=== PATIENT | female | born 1940 | race Caucasian/White ===

== ENCOUNTER 2023-06-27 13:03 | Outpatient (AMB) | payer MEDICARE, SELFPAY ==
[2023-06-27 13:31] LABS: Prothrombin Time Whole Bld POC 55.3 sec (11.1-13.5); ~PT, ~INR - Anti Coag Clinic 4.6 (0.9-1.1)
--- NOTE | 2023-06-27 13:38 | MHC.OFFVISCO ---
Intake Intake Visit Reasons: Anticoagulation Allergies No Known Allergies Allergy (Verified 06/27/23 13:11) Medication List - Last Reconciled 06/27/23 by Marjorie Suazo RN cholecalciferol (vitamin D3) 50 mcg PO DAILY clonazepam 0.5 mg PO BID PRN dextroamphetamine-amphetamine 30 mg 1 tab PO DAILY lisinopril 10 mg PO BID warfarin 5 mg PO Q OTHER DAY 90 days warfarin (Jantoven) 1MG TAB 4MG MWF/ 3MG X 4 DAYS orally every other day; Nursing Note unable to spend the complete amt of time with pt due to EMR chart complications INR 4.6 out of therapeutic range Medications and supplements reviewed Patient status: PT STATED that she adjusted her own dose to have INR closer to 3.0 she took a few days of 4mg instead of 3mg - she was advised to follow [facility] dosing. discrepency with dosing - In reviewing her chart order states she was taking 2mg several days and 3mg the others but dosing not complete on order either - pt just left clinic after visit was completed - t/c to pt to call [facility] back [facility] to discuss dosing - she stated she was concerned about INR being too low -- will suggest 3mg daily attempt to call pt x 3 and no answer will call her again friday to verify dosing that she took and what md gave Medications or supplements: updated states she has a 1 mg warfarin dose Diet: good - has diet confused which effects the INR Denies any signs and symptoms of bleeding or clotting or unusual bruising Bleeding, bruising, clotting discussed Nutritional guidance given: food list reviewed Dose: hold today then 3mg daily f/u 1 week - pt dosing sheet states 2mg x 2 days/ 4mg x 5 days - going by what she stated she was taking -and that is not congruent with what md referral states F/U INR Date : 1 week ?? Patient verbalizing understanding of instructions given. Anti-Coag Initial Assessment Social Hx Patient Tobacco Use Status: Never used Tobacco alcohol intake: never Coding Level of Care Code Est Patient Level 1 Diagnoses Current use of anticoagulant therapy Z79.01 Assessment & Plan Assessment & Plan (1) Current use of anticoagulant therapy: Code(s): Z79.01 - intermediate (current) use of 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 Medications: New warfarin See Protocol 1 mg orally 4MG X 4 DAYS/ 3MG X 3 DAYS; Discontinued warfarin on odd numbered days Discontinued Reason: Patient Completed Course 5 mg PO Q OTHER DAY 90 days 45 tabs 3RF
== END 2023-06-27 16:44 | disposition home or self-care (01) ==
LOC: HO.ACS 13:03
PROVIDERS: PCP Nurse Practitioner Acute Care; Visit Provider Internal Medicine
DX: Z79.01 Long term (current) use of anticoagulants (principal)

== ENCOUNTER → 2023-06-27 13:03 | Outpatient (BNVA) | payer MEDICARE, SELFPAY | PROVIDERS: PCP Nurse Practitioner Acute Care; Visit Provider Internal Medicine | DX: Z95.2 Presence of prosthetic heart valve (principal); Z51.81 Encounter for therapeutic drug level monitoring; Z79.01 Long term (current) use of anticoagulants | CPT/HCPCS: 85610; 99211 ==

== ENCOUNTER 2023-07-02 13:13 | Outpatient (AMB) | payer MEDICARE, SELFPAY ==
--- NOTE | 2023-07-02 13:16 | MHC.OFFVISCO ---
Intake Intake Visit Reasons: Anticoagulation Allergies No Known Allergies Allergy (Verified 07/02/23 13:16) Medication List - Last Reconciled 07/02/23 by Yris Hardy, RN cholecalciferol (vitamin D3) 50 mcg PO DAILY clonazepam 0.5 mg PO BID PRN dextroamphetamine-amphetamine 30 mg 1 tab PO DAILY lisinopril 10 mg PO BID warfarin See Protocol 1 mg orally 4MG X 4 DAYS/ 3MG X 3 DAYS; Nursing Note PT.DENIES ANY CP,SOB,DIET/MED CHANGES,FALLS OR SX OF BLEEDING. WILL CONTINUE 4MGM X3 3MGM X4 AND FOLLOW-UP IN 1 WEEK WILL BE SURE TO HAVE GREENS 2-3X WEEKLY GOOD UNDERSTANDING OF DOSING INSTR. 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
[2023-07-02 13:27] LABS: Prothrombin Time Whole Bld POC 34.9 sec (11.1-13.5); ~PT, ~INR - Anti Coag Clinic 2.9 (0.9-1.1)
== END 2023-07-02 13:45 | disposition home or self-care (01) ==
LOC: HO.ACS 13:13
PROVIDERS: PCP Nurse Practitioner Acute Care; Visit Provider Internal Medicine
DX: Z79.01 Long term (current) use of anticoagulants (principal)

== ENCOUNTER → 2023-07-02 13:13 | Outpatient (BNVA) | payer MEDICARE, SELFPAY | PROVIDERS: PCP Nurse Practitioner Acute Care; Visit Provider Internal Medicine | DX: Z95.2 Presence of prosthetic heart valve (principal); Z51.81 Encounter for therapeutic drug level monitoring; Z79.01 Long term (current) use of anticoagulants | CPT/HCPCS: 85610; 99211 ==

== ENCOUNTER 2023-07-10 11:10 | Outpatient (AMB) | payer MEDICARE, SELFPAY ==
[2023-07-10 11:19] LABS: ~PT, ~INR - Anti Coag Clinic 3.7 (0.9-1.1)
--- NOTE | 2023-07-10 11:19 | MHC.OFFVISCO ---
Intake Intake Visit Reasons: Anticoagulation Allergies No Known Allergies Allergy (Verified 07/10/23 11:10) Medication List - Last Reconciled 07/10/23 by Marjorie Suazo RN cholecalciferol (vitamin D3) 50 mcg PO DAILY clonazepam 0.5 mg PO BID PRN dextroamphetamine-amphetamine 30 mg 1 tab PO DAILY lisinopril 10 mg PO BID warfarin See Protocol 1 mg orally 4MG X 4 DAYS/ 3MG X 3 DAYS; Nursing Note INR 3.7?? out of therapeutic range Medications and supplements reviewed Patient status: Has med changes coming to bring med list next visit Medications or supplements: chk med list next week Diet: good Denies any signs and symptoms of bleeding or clotting or unusual bruising Bleeding, bruising, clotting discussed Nutritional guidance given: eat greens today then eat a mix of fruits and vegetables Dose: decrease to 2mg today, the 3mg x 6 days/ 4mg x 1 day F/U INR Date : 1 week ?? Patient verbalizing understanding of instructions given. Anti-Coag Initial Assessment Social Hx Patient Tobacco Use Status: Never used Tobacco alcohol intake: never Coding Level of Care Code Est Patient Level 1 Diagnoses Current use of anticoagulant therapy Z79.01 Assessment & Plan Assessment & Plan (1) Current use of anticoagulant therapy: Code(s): Z79.01 - halfway (current) use of 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
== END 2023-07-10 11:42 | disposition home or self-care (01) ==
LOC: HO.ACS 11:10
PROVIDERS: PCP Nurse Practitioner Acute Care; Visit Provider Internal Medicine
DX: Z79.01 Long term (current) use of anticoagulants (principal)

== ENCOUNTER → 2023-07-10 11:10 | Outpatient (BNVA) | payer MEDICARE, SELFPAY | PROVIDERS: PCP Nurse Practitioner Acute Care; Visit Provider Internal Medicine | DX: Z95.2 Presence of prosthetic heart valve (principal); Z51.81 Encounter for therapeutic drug level monitoring; Z79.01 Long term (current) use of anticoagulants | CPT/HCPCS: 85610; 99211 ==

== ENCOUNTER 2023-07-18 14:00 | Outpatient (AMB) | payer MEDICARE, SELFPAY ==
--- NOTE | 2023-07-18 14:12 | MHC.OFFVISCO ---
Intake Intake Visit Reasons: Anticoagulation Allergies No Known Allergies Allergy (Verified 07/18/23 14:05) Medication List - Last Reconciled 07/18/23 by Sylwia Molina RN cholecalciferol (vitamin D3) 50 mcg PO DAILY clonazepam 0.5 mg PO BID PRN dextroamphetamine-amphetamine 30 mg 1 tab PO DAILY lisinopril 10 mg PO BID warfarin See Protocol 1 mg orally 4MG X 4 DAYS/ 3MG X 3 DAYS; Nursing Note INR: 2.5- in therapeutic range of 2-3 Medications and supplements reviewed- states dextroamphetamine amphetamine is long acting- will call acs with mg medications reviewed with pt No changes in health, diet, medications, or supplements, Denies any signs and symptoms of bleeding or bruising or clotting. 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
[2023-07-18 14:13] LABS: Prothrombin Time Whole Bld POC 29.8 sec (11.1-13.5); ~PT, ~INR - Anti Coag Clinic 2.5 (0.9-1.1)
== END 2023-07-18 14:33 | disposition home or self-care (01) ==
LOC: HO.ACS 14:00
PROVIDERS: PCP Internal Medicine Cardiovascular Disease; Visit Provider Internal Medicine
DX: Z79.01 Long term (current) use of anticoagulants (principal)

== ENCOUNTER → 2023-07-18 14:00 | Outpatient (BNVA) | payer MEDICARE, SELFPAY | PROVIDERS: PCP Internal Medicine Cardiovascular Disease; Visit Provider Internal Medicine | DX: Z95.2 Presence of prosthetic heart valve (principal); Z79.01 Long term (current) use of anticoagulants; Z51.81 Encounter for therapeutic drug level monitoring | CPT/HCPCS: 85610; 99211 ==

== ENCOUNTER 2023-07-25 13:05 | Outpatient (AMB) | payer MEDICARE, SELFPAY ==
[2023-07-25 13:40] LABS: Prothrombin Time Whole Bld POC 45.1 sec (11.1-13.5); ~PT, ~INR - Anti Coag Clinic 3.8 (0.9-1.1)
--- NOTE | 2023-07-25 13:44 | MHC.OFFVISCO ---
Intake Intake Visit Reasons: Anticoagulation Allergies No Known Allergies Allergy (Verified 07/18/23 14:05) Medication List - Last Reconciled 07/25/23 by Chayito Pagan, RN ascorbate calcium (vitamin C) 500 mg PO DAILY cholecalciferol (vitamin D3) 50 mcg PO DAILY clonazepam 0.5 mg PO BID PRN folic acid 2 mg PO DAILY lisinopril 10 mg PO BID [vitamin B12 PO] [vitamin E PO] warfarin See Protocol 1 mg orally 4MG X 1 DAYS/ 3MG X 6DAYS; Nursing Note Amb to [facility] feeling well Medications and supplements reviewed pt has multiple questions re generic adderral and interaction with all my meds pt sts she stopped taking it lets say Friday (07/20) as she feels she is having reactions to it pt then went on to say that she has been having depression since she was a teen and now I am not on anything and I need it ( no warfarin interaction) pt referred to PCP or therapist who may be prescribing anti depressants Medications and supplements reviewed, updated EMAR with vitamins, needs to bring in actual dosing pt then expresses much concern over current INR range- sts it has always been 2.5-3.5 and not 2.0-3.0 reviewed at length with the pt that this was ordered by Dr. Hood and that it was verified by an [facility] nurse here on 07/18 encouraged pt to contact her cartridge loader in [place] with concerns and to keep Dr Hood (cartridge loader here) included noted that pt took 4mg on Friday and Friday on her own (not following our dosing) and reminded her of need to follow dosing recommendations and that is based on INR from Dr Hood pt had elevated INR 07/09 with weekly dosing modification Denies any signs and symptoms of bleeding, bruising, or clotting. INR 3.8 above therapeutic range Bleeding, bruising, discussed -fall risk, elevated INR After much discussion with pt and her concerns usual INR and INR drops too low with dosing changes pt agrees to take 2mg (vs 3) then usual 3mg until Friday 4mg Nutritional guidance given greens today and tomorrow then balance and be consistent F/U INR: 10 days Patient verbalizes understanding of instructions given Anti-Coag Initial Assessment Social Hx Patient Tobacco Use Status: Never used Tobacco alcohol intake: never Coding Level of Care Code Est Patient Level 2 Diagnoses Current use of anticoagulant therapy Z79.01 Time Spent (min) 30 Assessment & Plan Assessment & Plan (1) Current use of anticoagulant therapy: Code(s): Z79.01 - [facility] (current) use of 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
== END 2023-07-25 15:49 | disposition home or self-care (01) ==
LOC: HO.ACS 13:05
PROVIDERS: PCP Internal Medicine Cardiovascular Disease; Visit Provider Internal Medicine
DX: Z79.01 Long term (current) use of anticoagulants (principal)

== ENCOUNTER → 2023-07-25 13:05 | Outpatient (BNVA) | payer MEDICARE, SELFPAY | PROVIDERS: PCP Internal Medicine Cardiovascular Disease; Visit Provider Internal Medicine | DX: Z95.2 Presence of prosthetic heart valve (principal); Z79.01 Long term (current) use of anticoagulants; Z51.81 Encounter for therapeutic drug level monitoring | CPT/HCPCS: 85610; 99212 ==

== ENCOUNTER 2023-08-06 13:19 | Outpatient (AMB) | payer MEDICARE, SELFPAY ==
[2023-08-06 13:42] LABS: Prothrombin Time Whole Bld POC 35.3 sec (11.1-13.5); ~PT, ~INR - Anti Coag Clinic 2.9 (0.9-1.1)
--- NOTE | 2023-08-06 14:01 | MHC.OFFVISCO ---
Intake Intake Visit Reasons: Anticoagulation Allergies No Known Allergies Allergy (Verified 08/06/23 13:33) Medication List - Last Reconciled 08/06/23 by Yris Hardy RN ascorbate calcium (vitamin C) 500 mg PO DAILY cholecalciferol (vitamin D3) 50 mcg PO DAILY clonazepam 0.5 mg PO BID PRN folic acid 2 mg PO DAILY lisinopril 10 mg PO BID [vitamin B12 PO] [vitamin E PO] warfarin See Protocol 1 mg orally 4MG X 1 DAYS/ 3MG X 6DAYS; Nursing Note PT.TO START LEVAQUIN TODAY FOR COUGH. DOSE IS 250MGM DAILY FOR 2 WEEKS. DECREASE WEEKLY DOSE A BIT AND FOLLOW-UP IN 1 WEEK. PT.WILL BE SURE TO HAVE GREENS TODAY AND 2-3X WEEKLY VICTOR HUGO.WHILEON THE ANTIBIOTIC. SHE DENIES ANY CP,SOB OR SX OF BLEEDING. GOOD EUNDERSTANDING OF DOSING INSTR. 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
== END 2023-08-06 14:03 | disposition home or self-care (01) ==
LOC: HO.ACS 13:19
PROVIDERS: PCP Internal Medicine Cardiovascular Disease; Visit Provider Internal Medicine
DX: Z79.01 Long term (current) use of anticoagulants (principal)

== ENCOUNTER → 2023-08-06 13:19 | Outpatient (BNVA) | payer MEDICARE, SELFPAY | PROVIDERS: PCP Internal Medicine Cardiovascular Disease; Visit Provider Internal Medicine | DX: Z95.2 Presence of prosthetic heart valve (principal); Z79.01 Long term (current) use of anticoagulants; Z51.81 Encounter for therapeutic drug level monitoring | CPT/HCPCS: 85610; 99211 ==

== ENCOUNTER 2023-08-13 10:58 | Outpatient (AMB) | payer MEDICARE, SELFPAY ==
--- NOTE | 2023-08-13 11:17 | MHC.OFFVISCO ---
Intake Intake Visit Reasons: Anticoagulation Allergies No Known Allergies Allergy (Verified 08/13/23 11:03) Medication List - Last Reconciled 08/13/23 by Yris Hardy RN ascorbate calcium (vitamin C) 500 mg PO DAILY cholecalciferol (vitamin D3) 50 mcg PO DAILY clonazepam 0.5 mg PO BID PRN folic acid 2 mg PO DAILY lisinopril 10 mg PO BID [vitamin B12 PO] [vitamin E PO] warfarin See Protocol 1 mg orally 4MG X 1 DAYS/ 3MG X 6DAYS; Nursing Note PT.HAS RESTARTED ADDERALL (15MGM DAILY) AND STATES THAT SHE NOTES IMPROVEMENT WITH DEPRESSION PT.HAS 1 WEEK REMAINING ON LEVAQUIN WILL CONTINUE LOWER DOSE THIS WEEK UNTIL DONE WITH ANTIBIOTIC AND MEZP5DM-UP IN 1 WEEK. PT.DENIES ANY CP,SOB,FALLS OR SX OF BLEEDING. GOOD UNDERSTANDING OF DOSING INSTR. 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
[2023-08-13 14:39] LABS: Prothrombin Time Whole Bld POC 39.5 sec (11.1-13.5); ~PT, ~INR - Anti Coag Clinic 3.3 (0.9-1.1)
== END 2023-08-13 11:22 | disposition home or self-care (01) ==
LOC: HO.ACS 10:58
PROVIDERS: PCP Internal Medicine Cardiovascular Disease; Visit Provider Internal Medicine
DX: Z79.01 Long term (current) use of anticoagulants (principal)

== ENCOUNTER → 2023-08-13 10:58 | Outpatient (BNVA) | payer MEDICARE, SELFPAY | PROVIDERS: PCP Internal Medicine Cardiovascular Disease; Visit Provider Internal Medicine | DX: Z95.2 Presence of prosthetic heart valve (principal); Z79.01 Long term (current) use of anticoagulants; Z51.81 Encounter for therapeutic drug level monitoring | CPT/HCPCS: 85610; 99211 ==

== ENCOUNTER 2023-08-20 14:40 | Outpatient (AMB) | payer MEDICARE, SELFPAY ==
--- NOTE | 2023-08-20 14:53 | MHC.OFFVISCO ---
Intake Intake Visit Reasons: Anticoagulation Allergies No Known Allergies Allergy (Verified 08/13/23 11:03) Medication List - Last Reconciled 08/20/23 by Sylwia Molina RN ascorbate calcium (vitamin C) 500 mg PO DAILY cholecalciferol (vitamin D3) 50 mcg PO DAILY clonazepam 0.5 mg PO BID PRN dextroamphetamine-amphetamine 30 mg (Adderall) 30 mg PO DAILY folic acid 2 mg PO DAILY lisinopril 10 mg PO BID [vitamin B12 PO] [vitamin E PO] warfarin See Protocol 1 mg orally 4MG X 1 DAYS/ 3MG X 6DAYS; Nursing Note INR 1.6-?? out of therapeutic range of 2-3 Medications and supplements reviewed Patient status: pt to acs when her appt is alice, stating colonoscopy scheduled for 08/26/23 at [facility]- requesting order to hold warfarin. pt educated that order to hold warfarin comes from . 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 request for orders to hold warfarin and whether pt needs lovenox bridging. Phone number and fax number given to janna. she is aware date of proc. 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 Dr ramey office called- spoke to maria t. message for return call. return call from frank- she states dr ramey req pt to hold warfarin for 5 days with no lovenox bridge. Pt states has been taking 2mg daily- following an old dosing pattern. request for pt to follow acs dose management paper/instructions. Medications or supplements: finished antibiotics/levaquin today Diet: good Denies any signs and symptoms of bleeding or clotting or unusual bruising Bleeding, bruising, clotting discussed - aware at risk for clotting Nutritional guidance given: avoid greens when restarting warfarin Dose: 6mg today then 5 day hold, 4mg x 2 when restarting warfarin, then usual dosing 3mg x 6, 4mg x 1 F/U INR Date : 09/01/23? Patient verbalizing understanding of instructions given. 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
[2023-08-20 14:54] LABS: Prothrombin Time Whole Bld POC 19.4 sec (11.1-13.5); ~PT, ~INR - Anti Coag Clinic 1.6 (0.9-1.1)
== END 2023-08-20 15:50 | disposition home or self-care (01) ==
LOC: HO.ACS 14:40
PROVIDERS: PCP Internal Medicine Cardiovascular Disease; Visit Provider Internal Medicine
DX: Z79.01 Long term (current) use of anticoagulants (principal)

== ENCOUNTER → 2023-08-20 14:40 | Outpatient (BNVA) | payer MEDICARE, SELFPAY | PROVIDERS: PCP Internal Medicine Cardiovascular Disease; Visit Provider Internal Medicine | DX: Z95.2 Presence of prosthetic heart valve (principal); Z79.01 Long term (current) use of anticoagulants; Z51.81 Encounter for therapeutic drug level monitoring | CPT/HCPCS: 85610; 99212 ==

== ENCOUNTER → 2023-08-26 10:03 | Outpatient (BNVA) | payer MEDICARE, SELFPAY | PROVIDERS: PCP Internal Medicine Cardiovascular Disease; Visit Provider Internal Medicine ==

== ENCOUNTER 2023-08-27 13:57 | Outpatient (AMB) | payer MEDICARE, SELFPAY ==
[2023-08-27 14:10] LABS: Prothrombin Time Whole Bld POC 27.1 sec (11.1-13.5); ~PT, ~INR - Anti Coag Clinic 2.3 (0.9-1.1)
--- NOTE | 2023-08-27 14:21 | MHC.OFFVISCO ---
Intake Intake Visit Reasons: Anticoagulation Allergies No Known Allergies Allergy (Verified 08/27/23 14:05) Medication List - Last Reconciled 08/27/23 by Yris Hardy RN ascorbate calcium (vitamin C) 500 mg PO DAILY cholecalciferol (vitamin D3) 50 mcg PO DAILY clonazepam 0.5 mg PO BID PRN dextroamphetamine-amphetamine 30 mg (Adderall) 30 mg PO DAILY folic acid 2 mg PO DAILY lisinopril 10 mg PO BID [vitamin B12 PO] [vitamin E PO] warfarin See Protocol 1 mg orally 4MG X 1 DAYS/ 3MG X 6DAYS; Nursing Note COLONOSCOPY SCHED.FOR TODAY WAS POSTPONED. PT.DOES NOT KNOW WHEN TO BE RESCHEDULED. PT.DENIES ANY CP,SOB OR SX OF BLEEDING. RESUME 4MGM 1 DAY AND 3MGM 6 DAYS AND FOLLOW-UP IN 1 WEEK. GOOD UNDERSTANDING OF DOSING INSTR. 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
== END 2023-08-27 14:24 | disposition home or self-care (01) ==
LOC: HO.ACS 13:57
PROVIDERS: PCP Internal Medicine Cardiovascular Disease; Visit Provider Internal Medicine
DX: Z79.01 Long term (current) use of anticoagulants (principal)

== ENCOUNTER → 2023-08-27 13:57 | Outpatient (BNVA) | payer MEDICARE, SELFPAY | PROVIDERS: PCP Internal Medicine Cardiovascular Disease; Visit Provider Internal Medicine | DX: Z95.2 Presence of prosthetic heart valve (principal); Z51.81 Encounter for therapeutic drug level monitoring; Z79.01 Long term (current) use of anticoagulants | CPT/HCPCS: 85610; 99211 ==

== ENCOUNTER 2023-09-05 13:20 | Outpatient (AMB) | payer MEDICARE, SELFPAY ==
[2023-09-05 13:40] LABS: Prothrombin Time Whole Bld POC 31.8 sec (11.1-13.5); ~PT, ~INR - Anti Coag Clinic 2.6 (0.9-1.1)
--- NOTE | 2023-09-05 13:48 | MHC.OFFVISCO ---
Intake Intake Visit Reasons: Anticoagulation Allergies No Known Allergies Allergy (Verified 09/05/23 13:34) Medication List - Last Reconciled 09/05/23 by Marjorie Suazo RN ascorbate calcium (vitamin C) 500 mg PO DAILY cholecalciferol (vitamin D3) 50 mcg PO DAILY clonazepam 0.5 mg PO BID PRN dextroamphetamine-amphetamine 30 mg (Adderall) 30 mg PO DAILY folic acid 2 mg PO DAILY levofloxacin 250 mg PO DAILY lisinopril 10 mg PO BID [vitamin B12 PO] [vitamin E PO] warfarin See Protocol 1 mg orally 4MG X 1 DAYS/ 3MG X 6DAYS; Nursing Note INR: 2.6 in therapeutic range Medications and supplements reviewed No changes in health, diet, medications, or supplements, SHE STATES SHE MAY HAVE COLONOSCOPY DONE IN [place] NEAR WHERE HER SON LIVES, SHE WAS ENC TO HAVE A MEDICAL TEAM TO MANAGE HER CARE THERE INLCUDING THE WARFARIN SHOULD SHE DECIDE THAT OPTION Denies any signs and symptoms of bleeding or bruising or clotting. Bleeding, bruising, clotting discussed Nutritional guidance given - EAT A MIX OF FRUITS AND VEGETABLES Dose: 4MG X 1 DAY/ 3MG X 6 DAYS F/U INR: 2 WEEKS Patient verbalizes understanding of instructions given Anti-Coag Initial Assessment Social Hx Patient Tobacco Use Status: Never used Tobacco alcohol intake: never Coding Level of Care Code Est Patient Level 1 Diagnoses Current use of anticoagulant therapy Z79.01 Results AMB INR Fingerstick AMB INR Fingerstick 2.6 Last Edit by Marjorie Suazo RN on 09/05/23 13:40 manual entry delayed interfacing Assessment & Plan Assessment & Plan (1) Current use of anticoagulant therapy: 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
== END 2023-09-05 13:52 | disposition home or self-care (01) ==
LOC: HO.ACS 13:20
PROVIDERS: PCP Internal Medicine Cardiovascular Disease; Visit Provider Internal Medicine
DX: Z79.01 Long term (current) use of anticoagulants (principal)

== ENCOUNTER → 2023-09-05 13:20 | Outpatient (BNVA) | payer MEDICARE, SELFPAY | PROVIDERS: PCP Internal Medicine Cardiovascular Disease; Visit Provider Internal Medicine | DX: Z95.2 Presence of prosthetic heart valve (principal); Z79.01 Long term (current) use of anticoagulants; Z51.81 Encounter for therapeutic drug level monitoring | CPT/HCPCS: 85610; 99211 ==

== ENCOUNTER 2023-09-09 17:13 | Emergency (ER) | payer MEDICARE, SELFPAY ==
--- NOTE | ~2023-09-09 | CT_ITS ---
EXAMINATION: CT CERVICAL SPINE WITHOUT CONTRAST CLINICAL INFORMATION: Neck pain, abnormal x-ray. COMPARISON: None available. TECHNIQUE: 3 mm thin axial and reformatted 2 mm thin sagittal and coronal images of cervical spine were obtained without contrast. This CT examination was performed using dose optimization techniques as appropriate, variously including the following: *Automated exposure control *Adjustment of mA and/or kV according to patient size (this includes techniques or standardized protocols for targeted exams where dose is matched to indication/reason for exam; i.e. extremities or head) *Use of iterative reconstruction technique DLP: 274 mGy-cm FINDINGS: There is maintained cervical lordosis. The vertebral heights, alignment are normal. There is loss of C4-C5 disc height. Rest the disc heights are maintained normal. The craniovertebral junction and C1-C2 alignment is normal. At C3-C4 disc level there is diffuse bulge with posterior annular calcification indenting the ventral thecal sac but no spinal canal stenosis suspected. The neural foramina are patent. There is moderate left C5-C6 facet joint hypertrophy and arthropathy. There is no visible acute fracture, dislocation or subluxation seen. There is bilateral apical pleural thickening and parenchymal scarring. The tracheal airway is widely patent thyroid lobes are symmetrical and normal.. CT/CT cervical spine wo IV con IMPRESSION: 1. No acute fracture, dislocation or subluxation seen. 2. Degenerative disc changes C4-C5 disc level. Fleischner guidelines were followed.
[2023-09-09 17:15] VITALS: BP 133/85; PULSE 73; RESP 16; TEMP 36.5; O2SAT 97; BMI 22.7
--- NOTE | 2023-09-09 17:15 | ED_ITS ---
HPI - Neck Pain/Injury General Chief Complaint: Neck Pain/Injury Stated Complaint: neck pain, no injury Time Seen by Provider: 09/09/23 20:49 Source: patient Mode of arrival: ambulatory Limitations: no limitations History of Present Illness ED Provider: Dr. Raina Ibarra HPI Narrative: Patient comes to the emergency room complaining of chronic neck pain especially at night. Patient states that when she turns her neck sideways it hurts more. During the day does not hurt as much. Also, patient complaining of pain along the ?triangle of the back?. Patient denies any recent trauma. Patient states that she is scheduled to go to physical therapy in about a month. Patient denies any numbness or tingling radiating towards the arms. Related Data Home Medications ?Medication ?Instructions ?Recorded ?Confirmed clonazepam 0.5 mg tablet 0.5 mg PO BID PRN 03/31/20 09/05/23 warfarin 1 mg tablet 1 mg PO .COMPLEX 07/18/23 09/05/23 ascorbate calcium (vitamin C) 500 500 mg PO DAILY 07/25/23 09/05/23 mg tablet folic acid 1 mg tablet 2 mg PO DAILY 07/25/23 09/05/23 vitamin B12 PO 07/25/23 09/05/23 vitamin E PO 07/25/23 09/05/23 dextroamphetamine-amphetamine 30 30 mg PO DAILY 08/13/23 09/05/23 mg tablet (Adderall) Previous Rx's ?Medication ?Instructions ?Recorded cholecalciferol (vitamin D3) 50 50 mcg PO DAILY #30 caps 03/07/21 mcg (2,000 unit) capsule lisinopril 10 mg tablet 10 mg PO BID #90 tabs 08/28/21 acetaminophen 500 mg tablet 500 mg PO Q6H PRN fever or pain 09/09/23 #20 tabs cyclobenzaprine 5 mg tablet 5 mg PO BEDTIME PRN muscle spasm 09/09/23 #10 tabs Allergies Allergy/AdvReac Type Severity Reaction Status Date / Time No Known Allergies Allergy Verified 09/09/23 17:16 Review of Systems Review of Systems: Constitutional : No Weight loss, No Fever, No Chills, No Night Sweats, No Fatigue, No Malaise ENT/Mouth : No Hearing loss, No Ear Pain, No Nasal Congestion, No Sinus Pain, No Hoarseness, No sore throat, No Rhinorrhea, No Swallowing Difficulty Eyes: No Eye Pain, No Swelling, No Redness, No Foreign Body, No Discharge, No Vision Changes Cardiovascular : No Chest Pain, No SOB, No Dyspnea on Exertion, No Orthopnea, No Edema, No Palpitations Respiratory : No Cough, No Sputum, No Wheezing, No Smoke Exposure, No Dyspnea Gastrointestinal : No Nausea, No Vomiting, No Diarrhea, No Constipation, No abdominal Pain, No Hematochezia, No Melena Genitourinary : no irregular bleeding, No Dysuria, No Urinary Frequency, No Hematuria, No Urinary Incontinence, No Urgency, No Flank Pain, No Urinary Flow Changes, No Hesitancy Musculoskeletal : Complaining of chronic neck pain with neck rotation, not with flexion or extension, chronic back spasms No joint pain, No Myalgias, No Joint Swelling Skin : No Skin Lesions, No rash Neuro : No Weakness, No Numbness, No Paresthesias, No Loss of Consciousness, No Dizziness, No Headache Psych : No Anxiety/Panic, No Depression, No SI/HI/AH/VH, No Social Issues, Heme/Lymph: No Bruising, No Bleeding,No Lymphadenopathy Endocrine : No Polyuria, No Polydipsia, No Temperature Intolerance PMFSH Past Medical History Medical History Current use of anticoagulant therapy HTN (hypertension) Rash Osteoporosis Cataracts, bilateral Depression Anxiety Dyslipidemia Pancreatic cyst Benign essential hypertension Surgical History (Updated 06/27/23 @ 13:34 by Marjorie Suazo RN) Aortic valve replaced History of cataract surgery Hx of prosthetic aortic valve replacement History of aortic valve repair History of bronchoscopy Hx of breast biopsy Family History Family History Father CVD (cardiovascular disease) Mother Stroke Sister Colon cancer Brother Bladder cancer Maternal Grandmother No problems noted. Paternal Grandmother Stroke Family/Other Heroin addiction Other Mental health problem Substance abuse Social History Social History Housing: House Alcohol intake: never Patient Tobacco Use Status: Never used Tobacco Smoked in Last 30 Days: No Second Hand Smoke Exposure: Yes Use of substances other than those prescribed or required for medical reasons: No Advance Directives: No Advance Directives Information Provided: No Do you have a plan to hurt others: No Plan service: No Current occupational status: retired Physical Exam Vital Signs: Vital Signs: Last Vital Signs Temp 97.2 F 09/09/23 19:17 Pulse 61 09/09/23 19:17 Resp 16 09/09/23 19:17 BP 140/68 H 09/09/23 19:17 Pulse Ox 99 09/09/23 19:17 O2 Del Method Room Air 09/09/23 19:17 BMI result Body Mass Index 22.7 Const: Other: Appearance: Alert. Oriented X3. No acute distress. Eyes: Pupils equal, round and reactive to light. ENT: Pharynx normal. Neck: Normal inspection. Neck supple. No lymph nodes noted. No crepitus, no pain to palpation over the cervical spine CVS: Normal heart rate and rhythm. Pulses normal. Normal S1 and S2 Respiratory: No respiratory distress. Breath sounds normal. No Wheezing. No rales Abdomen: Soft and nontender. No rigidity. No distention. Skin: Skin warm and dry. Normal skin color. Normal skin turgor. Back: Palpable spasms along the bilateral trapezius muscles Extremities: No lower extremity edema. No Lacerations. No Rash Neuro: Oriented X 3. No motor deficit. No sensory deficit. Moving all extremities. No slurred speech. CN 2 through 12 grossly intact Psych: calm, cooperative, normal affect Course Course Course Narrative: This is a Rapid Medical Examination (RME) performed by Eliseo Campbell PA-C in triage. Full HPI, ROS, assessment and treatment plan per primary provider in the Main ED. 82 yo female with history of aortic stenosis s/p mechanical aortic valve replacement in 2002 on Coumadin, osteoporosis, lumbar degenerative disc disease, lung cancer who presents to the ER from [facility] for evaluation of right sided neck pain that has been worsening for the last 1 month. Per report from pain was in the neck and radiated to the jaw. Patient denies radiation of the pain. She reports the pain in the neck is worse with movement of her head. Had x-rays of neck that showed disc issues. Plan: low clinical suspicion for cardiac etiology, dissection. ct c-spine Medical Decision Making Medical Decision Making MDM Narrative: My interpretation of CT scan of the spine, no obvious fracture. Radiology report: At C3 C4 disc levels there is diffuse bulge with posterior annular calcification -I discussed the physical exam and imaging with the patient, patient has 2 conditions, 1 is the muscular spasms, 2nd condition is the bulging discs. -patient declined anything stronger than Tylenol. Agrees to muscle relaxants to be taken at bedtime when she is already in bed to avoid falls Differential Diagnosis Differential Diagnoses: The differential diagnosis associated with the presentation includes (As above) Independent Interpretation I performed an independent interpretation of an: CT Scan Radiology Impression Discussion of test interpretation with radiology: I have reviewed the radiologist's reading. Radiologist Impression: FINDINGS: There is maintained cervical lordosis. The vertebral heights, alignment are normal. There is loss of C4-C5 disc height. Rest the disc heights are maintained normal. The craniovertebral junction and C1-C2 alignment is normal. At C3-C4 disc level there is diffuse bulge with posterior annular calcification indenting the ventral thecal sac but no spinal canal stenosis suspected. The neural foramina are patent. There is moderate left C5-C6 facet joint hypertrophy and arthropathy. There is no visible acute fracture, dislocation or subluxation seen. There is bilateral apical pleural thickening and parenchymal scarring. The tracheal airway is widely patent thyroid lobes are symmetrical and normal.. CT/CT cervical spine wo IV con IMPRESSION: 1. No acute fracture, dislocation or subluxation seen. 2. Degenerative disc changes C4-C5 disc level. Discharge Plan Discharge Clinical Impression: Bulging of cervical intervertebral disc, Spasm of both trapezius muscles Patient Disposition: Home, Self-Care Instructions: Cervical Disc Herniation (ED), Muscle Spasm (ED) Additional Instructions: Please follow-up with your primary care physician tomorrow. If you have any worsening or new symptoms, please return to the emergency room or call 911 Prescriptions: New cyclobenzaprine 5 mg tablet 5 mg PO BEDTIME PRN (Reason: muscle spasm) Qty: 10 0RF acetaminophen 500 mg tablet 500 mg PO Q6H PRN (Reason: fever or pain) Qty: 20 0RF No Action cholecalciferol (vitamin D3) 50 mcg (2,000 unit) capsule 50 mcg PO DAILY Qty: 30 0RF lisinopril 10 mg tablet 10 mg PO BID Qty: 90 1RF clonazepam 0.5 mg tablet 0.5 mg PO BID PRN warfarin 1 mg tablet 1 mg PO .COMPLEX Protocol: Dose Management Condition: Friday (Week One) Dose/Route: 3 mg Instruction: 3 x 1 mg tablets Condition: Friday Dose/Route: 3 mg Instruction: 3 x 1 mg tablets Condition: Friday Dose/Route: 3 mg Instruction: 3 x 1 mg tablets Condition: Friday Dose/Route: 3 mg Instruction: 3 x 1 mg tablets Condition: Dose/Route: 3 mg Instruction: 3 x 1 mg tablets Condition: Friday Dose/Route: 4 mg Instruction: 4 x 1 mg tablets Condition: Friday Dose/Route: 3 mg Instruction: 3 x 1 mg tablets Condition: Friday (Week Two) Dose/Route: 3 mg Instruction: 3 x 1 mg tablets Condition: Friday Dose/Route: 3 mg Instruction: 3 x 1 mg tablets Condition: Friday Dose/Route: 3 mg Instruction: 3 x 1 mg tablets Condition: Friday Dose/Route: 3 mg Instruction: 3 x 1 mg tablets Condition: Dose/Route: 3 mg Instruction: 3 x 1 mg tablets Condition: Friday Dose/Route: 4 mg Instruction: 4 x 1 mg tablets Condition: Friday Dose/Route: 3 mg Instruction: 3 x 1 mg tablets Protocol Text: Adjustment Start Date: Friday09/05/23 INR Value: 2.6 INR Date: 09/05/23 Recheck Date: 09/19/23 Additional Instructions: REVIEW FOOD LIST WEEKLY, EAT A MIX OF FRUITS AND VEGETABLES Rx Instructions: 1 mg orally 4MG X 1 DAYS/ 3MG X 6DAYS; vitamin B12 PO folic acid 1 mg tablet 2 mg PO DAILY ascorbate calcium (vitamin C) 500 mg tablet 500 mg PO DAILY vitamin E PO dextroamphetamine-amphetamine [Adderall] 30 mg tablet 30 mg PO DAILY Print Language: Upper Sorbian
[2023-09-09 19:17] VITALS: BP 140/68; PULSE 61; RESP 16; TEMP 36.2; O2SAT 99
[2023-09-09 22:13] VITALS: BP 140/68; PULSE 61; RESP 16; TEMP 36.2; O2SAT 99
== END 2023-09-09 22:14 | disposition home or self-care (01) ==
PROVIDERS: Emergency Provider Emergency Medicine
DX: M50.321 Other cervical disc degeneration at C4-C5 level (principal); M62.830 Muscle spasm of back
CPT/HCPCS: 72125; 99284

== ENCOUNTER 2023-09-19 14:10 | Outpatient (AMB) | payer MEDICARE, SELFPAY ==
[2023-09-19 14:15] LABS: Prothrombin Time Whole Bld POC 33.5 sec (11.1-13.5); ~PT, ~INR - Anti Coag Clinic 2.8 (0.9-1.1)
--- NOTE | 2023-09-19 14:15 | MHC.OFFVISCO ---
Intake Intake Visit Reasons: Anticoagulation Allergies No Known Allergies Allergy (Verified 09/19/23 14:10) Medication List - Last Reconciled 09/19/23 by Sylwia Molina RN acetaminophen 500 mg PO Q6H PRN ascorbate calcium (vitamin C) 500 mg PO DAILY cholecalciferol (vitamin D3) 50 mcg PO DAILY clonazepam 0.5 mg PO BID PRN cyclobenzaprine 5 mg PO BEDTIME PRN dextroamphetamine-amphetamine 30 mg (Adderall) 30 mg PO DAILY folic acid 2 mg PO DAILY lisinopril 10 mg PO BID [vitamin B12 PO] [vitamin E PO] warfarin See Protocol 1 mg orally 4MG X 1 DAYS/ 3MG X 6DAYS; Nursing Note INR: 2.8- in therapeutic range of 2-3 Medications and supplements reviewed No changes in health, diet, medications, or supplements, Denies any signs and symptoms of bleeding or bruising or clotting. Bleeding, bruising, clotting discussed Nutritional guidance given Dose: 3mg x 6, 4mg x 1 F/U INR: 2 weeks Patient verbalizes understanding of instructions given pt states colonoscopy possibly nov Anti-Coag Initial Assessment Social Hx Patient Tobacco Use Status: Never used Tobacco alcohol intake: never Alcohol intake frequency: does not drink Coding Level of Care Code Est Patient Level 1 Diagnoses Current use of anticoagulant therapy Z79.01 Assessment & Plan Assessment & Plan (1) Current use of anticoagulant therapy: Code(s): Z79.01 - group home (current) use of 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
== END 2023-09-19 14:20 | disposition home or self-care (01) ==
LOC: HO.ACS 14:10
PROVIDERS: PCP Internal Medicine Cardiovascular Disease; Visit Provider Internal Medicine
DX: Z79.01 Long term (current) use of anticoagulants (principal)

== ENCOUNTER → 2023-09-19 14:10 | Outpatient (BNVA) | payer MEDICARE, SELFPAY | PROVIDERS: PCP Internal Medicine Cardiovascular Disease; Visit Provider Internal Medicine | DX: Z95.2 Presence of prosthetic heart valve (principal); Z79.01 Long term (current) use of anticoagulants; Z51.81 Encounter for therapeutic drug level monitoring | CPT/HCPCS: 85610; 99211 ==

== ENCOUNTER 2023-10-09 13:01 | Outpatient (AMB) | payer MEDICARE, SELFPAY ==
--- NOTE | 2023-10-09 13:14 | MHC.OFFVISCO ---
Intake Intake Visit Reasons: Anticoagulation Allergies No Known Allergies Allergy (Verified 09/19/23 14:10) Nursing Note INR: 2.7 in therapeutic range Medications and supplements reviewed No changes in health, diet, medications, or supplements, Denies any signs and symptoms of bleeding or bruising or clotting. Bleeding, bruising, clotting discussed Nutritional guidance given Dose: 4MG X 1 DAYS / 3MG X 6 DAYS F/U INR: 3 WEEKS Patient verbalizes understanding of instructions given Anti-Coag Initial Assessment Social Hx Patient Tobacco Use Status: Never used Tobacco alcohol intake: never Alcohol intake frequency: does not drink Coding Level of Care Code Est Patient Level 1 Diagnoses Current use of anticoagulant therapy Z79.01 Results AMB INR Fingerstick AMB INR Fingerstick 2.7 Last Edit by Marjorie Suazo RN on 10/09/23 13:16 MANUAL ENTRY Assessment & Plan Assessment & Plan (1) Current use of anticoagulant therapy: 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
[2023-10-09 13:15] LABS: Prothrombin Time Whole Bld POC 32.4 sec (11.1-13.5); ~PT, ~INR - Anti Coag Clinic 2.7 (0.9-1.1)
== END 2023-10-09 13:30 | disposition home or self-care (01) ==
LOC: HO.ACS 13:01
PROVIDERS: PCP Internal Medicine Cardiovascular Disease; Visit Provider Internal Medicine
DX: Z79.01 Long term (current) use of anticoagulants (principal)

== ENCOUNTER → 2023-10-09 13:01 | Outpatient (BNVA) | payer MEDICARE, SELFPAY | PROVIDERS: PCP Internal Medicine Cardiovascular Disease; Visit Provider Internal Medicine | DX: Z95.2 Presence of prosthetic heart valve (principal); Z79.01 Long term (current) use of anticoagulants; Z51.81 Encounter for therapeutic drug level monitoring | CPT/HCPCS: 85610; 99211 ==

== ENCOUNTER 2023-10-31 13:16 | Outpatient (AMB) | payer MEDICARE, SELFPAY ==
[2023-10-31 13:27] LABS: Prothrombin Time Whole Bld POC 32.9 sec (11.1-13.5); ~PT, ~INR - Anti Coag Clinic 2.7 (0.9-1.1)
--- NOTE | 2023-10-31 13:35 | MHC.OFFVISCO ---
Intake Intake Visit Reasons: Anticoagulation Allergies No Known Allergies Allergy (Verified 10/31/23 13:21) Medication List - Last Reconciled 10/31/23 by Yris Hardy RN acetaminophen 500 mg PO Q6H PRN ascorbate calcium (vitamin C) 500 mg PO DAILY cholecalciferol (vitamin D3) 50 mcg PO DAILY clonazepam 0.5 mg PO BID PRN cyclobenzaprine 5 mg PO BEDTIME PRN dextroamphetamine-amphetamine 30 mg (Adderall) 30 mg PO DAILY folic acid 2 mg PO DAILY lisinopril 10 mg PO BID [vitamin B12 PO] [vitamin E PO] warfarin See Protocol 1 mg orally 4MG X 1 DAYS/ 3MG X 6DAYS; Nursing Note NO CP,SOB,DIET/MED CHANGES,FALLS OR SX OF BLEEDING. CONTINUE PRESENT DOSE AND FOLLOW-UP IN 4 WEEKS.'GOOD UNDERSTANDING OF DOSING INSTR. 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
== END 2023-10-31 13:38 | disposition home or self-care (01) ==
LOC: HO.ACS 13:16
PROVIDERS: PCP Internal Medicine Cardiovascular Disease; Visit Provider Internal Medicine
DX: Z79.01 Long term (current) use of anticoagulants (principal)

== ENCOUNTER → 2023-10-31 13:16 | Outpatient (BNVA) | payer MEDICARE, SELFPAY | PROVIDERS: PCP Internal Medicine Cardiovascular Disease; Visit Provider Internal Medicine | DX: Z95.2 Presence of prosthetic heart valve (principal); Z79.01 Long term (current) use of anticoagulants; Z51.81 Encounter for therapeutic drug level monitoring | CPT/HCPCS: 85610; 99211 ==

== ENCOUNTER 2023-11-18 13:55 | Outpatient (AMB) | payer MEDICARE, SELFPAY ==
[2023-11-18 14:41] LABS: ~PT, ~INR - Anti Coag Clinic 2.4 (0.9-1.1)
--- NOTE | 2023-11-18 14:42 | MHC.OFFVISCO ---
Intake Intake Visit Reasons: Anticoagulation Allergies No Known Allergies Allergy (Verified 11/18/23 14:31) Medication List - Last Reconciled 11/18/23 by Sylwia Molina RN acetaminophen 500 mg PO Q6H PRN ascorbate calcium (vitamin C) 500 mg PO DAILY cholecalciferol (vitamin D3) 50 mcg PO DAILY clonazepam 0.5 mg PO BID PRN cyclobenzaprine 5 mg PO BEDTIME PRN dextroamphetamine-amphetamine 30 mg (Adderall) 30 mg PO DAILY folic acid 2 mg PO DAILY lisinopril 10 mg PO BID [vitamin B12 PO] [vitamin E PO] warfarin See Protocol 1 mg orally 4MG X 1 DAYS/ 3MG X 6DAYS; Nursing Note INR: 2.4- in therapeutic range of 2-3 Medications and supplements reviewed- pt states was taking 15mg of adderall, now 30mg. no interaction with warfarin per micromedex No changes in health, diet, medications, or supplements, Denies any signs and symptoms of bleeding or bruising or clotting. Bleeding, bruising, clotting discussed Nutritional guidance given - appetite less Dose: 3mg x 6 ,4mg x 1 F/U INR: 1 week Patient verbalizes understanding of instructions given pt to acs acompanied by son vinay. pt states at [facility] with covid x 5 days. pt treated with remdesivir in the hosp- which can raise inr per [facility] pt states [facility] held warfarin yesterday for inr of 3.7. pt c.o occ cough, clear phlegm Anti-Coag Initial Assessment Social Hx Patient Tobacco Use Status: Never used Tobacco alcohol intake: never Alcohol intake frequency: does not drink Coding Level of Care Code Est Patient Level 1 Diagnoses Current use of anticoagulant therapy Z79.01 Assessment & Plan Assessment & Plan (1) Current use of anticoagulant therapy: Code(s): Z79.01 - [facility] (current) use of 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
== END 2023-11-18 15:04 | disposition home or self-care (01) ==
LOC: HO.ACS 13:55
PROVIDERS: PCP Internal Medicine Cardiovascular Disease; Visit Provider Internal Medicine
DX: Z79.01 Long term (current) use of anticoagulants (principal)

== ENCOUNTER → 2023-11-18 13:55 | Outpatient (BNVA) | payer MEDICARE, SELFPAY | PROVIDERS: PCP Internal Medicine Cardiovascular Disease; Visit Provider Internal Medicine | DX: Z95.2 Presence of prosthetic heart valve (principal); Z79.01 Long term (current) use of anticoagulants; Z51.81 Encounter for therapeutic drug level monitoring | CPT/HCPCS: 85610; 99211 ==

== ENCOUNTER 2023-11-25 14:22 | Outpatient (REF) | payer MEDICARE, SELFPAY ==
[2023-11-25 15:03] LABS: Prothrombin Time 65.8 SEC (10.9-12.4)
[2023-11-25 15:07] LABS: INTERNATIONAL NORM RATIO 5.6 (0.9-1.1)
== END 2023-11-25 14:23 | disposition home or self-care (01) ==
LOC: HO.LAB 14:22
PROVIDERS: Visit Provider Internal Medicine
DX: Z95.2 Presence of prosthetic heart valve (principal); Z51.81 Encounter for therapeutic drug level monitoring; Z79.01 Long term (current) use of anticoagulants
CPT/HCPCS: 36415; 85610; 99212

== ENCOUNTER 2023-11-25 14:25 | Outpatient (AMB) | payer MEDICARE, SELFPAY ==
--- NOTE | 2023-11-25 15:00 | MHC.OFFVISCO ---
Intake Intake Visit Reasons: Anticoagulation Allergies No Known Allergies Allergy (Verified 11/25/23 14:16) Medication List - Last Reconciled 11/25/23 by Chaytio Moctezuma RN acetaminophen 500 mg PO Q6H PRN ascorbate calcium (vitamin C) 500 mg PO DAILY cholecalciferol (vitamin D3) 50 mcg PO DAILY clonazepam 0.5 mg PO BID PRN cyclobenzaprine 5 mg PO BEDTIME PRN dextroamphetamine-amphetamine 30 mg (Adderall) 30 mg PO DAILY folic acid 2 mg PO DAILY lisinopril 10 mg PO BID [vitamin B12 PO] [vitamin E PO] warfarin See Protocol 1 mg orally 4MG X 1 DAYS/ 3MG X 6DAYS; Nursing Note Pt to [facility] accompanied by daughter. Gait slow/weak with help of daughter. INR 5.8 on ACS poc. Lab draw 5.6 out of therapeutic range of 2-3. Pt s/p covid with a 5 day hospital stay at [facility] d/c'd 11/17/23 per daughter. Received remdesivir in hospital which can raise INR. Also taking tylenol for back pain. Pt has congested sounding cough with productive yellow sputum per pt. Medications and supplements reviewed Patient status: weak/pale Medications or supplements: no changes Diet: less of appetite since having covid Denies any signs and symptoms of bleeding or clotting or unusual bruising Bleeding, bruising, clotting discussed Nutritional guidance given: to have a serving of greens today and tomorrow. Food list reviewed and given to daughter Patti. Dose: hold warfarin today and tomorrow then to re-test F/U INR Date : 11/27/23?? Patient verbalizing understanding of instructions given. T/C to federal appellate law clerk Dr Jose Cruz s office. Spoke to Sabrina and INR value with dosing plan and next re-test date relayed to her. 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
[2023-11-27 07:41] LABS: Prothrombin Time Whole Bld POC 69.3 sec (11.1-13.5); ~PT, ~INR - Anti Coag Clinic 5.8 (0.9-1.1)
== END 2023-11-25 16:07 | disposition home or self-care (01) ==
LOC: HO.ACS 14:25
PROVIDERS: PCP Internal Medicine Cardiovascular Disease; Visit Provider Internal Medicine
DX: Z79.01 Long term (current) use of anticoagulants (principal)

== ENCOUNTER 2023-11-27 14:39 | Outpatient (AMB) | payer MEDICARE, SELFPAY ==
--- NOTE | 2023-11-27 14:33 | MHC.OFFVISCO ---
Intake Intake Visit Reasons: Anticoagulation Allergies No Known Allergies Allergy (Verified 11/27/23 14:43) Medication List - Last Reconciled 11/27/23 by Chayito Moctezuma RN acetaminophen 500 mg PO Q6H PRN ascorbate calcium (vitamin C) 500 mg PO DAILY cholecalciferol (vitamin D3) 50 mcg PO DAILY clonazepam 0.5 mg PO BID PRN cyclobenzaprine 5 mg PO BEDTIME PRN dextroamphetamine-amphetamine 30 mg (Adderall) 30 mg PO DAILY folic acid 2 mg PO DAILY lisinopril 10 mg PO BID [vitamin B12 PO] [vitamin E PO] warfarin See Protocol 1 mg orally 4MG X 1 DAYS/ 3MG X 6DAYS; Nursing Note Pt to [facility] accompanied by daughter. Gait is slow. C/o back discomfort. INR: 2.5 in therapeutic range of 2-3 after a 2 day hold for an INR of 5.6 on 11/25/23 Pt had an appt with nakita WILLIAM in [place] yesterday and is scheduled for a bronchoscopy on 12/04/23. Medications and supplements reviewed: Pt states she has a prescription for a nebulizer but has not picked it up yet and doesn't know the name of med. No changes in health, diet, medications, or supplements from 2 days ago. Denies any signs and symptoms of bleeding or bruising or clotting. Bleeding, bruising, clotting discussed Nutritional guidance given Dose: resume warfarin at 3mg daily but decrease to 2mg for one day, 12/01/23 because pt taking tylenol 2 tabs bid for back pain and also in prep for bronchoscopy. Daughter states they will be receiving instructions for warfarin pre bronch from that MD's office and will let ACS know. F/U INR: in 4 days on 12/01/23 Patient and daughter verbalizes understanding of instructions given Anti-Coag Initial Assessment Social Hx Patient Tobacco Use Status: Never used Tobacco alcohol intake: never Alcohol intake frequency: does not drink Coding Level of Care Code Est Patient Level 1 Diagnoses Current use of anticoagulant therapy Z79.01 Assessment & Plan Assessment & Plan (1) Current use of anticoagulant therapy: Code(s): Z79.01 - [facility] (current) use of 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
[2023-11-27 14:49] LABS: Prothrombin Time Whole Bld POC 30.5 sec (11.1-13.5); ~PT, ~INR - Anti Coag Clinic 2.5 (0.9-1.1)
== END 2023-11-27 15:13 | disposition home or self-care (01) ==
LOC: HO.ACS 14:39
PROVIDERS: PCP Internal Medicine Cardiovascular Disease; Visit Provider Internal Medicine
DX: Z79.01 Long term (current) use of anticoagulants (principal)

== ENCOUNTER → 2023-11-27 14:39 | Outpatient (BNVA) | payer MEDICARE, SELFPAY | PROVIDERS: PCP Internal Medicine Cardiovascular Disease; Visit Provider Internal Medicine | DX: Z95.2 Presence of prosthetic heart valve (principal); Z79.01 Long term (current) use of anticoagulants; Z51.81 Encounter for therapeutic drug level monitoring | CPT/HCPCS: 85610; 99211 ==

== ENCOUNTER 2023-12-01 14:14 | Outpatient (AMB) | payer MEDICARE, SELFPAY ==
[2023-12-01 14:39] LABS: ~PT, ~INR - Anti Coag Clinic 2.9 (0.9-1.1)
--- NOTE | 2023-12-01 14:45 | MHC.OFFVISCO ---
Intake Intake Visit Reasons: Anticoagulation Allergies No Known Allergies Allergy (Verified 11/27/23 14:43) Nursing Note INR: 2.9 in therapeutic range Medications and supplements reviewed No changes in health, diet, medications, or supplements, Denies any signs and symptoms of bleeding or bruising or clotting. Bleeding, bruising, clotting discussed Nutritional guidance given- appetite ok, considering a protein shake Dose: 2mg x 1 day/ 3mg x 6 days F/U INR: 1 week Patient verbalizes understanding of instructions given T/C TO [facility] REGARDING BRONCHOSCOPY 12/04/23 SPOKE WITH SANGEETHA CURVE SAW OPERATOR - SHE STATED PT DOES NOT NEED TO STOP WARFARIN - BUT HAVE INR LESS THAN 3.0 AND HAVE INR 12/03/23 CALL TO PT SON KENDRA INSTRUCTIONS GIVEN WITH READ BACK. Anti-Coag Initial Assessment Social Hx Patient Tobacco Use Status: Never used Tobacco alcohol intake: never Alcohol intake frequency: does not drink Coding Level of Care Code Est Patient Level 1 Diagnoses Current use of anticoagulant therapy Z79.01 Assessment & Plan Assessment & Plan (1) Current use of anticoagulant therapy: Code(s): Z79.01 - halfway (current) use of 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
== END 2023-12-01 16:15 | disposition home or self-care (01) ==
LOC: HO.ACS 14:14
PROVIDERS: PCP Internal Medicine Cardiovascular Disease; Visit Provider Internal Medicine
DX: Z79.01 Long term (current) use of anticoagulants (principal)

== ENCOUNTER → 2023-12-01 14:14 | Outpatient (BNVA) | payer MEDICARE, SELFPAY | PROVIDERS: PCP Internal Medicine Cardiovascular Disease; Visit Provider Internal Medicine | DX: Z95.2 Presence of prosthetic heart valve (principal); Z79.01 Long term (current) use of anticoagulants; Z51.81 Encounter for therapeutic drug level monitoring | CPT/HCPCS: 85610; 99211 ==

== ENCOUNTER 2023-12-03 11:14 | Outpatient (AMB) | payer MEDICARE, SELFPAY ==
[2023-12-03 11:30] LABS: Prothrombin Time Whole Bld POC 29.4 sec (11.1-13.5); ~PT, ~INR - Anti Coag Clinic 2.4 (0.9-1.1)
--- NOTE | 2023-12-03 11:48 | MHC.OFFVISCO ---
Intake Intake Visit Reasons: Anticoagulation Allergies No Known Allergies Allergy (Verified 12/03/23 11:24) Medication List - Last Reconciled 12/03/23 by Yris Hardy RN acetaminophen 500 mg PO Q6H PRN ascorbate calcium (vitamin C) 500 mg PO DAILY cholecalciferol (vitamin D3) 50 mcg PO DAILY clonazepam 0.5 mg PO BID PRN cyclobenzaprine 5 mg PO BEDTIME PRN dextroamphetamine-amphetamine 30 mg (Adderall) 30 mg PO DAILY folic acid 2 mg PO DAILY lisinopril 10 mg PO BID [vitamin B12 PO] [vitamin E PO] warfarin See Protocol 1 mg orally 4MG X 1 DAYS/ 3MG X 6DAYS; Nursing Note PT.TO HAVE BRONCHOSCOPY TOMORROW AT [facility]. THERE IS NO WARFARIN HOLD OR LOVENOX BRIDGE. INR TO BE < 3.0 INR CALLED AND FAXED TO REQUESTED. PT.WILL CONTINUE PRESENT WARFARIN DOSING AFTER PROCEDURE OR DIRECTED BY MD AFTER BRONCH. SON BELIEVES THAT PT.WILL BE DAY STAY ONLY. FOLLOW-UP HERE ON 12/08. SON AND PT.VERB.GOOD UNDERSTANDING OF DOSING INSTR. PT.TO GO TO [place] ON 12/09. 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
== END 2023-12-03 11:57 | disposition home or self-care (01) ==
LOC: HO.ACS 11:14
PROVIDERS: PCP Internal Medicine Cardiovascular Disease; Visit Provider Internal Medicine
DX: Z79.01 Long term (current) use of anticoagulants (principal)

== ENCOUNTER → 2023-12-03 11:14 | Outpatient (BNVA) | payer MEDICARE, SELFPAY | PROVIDERS: PCP Internal Medicine Cardiovascular Disease; Visit Provider Internal Medicine | DX: Z95.2 Presence of prosthetic heart valve (principal); Z79.01 Long term (current) use of anticoagulants; Z51.81 Encounter for therapeutic drug level monitoring | CPT/HCPCS: 85610; 99211 ==

== ENCOUNTER → 2023-12-05 16:12 | Outpatient (BNVA) | payer MEDICARE, SELFPAY | PROVIDERS: PCP Internal Medicine Cardiovascular Disease; Visit Provider Internal Medicine ==

== ENCOUNTER 2023-12-09 11:14 | Outpatient (AMB) | payer MEDICARE, SELFPAY ==
[2023-12-09 11:21] LABS: Prothrombin Time Whole Bld POC 35.2 sec (11.1-13.5); ~PT, ~INR - Anti Coag Clinic 2.9 (0.9-1.1)
--- NOTE | 2023-12-09 11:44 | MHC.OFFVISCO ---
Intake Intake Visit Reasons: Anticoagulation Allergies No Known Allergies Allergy (Verified 12/09/23 11:14) Medication List - Last Reconciled 12/09/23 by Chayito Moctezuma, RN acetaminophen 500 mg PO Q6H PRN albuterol sulfate 0.63 mg inhalation Q6H PRN amoxicillin-pot clavulanate 250-125 mg 1 tab PO TID ascorbate calcium (vitamin C) 500 mg PO DAILY cholecalciferol (vitamin D3) 50 mcg PO DAILY clonazepam 0.5 mg PO BID PRN cyclobenzaprine 5 mg PO BEDTIME PRN dextroamphetamine-amphetamine 30 mg (Adderall) 30 mg PO DAILY dextroamphetamine-amphetamine 5 mg 1 tab PO DAILY folic acid 2 mg PO DAILY lisinopril 10 mg PO BID [vitamin B12 PO] [vitamin E PO] warfarin See Protocol 1 mg orally 4MG X 1 DAYS/ 3MG X 6DAYS; Nursing Note Pt to [facility] accompanied by son Elbert INR: 2.9 in therapeutic range of 2-3 Pt is traveling by plane to [place] tomorrow to stay with her daughter for the winter. Medications and supplements reviewed. Pt continues on amoxicillan for pneumonia. Is on day 5 of a 14 day course of treatment. States she feels better and is getting stronger. Gait is more steady today. No changes in diet, medications, or supplements. Appetite is fair. Denies any signs and symptoms of bleeding or bruising or clotting. Bleeding, bruising, clotting discussed Nutritional guidance given to have greens after she arrives in [place]. Better for her INR to be in the higher part of her target range for travel. Dose: 3mg X 6 days and 2mg X 1 day (Sun). Will cut warfarin in 1/2 to 1.5mg on Sat which is the half way point to the end of antibiotic course. F/U INR: order form for PT/INR given to pt to take with her to [place] to have drawn in 1 week. Pt to get a PCP while in [place]. Patient and son verbalizes understanding of instructions given Anti-Coag Initial Assessment Social Hx Patient Tobacco Use Status: Never used Tobacco alcohol intake: never Alcohol intake frequency: does not drink Coding Level of Care Code Est Patient Level 1 Diagnoses Current use of anticoagulant therapy Z79.01 Results AMB INR Fingerstick AMB INR Fingerstick 2.9 Last Edit by Chayito Moctezuma, RN on 12/09/23 11:37 interface delay Assessment & Plan Assessment & Plan (1) Current use of anticoagulant therapy: Code(s): Z79.01 - prison (current) use of 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 Orders: Orders Prothrombin Time INR Today Z79.01 - prison (current) use of anticoagulants
== END 2023-12-09 11:55 | disposition home or self-care (01) ==
LOC: HO.ACS 11:14
PROVIDERS: PCP Internal Medicine Cardiovascular Disease; Visit Provider Internal Medicine
DX: Z79.01 Long term (current) use of anticoagulants (principal)

== ENCOUNTER → 2023-12-09 11:14 | Outpatient (BNVA) | payer MEDICARE, SELFPAY | PROVIDERS: PCP Internal Medicine Cardiovascular Disease; Visit Provider Internal Medicine | DX: Z95.2 Presence of prosthetic heart valve (principal); Z79.01 Long term (current) use of anticoagulants; Z51.81 Encounter for therapeutic drug level monitoring | CPT/HCPCS: 85610; 99211 ==

== ENCOUNTER 2024-02-16 10:11 | Outpatient (AMB) | payer MEDICARE, SELFPAY ==
[2024-02-16 10:37] LABS: Prothrombin Time Whole Bld POC 36.5 sec (11.1-13.5)
--- NOTE | 2024-02-16 10:37 | MHC.OFFVISCO ---
Intake Intake Visit Reasons: Anticoagulation Allergies No Known Allergies Allergy (Verified 02/16/24 10:19) Medication List - Last Reconciled 02/16/24 by Sylwia Molina RN acetaminophen 500 mg PO Q6H PRN ascorbate calcium (vitamin C) 1 g PO DAILY cholecalciferol (vitamin D3) 50 mcg PO DAILY clonazepam 0.5 mg PO BID PRN lisinopril 10 mg PO BID warfarin See Protocol 1 mg orally 4MG X 1 DAYS/ 3MG X 6DAYS; Nursing Note INR: 3.0- in therapeutic range of 2-3 Medications and supplements reviewed- medications reviewed and updated No changes in health, diet, medications, or supplements, Denies any signs and symptoms of bleeding or bruising or clotting. Bleeding, bruising, clotting discussed -pt scratched nose with scant bleeding Nutritional guidance given - eat a green for 2 days Dose: pt insists she has been taking 3mg x 6, 4mg x 1- states has been taking this dose for a few months F/U INR: 1 week Patient verbalizes understanding of instructions given pt returned from [place] approx 1 week ago pt states was in hosp for 2 weeks for constipation and pneumonia pt states last inr 1.5 weeks ago and was 2.7. 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
== END 2024-02-16 10:47 | disposition home or self-care (01) ==
LOC: HO.ACS 10:11
PROVIDERS: PCP Internal Medicine Cardiovascular Disease; Visit Provider Internal Medicine
DX: Z79.01 Long term (current) use of anticoagulants (principal)

== ENCOUNTER → 2024-02-16 10:11 | Outpatient (BNVA) | payer MEDICARE, SELFPAY | PROVIDERS: PCP Internal Medicine Cardiovascular Disease; Visit Provider Internal Medicine | DX: Z95.2 Presence of prosthetic heart valve (principal); Z79.01 Long term (current) use of anticoagulants; Z51.81 Encounter for therapeutic drug level monitoring | CPT/HCPCS: 85610; 99212 ==

== ENCOUNTER 2024-03-02 13:01 | Outpatient (AMB) | payer MEDICARE, SELFPAY ==
[2024-03-02 13:08] LABS: ~PT, ~INR - Anti Coag Clinic 2.7 (0.9-1.1)
--- NOTE | 2024-03-02 13:19 | MHC.OFFVISCO ---
Intake Intake Visit Reasons: Anticoagulation Allergies No Known Allergies Allergy (Verified 03/02/24 13:03) Medication List - Last Reconciled 03/02/24 by Chayito Moctezuma, FRAN acetaminophen 500 mg PO Q6H PRN ascorbate calcium (vitamin C) 1 g PO DAILY bupropion HCl SR (Wellbutrin SR) 150 mg PO QAM cholecalciferol (vitamin D3) 50 mcg PO DAILY clonazepam 0.5 mg PO BID PRN [folate 867mcg, B12 1000mcg, B6 10mg PO DAILY] folic acid 0.8 mg PO DAILY lisinopril 10 mg PO BID warfarin See Protocol 1 mg orally 4MG X 1 DAYS/ 3MG X 6DAYS; zinc sulfate 50 mg PO BID Nursing Note INR: 2.7 in therapeutic range of 2-3 Medications and supplements reviewed No changes in health, diet, medications, or supplements, Denies any signs and symptoms of bleeding or bruising or clotting. Bleeding, bruising, clotting discussed Nutritional guidance given Dose: 3 mg X 6 days and 4mg X 1 day F/U INR: 2 weeks Patient verbalizes understanding of instructions given Anti-Coag Initial Assessment Social Hx Patient Tobacco Use Status: Never used Tobacco alcohol intake: never Alcohol intake frequency: does not drink Coding Level of Care Code Est Patient Level 1 Diagnoses Current use of anticoagulant therapy Z79.01 Assessment & Plan Assessment & Plan (1) Current use of anticoagulant therapy: Code(s): Z79.01 - jail (current) use of 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
== END 2024-03-02 13:21 | disposition home or self-care (01) ==
LOC: HO.ACS 13:01
PROVIDERS: PCP Internal Medicine Cardiovascular Disease; Visit Provider Internal Medicine
DX: Z79.01 Long term (current) use of anticoagulants (principal)

== ENCOUNTER → 2024-03-02 13:01 | Outpatient (BNVA) | payer MEDICARE, SELFPAY | PROVIDERS: PCP Internal Medicine Cardiovascular Disease; Visit Provider Internal Medicine | DX: Z95.2 Presence of prosthetic heart valve (principal); Z79.01 Long term (current) use of anticoagulants; Z51.81 Encounter for therapeutic drug level monitoring | CPT/HCPCS: 85610; 99211 ==

== ENCOUNTER → 2024-04-02 13:28 | Outpatient (BNVA) | payer MEDICARE, SELFPAY | PROVIDERS: PCP Internal Medicine Cardiovascular Disease; Visit Provider Internal Medicine | DX: Z95.2 Presence of prosthetic heart valve (principal); Z79.01 Long term (current) use of anticoagulants; Z51.81 Encounter for therapeutic drug level monitoring | CPT/HCPCS: 85610; 99211 ==

== ENCOUNTER → 2024-04-02 13:28 | Outpatient (AMB) | payer MEDICARE, SELFPAY ==
[2024-04-02 14:01] LABS: Prothrombin Time Whole Bld POC 31.6 sec (11.1-13.5); ~PT, ~INR - Anti Coag Clinic 2.6 (0.9-1.1)
== END | disposition home or self-care (01) ==
PROVIDERS: PCP Internal Medicine Cardiovascular Disease; Visit Provider Internal Medicine

== ENCOUNTER 2024-04-16 13:05 | Outpatient (AMB) | payer MEDICARE, SELFPAY ==
[2024-04-16 13:15] LABS: Prothrombin Time Whole Bld POC 40.8 sec (11.1-13.5); ~PT, ~INR - Anti Coag Clinic 3.4 (0.9-1.1)
--- NOTE | 2024-04-16 13:33 | MHC.OFFVISCO ---
Intake Intake Visit Reasons: Anticoagulation Allergies No Known Allergies Allergy (Verified 04/16/24 13:07) Medication List - Last Reconciled 04/16/24 by Marjorie Suazo RN acetaminophen 500 mg PO Q6H PRN ascorbate calcium (vitamin C) 1 g PO DAILY cholecalciferol (vitamin D3) 50 mcg PO DAILY clonazepam 0.5 mg PO BID PRN [folate 867mcg, B12 1000mcg, B6 10mg PO DAILY] folic acid 0.8 mg PO DAILY lisinopril 10 mg PO BID warfarin See Protocol 1 mg orally 4MG X 1 DAYS/ 3MG X 6DAYS; zinc sulfate 50 mg PO BID Nursing Note INR 3.4 out of therapeutic range Medications and supplements reviewed- Taking extra strength tylenol for back ache Patient status: leaving for [place] next week to be with son, daughter is on dialysis - transportation of concern for her and she is requesting a meter - that she use to use before and states she can manage it. It was explained she and the INR has to go through [facility] Medications or supplements: she states she has not started wellbutrin Diet: good Denies any signs and symptoms of bleeding or clotting or unusual bruising Bleeding, bruising, clotting discussed Nutritional guidance given: eat more greens when taking more tylenol Dose: decrease todays dose to 3mg then resume 4mg x 1 day/ 4mg x 1 day F/U INR Date: 3 weeks ?? Patient verbalizing understanding of instructions given with read back. Anti-Coag Initial Assessment Social Hx Patient Tobacco Use Status: Never used Tobacco alcohol intake: never Alcohol intake frequency: does not drink Questionnaires HAS-BLED Does the patient had uncontrolled Hypertension?: No Does the patient have renal disease?: No Does the patient have liver disease?: No Does the patient have a history of stroke?: No Has the patient had major bleeding or predisposition to bleeding?: No Does the patient have labile INRs?: No Is the patient over 65 years of age?: Yes Is the patient on medications that gives them a predisposition to bleeding?: Yes Does the patient use alcohol?: No HAS-BLED Score: 2 CHADSVASC Age: 75 or over Gender: Female Does the patient have a history of CHF?: No Does the patient have a history of Hypertension?: Yes Does the patient have a history of Stroke/TIA/Thromboembolism?: No Does the patient have a history of Vascular Disease (prior OH, PAD or aortic plaque)?: No Does the patient have a history of Diabetes?: No CHADS VACS Score: 4 Edward Prediction Score Rsk VTE Active Cancer: No Previous VTE, excluding superficial vein thrombosis: No Reduced mobility: No Already known Thrombophilic Condition: No With-in last month Trauma and/or Surgery: No Elderly 70 year or older: Yes Heart and/or Respiratory Failure: No Acute Myocardial infarction and/or Ischemic Stroke: No Acute Infection and/or Rheumatologic Disorder: No Obesity (BMI 30 or greater): No Ongoing Hormonal Treatment: No Score: 1 (mechanical mitral valve replacement ) Edward Score less than 4; Low Risk of VTE Edward Score 4 or greater; High Risk of VTE Coding Level of Care Code Est Patient Level 1 Diagnoses Current use of anticoagulant therapy Z79.01 Results AMB INR Fingerstick AMB INR Fingerstick 3.4 Last Edit by Marjorie Suazo RN on 04/16/24 13:16 manual entry Assessment & Plan Assessment & Plan (1) Current use of anticoagulant therapy: 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
--- OUTSIDE RECORDS SUMMARY | 2024-04-16 13:33 | XMS_ITS | Patient Health Record ---
Author Organization [facility] Address [address] [place] [id number] Care Team Providers Care Residential Framing Carpenter Name Role Phone PCP, Does not have a Primary Care Provider Unava ilable Allergies Allergen (clinical drug ingredient) Drug/Non Drug Allergy documented on EMR Reaction Allergy Type Onset Date Status azithromycin Azithromycin hives Drug Allergy A ctive Reason For Referral No Information Medications Medication SIG (Take, Route, Frequency, Duration) Notes Start Date End Date Status Adderall Active Lisinopril Active Amphetamine-Dextroamphetam ine Active clonazePAM Active Social History Tobacco Use: Social History Observation Description Date Details (start date - stop date) Never Smoker NA - NA Tobacco Use/Smoking Question Answer Notes You are a nonsmoker Problems Problem Type SNOMED Code ICD Code Onset Dates Problem Status W/U Status Risk Notes Problem Hearing loss ([id number]) 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
== END 2024-04-16 13:42 | disposition home or self-care (01) ==
LOC: HO.ACS 13:05
PROVIDERS: PCP Internal Medicine Cardiovascular Disease; Visit Provider Internal Medicine
DX: Z79.01 Long term (current) use of anticoagulants (principal)

== ENCOUNTER → 2024-04-16 13:05 | Outpatient (BNVA) | payer MEDICARE, SELFPAY | PROVIDERS: PCP Internal Medicine Cardiovascular Disease; Visit Provider Internal Medicine | DX: Z95.2 Presence of prosthetic heart valve (principal); Z79.01 Long term (current) use of anticoagulants; Z51.81 Encounter for therapeutic drug level monitoring | CPT/HCPCS: 85610; 99211 ==

== ENCOUNTER 2024-04-26 11:07 | Outpatient (AMB) | payer MEDICARE, SELFPAY ==
[2024-04-26 11:20] LABS: Prothrombin Time Whole Bld POC 79.7 sec (11.1-13.5); ~PT, ~INR - Anti Coag Clinic 6.6 (0.9-1.1)
--- OUTSIDE RECORDS SUMMARY | 2024-04-26 13:15 | XMS_ITS | Patient Health Record ---
Author Organization [facility] Address [address] [place] [id number] Care Team Providers Care Vulnerability Researcher Name Role Phone PCP, Does not have [...] W/U Status Risk Notes Problem Hearing loss ([id number]) Decreased hearing of both ears (H91.93) Active confirmed Plan Of Treatment No Information Insurance Providers Payer Name Payer Address Payer Phone Subscriber Number Group Number Insured Name Patient Relationship to Insured Coverage Start Date Coverage End Date [place] [address] [place] [phone] [id number] RONNIE UNDERWOOD Self - patient is the insured Medical (General) History Medical History History ICD Code cataracts heart valve
--- NOTE | 2024-04-26 14:00 | MHC.OFFVISCO ---
Intake Intake Visit Reasons: Anticoagulation Allergies No Known Allergies Allergy (Verified 04/26/24 11:09) Medication List - Last Reconciled 04/26/24 by Marjorie Suazo RN acetaminophen 500 mg PO Q6H PRN ascorbate calcium (vitamin C) 1 g PO DAILY bupropion HCl XL (Wellbutrin XL) 300 mg PO QAM cholecalciferol (vitamin D3) 50 mcg PO DAILY clonazepam 0.5 mg PO BID PRN [folate 867mcg, B12 1000mcg, B6 10mg PO DAILY] folic acid 0.8 mg PO DAILY lisinopril 10 mg PO BID warfarin See Protocol 1 mg orally 4MG X 1 DAYS/ 3MG X 6DAYS; zinc sulfate 50 mg PO BID Nursing Note Pt ambultes to [facility] by self INR 6.3 out of therapeutic range 2.0-3.0 Medications and supplements reviewed Patient status: pt has received upsetting news from md in [place] that her heart valve is compromised - she is not sure of the extent but took it upon herself to take extra warfarin thinking she was at risk of clotting - she stated she is not sure how much she took - it was explained that bleeding is dangerous also Medications or supplements: no other changes Diet: good Denies any signs and symptoms of bleeding or clotting or unusual bruising Bleeding, bruising, clotting discussed Nutritional guidance given: eat greens today Dose: hold warfarin dose today - 1mg tomorrow 3mg fri and recheck INR F/U INR Date: 04/29/24 ?? Patient verbalizing understanding of instructions given and will go to ER with any fall, bump to her head or any unusual bleeding or bruising. t/c to manager of corporate communications left msg on nurse triage line to convey pt status to MD - pt trying to get established with PCP here but has to wait several Anti-Coag Initial Assessment Social Hx Patient Tobacco Use Status: Never used Tobacco alcohol intake: never Alcohol intake frequency: does not drink Coding Level of Care Code Est Patient Level 1 Diagnoses Current use of anticoagulant therapy Z79. Assessment & Plan Assessment & Plan (1) Current use of anticoagulant therapy: Code(s): Z79.01 - shelter (current) use of 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 Orders: Orders Prothrombin Time INR 05/03/24 Z79.01 - emt intermediate (current) use of anticoagulants Complete Blood Count Auto Diff Today Z79.01 - shelter (current) use of anticoagulants Prothrombin Time INR Today Z79.01 - emt intermediate (current) use of anticoagulants
== END 2024-04-26 14:07 | disposition home or self-care (01) ==
LOC: HO.ACS 11:07
PROVIDERS: PCP Internal Medicine Cardiovascular Disease; Visit Provider Internal Medicine
DX: Z79.01 Long term (current) use of anticoagulants (principal)

== ENCOUNTER 2024-04-26 11:07 | Outpatient (REF) | payer MEDICARE, SELFPAY ==
[2024-04-26 11:49] LABS: MANUAL DIFF FLAG NO
[2024-04-26 11:53] LABS: Basophils Absolute Auto 0.1 X10*3/uL (0.0-0.2); Basophils Percent Auto 0.9 % (0-2); Eosinophils Absolute Auto 0.1 X10*3/uL (0.0-0.4); Eosinophils Percent Auto 2.4 % (0-4); Hematocrit 44.7 % (37.0-47.0); Hemoglobin 14.6 g/dl (12.0-16.0); Imm Gran Abs Auto 0.01 X10*3/uL (0.00-0.03); Imm Gran Pct Auto 0.2 % (0.0-0.4); Lymphocytes Percent Auto 18.5 % (20-40); Mean Corpuscular HGB Conc 32.7 g/dl (31.0-35.0); Mean Corpuscular Hemoglobin 29.1 pg (27.0-33.0); Monocytes Absolute Auto 0.5 X10*3/uL (0.1-1.2); Monocytes Percent Auto 8.4 % (2-11); Neutrophils Absolute Auto 3.8 x10*3/uL (2.0-8.3); Neutrophils Percent Auto 69.6 % (45-73); Platelet Count 221 X10*3/uL (160-400); Red Blood Count 5.02 X10*6/uL (4.20-5.50); Red Cell Distribution Width 13.7 % (11.0-16.0); White Blood Count 5.5 X10*3/uL (4.8-10.8)
[2024-04-26 12:08] LABS: Prothrombin Time 73.7 SEC (10.9-12.4)
[2024-04-26 12:13] LABS: INTERNATIONAL NORM RATIO 6.3 (0.9-1.1)
== END 2024-04-26 11:08 | disposition home or self-care (01) ==
LOC: HO.LAB 11:07
PROVIDERS: PCP Internal Medicine Cardiovascular Disease; Visit Provider Internal Medicine
DX: Z79.01 Long term (current) use of anticoagulants (principal)
CPT/HCPCS: 36415; 85025; 85610; 99211

== ENCOUNTER 2024-04-29 13:37 | Outpatient (AMB) | payer MEDICARE, SELFPAY ==
[2024-04-29 13:57] LABS: Prothrombin Time Whole Bld POC 23.9 sec (11.1-13.5)
--- NOTE | 2024-04-29 14:12 | MHC.OFFVISCO ---
Intake Intake Visit Reasons: Anticoagulation Allergies No Known Allergies Allergy (Verified 04/29/24 13:52) Medication List - Last Reconciled 04/29/24 by Marjorie Suazo RN acetaminophen 500 mg PO Q6H PRN ascorbate calcium (vitamin C) 1 g PO DAILY bupropion HCl XL (Wellbutrin XL) 300 mg PO QAM cholecalciferol (vitamin D3) 50 mcg PO DAILY clonazepam 0.5 mg PO BID PRN [folate 867mcg, B12 1000mcg, B6 10mg PO DAILY] folic acid 0.8 mg PO DAILY lisinopril 10 mg PO BID warfarin See Protocol 1 mg orally 4MG X 1 DAYS/ 3MG X 6DAYS; zinc sulfate 50 mg PO BID Nursing Note INR: 2.0 in therapeutic range 2.0-3.0 S/P CRITICAL INR 6.3 S/P SELF DOSING - she self dosed because she received a report that stated she has athrolsclerosis and valve calcifications and she was afraid of having a heart attack, it was explained with a critical INR she could have a brain or GI bleed. She is leaving for [place] to be with her son tomorrow, she has a lab slip for 1 f/u INR s/p critical INR then she is to get accainted with the [facility] while she is there for several months No changes in health, diet, medications, or supplements, Denies any signs and symptoms of bleeding or bruising or clotting. Bleeding, bruising, clotting discussed Nutritional guidance given - avoid greens x 3 days Dose: resume 4mg x 1 day/ 3mg x 6 days F/U INR: 2 weeks - lab x1 with explaination while residing in [place] several month she needs to establish care there Patient verbalizes understanding of instructions given with read back Anti-Coag Initial Assessment Social Hx Patient Tobacco Use Status: Never used Tobacco alcohol intake: never Alcohol intake frequency: does not drink Coding Level of Care Code Est Patient Level 1 Diagnoses Current use of anticoagulant therapy Z79.01 Results AMB INR Fingerstick AMB INR Fingerstick 2.0 Last Edit by Marjorie Suazo RN on 04/29/24 14:04 MANUAL ENTRY Assessment & Plan Assessment & Plan (1) Current use of anticoagulant therapy: 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
--- OUTSIDE RECORDS SUMMARY | 2024-04-29 16:32 | XMS_ITS | Patient Health Record ---
Author Organization [facility] Address [address] [place] [phone] Care Team Providers Care Director Talent Acquisition Name Role Phone PCP, Does not have [...] W/U Status Risk Notes Problem Hearing loss ([id number]) Decreased hearing of both ears (H91.93) Active confirmed Plan Of Treatment No Information Insurance Providers Payer Name Payer Address Payer Phone Subscriber Number Group Number Insured Name Patient Relationship to Insured Coverage Start Date Coverage End Date [place] [address] [place] [phone] [id number] RONNIE UNDERWOOD Self - patient is the insured Medical (General) History Medical History History ICD Code cataracts heart valve
== END 2024-04-29 14:18 | disposition home or self-care (01) ==
LOC: HO.ACS 13:37
PROVIDERS: PCP Internal Medicine Cardiovascular Disease; Visit Provider Internal Medicine
DX: Z79.01 Long term (current) use of anticoagulants (principal)

== ENCOUNTER → 2024-04-29 13:37 | Outpatient (BNVA) | payer MEDICARE, SELFPAY | PROVIDERS: PCP Internal Medicine Cardiovascular Disease; Visit Provider Internal Medicine | DX: Z95.2 Presence of prosthetic heart valve (principal); Z79.01 Long term (current) use of anticoagulants; Z51.81 Encounter for therapeutic drug level monitoring | CPT/HCPCS: 85610; 99211 ==

== ENCOUNTER 2024-05-27 13:13 | Outpatient (AMB) | payer MEDICARE, SELFPAY ==
[2024-05-27 13:21] LABS: ~PT, ~INR - Anti Coag Clinic 2.6 (0.9-1.1)
--- NOTE | 2024-05-27 13:34 | MHC.OFFVISCO ---
Intake Intake Visit Reasons: Anticoagulation Allergies No Known Allergies Allergy (Verified 04/29/24 13:52) Nursing Note INR: 2.6 in therapeutic range of 2-3 Medications and supplements reviewed No changes in health, diet, medications, or supplements, Denies any signs and symptoms of bleeding or bruising or clotting. Bleeding, bruising, clotting discussed Nutritional guidance given Dose: 3mg X 6 days and 4mg X 1 day (Fri) F/U INR: 2 weeks Patient verbalizes understanding of instructions given Anti-Coag Initial Assessment Social Hx Patient Tobacco Use Status: Never used Tobacco alcohol intake: never Alcohol intake frequency: does not drink Coding Level of Care Code Est Patient Level 1 Diagnoses Current use of anticoagulant therapy Z79.01 Assessment & Plan Assessment & Plan (1) Current use of anticoagulant therapy: Code(s): Z79.01 - retirement (current) use of 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
--- OUTSIDE RECORDS SUMMARY | 2024-05-27 14:25 | XMS_ITS | Patient Health Record ---
Author Organization [facility] Address [address] [place] [phone] Care Team Providers Care Alteration Worker Name Role Phone PCP, Does not have [...] W/U Status Risk Notes Problem Hearing loss ([id number]) Decreased hearing of both ears (H91.93) Active confirmed Plan Of Treatment No Information Insurance Providers Payer Name Payer Address Payer Phone Subscriber Number Group Number Insured Name Patient Relationship to Insured Coverage Start Date Coverage End Date [place] [address] [place] [phone] [id number] RONNIE UNDERWOOD Self - patient is the insured Medical (General) History Medical History History ICD Code cataracts heart valve
== END 2024-05-27 13:37 | disposition home or self-care (01) ==
LOC: HO.ACS 13:13
PROVIDERS: PCP Internal Medicine Cardiovascular Disease; Visit Provider Internal Medicine Medical Oncology
DX: Z79.01 Long term (current) use of anticoagulants (principal)

== ENCOUNTER → 2024-05-27 13:13 | Outpatient (BNVA) | payer MEDICARE, SELFPAY | PROVIDERS: PCP Internal Medicine Cardiovascular Disease; Visit Provider Internal Medicine Medical Oncology | DX: Z95.2 Presence of prosthetic heart valve (principal); Z51.81 Encounter for therapeutic drug level monitoring; Z79.01 Long term (current) use of anticoagulants | CPT/HCPCS: 85610; 99211 ==

== ENCOUNTER 2024-06-11 14:11 | Outpatient (AMB) | payer MEDICARE, SELFPAY ==
--- OUTSIDE RECORDS SUMMARY | 2024-06-11 14:31 | XMS_ITS | Patient Health Record ---
Author Organization [facility] Address [address] [place] [phone] Care Team Providers Care Biological Aide Name Role Phone PCP, Does not have [...] W/U Status Risk Notes Problem Hearing loss ([id number]) Decreased hearing of both ears (H91.93) Active confirmed Plan Of Treatment No Information Insurance Providers Payer Name Payer Address Payer Phone Subscriber Number Group Number Insured Name Patient Relationship to Insured Coverage Start Date Coverage End Date [place] [address] [place] [phone] [id number] RONNIE UNDERWOOD Self - patient is the insured Medical (General) History Medical History History ICD Code cataracts heart valve
[2024-06-11 14:40] LABS: Prothrombin Time Whole Bld POC 23.1 sec (11.1-13.5); ~PT, ~INR - Anti Coag Clinic 1.9 (0.9-1.1)
--- NOTE | 2024-06-11 15:15 | MHC.OFFVISCO ---
Intake Intake Visit Reasons: Anticoagulation Allergies No Known Allergies Allergy (Verified 06/11/24 14:31) Medication List - Last Reconciled 06/11/24 by Marjorie Suazo RN acetaminophen 500 mg PO Q6H PRN ascorbate calcium (vitamin C) 1 g PO DAILY bupropion HCl XL (Wellbutrin XL) 300 mg PO QAM clonazepam 0.5 mg PO BID PRN cyanocobalamin (vitamin B-12) PO dextroamphetamine-amphetamine 30 mg 1 tab PO DAILY folic acid 0.8 mg PO DAILY lisinopril 10 mg PO BID warfarin See Protocol 1 mg orally 4MG X 1 DAYS/ 3MG X 6DAYS; Nursing Note INR 1.9? out of therapeutic range- 2.0-3.0 Medications and supplements reviewed Patient status: concerned for daughter and her own heatlh, BHN numbers given, may have eaten more greens than usual Medications or supplements: no changes Diet: good Denies any signs and symptoms of bleeding or clotting or unusual bruising Bleeding, bruising, clotting discussed Nutritional guidance given: avoid greens x 3 days, eat orange and reds to help raise the INR Dose: 4mg x 2 days this week then resume 4mg x day/ 3mg x 6 days F/U INR Date: 1 week ?? Patient verbalizing understanding of instructions given with read back. 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
== END 2024-06-11 15:26 | disposition home or self-care (01) ==
LOC: HO.ACS 14:11
PROVIDERS: PCP Internal Medicine Cardiovascular Disease; Visit Provider Internal Medicine Medical Oncology
DX: Z79.01 Long term (current) use of anticoagulants (principal)

== ENCOUNTER → 2024-06-11 14:11 | Outpatient (BNVA) | payer MEDICARE, SELFPAY | PROVIDERS: PCP Internal Medicine Cardiovascular Disease; Visit Provider Internal Medicine Medical Oncology | DX: Z95.2 Presence of prosthetic heart valve (principal); Z79.01 Long term (current) use of anticoagulants; Z51.81 Encounter for therapeutic drug level monitoring | CPT/HCPCS: 85610; 99211 ==

== ENCOUNTER 2024-06-23 08:48 | Outpatient (AMB) | payer MEDICARE, SELFPAY ==
[2024-06-23 08:50] VITALS: BP 122/86; BMI 21.6
--- NOTE | 2024-06-23 08:50 | A.OFFPC_ITS ---
Vital Signs 06/23/24 08:50 Height 5 ft 1 in Weight 114 lb 2 oz BMI 21.6 BP 122/86 Blood Pressure Location Lt brachial Position Sitting Pulse Source Pulse Oximeter Oxygen Delivery Method Room Air Intake Visit Reasons: re-establish care Investment Representative Required: No Accompanied by: Self / Same As Patient Allergies latex Allergy (Intermediate, Verified 06/29/24 03:21) Rash Medication List - Last Reconciled 06/23/24 by Artie Meehan MD acetaminophen 500 mg PO Q6H PRN ascorbate calcium (vitamin C) 1 g PO DAILY bupropion HCl XL (Wellbutrin XL) 300 mg PO QAM clonazepam 0.5 mg PO BID PRN cyanocobalamin (vitamin B-12) PO dextroamphetamine-amphetamine 30 mg 1 tab PO DAILY folic acid 0.8 mg PO DAILY lisinopril 10 mg PO BID warfarin See Protocol 1 mg orally 4MG X 1 DAYS/ 3MG X 6DAYS; Tobacco use date assessed: 06/23/24 Fall risk assessment: No Falls in past year Last assessed Fall Risk: 06/23/24 Dental Screening Dental Screen Date: 06/23/24 Did you have a dental visit in the last 12 months?: Yes Did you have a dental problem in the last 6 months where you did not have access to dental care?: No Was dental information given to patient?: Patient has dentist HPI re-establish care HPI Details Patient comes in today to reestablish care - she was last seen here on 02/28/2021 and by me personally on 08/29/2020 Patient states that she spent some time in [place] and [place] with her family over the past couple of years She reports having a colonoscopy done in [place] last year on 04/04/2023 which revealed (+) colonic polyps that came out benign initially but the pathology report was later corrected to (+) sessile serrated adenoma/polyp with high grade dysplasia Immunohistochemical staining for mismatched repair proteins were performed and 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 Patient was then reportedly advised to consider getting a repeat colonoscopy in 1 year due to her recent findings and states that now is over a year out and she is due for a repeat colonoscopy - is seeing GI over at [facility] for this She also reports feeling very unsteady when she is walking and moving around lately and would like to see if she can be referred to physical therapy to help improve her gait and mobility She denies any headaches or dizziness Denies any chest pains, notes (+) mild SOB with exertion, which she states she's had for a while now and feels that this has slowly progressed lately No nausea/vomiting, no abdominal pain No change in bowel habits noted [facility] Medical History Current use of anticoagulant therapy HTN (hypertension) Rash Osteoporosis Cataracts, bilateral Depression Anxiety Dyslipidemia Pancreatic cyst Benign essential hypertension Surgical History Aortic valve replaced History of cataract surgery Hx of prosthetic aortic valve replacement History of aortic valve repair History of bronchoscopy Hx of breast biopsy Family History Father CVD (cardiovascular disease) Mother Stroke Sister Colon cancer Brother Bladder cancer Maternal Grandmother No problems noted. Paternal Grandmother Stroke Family/Other Heroin addiction Other Mental health problem Substance abuse Social History Housing: House Alcohol intake: never Patient Tobacco Use Status: Never used Tobacco e-Cigarette/Vaping Use: Never Used Second Hand Smoke Exposure: Yes service: No Current occupational status: retired Cognitive needs: No Hearing needs: No Vision needs: No Questionnaire PHQ-9 Over the last 2 weeks, how often have you been bothered by any of the following problems? 1. Little interest or pleasure in doing things: not at all 2. Feeling down, depressed, or hopeless: not at all 3. Trouble falling or staying asleep, or sleeping too much: not at all 4. Feeling tired or having little energy: not at all 5. Poor appetite or overeating: not at all 6. Feeling bad about yourself - or that you are a failure or have let yourself or your family down: not at all 7. Trouble concentrating on things, such as reading the newspaper or watching television: not at all 8. Moving or speaking so slowly that other people could have noticed. Or the opposite - being so fidgety or restless that you have been moving around a lot more than usual: not at all 9. Thoughts that you would be better off or of hurting yourself in some w ay: not at all Total score: 0 Depression Screening Interpretation: Negative (is on Rx for depression/mood disorder) Depression Screening Done: Yes 73637 - PHQ-9 Billing: Yes Source: Developed by Drs. Charly Bae, Barb Stern, Alfredo Kimball and colleagues, with an educational rangel from [employer]. Thrive Questionnaire Date Thrive assessed: 06/23/24 I am a: Patient What is your living situation today?: I have a steady place to live Within the past 12 months, did the food you bought not last and you didn't have the money to get more?: Never true Within the past 12 months, did you worry whether your food would run out before you got money to buy more?: Never true Do you have trouble paying for medicines?: No Do you have trouble getting transportation to medical appointments?: No Do you have trouble paying your heating and electricity bill?: No Do you have trouble taking care of your child, family member or friend?: I choose not to answer this question Do you have trouble with day-to-day activities such as bathing, preparing meals, shopping, managing finances, etc.?: No Are you currently unemployed and looking for a job?: No Are you interested in more education?: Yes Please select the resources that you would like help with: None Currently or been in a relationship where the following occur: No concerns reported THRIVE Score: 0 AUDIT C Alcohol Use Questionnaire (AUDIT-C) 1. How often do you have a drink containing alcohol?: Never 3. How often do you have six or more drinks on one occasion?: Never Total Score: 0 Score Reviewed/Action Taken: Yes ADELAIDA-7 AMB Questionnaire ADELAIDA-7 Date ADELAIDA - 7 assessed: 06/23/24 Feeling nervous, anxious, or on edge: 0 = Not at all Not being able to stop or control worryin = Not at all Worrying too much about different things: 0 = Not at all Trouble relaxin = Not at all Being so restless that it is hard to sit still: 0 = Not at all Becoming easily annoyed or irritable: 0 = Not at all Feeling afraid as if something awful might happen: 0 = Not at all Total ADELAIDA-7 score (0-4 normal; 5-9 mild; 10-14 moderate; 15-21 severe): 0 Source: Developed by Drs. Charly Bae, Barb Stern, Alfredo Kimball and colleagues, with an educational rangel from [employer]. Review of Systems Const Denies chills, Reports fatigue, Denies fever(s) and Denies headache(s) ENT Denies dysphagia, Denies dizziness, Denies otalgia, Denies headache(s), Denies neck pain, Denies odynophagia and Denies sore throat Card Denies chest pain, Denies palpitations and Reports dyspnea on exertion Resp Denies chest congestion, Denies cough and Reports dyspnea on exertion GI Denies abdominal pain, Denies constipation, Denies dysphagia, Denies heartburn, Denies diarrhea, Denies nausea, Denies odynophagia and Denies vomiting Denies difficulty voiding, Denies nocturia, Denies dysuria and Denies urinary urgency Musc Reports abnormal gait (unsteady gait), Reports back pain (on and off, over the lower back) and Denies neck pain Skin/Breast Denies rash Neuro Reports abnormal gait (unsteady gait), Denies dizziness and Denies headache(s) Psych Reports anxiety and Reports depression (is on Rx) Endo Reports fatigue and Denies palpitations Physical exam (Primary Care) Vital Signs: Last Vital Signs BP 122/86 06/23/24 08:50 Oxygen Delivery Method Room Air 06/23/24 08:50 BMI result Body Mass Index 21.6 Tobacco/Smoking Status: Tobacco use Status Tobacco use date assessed 06/23/24 06/23/24 09:04 Patient Tobacco Use Status Never used Tobacco 06/23/24 09:04 e-Cigarette/Vaping Use Never Used 06/23/24 09:04 PHQ-9: PHQ-9 Score PHQ-9: Total score 0 06/23/24 09:33 Depression Screening Interpretation: Negative (is on Rx for depression/mood disorder) Thrive Assessment: Date of Thrive Assessment Date Thrive assessed 06/23/24 06/23/24 09:04 Currently or been in a relationship where the following occur: No concerns reported Const General: no acute distress and alert HENMT Ears: TM's normal bilaterally and EAC's normal Throat: Yes posterior oropharynx normal and Yes tonsils normal (no TP congestion noted) Neck Neck: Yes supple and No lymphadenopathy Thyroid: Thyroid normal Resp Auscultation: clear to auscultation bilaterally, no rales and no wheezes Cardio Rate: regular rate Rhythm: regular rhythm Heart sounds: no murmurs GI Palpation (GI): Soft to palpation and nontender Auscultation: normal bowel sounds General: Yes no CVA tenderness Back/Spine/Pelvis Back: no CVA tenderness Thoracic/Lumbar Spine: lumbar spinal tenderness Skin Rashes: no rashes Extrem General: Yes no clubbing, cyanosis or edema Coding Level of Care Code New Pt Level 4 (88849) Diagnoses Benign essential hypertension I10 Dyslipidemia E78.5 Hx of prosthetic aortic valve replacement Z95.2 Exertional dyspnea R06.09 Pancreatic cyst K86.2 Age-related osteoporosis without current pathological fracture M81.0 Osteoporosis type: age-related Presence of current pathological fracture: without current pathological fracture Vitamin D deficiency E55.9 Unsteady gait R26.81 Fatigue, unspecified type R53.83 Fatigue type: unspecified Anxiety F41.9 Depression, unspecified depression type F32.9 Depression Type: unspecified Additional Codes PHQ-9 - 25404 - PHQ-9 Billing: Yes ([id number]) Assessment & Plan Assessment & Plan (1) Benign essential hypertension: Code(s): I10 - Essential (primary) hypertension Category: Medical Plan: Reinforced low sodium diet - goal is systolic BP of at least 130 mm to 140 mm or less Continue Lisinopril 10 mg BID (2) Dyslipidemia: Code(s): E78.5 - Hyperlipidemia, unspecified Category: Medical Plan: Reinforced low cholesterol diet Will recheck her labs and fasting lipids NITISH for follow up (3) Hx of prosthetic aortic valve replacement: Code(s): Z95.2 - Presence of prosthetic heart valve Category: Surgical Plan: Continue Coumadin 2.5 mg 1 to 2 tablets daily as instructed, with dose adjustment per PT/INR results (4) Exertional dyspnea: Code(s): R06.09 - Other forms of dyspnea Category: Medical Plan: Her previous echocardiogram done in 2020 revealed (+) mild MR With her recent WILKES, will go ahead and have her get a repeat echocardiogram for further evaluation/follow up (5) Pancreatic cyst: Comment: MRCP done at [facility] on 05/22/2018 showed (+) multiple chronic pancreatic and peripancreatic cysts that do not appear to be malignant and recommended repeat imaging in a year for follow up Patient reportedly had a follow up CT done in February 2019 which reportedly came back with benign results Code(s): K86.2 - Cyst of pancreas Category: Medical Plan: Follow up with GI as scheduled for continuing surveillance (6) Osteoporosis: Code(s): M81.0 - Age-related osteoporosis without current pathological fracture Category: Medical Qualifiers: Osteoporosis type: age-related Presence of current pathological fracture: without current pathological fracture Qualified Code(s): M81.0 - Age- related osteoporosis without current pathological fracture Plan: Her last BMD done at [facility] on 01/24/2021 revealed (+) stable lumbar spine and bilateral hip osteoporosis Reinforced fall precautions, especially with her unsteady gait She is currently not on any Vitamin D or Calcium supplements - will check her Vitamin D level with her other labs NITISH Will also likely have her get a repeat BMD for follow up once her more urgent issues today are addressed (7) Vitamin D deficiency: Code(s): E55.9 - Vitamin D deficiency, unspecified Category: Medical Plan: Will check patient's serum Vitamin D level NITISH for follow up (8) Unsteady gait: Code(s): R26.81 - Unsteadiness on feet Category: Medical Plan: Per request, will refer her to physical therapy for further evaluation and management and gait training (9) Fatigue: Code(s): R53.83 - Other fatigue Category: Medical Qualifiers: Fatigue type: unspecified Qualified Code(s): R53.83 - Other fatigue Plan: Continue Dextroamphetamine-Amphetamine (Adderall) 30 mg QD (10) Anxiety: Code(s): F41.9 - Anxiety disorder, unspecified Category: Medical Plan: Continue Bupropion XL 300 mg QD and Clonazepam 0.5 mg BID PRN Follow up with psychiatry as scheduled (11) Depression: Code(s): F32.9 - Major depressive disorder, single episode, unspecified Category: Medical Qualifiers: Depression Type: unspecified Qualified Code(s): F32.9 - Major depressive disorder, single episode, unspecified Plan: Continue Bupropion XL 300 mg Q AM Follow up with psychiatry (Dr. Rina Swenson) as scheduled Plan Follow up in 3 months Orders: Orders Complete Blood Count Auto Diff 06/23/24 D64.9 - Anemia, unspecified Lipid Panel 06/23/24 E78.00 - Pure hypercholesterolemia, unspecified TSH reflex Free T4 06/23/24 E78.00 - Pure hypercholesterolemia, unspecified Vitamin D 25-OH Total 06/23/24 E55.9 - Vitamin D deficiency, unspecified CA echo transthoracic complete 06/23/24 R06.00 - Dyspnea, unspecified, Z95.2 - Presence of prosthetic heart valve Comprehensive [place]. Panel Fast 06/23/24 E78.00 - Pure hypercholesterolemia, unspecified UA CC w/rflx Micro + Cult 06/23/24 R30.0 - Dysuria Vitamin B12 and Folate 06/23/24 E53.8 - Deficiency of other specified B group vitamins PT Evaluation and Treatment 06/23/24 M51.36 - Other intervertebral disc degeneration, lumbar region, R26.81 - Unsteadiness on feet, R54 - Age-related physical debility, Z60.2 - Problems related to living alone
--- OUTSIDE RECORDS SUMMARY | 2024-06-23 09:09 | XMS_ITS | Patient Health Record ---
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
== END 2024-06-23 09:53 | disposition home or self-care (01) ==
LOC: HO.HMCH 08:49
PROVIDERS: PCP Internal Medicine; Visit Provider Internal Medicine
DX: I10 Essential (primary) hypertension (principal); E78.5 Hyperlipidemia, unspecified; Z95.2 Presence of prosthetic heart valve; R06.09 Other forms of dyspnea; K86.2 Cyst of pancreas; M81.0 Age-related osteoporosis without current pathological fracture; E55.9 Vitamin D deficiency, unspecified; R26.81 Unsteadiness on feet; R53.83 Other fatigue; F41.9 Anxiety disorder, unspecified; F32.9 Major depressive disorder, single episode, unspecified

== ENCOUNTER → 2024-06-23 08:48 | Outpatient (BNVA) | payer MEDICARE, SELFPAY | PROVIDERS: PCP Internal Medicine; Visit Provider Internal Medicine | DX: I10 Essential (primary) hypertension (principal); E78.5 Hyperlipidemia, unspecified; R06.09 Other forms of dyspnea; K86.2 Cyst of pancreas; M81.0 Age-related osteoporosis without current pathological fracture; E55.9 Vitamin D deficiency, unspecified; R26.81 Unsteadiness on feet; R53.83 Other fatigue; F41.9 Anxiety disorder, unspecified; F32.9 Major depressive disorder, single episode, unspecified; Z95.2 Presence of prosthetic heart valve; Z51.81 Encounter for therapeutic drug level monitoring; Z79.01 Long term (current) use of anticoagulants | CPT/HCPCS: 85610; 96127; 99202; 99211 ==

== ENCOUNTER 2024-06-23 10:16 | Outpatient (AMB) | payer MEDICARE, SELFPAY ==
[2024-06-23 10:36] LABS: Prothrombin Time Whole Bld POC 28.2 sec (11.1-13.5); ~PT, ~INR - Anti Coag Clinic 2.3 (0.9-1.1)
--- NOTE | 2024-06-23 10:39 | MHC.OFFVISCO ---
Intake Intake Visit Reasons: Anticoagulation Allergies latex Allergy (Intermediate, Verified 06/23/24 10:29) Rash Medication List - Last Reconciled 06/23/24 by Yris Hardy RN acetaminophen 500 mg PO Q6H PRN ascorbate calcium (vitamin C) 1 g PO DAILY bupropion HCl XL (Wellbutrin XL) 300 mg PO QAM clonazepam 0.5 mg PO BID PRN cyanocobalamin (vitamin B-12) PO dextroamphetamine-amphetamine 30 mg 1 tab PO DAILY folic acid 0.8 mg PO DAILY lisinopril 10 mg PO BID warfarin See Protocol 1 mg orally 4MG X 1 DAYS/ 3MG X 6DAYS; Nursing Note NO CP,SOB,DIET/MED CHANGES,FALLS OR SX OF BLEEDING. CONTINUE PRESENT DOSE AND FOLLOW-UP IN 2 WEEKS. GOOD UNDERSTANDING OF DOSING INSTR. 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
== END 2024-06-23 12:44 | disposition home or self-care (01) ==
LOC: HO.ACS 10:16
PROVIDERS: PCP Internal Medicine; Visit Provider Internal Medicine Medical Oncology
DX: Z79.01 Long term (current) use of anticoagulants (principal)

== ENCOUNTER 2024-07-01 13:06 | Outpatient (REF) | payer MEDICARE, SELFPAY ==
[2024-07-01 13:20] LABS: MANUAL DIFF FLAG NO
[2024-07-01 13:46] LABS: Basophils Absolute Auto 0.1 X10*3/uL (0.0-0.2); Basophils Percent Auto 1.1 % (0-2); Eosinophils Absolute Auto 0.1 X10*3/uL (0.0-0.4); Eosinophils Percent Auto 2.5 % (0-4); Hematocrit 45.9 % (37.0-47.0); Hemoglobin 15.4 g/dl (12.0-16.0); Imm Gran Abs Auto 0.01 X10*3/uL (0.00-0.03); Imm Gran Pct Auto 0.2 % (0.0-0.4); Lymphocytes Absolute Auto 1.4 X10*3/uL (1.2-4.9); Lymphocytes Percent Auto 30.8 % (20-40); Mean Corpuscular HGB Conc 33.6 g/dl (31.0-35.0); Mean Corpuscular Hemoglobin 30.3 pg (27.0-33.0); Mean Corpuscular Volume 90.2 fL (80.0-98.0); Mean Platelet Volume 8.8 fL (9.4-12.3); Monocytes Absolute Auto 0.4 X10*3/uL (0.1-1.2); Neutrophils Absolute Auto 2.4 x10*3/uL (2.0-8.3); Neutrophils Percent Auto 55.4 % (45-73); Platelet Count 221 X10*3/uL (160-400); Red Blood Count 5.09 X10*6/uL (4.20-5.50); Red Cell Distribution Width 14.4 % (11.0-16.0); White Blood Count 4.4 X10*3/uL (4.8-10.8)
[2024-07-01 13:49] LABS: Prothrombin Time 23.6 SEC (10.9-12.4)
[2024-07-01 13:56] LABS: Appearance Urine Clear; Color Urine Yellow; Glucose Urine UA Negative (Negative); Leukocyte Esterase Urine Negative (Negative); Nitrite Urine Negative (Negative); Specific Gravity - Urine >= 1.030 (1.005-1.025); UMIC TRIGGER UACC YES; Urine Blood Trace (Negative); Urine Ketones Negative (Negative); Urine Protein Negative (Neg-Trace)
[2024-07-01 14:14] LABS: Alanine Aminotransferase 23 U/L (0-31); Albumin Level 4.1 g/dL (3.5-5.0); Alkaline Phosphatase 71 U/L (39-117); Anion Gap 13 (12-20); Aspartate Amino Transferase 29 U/L (5-31); Bilirubin Total 0.5 mg/dL (0.0-1.0); Blood Urea Nitrogen 25 mg/dL (9-16); Calcium 9.9 mg/dL (8.4-10.2); Carbon Dioxide 29 mmol/L (22-29); Chloride 110 mmol/L (96-108); Cholesterol 268 mg/dL (<200); Estimated Glomerular Filt Rate 53; Glucose Fasting 92 mg/dL (60-99); HDL Cholesterol 74 mg/dL (>40); LDL Cholesterol Calculated 178 mg/dL (<100); Potassium 5.2 mmol/L (3.3-5.1); Sodium 147 mmol/L (135-145); Total Protein 6.9 g/dL (6.5-8.0); Triglycerides 84 mg/dL (<150)
--- OUTSIDE RECORDS SUMMARY | 2024-07-01 14:14 | XMS_ITS | Patient Health Record ---
Author Organization [facility] Address [address] [place] [id number] Care Team Providers Care Gsa Coordinator Name Role Phone PCP, Does not have [...] Problem Status W/U Status Risk Notes Problem Decreased hearing of both ears (H91.93) Active confirmed Plan Of Treatment No Information Insurance Providers Payer Name Payer Address Payer Phone Subscriber Number Group Number Insured Name Patient Relationship to Insured Coverage Start Date Coverage End Date [place] [address] [place] [address] [id number] RONNIE UNDERWOOD Self - patient is the insured Medical (General) History Medical History History ICD Code cataracts heart valve
[2024-07-01 14:25] LABS: TSH reflex Free T4 2.37 uIU/mL (0.32-4.0); Vitamin D 25-OH Total 37.7 ng/mL (>30)
[2024-07-01 14:27] LABS: Bacteria Urine None Seen (None Seen); RBC Urine 0-2 /HPF (0-2); Squamous Epithelial Cell Urine 0-2 /HPF (0-2); WBC Urine 0-5 /HPF (0-5)
[2024-07-01 14:28] LABS: Hyaline Casts Urine 0-2 /LPF (0-2)
[2024-07-01 14:41] LABS: Folate 13.9 ng/mL (> or = 4.0); Vitamin B12 754 pg/mL (200-900)
== END 2024-07-01 13:07 | disposition home or self-care (01) ==
LOC: HO.LAB 13:06
PROVIDERS: PCP Internal Medicine; Visit Provider Internal Medicine
DX: D64.9 Anemia, unspecified (principal); E78.00 Pure hypercholesterolemia, unspecified; E55.9 Vitamin D deficiency, unspecified; E53.8 Deficiency of other specified B group vitamins; Z95.2 Presence of prosthetic heart valve; Z79.01 Long term (current) use of anticoagulants; Z51.81 Encounter for therapeutic drug level monitoring
CPT/HCPCS: 36415; 80053; 80061; 81001; 82306; 82607; 82746; 84443; 85025; 85610; 99211

== ENCOUNTER 2024-07-01 15:28 | Outpatient (AMB) | payer MEDICARE, SELFPAY ==
[2024-07-01 15:37] LABS: Prothrombin Time Whole Bld POC 25.8 sec (11.1-13.5); ~PT, ~INR - Anti Coag Clinic 2.1 (0.9-1.1)
--- NOTE | 2024-07-01 15:44 | MHC.OFFVISCO ---
Intake Intake Visit Reasons: Anticoagulation Allergies latex Allergy (Intermediate, Verified 07/01/24 15:29) Rash Medication List - Last Reconciled 07/01/24 by Marjorie Suazo RN acetaminophen 500 mg PO Q6H PRN amoxicillin 2,000 mg (4 x 500 mg) PO ONCE 1 day ascorbate calcium (vitamin C) 1 g PO DAILY bupropion HCl XL (Wellbutrin XL) 300 mg PO QAM clonazepam 0.5 mg PO BID PRN cyanocobalamin (vitamin B-12) PO folic acid 0.8 mg PO DAILY lisinopril 10 mg PO BID warfarin See Protocol 1 mg orally 4MG X 1 DAYS/ 3MG X 6DAYS; Nursing Note INR: 2.0 in therapeutic range 2.0-3.0 However pt is concerned about her calcified blood vessels and her valve and prefers her INR closer to 3.0 Medications and supplements reviewed No changes in health, diet, medications, or supplements, Denies any signs and symptoms of bleeding or bruising or clotting. Bleeding, bruising, clotting discussed Nutritional guidance given Dose: 5mg x 1 day / 3mg x 6 days F/U INR: 1 week pt has concerns for her daughter who has substance abuse and mental health issues- emotional support given along with N and Comprehensive Care telephone numbers Patient verbalizes understanding of instructions given Anti-Coag Initial Assessment Social Hx Patient Tobacco Use Status: Never used Tobacco alcohol intake: never Alcohol intake frequency: does not drink Coding Level of Care Code Est Patient Level 1 Diagnoses Current use of anticoagulant therapy Z79.01 Assessment & Plan Assessment & Plan (1) Current use of anticoagulant therapy: Code(s): Z79.01 - roasterman (current) use of 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
== END 2024-07-01 15:48 | disposition home or self-care (01) ==
LOC: HO.ACS 15:28
PROVIDERS: PCP Internal Medicine; Visit Provider Internal Medicine Medical Oncology
DX: Z79.01 Long term (current) use of anticoagulants (principal)

== ENCOUNTER 2024-07-07 12:37 | Outpatient (RCR) | payer MEDICARE, SELFPAY ==
[2024-07-07 13:00] VITALS: BP 129/67; PULSE 69
--- NOTE | 2024-07-08 14:48 | MHC.PT.EP ---
[facility] [place] Office [place] Office [place] Office [address] Maye Murray [address] [phone] F: [phone] F: [phone] F: [phone] F: [phone] Physical Therapy Plan of Care Date of Evaluation: 07/07/24 Date of Surgery: Diagnosis: unsteady gait, unsteadiness on feet, age-related physical debility, problems related to living alone (MD Dx) Assessment: Anna is a pleasnt, motivated 83 y.o. females who is referred to PT by Dr. Artie Meehan MD with Dx of unsteady gait, unsteadiness on feet, age-related physical debility, problems related to living alone. She presents to PT with some weakness in LEs and challenges with static and dynamic balance, antalgic gait that shuffles with increased distance or fatigue and difficulty with making turns when walking. Patient current functional limitations are descending stairs, bend/squat, unsteady walking outdoors, turn or stop quickly. Patient will benefit from skilled PT to address aforementioned impairments and functional limitations to meet established goals. Frequency and Duration: The patient will be seen 1x/week for 4 weeks Short Term Goals: 2 weeks Patient demonstrates consistency and independence with HEP to self manage symptoms. Group Home Goals: 4 weeks 4 weeks Patient is able to perform SLS for 10 seconds without loss of balance to improve gait and reduce shuffling gait. Patient is able to perform static and dynamic balance exercises on AirEx to improve balance on unlevel/outdoor surfaces. [ End ] Treatment Plan: Modalities to reduce pain, spasms and effusion. Manual therapy to restore motion and function. Therapeutic exercise to improve strength and flexibility. Neuromuscular re-education for posture and balance. Therapeutic activities to return to functional activities of daily living. Electronically signed by: Peng Taylor, PT, DPT Please sign and return to therapist. Thank you for your referral.
--- NOTE | 2024-08-17 15:52 | MHC.PT.DC ---
[facility] [place] [facility] [place] [facility] [place] [facility] [address] Maye Murray [address] [phone] F: [phone] F: [phone] F: [phone] F: [phone] Physical Therapy Discharge Report Diagnosis: unsteady gait, unsteadiness on feet, age-related physical debility, problems related to living alone ( Dx) Date of Surgery: Date of Evaluation: 07/07/24 Date of Discharge: 08/17/24 Treatments to Date: 1 Cancellations to Date: 0 No Shows to Date: 4 Discharge Status: Visit Non-compliance Discharge Summary: Anna only attended initial PT evaluation and did not show to any FUP sessions. She was given HEP that addressed large muscle group strengthening in LEs and standing basic balance exercises at counter at home. She is discharged for non-compliance with attendance. Electronically signed by: Peng Taylor, PT, DPT Please sign and return to therapist. Thank you for your referral.
== END 2024-08-17 15:52 | disposition home or self-care (01) ==
LOC: HO.PT 12:37
PROVIDERS: PCP Internal Medicine; Visit Provider Internal Medicine
DX: R26.81 Unsteadiness on feet (principal); R54 Age-related physical debility; M51.369 Other intervertebral disc degeneration, lumbar region without mention of lumbar back pain or lower extremity pain; Z60.2 Problems related to living alone
CPT/HCPCS: 97162; 97535

== ENCOUNTER 2024-07-13 15:19 | Outpatient (AMB) | payer MEDICARE, SELFPAY ==
[2024-07-13 15:31] LABS: Prothrombin Time Whole Bld POC 20.9 sec (11.1-13.5); ~PT, ~INR - Anti Coag Clinic 1.7 (0.9-1.1)
--- NOTE | 2024-07-13 15:47 | MHC.OFFVISCO ---
Intake Intake Visit Reasons: Anticoagulation Allergies latex Allergy (Intermediate, Verified 07/13/24 15:24) Rash Medication List - Last Reconciled 07/13/24 by Marjorie Suazo RN acetaminophen 500 mg PO Q6H PRN amoxicillin 2,000 mg (4 x 500 mg) PO ONCE 1 day ascorbate calcium (vitamin C) 1 g PO DAILY bupropion HCl XL (Wellbutrin XL) 300 mg PO QAM clonazepam 0.5 mg PO BID PRN cyanocobalamin (vitamin B-12) PO folic acid 0.8 mg PO DAILY lisinopril 10 mg PO BID warfarin See Protocol 1 mg orally 4MG X 1 DAYS/ 3MG X 6DAYS; Nursing Note INR 1.7?? out of therapeutic range- had more greens that usual Medications and supplements reviewed Patient status: No changes in meds or health - very concerned about daughters health Medications or supplements: no changes Diet: good- Denies any signs and symptoms of bleeding or clotting or unusual bruising Bleeding, bruising, clotting discussed Nutritional guidance given: avoid greens Dose: 5mg today 4mg tomorrow 3mg and recheck Friday F/U INR Date : 07/15/2024 ?? Patient verbalizing understanding of instructions given. 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
--- OUTSIDE RECORDS SUMMARY | 2024-07-13 16:23 | XMS_ITS | Patient Health Record ---
Author Organization [facility] Address [address] [place] [phone] Care Team Providers Care Spice Fumigator Name Role Phone PCP, Does not have [...] [place] [address] [place] [address] [id number] RONNIE UNDERWOOD Self - patient is the insured Medical (General) History Medical History History ICD Code cataracts heart valve
== END 2024-07-13 16:00 | disposition home or self-care (01) ==
LOC: HO.ACS 15:19
PROVIDERS: PCP Internal Medicine; Visit Provider Internal Medicine Medical Oncology
DX: Z79.01 Long term (current) use of anticoagulants (principal)

== ENCOUNTER → 2024-07-13 15:19 | Outpatient (BNVA) | payer MEDICARE, SELFPAY | PROVIDERS: PCP Internal Medicine; Visit Provider Internal Medicine Medical Oncology | DX: Z95.2 Presence of prosthetic heart valve (principal); Z79.01 Long term (current) use of anticoagulants; Z51.81 Encounter for therapeutic drug level monitoring | CPT/HCPCS: 85610; 99211 ==

== ENCOUNTER 2024-07-20 13:41 | Outpatient (AMB) | payer MEDICARE, SELFPAY ==
--- OUTSIDE RECORDS SUMMARY | 2024-07-20 13:54 | XMS_ITS | Patient Health Record ---
Author Organization [facility] Address [address] [place] [phone] Care Team Providers Care Joint Creaser Name Role Phone PCP, Does not have [...] [place] [address] [place] [address] [id number] RONNIE UNDERWOOD Self - patient is the insured Medical (General) History Medical History History ICD Code cataracts heart valve
--- NOTE | 2024-07-20 14:09 | MHC.OFFVISCO ---
Intake Intake Visit Reasons: Anticoagulation Allergies latex Allergy (Intermediate, Verified 07/20/24 13:58) Rash Medication List - Last Reconciled 07/20/24 by Chayito Moctezuma RN acetaminophen 500 mg PO Q6H PRN amoxicillin 2,000 mg (4 x 500 mg) PO ONCE 1 day ascorbate calcium (vitamin C) 1 g PO DAILY bupropion HCl XL (Wellbutrin XL) 300 mg PO QAM clonazepam 0.5 mg PO BID PRN cyanocobalamin (vitamin B-12) PO folic acid 0.8 mg PO DAILY lisinopril 10 mg PO BID warfarin See Protocol 1 mg orally 4MG X 1 DAYS/ 3MG X 6DAYS; Nursing Note INR: 2.2 in therapeutic range 2-3 Medications and supplements reviewed No changes in health, diet, medications, or supplements, Denies any signs and symptoms of bleeding or bruising or clotting. Bleeding, bruising, clotting discussed Nutritional guidance given Dose: 3mg X 5 days and 4mg X 2 days (Tues & Fri) F/U INR: 1 week Patient verbalizes understanding of instructions given Anti-Coag Initial Assessment Social Hx Patient Tobacco Use Status: Never used Tobacco alcohol intake: never Alcohol intake frequency: does not drink Coding Level of Care Code Est Patient Level 1 Diagnoses Current use of anticoagulant therapy Z79.01 Results AMB INR Fingerstick AMB INR Fingerstick 2.2 Last Edit by Chayito Moctezuma RN on 07/20/24 14:05 interface delay Assessment & Plan Assessment & Plan (1) Current use of anticoagulant therapy: Code(s): 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
[2024-07-20 14:11] LABS: Prothrombin Time Whole Bld POC 26.5 sec (11.1-13.5); ~PT, ~INR - Anti Coag Clinic 2.2 (0.9-1.1)
== END 2024-07-20 14:11 | disposition home or self-care (01) ==
LOC: HO.ACS 13:41
PROVIDERS: PCP Internal Medicine; Visit Provider Internal Medicine Medical Oncology
DX: Z79.01 Long term (current) use of anticoagulants (principal)

== ENCOUNTER → 2024-07-20 13:41 | Outpatient (BNVA) | payer MEDICARE, SELFPAY | PROVIDERS: PCP Internal Medicine; Visit Provider Internal Medicine Medical Oncology | DX: Z95.2 Presence of prosthetic heart valve (principal); Z79.01 Long term (current) use of anticoagulants; Z51.81 Encounter for therapeutic drug level monitoring | CPT/HCPCS: 85610; 99211 ==

== ENCOUNTER → 2024-07-22 14:24 | Outpatient (REF) | payer MEDICARE, SELFPAY ==
--- OUTSIDE RECORDS SUMMARY | 2024-07-22 14:31 | XMS_ITS | Patient Health Record ---
Author Organization [facility] Address [address] [place] [address] Care Team Providers Care Biodiesel Technology Manager Name Role Phone PCP, Does not have [...] [place] [address] [place] [address] [id number] RONNIE UNDERWOOD Self - patient is the insured Medical (General) History Medical History History ICD Code cataracts heart valve
--- NOTE | 2024-07-22 14:32 | CA_ITS ---
Transthoracic Echocardiogram Patient (Last, First, Middle): Anna Castillo E Gender: Female Date of : 1940 Age: 83 Procedure Date: 07/22/2024 Procedure Type: Transthoracic Echocardiogram Location: OP Height: 154.94 cm Weight: 51.71 kg BSA: 1.49 m2 Heart Rate: 73 bpm BP: 122 / 86 mmHg Technical Specialist Cytology: WILLY Referring MD: Artie Meehan MD Bearing Press Machine Operator: David Donohue MD Symptoms: Z95.2 - Presence of prosthetic heart valve Study Quality: Adequate ECG Rhythm: Sinus Conclusions: - 1. Normal LV ejection fraction 55-60% with impaired relaxation filling pattern 2. Bioprosthetic valve appears to be functioning normally with mildly increased gradient of 16 mm Hg 3. Moderate mitral annular calcification with normal Dopplers 4. Normal RV systolic pressure 5. No gross pericardial effusion Findings Left Ventricle Normal left ventricular size, thickness, and systolic function. The visually estimated ejection fraction is between 55-60%. Spectral Doppler is indicative of an impaired relaxation filling pattern. Right Ventricle Normal right ventricular cavity size and systolic function. Atria The left atrium is normal in size. There is no evidence of interatrial shunt. The right atrium was not well visualized. Aortic Valve A bioprosthetic aortic valve is present. The prosthetic aortic valve appears to be functioning normally. The mean gradient is 16 mmHg. Mitral Valve There is mild anterior and moderate posterior mitral leaflet thickening. There is moderate mitral annular calcification. There is trace mitral valve regurgitation. There is no mitral valve stenosis. Pulmonic Valve The pulmonic valve is likely normal. Tricuspid Valve Normal tricuspid valve structure. There is mild to moderate tricuspid valve regurgitation. The right ventricular systolic pressure is normal. The right ventricular systolic pressure is 21 mmHg. Great Vessels All visible segments of the aorta are normal in size. The pulmonary artery was not well visualized. There is no dilatation of the ascending aorta measuring 3.20 cm. Venous The inferior vena cava is normal in size and collapses greater than 50% with inspiration. Pericardium/Pleural There is no evidence of pericardial effusion. Prior Study Comparison No prior study available for comparison. Measurements 2D Linear Measurements IVSd: 1.17 0.6-0.9/0.6-1.0 cm LVIDd: 3.42 3.9-5.3/4.2-5.9 cm LVIDd Index: 2.30 2.4-3.2/2.2-3.1 cm/m2 LVIDs: 1.92 2.0-3.6 cm LVPWd: 0.68 0.7-1.1 cm LV Mass: 110.44 67-162/88-224 g LV Mass Index: 74.12 43-95/49-115 g/m2 LVOT Diam: 2.40 3.0+(-)1.3 cm 2D Systolic Function EF 4C: 64.80 >55% EF 2C: 57.30 >55% EF BiP: 59.40 >55% Mitral Valve MV Pk E: 0.59 MV PK A: 1.12 MV Decel Time: 348.00 E/A: 0.50 E'Lateral: 8.59 E'Medial: 4.56 E/E' Med: 12.90 E/E' Lat: 6.80 PHT: 102.00 MVA PHT: 2.16 Decel Winkler: 1.69 Aortic Valve AoV Pk Enzo: 2.74 AoV Mn Enzo: 1.82 AoV VTI: 0.42 AoV Pk Grad: 30.00 Aov Mn Grad: 16.00 ZAHIRA Cont.VTI: 1.86 LVOT LVOT Pk Enzo: 0.91 LVOT Mn Enzo: 0.71 LVOT VTI: 0.18 LVOT Pk Grad: 3.00 LVOT Mn Grad: 2.00 LVOT Diam: 2.40 LVOT Area: 4.52 Diastolic Function MV Pk E: 0.59 MV Pk A: 1.12 E/A: 0.50 E'Medial: 4.56 E/E' Med: 12.90 E' Laterial: 8.59 E/E' Lat: 6.80 Right Ventricle TAPSE (mm): 13.60 TVS' Enzo: 10.80 Tricuspid Valve TR Pk Enzo: 2.13 TR Pk Grad: 18.00 RA Press: 3.00 RVSP: 21.00 Great Vessels Aorta Ao Asc: 3.20 2.1-3.4 cm Pulmonary Veins Pulm Vein S/D 2.50 Pulmonary Valve PV Pk Enzo: 0.92 Peak PV Grad: 3.00 Updated in Other Vendor System with Status of Final David Donohue MD electronically signed on 07/22/2024 4:12:01 PM with status of Final
== END ==
LOC: HO.CARD 14:24
PROVIDERS: PCP Internal Medicine; Visit Provider Internal Medicine
DX: Z95.2 Presence of prosthetic heart valve (principal); R06.00 Dyspnea, unspecified
CPT/HCPCS: 93306

== ENCOUNTER → 2024-07-22 14:32 | Outpatient (BNV) | payer MEDICARE, SELFPAY | PROVIDERS: PCP Internal Medicine; Visit Provider Internal Medicine Cardiovascular Disease | DX: I34.81 Nonrheumatic mitral (valve) annulus calcification (principal); Z95.3 Presence of xenogenic heart valve; I36.1 Nonrheumatic tricuspid (valve) insufficiency | CPT/HCPCS: 93306 ==

== ENCOUNTER 2024-07-26 14:39 | Outpatient (AMB) | payer MEDICARE, SELFPAY ==
--- NOTE | 2024-07-26 14:58 | MHC.OFFVISCO ---
Intake Intake Visit Reasons: Anticoagulation Allergies latex Allergy (Intermediate, Verified 07/26/24 14:49) Rash Medication List - Last Reconciled 07/26/24 by Chayito Moctezuma RN acetaminophen 500 mg PO Q6H PRN amoxicillin 2,000 mg (4 x 500 mg) PO ONCE 1 day ascorbate calcium (vitamin C) 1 g PO DAILY bupropion HCl XL (Wellbutrin XL) 300 mg PO QAM clonazepam 0.5 mg PO BID PRN cyanocobalamin (vitamin B-12) PO folic acid 0.8 mg PO DAILY lisinopril 10 mg PO BID warfarin See Protocol 1 mg orally 4MG X 1 DAYS/ 3MG X 6DAYS; Nursing Note INR: 2.7 in therapeutic range of 2-3 Pt states she is under stress. Her daughter is in the hospital. She woke up and could hardly move a muscle. She had an appt in 2 days but thought she couldn't move because her INR is out of range. Asked pt if she was eating and drinking enough water. She is going to get some gatorade and work on drinking more. She also stated she took more warfarin than instructed. she increased her dose from 3mg to 4mg a couple of days. Instructed pt not to do this. ACS needs to manage her warfarin. She said she would take exactly as instructed and return in one week. Medications and supplements reviewed No changes in health, diet, medications, or supplements, Denies any signs and symptoms of bleeding or bruising or clotting. Bleeding, bruising, clotting discussed Nutritional guidance given Dose: 3mg X 5 days and 4mg X 2 days (Tu/Fri) F/U INR: 1 week Patient verbalizes understanding of instructions with read back given Anti-Coag Initial Assessment Social Hx Patient Tobacco Use Status: Never used Tobacco alcohol intake: never Alcohol intake frequency: does not drink Coding Level of Care Code Est Patient Level 1 Diagnoses Current use of anticoagulant therapy Z79.01 Results AMB INR Fingerstick AMB INR Fingerstick 2.7 Last Edit by Chayito Moctezuma RN on 07/26/24 14:56 interface delay Assessment & Plan Assessment & Plan (1) Current use of anticoagulant therapy: Code(s): Z79.01 - long-term (current) use of 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
[2024-07-26 15:02] LABS: Prothrombin Time Whole Bld POC 32.1 sec (11.1-13.5); ~PT, ~INR - Anti Coag Clinic 2.7 (0.9-1.1)
--- OUTSIDE RECORDS SUMMARY | 2024-07-26 15:56 | XMS_ITS | Patient Health Record ---
Author Organization [facility] Address [address] [place] [id number] Care Team Providers Care Densitometer Reader Name Role Phone PCP, Does not have [...] [place] [address] [place] [address] [id number] RONNIE UNDERWOOD Self - patient is the insured Medical (General) History Medical History History ICD Code cataracts heart valve
== END 2024-07-26 15:16 | disposition home or self-care (01) ==
PROVIDERS: PCP Internal Medicine; Visit Provider Internal Medicine Medical Oncology
DX: Z79.01 Long term (current) use of anticoagulants (principal)

== ENCOUNTER → 2024-07-26 14:39 | Outpatient (BNVA) | payer MEDICARE, SELFPAY | PROVIDERS: PCP Internal Medicine; Visit Provider Internal Medicine Medical Oncology | DX: Z95.2 Presence of prosthetic heart valve (principal); Z51.81 Encounter for therapeutic drug level monitoring; Z79.01 Long term (current) use of anticoagulants | CPT/HCPCS: 85610; 99211 ==

== ENCOUNTER 2024-08-02 14:05 | Outpatient (AMB) | payer MEDICARE, SELFPAY ==
[2024-08-02 14:28] LABS: Prothrombin Time Whole Bld POC 21.9 sec (11.1-13.5); ~PT, ~INR - Anti Coag Clinic 1.8 (0.9-1.1)
--- NOTE | 2024-08-02 14:33 | MHC.OFFVISCO ---
Intake Intake Visit Reasons: Anticoagulation Allergies latex Allergy (Intermediate, Verified 08/02/24 14:23) Rash Medication List - Last Reconciled 08/02/24 by Chayito Moctezuma RN acetaminophen 500 mg PO Q6H PRN amoxicillin 2,000 mg (4 x 500 mg) PO ONCE 1 day ascorbate calcium (vitamin C) 1 g PO DAILY bupropion HCl XL (Wellbutrin XL) 300 mg PO QAM clonazepam 0.5 mg PO BID PRN cyanocobalamin (vitamin B-12) PO folic acid 0.8 mg PO DAILY lisinopril 10 mg PO BID warfarin See Protocol 1 mg orally 4MG X 1 DAYS/ 3MG X 6DAYS; Nursing Note INR: 1.8?out of therapeutic range of 2-3 Denies missed dose Medications and supplements reviewed Patient status: well Medications or supplements: no changes Diet: usual diet for pt Denies any signs and symptoms of bleeding or clotting or unusual bruising Bleeding, bruising, clotting discussed Nutritional guidance given: avoid greens today Dose: increase today's dose to 4mg (3mg), then 3mg X 5 days and 4mg X 2 days (Tues & Fri) F/U INR Date: 1 week?? Patient verbalizing understanding of instructions given. Anti-Coag Initial Assessment Social Hx Patient Tobacco Use Status: Never used Tobacco alcohol intake: never Alcohol intake frequency: does not drink Coding Level of Care Code Est Patient Level 1 Diagnoses Current use of anticoagulant therapy Z79.01 Results AMB INR Fingerstick AMB INR Fingerstick 1.8 Last Edit by Chayito Moctezuma RN on 08/02/24 14:30 interface delay Assessment & Plan Assessment & Plan (1) Current use of anticoagulant therapy: Code(s): Z79.01 - [facility] (current) use of 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
--- OUTSIDE RECORDS SUMMARY | 2024-08-02 16:03 | XMS_ITS | Patient Health Record ---
Author Organization [facility] Address [address] [place] [phone] Care Team Providers Care Air Compressor Engineer Name Role Phone PCP, Does not have [...] [place] [address] [place] [address] [id number] RONNIE UNDERWOOD Self - patient is the insured Medical (General) History Medical History History ICD Code cataracts heart valve
== END 2024-08-02 14:36 | disposition home or self-care (01) ==
LOC: HO.ACS 14:05
PROVIDERS: PCP Internal Medicine; Visit Provider Internal Medicine Medical Oncology
DX: Z79.01 Long term (current) use of anticoagulants (principal)

== ENCOUNTER → 2024-08-02 14:05 | Outpatient (BNVA) | payer MEDICARE, SELFPAY | PROVIDERS: PCP Internal Medicine; Visit Provider Internal Medicine Medical Oncology | DX: Z95.2 Presence of prosthetic heart valve (principal); Z79.01 Long term (current) use of anticoagulants; Z51.81 Encounter for therapeutic drug level monitoring | CPT/HCPCS: 85610; 99211 ==

== ENCOUNTER 2024-08-16 15:13 | Outpatient (AMB) | payer MEDICARE, SELFPAY ==
[2024-08-16 15:20] LABS: Prothrombin Time Whole Bld POC 25.3 sec (11.1-13.5); ~PT, ~INR - Anti Coag Clinic 2.1 (0.9-1.1)
--- NOTE | 2024-08-16 15:39 | MHC.OFFVISCO ---
Intake Intake Visit Reasons: Anticoagulation Allergies latex Allergy (Intermediate, Verified 08/02/24 14:23) Rash Nursing Note INR: 2.1 in therapeutic range- pt concerned with lower end INR She is also concerned about her daughter being transferred across the state for rehab - she was enc to speak with her outpatient case manager Medications and supplements reviewed No changes in health, diet, medications, or supplements, Denies any signs and symptoms of bleeding or bruising or clotting. Bleeding, bruising, clotting discussed Nutritional guidance given - eat a mix of fruits and vegetables to balance your INR and that you enjoy Dose: increase 4MG MWF/ 3MG X 4 DAYS per pt request F/U INR: 1 WEEK Patient verbalizes understanding of instructions given Anti-Coag Initial Assessment Social Hx Patient Tobacco Use Status: Never used Tobacco alcohol intake: never Alcohol intake frequency: does not drink Coding Level of Care Code Est Patient Level 1 Diagnoses Current use of anticoagulant therapy Z79.01 Results AMB INR Fingerstick AMB INR Fingerstick 2.1 Last Edit by Marjorie Suazo RN on 08/16/24 15:22 MANUAL ENTRY Assessment & Plan Assessment & Plan (1) Current use of anticoagulant therapy: Code(s): Z79.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
--- OUTSIDE RECORDS SUMMARY | 2024-08-16 16:47 | XMS_ITS | Patient Health Record ---
Author Organization [facility] Address [facility] [place] [address] Care Team Providers Care Neon Sign Mechanic Name Role Phone PCP, Does not have [...] [place] [address] [place] [address] [id number] RONNIE UNDERWOOD Self - patient is the insured Medical (General) History Medical History History ICD Code cataracts heart valve
== END 2024-08-16 16:11 | disposition home or self-care (01) ==
LOC: HO.ACS 15:13
PROVIDERS: PCP Internal Medicine; Visit Provider Internal Medicine Medical Oncology
DX: Z79.01 Long term (current) use of anticoagulants (principal)

== ENCOUNTER → 2024-08-16 15:13 | Outpatient (BNVA) | payer MEDICARE, SELFPAY | PROVIDERS: PCP Internal Medicine; Visit Provider Internal Medicine Medical Oncology | DX: Z95.2 Presence of prosthetic heart valve (principal); Z79.01 Long term (current) use of anticoagulants; Z51.81 Encounter for therapeutic drug level monitoring | CPT/HCPCS: 85610; 99211 ==

== ENCOUNTER 2024-08-23 15:32 | Outpatient (AMB) | payer MEDICARE, SELFPAY ==
--- OUTSIDE RECORDS SUMMARY | 2024-08-23 15:39 | XMS_ITS | Patient Health Record ---
Author Organization [facility] Address [facility] [place] [address] Care Team Providers Care Wet Roaster Name Role Phone PCP, Does not have [...] [place] [address] [place] [address] [id number] RONNIE UNDERWOOD Self - patient is the insured Medical (General) History Medical History History ICD Code cataracts heart valve
[2024-08-23 15:47] LABS: Prothrombin Time Whole Bld POC 31.1 sec (11.1-13.5); ~PT, ~INR - Anti Coag Clinic 2.6 (0.9-1.1)
--- NOTE | 2024-08-23 16:10 | MHC.OFFVISCO ---
Intake Intake Visit Reasons: Anticoagulation Allergies latex Allergy (Intermediate, Verified 08/23/24 15:33) Rash Medication List - Last Reconciled 08/23/24 by Marjorie Suazo RN acetaminophen 500 mg PO Q6H PRN amoxicillin 2,000 mg (4 x 500 mg) PO ONCE 1 day ascorbate calcium (vitamin C) 1 g PO DAILY bupropion HCl XL (Wellbutrin XL) 300 mg PO QAM clonazepam 0.5 mg PO BID PRN cyanocobalamin (vitamin B-12) PO folic acid 0.8 mg PO DAILY lisinopril 10 mg PO BID warfarin See Protocol 1 mg orally 4MG X 1 DAYS/ 3MG X 6DAYS; Nursing Note INR: 2.6 in therapeutic range Medications and supplements reviewed * Pt daughter ill and now at another facility [facility] - she is trying to have her move closer to home and is stressed about it. *She is having dental cleaning tomorrow and has been prescribed amoxicillin prior to the procedure - the way it was written confused her - she interpreted it to be to take it for 2 days - she was only prescribed 4 tablets to take prior the procedure - it may slightly increase the INR in a few days - being a x 1 day dose should only be very minimal affect Denies any signs and symptoms of bleeding or bruising or clotting. Bleeding, bruising, clotting discussed Nutritional guidance given - cont to eat a mix of fruits and vegetable Dose: 4mg x 3 days Tue Thur Sat this week/ 3mg x 4 days F/U INR: 1 week Patient verbalizes understanding of instructions given Anti-Coag Initial Assessment Social Hx Patient Tobacco Use Status: Never used Tobacco alcohol intake: never Alcohol intake frequency: does not drink Coding Level of Care Code Est Patient Level 1 Diagnoses Current use of anticoagulant therapy Z79.01 Results AMB INR Fingerstick AMB INR Fingerstick 2.6 Last Edit by Marjorie Suazo RN on 08/23/24 15:47 MANUAL ENTRY Assessment & Plan Assessment & Plan (1) Current use of anticoagulant therapy: Code(s): Z79.01 - skilled nursing (current) use of 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
== END 2024-08-23 16:18 | disposition home or self-care (01) ==
LOC: HO.ACS 15:32
PROVIDERS: PCP Internal Medicine; Visit Provider Internal Medicine Medical Oncology
DX: Z79.01 Long term (current) use of anticoagulants (principal)

== ENCOUNTER → 2024-08-23 15:32 | Outpatient (BNVA) | payer MEDICARE, SELFPAY | PROVIDERS: PCP Internal Medicine; Visit Provider Internal Medicine Medical Oncology | DX: Z95.2 Presence of prosthetic heart valve (principal); Z79.01 Long term (current) use of anticoagulants; Z51.81 Encounter for therapeutic drug level monitoring | CPT/HCPCS: 85610; 99211 ==

== ENCOUNTER 2024-09-13 14:46 | Outpatient (AMB) | payer MEDICARE, SELFPAY ==
--- OUTSIDE RECORDS SUMMARY | 2024-09-13 15:34 | XMS_ITS | Encounter Summary ---
Author Organization [facility] Address [facility] [employer] [facility] [address] [place] [address] Phone Care Team Providers Care Timber Hewer Name Role Phone Artie Meehan MD Primary Care Provider Artie Meehan MD Unavailable Rina Swenson MD Unavailable [phone] Laura Mock MD, DMD Primary Car e Provider Laura Mock MD, DMD Unavailable Laura Mock MD, DMD Unavailable Jakob Bob MD Unavailable Jose Cruz MD Unavailable [phone] Laura Mock MD, DMD Unavailable Pcp, Unknown Primary Care Provider UnavailLaura Ascencio MD, DMD Primary Car e Provider Pcp, Unknown Primary Care Provider UnavailNicole Arguello MD Primary Care Provide r Laura Mock MD, DMD Primary Car e Provider Reason for Visit * Reason Onset Date Comments Question regarding Symtoms 12/09/2017 [address]ia [address] of Dr[address] Moyer pt. is Anxious Encounter Details Date Type Department Care Team (Late st Contact Info) Description 12/09/2017 Telephone [facility] Urology [address] [facility] [address] [place] [address] De Los Santos Maureen Tristan [address] [place] [address] [email or web address] Question regarding Symtoms (Former pt. of Dr. Moyer ptKayleen is Anxious) Social History Tobacco Use Types Packs/Day Years Used Date Smoking Tobacco: Never Smokeless Tobacco: Never Alcohol Use Standard Drinks/Week Comments No 0 (1 standard drink = 0.6 oz pur e alcohol) Comments No Sex and Gender Information Value Date Recorded Sex Assigned at Female 10/08/2017 9:33 PM EDT Legal Sex Female 6:34 PM EST Gender Identity Female 10/08/2017 9:33 PM EDT Sexual Orientation Choose not to disclose 2021 12:33 PM EDT documented as of this encounter Plan of Treatment Upcoming Encounters Date Type Department Care Team (Late st Contact Info) Description 05/24/2024 Procedure Pass [facility] Radiology [address] [place] [address] 11/24/2024 1:15 PM EDT Appointment [facility] Radiology [address] [place] [address] Jim Zacarias MD [address] [place] [address] [email or web address] 11/24/2024 2:15 PM EDT Office Visit [facility] Thoracic Surgery [address] [facility] [address] [place] [address] Jim Zacarias MD [address] [address] [email or web address] 01/31/2025 1:00 PM EST Office Visit [facility] Cardiovascular Medicine [address] [facility] 5th [address], [address] [place] [address] Karena Betancur MD [address] [facility] [address] [place] [address] [email or web address] documented as of this encounter Visit Diagnoses Not on filedocumented in this encounter Additional Health Concerns Infection Onset Date Last Indicated Resolved Time CoV-Presumed 03/23/2022 03/23/2022 04/13/2022 1:23 AM EST CoV-Risk 11/12/2023 11/12/2023 11/12/2023 5:12 PM EDT COVID-19 11/12/2023 11/12/2023 12/03/2023 1:21 AM EDT documented as of this encounter Care Teams Timber Hewer Relationship Specialty Start Date End Date Artie Meehan MD PCP - General Internal Medicine 10/26/17 06/03/21 Laura Mock MD, DMD [address] [address] [email or web address] PCP - General Internal Medicine 06/04/21 11/11/23 Pcp, Unknown PCP - General 11/12/23 11/16/23 Laura Mock MD, DMD [address] [address] [email or web address] PCP - General Internal Medicine 11/17/23 12/28/23 Pcp, Unknown PCP - General 02/28/24 03/04/24 Nicole Newell MD [address] [place] [address] PCP - General 03/05/24 05/17/24 Laura Mock MD, DMD [address] [address] [email or web address] PCP - General Internal Medicine 05/18/24 Artie Meehan MD Internal Medicine 10/26/17 04/23/22 Rina Swenson MD Psychiatry 07/09/17 Laura Mock MD, DMD [address] [address] [email or web address] [employer] Attributed Provider 09/01/21 07/03/23 Laura Mock MD, DMD [address] [address] [email or web address] Insurance Assigned Provider 05/31/23 03/01/24 Jakob Bob MD [address] [place] [id number] [email or web address] Cardiology 08/22/23 Jose Cruz MD [address] [place] [address] Cardiology 08/22/23 Laura Mock MD, DMD [address] [address] [email or web address] [employer] Attributed Provider 09/01/21 07/03/23 [facility] [phone]. Consulting Provider 08/22/23 [facility] 12/24/23 03/11/24 yCril Morales [address] [place] [address] Nurse Practitioner 02/27/24 documented as of this encounter Additional Source Comments The information contained in this document represents components of the legal health record. It is not the complete legal health record.[facility]
--- OUTSIDE RECORDS SUMMARY | 2024-09-13 15:34 | XMS_ITS | Patient Health Record ---
Author Organization [facility] Address [facility] [place] [address] Care Team Providers Care Appointment Clerk Name Role Phone PCP, Does not have [...] [place] [address] [place] [address] [id number] RONNIE UNDERWOOD Self - patient is the insured Medical (General) History Medical History History ICD Code cataracts heart valve
--- NOTE | 2024-09-13 15:44 | MHC.OFFVISCO ---
Intake Intake Visit Reasons: Anticoagulation Allergies latex Allergy (Intermediate, Verified 09/13/24 15:39) Rash Medication List - Last Reconciled 09/13/24 by Marjorie Suazo RN acetaminophen 500 mg PO Q6H PRN amoxicillin 2,000 mg (4 x 500 mg) PO ONCE 1 day ascorbate calcium (vitamin C) 1 g PO DAILY bupropion HCl XL (Wellbutrin XL) 300 mg PO QAM clonazepam 0.5 mg PO BID PRN cyanocobalamin (vitamin B-12) PO folic acid 0.8 mg PO DAILY lisinopril 10 mg PO BID warfarin See Protocol 1 mg orally 4MG X 1 DAYS/ 3MG X 6DAYS; Nursing Note INR 3.9?out of therapeutic range 2.5-3.5 Medications and supplements reviewed Patient status: Pt is consumed with daughters poor health, discusses it over and over during her appt with ACS seeking advice, her life is consumed over it trying to have her transferred closer to home - she is currently at [facility]. Anna has so many questions regarding insurance and if she can manage her care at her home. Will ask Dr Belle for nurse navigators to reach out to patients Pt currently enc to call her [employer] insurance company to see what type of home care she can receive of what facility close will accept her insurance. Pt enc to take care of herself Medications or supplements: no changes Diet: same, enc to eat greens Denies any signs and symptoms of bleeding or clotting or unusual bruising Bleeding, bruising, clotting discussed Nutritional guidance given: enc to eat greens weekly Dose: hold today, then resume usual dose- 4mg x 3 days/ 3mg x 4 days F/U INR Date: 1 week ?? Will reach out to PCP for nurse navigation to speak with pt Patient verbalizing understanding of instructions given. Anti-Coag Initial Assessment Social Hx Patient Tobacco Use Status: Never used Tobacco alcohol intake: never Alcohol intake frequency: does not drink Coding Level of Care Code Est Patient Level 1 Diagnoses Current use of anticoagulant therapy Z79.01 Results AMB INR Fingerstick AMB INR Fingerstick 3.9 Last Edit by Marjorie Suazo RN on 09/13/24 15:49 MANUAL MEETING Assessment & Plan Assessment & Plan (1) Current use of anticoagulant therapy: Code(s): Z79.01 - [facility] (current) use of 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
[2024-09-13 15:45] LABS: Prothrombin Time Whole Bld POC 46.7 sec (11.1-13.5); ~PT, ~INR - Anti Coag Clinic 3.9 (0.9-1.1)
== END 2024-09-13 16:26 | disposition home or self-care (01) ==
LOC: HO.ACS 14:46
PROVIDERS: PCP Internal Medicine; Visit Provider Internal Medicine Medical Oncology
DX: Z79.01 Long term (current) use of anticoagulants (principal)

== ENCOUNTER → 2024-09-13 14:46 | Outpatient (BNVA) | payer MEDICARE, SELFPAY | PROVIDERS: PCP Internal Medicine; Visit Provider Internal Medicine Medical Oncology | DX: Z95.2 Presence of prosthetic heart valve (principal); Z79.01 Long term (current) use of anticoagulants; Z51.81 Encounter for therapeutic drug level monitoring | CPT/HCPCS: 85610; 99211 ==

== ENCOUNTER 2024-09-22 14:51 | Outpatient (AMB) | payer MEDICARE, SELFPAY ==
--- NOTE | 2024-09-22 15:09 | MHC.OFFVISCO ---
Intake Intake Visit Reasons: Anticoagulation Allergies latex Allergy (Intermediate, Verified 09/13/24 15:39) Rash Medication List - Last Reconciled 09/22/24 by Sylwia Molina RN acetaminophen 500 mg PO Q6H PRN amoxicillin 2,000 mg (4 x 500 mg) PO ONCE 1 day ascorbate calcium (vitamin C) 1 g PO DAILY bupropion HCl XL (Wellbutrin XL) 300 mg PO QAM clonazepam 0.5 mg PO BID PRN cyanocobalamin (vitamin B-12) PO folic acid 0.8 mg PO DAILY lisinopril 10 mg PO BID warfarin See Protocol 1 mg orally 4MG X 1 DAYS/ 3MG X 6DAYS; Nursing Note INR: 2.6- in therapeutic range of 2-3 Medications and supplements reviewed No changes in health, diet, medications, or supplements, Denies any signs and symptoms of bleeding or bruising or clotting. Bleeding, bruising, clotting discussed Nutritional guidance given Dose: 4mg x 3, 3mg x 4 F/U INR: 1 week Patient verbalizes understanding of instructions given pt states dental appt yesterday for several fillings. 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
--- OUTSIDE RECORDS SUMMARY | 2024-09-22 15:33 | XMS_ITS | Encounter Summary ---
Author Organization [facility] Address [facility] [email or web address] [facility] [address] [place] [address] Phone Care Team Providers Care Art Conservator Name Role Phone Artie Meehan MD Primary Care Provider Artie Meehan MD Unavailable Rina Swenson MD Unavailable [phone] Laura Mock MD, DMD Primary Car e Provider Laura Mock MD, DMD Unavailable Laura Mock MD, DMD Unavailable Jakob Bob MD Unavailable [phone] Jose Cruz MD Unavailable Laura Mock MD, DMD Unavailable Pcp, Unknown [...] (Late st Contact Info) Description 12/09/[address] [facility] Urology [address] [facility] ASB2-3 [place] [address] De Los Santos Maureen Tristan [address] [place] [address] [email or web address] Question regarding Symtoms (Former pt. of Dr. [...] st Contact Info) Description 05/24/2024 Procedure Pass [facility] Radiology [address] [place] [address] 11/24/2024 1:15 PM EDT Appointment [facility] Radiology [address] [place] [address] Jim Zacarias MD [address] [place] [address] [email or web address] 11/24/2024 2:15 PM EDT Office Visit [facility] Thoracic Surgery [address] [facility] [address] [place] [address] Jim Zacarias MD [address] [address] [email or web address] 01/31/2025 1:00 PM EST Office Visit [facility] Cardiovascular Medicine [address] [facility], 5th Floor, [address] [place] [address] Karena Betancur MD [address] [facility] [address] [facility] [address] [place] [address] [email or web address] Scheduled Procedures Name Priority Associated Diagnoses Date/Ti me COLONOSCOPY Abnormal colonoscopy documented as of this encounter Visit Diagnoses Not on filedocumented in this encounter Additional Health Concerns Infection Onset Date Last Indicated Resolved Time CoV-Presumed 03/23/2022 03/23/2022 04/13/2022 1:23 AM EST CoV-Risk 11/12/2023 11/12/2023 11/12/2023 5:12 PM EDT COVID-19 11/12/2023 11/12/2023 12/03/2023 1:21 AM EDT documented as of this encounter Care Teams Art Conservator Relationship Specialty Start Date End Date Artie Meehan MD [address] [place] [address] PCP - General Internal Medicine 10/26/17 06/03/21 Laura Mock MD, DMD [address] [address] [email or web address] PCP - General Internal Medicine 06/04/21 11/11/23 Pcp, Unknown PCP - General 11/12/23 11/16/23 Laura Mock MD, DMD [address] [address] [email or web address] PCP - General Internal Medicine 11/17/23 12/28/23 Pcp, Unknown PCP - General 02/28/24 03/04/24 Nicole Newell MD [address] [place] [address] PCP - General 03/05/24 05/17/24 Laura Mock MD, DMD [address] [address] [email or web address] du PCP - General Internal Medicine 05/18/24 Artie Meehan MD [address] [place] [address] [place] [address] Internal Medicine 10/26/17 04/23/22 Rina Swenson MD [address] [place] [address] [place] [address] Psychiatry 07/09/17 Laura Mock MD, DMD [address] [address] [email or web address] [employer] Attributed Provider 09/01/21 07/03/23 Laura Mock MD, DMD [address] [address] [email or web address] Insurance Assigned Provider 05/31/23 03/01/24 Jakob Bob MD [address] [place] [address] [email or web address] Cardiology 08/22/23 Jose Cruz MD [address] [place] [address] [email or web address] Cardiology 08/22/23 Laura Mock MD, DMD [address] [address] [email or web address] [employer] Attributed Provider 09/01/21 07/03/23 [facility] [phone]. Consulting Provider 08/22/23 [facility] Connect 12/24/23 03/11/24 Cyril Morales [address] [place] [address] Nurse Practitioner 02/27/24 documented as of this encounter Additional Source Comments The information contained in this document represents components of the legal health record. It is not the complete legal health record.[facility]
--- OUTSIDE RECORDS SUMMARY | 2024-09-22 15:33 | XMS_ITS | Patient Health Record ---
Author Organization [facility] Address [facility] [place] [address] Care Team Providers Care Coffee Machine Technician Name Role Phone PCP, Does not have [...] [place] [address] [place] [address] [id number] RONNIE UNDERWOOD Self - patient is the insured Medical (General) History Medical History History ICD Code cataracts heart valve
[2024-09-22 16:06] LABS: Prothrombin Time Whole Bld POC 31.7 sec (11.1-13.5); ~PT, ~INR - Anti Coag Clinic 2.6 (0.9-1.1)
== END 2024-09-22 15:23 | disposition home or self-care (01) ==
LOC: HO.ACS 14:51
PROVIDERS: PCP Internal Medicine; Visit Provider Internal Medicine Medical Oncology
DX: Z79.01 Long term (current) use of anticoagulants (principal)

== ENCOUNTER → 2024-09-22 14:51 | Outpatient (BNVA) | payer MEDICARE, SELFPAY | PROVIDERS: PCP Internal Medicine; Visit Provider Internal Medicine Medical Oncology | DX: Z95.2 Presence of prosthetic heart valve (principal); Z79.01 Long term (current) use of anticoagulants; Z51.81 Encounter for therapeutic drug level monitoring | CPT/HCPCS: 85610; 99211 ==

== ENCOUNTER 2024-09-30 13:43 | Outpatient (AMB) | payer MEDICARE, SELFPAY ==
--- OUTSIDE RECORDS SUMMARY | 2024-09-30 13:48 | XMS_ITS | Patient Health Record ---
Author Organization [facility] Address [address] [place] [address] Care Team Providers Care Adon Name Role Phone PCP, Does not have [...] [place] [address] [place] [address] [id number] RONNIE UNDERWOOD Self - patient is the insured Medical (General) History Medical History History ICD Code cataracts heart valve
[2024-09-30 13:58] LABS: Prothrombin Time Whole Bld POC 28.9 sec (11.1-13.5); ~PT, ~INR - Anti Coag Clinic 2.4 (0.9-1.1)
--- NOTE | 2024-09-30 14:13 | MHC.OFFVISCO ---
Intake Intake Visit Reasons: Anticoagulation Allergies latex Allergy (Intermediate, Verified 09/13/24 15:39) Rash Medication List - Last Reconciled 09/30/24 by Marjorie Suazo RN acetaminophen 500 mg PO Q6H PRN amoxicillin 2,000 mg (4 x 500 mg) PO ONCE 1 day ascorbate calcium (vitamin C) 1 g PO DAILY bupropion HCl XL (Wellbutrin XL) 300 mg PO QAM clonazepam 0.5 mg PO BID PRN cyanocobalamin (vitamin B-12) PO folic acid 0.8 mg PO DAILY lisinopril 10 mg PO BID warfarin See Protocol 1 mg orally 4MG X 1 DAYS/ 3MG X 6DAYS; Nursing Note INR: 2.4 in therapeutic range Medications and supplements reviewed No changes in health, diet, medications, or supplements, she is trying to have her daughter move closer to home- blank health care proxy forms given for her to review and to discuss with her family. Denies any signs and symptoms of bleeding or bruising or clotting. Bleeding, bruising, clotting discussed Nutritional guidance given Dose: 4MG MWF/ 3MG X 4 DAYS F/U INR: 1 WEEK Patient verbalizes understanding of instructions given Anti-Coag Initial Assessment Social Hx Patient Tobacco Use Status: Never used Tobacco alcohol intake: never Alcohol intake frequency: does not drink Coding Level of Care Code Est Patient Level 1 Diagnoses Current use of anticoagulant therapy Z79.01 Results AMB INR Fingerstick AMB INR Fingerstick 2.4 Last Edit by Marjorie Suazo RN on 09/30/24 13:59 manual entry Assessment & Plan Assessment & Plan (1) Current use of anticoagulant therapy: Code(s): Z79.01 - care home (current) use of 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
== END 2024-09-30 14:18 | disposition home or self-care (01) ==
LOC: HO.ACS 13:43
PROVIDERS: PCP Internal Medicine; Visit Provider Internal Medicine Medical Oncology
DX: Z79.01 Long term (current) use of anticoagulants (principal)

== ENCOUNTER → 2024-09-30 13:43 | Outpatient (BNVA) | payer MEDICARE, SELFPAY | PROVIDERS: PCP Internal Medicine; Visit Provider Internal Medicine Medical Oncology | DX: Z51.81 Encounter for therapeutic drug level monitoring (principal); Z79.01 Long term (current) use of anticoagulants | CPT/HCPCS: 85610; 99211 ==

== ENCOUNTER 2024-10-11 15:39 | Outpatient (AMB) | payer MEDICARE, SELFPAY ==
[2024-10-11 15:46] LABS: Prothrombin Time Whole Bld POC 26.4 sec (11.1-13.5); ~PT, ~INR - Anti Coag Clinic 2.2 (0.9-1.1)
--- NOTE | 2024-10-11 16:00 | MHC.OFFVISCO ---
Intake Intake Visit Reasons: Anticoagulation Allergies latex Allergy (Intermediate, Verified 10/11/24 15:39) Rash Medication List - Last Reconciled 10/11/24 by Marjorie Suazo RN acetaminophen 500 mg PO Q6H PRN amoxicillin 2,000 mg (4 x 500 mg) PO ONCE 1 day ascorbate calcium (vitamin C) 1 g PO DAILY bupropion HCl XL (Wellbutrin XL) 300 mg PO QAM clonazepam 0.5 mg PO BID PRN cyanocobalamin (vitamin B-12) PO folic acid 0.8 mg PO DAILY lisinopril 10 mg PO BID warfarin See Protocol 4 mg on Mondays, Wednesdays and Fridays then 3 mg on Tuesdays, , Saturdays and Sundays 30 days Nursing Note pt has daughter home and providing care INR: 2.2 in therapeutic range Medications and supplements reviewed No changes in health, diet, medications, or supplements, Denies any signs and symptoms of bleeding or bruising or clotting. Bleeding, bruising, clotting discussed Nutritional guidance given Dose: Keep same dose 4mg mwf/ 3mg x 4 days F/U INR: 1 week per pt request Patient verbalizes understanding of instructions given Anti-Coag Initial Assessment Social Hx Patient Tobacco Use Status: Never used Tobacco alcohol intake: never Alcohol intake frequency: does not drink Coding Level of Care Code Est Patient Level 1 Diagnoses Current use of anticoagulant therapy Z79.01 Results AMB INR Fingerstick AMB INR Fingerstick 2.2 Last Edit by Marjorie Suazo RN on 10/11/24 15:49 MANUAL ENTRY Assessment & Plan Assessment & Plan (1) Current use of anticoagulant therapy: Code(s): Z79.01 - group home (current) use of 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
--- OUTSIDE RECORDS SUMMARY | 2024-10-11 16:03 | XMS_ITS | Patient Health Record ---
Author Organization [facility] Address [facility] [place] [address] Care Team Providers Care Accounting Manager Assistant Controller Name Role Phone PCP, Does not have [...] [place] [address] [place] [address] [id number] RONNIE UNDERWOOD Self - patient is the insured Medical (General) History Medical History History ICD Code cataracts heart valve
--- OUTSIDE RECORDS SUMMARY | 2024-10-11 16:03 | XMS_ITS | Encounter Summary ---
Author Organization [facility] Address [facility] [employer] [facility] [address] [place] [address] Phone Care Team Providers Care Development Editor Name Role Phone Artie Meehan MD Primary Care Provider [phone] Artie Meehan MD Unavailable Rina Swenson MD Unavailable Laura Mock MD, DMD Primary Car e Provider Laura Mock MD, DMD Unavailable Laura Mock MD, DMD Unavailable Jakob Bob MD Unavailable Jose Cruz MD Unavailable Laura Mock MD, [...] (Late st Contact Info) Description 12/09/2017 Telephone [facility] Urology [address] [facility] ASB2-3 [place] [address] De Los Santos Maureen Tristan [address] [place] [address] [email or web address] Question regarding Symtoms (Former pt. [...] Procedure Pass [facility] Radiology [address] [place] [address] 11/24/2024 1:15 PM EDT Appointment [facility] Radiology [address] [place] [address] Jim Zacarias MD [address] [place] [address] [email or web address] 11/24/2024 2:15 PM EDT Office Visit [facility] Thoracic Surgery [address] [facility] [address] [place] [address] Jim Zacarias MD [address] [address] [email or web address] 01/31/2025 1:00 PM EST Office Visit [facility] Cardiovascular Medicine [address] [facility], 5th Floor, [address] [place] [address] Karena Betancur MD [address] [facility] [address] [facility] 5B [place] [address] [email or web address] Scheduled Procedures Name Priority Associated Diagnoses Date/Ti me COLONOSCOPY Abnormal colonoscopy documented as of this encounter Visit Diagnoses Not on filedocumented in this encounter Additional Health Concerns Infection Onset Date Last Indicated Resolved Time CoV-Presumed 03/23/2022 03/23/2022 04/13/2022 1:23 AM EST CoV-Risk 11/12/2023 11/12/2023 11/12/2023 5:12 PM EDT COVID-19 11/12/2023 11/12/2023 12/03/2023 1:21 AM EDT documented as of this encounter Care Teams Development Editor Relationship Specialty Start Date End Date Artie Meehan MD [address] [place] [address] PCP - General Internal Medicine 10/26/17 06/03/21 Laura Mock MD, DMD [address] [address] [email or web address] PCP - General Internal Medicine 06/04/21 11/11/23 Pcp, Unknown PCP - General 11/12/23 11/16/23 Laura Mock MD, DMD [address] [address] [email or web address] PCP - General Internal Medicine 11/17/23 12/28/23 Pcp, Unknown PCP - General 02/28/24 03/04/24 Nicole Newell MD [address] [place] [address] PCP - General 03/05/24 05/17/24 Laura Mock MD, DMD [address] [address] [email or web address] du PCP - General Internal Medicine 05/18/24 Artie Meehan MD [address] [place] [address] [place] [address] Internal Medicine 10/26/17 04/23/22 Rina Swenson MD [address] [place] [address] [place] [address] Psychiatry 07/09/17 Laura Mock MD, DMD [address] [address] [email or web address] [employer] Attributed Provider 09/01/21 07/03/23 Laura Mock MD, DMD [address] [address] [email or web address] Insurance Assigned Provider 05/31/23 03/01/24 Jakob Bob MD [address] [place] [address] [email or web address] Cardiology 08/22/23 Jose Cruz MD [address] [place] [address] [email or web address] Cardiology 08/22/23 Laura Mock MD, DMD [address] [address] [email or web address] [employer] Attributed Provider 09/01/21 07/03/23 [facility] [phone]. Consulting Provider 08/22/23 [facility] Connect 12/24/23 03/11/24 Cyril Morales [address] [place] [address] Nurse Practitioner 02/27/24 documented as of this encounter Additional Source Comments The information contained in this document represents components of the legal health record. It is not the complete legal health record.[facility]
== END 2024-10-11 16:09 | disposition home or self-care (01) ==
LOC: HO.ACS 15:39
PROVIDERS: PCP Internal Medicine; Visit Provider Internal Medicine Medical Oncology
DX: Z79.01 Long term (current) use of anticoagulants (principal)

== ENCOUNTER → 2024-10-11 15:39 | Outpatient (BNVA) | payer MEDICARE, SELFPAY | PROVIDERS: PCP Internal Medicine; Visit Provider Internal Medicine Medical Oncology | DX: Z51.81 Encounter for therapeutic drug level monitoring (principal); Z79.01 Long term (current) use of anticoagulants | CPT/HCPCS: 85610; 99211 ==

== ENCOUNTER 2024-10-28 14:01 | Outpatient (AMB) | payer MEDICARE, SELFPAY ==
--- OUTSIDE RECORDS SUMMARY | 2024-10-22 10:55 | XMS_ITS | Encounter Summary ---
Author Organization [facility] Address [facility] [address] [place] [address] Phone Care Team Providers Care Quartz Cutter Name Role Phone Artie Meehan MD Primary Care Provider [phone] Artie Meehan MD Unavailable Rina Swenson MD Unavailable Laura Mock MD, DMD Primary Car e Provider Laura Mock MD, DMD Unavailable Laura Mock MD, DMD Unavailable Jakob Bob MD Unavailable Jose Cruz MD Unavailable [phone] Laura Mock MD, DMD Unavailable Pcp, Unknown Primary Care Provider UnavailLaura Ascencio MD, DMD Primary Car e Provider Pcp, Unknown Primary Care Provider UnavailNicole Arguello MD Primary Care Provide r Laura Mock MD, DMD Primary Car e Provider Encounter Details Date Type Department Care Team (Late st Contact Info) Description 11/07/2020 Procedure Pass [facility] [address] [place] [address] Social History Tobacco Use Types Packs/Day Years [...] Upcoming Encounters Date Type Department Care Team ([facility] Contact Info) Description 05/24/2024 Procedure Pass [facility] Radiology 75 [place] [address] 11/24/2024 1:15 PM EDT Appointment [facility] Radiology [address] [place] [address] Jim Zacarias MD [phone] [place] [address] [email or web address] 11/24/2024 2:15 PM EDT Office Visit [facility] Thoracic Surgery 15 [facility] 204 [place] [address] Jim Zacarias MD [phone] [place] [address] [email or web address] 01/31/2025 1:00 PM EST Office Visit [facility] Cardiovascular Medicine 32 [facility], 5th Floor, [address] [place] [address] Karena Betancur MD 55 [facility] 5B [place] [address] [email or web address] Scheduled Procedures Name Priority Associated [...] documented as of this encounter Care Teams Quartz Cutter Relationship Specialty Start Date End Date Artie Meehan MD [address] [place] [address] Dr Dior [address] [place] [address] PCP - General Internal Medicine 10/26/17 06/03/21 Laura Mock MD, DMD [address] [address] [email or web address] PCP - General Internal Medicine 06/04/21 11/11/23 Pcp, Unknown PCP - General 11/12/23 11/16/23 Laura Mock MD, DMD [address] [address] [email or web address] PCP - General Internal Medicine 11/17/23 12/28/23 Pcp, Unknown PCP - General 02/28/24 03/04/24 [place] [address] [address] PCP - General 03/05/24 05/17/24 Laura Mock MD, DMD [address] [address] [email or web address] PCP - General Internal Medicine 05/18/24 Artie Meehan MD [address] [place] [address] Dr Dior Elisabeth [place] YOLIE [address] Internal Medicine 10/26/17 04/23/22 Rina Swenosn MD [address] [place] [address] [place] [address] Psychiatry 07/09/17 Laura Mock MD, DMD [address] [address] [email or web address] [employer] Attributed Provider 09/01/21 07/03/23 Laura Mock MD, DMD [address] [address] [email or web address] du Insurance Assigned Provider 05/31/23 03/01/24 Jakob Bob MD [address] [place] [address] [email or web address] Cardiology 08/22/23 Jose Cruz MD [address] [place] [address], [address] [place] [address] [email or web address] Cardiology 08/22/23 Laura Mock MD, DMD [address] [address] [email or web address]. du [employer] Attributed Provider 09/01/21 07/03/23 [facility] [phone]. Consulting Provider 08/22/23 [facility] Connect 12/24/23 03/11/24 Cyril Morales [address] [place] [address] Nurse Practitioner 02/27/24 documented as of this encounter Additional Source Comments The information contained in this document represents components of the legal health record. It is not the complete legal health record.[facility]
--- OUTSIDE RECORDS SUMMARY | 2024-10-22 10:55 | XMS_ITS | Encounter Summary ---
Author Organization [facility] Address [facility] [employer] [address] [address] Phone Care Team Providers Care Jumpbasting Canvas Baster Name Role Phone Artie Meehan MD Unavailable Rina Swenson MD Unavailable [phone] Laura Mock MD, DMD Primary Car e [...] Care Team (Late st Contact Info) Description 02/18/2022 Anti-coag visit [facility] Anticoagulation Clinic [address] [place] [address] Rony Amaro, [facility] [address] [facility] 3rd [place] [address] [email or web address] Social History Tobacco Use Types Packs/Day Years [...] st Contact Info) Description 05/24/2024 Procedure Pass [facility] Radiology [address] [place] [address] 11/24/2024 1:15 PM EDT Appointment [facility] Radiology [address] [place] [address] Jim Zacarias MD [address] [address] [email or web address] 11/24/2024 2:15 PM EDT Office Visit [facility] Thoracic Surgery 15 [facility] 204 [place] [address] Jim Zacarias MD [address] [address] [email or web address] 01/31/2025 1:00 PM EST Office Visit [facility] Cardiovascular Medicine 32 [facility], 5th Floor, [address] [place] [address] Karena Betancur MD 55 [facility] 5B [place] [address] [email or web address] Scheduled Procedures Name Priority Associated Diagnoses Date/Ti me COLONOSCOPY Abnormal colonoscopy documented as of this encounter Visit Diagnoses Not on filedocumented in this encounter Additional Health Concerns Infection Onset Date Last Indicated Resolved Time CoV-Presumed 03/23/2022 03/23/2022 04/13/2022 1:23 AM EST CoV-Risk 11/12/2023 11/12/2023 11/12/2023 5:12 PM EDT COVID-19 11/12/2023 11/12/2023 12/03/2023 1:21 AM EDT Assessment Noted Time PHQ-9 Depression Total Score: 22 022 2:07 PM EDT PHQ-2 Depression Total Score: 5 11/09/19 22 2:07 PM EDT documented as of this encounter Care Teams Jumpbasting Canvas Baster Relationship Specialty Start Date End Date Laura Mock MD, DMD [address] [address] [email or web address] PCP - General Internal Medicine 06/04/21 11/11/23 Pcp, Unknown PCP - General 11/12/23 11/16/23 Laura Mock MD, DMD [address] [address] [email or web address] PCP - General Internal Medicine 11/17/23 12/28/23 Pcp, Unknown PCP - General 02/28/24 03/04/24 [place] [address] [address] PCP - General 03/05/24 05/17/24 Laura Mock MD, DMD [address] [address] [email or web address] du PCP - General Internal Medicine 05/18/24 Artie Meehan MD [address] [place] [address] [place] [address] Internal Medicine 10/26/17 04/23/22 Rina Swenson MD [address] [place] [address] [place] [address] Psychiatry 07/09/17 Laura Mock MD, DMD [address] [address] [email or web address] [employer] Attributed Provider 09/01/21 07/03/23 Laura Mock MD, DMD [address] [address] [email or web address] du Insurance Assigned Provider 05/31/23 03/01/24 Jakob Bob MD [address] [place] [address] [email or web address] Cardiology 08/22/23 Jose Cruz MD [address] [place] [address] [email or web address] Cardiology 08/22/23 Laura Mock MD, DMD [address] [address] [email or web address]. du [employer] Attributed Provider 09/01/21 07/03/23 [facility] [phone]. Consulting Provider 08/22/23 [facility] Connect 12/24/23 03/11/24 Cyril Morales [address] [place] [phone] Nurse Practitioner 02/27/24 documented as of this encounter Additional Source Comments The information contained in this document represents components of the legal health record. It is not the complete legal health record.[facility]
--- OUTSIDE RECORDS SUMMARY | 2024-10-22 10:55 | XMS_ITS | Encounter Summary ---
Author Organization [facility] Address [facility] [address] [place] [address] Phone Care Team Providers Care Perfect Bind Machine Operator Name Role Phone Artie Meehan MD Primary [...] Care Team (Late st Contact Info) Description 11/15/2020 Transcribe Orders Virtual Department 30 [place] [address] Artie Meehan MD [address] [place] [address] [place] [address] Asymptomatic menopausal state (Primary Dx); Age-related osteoporosis without current pathological fracture Social History Tobacco Use Types Packs/Day Years [...] st Contact Info) Description 05/24/2024 Procedure Pass [facility] Radiology [address] [place] [address] 11/24/2024 1:15 PM EDT Appointment [facility] Radiology [address] [place] [address] Jim Zacarias MD [address] [address] [email or web address] 11/24/2024 2:15 PM EDT Office Visit [facility] Thoracic Surgery 15 [facility] 204 [place] [address] Jim Zacarias MD [address] [address] [email or web address] 01/31/2025 1:00 PM EST Office Visit [facility] Cardiovascular Medicine 32 [facility], 5th Floor, [address] [place] [address] Karena Betancur MD 55 [facility] 5B [place] [address] [email or web address] Scheduled Procedures Name Priority Associated Diagnoses Date/Ti me COLONOSCOPY Abnormal colonoscopy documented as of this encounter Results * BD DXA AXIAL (SPINE) WITH HIP (01/24/2021 8:57 AM EST) Anatomical Region Laterality Modality Bone Density Bone Density 01/24/2021 9:08 AM EST Impressions 01/24/2021 9:10 AM EST 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 Narrative 01/24/2021 9:10 AM EST COMPARISON: 06/28/2016. BONE DENSITY FINDINGS: History: This is a 80-year-old postmenopausal female. Evaluation of the lumbar spine and hips was performed and felt to be technically adequate. L1-L4 vertebral bodies total bone mineral density was calculated at 0.555 gm/cm2 with a T-score of -4.5 falling within the WHO classification of osteoporosis. Z-score of -1.7. High fracture risk. Right femoral neck bone mineral density was calculated at 0.409 gm/cm2 with a T- score of -4 falling within the WHO classification of osteoporosis. Z-score of -1.6. Total Right hip bone mineral density was calculated at 0.565 gm/cm2 with a T- score of -3.1 falling within the WHO classification of osteoporosis. Z-score of -0.9. Left femoral neck bone mineral density was calculated at 0.468 gm/cm2 with a T- score of -3.4 falling within the WHO classification of osteoporosis. Z-score of -1. Total Left hip bone mineral density was calculated at gm/cm2 with a T-score of 0.624 falling within the WHO classification of -2.6. Z-score of osteoporosis. -0.4 Procedure Note Alex Chavez MD - 01/24/2021 COMPARISON: 06/28/2016. BONE DENSITY FINDINGS: History: This is a 80-year-old postmenopausal female. Evaluation of the lumbar spine and hips was performed and felt to betechnically adequate. L1-L4 vertebral bodies total bone mineral density was calculated at 0.555gm/cm2 with a T-score of -4.5 falling within the WHO classification ofosteoporosis. Z-score of -1.7. High fracture risk. Right femoral neck bone mineral density was calculated at 0.409 gm/xz6npzq a T- score of -4 falling within the WHO classification ofosteoporosis. Z-score of -1.6. Total Right hip bone mineral density was calculated at 0.565 gm/cm2 with aT- score of -3.1 falling within the WHO classification of osteoporosis.Z-score of -0.9. Left femoral neck bone mineral density was calculated at 0.468 gm/cm2 witha T- score of -3.4 falling within the WHO classification of osteoporosis.Z-score of -1. Total Left hip bone mineral density was calculated at gm/cm2 with aT-score of 0.624 falling within the WHO classification of -2.6. Z-scoreof osteoporosis. -0.4 IMPRESSION: 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 Artie Meehan MD IMG BD BONE DENSITY DEXA Final Result documented in this encounter Visit Diagnoses Diagnosis Asymptomatic menopausal state- Primary Age-related osteoporosis without current pathological fracture Asymptomatic menopausal state Age-related osteoporosis without current pathological fracture documented in this encounter Additional Health Concerns Infection Onset Date Last Indicated Resolved Time CoV-Presumed 03/23/2022 03/23/2022 04/13/2022 1:23 AM EST CoV-Risk 11/12/2023 11/12/2023 11/12/2023 5:12 PM EDT COVID-19 11/12/2023 11/12/2023 12/03/2023 1:21 AM EDT documented as of this encounter Care Teams Perfect Bind Machine Operator Relationship Specialty Start Date End Date Artie Meehan MD [address] [place] [address] [place] [address] PCP - General Internal Medicine 10/26/17 06/03/21 Laura Mock MD, DMD [address] [address] [facility] [address] [email or web address] PCP - General Internal Medicine 06/04/21 11/11/23 Pcp, Unknown PCP - General 11/12/23 11/16/23 Laura Mock MD, DMD 1 [facility] [address] [place] [address] [email or web address] PCP - General Internal Medicine 11/17/23 12/28/23 Pcp, Unknown PCP - General 02/28/24 03/04/24 Nicole Newell MD [address] [place] [address] PCP - General 03/05/24 05/17/24 Laura Mock MD, DMD [address] [address] [email or web address] PCP - General Internal Medicine 05/18/24 Artie Meehan MD [address] [place] [address] Dr [address] [place] [address] Internal Medicine 10/26/17 04/23/22 Rina Swenson MD [address] [place] [address] Dr D[address] [place] [address] Psychiatry 07/09/17 Laura oMck MD, DMD [address] [address] [email or web address] Attributed Provider 09/01/21 07/03/23 Laura Mock MD, DMD 1 [facility] [address] [place] [address] [place] [address] [email or web address] Insurance Assigned Provider 05/31/23 03/01/24 Jakob Bob MD [address] [place] [address] [email or web address] Cardiology 08/22/23 Jose Cruz MD [address] [place] [address] 301 [place] [address] [email or web address] Cardiology 08/22/23 Laura Mock MD, DMD [address] [address] [email or web address] Attributed Provider 09/01/21 07/03/23 [facility] [phone]. Consulting Provider 08/22/23 [facility] Connect 12/24/23 03/11/24 Cyril Morales [address] [place] [phone] Nurse Practitioner 02/27/24 documented as of this encounter Additional Source Comments The information contained in this document represents components of the legal health record. It is not the complete legal health record.[facility]
--- OUTSIDE RECORDS SUMMARY | 2024-10-22 10:55 | XMS_ITS | Encounter Summary ---
Author Organization [facility] Address [facility] [employer] [facility] [address] [place] [address] Phone Care Team Providers Care Editorial Clerk Name Role Phone Artie Meehan MD Primary Care Provider [phone] Artie Meehan MD Unavailable Rina Swenson MD Unavailable Laura Mock MD, DMD Primary Car e Provider Laura Mock MD, DMD Unavailable Laura Mock MD, DMD Unavailable Jakob Bob MD Unavailable Jose Cruz MD Unavailable [phone] Laura Mock MD, DMD Unavailable Pcp, Unknown Primary Care Provider UnavailLaura Ascencio MD, DMD Primary Car e Provider Pcp, Unknown Primary Care Provider UnavailNicole Arguello MD Primary Care Provide r Laura Mock MD, DMD Primary Car e Provider Reason for Visit * Reason Onset Date Comments Question regarding Symtoms 12/09/2017 [address]ia j[address] pt[address] of Dr. Myoer pt. is Anxious Encounter Details Date Type Department Care Team (Late st Contact Info) Description 12/09/2017 Telephone [facility] Urology [address] [facility] [address] [place] [address] De Los Santos Maureen Tristan 15 [place] [address] [email or web address] Question regarding Symtoms (Former pt. [...] st Contact Info) Description 05/24/2024 Procedure Pass [facility] Radiology 75 [place] [address] 11/24/2024 1:15 PM EDT Appointment [facility] Radiology 75 [place] [address] Jim Zacarias MD [address] [place] [address] [email or web address] 11/24/2024 2:15 PM EDT Office Visit [facility] Thoracic Surgery [facility] [address] [place] [address] Jim Zacarias MD [address] [address] [email or web address] 01/31/2025 1:00 PM EST Office [place] [facility] [place] 32 [facility], 5th Floor, [address] [place] [address] Karena Betancur MD [address] [facility] [address] [facility] 5B [place] [address] [email or web address] Scheduled Procedures Name Priority Associated Diagnoses Date/Ti me COLONOSCOPY Abnormal colonoscopy documented as of this encounter Visit Diagnoses Not on filedocumented in this encounter Additional Health Concerns Infection Onset Date Last Indicated Resolved Time CoV-Presumed 03/23/2022 03/23/2022 04/13/2022 1:23 AM EST CoV-Risk 11/12/2023 11/12/2023 11/12/2023 5:12 PM EDT COVID-19 11/12/2023 11/12/2023 12/03/2023 1:21 AM EDT documented as of this encounter Care Teams Editorial Clerk Relationship Specialty Start Date End Date Artie Meehan MD [address] [place] [address] PCP - General Internal Medicine 10/26/17 06/03/21 Laura Mock MD, DMD [address] [address] [email or web address] PCP - General Internal Medicine 06/04/21 11/11/23 Pcp, Unknown PCP - General 11/12/23 11/16/23 Laura Mock MD, DMD [address] [address] [email or web address] PCP - General Internal Medicine 11/17/23 12/28/23 Pcp, Unknown PCP - General 02/28/24 03/04/24 Nicole Newell MD [address] [place] [address] PCP - General 03/05/24 05/17/24 Laura Mock MD, DMD [address] [address] [email or web address] PCP - General Internal Medicine 05/18/24 Artie Meehan MD [address] [place] [address] [place] [address] Internal Medicine 10/26/17 04/23/22 Rina Swenson MD [address] [place] [address] [place] [address] Psychiatry 07/09/17 Laura Mock MD, DMD [address] [address] [email or web address] Attributed Provider 09/01/21 07/03/23 Laura Mock MD, DMD [address] [address] [email or web address] Insurance Assigned Provider 05/31/23 03/01/24 Jakob Bob MD [address] [place] [address] [email or web address] Cardiology 08/22/23 Jose Cruz MD [address] [place] [address] [email or web address] Cardiology 08/22/23 Laura Mock MD, DMD [address] [address] [email or web address] Attributed Provider 09/01/21 07/03/23 [facility] [phone]. Consulting Provider 08/22/23 [facility] Connect 12/24/23 03/11/24 Cyril Morales [address] [place] [address] Nurse Practitioner 02/27/24 documented as of this encounter Additional Source Comments The information contained in this document represents components of the legal health record. It is not the complete legal health record.[facility]
--- OUTSIDE RECORDS SUMMARY | 2024-10-22 10:56 | XMS_ITS | Encounter Summary ---
Author Organization [facility] Address [facility] [employer] [facility] [address] [place] [address] Phone Care Team Providers Care Veneer Stock Grader Name Role Phone Artie Meehan MD Primary Care Provider Artie Meehan MD Unavailable Rina Swenson MD Unavailable Laura Mock MD, DMD Primary Car e Provider Laura Mock MD, DMD Unavailable Laura Mock MD, DMD Unavailable Jakob Bob MD Unavailable Jose Cruz MD Unavailable Laura Mock MD, DMD Unavailable Pcp, Unknown Primary Care Provider UnavailLuara Ascencio MD, DMD Primary Car e Provider Pcp, Unknown Primary Care Provider UnavailNicole Arguello MD Primary Care Provide r Laura Mock MD, DMD Primary Car e Provider Encounter Details Date Type Department Care Team (Late st Contact Info) Description 12/16/2019 Ancillary Orders Virtual Department 30 [place] [address] Artie Meehan MD [address] [place] [address] [place] [address] Breast screening Social History Tobacco Use Types Packs/Day Years [...] Upcoming Encounters Date Type Department Care Team ([facility] Contact Info) Description 05/24/2024 Procedure Pass [facility] Radiology [address] [place] [address] 11/24/2024 1:15 PM EDT Appointment [facility] Radiology [address] [place] [address] Jim Zacarias MD [address] [address] [email or web address] 11/24/2024 2:15 PM EDT Office Visit [facility] Thoracic Surgery 15 [facility] 204 [place] [address] Jim Zacarias MD [phone] [place] [address] [email or web address] 01/31/2025 1:00 PM EST Office [place] [facility] [place] 32 [facility], 5th Floor, [address] [place] [address] Karena Betancur MD 55 [facility] Y[address] [place] [address] [email or web address] Scheduled Procedures Name Priority Associated Diagnoses Date/Ti sd COLONOSCOPY Abnormal colonoscopy documented as of this encounter Results * BI MAMMOGRAM SCREENING WITH TOMOSYNTHESIS WITH CAD (BILATERAL) (07/18/2020 7:47 AM EDT) Anatomical Region Laterality Modality Breast Left, Breast Right, Breast Bilateral Bila teral Mammography 07/18/2020 12:4 4 PM EDT Impressions 07/18/2020 12:53 PM EDT No mammographic signs of malignancy. Annual screening is recommended. BI-RADS CATEGORY: 2 - Benign finding. DENSITY: The breast tissue is heterogeneously dense, which could obscure a lesion on mammography. Narrative 07/18/2020 12:53 PM EDT Bilateral mammography is performed in conjunction with computed aided detection. 3-D tomography along with 2-D C view imaging was also performed. Comparison made to previous dated as far back as 10/20/2012 and as recent as 01/05/2019. Stable diffuse bilateral microcalcifications and stable bilateral vascular calcifications. No suspicious masses, areas of architectural distortion or suspicious microcalcifications. Procedure Note Danis Bautista MD - 07/18/2020 Bilateral mammography is performed in conjunction with computed aideddetection. 3-D tomography along with 2-D C view imaging was alsoperformed. Comparison made to previous dated as far back as 10/20/2012 andas recent as 01/05/2019. Stable diffuse bilateral microcalcifications and stable bilateral vascularcalcifications. No suspicious masses, areas of architectural distortion or suspiciousmicrocalcifications. IMPRESSION: No mammographic signs of malignancy. Annual screening is recommended. BI-RADS CATEGORY: 2 - Benign finding. DENSITY: The breast tissue is heterogeneously dense, which could obscurea lesion on mammography. Artie Meehan MD IMG MG EXAMS Final Res ult documented in this encounter Visit Diagnoses Diagnosis Breast screening Breast screening, unspecified Breast screening Breast screening, unspecified documented in this encounter Additional Health Concerns Infection Onset Date Last Indicated Resolved Time CoV-Presumed 03/23/2022 03/23/2022 04/13/2022 1:23 AM EST CoV-Risk 11/12/2023 11/12/2023 11/12/2023 5:12 PM EDT COVID-19 11/12/2023 11/12/2023 12/03/2023 1:21 AM EDT documented as of this encounter Care Teams Veneer Stock Grader Relationship Specialty Start Date End Date Artie Meehan MD [address] [place] [address] [place] [address] PCP - General Internal Medicine 10/26/17 06/03/21 Laura Mock MD, DMD [address] [address] [email or web address] PCP - General Internal Medicine 06/04/21 11/11/23 Pcp, Unknown PCP - General 11/12/23 11/16/23 Laura Mock MD, DMD [address] [address] [email or web address] PCP - General Internal Medicine 11/17/23 12/28/23 Pcp, Unknown PCP - General 02/28/24 03/04/24 [place] [address] [address] PCP - General 03/05/24 05/17/24 Laura Mock MD, DMD [address] [address] [email or web address] PCP - General Internal Medicine 05/18/24 Artie Meehan MD [address] [place] [address] [place] [address] Internal Medicine 10/26/17 04/23/22 Rina Swenson MD [address] [place] [address] [place] [address] Psychiatry 07/09/17 Laura Mock MD, DMD 1 [facility] [address] [place] [address] [email or web address] Partners Attributed Provider 09/01/21 07/03/23 Laura Mock MD, DMD [address] [address] [email or web address] du Insurance Assigned Provider 05/31/23 03/01/24 Jakob Bob MD [address] [place] [address] [email or web address] Cardiology 08/22/23 Jose Cruz MD [address] [place] [address] Cardiology 08/22/23 Laura Mock MD, DMD [address] [address] [email or web address] Attributed Provider 09/01/21 07/03/23 [facility] [phone]. Consulting Provider 08/22/23 [facility] Connect 12/24/23 03/11/24 Cyril Morales [address] [place] [address] Nurse Practitioner 02/27/24 documented as of this encounter Additional Source Comments The information contained in this document represents components of the legal health record. It is not the complete legal health record.[facility]
--- OUTSIDE RECORDS SUMMARY | 2024-10-22 10:56 | XMS_ITS | Encounter Summary ---
Author Organization [facility] Address [facility] [address] [place] [address] Phone Care Team Providers Care Hedge Fund Trader Name Role Phone Artie Meehan MD Primary [...] Team (Late st Contact Info) Description 12/16/2019 Procedure Pass [facility] [address] [place] [address] Social History Tobacco Use Types Packs/Day Years [...] Upcoming Encounters Date Type Department Care Team ([facility] Contact Info) Description 05/24/2024 Procedure Pass [facility] Radiology [address] [place] [address] 11/24/2024 1:15 PM EDT Appointment [facility] Radiology [address] [place] [address] Jim Zacarias MD [phone] [place] [address] [email or web address] 11/24/2024 2:15 PM EDT Office Visit [facility] Thoracic Surgery 15 [facility] 204 [place] [address] Jim Zacarias MD [phone] [place] [address] [email or web address] 01/31/2025 1:00 PM EST Office Visit [facility] Cardiovascular Medicine 32 [facility], 5th Floor, [address] [place] [address] Karena Betancur MD 55 [facility] 5B [place] [address] [email or web address] Scheduled Procedures Name Priority Associated Diagnoses Date/Ti me COLONOSCOPY Abnormal colonoscopy documented as of this encounter Visit Diagnoses Not on filedocumented in this encounter Additional Health Concerns Infection Onset Date Last Indicated Resolved Time CoV-Presumed 03/23/2022 03/23/2022 04/13/2022 1:23 AM EST CoV-Risk 11/12/2023 11/12/2023 11/12/2023 5:12 PM EDT COVID-19 11/12/2023 11/12/2023 12/03/2023 1:21 AM EDT documented as of this encounter Care Teams Hedge Fund Trader Relationship Specialty Start Date End Date Artie Meehan MD [address] [place] [address] Dr Dior [address] [place] [address] PCP - General Internal Medicine 10/26/17 06/03/21 Laura Mock MD, DMD [address] [address] [email or web address] PCP - General Internal Medicine 06/04/21 11/11/23 Pcp, Unknown PCP - General 11/12/23 11/16/23 Laura Mock MD, DMD [address] [address] [email or web address] PCP - General Internal Medicine 11/17/23 12/28/23 Pcp, Unknown PCP - General 02/28/24 03/04/24 [place] [address] [address] PCP - General 03/05/24 05/17/24 Laura Mock MD, DMD [address] [address] [email or web address] PCP - General Internal Medicine 05/18/24 Artie Meehan MD [address] [place] [address] [place] [address] Internal Medicine 10/26/17 04/23/22 Rina Swenson MD [address] [place] [address] [place] [address] Psychiatry 07/09/17 Laura Mock MD, DMD [address] [address] [email or web address] Attributed Provider 09/01/21 07/03/23 Laura Mock MD, DMD [address] [address] [email or web address] Insurance Assigned Provider 05/31/23 03/01/24 Jakob Bob MD [address] [place] [address] [email or web address] Cardiology 08/22/23 Jose Cruz MD [address] [place] [address], [address] [place] [address] [email or web address] Cardiology 08/22/23 Laura Mock MD, DMD [address] [address] [email or web address] Attributed Provider 09/01/21 07/03/23 [facility] [phone]. Consulting Provider 08/22/23 [facility] Connect 12/24/23 03/11/24 Cyril Morales [facility] [place] [address] Nurse Practitioner 02/27/24 documented as of this encounter Additional Source Comments The information contained in this document represents components of the legal health record. It is not the complete legal health record.[facility]
--- OUTSIDE RECORDS SUMMARY | 2024-10-22 10:56 | XMS_ITS | Encounter Summary ---
Author Organization [facility] Address [facility] [employer] [address] [address] Phone Care Team Providers Care Manager Billing Name Role Phone Artie Meehan MD Unavailable [...] Care Team (Late st Contact Info) Description 09/13/2021 Anti-coag visit [facility] Anticoagulation Clinic [address] [place] [address] Abbie Prieto, PharmD [address] [facility] [address] [place] [address] [email or web address] Social History Tobacco Use Types Packs/Day [...] Upcoming Encounters Date Type Department Care Team ([facility] st Contact Info) Description 05/24/2024 Procedure Pass [facility] Radiology [address] [place] [address] 11/24/2024 1:15 PM EDT Appointment [facility] Radiology 75 [place] [address] Jim Zacarias MD [id number] [place] [address] [email or web address] 11/24/2024 2:15 PM EDT Office Visit [facility] Thoracic Surgery 15 [facility] 204 [place] [address] Jim Zacarias MD [address] [address] [email or web address] 01/31/2025 1:00 PM EST Office Visit [facility] Cardiovascular Medicine 32 [facility], 5th Floor, [address] [place] [address] Karena Betancur MD 55 [facility] 5[address] [place] [address] [email or web address] Scheduled Procedures Name Priority Associated Diagnoses Date/Ti me COLONOSCOPY Abnormal colonoscopy documented as of this encounter Visit Diagnoses Not on filedocumented in this encounter Additional Health Concerns Infection Onset Date Last Indicated Resolved Time CoV-Presumed 03/23/2022 03/23/2022 04/13/2022 1:23 AM EST CoV-Risk 11/12/2023 11/12/2023 11/12/2023 5:12 PM EDT COVID-19 11/12/2023 11/12/2023 12/03/2023 1:21 AM EDT Assessment Noted Time PHQ-2 Depression Total Score: 2 08/03/19 2:01 PM EDT documented as of this encounter Care Teams Manager Billing Relationship Specialty Start Date End Date Laura Mock MD, DMD [address] [address] [email or web address] PCP - General Internal Medicine 06/04/21 11/11/23 Pcp, Unknown PCP - General 11/12/23 11/16/23 Laura Mock MD, DMD [address] [address] [email or web address] PCP - General Internal Medicine 11/17/23 12/28/23 Pcp, Unknown PCP - General 02/28/24 03/04/24 Nicole Newell MD [address] [place] [address] PCP - General 03/05/24 05/17/24 Laura Mock MD, DMD [address] [address] [email or web address] du PCP - General Internal Medicine 05/18/24 Artie Meehan MD [address] [place] [address] [facility] [place] [address] Internal Medicine 10/26/17 04/23/22 Rina Swenson MD [address] [place] [address] [place] [address] Psychiatry 07/09/17 Laura Mock MD, DMD [address] [address] [email or web address] [employer] Attributed Provider 09/01/21 07/03/23 Laura Mock MD, DMD [address] [address] [email or web address] du Insurance Assigned Provider 05/31/23 03/01/24 Jakob Bob MD [address] [place] [address] [email or web address] Cardiology 08/22/23 Jose Cruz MD [address] [place] [address] [place] [address] Cardiology 08/22/23 Laura Mock MD, DMD [address] [address] [email or web address] Attributed Provider 09/01/21 07/03/23 [facility] [phone]. Consulting Provider 08/22/23 [facility] Connect 12/24/23 03/11/24 Cyril Morales [address] [place] [address] Nurse Practitioner 02/27/24 documented as of this encounter Additional Source Comments The information contained in this document represents components of the legal health record. It is not the complete legal health record.[facility]
--- OUTSIDE RECORDS SUMMARY | 2024-10-22 10:56 | XMS_ITS | Encounter Summary ---
Author Organization [facility] Address [facility] [employer] [address] [address] Phone Care Team Providers Care Laminating Machine Tender Name Role Phone Rina Swenson MD Unavailable [phone] Laura Mock MD, DMD Primary Car e [...] Care Team (Late st Contact Info) Description 02/25/2023 Anti-coag visit [facility]PARTMENT Unknown, Unknown, Social History Tobacco Use Types Packs/Day Years Used Date Smoking Tobacco: Never Smokeless Tobacco: Never Alcohol Use Standard Drinks/Week Comments No 0 (1 standard drink = 0.6 oz pur e alcohol) Education Answer Date Recorded Are you interested in more education? Not on liam e 06/22/2022 Are you concerned about learning? Not on file 06/22/2022 No 06/22/2022 No 06/22/2022 Digital Access Answer Date Recorded No 07/16/2022 No 07/16/2022 Reliable internet access at home? Not on file 07/16/2022 Device with a working camera? Not on file Comments No Sex and Gender Information Value [...] Procedure Pass [facility] Radiology 75 [place] [address] 11/24/2024 1:15 PM EDT Appointment [facility] Radiology 75 [place] [address] iJm Zacarias MD [address] [address] [email or web address] 11/24/2024 2:15 PM EDT Office Visit [facility] Thoracic Surgery 15 [facility] 204 [place] [address] Jim Zacarias MD [address] [address] [email or web address] 01/31/2025 1:00 PM EST Office Visit [facility] Cardiovascular Medicine 32 [facility], 5th Floor, [address] [place] [address] Karena Betancur MD 55 [facility] [address] [place] [address] [email or web address] Scheduled Procedures Name Priority Associated Diagnoses Date/Ti me COLONOSCOPY Abnormal colonoscopy documented as of this encounter Visit Diagnoses Not on filedocumented in this encounter Additional Health Concerns Infection Onset Date Last Indicated Resolved Time CoV-Risk 11/12/2023 11/12/2023 11/12/2023 5:12 PM EDT COVID-19 11/12/2023 11/12/2023 12/03/2023 1:21 AM EDT Assessment Noted Time PHQ-9 Depression Total Score: 17 023 11:28 AM EST PHQ-2 Depression Total Score: 2 10/10/19 23 11:28 AM EDT documented as of this encounter Care Teams Laminating Machine Tender Relationship Specialty Start Date End Date Laura Mock MD, DMD [address] [address] [email or web address] PCP - General Internal Medicine 06/04/21 11/11/23 Pcp, Unknown PCP - General 11/12/23 11/16/23 Laura Mock MD, DMD [address] [address] [email or web address] PCP - General Internal Medicine 11/17/23 12/28/23 Pcp, Unknown PCP - General 02/28/24 03/04/24 Nicole Newell MD [address] [place] [address] PCP - General 03/05/24 05/17/24 Laura Mock MD, DMD [address] [address] [email or web address] PCP - General Internal Medicine 05/18/24 Rina Swenson MD Psychiatry 07/09/17 Laura Mock MD, DMD [address] [address] [email or web address] [employer] Attributed Provider 09/01/21 07/03/23 Laura Mock MD, DMD [address] [address] [email or web address] Insurance Assigned Provider 05/31/23 03/01/24 Jakob Bob MD [address] [place] [address] [email or web address] Cardiology 08/22/23 Jose Cruz MD [address] [place] [address], [address] [address] [email or web address] Cardiology 08/22/23 Laura Mock MD, DMD [address] [address] [email or web address] [employer] Attributed Provider 09/01/21 07/03/23 [facility] [phone]. Consulting Provider 08/22/23 [facility] Connect 12/24/23 03/11/24 Cyril Morales [address] [place] [address] Nurse Practitioner 02/27/24 documented as of this encounter Additional Source Comments The information contained in this document represents components of the legal health record. It is not the complete legal health record.[facility]
--- OUTSIDE RECORDS SUMMARY | 2024-10-22 10:56 | XMS_ITS | Encounter Summary ---
Author Organization [facility] Address [facility] [employer] [address] [address] Phone Care Team Providers Care Mobile Homes Repairer Name Role Phone Artie Meehan MD Unavailable [...] Care Team (Late st Contact Info) Description 12/03/2021 Anti-coag visit VIRTUAL DEPARTMENT Unknown, Unknown, MD Social History Tobacco Use Types Packs/Day Years [...] st Contact Info) Description 05/24/2024 Procedure Pass [facility] Radiology [address] [place] [address] 11/24/2024 1:15 PM EDT Appointment [facility] Radiology [address] [place] [address] Jim Zacarias MD [address] [address] [email or web address] 11/24/2024 2:15 PM EDT Office Visit [facility] Thoracic Surgery 15 [facility] 204 [place] [address] Jim Zacarias MD [address] [address] [email or web address] 01/31/2025 1:00 PM EST Office Visit [facility] Cardiovascular Medicine 32 [facility], 5th Floor, [address] [place] [address] Karena Betancur MD 55 [facility] 5B [place] [address] [email or web address] Scheduled Procedures Name Priority Associated Diagnoses Date/Ti [...] documented as of this encounter Care Teams Mobile Homes Repairer Relationship Specialty Start Date End Date Laura Mock MD, DMD 1 [facility] 225 [place] [address] [email or web address] PCP - General Internal Medicine 06/04/21 11/11/23 Pcp, Unknown PCP - General 11/12/23 11/16/23 Laura Mock MD, DMD [address] [address] [email or web address] PCP - General Internal Medicine 11/17/23 12/28/23 Pcp, Unknown PCP - General 02/28/24 03/04/24 [place] [address] [address] PCP - General 03/05/24 05/17/24 Laura Mock MD, DMD [address] [address] [email or web address] PCP - General Internal Medicine 05/18/24 Artie Meehan MD [address] [place] [address] [place] [address] Internal Medicine 10/26/17 04/23/22 Rina Swenson MD [address] [place] [address] [place] [address] Psychiatry 07/09/17 Laura Mock MD, DMD [address] [address] [email or web address] [employer] Attributed Provider 09/01/21 07/03/23 Laura Mock MD, DMD [address] [address] [email or web address] Insurance Assigned Provider 05/31/23 03/01/24 Jakob Bob MD [address] [place] [address] [email or web address] Cardiology 08/22/23 Jsoe Cruz MD [address] [place] [address] [email or web address] Cardiology 08/22/23 Laura Mock MD, DMD [address] [address] [email or web address] [employer] Attributed Provider 09/01/21 07/03/23 [facility] [phone]. Consulting Provider 08/22/23 [facility] Connect 12/24/23 03/11/24 Cyril Morales [address] [place] [address] Nurse Practitioner 02/27/24 documented as of this encounter Additional Source Comments The information contained in this document represents components of the legal health record. It is not the complete legal health record.[facility]
--- OUTSIDE RECORDS SUMMARY | 2024-10-22 10:56 | XMS_ITS | Encounter Summary ---
Author Organization [facility] Address [facility] [employer] [facility] [address] [place] [address] Phone Care Team Providers Care Night Time Nanny Name Role Phone Rina Swenson MD Unavailable Laura Mock MD, [...] Care Team (Late st Contact Info) Description 12/25/2022 Procedure Pass [address] [address] Social History Tobacco Use Types Packs/Day Years [...] st Contact Info) Description 05/24/2024 Procedure Pass [facility] Radiology 75 [place] [address] 11/24/2024 1:15 PM EDT Appointment [facility] Radiology [address] [place] [address] Jim Zacarias MD [address] [address] [email or web address] 11/24/2024 2:15 PM EDT Office Visit [facility] Thoracic Surgery 15 [facility] 204 [place] [address] Jim Zacarias MD [address] [address] [email or web address] 01/31/2025 1:00 PM EST Office Visit [facility] Cardiovascular Medicine 32 [facility], 5th Floor, [address] [place] [address] Karena Betancur MD 55 [facility] [address] [address] [email or web address] Scheduled Procedures Name Priority Associated [...] documented as of this encounter Care Teams Night Time Nanny Relationship Specialty Start Date End Date Laura Mock MD, DMD [address] [address] [email or web address] PCP - General Internal Medicine 06/04/21 11/11/23 Pcp, Unknown PCP - General 11/12/23 11/16/23 Laura Mock MD, DMD [address] [address] [email or web address] du PCP - General Internal Medicine 11/17/23 12/28/23 Pcp, Unknown PCP - General 02/28/24 03/04/24 [place] [address] [address] PCP - General 03/05/24 05/17/24 Laura Mock MD, DMD [address] [address] [email or web address] du PCP - General Internal Medicine 05/18/24 Rina Swenson MD Psychiatry 07/09/17 Laura Mock MD, DMD [address] [address] [email or web address] [employer] Attributed Provider 09/01/21 07/03/23 Laura Mock MD, DMD [address] [address] [email or web address] Insurance Assigned Provider 05/31/23 03/01/24 Jakob Bob MD [address] [place] [address] [email or web address] Cardiology 08/22/23 Jose Cruz MD [address] [place] [address] [email or web address] Cardiology 08/22/23 Laura Mock MD, DMD [address] [address] [email or web address] Attributed Provider 09/01/21 07/03/23 [facility] [phone]. Consulting Provider 08/22/23 [facility] Connect 12/24/23 03/11/24 Cyril Morales [address] [place] [address] Nurse Practitioner 02/27/24 documented as of this encounter Additional Source Comments The information contained in this document represents components of the legal health record. It is not the complete legal health record.[facility]
--- OUTSIDE RECORDS SUMMARY | 2024-10-22 10:56 | XMS_ITS | Encounter Summary ---
Author Organization [facility] Address [address] [place] [address] Phone Care Team Providers Care Hot Saw Helper Name Role Phone Artie Meehan MD Unavailable Rina Swenson MD Unavailable Laura Mock MD, DMD Primary Car e Provider Laura Mock MD, DMD Unavailable Laura Mock MD, DMD Unavailable Jakob Bob MD Unavailable Jose Cruz MD Unavailable [phone] Laura Mock MD, DMD Unavailable Pcp, Unknown Primary Care Provider UnavailLaura Ascencio MD, DMD Primary Car e Provider Pcp, Unknown Primary Care Provider UnavailNicole Arguello MD Primary Care Provide r Laura Mock MD, DMD Primary Car e Provider Encounter Details Date Type Department Care Team (Late st Contact Info) Description 01/16/2022 Anti-coag visit VIRTUAL DEPARTMENT Marek Elias, PharmD [address] [place] [address] [email or web address] Social History Tobacco Use Types Packs/Day Years [...] st Contact Info) Description 05/24/2024 Procedure Pass [facility] Radiology [address] [place] [address] 11/24/2024 1:15 PM EDT Appointment [facility] Radiology [address] [place] [address] Jim Zacarias MD [address] [address] [email or web address] 11/24/2024 2:15 PM EDT Office Visit [facility] Thoracic Surgery 15 [facility] 204 [place] [address] Jim Zacarias MD [address] [address] [email or web address] 01/31/2025 1:00 PM EST Office Visit [facility] Cardiovascular Medicine 32 [facility], 5th Floor, [address] [place] [address] Karena Betancur MD 55 [facility] 5B [place] [address] [email or web address] Scheduled Procedures Name Priority Associated Diagnoses [...] documented as of this encounter Care Teams Hot Saw Helper Relationship Specialty Start Date End Date Laura Mock MD, DMD [address] [address] [email or web address] PCP - General Internal Medicine 06/04/21 11/11/23 Pcp, Unknown PCP - General 11/12/23 11/16/23 Laura Mock MD, DMD [address] [address] [email or web address] PCP - General Internal Medicine 11/17/23 12/28/23 Pcp, Unknown PCP - General 02/28/24 03/04/24 [place] [address] [address] PCP - General 03/05/24 05/17/24 Laura Mock MD, DMD [address] [address] [email or web address] PCP - General Internal Medicine 05/18/24 Artie Meehan MD [address] [place] [address] [place] [address] Internal Medicine 10/26/17 04/23/22 Rina Swenson MD [address] [place] [address] Dr Dior Elisabeth PRAT[place]HAMAR[place]UYOLIE [address] Psychiatry 07/09/17 Laura Mock MD, DMD [address] [address] [email or web address] du Partners Attributed Provider 09/01/21 07/03/23 Laura Mock MD, DMD [address] [address] [email or web address] du Insurance Assigned Provider 05/31/23 03/01/24 Jakob Bob MD [address] [place] [address] [email or web address] Cardiology 08/22/23 Jose Cruz MD [address] [place] [address] Cardiology 08/22/23 Laura Mock MD, DMD [address] [address] [email or web address] [employer] Attributed Provider 09/01/21 07/03/23 [facility] [phone]. Consulting Provider 08/22/23 [facility] Connect 12/24/23 03/11/24 Cyril Morales [address] [place] [address] Nurse Practitioner 02/27/24 documented as of this encounter Additional Source Comments The information contained in this document represents components of the legal health record. It is not the complete legal health record.[facility]
--- OUTSIDE RECORDS SUMMARY | 2024-10-22 10:56 | XMS_ITS | Encounter Summary ---
Author Organization [facility] Address [facility] [employer] [address] [address] Phone Care Team Providers Care Environmental Field Team Member Name Role Phone Artie Meehan MD Unavailable Rina Swenson MD Unavailable Laura Mock MD, DMD Primary Car e Provider Laura Mock MD, DMD Unavailable Laura Mock MD, DMD Unavailable Jakob Bob MD Unavailable Jose Cruz MD Unavailable [phone] Laura Mock MD, DMD Unavailable Pcp, Unknown Primary Care Provider UnavailLaura Ascencio MD, DMD Primary Car e Provider Pcp, Unknown Primary Care Provider UnavailNicole Arguello MD Primary Care Provide r Laura Mock MD, DMD Primary Car e Provider Encounter Details Date Type Department Care Team (Late st Contact Info) Description 10/19/2021 Anti-coag visit [facility] Anticoagulation Clinic [address] [place] [address] Melvin Stewart, [facility] [address] [place] [address] [email or web address] Social History Tobacco Use Types Packs/Day Years [...] st Contact Info) Description 05/24/2024 Procedure Pass [facility]iology [address] [place] [address] 11/24/2024 1:15 PM EDT Appointment [facility] [address] [place] [address] Jim Zacarias MD [address] [address] [email or web address] 11/24/2024 2:15 PM EDT Office Visit [facility] Thoracic Surgery 15 [facility] 204 [place] [address] Jim Zacarias MD [address] [address] [email or web address] 01/31/2025 1:00 PM EST Office Visit [facility] Cardiovascular Medicine 32 [facility], 5th Floor, [address] [place] [address] Karena Betancur MD 55 [facility] 5B [place] [address] [email or web address] Scheduled Procedures Name Priority Associated Diagnoses [...] documented as of this encounter Care Teams Environmental Field Team Member Relationship Specialty Start Date End Date Laura Mock MD, DMD [address] [address] [email or web address] PCP - General Internal Medicine 06/04/21 11/11/23 Pcp, Unknown PCP - General 11/12/23 11/16/23 Laura Mock MD, DMD [address] [address] [email or web address] PCP - General Internal Medicine 11/17/23 12/28/23 Pcp, Unknown PCP - General 02/28/24 03/04/24 [place] [address] [address] PCP - General 03/05/24 05/17/24 Laura Mock MD, DMD [address] [address] [email or web address] du PCP - General Internal Medicine 05/18/24 Artie Meehan MD [address] [place] [address] Dr Dior [facility] [place] [address] Internal Medicine 10/26/17 04/23/22 Rina Swenson MD [address] [place] [address] Dr Dior [address] [place] [address] Psychiatry 07/09/17 Laura Mock MD, DMD [address] [address] [email or web address] du [employer] Attributed Provider 09/01/21 07/03/23 Laura Mock MD, DMD [address] [address] [email or web address] du Insurance Assigned Provider 05/31/23 03/01/24 Jakob Bob MD [address] [place] [address] [email or web address] Cardiology 08/22/23 Jose Cruz MD [address] [place] [address] Cardiology 08/22/23 Laura Mock MD, DMD [address] [address] [email or web address] du Partners Attributed Provider 09/01/21 07/03/23 [facility] [phone]. Consulting Provider 08/22/23 [facility] Connect 12/24/23 03/11/24 Cyril Morales [address] [place] [address] Nurse Practitioner 02/27/24 documented as of this encounter Additional Source Comments The information contained in this document represents components of the legal health record. It is not the complete legal health record.[facility]
--- OUTSIDE RECORDS SUMMARY | 2024-10-22 10:56 | XMS_ITS | Encounter Summary ---
Author Organization [facility] Address [facility] [employer] [address] [address] Phone Care Team Providers Care Brick Grader Name Role Phone Artie Meehan MD Unavailable Rina Swenson MD Unavailable Laura Mock MD, DMD Primary Car e Provider Laura Mock MD, DMD Unavailable Laura Mock MD, DMD Unavailable Jakob Bob MD Unavailable Jose Cruz MD Unavailable [phone] Laura Mock MD, DMD Unavailable Pcp, Unknown Primary Care Provider UnavailLaura Ascencio MD, DMD Primary Car e Provider Pcp, Unknown Primary Care Provider UnavailNicole Arguello MD Primary Care Provide r Laura Mock MD, DMD Primary Car e Provider Encounter Details Date Type Department Care Team (Late st Contact Info) Description 10/09/2021 Anti-coag visit VIRTUAL DEPARTMENT Unknown, Unknown, MD [...] st Contact Info) Description 05/24/2024 Procedure Pass [facility] Radiology [address] [place] [address] 11/24/2024 1:15 PM EDT Appointment [facility] Radiology [address] [place] [address] Jim Zacarias MD [address] [address] [email or web address] 11/24/2024 2:15 PM EDT Office Visit [facility] Thoracic Surgery 15 [facility] 204 [place] [address] Jim Zacarias MD [address] [address] [email or web address] 01/31/2025 1:00 PM EST Office Visit [facility] Medicine 32 [facility], 5th Floor, [address] [place] [address] Karena Betancur MD 55 [facility] [address] [place] [address] [email or web address] Scheduled Procedures Name Priority Associated Diagnoses Date/Ti [...] Time PHQ-2 Depression Total Score: 2 08/03/19 22 2:01 PM EDT documented as of this encounter Care Teams Brick Grader Relationship Specialty Start Date End Date Laura Mock MD, DMD 1 [facility] [address] [place] [address] [email or web address] PCP - General Internal Medicine 06/04/21 11/11/23 Pcp, Unknown PCP - General 11/12/23 11/16/23 Laura Mock MD, DMD [address] [address] [email or web address] PCP - General Internal Medicine 11/17/23 12/28/23 Pcp, Unknown PCP - General 02/28/24 03/04/24 [place] [address] [place] [address] PCP - General 03/05/24 05/17/24 Laura Mock MD, DMD [address] [address] [email or web address] PCP - General Internal Medicine 05/18/24 Artie Meehan MD [address] [place] [address] [place] [address] Internal Medicine 10/26/17 04/23/22 Rina Swenson MD [address] [place] [address] [place] [address] Psychiatry 07/09/17 Laura Mock MD, DMD [address] [address] [email or web address] [employer] Attributed Provider 09/01/21 07/03/23 Laura Mock MD, DMD [address] [address] [email or web address] Insurance Assigned Provider 05/31/23 03/01/24 Jakob Bob MD [address] [place] [address] [email or web address] Cardiology 08/22/23 Jose Cruz MD [address] [place] [address], [address] [place] [address] Cardiology 08/22/23 Laura Mock MD, DMD [address] [address] [email or web address] Attributed Provider 09/01/21 07/03/23 [facility] [phone]. Consulting Provider 08/22/23 [facility] Connect 12/24/23 03/11/24 Cyril Morales [address] [place] [address] Nurse Practitioner 02/27/24 documented as of this encounter Additional Source Comments The information contained in this document represents components of the legal health record. It is not the complete legal health record.[facility]
--- OUTSIDE RECORDS SUMMARY | 2024-10-22 10:56 | XMS_ITS | Encounter Summary ---
Author Organization [facility] Address Pending sale to [facility] [address] [place] [address] Phone Care Team Providers Care Gastroenterologist Name Role Phone Artie Meehan MD Primary [...] Care Team (Late st Contact Info) Description 04/06/2019 Ancillary Orders Virtual Department 30 [place] [address] Artie Meehan MD [address] [place] [address] [place] [address] Menopausal state Social History Tobacco Use Types Packs/Day Years [...] Upcoming Encounters Date Type Department Care Team ([facility] Contact Info) Description 05/24/2024 Procedure Pass [facility] Radiology [address] [place] [address] 11/24/2024 1:15 PM EDT Appointment [facility] Radiology [address] [place] [address] Jim Zacarias MD [address] [address] [email or web address] 11/24/2024 2:15 PM EDT Office Visit [facility] Thoracic Surgery 15 [facility] 204 [place] [address] Jim Zacarias MD [address] [address] [email or web address] 01/31/2025 1:00 PM EST Office [place] [facility] [place] [place] 32 [facility], 5th Floor, [address] [place] [address] Karena Betancur MD 55 [facility] [address] [place] [address] [email or web address] Scheduled Procedures Name Priority Associated Diagnoses Date/Ti me COLONOSCOPY Abnormal colonoscopy documented as of this encounter Visit Diagnoses Diagnosis Menopausal state Symptomatic menopausal or female climacteric states documented in this encounter Additional Health Concerns Infection Onset Date Last Indicated Resolved Time CoV-Presumed 03/23/2022 03/23/2022 04/13/2022 1:23 AM EST CoV-Risk 11/12/2023 11/12/2023 11/12/2023 5:12 PM EDT COVID-19 11/12/2023 11/12/2023 12/03/2023 1:21 AM EDT documented as of this encounter Care Teams Gastroenterologist Relationship Specialty Start Date End Date Artie Meehan MD [address] [place] [address] Dr Dior [facility] [place] [address] PCP - General Internal Medicine 10/26/17 06/03/21 Laura Mock MD, DMD [address] [address] [email or web address] PCP - General Internal Medicine 06/04/21 11/11/23 Pcp, Unknown PCP - General 11/12/23 11/16/23 Laura Mock MD, DMD [address] [address] [email or web address] PCP - General Internal Medicine 11/17/23 12/28/23 Pcp, Unknown PCP - General 02/28/24 03/04/24 Nicole [place] [address] [place] [address] PCP - General 03/05/24 05/17/24 Laura Mock MD, DMD [address] [address] [email or web address] PCP - General Internal Medicine 05/18/24 Artie Meehan MD [address] [place] [address] [place] [address] Internal Medicine 10/26/17 04/23/22 Rina Swensno MD [address] [place] [address] [place] [address] Psychiatry 07/09/17 Laura Mock MD, DMD [address] [address] [email or web address] [employer] Attributed Provider 09/01/21 07/03/23 Laura Mock MD, DMD [address] [address] [email or web address] du Insurance Assigned Provider 05/31/23 03/01/24 Jakob Bob MD [address] [place] [address] [email or web address] Cardiology 08/22/23 Jose Cruz MD [address] [place] [address] [address] [place] [address] [email or web address] Cardiology 08/22/23 Laura Mock MD, DMD [address] [address] [email or web address] [employer] Attributed Provider 09/01/21 07/03/23 [facility] [phone]. Consulting Provider 08/22/23 CAROLANN GREWAL Connect 12/24/23 03/11/24 Cyril Morales [address] [place] [address] Nurse Practitioner 02/27/24 documented as of this encounter Additional Source Comments The information contained in this document represents components of the legal health record. It is not the complete legal health record.[facility]
--- OUTSIDE RECORDS SUMMARY | 2024-10-22 10:56 | XMS_ITS | Encounter Summary ---
Author Organization [facility] Address [facility] [employer] [address] [address] Phone Care Team Providers Care Bilingual Instructor Name Role Phone Artie Meehan MD Unavailable [...] Care Team (Late st Contact Info) Description 04/05/2022 Anti-coag visit [facility] Anticoagulation Clinic [address] [place] [address] Melvin Stewart, [facility] [address] [place] [address] [email or web address] Social History Tobacco Use Types Packs/Day [...] st Contact Info) Description 05/24/2024 Procedure Pass [facility] Radiology [address] [place] [address] 11/24/2024 1:15 PM EDT Appointment [facility] Radiology [address] [place] [address] Jim Zacarias MD [address] [address] [email or web address] 11/24/2024 2:15 PM EDT Office Visit [facility] Thoracic Surgery 15 [facility] 204 [place] [address] Jim Zacarias MD [address] [address] [email or web address] 01/31/2025 1:00 PM EST Office Visit [facility] Cardi[facility] Medicine 32 [facility], 5th Floor, [address] [place] [address] Karena Betancur MD 55 [facility] 5[address] [place] [address] [email or web address] Scheduled Procedures Name Priority Associated Diagnoses [...] documented as of this encounter Care Teams Bilingual Instructor Relationship Specialty Start Date End Date Laura Mock MD, DMD [address] [address] [email or web address] du PCP - General Internal Medicine 06/04/21 11/11/23 Pcp, Unknown PCP - General 11/12/23 11/16/23 Laura Mock MD, DMD [address] [address] [email or web address] du PCP - General Internal Medicine 11/17/23 12/28/23 Pcp, Unknown PCP - General 02/28/24 03/04/24 [place] [address] [address] PCP - General 03/05/24 05/17/24 Laura Mock MD, DMD [address] [address] [email or web address] du PCP - General Internal Medicine 05/18/24 Artie Meehan MD [address] [place] [address] [place] [address] Internal Medicine 10/26/17 04/23/22 Rina Swenson MD [address] [place] [address] [place] [address] Psychiatry 07/09/17 Laura Mock MD, DMD [address] [address] [email or web address] [employer] Attributed Provider 09/01/21 07/03/23 Laura Mock MD, DMD [address] [address] [email or web address] du Insurance Assigned Provider 05/31/23 03/01/24 Jakob Bob MD [address] [place] [address] [email or web address] Cardiology 08/22/23 Jose Cruz MD [address] [place] [address] Cardiology 08/22/23 Laura Mock MD, DMD [address] [address] [email or web address] [employer] Attributed Provider 09/01/21 07/03/23 [facility] [phone]. Consulting Provider 08/22/23 [facility] Connect 12/24/23 03/11/24 Cyril Morales [facility]5 [place] [address] Nurse Practitioner 02/27/24 documented as of this encounter Additional Source Comments The information contained in this document represents components of the legal health record. It is not the complete legal health record.[facility]
--- OUTSIDE RECORDS SUMMARY | 2024-10-22 10:56 | XMS_ITS | Encounter Summary ---
Author Organization [facility] Address [facility] [employer] [address] [address] Phone Care Team Providers Care Dispatcher Maintenance Service Name Role Phone Rina Swenson MD Unavailable Laura Mock MD, DMD Primary Car e Provider Laura Mock MD, DMD Unavailable Laura Mock MD, DMD Unavailable Jakob Bob MD Unavailable Jose Cruz MD Unavailable [phone] Laura Mock MD, DMD Unavailable Pcp, Unknown Primary Care Provider UnavailLaura Ascencio MD, DMD Primary Car e Provider Pcp, Unknown Primary Care Provider UnavailNicole Arguello MD Primary Care Provide r Laura Mock MD, DMD Primary Car e Provider Encounter Details Date Type Department Care Team (Late st Contact Info) Description 08/25/2022 Anti-coag visit VIRTUAL DEPARTMENT Unknown, Unknown, Social [...] st Contact Info) Description 05/24/2024 Procedure Pass [facility] 75 [place] [address] 11/24/2024 1:15 PM EDT Appointment [facility] 75 [place] [address] Jim Zacarias MD [address] [address] [email or web address] 11/24/2024 2:15 PM EDT Office Visit [facility] Thoracic Surgery 15 [facility] 204 [place] [address] Jim Zacarias MD [address] [address] [email or web address] 01/31/2025 1:00 PM EST Office Visit [facility] Cardiovascular Medicine 32 [facility], 5th Floor, [address] [place] [address] Karena Betancur MD 55 [facility] 5B [place] [address] [email or web address] Scheduled Procedures Name Priority Associated Diagnoses [...] AM EST PHQ-2 Depression Total Score: 2 04/25/19 23 3:16 PM EST documented as of this encounter Care Teams Dispatcher Maintenance Service Relationship Specialty Start Date End Date Laura Mock MD, DMD [address] [address] [email or web address] PCP - General Internal Medicine 06/04/21 11/11/23 Pcp, Unknown PCP - General 11/12/23 11/16/23 Laura Mock MD, DMD [address] [address] [email or web address] du PCP - General Internal Medicine 11/17/23 12/28/23 Pcp, Unknown PCP - General 02/28/24 03/04/24 Nicole Newell MD [address] [place] [address] PCP - General 03/05/24 05/17/24 Laura Mock MD, DMD [address] [address] [email or web address] PCP - General Internal Medicine 05/18/24 Rina Swenson MD Psychiatry 07/09/17 Laura Mock MD, DMD [address] [address] [email or web address] Attributed Provider 09/01/21 07/03/23 Laura Mock MD, DMD [address] [address] [email or web address] Insurance Assigned Provider 05/31/23 03/01/24 Jakob Bob MD [address] [place] [address] [email or web address] Cardiology 08/22/23 Jose Cruz MD [address] [place] [address] [email or web address] Cardiology 08/22/23 Laura Mock MD, DMD [address] [address] [email or web address] Attributed Provider 09/01/21 07/03/23 [facility] [phone]. Consulting Provider 08/22/23 [facility] Connect 12/24/23 03/11/24 Cyril Morales [address] [place] [address] Nurse Practitioner 02/27/24 documented as of this encounter Additional Source Comments The information contained in this document represents components of the legal health record. It is not the complete legal health record.[facility]
--- OUTSIDE RECORDS SUMMARY | 2024-10-22 10:56 | XMS_ITS | Encounter Summary ---
Author Organization [facility] Address [facility] [employer] [address] [address] Phone Care Team Providers Care Gold Leaf Layer Name Role Phone Artie Meehan MD Unavailable [...] Care Team (Late st Contact Info) Description 03/23/2022 Anti-coag visit VIRTUAL DEPARTMENT Unknown, Unknown, MD [...] st Contact Info) Description 05/24/2024 Procedure Pass [facility] Radiology [address] [place] [address] 11/24/2024 1:15 PM EDT Appointment [facility] Radiology [address] [place] [address] Jim Zacarias MD [address] [address] [email or web address] 11/24/2024 2:15 PM EDT Office Visit [facility] Thoracic Surgery 15 [facility] 204 [place] [address] Jim Zacarias MD [address] [address] [email or web address] 01/31/2025 1:00 PM EST Office Visit [facility] [place] Cardiovascular Medicine 32 [facility], 5th Floor, [address] [place] [address] Karena Betancur MD 55 [facility] 5[address] [place] [address] [email or web address] Scheduled Procedures Name Priority [...] documented as of this encounter Care Teams Gold Leaf Layer Relationship Specialty Start Date End Date Laura Mock MD, DMD 1 [facility] 225 [place] [address] [email or web address] du PCP - General Internal Medicine 06/04/21 11/11/23 Pcp, Unknown PCP - General 11/12/23 11/16/23 Laura Mock MD, DMD [address] [address] [email or web address] PCP - General Internal Medicine 11/17/23 12/28/23 Pcp, Unknown PCP - General 02/28/24 03/04/24 [place] [address] [address] PCP - General 03/05/24 05/17/24 Laura Mock MD, DMD [address] [address] [email or web address] du PCP - General Internal Medicine 05/18/24 Artie Meehan MD [address] [place] [address] [place] [address] Internal Medicine 10/26/17 04/23/22 Rina Swenson MD [address] [place] [address] [place] [address] Psychiatry 07/09/17 Laura Mock MD, DMD [address] [address] [email or web address] Attributed Provider 09/01/21 07/03/23 Laura Mock MD, DMD [address] [address] [email or web address] Insurance Assigned Provider 05/31/23 03/01/24 Jakob Bob MD [address] [place] [address] [email or web address] Cardiology 08/22/23 Jose Cruz MD [address] [place] [address] [email or web address] Cardiology 08/22/23 Laura Mock MD, DMD [address] [address] [email or web address] Attributed Provider 09/01/21 07/03/23 [facility] [phone]. Consulting Provider 08/22/23 [facility] Connect 12/24/23 03/11/24 Cyril Morales [address] [place] [address] Nurse Practitioner 02/27/24 documented as of this encounter Additional Source Comments The information contained in this document represents components of the legal health record. It is not the complete legal health record.[facility]
--- OUTSIDE RECORDS SUMMARY | 2024-10-22 10:56 | XMS_ITS | Encounter Summary ---
Author Organization [facility] Address [address] [place] [address] Phone Care Team Providers Care Powder Shoveler Name Role Phone Rina Swenson MD Unavailable Laura Mock MD, DMD Primary Car e Provider Laura Mock MD, DMD Unavailable Laura Mock MD, DMD Unavailable Jakob Bob MD Unavailable Jose Cruz MD Unavailable [phone] Laura Mock MD, DMD Unavailable Pcp, Unknown Primary Care Provider UnavailLaura Ascencio MD, DMD Primary Car e Provider Pcp, Unknown Primary Care Provider UnavailNicole Arguello MD Primary Care Provide r Laura Mock MD, DMD Primary Car e Provider Encounter Details Date Type Department Care Team (Late st Contact Info) Description 01/21/2023 Anti-coag visit [facility] Anticoagulation Clinic 75 [place] [address] Purvi Lawler, PharmD [address] [place] [address] [email or web address] Social History Tobacco Use Types Packs/Day [...] st Contact Info) Description 05/24/2024 Procedure Pass [facility] Radiology [address] [place] [address] 11/24/2024 1:15 PM EDT Appointment [facility] Radiology [address] [place] [address] Jim Zacarias MD [address] [place] [address] [email or web address] 11/24/2024 2:15 PM EDT Office Visit [facility] Thoracic Surgery [address] [facility] 204 [place] [address] Jim Zacarias MD [address] [place] [address] [email or web address] 01/31/2025 1:00 PM EST Office [place] [facility] [place] [address] [place] [address], 5th Floor, [address] [place] [address] Karena Betancur MD 55 [facility] [address] [place] [address] [email or web address] Scheduled Procedures Name Priority Associated Diagnoses Date/Ti [...] documented as of this encounter Care Teams Powder Shoveler Relationship Specialty Start Date End Date Laura Mock MD, DMD [address] [address] [email or web address] du PCP - General Internal Medicine 06/04/21 11/11/23 Pcp, Unknown PCP - General 11/12/23 11/16/23 Laura Mock MD, DMD [address] [address] [email or web address] du PCP - General Internal Medicine 11/17/23 12/28/23 Pcp, Unknown PCP - General 02/28/24 03/04/24 [place] [address] [address] PCP - General 03/05/24 05/17/24 Laura Mock MD, DMD [address] [address] [email or web address] du PCP - General Internal Medicine 05/18/24 Rina Swenson MD Psychiatry 07/09/17 Laura Mock MD, DMD [address] [address] [email or web address] du Partners Attributed Provider 09/01/21 07/03/23 Laura Mock MD, DMD [address] [address] [email or web address] du Insurance Assigned Provider 05/31/23 03/01/24 Jakob Bob MD [address] [place] [address] [email or web address] Cardiology 08/22/23 Jose Cruz MD [address] [place] [address], [address] [place] [address] Cardiology 08/22/23 Laura Mock MD, DMD [address] [address] [email or web address] du Partners Attributed Provider 09/01/21 07/03/23 [facility] [phone]. Consulting Provider 08/22/23 [facility] Connect 12/24/23 03/11/24 Cyril Morales [address] [place] [address] Nurse Practitioner 02/27/24 documented as of this encounter Additional Source Comments The information contained in this document represents components of the legal health record. It is not the complete legal health record.[facility]
--- OUTSIDE RECORDS SUMMARY | 2024-10-22 10:56 | XMS_ITS | Encounter Summary ---
Author Organization [facility] Address [facility]ly [facility] [address] [place] [address] Phone Care Team Providers Care Buckle Inspector Name Role Phone Artie Meehan MD Primary [...] Care Team (Late st Contact Info) Description 07/06/2020 Procedure Pass [facility] [address] [place] [address] Social History Tobacco Use Types Packs/Day Years [...] Upcoming Encounters Date Type Department Care Team ([facility] Contact Info) Description 05/24/2024 Procedure Pass [facility] Radiology [address] [place] [address] 11/24/2024 1:15 PM EDT Appointment [facility] Radiology [address] [place] [address] Jim Zacarias MD [id number] [place] [address] [email or web address] 11/24/2024 2:15 PM EDT Office Visit [facility] Thoracic Surgery 15 [facility] 204 [place] [address] Jim Zacarias MD [id number] [place] [address] [email or web address] 01/31/2025 1:00 PM EST Office Visit [facility] Cardi[facility] Medicine 32 [facility], 5th Floor, [address] [place] [address] Karena Betancur MD 55 [facility] 5B [place] [address] [email or web address] Scheduled Procedures Name Priority Associated [...] documented as of this encounter Care Teams Buckle Inspector Relationship Specialty Start Date End Date Artie Meehan MD [address] [place] [address] Dr [address] [place] [address] PCP - General Internal Medicine 10/26/17 06/03/21 Laura Mock MD, DMD [address] [address] [email or web address] PCP - General Internal Medicine 06/04/21 11/11/23 Pcp, Unknown PCP - General 11/12/23 11/16/23 Laura Mock MD, DMD [address] [address] [email or web address] PCP - General Internal Medicine 11/17/23 12/28/23 Pcp, Unknown PCP - General 02/28/24 03/04/24 [place] [address] [address] PCP - General 03/05/24 05/17/24 Laura Mock MD, DMD [address] [address] [email or web address] PCP - General Internal Medicine 05/18/24 Artie Meehan MD [address] [place] [address] [place] [address] Internal Medicine 10/26/17 04/23/22 Rina Swenson MD [address] [place] [address] [place] [address] Psychiatry 07/09/17 Laura Mock MD, DMD [address] [address] [email or web address] Partners Attributed Provider 09/01/21 07/03/23 Laura Mock MD, DMD [address] [address] [email or web address] Insurance Assigned Provider 05/31/23 03/01/24 Jakob Bob MD [address] [place] [address] [email or web address] Cardiology 08/22/23 Jose Cruz MD [address] [place] [address] Cardiology 08/22/23 Laura Mock MD, DMD [address] [address] [email or web address] Partners Attributed Provider 09/01/21 07/03/23 [place] [facility] [phone]. Consulting Provider 08/22/23 [facility] Connect 12/24/23 03/11/24 Cyril Morales [facility] [place] [address] Nurse Practitioner 02/27/24 documented as of this encounter Additional Source Comments The information contained in this document represents components of the legal health record. It is not the complete legal health record.[facility]
--- OUTSIDE RECORDS SUMMARY | 2024-10-22 10:57 | XMS_ITS | Encounter Summary ---
Author Organization [facility] Address [facility] [employer] [address] [address] Phone Care Team Providers Care Acquisition Manager Name Role Phone Artie Meehan MD Unavailable [...] Care Team (Late st Contact Info) Description 08/07/2021 Anti-coag visit [facility] Anticoagulation Clinic [address] [place] [address] Kenyatta Gamez, PharmD [email or web address] Social History Tobacco Use Types Packs/Day Years [...] Upcoming Encounters Date Type Department Care Team ([facility] st Contact Info) Description 05/24/2024 Procedure Pass [facility] Radiology [address] [place] [address] 11/24/2024 1:15 PM EDT Appointment [facility] Radiology [address] [place] [address] Jim Zacarias MD [address] [address] [email or web address] 11/24/2024 2:15 PM EDT Office Visit [facility] Thoracic Surgery 15 [facility] 204 [place] [address] Jim Zacarias MD [address] [address] [email or web address] 01/31/2025 1:00 PM EST Office [facility] Cardi[facility] Medicine 32 [facility], 5th Floor, [address] [place] [address] Karena Betancur MD 55 [facility] [address] [place] [address] [email or web address] Scheduled Procedures Name Priority Associated [...] documented as of this encounter Care Teams Acquisition Manager Relationship Specialty Start Date End Date Laura Mock MD, DMD [address] [address] [email or web address] PCP - General Internal Medicine 06/04/21 11/11/23 Pcp, Unknown PCP - General 11/12/23 11/16/23 Laura Mock MD, DMD [address] [address] [email or web address] PCP - General Internal Medicine 11/17/23 12/28/23 Pcp, Unknown PCP - General 02/28/24 03/04/24 [place] [address] [place] [address] PCP - General 03/05/24 05/17/24 Laura Mock MD, DMD [address] [address] [email or web address] PCP - General Internal Medicine 05/18/24 Artie Meehan MD [address] [place] [address] Dr Dior [facility] [place] [address] Internal Medicine 10/26/17 04/23/22 Rina Swenson MD [address] [place] [address] [place] [address] Psychiatry 07/09/17 Laura Mock MD, DMD [address] [address] [email or web address] Partners Attributed Provider 09/01/21 07/03/23 Laura Mock MD, DMD [address] [address] [email or web address] Insurance Assigned Provider 05/31/23 03/01/24 Jakob Bob MD [address] [place] [address] [email or web address] Cardiology 08/22/23 Jose Cruz MD [address] [place] [address] [email or web address] Cardiology 08/22/23 Laura Mock MD, DMD [address] [address] [email or web address] Partners Attributed Provider 09/01/21 07/03/23 [place] [facility] [phone]. Consulting Provider 08/22/23 [facility] Connect 12/24/23 03/11/24 Cyril Morales [address] [place] [address] Nurse Practitioner 02/27/24 documented as of this encounter Additional Source Comments The information contained in this document represents components of the legal health record. It is not the complete legal health record.[facility]
--- OUTSIDE RECORDS SUMMARY | 2024-10-22 10:57 | XMS_ITS | Encounter Summary ---
Author Organization [facility] Address [facility] [address] [place] [address] Phone Care Team Providers Care Adult Education Professional Name Role Phone Artie Meehan MD Primary [...] Care Team (Late st Contact Info) Description 05/03/2021 Procedure Pass [facility] Radiology [address] [place] [address] Social History Tobacco Use Types Packs/Day Years [...] Upcoming Encounters Date Type Department Care Team ([facility] Contact Info) Description 05/24/2024 Procedure Pass [facility] Radiology 75 [place] [address] 11/24/2024 1:15 PM EDT Appointment [facility] Radiology 75 [place] [address] Jim Zacarias MD [address] [address] [email or web address] 11/24/2024 2:15 PM EDT Office Visit [facility] Thoracic Surgery 15 [facility] 204 [place] [address] Jim Zacarias MD [address] [address] [email or web address] 01/31/2025 1:00 PM EST Office Visit [facility] Cardi[facility] Medicine 32 [facility], 5th Floor, [address] [place] [address] Karena Betancur MD 55 [facility] 5[address] [place] [address] [email or web address] Scheduled Procedures Name Priority Associated Diagnoses Date/Ti [...] documented as of this encounter Care Teams Adult Education Professional Relationship Specialty Start Date End Date Artie Meehan MD [address] [place] [address] [facility] [place] [place] [address] PCP - General Internal Medicine 10/26/17 06/03/21 Laura Mock MD, DMD [address] [address] [email or web address] PCP - General Internal Medicine 06/04/21 11/11/23 Pcp, Unknown PCP - General 11/12/23 11/16/23 Laura Mock MD, DMD [address] [address] [email or web address] PCP - General Internal Medicine 11/17/23 12/28/23 Pcp, Unknown PCP - General 02/28/24 03/04/24 Nicole Newell [place] [address] [place] [address] PCP - General 03/05/24 05/17/24 Laura Mock MD, DMD [address] [address] [email or web address] PCP - General Internal Medicine 05/18/24 Artie Meehan MD [address] [place] [address] Dr Dior Elisabeth [place]OL[place] [address] Internal Medicine 10/26/17 04/23/22 Rina Swenson MD [address] [place] [address] [place] [address] Psychiatry 07/09/17 Laura Mock MD, DMD [address] [address] [email or web address] Partners Attributed Provider 09/01/21 07/03/23 Laura Mock MD, DMD [address] [address] [email or web address] Insurance Assigned Provider 05/31/23 03/01/24 Jakob Bob MD [address] [place] [address] [email or web address] Cardiology 08/22/23 Jose Cruz MD [address] [place] [address] Cardiology 08/22/23 Laura Mock MD, DMD [address] [address] [email or web address] Partners Attributed Provider 09/01/21 07/03/23 [facility] [phone]. Consulting Provider 08/22/23 [facility] Connect 12/24/23 03/11/24 Cyril Morales [address] [place] [address] Nurse Practitioner 02/27/24 documented as of this encounter Additional Source Comments The information contained in this document represents components of the legal health record. It is not the complete legal health record.[facility]
--- OUTSIDE RECORDS SUMMARY | 2024-10-22 10:57 | XMS_ITS | Encounter Summary ---
Author Organization [facility] Address [address] [place] [address] Phone Care Team Providers Care Rotary Filter Operator Name Role Phone Rina Swenson MD Unavailable Jakob Bob MD Unavailable Jose Cruz MD Unavailable [phone] Laura Mock MD, DMD Primary Car e Provider Reason for Visit * Reason Comments Medication Refill Encounter Details Date Type Department Care Team (Late st Contact Info) Description 07/24/2024 Refill [facility] [address] [place] [address] 3rd Floor, [address] [place], [place] [phone] Jose Cruz MD [address] [place] [address], [address] [id number] [email or web address] Medication Refill Social History Tobacco Use Types Packs/Day Years [...] with a working camera? Not on file Intimate Partner Violence Answer Date R ecorded Are you denied basic needs s uch as food, clothing, or medical care? Deferred 11/12/2023 In the past 12 months have y ou been in a relationship with a person who hurts, threatens, or tries to control you? Deferred 11/12/2023 Are you denied basic needs s uch as food, clothing, or medical care? Deferred 11/12/2023 In the past 12 months have y ou been in a relationship with a person who hurts, threatens, or tries to control you? Deferred 11/12/2023 Comments No Sex and Gender Information Value [...] Contact Info) Description 05/24/2024 Procedure Pass [facility] Radiology [address] [place] [address] 11/24/2024 1:15 PM EDT Appointment [facility] Radiology [address] [place] [address] Jim Zacarias MD [address] [place] [address] [email or web address] 11/24/2024 2:15 PM EDT Office [facility] Thoracic Surgery 15 [facility] 204 [place] [address] Jim Zacarias MD [address] [place] [address] [email or web address] 01/31/2025 1:00 PM EST Office Visit [facility] Cardiovascular Medicine [address] [place] [address], 5th Floor, [address] [place] [address] Karena Betancur MD [address] [address] FRANK@[email or web address] Scheduled Procedures Name Priority Associated Diagnoses Date/Ti me COLONOSCOPY Abnormal colonoscopy documented as of this encounter Visit Diagnoses Not on filedocumented in this encounter Additional Health Concerns Assessment Noted Time PHQ-9 Depression Total Score: 17 023 11:28 AM EST PHQ-2 Depression Total Score: 2 10/10/19 23 11:28 AM EDT documented as of this encounter Care Teams Rotary Filter Operator Relationship Specialty Start Date End Date Laura Mock MD, DMD 1 [facility] 225 [place] [address] [email or web address] PCP - General Internal Medicine 05/18/24 Rina Swenson MD Psychiatry 07/09/17 Jakob Bob MD [address] [place] [address] [email or web address] Cardiology 08/22/23 Jose Cruz MD 22 [facility] [address] [place] [address] [email or web address] Cardiology 08/22/23 [facility] [phone]. Consulting Provider 08/22/23 Cyril Morales [facility] [place] [address] Nurse Practitioner 02/27/24 documented as of this encounter Additional Source Comments The information contained in this document represents components of the legal health record. It is not the complete legal health record.[facility]
--- OUTSIDE RECORDS SUMMARY | 2024-10-22 10:57 | XMS_ITS | Encounter Summary ---
Author Organization [facility] Address [address] [place] [address] Phone Care Team Providers Care Power System Electrical Engineer Name Role Phone Artie Meehan MD Unavailable [...] Care Team (Late st Contact Info) Description 09/10/2021 Anti-coag visit [facility] Rodney Junior, PharmD [address] [place] [address] [email or web address] Social History Tobacco Use Types Packs/Day Years [...] st Contact Info) Description 05/24/2024 Procedure Pass [facility] Radiology [address] [place] [address] 11/24/2024 1:15 PM EDT Appointment [facility] Radiology [address] [place] [address] Jim Zacarias MD [address] [address] [email or web address] 11/24/2024 2:15 PM EDT Office Visit [facility] Thoracic Surgery 15 [facility] 204 [place] [address] Jim Zacarias MD [address] [address] [email or web address] 01/31/2025 1:00 PM EST Office Visit [facility] Cardiovascular Medicine 32 [facility], 5th Floor, [address] [place] [address] Karena Betancur MD 55 [facility] 5B [place] [address] [email or web address] Scheduled Procedures Name Priority Associated Diagnoses Date/Ti [...] documented as of this encounter Care Teams Power System Electrical Engineer Relationship Specialty Start Date End Date Laura Mock MD, DMD [address] [address] [email or web address] du PCP - General Internal Medicine 06/04/21 11/11/23 Pcp, Unknown PCP - General 11/12/23 11/16/23 Laura Mock MD, DMD [address] [place] [address] [email or web address] PCP - General Internal Medicine 11/17/23 12/28/23 Pcp, Unknown PCP - General 02/28/24 03/04/24 Nicole Newell [place] [address] [place] [address] PCP - General 03/05/24 05/17/24 Laura Mock MD, DMD [address] [address] [email or web address] PCP - General Internal Medicine 05/18/24 Artie Meehan MD [address] [place] [address] Dr Dior [facility] [place] [address] Internal Medicine 10/26/17 04/23/22 Rina Swenson MD [address] [place] [address] [place] [address] Psychiatry 07/09/17 Laura Mock MD, DMD [address] [address] [email or web address] Partners Attributed Provider 09/01/21 07/03/23 Laura Mock MD, DMD [address] [address] [email or web address] du Insurance Assigned Provider 05/31/23 03/01/24 Jakob Bob MD [address] [place] [address] [email or web address] Cardiology 08/22/23 Jose Cruz MD [address] [place] [address] Cardiology 08/22/23 Laura Mock MD, DMD [address] [address] [email or web address] Partners Attributed Provider 09/01/21 07/03/23 [place] [facility] [phone]. Consulting Provider 08/22/23 [facility] Connect 12/24/23 03/11/24 Cyril Morales [address] [place] [address] Nurse Practitioner 02/27/24 documented as of this encounter Additional Source Comments The information contained in this document represents components of the legal health record. It is not the complete legal health record.[facility]
--- OUTSIDE RECORDS SUMMARY | 2024-10-22 10:57 | XMS_ITS | Encounter Summary ---
Author Organization [facility] Address [facility] [employer] [address] [address] Phone Care Team Providers Care Director State Pharmacy Name Role Phone Artie Meehan MD Unavailable [...] Care Team (Late st Contact Info) Description 09/07/2021 Anti-coag visit [facility] Anticoagulation Clinic [address] [place] [address] Kenyatta Gamez, PharmD [email or web address] Social History Tobacco Use Types [...] Upcoming Encounters Date Type Department Care Team ([facility] st Contact Info) Description 05/24/2024 Procedure Pass [facility] Radiology [address] [place] [address] 11/24/2024 1:15 PM EDT Appointment [facility] Radiology [address] [place] [address] Jim Zacarias MD [address] [address] [email or web address] 11/24/2024 2:15 PM EDT Office Visit [facility] Thoracic Surgery 15 [facility] 204 [place] [address] Jim Zacarias MD [address] [address] [email or web address] 01/31/2025 1:00 PM EST Office [facility] Cardi[facility] Medicine 32 [facility], 5th Floor, [address] [place] [address] Karena Betancur MD 55 [facility] 5B [place] [address] [email or web address] Scheduled Procedures Name Priority Associated Diagnoses [...] documented as of this encounter Care Teams Director State Pharmacy Relationship Specialty Start Date End Date Laura Mock MD, DMD [address] [address] [email or web address] PCP - General Internal Medicine 06/04/21 11/11/23 Pcp, Unknown PCP - General 11/12/23 11/16/23 Laura Mock MD, DMD [address] [address] [email or web address] du PCP - General Internal Medicine 11/17/23 12/28/23 Pcp, Unknown PCP - General 02/28/24 03/04/24 Nicole Newell [place] [address] [place] [address] PCP - General 03/05/24 05/17/24 Laura Mock MD, DMD [address] [address] [email or web address] PCP - General Internal Medicine 05/18/24 Artie Meehan MD [address] [place] [address] Dr Dior [facility] [place] [address] Internal Medicine 10/26/17 04/23/22 Rina Swenson MD [address] [place] [address] [place] [address] Psychiatry 07/09/17 Laura Mock MD, DMD [address] [address] [email or web address] Partners Attributed Provider 09/01/21 07/03/23 Laura Mock MD, DMD [address] [address] [email or web address] du Insurance Assigned Provider 05/31/23 03/01/24 Jakob Bob MD [address] [place] [address] [email or web address] Cardiology 08/22/23 Jose Cruz MD [address] [place] [address] [email or web address] Cardiology 08/22/23 Laura Mock MD, DMD [address] [address] [email or web address] Partners Attributed Provider 09/01/21 07/03/23 [place] [facility] [phone]. Consulting Provider 08/22/23 [facility] Connect 12/24/23 03/11/24 Cyril Morales [address] [place] [address] Nurse Practitioner 02/27/24 documented as of this encounter Additional Source Comments The information contained in this document represents components of the legal health record. It is not the complete legal health record.[facility]
--- OUTSIDE RECORDS SUMMARY | 2024-10-22 10:57 | XMS_ITS | Encounter Summary ---
Author Organization [facility] Address [facility] [address] [address] Phone Care Team Providers Care Printed Circuit Photographer Name Role Phone Rina Swenson MD Unavailable Laura Mock MD, DMD Primary Car e Provider Laura Mock MD, DMD Unavailable Laura Mock MD, DMD Unavailable Jakob Bob MD Unavailable [phone] Jose Cruz MD Unavailable Laura Mock MD, DMD Unavailable Pcp, Unknown Primary Care Provider UnavailLaura Ascencio MD, DMD Primary Car e Provider Pcp, Unknown Primary Care Provider UnavailNicole Arguello MD Primary Care Provide r Laura Mock MD, DMD Primary Car e Provider Encounter Details Date Type Department Care Team (Late st Contact Info) Description 06/09/2022 Anti-coag visit VIRTUAL DEPARTMENT Unknown, Unknown, Social [...] st Contact Info) Description 05/24/2024 Procedure Pass [facility] Radiology 75 [place] [address] 11/24/2024 1:15 PM EDT Appointment [facility] Radiology 75 [place] [address] Jim Zacarias MD [address] [address] [email or web address] 11/24/2024 2:15 PM EDT Office Visit [facility] Thoracic Surgery [address] [address] Jim Zacarias MD [address] [address] [email or web address] 01/31/2025 1:00 PM EST Office Visit [facility] Cardiovascular Medicine 32 [facility], 5th Floor, [address] [place] [address] Karena Betancur MD [address] [address] [email or web address] Scheduled Procedures Name Priority Associated [...] documented as of this encounter Care Teams Printed Circuit Photographer Relationship Specialty Start Date End Date Laura Mock MD, DMD [address] [address] [email or web address] PCP - General Internal Medicine 06/04/21 11/11/23 Pcp, Unknown PCP - General 11/12/23 11/16/23 Laura Mock MD, DMD [address] [address] [email or web address] du PCP - General Internal Medicine 11/17/23 12/28/23 Pcp, Unknown PCP - General 02/28/24 03/04/24 Nicole Newell MD [address] [place] [address] PCP - General 03/05/24 05/17/24 Laura Mock MD, DMD [address] [address] [email or web address] du PCP - General Internal Medicine 05/18/24 Rina Swenson MD Psychiatry 07/09/17 Laura Mock MD, DMD [address] [address] [email or web address] du Partners Attributed Provider 09/01/21 07/03/23 Laura Mock MD, DMD 1 [facility] [address] [place] [address] [email or web address] du Insurance Assigned Provider 05/31/23 03/01/24 Jakob Bob MD [address] [place] [address] [email or web address] Cardiology 08/22/23 Jose Cruz MD [address] [place] [address], [facility] [address] [place] [address] [email or web address] Cardiology 08/22/23 Laura Mock MD, DMD [address] [address] [email or web address] Attributed Provider 09/01/21 07/03/23 [facility] [phone]. Consulting Provider 08/22/23 [facility] Connect 12/24/23 03/11/24 Cyril Morales [facility] [place] [address] Nurse Practitioner 02/27/24 documented as of this encounter Additional Source Comments The information contained in this document represents components of the legal health record. It is not the complete legal health record.[facility]
--- OUTSIDE RECORDS SUMMARY | 2024-10-22 10:57 | XMS_ITS | Encounter Summary ---
Author Organization [facility] Address [facility] [employer] [facility] [address] [place] [address] Phone Care Team Providers Care Rabies Inspector Name Role Phone Rina Swenson MD Unavailable [phone] Laura Mock MD, DMD Primary Car e [...] Care Team (Late st Contact Info) Description 10/26/2022 Anti-coag visit [facility] Anticoagulation Clinic 75 [place], [place] [id number] Melvin Stewart, [facility] [address] [place] [address] [email or web address] Social History Tobacco Use Types Packs/Day [...] st Contact Info) Description 05/24/2024 Procedure Pass [facility] Radiology [address] [place] [address] 11/24/2024 1:15 PM EDT Appointment [facility] Radiology [address] [place] [address] Jim Zacarias MD [address] [place] [address] [email or web address] 11/24/2024 2:15 PM EDT Office Visit [facility] Thoracic Surgery 15 [facility] 204 [place] [address] Jim Zacarias MD [address] [place] [address] [email or web address] 01/31/2025 1:00 PM EST Office Visit [facility] Cardiovascular Medicine [address] [place] [address], 5th Floor, [address] [place] [address] Karena Betancur MD 55 [facility] [address] [place] [address] [email or web address] Scheduled Procedures Name Priority Associated Diagnoses [...] documented as of this encounter Care Teams Rabies Inspector Relationship Specialty Start Date End Date Laura Mock MD, DMD [address] [address] [email or web address] du PCP - General Internal Medicine 06/04/21 11/11/23 Pcp, Unknown PCP - General 11/12/23 11/16/23 Laura Mock MD, DMD [address] [address] [email or web address] du PCP - General Internal Medicine 11/17/23 12/28/23 Pcp, Unknown PCP - General 02/28/24 03/04/24 [place] [address] [address] PCP - General 03/05/24 05/17/24 Laura Mock MD, DMD [address] [address] [email or web address] du PCP - General Internal Medicine 05/18/24 Rina Swenson MD Psychiatry 07/09/17 Laura Mock MD, DMD [address] [address] [email or web address] du Partners Attributed Provider 09/01/21 07/03/23 Laura Mock MD, DMD [address] [address] [email or web address] du Insurance Assigned Provider 05/31/23 03/01/24 Jakob Bob MD [address] [place] [address] [email or web address] Cardiology 08/22/23 Jose Cruz MD [address] [place] [address] [address] [place] [address] Cardiology 08/22/23 Laura Mock MD, DMD [address] [address] [email or web address]. [email or web address] Partners Attributed Provider 09/01/21 07/03/23 [facility] [phone]. Consulting Provider 08/22/23 [facility] Connect 12/24/23 03/11/24 Cyril Morales [address] [place] [address] Nurse Practitioner 02/27/24 documented as of this encounter Additional Source Comments The information contained in this document represents components of the legal health record. It is not the complete legal health record.[facility]
--- OUTSIDE RECORDS SUMMARY | 2024-10-22 10:57 | XMS_ITS | Encounter Summary ---
Author Organization [facility] Address [address] [place] [address] Phone Care Team Providers Care Mill Recorder Name Role Phone Rina Swenson MD Unavailable [...] Care Team (Late st Contact Info) Description 08/08/2022 Anti-coag visit [facility] Anticoagulation Clinic [address] [place] [address] Kenyatta Gamez, PharmDanyell [email or web address] Social History Tobacco Use Types Packs/Day Years Used Date Smoking Tobacco: Never Smokeless Tobacco: Never Alcohol Use Standard Drinks/Week Comments No 0 (1 standard drink = 0.6 oz pur e alcohol) Education Answer Date Recorded Are you interested in more education? Not on lima e 06/22/2022 Are you concerned about learning? [...] st Contact Info) Description 05/24/2024 Procedure Pass [facility] Radiology [address] [place] [address] 11/24/2024 1:15 PM EDT Appointment [facility] Radiology [address] [place] [address] Jim Zacarias MD [address] [address] [email or web address] 11/24/2024 2:15 PM EDT Office Visit [facility] Thoracic Surgery 15 [facility] 204 [place] [address] Jim Zacarias MD [address] [address] [email or web address] 01/31/2025 1:00 PM EST Office Visit [facility] Cardiovascular Medicine 32 [facility], 5th Floor, [address] [place] [address] Karena Betancur MD [address] [place] [address] [address] [place] [address] [email or web address] Scheduled Procedures Name Priority Associated Diagnoses [...] documented as of this encounter Care Teams Mill Recorder Relationship Specialty Start Date End Date Laura Mock MD, DMD [address] [address] [email or web address] PCP - General Internal Medicine 06/04/21 11/11/23 Pcp, Unknown PCP - General 11/12/23 11/16/23 Laura Mock MD, DMD [address] [address] [email or web address] du PCP - General Internal Medicine 11/17/23 12/28/23 Pcp, Unknown PCP - General 02/28/24 03/04/24 Nicole Newell MD [address] [place] [address] PCP - General 03/05/24 05/17/24 Laura Mock MD, DMD [address] [address] [email or web address] du PCP - General Internal Medicine 05/18/24 Rina Swenson MD Psychiatry 07/09/17 Laura Mock MD, DMD 1 [facility] [address] [place] [address] [email or web address] Partners Attributed Provider 09/01/21 07/03/23 Laura Mock MD, DMD [address] [address] [email or web address] du Insurance Assigned Provider 05/31/23 03/01/24 Jakob Bob MD [address] [place] [address] [email or web address] Cardiology 08/22/23 Jose Cruz MD [address] [place] [address] [email or web address] Cardiology 08/22/23 Laura Mock MD, DMD [address] [address] [email or web address] Partners Attributed Provider 09/01/21 07/03/23 [facility] [phone]. Consulting Provider 08/22/23 [facility] Connect 12/24/23 03/11/24 Cyril Morales [address] [place] [phone] Nurse Practitioner 02/27/24 documented as of this encounter Additional Source Comments The information contained in this document represents components of the legal health record. It is not the complete legal health record.[facility]
--- OUTSIDE RECORDS SUMMARY | 2024-10-22 10:57 | XMS_ITS | Encounter Summary ---
Author Organization [facility] Address [address] [place] [address] Phone Care Team Providers Care High School Biology Teacher Name Role Phone Rina Swenson MD Unavailable [phone] Jakob Bob MD Unavailable [phone] Jose Cruz MD Unavailable Laura Mock MD, DMD Primary Car e Provider Encounter Details Date Type Department Care Team (Late st Contact Info) Description 08/18/2024 Hospital Encounter [facility] Endoscopy Department [address] [place] [address] Irineo Ruff MD [address] [place] [address] [place] [address] [email or web address] Social History Tobacco Use Types Packs/Day Years [...] st Contact Info) Description 05/24/2024 Procedure Pass [facility] Radiology [address] [place] [address] 11/24/2024 1:15 PM EDT Appointment [facility] Radiology [address] [place] [address] Jim Zacarias MD [address] [address] [email or web address] 11/24/2024 2:15 PM EDT Office Visit [facility] Thoracic Surgery [address] [address] Jim Zacarias MD [address] [address] [email or web address] 01/31/2025 1:00 PM EST Office Visit [facility] [place] Medicine 32 [facility], 5th Floor, [address] [place] [address] Karena Betancur MD [address] [address] [email or web address] Scheduled Procedures Name Priority Associated Diagnoses Date/Ti me COLONOSCOPY Abnormal colonoscopy documented as of this encounter Visit Diagnoses Not on filedocumented in this encounter Additional Health Concerns Assessment Noted Time PHQ-9 Depression Total Score: 17 023 11:28 AM EST PHQ-2 Depression Total Score: 2 10/10/19 23 11:28 AM EDT documented as of this encounter Care Teams High School Biology Teacher Relationship Specialty Start Date End Date Laura Mock MD, DMD 1 [facility] [address] [place] [address] [email or web address] PCP - General Internal Medicine 05/18/24 Rina Swenson MD Psychiatry 07/09/17 Jakob Bob MD [address] [place] [address] [email or web address] Cardiology 08/22/23 Jose Cruz MD 22 [facility] [address] [place] [address] [email or web address] Cardiology 08/22/23 [facility] [phone]. Consulting Provider 08/22/23 Cyril Morales [facility] [place] [address] Nurse Practitioner 02/27/24 documented as of this encounter Additional Source Comments The information contained in this document represents components of the legal health record. It is not the complete legal health record.[facility]
--- OUTSIDE RECORDS SUMMARY | 2024-10-22 10:57 | XMS_ITS | Encounter Summary ---
Author Organization [facility] Address [address] [place] [address] Phone Care Team Providers Care Store Clerk Cashier Name Role Phone Rina Swenson MD Unavailable Laura Mock MD, DMD Primary Car e Provider Laura Mock MD, DMD Unavailable Laura Mock MD, DMD Unavailable Jakob Bob MD Unavailable [phone] Jose Cruz MD Unavailable [phone] Laura Mock MD, DMD Unavailable Pcp, Unknown Primary Care Provider UnavailLaura Ascencio MD, DMD Primary Car e Provider Pcp, Unknown Primary Care Provider UnavailNicole Arguello MD Primary Care Provide r Laura Mock MD, DMD Primary Car e Provider Encounter Details Date Type Department Care Team (Late st Contact Info) Description 04/25/2022 Anti-coag visit [facility] Anticoagulation Clinic [address] [place] [address] Kenyatta Gamez, PharmDanyell [email or web address] Social History Tobacco Use Types [...] Procedure Pass [facility] Radiology [address] [place] [address] 11/24/2024 1:15 PM EDT Appointment [facility] Radiology [address] [place] [address] Jim Zacarias MD [address] [address] [email or web address] 11/24/2024 2:15 PM EDT Office Visit [facility] Thoracic Surgery 15 [facility] 204 [place] [address] Jim Zacarias MD [address] [address] [email or web address] 01/31/2025 1:00 PM EST Office Visit [facility] Cardiovascular Medicine 32 [facility], 5th Floor, [address] [place] [address] Karena Betancur MD 55 [facility] 5[address] [place] [address] [email or web address] Scheduled Procedures Name Priority Associated Diagnoses Date/Ti [...] documented as of this encounter Care Teams Store Clerk Cashier Relationship Specialty Start Date End Date Laura Mock MD, DMD [address] [address] [email or web address] du PCP - General Internal Medicine 06/04/21 11/11/23 Pcp, Unknown PCP - General 11/12/23 11/16/23 Laura Mock MD, DMD [address] [address] [email or web address] du PCP - General Internal Medicine 11/17/23 12/28/23 Pcp, Unknown PCP - General 02/28/24 03/04/24 Nicole Newell MD [address] [place] [address] PCP - General 03/05/24 05/17/24 Laura Mock MD, DMD [address] [address] [email or web address] du PCP - General Internal Medicine 05/18/24 Rina Swenson MD Psychiatry 07/09/17 Laura Mock MD, DMD [address] [address] [email or web address]. [email or web address] Partners Attributed Provider 09/01/21 07/03/23 Laura Mock MD, DMD 1 [facility] [address] [place] [address] [email or web address]. du Insurance Assigned Provider 05/31/23 03/01/24 Jakob Bob MD [address] [place] [address] [email or web address] Cardiology 08/22/23 Jose Cruz MD [address] [place] [address] Cardiology 08/22/23 Laura Mock MD, DMD [address] [address] [email or web address] du Partners Attributed Provider 09/01/21 07/03/23 [facility] [phone]. Consulting Provider 08/22/23 [facility] Connect 12/24/23 03/11/24 Cyril Morales [address] [place] [address] Nurse Practitioner 02/27/24 documented as of this encounter Additional Source Comments The information contained in this document represents components of the legal health record. It is not the complete legal health record.[facility]
--- OUTSIDE RECORDS SUMMARY | 2024-10-22 10:57 | XMS_ITS | Encounter Summary ---
Author Organization [facility] Address [facility] [address] [address] Phone Care Team Providers Care Gear Straightener Name Role Phone Artie Meehan MD Unavailable [...] Care Team (Late st Contact Info) Description 08/09/2021 Anti-coag visit VIRTUAL DEPARTMENT Unknown, Unknown, MD [...] st Contact Info) Description 05/24/2024 Procedure Pass [facility] Radiology [address] [place] [address] 11/24/2024 1:15 PM EDT Appointment [facility] Radiology [address] [place] [address] Jim Zacarias MD [address] [address] [email or web address] 11/24/2024 2:15 PM EDT Office Visit [facility] Thoracic Surgery 15 [facility] [place] [facility] 204 [place] [address] Jim Zacarias MD [address] [address] [email or web address] 01/31/2025 1:00 PM EST Office Visit [facility] Cardiovascular Medicine 32 [facility], 5th Floor, [address] [place] [address] Karena Betancur MD 55 [facility] 5[address] [place] [address] [email or web address] Scheduled Procedures Name Priority Associated Diagnoses [...] documented as of this encounter Care Teams Gear Straightener Relationship Specialty Start Date End Date Laura Mock MD, DMD 1 [facility] 225 [place] [address] [email or web address] du PCP - General Internal Medicine 06/04/21 11/11/23 Pcp, Unknown PCP - General 11/12/23 11/16/23 Laura Mock MD, DMD [address] [address] [email or web address] du PCP - General Internal Medicine 11/17/23 12/28/23 Pcp, Unknown PCP - General 02/28/24 03/04/24 [place] [address] [place] [address] PCP - General 03/05/24 05/17/24 Laura Mock MD, DMD [address] [address] [email or web address] du PCP - General Internal Medicine 05/18/24 Artie Meehan MD [address] [place] [address] [place] [address] Internal Medicine 10/26/17 04/23/22 Rina Swenson MD [address] [place] [address] [place] [address] Psychiatry 07/09/17 Laura Mock MD, DMD [address] [address] [email or web address] Partners Attributed Provider 09/01/21 07/03/23 Laura Mock MD, DMD [address] [address] [email or web address] Insurance Assigned Provider 05/31/23 03/01/24 Jakob Bob MD [address] [place] [address] [email or web address] Cardiology 08/22/23 Jose Cruz MD [address] [place] [address], [address] [place] [address] Cardiology 08/22/23 Laura Mock MD, DMD [address] [address] [email or web address] Partners Attributed Provider 09/01/21 07/03/23 [facility] [phone]. Consulting Provider 08/22/23 [facility] Connect 12/24/23 03/11/24 Cyril Morales [address] [place] [address] Nurse Practitioner 02/27/24 documented as of this encounter Additional Source Comments The information contained in this document represents components of the legal health record. It is not the complete legal health record.[facility]
--- OUTSIDE RECORDS SUMMARY | 2024-10-22 10:57 | XMS_ITS | Encounter Summary ---
Author Organization [facility] Address [address] [place] [address] [place] [address] Phone Care Team Providers Care Tobacco Curer Name Role Phone Rina Swenson MD Unavailable [...] Care Team (Late st Contact Info) Description 12/10/2022 Anti-coag visit [facility] Cardiovascular Health [address] [place] [address] Thibeault, Catherine NasrinLatricia [email or web address] Social History Tobacco Use Types [...] st Contact Info) Description 05/24/2024 Procedure Pass [facility] Radiology [address] [place] [address] 11/24/2024 1:15 PM EDT Appointment [facility] Radiology [address] [place] [address] Jim Zacarias MD [address] [address] [email or web address] 11/24/2024 2:15 PM EDT Office Visit [facility] Thoracic Surgery 15 [facility] 204 [place] [address] Jim Zacarias MD [address] [address] [email or web address] 01/31/2025 1:00 PM EST Office Visit [facility] Cardi[facility] Medicine 32 [facility], 5th Floor, [address] [place] [address] Karena Betancur MD [address] [place] [address] [address] [place] [address] [email or web address] Scheduled Procedures Name Priority Associated Diagnoses [...] documented as of this encounter Care Teams Tobacco Curer Relationship Specialty Start Date End Date Laura Mock MD, DMD [address] [address] [email or web address] PCP - General Internal Medicine 06/04/21 11/11/23 Pcp, Unknown PCP - General 11/12/23 11/16/23 Laura Mock MD, DMD [address] [address] [email or web address] PCP - General Internal Medicine 11/17/23 12/28/23 Pcp, Unknown PCP - General 02/28/24 03/04/24 [place] [address] [address] PCP - General 03/05/24 05/17/24 Laura Mock MD, DMD [address] [address] [email or web address] PCP - General Internal Medicine 05/18/24 Rina Swenson MD Psychiatry 07/09/17 Laura Mock MD, DMD [address] [address] [email or web address] [employer] Attributed Provider 09/01/21 07/03/23 Laura Mock MD, DMD [address] [address] [email or web address] du Insurance Assigned Provider 05/31/23 03/01/24 Jakob Bob MD [address] [place] [address] [email or web address] Cardiology 08/22/23 Jose Cruz MD [address] [place] [address] [email or web address] Cardiology 08/22/23 Laura Mock MD, DMD [address] [address] [email or web address] [employer] Attributed Provider 09/01/21 07/03/23 [facility] [phone]. Consulting Provider 08/22/23 [facility] Connect 12/24/23 03/11/24 Cyril Morales [address] [place] [phone] Nurse Practitioner 02/27/24 documented as of this encounter Additional Source Comments The information contained in this document represents components of the legal health record. It is not the complete legal health record.[facility]
--- OUTSIDE RECORDS SUMMARY | 2024-10-22 10:57 | XMS_ITS | Patient Health Record ---
Author Organization [facility] Address [address] [place] [address] Care Team Providers Care Concrete Panel Installer Name Role Phone PCP, Does not have [...] Medicare [place] [address] [place] [address] [id number] RONNIE UNDERWOOD Self - patient is the insured Medical (General) History Medical History History ICD Code cataracts heart valve
--- OUTSIDE RECORDS SUMMARY | 2024-10-22 10:57 | XMS_ITS | Encounter Summary ---
Author Organization [facility] Address [address] [address] [address] [place] [address] Phone Care Team Providers Care Precision Lens Grinder Name Role Phone Rina Swenson MD Unavailable Jakob Bob MD Unavailable Jose Cruz MD Unavailable [phone] Laura Mock MD, DMD Primary Car e Provider Reason for Visit * Reason Onset Date Comments Colonoscopy 10/13/2024 Encounter Details Date Type Department Care Team (Late st Contact Info) Description 10/13/2024 Telephone [facility] [address] 2nd [place] [address] Laura Mock MD, DMD 1 [facility] [address] [place] [address] [email or web address] Colonoscopy Social History Tobacco Use Types Packs/Day Years [...] PM EDT documented as of this encounter Progress Notes * Pradeep Quevedo - 10/13/2024 9:18 AM EDT Pt called and want to talk about colonoscopy with Maria Elena. That is all she wants to say and only want to talk to Maria Elena. Thank you documented in this encounter Plan of Treatment Upcoming Encounters Date Type Department Care Team (Late st Contact Info) Description 05/24/2024 Procedure Pass [facility] Radiology [address] [place] [address] 11/24/2024 1:15 PM EDT Appointment [facility] [address] [place] [address] Jim Zacarias MD [address] [address] [email or web address] 11/24/2024 2:15 PM EDT Office Visit [facility] Thoracic Surgery [address] [address] Jim Zacarias MD [address] [facility] [address] [place] [address] [email or web address] 01/31/2025 1:00 PM EST Office Visit [facility] Cardiovascular Medicine 32 [facility], 5th Floor, [address] [place] [address] Karena Betancur MD 55 [facility] 5B [place] [address] FRANK@[email or web address] Scheduled Procedures Name Priority Associated Diagnoses Date/Ti me COLONOSCOPY Abnormal colonoscopy documented as of this encounter Visit Diagnoses Not on filedocumented in this encounter Additional Health Concerns Assessment Noted Time PHQ-9 Depression Total Score: 17 04/24/ 023 11:28 AM EST PHQ-2 Depression Total Score: 2 10/10/19 23 11:28 AM EDT documented as of this encounter Care Teams Precision Lens Grinder Relationship Specialty Start Date End Date Laura Mock MD, DMD 1 [facility] 225 [place] [address] [email or web address] PCP - General Internal Medicine 05/18/24 Rina Swenson MD Psychiatry 07/09/17 Jakob Bob MD [address] [place] [address] [email or web address] Cardiology 08/22/23 Jose Cruz MD 22 [facility], [address] [place] [address] [email or web address] Cardiology 08/22/23 [facility] [phone]. Consulting Provider 08/22/23 Cyril Morales [address] [place] [address] Nurse Practitioner 02/27/24 documented as of this encounter Additional Source Comments The information contained in this document represents components of the legal health record. It is not the complete legal health record.[facility]
--- OUTSIDE RECORDS SUMMARY | 2024-10-22 10:57 | XMS_ITS | Encounter Summary ---
Author Organization [facility] Address [facility] [employer] [address] [address] Phone Care Team Providers Care Sprinkler Worker Name Role Phone Rina Swenson MD Unavailable Laura Mock MD, DMD Primary Car e Provider Laura Mock MD, DMD Unavailable Laura Mock MD, DMD Unavailable Jakob Bob MD Unavailable [phone] Jose Cruz MD Unavailable [phone] Laura Mock MD, DMD Unavailable Pcp, Unknown Primary Care Provider UnavailLaura Ascencio MD, DMD Primary Car e Provider Pcp, Unknown Primary Care Provider UnavailNicole Arguello MD Primary Care Provide r Laura Mock MD, DMD Primary Car e Provider Encounter Details Date Type Department Care Team (Late st Contact Info) Description 10/10/2022 Anti-coag visit [facility] Unknown, Unknown, Social [...] st Contact Info) Description 05/24/2024 Procedure Pass [facility] Radiology 75 [place] [address] 11/24/2024 1:15 PM EDT Appointment [facility] Radiology 75 [place] [address] Jim Zacarias MD [address] [address] [email or web address] 11/24/2024 2:15 PM EDT Office Visit [facility] Thoracic Surgery 15 [facility] 204 [place] [address] Jim Zacarias MD [address] [address] [email or web address] 01/31/2025 1:00 PM EST Office Visit [facility] Cardiovascular Medicine 32 [facility], 5th Floor, [address] [place] [address] Karena Betancur MD 55 [facility] 5[address] [place] [address] [email or web address] Scheduled Procedures Name Priority Associated [...] documented as of this encounter Care Teams Sprinkler Worker Relationship Specialty Start Date End Date Laura Mock MD, DMD [address] [address] [email or web address] du PCP - General Internal Medicine 06/04/21 11/11/23 Pcp, Unknown PCP - General 11/12/23 11/16/23 Laura Mock MD, DMD [address] [address] [email or web address] du PCP - General Internal Medicine 11/17/23 12/28/23 Pcp, Unknown PCP - General 02/28/24 03/04/24 Nicole Newell MD [address] [place] [address] PCP - General 03/05/24 05/17/24 Laura Mock MD, DMD [address] [address] [email or web address] PCP - General Internal Medicine 05/18/24 Rina Swenson MD Psychiatry 07/09/17 Laura Mock MD, DMD [address] [address] [email or web address] du Partners Attributed Provider 09/01/21 07/03/23 Laura Mock MD, DMD [address] [address] [email or web address] du Insurance Assigned Provider 05/31/23 03/01/24 Jakob Bob MD [address] [place] [address] [email or web address] Cardiology 08/22/23 Jose Cruz MD [address] [place] [address], [address] [address] [email or web address] Cardiology 08/22/23 Laura Mock MD, DMD [address] [address] [email or web address] [employer] Attributed Provider 09/01/21 07/03/23 [facility] [phone]. Consulting Provider 08/22/23 [facility] Connect 12/24/23 03/11/24 Cyril Morales [address] [place] [address] Nurse Practitioner 02/27/24 documented as of this encounter Additional Source Comments The information contained in this document represents components of the legal health record. It is not the complete legal health record.[facility]
--- OUTSIDE RECORDS SUMMARY | 2024-10-22 10:57 | XMS_ITS | Encounter Summary ---
Author Organization [facility] Address [address] [place] [address] Phone Care Team Providers Care Tool Room Supervisor Name Role Phone Rina Swenson MD Unavailable Laura Mock MD, DMD Primary Car e Provider Laura Mock MD, DMD Unavailable Laura Mock MD, DMD Unavailable Jakob Bob MD Unavailable Jose Cruz MD Unavailable [phone] Laura Mock MD, DMD Unavailable Pcp, Unknown Primary Care Provider UnavailLaura Ascencio MD, DMD Primary Car e Provider Pcp, Unknown Primary Care Provider UnavailNicole Arguello MD Primary Care Provide r Laura Mock MD, DMD Primary Car e Provider Encounter Details Date Type Department Care Team (Late st Contact Info) Description 10/29/2022 Anti-coag visit [facility] Cardiovascular Health [address] [place] [address] Thibeault, Catherine NasrinLatricia [email or web address] Social History Tobacco Use Types Packs/Day Years [...] st Contact Info) Description 05/24/2024 Procedure Pass [facility] Radiology [address] [place] [address] 11/24/2024 1:15 PM EDT Appointment [facility] Radiology [address] [place] [address] Jim Zacarais MD [address] [address] [email or web address] 11/24/2024 2:15 PM EDT Office Visit [facility] Thoracic Surgery 15 [facility] 204 [place] [address] Jim Zacarias MD [address] [address] [email or web address] 01/31/2025 1:00 PM EST Office Visit [facility] Cardiovascular Medicine 32 [facility], 5th Floor, [address] [place] [address] Karena Betancur MD [address] [place] [address] [address] [place] [address] [email or web address] Scheduled Procedures Name Priority Associated [...] documented as of this encounter Care Teams Tool Room Supervisor Relationship Specialty Start Date End Date Laura Mock MD, DMD [address] [address] [email or web address] PCP - General Internal Medicine 06/04/21 11/11/23 Pcp, Unknown PCP - General 11/12/23 11/16/23 Laura Mock MD, DMD [address] [address] [email or web address] PCP - General Internal Medicine 11/17/23 12/28/23 Pcp, Unknown PCP - General 02/28/24 03/04/24 [place] [address] [address] PCP - General 03/05/24 05/17/24 Laura Mock MD, DMD [address] [address] [email or web address] PCP - General Internal Medicine 05/18/24 Rina Swenson MD Psychiatry 07/09/17 Laura Mock MD, DMD [address] [address] [email or web address] [employer] Attributed Provider 09/01/21 07/03/23 Laura Mock MD, DMD [address] [address] [email or web address] Insurance Assigned Provider 05/31/23 03/01/24 Jakob Bob MD [address] [place] [address] [email or web address] Cardiology 08/22/23 Jose Cruz MD [address] [place] [address] [email or web address] Cardiology 08/22/23 Laura Mock MD, DMD [address] [address] [email or web address] Attributed Provider 09/01/21 07/03/23 [facility] [phone]. Consulting Provider 08/22/23 [facility] Connect 12/24/23 03/11/24 Cyril Morales [address] [place] [phone] Nurse Practitioner 02/27/24 documented as of this encounter Additional Source Comments The information contained in this document represents components of the legal health record. It is not the complete legal health record.[facility]
--- OUTSIDE RECORDS SUMMARY | 2024-10-22 10:57 | XMS_ITS | Encounter Summary ---
Author Organization [facility] Address [employer] [facility] [address] [place] [address] Phone Care Team Providers Care Parts Chaser Name Role Phone Rina Swenson MD Unavailable [...] Care Team (Late st Contact Info) Description 07/26/2022 Anti-coag visit [facility] Anticoagulation Clinic 75 [place], [place] [phone] Melvin Stewart, [facility] [address] [place] [address] [email or web address] Social History Tobacco Use Types Packs/Day Years [...] st Contact Info) Description 05/24/2024 Procedure Pass [facility] Radiology [address] [place] [address] 11/24/2024 1:15 PM EDT Appointment [facility] Radiology [address] [place] [address] Jim Zacarias MD [address] [place] [address] [email or web address] 11/24/2024 2:15 PM EDT Office Visit [facility] Thoracic Surgery 15 [facility] 204 [place] [address] Jim Zacarias MD [address] [place] [address] [email or web address] 01/31/2025 1:00 PM EST Office [facility] [place] Medicine [address] [place] [address], 5th Floor, [address] [place] [address] Karena Betancur MD 55 [facility] [address] [place] [address] [email or web address] Scheduled Procedures Name Priority Associated [...] documented as of this encounter Care Teams Parts Chaser Relationship Specialty Start Date End Date Laura Mock MD, DMD [address] [address] [email or web address] PCP - General Internal Medicine 06/04/21 11/11/23 Pcp, Unknown PCP - General 11/12/23 11/16/23 Laura Mock MD, DMD [address] [address] [email or web address] PCP - General Internal Medicine 11/17/23 12/28/23 Pcp, Unknown PCP - General 02/28/24 03/04/24 [place] [address] [address] PCP - General 03/05/24 05/17/24 Laura Mock MD, DMD [address] [address] [email or web address] PCP - General Internal Medicine 05/18/24 Rina Swenson MD Psychiatry 07/09/17 Laura Mock MD, DMD [address] [address] [email or web address] [employer] Attributed Provider 09/01/21 07/03/23 Laura Mock MD, DMD [address] [address] [email or web address] Insurance Assigned Provider 05/31/23 03/01/24 Jakob Bob MD [address] [place] [address] [email or web address] Cardiology 08/22/23 Jose Cruz MD [address] [place] [address], [address] [place] [address] Cardiology 08/22/23 Laura Mock MD, DMD [address] [address] [email or web address] Attributed Provider 09/01/21 07/03/23 [facility] [phone]. Consulting Provider 08/22/23 [facility] Connect 12/24/23 03/11/24 Cyril Morales [address] [place] [address] Nurse Practitioner 02/27/24 documented as of this encounter Additional Source Comments The information contained in this document represents components of the legal health record. It is not the complete legal health record.[facility]
--- OUTSIDE RECORDS SUMMARY | 2024-10-22 10:57 | XMS_ITS | Encounter Summary ---
Author Organization [facility] Address [facility] [employer] [facility] [address] [place] [address] Phone Care Team Providers Care Merchandise Clerk Name Role Phone Rina Swenson MD Unavailable [...] Care Team (Late st Contact Info) Description 10/07/2022 Procedure Pass [facility] [address] [place] [address] Social History Tobacco Use Types Packs/Day Years [...] st Contact Info) Description 05/24/2024 Procedure Pass [facility] Radiology [address] [place] [address] 11/24/2024 1:15 PM EDT Appointment [facility] Radiology [address] [place] [address] Jim Zacarias MD [address] [address] [email or web address] 11/24/2024 2:15 PM EDT Office Visit [facility] Thoracic Surgery 15 [facility] 204 [place] [address] Jim Zacarias MD [address] [address] [email or web address] 01/31/2025 1:00 PM EST Office Visit [facility] Cardiovascular Medicine 32 [facility], 5th Floor, [address] [place] [address] Karena Betancur MD [address] [address] [email or web address] Scheduled Procedures Name Priority Associated Diagnoses [...] documented as of this encounter Care Teams Merchandise Clerk Relationship Specialty Start Date End Date Laura Mock MD, DMD [address] [address] [email or web address] PCP - General Internal Medicine 06/04/21 11/11/23 Pcp, Unknown PCP - General 11/12/23 11/16/23 Laura Mock MD, DMD [address] [address] [email or web address] PCP - General Internal Medicine 11/17/23 12/28/23 Pcp, Unknown PCP - General 02/28/24 03/04/24 [place] [address] [address] PCP - General 03/05/24 05/17/24 Laura Mock MD, DMD [address] [address] [email or web address] PCP - General Internal Medicine 05/18/24 Rina Swenson MD Psychiatry 07/09/17 Laura Mock MD, DMD [address] [address] [email or web address] Attributed Provider 09/01/21 07/03/23 Laura Mock MD, DMD [address] [address] [email or web address] Insurance Assigned Provider 05/31/23 03/01/24 Jakob Bob MD [address] [place] [address] [email or web address] Cardiology 08/22/23 Jose Cruz MD [address] [place] [address] Cardiology 08/22/23 Laura Mock MD, DMD [address] [address] [email or web address] Attributed Provider 09/01/21 07/03/23 [facility] [phone]. Consulting Provider 08/22/23 [facility] Connect 12/24/23 03/11/24 Cyril Morales [address] [place] [address] Nurse Practitioner 02/27/24 documented as of this encounter Additional Source Comments The information contained in this document represents components of the legal health record. It is not the complete legal health record.[facility]
--- OUTSIDE RECORDS SUMMARY | 2024-10-22 10:57 | XMS_ITS | Encounter Summary ---
Author Organization [facility] Address Formerly [facility] [employer] [facility] [address] [place] [address] Phone Care Team Providers Care Butcher Chicken And Fish Name Role Phone Rina Swenson MD Unavailable Laura Mock MD, DMD Primary Car e Provider Laura Mock MD, DMD Unavailable Laura Mock MD, DMD Unavailable Jakob Bob MD Unavailable [phone] Jose Cruz MD Unavailable [phone] Laura Mock MD, DMD Unavailable Pcp, Unknown Primary Care Provider UnavailLaura Ascencio MD, DMD Primary Car e Provider Pcp, Unknown Primary Care Provider UnavailNicole Arguello MD Primary Care Provide r Laura Mock MD, DMD Primary Car e Provider Encounter Details Date Type Department Care Team (Late st Contact Info) Description 05/10/2022 Anti-coag visit [facility] Anticoagulation Clinic 75 [place], [place] [phone] Melvin Stewart, [facility] [address] [place] [address] [email or web address] Social History Tobacco Use Types Packs/Day [...] Upcoming Encounters Date Type Department Care Team ([facility] st Contact Info) Description 05/24/2024 Procedure Pass [facility] Radiology [address] [place] [address] 11/24/2024 1:15 PM EDT Appointment [facility] Radiology [address] [place] [address] Jim Zacarias MD [address] [address] [email or web address] 11/24/2024 2:15 PM EDT Office Visit [facility] Thoracic Surgery 15 [facility] [address] [place] [address] Jim Zacarias MD [address] [address] [email or web address] 01/31/2025 1:00 PM EST Office Visit [facility] Cardiovascular Medicine 32 [facility], 5th Floor, [address] [place] [address] Karena Betancur MD 55 [facility] [address] [place] [address] [email or web address] Scheduled Procedures Name Priority Associated [...] documented as of this encounter Care Teams Butcher Chicken And Fish Relationship Specialty Start Date End Date Laura Mock MD, DMD [address] [address] [email or web address] du PCP - General Internal Medicine 06/04/21 11/11/23 Pcp, Unknown PCP - General 11/12/23 11/16/23 Laura Mock MD, DMD [address] [address] [email or web address] PCP - General Internal Medicine 11/17/23 12/28/23 Pcp, Unknown PCP - General 02/28/24 03/04/24 Nicole Newell MD [address] [place] [address] PCP - General 03/05/24 05/17/24 Laura Mock MD, DMD [address] [address] [email or web address] du PCP - General Internal Medicine 05/18/24 Rina Swenson MD Psychiatry 07/09/17 Laura Mock MD, DMD 1 [facility] [address] [place] [address] [email or web address] Partners Attributed Provider 09/01/21 07/03/23 Laura Mock MD, DMD [address] [address] [email or web address] Insurance Assigned Provider 05/31/23 03/01/24 Jakob Bob MD [address] [place] [address] [email or web address] Cardiology 08/22/23 Jose Cruz MD [address] [place] [address] Cardiology 08/22/23 Laura Mock MD, DMD [address] [address] [email or web address] Partners Attributed Provider 09/01/21 07/03/23 [facility] [phone]. Consulting Provider 08/22/23 [facility] Connect 12/24/23 03/11/24 Cyril Morales [address] [place] [address] Nurse Practitioner 02/27/24 documented as of this encounter Additional Source Comments The information contained in this document represents components of the legal health record. It is not the complete legal health record.[facility]
--- OUTSIDE RECORDS SUMMARY | 2024-10-22 10:57 | XMS_ITS | Encounter Summary ---
Author Organization [facility] Address [address] [place] [address] Phone Care Team Providers Care Printer Slotter Feeder Name Role Phone Rina Swenson MD Unavailable Laura Mock MD, DMD Primary Car e Provider Laura Mock MD, DMD Unavailable Laura Mock MD, DMD Unavailable Jakob Bob MD Unavailable [phone] Jose Cruz MD Unavailable [phone] Laura Mock MD, DMD Unavailable Pcp, Unknown Primary Care Provider UnavailLaura Ascencio MD, DMD Primary Car e Provider Pcp, Unknown Primary Care Provider UnavailNicole Arguello MD Primary Care Provide r Laura Mock MD, DMD Primary Car e Provider Encounter Details Date Type Department Care Team (Late st Contact Info) Description 07/18/2022 Anti-coag visit [facility] Anticoagulation Clinic [address] [place] [address] Kenyatta Gamez, PharmDanyell [email or web address] Social History Tobacco Use Types Packs/Day [...] st Contact Info) Description 05/24/2024 Procedure Pass [facility] Radiology [address] [place] [address] 11/24/2024 1:15 PM EDT Appointment [facility] Radiology [address] [place] [address] Jim Zacarias MD [address] [address] [email or web address] 11/24/2024 2:15 PM EDT Office Visit [facility] Thoracic Surgery 15 [facility] [address] [place] [address] Jim Zacarias MD [address] [address] [email or web address] 01/31/2025 1:00 PM EST Office Visit [facility] Cardiovascular Medicine 32 [facility], 5th Floor, [address] [place] [address] Karena Betancur MD [address] [place] [address] [address] [place] [address] [email or web address] Scheduled Procedures Name Priority Associated [...] documented as of this encounter Care Teams Printer Slotter Feeder Relationship Specialty Start Date End Date Laura Mock MD, DMD [address] [place] [address] [address] [email or web address] PCP - General Internal Medicine 06/04/21 11/11/23 Pcp, Unknown PCP - General 11/12/23 11/16/23 Laura Mock MD, DMD [address] [address] [email or web address] du PCP - General Internal Medicine 11/17/23 12/28/23 Pcp, Unknown PCP - General 02/28/24 03/04/24 Nicole Newell MD [address] [place] [address] PCP - General 03/05/24 05/17/24 Laura Mock MD, DMD [address] [address] [email or web address] du PCP - General Internal Medicine 05/18/24 Rina Swenson MD Psychiatry 07/09/17 Laura Mock MD, DMD 1 [facility] [address] [place] [address] [email or web address] Partners Attributed Provider 09/01/21 07/03/23 Laura Mock MD, DMD [address] [address] [email or web address] du Insurance Assigned Provider 05/31/23 03/01/24 Jakob Bob MD [address] [place] [address] [email or web address] Cardiology 08/22/23 Jose Cruz MD [address] [place] [address] [email or web address] Cardiology 08/22/23 Laura Mock MD, DMD [address] [address] [email or web address] Partners Attributed Provider 09/01/21 07/03/23 [facility] [phone]. Consulting Provider 08/22/23 [facility] Connect 12/24/23 03/11/24 Cyril Morales [address] [place] [phone] Nurse Practitioner 02/27/24 documented as of this encounter Additional Source Comments The information contained in this document represents components of the legal health record. It is not the complete legal health record.[facility]
--- OUTSIDE RECORDS SUMMARY | 2024-10-22 10:57 | XMS_ITS | Encounter Summary ---
Author Organization [facility] Address [facility]ly [facility] [employer] [address] [address] Phone Care Team Providers Care Carpenter Mate Name Role Phone Rina Swenson MD Unavailable [phone] Laura Mock MD, DMD Primary Car e Provider Laura Mock MD, DMD Unavailable Laura Mock MD, DMD Unavailable Jakob Bob MD Unavailable Jose Cruz MD Unavailable [phone] Laura Mock MD, DMD Unavailable Pcp, Unknown Primary Care Provider UnavailLaura Ascencio MD, DMD Primary Car e Provider Pcp, Unknown Primary Care Provider UnavailNicole Arguello MD Primary Care Provide r Laura Mock MD, DMD Primary Car e Provider Encounter Details Date Type Department Care Team (Late st Contact Info) Description 11/15/2022 Anti-coag visit [facility] Unknown, Unknown, Social [...] Pass [facility] Radiology 75 [place] [address] 11/24/2024 1:15 PM EDT Appointment [facility] Radiology 75 [place] [address] Jim Zacarias MD [address] [address] [email or web address] 11/24/2024 2:15 PM EDT Office Visit [facility] Thoracic Surgery 15 [facility] 204 [place] [address] Jim Zacarias MD [address] [address] [email or web address] 01/31/2025 1:00 PM EST Office Visit [facility] Cardi[facility] Medicine 32 [facility], 5th Floor, [address] [place] [address] Karena Betancur MD 55 [facility] [address] [place] [address] [email or web address] Scheduled Procedures Name Priority Associated [...] documented as of this encounter Care Teams Carpenter Mate Relationship Specialty Start Date End Date Laura Mock MD, DMD [address] [address] [email or web address] du PCP - General Internal Medicine 06/04/21 11/11/23 Pcp, Unknown PCP - General 11/12/23 11/16/23 Laura Mock MD, DMD [address] [address] [email or web address] du PCP - General Internal Medicine 11/17/23 12/28/23 Pcp, Unknown PCP - General 02/28/24 03/04/24 Nicole Newell MD [address] [place] [address] PCP - General 03/05/24 05/17/24 Laura Mock MD, DMD [address] [address] [email or web address] PCP - General Internal Medicine 05/18/24 Rina Swenson MD Psychiatry 07/09/17 Laura Mock MD, DMD [address] [address] [email or web address] du Partners Attributed Provider 09/01/21 07/03/23 Laura Mock MD, DMD [address] [address] [email or web address] du Insurance Assigned Provider 05/31/23 03/01/24 Jakob Bob MD [address] [place] [address] [email or web address] Cardiology 08/22/23 Jose Cruz MD [address] [place] [address], [address] [address] [email or web address] Cardiology 08/22/23 Laura Mock MD, DMD [address] [address] [email or web address] Partners Attributed Provider 09/01/21 07/03/23 [facility] [phone]. Consulting Provider 08/22/23 [facility] Connect 12/24/23 03/11/24 Cyril Morales [address] [place] [address] Nurse Practitioner 02/27/24 documented as of this encounter Additional Source Comments The information contained in this document represents components of the legal health record. It is not the complete legal health record.[facility]
--- OUTSIDE RECORDS SUMMARY | 2024-10-22 10:57 | XMS_ITS | Encounter Summary ---
Author Organization [facility] Address [address] [place] [address] Phone Care Team Providers Care Mosaic Worker Name Role Phone Rina Swenson MD Unavailable Laura Mock MD, DMD Primary Car e Provider Laura Mock MD, DMD Unavailable Laura Mock MD, DMD Unavailable Jakob Bob MD Unavailable [phone] Jose Cruz MD Unavailable Laura Mock MD, DMD Unavailable Pcp, Unknown Primary Care Provider UnavailLaura Ascencio MD, DMD Primary Car e Provider Pcp, Unknown Primary Care Provider UnavailNicole Arguello MD Primary Care Provide r Laura Mock MD, DMD Primary Car e Provider Encounter Details Date Type Department Care Team (Late st Contact Info) Description 12/25/2022 Transcribe Orders [facility] Department [address] [place] [address] Laura Mock MD, DMD 1 [facility] [address] [place] [address] [email or web address] Breast screening (Primary Dx) Social History Tobacco Use Types Packs/Day Years [...] st Contact Info) Description 05/24/2024 [facility] [address] [place] [address] 11/24/2024 1:15 PM EDT Appointment [facility] Radiology [address] [place] [address] Jim Zacarias MD [address] [place] [address] [email or web address] 11/24/2024 2:15 PM EDT Office [facility] Thoracic Surgery [address] [address] Jim Zacarias MD [address] [place] [address] [email or web address] 01/31/2025 1:00 PM EST Office [place] [facility] [place] 32 [facility], 5th Floor, [address] [place] [address] Karena Betancur MD 55 [facility] [address] [place] [address] [email or web address] Scheduled Procedures Name Priority Associated Diagnoses Date/Ti me COLONOSCOPY Abnormal colonoscopy documented as of this encounter Results * BI MAMMOGRAM SCREENING WITH TOMOSYNTHESIS WITH CAD (BILATERAL) (01/29/2023 3:25 PM EST) Anatomical Region Laterality Modality Breast Left, Breast Right, Breast Bilateral Bila teral Mammography 01/31/2023 9:25 AM EST Impressions 01/31/2023 9:36 AM EST No mammographic evidence of malignancy in either breast. Annual screening mammography is recommended. BI-RADS CATEGORY: 1 - Negative. The patient will be notified of the results and recommendations. Narrative 01/31/2023 9:36 AM EST BI MAMMOGRAM SCREENING WITH TOMOSYNTHESIS WITH CAD (BILATERAL) Additional patient information: Screening. COMPARISON: Comparison is made with relevant prior imaging. Breast composition: The breast tissue is heterogeneously dense, which could obscure a lesion on mammography. FINDINGS: There has been no change in the mammographic findings since previous examination. No abnormal masses, suspicious calcifications, or other significant findings are identified mammographically in either breast. Procedure Note Talha Bhatia MD - 01/31/2023 BI MAMMOGRAM SCREENING WITH TOMOSYNTHESIS WITH CAD (BILATERAL) Additional patient information: Screening. COMPARISON: Comparison is made with relevant prior imaging. Breast composition: The breast tissue is heterogeneously dense, whichcould obscure a lesion on mammography. FINDINGS: There has been no change in the mammographic findings since previousexamination. No abnormal masses, suspicious calcifications, or other significantfindings are identified mammographically in either breast. IMPRESSION: No mammographic evidence of malignancy in either breast. Annual screening mammography is recommended. BI-RADS CATEGORY: 1 - Negative. The patient will be notified of the results and recommendations. Laura Mock MD, DMD IMG MG EXAMS Final Result documented in this encounter Visit Diagnoses Diagnosis Breast screening- Primary Breast screening, unspecified Breast screening Breast screening, [...] documented as of this encounter Care Teams Mosaic Worker Relationship Specialty Start Date End Date Laura Mock MD, DMD [address] [address] [email or web address] PCP - General Internal Medicine 06/04/21 11/11/23 Pcp, Unknown PCP - General 11/12/23 11/16/23 Laura Mock MD, DMD [address] [address] [email or web address] du PCP - General Internal Medicine 11/17/23 12/28/23 Pcp, Unknown PCP - General 02/28/24 03/04/24 Nicole Newell MD [address] [place] [address] [id number] PCP - General 03/05/24 05/17/24 Laura Mock MD, DMD [address] [address] [email or web address] du PCP - General Internal Medicine 05/18/24 Rina Swenson MD Psychiatry 07/09/17 Laura Mock MD, DMD [address] [address] [email or web address] du Partners Attributed Provider 09/01/21 07/03/23 Laura Mock MD, DMD [address] [address] [email or web address] du Insurance Assigned Provider 05/31/23 03/01/24 Jakob Bob MD [address] [place] [address] [email or web address] Cardiology 08/22/23 Jose Cruz MD [address] [place] [address] [email or web address] Cardiology 08/22/23 Laura Mock MD, DMD [address] [address] [email or web address] Partners Attributed Provider 09/01/21 07/03/23 [facility] [phone]. Consulting Provider 08/22/23 [facility] Connect 12/24/23 03/11/24 Cyril Morales [address] [place] [phone] Nurse Practitioner 02/27/24 documented as of this encounter Additional Source Comments The information contained in this document represents components of the legal health record. It is not the complete legal health record.[facility]
--- OUTSIDE RECORDS SUMMARY | 2024-10-22 10:57 | XMS_ITS | Encounter Summary ---
Author Organization [facility] Address [address] [place] [address] Phone Care Team Providers Care Gas Meter Repair Supervisor Name Role Phone Artie Meehan MD Unavailable Rina Swenson MD Unavailable [phone] Laura Mock MD, DMD Primary Car e Provider Laura Mock MD, DMD Unavailable Laura Mock MD, DMD Unavailable Jakob Bob MD Unavailable [phone] Jose Cruz MD Unavailable [phone] Laura Mock MD, DMD Unavailable Pcp, Unknown Primary Care Provider UnavailLaura Ascencio MD, DMD Primary Car e Provider Pcp, Unknown Primary Care Provider UnavailNicole Arguello MD Primary Care Provide r Laura Mock MD, DMD Primary Car e Provider Encounter Details Date Type Department Care Team (Late st Contact Info) Description 09/28/2021 Telephone [facility] Psychiatric Specialties at [address] [place] [address] Tamara [place], [place] [address] [facility] [place] [address] Social History Tobacco Use Types Packs/Day Years [...] st Contact Info) Description 05/24/2024 Procedure Pass [facility] Radiology 75 [place] [address] 11/24/2024 1:15 PM EDT Appointment [facility] Radiology [address] [place] [address] Jim Zacarias MD [address] [place] [phone] [place] [address] [email or web address] 11/24/2024 2:15 PM EDT Office Visit [facility] Thoracic Surgery 15 [facility] [address] [place] [address] Jim Zacarias MD [address] [place] [phone] [place] [address] [email or web address] 01/31/2025 1:00 PM EST Office Visit [facility] Cardiovascular Medicine 32 [facility], 5th Floor, [address] [place] [address] Karena Betancur MD 55 [facility] [address] [place] [address] [email or web address] Scheduled Procedures Name Priority Associated [...] documented as of this encounter Care Teams Gas Meter Repair Supervisor Relationship Specialty Start Date End Date Laura Mock MD, DMD [address] [address] [email or web address] du PCP - General Internal Medicine 06/04/21 11/11/23 Pcp, Unknown PCP - General 11/12/23 11/16/23 Laura Mock MD, DMD [address] [address] [email or web address] PCP - General Internal Medicine 11/17/23 12/28/23 Pcp, Unknown PCP - General 02/28/24 03/04/24 [place] [address] [place] [address] PCP - General 03/05/24 05/17/24 Laura Mock MD, DMD [address] [address] [email or web address] du PCP - General Internal Medicine 05/18/24 Artie Meehan MD [address] [place] [address] [place] [place] [address] Internal Medicine 10/26/17 04/23/22 Rina Swenson MD [address] [place] [address] [place] [address] Psychiatry 07/09/17 Laura Mock MD, DMD [address] [address] [email or web address] Partners Attributed Provider 09/01/21 07/03/23 Laura Mock MD, DMD [address] [address] [email or web address] du Insurance Assigned Provider 05/31/23 03/01/24 Jakob Bob MD [address] [place] [address] [email or web address] Cardiology 08/22/23 Jose Cruz MD [address] [place] [address] [email or web address] Cardiology 08/22/23 Laura Mock MD, DMD [address] [address] [email or web address] Partners Attributed Provider 09/01/21 07/03/23 [facility] [phone]. Consulting Provider 08/22/23 [facility] Connect 12/24/23 03/11/24 Cyril Morales [address] [place] [phone] Nurse Practitioner 02/27/24 documented as of this encounter Additional Source Comments The information contained in this document represents components of the legal health record. It is not the complete legal health record.[facility]
--- OUTSIDE RECORDS SUMMARY | 2024-10-22 10:57 | XMS_ITS | Encounter Summary ---
Author Organization [facility] Address Formerly [facility] [employer] [facility] [address] [place] [address] Phone Care Team Providers Care Student Life Coordinator Name Role Phone Artie Meehan MD Primary Care Provider [phone] Artie Meehan MD Unavailable Rina Swenson MD Unavailable [phone] Laura Mock MD, DMD Primary Car e [...] Care Team (Late st Contact Info) Description 09/06/2020 Procedure Pass [facility] [address] [place] [address] Social History Tobacco Use Types Packs/Day Years [...] Upcoming Encounters Date Type Department Care Team ([facility] Contact Info) Description 05/24/2024 Procedure Pass [facility] Radiology [address] [place] [address] 11/24/2024 1:15 PM EDT Appointment [facility] Radiology [address] [place] [address] Jim Zacarias MD [id number] [place] [address] [email or web address] 11/24/2024 2:15 PM EDT Office Visit [facility] Thoracic Surgery [address] [facility] [address] [place] [address] Jim Zacarias MD [id number] [place] [address] [email or web address] 01/31/2025 1:00 PM EST Office Visit [facility] Cardiovascular Medicine 32 [facility], 5th Floor, [address] [place] [address] Karena Bteancur MD 55 [facility] [address] [place] [address] [email or web address] Scheduled Procedures Name Priority Associated [...] documented as of this encounter Care Teams Student Life Coordinator Relationship Specialty Start Date End Date Artie Meehan MD [address] [place] [address] [place] [facility] [place] [address] PCP - General Internal Medicine 10/26/17 06/03/21 Laura Mock MD, DMD [address] [address] [email or web address] PCP - General Internal Medicine 06/04/21 11/11/23 Pcp, Unknown PCP - General 11/12/23 11/16/23 Laura Mock MD, DMD [address] [address] [email or web address] PCP - General Internal Medicine 11/17/23 12/28/23 Pcp, Unknown PCP - General 02/28/24 03/04/24 [place] [address] [place] [address] PCP - General 03/05/24 05/17/24 Laura Mock MD, DMD [address] [address] [email or web address] PCP - General Internal Medicine 05/18/24 Artie Meehan MD [address] [place] [address] Dr [address] [place] [address] Internal Medicine 10/26/17 04/23/22 Rina Swenson MD [address] [place] [address] [place] [address] Psychiatry 07/09/17 Laura Mock MD, DMD [address] [address] [email or web address] Attributed Provider 09/01/21 07/03/23 Laura Mock MD, DMD [address] [address] [email or web address] Insurance Assigned Provider 05/31/23 03/01/24 Jakob Bob MD [address] [place] [address] [email or web address] Cardiology 08/22/23 Jose Cruz MD [address] [place] [address] [email or web address] Cardiology 08/22/23 Laura Mock MD, DMD [address] [address] [email or web address] Attributed Provider 09/01/21 07/03/23 [facility] [place] [phone]. Consulting Provider 08/22/23 [facility] Connect 12/24/23 03/11/24 Cyril Morales [address] [place] [address] Nurse Practitioner 02/27/24 documented as of this encounter Additional Source Comments The information contained in this document represents components of the legal health record. It is not the complete legal health record.[facility]
--- OUTSIDE RECORDS SUMMARY | 2024-10-22 10:57 | XMS_ITS | Encounter Summary ---
Author Organization [facility] Address [address] [employer] [address] [place] [address] Phone Care Team Providers Care Mechanical Research Engineer Name Role Phone Rina Swenson MD Unavailable Laura Mock MD, DMD Primary Car e Provider Laura Mock MD, DMD Unavailable Jakob Bob MD Unavailable Jose Cruz MD Unavailable Pcp, Unknown Primary Care Provider UnavailLaura Ascencio MD, DMD Primary Car e Provider Pcp, Unknown Primary Care Provider UnavailNicole Arguello MD Primary Care Provide r Laura Mock MD, DMD Primary Car e Provider Encounter Details Date Type Department Care Team (Late st Contact Info) Description 08/26/2023 Procedure Pass [facility] Endoscopy Department [address] [place] [address] Social History Tobacco Use Types Packs/Day Years [...] 05/24/2024 Procedure Pass [facility] Radiology [address] [place] [address] 11/24/2024 1:15 PM EDT Appointment [facility] Radiology [address] [place] [address] Jim Zacarias MD [address] [address] [email or web address] 11/24/2024 2:15 PM EDT Office Visit [facility] Thoracic Surgery 15 [facility] [address] [place] [address] Jim Zacarias MD [address] [address] [email or web address] 01/31/2025 1:00 PM EST Office Visit [facility] Cardiovascular Medicine 32 [facility], 5th Floor, [address] [place] [address] Karena Betancur MD 55 [facility] [address] [place] [address] [email or web address] Scheduled Procedures Name Priority [...] documented as of this encounter Care Teams Mechanical Research Engineer Relationship Specialty Start Date End Date Laura Mock MD, DMD [address] [address] [email or web address] PCP - General Internal Medicine 06/04/21 11/11/23 Pcp, Unknown PCP - General 11/12/23 11/16/23 Laura Mock MD, DMD [address] [address] [email or web address] PCP - General Internal Medicine 11/17/23 12/28/23 Pcp, Unknown PCP - General 02/28/24 03/04/24 Nicole Newell MD [address] [place] [address] PCP - General 03/05/24 05/17/24 Laura Mock MD, DMD [address] [address] [email or web address] PCP - General Internal Medicine 05/18/24 Rian Swenson MD Psychiatry 07/09/17 Laura Mock MD, DMD 1 [facility] [address] [place] [address] [email or web address] Insurance Assigned Provider 05/31/23 03/01/24 Jakob Bob MD 75 [place] [address] [email or web address] Cardiology 08/22/23 Jose Cruz MD 22 [facility], [address] [place] [address] [email or web address] Cardiology 08/22/23 [facility] [phone]. Consulting Provider 08/22/23 CAROLANN GREWAL Connect 12/24/23 03/11/24 Cyril Morales [facility] [place] [address] Nurse Practitioner 02/27/24 documented as of this encounter Additional Source Comments The information contained in this document represents components of the legal health record. It is not the complete legal health record.[facility]
--- OUTSIDE RECORDS SUMMARY | 2024-10-22 10:57 | XMS_ITS | Encounter Summary ---
Author Organization [facility] Address [facility] [employer] [address] [address] Phone Care Team Providers Care Stone Grader Name Role Phone Rina Swenson MD Unavailable [phone] Laura Mock MD, DMD Primary Car e Provider Laura Mock MD, DMD Unavailable Laura Mock MD, DMD Unavailable Jakob Bob MD Unavailable [phone] Jose Cruz MD Unavailable Laura Mock MD, DMD Unavailable Pcp, Unknown Primary Care Provider UnavailLaura Ascencio MD, DMD Primary Car e Provider Pcp, Unknown Primary Care Provider UnavailNicole Arguello MD Primary Care Provide r Laura Mock MD, DMD Primary Car e Provider Encounter Details Date Type Department Care Team (Late st Contact Info) Description 12/30/2022 Anti-coag visit VIRTUAL DEPARTMENT Unknown, Unknown, Social [...] Contact Info) Description 05/24/2024 Procedure Pass [facility] Radiology [address] [place] [address] 11/24/2024 1:15 PM EDT Appointment [facility] Radiology [address] [place] [address] Jim Zacarias MD [address] [address] [email or web address] 11/24/2024 2:15 PM EDT Office Visit [facility] Thoracic Surgery 15 [facility] [address] [place] [address] Jim Zacarias MD [address] [address] [email or web address] 01/31/2025 1:00 PM EST Office Visit [facility] Cardiovascular Medicine 32 [facility], 5th Floor, [address] [place] [address] Karena Betancur MD 55 [facility] [address] [place] [address] [email or web address] Scheduled Procedures Name Priority [...] documented as of this encounter Care Teams Stone Grader Relationship Specialty Start Date End Date Laura Mock MD, DMD [address] [address] [email or web address] PCP - General Internal Medicine 06/04/21 11/11/23 Pcp, Unknown PCP - General 11/12/23 11/16/23 Laura Mock MD, DMD [address] [address] [email or web address] PCP - General Internal Medicine 11/17/23 12/28/23 Pcp, Unknown PCP - General 02/28/24 03/04/24 Nicole Newell MD [address] [place] [address] PCP - General 03/05/24 05/17/24 Laura Mock MD, DMD [address] [address] [email or web address] PCP - General Internal Medicine 05/18/24 Rina Swenson MD Psychiatry 07/09/17 Laura Mock MD, DMD [address] [address] [email or web address] Attributed Provider 09/01/21 07/03/23 Laura Mock MD, DMD [address] [address] [email or web address] Insurance Assigned Provider 05/31/23 03/01/24 Jakob Bob MD [address] [place] [phone] [email or web address] Cardiology 08/22/23 Jose Cruz MD [address] [place] [address], [address] [address] [email or web address] Cardiology 08/22/23 Laura Mock MD, DMD [address] [address] [email or web address] Attributed Provider 09/01/21 07/03/23 [facility] [phone]. Consulting Provider 08/22/23 [facility] Connect 12/24/23 03/11/24 Cyril Morales [address] [place] [address] Nurse Practitioner 02/27/24 documented as of this encounter Additional Source Comments The information contained in this document represents components of the legal health record. It is not the complete legal health record.[facility]
--- OUTSIDE RECORDS SUMMARY | 2024-10-22 10:58 | XMS_ITS | Clinical Summary ---
Author Organization [facility] Address [address] [place] [address] Phone Care Team Providers Care Aids Nurse Name Role Phone Rina Swenson MD Unavailable Jakob Bob MD Unavailable Jose Cruz MD Unavailable Laura Mock MD, DMD Primary Car e Provider Allergies Active Allergy Reactions Criticality Noted Date Comments Azithromycin Nausea Only 08/10/2012 Azithromycin Hives Medium 10/26/2017 Latex 12/26/2018 Medications clonazePAM (KLONOPIN) 0.5 MG tablet Take 0.5 mg by mouth 2 (two) times a day. Active dextroamphetam ine-amphetamin e (ADDERALL) 30 mg Tab tablet Take 30 mg by mouth every morning. 08/12/19 24 Active lisinopril (PRINIVIL,ZEST RIL) 10 MG tabletIndicati ons:Nonrheumat ic aortic valve stenosis Take 1 tablet (10 mg total) by mouth 2 (two) times a day. 180 tablet 3 09/18/19 24 Active albuterol (ACCUNEB) 0.63 mg/3 mL nebulizer solution TAKE 3 ML BY NEBULIZATION EVERY 6 HOURS NEEDED FOR WHEEZING. BRONCHOSPASM PREVENTION, THICK TENACIOUS SECRETIONS ICD-10 J44.9 150 mL 11/28/19 24 Active warfarin (COUMADIN) 1 MG tablet TAKE 3 TABLETS BY MOUTH AT BEDTIME (EXCEPT ON FRIDAYS TAKE 4 TABS) GOAL INR OF TWO (2) TO THREE (3) 264 tablet 10/09/19 25 Active warfarin (COUMADIN) 1 MG tablet TAKE 3 TABLETS (3MG DOSE) BY MOUTH EVERY DAY AT BEDTIME EXCEPT ON FRIDAY TAKE 4 TABS (4MG DOSE) FOR A GOAL OF INR 2-3B 264 tablet 1 05/08/19 25 025 Discontinued Active Problems Problem Noted Date Diagnosed Date Acute respiratory failure with hypoxia Assessment & Plan (11/16/2023 1:06 PM EDT): Secondary to COVID-19. 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 Healthcare proxy invoked temporarily, rescinded. Resolved Son at bedside and updated Atypical lobular hyperplasia (ALH) of right chace st 08/22/2023 Hypertension 08/22/2023 Vitamin D deficiency 08/22/2023 Sessile serrated polyp of colon 04/04/2023 Overview (08/22/2023): path report in Media-in cecum rec f/u CLS 2023 as high grade dysplasia. Also adenoma in sigmoid. 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 Drew valve, 2003, Dr. Heredia Assessment & Plan (07/06/2020 4:25 PM EDT): She has a history of a [place] Drew mechanical aortic valve in 2002. She is on Coumadin for anticoagulation. She tells me that she has a meter at home and has been managing her own Coumadin for some time now. She would like to get back with the clinic to manage her INRs appropriately. She was given a the option to go to [facility] or to go back to [facility] where she has been a patient there before. She reports that her INRs have been difficult to manage and has been getting ranges of 2.2-3.7 her INR goal should be 2.5-3.5. I told her to follow-up with her primary care physician and get the referral if she needed 1. Additionally she has not had an echocardiogram since 2019 And has been lost to follow-up due to the pandemic she was last seen by Dr. Sadler in the office on 12/23/2018. I have ordered an echocardiogram to be completed as soon as an appointment is available to have follow-up with transfer of care to Dr. Cruz. ADHD (attention deficit hyperactivity disorder) 05/17/2016 Lung mass 11/30/2012 Overview (04/16/2014): Lung mass Depression 12/20/2009 Overview (04/16/2014): Depressive disorder Encounters Date Type Department Care Team Description 10/13/2024 Telephone [facility] [address] [place] [address] Laura Mock MD, DMD Colonoscopy 10/07/2024 [facility] [address], [address] [place] [address] Jose Cruz MD Medication Refill 09/17/2024 Telephone [facility] [place] [address] [place] [address] Laura Mock MD, DMD Colonoscopy 08/18/2024 Hospital Encounter [facility] Endoscopy Department [address] [place] [address] Irineo Ruff MD 07/24/2024 Refill [facility] [address], [address] [place] [address] Jose Cruz MD Medication Refill from Last 3 Months Immunizations Immunization Administration Dates Next Due INFLUENZA, SPLIT VIRUS, TRIV ALENT W/ PRESERVATIVE IM 12/21/2015,11/08/2011 Influenza High-Dose Quadriva lent Preservative Free IM 11/01/2020 Influenza High-Dose Trivalen t Preservative Free IM 11/17/2023(Deferred: Patient Refused),12/07/2018,12/18/2015, 015,11/09/2013 Influenza Quadrivalent Adjuv anted Preservative Free IM 11/01/2019 Influenza Trivalent Adjuvant ed Preservative free IM 11/25/2017 Influenza, Unspecified Formulation 11/25,12/03/2016,12/15/2015,11/02,12/26/2009 Pneumococcal conjugate PCV13 12/28/2014 Pneumococcal conjugate, unsp ecified formulation 06/09/2013 Pneumococcal polysaccharide PPSV23 06/25/2018,,01/29/2007 Zoster live 09/18/2017 Zoster recombinant 12/01/2017,09/18/2017 Family History Medical History Relation Comments Breast cancer Neg Hx Social History Tobacco Use Types Packs/Day Years Used Date Smoking Tobacco: Never Smokeless Tobacco: Never Tobacco Cessation:Counseling Given: Not Answered Alcohol Use Standard Drinks/Week Comments No 0 [...] not to disclose 2021 12:33 PM EDT Last Filed Vital Signs Vital Sign Reading Time Taken Comments Blood Pressure 126/61 12/04/2023 6:52 PM EDT Pulse 83 12/04/2023 6:51 PM EDT Temperature 36.8 C (98.3 F) 12/04/2023 6:51 PM EDT Respiratory Rate 26 12/04/2023 6:30 PM EDT Oxygen Saturation 93% 12/04/2023 6:51 PM EDT Inhaled Oxygen Concentration - - Weight 58.1 kg (128 lb) 11/21/2023 1:24 PM EDT Height 154.9 cm (5' 1 ) 11/21/2023 1:24 PM EDT Body Mass Index 24.19 11/21/2023 1:24 PM EDT Plan of Treatment Upcoming Encounters Date Type Department Care Team (Late st Contact Info) Description 05/24/2024 Procedure Pass [facility] Radiology [address] [place] [address] 11/24/2024 1:15 PM EDT Appointment [facility] [address] [place] [address] Jim Zacarias MD [address] [facility] [address] [place] [address] [email or web address] 11/24/2024 2:15 PM EDT Office Visit [facility] Thoracic Surgery [address] [facility] [address] [place] [address] Jim Zacarias MD [id number] [place] [address] [email or web address] 01/31/2025 1:00 PM EST Office Visit [facility] Cardiovascular Medicine [address] [facility], 5th Floor, [address] [place] [address] Karena Betancur MD [address] [facility] [address] [place] [address] [email or web address] Scheduled Procedures Name Priority Associated Diagnoses Date/Ti me COLONOSCOPY Abnormal colonoscopy Health Maintenance Due Date Last Done Comments Adult Td,Tdap Booster 1940 FIT TEST 10/29/1983 FOBT 10/29/1983 SIGMOIDOSCOPY 10/29/1983 VIRTUAL COLONOSCOPY 10/29/1983 RSV VACCINE (1 - 1-dose 75+ series) 2013 COLONOSCOPY 07/09/2019 07/08/2014, 06/24/2014 COLORECTAL CANCER SCREENING 05/16/2022 DEPRESSION SCREENING 10/10/2023 10/09/2022, 04/25/19 23 BLOOD PRESSURE 05/20/2024 11/21/2023 COVID-19 VACCINE ( season) 2024 02/20/2024, 11/08/2022, 11/09/2021, Additional history exists INFLUENZA VACCINE (#1) 2024 , 12/11/2022, 12/11/2022, Additional history exists CREATININE LEVEL 12/03/2024 12/04/2023, , 11/15/2023, Additional history exists POTASSIUM LEVEL 12/03/2024 12/04/2023, 10/26, 11/15/2023, Additional history exists COLOGUARD 05/15/2025 05/15/2022 ZOSTER VACCINES Completed 12/01/2017, 08/25, 09/18/2017 PNEUMOCOCCAL VACCINES (50+ years) Completed 06/25/2018, 12/28/2014, 06/09/2013, Additional history exists OSTEOPOROSIS SCREENING INITIAL (ONE-TIME) Completed 01/24/2021, 06/24/2016 HEPATITIS A VACCINES Aged Out No long er eligible based on patient's age to complete this topic HIB VACCINES Aged Out No longer eligi ble based on patient's age to complete this topic MENINGOCOCCAL VACCINES (ACWY) Aged Out No longer eligible based on patient's age to complete this topic MENINGOCOCCAL VACCINES (B) Aged Out N o longer eligible based on patient's age to complete this topic Medical Devices Implanted Type Area Batch Weigher Device Identifier Shelf Expiration Date Model / Serial / Lot St Drew Aortic Valve 23mm-04/19/2002 Implanted:04/19/19 03 (Quantity not on file) Description:Per OP report fr om 04/19/02: Pt has a 23mm St Rdew Aortic Valve replacement Per manager report: cond to 1.5T and 3T (see scanned in document)-[id number] 05/19/18 Procedures Procedure Name Priority Date/Time Associated Diagnosis Comments BASIC METABOLIC PANEL STAT 12/04/2023 1:58 PM EDT BD DXA AXIAL (SPINE) WITH HIP Routine 01/24/2021 8:57 AM EST Asymptomatic menopausal state Age-related osteoporosis without current pathological fracture HM COLONOSCOPY FOR RESULT ENTRY ONLY Routine 06/24/2014 from Last 3 Months or Most Recently Relevant to Health Maintenance Results * Basic metabolic panel (12/04/2023 1:58 PM EDT) SODIUM 139 136 - 145 mmol/L [facility] POTASSIUM 4.8 3.4 - 5.1 mmol/L [facility] CHLORIDE 100 98 - 107 mmol/L [facility] CO2 28 22 - 31 mmol/L [facility] BUN 18 6 - 23 mg/dL [facility] CREATININE 0.71 0.50 - 1.20 mg/dL [facility] GLUCOSE 94 70 - 100 mg/dL [facility] CALCIUM 9.6 8.8 - 10.7 mg/dL [facility] EGFR 83 >59 mL/min/1.7 3m2 [facility] Comment:Estimated glomerular filtration rate calculated using the CKD-EPI refit equation. ANION GAP 11 7 - 17 mmol/L [facility] Blood 12/04/2023 1:58 PM EDT 12/04/2023 2:02 PM EDT us Jim Zacarias MD LAB BLOOD ORDERABLES Final Result Performing Organization Address City/State/[facility] Co de Phone Number [facility] [address] [place] [phone] * BD DXA AXIAL (SPINE) WITH HIP [...] bone mineral density was calculated at 0.409 gm/fm6dnxg a T- score of -4 falling within [...] 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 rAtie TAVERAS BD BONE DENSITY DEXA Final Result * COLONOSCOPY FOR RESULT ENTRY ONLY (06/24/2014) [facility] Signature Colonoscopy Normal Comment:Done by Dr. Hernandez Historical Provider HEALTH MAINTENANCE Edited Result - Final from Last 3 Months or Most Recently Relevant to Health Maintenance Insurance MEDICARE PART A & B Member Subscriber Plan / Payer (Ef fective 2003-Present) Name:Anna Castillo Member ID:[id number] Relation to Subscriber:Self Name:Anna Castillo Subscriber ID:[id number] Payer ID:[id number] Group ID:Not on file Type:Medicare Address: [employer] [address] [place] [employer] MEDEX SUPPLEMENT MEDICARE PART A & B [place] [employer] MEDEX SUPPLEMENT MEDICARE PART A & B [place] [employer]) MEDEX SUPPLEMENT MEDICARE PART A & B [place] [employer]) MEDEX SUPPLEMENT MEDICARE PART A & B [place] [employer] MEDEX SUPPLEMENT MEDICARE PART A & B [place] [employer]) MEDEX SUPPLEMENT MEDICARE PART A & B [place] [employer]) MEDEX SUPPLEMENT MEDICARE PART A & B [place] [employer]) MEDEX SUPPLEMENT MEDICARE PART A & B [place] [employer]) MEDEX SUPPLEMENT Advance Directives For more information, please contact: [phone] (9AM - 5PM Nataliya/[facility], Friday-Friday) Documents on File Type Date Recorded Patient Safety Patrol Officer Expl anation Healthcare Proxy 11/18/2023 2:08 PM Healthcare Proxy 11/14/2023 7:46 AM Health care Proxy * Full Code (Latest Code Status on File) Date Activated Date Inactivated Comments 11/12/2023 10:33 PM Question Answer Comments Code Status Confirmed With: Other (specify below ) Code Discussion Comments: Presumed Care Teams Aids Nurse Relationship Specialty Start Date End Date Laura Mock MD, DMD [address] [facility] [address] [place] [address] [email or web address] PCP - General Internal Medicine 05/18/24 Rina Swenson MD Psychiatry 07/09/17 Jakob Bob MD [address] [place] [address] [email or web address] Cardiology 08/22/23 Jose Cruz MD [address] [facility], [address] [place] [address] [email or web address] Cardiology 08/22/23 [facility] [phone]. Consulting Provider 08/22/23 Cyril Morales [facility] [place] [address] Nurse Practitioner 02/27/24 Additional Source Comments The information contained in this document represents components of the legal health record. It is not the complete legal health record.[facility]
--- OUTSIDE RECORDS SUMMARY | 2024-10-22 10:58 | XMS_ITS | Encounter Summary ---
Author Organization [facility] Address [address] [place] [address] [place] [address] Phone Care Team Providers Care Grey Percher Name Role Phone Artie Meehan MD Primary [...] Care Team (Late st Contact Info) Description 05/20/2018 Transcribe Orders [facility] [address] [place] [address] Artie Meehan MD [address] [place] [address] [place] [address] 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) Social History Tobacco Use Types [...] Upcoming Encounters Date Type Department Care Team ([facility] st Contact Info) Description 05/24/2024 Procedure Pass [facility] Radiology [address] [place] [address] 11/24/2024 1:15 PM EDT Appointment [facility] Radiology [address] [place] [address] Jim Zacarias MD [address] [address] [email or web address] 11/24/2024 2:15 PM EDT Office Visit [facility] Thoracic Surgery [address] [facility] [address] [place] [address] Jim Zacarias MD [address] [address] [email or web address] 01/31/2025 1:00 PM EST Office Visit [facility] Cardiovascular Medicine [address] 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- Primary documented in this encounter Additional Health Concerns Infection Onset Date Last Indicated Resolved Time CoV-Presumed 03/23/2022 03/23/2022 04/13/2022 1:23 AM EST CoV-Risk 11/12/2023 11/12/2023 11/12/2023 5:12 PM EDT COVID-19 11/12/2023 11/12/2023 12/03/2023 1:21 AM EDT documented as of this encounter Care Teams Grey Percher Relationship Specialty Start Date End Date Artie Meehan MD [address] [place] [address] Dr [place]ior [facility] [place] [address] PCP - General Internal Medicine 10/26/17 06/03/21 Laura Mock MD, DMD [address] [address] [email or web address] PCP - General Internal Medicine 06/04/21 11/11/23 Pcp, Unknown PCP - General 11/12/23 11/16/23 Laura Mock MD, DMD [address] [address] [email or web address] PCP - General Internal Medicine 11/17/23 12/28/23 Pcp, Unknown PCP - General 02/28/24 03/04/24 [place] [address] [address] PCP - General 03/05/24 05/17/24 Laura Mock MD, DMD [address] [address] [email or web address] PCP - General Internal Medicine 05/18/24 Artie Meehan MD [address] [place] [address] [address] [place] [address] Internal Medicine 10/26/17 04/23/22 Rina Swenson MD [address] [place] [address] Dr [address] [place] [address] Psychiatry 07/09/17 Laura Mock MD, DMD [address] [address] [email or web address] Attributed Provider 09/01/21 07/03/23 Laura Mock MD, DMD [address] [address] [email or web address] Insurance Assigned Provider 05/31/23 03/01/24 Jakob Bob MD [address] [place] [address] [email or web address] Cardiology 08/22/23 Jose Cruz MD [address] [place] [address], [address] [place] [address] [email or web address] Cardiology 08/22/23 Laura Mock MD, DMD [address] [address] [email or web address] Attributed Provider 09/01/21 07/03/23 [facility] [phone]. Consulting Provider 08/22/23 [facility] 12/24/23 03/11/24 Cyril Morales [address] [place] [address] Nurse Practitioner 02/27/24 documented as of this encounter Additional Source Comments The information contained in this document represents components of the legal health record. It is not the complete legal health record.[facility]
--- OUTSIDE RECORDS SUMMARY | 2024-10-22 10:58 | XMS_ITS | Encounter Summary ---
Author Organization [facility] Address [address] ? [facility] [address] [place] [address] Phone Care Team Providers Care Agricultural Technical Officer Name Role Phone Artie Meehan MD Primary Care Provider Artie Meehan MD Unavailable Rina Swenson MD Unavailable Laura Mock MD, DMD Primary Car e Provider Laura Mock MD, DMD Unavailable Laura Mock MD, DMD Unavailable Jakob Bob MD Unavailable Jose Cruz MD Unavailable [phone] Laura Mock MD, DMD Unavailable Pcp, Unknown Primary Care Provider UnavailLaura Ascencio MD, DMD Primary Car e Provider Pcp, Unknown Primary Care Provider UnavailNicole Arguello MD Primary Care Provide r Laura Mock MD, DMD Primary Car e Provider Encounter Details Date Type Department Care Team (Late st Contact Info) Description 11/29/2017 Transcribe Orders [facility] [address] [place] [address] Artie Meehan MD [address] [place] [address] [place] [address] Hypertension, essential (Primary Dx) Social History Tobacco Use Types [...] st Contact Info) Description 05/24/2024 Procedure Pass [facility] Radiology [address] [place] [address] 11/24/2024 1:15 PM EDT Appointment [facility] Radiology [address] [place] [address] Jim Zacarias MD [address] [address] [email or web address] 11/24/2024 2:15 PM EDT Office Visit [facility] Thoracic Surgery 15 [facility] 204 [place] [address] Jim Zacarias MD [address] [address] [email or web address] 01/31/2025 1:00 PM EST Office Visit [facility] Cardiovascular Medicine 32 [facility], 5th Floor, [address] [place] [address] Karena Betancur MD [address] [address] [email or web address] Scheduled Procedures Name Priority Associated Diagnoses Date/Ti me COLONOSCOPY Abnormal colonoscopy documented as of this encounter Results * (ABNORMAL) Urinalysis (11/29/2017 10:52 AM EDT) COLOR Yellow Yellow [facility] CLARITY Clear [facility] GLUCOSE Negative Negative [facility] BILI Negative Negative [facility] KETONES Negative Negative [facility] SPECIFIC GRAVITY 1.015 1.005 - 1.030 [facility] BLOOD Trace(A) Negative [facility] PH 6.0 5.0 - 8.0 [facility] Protein-UA Negative Negative [facility] NITRITE Negative Negative [facility] Leukocyte esterase, ur Negative Negative [facility] Urine (Urine) 11/29/2017 10: 52 AM EDT 11/29/2017 10:57 AM EDT us Artie Meehan MD URINE ORDERABLES Final Re sult Performing Organization Address City/State/[facility] Co de Phone Number [address] [address] * (ABNORMAL) CBC and differential (11/29/2017 10:52 AM EDT) WBC 3.98 3.40 - 11.20 K/uL [facility] RBC 5.32(H) 3.80 - 4.80 M/uL [facility] HGB 15.7(H) 12.0 - 15.0 g/dL [facility] HCT 48.4(H) 36.0 - 46.0 % [facility] PLT 223 130 - 400 K/uL [facility] MCV 91.0 79.0 - 98.0 fL [facility] MCH 29.5 27.0 - 34.8 pg [facility] MCHC 32.4 31.5 - 36.0 g/dL [facility] RDW 13.4 10.8 - 14.6 % [facility] MPV 9.1(L) 9.4 - 12.4 fl [facility] NRBC 0.00 /100 WBCs [facility] ABSOLUTE NRBC 0.00 K/uL [facility] DIFF METHOD Auto [facility] NEUTS 58.8 45.30 - 77.70 % [facility] LYMPHS 26.6 12.30 - 39.70 % [facility] MONOS 10.8 4.10 - 12.80 % [facility] EOS 2.5 0 - 7.2 % [facility] BASOS 1.0 0 - 2.80 % [facility] Granulocytes, immature (%) 0.3 0.0 - 0.9 % [facility] ABSOLUTE NEUTS 2.34 1.40 - 7.70 K/uL [facility] ABSOLUTE LYMPHS 1.06 0.60 - 3.20 K/uL [facility] ABSOLUTE MONOS 0.43 0.11 - 0.59 K/uL [facility] ABSOLUTE EOS 0.10 0.01 - 0.50 K/uL [facility] ABSOLUTE BASOS 0.04 0.00 - 0.08 K/uL [facility] Granulocytes, immature 0.01 0.00 - 0.05 K/uL [facility] Blood 11/29/2017 10:5 2 AM EDT 11/29/2017 10:57 AM EDT us Artie Meehan MD LAB BLOOD ORDERABLES Neela milian Result [facility] [address] [place] [address] * (ABNORMAL) Lipid panel (11/29/2017 10:52 AM EDT) HDL 82 mg/dL [facility] Comment: Interpretation: Risk Level Females Decreased >55mg/dL Average 50-55 mg/dL Increased <50 mg/dL CHOLESTEROL 253(H) 0 - 240 mg/dL [facility] TRIGLYCERIDES 83 30 - 160 mg/dL [facility] LDL 154(H) 50 - 129 mg/dL [facility] Comment: LDL levels in terms of risk for coronary heart disease: <100 mg/dL: Optimal 100-129 mg/dL: Near or above optimal 130-159 mg/dL: Borderline high 160-189 mg/dL: High >190 mg/dL: Very High CARDIAC RISK RATIO 3.1(L) 3.3 - 4.4 C [facility] Blood 11/29/2017 10:5 2 AM EDT 11/29/2017 10:57 AM EDT Artie Meehan MD LAB BLOOD ORDERABLES Neela l Result Performing Organization Address City/[facility]/ZIP Co de Phone Number [address] [address] * Comprehensive metabolic panel (11/29/2017 10:52 AM EDT) SODIUM 145 133 - 146 mmol/L [facility] POTASSIUM 4.7 3.3 - 5.1 mmol/L [facility] CHLORIDE 104 96 - 108 mmol/L [facility] CO2 27 21 - 35 mmol/L [facility] BUN 17 6 - 19 mg/dL [facility] CREATININE 0.80 0.5 - 1.5 mg/dL [facility] GLUCOSE 86 70 - 99 mg/dL [facility] ALBUMIN 4.1 3.9 - 4.8 g/dL [facility] TOTAL PROTEIN 6.9 6.5 - 8.0 g/dL [facility] CALCIUM 9.2 8.4 - 10.3 mg/dL [facility] ALKALINE PHOSPHATASE 73 39 - 117 U/L [facility] TOTAL BILIRUBIN 0.5 0.0 - 1.2 mg/dL [facility] AST 19 0 - 37 U/L [facility] ALT 12 0 - 40 U/L [facility] GLOBULIN 2.8 1 - 4.8 g/dL [facility] EGFR 70 >59 mL/min/1.7 3m2 [facility] Comment:If patient is black, multiply result by 1.159. Estimated glomerular filtration rate calculated using the CKD-EPI equation. ANION GAP 19 10 - 20 mmol/L [facility] Blood 11/29/2017 10:5 2 AM EDT 11/29/2017 10:57 AM EDT Artie Meehan MD LAB BLOOD ORDERABLES Neela l Result [address] [address] documented in this encounter Visit Diagnoses Diagnosis Hypertension, essential- Primary Unspecified essential hypertension documented in this encounter Additional Health Concerns Infection Onset Date Last Indicated Resolved Time CoV-Presumed 03/23/2022 03/23/2022 04/13/2022 1:23 AM EST CoV-Risk 11/12/2023 11/12/2023 11/12/2023 5:12 PM EDT COVID-19 11/12/2023 11/12/2023 12/03/2023 1:21 AM EDT documented as of this encounter Care Teams Agricultural Technical Officer Relationship Specialty Start Date End Date Artie Meehan MD [address] [place] [address] Dr D[address] [place] [address] PCP - General Internal Medicine 10/26/17 06/03/21 Laura Mock MD, DMD [address] [address] [email or web address] PCP - General Internal Medicine 06/04/21 11/11/23 Pcp, Unknown PCP - General 11/12/23 11/16/23 Laura Mock MD, DMD [address] [address] [email or web address] PCP - General Internal Medicine 11/17/23 12/28/23 Pcp, Unknown PCP - General 02/28/24 03/04/24 Nicole Newell MD [address] [place] [address] PCP - General 03/05/24 05/17/24 Laura Mock MD, DMD [address] [address] [email or web address] PCP - General Internal Medicine 05/18/24 Artie Meehan MD [address] [place] [address] [place] [address] Internal Medicine 10/26/17 04/23/22 Rina Swenson MD [address] [place] [address] [place] [address] Psychiatry 07/09/17 Laura Mock MD, DMD [address] [address] [email or web address] [employer] Attributed Provider 09/01/21 07/03/23 Laura Mock MD, DMD [address] [address] [email or web address] du Insurance Assigned Provider 05/31/23 03/01/24 Jakob Bob MD [address] [place] [address] [email or web address] Cardiology 08/22/23 Jose Cruz MD [address] [place] [address], [address] [place] [address] [email or web address] Cardiology 08/22/23 Laura Mock MD, DMD [address] [address] [email or web address] du Partners Attributed Provider 09/01/21 07/03/23 [facility] [phone]. Consulting Provider 08/22/23 CAROLANN GREWAL Connect 12/24/23 03/11/24 Cyril Morales [address] [place] [address] Nurse Practitioner 02/27/24 documented as of this encounter Additional Source Comments The information contained in this document represents components of the legal health record. It is not the complete legal health record.[facility]
--- OUTSIDE RECORDS SUMMARY | 2024-10-22 10:58 | XMS_ITS | Encounter Summary ---
Author Organization [facility] Address [facility] [employer] [facility] [address] [place] [address] Phone Care Team Providers Care Car Inspector Name Role Phone Artie Meehan MD [...] DMD Primary Car e Provider Reason for Referral * MRI/CAT Scan - Closed Specialty Diagnoses / Procedures Referred By Bandar daugherty Referred To Contact Radiology Diagnoses Pancreatic cyst Procedures MRI Cholangiopancreatography (MRCP) Artie Meehan MD Phone: tel: fax: Referral ID Status Reason Start Date Expiration Date Visits Re quested Visits Authorized [id number] Closed 05/15/2018 05/15/2019 1 1 Encounter Details Date Type Department Care Team (Late Contact Info) Description 05/15/2018 Ancillary Orders For Login Purposes Only 15 [facility] Floor 2 [address] [place] [address] Artie Meehan MD [address] [place] [address] [place] [address] Pancreatic cyst Social History Tobacco Use Types Packs/Day Years [...] Encounters Date Type Department Care Team (Late Contact Info) Description 05/24/2024 Procedure Pass [facility] Radiology [address] [place] [address] 11/24/2024 1:15 PM EDT Appointment [facility] [address] [place] [address] Jim Zacarias MD [address] [place] [address] [email or web address] 11/24/2024 2:15 PM EDT Office Visit [facility] Thoracic Surgery 15 [facility] [address] [place] [address] Jim Zacarias MD [address] [place] [address], [place] [address] [email or web address] 01/31/2025 1:00 PM EST Office Visit [facility] Cardi[facility] Medicine 32 [facility], 5th Floor, [address] [place] [address] Karena Betancur MD 55 [facility] [address] [place] [address] [email or web address] Scheduled Procedures Name Priority Associated Diagnoses Date/Ti me COLONOSCOPY Abnormal colonoscopy documented as of this encounter Results * MRI CHOLANGIOPANCREATOGRAPHY (MRCP) WITH AND WITHOUT CONTRAST (05/22/2018 11:52 AM EDT) Anatomical Region Laterality Modality Pancreas, Biliary Magnetic Reson ance 05/22/2018 12:1 7 PM EDT Impressions 05/22/2018 1:15 PM EDT Multiple pancreatic cysts and peripancreatic cysts, largest at the head measuring up to a centimeter. As there is some suggestion that these have been present chronically based on prior imaging, it is not clear that long-term follow-up is necessary but another study in one year would be suggested. Small renal cysts. Right hepatic lobe cyst. POS [id number] Edited by: Abbie Barnett on 05/22/2018 12:52 PM Narrative 05/22/2018 1:15 PM EDT HISTORY: Pancreatic cystic lesions. Hepatic cyst. COMPARISON: Outside MRI 12/25/2017. CT with contrast 02/04/2012. TECHNIQUE: Exam performed on a 1.5 Deisi high-field MRI scanner. The following sequences were obtained after the oral administration of 40 mL water: 1mL Dotarem (brand of gadoterate meglumine) in solution: Axial T1 in and out of phase and T2, coronal T2, radial thick slab MRCP, coronal oblique thin section 3-D MRCP sequences. Axial T1 in and out of phase and T2, coronal T2, radial thick slab MRCP, coronal oblique thin section 3-D MRCP sequences were obtained. Reformatted axial and cholangiographic MIP images are available for review. 3-D rendering of the bile ducts is obtained with image post processing under concurrent supervision not on an independent workstation. FINDINGS: Biliary Tree: Left hepatic branches appear more pronounced than right but no mass or stricturing identified. No stones in the common bile duct. Gallbladder unremarkable. Pancreas: The main pancreatic duct is not dilated. Multiple cystic areas along the course of the pancreatic body and tail, particularly along the periphery. These appear to be related to side branches and not clearly main duct and again may indicate either IPMN or other benign cysts as suggested previously. The gland is difficult to separate from some of the adjacent regional structures with mild motion artifact and overall small gland but no worrisome masses are seen. Liver: Cyst noted in the dome of the right hepatic lobe. No worrisome lesions. Spleen: No finding of concern. Kidneys: Multiple small renal cysts bilaterally, more numerous on left. No worrisome masses. Adrenals: No adrenal masses. Bowel: No findings of concern on limited evaluation Nodes: No adenopathy detected. Vascular: No abdominal aortic aneurysm. Soft tissue: No ascites, inflammatory change or fluid collection. Musculoskeletal: No findings of concern appreciated. Lung bases: Opacity in the medial left base present since 2011 and by report of prior study as far back as 2009. Sequestration or other chronic abnormality are possible. There is a trace amount of adjacent pleural fluid but no atif effusion. No pericardial effusion. Pelvis: Bladder decompressed. Uterus anteverted without prominent fibroids. No adnexal masses seen on limited sequences. Procedure Note Jose Armando Goodwin MD - 05/22/2018 HISTORY: Pancreatic cystic lesions. Hepatic cyst. COMPARISON: Outside MRI 12/25/2017. CT with contrast 02/04/2012. TECHNIQUE: Exam performed on a 1.5 Deisi high-field MRI scanner. Thefollowing sequences were obtained after the oral administration of 40 mLwater: 1mL Dotarem (brand of gadoterate meglumine) in solution: Axial T1in and out of phase and T2, coronal T2, radial thick slab MRCP, coronaloblique thin section 3-D MRCP sequences. Axial T1 in and out of phase andT2, coronal T2, radial thick slab MRCP, coronal oblique thin section 3-DMRCP sequences were obtained. Reformatted axial and cholangiographic MIPimages are available for review. 3-D rendering of the bile ducts isobtained with image post processing under concurrent supervision not on anindependent workstation. FINDINGS: Biliary Tree: Left hepatic branches appear more pronounced than right butno mass or stricturing identified. No stones in the common bile duct.Gallbladder unremarkable. Pancreas: The main pancreatic duct is not dilated. Multiple cystic areasalong the course of the pancreatic body and tail, particularly along theperiphery. These appear to be related to side branches and not clearlymain duct and again may indicate either IPMN or other benign cysts assuggested previously. The gland is difficult to separate from some of theadjacent regional structures with mild motion artifact and overall smallgland but no worrisome masses are seen. Liver: Cyst noted in the dome of the right hepatic lobe. No worrisomelesions. Spleen: No finding of concern. Kidneys: Multiple small renal cysts bilaterally, more numerous on left.No worrisome masses. Adrenals: No adrenal masses. Bowel: No findings of concern on limited evaluation Nodes: No adenopathy detected. Vascular: No abdominal aortic aneurysm. Soft tissue: No ascites, inflammatory change or fluid collection. Musculoskeletal: No findings of concern appreciated. Lung bases: Opacity in the medial left base present since 2011 and byreport of prior study as far back as 2009. Sequestration or other chronicabnormality are possible. There is a trace amount of adjacent pleuralfluid but no atif effusion. No pericardial effusion. Pelvis: Bladder decompressed. Uterus anteverted without prominentfibroids. No adnexal masses seen on limited sequences. IMPRESSION: Multiple pancreatic cysts and peripancreatic cysts, largest at the headmeasuring up to a centimeter. As there is some suggestion that these havebeen present chronically based on prior imaging, it is not clear thatlong-term follow-up is necessary but another study in one year would besuggested. Small renal cysts. Right hepatic lobe cyst. POS [id number] Edited by: Abbie Barnett on 05/22/2018 12:52 PM Artie Meehan MD IMG MR ABDOMEN Final Res ult documented in this encounter Visit Diagnoses Diagnosis Pancreatic cyst Cyst and pseudocyst of pancreas Pancreatic cyst Cyst and pseudocyst of pancreas documented in this encounter Additional Health Concerns Infection Onset Date Last Indicated Resolved Time CoV-Presumed 03/23/2022 03/23/2022 04/13/2022 1:23 AM EST CoV-Risk 11/12/2023 11/12/2023 11/12/2023 5:12 PM EDT COVID-19 11/12/2023 11/12/2023 12/03/2023 1:21 AM EDT documented as of this encounter Care Teams Car Inspector Relationship Specialty Start Date End Date Artie Meehan MD [address] [place] [address] [place] [address] PCP - General Internal Medicine 10/26/17 06/03/21 Laura Mock MD, DMD [address] [address] [email or web address] PCP - General Internal Medicine 06/04/21 11/11/23 Pcp, Unknown PCP - General 11/12/23 11/16/23 Laura Mock MD, DMD [address] [address] [email or web address] PCP - General Internal Medicine 11/17/23 12/28/23 Pcp, Unknown PCP - General 02/28/24 03/04/24 [place] [address] [place] [address] PCP - General 03/05/24 05/17/24 Laura Mock MD, DMD [address] [address] [email or web address] du PCP - General Internal Medicine 05/18/24 Artie Meehan MD [address] [place] [address] [place] [address] Internal Medicine 10/26/17 04/23/22 Rina Swenson MD [address] [place] [address] Dr Dior [place] [address] Psychiatry 07/09/17 Laura Mock MD, DMD [address] [address] [email or web address] Partners Attributed Provider 09/01/21 07/03/23 Laura Mock MD, DMD [address] [address] [email or web address] du Insurance Assigned Provider 05/31/23 03/01/24 Jakob Bob MD [address] [place] [address] [email or web address] Cardiology 08/22/23 Jose Cruz MD [address] [place] [address] [email or web address] Cardiology 08/22/23 Laura Mock MD, DMD [address] [address] [email or web address] Partners Attributed Provider 09/01/21 07/03/23 [facility] [phone]. Consulting Provider 08/22/23 [facility] Connect 12/24/23 03/11/24 Cyril Morales [address] [place] [phone] Nurse Practitioner 02/27/24 documented as of this encounter Additional Source Comments The information contained in this document represents components of the legal health record. It is not the complete legal health record.[facility]
--- OUTSIDE RECORDS SUMMARY | 2024-10-22 10:58 | XMS_ITS | Encounter Summary ---
Author Organization [facility] Address [address] [employer] [facility] [address] [place] [address] Phone Care Team Providers Care Triage Assistant Name Role Phone Artie Meehan MD Primary Care Provider Artie Meehan MD Unavailable Rina Swenson MD Unavailable Laura Mock MD, DMD Primary Car e Provider Laura Mock MD, DMD Unavailable Laura Mock MD, DMD Unavailable Jakob Bob MD Unavailable Jose Cruz MD Unavailable [phone] Laura Mock MD, DMD Unavailable Pcp, Unknown Primary Care Provider UnavailLaura Ascencio MD, DMD Primary Car e Provider Pcp, Unknown Primary Care Provider UnavailNicole Arguello MD Primary Care Provide r Laura Mock MD, DMD Primary Car e Provider Encounter Details Date Type Department Care Team (Late st Contact Info) Description 11/27/2018 Transcribe Orders [facility] [address] [place] [address] Artie Meehan MD [address] [place] [address] [place] [address] Social History Tobacco Use Types Packs/Day Years [...] st Contact Info) Description 05/24/2024 Procedure Pass [facility] Radiology [address] [place] [address] 11/24/2024 1:15 PM EDT Appointment [facility] Radiology [address] [place] [address] Jim Zacarias MD [address] [address] [email or web address] 11/24/2024 2:15 PM EDT Office Visit [facility] Thoracic Surgery 15 [facility] 204 [place] [address] Jim Zacarias MD [address] [address] [email or web address] 01/31/2025 1:00 PM EST Office Visit [facility] Cardiovascular Medicine 32 [facility], 5th Floor, [address] [place] [address] Karena Betancur MD 55 [facility] [address] [place] [address] [email or web address] Scheduled Procedures Name Priority Associated [...] documented as of this encounter Care Teams Triage Assistant Relationship Specialty Start Date End Date Artie Meehan MD [address] [place] [address] Dr Dior [facility] [place] [address] PCP - General Internal Medicine 10/26/17 06/03/21 Laura Mock MD, DMD [address] [address] [email or web address] PCP - General Internal Medicine 06/04/21 11/11/23 Pcp, Unknown PCP - General 11/12/23 11/16/23 Laura Mock MD, DMD [address] [address] [email or web address] PCP - General Internal Medicine 11/17/23 12/28/23 Pcp, Unknown PCP - General 02/28/24 03/04/24 [place] [address] [place] [address] PCP - General 03/05/24 05/17/24 Laura Mock MD, DMD [address] [address] [email or web address] PCP - General Internal Medicine 05/18/24 Artie Meehan MD [address] [place] [address] Dr Dior Elisabeth [place] [address] Internal Medicine 10/26/17 04/23/22 Rina Swenson MD [address] [place] [address] [place] [address] Psychiatry 07/09/17 Laura Mock MD, DMD [address] [address] [email or web address] [employer] Attributed Provider 09/01/21 07/03/23 Laura Mock MD, DMD [address] [address] [email or web address] du Insurance Assigned Provider 05/31/23 03/01/24 Jakob Bob MD [address] [place] [address] [email or web address] Cardiology 08/22/23 Jose Cruz MD [address] [place] [address] Cardiology 08/22/23 Laura Mock MD, DMD [address] [address] [email or web address] Attributed Provider 09/01/21 07/03/23 [facility] [phone]. Consulting Provider 08/22/23 [facility] Connect 12/24/23 03/11/24 Cyril Morales [address] [place] [address] Nurse Practitioner 02/27/24 documented as of this encounter Additional Source Comments The information contained in this document represents components of the legal health record. It is not the complete legal health record.[facility]
--- OUTSIDE RECORDS SUMMARY | 2024-10-22 10:58 | XMS_ITS | Encounter Summary ---
Author Organization [facility] Address [facility] [employer] [address] [address] Phone Care Team Providers Care Qa Software Tester Name Role Phone Rina Swenson MD Unavailable Laura Mock MD, DMD Primary Car e Provider Laura Mock MD, DMD Unavailable Laura Mock MD, DMD Unavailable Jakob Bob MD Unavailable Jose Cruz MD Unavailable [phone] Laura Mock MD, DMD Unavailable Pcp, Unknown Primary Care Provider UnavailLaura Ascencio MD, DMD Primary Car e Provider Pcp, Unknown Primary Care Provider UnavailNicole Arguello MD Primary Care Provide r Laura Mock MD, DMD Primary Car e Provider Encounter Details Date Type Department Care Team (Late st Contact Info) Description 05/13/2023 Anti-coag visit VIRTUAL DEPARTMENT Unknown, Unknown, Social [...] st Contact Info) Description 05/24/2024 Procedure Pass [facility] Radiology [address] [place] [address] 11/24/2024 1:15 PM EDT Appointment [facility] Radiology 75 [place] [address] Jim Zacarias MD [address] [address] [email or web address] 11/24/2024 2:15 PM EDT Office Visit [facility] Thoracic Surgery 15 [facility] 204 [place] [address] Jim Zacarias MD [address] [address] [email or web address] 01/31/2025 1:00 PM EST Office Visit [facility] Cardiovascular Medicine 32 [facility], 5th Floor, [address] [place] [address] Karena Betancur MD 55 [facility] [address] [place] [address] [email or web address] Scheduled Procedures Name Priority [...] documented as of this encounter Care Teams Qa Software Tester Relationship Specialty Start Date End Date Laura Mock MD, DMD [address] [address] [email or web address] PCP - General Internal Medicine 06/04/21 11/11/23 Pcp, Unknown PCP - General 11/12/23 11/16/23 Laura Mock MD, DMD [address] [address] [email or web address] du PCP - General Internal Medicine 11/17/23 12/28/23 Pcp, Unknown PCP - General 02/28/24 03/04/24 Nicole Newell MD [address] [place] [address] PCP - General 03/05/24 05/17/24 Laura Mock MD, DMD [address] [address] [email or web address] PCP - General Internal Medicine 05/18/24 Rina Swenson MD Psychiatry 07/09/17 Laura Mock MD, DMD [address] [address] [email or web address] Partners Attributed Provider 09/01/21 07/03/23 Laura Mock MD, DMD [address] [address] [email or web address] Insurance Assigned Provider 05/31/23 03/01/24 Jakob Bob MD [address] [place] [address] [email or web address] Cardiology 08/22/23 Jose Cruz MD [address] [place] [address], [address] [address] [email or web address] Cardiology 08/22/23 Laura Mock MD, DMD [address] [address] [email or web address] Partners Attributed Provider 09/01/21 07/03/23 [facility] [phone]. Consulting Provider 08/22/23 [facility] Connect 12/24/23 03/11/24 Cyril Morales [address] [place] [address] Nurse Practitioner 02/27/24 documented as of this encounter Additional Source Comments The information contained in this document represents components of the legal health record. It is not the complete legal health record.[facility]
--- OUTSIDE RECORDS SUMMARY | 2024-10-22 10:58 | XMS_ITS | Encounter Summary ---
Author Organization [facility] Address [facility] [address] [address] Phone Care Team Providers Care Loading Checker Name Role Phone Rina Swenson MD Unavailable Laura Mock MD, DMD Primary Car e Provider Laura Mock MD, DMD Unavailable Laura Mock MD, DMD Unavailable Jakob Bob MD Unavailable [phone] Jose Cruz MD Unavailable Laura Mock MD, DMD Unavailable Pcp, Unknown Primary Care Provider UnavailLaura Ascencio MD, DMD Primary Car e Provider Pcp, Unknown Primary Care Provider UnavailNicole Arguello MD Primary Care Provide r Laura Mock MD, DMD Primary Car e Provider Encounter Details Date Type Department Care Team (Late st Contact Info) Description 05/03/2022 Anti-coag visit VIRTUAL DEPARTMENT Unknown, Unknown, Social [...] st Contact Info) Description 05/24/2024 Procedure Pass [facility] Radiology 75 [place] [address] 11/24/2024 1:15 PM EDT Appointment [facility] Radiology 75 [place] [address] Jim Zacarias MD [address] [address] [email or web address] 11/24/2024 2:15 PM EDT Office Visit [facility] Thoracic Surgery [address] [address] Jim Zacarias MD [address] [address] [email or web address] 01/31/2025 1:00 PM EST Office Visit [facility] Cardiovascular Medicine 32 [facility], 5th Floor, [address] [place] [address] Karena Betancur MD [address] [address] [email or web address] Scheduled Procedures Name Priority Associated Diagnoses [...] documented as of this encounter Care Teams Loading Checker Relationship Specialty Start Date End Date Laura Mock MD, DMD [address] [address] [email or web address] PCP - General Internal Medicine 06/04/21 11/11/23 Pcp, Unknown PCP - General 11/12/23 11/16/23 Laura Mock MD, DMD [address] [address] [email or web address] du PCP - General Internal Medicine 11/17/23 12/28/23 Pcp, Unknown PCP - General 02/28/24 03/04/24 Nicole Newell MD [address] [place] [address] PCP - General 03/05/24 05/17/24 Laura Mock MD, DMD [address] [address] [email or web address] PCP - General Internal Medicine 05/18/24 Rina Swenson MD Psychiatry 07/09/17 Laura Mock MD, DMD [address] [address] [email or web address] du Partners Attributed Provider 09/01/21 07/03/23 Laura Mock MD, DMD 1 [facility] [address] [place] [address] [email or web address] du Insurance Assigned Provider 05/31/23 03/01/24 Jakob Bob MD [address] [place] [address] [email or web address] Cardiology 08/22/23 Jose Cruz MD [address] [place] [address], [facility] [address] [place] [address] [email or web address] Cardiology 08/22/23 Laura Mock MD, DMD [address] [address] [email or web address] Partners Attributed Provider 09/01/21 07/03/23 [facility] [phone]. Consulting Provider 08/22/23 [facility] Connect 12/24/23 03/11/24 Cyril Moarles [facility] [place] [address] Nurse Practitioner 02/27/24 documented as of this encounter Additional Source Comments The information contained in this document represents components of the legal health record. It is not the complete legal health record.[facility]
--- OUTSIDE RECORDS SUMMARY | 2024-10-22 10:58 | XMS_ITS | Encounter Summary ---
Author Organization [facility] Address [facility] [employer] [facility] [address] [place] [address] Phone Care Team Providers Care Highway Patrol Pilot Name Role Phone Artie Meehan MD Primary Care Provider Artie Meehan MD Unavailable Rina Swenson MD Unavailable Laura Mock MD, DMD Primary Car e Provider Laura Mock MD, DMD Unavailable Laura Mock MD, DMD Unavailable Jakob Bob MD Unavailable Jose Cruz MD Unavailable [phone] Laura Mock MD, DMD Unavailable Pcp, Unknown Primary Care Provider UnavailLaura Ascencio MD, DMD Primary Car e Provider Pcp, Unknown Primary Care Provider UnavailNicole Arguello MD Primary Care Provide r Laura Mock MD, DMD Primary Car e Provider Encounter Details Date Type Department Care Team (Late st Contact Info) Description 10/26/2017 Procedure Pass [facility] 30 [place] [address] Social History Tobacco Use Types Packs/Day Years [...] Upcoming Encounters Date Type Department Care Team ([facility] Contact Info) Description 05/24/2024 Procedure Pass [facility] Radiology 75 [place] [address] 11/24/2024 1:15 PM EDT Appointment [facility] Radiology [address] [place] [address] Jim Zacarias MD [id number] [place] [address] [email or web address] 11/24/2024 2:15 PM EDT Office Visit [facility] Thoracic Surgery 15 [facility] 204 [place] [address] Jim Zacarias MD [phone] [place] [address] [email or web address] 01/31/2025 1:00 PM EST Office Visit [facility] [place] Cardiovascular Medicine 32 [facility], 5th Floor, [address] [place] [address] Karena Betancur MD 55 [facility] 5[address] [place] [address] [email or web address] Scheduled Procedures Name Priority Associated [...] documented as of this encounter Care Teams Highway Patrol Pilot Relationship Specialty Start Date End Date Artie Meehan MD [address] [place] [address] Dr [address] [place] [address] PCP - General Internal Medicine 10/26/17 06/03/21 Laura Mock MD, DMD [address] [address] [email or web address] du PCP - General Internal Medicine 06/04/21 11/11/23 Pcp, Unknown PCP - General 11/12/23 11/16/23 Laura Mock MD, DMD [address] [address] [email or web address] du PCP - General Internal Medicine 11/17/23 12/28/23 Pcp, Unknown PCP - General 02/28/24 03/04/24 [place] [address] [address] PCP - General 03/05/24 05/17/24 Laura Mock MD, DMD [address] [address] [email or web address] PCP - General Internal Medicine 05/18/24 Artie Meehan MD [address] [place] [address] Dr Dior Elisabeth [place] [address] Internal Medicine 10/26/17 04/23/22 Rina Swenson MD [address] [place] [address] [place] [address] Psychiatry 07/09/17 Laura Mock MD, DMD [address] [address] [email or web address] Attributed Provider 09/01/21 07/03/23 Laura Mock MD, DMD [address] [address] [email or web address] Insurance Assigned Provider 05/31/23 03/01/24 Jakob Bob MD [address] [place] [address] [email or web address] Cardiology 08/22/23 Jose Cruz MD [address] [place] [address], [address] [place] [address] [email or web address] Cardiology 08/22/23 Laura Mock MD, DMD [address] [address] [email or web address] Partners Attributed Provider 09/01/21 07/03/23 [facility] [phone]. Consulting Provider 08/22/23 [facility] Connect 12/24/23 03/11/24 Cyril Morales [address] [place] [address] Nurse Practitioner 02/27/24 documented as of this encounter Additional Source Comments The information contained in this document represents components of the legal health record. It is not the complete legal health record.[facility]
--- OUTSIDE RECORDS SUMMARY | 2024-10-22 10:58 | XMS_ITS | Encounter Summary ---
Author Organization [facility] Address [address] [employer] [facility] [address] [place] [address] Phone Care Team Providers Care Route Sales Representative Name Role Phone Rina Swenson MD Unavailable Laura Mock MD, DMD Primary Car e Provider Laura Mock MD, DMD Unavailable Laura Mock MD, DMD Unavailable Jakob Bob MD Unavailable [phone] Jose Cruz MD Unavailable Laura Mock MD, DMD Unavailable Pcp, Unknown Primary Care Provider UnavailLaura sAcencio MD, DMD Primary Car e Provider Pcp, Unknown Primary Care Provider UnavailNicole Arguello MD Primary Care Provide r Laura Mock MD, DMD Primary Car e Provider Encounter Details Date Type Department Care Team (Late st Contact Info) Description 10/02/2022 Procedure Pass [facility] 75 [place] [address] Social History Tobacco Use Types Packs/Day Years [...] st Contact Info) Description 05/24/2024 Procedure Pass [facility] [address] [place] [address] 11/24/2024 1:15 PM EDT Appointment [facility] Radiology [address] [place] [address] Jim Zacarias MD [address] [address] [email or web address] 11/24/2024 2:15 PM EDT Office Visit [facility] Thoracic Surgery 15 [facility] 204 [place] [address] Jim Zacarias MD [address] [address] [email or web address] 01/31/2025 1:00 PM EST Office [facility] Cardiovascular Medicine 32 [facility], 5th Floor, [address] [place] [address] Karena Betancur MD [address] [address] [email or web address] Scheduled Procedures Name Priority Associated Diagnoses [...] documented as of this encounter Care Teams Route Sales Representative Relationship Specialty Start Date End Date Laura Mock MD, DMD [address] [address] [email or web address] PCP - General Internal Medicine 06/04/21 11/11/23 Pcp, Unknown PCP - General 11/12/23 11/16/23 Laura Mock MD, DMD [address] [address] [email or web address] PCP - General Internal Medicine 11/17/23 12/28/23 Pcp, Unknown PCP - General 02/28/24 03/04/24 [place] [address] [address] PCP - General 03/05/24 05/17/24 Laura Mock MD, DMD [address] [address] [email or web address] PCP - General Internal Medicine 05/18/24 Rina Swenson MD Psychiatry 07/09/17 Laura Mock MD, DMD [address] [address] [email or web address] Partners Attributed Provider 09/01/21 07/03/23 Laura Mock MD, DMD [address] [address] [email or web address] Insurance Assigned Provider 05/31/23 03/01/24 Jakob Bob MD [address] [place] [address] [email or web address] Cardiology 08/22/23 Jose Cruz MD [address] [place] [address] [email or web address] Cardiology 08/22/23 Laura Mock MD, DMD [address] [address] [email or web address] Partners Attributed Provider 09/01/21 07/03/23 [facility] [phone]. Consulting Provider 08/22/23 [facility] Connect 12/24/23 03/11/24 Cyril Morales [address] [place] [phone] Nurse Practitioner 02/27/24 documented as of this encounter Additional Source Comments The information contained in this document represents components of the legal health record. It is not the complete legal health record.[facility]
--- OUTSIDE RECORDS SUMMARY | 2024-10-22 10:58 | XMS_ITS | Encounter Summary ---
Author Organization [facility] Address [address] [address] Phone Care Team Providers Care Personnel Manager Name Role Phone Rina Swenson MD Unavailable [...] Care Team (Late st Contact Info) Description 10/06/[address] [facility] 75 [place] [address] Abbie Prieto, PharmD [address] [address] [email or web address] Social History Tobacco Use Types Packs/Day Years [...] st Contact Info) Description 05/24/2024 Procedure Pass [facility] [address] [place] [address] 11/24/2024 1:15 PM EDT Appointment [facility] Radiology [address] [place] [address] Jim Zacarias MD [address] [place] [address] [email or web address] 11/24/2024 2:15 PM EDT Office Visit [facility] Thoracic Surgery 15 [facility] 204 [place] [address] Jim Zacarias MD [address] [address] [email or web address] 01/31/2025 1:00 PM EST Office Visit [facility] [place] Cardiovascular Medicine [address] [place] [address], 5th Floor, [address] [place] [address] Karena Betancur MD [address] [place] [address] [email or web address] Scheduled Procedures Name Priority Associated [...] documented as of this encounter Care Teams Personnel Manager Relationship Specialty Start Date End Date Laura Mock MD, DMD [address] [address] [email or web address] PCP - General Internal Medicine 06/04/21 11/11/23 Pcp, Unknown PCP - General 11/12/23 11/16/23 Laura Mock MD, DMD [address] [address] [email or web address] du PCP - General Internal Medicine 11/17/23 12/28/23 Pcp, Unknown PCP - General 02/28/24 03/04/24 [place] [address] [address] PCP - General 03/05/24 05/17/24 Laura Mock MD, DMD [address] [address] [email or web address] du PCP - General Internal Medicine 05/18/24 Rina Swenson MD Psychiatry 07/09/17 Laura Mock MD, DMD [address] [address] [email or web address] Attributed Provider 09/01/21 07/03/23 Laura Mock MD, DMD [address] [address] [email or web address] du Insurance Assigned Provider 05/31/23 03/01/24 Jakob Bob MD [address] [place] [address] [email or web address] Cardiology 08/22/23 Jose Cruz MD [address] [place] [address] Cardiology 08/22/23 Laura Mock MD, DMD [address] [address] [email or web address] Partners Attributed Provider 09/01/21 07/03/23 [facility] [phone]. Consulting Provider 08/22/23 [facility] Connect 12/24/23 03/11/24 Cyril Morales [address] [place] [address] Nurse Practitioner 02/27/24 documented as of this encounter Additional Source Comments The information contained in this document represents components of the legal health record. It is not the complete legal health record.[facility]
--- OUTSIDE RECORDS SUMMARY | 2024-10-22 10:58 | XMS_ITS | Encounter Summary ---
Author Organization [facility] Address [address] [place] [address] Phone Care Team Providers Care Bottle Hop Name Role Phone rAtie Meehan MD Unavailable Rina Swenson MD Unavailable Laura Mock MD, DMD Primary Car e Provider Laura Mock MD, DMD Unavailable Laura Mock MD, DMD Unavailable Jakob Bob MD Unavailable [phone] Jose Cruz MD Unavailable [phone] Laura Mock MD, DMD Unavailable Pcp, Unknown Primary Care Provider UnavailLaura Ascencio MD, DMD Primary Car e Provider Pcp, Unknown Primary Care Provider UnavailNicole Arguello MD Primary Care Provide r Laura Mock MD, DMD Primary Car e Provider Encounter Details Date Type Department Care Team (Late st Contact Info) Description 09/17/2021 Procedure Pass [facility] [place] [place] [address] Social History Tobacco Use Types Packs/Day Years [...] st Contact Info) Description 05/24/2024 Procedure Pass [facility] Radiology [address] [place] [address] 11/24/2024 1:15 PM EDT Appointment [facility] Radiology [address] [place] [address] Jim Zacarias MD [address] [address] [email or web address] 11/24/2024 2:15 PM EDT Office Visit [facility] Thoracic Surgery 15 [facility] 204 [place] [address] Jim Zacarias MD [address] [address] [email or web address] 01/31/2025 1:00 PM EST Office Visit [facility] Cardiovascular Medicine 32 [facility], 5th Floor, [address] [place] [address] Karena Betacnur MD 55 [facility] 5B [place] [address] [email or web address] Scheduled Procedures Name Priority Associated [...] documented as of this encounter Care Teams Bottle Hop Relationship Specialty Start Date End Date Laura Mock MD, DMD 1 [facility] [address] [place] [address] [email or web address] PCP - General Internal Medicine 06/04/21 11/11/23 Pcp, Unknown PCP - General 11/12/23 11/16/23 Laura Mock MD, DMD [address] [address] [email or web address] PCP - General Internal Medicine 11/17/23 12/28/23 Pcp, Unknown PCP - General 02/28/24 03/04/24 [place] [address] [address] PCP - General 03/05/24 05/17/24 Laura Mock MD, DMD 1 [facility] [address] [place] [address] [email or web address] PCP - General Internal Medicine 05/18/24 Artie Meehan MD [address] [place] [address] Dr [place] [facility] [place] [address] Internal Medicine 10/26/17 04/23/22 Rina Swenson MD [address] [place] [address] [place] [address] Psychiatry 07/09/17 Laura Mock MD, DMD 1 [facility] [address] [place] [address] [email or web address] du Partners Attributed Provider 09/01/21 07/03/23 Laura Mock MD, DMD [address] [address] [email or web address] du Insurance Assigned Provider 05/31/23 03/01/24 Jakob Bob MD [address] [place] [address] [email or web address] Cardiology 08/22/23 Jose Cruz MD [address] [place] [address] [email or web address] Cardiology 08/22/23 Laura Mock MD, DMD [address] [address] [email or web address] Partners Attributed Provider 09/01/21 07/03/23 [facility] [phone]. Consulting Provider 08/22/23 [facility] Connect 12/24/23 03/11/24 Cyril Morales [address] [place] [phone] Nurse Practitioner 02/27/24 documented as of this encounter Additional Source Comments The information contained in this document represents components of the legal health record. It is not the complete legal health record.[facility]
--- OUTSIDE RECORDS SUMMARY | 2024-10-22 10:58 | XMS_ITS | Encounter Summary ---
Author Organization [facility] Address Critical access hospital [employer] [address] [address] Phone Care Team Providers Care Package Reinspector Name Role Phone Tasha Greenwood MD Primary Care Provider [phone] Artie Meehan MD Primary Care Provider [phone] Artie Meehan MD Primary Care Provider [phone] Artie Meehan MD Unavailable Meera Campos Unavailable [phone] Amber Raygoza NP Unavailable [phone] Elvis Rendon MD Unavailable [phone] Modesta Rivera MD Unavailable [phone] Carlin Newman MD Unavailable [phone] Patti Bello MD Unavailable [phone] Lucila Melendez MD Unavailable [phone] Juan J Avitia DO Unavailable [phone] Tasha Greenwood MD Unavailable Mekhi Hernandez MD Unavailable [phone] Leora Fish-C Unavailable [phone] Angle Klein MD Unavailable [phone] Fredy Bruno MD Unavailable Sejal Dick MD Unavailable Cadence Rouse MD Unavailable [phone] Baljinder Hinson MD Unavailable [phone] Rina Swenson MD Unavailable [phone] Laura Mock MD, DMD Primary Car e [...] Care Team (Late st Contact Info) Description 06/12/2017 Procedure Pass [facility] 75 [place] [address] Social History Tobacco Use Types Packs/Day Years Used Date Smoking Tobacco: Never Comments Unknown Sex and Gender Information Value Date Recorded Sex Assigned at Female 10/08/2017 9:33 PM EDT Legal Sex Female 6:34 PM EST Gender Identity Female 10/08/2017 9:33 PM EDT Sexual Orientation Choose not to disclose 2021 12:33 PM EDT documented as of this encounter Plan of Treatment Upcoming Encounters Date Type Department Care Team (Late st Contact Info) Description 05/24/2024 Procedure Pass [facility] 75 [place] [address] 11/24/2024 1:15 PM EDT Appointment [facility] 75 [place] [address] Jim Zacarias MD [address] [address] [email or web address] 11/24/2024 2:15 PM EDT Office Visit [facility] Thoracic Surgery 15 [facility] 204 [place] [address] Jim Zacarias MD [address] [address] [email or web address] 01/31/2025 1:00 PM EST Office Visit [facility] Cardiovascular Medicine 32 [facility], 5th Floor, [address] [place] [address] Karena Betancur MD [address] [address] [email or web address] Scheduled Procedures Name Priority Associated [...] documented as of this encounter Care Teams Package Reinspector Relationship Specialty Start Date End Date Tasha Greenwood MD [address] [place] [address], 2nd [place] [address] [email or web address] PCP - General 08/24/13 07/08/17 Artie Meehan MD [address] [place] [address] [place] [address] PCP - General Internal Medicine 07/09/17 10/25/17 Artie Meehan MD [address] [place] [address] [place] [address] PCP - General Internal Medicine 10/26/17 06/03/21 Laura Mock MD, DMD 1 [facility] [address] [place] [address] [email or web address] PCP - General Internal Medicine 06/04/21 11/11/23 Pcp, Unknown PCP - General 11/12/23 11/16/23 Laura Mock MD, DMD [address] [address] [email or web address] PCP - General Internal Medicine 11/17/23 12/28/23 Pcp, Unknown PCP - General 02/28/24 03/04/24 [place] [address] [address] PCP - General 03/05/24 05/17/24 Laura Mock MD, DMD 1 [facility] [address] [place] [address] [email or web address] PCP - General Internal Medicine 05/18/24 Artie Meehan MD [address] [place] [address] [place] [address] Internal Medicine 10/26/17 04/23/22 Meera Campos [place] [address] [address] Historical LMR Provider 12/14/16 Amber Raygzoa NP [address] [place] [address] [address] [place] [address] Historical LMR Provider 12/14/16 Elvis Rendon MD [address] [place] [address], [address] [place] [address] Historical LMR Provider 12/14/16 8 Modesta Rivera MD [address] [place] [address], [address] [place] [address] Historical LMR Provider 12/14/16 Carlin Newman MD [address] [place] [address] 2nd [place] [address] Historical LMR Provider 12/14/16 Patti Bello MD [address] [place] [address], 2nd [place] [address] Historical LMR Provider 12/14/16 07/08/17 Lucila Melendez MD [address] [place] [address], [address] [place] [address] [email or web address] Historical LMR Provider 12/14/16 07/08/17 Juan J Avitia DO [address] [place] [address] Orthopedics & Sports [facility], [place] [address] [email or web address] Historical LMR Provider 12/14/16 07/08/17 Tasha [place] MD [address] [place] [address], 2nd [place] [address] [email or web address] Historical LMR Provider 12/14/16 07/08/17 Mekhi Hernandez MD [address] [place], [place] [address] [address] [email or web address] Historical LMR Provider 12/14/16 07/08/17 Leora Fish PA-C [address] [place] [address] [facility] [place] [address] [email or web address] Historical LMR Provider 12/14/16 Angel Bueno MD [address] [place] [address], [address] [place] [address] Historical LMR Provider 12/14/16 Fredy Bruno MD [address] [place] [address] Historical LMR Provider 12/14/16 Sejal Dick MD [address] [place] [address] Orthopedics & Sports [facility], [facility] [place] [address] Historical LMR Provider 12/14/1607/08 Cadence Rouse MD [address] [place] [address] Historical LMR Provider 12/14/16 Baljinder Hinson MD 61 [place] [address] Historical LMR Provider 12/14/16 Rina Swenson MD 61 [place] [address] Psychiatry 07/09/17 Laura Mock MD, DMD [address] [address] [email or web address] [employer] Attributed Provider 09/01/21 07/03/23 Laura Mock MD, DMD [address] [address] [email or web address] Insurance Assigned Provider 05/31/23 03/01/24 Jakob Bob MD [address] [place] [address] [email or web address] Cardiology 08/22/23 Jose Crzu MD [address] [place] [address] [email or web address] Cardiology 08/22/23 Laura Mock MD, DMD 1 [address] [place] [address] [email or web address] Attributed Provider 09/01/21 07/03/23 [facility] [phone]. Consulting Provider 08/22/23 [facility] Connect 12/24/23 03/11/24 Cyril Morales [address] [place] [address] Nurse Practitioner 02/27/24 documented as of this encounter Additional Source Comments The information contained in this document represents components of the legal health record. It is not the complete legal health record.[facility]
--- OUTSIDE RECORDS SUMMARY | 2024-10-22 10:58 | XMS_ITS | Encounter Summary ---
Author Organization [facility] Address [address] [facility] [address] [place] [address] Phone Care Team Providers Care Credentials Specialist Name Role Phone Artie Meehan MD Primary Care Provider Artie Meehan MD Unavailable Rina Swenson MD Unavailable Laura Mock MD, DMD Primary Car e Provider Laura Mock MD, DMD Unavailable Laura Mock MD, DMD Unavailable Jakob Bob MD Unavailable [phone] Jose Cruz MD Unavailable [phone] Laura Mock MD, DMD Unavailable Pcp, Unknown Primary Care Provider UnavailLaura Ascencio MD, DMD Primary Car e Provider Pcp, Unknown Primary Care Provider UnavailNicole Arguello MD Primary Care Provide r Laura Mock MD, DMD Primary Car e Provider Encounter Details Date Type Department Care Team (Late st Contact Info) Description 05/23/2018 Transcribe Orders [facility] [address] [place] [address] Artie Meehan MD [address] [place] [address] [place] [address] 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 Social History Tobacco Use Types Packs/Day Years [...] st Contact Info) Description 05/24/2024 Procedure Pass [facility] Radiology 75 [place] [address] 11/24/2024 1:15 PM EDT Appointment [facility] 75 [place] [address] Jim Zacarias MD [address] [address] [email or web address] 11/24/2024 2:15 PM EDT Office Visit [facility] Thoracic Surgery 15 [facility] [address] [place] [address] Jim Zacarias MD [address] [address] [email or web address] 01/31/2025 1:00 PM EST Office Visit [facility] Cardiovascular Medicine 32 [facility], 5th Floor, [address] [place] [address] Karena Betancur MD 55 [facility] [address] [place] [address] [email or web address] Scheduled Procedures Name Priority Associated Diagnoses Date/Ti me COLONOSCOPY Abnormal colonoscopy documented as of this encounter Procedures Procedure Name Priority Date/Time Associated Diagnosis Comments PT-INR STAT 05/23/2018 11:36 AM EDT 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 documented in this encounter Results * (ABNORMAL) PT-INR (05/23/2018 11:36 AM EDT) PT 14.8(H) 10.2 - 12.9 sec [facility] INR 1.3(H) 0.9 - 1.1 [facility] Comment:Therapeutic range fo r oral Vitamin K antagonists: 2.0-3.5 Blood 05/23/2018 11:3 6 AM EDT 05/23/2018 11:39 AM EDT us Artie Meehan MD LAB BLOOD ORDERABLES Neela l Result Performing Organization Address City/State/[facility] Co de Phone Number [address] [address] documented in this encounter Visit Diagnoses Diagnosis 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 documented in this encounter Additional Health Concerns Infection Onset Date Last Indicated Resolved Time CoV-Presumed 03/23/2022 03/23/2022 04/13/2022 1:23 AM EST CoV-Risk 11/12/2023 11/12/2023 11/12/2023 5:12 PM EDT COVID-19 11/12/2023 11/12/2023 12/03/2023 1:21 AM EDT documented as of this encounter Care Teams Credentials Specialist Relationship Specialty Start Date End Date Artie Meehan MD [address] [place] [address] [place] [address] PCP - General Internal Medicine 10/26/17 06/03/21 Laura Mock MD, DMD 1 [facility] [address] [place] [address] [email or web address] PCP - General Internal Medicine 06/04/21 11/11/23 Pcp, Unknown PCP - General 11/12/23 11/16/23 Laura Mock MD, DMD 1 [facility] [address] [place] [address] [place] [address] [email or web address] PCP - General Internal Medicine 11/17/23 12/28/23 Pcp, Unknown PCP - General 02/28/24 03/04/24 Nicole Newell MD [address] [place] [address] PCP - General 03/05/24 05/17/24 Laura Mock MD, DMD [address] [address] [email or web address] PCP - General Internal Medicine 05/18/24 Artie Meehan MD [address] [place] [address] Dr [address] [place] [address] Internal Medicine 10/26/17 04/23/22 Rina Swenson MD [address] [place] [address] [place] [address] Psychiatry 07/09/17 Laura Mock MD, DMD [address] [place] [address] [email or web address] [employer] Attributed Provider 09/01/21 07/03/23 Laura Mock MD, DMD [address] [place] [address] [email or web address] du Insurance Assigned Provider 05/31/23 03/01/24 Jakob Bob MD [address] [place] [address] [email or web address] Cardiology 08/22/23 Jose Cruz MD [address] [place] [address] [address] [place] [address] [email or web address] Cardiology 08/22/23 Laura Mock MD, DMD [address] [place] [address] [address] [place] [address] [email or web address] Attributed Provider 09/01/21 07/03/23 [facility] [phone]. Consulting Provider 08/22/23 [facility] Connect 12/24/23 03/11/24 Cyril Morales [address] [place] [address] Nurse Practitioner 02/27/24 documented as of this encounter Additional Source Comments The information contained in this document represents components of the legal health record. It is not the complete legal health record.[facility]
--- OUTSIDE RECORDS SUMMARY | 2024-10-22 10:58 | XMS_ITS | Encounter Summary ---
Author Organization [facility] Address [address] [employer] [facility] [address] [place] [address] Phone Care Team Providers Care Supervisor [employer] Name Role Phone Rina Swenson MD Unavailable Laura Mock MD, DMD Primary Car e Provider Laura Mock MD, DMD Unavailable Laura Mock MD, DMD Unavailable Jakob Bob MD Unavailable [phone] Jose Cruz MD Unavailable [phone] Laura Mock MD, DMD Unavailable Pcp, Unknown Primary Care Provider UnavailLaura Ascencio MD, DMD Primary Car e Provider Pcp, Unknown Primary Care Provider UnavailNicole Arguello MD Primary Care Provide r Laura Mock MD, DMD Primary Car e Provider Encounter Details Date Type Department Care Team (Late st Contact Info) Description 10/09/2022 Procedure Pass [facility] CT Imaging, [place] [address] [place] [address] Social History Tobacco Use Types Packs/Day Years [...] st Contact Info) Description 05/24/2024 Procedure Pass [facility] Radiology [address] [place] [address] 11/24/2024 1:15 PM EDT Appointment [facility] Radiology [address] [place] [address] Jim Zacarias MD [address] [address] [email or web address] 11/24/2024 2:15 PM EDT Office Visit [facility] Thoracic Surgery 15 [facility] 204 [place] [address] Jim Zacarias MD [address] [address] [email or web address] 01/31/2025 1:00 PM EST Office Visit [facility] 32 [facility], 5th Floor, [address] [place] [address] Karena Betancur MD 55 [facility] 5[address] [place] [address] [email or web address] Scheduled Procedures Name Priority Associated Diagnoses [...] documented as of this encounter Care Teams Supervisor [employer]ili[employer] Relationship Specialty Start Date End Date Laura Mock MD, DMD [address] [address] [email or web address] PCP - General Internal Medicine 06/04/21 11/11/23 Pcp, Unknown PCP - General 11/12/23 11/16/23 Laura Mock MD, DMD [address] [address] [email or web address] PCP - General Internal Medicine 11/17/23 12/28/23 Pcp, Unknown PCP - General 02/28/24 03/04/24 [place] [address] [address] PCP - General 03/05/24 05/17/24 Laura Mock MD, DMD [address] [address] [email or web address] PCP - General Internal Medicine 05/18/24 Rina Swenson MD Psychiatry 07/09/17 Laura Mock MD, DMD [address] [address] [email or web address] Attributed Provider 09/01/21 07/03/23 Laura Mock MD, DMD [address] [address] [email or web address] du Insurance Assigned Provider 05/31/23 03/01/24 Jakob Bob MD [address] [place] [address] [email or web address] Cardiology 08/22/23 Jose Cruz MD [address] [place] [address] [email or web address] Cardiology 08/22/23 Laura Mock MD, DMD [address] [address] [email or web address] Attributed Provider 09/01/21 07/03/23 [facility] [phone]. Consulting Provider 08/22/23 [facility] Connect 12/24/23 03/11/24 Cyril Morales [address] [place] [address] Nurse Practitioner 02/27/24 documented as of this encounter Additional Source Comments The information contained in this document represents components of the legal health record. It is not the complete legal health record.[facility]
--- OUTSIDE RECORDS SUMMARY | 2024-10-22 10:58 | XMS_ITS | Encounter Summary ---
Author Organization [facility] Address [facility] [employer] [address] [address] Phone Care Team Providers Care Handyman Name Role Phone Artie Meehan MD Primary [...] Car e Provider Reason for Referral * Occupational Therapy (Routine) - Closed Specialty Diagnoses / Procedures Referred By Bandar daugherty Referred To Contact Occupational Therapy Diagnoses Left wrist fracture, sequela Artie Meehan MD Phone: tel: fax: [facility] [address] [place] [address] Phone: tel: Referral ID Status Reason Start Date Expiration Date Visits Re quested Visits Authorized [id number] Closed 11/27/2018 02/23/2019 99 99 Encounter Details Date Type Department Care Team (Latest Contact Info) Description 11/27/2018 Transcribe Orders [facility] [address] [place] [address] Artie Meehan MD [address] [place] [address] [facility] [place] [address] Left wrist fracture, sequela (Primary Dx) Social History Tobacco Use Types [...] st Contact Info) Description 05/24/2024 Procedure Pass [facility] [address] [place] [address] 11/24/2024 1:15 PM EDT Appointment [facility] [address] [place] [address] Jim Zacarias MD [address] [place] [address] [email or web address] 11/24/2024 2:15 PM EDT Office [facility] Thoracic Surgery 15 [facility] 204 [place] [address] Jim Zacarias MD 75 [facility] [address] [place] [address] [email or web address] 01/31/2025 1:00 PM EST Office Visit [facility] Cardiovascular Medicine 32 [facility], 5th Floor, [address] [place] [address] Karena Betancru MD 55 [facility] [address] [place] [address] [email or web address] Scheduled Procedures Name Priority Associated Diagnoses Date/Ti me COLONOSCOPY Abnormal colonoscopy documented as of this encounter Procedures Procedure Name Priority Date/Time Associated Diagnosis Comments AMB REFERRAL TO [facility] OCCUPATIONAL THERAPY Routine 12/08/2018 4:10 PM EDT Left wrist fracture, sequela documented in this encounter Results * Ambulatory referral to [facility] Occupational Therapy (12/08/2018 4:10 PM EDT) us Artie Meehan MD AMB [facility] REFERRALS Final R esult documented in this encounter Visit Diagnoses Diagnosis Left wrist fracture, sequela- Primary documented in this encounter Additional Health Concerns Infection Onset Date Last Indicated Resolved Time CoV-Presumed 03/23/2022 03/23/2022 04/13/2022 1:23 AM EST CoV-Risk 11/12/2023 11/12/2023 11/12/2023 5:12 PM EDT COVID-19 11/12/2023 11/12/2023 12/03/2023 1:21 AM EDT documented as of this encounter Care Teams Handyman Relationship Specialty Start Date End Date Artie Meehan MD [address] [place] [address] [place] [address] PCP - General Internal Medicine 10/26/17 06/03/21 Laura Mock MD, DMD 1 [facility] [address] [place] [address] [email or web address] PCP - General Internal Medicine 06/04/21 11/11/23 Pcp, Unknown PCP - General 11/12/23 11/16/23 Laura Mock MD, DMD 1 [facility] [address] [place] [address] [email or web address] PCP - General Internal Medicine 11/17/23 12/28/23 Pcp, Unknown PCP - General 02/28/24 03/04/24 Nicole Newell MD [address] [place] [address] PCP - General 03/05/24 05/17/24 Laura Mock MD, DMD [address] [address] [email or web address] PCP - General Internal Medicine 05/18/24 Artie Meehan MD [address] [place] [address] Dr [address] [place] [address] Internal Medicine 10/26/17 04/23/22 Rina Swenson MD [address] [place] [address] Dr [address] [place] [address] Psychiatry 07/09/17 Laura Mock MD, DMD [address] [address] [email or web address] Attributed Provider 09/01/21 07/03/23 Laura Mock MD, DMD [address] [address] [email or web address] Insurance Assigned Provider 05/31/23 03/01/24 Jakob Bob MD [address] [place] [address] [email or web address] Cardiology 08/22/23 Jose Cruz MD [address] [place] [address] [address] [place] [address] [email or web address] Cardiology 08/22/23 Laura Mock MD, DMD [address] [address] [email or web address] Attributed Provider 09/01/21 07/03/23 [facility] [phone]. Consulting Provider 08/22/23 [facility] Connect 12/24/23 03/11/24 Cyril Morales [address] [place] [phone] Nurse Practitioner 02/27/24 documented as of this encounter Additional Source Comments The information contained in this document represents components of the legal health record. It is not the complete legal health record.[facility]
--- OUTSIDE RECORDS SUMMARY | 2024-10-22 10:58 | XMS_ITS | Encounter Summary ---
Author Organization [facility] Address [facility] [address] [place] [address] Phone Care Team Providers Care Sample Finisher Name Role Phone Artie Meehan MD Primary Care Provider Artie Meehan MD Unavailable Rina Swenson MD Unavailable [phone] Laura Mock MD, DMD Primary Car e Provider Laura Mock MD, DMD Unavailable Laura Mock MD, DMD Unavailable Jakob Bob MD Unavailable [phone] Jose Cruz MD Unavailable Laura Mock MD, DMD Unavailable Pcp, Unknown Primary Care Provider UnavailLaura Ascencio MD, DMD Primary Car e Provider Pcp, Unknown Primary Care Provider UnavailNicole Arguello MD Primary Care Provide r Laura Mock MD, DMD Primary Car e Provider Encounter Details Date Type Department Care Team (Late st Contact Info) Description 12/11/2018 Ancillary Orders Virtual Department 30 [place] [address] Artie Meehan MD [address] [place] [address] [place] [address] Breast screening Social History Tobacco Use Types [...] Upcoming Encounters Date Type Department Care Team ([facility] Contact Info) Description 05/24/2024 Procedure Pass [facility] Radiology [address] [place] [address] 11/24/2024 1:15 PM EDT Appointment [facility] Radiology [address] [place] [address] Jim Zacarias MD [address] [address] [email or web address] 11/24/2024 2:15 PM EDT Office Visit [facility] Thoracic Surgery 15 [facility] 204 [place] [address] Jim Zacarias MD [id number] [place] [address] [email or web address] 01/31/2025 1:00 PM EST Office Visit [facility] Cardiovascular Medicine 32 [facility], 5th Floor, [address] [place] [address] Karena Betancur MD 55 [facility] [address] [place] [address] [email or web address] Scheduled Procedures Name Priority Associated Diagnoses Date/Ti vt COLONOSCOPY Abnormal colonoscopy documented as of this encounter Results * BI MAMMOGRAM SCREENING WITH TOMOSYNTHESIS WITH CAD (BILATERAL) (01/05/2019 12:06 PM EST) Anatomical Region Laterality Modality Breast Left, Breast Right, Breast Bilateral Bila teral Mammography 01/05/2019 1:50 PM EST Impressions 01/05/2019 1:52 PM EST Stable appearance relative to prior imaging. No findings suggestive of malignancy are seen. BI-RADS CATEGORY: 2 - Benign finding. DENSITY: The breast tissue is heterogeneously dense, an appearance which lowers the sensitivity of mammography. POS - [id number] Narrative 01/05/2019 1:52 PM EST Full-field digital mammography is obtained with computer-aided detection. Comparison with prior imaging from September 12, 2017 is made with older imaging dating back as far as September 12, 2011 also reviewed. There is heterogeneous fibroglandular density evident in the breasts. In addition to 2-D C view imaging, tomosynthesis images are obtained in two projections of each breast. Scattered punctate and bilateral vascular calcifications are again noted.. No dominant soft tissue mass of concern, suspicious cluster of calcifications, significant interval skin changes, or architectural distortion is identified. Procedure Note Monico Haynes MD - 01/05/2019 Full-field digital mammography is obtained with computer-aided detection.Comparison with prior imaging from September 12, 2017 is made with olderimaging dating back as far as September 12, 2011 also reviewed. There is heterogeneous fibroglandular density evident in the breasts. Inaddition to 2-D C view imaging, tomosynthesis images are obtained in twoprojections of each breast. Scattered punctate and bilateral vascular calcifications are again noted..No dominant soft tissue mass of concern, suspicious cluster ofcalcifications, significant interval skin changes, or architecturaldistortion is identified. IMPRESSION: Stable appearance relative to prior imaging. No findings suggestive ofmalignancy are seen. BI-RADS CATEGORY: 2 - Benign finding. DENSITY: The breast tissue is heterogeneously dense, an appearance whichlowers the sensitivity of mammography. POS - [id number] Artie Meehan MD IMG MG EXAMS Final [...] documented as of this encounter Care Teams Sample Finisher Relationship Specialty Start Date End Date Artie Meehan MD [address] [place] [address] Dr Dior [facility] [place] [address] PCP - General Internal Medicine 10/26/17 06/03/21 Laura Mock MD, DMD [address] [address] [email or web address] PCP - General Internal Medicine 06/04/21 11/11/23 Pcp, Unknown PCP - General 11/12/23 11/16/23 Laura Mock MD, DMD [address] [address] [email or web address] PCP - General Internal Medicine 11/17/23 12/28/23 Pcp, Unknown PCP - General 02/28/24 03/04/24 [place] [address] [address] PCP - General 03/05/24 05/17/24 Laura Mock MD, DMD 1 [facility] [address] [place] [address] [email or web address] PCP - General Internal Medicine 05/18/24 Artie Meehan MD [address] [place] [address] Dr [address] [place] [address] Internal Medicine 10/26/17 04/23/22 Rina Swenson MD [address] [place] [address] Dr [address] [place] [address] [place] [address] Psychiatry 07/09/17 Laura Mock MD, DMD [address] [address] [email or web address] Partners Attributed Provider 09/01/21 07/03/23 Laura Mock MD, DMD [address] [address] [email or web address] Insurance Assigned Provider 05/31/23 03/01/24 Jakob Bob MD [address] [place] [address] [email or web address] Cardiology 08/22/23 Jose Cruz MD [address] [place] [address], [facility] [address] [place] [address] [email or web address] Cardiology 08/22/23 Laura Mock MD, DMD [address] [address] [email or web address] Partners Attributed Provider 09/01/21 07/03/23 [facility] [phone]. Consulting Provider 08/22/23 [facility] Connect 12/24/23 03/11/24 Cyril Morales [facility] [place] [address] Nurse Practitioner 02/27/24 documented as of this encounter Additional Source Comments The information contained in this document represents components of the legal health record. It is not the complete legal health record.[facility]
--- OUTSIDE RECORDS SUMMARY | 2024-10-22 10:58 | XMS_ITS | Encounter Summary ---
Author Organization [facility] Address [facility] [employer] [facility] [address] [place] [address] Phone Care Team Providers Care Mailing Section Clerk Name Role Phone Artie Meehan MD Primary Care Provider Artie Meehan MD Primary Care Provider Artie Meehan MD Unavailable Rina Swenson MD Unavailable [phone] Laura Mock MD, DMD Primary Car e Provider Laura Mock MD, DMD Unavailable Laura Mock MD, DMD Unavailable Jakob Bob MD Unavailable Jose Cruz MD Unavailable [phone] Laura Mock MD, DMD Unavailable Pcp, Unknown Primary Care Provider UnavailLaura Ascencio MD, DMD Primary Car e Provider Pcp, Unknown Primary Care Provider UnavailNicole Arguello MD Primary Care Provide r Laura Mock MD, DMD Primary Car e Provider Encounter Details Date Type Department Care Team (Late st Contact Info) Description 08/19/2017 Ancillary Orders Virtual Department [address] [place] [address] Artie Meehan MD [address] [place] [address] [place] [address] Breast screening Social History Tobacco Use Types [...] st Contact Info) Description 05/24/2024 Procedure Pass [facility] Radiology [address] [place] [address] 11/24/2024 1:15 PM EDT Appointment [facility] Radiology [address] [place] [address] Jim Zacarias MD [address] [address] [email or web address] 11/24/2024 2:15 PM EDT Office Visit [facility] Thoracic Surgery 15 [facility] 204 [place] [address] Jim Zacarias MD [address] [address] [email or web address] 01/31/2025 1:00 PM EST Office Visit [facility] Medicine 32 [facility], 5th Floor, [address] [place] [address] Karena Betancur MD 55 [facility] 5B [place] [address] [email or web address] Scheduled Procedures Name Priority Associated Diagnoses Date/Ti ak COLONOSCOPY Abnormal colonoscopy documented as of this encounter Results * BI MAMMOGRAM SCREENING WITH TOMOSYNTHESIS WITH CAD (BILATERAL) (09/12/2017 1:49 PM EDT) Anatomical Region Laterality Modality Breast Left, Breast Right, Breast Bilateral Bila teral Mammography 09/12/2017 1:59 PM EDT Impressions 09/12/2017 2:03 PM EDT Stable appearance relative to prior imaging. No findings suggestive of malignancy are seen. BI-RADS CATEGORY: 2 - Benign finding. DENSITY: The breast tissue is heterogeneously dense, an appearance which lowers the sensitivity of mammography. POS - [id number] Narrative 09/12/2017 2:03 PM EDT Full-field digital mammography is obtained with computer-aided detection. Comparison with prior imaging from 06/20/2016 is made with older imaging dating back as far as 09/12/2011 also reviewed. There is heterogeneous fibroglandular density evident in the breasts. In addition to 2-D C view imaging, tomosynthesis images are obtained in two projections of each breast. There are scattered bilateral punctate and vascular calcifications present which are stable.. No dominant soft tissue mass of concern, suspicious cluster of calcifications, significant interval skin changes, or architectural distortion is identified. Procedure Note Monico Haynes MD - 09/12/2017 Full-field digital mammography is obtained with computer-aided detection.Comparison with prior imaging from 06/20/2016 is made with older imagingdating back as far as 09/12/2011 also reviewed. There is heterogeneous fibroglandular density evident in the breasts. Inaddition to 2-D C view imaging, tomosynthesis images are obtained in twoprojections of each breast. There are scattered bilateral punctate and vascular calcifications presentwhich are stable.. No dominant soft tissue mass of concern, suspiciouscluster of calcifications, significant interval skin changes, orarchitectural distortion is identified. IMPRESSION: Stable appearance relative to prior imaging. No findings suggestive ofmalignancy are seen. BI-RADS CATEGORY: 2 - Benign finding. DENSITY: The breast tissue is heterogeneously dense, an appearance whichlowers the sensitivity of mammography. POS - [id number] Artie Meehan MD IMG MG EXAMS Final [...] documented as of this encounter Care Teams Mailing Section Clerk Relationship Specialty Start Date End Date Artie Meehan MD [address] [place] [address] Dr Dior [facility] [place] [address] PCP - General Internal Medicine 07/09/17 10/25/17 Artie Meehan MD [address] [place] [address] Dr Dior [facility] [place] [address] PCP - General Internal Medicine 10/26/17 06/03/21 Laura Mock MD, DMD [address] [address] [email or web address] PCP - General Internal Medicine 06/04/21 11/11/23 Pcp, Unknown PCP - General 11/12/23 11/16/23 Laura Mock MD, DMD [address] [address] [email or web address] PCP - General Internal Medicine 11/17/23 12/28/23 Pcp, Unknown PCP - General 02/28/24 03/04/24 [place] [address] [address] PCP - General 03/05/24 05/17/24 Laura Mock MD, DMD [address] [address] [email or web address] PCP - General Internal Medicine 05/18/24 Artie Meehan MD [address] [place] [address] Dr Dior [facility] [place] [address] Internal Medicine 10/26/17 04/23/22 Rina Swenson MD [address] [place] [address] Dr [address] [place], [place] [address] [address] Psychiatry 07/09/17 Laura Mock MD, DMD [address] [address] [email or web address] Attributed Provider 09/01/21 07/03/23 Laura Mock MD, DMD [address] [address] [email or web address] Insurance Assigned Provider 05/31/23 03/01/24 Jakob Bob MD [address] [place] [address] [email or web address] Cardiology 08/22/23 Jose Cruz MD [address] [place] [address] [address] [place] [address] Cardiology 08/22/23 Laura Mock MD, DMD 1 [place] [address] [email or web address] Partners Attributed Provider 09/01/21 07/03/23 [facility] [phone]. Consulting Provider 08/22/23 CAROLANN GREWAL Connect 12/24/23 03/11/24 Cyril Morales [facility] [place] [address] Nurse Practitioner 02/27/24 documented as of this encounter Additional Source Comments The information contained in this document represents components of the legal health record. It is not the complete legal health record.[facility]
--- OUTSIDE RECORDS SUMMARY | 2024-10-22 10:58 | XMS_ITS | Encounter Summary ---
Author Organization [facility] Address [address] [facility] [address] [place] [address] Phone Care Team Providers Care Daily Release And Dupe Printer Name Role Phone Rina Swenson MD Unavailable [phone] Laura Mock MD, DMD Unavailable Jakob Bob MD Unavailable Jose Cruz MD Unavailable [phone] Laura Mock MD, DMD Primary Car e Provider Pcp, Unknown Primary Care Provider Unavailabl e Nicole Newell MD Primary Care Provide r Laura Mock MD, DMD Primary Car e Provider Encounter Details Date Type Department Care Team (Late st Contact Info) Description 12/04/2023 Procedure Pass [facility] Periop 75 [place] [address] Social History Tobacco Use Types Packs/Day Years [...] st Contact Info) Description 05/24/2024 Procedure Pass [facility] Radiology [address] [place] [address] 11/24/2024 1:15 PM EDT Appointment [facility] Radiology [address] [place] [address] Jim Zacarias MD [address] [place] [address] [email or web address] 11/24/2024 2:15 PM EDT Office Visit [facility] Thoracic Surgery 15 [facility] 204 [place] [address] Jim Zacarias MD [address] [place] [address] [email or web address] 01/31/2025 1:00 PM EST Office Visit [facility] Cardiovascular Medicine [address] [place] [address], 5th Floor, [address] [place] [address] Karena Betancur MD [address] [place] [address] [email or web address] Scheduled Procedures Name Priority Associated Diagnoses Date/Ti me COLONOSCOPY Abnormal colonoscopy documented as of this encounter Visit Diagnoses Not on filedocumented in this encounter Additional Health Concerns Assessment Noted Time PHQ-9 Depression Total Score: 17 023 11:28 AM EST PHQ-2 Depression Total Score: 2 10/10/19 23 11:28 AM EDT documented as of this encounter Care Teams Daily Release And Dupe Printer Relationship Specialty Start Date End Date Laura Mock MD, DMD [address] [address] [email or web address] PCP - General Internal Medicine 11/17/23 12/28/23 Pcp, Unknown PCP - General 02/28/24 03/04/24 Nicole Newell MD [address] [place] [address] PCP - General 03/05/24 05/17/24 Laura Mock MD, DMD [address] [address] [email or web address] PCP - General Internal Medicine 05/18/24 Rina Swenson MD Psychiatry 07/09/17 Laura Mock MD, DMD [address] [address] [email or web address] Insurance Assigned Provider 05/31/23 03/01/24 Jakob Bob MD [address] [place] [address] [email or web address] Cardiology 08/22/23 Jose Cruz MD [address] [place] [address], [address] [place] [address] [email or web address] Cardiology 08/22/23 [facility] [phone]. Consulting Provider 08/22/23 [facility] Connect 12/24/23 03/11/24 Cyril Morales [facility]5 [place] [address] Nurse Practitioner 02/27/24 documented as of this encounter Additional Source Comments The information contained in this document represents components of the legal health record. It is not the complete legal health record.[facility]
--- OUTSIDE RECORDS SUMMARY | 2024-10-22 10:58 | XMS_ITS | Encounter Summary ---
Author Organization [facility] Address [facility] [address] [address] Phone Care Team Providers Care Redevelopment Specialist Name Role Phone Rina Swenson MD Unavailable [...] Care Team (Late st Contact Info) Description 04/12/2023 Anti-coag visit VIRTUAL DEPARTMENT Unknown, Unknown, Social [...] st Contact Info) Description 05/24/[address] [facility] Radiology 75 [place] [address] 11/24/2024 1:15 PM EDT Appointment [facility] Radiology 75 [place] [address] Jim Zacarias MD [address] [address] [email or web address] 11/24/2024 2:15 PM EDT Office Visit [facility] Thoracic Surgery 15 [facility] 204 [place] [address] Jim Zacarias MD [address] [address] [email or web address] 01/31/2025 1:00 PM EST Office Visit [facility] Cardi[facility] Medicine 32 [facility], 5th Floor, [address] [place] [address] Karena Betancur MD 55 [facility] [address] [place] [address] [email or web address] Scheduled Procedures Name Priority Associated Diagnoses [...] documented as of this encounter Care Teams Redevelopment Specialist Relationship Specialty Start Date End Date Laura Mock MD, DMD [address] [address] [email or web address] PCP - General Internal Medicine 06/04/21 11/11/23 Pcp, Unknown PCP - General 11/12/23 11/16/23 Laura Mock MD, DMD [address] [address] [email or web address] PCP - General Internal Medicine 11/17/23 12/28/23 Pcp, Unknown PCP - General 02/28/24 03/04/24 Nicole Newell MD [address] [place] [address] PCP - General 03/05/24 05/17/24 Laura Mock MD, DMD [address] [address] [email or web address] PCP - General Internal Medicine 05/18/24 Rina Swenson MD Psychiatry 07/09/17 Laura Mock MD, DMD [address] [address] [email or web address] Partners Attributed Provider 09/01/21 07/03/23 Laura Mock MD, DMD [address] [address] [email or web address] Insurance Assigned Provider 05/31/23 03/01/24 Jakob Bob MD [address] [place] [address] [email or web address] Cardiology 08/22/23 Jose Cruz MD [address] [place] [address], [address] [address] [email or web address] Cardiology 08/22/23 Laura Mock MD, DMD [address] [address] [email or web address] Attributed Provider 09/01/21 07/03/23 [facility] [phone]. Consulting Provider 08/22/23 [facility] Connect 12/24/23 03/11/24 Cyril Morales [address] [place] [address] Nurse Practitioner 02/27/24 documented as of this encounter Additional Source Comments The information contained in this document represents components of the legal health record. It is not the complete legal health record.[facility]
--- OUTSIDE RECORDS SUMMARY | 2024-10-22 10:58 | XMS_ITS | Encounter Summary ---
Author Organization [facility] Address [facility] [address] [place] [address] Phone Care Team Providers Care Fixed Income Director Name Role Phone Rina Swenson MD Unavailable Laura Mock MD, DMD Primary Car e Provider Laura Mock MD, DMD Unavailable Laura Mock MD, DMD Unavailable Jakob Bob MD Unavailable [phone] Jose Cruz MD Unavailable [phone] Laura Mock MD, DMD Unavailable Pcp, Unknown Primary Care Provider UnavailLaura Ascencio MD, DMD Primary Car e Provider Pcp, Unknown Primary Care Provider UnavailNicole Arguello MD Primary Care Provide r Laura Mock MD, DMD Primary Car e Provider Encounter Details Date Type Department Care Team (Late st Contact Info) Description 05/27/2023 Procedure Pass [facility] Endoscopy Department [address] [place] [address] Social History Tobacco Use Types Packs/Day [...] st Contact Info) Description 05/24/2024 Procedure Pass [facility] Radiology [address] [place] [address] 11/24/2024 1:15 PM EDT Appointment [facility] [address] [place] [address] Jim Zacarias MD [address] [address] [email or web address] 11/24/2024 2:15 PM EDT Office Visit [facility] Thoracic Surgery 15 [facility] 204 [place] [address] Jim Zacarias MD [address] [address] [email or web address] 01/31/2025 1:00 PM EST Office [place] [facility] [place] [address] [facility], 5th Floor, [address] [place] [address] Karena Betancur MD [address] [address] [email or web address] Scheduled Procedures Name Priority Associated [...] documented as of this encounter Care Teams Fixed Income Director Relationship Specialty Start Date End Date Laura Mock MD, DMD [address] [address] [email or web address] PCP - General Internal Medicine 06/04/21 11/11/23 Pcp, Unknown PCP - General 11/12/23 11/16/23 Laura Mock MD, DMD [address] [address] [email or web address] PCP - General Internal Medicine 11/17/23 12/28/23 Pcp, Unknown PCP - General 02/28/24 03/04/24 [place] [id number] [address] PCP - General 03/05/24 05/17/24 Laura Mock MD, DMD [address] [address] [email or web address] PCP - General Internal Medicine 05/18/24 Rina Swenson MD Psychiatry 07/09/17 Laura Mock MD, DMD [address] [address] [email or web address] Attributed Provider 09/01/21 07/03/23 Laura Mock MD, DMD [address] [address] [email or web address] Insurance Assigned Provider 05/31/23 03/01/24 Jakob Bob MD [address] [place] [address] [email or web address] Cardiology 08/22/23 Jose Cruz MD [address] [place] [address] [email or web address] Cardiology 08/22/23 Laura Mock MD, DMD [address] [address] [email or web address] Attributed Provider 09/01/21 07/03/23 [facility] [phone]. Consulting Provider 08/22/23 [facility] Connect 12/24/23 03/11/24 Cyril Morales [address] [place] [phone] Nurse Practitioner 02/27/24 documented as of this encounter Additional Source Comments The information contained in this document represents components of the legal health record. It is not the complete legal health record.[facility]
--- OUTSIDE RECORDS SUMMARY | 2024-10-22 10:58 | XMS_ITS | Encounter Summary ---
Author Organization [facility] Address [address] [place] [address] Phone Care Team Providers Care Geriatrician Name Role Phone Rina Swenson MD Unavailable Laura Mock MD, DMD Primary Car e Provider Laura Mock MD, DMD Unavailable Laura Mock MD, DMD Unavailable Jakob Bob MD Unavailable [phone] Jose Cruz MD Unavailable [phone] Laura Mock MD, DMD Unavailable Pcp, Unknown Primary Care Provider UnavailLaura Ascencio MD, DMD Primary Car e Provider Pcp, Unknown Primary Care Provider UnavailNicole Agruello MD Primary Care Provide r Laura Mock MD, DMD Primary Car e Provider Encounter Details Date Type Department Care Team (Late st Contact Info) Description 03/23/2023 Anti-coag visit [facility] Anticoagulation Clinic 75 [place] [address] Purvi Lawler, PharmD [address] [place] [address] [email or web address] Social History Tobacco Use Types Packs/Day [...] st Contact Info) Description 05/24/2024 Procedure Pass [facility] Radiology [address] [place] [address] 11/24/2024 1:15 PM EDT Appointment [facility] Radiology [address] [place] [address] Jim Zacarias MD [address] [place] [address] [email or web address] 11/24/2024 2:15 PM EDT Office Visit [facility] Thoracic Surgery 15 [facility] 204 [place] [address] Jim Zacarias MD [address] [place] [address] [email or web address] 01/31/2025 1:00 PM EST Office Visit [facility] Cardiovascular Medicine [address] [place] [address], 5th Floor, [address] [place] [address] Karena Betancur MD 55 [facility] [address] [place] [address] [email or web address] Scheduled Procedures Name Priority [...] documented as of this encounter Care Teams Geriatrician Relationship Specialty Start Date End Date Laura Mock MD, DMD [address] [address] [email or web address] PCP - General Internal Medicine 06/04/21 11/11/23 Pcp, Unknown PCP - General 11/12/23 11/16/23 Laura Mock MD, DMD [address] [address] [email or web address] PCP - General Internal Medicine 11/17/23 12/28/23 Pcp, Unknown PCP - General 02/28/24 03/04/24 [place] [address] [address] PCP - General 03/05/24 05/17/24 Laura Mock MD, DMD [address] [address] [email or web address] PCP - General Internal Medicine 05/18/24 Rina Swenson MD Psychiatry 07/09/17 Laura Mock MD, DMD [address] [address] [email or web address] Partners Attributed Provider 09/01/21 07/03/23 Laura Mock MD, DMD [address] [address] [email or web address] Insurance Assigned Provider 05/31/23 03/01/24 Jakob Bob MD [address] [place] [address] [email or web address] Cardiology 08/22/23 Jose Cruz MD [address] [place] [address], [address] [place] [address] Cardiology 08/22/23 Laura Mock MD, DMD [address] [address] [email or web address] Partners Attributed Provider 09/01/21 07/03/23 [employer] [phone]. Consulting Provider 08/22/23 [facility] Connect 12/24/23 03/11/24 Cyril Morales [address] [place] [address] Nurse Practitioner 02/27/24 documented as of this encounter Additional Source Comments The information contained in this document represents components of the legal health record. It is not the complete legal health record.[facility]
--- OUTSIDE RECORDS SUMMARY | 2024-10-22 10:59 | XMS_ITS | Encounter Summary ---
Author Organization [facility] Address [facility] [address] [place] [address] Phone Care Team Providers Care Enthone Solder Stripper Name Role Phone Artie Meehan MD Primary Care Provider Artie Meehan MD Unavailable Rina Swenson MD Unavailable Laura Mock MD, DMD Primary Car e Provider Laura Mock MD, DMD Unavailable Laura Mock MD, DMD Unavailable Jakob Bob MD Unavailable Jose Cruz MD Unavailable Laura oMck MD, DMD Unavailable Pcp, Unknown Primary Care Provider UnavailLaura Ascencio MD, DMD Primary Car e Provider Pcp, Unknown Primary Care Provider UnavailNicole Arguello MD Primary Care Provide r Laura Mock MD, DMD Primary Car e Provider Reason for Referral * MRI/CAT Scan - Closed Specialty Diagnoses / Procedures Referred By Contac t Referred To Contact Procedures MRI Lower Extremity Outside (No Interpretation) Daryn Moyer MD Phone: tel: fax: mailto:[email or web address] Referral ID Status Reason Start Date Expiration Date Visits Re quested Visits Authorized [id number] Closed 01/06/2018 01/06/2019 1 1 Encounter Details Date Type Department Care Team (Late st Contact Info) Description 01/06/2018 Transcribe Orders [facility] [address] [place] [address] Shira Mann [address] [place] [address] [email or web address] Social History Tobacco Use Types [...] (Late Contact Info) Description 05/24/2024 Procedure Pass [facility] [address] [place] [address] 11/24/2024 1:15 PM EDT Appointment [facility] [address] [place] [address] Jim Zacarias MD [address] [place] [address] [email or web address] 11/24/2024 2:15 PM EDT Office Visit [facility] Thoracic Surgery 15 [facility] 204 [place] [address] Jim Zacarias MD [address] [place] [address] [email or web address] 01/31/2025 1:00 PM EST Office Visit [facility] Cardiovascular Medicine 32 [facility], 5th Floor, [address] [place] [address] Karena Betancur MD 55 [facility] [address] [place] [address] [email or web address] Scheduled Procedures Name Priority Associated Diagnoses Date/Ti me COLONOSCOPY Abnormal colonoscopy documented as of this encounter Results * MRI Lower Extremity Outside (No Interpretation) (01/06/2018 11:46 AM EST) [facility]ative [facility] 01/06/2018 11:46 AM EST This study is for PACS storage only and not for interpretation. us Daryn Moyer MD IMG OUTSIDE IMAGING W/OUT INT ERPRETATION Final Result [facility] documented in this encounter Visit Diagnoses Not on filedocumented in this encounter Additional Health Concerns Infection Onset Date Last Indicated Resolved Time CoV-Presumed 03/23/2022 03/23/2022 04/13/2022 1:23 AM EST CoV-Risk 11/12/2023 11/12/2023 11/12/2023 5:12 PM EDT COVID-19 11/12/2023 11/12/2023 12/03/2023 1:21 AM EDT documented as of this encounter Care Teams Enthone Solder Stripper Relationship Specialty Start Date End Date Artie Meehan MD [address] [place] [address] [place] [address] PCP - General Internal Medicine 10/26/17 06/03/21 Laura Mock MD, DMD 1 [facility] [address] [place] [address] [email or web address] PCP - General Internal Medicine 06/04/21 11/11/23 Pcp, Unknown PCP - General 11/12/23 11/16/23 Laura Mock MD, DMD 1 [facility] [address] [place] [address] [email or web address] PCP - General Internal Medicine 11/17/23 12/28/23 Pcp, Unknown PCP - General 02/28/24 03/04/24 Nicole Newell MD [address] [place] [address] PCP - General 03/05/24 05/17/24 Laura Mock MD, DMD [address] [address] [email or web address] PCP - General Internal Medicine 05/18/24 Artie Meehan MD [address] [place] [address] [place] [address] Internal Medicine 10/26/17 04/23/22 Rina Swenson MD [address] [place] [address] Dr [address] [place] [address] Psychiatry 07/09/17 Laura Mock MD, DMD [address] [address] [email or web address] Attributed Provider 09/01/21 07/03/23 Laura Mock MD, DMD 1 [facility] [address] [place] [address] [email or web address] Insurance Assigned Provider 05/31/23 03/01/24 Jakob Bob MD 75 [place] [address] [email or web address] Cardiology 08/22/23 Jose Cruz MD [address] [place] [address] 301 [place] [address] [email or web address] Cardiology 08/22/23 Laura Mock MD, DMD [address] [address] [email or web address] Attributed Provider 09/01/21 07/03/23 [facility] [phone]. Consulting Provider 08/22/23 [facility] Connect 12/24/23 03/11/24 Cyril Morales [address] [place] [phone] Nurse Practitioner 02/27/24 documented as of this encounter Additional Source Comments The information contained in this document represents components of the legal health record. It is not the complete legal health record.[facility]
--- OUTSIDE RECORDS SUMMARY | 2024-10-22 10:59 | XMS_ITS | Encounter Summary ---
Author Organization [facility] Address [facility] [address] [place] [address] Phone Care Team Providers Care Software Engineering Analyst Name Role Phone Artie Meehan MD Primary [...] Care Team (Late st Contact Info) Description 12/19/2017 Procedure Pass [facility] Radiology 75 [place] [address] Social History Tobacco Use Types Packs/Day Years [...] PM EDT documented as of this encounter Last Filed Vital Signs Vital Sign Reading Time Taken Comments Blood Pressure - - Pulse - - Temperature - - Respiratory Rate - - Oxygen Saturation - - Inhaled Oxygen Concentration - - Weight 54.4 kg (120 lb) 12/21/2017 1:39 PM EDT Height 154.9 cm (5' 1 ) 12/21/2017 1:39 PM EDT Body Mass Index 22.67 12/21/2017 1:39 PM EDT documented in this encounter Plan of Treatment Upcoming Encounters Date Type Department Care Team ([facility] st Contact Info) Description 05/24/2024 Procedure Pass [facility] Radiology [address] [place] [address] 11/24/2024 1:15 PM EDT Appointment [facility] Radiology [address] [place] [address] Jim Zacarias MD [address] [place] [address] [email or web address] 11/24/2024 2:15 PM EDT Office Visit [facility] Thoracic Surgery [address] [address] Jim Zacarias MD [address] [place] [address] [email or web address] 01/31/2025 1:00 PM EST Office [place] [facility] [place] [address] [place] [address], 5th Floor, [address] [place] [address] Karena Betancur MD [address] [place] [address] [email or web address] Scheduled Procedures Name Priority Associated Diagnoses Date/Ti me COLONOSCOPY Abnormal colonoscopy documented as of this encounter Visit Diagnoses Not on filedocumented in this encounter Additional Health Concerns Infection Onset Date Last Indicated Resolved Time CoV-Presumed 03/23/2022 03/23/2022 04/13/2022 1:23 AM EST CoV-Risk 11/12/2023 11/12/2023 11/12/2023 5:12 PM EDT COVID-19 11/12/2023 11/12/2023 12/03/2023 1:21 AM EDT documented as of this encounter Care Teams Software Engineering Analyst Relationship Specialty Start Date End Date Artie Meehan MD [address] [place] [address] PCP - General Internal Medicine 10/26/17 06/03/21 Laura Mock MD, DMD [address] [address] [email or web address] PCP - General Internal Medicine 06/04/21 11/11/23 Pcp, Unknown PCP - General 11/12/23 11/16/23 Laura Mock MD, DMD [address] [address] [email or web address] PCP - General Internal Medicine 11/17/23 12/28/23 Pcp, Unknown PCP - General 02/28/24 03/04/24 [place] [address] [address] PCP - General 03/05/24 05/17/24 Laura Mock MD, DMD [address] [address] [email or web address] PCP - General Internal Medicine 05/18/24 Artie Meehan MD [address] [place] [address] Dr [address] [place] [address] Internal Medicine 10/26/17 04/23/22 Rina Swenson MD [address] [place] [address] Dr [address] [place] [address] [place] [address] Psychiatry 07/09/17 Laura Mock MD, DMD [address] [address] [email or web address] Attributed Provider 09/01/21 07/03/23 Laura Mock MD, DMD [address] [address] [email or web address] Insurance Assigned Provider 05/31/23 03/01/24 Jakob Bob MD [address] [place] [address] [email or web address] Cardiology 08/22/23 Jose Cruz MD [address] [place] [address] Cardiology 08/22/23 Laura Mock MD, DMD 1 [facility] 225 [place] [address] [email or web address] Attributed Provider 09/01/21 07/03/23 [facility] [place] [phone]. Consulting Provider 08/22/23 [facility] Connect 12/24/23 03/11/24 Cyril Morales [address] [place] [address] Nurse Practitioner 02/27/24 documented as of this encounter Additional Source Comments The information contained in this document represents components of the legal health record. It is not the complete legal health record.[facility]
--- OUTSIDE RECORDS SUMMARY | 2024-10-22 10:59 | XMS_ITS | Encounter Summary ---
Author Organization [facility] Address [facility] [address] [place] [address] Phone Care Team Providers Care Fabricator Foam Rubber Name Role Phone Artie Meehan MD Primary Care Provider Artie Meehan MD Unavailable Rina Swenson MD Unavailable Laura Mock MD, DMD Primary Car e Provider Laura Mock MD, DMD Unavailable Laura Mock MD, DMD Unavailable Jakob Bob MD Unavailable [phone] Jose Cruz MD Unavailable Laura Mock MD, DMD Unavailable Pcp, Unknown Primary Care Provider UnavailLaura Ascencio MD, DMD Primary Car e Provider Pcp, Unknown Primary Care Provider UnavailNicole Arguello MD Primary Care Provide r Laura Mock MD, DMD Primary Car e Provider Encounter Details Date Type Department Care Team (Late st Contact Info) Description 12/24/2017 Procedure Pass [facility] Radiology [address] [place] [address] Social History Tobacco Use Types Packs/Day Years [...] - Inhaled Oxygen Concentration - - Weight 53.5 kg (118 lb) 12/25/2017 10:43 AM EDT Height 151.5 cm (4' 11.65 ) 12/25/2017 10:43 AM EDT Body Mass Index 23.32 12/25/2017 10:43 AM EDT documented in this encounter Plan of Treatment Upcoming Encounters Date Type Department Care Team ([facility] st Contact Info) Description 05/24/2024 Procedure Pass [facility] Radiology [address] [place] [address] 11/24/2024 1:15 PM EDT Appointment [facility] Radiology [address] [place] [address] Jim Zacarias MD [address] [place] [address] [email or web address] 11/24/2024 2:15 PM EDT Office Visit [facility] Thoracic Surgery [address] [place] [address] Jim Zacarias MD [address] [place] [address] [email or web address] 01/31/2025 1:00 PM EST Office Visit [facility] Cardiovascular Medicine [address] [place] [address], 5th Floor, [address] [place] [address] Karena Betancur MD 55 [facility] 5[address] [place] [address] [email or web address] Scheduled Procedures Name [...] documented as of this encounter Care Teams Fabricator Foam Rubber Relationship Specialty Start Date End Date Artie Meehan MD [address] [place] [address] PCP - General Internal Medicine 10/26/17 06/03/21 Laura Mock MD, DMD [address] [address] [email or web address] PCP - General Internal Medicine 06/04/21 11/11/23 Pcp, Unknown PCP - General 11/12/23 11/16/23 Laura Mock MD, DMD [address] [address] [email or web address] PCP - General Internal Medicine 11/17/23 12/28/23 Pcp, Unknown PCP - General 02/28/24 03/04/24 [place] [address] [address] PCP - General 03/05/24 05/17/24 Laura Mock MD, DMD [address] [address] [email or web address] PCP - General Internal Medicine 05/18/24 Artie Meehan MD [address] [place] [address] Dr [address] [place] [address] Internal Medicine 10/26/17 04/23/22 Rina Swenson MD [address] [place] [address] Dr [address] [place] [address] [place] [address] Psychiatry 07/09/17 Laura Mock MD, DMD [address] [address] [email or web address] Attributed Provider 09/01/21 07/03/23 Laura Mock MD, DMD [address] [address] [email or web address] Insurance Assigned Provider 05/31/23 03/01/24 Jakob Bob MD [address] [place] [address] [email or web address] Cardiology 08/22/23 Jose Cruz MD [address] [place] [address] Cardiology 08/22/23 Laura Mock MD, DMD 1 [facility] [address] [place] [address] [email or web address] Attributed Provider 09/01/21 07/03/23 [facility] [phone]. Consulting Provider 08/22/23 CAROL[facility] GREWAL Connect 12/24/23 03/11/24 Cyril Morales [address] [place] [address] Nurse Practitioner 02/27/24 documented as of this encounter Additional Source Comments The information contained in this document represents components of the legal health record. It is not the complete legal health record.[facility]
--- OUTSIDE RECORDS SUMMARY | 2024-10-22 10:59 | XMS_ITS | Encounter Summary ---
Author Organization [facility] Address [facility] [employer] [facility] [address] [place] [address] Phone Care Team Providers Care Network Operations Center Technician Name Role Phone Artie Meehan MD Primary [...] Bandar daugherty Referred To Contact Radiology Diagnoses Gross hematuria Procedures MRI Pelvis (GI/) Daryn Moyer MD Phone: tel: fax: mailto:[email or web address] Referral ID Status Reason Start Date Expiration Date Visits Re quested Visits Authorized [id number] Closed 12/24/2017 12/24/2018 1 1 Encounter Details Date Type Department Care Team ([facility] Contact Info) Description 12/24/2017 Ancillary Orders [facility] Urology [address] [place], [place] [address] [place] [address] Daryn Moyer MD 45 [facility] 11[address] [place] [address] [email or web address] Gross hematuria Social History Tobacco Use Types Packs/Day Years [...] Upcoming Encounters Date Type Department Care Team ([facility] Contact Info) Description 05/24/2024 Procedure Pass [facility] Radiology [address] [place] [address] 11/24/2024 1:15 PM EDT Appointment [facility] Radiology [address] [place] [address] Jim Zacarias MD 75 [facility] [address] [place] [address] [email or web address] 11/24/2024 2:15 PM EDT Office Visit [facility] Thoracic Surgery 15 [facility] [address] [place] [address] Jim Zacarias MD 75 [facility] [address] [place] [address] [email or web address] 01/31/2025 1:00 PM EST Office [place] [facility] [place] 32 [facility], 5th Floor, [address] [place] [address] Karena Betancur MD 55 [facility] [address] [place] [address] [email or web address] Scheduled Procedures Name Priority Associated Diagnoses Date/Ti mi COLONOSCOPY Abnormal colonoscopy documented as of this encounter Results * MRI PELVIS WITH AND WITHOUT CONTRAST (12/25/2017 12:04 PM EDT) Anatomical Region Laterality Modality Pelvis Magnetic Resonan ce 12/25/2017 12:0 4 PM EDT Impressions 12/25/2017 5:41 PM EDT 1. No bladder mass or pelvic mass. 2. Multiple small cystic lesions scattered in the pancreas possible dilated sidebranches or a branch duct IPMNs. These were seen on a prior remote CT 2011 but were not fully characterized. Recommend MRI liver and MRCP for further characterization and to look for association with main pancreatic duct. Critical results were communicated and documented using the Alert Notification of Critical Radiology Results (ANCR) system. ATTESTATION: Per Powell, as teaching physician have reviewed the images, if any, for this patient's exam, and if necessary, have edited the report originally created by Demond Holly. Narrative 12/25/2017 5:41 PM EDT Reason for exam (per EHR order): * HEMATURIA, GROSS Additional clinical information obtained from the EHR: 77-year-old female patient. She has an incidental finding of asymmetric right lateral bladder wall thickening detected on an MRI scan which was done for back pain. No gross hematuria. TECHNIQUE: Multi-planar, multi-sequence (including T1, T2 and diffusion-weighted) MRI of the abdomen and pelvis, without and with IV contrast. MR Urogram images were acquired using 2D and 3D techniques, after administration of 10 mg furosemide IV. Dynamic post-contrast imaging was directed to the pelvis; delayed post-contrast imaging was directed to the abdomen. Oral contrast: None. Intravenous contrast: 5.5 ml, Gadavist COMPARISON: None. FINDINGS: Lower Chest: Unchanged consolidation in the medial aspect of the left lower lobe with T1 hyperintense signal unchanged since 2007. Differential includes sequestration or CCAM. Liver: T2 hyperintense nonenhancing lesion in the dome of the liver measuring 2.1 x 1.5 cm, likely represents benign cyst or biliary hamartoma. Biliary System: No dilatation of the biliary radicles. Pancreas: Multiple small T2 hyperintense cystic lesions scattered in the pancreas measuring up to 1.2 cm in the head (19:27) also probably seen on prior scans from 2009. Spleen: Normal. Adrenal Glands: Normal. Kidneys: Multiple small nonenhancing T2 hyperintense lesions in both the kidneys suggestive of benign cysts. One of the cyst in the left kidney shows T1 hyperintense signal and appears relatively hypointense on T2-weighted images measuring 9 mm (23:28 and 12:25), favored to represent hemorrhagic or proteinaceous cyst. Bowel: Normal. Mesentery, Omentum and Peritoneum: Normal. Pelvic Organs: There is a 1.9 x 1.7 cm mildly enhancing lesion in the fundus of the uterus (36:24) suggestive of a fibroid. Nabothian cysts are seen in the uterine cervix. No adnexal mass. Trace amount of free fluid in the pelvis. There is a T1 hyperintense cystic lesion in the lower vagina on the left side measuring 13 x 7 mm (18:55) which appears hypointense on fat suppression most likely represents a benign hemorrhagic or proteinaceous Bartholin's duct cyst. Lymph Nodes: No lymphadenopathy by size criteria. Vasculature: Normal. Bones and Soft Tissues: Degenerative facet arthropathy at the L5-S1 level with mild marrow edema and synovitis enhancement suggestive of possible active inflammation. Tarlov's cyst are seen within the sacrum and spinal canal. Urogram: The collecting systems are well-opacified and appear normal. The ureters are well-opacified and appear normal. No hydronephrosis or hydroureter. No urothelial abnormality, wall thickening, dilatation or stricture. The bladder is distended and shows no thickening or masses. Procedure Note Per Dong MD - 12/25/2017 Reason for exam (per EHR order): * HEMATURIA, GROSS Additional clinical information obtained from the EHR: 77-year-old female patient. She has an incidental finding of asymmetric right lateral bladder wall thickening detected on an MRI scan which was done for back pain. No gross hematuria. TECHNIQUE: Multi-planar, multi-sequence (including T1, T2 and diffusion-weighted) MRI of the abdomen and pelvis, without and with IV contrast. MR Urogram images were acquired using 2D and 3D techniques, after administration of 10 mg furosemide IV. Dynamic post-contrast imaging was directed to the pelvis; delayed post-contrast imaging was directed to the abdomen. Oral contrast: None. Intravenous contrast: 5.5 ml, Gadavist COMPARISON: None. FINDINGS: Lower Chest: Unchanged consolidation in the medial aspect of the left lower lobe with T1 hyperintense signal unchanged since 2007. Differential includes sequestration or CCAM. Liver: T2 hyperintense nonenhancing lesion in the dome of the liver measuring 2.1 x 1.5 cm, likely represents benign cyst or biliary hamartoma. Biliary System: No dilatation of the biliary radicles. Pancreas: Multiple small T2 hyperintense cystic lesions scattered in the pancreas measuring up to 1.2 cm in the head (19:27) also probably seen on prior scans from 2010. Spleen: Normal. Adrenal Glands: Normal. Kidneys: Multiple small nonenhancing T2 hyperintense lesions in both the kidneys suggestive of benign cysts. One of the cyst in the left kidney shows T1 hyperintense signal and appears relatively hypointense on T2-weighted images measuring 9 mm (23:28 and 12:25), favored to represent hemorrhagic or proteinaceous cyst. Bowel: Normal. Mesentery, Omentum and Peritoneum: Normal. Pelvic Organs: There is a 1.9 x 1.7 cm mildly enhancing lesion in the fundus of the uterus (36:24) suggestive of a fibroid. Nabothian cysts are seen in the uterine cervix. No adnexal mass. Trace amount of free fluid in the pelvis. There is a T1 hyperintense cystic lesion in the lower vagina on the left side measuring 13 x 7 mm (18:55) which appears hypointense on fat suppression most likely represents a benign hemorrhagic or proteinaceous Bartholin's duct cyst. Lymph Nodes: No lymphadenopathy by size criteria. Vasculature: Normal. Bones and Soft Tissues: Degenerative facet arthropathy at the L5-S1 level with mild marrow edema and synovitis enhancement suggestive of possible active inflammation. Tarlov's cyst are seen within the sacrum and spinal canal. Urogram: The collecting systems are well-opacified and appear normal. The ureters are well-opacified and appear normal. No hydronephrosis or hydroureter. No urothelial abnormality, wall thickening, dilatation or stricture. The bladder is distended and shows no thickening or masses. IMPRESSION: 1. No bladder mass or pelvic mass. 2. Multiple small cystic lesions scattered in the pancreas possible dilated sidebranches or a branch duct IPMNs. These were seen on a prior remote CT 2011 but were not fully characterized. Recommend MRI liver and MRCP for further characterization and to look for association with main pancreatic duct. Critical results were communicated and documented using the Alert Notification of Critical Radiology Results (ANCR) system. ATTESTATION: Per Powell, as teaching physician have reviewed the images, if any, for this patient's exam, and if necessary, have edited the report originally created by Demond Holly. Daryn Moyer MD IMG MR PELVIS Final Result documented in this encounter Visit Diagnoses Diagnosis Gross hematuria Gross hematuria documented in this encounter Additional Health Concerns Infection Onset Date Last Indicated Resolved Time CoV-Presumed 03/23/2022 03/23/2022 04/13/2022 1:23 AM EST CoV-Risk 11/12/2023 11/12/2023 11/12/2023 5:12 PM EDT COVID-19 11/12/2023 11/12/2023 12/03/2023 1:21 AM EDT documented as of this encounter Care Teams Network Operations Center Technician Relationship Specialty Start Date End Date Artie Meehan MD [address] [place] [address] [place] [address] PCP - General Internal Medicine 10/26/17 06/03/21 Laura Mock MD, DMD 1 [facility] [address] [place] [address] [email or web address] PCP - General Internal Medicine 06/04/21 11/11/23 Pcp, Unknown PCP - General 11/12/23 11/16/23 Laura Mock MD, DMD 1 [facility] [address] [place] Arredondo [address] [email or web address] PCP - General Internal Medicine 11/17/23 12/28/23 Pcp, Unknown PCP - General 02/28/24 03/04/24 Nicole Newell MD [address] [place] [address] PCP - General 03/05/24 05/17/24 Laura Mock MD, DMD [address] [address] [email or web address] PCP - General Internal Medicine 05/18/24 Artie Meehan MD [address] [place] [address] [place] [address] Internal Medicine 10/26/17 04/23/22 Rina Swenson MD [address] [place] [address] [place] [address] Psychiatry 07/09/17 Laura Mock MD, DMD 1 [facility] [address] [place] [address] [email or web address] [employer] Attributed Provider 09/01/21 07/03/23 Laura Mock MD, DMD 1 [facility] [address] [place] [address] [place] [address] [email or web address] Insurance Assigned Provider 05/31/23 03/01/24 Jakob Bob MD 75 [place] [address] [email or web address] Cardiology 08/22/23 Jose Cruz MD [address] [place] [address], [address] [place] [address] [email or web address] Cardiology 08/22/23 Laura Mock MD, DMD [address] [place] [address] [address] [place] [address] [email or web address] [employer] Attributed Provider 09/01/21 07/03/23 [facility] [phone]. Consulting Provider 08/22/23 [facility] Connect 12/24/23 03/11/24 Cyril Morales [address] [place] [phone] Nurse Practitioner 02/27/24 documented as of this encounter Additional Source Comments The information contained in this document represents components of the legal health record. It is not the complete legal health record.[facility]
--- OUTSIDE RECORDS SUMMARY | 2024-10-22 10:59 | XMS_ITS | Encounter Summary ---
Author Organization [facility] Address [facility] [employer] [facility] [address] [place] [address] Phone Care Team Providers Care Outside Sales Account Representative Name Role Phone Artie Meehan MD Primary Care Provider Artie Meehan MD Unavailable Rina Swenson MD Unavailable Laura Mock MD, DMD Primary Car e Provider Laura Mock MD, DMD Unavailable Laura Mock MD, DMD Unavailable Jakob Bob MD Unavailable [phone] Joes Cruz MD Unavailable [phone] Laura Mock MD, DMD Unavailable Pcp, Unknown Primary Care Provider UnavailLaura Ascencio MD, DMD Primary Car e Provider Pcp, Unknown Primary Care Provider UnavailNicole Arguello MD Primary Care Provide r Laura Mock MD, DMD Primary Car e Provider Encounter Details Date Type Department Care Team (Late st Contact Info) Description 01/06/2018 Procedure Pass [facility] Radiology [address] [place] [address] Social History Tobacco Use Types Packs/Day Years [...] Upcoming Encounters Date Type Department Care Team ([facility] Contact Info) Description 05/24/2024 Procedure Pass [facility] Radiology [address] [place] [address] 11/24/2024 1:15 PM EDT Appointment [facility] Radiology [address] [place] [address] Jim Zacarias MD [address] [address] [email or web address] 11/24/2024 2:15 PM EDT Office Visit [facility] Thoracic Surgery 15 [facility] 204 [place] [address] Jim Zacarias MD [address] [address] [email or web address] 01/31/2025 1:00 PM EST Office Visit [facility] Cardiovascular Medicine 32 [facility], 5th Floor, [address] [place] [address] Karena Betancur MD 55 [facility] [address] [place] [address] [email or web address] Scheduled Procedures Name Priority Associated Diagnoses Date/Ti me COLONOSCOPY Abnormal colonoscopy documented as of this encounter Visit Diagnoses Not on filedocumented in this encounter Additional Health Concerns Infection Onset Date Last Indicated Resolved Time CoV-Presumed 03/23/2022 03/23/2022 04/13/2022 1:23 AM EST CoV-Risk 11/12/2023 11/12/2023 11/12/2023 5:12 PM EDT COVID-19 11/12/2023 11/12/2023 12/03/2023 1:21 AM EDT documented as of this encounter Care Teams Outside Sales Account Representative Relationship Specialty Start Date End Date Artie Meehan MD [address] [place] [address] Dr Dior [address] [place] [address] PCP - General Internal Medicine 10/26/17 06/03/21 Laura Mock MD, DMD [address] [address] [email or web address] PCP - General Internal Medicine 06/04/21 11/11/23 Pcp, Unknown PCP - General 11/12/23 11/16/23 Laura Mock MD, DMD [address] [address] [email or web address] PCP - General Internal Medicine 11/17/23 12/28/23 Pcp, Unknown PCP - General 02/28/24 03/04/24 [place] [address] [address] PCP - General 03/05/24 05/17/24 Laura Mock MD, DMD [address] [address] [email or web address] PCP - General Internal Medicine 05/18/24 Artie Meehan MD [address] [place] [address] [place] [address] Internal Medicine 10/26/17 04/23/22 Rina Swenson MD [address] [place] [address] [place] [address] Psychiatry 07/09/17 Laura Mock MD, DMD [address] [address] [email or web address] Attributed Provider 09/01/21 07/03/23 Laura Mock MD, DMD [address] [address] [email or web address] Insurance Assigned Provider 05/31/23 03/01/24 Jakob Bob MD [address] [place] [address] [email or web address] Cardiology 08/22/23 Jose Cruz MD [address] [place] [address] Cardiology 08/22/23 Laura Mock MD, DMD [address] [address] [email or web address] Attributed Provider 09/01/21 07/03/23 [facility] [phone]. Consulting Provider 08/22/23 [facility] Connect 12/24/23 03/11/24 Cyril Morales [address] [place] [phone] Nurse Practitioner 02/27/24 documented as of this encounter Additional Source Comments The information contained in this document represents components of the legal health record. It is not the complete legal health record.[facility]
[2024-10-28 14:19] LABS: Prothrombin Time Whole Bld POC 33.6 sec (11.1-13.5); ~PT, ~INR - Anti Coag Clinic 2.8 (0.9-1.1)
--- NOTE | 2024-10-28 14:26 | MHC.OFFVISCO ---
Intake Intake Visit Reasons: Anticoagulation Allergies latex Allergy (Intermediate, Verified 10/28/24 14:12) Rash Medication List - Last Reconciled 10/28/24 by Chayito Moctezuma, RN acetaminophen 500 mg PO Q6H PRN amoxicillin 2,000 mg (4 x 500 mg) PO ONCE 1 day ascorbate calcium (vitamin C) 1 g PO DAILY bupropion HCl XL (Wellbutrin XL) 300 mg PO QAM clonazepam 0.5 mg PO BID PRN cyanocobalamin (vitamin B-12) PO folic acid 0.8 mg PO DAILY lisinopril 10 mg PO BID warfarin See Protocol 4 mg on Mondays, Wednesdays and Fridays then 3 mg on Tuesdays, , Saturdays and Sundays 30 days Nursing Note INR: 2.8 in therapeutic range of 2-3 Medications and supplements reviewed No changes in health, diet, medications, or supplements, Pt is under a lot of stress with daughter who is ill and lives with pt. Pt states she is not sure if she followed the dosing schedule for warfarin as directed because of the stress. Her INR is in range and she was surprised. Denies any signs and symptoms of bleeding or bruising or clotting. 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
--- OUTSIDE RECORDS SUMMARY | 2024-10-28 15:18 | XMS_ITS | Encounter Summary ---
Author Organization [facility] Address [address] [employer] [facility] [address] [place] [address] Phone Care Team Providers Care Choral Director Name Role Phone Artie Meehan MD Primary Care Provider Artie Meehan MD Unavailable Rina Swenson MD Unavailable Laura Mock MD, DMD Primary Car e Provider Laura Mock MD, DMD Unavailable Laura Mock MD, DMD Unavailable Jakob Bob MD Unavailable Jose Cruz MD Unavailable [phone] Laura Mock MD, DMD Unavailable Pcp, Unknown Primary Care Provider UnavailLaura Ascencio MD, DMD Primary Car e Provider Pcp, Unknown Primary Care Provider UnavailNicole Arguello MD Primary Care Provide r Laura Mock MD, DMD Primary Car e Provider Encounter Details Date Type Department Care Team (Late st Contact Info) Description 11/15/2020 Transcribe Orders Virtual Department 30 [place] [address] Artie Meehan MD [address] [place] [address] [place] [address] Asymptomatic menopausal state (Primary Dx); Age-related osteoporosis [...] Procedure Pass [facility] Radiology [address] [place] [address] 11/24/2024 1:15 PM EDT Appointment [facility] Radiology [address] [place] [address] Jim Zacarias MD [address] [address] [email or web address] 11/24/2024 2:15 PM EDT Office Visit [facility] Thoracic Surgery 15 [facility] 204 [place] [address] Jim Zacarias MD [address] [address] [email or web address] 01/31/2025 1:00 PM EST Office Visit [facility] Cardiovascular Medicine 32 [facility], 5th Floor, [address] [place] [address] Karena Betancur MD 55 [facility] [address] [place] [address] [email or web address] Scheduled Procedures Name [...] bone mineral density was calculated at 0.409 gm/cm5trny a T- score of -4 falling within [...] 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 Atrie Meehan MD IMG BD BONE DENSITY DEXA [...] documented as of this encounter Care Teams Choral Director Relationship Specialty Start Date End Date Artie Meehan MD [address] [place] [address] [place] [address] PCP - General Internal Medicine 10/26/17 06/03/21 Laura Mock MD, DMD [address] [place] [address] [place] [address] [email or web address] PCP - General Internal Medicine 06/04/21 11/11/23 Pcp, Unknown PCP - General 11/12/23 11/16/23 Laura Mock MD, DMD 1 [facility] [address] [place] [address] [email or web address] PCP - General Internal Medicine 11/17/23 12/28/23 Pcp, Unknown PCP - General 02/28/24 03/04/24 Nicole Newell MD [address] [place] [address] PCP - General 03/05/24 05/17/24 Laura Mock MD, DMD [address] [address] [email or web address] PCP - General Internal Medicine 05/18/24 Artie Meehan MD [address] [place] [address] Dr Dior [address] [place] [address] Internal Medicine 10/26/17 04/23/22 Rina Swenson MD [address] [place] [address] Dr Dior [address] [place] [address] Psychiatry 07/09/17 Laura Mock MD, DMD [address] [address] [email or web address] Partners Attributed Provider 09/01/21 07/03/23 Laura Mock MD, DMD 1 [facility] [address] [place] [address] [place] [address] [email or web address] Insurance Assigned Provider 05/31/23 03/01/24 Jakob Bob MD [address] [place] [address] [email or web address] Cardiology 08/22/23 Jose Cruz MD [address] [place] [address] [address] [place] [address] [email or web address] Cardiology 08/22/23 Laura Mock MD, DMD [address] [address] [email or web address] [employer] Attributed Provider 09/01/21 07/03/23 [place] [facility] [phone]. Consulting Provider 08/22/23 [facility] Connect 12/24/23 03/11/24 Cyril Morales [address] [place] [phone] Nurse Practitioner 02/27/24 documented as of this encounter Additional Source Comments The information contained in this document represents components of the legal health record. It is not the complete legal health record.[facility]
--- OUTSIDE RECORDS SUMMARY | 2024-10-28 15:18 | XMS_ITS | Encounter Summary ---
Author Organization [facility] Address [facility] [email or web address] [facility] [address] [place] [address] Phone Care Team Providers Care Investment Fund Manager Name Role Phone Artie Meehan MD Primary Care Provider [phone] Artie Meehan MD Unavailable Rina Swenson MD Unavailable [phone] Laura Mock MD, DMD Primary Car e [...] (Late st Contact Info) Description 12/09/2017 Telephone [facility] Urology [address] [facility] ASB2-3 [place] [address] De Los Santos Maureen Tristan 15 [place] [address] [email or web address] Question regarding Symtoms (Former pt. [...] Description 05/24/2024 Procedure Pass [facility] Radiology [address] [place] [address] 11/24/2024 1:15 PM EDT Appointment [facility] Radiology [address] [place] [address] Jim Zacarias MD [address] [place] [address] [email or web address] 11/24/2024 2:15 PM EDT Office Visit [facility] Thoracic Surgery 15 [facility] PPB 204 [place] [address] Jim Zacarias MD [address] [address] [email or web address] 01/31/2025 1:00 PM EST Office Visit [facility] Cardiovascular Medicine 32 [facility], 5th Floor, [address] [place] [address] Karena Betancur MD [address] [facility] 5B [place] [address] [email or web address] Scheduled Procedures Name Priority Associated [...] documented as of this encounter Care Teams Investment Fund Manager Relationship Specialty Start Date End Date Artie Meehan MD [address] [place] [address] PCP - General Internal Medicine 10/26/17 06/03/21 Laura Mock MD, DMD [address] [address] [email or web address] PCP - General Internal Medicine 06/04/21 11/11/23 Pcp, Unknown PCP - General 11/12/23 11/16/23 Laura Mock MD, DMD [address] [address] [email or web address] du PCP - General Internal Medicine 11/17/23 12/28/23 Pcp, Unknown PCP - General 02/28/24 03/04/24 Nicole Newell MD [address] [place] [address] PCP - General 03/05/24 05/17/24 Laura Mock MD, DMD [address] [address] [email or web address] du PCP - General Internal Medicine 05/18/24 Artie Meehan MD [address] [place] [address] [place] [address] Internal Medicine 10/26/17 04/23/22 Rina Swenson MD [address] [place] [address] [place] [address] Psychiatry 07/09/17 Laura Mock MD, DMD [address] [address] [email or web address]. du Partners Attributed Provider 09/01/21 07/03/23 Laura Mock MD, DMD [address] [address] [email or web address]. du Insurance Assigned Provider 05/31/23 03/01/24 Jakob Bob MD [address] [place] [address] [email or web address] Cardiology 08/22/23 Jose Cruz MD [address] [place] [address] [email or web address] Cardiology 08/22/23 Laura Mock MD, DMD [address] [address] [email or web address] du [employer] Attributed Provider 09/01/21 07/03/23 [facility] [phone]. Consulting Provider 08/22/23 [facility] Connect 12/24/23 03/11/24 Cyril Morales [address] [place] [address] Nurse Practitioner 02/27/24 documented as of this encounter Additional Source Comments The information contained in this document represents components of the legal health record. It is not the complete legal health record.[facility]
--- OUTSIDE RECORDS SUMMARY | 2024-10-28 15:18 | XMS_ITS | Encounter Summary ---
Author Organization [facility] Address [address] [facility] [address] [place] [address] Phone Care Team Providers Care Plate Inspector Name Role Phone Artie Meehan MD Primary Care Provider Artie Meehan MD Unavailable Rina Swenson MD Unavailable Laura Mock MD, DMD Primary Car e Provider Laura Mock MD, DMD Unavailable Laura Mock MD, DMD Unavailable Jakob Bob MD Unavailable [phone] Jose Cruz MD Unavailable [phone] Laura Mock MD, DMD Unavailable Pcp, Unknown Primary Care Provider UnavailLaura Ascencio MD, DMD Primary Car e Provider Pcp, Unknown Primary Care Provider UnavailNicole Arguello MD Primary Care Provide r Laura Mock MD, DMD Primary Car e Provider Encounter Details Date Type Department Care Team (Late st Contact Info) Description 07/06/2020 Procedure Pass [facility] [address] [place] [address] Social History Tobacco Use Types Packs/Day Years [...] Upcoming Encounters Date Type Department Care Team ([facility] Contact Info) Description 05/24/2024 Procedure Pass [facility] Radiology [address] [place] [address] 11/24/2024 1:15 PM EDT Appointment [facility] Radiology [address] [place] [address] Jim Zacarias MD [id number] [place] [address] [email or web address] 11/24/2024 2:15 PM EDT Office Visit [facility] Thoracic Surgery 15 [facility] 204 [place] [address] Jim Zacarias MD [phone] [place] [address] [email or web address] 01/31/2025 1:00 PM EST Office Visit [facility] Cardiovascular Medicine 32 [facility], 5th Floor, [address] [place] [address] Karena Betancur MD 55 [facility] 5[address] [place] [address] [email or web address] Scheduled Procedures Name Priority Associated [...] documented as of this encounter Care Teams Plate Inspector Relationship Specialty Start Date End Date Artie Meehan MD [address] [place] [address] Dr Dior [address] [place] [address] PCP - General Internal Medicine 10/26/17 06/03/21 Laura Mock MD, DMD [address] [address] [email or web address] PCP - General Internal Medicine 06/04/21 11/11/23 Pcp, Unknown PCP - General 11/12/23 11/16/23 Laura Mock MD, DMD [address] [address] [email or web address] du PCP - General Internal Medicine 11/17/23 12/28/23 Pcp, Unknown PCP - General 02/28/24 03/04/24 [place] [address] [address] PCP - General 03/05/24 05/17/24 Laura Mock MD, DMD [address] [address] [email or web address] du PCP - General Internal Medicine 05/18/24 Artie Meehan MD [address] [place] [address] [place] [address] Internal Medicine 10/26/17 04/23/22 Rina Swenson MD [address] [place] [address] [place] [address] Psychiatry 07/09/17 Laura Mock MD, DMD [address] [address] [email or web address] Partners Attributed Provider 09/01/21 07/03/23 Laura Mock MD, DMD [address] [address] [email or web address] du Insurance Assigned Provider 05/31/23 03/01/24 Jakob Bob MD [address] [place] [address] [email or web address] Cardiology 08/22/23 Jose Cruz MD [address] [place] [address] Cardiology 08/22/23 Laura Mock MD, DMD [address] [address] [email or web address] Partners Attributed Provider 09/01/21 07/03/23 [place] [facility] [phone]. Consulting Provider 08/22/23 [facility] Connect 12/24/23 03/11/24 Cyril Morales [facility]6 [place] [address] Nurse Practitioner 02/27/24 documented as of this encounter Additional Source Comments The information contained in this document represents components of the legal health record. It is not the complete legal health record.[facility]
--- OUTSIDE RECORDS SUMMARY | 2024-10-28 15:18 | XMS_ITS | Encounter Summary ---
Author Organization [facility] Address [facility] [address] [address] Phone Care Team Providers Care Box Chipper Name Role Phone Artie Meehan MD Unavailable [...] st Contact Info) Description 04/05/2022 Anti-coag visit [facility] Anticoagulation Clinic [address] [place] [address] Melvin Stewart, [facility] [address] [place] [address] [email or web address] Social History Tobacco Use Types Packs/Day Years [...] st Contact Info) Description 05/24/2024 Procedure Pass [facility] Radiology [address] [place] [address] 11/24/2024 1:15 PM EDT Appointment [facility] Radiology [address] [place] [address] Jim Zacarias MD [address] [address] [email or web address] 11/24/2024 2:15 PM EDT Office Visit [facility] Thoracic Surgery 15 [facility] 204 [place] [address] Jim Zacarias MD [address] [address] [email or web address] 01/31/2025 1:00 PM EST Office Visit [facility] Cardiovascular Medicine 32 [facility], 5th Floor, [address] [place] [address] Karena Betancur MD [address] [facility] 5B [place] [address] [email or web address] Scheduled Procedures Name Priority Associated Diagnoses [...] documented as of this encounter Care Teams Box Chipper Relationship Specialty Start Date End Date Laura Mock MD, DMD [address] [address] [email or web address] du PCP - General Internal Medicine 06/04/21 11/11/23 Pcp, Unknown PCP - General 11/12/23 11/16/23 Laura Mock MD, DMD [address] [address] [email or web address] du PCP - General Internal Medicine 11/17/23 12/28/23 Pcp, Unknown PCP - General 02/28/24 03/04/24 [place] [address] [address] PCP - General 03/05/24 05/17/24 Laura Mock MD, DMD [address] [address] [email or web address] PCP - General Internal Medicine 05/18/24 Artie Meehan MD [address] [place] [address] [place] [address] Internal Medicine 10/26/17 04/23/22 Rina Swenson MD [address] [place] [address] [place] [address] Psychiatry 07/09/17 Laura Mock MD, DMD [address] [address] [email or web address] Partners Attributed Provider 09/01/21 07/03/23 Laura Mock MD, DMD [address] [address] [email or web address] du Insurance Assigned Provider 05/31/23 03/01/24 Jakob Bob MD [address] [place] [address] [email or web address] Cardiology 08/22/23 Jose Cruz MD [address] [place] [address] Cardiology 08/22/23 Laura Mock MD, DMD [address] [address] [email or web address] du Partners Attributed Provider 09/01/21 07/03/23 [place] [facility] [phone]. Consulting Provider 08/22/23 [facility] Connect 12/24/23 03/11/24 Cyril Morales [facility] [place] [address] Nurse Practitioner 02/27/24 documented as of this encounter Additional Source Comments The information contained in this document represents components of the legal health record. It is not the complete legal health record.[facility]
--- OUTSIDE RECORDS SUMMARY | 2024-10-28 15:18 | XMS_ITS | Encounter Summary ---
Author Organization [facility] Address [facility] [employer] [address] [address] Phone Care Team Providers Care Commercial Administrator Name Role Phone Artie Meehan MD Unavailable Rina Swenson MD Unavailable Laura Mock MD, DMD Primary Car e Provider Laura Mock MD, DMD Unavailable aLura Mock MD, DMD Unavailable Jakob Bob MD [...] st Contact Info) Description 05/24/2024 Procedure Pass [facility] Radiology [address] [place] [address] 11/24/2024 1:15 PM EDT Appointment [facility] Radiology [address] [place] [address] Jim Zacarias MD [address] [address] [email or web address] 11/24/2024 2:15 PM EDT Office Visit [facility] Thoracic Surgery 15 [facility] 204 [place] [address] Jim Zacarias MD [address] [address] [email or web address] 01/31/2025 1:00 PM EST Office [place] [facility] 32 [facility], 5th Floor, [address] [place] [address] Karena Betancur MD [address] [facility] 5[address] [place] [address] [email or web address] Scheduled Procedures Name Priority Associated [...] documented as of this encounter Care Teams Commercial Administrator Relationship Specialty Start Date End Date Laura Mock MD, DMD 1 [facility] [address] [place] [address] [email or web address] du PCP - General Internal Medicine 06/04/21 11/11/23 Pcp, Unknown PCP - General 11/12/23 11/16/23 Laura Mock MD, DMD [address] [address] [email or web address] du PCP - General Internal Medicine 11/17/23 12/28/23 Pcp, Unknown PCP - General 02/28/24 03/04/24 [place] [address] [address] PCP - General 03/05/24 05/17/24 Laura Mock MD, DMD [address] [address] [email or web address] du PCP - General Internal Medicine 05/18/24 Artie Meehan MD [address] [place] [address] [place] [address] Internal Medicine 10/26/17 04/23/22 Rina Swenson MD [address] [place] [address] [place] [address] Psychiatry 07/09/17 Laura Mock MD, DMD [address] [address] [email or web address] du Partners Attributed Provider 09/01/21 07/03/23 Laura Mock MD, DMD [address] [address] [email or web address] du Insurance Assigned Provider 05/31/23 03/01/24 Jakob Bob MD [address] [place] [address] [email or web address] Cardiology 08/22/23 Jose Cruz MD [address] [place] [address] [email or web address] Cardiology 08/22/23 Laura Mock MD, DMD [address] [address] [email or web address] du Partners Attributed Provider 09/01/21 07/03/23 [facility] [phone]. Consulting Provider 08/22/23 [facility] Connect 12/24/23 03/11/24 Cyril Morales [address] [place] [phone] Nurse Practitioner 02/27/24 documented as of this encounter Additional Source Comments The information contained in this document represents components of the legal health record. It is not the complete legal health record.[facility]
--- OUTSIDE RECORDS SUMMARY | 2024-10-28 15:18 | XMS_ITS | Encounter Summary ---
Author Organization [facility] Address [facility] Tucker Blair [address] [address] Phone Care Team Providers Care Hot Saw Operator Name Role Phone Artie Meehan MD Unavailable [...] st Contact Info) Description 02/18/2022 Anti-coag visit [facility] Anticoagulation Clinic [address] [place] [address] Rony Amaro, [facility] 1249 [facility] 3rd [place] [address] [email or web address] Social History Tobacco Use Types [...] [facility] Radiology [address] [place] [address] 11/24/2024 1:15 PM EDT Appointment [facility] Radiology [address] [place] [address] Jim Zacarias MD [address] [address] [email or web address] 11/24/2024 2:15 PM EDT Office Visit [facility] Thoracic Surgery 15 [facility] 204 [place] [address] Jim Zacarias MD [address] [address] [email or web address] 01/31/2025 1:00 PM EST Office Visit [facility] Cardiovascular Medicine 32 [facility], 5th Floor, [address] [place] [address] Karena Betancur MD 55 [facility] 5B [place] [address] [email or web address] Scheduled Procedures Name Priority Associated Diagnoses [...] of this encounter Care Teams Hot Saw Operator Relationship Specialty Start Date End Date Laura Mock MD, DMD [address] [address] [email or web address] du PCP - General Internal Medicine 06/04/21 11/11/23 Pcp, Unknown PCP - General 11/12/23 11/16/23 Laura Mock MD, DMD [address] [address] [email or web address] du PCP - General Internal Medicine 11/17/23 12/28/23 Pcp, Unknown PCP - General 02/28/24 03/04/24 [place] [address] [address] PCP - General 03/05/24 05/17/24 Laura Mock MD, DMD [address] [address] [email or web address] du PCP - General Internal Medicine 05/18/24 Artie Meehan MD [address] [place] [address] [place] [address] Internal Medicine 10/26/17 04/23/22 Rina Swenson MD [address] [place] [address] [place] [address] Psychiatry 07/09/17 Laura Mock MD, DMD [address] [address] [email or web address]. du Partners Attributed Provider 09/01/21 07/03/23 Laura Mock MD, DMD [address] [address] [email or web address]. du Insurance Assigned Provider 05/31/23 03/01/24 Jakob Bob MD [address] [place] [address] [email or web address] Cardiology 08/22/23 Jose Cruz MD [address] [place] [address] [email or web address] Cardiology 08/22/23 Laura Mock MD, DMD [address] [address] [email or web address]. du Partners Attributed Provider 09/01/21 07/03/23 [place] [facility] [phone]. Consulting Provider 08/22/23 [facility] Connect 12/24/23 03/11/24 Cyril Morales [address] [place] [phone] Nurse Practitioner 02/27/24 documented as of this encounter Additional Source Comments The information contained in this document represents components of the legal health record. It is not the complete legal health record.[facility]
--- OUTSIDE RECORDS SUMMARY | 2024-10-28 15:18 | XMS_ITS | Encounter Summary ---
Author Organization [facility] Address [facility] [employer] [address] [address] Phone Care Team Providers Care Engineering Analyst Name Role Phone Artie Meehan MD Unavailable Rina Swenson MD Unavailable Laura Mock MD, DMD Primary Car e Provider Laura Mock MD, DMD Unavailable Laura Mock MD, DMD Unavailable Jakob Bob MD Unavailable Jose Cruz MD Unavailable [phone] Laura Mock MD, DMD Unavailable Pcp, Unknown [...] Description 05/24/2024 Procedure Pass [facility] Radiology [address] [place] [address] 11/24/2024 1:15 PM EDT Appointment [facility] Radiology [address] [place] [address] Jim Zacarias MD [address] [address] [email or web address] 11/24/2024 2:15 PM EDT Office Visit [facility] Thoracic Surgery 15 [facility] 204 [place] [address] Jim Zacarias MD [address] [address] [email or web address] 01/31/2025 1:00 PM EST [facility] [place] [facility] [place] 32 [facility], 5th Floor, [address] [place] [address] Karena Betancur MD 55 [facility] 5B [place] [address] [email or web address] Scheduled Procedures Name Priority Associated [...] documented as of this encounter Care Teams Engineering Analyst Relationship Specialty Start Date End Date Laura Mock MD, DMD 1 [facility] 225 [place] [address] [email or web address] du PCP - General Internal Medicine 06/04/21 11/11/23 Pcp, Unknown PCP - General 11/12/23 11/16/23 Laura Mock MD, DMD [address] [address] [email or web address] PCP - General Internal Medicine 11/17/23 12/28/23 Pcp, Unknown PCP - General 02/28/24 03/04/24 [place] [address] [address] PCP - General 03/05/24 05/17/24 Laura Mock MD, DMD [address] [address] [email or web address] du PCP - General Internal Medicine 05/18/24 Artie Meehan MD [address] [place] [address] [place] [address] Internal Medicine 10/26/17 04/23/22 Rina Swenson MD [address] [place] [address] [place] [address] Psychiatry 07/09/17 Laura Mock MD, DMD [address] [address] [email or web address] du Partners Attributed Provider 09/01/21 07/03/23 Laura Mock MD, DMD [address] [address] [email or web address]. du Insurance Assigned Provider 05/31/23 03/01/24 Jakob Bob MD [address] [place] [address] [email or web address] Cardiology 08/22/23 Jose Cruz MD [address] [place] [address] [email or web address] Cardiology 08/22/23 Laura Mock MD, DMD [address] [address] [email or web address] du Partners Attributed Provider 09/01/21 07/03/23 [facility] [phone]. Consulting Provider 08/22/23 [facility] Connect 12/24/23 03/11/24 Cyril Morales [address] [place] [phone] Nurse Practitioner 02/27/24 documented as of this encounter Additional Source Comments The information contained in this document represents components of the legal health record. It is not the complete legal health record.[facility]
--- OUTSIDE RECORDS SUMMARY | 2024-10-28 15:18 | XMS_ITS | Encounter Summary ---
Author Organization [facility] Address [address] [place] [address] Phone Care Team Providers Care Reference Data Expert Name Role Phone Artie Meehan MD Unavailable Rina Swenson MD Unavailable Laura Mock MD, DMD Primary Car e Provider Laura Mock MD, DMD Unavailable Laura Mock MD, DMD Unavailable Jakob Bob MD Unavailable Jose Cruz MD Unavailable [phone] Laura Mock MD, DMD Unavailable Pcp, Unknown Primary Care Provider UnavailLaura Ascencio MD, DMD Primary Car e Provider Pcp, Unknown Primary Care Provider UnavailNicole Arguello MD Primary Care Provide r Laura Mock MD, DMD Primary Car e Provider Encounter Details Date Type Department Care Team (Late st Contact Info) Description 01/16/2022 Anti-coag visit VIRTUAL DEPARTMENT Marek Elias, PharmD [address] [place] [address] [email or web address] Social History Tobacco Use Types Packs/Day [...] st Contact Info) Description 05/24/2024 Procedure Pass [facility] Radiology [address] [place] [address] 11/24/2024 1:15 PM EDT Appointment [facility] Radiology [address] [place] [address] Jim Zacarias MD [address] [address] [email or web address] 11/24/2024 2:15 PM EDT Office Visit [facility] Thoracic Surgery 15 [facility] 204 [place] [address] Jim Zacarias MD [address] [address] [email or web address] 01/31/2025 1:00 PM EST Office Visit [facility] Cardiovascular Medicine 32 [facility], 5th Floor, [address] [place] [address] Karena Betancur MD 55 [facility] 5B [place] [address] [email or web address] Scheduled Procedures Name Priority Associated Diagnoses Date/Ti [...] documented as of this encounter Care Teams Reference Data Expert Relationship Specialty Start Date End Date Laura Mock MD, DMD [address] [address] [email or web address] PCP - General Internal Medicine 06/04/21 11/11/23 Pcp, Unknown PCP - General 11/12/23 11/16/23 Laura Mock MD, DMD [address] [address] [email or web address] PCP - General Internal Medicine 11/17/23 12/28/23 Pcp, Unknown PCP - General 02/28/24 03/04/24 [place] [address] [address] PCP - General 03/05/24 05/17/24 Laura Mock MD, DMD [address] [address] [email or web address] PCP - General Internal Medicine 05/18/24 Artie Meehan MD [address] [place] [address] [place] [address] Internal Medicine 10/26/17 04/23/22 Rina Swenson MD [address] [place] [address] Dr Dior Elisabeth PRATIBHAMARILUYOLIE [address] Psychiatry 07/09/17 Laura Mock MD, DMD [address] [address] [email or web address] Partners Attributed Provider 09/01/21 07/03/23 Laura Mock MD, DMD [address] [address] [email or web address] du Insurance Assigned Provider 05/31/23 03/01/24 Jakob Bob MD [address] [place] [address] [email or web address] Cardiology 08/22/23 Jose Cruz MD [address] [place] [address] Cardiology 08/22/23 Laura Mock MD, DMD [address] [address] [email or web address] Attributed Provider 09/01/21 07/03/23 [facility] [facility] [phone]. Consulting Provider 08/22/23 [facility] Connect 12/24/23 03/11/24 Cyril Morales [address] [place] [address] Nurse Practitioner 02/27/24 documented as of this encounter Additional Source Comments The information contained in this document represents components of the legal health record. It is not the complete legal health record.[facility]
--- OUTSIDE RECORDS SUMMARY | 2024-10-28 15:19 | XMS_ITS | Encounter Summary ---
Author Organization [facility] Address [address] [place] [address] Phone Care Team Providers Care Travelift Operator Name Role Phone Artie Meehan MD [...] Junior, PharmD [address] [place] [address] [email or web address] Social History Tobacco Use Types [...] st Contact Info) Description 05/24/2024 Procedure Pass [facility] Radiology [address] [place] [address] 11/24/2024 1:15 PM EDT Appointment [facility] Radiology [address] [place] [address] Jim Zacarias MD [address] [address] [email or web address] 11/24/2024 2:15 PM EDT Office Visit [facility] Thoracic Surgery 15 [facility] 204 [place] [address] Jim Zacarias MD [address] [address] [email or web address] 01/31/2025 1:00 PM EST Office Visit [facility] Cardiovascular Medicine 32 [facility], 5th Floor, [address] [place] [address] Karena Betancur MD 55 [facility] 5B [place] [address] [email or web address] Scheduled Procedures Name Priority Associated Diagnoses Date/Ti [...] documented as of this encounter Care Teams Travelift Operator Relationship Specialty Start Date End Date Laura Mock MD, DMD [address] [address] [email or web address] PCP - General Internal Medicine 06/04/21 11/11/23 Pcp, Unknown PCP - General 11/12/23 11/16/23 Laura Mock MD, DMD [address] [place] [address] [email or web address] PCP - General Internal Medicine 11/17/23 12/28/23 Pcp, Unknown PCP - General 02/28/24 03/04/24 [place] [address] [place] [address] PCP - General 03/05/24 05/17/24 Laura Mock MD, DMD [address] [address] [email or web address] PCP - General Internal Medicine 05/18/24 Artie Meehan MD [address] [place] [address] Dr [place]ior [facility] [place] [address] Internal Medicine 10/26/17 04/23/22 Rina Swenson MD [address] [place] [address] [place] [address] Psychiatry 07/09/17 Laura Mock MD, DMD [address] [address] [email or web address] Attributed Provider 09/01/21 07/03/23 Laura Mock MD, DMD [address] [address] [email or web address] du Insurance Assigned Provider 05/31/23 03/01/24 Jakob Bob MD [address] [place] [address] [email or web address] Cardiology 08/22/23 Jose Cruz MD [address] [place] [address] Cardiology 08/22/23 Laura Mock MD, DMD [address] [address] [email or web address] Partners Attributed Provider 09/01/21 07/03/23 [place] [facility] [phone]. Consulting Provider 08/22/23 [facility] Connect 12/24/23 03/11/24 Cyril Morales [address] [place] [address] Nurse Practitioner 02/27/24 documented as of this encounter Additional Source Comments The information contained in this document represents components of the legal health record. It is not the complete legal health record.[facility]
--- OUTSIDE RECORDS SUMMARY | 2024-10-28 15:19 | XMS_ITS | Encounter Summary ---
Author Organization [facility] Address [facility] [employer] [address] [address] Phone Care Team Providers Care Piano Assembler Name Role Phone Artie Meehan MD Unavailable Rina Swenson MD Unavailable [phone] Laura Mock MD, DMD Primary Car e Provider Laura Mock MD, DMD Unavailable Laura Mock MD, DMD Unavailable Jakob Bob MD Unavailable [phone] Jose Cruz MD Unavailable Laura Mock MD, DMD Unavailable Pcp, Unknown Primary Care Provider UnavailLaura Ascencio MD, DMD Primary Car e Provider Pcp, Unknown Primary Care Provider UnavailNicole Arguello MD Primary Care Provide r Laura Mock MD, DMD Primary Car e Provider Encounter Details Date Type Department Care Team (Late st Contact Info) Description 09/13/2021 Anti-coag visit [facility] Anticoagulation Clinic [address] [place] [address] Abbie Prieto, PharmD 1249 [facility] [address] [place] [address] [email or web address] Social History Tobacco Use Types Packs/Day [...] Upcoming Encounters Date Type Department Care Team ([facility] st Contact Info) Description 05/24/2024 Procedure Pass [facility] Radiology [address] [place] [address] 11/24/2024 1:15 PM EDT Appointment [facility] Radiology 75 [place] [address] Jim Zacarias MD [address] [place] [address] [email or web address] 11/24/2024 2:15 PM EDT Office Visit [facility] Thoracic Surgery 15 [facility] 204 [place] [address] Jim Zacarias MD [address] [address] [email or web address] 01/31/2025 1:00 PM EST Office Visit [facility] Cardiovascular Medicine 32 [facility], 5th Floor, [address] [place] [address] Karena Betancur MD 55 [facility] 5B [place] [address] [email or web address] Scheduled Procedures Name Priority Associated Diagnoses [...] documented as of this encounter Care Teams Piano Assembler Relationship Specialty Start Date End Date Laura Mock MD, DMD [address] [address] [email or web address] PCP - General Internal Medicine 06/04/21 11/11/23 Pcp, Unknown PCP - General 11/12/23 11/16/23 Laura Mock MD, DMD [address] [address] [email or web address] PCP - General Internal Medicine 11/17/23 12/28/23 Pcp, Unknown PCP - General 02/28/24 03/04/24 Nicole Newell MD [address] [place] [address] PCP - General 03/05/24 05/17/24 Laura Mock MD, DMD [address] [address] [email or web address] PCP - General Internal Medicine 05/18/24 Artie Meehan MD [address] [place] [address] Dr [facility] [address] [place] [address] Internal Medicine 10/26/17 04/23/22 Rina Swenson MD [address] [place] [address] [place] [address] Psychiatry 07/09/17 Laura Mock MD, DMD [address] [address] [email or web address] Partners Attributed Provider 09/01/21 07/03/23 Laura Mock MD, DMD [address] [address] [email or web address] du Insurance Assigned Provider 05/31/23 03/01/24 Jakob Bob MD [address] [place] [address] [email or web address] Cardiology 08/22/23 Jose Cruz MD [address] [place] [address] [place] [address] Cardiology 08/22/23 Laura Mock MD, DMD [address] [address] [email or web address] du Partners Attributed Provider 09/01/21 07/03/23 [place] [facility] [phone]. Consulting Provider 08/22/23 [facility] Connect 12/24/23 03/11/24 Cyril Morales [address] [place] [address] Nurse Practitioner 02/27/24 documented as of this encounter Additional Source Comments The information contained in this document represents components of the legal health record. It is not the complete legal health record.[facility]
--- OUTSIDE RECORDS SUMMARY | 2024-10-28 15:19 | XMS_ITS | Encounter Summary ---
Author Organization [facility] Address Count includes the [facility] [employer] [address] [address] Phone Care Team Providers Care Head Stock Operator Name Role Phone Rina Swenson MD Unavailable Laura Mock MD, DMD Primary Car e Provider Laura Mock MD, DMD Unavailable Laura Mock MD, DMD Unavailable Jakob Bob MD Unavailable [phone] Jose Cruz MD Unavailable Laura Mock MD, [...] st Contact Info) Description 05/24/2024 Procedure Pass [facility] Radiology 75 [place] [address] 11/24/2024 1:15 PM EDT Appointment [facility] Radiology 75 [place] [address] Jmi Zacarias MD [address] [address] [email or web address] 11/24/2024 2:15 PM EDT Office Visit [facility] Thoracic Surgery [address] [facility] 204 [place] [address] Jim Zacarias MD [address] [address] [email or web address] 01/31/2025 1:00 PM EST Office Visit [facility] Cardiovascular Medicine 32 [facility], 5th Floor, [address] [place] [address] Karena Betancur MD [address] [facility] [address] [place] [address] [email or web address] Scheduled Procedures Name Priority Associated [...] documented as of this encounter Care Teams Head Stock Operator Relationship Specialty Start Date End Date Laura Mock MD, DMD [address] [address] [email or web address] PCP - General Internal Medicine 06/04/21 11/11/23 Pcp, Unknown PCP - General 11/12/23 11/16/23 Laura Mock MD, DMD [address] [address] [email or web address] PCP - General Internal Medicine 11/17/23 12/28/23 Pcp, Unknown PCP - General 02/28/24 03/04/24 Nicole Newell MD [address] [place] [address] PCP - General 03/05/24 05/17/24 Laura Mock MD, DMD [address] [address] [email or web address] PCP - General Internal Medicine 05/18/24 Rina Swenson MD Psychiatry 07/09/17 Laura Mock MD, DMD [address] [address] [email or web address] Partners Attributed Provider 09/01/21 07/03/23 Laura Mock MD, DMD [address] [address] [email or web address] du Insurance Assigned Provider 05/31/23 03/01/24 Jakob Bob MD [address] [place] [address] [email or web address] Cardiology 08/22/23 Jose Cruz MD [address] [place] [address], [address] [address] [email or web address] Cardiology 08/22/23 Laura Mock MD, DMD [address] [address] [email or web address] Partners Attributed Provider 09/01/21 07/03/23 [facility] [phone]. Consulting Provider 08/22/23 [facility] Connect 12/24/23 03/11/24 Cyril Morales [address] [place] [address] Nurse Practitioner 02/27/24 documented as of this encounter Additional Source Comments The information contained in this document represents components of the legal health record. It is not the complete legal health record.[facility]
--- OUTSIDE RECORDS SUMMARY | 2024-10-28 15:19 | XMS_ITS | Encounter Summary ---
Author Organization [facility] Address [address] [place] [facility] [address] [place] [address] Phone Care Team Providers Care Counseling Director Name Role Phone Artie Meehan MD Primary Care Provider Artie Meehan MD Unavailable Rina Swenson MD Unavailable Laura Mock MD, DMD Primary Car e Provider Laura Mock MD, DMD Unavailable Laura Mock MD, DMD Unavailable Jakob Bob MD Unavailable [phone] Jose Cruz MD Unavailable [phone] Laura Mock MD, DMD Unavailable Pcp, Unknown Primary Care Provider UnavailLaura Ascencio MD, DMD Primary Car e Provider Pcp, Unknown Primary Care Provider UnavailNicole Arguello MD Primary Care Provide r Laura Mock MD, DMD Primary Car e Provider Encounter Details Date Type Department Care Team (Late st Contact Info) Description 12/16/2019 Ancillary Orders Virtual Department 30 [place] [address] Artie Meehan MD [address] [place] [address] [place] [address] Breast screening Social History Tobacco Use Types [...] Type Department Care Team ([facility] Contact Info) Description 05/24/2024 Procedure Pass [facility] Rad[facility] [address] [place] [address] 11/24/2024 1:15 PM EDT Appointment [facility] Radiology [address] [place] [address] Jim Zacarias MD [address] [address] [email or web address] 11/24/2024 2:15 PM EDT Office Visit [facility] Thoracic Surgery 15 [facility] 204 [place] [address] Jim Zacarias MD [address] [place] [address] [email or web address] 01/31/2025 1:00 PM EST Office Visit [facility] Medicine 32 [facility], 5th Floor, [address] [place] [address] Karena Betancur MD 55 [facility] 5B [place] [address] FRANK@[email or web address] Scheduled Procedures Name Priority Associated Diagnoses Date/Ti nm COLONOSCOPY Abnormal colonoscopy documented as of this [...] documented as of this encounter Care Teams Counseling Director Relationship Specialty Start Date End Date Artie Meehan MD [address] [place] [address] [place] [address] PCP - General Internal Medicine 10/26/17 06/03/21 Laura Mock MD, DMD [address] [address] [email or web address] du PCP - General Internal Medicine 06/04/21 11/11/23 Pcp, Unknown PCP - General 11/12/23 11/16/23 Laura Mock MD, DMD [address] [address] [email or web address] du PCP - General Internal Medicine 11/17/23 12/28/23 Pcp, Unknown PCP - General 02/28/24 03/04/24 [place] [address] [address] PCP - General 03/05/24 05/17/24 Laura Mock MD, DMD [address] [address] [email or web address] PCP - General Internal Medicine 05/18/24 Artie Meehan MD [address] [place] [address] [place] [address] Internal Medicine 10/26/17 04/23/22 Rina Swenson MD [address] [place] [address] [place] [address] Psychiatry 07/09/17 Laura Mock MD, DMD 1 [facility] [address] [place] [address] [email or web address] du Partners Attributed Provider 09/01/21 07/03/23 Laura Mock MD, DMD [address] [address] [email or web address] du Insurance Assigned Provider 05/31/23 03/01/24 Jakob Bob MD [address] [place] [address] [email or web address] Cardiology 08/22/23 Jose Cruz MD [address] [place] [address] Cardiology 08/22/23 Laura Mock MD, DMD [address] [address] [email or web address] Partners Attributed Provider 09/01/21 07/03/23 [place] [facility] [phone]. Consulting Provider 08/22/23 [facility] Connect 12/24/23 03/11/24 Cyril Morales [address] [place] [address] Nurse Practitioner 02/27/24 documented as of this encounter Additional Source Comments The information contained in this document represents components of the legal health record. It is not the complete legal health record.[facility]
--- OUTSIDE RECORDS SUMMARY | 2024-10-28 15:19 | XMS_ITS | Encounter Summary ---
Author Organization [facility] Address Count includes the [facility] [employer] [address] [address] Phone Care Team Providers Care Sanitarian Aide Name Role Phone Rina Swenson MD Unavailable [...] st Contact Info) Description 05/24/2024 Procedure Pass [facility] Radiology 75 [place] [address] 11/24/2024 1:15 PM EDT Appointment [facility] Radiology 75 [place] [address] Jim Zacarias MD [address] [address] [email or web address] 11/24/2024 2:15 PM EDT Office Visit [facility] Thoracic Surgery 15 [facility] 204 [place] [address] Jim Zacarias MD [address] [address] [email or web address] 01/31/2025 1:00 PM EST Office Visit [facility] Cardiovascular Medicine 32 [facility], 5th Floor, [address] [place] [address] Karena Betancur MD 55 [facility] 5B [place] [address] [email or web address] Scheduled Procedures Name Priority Associated Diagnoses Date/Ti [...] documented as of this encounter Care Teams Sanitarian Aide Relationship Specialty Start Date End Date Laura Mock MD, DMD [address] [address] [email or web address] PCP - General Internal Medicine 06/04/21 11/11/23 Pcp, Unknown PCP - General 11/12/23 11/16/23 Laura Mock MD, DMD [address] [address] [email or web address] PCP - General Internal Medicine 11/17/23 12/28/23 Pcp, Unknown PCP - General 02/28/24 03/04/24 Nicoel Newell MD [address] [place] [address] PCP - General 03/05/24 05/17/24 Laura Mock MD, DMD [address] [address] [email or web address] PCP - General Internal Medicine 05/18/24 Rina Swenson MD Psychiatry 07/09/17 Laura Mock MD, DMD [address] [address] [email or web address] du Partners Attributed Provider 09/01/21 07/03/23 Laura Mock MD, DMD [address] [address] [email or web address]. du Insurance Assigned Provider 05/31/23 03/01/24 Jakob Bob MD [address] [place] [address] [email or web address] Cardiology 08/22/23 Jose Cruz MD [address] [place] [address] [email or web address] Cardiology 08/22/23 Laura Mock MD, DMD [address] [address] [email or web address] du [employer] Attributed Provider 09/01/21 07/03/23 [facility] [phone]. Consulting Provider 08/22/23 [facility] Connect 12/24/23 03/11/24 Cyril Morales [address] [place] [address] Nurse Practitioner 02/27/24 documented as of this encounter Additional Source Comments The information contained in this document represents components of the legal health record. It is not the complete legal health record.[facility]
--- OUTSIDE RECORDS SUMMARY | 2024-10-28 15:19 | XMS_ITS | Encounter Summary ---
Author Organization [facility] Address [facility] [employer] [facility] [address] [place] [address] Phone Care Team Providers Care Relationship Mgr Name Role Phone Rina Swenson MD Unavailable [phone] Laura Mock MD, DMD Primary Car e [...] st Contact Info) Description 12/25/2022 Procedure Pass [address] [address] Social History Tobacco Use Types Packs/Day Years [...] st Contact Info) Description 05/24/2024 Procedure Pass [facility] Radiology 75 [place] [address] 11/24/2024 1:15 PM EDT Appointment [facility] Radiology [address] [place] [address] Jim Zacarias MD [address] [address] [email or web address] 11/24/2024 2:15 PM EDT Office Visit [facility] Thoracic Surgery 15 [facility] 204 [place] [address] Jim Zacarias MD [address] [address] [email or web address] 01/31/2025 1:00 PM EST Office Visit [facility] Cardiovascular Medicine 32 [facility], 5th Floor, [address] [place] [address] Karena Betancur MD 55 [facility] [address] [address] [email or web address] Scheduled Procedures Name Priority Associated [...] documented as of this encounter Care Teams Relationship Mgr Relationship Specialty Start Date End Date Laura Mock MD, DMD [address] [address] [email or web address] du PCP - General Internal Medicine 06/04/21 11/11/23 Pcp, Unknown PCP - General 11/12/23 11/16/23 Laura Mock MD, DMD [address] [address] [email or web address] du PCP - General Internal Medicine 11/17/23 12/28/23 Pcp, Unknown PCP - General 02/28/24 03/04/24 [place] [address] [address] PCP - General 03/05/24 05/17/24 Laura Mock MD, DMD [address] [address] [email or web address] du PCP - General Internal Medicine 05/18/24 Rina Swenson MD Psychiatry 07/09/17 Laura Mock MD, DMD [address] [address] [email or web address] du Partners Attributed Provider 09/01/21 07/03/23 Laura Mock MD, DMD [address] [address] [email or web address] du Insurance Assigned Provider 05/31/23 03/01/24 Jakob Bob MD [address] [place] [address] [email or web address] Cardiology 08/22/23 Jose Cruz MD [address] [place] [address] [email or web address] Cardiology 08/22/23 Laura Mock MD, DMD [address] [address] [email or web address]. du Partners Attributed Provider 09/01/21 07/03/23 [place] [facility] [phone]. Consulting Provider 08/22/23 [facility] Connect 12/24/23 03/11/24 Cyril Morales [address] [place] [phone] Nurse Practitioner 02/27/24 documented as of this encounter Additional Source Comments The information contained in this document represents components of the legal health record. It is not the complete legal health record.[facility]
--- OUTSIDE RECORDS SUMMARY | 2024-10-28 15:19 | XMS_ITS | Encounter Summary ---
Author Organization [facility] Address [address] [place] [address] Phone Care Team Providers Care Power Ballast Machine Operator Name Role Phone Artie Meehan MD Unavailable Rina Swenson MD Unavailable Laura Mock MD, DMD Primary Car e Provider Laura Mock MD, DMD Unavailable Laura Mock MD, DMD Unavailable Jakob Bob MD Unavailable Jose Cruz MD Unavailable [phone] Laura Mock MD, DMD Unavailable Pcp, Unknown Primary Care Provider UnavailLaura Ascencio MD, DMD Primary Car e Provider Pcp, Unknown Primary Care Provider UnavailNicole Arguello MD Primary Care Provide r Laura Mock MD, DMD Primary Car e Provider Encounter Details Date Type Department Care Team (Late st Contact Info) Description 09/17/2021 Anti-coag visit [facility] Cardiovascular [address] [address] Catherine Hernández, [email or web address] [email or web address] Social History Tobacco Use [...] Description 05/24/2024 Procedure Pass [facility] Radiology [address] [place] [address] 11/24/2024 1:15 PM EDT Appointment [facility] Radiology [address] [place] [address] Jim Zacarias MD [address] [address] [email or web address] 11/24/2024 2:15 PM EDT Office Visit [facility] Thoracic Surgery 15 [facility] 204 [place] [address] Jim Zacarias MD [address] [address] [email or web address] 01/31/2025 1:00 PM EST Office Visit [facility] 32 [facility], 5th Floor, [address] [place] [address] Karena Betancur MD 55 [facility] 5[address] [place] [address] [email or web address] Scheduled Procedures Name Priority Associated Diagnoses Date/Ti [...] as of this encounter Care Teams Power Ballast Machine Operator Relationship Specialty Start Date End Date Laura Mock MD, DMD [address] [address] [email or web address] du PCP - General Internal Medicine 06/04/21 11/11/23 Pcp, Unknown PCP - General 11/12/23 11/16/23 Laura Mock MD, DMD [address] [address] [email or web address] PCP - General Internal Medicine 11/17/23 12/28/23 Pcp, Unknown PCP - General 02/28/24 03/04/24 [place] [address] [place] [address] PCP - General 03/05/24 05/17/24 Laura Mock MD, DMD [address] [address] [email or web address] du PCP - General Internal Medicine 05/18/24 Artie Meehan MD [address] [place] [address] Dr Dior [facility] [place] [address] Internal Medicine 10/26/17 04/23/22 Rina Swenson MD [address] [place] [address] [place] [address] Psychiatry 07/09/17 Laura Mock MD, DMD [address] [address] [email or web address] Partners Attributed Provider 09/01/21 07/03/23 Laura Mock MD, DMD [address] [address] [email or web address] du Insurance Assigned Provider 05/31/23 03/01/24 Jakob Bob MD [address] [place] [address] [email or web address] Cardiology 08/22/23 Jose Cruz MD [address] [place] [address] [email or web address] Cardiology 08/22/23 Laura Mock MD, DMD [address] [address] [email or web address] du Partners Attributed Provider 09/01/21 07/03/23 [place] [facility] [phone]. Consulting Provider 08/22/23 [facility] Connect 12/24/23 03/11/24 Cyril Morales [address] [place], [place] [phone] Nurse Practitioner 02/27/24 documented as of this encounter Additional Source Comments The information contained in this document represents components of the legal health record. It is not the complete legal health record.[facility]
--- OUTSIDE RECORDS SUMMARY | 2024-10-28 15:19 | XMS_ITS | Encounter Summary ---
Author Organization [facility] Address [address] [facility] [address] [place] [address] Phone Care Team Providers Care Plastic Dolls Mold Filler Name Role Phone Artie Meehan MD Primary Care Provider [phone] Artie Meehan MD Unavailable Rina Swenson MD [...] Info) Description 09/06/2020 Procedure Pass [facility] [address] [place] [address] Social History Tobacco Use Types Packs/Day Years [...] Upcoming Encounters Date Type Department Care Team ([facility] Contact Info) Description 05/24/2024 Procedure Pass [facility] Radiology [address] [place] [address] 11/24/2024 1:15 PM EDT Appointment [facility] Radiology [address] [place] [address] Jim Zacarias MD [phone] [place] [address] [email or web address] 11/24/2024 2:15 PM EDT Office Visit [facility] Thoracic Surgery 15 [facility] 204 [place] [address] Jim Zacarias MD [phone] [place] [address] [email or web address] 01/31/2025 1:00 PM EST Office Visit [facility] Cardiovascular Medicine 32 [facility], 5th Floor, [address] [place] [address] Karena Betancur MD [address] [facility] 5[address] [place] [address] [email or web address] Scheduled Procedures Name Priority Associated [...] documented as of this encounter Care Teams Plastic Dolls Mold Filler Relationship Specialty Start Date End Date Artie Meehan MD [address] [place] [address] Dr Dior [facility] [place] [address] PCP - General Internal Medicine 10/26/17 06/03/21 Laura Mock MD, DMD [address] [address] [email or web address] du PCP - General Internal Medicine 06/04/21 11/11/23 Pcp, Unknown PCP - General 11/12/23 11/16/23 Laura Mock MD, DMD [address] [address] [email or web address] du PCP - General Internal Medicine 11/17/23 12/28/23 Pcp, Unknown PCP - General 02/28/24 03/04/24 [place] [address] [place] [address] PCP - General 03/05/24 05/17/24 Laura Mock MD, DMD [address] [address] [email or web address] du PCP - General Internal Medicine 05/18/24 Artie Meehan MD [address] [place] [address] Dr Dior [address] [place] [address] Internal Medicine 10/26/17 04/23/22 Rina Swenson MD [address] [place] [address] [place] [address] Psychiatry 07/09/17 Laura Mock MD, DMD [address] [address] [email or web address] du Partners Attributed Provider 09/01/21 07/03/23 Laura Mock MD, DMD [address] [address] [email or web address] du Insurance Assigned Provider 05/31/23 03/01/24 Jakob Bob MD [address] [place] [address] [email or web address] Cardiology 08/22/23 Jose Cruz MD [address] [place] [address] [email or web address] Cardiology 08/22/23 Laura Mock MD, DMD [address] [address] [email or web address] du Partners Attributed Provider 09/01/21 07/03/23 [place] [facility] [phone]. Consulting Provider 08/22/23 [facility] Connect 12/24/23 03/11/24 Cyril Morales [address] [place] [address] Nurse Practitioner 02/27/24 documented as of this encounter Additional Source Comments The information contained in this document represents components of the legal health record. It is not the complete legal health record.[facility]
--- OUTSIDE RECORDS SUMMARY | 2024-10-28 15:19 | XMS_ITS | Encounter Summary ---
Author Organization [facility] Address [address] [employer] [address] [place] [address] Phone Care Team Providers Care Fabricator Assembler Metal Products Name Role Phone Rina Swenson MD Unavailable [phone] Laura Mock MD, DMD Primary Car e Provider Laura Mock MD, DMD Unavailable Jakob Bob MD Unavailable Jose Cruz MD Unavailable [phone] Pcp, Unknown Primary Care Provider UnavailLaura Ascencio MD, DMD Primary Car e Provider Pcp, Unknown Primary Care Provider UnavailNicole Arguello MD Primary Care Provide r Laura Mock MD, DMD Primary Car e Provider Encounter Details Date Type Department Care Team (Late st Contact Info) Description 08/26/2023 Procedure Pass [facility] Endoscopy Department [address] [place] [address] Social History Tobacco Use Types Packs/Day [...] st Contact Info) Description 05/24/2024 Procedure Pass [facility] Radiology [address] [place] [address] 11/24/2024 1:15 PM EDT Appointment [facility] Radiology [address] [place] [address] Jim Zacarias MD [address] [address] [email or web address] 11/24/2024 2:15 PM EDT Office Visit [facility] Thoracic Surgery [address] [facility] 204 [place] [address] Jim Zacarias MD [address] [address] [email or web address] 01/31/2025 1:00 PM EST Office Visit [facility] Cardiovascular Medicine 32 [facility], 5th Floor, [address] [place] [address] Karena Betancur MD 55 [facility] 5[address] [place] [address] [email or web address] Scheduled Procedures Name Priority Associated Diagnoses [...] as of this encounter Care Teams Fabricator Assembler Metal Products Relationship Specialty Start Date End Date Laura Mock MD, DMD [address] [address] [email or web address] du PCP - General Internal Medicine 06/04/21 11/11/23 Pcp, Unknown PCP - General 11/12/23 11/16/23 Laura Mock MD, DMD [address] [address] [email or web address] du PCP - General Internal Medicine 11/17/23 12/28/23 Pcp, Unknown PCP - General 02/28/24 03/04/24 Nicole Newell MD [address] [place] [address] PCP - General 03/05/24 05/17/24 Laura Mock MD, DMD [address] [address] [email or web address] du PCP - General Internal Medicine 05/18/24 Rina Swenson MD Psychiatry 07/09/17 Laura Mock MD, DMD 1 [facility] [address] [place] [address] [email or web address] Insurance Assigned Provider 05/31/23 03/01/24 Jakob Bob MD 75 [place] [address] [email or web address] Cardiology 08/22/23 Jose Cruz MD 22 [facility], [address] [place] [address] [email or web address] Cardiology 08/22/23 [facility] [phone]. Consulting Provider 08/22/23 CAROLANN GREWAL Connect 12/24/23 03/11/24 Cyril Morales [facility]5 [place] [address] Nurse Practitioner 02/27/24 documented as of this encounter Additional Source Comments The information contained in this document represents components of the legal health record. It is not the complete legal health record.[facility]
--- OUTSIDE RECORDS SUMMARY | 2024-10-28 15:19 | XMS_ITS | Encounter Summary ---
Author Organization [facility] Address [address] [facility] [address] [place] [address] Phone Care Team Providers Care Forensics Analyst Name Role Phone Artie Meehan MD Primary Care Provider Artie Meehan MD Unavailable Rina Swenson MD Unavailable Laura Mock MD, DMD Primary Car e Provider Laura Mock MD, DMD Unavailable Laura Mock MD, DMD Unavailable Jakob Bob MD Unavailable [phone] Jose Cruz MD Unavailable Laura Mock MD, DMD Unavailable Pcp, Unknown Primary Care Provider UnavailLaura Ascencio MD, DMD Primary Car e Provider Pcp, Unknown Primary Care Provider UnavailNicole Arguello MD Primary Care Provide r Laura Mock MD, DMD Primary Car e Provider Encounter Details Date Type Department Care Team (Late st Contact Info) Description 04/06/2019 Ancillary Orders Virtual Department 30 [place] [address] Artie Meehan MD [address] [place] [address] [place] [address] Menopausal state Social History Tobacco Use Types [...] Upcoming Encounters Date Type Department Care Team ([facility] Contact Info) Description 05/24/[address] [facility] Radiology [address] [place] [address] 11/24/2024 1:[address] [facility] Radiology [address] [place] [address] Jim Zacarias MD [address] [address] [email or web address] 11/24/2024 2:15 PM EDT Office Visit [facility] Thoracic Surgery 15 [facility] 204 [place] [address] Jim Zacarias MD [address] [address] [email or web address] 01/31/2025 1:00 PM EST Office Visit [facility] Cardiovascular Medicine 32 [facility], 5th Floor, [address] [place] [address] Karena Betancur MD 55 [facility] YA [address] [place] [address] [email or web address] Scheduled Procedures Name Priority Associated [...] documented as of this encounter Care Teams Forensics Analyst Relationship Specialty Start Date End Date Artie Meehan MD [address] [place] [address] Dr D[address] [facility] [place] [address] PCP - General Internal Medicine 10/26/17 06/03/21 Laura Mock MD, DMD [address] [address] [email or web address] PCP - General Internal Medicine 06/04/21 11/11/23 Pcp, Unknown PCP - General 11/12/23 11/16/23 Laura Mock MD, DMD [address] [address] [email or web address] du PCP - General Internal Medicine 11/17/23 12/28/23 Pcp, Unknown PCP - General 02/28/24 03/04/24 Nicole Newell [place] [address] [place] [address] PCP - General 03/05/24 05/17/24 Laura Mock MD, DMD [address] [address] [email or web address] du PCP - General Internal Medicine 05/18/24 Artie Meehan MD [address] [place] [address] [place] [address] Internal Medicine 10/26/17 04/23/22 Rina Swenson MD [address] [place] [address] [place] [address] Psychiatry 07/09/17 Laura Mock MD, DMD [address] [address] [email or web address] Partners Attributed Provider 09/01/21 07/03/23 Laura Mock MD, DMD [address] [address] [email or web address] du Insurance Assigned Provider 05/31/23 03/01/24 Jakob Bob MD [address] [place] [address] [email or web address] Cardiology 08/22/23 Jose Cruz MD [address] [place] [address] [address] [place] [address] [email or web address] Cardiology 08/22/23 Laura Mock MD, DMD [address] [address] [email or web address] [employer] Attributed Provider 09/01/21 07/03/23 [facility] [phone]. Consulting Provider 08/22/23 CAROLANN GREWAL Connect 12/24/23 03/11/24 Cyril Morales [address] [place] [address] Nurse Practitioner 02/27/24 documented as of this encounter Additional Source Comments The information contained in this document represents components of the legal health record. It is not the complete legal health record.[facility]
--- OUTSIDE RECORDS SUMMARY | 2024-10-28 15:19 | XMS_ITS | Encounter Summary ---
Author Organization [facility] Address [address] [place] [address] Phone Care Team Providers Care Veterinary Physiologist Name Role Phone Rina Swenson MD Unavailable [phone] Laura Mock MD, DMD Primary Car e [...] st Contact Info) Description 12/25/2022 Transcribe Orders [facility] Department 30 [place] [address] Laura Mock MD, DMD 1 [facility] 225 [place] [address] [email or web address] Breast screening (Primary Dx) Social History Tobacco [...] st Contact Info) Description 05/24/2024 Procedure Pass [facility] Radiology [address] [place] [address] 11/24/2024 1:15 PM EDT Appointment [facility] Radiology [address] [place] [address] Jim Zacarias MD [address] [place] [address] [email or web address] 11/24/2024 2:15 PM EDT Office Visit [facility] Thoracic Surgery [address] [address] Jim Zacarias MD [address] [place] [address] [email or web address] 01/31/2025 1:00 PM EST Office Visit [facility] Medicine 32 [facility], 5th Floor, [address] [place] [address] Karena Betancur MD 55 [facility] [address] [place] [address] [email or web address] Scheduled Procedures Name Priority Associated Diagnoses [...] documented as of this encounter Care Teams Veterinary Physiologist Relationship Specialty Start Date End Date Laura Mock MD, DMD [address] [address] [email or web address] PCP - General Internal Medicine 06/04/21 11/11/23 Pcp, Unknown PCP - General 11/12/23 11/16/23 Laura Mock MD, DMD [address] [address] [email or web address] du PCP - General Internal Medicine 11/17/23 12/28/23 Pcp, Unknown PCP - General 02/28/24 03/04/24 Nicole Newell MD [address] [place] [id number] PCP - General 03/05/24 05/17/24 Laura Mock MD, DMD [address] [address] [email or web address] du PCP - General Internal Medicine 05/18/24 Rina Swenson MD Psychiatry 07/09/17 Laura Mock MD, DMD [address] [address] [email or web address] Partners Attributed Provider 09/01/21 07/03/23 Laura Mock MD, DMD [address] [address] [email or web address] du Insurance Assigned Provider 05/31/23 03/01/24 Jakob Bob MD [address] [place] [address] [email or web address] Cardiology 08/22/23 Jose Cruz MD [address] [place] [address] [email or web address] Cardiology 08/22/23 Laura Mock MD, DMD [address] [address] [email or web address] Partners Attributed Provider 09/01/21 07/03/23 [facility] [phone]. Consulting Provider 08/22/23 [facility] Connect 12/24/23 03/11/24 Cyril Morales [address] [place] [phone] Nurse Practitioner 02/27/24 documented as of this encounter Additional Source Comments The information contained in this document represents components of the legal health record. It is not the complete legal health record.[facility]
--- OUTSIDE RECORDS SUMMARY | 2024-10-28 15:19 | XMS_ITS | Encounter Summary ---
Author Organization [facility] Address [facility] Directly [facility] [address] [place] [address] Phone Care Team Providers Care Forensic Psychiatrist Name Role Phone Rina Swenson MD Unavailable Laura Mock MD, DMD Primary Car e Provider Laura Mock MD, DMD Unavailable Laura Mock MD, DMD Unavailable Jakob Bob MD Unavailable Jose Cruz MD Unavailable [phone] Laura Mock MD, DMD Unavailable Pcp, Unknown Primary Care Provider UnavailLaura Ascencio MD, DMD Primary Car e Provider Pcp, Unknown Primary Care Provider UnavailNicole Arguello MD Primary Care Provide r Laura Mock MD, DMD Primary Car e Provider Encounter Details Date Type Department Care Team (Late st Contact Info) Description 10/07/2022 Procedure Pass [facility] [address] [place] [address] Social History [...] st Contact Info) Description 05/24/2024 Procedure Pass [facility] Radiology [address] [place] [address] 11/24/2024 1:15 PM EDT Appointment [facility] Radiology [address] [place] [address] Jim Zacarias MD [address] [address] [email or web address] 11/24/2024 2:15 PM EDT Office Visit [facility] Thoracic Surgery 15 [facility] 204 [place] [address] Jim Zacarias MD [address] [address] [email or web address] 01/31/2025 1:00 PM EST Office Visit [facility] Cardiovascular Medicine 32 [facility], 5th Floor, [address] [place] [address] Karena Betancur MD [address] [address] [email or web address] Scheduled Procedures Name Priority Associated Diagnoses [...] documented as of this encounter Care Teams Forensic Psychiatrist Relationship Specialty Start Date End Date Laura Mock MD, DMD [address] [address] [email or web address] PCP - General Internal Medicine 06/04/21 11/11/23 Pcp, Unknown PCP - General 11/12/23 11/16/23 Laura Mock MD, DMD [address] [address] [email or web address] PCP - General Internal Medicine 11/17/23 12/28/23 Pcp, Unknown PCP - General 02/28/24 03/04/24 [place] [address] [address] PCP - General 03/05/24 05/17/24 Laura Mock MD, DMD [address] [address] [email or web address] PCP - General Internal Medicine 05/18/24 Rina Swenson MD Psychiatry 07/09/17 Laura Mock MD, DMD [address] [address] [email or web address] Attributed Provider 09/01/21 07/03/23 Laura Mock MD, DMD [address] [address] [email or web address] du Insurance Assigned Provider 05/31/23 03/01/24 Jakob Bob MD [address] [place] [address] [email or web address] Cardiology 08/22/23 Jose Cruz MD [address] [place] [address] Cardiology 08/22/23 Laura Mock MD, DMD [address] [address] [email or web address] Attributed Provider 09/01/21 07/03/23 [facility] [phone]. Consulting Provider 08/22/23 [facility] Connect 12/24/23 03/11/24 Cyril Morales [address] [place] [phone] Nurse Practitioner 02/27/24 documented as of this encounter Additional Source Comments The information contained in this document represents components of the legal health record. It is not the complete legal health record.[facility]
--- OUTSIDE RECORDS SUMMARY | 2024-10-28 15:19 | XMS_ITS | Encounter Summary ---
Author Organization [facility] Address [facility] [address] [address] Phone Care Team Providers Care Office Worker Name Role Phone Artie Meehan MD Unavailable [...] st Contact Info) Description 10/19/2021 Anti-coag visit [facility] Antico[facility] Clinic [address] [place] [address] Melvin Stewart, [facility] [address] [place] [address] [email or web address] Social History Tobacco Use Types Packs/Day [...] Contact Info) Description 05/24/2024 Procedure Pass [facility] Radiology [address] [place] [address] 11/24/2024 1:15 PM EDT Appointment [facility] Radiology [address] [place] [address] Jim Zacarias MD [address] [address] [email or web address] 11/24/2024 2:15 PM EDT Office Visit [facility] Thoracic Surgery 15 [facility] 204 [place] [address] Jim Zacarias MD [address] [address] [email or web address] 01/31/2025 1:00 PM EST Office Visit [facility] Cardiovascular Medicine 32 [facility], 5th Floor, [address] [place] [address] Karena Betancur MD 55 [facility] [address] [place] [address] [email or web address] Scheduled Procedures Name Priority Associated [...] documented as of this encounter Care Teams Office Worker Relationship Specialty Start Date End Date Laura Mock MD, DMD [address] [address] [email or web address] PCP - General Internal Medicine 06/04/21 11/11/23 Pcp, Unknown PCP - General 11/12/23 11/16/23 Laura Mock MD, DMD [address] [address] [email or web address] PCP - General Internal Medicine 11/17/23 12/28/23 Pcp, Unknown PCP - General 02/28/24 03/04/24 [place] [address] [address] PCP - General 03/05/24 05/17/24 Laura Mock MD, DMD [address] [address] [email or web address] PCP - General Internal Medicine 05/18/24 Artie Meehan MD [address] [place] [address] Dr Dior [facility] [place] [address] Internal Medicine 10/26/17 04/23/22 Rina Swenson MD [address] [place] [address] Dr Dior [address] [place] [address] Psychiatry 07/09/17 Laura Mock MD, DMD [address] [address] [email or web address] du [employer] Attributed Provider 09/01/21 07/03/23 Laura Mock MD, DMD [address] [address] [email or web address] du Insurance Assigned Provider 05/31/23 03/01/24 Jakob Bob MD [address] [place] [address] [email or web address] Cardiology 08/22/23 Jose Cruz MD [address] [place] [address] Cardiology 08/22/23 Laura Mock MD, DMD [address] [address] [email or web address] [employer] Attributed Provider 09/01/21 07/03/23 [facility] [phone]. Consulting Provider 08/22/23 [facility] Connect 12/24/23 03/11/24 Cyril Morales [address] [place] [address] Nurse Practitioner 02/27/24 documented as of this encounter Additional Source Comments The information contained in this document represents components of the legal health record. It is not the complete legal health record.[facility]
--- OUTSIDE RECORDS SUMMARY | 2024-10-28 15:19 | XMS_ITS | Encounter Summary ---
Author Organization [facility] Address [address] [facility] [address] [place] [address] Phone Care Team Providers Care Supply Chain Systems Manager Name Role Phone Artie Meehan MD Primary Care Provider Artie Meehan MD Unavailable Rina Swenson MD Unavailable Laura Mock MD, DMD Primary Car e Provider Laura Mock MD, DMD Unavailable Laura Mock MD, DMD Unavailable Jakob Bob MD Unavailable Jose Cruz MD Unavailable [phone] Laura Mock MD, DMD Unavailable Pcp, Unknown Primary Care Provider UnavailLaura Ascencio MD, DMD Primary Car e Provider Pcp, Unknown Primary Care Provider UnavailNicole Arguello MD Primary Care Provide r Laura Mock MD, DMD Primary Car e Provider Encounter Details Date Type Department Care Team (Late st Contact Info) Description 12/16/2019 Procedure Pass [facility] 30 [place] [address] Social History Tobacco Use Types Packs/Day Years [...] Upcoming Encounters Date Type Department Care Team ([facility] Contact Info) Description 05/24/2024 Procedure Pass [facility] Radiology 75 [place] [address] 11/24/2024 1:15 PM EDT Appointment [facility] Radiology [address] [place] [address] Jim Zacarias MD [phone] [place] [address] [email or web address] 11/24/2024 2:15 PM EDT Office Visit [facility] Thoracic Surgery 15 [facility] 204 [place] [address] Jim Zacarias MD [phone] [place] [address] [email or web address] 01/31/2025 1:00 PM EST Office Visit [facility] Cardiovascular Medicine 32 [facility], 5th Floor, [address] [place] [address] Karena Betancur MD 55 [facility] 5B [place] [address] [email or web address] Scheduled Procedures Name Priority Associated Diagnoses Date/Ti me COLONOSCOPY Abnormal colonoscopy documented as of this encounter Visit Diagnoses Not on filedocumented in this encounter Additional Health Concerns Infection Onset Date Last Indicated Resolved Time CoV-Presumed 03/23/2022 03/23/2022 04/13/2022 1:23 AM EST CoV-Risk 11/12/2023 11/12/2023 11/12/2023 5:12 PM EDT COVID-19 11/12/2023 11/12/2023 12/03/2023 1:21 AM EDT documented as of this encounter Care Teams Supply Chain Systems Manager Relationship Specialty Start Date End Date Artie Meehan MD [address] [place] [address] Dr [address] [place] [address] PCP - General Internal Medicine 10/26/17 06/03/21 Laura Mock MD, DMD [address] [address] [email or web address] du PCP - General Internal Medicine 06/04/21 11/11/23 Pcp, Unknown PCP - General 11/12/23 11/16/23 Laura Mock MD, DMD [address] [address] [email or web address] du PCP - General Internal Medicine 11/17/23 12/28/23 Pcp, Unknown PCP - General 02/28/24 03/04/24 [place] [address] [address] PCP - General 03/05/24 05/17/24 Laura Mock MD, DMD [address] [address] [email or web address] du PCP - General Internal Medicine 05/18/24 Artie Meehan MD [address] [place] [address] [place] [address] Internal Medicine 10/26/17 04/23/22 Rina Swenson MD [address] [place] [address] [place] [address] Psychiatry 07/09/17 Laura Mcok MD, DMD [address] [address] [email or web address] Partners Attributed Provider 09/01/21 07/03/23 Laura Mock MD, DMD [address] [address] [email or web address] du Insurance Assigned Provider 05/31/23 03/01/24 Jakob Bob MD [address] [place] [address] [email or web address] Cardiology 08/22/23 Jose Cruz MD [address] [place] [address], [address] [place] [address] [email or web address] Cardiology 08/22/23 Laura Mock MD, DMD [address] [address] [email or web address] [employer] Attributed Provider 09/01/21 07/03/23 [facility] [phone]. Consulting Provider 08/22/23 [facility] Connect 12/24/23 03/11/24 Cyril Morales [facility]5 [place] [address] Nurse Practitioner 02/27/24 documented as of this encounter Additional Source Comments The information contained in this document represents components of the legal health record. It is not the complete legal health record.[facility]
--- OUTSIDE RECORDS SUMMARY | 2024-10-28 15:19 | XMS_ITS | Encounter Summary ---
Author Organization [facility] Address [address] [place] [address] [place] [address] Phone Care Team Providers Care Clinical Data Abstractor Name Role Phone Rina Swenson MD Unavailable [...] st Contact Info) Description 12/10/2022 Anti-coag visit [facility] Cardiovascular Health [address] [place] [address] Thibeault, Catherine NasrinLatricia [email or web address] Social History Tobacco Use Types [...] st Contact Info) Description 05/24/2024 Procedure Pass [facility] Radiology [address] [place] [address] 11/24/2024 1:15 PM EDT Appointment [facility] Radiology [address] [place] [address] Jim Zacarias MD [address] [address] [email or web address] 11/24/2024 2:15 PM EDT Office Visit [facility] Thoracic Surgery 15 [facility] 204 [place] [address] Jim Zacarias MD [address] [address] [email or web address] 01/31/2025 1:00 PM EST Office Visit [facility] Cardiovascular Medicine 32 [facility], 5th Floor, [address] [place] [address] Karena Betancur MD [address] [place] [address] 5[address] [place] [address] [email or web address] Scheduled Procedures [...] documented as of this encounter Care Teams Clinical Data Abstractor Relationship Specialty Start Date End Date Laura Mock MD, DMD [address] [address] [email or web address] PCP - General Internal Medicine 06/04/21 11/11/23 Pcp, Unknown PCP - General 11/12/23 11/16/23 Laura Mock MD, DMD [address] [address] [email or web address] du PCP - General Internal Medicine 11/17/23 12/28/23 Pcp, Unknown PCP - General 02/28/24 03/04/24 [place] [address] [address] PCP - General 03/05/24 05/17/24 Laura Mock MD, DMD [address] [address] [email or web address] PCP - General Internal Medicine 05/18/24 Rina Swenson MD Psychiatry 07/09/17 Laura Mock MD, DMD [address] [address] [email or web address] Attributed Provider 09/01/21 07/03/23 Laura Mock MD, DMD [address] [address] [email or web address] du Insurance Assigned Provider 05/31/23 03/01/24 Jakob Bob MD [address] [place] [address] [email or web address] Cardiology 08/22/23 Jose Cruz MD [address] [place] [address] [email or web address] Cardiology 08/22/23 Laura Mock MD, DMD [address] [address] [email or web address] [employer] Attributed Provider 09/01/21 07/03/23 [facility] [phone]. Consulting Provider 08/22/23 [facility] Connect 12/24/23 03/11/24 Cyril Morales [address] [place] [phone] Nurse Practitioner 02/27/24 documented as of this encounter Additional Source Comments The information contained in this document represents components of the legal health record. It is not the complete legal health record.[facility]
--- OUTSIDE RECORDS SUMMARY | 2024-10-28 15:19 | XMS_ITS | Encounter Summary ---
Author Organization [facility] Address [facility] [employer] [address] [address] Phone Care Team Providers Care Foreclosure Clerk Name Role Phone Artie Meehan MD Unavailable Rina Swenson MD Unavailable Laura Mock MD, DMD Primary Car e Provider Laura Mock MD, DMD Unavailable Laura Mock MD, DMD Unavailable Jakob Bob MD Unavailable Jose Cruz MD Unavailable [phone] Laura Mock MD, DMD Unavailable Pcp, Unknown Primary Care Provider UnavailLaura Ascencio MD, DMD Primary Car e Provider Pcp, Unknown Primary Care Provider UnavailNicole Arguello MD Primary Care Provide r Laura Mock MD, DMD Primary Car e Provider Encounter Details Date Type Department Care Team (Late st Contact Info) Description 09/07/2021 Anti-coag visit [facility] Anticoagulation Clinic [address] [place] [address] Kenyatta Gamez, PharmD [email or web address] Social History Tobacco Use Types Packs/Day [...] st Contact Info) Description 05/24/2024 Procedure Pass [facility] Radiology [address] [place] [address] 11/24/2024 1:15 PM EDT Appointment [facility] Radiology [address] [place] [address] Jim Zacarias MD [address] [address] [email or web address] 11/24/2024 2:15 PM EDT Office Visit [facility] Thoracic Surgery 15 [facility] 204 [place] [address] Jim Zacarias MD [address] [address] [email or web address] 01/31/2025 1:00 PM EST Office Visit [facility] Cardiovascular Medicine 32 [facility], 5th Floor, [address] [place] [address] Karena Betancur MD 55 [facility] 5[address] [place] [address] [email or web address] Scheduled Procedures Name Priority Associated Diagnoses Date/Ti [...] documented as of this encounter Care Teams Foreclosure Clerk Relationship Specialty Start Date End Date Laura Mock MD, DMD [address] [address] [email or web address] du PCP - General Internal Medicine 06/04/21 11/11/23 Pcp, Unknown PCP - General 11/12/23 11/16/23 Laura Mock MD, DMD [address] [address] [email or web address] PCP - General Internal Medicine 11/17/23 12/28/23 Pcp, Unknown PCP - General 02/28/24 03/04/24 Nicole Newell [place] [address] [place] [address] PCP - General 03/05/24 05/17/24 Laura Mock MD, DMD [address] [address] [email or web address] PCP - General Internal Medicine 05/18/24 Artie Meehan MD [address] [place] [address] Dr [place] [facility] [place] [address] Internal Medicine 10/26/17 04/23/22 Rina Swenson MD [address] [place] [address] [place] [address] Psychiatry 07/09/17 Laura Mock MD, DMD [address] [address] [email or web address] [employer] Attributed Provider 09/01/21 07/03/23 Laura Mock MD, DMD [address] [address] [email or web address] du Insurance Assigned Provider 05/31/23 03/01/24 Jakob Bob MD [address] [place] [address] [email or web address] Cardiology 08/22/23 Jose Cruz MD [address] [place] [address] [email or web address] Cardiology 08/22/23 Laura Mock MD, DMD [address] [address] [email or web address] Partners Attributed Provider 09/01/21 07/03/23 [facility] [phone]. Consulting Provider 08/22/23 [facility] Connect 12/24/23 03/11/24 Cyril Morales [address] [place] [address] Nurse Practitioner 02/27/24 documented as of this encounter Additional Source Comments The information contained in this document represents components of the legal health record. It is not the complete legal health record.[facility]
--- OUTSIDE RECORDS SUMMARY | 2024-10-28 15:19 | XMS_ITS | Encounter Summary ---
Author Organization [facility] Address [address] [place] [address] Phone Care Team Providers Care Counter Sales Representative Name Role Phone Artie Meehan MD Unavailable Rina Swenson MD Unavailable Laura Mock MD, DMD Primary Car e Provider Laura Mock MD, DMD Unavailable Laura Mock MD, DMD Unavailable Jakob Bob MD Unavailable [phone] Jose Cruz MD Unavailable Laura Mock MD, DMD Unavailable Pcp, Unknown Primary Care Provider UnavailLaura Ascencio MD, DMD Primary Car e Provider Pcp, Unknown Primary Care Provider UnavailNicole Arguello MD Primary Care Provide r Laura Mock MD, DMD Primary Car e Provider Encounter Details Date Type Department Care Team (Late st Contact Info) Description 09/28/2021 Telephone [facility] Psychiatric Specialties at [address] [place] [address] Tamara [place], [place] [address] [facility] [place] [address] Social History Tobacco Use Types Packs/Day Years [...] st Contact Info) Description 05/24/2024 Procedure Pass [facility] Radiology 75 [place] [address] 11/24/2024 1:15 PM EDT Appointment [facility] Radiology [address] [place] [address] Jim Zacarias MD [phone] [place] [address] [email or web address] 11/24/2024 2:15 PM EDT Office Visit [facility] Thoracic Surgery 15 [facility] 204 [place] [address] Jim Zacarias MD [phone] [place] [address] [email or web address] 01/31/2025 1:00 PM EST Office Visit [facility] Cardiovascular Medicine 32 [facility], 5th Floor, [address] [place] [address] Karena Betancur MD 55 [facility] 5B [place] [address] [email or web address] Scheduled Procedures Name Priority Associated Diagnoses [...] documented as of this encounter Care Teams Counter Sales Representative Relationship Specialty Start Date End Date Laura Mock MD, DMD [address] [address] [email or web address] PCP - General Internal Medicine 06/04/21 11/11/23 Pcp, Unknown PCP - General 11/12/23 11/16/23 Laura Mock MD, DMD [address] [address] [email or web address] PCP - General Internal Medicine 11/17/23 12/28/23 Pcp, Unknown PCP - General 02/28/24 03/04/24 Nicole Newell [place] [address] [place] [address] PCP - General 03/05/24 05/17/24 Laura Mock MD, DMD [address] [address] [email or web address] du PCP - General Internal Medicine 05/18/24 Artie Meehan MD [address] [place] [address] Dr Dior [facility] [place] [address] Internal Medicine 10/26/17 04/23/22 Rian Swenson MD [address] [place] [address] [place] [address] Psychiatry 07/09/17 Laura Mock MD, DMD [address] [address] [email or web address] du [employer] Attributed Provider 09/01/21 07/03/23 Laura Mock MD, DMD [address] [address] [email or web address] du Insurance Assigned Provider 05/31/23 03/01/24 Jakob Bob MD [address] [place] [address] [email or web address] Cardiology 08/22/23 Jose Cruz MD [address] [place] [address] [email or web address] Cardiology 08/22/23 Laura Mock MD, DMD [address] [address] [email or web address] Attributed Provider 09/01/21 07/03/23 [facility] [phone]. Consulting Provider 08/22/23 [facility] Connect 12/24/23 03/11/24 Cyril Morales [address] [place] [phone] Nurse Practitioner 02/27/24 documented as of this encounter Additional Source Comments The information contained in this document represents components of the legal health record. It is not the complete legal health record.[facility]
--- OUTSIDE RECORDS SUMMARY | 2024-10-28 15:19 | XMS_ITS | Encounter Summary ---
Author Organization [facility] Address [address] [place] [address] Phone Care Team Providers Care Commission Broker Name Role Phone Rina Swenson MD Unavailable Laura Mock MD, DMD Primary Car e Provider Laura Mock MD, DMD Unavailable Laura Mock MD, DMD Unavailable Jakob Bob MD Unavailable Jose Cruz MD Unavailable [phone] Laura Mock MD, DMD Unavailable Pcp, Unknown Primary Care Provider UnavailLaura Ascencio MD, DMD Primary Car e Provider Pcp, Unknown Primary Care Provider UnavailNicole Arguello MD Primary Care Provide r Laura Mock MD, DMD Primary Car e Provider Encounter Details Date Type Department Care Team (Late st Contact Info) Description 08/08/2022 Anti-coag visit [facility] Anticoagulation Clinic [address] [place] [address] Kenyatta Gamez, PharmDanyell [email or web address] Social History Tobacco Use Types Packs/Day Years [...] st Contact Info) Description 05/24/2024 Procedure Pass [facility] Radiology [address] [place] [address] 11/24/2024 1:15 PM EDT Appointment [facility] Radiology [address] [place] [address] Jim Zacarias MD [address] [address] [email or web address] 11/24/2024 2:15 PM EDT Office Visit [facility] Thoracic Surgery 15 [facility] 204 [place] [address] Jim Zacarias MD [address] [address] [email or web address] 01/31/2025 1:00 PM EST Office Visit [facility] Cardiovascular Medicine [address], 5th Floor, [address] [place] [address] Karena Betancur MD [address] [place] [address] [address] [place] [address] [email or web address] Scheduled Procedures Name Priority Associated Diagnoses [...] documented as of this encounter Care Teams Commission Broker Relationship Specialty Start Date End Date Laura Mock MD, DMD [address] [address] [email or web address] PCP - General Internal Medicine 06/04/21 11/11/23 Pcp, Unknown PCP - General 11/12/23 11/16/23 Laura Mock MD, DMD [address] [address] [email or web address] du PCP - General Internal Medicine 11/17/23 12/28/23 Pcp, Unknown PCP - General 02/28/24 03/04/24 Nicole Newell MD [address] [place] [address] PCP - General 03/05/24 05/17/24 Laura Mock MD, DMD [address] [address] [email or web address] du PCP - General Internal Medicine 05/18/24 Rina Swenson MD Psychiatry 07/09/17 Laura Mock MD, DMD 1 [facility] [address] [place] [address] [email or web address] Partners Attributed Provider 09/01/21 07/03/23 Laura Mock MD, DMD [address] [address] [email or web address] Insurance Assigned Provider 05/31/23 03/01/24 Jakob Bob MD [address] [place] [address] [email or web address] Card[facility] 08/22/23 Jose rCuz MD [address] [place] [address] [email or web address] Cardiology 08/22/23 Laura Mock MD, DMD [address] [address] [email or web address] Partners Attributed Provider 09/01/21 07/03/23 [facility] [phone]. Consulting Provider 08/22/23 [facility] Connect 12/24/23 03/11/24 Cyril Morales [address] [place] [address] Nurse Practitioner 02/27/24 documented as of this encounter Additional Source Comments The information contained in this document represents components of the legal health record. It is not the complete legal health record.[facility]
--- OUTSIDE RECORDS SUMMARY | 2024-10-28 15:19 | XMS_ITS | Encounter Summary ---
Author Organization [facility] Address [facility] [address] [place] [address] Phone Care Team Providers Care Polyethylene Bag Machine Operator Name Role Phone Rina Swenson MD [...] st Contact Info) Description 07/26/[address] [facility] Anticoagulation Clinic 75 [place], [place] [phone] Melvin Stewart, [facility] [address] [place] [address] [email or web address] Social History Tobacco Use Types [...] 05/24/2024 Procedure Pass [facility] Radiology [address] [place] [address] 11/24/2024 1:15 PM EDT Appointment [facility] Radiology [address] [place] [address] Jim Zacarias MD [address] [place] [address] [email or web address] 11/24/2024 2:15 PM EDT Office Visit [facility] Thoracic Surgery 15 [facility] 204 [place] [address] Jim Zacarias MD [address] [place] [address] [email or web address] 01/31/2025 1:00 PM EST Office Visit [facility] Cardiovascular Medicine [address] [place] [address], 5th Floor, [address] [place] [address] Karena Betancur MD 55 [facility] [address] [place] [address] [email or web address] Scheduled Procedures Name Priority Associated Diagnoses [...] documented as of this encounter Care Teams Polyethylene Bag Machine Operator Relationship Specialty Start Date End Date Laura Mock MD, DMD [address] [address] [email or web address] du PCP - General Internal Medicine 06/04/21 11/11/23 Pcp, Unknown PCP - General 11/12/23 11/16/23 Laura Mock MD, DMD [address] [address] [email or web address] PCP - General Internal Medicine 11/17/23 12/28/23 Pcp, Unknown PCP - General 02/28/24 03/04/24 [place] [address] [address] PCP - General 03/05/24 05/17/24 Laura Mock MD, DMD [address] [address] [email or web address] PCP - General Internal Medicine 05/18/24 Rina Swenson MD Psychiatry 07/09/17 Laura Mock MD, DMD [address] [address] [email or web address] du Partners Attributed Provider 09/01/21 07/03/23 Laura Mock MD, DMD [address] [address] [email or web address] du Insurance Assigned Provider 05/31/23 03/01/24 Jakob Bob MD [address] [place] [address] [email or web address] Cardiology 08/22/23 Jose Cruz MD [address] [place] [address], [address] [place] [address] Cardiology 08/22/23 Laura Mock MD, DMD [address] [address] [email or web address] Partners Attributed Provider 09/01/21 07/03/23 [facility] [phone]. Consulting Provider 08/22/23 [facility] Connect 12/24/23 03/11/24 Cyril Morales [address] [place] [address] Nurse Practitioner 02/27/24 documented as of this encounter Additional Source Comments The information contained in this document represents components of the legal health record. It is not the complete legal health record.[facility]
--- OUTSIDE RECORDS SUMMARY | 2024-10-28 15:19 | XMS_ITS | Encounter Summary ---
Author Organization [facility] Address [address] [place] [address] Phone Care Team Providers Care Field Installation Technician Name Role Phone Rina Swenson MD Unavailable [...] st Contact Info) Description 07/18/2022 Anti-coag visit [facility] Anticoagulation Clinic [address] [place] [address] Kenyatta Gamez, PharmDanyell [email or web address] Social History Tobacco Use Types Packs/Day [...] st Contact Info) Description 05/24/2024 Procedure Pass [facility] Radiology [address] [place] [address] 11/24/2024 1:15 PM EDT Appointment [facility] Radiology [address] [place] [address] Jim Zacarias MD [address] [address] [email or web address] 11/24/2024 2:15 PM EDT Office Visit [facility] Thoracic Surgery 15 [facility] 204 [place] [address] Jim Zacarias MD [address] [address] [email or web address] 01/31/2025 1:00 PM EST Office Visit [facility] Cardiovascular Medicine 32 [facility], 5th Floor, [address] [place] [address] Karena Betancur MD [address] [place] [address] 5[address] [place] [address] [email or web address] Scheduled Procedures Name Priority Associated Diagnoses Date/Ti [...] documented as of this encounter Care Teams Field Installation Technician Relationship Specialty Start Date End Date Laura Mock MD, DMD [address] [address] [email or web address] PCP - General Internal Medicine 06/04/21 11/11/23 Pcp, Unknown PCP - General 11/12/23 11/16/23 Laura Mock MD, DMD [address] [address] [email or web address] PCP - General Internal Medicine 11/17/23 12/28/23 Pcp, Unknown PCP - General 02/28/24 03/04/24 Nicole Newell MD [address] [place] [address] PCP - General 03/05/24 05/17/24 Laura Mock MD, DMD [address] [address] [email or web address] PCP - General Internal Medicine 05/18/24 Rina Swenson MD Psychiatry 07/09/17 Laura Mock MD, DMD 1 [facility] [address] [place] [address] [email or web address] Partners Attributed Provider 09/01/21 07/03/23 Laura Mock MD, DMD [address] [address] [email or web address] Insurance Assigned Provider 05/31/23 03/01/24 Jakob Bob MD [address] [place] [address] [email or web address] Cardiology 08/22/23 Jose Cruz MD [address] [place] [address] [email or web address] Cardiology 08/22/23 Luara Mock MD, DMD [address] [address] [email or web address] Attributed Provider 09/01/21 07/03/23 [facility] [phone]. Consulting Provider 08/22/23 [facility] Connect 12/24/23 03/11/24 Cyril Morales [address] [place] [phone] Nurse Practitioner 02/27/24 documented as of this encounter Additional Source Comments The information contained in this document represents components of the legal health record. It is not the complete legal health record.[facility]
--- OUTSIDE RECORDS SUMMARY | 2024-10-28 15:19 | XMS_ITS | Encounter Summary ---
Author Organization [facility] Address Counts include 234 beds at the [facility] [address] [address] Phone Care Team Providers Care Knit Goods Mender Name Role Phone Artie Meehan MD Unavailable Rina Swenson MD Unavailable [phone] Laura Mock MD, DMD Primary Car e Provider Laura Mock MD, DMD Unavailable Laura Mock MD, DMD Unavailable Jakob Bob MD Unavailable Jose Cruz MD Unavailable [phone] Laura Mock MD, DMD Unavailable Pcp, Unknown [...] st Contact Info) Description 05/24/2024 Procedure Pass [facility] Radiology [address] [place] [address] 11/24/2024 1:15 PM EDT Appointment [facility] Radiology [address] [place] [address] Jim Zacarias MD [address] [address] [email or web address] 11/24/2024 2:15 PM EDT Office Visit [facility] Thoracic Surgery 15 [facility] 204 [place] [address] Jim Zacarias MD [address] [address] [email or web address] 01/31/2025 1:00 PM EST Office Visit [facility] Cardiovascular Medicine 32 [facility], 5th Floor, [address] [place] [address] Karena Betancur MD 55 [facility] 5[address] [place] [address] [email or web address] Scheduled Procedures Name Priority Associated Diagnoses Date/Ti [...] documented as of this encounter Care Teams Knit Goods Mender Relationship Specialty Start Date End Date Laura Mock MD, DMD 1 [facility] [address] [place] [address] [email or web address] du PCP - General Internal Medicine 06/04/21 11/11/23 Pcp, Unknown PCP - General 11/12/23 11/16/23 Laura Mock MD, DMD [address] [address] [email or web address] du PCP - General Internal Medicine 11/17/23 12/28/23 Pcp, Unknown PCP - General 02/28/24 03/04/24 [place] [address] [place] [address] PCP - General 03/05/24 05/17/24 Laura Mock MD, DMD [address] [address] [email or web address] du PCP - General Internal Medicine 05/18/24 Artie Meehan MD [address] [place] [address] [place] [address] Internal Medicine 10/26/17 04/23/22 Rina Swenson MD [address] [place] [address] [place] [address] Psychiatry 07/09/17 Laura Mock MD, DMD [address] [address] [email or web address] du Partners Attributed Provider 09/01/21 07/03/23 Laura Mock MD, DMD [address] [address] [email or web address] du Insurance Assigned Provider 05/31/23 03/01/24 Jakob Bob MD [address] [place] [address] [email or web address] Cardiology 08/22/23 Jose Cruz MD [address] [place] [address], [address] [place] [address] Cardiology 08/22/23 Laura Mock MD, DMD [address] [address] [email or web address] Partners Attributed Provider 09/01/21 07/03/23 [facility] [phone]. Consulting Provider 08/22/23 [facility] Connect 12/24/23 03/11/24 Cyril Morales [address] [place] [address] Nurse Practitioner 02/27/24 documented as of this encounter Additional Source Comments The information contained in this document represents components of the legal health record. It is not the complete legal health record.[facility]
--- OUTSIDE RECORDS SUMMARY | 2024-10-28 15:19 | XMS_ITS | Encounter Summary ---
Author Organization [facility] Address [facility] [employer] [address] [address] Phone Care Team Providers Care Application Development Intern Name Role Phone Rina Swenson MD Unavailable Laura Mock MD, DMD Primary Car e Provider Laura Mock MD, DMD Unavailable Laura Mock MD, DMD Unavailable Jakob Bob MD Unavailable Jose Cruz MD Unavailable [phone] Laura Mock MD, DMD Unavailable Pcp, Unknown [...] st Contact Info) Description 05/24/2024 Procedure Pass [facility] Radiology 75 [place] [address] 11/24/2024 1:15 PM EDT Appointment [facility] Radiology 75 [place] [address] Jim Zacarias MD [address] [address] [email or web address] 11/24/2024 2:15 PM EDT Office Visit [facility] Thoracic Surgery 15 [facility] 204 [place] [address] Jim Zacarias MD [address] [address] [email or web address] 01/31/2025 1:00 PM EST Office Visit [facility] Cardiovascular Medicine 32 [facility], 5th Floor, [address] [place] [address] Karena Betancur MD 55 [facility] 5[address] [place] [address] [email or web address] [...] documented as of this encounter Care Teams Application Development Intern Relationship Specialty Start Date End Date Laura Mock MD, DMD [address] [address] [email or web address] du PCP - General Internal Medicine 06/04/21 11/11/23 Pcp, Unknown PCP - General 11/12/23 11/16/23 Laura Mock MD, DMD [address] [address] [email or web address] du PCP - General Internal Medicine 11/17/23 12/28/23 Pcp, Unknown PCP - General 02/28/24 03/04/24 Nicole Newell MD [address] [place] [address] PCP - General 03/05/24 05/17/24 Laura Mock MD, DMD [address] [address] [email or web address] PCP - General Internal Medicine 05/18/24 Rina Swenson MD Psychiatry 07/09/17 Laura Mock MD, DMD [address] [address] [email or web address]. du Partners Attributed Provider 09/01/21 07/03/23 Laura Mock MD, DMD [address] [address] [email or web address]. du Insurance Assigned Provider 05/31/23 03/01/24 Jakob Bob MD [address] [place] [address] [email or web address] Cardiology 08/22/23 Jose Cruz MD [address] [place] [address], [address] [address] [email or web address] Cardiology 08/22/23 Laura Mock MD, DMD [address] [address] [email or web address]. du Partners Attributed Provider 09/01/21 07/03/23 [facility] [phone]. Consulting Provider 08/22/23 [facility] Connect 12/24/23 03/11/24 Cyril Morales [address] [place] [address] Nurse Practitioner 02/27/24 documented as of this encounter Additional Source Comments The information contained in this document represents components of the legal health record. It is not the complete legal health record.[facility]
--- OUTSIDE RECORDS SUMMARY | 2024-10-28 15:19 | XMS_ITS | Encounter Summary ---
Author Organization [facility] Address [address] [place] [address] Phone Care Team Providers Care 411 Directory Assistance Operator Name Role Phone Rina Swenson MD Unavailable Laura Mock MD, DMD Primary Car e Provider Laura Mock MD, DMD Unavailable Laura Mock MD, DMD Unavailable Jakob Bob MD Unavailable Jose Cruz MD Unavailable [phone] Laura Mock MD, DMD Unavailable Pcp, Unknown Primary Care Provider UnavailLaura Ascencio MD, DMD Primary Car e Provider Pcp, Unknown Primary Care Provider UnavailNicole Arguello MD Primary Care Provide r Laura Mock MD, DMD Primary Car e Provider Encounter Details Date Type Department Care Team (Late st Contact Info) Description 01/21/2023 Anti-coag visit [facility] Anticoagulation Clinic 75 [place] [address] Purvi Lawler, PharmD [address] [place] [address] [email or web address] Social History Tobacco Use Types Packs/Day Years [...] Procedure Pass [facility] Radiology [address] [place] [address] 11/24/2024 1:15 PM EDT Appointment [facility] Radiology [address] [place] [address] Jim Zacarias MD [address] [place] [address] [email or web address] 11/24/2024 2:15 PM EDT Office Visit [facility] Thoracic Surgery 15 [facility] 204 [place] [address] Jim Zacarias MD [address] [place] [address] [email or web address] 01/31/2025 1:00 PM EST Office Visit [facility] Cardiovascular Medicine [address] [place] [address], 5th Floor, [address] [place] [address] Karena Betancur MD 55 [facility] [address] [place] [address] [email or web address] Scheduled Procedures Name Priority Associated [...] documented as of this encounter Care Teams 411 Directory Assistance Operator Relationship Specialty Start Date End Date Laura Mock MD, DMD [address] [address] [email or web address] du PCP - General Internal Medicine 06/04/21 11/11/23 Pcp, Unknown PCP - General 11/12/23 11/16/23 Laura Mock MD, DMD [address] [address] [email or web address] du PCP - General Internal Medicine 11/17/23 12/28/23 Pcp, Unknown PCP - General 02/28/24 03/04/24 [place] [address] [address] PCP - General 03/05/24 05/17/24 Laura Mokc MD, DMD [address] [address] [email or web address] du PCP - General Internal Medicine 05/18/24 Rina Swenson MD Psychiatry 07/09/17 Laura Mock MD, DMD [address] [address] [email or web address] Partners Attributed Provider 09/01/21 07/03/23 Laura Mock MD, DMD [address] [address] [email or web address] du Insurance Assigned Provider 05/31/23 03/01/24 Jakob Bob MD [address] [place] [address] [email or web address] Cardiology 08/22/23 Jose Cruz MD [address] [place] [address], [address] [place] [address] Cardiology 08/22/23 Laura Mock MD, DMD [address] [address] [email or web address] Partners Attributed Provider 09/01/21 07/03/23 [facility] [phone]. Consulting Provider 08/22/23 [facility] Connect 12/24/23 03/11/24 Cyril Morales [address] [place] [address] Nurse Practitioner 02/27/24 documented as of this encounter Additional Source Comments The information contained in this document represents components of the legal health record. It is not the complete legal health record.[facility]
--- OUTSIDE RECORDS SUMMARY | 2024-10-28 15:19 | XMS_ITS | Encounter Summary ---
Author Organization [facility] Address [facility] [employer] [address] [address] Phone Care Team Providers Care Porcelain Slusher Name Role Phone Artie Meehan MD Unavailable Rina Swenson MD Unavailable Laura Mock MD, DMD Primary Car e Provider Laura Mock MD, DMD Unavailable Laura Mock MD, DMD Unavailable Jakob Bob MD Unavailable Jose Cruz MD Unavailable [phone] Laura Mock MD, DMD Unavailable Pcp, Unknown [...] Procedure Pass [facility] [address] [place] [address] 11/24/2024 1:15 PM EDT Appointment [facility] [address] [place] [address] Jim Zacarias MD [address] [address] [email or web address] 11/24/2024 2:15 PM EDT Office Visit [facility] Thoracic Surgery 15 [facility] 204 [place] [address] Jim Zacarias MD [address] [address] [email or web address] 01/31/2025 1:00 PM EST Office Visit [facility] Cardi[place] Medicine 32 [facility], 5th Floor, [address] [place] [address] Karena Betancur MD 55 [facility] [address] [place] [address] [email or web address] Scheduled Procedures Name Priority Associated [...] documented as of this encounter Care Teams Porcelain Slusher Relationship Specialty Start Date End Date Laura oMck MD, DMD 1 [facility] 225 [place] [address] [email or web address] PCP - General Internal Medicine 06/04/21 11/11/23 Pcp, Unknown PCP - General 11/12/23 11/16/23 Laura Mock MD, DMD [address] [address] [email or web address] PCP - General Internal Medicine 11/17/23 12/28/23 Pcp, Unknown PCP - General 02/28/24 03/04/24 Nicole Newell MD [address] [place] [address] PCP - General 03/05/24 05/17/24 Laura Mock MD, DMD [address] [address] [email or web address] PCP - General Internal Medicine 05/18/24 Artie Meehan MD [address] [place] [address] [place] [address] Internal Medicine 10/26/17 04/23/22 Rina Swenson MD [address] [place] [address] [place] [address] Psychiatry 07/09/17 Laura Mock MD, DMD [address] [address] [email or web address] Attributed Provider 09/01/21 07/03/23 Laura Mock MD, DMD [address] [address] [email or web address] Insurance Assigned Provider 05/31/23 03/01/24 Jakob Bob MD [address] [place] [address] [email or web address] Cardiology 08/22/23 Jose Cruz MD [address] [place] [address], [address] [place] [address] Cardiology 08/22/23 Laura Mock MD, DMD [address] [address] [email or web address] Attributed Provider 09/01/21 07/03/23 [facility] [phone]. Consulting Provider 08/22/23 [facility] Connect 12/24/23 03/11/24 Cyril Morales [address] [place] [address] Nurse Practitioner 02/27/24 documented as of this encounter Additional Source Comments The information contained in this document represents components of the legal health record. It is not the complete legal health record.[facility]
--- OUTSIDE RECORDS SUMMARY | 2024-10-28 15:20 | XMS_ITS | Encounter Summary ---
Author Organization [facility] Address [facility] [employer] [address] [address] Phone Care Team Providers Care Abrasive Worker Name Role Phone Rina Swenson MD [...] st Contact Info) Description 05/24/2024 Procedure Pass [facility] Radiology 75 [place] [address] 11/24/2024 1:15 PM EDT Appointment [facility] 75 [place] [address] Jim Zacarias MD [address] [address] [email or web address] 11/24/2024 2:15 PM EDT Office Visit [facility] Thoracic Surgery 15 [facility] 204 [place] [address] Jim Zacarias MD [address] [address] [email or web address] 01/31/2025 1:00 PM EST Office Visit [facility] 32 [facility], 5th Floor, [address] [place] [address] Karena Betancur MD 55 [facility] [address]B [place] [address] [email or web address] Scheduled Procedures Name Priority Associated [...] documented as of this encounter Care Teams Abrasive Worker Relationship Specialty Start Date End Date Laura Mock MD, DMD [address] [address] [email or web address] PCP - General Internal Medicine 06/04/21 11/11/23 Pcp, Unknown PCP - General 11/12/23 11/16/23 Laura Mock MD, DMD [address] [address] [email or web address] PCP - General Internal Medicine 11/17/23 12/28/23 Pcp, Unknown PCP - General 02/28/24 03/04/24 Nicole Newell MD [address] [place] [address] PCP - General 03/05/24 05/17/24 Laura Mock MD, DMD [address] [address] [email or web address] PCP - General Internal Medicine 05/18/24 Rina Swenson MD Psychiatry 07/09/17 Laura Mock MD, DMD [address] [address] [email or web address] [employer] Attributed Provider 09/01/21 07/03/23 Laura Mock MD, DMD [address] [address] [email or web address] Insurance Assigned Provider 05/31/23 03/01/24 Jakob Bob MD [address] [place] [address] [email or web address] Cardiology 08/22/23 Jose Cruz MD [address] [place] [address], [address] [address] [email or web address] Cardiology 08/22/23 Laura Mock MD, DMD [address] [address] [email or web address] Partners Attributed Provider 09/01/21 07/03/23 [facility] [phone]. Consulting Provider 08/22/23 [facility] Connect 12/24/23 03/11/24 Cyril Morales [address] [place] [address] Nurse Practitioner 02/27/24 documented as of this encounter Additional Source Comments The information contained in this document represents components of the legal health record. It is not the complete legal health record.[facility]
--- OUTSIDE RECORDS SUMMARY | 2024-10-28 15:20 | XMS_ITS | Encounter Summary ---
Author Organization [facility] Address [address] [place] [address] Phone Care Team Providers Care Counseling Center Manager Name Role Phone Rina Swenson MD Unavailable Jakob Bob MD Unavailable Jose Cruz MD Unavailable Laura Mock MD, DMD Primary Car e Provider Reason for Visit * Reason Onset Date Comments Colonoscopy 10/13/2024 Encounter Details Date Type Department Care Team (Late st Contact Info) Description 10/13/2024 Telephone [facility] [address] 2nd [place] [address] Laura Mock MD, DMD 1 [facility] [address] [place] [address] [email or web address] Colonoscopy Social History Tobacco Use Types Packs/Day [...] st Contact Info) Description 05/24/2024 Procedure Pass [facility] [address] [place] [address] 11/24/2024 1:15 PM EDT Appointment [facility] [address] [place] [address] Jim Zacarias MD [address] [address] [email or web address] 11/24/2024 2:15 PM EDT Office Visit [facility] Thoracic Surgery [address] [address] Jim Zacarias MD 75 [facility] [address] [place] [address] [email or web address] 01/31/2025 1:00 PM EST Office Visit [facility] Cardiovascular Medicine 32 [facility], 5th Floor, [address] [place] [address] Karena Betancur MD 55 [facility] 5B [place] [address] [email or web address] Scheduled Procedures Name Priority Associated Diagnoses Date/Ti me COLONOSCOPY Abnormal colonoscopy documented as of this encounter Visit Diagnoses Not on filedocumented in this encounter Additional Health Concerns Assessment Noted Time PHQ-9 Depression Total Score: 17 04/24/ 023 11:28 AM EST PHQ-2 Depression Total Score: 2 10/10/19 23 11:28 AM EDT documented as of this encounter Care Teams Counseling Center Manager Relationship Specialty Start Date End Date Laura Mock MD, DMD 1 [facility] 225 [place] [address] [email or web address] PCP - General Internal Medicine 05/18/24 Rina Swenson MD Psychiatry 07/09/17 Jakob Bob MD [address] [place] [address] [email or web address] Cardiology 08/22/23 Jose Cruz MD 22 [facility], [address] [place] [address] [email or web address] Cardiology 08/22/23 [facility] [phone]. Consulting Provider 08/22/23 Cyril Morales [address] [place] [address] Nurse Practitioner 02/27/24 documented as of this encounter Additional Source Comments The information contained in this document represents components of the legal health record. It is not the complete legal health record.[facility]
--- OUTSIDE RECORDS SUMMARY | 2024-10-28 15:20 | XMS_ITS | Patient Health Record ---
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
--- OUTSIDE RECORDS SUMMARY | 2024-10-28 15:20 | XMS_ITS | Encounter Summary ---
Author Organization [facility] Address [facility] [employer] [address] [address] Phone Care Team Providers Care Accounts Payable Manager Name Role Phone Artie Meehan MD [...] st Contact Info) Description 08/07/2021 Anti-coag visit [facility]tico[facility] Clinic [address] [place] [address] Kenyatta Gamez, PharmD [email or web address] Social History Tobacco Use Types Packs/Day [...] Upcoming Encounters Date Type Department Care Team ([facility] st Contact Info) Description 05/24/2024 Procedure Pass [facility] Radiology [address] [place] [address] 11/24/2024 1:15 PM EDT Appointment [facility] Radiology [address] [place] [address] Jim Zacarias MD [address] [address] [email or web address] 11/24/2024 2:15 PM EDT Office Visit [facility] Thoracic Surgery 15 [facility] 204 [place] [address] Jim Zacarias MD [address] [address] [email or web address] 01/31/2025 1:00 PM EST Office Visit [facility] Medicine 32 [facility], 5th Floor, [address] [place] [address] Karena Betancur MD 55 [facility] 5[address] [place] [address] [email or web address] Scheduled Procedures Name Priority Associated [...] documented as of this encounter Care Teams Accounts Payable Manager Relationship Specialty Start Date End Date Laura Mock MD, DMD [address] [address] [email or web address] PCP - General Internal Medicine 06/04/21 11/11/23 Pcp, Unknown PCP - General 11/12/23 11/16/23 Laura Mock MD, DMD [address] [address] [email or web address] PCP - General Internal Medicine 11/17/23 12/28/23 Pcp, Unknown PCP - General 02/28/24 03/04/24 Nicole Newell MD [address] [place] [address] PCP - General 03/05/24 05/17/24 Laura Mock MD, DMD [address] [address] [email or web address] PCP - General Internal Medicine 05/18/24 Artie Meehan MD [address] [place] [address] [facility] [place] [address] Internal Medicine 10/26/17 04/23/22 Rina Swenson MD [address] [place] [address] [place] [address] Psychiatry 07/09/17 Laura Mock MD, DMD [address] [address] [email or web address] du Partners Attributed Provider 09/01/21 07/03/23 Laura Mock MD, DMD [address] [address] [email or web address] du Insurance Assigned Provider 05/31/23 03/01/24 Jakob Bob MD [address] [place] [address] [email or web address] Cardiology 08/22/23 Jose Cruz MD [address] [place] [address] [email or web address] Cardiology 08/22/23 Laura Mock MD, DMD [address] [address] [email or web address] Partners Attributed Provider 09/01/21 07/03/23 [facility] [phone]. Consulting Provider 08/22/23 [facility] Connect 12/24/23 03/11/24 Cyril Morales [address] [place] [address] Nurse Practitioner 02/27/24 documented as of this encounter Additional Source Comments The information contained in this document represents components of the legal health record. It is not the complete legal health record.[facility]
--- OUTSIDE RECORDS SUMMARY | 2024-10-28 15:20 | XMS_ITS | Encounter Summary ---
Author Organization [facility] Address [address] [place] [address] Phone Care Team Providers Care Gi Physician Name Role Phone Rina Swenson MD Unavailable Jakob Bob MD Unavailable Jose Cruz MD Unavailable [phone] Laura Mock MD, DMD Primary Car e Provider Encounter Details Date Type Department Care Team (Late st Contact Info) Description 08/18/2024 Hospital Encounter [facility] Endoscopy Department [address] [place] [address] Irineo Ruff MD [address] [place] [address] [place] [address] [email or web address] U Social History Tobacco Use Types Packs/Day [...] 05/24/2024 Procedure Pass [facility] Radiology [address] [place] [address] 11/24/2024 1:15 PM EDT Appointment [facility] Radiology [address] [place] [address] Jim Zacarias MD [address] [address] [email or web address] 11/24/2024 2:15 PM EDT Office Visit [facility] Thoracic Surgery [address] [address] Jim Zacarias MD [address] [address] [email or web address] 01/31/2025 1:00 PM EST Office [place] [facility] [place] 32 [facility], 5th Floor, [address] [place] [address] Karena Betancur MD [address] [address] [email or web address] Scheduled Procedures Name Priority Associated Diagnoses Date/Ti me COLONOSCOPY Abnormal colonoscopy documented as of this encounter Visit Diagnoses Not on filedocumented in this encounter Additional Health Concerns Assessment Noted Time PHQ-9 Depression Total Score: 17 023 11:28 AM EST PHQ-2 Depression Total Score: 2 10/10/19 23 11:28 AM EDT documented as of this encounter Care Teams Gi Physician Relationship Specialty Start Date End Date Laura Mock MD, DMD 1 [facility] 225 [place] [address] [email or web address] PCP - General Internal Medicine 05/18/24 Rina Swenson MD Psychiatry 07/09/17 Jakob Bob MD [address] [place] [address] [email or web address] Cardiology 08/22/23 Jose Cruz MD 22 [facility] [address] [place] [address] [email or web address] Cardiology 08/22/23 [facility] [phone]. Consulting Provider 08/22/23 Cyril Morales [facility] [place] [address] Nurse Practitioner 02/27/24 documented as of this encounter Additional Source Comments The information contained in this document represents components of the legal health record. It is not the complete legal health record.[facility]
--- OUTSIDE RECORDS SUMMARY | 2024-10-28 15:20 | XMS_ITS | Encounter Summary ---
Author Organization [facility] Address [address] [place] [address] Phone Care Team Providers Care Sheeter Waxer Operator Name Role Phone Rina Swenson MD Unavailable Jakob Bob MD Unavailable [phone] Jose Cruz MD Unavailable [phone] Laura Mock MD, DMD Primary Car e Provider Reason for Visit * Reason Comments Medication Refill Encounter Details Date Type Department Care Team (Late st Contact Info) Description 07/24/2024 Refill [facility] [address] [place] [address] 3rd Floor, [address] [place], [place] [phone] Jose Cruz MD [address] [place] [address], [address] [phone] [email or web address] Medication Refill Social History [...] st Contact Info) Description 05/24/2024 Procedure Pass [facility] Radiology [address] [place] [address] 11/24/2024 1:15 PM EDT Appointment [facility] Radiology [address] [place] [address] Jim Zacarias MD [address] [place] [address] [email or web address] 11/24/2024 2:15 PM EDT Office Visit [facility] Thoracic Surgery 15 [facility] 204 [place] [address] Jim Zacarias MD [address] [place] [address] [email or web address] 01/31/2025 1:00 PM EST Office [facility] Cardiovascular Medicine [address] [place] [address], 5th Floor, [address] [place] [address] Karena Betancur MD [address] [address] [email or web address] Scheduled Procedures Name Priority Associated Diagnoses Date/Ti me COLONOSCOPY Abnormal colonoscopy documented as of this encounter Visit Diagnoses Not on filedocumented in this encounter Additional Health Concerns Assessment Noted Time PHQ-9 Depression Total Score: 17 023 11:28 AM EST PHQ-2 Depression Total Score: 2 10/10/19 23 11:28 AM EDT documented as of this encounter Care Teams Sheeter Waxer Operator Relationship Specialty Start Date End Date Laura Mock MD, DMD 1 [facility] 225 [place] [address] [email or web address] PCP - General Internal Medicine 05/18/24 Rina Swenson MD Psychiatry 07/09/17 Jakob Bob MD [address] [place] [address] [email or web address] Cardiology 08/22/23 Jose Cruz MD 22 [facility] [address] [place] [address] [email or web address] Cardiology 08/22/23 [facility] [phone]. Consulting Provider 08/22/23 Cyril Morales [facility] [place] [address] Nurse Practitioner 02/27/24 documented as of this encounter Additional Source Comments The information contained in this document represents components of the legal health record. It is not the complete legal health record.[facility]
--- OUTSIDE RECORDS SUMMARY | 2024-10-28 15:20 | XMS_ITS | Encounter Summary ---
Author Organization [facility] Address [facility] [employer] [address] [address] Phone Care Team Providers Care Instrumentation Engineer Name Role Phone Rina Swenson MD [...] st Contact Info) Description 05/24/2024 Procedure Pass [facility] Radiology 75 [place] [address] 11/24/2024 1:15 PM EDT Appointment [facility] Radiology 75 [place] [address] Jim Zacarias MD [address] [address] [email or web address] 11/24/2024 2:15 PM EDT Office Visit [facility] Thoracic Surgery 15 [facility] 204 [place] [address] Jim Zacarias MD [address] [address] [email or web address] 01/31/2025 1:00 PM EST Office Visit [facility] Cardiovascular Medicine 32 [facility], 5th Floor, [address] [place] [address] Karena Betancur MD 55 [facility] 5B [place] [address] [email or web address] Scheduled Procedures Name Priority Associated Diagnoses [...] documented as of this encounter Care Teams Instrumentation Engineer Relationship Specialty Start Date End Date Laura Mock MD, DMD [address] [address] [email or web address] PCP - General Internal Medicine 06/04/21 11/11/23 Pcp, Unknown PCP - General 11/12/23 11/16/23 Laura Mock MD, DMD [address] [address] [email or web address] PCP - General Internal Medicine 11/17/23 12/28/23 Pcp, Unknown PCP - General 02/28/24 03/04/24 Nicole Newell MD [address] [place] [address] PCP - General 03/05/24 05/17/24 Laura Mock MD, DMD [address] [address] [email or web address] PCP - General Internal Medicine 05/18/24 Rina Swenson MD Psychiatry 07/09/17 Laura Mock MD, DMD [address] [address] [email or web address] Partners Attributed Provider 09/01/21 07/03/23 Laura Mock MD, DMD [address] [address] [email or web address] Insurance Assigned Provider 05/31/23 03/01/24 Jakob Bob MD [address] [place] [address] [email or web address] Cardiology 08/22/23 Jose Cruz MD [address] [place] [address], [address] [address] [email or web address] Cardiology 08/22/23 Laura Mock MD, DMD [address] [address] [email or web address] Attributed Provider 09/01/21 07/03/23 [facility] [phone]. Consulting Provider 08/22/23 [facility] Connect 12/24/23 03/11/24 Cyril Morales [address] [place] [address] Nurse Practitioner 02/27/24 documented as of this encounter Additional Source Comments The information contained in this document represents components of the legal health record. It is not the complete legal health record.[facility]
--- OUTSIDE RECORDS SUMMARY | 2024-10-28 15:20 | XMS_ITS | Encounter Summary ---
Author Organization [facility] Address [facility] [employer] [facility] [address] [place] [address] Phone Care Team Providers Care Ice Cream Vendor Name Role Phone Rina Swenson MD Unavailable Laura Mock MD, DMD Primary Car e Provider Laura Mock MD, DMD Unavailable Laura Mock MD, DMD Unavailable Jakob Bob MD Unavailable [phone] Jose Curz MD Unavailable Laura Mock MD, DMD Unavailable Pcp, Unknown Primary Care Provider UnavailLaura Ascencio MD, DMD Primary Car e Provider Pcp, Unknown Primary Care Provider UnavailNicole Arguello MD Primary Care Provide r Laura Mock MD, DMD Primary Car e Provider Encounter Details Date Type Department Care Team (Late st Contact Info) Description 05/10/2022 Anti-coag visit [facility] Anticoagulation Clinic 75 [place], [place] [id number] Melvin Stewart, [facility] [address] [place] [address] [email or web address] Social History Tobacco Use Types Packs/Day [...] Upcoming Encounters Date Type Department Care Team ([facility] st Contact Info) Description 05/24/2024 Procedure Pass [facility] Radiology [address] [place] [address] 11/24/2024 1:15 PM EDT Appointment [facility] Radiology [address] [place] [address] Jim Zacarias MD [address] [address] [email or web address] 11/24/2024 2:15 PM EDT Office Visit [facility] Thoracic Surgery 15 [facility] [address] [place] [address] Jim Zacarias MD [address] [address] [email or web address] 01/31/2025 1:00 PM EST Office Visit [facility] Cardiovascular Medicine 32 [facility], 5th Floor, [address] [place] [address] Karena Betancur MD 55 [facility] [address] [place] [address] [email or web address] Scheduled Procedures Name Priority Associated [...] documented as of this encounter Care Teams Ice Cream Vendor Relationship Specialty Start Date End Date Laura Mock MD, DMD [address] [address] [email or web address] PCP - General Internal Medicine 06/04/21 11/11/23 Pcp, Unknown PCP - General 11/12/23 11/16/23 Laura Mock MD, DMD [address] [address] [email or web address] PCP - General Internal Medicine 11/17/23 12/28/23 Pcp, Unknown PCP - General 02/28/24 03/04/24 Nicole Newell MD [address] [place] [address] PCP - General 03/05/24 05/17/24 Laura Mock MD, DMD [address] [address] [email or web address] du PCP - General Internal Medicine 05/18/24 Rina Swenson MD Psychiatry 07/09/17 Laura Mock MD, DMD 1 [facility] [address] [place] [address] [email or web address] du Partners Attributed Provider 09/01/21 07/03/23 Laura Mock MD, DMD [address] [address] [email or web address] du Insurance Assigned Provider 05/31/23 03/01/24 Jakob Bob MD [address] [place] [address] [email or web address] Cardiology 08/22/23 Jose Cruz MD [address] [place] [address] Cardiology 08/22/23 Laura Mock MD, DMD [address] [address] [email or web address]. du Partners Attributed Provider 09/01/21 07/03/23 [facility] [phone]. Consulting Provider 08/22/23 [facility] Connect 12/24/23 03/11/24 Cyril Morales [address] [place] [address] Nurse Practitioner 02/27/24 documented as of this encounter Additional Source Comments The information contained in this document represents components of the legal health record. It is not the complete legal health record.[facility]
--- OUTSIDE RECORDS SUMMARY | 2024-10-28 15:20 | XMS_ITS | Encounter Summary ---
Author Organization [facility] Address [address] [facility] [address] [place] [address] Phone Care Team Providers Care Winter Sports Manager Name Role Phone Artie Meehan MD Primary Care Provider Artie Meehan MD Unavailable Rina Swenson MD Unavailable Laura Mock MD, DMD Primary Car e Provider Laura Mock MD, DMD Unavailable Laura Mock MD, DMD Unavailable Jakob Bob MD Unavailable Jose Cruz MD Unavailable [phone] Laura Mock MD, DMD Unavailable Pcp, Unknown Primary Care Provider UnavailLaura Ascencio MD, DMD Primary Car e Provider Pcp, Unknown Primary Care Provider UnavailNicole Arguello MD Primary Care Provide r Laura Mock MD, DMD Primary Car e Provider Encounter Details Date Type Department Care Team (Late st Contact Info) Description 05/03/2021 Procedure Pass [facility] Radiology [address] [place] [address] Social History Tobacco Use Types Packs/Day Years [...] Upcoming Encounters Date Type Department Care Team ([facility] Contact Info) Description 05/24/2024 Procedure Pass [facility] Radiology 75 [place] [address] 11/24/2024 1:15 PM EDT Appointment [facility] Radiology 75 [place] [address] Jim Zacarias MD [address] [address] [email or web address] 11/24/2024 2:15 PM EDT Office Visit [facility] Thoracic Surgery 15 [facility] [address] [place] [address] Jim Zacarias MD [address] [address] [email or web address] 01/31/2025 1:00 PM EST Office Visit [facility] Cardiovascular Medicine 32 [facility], 5th Floor, [address] [place] [address] Karena Betancur MD 55 [facility] [address] [place] [address] [email or web address] Scheduled Procedures Name Priority Associated [...] documented as of this encounter Care Teams Winter Sports Manager Relationship Specialty Start Date End Date Artie Meehan MD [address] [place] [address] Dr [place] [facility] [place] [address] PCP - General Internal Medicine 10/26/17 06/03/21 Laura Mock MD, DMD [address] [address] [email or web address] PCP - General Internal Medicine 06/04/21 11/11/23 Pcp, Unknown PCP - General 11/12/23 11/16/23 Laura Mock MD, DMD [address] [address] [email or web address] du PCP - General Internal Medicine 11/17/23 12/28/23 Pcp, Unknown PCP - General 02/28/24 03/04/24 [place] [address] [place] [address] PCP - General 03/05/24 05/17/24 Laura Mock MD, DMD [address] [address] [email or web address] PCP - General Internal Medicine 05/18/24 Artie Meehan MD [address] [place] [address] Dr Dior Elisabeth YOLIE GROVES [address] Internal Medicine 10/26/17 04/23/22 Rina Swenson MD [address] [place] [address] [place] [address] Psychiatry 07/09/17 Laura Mock MD, DMD [address] [address] [email or web address]. du Partners Attributed Provider 09/01/21 07/03/23 Laura Mock MD, DMD [address] [address] [email or web address] du Insurance Assigned Provider 05/31/23 03/01/24 Jakob Bob MD [address] [place] [address] [email or web address] Cardiology 08/22/23 Jose Cruz MD [address] [place] [address] Cardiology 08/22/23 Laura Mock MD, DMD [address] [address] [email or web address]. du Partners Attributed Provider 09/01/21 07/03/23 [facility] [phone]. Consulting Provider 08/22/23 [facility] Connect 12/24/23 03/11/24 Cyril Morales [address] [place] [address] Nurse Practitioner 02/27/24 documented as of this encounter Additional Source Comments The information contained in this document represents components of the legal health record. It is not the complete legal health record.[facility]
--- OUTSIDE RECORDS SUMMARY | 2024-10-28 15:20 | XMS_ITS | Encounter Summary ---
Author Organization [facility] Address [facility] [address] [place] [address] Phone Care Team Providers Care [employer] Registrar Name Role Phone Rina Swenson MD Unavailable Laura Mock MD, DMD Primary Car e Provider Laura Mock MD, DMD Unavailable Laura Mock MD, DMD Unavailable Jakob Bob MD Unavailable [phone] Jose Cruz MD Unavailable Laura Mock MD, DMD Unavailable Pcp, Unknown Primary Care Provider UnavailLaura Ascencio MD, DMD Primary Car e Provider Pcp, Unknown Primary Care Provider UnavailNicole Arguello MD Primary Care Provide r Laura Mock MD, DMD Primary Car e Provider Encounter Details Date Type Department Care Team (Late st Contact Info) Description 10/26/2022 Anti-coag visit [facility] Anticoagulation Clinic 75 [place], [place] [id number] Melvin Stewart, [facility] [address] [place] [address] [email or web address] Social History Tobacco Use Types Packs/Day [...] Procedure Pass [facility] Radiology [address] [place] [address] 11/24/2024 1:15 PM EDT Appointment [facility] Radiology [address] [place] [address] Jim Zacarias MD [address] [place] [address] [email or web address] 11/24/2024 2:15 PM EDT Office Visit [facility] Thoracic Surgery 15 [facility] [address] [place] [address] Jim Zacarias MD [address] [place] [address] [email or web address] 01/31/2025 1:00 PM EST Office Visit [facility] Cardiovascular Medicine [address] [place] [address], 5th Floor, [address] [place] [address] Karena Betancur MD 55 [facility] [address] [place] [address] [email or web address] Scheduled Procedures Name Priority Associated [...] documented as of this encounter Care Teams [employer] Registrar Relationship Specialty Start Date End Date Laura Mock MD, DMD [address] [address] [email or web address], [email or web address] du PCP - General Internal Medicine 06/04/21 11/11/23 Pcp, Unknown PCP - General 11/12/23 11/16/23 Laura Mock MD, DMD [address] [address] [email or web address], [facility].e du PCP - General Internal Medicine 11/17/23 12/28/23 Pcp, Unknown PCP - General 02/28/24 03/04/24 [place] [address] [address] PCP - General 03/05/24 05/17/24 Laura Mock MD, DMD [address] [address] [email or web address], [facility].e du PCP - General Internal Medicine 05/18/24 Rina Swenson MD Psychiatry 07/09/17 Laura Mock MD, DMD [address] [address] [email or web address], [facility]e du Partners Attributed Provider 09/01/21 07/03/23 Laura Mock MD, DMD [address] [address] [email or web address], [facility].e du Insurance Assigned Provider 05/31/23 03/01/24 Jakob Bob MD [address] [place] [address] [email or web address] Cardiology 08/22/23 Jose Cruz MD [address] [place] [address] [address] [place] [address] Cardiology 08/22/23 Laura Mock MD, DMD [address] [address] [email or web address], [facility]. du Partners Attributed Provider 09/01/21 07/03/23 [facility] [phone]. Consulting Provider 08/22/23 [facility] Connect 12/24/23 03/11/24 Cyril Morales [address] [place] [address] Nurse Practitioner 02/27/24 documented as of this encounter Additional Source Comments The information contained in this document represents components of the legal health record. It is not the complete legal health record.[facility]
--- OUTSIDE RECORDS SUMMARY | 2024-10-28 15:20 | XMS_ITS | Encounter Summary ---
Author Organization [facility] Address [address] [place] [address] Phone Care Team Providers Care Bottle Label Inspector Name Role Phone Rina Swenson MD Unavailable Laura Mock MD, DMD Primary Car e Provider Laura Mock MD, DMD Unavailable Laura Mock MD, DMD Unavailable Jakob Bob MD Unavailable [phone] Jose Cruz MD Unavailable Laura Mock MD, DMD Unavailable Pcp, Unknown Primary Care Provider UnavailLaura Ascencio MD, DMD Primary Car e Provider Pcp, Unknown Primary Care Provider UnavailNicole Arguello MD Primary Care Provide r Laura Mock MD, DMD Primary Car e Provider Encounter Details Date Type Department Care Team (Late st Contact Info) Description 10/29/2022 Anti-coag visit [facility] Cardiovascular Health [address] [place] [address] Thibeault, Catherine NasrinLatricia [email or web address] Social History Tobacco Use Types [...] st Contact Info) Description 05/24/2024 Procedure Pass [facility] Radiology [address] [place] [address] 11/24/2024 1:15 PM EDT Appointment [facility] Radiology [address] [place] [address] Jim Zacarias MD [address] [address] [email or web address] 11/24/2024 2:15 PM EDT Office Visit [facility] Thoracic Surgery 15 [facility] 204 [place] [address] Jim Zacarias MD [address] [address] [email or web address] 01/31/2025 1:00 PM EST Office Visit [facility] Cardiovascular Medicine 32 [facility], 5th Floor, [address] [place] [address] Karena Betancur MD [address] [place] [address] [address] [place] [address] [email or web address] Scheduled Procedures Name Priority [...] as of this encounter Care Teams Bottle Label Inspector Relationship Specialty Start Date End Date Laura Mock MD, DMD [address] [address] [email or web address] du PCP - General Internal Medicine 06/04/21 11/11/23 Pcp, Unknown PCP - General 11/12/23 11/16/23 Laura Mock MD, DMD [address] [address] [email or web address] du PCP - General Internal Medicine 11/17/23 12/28/23 Pcp, Unknown PCP - General 02/28/24 03/04/24 [place] [address] [address] PCP - General 03/05/24 05/17/24 Laura Mock MD, DMD [address] [address] [email or web address] PCP - General Internal Medicine 05/18/24 Rina Swenson MD Psychiatry 07/09/17 Laura Mock MD, DMD [address] [address] [email or web address]. du Partners Attributed Provider 09/01/21 07/03/23 Laura Mock MD, DMD [address] [address] [email or web address] du Insurance Assigned Provider 05/31/23 03/01/24 Jakob Bob MD [address] [place] [address] [email or web address] Cardiology 08/22/23 Jose Cruz MD [address] [place] [address] [email or web address] Cardiology 08/22/23 Laura Mock MD, DMD [address] [address] [email or web address]. du Partners Attributed Provider 09/01/21 07/03/23 [facility] [phone]. Consulting Provider 08/22/23 [facility] Connect 12/24/23 03/11/24 Cyril Morales [address] [place] [phone] Nurse Practitioner 02/27/24 documented as of this encounter Additional Source Comments The information contained in this document represents components of the legal health record. It is not the complete legal health record.[facility]
--- OUTSIDE RECORDS SUMMARY | 2024-10-28 15:20 | XMS_ITS | Encounter Summary ---
Author Organization [facility] Address [address] [place] [address] Phone Care Team Providers Care Oncologist Name Role Phone Rina Swenson MD Unavailable Laura Mock MD, DMD Primary Car e Provider Laura Mock MD, DMD Unavailable Laura Mock MD, DMD Unavailable Jakob Bob MD Unavailable Jose Cruz MD Unavailable [phone] Laura Mock MD, DMD Unavailable Pcp, Unknown Primary Care Provider UnavailLaura Ascencio MD, DMD Primary Car e Provider Pcp, Unknown Primary Care Provider UnavailNicole Arguello MD Primary Care Provide r Laura Mock MD, DMD Primary Car e Provider Encounter Details Date Type Department Care Team (Late st Contact Info) Description 04/25/2022 Anti-coag visit [facility] Anticoagulation Clinic [address] [place] [address] Kenyatta Gamez, PharmDanyell [email or web address] Social History Tobacco Use Types Packs/Day Years [...] Procedure Pass [facility] Radiology [address] [place] [address] 11/24/2024 1:15 PM EDT Appointment [facility] Radiology [address] [place] [address] Jim Zacarias MD [address] [address] [email or web address] 11/24/2024 2:15 PM EDT Office Visit [facility] Thoracic Surgery 15 [facility] [address] [place] [address] Jim Zacarias MD [address] [address] [email or web address] 01/31/2025 1:00 PM EST Office Visit [facility] Cardiovascular Medicine 32 [facility], 5th Floor, [address] [place] [address] Karena Betancur MD 55 [facility] 5[address] [place] [address] [email or web address] Scheduled Procedures Name Priority Associated [...] documented as of this encounter Care Teams Oncologist Relationship Specialty Start Date End Date Laura Mock MD, DMD [address] [address] [email or web address] du PCP - General Internal Medicine 06/04/21 11/11/23 Pcp, Unknown PCP - General 11/12/23 11/16/23 Laura Mock MD, DMD [address] [address] [email or web address] du PCP - General Internal Medicine 11/17/23 12/28/23 Pcp, Unknown PCP - General 02/28/24 03/04/24 Nicole Newell MD [address] [place] [address] PCP - General 03/05/24 05/17/24 Laura Mock MD, DMD [address] [address] [email or web address] du PCP - General Internal Medicine 05/18/24 Rina Swenson MD Psychiatry 07/09/17 Laura Mock MD, DMD [address] [address] [email or web address] du Partners Attributed Provider 09/01/21 07/03/23 Laura Mock MD, DMD 1 [facility] [address] [place] [address] [email or web address] du Insurance Assigned Provider 05/31/23 03/01/24 Jakob Bob MD [address] [place] [address] [email or web address] Cardiology 08/22/23 Jose Cruz MD [address] [place] [address] Cardiology 08/22/23 Laura Mock MD, DMD [address] [address] [email or web address] du Partners Attributed Provider 09/01/21 07/03/23 [place] [facility] [phone]. Consulting Provider 08/22/23 [facility] Connect 12/24/23 03/11/24 Cyril Morales [address] [place] [address] Nurse Practitioner 02/27/24 documented as of this encounter Additional Source Comments The information contained in this document represents components of the legal health record. It is not the complete legal health record.[facility]
--- OUTSIDE RECORDS SUMMARY | 2024-10-28 15:20 | XMS_ITS | Encounter Summary ---
Author Organization [facility] Address [facility] [employer] [address] [address] Phone Care Team Providers Care Shipping Lead Person Name Role Phone Rina Swenson MD Unavailable [phone] Laura Mock MD, DMD Primary Car e Provider Laura Mock MD, DMD Unavailable Laura Mock MD, DMD Unavailable Jakob Bob MD Unavailable [phone] Jose Cruz MD Unavailable [phone] Laura Mock MD, DMD Unavailable Pcp, Unknown [...] st Contact Info) Description 05/24/2024 Procedure Pass [facility] Radiology 75 [place] [address] 11/24/2024 1:15 PM EDT Appointment [facility] Radiology 75 [place] [address] Jim Zacarias MD [address] [address] [email or web address] 11/24/2024 2:15 PM EDT Office Visit [facility] Thoracic Surgery [address] [address] Jim Zacarias MD [address] [address] [email or web address] 01/31/2025 1:00 PM EST Office Visit [facility] Cardiovascular Medicine 32 [facility], 5th Floor, [address] [place] [address] Karena Betancur MD [address] [address] [email or web address] Scheduled Procedures Name Priority [...] documented as of this encounter Care Teams Shipping Lead Person Relationship Specialty Start Date End Date Laura Mock MD, DMD [address] [address] [email or web address] PCP - General Internal Medicine 06/04/21 11/11/23 Pcp, Unknown PCP - General 11/12/23 11/16/23 Laura Mock MD, DMD [address] [address] [email or web address] du PCP - General Internal Medicine 11/17/23 12/28/23 Pcp, Unknown PCP - General 02/28/24 03/04/24 Nicole Newell MD [address] [place] [address] PCP - General 03/05/24 05/17/24 Laura Mock MD, DMD [address] [address] [email or web address] du PCP - General Internal Medicine 05/18/24 Rina Swensno MD Psychiatry 07/09/17 Laura Mock MD, DMD [address] [address] [email or web address] du Partners Attributed Provider 09/01/21 07/03/23 Laura Mock MD, DMD 1 [facility] [address] [place] [address] [email or web address] du Insurance Assigned Provider 05/31/23 03/01/24 Jakob Bob MD [address] [place] [address] [email or web address] Cardiology 08/22/23 Jose Cruz MD [address] [place] [address], [facility] [address] [place] [address] [email or web address] Cardiology 08/22/23 Laura Mock MD, DMD [address] [address] [email or web address] du Partners Attributed Provider 09/01/21 07/03/23 [place] [facility] [phone]. Consulting Provider 08/22/23 [facility] Connect 12/24/23 03/11/24 Cyril Morales [facility] [place] [address] Nurse Practitioner 02/27/24 documented as of this encounter Additional Source Comments The information contained in this document represents components of the legal health record. It is not the complete legal health record.[facility]
--- OUTSIDE RECORDS SUMMARY | 2024-10-28 15:21 | XMS_ITS | Encounter Summary ---
Author Organization [facility] Address [address] [place] [address] Phone Care Team Providers Care Gastroenterology Nurse Name Role Phone Artie Meehan MD Unavailable Rina Swenson MD Unavailable [phone] Laura Mock MD, DMD Primary Car e [...] Info) Description 09/17/2021 Procedure Pass [facility] [place] [place] [address] Social History Tobacco Use Types Packs/Day Years [...] st Contact Info) Description 05/24/2024 Procedure Pass [facility] Radiology [address] [place] [address] 11/24/2024 1:15 PM EDT Appointment [facility] [address] [place] [address] Jim Zacarias MD [address] [address] [email or web address] 11/24/2024 2:15 PM EDT Office [facility] Thoracic Surgery 15 [facility] 204 [place] [address] Jim Zacarias MD [address] [address] [email or web address] 01/31/2025 1:00 PM EST Office Visit [facility] Cardiovascular Medicine 32 [facility], 5th Floor, [address] [place] [address] Karena Betancur MD 55 [facility] 5B [place] [address] [email or web address] Scheduled Procedures Name Priority [...] documented as of this encounter Care Teams Gastroenterology Nurse Relationship Specialty Start Date End Date Laura Mock MD, DMD 1 [facility] 225 [place] [address] [email or web address] du PCP - General Internal Medicine 06/04/21 11/11/23 Pcp, Unknown PCP - General 11/12/23 11/16/23 Laura Mock MD, DMD [address] [address] [email or web address] du PCP - General Internal Medicine 11/17/23 12/28/23 Pcp, Unknown PCP - General 02/28/24 03/04/24 [place] [address] [address] PCP - General 03/05/24 05/17/24 Laura Mock MD, DMD 1 [facility] 225 [place] [address] [email or web address] du PCP - General Internal Medicine 05/18/24 Artie Meehan MD [address] [place] [address] Dr [place]ior [facility] [place] [address] Internal Medicine 10/26/17 04/23/22 Rina Swenson MD [address] [place] [address] [place] [address] Psychiatry 07/09/17 Laura Mock MD, DMD 1 [facility] [address] [place] [address] [email or web address] du Partners Attributed Provider 09/01/21 07/03/23 Laura Mock MD, DMD [address] [address] [email or web address] du Insurance Assigned Provider 05/31/23 03/01/24 Jakob Bob MD [address] [place] [address] [email or web address] Cardiology 08/22/23 Jose Cruz MD [address] [place] [address] [email or web address] Cardiology 08/22/23 Laura Mock MD, DMD [address] [address] [email or web address] Partners Attributed Provider 09/01/21 07/03/23 [facility] [phone]. Consulting Provider 08/22/23 [facility] Connect 12/24/23 03/11/24 Cyril Morales [address] [place] [phone] Nurse Practitioner 02/27/24 documented as of this encounter Additional Source Comments The information contained in this document represents components of the legal health record. It is not the complete legal health record.[facility]
--- OUTSIDE RECORDS SUMMARY | 2024-10-28 15:21 | XMS_ITS | Encounter Summary ---
Author Organization [facility] Address [address] [facility] [address] [place] [address] Phone Care Team Providers Care Patient Care Manager Name Role Phone Rina Swenson MD Unavailable [phone] Laura Mock MD, DMD Primary Car e [...] st Contact Info) Description 10/09/2022 Procedure Pass [facility] CT Imaging, [place] [address] [place] [address] Social History Tobacco Use Types Packs/Day Years [...] Description 05/24/2024 Procedure Pass [facility] Radiology [address] [place] [address] 11/24/2024 1:15 PM EDT Appointment [facility]iology [address] [place] [address] Jim Zacarias MD [address] [address] [email or web address] 11/24/2024 2:15 PM EDT Office Visit [facility] Thoracic Surgery 15 [facility] 204 [place] [address] Jim Zacarias MD [address] [address] [email or web address] 01/31/2025 1:00 PM EST Office Visit [facility] Cardiovascular Medicine 32 [facility], 5th Floor, [address] [place] [address] Karena Betancur MD 55 [facility] 5B [place] [address] [email or web address] Scheduled Procedures Name Priority Associated Diagnoses [...] documented as of this encounter Care Teams Patient Care Manager Relationship Specialty Start Date End Date Laura Mock MD, DMD [address] [address] [email or web address] PCP - General Internal Medicine 06/04/21 11/11/23 Pcp, Unknown PCP - General 11/12/23 11/16/23 Laura Mock MD, DMD [address] [address] [email or web address] PCP - General Internal Medicine 11/17/23 12/28/23 Pcp, Unknown PCP - General 02/28/24 03/04/24 [place] [address] [address] PCP - General 03/05/24 05/17/24 Laura Mock MD, DMD [address] [address] [email or web address] PCP - General Internal Medicine 05/18/24 Rina Swenson MD Psychiatry 07/09/17 Laura Mock MD, DMD [address] [address] [email or web address] Attributed Provider 09/01/21 07/03/23 Laura Mock MD, DMD [address] [address] [email or web address] Insurance Assigned Provider 05/31/23 03/01/24 Jakob Bob MD [address] [place] [address] [email or web address] Cardiology 08/22/23 Jose Cruz MD [address] [place] [address] [email or web address] Cardiology 08/22/23 Laura Mock MD, DMD [address] [address] [email or web address] Partners Attributed Provider 09/01/21 07/03/23 [facility] [phone]. Consulting Provider 08/22/23 [facility] Connect 12/24/23 03/11/24 Cyril Morales [address] [place] [phone] Nurse Practitioner 02/27/24 documented as of this encounter Additional Source Comments The information contained in this document represents components of the legal health record. It is not the complete legal health record.[facility]
--- OUTSIDE RECORDS SUMMARY | 2024-10-28 15:21 | XMS_ITS | Encounter Summary ---
Author Organization [facility] Address [facility] [employer] [address] [address] Phone Care Team Providers Care Cook 3 Pastry Name Role Phone Rina Swenson MD Unavailable Laura Mock MD, DMD Primary Car e Provider Laura Mock MD, DMD Unavailable Laura Mock MD, DMD Unavailable Jakob Bob MD Unavailable Jose Cruz MD Unavailable [phone] Laura Mock MD, DMD Unavailable Pcp, Unknown [...] st Contact Info) Description 05/24/2024 Procedure Pass [facility] Radiology 75 [place] [address] 11/24/2024 1:15 PM EDT Appointment [facility] Radiology 75 [place] [address] Jim Zacarias MD [address] [address] [email or web address] 11/24/2024 2:15 PM EDT Office Visit [facility] Thoracic Surgery 15 [facility] 204 [place] [address] Jim Zacarias MD [address] [address] [email or web address] 01/31/2025 1:00 PM EST Office Visit [facility] Cardiovascular Medicine 32 [facility], 5th Floor, [address] [place] [address] Karena Betancur MD 55 [facility] 5B [place] [address] [email or web address] Scheduled Procedures Name Priority Associated Diagnoses [...] documented as of this encounter Care Teams Cook 3 Pastry Relationship Specialty Start Date End Date Laura Mock MD, DMD [address] [address] [email or web address] PCP - General Internal Medicine 06/04/21 11/11/23 Pcp, Unknown PCP - General 11/12/23 11/16/23 Laura Mock MD, DMD [address] [address] [email or web address] PCP - General Internal Medicine 11/17/23 12/28/23 Pcp, Unknown PCP - General 02/28/24 03/04/24 Nicole Newell MD [address] [place] [address] PCP - General 03/05/24 05/17/24 Laura Mock MD, DMD [address] [address] [email or web address] PCP - General Internal Medicine 05/18/24 Rina Swenson MD Psychiatry 07/09/17 Laura Mock MD, DMD [address] [address] [email or web address] Partners Attributed Provider 09/01/21 07/03/23 Laura Mock MD, DMD [address] [address] [email or web address] Insurance Assigned Provider 05/31/23 03/01/24 Jakob Bob MD [address] [place] [address] [email or web address] Cardiology 08/22/23 Jose Cruz MD [address] [place] [address], [address] [address] [email or web address] Cardiology 08/22/23 Laura Mock MD, DMD [address] [address] [email or web address] Partners Attributed Provider 09/01/21 07/03/23 [facility] [phone]. Consulting Provider 08/22/23 [facility] Connect 12/24/23 03/11/24 Cyril Morales [address] [place] [address] Nurse Practitioner 02/27/24 documented as of this encounter Additional Source Comments The information contained in this document represents components of the legal health record. It is not the complete legal health record.[facility]
--- OUTSIDE RECORDS SUMMARY | 2024-10-28 15:21 | XMS_ITS | Encounter Summary ---
Author Organization [facility] Address [facility] [employer] [facility] [address] [place] [address] Phone Care Team Providers Care Harvest Worker Field Crop Name Role Phone Rina Swenson MD Unavailable [...] st Contact Info) Description 05/27/2023 Procedure Pass [facility] Endoscopy Department [address] [place] [address] Social History Tobacco Use Types Packs/Day [...] Contact Info) Description 05/24/2024 Procedure Pass [facility] Radiology [address] [place] [address] 11/24/2024 1:15 PM EDT Appointment [facility] Radiology [address] [place] [address] Jim Zacarias MD [address] [address] [email or web address] 11/24/2024 2:15 PM EDT Office Visit [facility] Thoracic Surgery 15 [facility] 204 [place] [address] Jim Zacarias MD [address] [address] [email or web address] 01/31/2025 1:00 PM EST Office Visit [facility] Cardiovascular Medicine 32 [facility], 5th Floor, [address] [place] [address] Karena Betancur MD [address] [address] [email or web address] Scheduled Procedures Name Priority Associated [...] documented as of this encounter Care Teams Harvest Worker Field Crop Relationship Specialty Start Date End Date Laura Mock MD, DMD [address] [address] [email or web address] PCP - General Internal Medicine 06/04/21 11/11/23 Pcp, Unknown PCP - General 11/12/23 11/16/23 Laura Mock MD, DMD [address] [address] [email or web address] PCP - General Internal Medicine 11/17/23 12/28/23 Pcp, Unknown PCP - General 02/28/24 03/04/24 [place] [address] [address] PCP - General 03/05/24 05/17/24 Laura Mock MD, DMD [address] [address] [email or web address] PCP - General Internal Medicine 05/18/24 Rina Swenson MD Psychiatry 07/09/17 Laura Mock MD, DMD [address] [address] [email or web address] Attributed Provider 09/01/21 07/03/23 Laura Mock MD, DMD [address] [address] [email or web address] Insurance Assigned Provider 05/31/23 03/01/24 Jakob Bob MD [address] [place] [address] [email or web address] Cardiology 08/22/23 Jose Cruz MD [address] [place] [address] [email or web address] Cardiology 08/22/23 Laura Mock MD, DMD [address] [address] [email or web address] Attributed Provider 09/01/21 07/03/23 [facility] [phone]. Consulting Provider 08/22/23 [facility] Connect 12/24/23 03/11/24 Cyril Morales [address] [place] [phone] Nurse Practitioner 02/27/24 documented as of this encounter Additional Source Comments The information contained in this document represents components of the legal health record. It is not the complete legal health record.[facility]
--- OUTSIDE RECORDS SUMMARY | 2024-10-28 15:21 | XMS_ITS | Encounter Summary ---
Author Organization [facility] Address [address] [employer] [facility] [address] [place] [address] Phone Care Team Providers Care Program Associate Name Role Phone Artie Meehan MD Primary [...] Description 11/29/2017 Transcribe Orders [facility] 30 [place] [address] Artie Meehan MD [address] [place] [address] [place] [address] Hypertension, essential (Primary Dx) Social History Tobacco [...] 05/24/2024 Procedure Pass [facility] Radiology [address] [place] [address] 11/24/2024 1:15 PM EDT Appointment [facility] Radiology [address] [place] [address] Jim Zacarias MD [address] [address] [email or web address] 11/24/2024 2:15 PM EDT Office Visit [facility] Thoracic Surgery 15 [facility] 204 [place] [address] Jim Zacarias MD [address] [address] [email or web address] 01/31/2025 1:00 PM EST Office Visit [facility] Cardiovascular Medicine 32 [facility], 5th Floor, [address] [place] [address] Karena Betancur MD [address] [address] [email or web address] Scheduled Procedures Name Priority Associated Diagnoses Date/Ti me COLONOSCOPY Abnormal colonoscopy documented as of this encounter Results * (ABNORMAL) Urinalysis (11/29/2017 10:52 AM EDT) COLOR Yellow Yellow [facility] CLARITY Clear [facility] GLUCOSE Negative Negative [facility] BILI Negative Negative [facility] KETONES Negative Negative [facility] SPECIFIC GRAVITY 1.015 1.005 - 1.030 [facility] BLOOD Trace(A) Negative [facility] PH 6.0 5.0 - 8.0 [facility] Protein-UA Negative Negative [facility] NITRITE Negative Negative [facility] Leukocyte esterase, ur Negative Negative [facility] Urine (Urine) 11/29/2017 10: 52 AM EDT 11/29/2017 10:57 AM EDT us Artie Meehan MD URINE ORDERABLES Final Re sult Performing Organization Address City/State/[facility] Co de Phone Number [address] [address] * (ABNORMAL) CBC and differential (11/29/2017 10:52 AM EDT) WBC 3.98 3.40 - 11.20 K/uL [facility] RBC 5.32(H) 3.80 - 4.80 M/uL [facility] HGB 15.7(H) 12.0 - 15.0 g/dL [facility] HCT 48.4(H) 36.0 - 46.0 % [facility] PLT 223 130 - 400 K/uL [facility] MCV 91.0 79.0 - 98.0 fL [facility] MCH 29.5 27.0 - 34.8 pg [facility] MCHC 32.4 31.5 - 36.0 g/dL [facility] RDW 13.4 10.8 - 14.6 % [facility] MPV 9.1(L) 9.4 - 12.4 fl [facility] NRBC 0.00 /100 WBCs [facility] ABSOLUTE NRBC 0.00 K/uL [facility] DIFF METHOD Auto [facility] NEUTS 58.8 45.30 - 77.70 % [facility] LYMPHS 26.6 12.30 - 39.70 % [facility] MONOS 10.8 4.10 - 12.80 % [facility] EOS 2.5 0 - 7.2 % [facility] BASOS 1.0 0 - 2.80 % [facility] Granulocytes, immature (%) 0.3 0.0 - 0.9 % [facility] ABSOLUTE NEUTS 2.34 1.40 - 7.70 K/uL [facility] ABSOLUTE LYMPHS 1.06 0.60 - 3.20 K/uL [facility] ABSOLUTE MONOS 0.43 0.11 - 0.59 K/uL [facility] ABSOLUTE EOS 0.10 0.01 - 0.50 K/uL [facility] ABSOLUTE BASOS 0.04 0.00 - 0.08 K/uL [facility] Granulocytes, immature 0.01 0.00 - 0.05 K/uL [facility] Blood 11/29/2017 10:5 2 AM EDT 11/29/2017 10:57 AM EDT us Artie Meehan MD LAB BLOOD ORDERABLES Neela milian Result [facility] [address] [place] [address] * (ABNORMAL) Lipid panel (11/29/2017 10:52 AM EDT) HDL 82 mg/dL [facility] Comment: Interpretation: Risk Level Females Decreased >55mg/dL Average 50-55 mg/dL Increased <50 mg/dL CHOLESTEROL 253(H) 0 - 240 mg/dL [facility] TRIGLYCERIDES 83 30 - 160 mg/dL [facility] LDL 154(H) 50 - 129 mg/dL [facility] Comment: LDL levels in terms of risk for coronary heart disease: <100 mg/dL: Optimal 100-129 mg/dL: Near or above optimal 130-159 mg/dL: Borderline high 160-189 mg/dL: High >190 mg/dL: Very High CARDIAC RISK RATIO 3.1(L) 3.3 - 4.4 [facility] Blood 11/29/2017 10:5 2 AM EDT 11/29/2017 10:57 AM EDT Artie Meehan MD LAB BLOOD ORDERABLES Neela l Result Performing Organization Address City/[facility]/ZIP Co de Phone Number [address] [address] * Comprehensive metabolic panel (11/29/2017 10:52 AM EDT) SODIUM 145 133 - 146 mmol/L [facility] POTASSIUM 4.7 3.3 - 5.1 mmol/L [facility] CHLORIDE 104 96 - 108 mmol/L [facility] CO2 27 21 - 35 mmol/L [facility] BUN 17 6 - 19 mg/dL [facility] CREATININE 0.80 0.5 - 1.5 mg/dL [facility] GLUCOSE 86 70 - 99 mg/dL [facility] ALBUMIN 4.1 3.9 - 4.8 g/dL [facility] TOTAL PROTEIN 6.9 6.5 - 8.0 g/dL [facility] CALCIUM 9.2 8.4 - 10.3 mg/dL [facility] ALKALINE PHOSPHATASE 73 39 - 117 U/L [facility] TOTAL BILIRUBIN 0.5 0.0 - 1.2 mg/dL [facility] AST 19 0 - 37 U/L [facility] ALT 12 0 - 40 U/L [facility] GLOBULIN 2.8 1 - 4.8 g/dL [facility] EGFR 70 >59 mL/min/1.7 3m2 [facility] Comment:If patient is black, multiply result by 1.159. Estimated glomerular filtration rate calculated using the CKD-EPI equation. ANION GAP 19 10 - 20 mmol/L [facility] Blood 11/29/2017 10:5 2 AM EDT 11/29/2017 10:57 AM EDT Artie Meehan MD LAB BLOOD ORDERABLES Neela l Result [address] [address] documented in this encounter Visit Diagnoses Diagnosis Hypertension, essential- Primary Unspecified essential hypertension documented in this encounter Additional Health Concerns Infection Onset Date Last Indicated Resolved Time CoV-Presumed 03/23/2022 03/23/2022 04/13/2022 1:23 AM EST CoV-Risk 11/12/2023 11/12/2023 11/12/2023 5:12 PM EDT COVID-19 11/12/2023 11/12/2023 12/03/2023 1:21 AM EDT documented as of this encounter Care Teams Program Associate Relationship Specialty Start Date End Date Artie Meehan MD [address] [place] [address] Dr D[address] [place] [address] PCP - General Internal Medicine 10/26/17 06/03/21 Laura Mock MD, DMD [address] [address] [email or web address] PCP - General Internal Medicine 06/04/21 11/11/23 Pcp, Unknown PCP - General 11/12/23 11/16/23 Laura Mock MD, DMD [address] [address] [email or web address] PCP - General Internal Medicine 11/17/23 12/28/23 Pcp, Unknown PCP - General 02/28/24 03/04/24 Nicole Newell MD [address] [place] [address] PCP - General 03/05/24 05/17/24 Laura Mock MD, DMD [address] [address] [email or web address] PCP - General Internal Medicine 05/18/24 Artie Meehan MD [address] [place] [address] [place] [address] Internal Medicine 10/26/17 04/23/22 Rina Swenson MD [address] [place] [address] [place] [address] Psychiatry 07/09/17 Laura Mokc MD, DMD [address] [address] [email or web address] [employer] Attributed Provider 09/01/21 07/03/23 Laura Mock MD, DMD [address] [address] [email or web address] Insurance Assigned Provider 05/31/23 03/01/24 Jakob Bob MD [address] [place] [address] [email or web address] Cardiology 08/22/23 Jose Cruz MD [address] [place] [address], [address] [place] [address] [email or web address] Cardiology 08/22/23 Laura Mock MD, DMD [address] [address] [email or web address] Attributed Provider 09/01/21 07/03/23 [facility] [phone]. Consulting Provider 08/22/23 CAROLANN GREAWL Connect 12/24/23 03/11/24 Cyril Morales [address] [place] [address] Nurse Practitioner 02/27/24 documented as of this encounter Additional Source Comments The information contained in this document represents components of the legal health record. It is not the complete legal health record.[facility]
--- OUTSIDE RECORDS SUMMARY | 2024-10-28 15:21 | XMS_ITS | Encounter Summary ---
Author Organization [facility] Address [address] [place] [address] Phone Care Team Providers Care Insurance Follow Up Specialist Name Role Phone Rina Swenson MD [...] st Contact Info) Description 03/23/2023 Anti-coag visit [facility] Anticoagulation Clinic [address] [place] [address] Purvi Lawler, PharmD [address] [place] [address] [email or web address] Social History Tobacco Use Types [...] st Contact Info) Description 05/24/2024 Procedure Pass [facility] Radiology [address] [place] [address] 11/24/2024 1:15 PM EDT Appointment [facility] Radiology [address] [place] [address] Jim Zacarias MD [address] [place] [address] [email or web address] 11/24/2024 2:15 PM EDT Office Visit [facility] Thoracic Surgery 15 [facility] 204 [place] [address] Jim Zacarias MD [address] [place] [address] [email or web address] 01/31/2025 1:00 PM EST Office Visit [facility] Cardiovascular Medicine [address] [place] [address], 5th Floor, [address] [place] [address] Karena Betancur MD [address] [facility] [address] [place] [address] [email or web address] Scheduled Procedures Name Priority Associated [...] documented as of this encounter Care Teams Insurance Follow Up Specialist Relationship Specialty Start Date End Date Laura Mock MD, DMD [address] [address] [email or web address] PCP - General Internal Medicine 06/04/21 11/11/23 Pcp, Unknown PCP - General 11/12/23 11/16/23 Laura Mock MD, DMD [address] [address] [email or web address] PCP - General Internal Medicine 11/17/23 12/28/23 Pcp, Unknown PCP - General 02/28/24 03/04/24 [place] [address] [address] PCP - General 03/05/24 05/17/24 Laura Mock MD, DMD [address] [address] [email or web address] PCP - General Internal Medicine 05/18/24 Rina Swenson MD Psychiatry 07/09/17 Laura Mock MD, DMD [address] [address] [email or web address] Partners Attributed Provider 09/01/21 07/03/23 Laura Mock MD, DMD [address] [address] [email or web address] Insurance Assigned Provider 05/31/23 03/01/24 Jakob Bob MD [address] [place] [address] [email or web address] Cardiology 08/22/23 Jose Cruz MD [address] [place] [address], [address] [place] [address] Cardiology 08/22/23 Laura Mock MD, DMD [address] [address] [email or web address] Attributed Provider 09/01/21 07/03/23 [facility] [phone]. Consulting Provider 08/22/23 [facility] Connect 12/24/23 03/11/24 Cyril Morales [address] [place] [address] Nurse Practitioner 02/27/24 documented as of this encounter Additional Source Comments The information contained in this document represents components of the legal health record. It is not the complete legal health record.[facility]
--- OUTSIDE RECORDS SUMMARY | 2024-10-28 15:21 | XMS_ITS | Clinical Summary ---
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[facility]; has chronic changes on CT No [...] given a the option to go to [facility] Coumadin clinic or to go back to [facility] where she has been a patient [...] Type Department Care Team Description 10/13/2024 Telephone [facility] [address] 2nd [place] [address] Laura Mock MD, DMD Colonoscopy 10/07/2024 [facility] [address] 3rd Floor, [address] [place] [address] Jose Cruz MD Medication Refill 09/17/2024 Telephone [facility] [place] [facility] 2nd [place] [address] Laura Mock MD, DMD Colonoscopy 08/18/2024 Hospital Encounter [facility] Endoscopy Department [address] [place] [address] Irineo Ruff MD from Last 3 Months Immunizations Immunization Administration [...] 05/24/2024 Procedure Pass [facility] [address] [place] [address] 11/24/2024 1:15 PM EDT Appointment [facility] [address] [place] [address] Jim Zacarias MD [address] [place] [address] [email or web address] 11/24/2024 2:15 PM EDT Office Visit [facility] Thoracic Surgery [address] [place] [address] Jim Zacarias MD [address] [place] [address] [email or web address] 01/31/2025 1:00 PM EST Office Visit [facility] Cardiovascular Medicine 32 [facility], 5th Floor, [address] [place] [address] Karena Betancur MD 55 [facility] [address] [place] [address] [email or web address] Scheduled Procedures Name Priority [...] this topic Medical Devices Implanted Type Area General Engineering Teacher Device Identifier Shelf Expiration Date Model / Serial / Lot St Drew Aortic Valve 23mm-04/19/2002 Implanted:04/19/19 03 (Quantity not on file) Description:Per OP report fr om 04/19/02: Pt has a 23mm [employer] Drew Aortic Valve replacement Per cat operator: cond to 1.5T and 3T (see scanned [...] EDT) SODIUM 139 136 - 145 mmol/L [facility] POTASSIUM 4.8 3.4 - 5.1 mmol/L [facility] CHLORIDE 100 98 - 107 mmol/L [facility] CO2 28 22 - 31 mmol/L [facility] BUN 18 6 - 23 mg/dL [facility] CREATININE 0.71 0.50 - 1.20 mg/dL [facility] GLUCOSE 94 70 - 100 mg/dL [facility] CALCIUM 9.6 8.8 - 10.7 mg/dL [facility] EGFR 83 >59 mL/min/1.7 3m2 [facility] Comment:Estimated glomerular filtration rate calculated using the CKD-EPI refit equation. ANION GAP 11 7 - 17 mmol/L [facility] Blood 12/04/2023 1:58 PM EDT 12/04/2023 2:02 PM EDT us Jim Zacarias MD LAB BLOOD ORDERABLES Final Result Performing Organization Address City/State/RUST Co de Phone Number [facility] [address] [place] [phone] * BD DXA AXIAL (SPINE) WITH HIP [...] bone mineral density was calculated at 0.409 gm/sl7lxrz a T- score of -4 falling within [...] and bilateral hip osteoporosis. Artie Meehan MD IMB[facility] BD BONE DENSITY DEXA Final Result * COLONOSCOPY FOR RESULT ENTRY ONLY (06/24/2014) Colonoscopy Normal Comment:Done by Dr. Hernandez Historical Provider HEALTH MAINTENANCE Edited Result - Final from Last 3 Months or Most Recently Relevant to Health Maintenance Insurance MEDICARE PART A & B [employer] MEDEX SUPPLEMENT MEDICARE PART A & B [employer] MEDEX SUPPLEMENT MEDICARE PART A & B [employer] MEDEX SUPPLEMENT MEDICARE PART A & B [employer]UE [employer] MEDEX SUPPLEMENT MEDICARE PART A & B [employer] MEDEX SUPPLEMENT MEDICARE PART A & B [employer] MEDEX SUPPLEMENT MEDICARE PART A & B [facility] MEDEX SUPPLEMENT MEDICARE PART A & B [employer] MEDEX SUPPLEMENT MEDICARE PART A & B Member Subscriber Plan / Payer ( fective 2003-Present) Name:Anna Castillo Member ID:[id number] Relation to Subscriber:Self Name:Anna Castillo Subscriber ID:[id number] Payer ID:[id number] Group ID:Not on file Type:Medicare Address: [facility] [email or web address] [facility] [address] [place] [address] [employer] MEDEX SUPPLEMENT Advance Directives For more information, please contact: [phone] (9AM - 5PM Nataliya/[facility], Friday-Friday) Documents on File Type Date Recorded Patient Ship Ceiler Expl anation Healthcare Proxy 11/18/2023 2:08 PM Healthcare Proxy 11/14/2023 7:46 AM Health care Proxy * Full Code (Latest Code Status on File) Date Activated Date Inactivated Comments 11/12/2023 10:33 PM Question Answer Comments Code Status Confirmed With: Other (specify below ) Code Discussion Comments: Presumed Care Teams Jewel Flat Surfacer Relationship Specialty Start Date End Date Laura Mock MD, DMD 1 [facility] [address] [place] [address] [email or web address] PCP - General Internal Medicine 05/18/24 Rina Swenson MD Psychiatry 07/09/17 Jakob Bob MD [address] [place] [address] [email or web address] Cardiology 08/22/23 Jose Cruz MD [address] [facility], [address] [place] [address] Cardiology 08/22/23 [facility] [phone]. Consulting Provider 08/22/23 Cyril Morales [facility]5 [place] [address] Nurse Practitioner 02/27/24 Additional Source Comments The information contained in this document represents components of the legal health record. It is not the complete legal health record.[facility]
--- OUTSIDE RECORDS SUMMARY | 2024-10-28 15:21 | XMS_ITS | Encounter Summary ---
Author Organization [facility] Address [address] [address] Phone Care Team Providers Care Lens Grinder Name Role Phone Rina Swenson MD Unavailable [phone] Laura Mock MD, DMD Primary Car e Provider Laura Mock MD, DMD Unavailable Laura Mock MD, DMD Unavailable Jakob Bob MD Unavailable [phone] Jose Cruz MD Unavailable Laura Mock MD, DMD Unavailable Pcp, Unknown Primary Care Provider UnavailLaura Ascencio MD, DMD Primary Car e Provider Pcp, Unknown Primary Care Provider UnavailNicole Arguello MD Primary Care Provide r Laura Mock MD, DMD Primary Car e Provider Encounter Details Date Type Department Care Team (Late st Contact Info) Description 10/06/2022 Anti-coag visit [facility] Anticoagulation Clinic [address] [place] [address] Abbie Prieto, PharmD [address] [address] [email or web address] Social History Tobacco Use Types Packs/Day Years [...] 05/24/2024 Procedure Pass [facility] Radiology [address] [place] [address] 11/24/2024 1:15 PM EDT Appointment [facility] Radiology [address] [place] [address] Jim Zacarias MD [address] [place] [address] [email or web address] 11/24/2024 2:15 PM EDT Office Visit [facility] Thoracic Surgery 15 [facility] 204 [place] [address] Jim Zacarias MD [address] [address] [email or web address] 01/31/2025 1:00 PM EST Office Visit [facility] Cardiovascular Medicine [address] [place] [address], 5th Floor, [address] [place] [address] Karena Betancur MD [address] [place] [address] [email or web address] Scheduled Procedures Name Priority Associated [...] documented as of this encounter Care Teams Lens Grinder Relationship Specialty Start Date End Date Laura Mock MD, DMD [address] [address] [email or web address] PCP - General Internal Medicine 06/04/21 11/11/23 Pcp, Unknown PCP - General 11/12/23 11/16/23 Laura Mock MD, DMD [address] [address] [email or web address] PCP - General Internal Medicine 11/17/23 12/28/23 Pcp, Unknown PCP - General 02/28/24 03/04/24 [place] [address] [address] PCP - General 03/05/24 05/17/24 Laura Mock MD, DMD [address] [address] [email or web address] PCP - General Internal Medicine 05/18/24 Rina Swenson MD Psychiatry 07/09/17 Laura Mock MD, DMD [address] [address] [email or web address] Attributed Provider 09/01/21 07/03/23 Laura Mock MD, DMD [address] [address] [email or web address] Insurance Assigned Provider 05/31/23 03/01/24 Jakob Bob MD [address] [place] [address] [email or web address] Cardiology 08/22/23 Jose Cruz MD [address] [place] [address] Cardiology 08/22/23 Laura Mock MD, DMD [address] [address] [email or web address] Attributed Provider 09/01/21 07/03/23 [facility] [phone]. Consulting Provider 08/22/23 [facility] Connect 12/24/23 03/11/24 Cyril Morales [address] [place] [address] Nurse Practitioner 02/27/24 documented as of this encounter Additional Source Comments The information contained in this document represents components of the legal health record. It is not the complete legal health record.[facility]
--- OUTSIDE RECORDS SUMMARY | 2024-10-28 15:21 | XMS_ITS | Encounter Summary ---
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 Social History [...] st Contact Info) Description 05/24/2024 Procedure Pass [facility] Radiology 75 [place] [address] 11/24/2024 1:15 PM EDT Appointment [facility] Radiology [address] [place] [address] Jim Zacarias MD [address] [address] [email or web address] 11/24/2024 2:15 PM EDT Office Visit [facility] Thoracic Surgery 15 [facility] 204 [place] [address] Jim Zacarias MD [address] [address] [email or web address] 01/31/2025 1:00 PM EST Office Visit [facility] Cardiovascular Medicine [address] 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 documented in this encounter Results * (ABNORMAL) PT-INR (05/23/2018 11:36 AM EDT) PT 14.8(H) 10.2 - 12.9 sec [facility] INR 1.3(H) 0.9 - 1.1 [facility] Comment:Therapeutic range fo r oral Vitamin K antagonists: 2.0-3.5 Blood 05/23/2018 11:3 6 AM EDT 05/23/2018 11:39 AM EDT us Artie Meehan MD LAB BLOOD ORDERABLES Neela l Result Performing Organization Address City/State/[facility] Co de Phone Number [address] [address] documented in this encounter Visit Diagnoses Diagnosis 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 documented in this encounter Additional Health Concerns Infection Onset Date Last Indicated Resolved Time CoV-Presumed 03/23/2022 03/23/2022 04/13/2022 1:23 AM EST CoV-Risk 11/12/2023 11/12/2023 11/12/2023 5:12 PM EDT COVID-19 11/12/2023 11/12/2023 12/03/2023 1:21 AM EDT documented as of this encounter Care Teams J2Ee Consultant Relationship Specialty Start Date End Date Artie Meehan MD [address] [place] [address] [place] [address] PCP - General Internal Medicine 10/26/17 06/03/21 Laura Mock MD, DMD 1 [facility] [address] [place] [address] [email or web address] PCP - General Internal Medicine 06/04/21 11/11/23 Pcp, Unknown PCP - General 11/12/23 11/16/23 Laura Mock MD, DMD 1 [facility] [address] [place] [address] [place] [address] [email or web address] PCP - General Internal Medicine 11/17/23 12/28/23 Pcp, Unknown PCP - General 02/28/24 03/04/24 Nicole Newell MD [address] [place] [address] PCP - General 03/05/24 05/17/24 Laura Mock MD, DMD [address] [address] [email or web address] PCP - General Internal Medicine 05/18/24 Artie Meehan MD [address] [place] [address] Dr [address] [place] [address] Internal Medicine 10/26/17 04/23/22 Rina Swenson MD [address] [place] [address] [place] [address] Psychiatry 07/09/17 Laura Mock MD, DMD [address] [place] [address] [email or web address] Attributed Provider 09/01/21 07/03/23 Laura Mock MD, DMD [address] [place] [address] [email or web address] Insurance Assigned Provider 05/31/23 03/01/24 Jakob Bob MD [address] [place] [address] [email or web address] Cardiology 08/22/23 Jose Cruz MD [address] [place] [address] [address] [place] [address] [email or web address] Cardiology 08/22/23 Laura Mock MD, DMD [address] [place] [address] [address] [place] [address] [email or web address] Attributed Provider 09/01/21 07/03/23 [place] [facility] [phone]. Consulting Provider 08/22/23 [facility] Connect 12/24/23 03/11/24 Cyril Morales [address] [place] [address] Nurse Practitioner 02/27/24 documented as of this encounter Additional Source Comments The information contained in this document represents components of the legal health record. It is not the complete legal health record.[facility]
--- OUTSIDE RECORDS SUMMARY | 2024-10-28 15:21 | XMS_ITS | Encounter Summary ---
Author Organization [facility] Address [facility] [email or web address] [address] [address] Phone Care Team Providers Care Apprentice Cosmetologist Name Role Phone Tasha Greenwood MD Primary Care Provider Artie Meehan MD Primary Care Provider [phone] Artie Meehan MD Primary Care Provider [phone] Artie Meehan MD Unavailable Meera Campos Unavailable Amber Raygoza NP Unavailable [phone] Elvis Rendon MD Unavailable [phone] Modesta Rivera MD Unavailable [phone] Carlin Newman MD Unavailable [phone] Patti Bello MD Unavailable [phone] Lucila Melendez MD Unavailable [phone] Juan J Avitia DO Unavailable [phone] Tasha Greenwood MD Unavailable Mekhi Hernandez MD Unavailable Leora Fish-C Unavailable Angel Klein MD Unavailable [phone] Fredy Bruno MD Unavailable Sejal Dick MD Unavailable Cadence Rouse MD Unavailable [phone] Baljinder Hinson MD Unavailable [phone] Rina Swenson MD Unavailable [phone] Laura Mock MD, DMD Primary Car e [...] st Contact Info) Description 06/12/2017 Procedure Pass [facility] Radiology [address] [place] [address] Social History Tobacco Use Types Packs/Day Years [...] 05/24/2024 Procedure Pass [facility] [address] [place] [address] 11/24/2024 1:15 PM EDT Appointment [facility] [address] [place] [address] Jim Zacarias MD [address] [address] [email or web address] 11/24/2024 2:15 PM EDT Office Visit [facility] Thoracic Surgery 15 [facility] 204 [place] [address] Jim Zacarias MD [address] [address] [email or web address] 01/31/2025 1:00 PM EST Office Visit [facility] Cardiovascular Medicine 32 [facility], 5th Floor, [address] [place] [address] Karena Betancur MD [address] [address] [email or web address] Scheduled Procedures Name Priority Associated Diagnoses Date/Ti me COLONOSCOPY Abnormal colonoscopy documented as of this encounter Visit Diagnoses Not on filedocumented in this encounter Additional Health Concerns Infection Onset Date Last Indicated Resolved Time CoV-Presumed 03/23/2022 03/23/2022 04/13/2022 1:23 AM EST CoV-Risk 11/12/2023 11/12/2023 11/12/2023 5:12 PM EDT COVID-19 11/12/2023 11/12/2023 12/03/2023 1:21 AM EDT documented as of this encounter Care Teams Apprentice Cosmetologist Relationship Specialty Start Date End Date Tasha Greenwood MD [address] [place] [address], 2nd [place] [address] [email or web address] PCP - General 08/24/13 07/08/17 Artie Meehan MD [address] [place] [address] [place] [address] PCP - General Internal Medicine 07/09/17 10/25/17 Artie Meehan MD [address] [place] [address] [place] [address] PCP - General Internal Medicine 10/26/17 06/03/21 Laura Mock MD, DMD 1 [facility] [address] [place] [address] [email or web address] PCP - General Internal Medicine 06/04/21 11/11/23 Pcp, Unknown PCP - General 11/12/23 11/16/23 Laura Mock MD, DMD [address] [address] [email or web address] PCP - General Internal Medicine 11/17/23 12/28/23 Pcp, Unknown PCP - General 02/28/24 03/04/24 [place] [address] [address] PCP - General 03/05/24 05/17/24 Laura Mock MD, DMD 1 [facility] [address] [place] [address] [email or web address] PCP - General Internal Medicine 05/18/24 Artie Meehan MD [address] [place] [address] [place] [address] Internal Medicine 10/26/17 04/23/22 Meera Campos [place] [address] [address] Historical LMR Provider 12/14/16 Amber Raygoza NP [address] [place] [address] [address] [place] [address] Historical LMR Provider 12/14/16 Elvis Rendon MD [address] [place] [address], [address] [place] [address] Historical LMR Provider 12/14/16 8 Modesta Rivera MD [address] [place] [address], [address] [place] [address] Historical LMR Provider 12/14/16 Carlin Newman MD [address] [place] [address] 2nd [place] [address] Historical LMR Provider 12/14/16 Patti Bello MD [address] [place] [address], 2nd [place] [address] Historical LMR Provider 12/14/16 07/08/17 Lucila Melendez MD [address] [place] [address], [address] [place] [address] [email or web address] Historical LMR Provider 12/14/16 07/08/17 Juan J Avitia DO [address] [place] [address] Orthopedics & Sports [facility], [place] [address] [email or web address] Historical LMR Provider 12/14/16 07/08/17 Tasha Greenwood MD [address] [place] [address], 2nd [place] [address] [email or web address] Historical LMR Provider 12/14/16 07/08/17 Mekhi Hernandez MD [address] [place], [place] [address] [address] [email or web address] Historical LMR Provider 12/14/16 07/08/17 Leora Fish PA-C [address] [place] [address] [facility] [place] [address] [email or web address] Historical LMR Provider 12/14/16 Angel Bueno MD [address] [place] [address], [address] [place] [address] Historical LMR Provider 12/14/16 Fredy Bruno MD [address] [place] [address] Historical LMR Provider 12/14/16 Sejal Dick MD [address] [place] [address] Orthopedics & Sports [facility], [place] [address] Historical LMR Provider 12/14/1607/08 Cadence Rouse MD [address] [place] [address] Historical LMR Provider 12/14/16 Baljinder Hinson MD 61 [place] [address] Historical LMR Provider 12/14/16 Rina Swenson MD 61 [place] [address] Psychiatry 07/09/17 Laura Mock MD, DMD [address] [address] [email or web address] Partners Attributed Provider 09/01/21 07/03/23 Laura Mock MD, DMD [address] [address] [email or web address] du Insurance Assigned Provider 05/31/23 03/01/24 Jakob Bob MD [address] [place] [address] [email or web address] Cardiology 08/22/23 Jose Cruz MD [address] [place] [address] [email or web address] Cardiology 08/22/23 Laura Mock MD, DMD 1 [address] [place] [address] [email or web address] [employer] Attributed Provider 09/01/21 07/03/23 [facility] [phone]. Consulting Provider 08/22/23 [facility] Connect 12/24/23 03/11/24 Cyril Morales [address] [place] [address] Nurse Practitioner 02/27/24 documented as of this encounter Additional Source Comments The information contained in this document represents components of the legal health record. It is not the complete legal health record.[facility]
--- OUTSIDE RECORDS SUMMARY | 2024-10-28 15:21 | XMS_ITS | Encounter Summary ---
Author Organization [facility] Address [address] [facility] [address] [place] [address] Phone Care Team Providers Care Supervisor Pressing Department Name Role Phone Artie Meehan MD Primary Care Provider Artie Meehan MD Unavailable Rina Swenson MD Unavailable [phone] Laura Mock MD, DMD Primary Car e [...] Description 12/11/2018 Ancillary Orders Virtual Department 30 [place] [address] Artie Meehan MD [address] [place] [address] [place] [address] Breast screening Social History Tobacco Use Types [...] Upcoming Encounters Date Type Department Care Team ([facility] Contact Info) Description 05/24/2024 Procedure Pass [facility] Radiology [address] [place] [address] 11/24/2024 1:15 PM EDT Appointment [facility] Radiology [address] [place] [address] Jim Zacarias MD [address] [address] [email or web address] 11/24/2024 2:15 PM EDT Office Visit [facility] Thoracic Surgery 15 [facility] 204 [place] [address] Jim Zacarias MD [phone] [place] [address] [email or web address] 01/31/2025 1:00 PM EST Office Visit [facility] Cardiovascular Medicine 32 [facility], 5th Floor, [address] [place] [address] Karena Betancur MD 55 [facility] [address] [place] [address] [email or web address] Scheduled Procedures Name Priority Associated Diagnoses Date/Ti la COLONOSCOPY Abnormal colonoscopy documented as of this [...] lowers the sensitivity of mammography. POS - [id number] Narrative 01/05/2019 1:52 PM EST Full-field digital [...] whichlowers the sensitivity of mammography. POS - [id number] us Artie Meehan MD IMG MG EXAMS [...] as of this encounter Care Teams Supervisor Pressing Department Relationship Specialty Start Date End Date Artie Meehan MD [address] [place] [address] Dr Dior [facility] [address] PCP - General Internal Medicine 10/26/17 06/03/21 Laura Mock MD, DMD [address] [address] [email or web address] PCP - General Internal Medicine 06/04/21 11/11/23 Pcp, Unknown PCP - General 11/12/23 11/16/23 Laura Mock MD, DMD [address] [address] [email or web address] PCP - General Internal Medicine 11/17/23 12/28/23 Pcp, Unknown PCP - General 02/28/24 03/04/24 [place] [address] [address] PCP - General 03/05/24 05/17/24 Laura Mock MD, DMD 1 [facility] [address] [place] [address] [email or web address] PCP - General Internal Medicine 05/18/24 Artie Meehan MD [address] [place] [address] Dr [address] [place] [address] Internal Medicine 10/26/17 04/23/22 Rina Swenson MD [address] [place] [address] Dr [address] [place] [address] [place] [address] Psychiatry 07/09/17 Laura Mock MD, DMD [address] [address] [email or web address] du Partners Attributed Provider 09/01/21 07/03/23 Laura Mock MD, DMD [address] [address] [email or web address] du Insurance Assigned Provider 05/31/23 03/01/24 Jakob Bob MD [address] [place] [address] [email or web address] Cardiology 08/22/23 Jose Cruz MD [address] [place] [address], [facility] [address] [place] [address] [email or web address] Cardiology 08/22/23 Laura Mock MD, DMD [address] [address] [email or web address] Partners Attributed Provider 09/01/21 07/03/23 [facility] [phone]. Consulting Provider 08/22/23 [facility] Connect 12/24/23 03/11/24 Cyril Morales [facility]5 [place] [address] Nurse Practitioner 02/27/24 documented as of this encounter Additional Source Comments The information contained in this document represents components of the legal health record. It is not the complete legal health record.[facility]
--- OUTSIDE RECORDS SUMMARY | 2024-10-28 15:21 | XMS_ITS | Encounter Summary ---
Author Organization [facility] Address [facility] [address] [place] [address] Phone Care Team Providers Care Pot Tender Name Role Phone Artie Meehan MD Primary Care Provider Artie Meehan MD Unavailable Rina Swenson MD Unavailable Laura Mock MD, DMD Primary Car e Provider Laura Mock MD, DMD Unavailable Laura Mock MD, DMD Unavailable Jakob Bob MD Unavailable Jose Cruz MD Unavailable [phone] Laura Mock MD, DMD Unavailable Pcp, Unknown Primary Care Provider UnavailLaura Ascencio MD, DMD Primary Car e Provider Pcp, Unknown Primary Care Provider UnavailNicole Arguello MD Primary Care Provide r Laura Mock MD, DMD Primary Car e Provider Encounter Details Date Type Department Care Team (Late st Contact Info) Description 10/26/2017 Procedure Pass [facility], [facility] Scan - [facility] 30 [place] [address] Social History Tobacco Use Types Packs/Day Years [...] Upcoming Encounters Date Type Department Care Team ([facility] Contact Info) Description 05/24/2024 Procedure Pass [facility] Radiology 75 [place] [address] 11/24/2024 1:15 PM EDT Appointment [facility] Radiology [address] [place] [address] Jim Zacarias MD [phone] [place] [address] [email or web address] 11/24/2024 2:15 PM EDT Office Visit [facility] Thoracic Surgery 15 [facility] 204 [place] [address] Jim Zacarias MD [phone] [place] [address] [email or web address] 01/31/2025 1:00 PM EST Office Visit [facility] Cardiovascular Medicine 32 [facility], 5th Floor, [address] [place] [address] Karena Betancur MD 55 [facility] 5B [place] [address] [email or web address] Scheduled Procedures Name Priority [...] documented as of this encounter Care Teams Pot Tender Relationship Specialty Start Date End Date Artie Meehan MD [address] [place] [address] Dr [address] [place] [address] PCP - General Internal Medicine 10/26/17 06/03/21 Laura Mock MD, DMD [address] [address] [email or web address] PCP - General Internal Medicine 06/04/21 11/11/23 Pcp, Unknown PCP - General 11/12/23 11/16/23 Laura Mock MD, DMD [address] [address] [email or web address] PCP - General Internal Medicine 11/17/23 12/28/23 Pcp, Unknown PCP - General 02/28/24 03/04/24 [place] [address] [address] PCP - General 03/05/24 05/17/24 Laura Mock MD, DMD [address] [address] [email or web address] PCP - General Internal Medicine 05/18/24 Artie Meehan MD [address] [place] [address] Dr Dior Elisabeth [place] [address] Internal Medicine 10/26/17 04/23/22 Rina Swenson MD [address] [place] [address] [place] [address] Psychiatry 07/09/17 Laura Mock MD, DMD [address] [address] [email or web address] Attributed Provider 09/01/21 07/03/23 Laura Mock MD, DMD [address] [address] [email or web address] Insurance Assigned Provider 05/31/23 03/01/24 Jakob Bob MD [address] [place] [address] [email or web address] Cardiology 08/22/23 Jose Cruz MD [address] [place] [address], [address] [place] [address] [email or web address] Cardiology 08/22/23 Laura Mock MD, DMD [address] [address] [email or web address] Partners Attributed Provider 09/01/21 07/03/23 [place] [facility] [phone]. Consulting Provider 08/22/23 [facility] Connect 12/24/23 03/11/24 Cyril Morales [address] [place] [address] Nurse Practitioner 02/27/24 documented as of this encounter Additional Source Comments The information contained in this document represents components of the legal health record. It is not the complete legal health record.[facility]
--- OUTSIDE RECORDS SUMMARY | 2024-10-28 15:21 | XMS_ITS | Encounter Summary ---
Author Organization [facility] Address [facility] Thubrikar Aortic Valve [facility] [address] [place] [address] Phone Care Team Providers Care Weighter Name Role Phone Artie Meehan MD Primary [...] Expiration Date Visits Re quested Visits Authorized [id number] Closed 05/15/2018 05/15/2019 1 1 Encounter Details Date Type Department Care Team (Late Contact Info) Description 05/15/2018 Ancillary Orders For Login Purposes Only 15 [facility] Floor 2 [address] [place] [address] Artie Meehan MD [address] [place] [address] [place] [address] Pancreatic cyst Social History Tobacco Use Types [...] (Late Contact Info) Description 05/24/2024 Procedure Pass [facility] Rad[facility] [address] [place] [address] 11/24/2024 1:15 PM EDT Appointment [facility] [address] [place] [address] Jim Zacarias MD [address] [place] [address] [email or web address] 11/24/2024 2:15 PM EDT Office Visit [facility] Thoracic Surgery 15 [facility] [address] [place] [address] Jim Zacarias MD [address] [place] [address], [place] [address] [email or web address] 01/31/2025 1:00 PM EST Office Visit [facility] Cardiovascular Medicine 32 [facility], 5th Floor, [address] [place] [address] Karena Betancur MD 55 [facility] [address] [place] [address] [email or web address] Scheduled Procedures Name Priority Associated Diagnoses [...] renal cysts. Right hepatic lobe cyst. POS [id number] Edited by: Abbie Barnett on 05/22/2018 12:52 [...] renal cysts. Right hepatic lobe cyst. POS [id number] Edited by: Abbie Barnett on 05/22/2018 12:52 [...] documented as of this encounter Care Teams Weighter Relationship Specialty Start Date End Date Artie Meehan MD [address] [place] [address] [place] [address] PCP - General Internal Medicine 10/26/17 06/03/21 Laura Mock MD, DMD [address] [address] [email or web address] PCP - General Internal Medicine 06/04/21 11/11/23 Pcp, Unknown PCP - General 11/12/23 11/16/23 Laura Mock MD, DMD [address] [address] [email or web address] PCP - General Internal Medicine 11/17/23 12/28/23 Pcp, Unknown PCP - General 02/28/24 03/04/24 [place] [address] [place] [address] PCP - General 03/05/24 05/17/24 Laura Mock MD, DMD [address] [address] [email or web address] PCP - General Internal Medicine 05/18/24 Artie Meehan MD [address] [place] [address] [place] [address] Internal Medicine 10/26/17 04/23/22 Rina Swenson MD [address] [place] [address] Dr [place] [address] Psychiatry 07/09/17 Laura Mock MD, DMD [address] [address] [email or web address] Partners Attributed Provider 09/01/21 07/03/23 Laura Mock MD, DMD [address] [address] [email or web address] du Insurance Assigned Provider 05/31/23 03/01/24 Jakob Bob MD [address] [place] [address] [email or web address] Cardiology 08/22/23 Jose Cruz MD [address] [place] [address] [email or web address] Cardiology 08/22/23 Laura Mock MD, DMD [address] [address] [email or web address] Partners Attributed Provider 09/01/21 07/03/23 [place] [facility] [phone]. Consulting Provider 08/22/23 [facility] Connect 12/24/23 03/11/24 Cyril Morales [address] [place] [phone] Nurse Practitioner 02/27/24 documented as of this encounter Additional Source Comments The information contained in this document represents components of the legal health record. It is not the complete legal health record.[facility]
--- OUTSIDE RECORDS SUMMARY | 2024-10-28 15:21 | XMS_ITS | Encounter Summary ---
Author Organization [facility] Address [address] [facility] [address] [place] [address] Phone Care Team Providers Care Bulk Station Operator Name Role Phone Artie Meehan MD Primary Care Provider Arite Meehan MD Unavailable Rina Swenson MD Unavailable Laura Mock MD, DMD Primary Car e Provider Laura Mock MD, DMD Unavailable Laura Mock MD, DMD Unavailable Jakob Bob MD Unavailable Jose Cruz MD Unavailable [phone] Laura Mock MD, DMD Unavailable Pcp, Unknown Primary Care Provider UnavailLaura Ascencio MD, DMD Primary Car e Provider Pcp, Unknown Primary Care Provider UnavailNicole Arguello MD Primary Care Provide r Laura Mock MD, DMD Primary Car e Provider Encounter Details Date Type Department Care Team (Late st Contact Info) Description 11/27/2018 Transcribe Orders [facility] Rehabilitation Services 4 [place] [address] Artie Meehan MD [address] [place] [address] [place] [address] Social History Tobacco Use Types Packs/Day Years [...] st Contact Info) Description 05/24/2024 Procedure Pass [facility] Radiology [address] [place] [address] 11/24/2024 1:15 PM EDT Appointment [facility] Radiology 75 [place] [address] Jim Zacarias MD [address] [address] [email or web address] 11/24/2024 2:15 PM EDT Office Visit [facility] Thoracic Surgery 15 [facility] 204 [place] [address] Jim Zacarias MD [address] [address] [email or web address] 01/31/2025 1:00 PM EST Office Visit [facility] Cardiovascular Medicine 32 [facility], 5th Floor, [address] [place] [address] Karena Betancur MD 55 [facility] 5[address] [place] [address] [email or web address] Scheduled Procedures Name Priority Associated Diagnoses Date/Ti me COLONOSCOPY Abnormal colonoscopy documented as of this encounter Visit Diagnoses Not on filedocumented in this encounter Additional Health Concerns Infection Onset Date Last Indicated Resolved Time CoV-Presumed 03/23/2022 03/23/2022 04/13/2022 1:23 AM EST CoV-Risk 11/12/2023 11/12/2023 11/12/2023 5:12 PM EDT COVID-19 11/12/2023 11/12/2023 12/03/2023 1:21 AM EDT documented as of this encounter Care Teams Bulk Station Operator Relationship Specialty Start Date End Date Artie Meehan MD [address] [place] [address] Dr Dior [facility] [place] [address] PCP - General Internal Medicine 10/26/17 06/03/21 Laura Mock MD, DMD [address] [address] [email or web address] PCP - General Internal Medicine 06/04/21 11/11/23 Pcp, Unknown PCP - General 11/12/23 11/16/23 Laura Mock MD, DMD [address] [address] [email or web address] PCP - General Internal Medicine 11/17/23 12/28/23 Pcp, Unknown PCP - General 02/28/24 03/04/24 [place] [id number] [place] [address] PCP - General 03/05/24 05/17/24 Laura Mock MD, DMD [address] [address] [email or web address] PCP - General Internal Medicine 05/18/24 Artie Meehan MD [address] [place] [address] Dr Dior Elisabeth YOLIE [place]ES [address] Internal Medicine 10/26/17 04/23/22 Rina Swenson MD [address] [place] [address] [place] [address] Psychiatry 07/09/17 Laura Mock MD, DMD [address] [address] [email or web address] Attributed Provider 09/01/21 07/03/23 Laura Mock MD, DMD [address] [address] [email or web address] Insurance Assigned Provider 05/31/23 03/01/24 Jakob Bob MD [address] [place] [address] [email or web address] Cardiology 08/22/23 Jose Cruz MD [address] [place] [address] Cardiology 08/22/23 Laura Mock MD, DMD [address] [address] [email or web address] Attributed Provider 09/01/21 07/03/23 [facility] [phone]. Consulting Provider 08/22/23 [facility] Connect 12/24/23 03/11/24 Cyril Morales [address] [place] [address] Nurse Practitioner 02/27/24 documented as of this encounter Additional Source Comments The information contained in this document represents components of the legal health record. It is not the complete legal health record.[facility]
--- OUTSIDE RECORDS SUMMARY | 2024-10-28 15:21 | XMS_ITS | Encounter Summary ---
Author Organization [facility] Address [facility] [employer] [facility] [address] [place] [address] Phone Care Team Providers Care Director [employer] Name Role Phone Artie Meehan MD Primary Care Provider Artie Meehan MD Primary Care Provider Artie Meehan MD Unavailable Rina Swenson MD Unavailable Laura Mock MD, DMD Primary Car e Provider Laura Mock MD, DMD Unavailable Laura Mock MD, DMD Unavailable Jakob Bob MD Unavailable [phone] Jose Cruz MD Unavailable Laura Mock MD, DMD Unavailable Pcp, Unknown Primary Care Provider UnavailLaura Ascencio MD, DMD Primary Car e Provider Pcp, Unknown Primary Care Provider UnavailNicole Arguello MD Primary Care Provide r Laura Mock MD, DMD Primary Car e Provider Encounter Details Date Type Department Care Team (Late st Contact Info) Description 08/19/2017 Ancillary Orders Virtual Department [address] [place] [address] Artie Meehan MD [address] [place] [address] [place] [address] Breast screening Social History Tobacco Use Types [...] st Contact Info) Description 05/24/2024 Procedure Pass [facility] Radiology [address] [place] [address] 11/24/2024 1:15 PM EDT Appointment [facility] Radiology [address] [place] [address] Jim Zacarias MD [address] [address] [email or web address] 11/24/2024 2:15 PM EDT Office Visit [facility] Thoracic Surgery 15 [facility] 204 [place] [address] Jim Zacarias MD [address] [address] [email or web address] 01/31/2025 1:00 PM EST Office Visit [facility] Cardiovascular Medicine 32 [facility], 5th Floor, [address] [place] [address] Karena Betancur MD 55 [facility] 5B [place] [address] [email or web address] Scheduled Procedures Name Priority Associated Diagnoses Date/Ti ga COLONOSCOPY Abnormal colonoscopy documented as of this [...] lowers the sensitivity of mammography. POS - [id number] Narrative 09/12/2017 2:03 PM EDT Full-field digital [...] whichlowers the sensitivity of mammography. POS - [id number] Artie Meehan MD IMG MG EXAMS Final [...] as of this encounter Care Teams Director [employer] Relationship Specialty Start Date End Date Artie Meehan MD [address] [place] [address] Dr Dior [facility] [place] [address] PCP - General Internal Medicine 07/09/17 10/25/17 Artie Meehan MD [address] [place] [address] Dr Dior [facility] [place] [address] PCP - General Internal Medicine 10/26/17 06/03/21 Laura Mock MD, DMD [address] [address] [email or web address] PCP - General Internal Medicine 06/04/21 11/11/23 Pcp, Unknown PCP - General 11/12/23 11/16/23 Laura Mock MD, DMD [address] [address] [email or web address] PCP - General Internal Medicine 11/17/23 12/28/23 Pcp, Unknown PCP - General 02/28/24 03/04/24 [place] [address] [address] PCP - General 03/05/24 05/17/24 Laura Mock MD, DMD [address] [address] [email or web address] PCP - General Internal Medicine 05/18/24 Artie Meehan MD [address] [place] [address] Dr Dior [facility] [place] [address] Internal Medicine 10/26/17 04/23/22 Rina Swenson MD [address] [place] [address] Dr [address] [place], [place] [address] [address] Psychiatry 07/09/17 Laura Mock MD, DMD [address] [address] [email or web address] Partners Attributed Provider 09/01/21 07/03/23 Laura Mock MD, DMD [address] [address] [email or web address] Insurance Assigned Provider 05/31/23 03/01/24 Jakob Bob MD [address] [place] [address] [email or web address] Cardiology 08/22/23 Jose Cruz MD [address] [place] [address] [address] [place] [address] Cardiology 08/22/23 Laura Mock MD, DMD 1 [place] [address] [email or web address] Partners Attributed Provider 09/01/21 07/03/23 [facility] [phone]. Consulting Provider 08/22/23 CAROLANN GREWAL Connect 12/24/23 03/11/24 Cyril Morales [facility] [place] [address] Nurse Practitioner 02/27/24 documented as of this encounter Additional Source Comments The information contained in this document represents components of the legal health record. It is not the complete legal health record.[facility]
--- OUTSIDE RECORDS SUMMARY | 2024-10-28 15:21 | XMS_ITS | Encounter Summary ---
Author Organization [facility] Address [facility] [address] [place] [address] Phone Care Team Providers Care Tractor Sweeper Driver Name Role Phone Artie Meehan MD Primary Care Provider Artie Meehan MD Unavailable Rina Swenson MD Unavailable Laura Mock MD, DMD Primary Car e Provider Laura Mock MD, DMD Unavailable Laura Mock MD, DMD Unavailable Jakob Bob MD Unavailable [phone] Jose Cruz MD Unavailable Laura Mock MD, DMD Unavailable Pcp, Unknown Primary Care Provider UnavailLaura Ascencio MD, DMD Primary Car e Provider Pcp, Unknown Primary Care Provider UnavailNicole Arguello MD Primary Care Provide r Laura Mock MD, DMD Primary Car e Provider Encounter Details Date Type Department Care Team (Late st Contact Info) Description 05/15/2018 Procedure Pass [facility] [address] [place] [address] Social History Tobacco Use Types Packs/Day Years [...] Upcoming Encounters Date Type Department Care Team ([facility] Contact Info) Description 05/24/2024 Procedure Pass [facility] Radiology 75 [place] [address] 11/24/2024 1:15 PM EDT Appointment [facility] Radiology [address] [place] [address] Jim Zacarias MD [phone] [place] [address] [email or web address] 11/24/2024 2:15 PM EDT Office Visit [facility] Thoracic Surgery 15 [facility] 204 [place] [address] Jim Zacarias MD [phone] [place] [address] [email or web address] 01/31/2025 1:00 PM EST Office Visit [facility] Cardiovascular Medicine [address] [facility], 5th Floor, [address] [place] [address] Karena Betancur MD 55 [facility] 5B [place] [address] [email or web address] Scheduled Procedures Name Priority Associated [...] documented as of this encounter Care Teams Tractor Sweeper Driver Relationship Specialty Start Date End Date Artie Meehan MD [address] [place] [address] Dr [address] [place] [address] PCP - General Internal Medicine 10/26/17 06/03/21 Laura Mock MD, DMD [address] [address] [email or web address] PCP - General Internal Medicine 06/04/21 11/11/23 Pcp, Unknown PCP - General 11/12/23 11/16/23 Laura Mock MD, DMD [address] [address] [email or web address] PCP - General Internal Medicine 11/17/23 12/28/23 Pcp, Unknown PCP - General 02/28/24 03/04/24 [place] [address] [address] PCP - General 03/05/24 05/17/24 Laura Mock MD, DMD [address] [address] [email or web address] PCP - General Internal Medicine 05/18/24 Artie Meehan MD [address] [place] [address] [place] [address] Internal Medicine 10/26/17 04/23/22 Rina Swenson MD [address] [place] [address] [place] [address] Psychiatry 07/09/17 Laura Mock MD, DMD [address] [address] [email or web address] Attributed Provider 09/01/21 07/03/23 Laura Mock MD, DMD [address] [address] [email or web address] Insurance Assigned Provider 05/31/23 03/01/24 Jakob Bob MD [address] [place] [address] [email or web address] Cardiology 08/22/23 Jose Cruz MD [address] [place] [address], [address] [place] [address] [email or web address] Cardiology 08/22/23 Laura Mock MD, DMD [address] [address] [email or web address] Partners Attributed Provider 09/01/21 07/03/23 [facility] [phone]. Consulting Provider 08/22/23 [facility] Connect 12/24/23 03/11/24 Cyril Morales [facility]5 [place] [address] Nurse Practitioner 02/27/24 documented as of this encounter Additional Source Comments The information contained in this document represents components of the legal health record. It is not the complete legal health record.[facility]
--- OUTSIDE RECORDS SUMMARY | 2024-10-28 15:21 | XMS_ITS | Encounter Summary ---
Author Organization [facility] Address [address] 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 11/24/2024 2:15 PM EDT Office Visit [facility] Thoracic Surgery 15 [facility] 204 [place] [address] Jim Zacarias MD [address] [address] [email or web address] 01/31/2025 1:00 PM EST Office Visit [facility] Cardiovascular Medicine 32 [facility], 5th Floor, [address] [place] [address] Karena Betancur MD [address] [address] [email or web address] Scheduled Procedures Name Priority Associated Diagnoses [...] documented as of this encounter Care Teams Freelance Displayer Relationship Specialty Start Date End Date Artie Meehan MD [address] [place] [address] [place] [facility] [place] [address] PCP - General Internal Medicine 10/26/17 06/03/21 Laura Mock MD, DMD [address] [address] [email or web address] PCP - General Internal Medicine 06/04/21 11/11/23 Pcp, Unknown PCP - General 11/12/23 11/16/23 Laura Mock MD, DMD [address] [address] [email or web address] PCP - General Internal Medicine 11/17/23 12/28/23 Pcp, Unknown PCP - General 02/28/24 03/04/24 [place] [address] [address] PCP - General 03/05/24 05/17/24 Laura Mock MD, DMD [address] [address] [email or web address] PCP - General Internal Medicine 05/18/24 Artie Meehan MD [address] [place] [address] Dr Dior [address] [place] [address] Internal Medicine 10/26/17 04/23/22 Rina Swenson MD [address] [place] [address] [place] [address] Psychiatry 07/09/17 Laura Mock MD, DMD [address] [address] [email or web address] Attributed Provider 09/01/21 07/03/23 Laura Mock MD, DMD [address] [address] [email or web address] Insurance Assigned Provider 05/31/23 03/01/24 Jakob Bob MD [address] [place] [address] [email or web address] Cardiology 08/22/23 Jose Cruz MD [address] [place] [address], [address] [place] [address] [email or web address] Cardiology 08/22/23 Laura Mock MD, DMD [address] [address] [email or web address] Partners Attributed Provider 09/01/21 07/03/23 [facility] [phone]. Consulting Provider 08/22/23 [facility] Connect 12/24/23 03/11/24 Cyril Morales [address] [place] [address] Nurse Practitioner 02/27/24 documented as of this encounter Additional Source Comments The information contained in this document represents components of the legal health record. It is not the complete legal health record.[facility]
--- OUTSIDE RECORDS SUMMARY | 2024-10-28 15:21 | XMS_ITS | Encounter Summary ---
Author Organization [facility] Address Counts include 234 beds at the [facility] [employer] [address] [address] Phone Care Team Providers Care Tester Wafer Substrate Name Role Phone Artie Meehan MD Primary Care Provider Artie eMehan MD Unavailable Rina Swenson MD Unavailable Laura Mock MD, DMD Primary Car e Provider Laura Mock MD, DMD Unavailable Laura Mock MD, DMD Unavailable Jakob Bob MD Unavailable [phone] Jose Cruz MD Unavailable Laura Mock [...] sequela Artie Meehan MD Phone: tel: fax: [facility] 30 [place] [address] Phone: tel: Referral ID Status Reason Start Date Expiration Date Visits Re quested Visits Authorized [id number] Closed 11/27/2018 02/23/2019 99 99 Encounter Details Date Type Department Care Team (Latest Contact Info) Description 11/27/2018 Transcribe Orders [facility] Rehabilitation Services [address] [place] [address] Artie Meehan MD [address] [place] [address] [facility] [place] [address] Left wrist fracture, sequela (Primary Dx) Social [...] 05/24/2024 Procedure Pass [facility] [address] [place] [address] 11/24/2024 1:15 PM EDT Appointment [facility] [address] [place] [address] Jim Zacarias MD [address] [place] [address] [email or web address] 11/24/2024 2:15 PM EDT Office Visit [facility] Thoracic Surgery 15 [facility] 204 [place] [address] Jim Zacarias MD 75 [facility] [address] [place] [address] [email or web address] 01/31/2025 1:00 PM EST Office Visit [facility] Cardiovascular Medicine 32 [facility], 5th Floor, [address] [place] [address] Karena Betancur MD 55 [facility] [address] [place] [address] [email or web address] Scheduled Procedures Name Priority Associated Diagnoses Date/Ti me COLONOSCOPY Abnormal colonoscopy documented as of this encounter Procedures Procedure Name Priority Date/Time Associated Diagnosis Comments AMB REFERRAL TO [facility] OCCUPATIONAL THERAPY Routine 12/08/2018 4:10 PM EDT Left wrist fracture, sequela documented in this encounter Results * Ambulatory referral to [facility] Occupational Therapy (12/08/2018 4:10 PM EDT) us Artie Meehan MD AMB [facility] REFERRALS Final R esult documented in this encounter Visit Diagnoses Diagnosis Left wrist fracture, sequela- Primary documented in this encounter Additional Health Concerns Infection Onset Date Last Indicated Resolved Time CoV-Presumed 03/23/2022 03/23/2022 04/13/2022 1:23 AM EST CoV-Risk 11/12/2023 11/12/2023 11/12/2023 5:12 PM EDT COVID-19 11/12/2023 11/12/2023 12/03/2023 1:21 AM EDT documented as of this encounter Care Teams Tester Wafer Substrate Relationship Specialty Start Date End Date Artie Meehan MD [address] [place] [address] [place] [address] PCP - General Internal Medicine 10/26/17 06/03/21 Laura Mock MD, DMD 1 [facility] [address] [place] [address] [email or web address] PCP - General Internal Medicine 06/04/21 11/11/23 Pcp, Unknown PCP - General 11/12/23 11/16/23 Laura Mock MD, DMD 1 [facility] [address] [place] [address] [email or web address] PCP - General Internal Medicine 11/17/23 12/28/23 Pcp, Unknown PCP - General 02/28/24 03/04/24 Nicole Newell MD [address] [place] [address] PCP - General 03/05/24 05/17/24 Laura Mock MD, DMD [address] [address] [email or web address] PCP - General Internal Medicine 05/18/24 Artie Meehan MD [address] [place] [address] Dr [address] [place] [address] Internal Medicine 10/26/17 04/23/22 Rina Swenson MD [address] [place] [address] Dr [address] [place] [address] Psychiatry 07/09/17 Laura Mock MD, DMD [address] [address] [email or web address] Partners Attributed Provider 09/01/21 07/03/23 Laura Mock MD, DMD [address] [address] [email or web address] Insurance Assigned Provider 05/31/23 03/01/24 Jakob Bob MD [address] [place] [address] [email or web address] Cardiology 08/22/23 Jose Cruz MD [address] [place] [address] 301 [place] [address] [email or web address] Cardiology 08/22/23 Laura Mock MD, DMD [address] [address] [email or web address] [employer] Attributed Provider 09/01/21 07/03/23 [facility] [phone]. Consulting Provider 08/22/23 [facility] Connect 12/24/23 03/11/24 Cyril Morales [address] [place] [address] Nurse Practitioner 02/27/24 documented as of this encounter Additional Source Comments The information contained in this document represents components of the legal health record. It is not the complete legal health record.[facility]
--- OUTSIDE RECORDS SUMMARY | 2024-10-28 15:21 | XMS_ITS | Encounter Summary ---
Author Organization [facility] Address [facility] [employer] [address] [address] Phone Care Team Providers Care Manager Basketball Name Role Phone Rina Swenson MD Unavailable [...] Pass [facility] Radiology 75 [place] [address] 11/24/2024 1:15 PM EDT Appointment [facility] Radiology 75 [place] [address] Jim Zacarias MD [address] [address] [email or web address] 11/24/2024 2:15 PM EDT Office [facility] Thoracic Surgery 15 [facility] 204 [place] [address] Jim Zacarias MD [address] [address] [email or web address] 01/31/2025 1:00 PM EST Office [place] [facility] [place] 32 [facility], 5th Floor, [address] [place] [address] Karena Betancur MD 55 [facility] 5[address] [place] [address] [email or web address] Scheduled Procedures Name Priority Associated [...] as of this encounter Care Teams Manager Basketball Relationship Specialty Start Date End Date Laura Mock MD, DMD [address] [address] [email or web address] PCP - General Internal Medicine 06/04/21 11/11/23 Pcp, Unknown PCP - General 11/12/23 11/16/23 Laura Mock MD, DMD [address] [address] [email or web address] PCP - General Internal Medicine 11/17/23 12/28/23 Pcp, Unknown PCP - General 02/28/24 03/04/24 Nicole Newell MD [address] [place] [address] PCP - General 03/05/24 05/17/24 Laura Mock MD, DMD [address] [address] [email or web address] PCP - General Internal Medicine 05/18/24 Rina Swenson MD Psychiatry 07/09/17 Laura Mock MD, DMD [address] [address] [email or web address] Partners Attributed Provider 09/01/21 07/03/23 Laura Mock MD, DMD [address] [address] [email or web address] Insurance Assigned Provider 05/31/23 03/01/24 Jakob Bob MD [address] [place] [address] [email or web address] Cardiology 08/22/23 Jose Cruz MD [address] [place] [address], [address] [address] [email or web address] Cardiology 08/22/23 Laura Mock MD, DMD [address] [address] [email or web address] Partners Attributed Provider 09/01/21 07/03/23 [facility] [phone]. Consulting Provider 08/22/23 [facility] Connect 12/24/23 03/11/24 Cyril Morales [address] [place] [address] Nurse Practitioner 02/27/24 documented as of this encounter Additional Source Comments The information contained in this document represents components of the legal health record. It is not the complete legal health record.[facility]
--- OUTSIDE RECORDS SUMMARY | 2024-10-28 15:21 | XMS_ITS | Encounter Summary ---
Author Organization [facility] Address [address] [employer] [facility] [address] [place] [address] Phone Care Team Providers Care Rn Rehab Name Role Phone Rina Swenson MD Unavailable [...] Procedure Pass [facility] 75 [place] [address] Social History Tobacco Use Types Packs/Day Years [...] Contact Info) Description 05/24/2024 Procedure Pass [facility] Radiology [address] [place] [address] 11/24/2024 1:15 PM EDT Appointment [facility] Radiology [address] [place] [address] Jim Zacarias MD [address] [address] [email or web address] 11/24/2024 2:15 PM EDT Office Visit [facility] Thoracic Surgery 15 [facility] 204 [place] [address] Jim Zacarias MD [address] [address] [email or web address] 01/31/2025 1:00 PM EST Office [place] [facility] [place] 32 [facility], 5th Floor, [address] [place] [address] Karena Betancur MD [address] [address] [email or web address] Scheduled Procedures [...] documented as of this encounter Care Teams Rn Rehab Relationship Specialty Start Date End Date Laura Mock MD, DMD [address] [address] [email or web address] PCP - General Internal Medicine 06/04/21 11/11/23 Pcp, Unknown PCP - General 11/12/23 11/16/23 Laura Mock MD, DMD [address] [address] [email or web address] PCP - General Internal Medicine 11/17/23 12/28/23 Pcp, Unknown PCP - General 02/28/24 03/04/24 [place] [address] [address] PCP - General 03/05/24 05/17/24 Laura Mock MD, DMD [address] [address] [email or web address] du PCP - General Internal Medicine 05/18/24 Rina Swenson MD Psychiatry 07/09/17 Laura Mock MD, DMD [address] [address] [email or web address] Partners Attributed Provider 09/01/21 07/03/23 Laura Mock MD, DMD [address] [address] [email or web address] Insurance Assigned Provider 05/31/23 03/01/24 Jakob Bob MD [address] [place] [address] [email or web address] Cardiology 08/22/23 Jose Cruz MD [address] [place] [address] [email or web address] Cardiology 08/22/23 Laura Mock MD, DMD [address] [address] [email or web address] Partners Attributed Provider 09/01/21 07/03/23 [facility] [phone]. Consulting Provider 08/22/23 [facility] 12/24/23 03/11/24 Cyril Morales [address] [place] [address] Nurse Practitioner 02/27/24 documented as of this encounter Additional Source Comments The information contained in this document represents components of the legal health record. It is not the complete legal health record.[facility]
--- OUTSIDE RECORDS SUMMARY | 2024-10-28 15:21 | XMS_ITS | Encounter Summary ---
Author Organization [facility] Address [facility] MD [address] [address] Phone Care Team Providers Care Socket Puller Name Role Phone Rina Swenson MD Unavailable Laura Mock MD, DMD Primary Car e Provider Laura Mock MD, DMD Unavailable Laura Mock MD, DMD Unavailable Jakob Bob MD Unavailable Jose Cruz MD Unavailable [phone] Laura Mock MD, DMD Unavailable Pcp, Unknown [...] Procedure Pass [facility] Radiology 75 [place] [address] 11/24/2024 1:15 PM EDT Appointment [facility] Radiology 75 [place] [address] Jim Zacarias MD [address] [address] [email or web address] 11/24/2024 2:15 PM EDT Office [facility] Thoracic Surgery [address] [address] Jim Zacarias MD [address] [address] [email or web address] 01/31/2025 1:00 PM EST Office Visit [facility] Cardiovascular Medicine 32 [facility], 5th Floor, [address] [place] [address] Karena Betancur MD [address] [address] [email or web address] [...] documented as of this encounter Care Teams Socket Puller Relationship Specialty Start Date End Date Laura Mock MD, DMD [address] [address] [email or web address] PCP - General Internal Medicine 06/04/21 11/11/23 Pcp, Unknown PCP - General 11/12/23 11/16/23 Laura Mock MD, DMD [address] [address] [email or web address] du PCP - General Internal Medicine 11/17/23 12/28/23 Pcp, Unknown PCP - General 02/28/24 03/04/24 Nicole Newell MD [address] [place] [address] PCP - General 03/05/24 05/17/24 Laura Mock MD, DMD [address] [address] [email or web address] du PCP - General Internal Medicine 05/18/24 Rina Swenson MD Psychiatry 07/09/17 Laura Mock MD, DMD [address] [address] [email or web address] du Partners Attributed Provider 09/01/21 07/03/23 Laura Mock MD, DMD 1 [facility] [address] [place] [address] [email or web address] du Insurance Assigned Provider 05/31/23 03/01/24 Jakob Bob MD [address] [place] [address] [email or web address] Cardiology 08/22/23 Jose Cruz MD [address] [place] [address], [facility] [address] [place] [address] [email or web address] Cardiology 08/22/23 Laura Mock MD, DMD [address] [address] [email or web address] Partners Attributed Provider 09/01/21 07/03/23 [facility] [phone]. Consulting Provider 08/22/23 [facility] 12/24/23 03/11/24 Cyril Morales [facility] [place] [address] Nurse Practitioner 02/27/24 documented as of this encounter Additional Source Comments The information contained in this document represents components of the legal health record. It is not the complete legal health record.[facility]
--- OUTSIDE RECORDS SUMMARY | 2024-10-28 15:21 | XMS_ITS | Encounter Summary ---
Author Organization [facility] Address [address] [employer] [facility] [address] [place] [address] Phone Care Team Providers Care Material Lister Name Role Phone Rina Swenson MD Unavailable Laura Mock MD, DMD Unavailable Jakob Bob MD Unavailable [phone] Jose Cruz MD Unavailable Laura Mock MD, DMD Primary Car e Provider Pcp, Unknown Primary Care Provider Unavailabl e Nicole Newell MD Primary Care Provide r Laura Mock MD, DMD Primary Car e Provider Encounter Details Date Type Department Care Team (Late st Contact Info) Description 12/04/[address] [facility] Periop 75 [place] [address] Social History Tobacco Use Types Packs/Day Years [...] Procedure Pass [facility] Radiology [address] [place] [address] 11/24/2024 1:15 PM EDT Appointment [facility] Radiology [address] [place] [address] Jim Zacarias MD [address] [place] [address] [email or web address] 11/24/2024 2:15 PM EDT Office Visit [facility] Thoracic Surgery 15 [facility] [address] [place] [address] Jim Zacarias MD [address] [place] [address] [email or web address] 01/31/2025 1:00 PM EST Office [place] [facility] [place] [address] [place] [address], 5th Floor, [address] [place] [address] Karena Betancur MD [address] [place] [address] [email or web address] Scheduled Procedures Name Priority Associated Diagnoses Date/Ti me COLONOSCOPY Abnormal colonoscopy documented as of this encounter Visit Diagnoses Not on filedocumented in this encounter Additional Health Concerns Assessment Noted Time PHQ-9 Depression Total Score: 17 023 11:28 AM EST PHQ-2 Depression Total Score: 2 10/10/19 23 11:28 AM EDT documented as of this encounter Care Teams Material Lister Relationship Specialty Start Date End Date Laura Mock MD, DMD [address] [address] [email or web address] so PCP - General Internal Medicine 11/17/23 12/28/23 Pcp, Unknown PCP - General 02/28/24 03/04/24 Nicole Newell MD [address] [place] [address] PCP - General 03/05/24 05/17/24 Laura Mock MD, DMD [address] [address] [email or web address] so PCP - General Internal Medicine 05/18/24 Rina Swenson MD Psychiatry 07/09/17 Laura Mock MD, DMD [address] [address] [email or web address] Insurance Assigned Provider 05/31/23 03/01/24 Jakob Bob MD [address] [place] [address] [email or web address] Cardiology 08/22/23 Jose Cruz MD [address] [place] [address], [address] [place] [address] [email or web address] Cardiology 08/22/23 [facility] [phone]. Consulting Provider 08/22/23 [facility] Connect 12/24/23 03/11/24 Cyril Morales [facility] [place] [address] Nurse Practitioner 02/27/24 documented as of this encounter Additional Source Comments The information contained in this document represents components of the legal health record. It is not the complete legal health record.[facility]
--- OUTSIDE RECORDS SUMMARY | 2024-10-28 15:22 | XMS_ITS | Encounter Summary ---
Author Organization [facility] Address On license of [facility] [address] [place] [address] Phone Care Team Providers Care Filler Spreader Name Role Phone Artie Meehan MD Primary Care Provider Artie Meehan MD Unavailable Rina Swenson MD Unavailable Laura Mock MD, DMD Primary Car e Provider Laura Mock MD, DMD Unavailable Laura Mock MD, DMD Unavailable Jakob Bob MD Unavailable [phone] Jose Cruz MD Unavailable Laura Mock MD, DMD Unavailable Pcp, Unknown Primary Care Provider UnavailLaura Ascencio MD, DMD Primary Car e Provider Pcp, Unknown Primary Care Provider UnavailNicole Arguello MD Primary Care Provide r Laura Mock MD, DMD Primary Car e Provider Encounter Details Date Type Department Care Team (Late st Contact Info) Description 12/19/2017 Procedure Pass [facility] Radiology 75 [place] [address] Social History Tobacco Use Types Packs/Day Years [...] Upcoming Encounters Date Type Department Care Team ([facility] st Contact Info) Description 05/24/2024 Procedure Pass [facility] Radiology [address] [place] [address] 11/24/2024 1:15 PM EDT Appointment [facility] Radiology [address] [place] [address] Jim Zacarias MD [address] [place] [address] [email or web address] 11/24/2024 2:15 PM EDT Office Visit [facility] Thoracic Surgery [address] [address] Jim Zacarias MD [address] [place] [address] [email or web address] 01/31/2025 1:00 PM EST Office Visit [facility] Cardiovascular Medicine [address] [place] [address], 5th Floor, [address] [place] [address] Karena Betancur MD [address] [place] [address] [email or web address] Scheduled Procedures Name [...] documented as of this encounter Care Teams Filler Spreader Relationship Specialty Start Date End Date Artie Meehan MD [address] [place] [address] PCP - General Internal Medicine 10/26/17 06/03/21 Laura Mock MD, DMD [address] [address] [email or web address] PCP - General Internal Medicine 06/04/21 11/11/23 Pcp, Unknown PCP - General 11/12/23 11/16/23 Laura Mock MD, DMD [address] [address] [email or web address] PCP - General Internal Medicine 11/17/23 12/28/23 Pcp, Unknown PCP - General 02/28/24 03/04/24 [place] [address] [address] PCP - General 03/05/24 05/17/24 Laura Mock MD, DMD [address] [address] [email or web address] du PCP - General Internal Medicine 05/18/24 Artie Meehan MD [address] [place] [address] Dr [address] [place] [address] Internal Medicine 10/26/17 04/23/22 Rina Swenson MD [address] [place] [address] Dr [address] [place] [address] [place] [address] Psychiatry 07/09/17 Laura Mock MD, DMD [address] [address] [email or web address] Partners Attributed Provider 09/01/21 07/03/23 Laura Mock MD, DMD [address] [address] [email or web address] du Insurance Assigned Provider 05/31/23 03/01/24 Jakob Bob MD [address] [place] [address] [email or web address] Cardiology 08/22/23 Jose Cruz MD [address] [place] [address] Cardiology 08/22/23 Laura Mock MD, DMD 1 [facility] [address] [place] [address] [email or web address] Partners Attributed Provider 09/01/21 07/03/23 [facility] [phone]. Consulting Provider 08/22/23 [facility] Connect 12/24/23 03/11/24 Cyril Morales [address] [place] [address] Nurse Practitioner 02/27/24 documented as of this encounter Additional Source Comments The information contained in this document represents components of the legal health record. It is not the complete legal health record.[facility]
--- OUTSIDE RECORDS SUMMARY | 2024-10-28 15:22 | XMS_ITS | Encounter Summary ---
Author Organization [facility] Address [facility] [employer] [facility] [address] [place] [address] Phone Care Team Providers Care Intelligence Officer Name Role Phone Artie Meehan MD Primary Care Provider Artie Meehan MD Unavailable Rina Swenson MD Unavailable Laura Mock MD, DMD Primary Car e Provider Laura Mock MD, DMD Unavailable Laura Mock MD, DMD Unavailable Jakob Bob MD Unavailable [phone] Jose Cruz MD Unavailable [phone] Laura Mock MD, DMD Unavailable Pcp, Unknown Primary Care Provider UnavailLaura Ascencio MD, DMD Primary Car e Provider Pcp, Unknown Primary Care Provider UnavailNicole Arguello MD Primary Care Provide r Laura Mock MD, DMD Primary Car e Provider Encounter Details Date Type Department Care Team (Late st Contact Info) Description 12/24/2017 Procedure Pass [facility] Radiology [address] [place] [address] Social History Tobacco Use Types Packs/Day Years [...] Upcoming Encounters Date Type Department Care Team ([facility] st Contact Info) Description 05/24/2024 Procedure Pass [facility] Radiology [address] [place] [address] 11/24/2024 1:15 PM EDT Appointment [facility] Radiology [address] [place] [address] Jim Zacarias MD [address] [place] [address] [email or web address] 11/24/2024 2:15 PM EDT Office [facility] Thoracic Surgery [address] [place] [address] Jim Zacarias MD [address] [place] [address] [email or web address] 01/31/2025 1:00 PM EST Office Visit [facility] Cardiovascular Medicine [address] [place] [address], 5th Floor, [address] [place] [address] Karena Betancur MD 55 [facility] 5[address] [place] [address] [email or web address] Scheduled Procedures Name Priority Associated [...] documented as of this encounter Care Teams Intelligence Officer Relationship Specialty Start Date End Date Artie Meehan MD [address] [place] [address] PCP - General Internal Medicine 10/26/17 06/03/21 Laura Mock MD, DMD [address] [place] [address] [address] [email or web address] PCP - General Internal Medicine 06/04/21 11/11/23 Pcp, Unknown PCP - General 11/12/23 11/16/23 Laura Mock MD, DMD [address] [address] [email or web address] PCP - General Internal Medicine 11/17/23 12/28/23 Pcp, Unknown PCP - General 02/28/24 03/04/24 [place] [address] [address] PCP - General 03/05/24 05/17/24 Laura Mock MD, DMD [address] [place] [address] [address] [email or web address] du PCP - General Internal Medicine 05/18/24 Artie Meehan MD [address] [place] [address] Dr [address] [place] [address] Internal Medicine 10/26/17 04/23/22 Rina Swenson MD [address] [place] [address] Dr [address] [place] [address] [place] [address] Psychiatry 07/09/17 Laura Mock MD, DMD [address] [place] [address] [address] [email or web address] Partners Attributed Provider 09/01/21 07/03/23 Laura Mock MD, DMD [address] [place] [address] [address] [email or web address] du Insurance Assigned Provider 05/31/23 03/01/24 Jakob Bob MD [address] [place] [address] [email or web address] Cardiology 08/22/23 Jose Cruz MD [address] [place] [address] Cardiology 08/22/23 Laura Mock MD, DMD 1 [facility] [address] [place] [address] [email or web address] Partners Attributed Provider 09/01/21 07/03/23 [facility] [phone]. Consulting Provider 08/22/23 CAROL[facility] GREWAL Connect 12/24/23 03/11/24 Cyril Morales [address] [place] [address] Nurse Practitioner 02/27/24 documented as of this encounter Additional Source Comments The information contained in this document represents components of the legal health record. It is not the complete legal health record.[facility]
--- OUTSIDE RECORDS SUMMARY | 2024-10-28 15:22 | XMS_ITS | Encounter Summary ---
Author Organization [facility] Address [facility] [address] [place] [address] Phone Care Team Providers Care Insulation Supervisor Name Role Phone Artie Meehan MD Primary Care Provider Artie Meehan MD Unavailable Rina Swenson MD Unavailable Laura Mock MD, DMD Primary Car e Provider Laura Mock MD, DMD Unavailable Laura Mock MD, DMD Unavailable Jakob Bob MD Unavailable Jose Cruz MD Unavailable [phone] Laura Mock MD, DMD Unavailable Pcp, Unknown [...] Interpretation) Daryn Moyer MD Phone: tel: fax: mailto:[email or web address] Referral ID Status Reason Start Date Expiration Date Visits Re quested Visits Authorized [id number] Closed 01/06/2018 01/06/2019 1 1 Encounter Details Date Type Department Care Team (Late st Contact Info) Description 01/06/2018 Transcribe Orders [facility] Rad[facility] [address] [place] [address] Shira Mann [address] [place] [address] [email or web address] Social History Tobacco Use Types [...] (Late Contact Info) Description 05/24/2024 Procedure Pass [facility] Rad[facility] [address] [place] [address] 11/24/2024 1:15 PM EDT Appointment [facility] Radiology [address] [place] [address] Jim Zacarias MD [address] [place] [address] [email or web address] 11/24/2024 2:15 PM EDT Office Visit [facility] Thoracic Surgery 15 [facility] 204 [place] [address] Jim Zacarias MD [address] [place] [address] [email or web address] 01/31/2025 1:00 PM EST Office Visit [facility] Cardiovascular Medicine 32 [facility], 5th Floor, [address] [place] [address] Karena Betancur MD 55 [facility] [address] [place] [address] [email or web address] Scheduled Procedures Name Priority Associated Diagnoses Date/Ti me COLONOSCOPY Abnormal colonoscopy documented as of this encounter Results * MRI Lower Extremity Outside (No Interpretation) (01/06/2018 11:46 AM EST) Narrative [facility] 01/06/2018 11:46 AM EST This study is for PACS storage only and not for interpretation. us Daryn Moyer MD IMG OUTSIDE IMAGING W/OUT INT ERPRETATION Final Result [facility] documented in this encounter Visit Diagnoses Not on filedocumented in this encounter Additional Health Concerns Infection Onset Date Last Indicated Resolved Time CoV-Presumed 03/23/2022 03/23/2022 04/13/2022 1:23 AM EST CoV-Risk 11/12/2023 11/12/2023 11/12/2023 5:12 PM EDT COVID-19 11/12/2023 11/12/2023 12/03/2023 1:21 AM EDT documented as of this encounter Care Teams Insulation Supervisor Relationship Specialty Start Date End Date Artie Meehan MD [address] [place] [address] [place] [address] PCP - General Internal Medicine 10/26/17 06/03/21 Laura Mock MD, DMD 1 [facility] [address] [place] [address] [email or web address] PCP - General Internal Medicine 06/04/21 11/11/23 Pcp, Unknown PCP - General 11/12/23 11/16/23 Laura Mock MD, DMD 1 [facility] [address] [place] [address] [email or web address] PCP - General Internal Medicine 11/17/23 12/28/23 Pcp, Unknown PCP - General 02/28/24 03/04/24 Nicole Newell MD [address] [place] [address] PCP - General 03/05/24 05/17/24 Laura Mock MD, DMD [address] [address] [email or web address] PCP - General Internal Medicine 05/18/24 Artie Meehan MD [address] [place] [address] Dr [address] [place] [address] Internal Medicine 10/26/17 04/23/22 Rina Swenson MD [address] [place] [address] Dr [address] [place] [address] Psychiatry 07/09/17 Laura Mock MD, DMD [address] [address] [email or web address] Attributed Provider 09/01/21 07/03/23 Laura Mock MD, DMD 1 [facility] [address] [place] [address] [email or web address] Insurance Assigned Provider 05/31/23 03/01/24 Jakob Bob MD 75 [place] [address] [email or web address] Cardiology 08/22/23 Jose Cruz MD [address] [place] [address] 301 [place] [address] [email or web address] Cardiology 08/22/23 Laura oMck MD, DMD [address] [address] [email or web address] Attributed Provider 09/01/21 07/03/23 [place] [facility] [phone]. Consulting Provider 08/22/23 [facility] Connect 12/24/23 03/11/24 Cyril Morales [address] [place] [phone] Nurse Practitioner 02/27/24 documented as of this encounter Additional Source Comments The information contained in this document represents components of the legal health record. It is not the complete legal health record.[facility]
--- OUTSIDE RECORDS SUMMARY | 2024-10-28 15:22 | XMS_ITS | Encounter Summary ---
Author Organization [facility] Address [facility] [employer] [facility] [address] [place] [address] Phone Care Team Providers Care Contract Designer Name Role Phone Artie Meehan MD Primary [...] st Contact Info) Description 01/06/2018 Procedure Pass [facility] Radiology 75 [place] [address] Social History Tobacco Use Types Packs/Day Years [...] Upcoming Encounters Date Type Department Care Team ([facility] Contact Info) Description 05/24/2024 Procedure Pass [facility] Radiology 75 [place] [address] 11/24/2024 1:15 PM EDT Appointment [facility] Radiology [address] [place] [address] Jim Zacarias MD [address] [address] [email or web address] 11/24/2024 2:15 PM EDT Office Visit [facility] Thoracic Surgery 15 [facility] 204 [place] [address] Jim Zacarias MD [address] [address] [email or web address] 01/31/2025 1:00 PM EST Office Visit [facility] Cardiovascular Medicine 32 [facility], 5th Floor, [address] [place] [address] Karena Betancur MD 55 [facility] [address] [place] [address] [email or web address] Scheduled Procedures Name Priority Associated [...] documented as of this encounter Care Teams Contract Designer Relationship Specialty Start Date End Date Artie Meehan MD [address] [place] [address] Dr Dior [address] [place] [address] PCP - General Internal Medicine 10/26/17 06/03/21 Laura Mock MD, DMD [address] [address] [email or web address] PCP - General Internal Medicine 06/04/21 11/11/23 Pcp, Unknown PCP - General 11/12/23 11/16/23 Laura Mock MD, DMD [address] [address] [email or web address] PCP - General Internal Medicine 11/17/23 12/28/23 Pcp, Unknown PCP - General 02/28/24 03/04/24 [place] [address] [address] PCP - General 03/05/24 05/17/24 Laura Mock MD, DMD [address] [address] [email or web address] PCP - General Internal Medicine 05/18/24 Artie Meehan MD [address] [place] [address] [place] [address] Internal Medicine 10/26/17 04/23/22 Rina Swenson MD [address] [place] [address] [place] [address] Psychiatry 07/09/17 Laura Mock MD, DMD [address] [address] [email or web address] Attributed Provider 09/01/21 07/03/23 Laura Mock MD, DMD [address] [address] [email or web address] Insurance Assigned Provider 05/31/23 03/01/24 Jakob Bob MD [address] [place] [address] [email or web address] Cardiology 08/22/23 Jose Cruz MD [address] [place] [address] Cardiology 08/22/23 Laura Mcok MD, DMD [address] [address] [email or web address] Attributed Provider 09/01/21 07/03/23 [place] [facility] [phone]. Consulting Provider 08/22/23 [facility] Connect 12/24/23 03/11/24 Cyril Morales [address] [place] [phone] Nurse Practitioner 02/27/24 documented as of this encounter Additional Source Comments The information contained in this document represents components of the legal health record. It is not the complete legal health record.[facility]
--- OUTSIDE RECORDS SUMMARY | 2024-10-28 15:22 | XMS_ITS | Encounter Summary ---
Author Organization [facility] Address [facility] access [facility] [address] [place] [address] Phone Care Team Providers Care Parimutuel Cashier Name Role Phone Artie Meehan MD Primary Care Provider Artie Meehan MD Unavailable Rina Swenson MD Unavailable Laura Mock MD, DMD Primary Car e Provider Laura Mock MD, DMD Unavailable Laura Mock MD, DMD Unavailable Jakob Bob MD Unavailable [phone] Jose Cruz MD Unavailable [phone] Laura Mock MD, DMD Unavailable Pcp, Unknown [...] (GI/) Daryn Moyer MD Phone: tel: fax: mailto:[email or web address] Referral ID Status Reason Start Date Expiration Date Visits Re quested Visits Authorized [id number] Closed 12/24/2017 12/24/2018 1 1 Encounter Details Date Type Department Care Team ([facility] Contact Info) Description 12/24/2017 Ancillary Orders [facility] Urology [address] [place], [place] [address]22[address] [place] [address] Daryn Moyer MD 45 [facility] [address] [place] [address] [email or web address] Social History Tobacco [...] Upcoming Encounters Date Type Department Care Team ([facility] Contact Info) Description 05/24/2024 Procedure Pass [facility] Radiology [address] [place] [address] 11/24/2024 1:15 PM EDT Appointment [facility] Radiology [address] [place] [address] Jim Zacarias MD 75 [facility] [address] [place] [address] [email or web address] 11/24/2024 2:15 PM EDT Office Visit [facility] Thoracic Surgery 15 [facility] [address] [place] [address] Jim Zacarias MD 75 [facility] [address] [place] [address] [email or web address] 01/31/2025 1:00 PM EST Office Visit [facility] Cardiovascular Medicine 32 [facility], 5th Floor, [address] [place] [address] Karena Betancur MD 55 [facility] [address] [place] [address] [email or web address] Scheduled Procedures Name Priority Associated Diagnoses Date/Ti tx COLONOSCOPY Abnormal colonoscopy documented as of this [...] documented as of this encounter Care Teams Parimutuel Cashier Relationship Specialty Start Date End Date Artie Meehan MD [address] [place] [address] [place] [address] PCP - General Internal Medicine 10/26/17 06/03/21 Laura Mock MD, DMD 1 [facility] [address] [place] [address] [email or web address] PCP - General Internal Medicine 06/04/21 11/11/23 Pcp, Unknown PCP - General 11/12/23 11/16/23 Laura Mock MD, DMD 1 [facility] [address] [place] [address] [email or web address] PCP - General Internal Medicine 11/17/23 12/28/23 Pcp, Unknown PCP - General 02/28/24 03/04/24 Nicole Newell MD [address] [place] [address] PCP - General 03/05/24 05/17/24 Laura Mock MD, DMD [address] [address] [email or web address] PCP - General Internal Medicine 05/18/24 Artie Meehan MD [address] [place] [address] [place] [address] Internal Medicine 10/26/17 04/23/22 Rina Swenson MD [address] [place] [address] [place] [address] Psychiatry 07/09/17 Laura Mock MD, DMD 1 [facility] [address] [place] [address] [email or web address] Partners Attributed Provider 09/01/21 07/03/23 Laura Mock MD, DMD 1 [facility] [address] [place] [address] [place] [address] [email or web address] Insurance Assigned Provider 05/31/23 03/01/24 Jakob Bob MD 75 [place] [address] [email or web address] Cardiology 08/22/23 Jose Cruz MD [address] [place] [address], [address] [place] [address] [email or web address] Cardiology 08/22/23 Laura Mock MD, DMD [address] [place] [address] [address] [place] [address] [email or web address] Attributed Provider 09/01/21 07/03/23 [facility] [phone]. Consulting Provider 08/22/23 [facility] Connect 12/24/23 03/11/24 Cyril Morales [address] [place] [phone] Nurse Practitioner 02/27/24 documented as of this encounter Additional Source Comments The information contained in this document represents components of the legal health record. It is not the complete legal health record.[facility]
== END 2024-10-28 14:44 | disposition home or self-care (01) ==
PROVIDERS: PCP Internal Medicine; Visit Provider Internal Medicine Medical Oncology
DX: Z79.01 Long term (current) use of anticoagulants (principal)

== ENCOUNTER → 2024-10-28 14:01 | Outpatient (BNVA) | payer MEDICARE, SELFPAY | PROVIDERS: PCP Internal Medicine; Visit Provider Internal Medicine Medical Oncology | DX: Z51.81 Encounter for therapeutic drug level monitoring (principal); Z79.01 Long term (current) use of anticoagulants | CPT/HCPCS: 85610; 99211 ==

== ENCOUNTER 2024-11-25 12:53 | Outpatient (REF) | payer MEDICARE, SELFPAY ==
--- OUTSIDE RECORDS SUMMARY | 2024-11-25 14:19 | XMS_ITS | Patient Health Record ---
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
== END 2024-11-25 12:54 | disposition home or self-care (01) ==
LOC: HO.XRAY 12:53
PROVIDERS: PCP Internal Medicine; Visit Provider Internal Medicine
DX: Z95.2 Presence of prosthetic heart valve (principal); Z51.81 Encounter for therapeutic drug level monitoring; Z79.01 Long term (current) use of anticoagulants
CPT/HCPCS: 85610; 99211

== ENCOUNTER 2024-11-25 13:12 | Outpatient (AMB) | payer MEDICARE, SELFPAY ==
--- NOTE | 2024-11-25 14:05 | MHC.OFFVISCO ---
Intake Intake Visit Reasons: Anticoagulation Allergies latex Allergy (Intermediate, Verified 11/25/24 13:45) Rash Medication List - Last Reconciled 11/25/24 by Marjorie Suazo RN acetaminophen 500 mg PO Q6H PRN amoxicillin 2,000 mg (4 x 500 mg) PO ONCE 1 day ascorbate calcium (vitamin C) 1 g PO DAILY bupropion HCl XL (Wellbutrin XL) 300 mg PO QAM clonazepam 0.5 mg PO BID PRN cyanocobalamin (vitamin B-12) PO folic acid 0.8 mg PO DAILY lisinopril 10 mg PO BID warfarin See Protocol 4 mg on Mondays, Wednesdays and Fridays then 3 mg on Tuesdays, , Saturdays and Sundays 30 days Nursing Note INR 1.5 out of therapeutic range 2.0-3.0 Medications and supplements reviewed Patient status: Pt has been taking care of her daughter at home who has multiple health /neurological issues, she verbalized that she has busy of taking her daughter instead of herself, not eating usual diet. She has been drinking a new 'Purple tea She has only taken lovenox for procedures in the past. Pt discusses at great length with daughters concerns Medications or supplements: no other changes, she states she sometimes forgets her vitamins Diet: will avoids x 3 days, decrease or stop the purple tea, eat orange or reds to help raise the INR. Denies any signs and symptoms of bleeding or clotting or unusual bruising Bleeding, bruising, clotting discussed Nutritional guidance given: avoid greens x 3 days, eat orange and reds today Dose: 5mg today and tomorrow, 3mg sat and sun and recheck Friday F/U INR Date : 11/29/2024 ?? Patient verbalizing understanding of instructions given. This msg will be sent to PCP regardign pt status. 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
[2024-11-25 14:33] LABS: Prothrombin Time Whole Bld POC 18.4 sec (11.1-13.5); ~PT, ~INR - Anti Coag Clinic 1.5 (0.9-1.1)
--- OUTSIDE RECORDS SUMMARY | 2024-11-25 14:38 | XMS_ITS | Encounter Summary ---
Author Organization [facility] Address [facility] [employer] [address] [address] Phone Care Team Providers Care Casting Room Helper Name Role Phone Artie Meehan MD Unavailable Rina Swenson MD Unavailable Laura Mock MD, DMD Primary Car e Provider Laura Mock MD, DMD Unavailable Laura Mock MD, DMD Unavailable Jakob Bob MD Unavailable Jose Cruz MD Unavailable [phone] Laura Mock MD, DMD Unavailable Pcp, Unknown [...] Care Team (Late st Contact Info) Description 01/05/2025 11:00 AM EST Pre-Admission Testing [facility] 45 [facility] 2nd [place] [address] Irineo Ruff MD [address] [place] [address] [email or web address] 01/10/2025 Procedure Pass [facility] Endoscopy Department [address] [place] [address] 01/10/2025 7:30 AM EST Hospital Encounter [facility] Endoscopy Department [address] [place] [address] Irineo Ruff MD [address] [place] [address] [email or web address] 01/10/2025 7:30 AM EST - 01/10/2025 8:15 AM EST Surgery [facility] Endoscopy Department [address] [place] [address] Irineo Ruff MD [address] [place] [address] [email or web address] COLONOSCOPY 01/31/2025 1:00 PM EST Office Visit [facility] Cardiovascular Medicine 32 [facility], 5th Floor, [address] [place] [address] Karena Betancur MD [address] [address] [email or web address] Scheduled Procedures Name Priority Associated Diagnoses Date/Ti me COLONOSCOPY Abnormal colonoscopy 01/10/2025 7:30 AM EST documented as of this encounter Visit Diagnoses [...] documented as of this encounter Care Teams Casting Room Helper Relationship Specialty Start Date End Date Laura Mock MD, DMD [address] [address] [place] [address] [email or web address] PCP - General Internal Medicine 06/04/21 11/11/23 Pcp, Unknown PCP - General 11/12/23 11/16/23 Laura Mock MD, DMD [address] [address] [place] [address] [email or web address] PCP - General Internal Medicine 11/17/23 12/28/23 Pcp, Unknown PCP - General 02/28/24 03/04/24 Nicole Newell MD [address] [place] [address] PCP - General 03/05/24 05/17/24 Laura Mock MD, DMD [address] [address] [place] [address] [email or web address] PCP - General Internal Medicine 05/18/24 Artie Meehan MD [address] [place] [address] [place] [address] Internal Medicine 10/26/17 04/23/22 Rina Swenson MD [address] [place] [address] Ovi Barber [facility] [place] [address] Psychiatry 07/09/17 Laura Mock MD, DMD [address] [address] [email or web address] Attributed Provider 09/01/21 07/03/23 Laura Mock MD, DMD [address] [address] [email or web address] Insurance Assigned Provider 05/31/23 03/01/24 Jakob Bob MD [address] [place] [address] [email or web address] Cardiology 08/22/23 Jose Cruz MD [address] [place] [address], [facility] [address] [place] [address] Cardiology 08/22/23 Laura Mock MD, DMD [address] [address] [email or web address] Attributed Provider 09/01/21 07/03/23 [facility] [phone]. Consulting Provider 08/22/23 [facility] Connect 12/24/23 03/11/24 Cyril Morales [address] [place] [phone] Nurse Practitioner 02/27/24 documented as of this encounter Additional Source Comments The information contained in this document represents components of the legal health record. It is not the complete legal health record.[facility]
--- OUTSIDE RECORDS SUMMARY | 2024-11-25 14:38 | XMS_ITS | Encounter Summary ---
Author Organization [facility] Address [facility] [employer] [facility] [address] [place] [address] Phone Care Team Providers Care Engineering Documentation Specialist Name Role Phone Artie Meehan MD Primary Care Provider Artie Meehan MD Unavailable [phone] Rina Swenson MD Unavailable Laura Mock MD, [...] Info) Description 11/15/2020 Transcribe Orders Virtual Department [address] [place] [address] Artie Meehan MD [address] [place] [address] [place] [address] Asymptomatic menopausal state (Primary Dx); Age-related osteoporosis [...] Department Care Team (Late Contact Info) Description 01/05/2025 11:00 AM EST Pre-Admission Testing [facility] [address] [place] [address] 2nd [place] [address] Irineo Ruff MD [address] [place] [address] [email or web address]@[email or web address] 01/10/2025 Procedure Pass [facility] Endoscopy Department [address] [place] [address] 01/10/2025 7:30 AM EST Hospital Encounter [facility] Endoscopy Department [address] [place] [address] Irineo Ruff MD [address] [place] [address] [email or web address]@[email or web address] 01/10/2025 7:30 AM EST - 01/10/2025 8:15 AM EST Surgery [facility] Endoscopy Department [address] [place] [address] Irineo Ruff MD [address] [place] [address] [email or web address]@[email or web address] [email or web address] 01/31/2025 1:00 PM EST Office [place] [facility] Cardi[place] Medicine 32 [facility], 5th Floor, [address] [place] [address] Karena Betancur MD 55 [facility] [address] [place] [address] [email or web address] Scheduled Procedures Name Priority Associated Diagnoses Date/Ti me COLONOSCOPY Abnormal colonoscopy 01/10/2025 7:30 AM EST documented as of this encounter Results * [...] bone mineral density was calculated at 0.409 gm/ky3kfbg a T- score of -4 falling within [...] lumbar spine and bilateral hip osteoporosis. Artie TAVERAS BD BONE DENSITY DEXA Final Result documented in this encounter Visit Diagnoses Diagnosis Asymptomatic menopausal state- Primary Age-related osteoporosis without current pathological fracture Asymptomatic menopausal state Age-related osteoporosis without current pathological fracture Abnormal colonoscopy documented in this encounter Additional Health Concerns Infection Onset Date Last Indicated Resolved Time CoV-Presumed 03/23/2022 03/23/2022 04/13/2022 1:23 AM EST CoV-Risk 11/12/2023 11/12/2023 11/12/2023 5:12 PM EDT COVID-19 11/12/2023 11/12/2023 12/03/2023 1:21 AM EDT documented as of this encounter Care Teams Engineering Documentation Specialist Relationship Specialty Start Date End Date Artie Meehan MD [address] [place] [address] [place] [address] PCP - General Internal Medicine 10/26/17 06/03/21 Laura Mock MD, DMD [address] [address] [email or web address] du PCP - General Internal Medicine 06/04/21 11/11/23 Pcp, Unknown PCP - General 11/12/23 11/16/23 Laura Mock MD, DMD [address] [address] [email or web address] du PCP - General Internal Medicine 11/17/23 12/28/23 Pcp, Unknown PCP - General 02/28/24 03/04/24 Nicole Newell MD [address] [place] [address] PCP - General 03/05/24 05/17/24 Laura Mock MD, DMD [address] [address] [email or web address] du PCP - General Internal Medicine 05/18/24 Artie Meehan MD [address] [place] [address] [place] [address] Internal Medicine 10/26/17 04/23/22 Rina Swenson MD [address] [place] [address] [place] [address] Psychiatry 07/09/17 Laura Mock MD, DMD [address] [address] [email or web address] Partners Attributed Provider 09/01/21 07/03/23 Laura Mock MD, DMD [address] [address] [email or web address] du Insurance Assigned Provider 05/31/23 03/01/24 Jakob Bob MD [address] [place] [address] [email or web address] Cardiology 08/22/23 Jose Cruz MD [address] [place] [address], [address] [address] [email or web address] Cardiology 08/22/23 Laura Mock MD, DMD [address] [address] [email or web address] Partners Attributed Provider 09/01/21 07/03/23 [facility] [phone]. Consulting Provider 08/22/23 [facility] Connect 12/24/23 03/11/24 Cyril Morales [address] [place] [address] Nurse Practitioner 02/27/24 documented as of this encounter Additional Source Comments The information contained in this document represents components of the legal health record. It is not the complete legal health record.[facility]
--- OUTSIDE RECORDS SUMMARY | 2024-11-25 14:38 | XMS_ITS | Encounter Summary ---
Author Organization [facility] Address [address] [place] [address] [place] [address] Phone Care Team Providers Care Tradeshow Worker Name Role Phone Rina Swenson MD Unavailable Laura Mock MD, DMD Primary Car e Provider Laura Mock MD, DMD Unavailable Laura Mock MD, DMD Unavailable Jakob Bob MD Unavailable [phone] Jose Cruz MD Unavailable Laura Mock MD, DMD Unavailable Pcp, Unknown Primary Care Provider UnavailLaura Ascencio MD, DMD Primary Car e Provider Pcp, Unknown Primary Care Provider UnavailNicole Arguello MD Primary Care Provide r Laura Mock MD, DMD Primary Car e Provider Encounter Details Date Type Department Care Team (Late st Contact Info) Description 01/21/2023 Anti-coag visit [facility] Anticoagulation Clinic [address] [place] [address] Purvi Lawler, PharmD [address] [place] [address] [email or web address] Social History Tobacco Use Types [...] Description 01/05/2025 11:00 AM EST Pre-Admission Testing [facility] 45 [facility] 2nd [place] [address] Irineo Ruff MD [address] [place] [address] [place] [address] [email or web address] 01/10/2025 Procedure Pass [facility] Endoscopy Department [address] [place] [address] 01/10/2025 7:30 AM EST Hospital Encounter [facility] Endoscopy Department [address] [place] [address] Irineo Ruff MD [address] [place] [address] [email or web address] 01/10/2025 7:30 AM EST - 01/10/2025 8:15 AM EST Surgery [facility] Endoscopy Department [address] [place] [address] Irineo Ruff MD [address] [facility] [place] [address] [email or web address] COLONOSCOPY 01/31/2025 1:00 PM EST Office Visit [facility] Cardiovascular Medicine 32 [facility], 5th Floor, [address] [place] [address] Karena Betancur MD 55 [facility] [address] [place] [address] [email or web address] Scheduled Procedures Name Priority Associated [...] documented as of this encounter Care Teams Tradeshow Worker Relationship Specialty Start Date End Date Laura Mock MD, DMD 1 [facility] [address] [place] [address] [email or web address] PCP - General Internal Medicine 06/04/21 11/11/23 Pcp, Unknown PCP - General 11/12/23 11/16/23 Laura Mock MD, DMD 1 [facility] [address] [place] [address] [email or web address] du PCP - General Internal Medicine 11/17/23 12/28/23 Pcp, Unknown PCP - General 02/28/24 03/04/24 [place] [address] [place] [address] PCP - General 03/05/24 05/17/24 Laura Mock MD, DMD [address] [address] [email or web address] du PCP - General Internal Medicine 05/18/24 Rina Swenson MD Psychiatry 07/09/17 Laura Mock MD, DMD [address] [address] [email or web address] du Partners Attributed Provider 09/01/21 07/03/23 Laura Mock MD, DMD [address] [address] [email or web address] du Insurance Assigned Provider 05/31/23 03/01/24 Jakob Bob MD [address] [place] [address] [place] [address] [email or web address] Cardiology 08/22/23 Jose Cruz MD [address] [place] [address], [facility] [address] [place] [address] Cardiology 08/22/23 Laura Mock MD, DMD 1 [facility] [address] [place] [address] [email or web address] Partners Attributed Provider 09/01/21 07/03/23 [facility] [phone]. Consulting Provider 08/22/23 [facility] Connect 12/24/23 03/11/24 Cyril Morales [facility] [place] [address] Nurse Practitioner 02/27/24 documented as of this encounter Additional Source Comments The information contained in this document represents components of the legal health record. It is not the complete legal health record.[facility]
--- OUTSIDE RECORDS SUMMARY | 2024-11-25 14:38 | XMS_ITS | Encounter Summary ---
Author Organization [facility] Address [facility] [employer] [address] [address] Phone Care Team Providers Care Field Sales Consultant Name Role Phone Artie Meehan MD Unavailable Rina Swenson MD Unavailable Laura Mock MD, DMD Primary Car e Provider Laura Mock MD, DMD Unavailable Laura Mock MD, DMD Unavailable Jakbo Bob MD Unavailable Jose Cruz MD Unavailable [phone] Laura Mock MD, DMD Unavailable Pcp, Unknown [...] Description 01/05/2025 11:00 AM EST Pre-Admission Testing [facility] 45 [facility] 2nd [place] [address] Irineo Ruff MD [address] [place] [address] [email or web address] 01/10/2025 Procedure Pass [facility] Endoscopy Department [address] [place] [address] 01/10/2025 7:30 AM EST Hospital Encounter [facility] Endoscopy Department [address] [place] [address] Irineo Ruff MD [address] [place] [address] [email or web address] 01/10/2025 7:30 AM EST - 01/10/2025 8:15 AM EST Surgery [facility] Endoscopy Department [address] [place] [address] Irineo Ruff MD [address] [place] [address] [email or web address]@[email or web address] COLONOSCOPY 01/31/2025 1:00 PM EST Office [facility] [place] [place] 32 [facility], 5th Floor, [address] [place] [address] Karena Betancur MD [address] [address] [email or web address] Scheduled Procedures Name Priority Associated [...] as of this encounter Care Teams Field Sales Consultant Relationship Specialty Start Date End Date Laura Mock MD, DMD [address] [address] [place] [address] [email or web address] PCP - General Internal Medicine 06/04/21 11/11/23 Pcp, Unknown PCP - General 11/12/23 11/16/23 Laura Mock MD, DMD [address] [address] [place] [address] [email or web address] du PCP - General Internal Medicine 11/17/23 12/28/23 Pcp, Unknown PCP - General 02/28/24 03/04/24 Nicole Newell MD [address] [place] [address] PCP - General 03/05/24 05/17/24 Laura Mock MD, DMD [address] [address] [place] [address] [email or web address] du PCP - General Internal Medicine 05/18/24 Artie Mehean MD [address] [place] [address] [place] [address] Internal Medicine 10/26/17 04/23/22 Rina Swenson MD [address] [place] [address] Ovi Barber [place] [address] Psychiatry 07/09/17 Laura Mock MD, DMD [address] [address] [email or web address] Partners Attributed Provider 09/01/21 07/03/23 Laura Mock MD, DMD [address] [address] [email or web address] du Insurance Assigned Provider 05/31/23 03/01/24 Jakob Bob MD [address] [place] [address] [email or web address] Cardiology 08/22/23 Jose Cruz MD [address] [place] [address], [facility] [address] [place] [address] Cardiology 08/22/23 Laura Mock MD, DMD [address] [address] [email or web address] Partners Attributed Provider 09/01/21 07/03/23 [facility] [phone]. Consulting Provider 08/22/23 [facility] Connect 12/24/23 03/11/24 Cyril Morales [address] [place] [address] Nurse Practitioner 02/27/24 documented as of this encounter Additional Source Comments The information contained in this document represents components of the legal health record. It is not the complete legal health record.[facility]
--- OUTSIDE RECORDS SUMMARY | 2024-11-25 14:38 | XMS_ITS | Encounter Summary ---
Author Organization [facility] Address [facility] [employer] [address] [address] Phone Care Team Providers Care Trimmer Machine Name Role Phone Artie Meehan MD Unavailable Rina Swenson MD Unavailable [phone] Laura Mock MD, DMD Primary Car e Provider Laura Mock MD, DMD Unavailable Laura Mock MD, DMD Unavailable Jakob oBb MD Unavailable [phone] Jose Cruz MD Unavailable [phone] Laura Mock MD, DMD Unavailable Pcp, Unknown [...] Description 01/05/2025 11:00 AM EST Pre-Admission Testing [facility] 45 [facility] 2nd [place] [address] Irineo Ruff MD [address] [place] [address] [email or web address] 01/10/2025 Procedure Pass [facility] Endoscopy Department [address] [place] [address] 01/10/2025 7:30 AM EST Hospital Encounter [facility] Endoscopy Department [address] [place] [address] Irineo Ruff MD [address] [place] [address] [email or web address]@[email or web address] 01/10/2025 7:30 AM EST - 01/10/2025 8:15 AM EST Surgery [facility] Endoscopy Department [address] [place] [address] Irineo Ruff MD [address] [place] [address] [email or web address] COLONOSCOPY 01/31/2025 1:00 PM EST Office Visit [facility] Cardiovascular Medicine 32 [facility], 5th Floor, [address] [place] [address] Karena Betancur MD [address] [address] [email or web address] Scheduled Procedures Name Priority Associated [...] documented as of this encounter Care Teams Trimmer Machine Relationship Specialty Start Date End Date Laura Mock MD, DMD [address] [place] [address] [email or web address] PCP - General Internal Medicine 06/04/21 11/11/23 Pcp, Unknown PCP - General 11/12/23 11/16/23 Laura Mock MD, DMD [address] [place] [address] [email or web address] du PCP - General Internal Medicine 11/17/23 12/28/23 Pcp, Unknown PCP - General 02/28/24 03/04/24 Nicole Newell MD [address] [place] [address] PCP - General 03/05/24 05/17/24 Laura Mock MD, DMD 1 [address] [place] [address] [email or web address] du PCP - General Internal Medicine 05/18/24 Artie Meehan MD [address] [place] [address] Dr [place] [address] Internal Medicine 10/26/17 04/23/22 Rina Swenson MD [address] [place] [address] [place] [address] Psychiatry 07/09/17 Laura Mock MD, DMD [address] [address] [email or web address] Partners Attributed Provider 09/01/21 07/03/23 Laura Mock MD, DMD [address] [address] [email or web address] du Insurance Assigned Provider 05/31/23 03/01/24 Jakob Bob MD [address] [place] [address] [email or web address] Cardiology 08/22/23 Jose Cruz MD [address] [place] [address] Cardiology 08/22/23 Laura Mock MD, DMD [address] [address] [email or web address] du Partners Attributed Provider 09/01/21 07/03/23 [facility] [phone]. Consulting Provider 08/22/23 CAROLANN GREWAL Connect 12/24/23 03/11/24 Cyril Morales [address] [place] [address] Nurse Practitioner 02/27/24 documented as of this encounter Additional Source Comments The information contained in this document represents components of the legal health record. It is not the complete legal health record.[facility]
--- OUTSIDE RECORDS SUMMARY | 2024-11-25 14:38 | XMS_ITS | Encounter Summary ---
Author Organization [facility] Address [facility] [employer] [facility] [address] [place] [address] Phone Care Team Providers Care Supervisor Cigar Making Hand Name Role Phone Artie Meehan MD Unavailable [...] st Contact Info) Description 02/18/2022 Anti-coag visit [facility] Anticoagulation Clinic [address] [place] [address] Rony Amaro, [facility] [address] [address] [email or web address] Social History Tobacco Use Types Packs/Day Years [...] Description 01/05/2025 11:00 AM EST Pre-Admission Testing [address] [address] Irineo Ruff MD [address] [place] [address] [place] [address] [email or web address] 01/10/2025 Procedure Pass [facility] Endoscopy Department [address] [place] [address] 01/10/2025 7:30 AM EST Hospital Encounter [facility] Endoscopy Department [address] [place] [address] Irineo Ruff MD [address] [place] [address] [email or web address] 01/10/2025 7:30 AM EST - 01/10/2025 8:15 AM EST Surgery [facility] Endoscopy Department [address] [place] [address] Irieno Ruff MD [address] [place] [address] [place] [address] [email or web address] [email or web address] 01/31/2025 1:00 PM EST Office Visit [facility] Cardiovascular Medicine 32 [facility], 5th Floor, [address] [place] [address] Karena Betancur MD 55 [facility] [address] [place] [address] [email or web address] Scheduled Procedures Name Priority Associated [...] as of this encounter Care Teams Supervisor Cigar Making Hand Relationship Specialty Start Date End Date Laura Mock MD, DMD [address] [address] [email or web address] PCP - General Internal Medicine 06/04/21 11/11/23 Pcp, Unknown PCP - General 11/12/23 11/16/23 Laura Mock MD, DMD [address] [address] [email or web address] PCP - General Internal Medicine 11/17/23 12/28/23 Pcp, Unknown PCP - General 02/28/24 03/04/24 [place] [address] [address] PCP - General 03/05/24 05/17/24 Laura Mock MD, DMD [address] [address] [email or web address] PCP - General Internal Medicine 05/18/24 Artie Meehan MD [address] [place] [address] [place] [address] Internal Medicine 10/26/17 04/23/22 Rina Swenson MD [address] [place] [address] [place] [address] Psychiatry 07/09/17 Laura Mock MD, DMD [address] [address] [email or web address] Partners Attributed Provider 09/01/21 07/03/23 Laura Mock MD, DMD [address] [address] [email or web address] du Insurance Assigned Provider 05/31/23 03/01/24 Jakob Bob MD [address] [place], [place] [address] [place] [address] [email or web address] Cardiology 08/22/23 Jose Cruz MD [address] [place] [address], [facility] 301 [place] [address] Cardiology 08/22/23 Laura Mock MD, DMD 1 [facility] [address] [place] [address] [email or web address] Partners Attributed Provider 09/01/21 07/03/23 [facility] [phone]. Consulting Provider 08/22/23 [facility], [facility] Connect 12/24/23 03/11/24 Cyril Morales [address] [place] [address] Nurse Practitioner 02/27/24 documented as of this encounter Additional Source Comments The information contained in this document represents components of the legal health record. It is not the complete legal health record.[facility]
--- OUTSIDE RECORDS SUMMARY | 2024-11-25 14:38 | XMS_ITS | Encounter Summary ---
Author Organization [facility] Address [facility] [employer] [facility] [address] [place] [address] Phone Care Team Providers Care Registered Nurse Fetal Name Role Phone Artie Meehan MD Unavailable Rina Swenson MD Unavailable [phone] Laura Mock MD, DMD Primary Car e Provider Laura Mock MD, DMD Unavailable Laura Mock MD, DMD Unavailable Jakob Bob MD Unavailable Jose Cruz MD Unavailable [phone] Laura Mock MD, DMD Unavailable Pcp, Unknown Primary Care Provider UnavailLaura Ascencio MD, DMD Primary Car e Provider Pcp, Unknown Primary Care Provider UnavailNicole Arguello MD Primary Care Provide r Laura Mock MD, DMD Primary Car e Provider Encounter Details Date Type Department Care Team (Late st Contact Info) Description 10/19/2021 Anti-coag visit [facility] Anticoagulation Clinic [address] [place] [address] Melvin Stewart, [facility] [address] [place] [address] [email or web address] Social History Tobacco Use Types Packs/Day [...] Description 01/05/2025 11:00 AM EST Pre-Admission Testing [address] [address] Irineo Ruff MD [address] [place] [address] [email or web address] 01/10/2025 Procedure Pass [facility] Endoscopy Department [address] [place] [address] 01/10/2025 7:30 AM EST Hospital Encounter [facility] Endoscopy Department [address] [place] [address] Irineo Ruff MD [address] [place] [address] [email or web address] 01/10/2025 7:30 AM EST - 01/10/2025 8:15 AM EST Surgery [facility] Endoscopy Department [address] [place] [address] Irineo Ruff MD [address] [place] [address] [email or web address] COLONOSCOPY 01/31/2025 1:00 PM EST Office [place] [facility] [place] [address] [facility], 5th Floor, [address] [place] [address] Karena Betancur MD [address] [facility] [address] [place] [address] [email or web address] Scheduled Procedures Name Priority Associated Diagnoses Date/Ti me COLONOSCOPY Abnormal colonoscopy 01/10/2025 7:30 AM EST documented as of this encounter Visit Diagnoses Not on filedocumented in this encounter Additional Health Concerns Infection Onset Date Last Indicated Resolved Time CoV-Presumed 03/23/2022 03/23/2022 04/13/2022 1:23 AM EST CoV-Risk 11/12/2023 11/12/2023 11/12/2023 5:1 2 PM EDT COVID-19 11/12/2023 11/12/2023 12/03/2023 1:21 AM EDT Assessment Noted Time PHQ-2 Depression Total Score: 2 08/03/19 2:01 PM EDT documented as of this encounter Care Teams Registered Nurse Fetal Relationship Specialty Start Date End Date Laura Mock MD, DMD [address] [address] [email or web address] PCP - General Internal Medicine 06/04/21 11/11/23 Pcp, Unknown PCP - General 11/12/23 11/16/23 Laura Mock MD, DMD 1 [facility] [address] [place] [address] [email or web address] PCP - General Internal Medicine 11/17/23 12/28/23 Pcp, Unknown PCP - General 02/28/24 03/04/24 Nicole Newell MD [address] [place] [address] [phone] PCP - General 03/05/24 05/17/24 Laura Mock MD, DMD [address] [address] [email or web address] PCP - General Internal Medicine 05/18/24 Artie Meehan MD [address] [place] [address] [place] [address] Internal Medicine 10/26/17 04/23/22 Rina Swenson MD [address] [place] [address] [place] [address] Psychiatry 07/09/17 Laura Mock MD, DMD [address] [address] [email or web address] Partners Attributed Provider 09/01/21 07/03/23 Laura Mock MD, DMD [address] [address] [email or web address] Insurance Assigned Provider 05/31/23 03/01/24 Jakob Bob MD [address] [place] [address] [place] [address] [email or web address] Cardiology 08/22/23 Jose Cruz MD [address] [place] [address], [address] [address] Cardiology 08/22/23 Laura Mock MD, DMD 1 [facility] [address] [place] [address] [email or web address] Partners Attributed Provider 09/01/21 07/03/23 [facility] [phone]. Consulting Provider 08/22/23 [facility] Connect 12/24/23 03/11/24 Cyril Morales [address] [place] [address] Nurse Practitioner 02/27/24 documented as of this encounter Additional Source Comments The information contained in this document represents components of the legal health record. It is not the complete legal health record.[facility]
--- OUTSIDE RECORDS SUMMARY | 2024-11-25 14:38 | XMS_ITS | Encounter Summary ---
Author Organization [facility] Address [facility] [employer] [facility] [address] [place] [address] Phone Care Team Providers Care Associate Professor Of Theatre Name Role Phone Artie Meehan MD Unavailable [...] st Contact Info) Description 04/05/2022 Anti-coag visit [facility] Anticoagulation Clinic [address] [place] [address] Melvin Stewart, [facility] [address] [place] [address] [email or web address] Social History Tobacco Use Types Packs/Day Years [...] Description 01/05/2025 11:00 AM EST Pre-Admission Testing [address] [address] Irineo Ruff MD [address] [place] [address] [email or web address] 01/10/2025 Procedure Pass [facility] Endoscopy Department [address] [place] [address] 01/10/2025 7:30 AM EST Hospital Encounter [facility] Endoscopy Department [address] [place] [address] Irineo Ruff MD [address] [place] [address] [email or web address] 01/10/2025 7:30 AM EST - 01/10/2025 8:15 AM EST Surgery [facility] Endoscopy Department [address] [place] [address] Irineo Ruff MD [address] [place] [address] [email or web address] COLONOSCOPY 01/31/2025 1:00 PM EST Office Visit [facility] Cardiovascular Medicine [address] [facility], 5th Floor, [address] [place] [address] Karena Betancur MD [address] [facility] [address] [place] [address] [email or web address] Scheduled Procedures Name Priority Associated [...] documented as of this encounter Care Teams Associate Professor Of Theatre Relationship Specialty Start Date End Date Laura Mock MD, DMD [address] [address] [email or web address] PCP - General Internal Medicine 06/04/21 11/11/23 Pcp, Unknown PCP - General 11/12/23 11/16/23 Laura Mock MD, DMD [address] [address] [email or web address] PCP - General Internal Medicine 11/17/23 12/28/23 Pcp, Unknown PCP - General 02/28/24 03/04/24 [place] [address] [address] PCP - General 03/05/24 05/17/24 Laura Mock MD, DMD [address] [address] [email or web address] PCP - General Internal Medicine 05/18/24 Artie Meehan MD [address] [place] [address] [place] [address] Internal Medicine 10/26/17 04/23/22 Rina Swenson MD [address] [place] [address] Dr [address] [place] [address] Psychiatry 07/09/17 Laura Mock MD, DMD [address] [address] [email or web address] Partners Attributed Provider 09/01/21 07/03/23 Laura Mock MD, DMD [address] [address] [email or web address] Insurance Assigned Provider 05/31/23 03/01/24 Jakob Bob MD [address] [place] [address] [place] [address] [email or web address] Cardiology 08/22/23 Jose Cruz MD [address] [place] [address], [facility] [address] [place] [address] Cardiology 08/22/23 Laura Mock MD, DMD 1 [place] [address] [email or web address] Partners Attributed Provider 09/01/21 07/03/23 [facility] [phone]. Consulting Provider 08/22/23 [facility] Connect 12/24/23 03/11/24 Cyril Morales [address] [place] [address] Nurse Practitioner 02/27/24 documented as of this encounter Additional Source Comments The information contained in this document represents components of the legal health record. It is not the complete legal health record.[facility]
--- OUTSIDE RECORDS SUMMARY | 2024-11-25 14:38 | XMS_ITS | Encounter Summary ---
Author Organization [facility] Address [facility] [address] [place] [address] Phone Care Team Providers Care Subway Train Operator Name Role Phone Artie Meehan MD Primary Care Provider Artie Meehan MD Unavailable Rina Swenson MD Unavailable Laura Mock MD, DMD Primary Car e Provider Laura Mock MD, DMD Unavailable Laura Mock MD, DMD Unavailable Jakob Bob MD Unavailable [phone] Jose Cruz MD Unavailable Laura Mock MD, DMD Unavailable Pcp, Unknown Primary Care Provider UnavailLaura Ascencio MD, DMD Primary Car e Provider Pcp, Unknown Primary Care Provider UnavailNicole Arguello MD Primary Care Provide r Laura Mock MD, DMD Primary Car e Provider Encounter Details Date Type Department Care Team (Late st Contact Info) Description 11/07/2020 Procedure Pass [facility], [address] [address] Social History Tobacco Use Types Packs/Day Years [...] Description 01/05/2025 11:00 AM EST Pre-Admission Testing [address] [place] [address] Irineo Ruff MD [address] [place] [address] [place] [address] [email or web address] 01/10/2025 Procedure Pass [facility] Endoscopy Department [address] [place] [address] 01/10/2025 7:30 AM EST Hospital Encounter [facility] Endoscopy Department [address] [place] [address] Irineo Ruff MD [address] [place] [address] [place] [address] [email or web address] 01/10/2025 7:30 AM EST - 01/10/2025 8:15 AM EST Surgery [facility] Endoscopy Department [address] [place] [address] Irineo Ruff MD [address] [place] [address] [email or web address] [email or web address] 01/31/2025 1:00 PM EST Office [place] [facility] [place] [address] [place] [address], 5th Floor, [address] [place] [address] Karena Betancur MD [address] [place] [address] [email or web address] Scheduled Procedures Name Priority Associated Diagnoses Date/Ti [...] documented as of this encounter Care Teams Subway Train Operator Relationship Specialty Start Date End Date Artie Meehan MD [address] [place] [address] PCP - General Internal Medicine 10/26/17 06/03/21 Laura Mock MD, DMD [address] [address] [email or web address] PCP - General Internal Medicine 06/04/21 11/11/23 Pcp, Unknown PCP - General 11/12/23 11/16/23 Laura Mock MD, DMD [address] [address] [email or web address] PCP - General Internal Medicine 11/17/23 12/28/23 Pcp, Unknown PCP - General 02/28/24 03/04/24 [place] [address] [place] [address] PCP - General 03/05/24 05/17/24 Laura Mock MD, DMD [address] [address] [email or web address] PCP - General Internal Medicine 05/18/24 Artie Meehan MD [address] [place] [address] [address] [place] [address] Internal Medicine 10/26/17 04/23/22 Rina Swenson MD [address] [place] [address] Dr [address] [place] [address] Psychiatry 07/09/17 Laura Mock MD, DMD [address] [address] [email or web address] Partners Attributed Provider 09/01/21 07/03/23 Laura Mock MD, DMD [address] [address] [email or web address] Insurance Assigned Provider 05/31/23 03/01/24 Jakob Bob MD [address] [place], [place] [address] [place] [address] [email or web address] Cardiology 08/22/23 Jose Cruz MD [address] [place] [address], [address] [place] [address] Cardiology 08/22/23 Laura Mock MD, DMD 1 [facility] [address] [place] [address] [email or web address] Attributed Provider 09/01/21 07/03/23 [facility] [phone]. Consulting Provider 08/22/23 [facility] Connect 12/24/23 03/11/24 Cyril Morales [address] [place] [phone] Nurse Practitioner 02/27/24 documented as of this encounter Additional Source Comments The information contained in this document represents components of the legal health record. It is not the complete legal health record.[facility]
--- OUTSIDE RECORDS SUMMARY | 2024-11-25 14:38 | XMS_ITS | Encounter Summary ---
Author Organization [facility] Address [address] [place] [address] Phone Care Team Providers Care Burlesque Dancer Name Role Phone Artie Meehan MD Unavailable Rina Swenson MD Unavailable [phone] Laura Mock MD, DMD Primary Car e Provider Laura Mock MD, DMD Unavailable Laura Mock MD, DMD Unavailable Jakob Bob MD Unavailable Jose Cruz MD Unavailable [phone] Laura Mock MD, DMD Unavailable Pcp, Unknown Primary Care Provider UnavailLaura Ascencio MD, DMD Primary Car e Provider Pcp, Unknown Primary Care Provider UnavailNicole Arguello MD Primary Care Provide r Laura Mock MD, DMD Primary Car e Provider Encounter Details Date Type Department Care Team (Late st Contact Info) Description 01/16/2022 Anti-coag visit [facility] Marek Elias, PharmD [address] [place] [address] [email or web address] Social History Tobacco Use Types Packs/Day [...] Upcoming Encounters Date Type Department Care Team ([facility] st Contact Info) Description 01/05/2025 11:00 AM EST Pre-Admission Testing [address] [address] Irineo Ruff MD [address] [place] [address] [email or web address] 01/10/2025 Procedure Pass [facility] Endoscopy Department [address] [place] [address] 01/10/2025 7:30 AM EST Hospital Encounter [facility] Endoscopy Department [address] [place] [address] Irineo Ruff MD [address] [place] [address] [email or web address] 01/10/2025 7:30 AM EST - 01/10/2025 8:15 AM EST Surgery [facility] Endoscopy Department [address] [place] [address] Irineo Ruff MD [address] [place] [address] [email or web address] COLONOSCOPY 01/31/2025 1:00 PM EST Office [place] [facility] [place] [address] [facility], 5th Floor, [address] [place] [address] Karena Betancur MD [address] [facility] [address] [place] [address] [email or web address] Scheduled Procedures Name Priority Associated [...] documented as of this encounter Care Teams Burlesque Dancer Relationship Specialty Start Date End Date Laura Mock MD, DMD [address] [address] [email or web address] PCP - General Internal Medicine 06/04/21 11/11/23 Pcp, Unknown PCP - General 11/12/23 11/16/23 Laura Mock MD, DMD 1 [facility] [address] [place] [address] [email or web address] du PCP - General Internal Medicine 11/17/23 12/28/23 Pcp, Unknown PCP - General 02/28/24 03/04/24 Nicole Newell MD [address] [place] [address] PCP - General 03/05/24 05/17/24 Laura Mock MD, DMD [address] [address] [email or web address] PCP - General Internal Medicine 05/18/24 Artie Meehan MD [address] [place] [address] [place] [address] Internal Medicine 10/26/17 04/23/22 Rina Swenson MD [address] [place] [address] [place] [address] Psychiatry 07/09/17 Laura Mock MD, DMD [address] [address] [email or web address] Partners Attributed Provider 09/01/21 07/03/23 Laura Mock MD, DMD [address] [address] [email or web address] du Insurance Assigned Provider 05/31/23 03/01/24 Jakob Bob MD [address] [place] [address] [place] [address] [email or web address] Cardiology 08/22/23 Jose Cruz MD [address] [place] [address], [address] [address] Cardiology 08/22/23 Laura Mock MD, DMD 1 [facility] [address] [place] [address] [email or web address] Partners Attributed Provider 09/01/21 07/03/23 [facility] [phone]. Consulting Provider 08/22/23 [facility] Connect 12/24/23 03/11/24 Cyril Morales [address] [place] [address] Nurse Practitioner 02/27/24 documented as of this encounter Additional Source Comments The information contained in this document represents components of the legal health record. It is not the complete legal health record.[facility]
--- OUTSIDE RECORDS SUMMARY | 2024-11-25 14:38 | XMS_ITS | Encounter Summary ---
Author Organization [facility] Address [facility] [address] [place] [address] Phone Care Team Providers Care Siebel Developer Name Role Phone Artie Meehan MD Primary Care Provider Artie Meehan MD Unavailable [phone] Rina Swenson MD Unavailable Laura Mock MD, [...] Info) Description 07/06/2020 Procedure Pass [facility] [address] [place] [address] Social History Tobacco Use Types Packs/Day Years [...] Description 01/05/2025 11:00 AM EST Pre-Admission Testing [address] [place] [address] Irineo Ruff MD [address] [place] [address] [place] [address] [email or web address] 01/10/2025 Procedure Pass [facility] Endoscopy Department [address] [place] [address] 01/10/2025 7:30 AM EST Hospital Encounter [facility] Endoscopy Department [address] [place] [address] Irineo Ruff MD [address] [place] [address] [email or web address] 01/10/2025 7:30 AM EST - 01/10/2025 8:15 AM EST Surgery [facility] Endoscopy Department [address] [place] [address] Irineo Ruff MD [address] [place] [address] [email or web address] COLONOSCOPY 01/31/2025 1:00 PM EST Office [place] [facility] Cardi[place] Medicine [address] [place] [address], 5th Floor, [address] [place] [address] Karena Betancur MD [address] [facility] [address] [place] [address] [email or web address] Scheduled Procedures Name Priority Associated Diagnoses Date/Ti [...] documented as of this encounter Care Teams Siebel Developer Relationship Specialty Start Date End Date Artie Meehan MD [address] [place] [address] PCP - General Internal Medicine 10/26/17 06/03/21 Laura Mock MD, DMD [address] [address] [email or web address] PCP - General Internal Medicine 06/04/21 11/11/23 Pcp, Unknown PCP - General 11/12/23 11/16/23 Laura Mock MD, DMD [address] [address] [email or web address] PCP - General Internal Medicine 11/17/23 12/28/23 Pcp, Unknown PCP - General 02/28/24 03/04/24 [place] Newell [place] [address] [place] [address] PCP - General 03/05/24 05/17/24 Laura Mock MD, DMD [address] [address] [email or web address] PCP - General Internal Medicine 05/18/24 Artie Meehan MD [address] [place] [address] Dr [address] [place] [address] Internal Medicine 10/26/17 04/23/22 Rina Swenson MD [address] [place] [address] Dr Dior [address] [place] [address] Psychiatry 07/09/17 Laura Mock MD, DMD [address] [address] [email or web address] Partners Attributed Provider 09/01/21 07/03/23 Laura Mock MD, DMD [address] [address] [email or web address] Insurance Assigned Provider 05/31/23 03/01/24 Jakob Bob MD [address] [place] [address] [address] [place] [address] [email or web address] Cardiology 08/22/23 Jose Cruz MD [address] [place] [address], [address] [place] [address] Cardiology 08/22/23 Laura Mock MD, DMD 1 [facility] [address] [place] [address] [email or web address] Partners Attributed Provider 09/01/21 07/03/23 [facility] [phone]. Consulting Provider 08/22/23 [facility] 12/24/23 03/11/24 Cyril Morales [facility] [place] [address] Nurse Practitioner 02/27/24 documented as of this encounter Additional Source Comments The information contained in this document represents components of the legal health record. It is not the complete legal health record.[facility]
--- OUTSIDE RECORDS SUMMARY | 2024-11-25 14:38 | XMS_ITS | Encounter Summary ---
Author Organization [facility] Address [facility] [facility] [address] [place] [address] Phone Care Team Providers Care Monitoring And Evaluation Advisor Name Role Phone Artie Meehan MD Primary Care Provider Artie Meehan MD Unavailable [phone] Rina Swenson MD Unavailable Laura Mock MD, [...] Onset Date Comments Question regarding Symtoms 12/09/2017 Formandriy r pt. of Dr. Moyer ptKayleen is Anxious Encounter Details Date Type Department Care Team (Late st Contact Info) Description 12/09/2017 Telephone [facility] Urology [address] [facility] ASB2-3 [place] [address] Maureen De Los [email or web address] Question regarding Symtoms (Former pt. of Dr. [...] Description 01/05/2025 11:00 AM EST [facility] [address] [facility] 2nd [place] [address] Irineo Ruff MD [address] [place] [address] [email or web address] 01/10/2025 Procedure Pass [facility] Endoscopy Department [address] [place] [address] 01/10/2025 7:30 AM EST Hospital Encounter [facility] Endoscopy Department [address] [place] [address] Irineo Ruff MD [address] [place] [address] [email or web address] 01/10/2025 7:30 AM EST - 01/10/2025 8:15 AM EST Surgery [facility] Endoscopy Department [address] [place] [address] Irineo Ruff MD [address] [place] [address] [place] [address] [email or web address]@[facility] COLONOSCOPY 01/31/2025 1:00 PM EST Office Visit [facility] Cardiovascular Medicine [address] [facility], 5th Floor, [address] [place] [address] Karena Betancur MD [address] [facility] [address] [place] [address] FRANK@[email or web address] Scheduled Procedures Name Priority Associated Diagnoses [...] documented as of this encounter Care Teams Monitoring And Evaluation Advisor Relationship Specialty Start Date End Date Artie Meehan MD [address] [place] [address] [place] [address] PCP - General Internal Medicine 10/26/17 06/03/21 Laura Mock MD, DMD [address] [address] [email or web address]. so PCP - General Internal Medicine 06/04/21 11/11/23 Pcp, Unknown PCP - General 11/12/23 11/16/23 Laura Mock MD, DMD [address] [address] [email or web address] du PCP - General Internal Medicine 11/17/23 12/28/23 Pcp, Unknown PCP - General 02/28/24 03/04/24 [place] [address] [address] PCP - General 03/05/24 05/17/24 Laura Mock MD, DMD [address] [address] [email or web address] so PCP - General Internal Medicine 05/18/24 Artie Meehan MD [address] [place] [address] Dr [address] [place] [address] Internal Medicine 10/26/17 04/23/22 Rina Swenson MD [address] [place] [address] Dr [address] [place] [address] Psychiatry 07/09/17 Laura Mock MD, DMD [address] [address] [email or web address]. du Partners Attributed Provider 09/01/21 07/03/23 Laura Mock MD, DMD [address] [address] [email or web address] du Insurance Assigned Provider 05/31/23 03/01/24 Jakob Bob MD [address] [place] [address] [address] [place] [address] [email or web address] Cardiology 08/22/23 Jose Cruz MD [address] [facility], [address] [place] [address] [email or web address] Cardiology 08/22/23 Laura Mock MD, DMD [address] [place] [address] [address] [place] [address] [email or web address]. du Partners Attributed Provider 09/01/21 07/03/23 [place] [facility] [phone]. Consulting Provider 08/22/23 [facility] Connect 12/24/23 03/11/24 Cyril Morales [address] [place] [phone] Nurse Practitioner 02/27/24 documented as of this encounter Additional Source Comments The information contained in this document represents components of the legal health record. It is not the complete legal health record.[facility]
--- OUTSIDE RECORDS SUMMARY | 2024-11-25 14:38 | XMS_ITS | Encounter Summary ---
Author Organization [facility] Address [facility] [address] [place] [address] Phone Care Team Providers Care Resource Analyst Name Role Phone Artie Meehan MD Primary Care Provider Artie Meehan MD Unavailable [phone] Rina Swenson MD Unavailable Laura Mock MD, [...] Info) Description 12/16/2019 Ancillary Orders Virtual Department [address] [place] [address] Artie Meehan MD [address] [place] [address] [place] [address] Breast screening Social History Tobacco Use Types [...] Description 01/05/2025 11:00 AM EST Pre-Admission Testing [address] [address] Irineo Ruff MD [address] [place] [address] [email or web address] 01/10/2025 Procedure Pass [facility] Endoscopy Department [address] [place] [address] 01/10/2025 7:30 AM EST Hospital Encounter [facility] Endoscopy Department [address] [place] [address] Irineo Ruff MD [address] [place] [address] [email or web address] 01/10/2025 7:30 AM EST - 01/10/2025 8:15 AM EST Surgery [facility] Endoscopy Department [address] [place] [address] Irineo Ruff MD [address] [place] [address] [place] [address] [email or web address] COLONOSCOPY 01/31/2025 1:00 PM EST Office Visit [facility] Cardiovascular Medicine [address] [facility], 5th Floor, [address] [place] [address] Karena Betancur MD [address] [facility] [address] [place] [address] [email or web address] Scheduled Procedures Name Priority [...] screening, unspecified Breast screening Breast screening, unspecified Abnormal colonoscopy documented in this encounter Additional Health Concerns Infection Onset Date Last Indicated Resolved Time CoV-Presumed 03/23/2022 03/23/2022 04/13/2022 1:23 AM EST CoV-Risk 11/12/2023 11/12/2023 11/12/2023 5:12 PM EDT COVID-19 11/12/2023 11/12/2023 12/03/2023 1:21 AM EDT documented as of this encounter Care Teams Resource Analyst Relationship Specialty Start Date End Date Artie Meehan MD [address] [place] [address] [address] PCP - General Internal Medicine 10/26/17 06/03/21 Laura Mock MD, DMD [address] [address] [email or web address] du PCP - General Internal Medicine 06/04/21 11/11/23 Pcp, Unknown PCP - General 11/12/23 11/16/23 Laura Mock MD, DMD [address] [address] [email or web address] du PCP - General Internal Medicine 11/17/23 12/28/23 Pcp, Unknown PCP - General 02/28/24 03/04/24 [place] [address] [place] [address] PCP - General 03/05/24 05/17/24 Laura Mock MD, DMD [address] [address] [email or web address] du PCP - General Internal Medicine 05/18/24 Artie Meehan MD [address] [place] [address] [place] [address] Internal Medicine 10/26/17 04/23/22 Rina Swenson MD [address] [place] [address] [place] [address] Psychiatry 07/09/17 Laura Mock MD, DMD [address] [address] [email or web address] Partners Attributed Provider 09/01/21 07/03/23 Laura Mock MD, DMD [address] [address] [email or web address] du Insurance Assigned Provider 05/31/23 03/01/24 Jakob Bob MD [address] [place] [address] [place] [address] [email or web address].[facility] Cardiology 08/22/23 Jose Cruz MD [address] [place] [address], [facility] 301 [place] [address] Cardiology 08/22/23 Laura Mock MD, DMD 1 [facility] [address] [place] [address] [email or web address] Partners Attributed Provider 09/01/21 07/03/23 [facility] [phone]. Consulting Provider 08/22/23 [facility] Connect 12/24/23 03/11/24 Cyril Morales [address] [place] [phone] Nurse Practitioner 02/27/24 documented as of this encounter Additional Source Comments The information contained in this document represents components of the legal health record. It is not the complete legal health record.[facility]
--- OUTSIDE RECORDS SUMMARY | 2024-11-25 14:39 | XMS_ITS | Encounter Summary ---
Author Organization [facility] Address [address] [facility] [address] [place] [address] Phone Care Team Providers Care Risk Investigator Name Role Phone Rina Swenson MD Unavailable [...] st Contact Info) Description 07/26/2022 Anti-coag visit [facility] Anticoagulation Clinic 75 [place], [place] [phone] Melvin Stewart, [facility] 12[address] [place] [address] [email or web address] Social History Tobacco Use Types [...] Description 01/05/2025 11:00 AM EST Pre-Admission Testing [facility] [address] [facility] 2nd [place] [address] Irineo Ruff MD [address] [place] [address] [place] [address] [email or web address] 01/10/2025 Procedure Pass [facility] Endoscopy Department [address] [place] [address] 01/10/2025 7:30 AM EST Hospital Encounter [facility] Endoscopy Department [address] [place] [address] Irineo Ruff MD [address] [place] [address] [place] [address] [email or web address] 01/10/2025 7:30 AM EST - 01/10/2025 8:15 AM EST Surgery [facility] Endoscopy Department 75 [place] [address] Irineo Ruff MD 75 [facility] [place] [address] [email or web address] COLONOSCOPY 01/31/2025 1:00 PM EST Office [facility] Cardiovascular Medicine [address] [facility], 5th Floor, [address] [place] [address] Karena Betancur MD [address] [facility] [address] [place] [address] [email or web address] Scheduled Procedures [...] documented as of this encounter Care Teams Risk Investigator Relationship Specialty Start Date End Date Laura Mock MD, DMD 1 [facility] [address] [place] [address] [email or web address] PCP - General Internal Medicine 06/04/21 11/11/23 Pcp, Unknown PCP - General 11/12/23 11/16/23 Laura Mock MD, DMD 1 [facility] [address] [place] [address] [email or web address] du PCP - General Internal Medicine 11/17/23 12/28/23 Pcp, Unknown PCP - General 02/28/24 03/04/24 Nicole [place]ell [place] [address] [place] [address] PCP - General 03/05/24 05/17/24 Laura Mock MD, DMD [address] [address] [email or web address] du PCP - General Internal Medicine 05/18/24 Rina Swenson MD Psychiatry 07/09/17 Laura Mock MD, DMD [address] [address] [email or web address] Partners Attributed Provider 09/01/21 07/03/23 Laura Mock MD, DMD [address] [address] [email or web address] du Insurance Assigned Provider 05/31/23 03/01/24 Jakob Bob MD [address] [place] [address] [place] [address] [email or web address] Cardiology 08/22/23 Jose Cruz MD [address] [place] [address], [facility] [address] [place] [address] Cardiology 08/22/23 Laura Mock MD, DMD 1 [facility] [address] [place] [address] [email or web address] Partners Attributed Provider 09/01/21 07/03/23 [facility] [phone]. Consulting Provider 08/22/23 [facility] Connect 12/24/23 03/11/24 Cyril Morales [facility] [place] [address] Nurse Practitioner 02/27/24 documented as of this encounter Additional Source Comments The information contained in this document represents components of the legal health record. It is not the complete legal health record.[facility]
--- OUTSIDE RECORDS SUMMARY | 2024-11-25 14:39 | XMS_ITS | Encounter Summary ---
Author Organization [facility] Address [facility] [address] [place] [address] Phone Care Team Providers Care Integrated Campaign Manager Name Role Phone Artie Meehan MD [...] st Contact Info) Description 09/07/2021 Anti-coag visit [facility] Anticoagulation Clinic [address] [place] [address] Kenyatta Gamez, PharmD [email or web address] Social History Tobacco Use Types Packs/Day Years [...] Description 01/05/2025 11:00 AM EST Pre-Admission Testing [address] 2nd [place] [address] Irineo Ruff MD [address] [place] [address] [place] [address] [email or web address]@[facility] 01/10/2025 Procedure Pass [facility] Endoscopy Department [address] [place] [address] 01/10/2025 7:30 AM EST Hospital Encounter [facility] Endoscopy Department [address] [place] [address] Irineo Ruff MD [address] [place] [address] WALI@[facility] 01/10/2025 7:30 AM EST - 01/10/2025 8:15 AM EST Surgery [facility] Endoscopy Department [address] [place] [address] Irineo Ruff MD [address] [place] [address] WALI@[facility] COLONOSCOPY 01/31/2025 1:00 PM EST Office Visit [facility] Cardiovascular Medicine [address] [place] [address], 5th Floor, [address] [place] [address] Karena Betancur MD [address] [place] [address] [email or web address] Scheduled Procedures Name Priority Associated Diagnoses Date/Ti [...] documented as of this encounter Care Teams Integrated Campaign Manager Relationship Specialty Start Date End Date Laura Mock MD, DMD 1 [facility] 225 [place] [address] [email or web address] du PCP - General Internal Medicine 06/04/21 11/11/23 Pcp, Unknown PCP - General 11/12/23 11/16/23 Laura Mock MD, DMD 1 [facility] 225 [place] [address] [email or web address] du PCP - General Internal Medicine 11/17/23 12/28/23 Pcp, Unknown PCP - General 02/28/24 03/04/24 [place] [address] [address] PCP - General 03/05/24 05/17/24 Laura Mock MD, DMD [address] [address] [email or web address] PCP - General Internal Medicine 05/18/24 Artie Meehan MD [address] [place] [address] Dr Dior [address] [place] [address] Internal Medicine 10/26/17 04/23/22 Rina Swenson MD [address] [place] [address] [place] [address] Psychiatry 07/09/17 Laura Mock MD, DMD [address] [address] [email or web address] Partners Attributed Provider 09/01/21 07/03/23 Laura Mock MD, DMD [address] [address] [email or web address] Insurance Assigned Provider 05/31/23 03/01/24 Jakob Bob MD [address] [place] [address] [email or web address] Cardiology 08/22/23 Jose Cruz MD [address] [place] [address] Cardiology 08/22/23 Laura Mock MD, DMD [address] [address] [email or web address] Partners Attributed Provider 09/01/21 07/03/23 [facility] [phone]. Consulting Provider 08/22/23 [facility] Connect 12/24/23 03/11/24 Cyril Morales [address] [place] [address] Nurse Practitioner 02/27/24 documented as of this encounter Additional Source Comments The information contained in this document represents components of the legal health record. It is not the complete legal health record.[facility]
--- OUTSIDE RECORDS SUMMARY | 2024-11-25 14:39 | XMS_ITS | Encounter Summary ---
Author Organization [facility] Address [address] [place] [address] [place] [address] Phone Care Team Providers Care Beef Lugger Name Role Phone Rina Swenson MD Unavailable Laura Mock MD, DMD Primary Car e Provider Laura Mock MD, DMD Unavailable Laura Mock MD, DMD Unavailable Jakob Bob MD Unavailable [phone] Jose Cruz MD Unavailable Laura Mock MD, DMD Unavailable Pcp, Unknown Primary Care Provider UnavailLaura Ascencio MD, DMD Primary Car e Provider Pcp, Unknown Primary Care Provider UnavailNicole Arguello MD Primary Care Provide r Laura Mock MD, DMD Primary Car e Provider Encounter Details Date Type Department Care Team (Late st Contact Info) Description 12/10/2022 Anti-coag visit [facility] Cardiovascular Health [address] [place] [address] Catherine Hernández, PharmD [email or web address] Social History Tobacco Use Types Packs/Day Years [...] Description 01/05/2025 11:00 AM EST Pre-Admission Testing [address] 2nd [place] [address] Irineo Ruff MD [address] [place] [address] WALI@[facility] 01/10/2025 Procedure Pass [facility] Endoscopy Department [address] [place] [address] 01/10/2025 7:30 AM EST Hospital Encounter [facility] Endoscopy Department [address] [place] [address] Irineo Ruff MD [address] [place] [address] WALI@[facility] 01/10/2025 7:30 AM EST - 01/10/2025 8:15 AM EST Surgery [facility] Endoscopy Department [address] [place] [address] Irineo Ruff MD 75 [facility], [place] [address] [email or web address]@[facility] COLONOSCOPY 01/31/2025 1:00 PM EST Office Visit [facility] Cardiovascular Medicine [address] [facility], 5th Floor, [address] [place] [address] Karena Betancur MD 55 [facility] [address] [place] [address] [email or web address] Scheduled Procedures Name Priority Associated Diagnoses [...] documented as of this encounter Care Teams Beef Lugger Relationship Specialty Start Date End Date Laura Mock MD, DMD [address] [address] [email or web address] PCP - General Internal Medicine 06/04/21 11/11/23 Pcp, Unknown PCP - General 11/12/23 11/16/23 Laura Mock MD, DMD 1 [facility] 225 [place] [address] [email or web address] PCP - General Internal Medicine 11/17/23 12/28/23 Pcp, Unknown PCP - General 02/28/24 03/04/24 Nicole Newell MD [address] [place] [address] PCP - General 03/05/24 05/17/24 Laura Mock MD, DMD [address] [address] [email or web address] du PCP - General Internal Medicine 05/18/24 Rina Swenson MD Psychiatry 07/09/17 Laura Mock MD, DMD [address] [address] [email or web address] Partners Attributed Provider 09/01/21 07/03/23 Laura Mock MD, DMD [address] [address] [email or web address] du Insurance Assigned Provider 05/31/23 03/01/24 Jakob Bob MD [address] [place] [address] [place] [address] [email or web address] Cardiology 08/22/23 Jose Cruz MD [address] [place] [address] Cardiology 08/22/23 Laura Mock MD, DMD [address] [address] [email or web address] Partners Attributed Provider 09/01/21 07/03/23 [facility] [phone]. Consulting Provider 08/22/23 [facility] Connect 12/24/23 03/11/24 Cyril Morales [address] [place] [address] Nurse Practitioner 02/27/24 documented as of this encounter Additional Source Comments The information contained in this document represents components of the legal health record. It is not the complete legal health record.[facility]
--- OUTSIDE RECORDS SUMMARY | 2024-11-25 14:39 | XMS_ITS | Encounter Summary ---
Author Organization [facility] Address [facility] [employer] [address] [address] Phone Care Team Providers Care Skip Hoist Operator Name Role Phone Rina Swenson MD [...] Description 01/05/2025 11:00 AM EST Pre-Admission Testing [address] [address] Irineo Ruff MD [address] [place] [address] WALI@[email or web address] 01/10/2025 Procedure Pass [facility] Endoscopy Department [address] [place] [address] 01/10/2025 7:30 AM EST Hospital Encounter [facility] Endoscopy Department [address] [place] [address] Irineo Ruff MD [address] [place] [address] [email or web address] 01/10/2025 7:30 AM EST - 01/10/2025 8:15 AM EST Surgery [facility] Endoscopy Department [address] [place] [address] Irineo Ruff MD [address] [place] [address] WALI@[facility] COLONOSCOPY 01/31/2025 1:00 PM EST Office Visit [facility] Cardiovascular Medicine 32 [facility], 5th Floor, [address] [place] [address] Karena Betancur MD 55 [facility] [address] [place] [address] FRANK@[email or web address] Scheduled [...] documented as of this encounter Care Teams Skip Hoist Operator Relationship Specialty Start Date End Date Laura Mock MD, DMD [address] [address] [email or web address] du PCP - General Internal Medicine 06/04/21 11/11/23 Pcp, Unknown PCP - General 11/12/23 11/16/23 Laura Mock MD, DMD [address] [address] [email or web address] PCP - General Internal Medicine 11/17/23 12/28/23 Pcp, Unknown PCP - General 02/28/24 03/04/24 Nicole Newell MD [address] [place] [phone] PCP - General 03/05/24 05/17/24 Laura Mock MD, DMD [address] [address] [email or web address] du PCP - General Internal Medicine 05/18/24 Rina Swenson MD Psychiatry 07/09/17 Laura Mock MD, DMD [address] [address] [email or web address] Partners Attributed Provider 09/01/21 07/03/23 Laura Mock MD, DMD [address] [address] [email or web address] du Insurance Assigned Provider 05/31/23 03/01/24 Jakob Bob MD 75 [facility] [place] [address] [email or web address] Cardiology 08/22/23 Jose Cruz MD [address] [place] [address] Cardiology 08/22/23 Laura Mock MD, DMD [address] [address] [email or web address] du Partners Attributed Provider 09/01/21 07/03/23 [facility] [phone]. Consulting Provider 08/22/23 [facility] Connect 12/24/23 03/11/24 Cyril Morales [address] [place] [address] Nurse Practitioner 02/27/24 documented as of this encounter Additional Source Comments The information contained in this document represents components of the legal health record. It is not the complete legal health record.[facility]
--- OUTSIDE RECORDS SUMMARY | 2024-11-25 14:39 | XMS_ITS | Encounter Summary ---
Author Organization [facility] Address [facility] [address] [place] [address] Phone Care Team Providers Care Site Identification Specialist Name Role Phone Artie Meehan MD Unavailable [...] st Contact Info) Description 09/13/2021 Anti-coag visit [facility] Anticoagulation Clinic [address] [place] [address] Abbie Prieto, PharmD [address] [address] [email or web address] Social History Tobacco Use Types Packs/Day Years [...] Description 01/05/2025 11:00 AM EST Pre-Admission Testing [address] 2nd [place] [address] Irineo Ruff MD [address] [place] [address] [place] [address] [email or web address] 01/10/2025 Procedure Pass [facility] Endoscopy Department [address] [place] [address] 01/10/2025 7:30 AM EST Hospital Encounter [facility] Endoscopy Department [address] [place] [address] Irineo Ruff MD [address] [place] [address] [email or web address] 01/10/2025 7:30 AM EST - 01/10/2025 8:15 AM EST Surgery [facility] Endoscopy Department [address] [place] [address] Irineo Ruff MD [address] [place] [address] [place] [address] [email or web address] COLONOSCOPY 01/31/2025 1:00 PM EST Office Visit [facility] Cardiovascular Medicine [address] [facility], 5th Floor, [address] [place] [address] Karena Betancur MD [address] [facility] [address] [place] [address] [email or web address] Scheduled Procedures Name Priority Associated Diagnoses [...] documented as of this encounter Care Teams Site Identification Specialist Relationship Specialty Start Date End Date Laura Mock MD, DMD [address] [address] [email or web address] PCP - General Internal Medicine 06/04/21 11/11/23 Pcp, Unknown PCP - General 11/12/23 11/16/23 Laura Mock MD, DMD [address] [address] [email or web address] PCP - General Internal Medicine 11/17/23 12/28/23 Pcp, Unknown PCP - General 02/28/24 03/04/24 [place] [address] [place] [address] PCP - General 03/05/24 05/17/24 Laura Mock MD, DMD [address] [address] [email or web address] du PCP - General Internal Medicine 05/18/24 Artie Meehan MD [address] [place] [address] Dr [address] [place] [address] Internal Medicine 10/26/17 04/23/22 Rina Swenson MD [address] [place] [address] Dr [address] [place] [address] [place] [address] Psychiatry 07/09/17 Laura Mock MD, DMD [address] [address] [email or web address] du Partners Attributed Provider 09/01/21 07/03/23 Laura Mock MD, DMD [address] [address] [email or web address] du Insurance Assigned Provider 05/31/23 03/01/24 Jakob Bob MD [address] [place] [address] [place] [address] [email or web address] Cardiology 08/22/23 Jose Cruz MD [address] [place] [address], [address] [address] Cardiology 08/22/23 Laura Mock MD, DMD 1 [facility] [address] [place] [address] [email or web address] Partners Attributed Provider 09/01/21 07/03/23 [facility] [phone]. Consulting Provider 08/22/23 CAROLANN GREWAL Connect 12/24/23 03/11/24 Cyril Morales [address] [place] [address] Nurse Practitioner 02/27/24 documented as of this encounter Additional Source Comments The information contained in this document represents components of the legal health record. It is not the complete legal health record.[facility]
--- OUTSIDE RECORDS SUMMARY | 2024-11-25 14:39 | XMS_ITS | Encounter Summary ---
Author Organization [facility] Address [address] [place] [address] Phone Care Team Providers Care Aligner Typewriter Name Role Phone Artie Meehan MD Unavailable [...] Info) Description 09/10/2021 Anti-coag visit [facility] Li, Mengyan, PharmD [address] [place] [address] [email or web address] Social History Tobacco Use Types Packs/Day Years [...] Upcoming Encounters Date Type Department Care Team ([facility] st Contact Info) Description 01/05/2025 11:00 AM EST Pre-Admission Testing [address] [address] Irineo Ruff MD [address] [place] [address] [place] [address] [email or web address] 01/10/2025 Procedure Pass [facility] Endoscopy Department [address] [place] [address] 01/10/2025 7:30 AM EST Hospital Encounter [facility] Endoscopy Department [address] [place] [address] Irineo Ruff MD [address] [place] [address] [place] [address] [email or web address] 01/10/2025 7:30 AM EST - 01/10/2025 8:15 AM EST Surgery [facility] Endoscopy Department [address] [place] [address] Irineo Ruff MD [address] [place] [address] [email or web address] COLONOSCOPY 01/31/2025 1:00 PM EST Office [place] [facility] [place] [address] [place] [address], 5th Floor, [address] [place] [address] Karena Betancur MD [address] [facility] [address] [place] [address] [email or web address] Scheduled Procedures Name Priority Associated [...] documented as of this encounter Care Teams Aligner Typewriter Relationship Specialty Start Date End Date Laura Mock MD, DMD [address] [address] [email or web address] PCP - General Internal Medicine 06/04/21 11/11/23 Pcp, Unknown PCP - General 11/12/23 11/16/23 Laura Mock MD, DMD [address] [address] [email or web address] du PCP - General Internal Medicine 11/17/23 12/28/23 Pcp, Unknown PCP - General 02/28/24 03/04/24 [place] [address] [address] PCP - General 03/05/24 05/17/24 Laura Mock MD, DMD [address] [address] [email or web address] du PCP - General Internal Medicine 05/18/24 Artie Meehan MD [address] [place] [address] [place] [address] Internal Medicine 10/26/17 04/23/22 Rina Swenson MD [address] [place] [address] [place] [address] Psychiatry 07/09/17 Laura Mock MD, DMD [address] [address] [email or web address] Partners Attributed Provider 09/01/21 07/03/23 Laura Mock MD, DMD [address] [address] [email or web address] Insurance Assigned Provider 05/31/23 03/01/24 Jakob Bob MD [address] [place] [address] [email or web address] Cardiology 08/22/23 Jose Cruz MD [address] [place] [address] Cardiology 08/22/23 Laura Mock MD, DMD [address] [address] [email or web address] Partners Attributed Provider 09/01/21 07/03/23 [facility] [phone]. Consulting Provider 08/22/23 [facility] Connect 12/24/23 03/11/24 Cyril Morales [address] [place] [address] Nurse Practitioner 02/27/24 documented as of this encounter Additional Source Comments The information contained in this document represents components of the legal health record. It is not the complete legal health record.[facility]
--- OUTSIDE RECORDS SUMMARY | 2024-11-25 14:39 | XMS_ITS | Encounter Summary ---
Author Organization [facility] [place] [facility] Address [facility] [address] [address] Phone Care Team Providers Care Lipcoat Sprayer Name Role Phone Artie Meehan MD Unavailable Rina Swenson MD Unavailable Laura Mock MD, DMD Primary Car e Provider Laura Mock MD, DMD Unavailable Laura Mock MD, DMD Unavailable Jakob Bob MD Unavailable Jose Cruz MD Unavailable [phone] Laura Mock MD, DMD Unavailable Pcp, Unknown Primary Care Provider UnavailLaura Ascencio MD, DMD Primary Car e Provider Pcp, Unknown Primary Care Provider UnavailNicole Arguello MD Primary Care Provide r Laura Mock MD, DMD Primary Car e Provider Encounter Details Date Type Department Care Team (Late st Contact Info) Description 09/17/2021 Anti-coag visit [facility] Cardiovascular [address] [address] Catherine Hernández, UniqueD [email or web address] Social History Tobacco Use Types Packs/Day Years [...] Description 01/05/2025 11:00 AM EST Pre-Admission Testing [address] 2nd [place] [address] Irineo Ruff MD [address] [place] [address] [email or web address] 01/10/2025 Procedure Pass [facility] Endoscopy Department [address] [place] [address] 01/10/2025 7:30 AM EST Hospital Encounter [facility] Endoscopy Department [address] [place] [address] Irineo Ruff MD [address] [place] [address] [place] [address] [email or web address] 01/10/2025 7:30 AM EST - 01/10/2025 8:15 AM EST Surgery [facility] Endoscopy Department [address] [place] [address] Irineo Ruff MD [address] [place] [address] [email or web address]@[facility] COLONOSCOPY 01/31/2025 1:00 PM EST Office Visit [facility] Cardi[place] Medicine [address] [place] [address], 5th Floor, [address] [place] [address] Karena Betancur MD [address] [place] [address] [email or web address] Scheduled Procedures Name [...] documented as of this encounter Care Teams Lipcoat Sprayer Relationship Specialty Start Date End Date Laura Mock MD, DMD [address] [address] [email or web address] PCP - General Internal Medicine 06/04/21 11/11/23 Pcp, Unknown PCP - General 11/12/23 11/16/23 Laura Mock MD, DMD [address] [address] [email or web address] PCP - General Internal Medicine 11/17/23 12/28/23 Pcp, Unknown PCP - General 02/28/24 03/04/24 [place] [address] [address] PCP - General 03/05/24 05/17/24 Laura Mock MD, DMD 1 [facility] [address] [place] [address] [email or web address] PCP - General Internal Medicine 05/18/24 Artie Meehan MD [address] [place] [address] Dr [address] [place] [address] Internal Medicine 10/26/17 04/23/22 Rina Swenson MD [address] [place] [address] Dr [address] [place] [address] Psychiatry 07/09/17 Laura Mock MD, DMD [address] [address] [email or web address] Partners Attributed Provider 09/01/21 07/03/23 Laura Mock MD, DMD [address] [address] [email or web address] du Insurance Assigned Provider 05/31/23 03/01/24 Jkaob Bob MD [address] [place] [address] [place] [address] [email or web address] Cardiology 08/22/23 Jose Cruz MD [address] [place] [address] Cardiology 08/22/23 Laura Mock MD, DMD [address] [address] [email or web address] Partners Attributed Provider 09/01/21 07/03/23 [facility] [phone]. Consulting Provider 08/22/23 [facility] Connect 12/24/23 03/11/24 Cyril Morales [facility] [place] [address] Nurse Practitioner 02/27/24 documented as of this encounter Additional Source Comments The information contained in this document represents components of the legal health record. It is not the complete legal health record.[facility]
--- OUTSIDE RECORDS SUMMARY | 2024-11-25 14:39 | XMS_ITS | Encounter Summary ---
Author Organization [facility] Address [facility] [address] [address] Phone Care Team Providers Care Fur Dyer Name Role Phone Rina Swenson MD Unavailable [...] Description 01/05/2025 11:00 AM EST Pre-Admission Testing [address] [address] Irineo Ruff MD [address] [place] [address] [email or web address] 01/10/2025 Procedure Pass [facility] Endoscopy Department [address] [place] [address] 01/10/2025 7:30 AM EST Hospital Encounter [facility] Endoscopy Department [address] [place] [address] Irineo Ruff MD [address] [place] [address] [email or web address] 01/10/2025 7:30 AM EST - 01/10/2025 8:15 AM EST Surgery [facility] Endoscopy Department [address] [place] [address] Irineo Ruff MD [address] [place] [address] [email or web address] COLONOSCOPY 01/31/2025 1:00 PM EST Office Visit [facility] Cardiovascular Medicine [address] [facility], 5th Floor, [address] [place] [address] Karena Betancur MD 55 [facility] [address] [place] [address] [email or web address] Scheduled Procedures Name Priority Associated Diagnoses [...] documented as of this encounter Care Teams Fur Dyer Relationship Specialty Start Date End Date Laura Mock MD, DMD [address] [address] [email or web address] PCP - General Internal Medicine 06/04/21 11/11/23 Pcp, Unknown PCP - General 11/12/23 11/16/23 Laura Mock MD, DMD [address] [address] [email or web address] PCP - General Internal Medicine 11/17/23 12/28/23 Pcp, Unknown PCP - General 02/28/24 03/04/24 Nicole Newell MD [address] [place] [address] [phone] PCP - General 03/05/24 05/17/24 Laura Mock MD, DMD [address] [address] [email or web address] du PCP - General Internal Medicine 05/18/24 Rina Swenson MD Psychiatry 07/09/17 Laura Mock MD, DMD [address] [address] [email or web address] Attributed Provider 09/01/21 07/03/23 Laura Mock MD, DMD [address] [address] [email or web address] Insurance Assigned Provider 05/31/23 03/01/24 Jakob Bob MD [address] [facility] [place] [address] [email or web address] Cardiology 08/22/23 Jose Cruz MD [address] [place] [address] Cardiology 08/22/23 Laura Mock MD, DMD [address] [address] [email or web address] Partners Attributed Provider 09/01/21 07/03/23 [facility] [phone]. Consulting Provider 08/22/23 [facility] Connect 12/24/23 03/11/24 Cyril Morales [address] [place] [address] Nurse Practitioner 02/27/24 documented as of this encounter Additional Source Comments The information contained in this document represents components of the legal health record. It is not the complete legal health record.[facility]
--- OUTSIDE RECORDS SUMMARY | 2024-11-25 14:39 | XMS_ITS | Encounter Summary ---
Author Organization [facility] Address [address] [place] [address] [place] [address] Phone Care Team Providers Care Miscellaneous Machine Operator Name Role Phone Rina Swenson MD Unavailable Laura Mock MD, DMD Primary Car e Provider Laura Mock MD, DMD Unavailable Laura Mock MD, DMD Unavailable Jakob Bob MD Unavailable [phone] Jose Cruz MD Unavailable Laura Mock MD, DMD Unavailable Pcp, Unknown Primary Care Provider UnavailLaura Ascencio MD, DMD Primary Car e Provider Pcp, Unknown Primary Care Provider UnavailNicole Arguello MD Primary Care Provide r Laura Mock MD, DMD Primary Car e Provider Encounter Details Date Type Department Care Team (Late st Contact Info) Description 07/18/2022 Anti-coag visit [facility] Anticoagulation Clinic [address] [place] [phone] Kenyatta [email or web address] Social History Tobacco Use [...] Description 01/05/2025 11:00 AM EST Pre-Admission Testing [address] 2nd [place] [address] Irineo Ruff MD [address] [place] [address] [email or web address] 01/10/2025 Procedure Pass [facility] Endoscopy Department [address] [place] [address] 01/10/2025 7:30 AM EST Hospital Encounter [facility] Endoscopy Department [address] [place] [address] Irineo Ruff MD [address] [place] [address] [email or web address] 01/10/2025 7:30 AM EST - 01/10/2025 8:15 AM EST Surgery [facility] Endoscopy Department [address] [place] [address] Irineo Ruff MD 75 [facility] [place] [address] [email or web address] COLONOSCOPY 01/31/2025 1:00 PM EST Office Visit [facility] Cardiovascular Medicine [address] [facility], 5th Floor, [address] [place] [address] Karena Betancur MD 55 [facility] [address] [place] [address] [email or web address] Scheduled Procedures Name Priority Associated Diagnoses [...] documented as of this encounter Care Teams Miscellaneous Machine Operator Relationship Specialty Start Date End Date Laura Mock MD, DMD [address] [address] [email or web address] PCP - General Internal Medicine 06/04/21 11/11/23 Pcp, Unknown PCP - General 11/12/23 11/16/23 Laura Mock MD, DMD 1 [facility] [address] [place] [address] [email or web address] PCP - General Internal Medicine 11/17/23 12/28/23 Pcp, Unknown PCP - General 02/28/24 03/04/24 [place] [address] [address] PCP - General 03/05/24 05/17/24 Laura Mock MD, DMD [address] [address] [email or web address] PCP - General Internal Medicine 05/18/24 Rina Swenson MD Psychiatry 07/09/17 Laura Mock MD, DMD [address] [address] [email or web address] Partners Attributed Provider 09/01/21 07/03/23 Laura Mock MD, DMD [address] [address] [email or web address] Insurance Assigned Provider 05/31/23 03/01/24 Jakob Bob MD [address] [place] [address] [place] [address] [email or web address] Cardiology 08/22/23 Jose Cruz MD [address] [place] [address], [address] [place] [address] Cardiology 08/22/23 Laura Mock MD, DMD [address] [address] [email or web address] Partners Attributed Provider 09/01/21 07/03/23 [facility] [phone]. Consulting Provider 08/22/23 [facility] Connect 12/24/23 03/11/24 Cyril Morales [facility] [place] [address] Nurse Practitioner 02/27/24 documented as of this encounter Additional Source Comments The information contained in this document represents components of the legal health record. It is not the complete legal health record.[facility]
--- OUTSIDE RECORDS SUMMARY | 2024-11-25 14:39 | XMS_ITS | Encounter Summary ---
Author Organization [facility] Address [facility] [address] [place] [address] Phone Care Team Providers Care Jewish History Professor Name Role Phone Artie Meehan MD Primary Care Provider Artie Meehan MD Unavailable [phone] Rina Swenson MD Unavailable Laura Mock MD, [...] st Contact Info) Description 12/16/2019 Procedure Pass [address] [address] Social History Tobacco Use Types Packs/Day Years [...] 01/05/2025 11:00 AM EST Pre-Admission Testing [address] 2nd [place] [address] Irineo Ruff MD [address] [place] [address] [place] [address] [email or web address] 01/10/2025 Procedure Pass [facility] Endoscopy Department [address] [place] [address] 01/10/2025 7:30 AM EST Hospital Encounter [facility] Endoscopy Department [address] [place] [address] Irineo Ruff MD [address] [place] [address] [place] [address] [email or web address] 01/10/2025 7:30 AM EST - 01/10/2025 8:15 AM EST Surgery [facility] Endoscopy Department [address] [place] [address] Irineo Ruff MD [address] [place] [address] [place] [address] [email or web address] COLONOSCOPY 01/31/2025 1:00 PM EST Office Visit [facility] Cardiovascular Medicine [address] [place] [address], 5th Floor, [address] [place] [address] Karena Betancur MD [address] [place] [address] [email or web address] Scheduled Procedures Name Priority Associated [...] documented as of this encounter Care Teams Jewish History Professor Relationship Specialty Start Date End Date Artie Meehan MD [address] [place] [address] PCP - General Internal Medicine 10/26/17 06/03/21 Laura Mock MD, DMD [address] [address] [email or web address] PCP - General Internal Medicine 06/04/21 11/11/23 Pcp, Unknown PCP - General 11/12/23 11/16/23 Laura Mock MD, DMD [address] [address] [email or web address] PCP - General Internal Medicine 11/17/23 12/28/23 Pcp, Unknown PCP - General 02/28/24 03/04/24 Nicole Newell MD [address] [place] [address] PCP - General 03/05/24 05/17/24 Laura Mock MD, DMD [address] [address] [email or web address] du PCP - General Internal Medicine 05/18/24 Artie Meehan MD [address] [place] [address] [place] [address] Internal Medicine 10/26/17 04/23/22 Rina Swenson MD [address] [place] [address] [place] [address] Psychiatry 07/09/17 Laura Mock MD, DMD [address] [address] [email or web address] Partners Attributed Provider 09/01/21 07/03/23 Laura Mock MD, DMD [address] [address] [email or web address] du Insurance Assigned Provider 05/31/23 03/01/24 Jakob Bob MD [address] [place], [place] [address] [place] [address] [email or web address] Cardiology 08/22/23 Jose Cruz MD [address] [place] [address], [facility] [address] [place] [address] Cardiology 08/22/23 Laura Mock MD, DMD 1 [facility] [address] [place] [address] [email or web address] Partners Attributed Provider 09/01/21 07/03/23 [facility] [phone]. Consulting Provider 08/22/23 [facility] Connect 12/24/23 03/11/24 Cyril Morales [address] [place] [address] Nurse Practitioner 02/27/24 documented as of this encounter Additional Source Comments The information contained in this document represents components of the legal health record. It is not the complete legal health record.[facility]
--- OUTSIDE RECORDS SUMMARY | 2024-11-25 14:39 | XMS_ITS | Encounter Summary ---
Author Organization [facility] Address [facility] [address] [place] [address] Phone Care Team Providers Care Ironing Worker Name Role Phone Artie Meehan MD Primary Care Provider Artie Meehan MD Unavailable [phone] Rina Swenson MD Unavailable Laura Mock MD, [...] Info) Description 04/06/2019 Ancillary Orders Virtual Department [address] [place] [address] Artie Meehan MD [address] [place] [address] [place] [address] Menopausal state Social History Tobacco Use Types [...] Description 01/05/2025 11:00 AM EST Pre-Admission Testing [address] [address] Irineo Ruff MD [address] [place] [address] [email or web address]@[email or web address] 01/10/2025 Procedure Pass [facility] Endoscopy Department [address] [place] [address] 01/10/2025 7:30 AM EST Hospital Encounter [facility] Endoscopy Department [address] [place] [address] Irineo Ruff MD [address] [place] [address] WALI@[email or web address] 01/10/2025 7:30 AM EST - 01/10/2025 8:15 AM EST Surgery [facility] Endoscopy Department [address] [place] [address] Irineo Ruff MD [address] [place] [address] [place] [address] [email or web address] COLONOSCOPY 01/31/2025 1:00 PM EST Office Visit [facility] [place] [address] [facility], 5th Floor, [address] [place] [address] Karena Betancur MD 55 [facility] [address] [place] [address] [email or web address] Scheduled Procedures Name Priority Associated Diagnoses Date/Ti me COLONOSCOPY Abnormal colonoscopy 01/10/2025 7:30 AM EST documented as of this encounter Visit Diagnoses Diagnosis Menopausal state Symptomatic menopausal or female climacteric states Abnormal colonoscopy documented in this encounter Additional Health Concerns Infection Onset Date Last Indicated Resolved Time CoV-Presumed 03/23/2022 03/23/2022 04/13/2022 1:23 AM EST CoV-Risk 11/12/2023 11/12/2023 11/12/2023 5:12 PM EDT COVID-19 11/12/2023 11/12/2023 12/03/2023 1:21 AM EDT documented as of this encounter Care Teams Ironing Worker Relationship Specialty Start Date End Date Artie Meehan MD [address] [place] [address] Dr [address] [place] [address] PCP - General Internal Medicine 10/26/17 06/03/21 Laura Mock MD, DMD [address] [address] [email or web address] PCP - General Internal Medicine 06/04/21 11/11/23 Pcp, Unknown PCP - General 11/12/23 11/16/23 Laura Mock MD, DMD [address] [address] [email or web address] PCP - General Internal Medicine 11/17/23 12/28/23 Pcp, Unknown PCP - General 02/28/24 03/04/24 [place] [address] [address] PCP - General 03/05/24 05/17/24 Laura Mock MD, DMD [address] [address] [email or web address] du PCP - General Internal Medicine 05/18/24 Artie Meehan MD [address] [place] [address] [facility] [place] [address] Internal Medicine 10/26/17 04/23/22 Rina Swenson MD [address] [place] [address] Dr [address] [place], [place] [address] [address] Psychiatry 07/09/17 Laura Mock MD, DMD [address] [address] [email or web address] Partners Attributed Provider 09/01/21 07/03/23 Laura Mock MD, DMD [address] [address] [email or web address] du Insurance Assigned Provider 05/31/23 03/01/24 Jakob Bob MD [address] [place], [place] [address] [place] [address] [email or web address] Cardiology 08/22/23 Jose Cruz MD [address] [facility], [address] [place] [address] Cardiology 08/22/23 Laura Mock MD, DMD 1 [facility] [address] [place] [address] [email or web address] du Partners Attributed Provider 09/01/21 07/03/23 [place] [facility] [phone]. Consulting Provider 08/22/23 CAROLANN GREWAL Connect 12/24/23 03/11/24 Cyril Morales [address] [place] [address] Nurse Practitioner 02/27/24 documented as of this encounter Additional Source Comments The information contained in this document represents components of the legal health record. It is not the complete legal health record.[facility]
--- OUTSIDE RECORDS SUMMARY | 2024-11-25 14:39 | XMS_ITS | Encounter Summary ---
Author Organization [facility] Address [facility] [employer] [address] [address] Phone Care Team Providers Care Acting Manager Name Role Phone Rina Swenson MD Unavailable [phone] Laura Mock MD, DMD Primary Car e [...] Description 01/05/2025 11:00 AM EST Pre-Admission Testing [address] [address] Irineo Ruff MD [address] [place] [address] [email or web address] 01/10/2025 Procedure Pass [facility] Endoscopy Department [address] [place] [address] 01/10/2025 7:30 AM EST Hospital Encounter [facility] Endoscopy Department [address] [place] [address] Irineo Ruff MD [address] [place] [address] WALI[email or web address] 01/10/2025 7:30 AM EST - 01/10/2025 8:15 AM EST Surgery [facility] Endoscopy Department [address] [place] [address] Irineo Ruff MD [address] [place] [address] WALI@[email or web address] COLONOSCOPY 01/31/2025 1:00 PM EST Office Visit [facility] Cardiovascular Medicine [address] [facility], 5th Floor, [address] [place] [address] Karena Betancur MD [address] [facility] [address] [place] [address] [email or web address] Scheduled Procedures Name Priority Associated [...] documented as of this encounter Care Teams Acting Manager Relationship Specialty Start Date End Date Laura Mock MD, DMD [address] [address] [email or web address] du PCP - General Internal Medicine 06/04/21 11/11/23 Pcp, Unknown PCP - General 11/12/23 11/16/23 Laura Mock MD, DMD [address] [address] [email or web address] PCP - General Internal Medicine 11/17/23 12/28/23 Pcp, Unknown PCP - General 02/28/24 03/04/24 Nicole Newell MD [address] [place] [address] [id number] PCP - General 03/05/24 05/17/24 Laura Mock MD, DMD [address] [address] [email or web address] du PCP - General Internal Medicine 05/18/24 Rina Swenson MD Psychiatry 07/09/17 Laura Mock MD, DMD [address] [address] [email or web address] Partners Attributed Provider 09/01/21 07/03/23 Laura Mock MD, DMD [address] [address] [email or web address] du Insurance Assigned Provider 05/31/23 03/01/24 Jakob Bob MD [address] [facility] [place] [address] [email or web address] Cardiology 08/22/23 Jose Cruz MD [address] [place] [address] Cardiology 08/22/23 Laura Mock MD, DMD [address] [address] [email or web address] du Partners Attributed Provider 09/01/21 07/03/23 [facility] [phone]. Consulting Provider 08/22/23 [facility] Connect 12/24/23 03/11/24 Cyril Morales [address] [place] [address] Nurse Practitioner 02/27/24 documented as of this encounter Additional Source Comments The information contained in this document represents components of the legal health record. It is not the complete legal health record.[facility]
--- OUTSIDE RECORDS SUMMARY | 2024-11-25 14:39 | XMS_ITS | Encounter Summary ---
Author Organization [facility] Address [facility] [employer] [address] [place] [address] Phone Care Team Providers Care Middle School Coach Name Role Phone Rina Swenson MD Unavailable [phone] Laura Mock MD, DMD Primary Car e Provider Laura Mock MD, DMD Unavailable Laura Mock MD, DMD Unavailable Jakob Bob MD Unavailable [phone] Jose Cruz MD Unavailable Laura Mock MD, DMD Unavailable Pcp, Unknown Primary Care Provider UnavailLaura Ascencio MD, DMD Primary Car e Provider Pcp, Unknown Primary Care Provider UnavailNicole Arguello MD Primary Care Provide r Laura Mock MD, DMD Primary Car e Provider Encounter Details Date Type Department Care Team (Late st Contact Info) Description 10/07/2022 Procedure Pass [facility] [place] [place] [id number] Social History Tobacco Use Types Packs/Day Years [...] Description 01/05/2025 11:00 AM EST Pre-Admission Testing [address] [address] Irineo Ruff MD [address] [place] [address] WALI@[email or web address] 01/10/2025 Procedure Pass [facility] Endoscopy Department [address] [place] [address] 01/10/2025 7:30 AM EST Hospital Encounter [facility] Endoscopy Department [address] [place] [address] Irineo Ruff MD [address] [place] [address] WALI@[email or web address] 01/10/2025 7:30 AM EST - 01/10/2025 8:15 AM EST Surgery [facility] Endoscopy Department [address] [place] [address] Irineo Ruff MD [address] [place] [address] WALI@[facility] COLONOSCOPY 01/31/2025 1:00 PM EST [facility] [place] [address] [facility], 5th Floor, [address] [place] [address] Karena Betancur MD [address] [facility] [address] [place] [address] [email or web address] Scheduled Procedures Name Priority Associated [...] documented as of this encounter Care Teams Middle School Coach Relationship Specialty Start Date End Date Laura Mock MD, DMD [address] [address] [email or web address] PCP - General Internal Medicine 06/04/21 11/11/23 Pcp, Unknown PCP - General 11/12/23 11/16/23 Laura Mock MD, DMD [address] [address] [email or web address] PCP - General Internal Medicine 11/17/23 12/28/23 Pcp, Unknown PCP - General 02/28/24 03/04/24 [place] [address] [place] [address] PCP - General 03/05/24 05/17/24 Laura Mock MD, DMD 1 [facility] [address] [place] [address] [email or web address] du PCP - General Internal Medicine 05/18/24 Rina Swenson MD Psychiatry 07/09/17 Laura Mock MD, DMD [address] [address] [email or web address] Partners Attributed Provider 09/01/21 07/03/23 Laura Mock MD, DMD [address] [address] [email or web address] du Insurance Assigned Provider 05/31/23 03/01/24 Jakob Bob MD [address] [facility] [place] [address] [email or web address] Cardiology 08/22/23 Jose Cruz MD [address] [place] [address], [address] [place] [address] Cardiology 08/22/23 Laura Mock MD, DMD [address] [address] [email or web address] du Partners Attributed Provider 09/01/21 07/03/23 [facility] [phone]. Consulting Provider 08/22/23 [facility] Connect 12/24/23 03/11/24 Cyril Morales [facility] [place] [address] Nurse Practitioner 02/27/24 documented as of this encounter Additional Source Comments The information contained in this document represents components of the legal health record. It is not the complete legal health record.[facility]
--- OUTSIDE RECORDS SUMMARY | 2024-11-25 14:39 | XMS_ITS | Encounter Summary ---
Author Organization [facility] Address [facility] [address] [address] Phone Care Team Providers Care Protocol Officer Name Role Phone Artie Meehan MD Unavailable [...] (Late st Contact Info) Description 09/28/2021 Telephone [facility] Psychiatric Specialties at [address] [place] [address] Tamara Walton, YOLIE [address] [place] [address] Social History Tobacco Use Types Packs/Day Years [...] Description 01/05/2025 11:00 AM EST Pre-Admission Testing [address] [place] [address] Irineo Ruff MD [address] [place] [address] [place] [address] [email or web address]@[email or web address] 01/10/2025 Procedure Pass [facility] Endoscopy Department [address] [place] [address] 01/10/2025 7:30 AM EST Hospital Encounter [facility] Endoscopy Department [address] [place] [address] Irineo Ruff MD [address] [place] [address] [place] [address] WALI@[email or web address] 01/10/2025 7:30 AM EST - 01/10/2025 8:15 AM EST Surgery [facility] Endoscopy Department [address] [place] [address] Irineo Ruff MD [address] [place] [address] [place] [address] WALI@[email or web address] COLONOSCOPY 01/31/2025 1:00 PM EST Office Visit [facility] Cardiovascular Medicine [address] [place] [address], 5th Floor, [address] [place] [address] Karena Betancur MD 55 [facility] [address] [place] [address] [email or web address] Scheduled Procedures Name Priority [...] documented as of this encounter Care Teams Protocol Officer Relationship Specialty Start Date End Date Laura Mock MD, DMD 1 [facility] [address] [place] [address] [email or web address] du PCP - General Internal Medicine 06/04/21 11/11/23 Pcp, Unknown PCP - General 11/12/23 11/16/23 Laura Mock MD, DMD 1 [facility] [address] [place] [address] [email or web address] du PCP - General Internal Medicine 11/17/23 12/28/23 Pcp, Unknown PCP - General 02/28/24 03/04/24 [place] [address] [address] PCP - General 03/05/24 05/17/24 Laura Mock MD, DMD [address] [address] [email or web address] du PCP - General Internal Medicine 05/18/24 Artie Meehan MD [address] [place] [address] [place] [address] Internal Medicine 10/26/17 04/23/22 Rina Swenson MD [address] [place] [address] [place] [address] Psychiatry 07/09/17 Laura Mock MD, DMD [address] [address] [email or web address] du Partners Attributed Provider 09/01/21 07/03/23 Laura Mock MD, DMD [address] [address] [email or web address] Insurance Assigned Provider 05/31/23 03/01/24 Jakob Bob MD [address] [place] [address]-[address] [place] [address] [email or web address] Cardiology 08/22/23 Jose Cruz MD [address] [place] [address] Cardiology 08/22/23 Laura Mock MD, DMD [address] [address] [email or web address] Partners Attributed Provider 09/01/21 07/03/23 [facility] [phone]. Consulting Provider 08/22/23 CAROLANN GREWAL Connect 12/24/23 03/11/24 Cyril Morales [facility] [place] [address] Nurse Practitioner 02/27/24 documented as of this encounter Additional Source Comments The information contained in this document represents components of the legal health record. It is not the complete legal health record.[facility]
--- OUTSIDE RECORDS SUMMARY | 2024-11-25 14:39 | XMS_ITS | Encounter Summary ---
Author Organization [facility] Address [address] [employer] [facility] [address] [place] [address] Phone Care Team Providers Care Stone Product Fabricator Name Role Phone Rina Swenson MD Unavailable [phone] Laura Mock MD, DMD Primary Car e [...] st Contact Info) Description 12/25/2022 Procedure Pass [address] [address] Social History Tobacco Use Types Packs/Day Years [...] Description 01/05/2025 11:00 AM EST Pre-Admission Testing [address] [address] Irineo Ruff MD [address] [place] [address] WALI@[facility] 01/10/2025 Procedure Pass [facility] Endoscopy Department [address] [place] [address] 01/10/2025 7:30 AM EST Hospital Encounter [facility] Endoscopy Department [address] [place] [address] Irineo Ruff MD [address] [place] [address] WALI@[facility] 01/10/2025 7:30 AM EST - 01/10/2025 8:15 AM EST Surgery [facility] Endoscopy Department [address] [place] [address] Irineo Ruff MD [address] [place] [address] WALI@[facility] COLONOSCOPY 01/31/2025 1:00 PM EST Office Visit [facility] Cardiovascular Medicine [address] [facility], 5th Floor, [address] [place] [address] Karena Betancur MD 55 [facility] [address] [place] [address] [email or web address] Scheduled Procedures Name Priority Associated Diagnoses [...] as of this encounter Care Teams Stone Product Fabricator Relationship Specialty Start Date End Date Laura Mock MD, DMD [address] [address] [email or web address] PCP - General Internal Medicine 06/04/21 11/11/23 Pcp, Unknown PCP - General 11/12/23 11/16/23 Laura Mock MD, DMD 1 [facility] [address] [place] [address] [email or web address] PCP - General Internal Medicine 11/17/23 12/28/23 Pcp, Unknown PCP - General 02/28/24 03/04/24 [place] [address] [address] PCP - General 03/05/24 05/17/24 Laura Mock MD, DMD [address] [address] [email or web address] du PCP - General Internal Medicine 05/18/24 Rina Swenson MD Psychiatry 07/09/17 Laura Mock MD, DMD [address] [address] [email or web address] Partners Attributed Provider 09/01/21 07/03/23 Laura Mock MD, DMD [address] [address] [email or web address] du Insurance Assigned Provider 05/31/23 03/01/24 Jakob Bob MD [facility] [place] [address] [email or web address] Cardiology 08/22/23 Jose Cruz MD [address] [place] [address], [address] [place] [address] Cardiology 08/22/23 Laura Mock MD, DMD [address] [address] [email or web address] Partners Attributed Provider 09/01/21 07/03/23 [facility] [phone]. Consulting Provider 08/22/23 [facility] Connect 12/24/23 03/11/24 Cyril Morales [facility] [place] [address] Nurse Practitioner 02/27/24 documented as of this encounter Additional Source Comments The information contained in this document represents components of the legal health record. It is not the complete legal health record.[facility]
--- OUTSIDE RECORDS SUMMARY | 2024-11-25 14:39 | XMS_ITS | Encounter Summary ---
Author Organization [facility] Address [facility] [address] [place] [address] Phone Care Team Providers Care Saddle Stitching Machine Operator Name Role Phone Artie Meehan MD Primary Care Provider Artie Meehan MD Unavailable [phone] Rina Swenson MD Unavailable Laura Mock MD, DMD Primary Car e Provider Laura Mock MD, DMD Unavailable Laura Mock MD, DMD Unavailable Jakob Bob MD Unavailable [phone] Jose Cruz MD Unavailable Laura Mock MD, DMD Unavailable Pcp, Unknown Primary Care Provider UnavailLaura Ascencio MD, DMD Primary Car e Provider Pcp, Unknown Primary Care Provider UnavailNicole Arguello MD Primary Care Provide r Laura Mock MD, DMD Primary Car e Provider Encounter Details Date Type Department Care Team (Late st Contact Info) Description 09/06/2020 Procedure Pass [facility] [place] [address] [place] [address] Social History Tobacco Use Types Packs/Day Years [...] Description 01/05/2025 11:00 AM EST Pre-Admission Testing [address] [place] [address] Irineo Ruff MD [address] [place] [address] [place] [address] [email or web address]@[email or web address] 01/10/2025 Procedure Pass [facility] Endoscopy Department [address] [place] [address] 01/10/2025 7:30 AM EST Hospital Encounter [facility] Endoscopy Department [address] [place] [address] Irineo Ruff MD [address] [place] [address] WALI@[email or web address] 01/10/2025 7:30 AM EST - 01/10/2025 8:15 AM EST Surgery [facility] Endoscopy Department [address] [place] [address] Irineo Ruff MD [address] [place] [address] WALI@[facility] COLONOSCOPY 01/31/2025 1:00 PM EST Office Visit [facility] Cardiovascular Medicine [address] [place] [address], 5th [address], [address] [place] [address] Karena Betancur MD [address] [facility] [address] [place] [address] [email or web address] Scheduled Procedures Name Priority Associated Diagnoses [...] documented as of this encounter Care Teams Saddle Stitching Machine Operator Relationship Specialty Start Date End Date Artie Meehan MD [address] [place] [address] [place] [address] PCP - General Internal Medicine 10/26/17 06/03/21 Laura Mock MD, DMD [address] [address] [email or web address] du PCP - General Internal Medicine 06/04/21 11/11/23 Pcp, Unknown PCP - General 11/12/23 11/16/23 Laura Mock MD, DMD [address] [address] [email or web address] PCP - General Internal Medicine 11/17/23 12/28/23 Pcp, Unknown PCP - General 02/28/24 03/04/24 [place] [address] [address] PCP - General 03/05/24 05/17/24 Laura Mock MD, DMD [address] [address] [email or web address] du PCP - General Internal Medicine 05/18/24 Artie Meehan MD [address] [place] [address] Dr Dior [facility] [place] [address] Internal Medicine 10/26/17 04/23/22 Rina Swenson MD [address] [place] [address] Dr Dior [facility] [place] [address] Psychiatry 07/09/17 Laura Mock MD, DMD [address] [address] [email or web address] du Partners Attributed Provider 09/01/21 07/03/23 Laura Mock MD, DMD [address] [address] [email or web address] du Insurance Assigned Provider 05/31/23 03/01/24 Jakob Bob MD [address] [place] [address] [address] [place] [address] [email or web address] Cardiology 08/22/23 Jose Cruz MD [address] [place] [address], [address] [place] [address] Cardiology 08/22/23 Laura Mock MD, DMD [address] [address] [email or web address] Partners Attributed Provider 09/01/21 07/03/23 [facility] [phone]. Consulting Provider 08/22/23 [facility] Connect 12/24/23 03/11/24 Cyril Morales [address] [place] [address] Nurse Practitioner 02/27/24 documented as of this encounter Additional Source Comments The information contained in this document represents components of the legal health record. It is not the complete legal health record.[facility]
--- OUTSIDE RECORDS SUMMARY | 2024-11-25 14:39 | XMS_ITS | Encounter Summary ---
Author Organization [facility] Address [address] [place] [address] Phone Care Team Providers Care Public Health Sanitarian Technician Name Role Phone Rina Swenson MD Unavailable Laura Mock MD, DMD Primary Car e Provider Laura Mock MD, DMD Unavailable Jakob Bob MD Unavailable [phone] Jose Cruz MD Unavailable Pcp, Unknown Primary Care Provider UnavailLaura Ascencio MD, DMD Primary Car e Provider Pcp, Unknown Primary Care Provider UnavailNicole Arguello MD Primary Care Provide r Laura Mock MD, DMD Primary Car e Provider Encounter Details Date Type Department Care Team (Late st Contact Info) Description 08/26/2023 Procedure Pass [facility] Endoscopy Department [address] [place] [address] Social History Tobacco Use Types Packs/Day [...] Description 01/05/2025 11:00 AM EST Pre-Admission Testing [address] 2nd [place] [address] Irineo Ruff MD [address] [place] [address] [email or web address] 01/10/2025 Procedure Pass [facility] Endoscopy Department [address] [place] [address] 01/10/2025 7:30 AM EST Hospital Encounter [facility] Endoscopy Department [address] [place] [address] Irineo Ruff MD [address] [place] [address] [email or web address] 01/10/2025 7:30 AM EST - 01/10/2025 8:15 AM EST Surgery [facility] Endoscopy Department [address] [place] [address] Irineo Ruff MD [address] [place] [address] [email or web address] COLONOSCOPY 01/31/2025 1:00 PM EST Office [place] [facility] [place] [address] [place] [address], 5th Floor, [address] [place] [address] Karena Betancur MD [address] [facility] [address] [place] [address] [email or web address] Scheduled Procedures Name Priority Associated [...] documented as of this encounter Care Teams Public Health Sanitarian Technician Relationship Specialty Start Date End Date Laura Mock MD, DMD 1 [facility] [address] [place] [address] [email or web address] du PCP - General Internal Medicine 06/04/21 11/11/23 Pcp, Unknown PCP - General 11/12/23 11/16/23 Laura Mock MD, DMD 1 [facility] [address] [place] [address] [email or web address] du PCP - General Internal Medicine 11/17/23 12/28/23 Pcp, Unknown PCP - General 02/28/24 03/04/24 Nicole Newell MD [address] [place] [address] PCP - General 03/05/24 05/17/24 Laura Mock MD, DMD 1 [facility] [address] [place] [address] [email or web address] so PCP - General Internal Medicine 05/18/24 Rina Swenson MD Psychiatry 07/09/17 Laura Mock MD, DMD [address] [address] [email or web address] so Insurance Assigned Provider 05/31/23 03/01/24 Jakob Bob MD [address] [place] [address] [email or web address] Cardiology 08/22/23 Jose Cruz MD [address] [place] [address], [address] [place] [address] [email or web address] Cardiology 08/22/23 [facility] [phone]. Consulting Provider 08/22/23 [facility] Connect 12/24/23 03/11/24 Cyril Morales [address] [place] [address] Nurse Practitioner 02/27/24 documented as of this encounter Additional Source Comments The information contained in this document represents components of the legal health record. It is not the complete legal health record.[facility]
--- OUTSIDE RECORDS SUMMARY | 2024-11-25 14:39 | XMS_ITS | Encounter Summary ---
Author Organization [facility] Address [address] [place] [address] [place] [address] Phone Care Team Providers Care Creative Services Coordinator Name Role Phone Rina Swenson MD Unavailable [...] st Contact Info) Description 08/08/2022 Anti-coag visit [facility] Anticoagulation Clinic [address] [place] [address] [phone] Kenyatta [email or web address] Social History Tobacco Use Types Packs/Day Years [...] Description 01/05/2025 11:00 AM EST Pre-Admission Testing [address] [place] [address] Irineo Ruff MD [address] [place] [address] [email or web address]@[facility] 01/10/2025 Procedure Pass [facility] Endoscopy Department [address] [place] [address] 01/10/2025 7:30 AM EST Hospital Encounter [facility] Endoscopy Department [address] [place] [address] Irineo Ruff MD [address] [place] [address] WALI@[facility] 01/10/2025 7:30 AM EST - 01/10/2025 8:15 AM EST Surgery [facility] Endoscopy Department [address] [place] [address] Irineo Ruff MD 75 [facility] [place] [address] [email or web address] COLONOSCOPY 01/31/2025 1:00 PM EST Office Visit [facility] Cardiovascular Medicine 32 [facility], 5th Floor, [address] [place] [address] Karena Betancur MD 55 [facility] [address] [place] [address] [email or web address] Scheduled Procedures Name Priority [...] documented as of this encounter Care Teams Creative Services Coordinator Relationship Specialty Start Date End Date Laura Mock MD, DMD [address] [address] [email or web address] PCP - General Internal Medicine 06/04/21 11/11/23 Pcp, Unknown PCP - General 11/12/23 11/16/23 Laura Mock MD, DMD 1 [facility] [address] [place] [address] [email or web address] PCP - General Internal Medicine 11/17/23 12/28/23 Pcp, Unknown PCP - General 02/28/24 03/04/24 [place] [address] [address] PCP - General 03/05/24 05/17/24 Laura Mock MD, DMD [address] [address] [email or web address] du PCP - General Internal Medicine 05/18/24 Rina Swenson MD Psychiatry 07/09/17 Laura Mock MD, DMD [address] [address] [email or web address] du Partners Attributed Provider 09/01/21 07/03/23 Laura Mock MD, DMD [address] [address] [email or web address] du Insurance Assigned Provider 05/31/23 03/01/24 Jakob Bob MD [address] [place] [address] [place] [address] [email or web address] Cardiology 08/22/23 Jose Cruz MD [address] [place] [address], [address] [place] [address] Cardiology 08/22/23 Laura Mock MD, DMD [address] [address] [email or web address] Partners Attributed Provider 09/01/21 07/03/23 [facility] [phone]. Consulting Provider 08/22/23 [facility] Connect 12/24/23 03/11/24 Cyril Morales [facility] [place] [address] Nurse Practitioner 02/27/24 documented as of this encounter Additional Source Comments The information contained in this document represents components of the legal health record. It is not the complete legal health record.[facility]
--- OUTSIDE RECORDS SUMMARY | 2024-11-25 14:40 | XMS_ITS | Encounter Summary ---
Author Organization [facility] Address [facility] [employer] [address] [address] Phone Care Team Providers Care Cage Loader Name Role Phone Artie Meehan MD Unavailable [...] Description 01/05/2025 11:00 AM EST Pre-Admission Testing [facility] 45 [facility] 2nd [place] [address] Irineo Ruff MD [address] [place] [address] [email or web address]@[email or web address] 01/10/2025 Procedure Pass [facility] Endoscopy Department [address] [place] [address] 01/10/2025 7:30 AM EST Hospital Encounter [facility] Endoscopy Department [address] [place] [address] Irineo Ruff MD [address] [place] [address] [email or web address]@[email or web address] 01/10/2025 7:30 AM EST - 01/10/2025 8:15 AM EST Surgery [facility] Endoscopy Department [address] [place] [address] Irineo Ruff MD [address] [place] [address] WALI@[facility] COLONOSCOPY 01/31/2025 1:00 PM EST Office Visit [facility] Cardiovascular Medicine 32 [facility], 5th Floor, [address] [place] [address] Karena Betancur MD [address] [address] [email or web address] Scheduled Procedures Name Priority Associated Diagnoses Date/Ti [...] documented as of this encounter Care Teams Cage Loader Relationship Specialty Start Date End Date Laura Mock MD, DMD [address] [place] [address] [email or web address] PCP - General Internal Medicine 06/04/21 11/11/23 Pcp, Unknown PCP - General 11/12/23 11/16/23 Laura Mock MD, DMD [address] [place] [address] [email or web address] du PCP - General Internal Medicine 11/17/23 12/28/23 Pcp, Unknown PCP - General 02/28/24 03/04/24 Nicole Newell MD [address] [place] [address] PCP - General 03/05/24 05/17/24 Laura Mock MD, DMD 1 [address] [place] [address] [email or web address] du PCP - General Internal Medicine 05/18/24 Artie Meehan MD [address] [place] [address] Dr [place] [address] Internal Medicine 10/26/17 04/23/22 Rina Swenson MD [address] [place] [address] [place] [address] Psychiatry 07/09/17 Laura Mock MD, DMD [address] [address] [email or web address] Partners Attributed Provider 09/01/21 07/03/23 Laura Mock MD, DMD [address] [address] [email or web address] du Insurance Assigned Provider 05/31/23 03/01/24 Jakob Bob MD [address] [place] [address] [email or web address] Cardiology 08/22/23 Jose Cruz MD [address] [place] [address] Cardiology 08/22/23 Laura Mock MD, DMD [address] [address] [email or web address] du Partners Attributed Provider 09/01/21 07/03/23 [facility] [phone]. Consulting Provider 08/22/23 CAROLANN GREWAL Connect 12/24/23 03/11/24 Cyril Morales [address] [place] [address] Nurse Practitioner 02/27/24 documented as of this encounter Additional Source Comments The information contained in this document represents components of the legal health record. It is not the complete legal health record.[facility]
--- OUTSIDE RECORDS SUMMARY | 2024-11-25 14:40 | XMS_ITS | Encounter Summary ---
Author Organization [facility] Address [address] [place] [address] [place] [address] Phone Care Team Providers Care Steamfitter Name Role Phone Artie Meehan MD Unavailable [...] Info) Description 09/17/2021 Procedure Pass [facility] [address] [place] [address] Social History Tobacco Use Types Packs/Day Years [...] Description 01/05/2025 11:00 AM EST Pre-Admission Testing [facility] 2nd [place] [address] Irineo Ruff MD [address] [place] [address] [email or web address] 01/10/2025 Procedure Pass [facility] Endoscopy Department [address] [place] [address] 01/10/2025 7:30 AM EST Hospital Encounter [facility] Endoscopy Department [address] [place] [address] Irineo Ruff MD [address] [place] [address] [email or web address]@[email or web address] 01/10/2025 7:30 AM EST - 01/10/2025 8:15 AM EST Surgery [facility] Endoscopy Department [address] [place] [address] Irineo Ruff MD [address] [place] [address] [place] [address] [email or web address] COLONOSCOPY 01/31/2025 1:00 PM EST Office Visit [facility] Cardiovascular Medicine 32 [facility], 5th Floor, [address] [place] [address] Karena Betancur MD [address] [place] [address] [email or web address] Scheduled Procedures Name [...] documented as of this encounter Care Teams Steamfitter Relationship Specialty Start Date End Date Laura Mock MD, DMD [address] [address] [email or web address], [email or web address] du PCP - General Internal Medicine 06/04/21 11/11/23 Pcp, Unknown PCP - General 11/12/23 11/16/23 Laura Mock MD, DMD [address] [address] [email or web address], [facility]. du PCP - General Internal Medicine 11/17/23 12/28/23 Pcp, Unknown PCP - General 02/28/24 03/04/24 Nicole Newell MD [address] [place] [address] [id number] PCP - General 03/05/24 05/17/24 Laura Mock MD, DMD [address] [address] [email or web address]. du PCP - General Internal Medicine 05/18/24 Artie Meehan MD [address] [place] [address] [place] [address] Internal Medicine 10/26/17 04/23/22 Rina Swenson MD [address] [place] [address] [place] [address] Psychiatry 07/09/17 Laura Mock MD, DMD [address] [address] [email or web address], [facility]. du Partners Attributed Provider 09/01/21 07/03/23 Laura Mock MD, DMD [address] [address] [email or web address], [facility]. du Insurance Assigned Provider 05/31/23 03/01/24 Jakob Bob MD [address] [place] [address] [place] [address] [email or web address] Cardiology 08/22/23 Jose Cruz MD [address] [place] [address], [address] [place] [address] Cardiology 08/22/23 Laura Mock MD, DMD [address] [address] [email or web address] Partners Attributed Provider 09/01/21 07/03/23 [facility] [phone]. Consulting Provider 08/22/23 [facility] Connect 12/24/23 03/11/24 Cyril Morales [facility] [place] [address] Nurse Practitioner 02/27/24 documented as of this encounter Additional Source Comments The information contained in this document represents components of the legal health record. It is not the complete legal health record.[facility]
--- OUTSIDE RECORDS SUMMARY | 2024-11-25 14:40 | XMS_ITS | Encounter Summary ---
Author Organization [facility] Address [address] [facility] [address] [place] [address] Phone Care Team Providers Care Convention Manager Name Role Phone Rina Swenson MD Unavailable Laura Mock MD, DMD Unavailable Jakob Bob MD Unavailable Jose Cruz MD Unavailable Laura Mock MD, DMD Primary Car e Provider Pcp, Unknown Primary Care Provider Unavailmarco e Nicole Newell MD Primary Care Provide r Laura Mock MD, DMD Primary Car e Provider Encounter Details Date Type Department Care Team (Late st Contact Info) Description 12/04/2023 Procedure Pass [facility] Periop [address] [place] [address] Social History Tobacco Use Types Packs/Day Years [...] Description 01/05/2025 11:00 AM EST Pre-Admission Testing [address] [address] Irineo Ruff MD [address] [place] [address] [email or web address] 01/10/2025 Procedure Pass [facility] Endoscopy Department [address] [place] [address] 01/10/2025 7:30 AM EST Hospital Encounter [facility] Endoscopy Department [address] [place] [address] Irineo Ruff MD [address] [place] [address] [email or web address]@[email or web address] 01/10/2025 7:30 AM EST - 01/10/2025 8:15 AM EST Surgery [facility] Endoscopy Department [address] [place] [address] Irineo Ruff MD 75 [facility] [place] [address] [email or web address] COLONOSCOPY 01/31/2025 1:00 PM EST Office Visit [facility] Cardiovascular Medicine 32 [facility], 5th Floor, [address] [place] [address] Karena Betancur MD 55 [facility] [address] [place] [address] [email or web address] Scheduled Procedures Name Priority Associated Diagnoses Date/Ti me COLONOSCOPY Abnormal colonoscopy 01/10/2025 7:30 AM EST documented as of this encounter Visit Diagnoses Not on filedocumented in this encounter Additional Health Concerns Assessment Noted Time PHQ-9 Depression Total Score: 17 04/24/ 023 11:28 AM EST PHQ-2 Depression Total Score: 2 10/10/19 23 11:28 AM EDT documented as of this encounter Care Teams Convention Manager Relationship Specialty Start Date End Date Laura Mock MD, DMD [address] [address] [email or web address] PCP - General Internal Medicine 11/17/23 12/28/23 Pcp, Unknown PCP - General 02/28/24 03/04/24 [place] [address] [address] PCP - General 03/05/24 05/17/24 Laura Mock MD, DMD [address] [address] [email or web address] PCP - General Internal Medicine 05/18/24 Rina Swenson MD Psychiatry 07/09/17 Laura Mock MD, DMD 1 [facility] [address] [place] [address] [email or web address] du Insurance Assigned Provider 05/31/23 03/01/24 Jakob Bob MD 75 [facility] [place] [address] [email or web address] Cardiology 08/22/23 Jose Cruz MD 22 [facility] [address] [place] [address] Cardiology 08/22/23 [facility] [phone]. Consulting Provider 08/22/23 [facility] Connect 12/24/23 03/11/24 Cyril Morales [address] [place] [address] Nurse Practitioner 02/27/24 documented as of this encounter Additional Source Comments The information contained in this document represents components of the legal health record. It is not the complete legal health record.[facility]
--- OUTSIDE RECORDS SUMMARY | 2024-11-25 14:40 | XMS_ITS | Encounter Summary ---
Author Organization [facility] Address [facility] [employer] [address] [address] Phone Care Team Providers Care Computer Systems Engineer Name Role Phone Rina Swenson MD Unavailable Laura Mock MD, DMD Primary Car e Provider Laura Mock MD, DMD Unavailable Laura Mock MD, DMD Unavailable Jakob Bob MD Unavailable Jose Cruz MD Unavailable [phone] Laura Mock MD, DMD Unavailable Pcp, Unknown [...] 01/05/2025 11:00 AM EST Pre-Admission Testing [address] [address] Irineo Ruff MD [address] [place] [address] [email or web address]@[facility] 01/10/[address] [facility] Endoscopy Department [address] [place] [address] 01/10/2025 7:30 AM EST Hospital Encounter [facility] Endoscopy Department [address] [place] [address] Irineo Ruff MD [address] [place] [address] WALI@[facility] 01/10/2025 7:30 AM EST - 01/10/2025 8:[address] [facility] Endoscopy Department [address] [place] [address] Irineo Ruff MD [address] [place] [address] WALI@[facility] COLONOSCOPY 01/31/2025 1:00 PM EST Office Visit [facility] Cardiovascular Medicine 32 [facility], 5th Floor, [address] [place] [address] Karena Betancur MD 55 [facility] [address] [place] [address] FRANK@[email or web address] Scheduled Procedures Name Priority [...] documented as of this encounter Care Teams Computer Systems Engineer Relationship Specialty Start Date End Date Laura Mock MD, DMD [address] [address] [email or web address] du PCP - General Internal Medicine 06/04/21 11/11/23 Pcp, Unknown PCP - General 11/12/23 11/16/23 Laura Mock MD, DMD [address] [address] [email or web address] PCP - General Internal Medicine 11/17/23 12/28/23 Pcp, Unknown PCP - General 02/28/24 03/04/24 Nicole Newell MD [address] [place] [address] [phone] PCP - General 03/05/24 05/17/24 Laura Mock MD, DMD [address] [address] [email or web address] du PCP - General Internal Medicine 05/18/24 Rina Swenson MD Psychiatry 07/09/17 Laura Mock MD, DMD [address] [address] [email or web address] Partners Attributed Provider 09/01/21 07/03/23 Laura Mock MD, DMD [address] [address] [email or web address] du Insurance Assigned Provider 05/31/23 03/01/24 Jakob Bob MD 75 [facility] [place] [address] [email or web address] Cardiology 08/22/23 Jose Cruz MD [address] [place] [address] Cardiology 08/22/23 Laura Mock MD, DMD [address] [address] [email or web address] Partners Attributed Provider 09/01/21 07/03/23 [facility] [phone]. Consulting Provider 08/22/23 [facility] Connect 12/24/23 03/11/24 Cyril Morales [address] [place] [address] Nurse Practitioner 02/27/24 documented as of this encounter Additional Source Comments The information contained in this document represents components of the legal health record. It is not the complete legal health record.[facility]
--- OUTSIDE RECORDS SUMMARY | 2024-11-25 14:40 | XMS_ITS | Encounter Summary ---
Author Organization [facility] Address [address] [place] [address] Phone Care Team Providers Care Pattern Hand Name Role Phone Rina Swenson MD Unavailable Jakob Bob MD Unavailable Jose Cruz MD Unavailable [phone] Laura Mock MD, DMD Primary Car e Provider Reason for Visit * Reason Onset Date Comments Colonoscopy 10/13/2024 Encounter Details Date Type Department Care Team (Late st Contact Info) Description 10/13/2024 Telephone [facility] [address] 2nd [place] [address] Laura Mock MD, DMD 1 [facility] [address] [place] [address] [email or web address] Colonoscopy Social History Tobacco Use Types Packs/Day [...] EST [facility] Duncan [address] [address] Irineo Ruff MD 75 [facility], [place] [address] [email or web address] 01/10/2025 Procedure Pass [facility] Endoscopy Department [address] [place] [address] 01/10/2025 7:30 AM EST Hospital Encounter [facility] Endoscopy Department [address] [place] [address] Irineo Ruff MD 75 [facility] [place] [address] [email or web address] 01/10/2025 7:30 AM EST - 01/10/2025 8:15 AM EST Surgery [facility] Endoscopy Department [address] [place] [address] Irineo Ruff MD 75 [facility] [place] [address] [email or web address] COLONOSCOPY 01/31/2025 1:00 PM EST Office Visit [facility] Cardiovascular Medicine 32 [facility], 5th Floor, [address] [place] [address] Karena Betancur MD [address] [address] [email or web address] Scheduled Procedures Name Priority Associated Diagnoses Date/Ti me COLONOSCOPY Abnormal colonoscopy 01/10/2025 7:30 AM EST documented as of this encounter Visit Diagnoses Not on filedocumented in this encounter Additional Health Concerns Assessment Noted Time PHQ-9 Depression Total Score: 17 04/24/ 023 11:28 AM EST PHQ-2 Depression Total Score: 2 10/10/19 23 11:28 AM EDT documented as of this encounter Care Teams Pattern Hand Relationship Specialty Start Date End Date Laura Mcok MD, DMD 1 [facility] [address] [place] [address] [email or web address] PCP - General Internal Medicine 05/18/24 Rina Swenson MD Psychiatry 07/09/17 Jakob Bob MD [address] [place] [address] [address] [place] [address] [email or web address] Cardiology 08/22/23 Jose Cruz MD [address] [place] [address], [address] [place] [address] Cardiology 08/22/23 [facility] [phone]. Consulting Provider 08/22/23 Cyril Morales [address] [place] [phone] Nurse Practitioner 02/27/24 documented as of this encounter Additional Source Comments The information contained in this document represents components of the legal health record. It is not the complete legal health record.[facility]
--- OUTSIDE RECORDS SUMMARY | 2024-11-25 14:40 | XMS_ITS | Encounter Summary ---
Author Organization [facility] Address [address] [place] [address] [place] [address] Phone Care Team Providers Care Senior Care Manager Name Role Phone Rina Swenson [...] st Contact Info) Description 10/26/2022 Anti-coag visit [facility] Anticoagulation Clinic 75 [place], [place] [phone] Melvin Stewart, [facility] [address] [place] [address] [email or web address] Social History Tobacco Use Types Packs/Day [...] 01/05/2025 11:00 AM EST Pre-Admission Testing [facility] 45 [facility] 2nd [place] [address] Irineo Ruff MD [address] [place] [address] [place] [address] [email or web address]@[email or web address] 01/10/2025 Procedure Pass [facility] Endoscopy Department [address] [place] [address] 01/10/2025 7:30 AM EST Hospital Encounter [facility] Endoscopy Department [address] [place] [address] Irineo Ruff MD [address] [place] [address] [place] [address] [email or web address]@[email or web address] 01/10/2025 7:30 AM EST - 01/10/2025 8:15 AM EST Surgery [facility] Endoscopy Department 75 [place] [address] Irineo Ruff MD 75 [facility] [place] [address] [email or web address]@[email or web address] COLONOSCOPY 01/31/2025 1:00 PM EST Office [place] [facility] [place] 32 [facility], 5th Floor, [address] [place] [address] Karena Betancur MD 55 [facility] [address] [place] [address] FRANK@[email or web address] Scheduled Procedures Name Priority [...] documented as of this encounter Care Teams Senior Care Manager Relationship Specialty Start Date End Date Laura Mock MD, DMD 1 [facility] 225 [place] [address] [email or web address] PCP - General Internal Medicine 06/04/21 11/11/23 Pcp, Unknown PCP - General 11/12/23 11/16/23 Laura Mock MD, DMD 1 [facility] 225 [place] [address] [email or web address] PCP - General Internal Medicine 11/17/23 12/28/23 Pcp, Unknown PCP - General 02/28/24 03/04/24 [place] Newell [place] [address] [place] [address] PCP - General 03/05/24 05/17/24 Laura Mock MD, DMD [address] [address] [email or web address] PCP - General Internal Medicine 05/18/24 Rina Swenson MD Psychiatry 07/09/17 Laura Mock MD, DMD [address] [address] [email or web address] Partners Attributed Provider 09/01/21 07/03/23 Laura Mock MD, DMD [address] [address] [email or web address] Insurance Assigned Provider 05/31/23 03/01/24 Jakob Bob MD [address] [place] [address] [place] [address] [email or web address] Cardiology 08/22/23 Jose Cruz MD [address] [place] [address], [address] [place] [address] Cardiology 08/22/23 Laura Mock MD, DMD 1 [facility] [address] [place] [address] [email or web address]. [email or web address] [employer] Attributed Provider 09/01/21 07/03/23 [facility] [phone]. Consulting Provider 08/22/23 [facility] Connect 12/24/23 03/11/24 Cyril Morales [facility] [place] [address] Nurse Practitioner 02/27/24 documented as of this encounter Additional Source Comments The information contained in this document represents components of the legal health record. It is not the complete legal health record.[facility]
--- OUTSIDE RECORDS SUMMARY | 2024-11-25 14:40 | XMS_ITS | Encounter Summary ---
Author Organization [facility] Address [facility] [address] [place] [address] Phone Care Team Providers Care Investigator Fraud Name Role Phone Artie Meehan MD Unavailable Rina Swenson MD Unavailable Laura Mock MD, DMD Primary Car e Provider Laura Mock MD, DMD Unavailable Laura Mock MD, DMD Unavailable Jakob Bob MD Unavailable [phone] Jose Cruz MD Unavailable Laura Mock MD, DMD Unavailable Pcp, Unknown Primary Care Provider UnavailLaura Ascencio MD, DMD Primary Car e Provider Pcp, Unknown Primary Care Provider UnavailNicole Arguello MD Primary Care Provide r Laura Mock MD, DMD Primary Car e Provider Encounter Details Date Type Department Care Team (Late st Contact Info) Description 08/07/2021 Anti-coag visit [facility] Anticoagulation Clinic [address] [place] [address] Kenyatta Gamez, PharmD [email or web address] Social History Tobacco Use Types Packs/Day [...] Description 01/05/2025 11:00 AM EST Pre-Admission Testing [address] 2nd [place] [address] Irineo Ruff MD [address] [place] [address] [place] [address] [email or web address] 01/10/2025 Procedure Pass [facility] Endoscopy Department [address] [place] [address] 01/10/2025 7:30 AM EST Hospital Encounter [facility] Endoscopy Department [address] [place] [address] Irineo Ruff MD [address] [place] [address] [email or web address]@[email or web address] 01/10/2025 7:30 AM EST - 01/10/2025 8:15 AM EST Surgery [facility] Endoscopy Department [address] [place] [address] Irineo Ruff MD [address] [place] [address] WALI@[facility] COLONOSCOPY 01/31/2025 1:00 PM EST Office [place] [facility] [place] Medicine [address] [place] [address], 5th Floor, [address] [place] [address] Karena Betancur MD [address] [place] [address] [email or web address] Scheduled Procedures Name Priority Associated [...] documented as of this encounter Care Teams Investigator Fraud Relationship Specialty Start Date End Date Laura Mock MD, DMD 1 [facility] 225 [place] [address] [email or web address] du PCP - General Internal Medicine 06/04/21 11/11/23 Pcp, Unknown PCP - General 11/12/23 11/16/23 Laura Mock MD, DMD 1 [facility] 225 [place] [address] [email or web address] du PCP - General Internal Medicine 11/17/23 12/28/23 Pcp, Unknown PCP - General 02/28/24 03/04/24 [place] [address] [address] PCP - General 03/05/24 05/17/24 Laura Mock MD, DMD [address] [address] [email or web address] du PCP - General Internal Medicine 05/18/24 Artie Meehan MD [address] [place] [address] [address] [place] [address] Internal Medicine 10/26/17 04/23/22 Rina Swenson MD [address] [place] [address] [place] [address] Psychiatry 07/09/17 Laura Mock MD, DMD [address] [address] [email or web address] Partners Attributed Provider 09/01/21 07/03/23 Laura Mock MD, DMD [address] [address] [email or web address] du Insurance Assigned Provider 05/31/23 03/01/24 Jakob Bob MD [address] [place] [address] [email or web address] Cardiology 08/22/23 Jose Cruz MD [address] [place] [address] Cardiology 08/22/23 Laura Mock MD, DMD [address] [address] [email or web address]. du Partners Attributed Provider 09/01/21 07/03/23 [facility] [phone]. Consulting Provider 08/22/23 [facility] Connect 12/24/23 03/11/24 Cyril Morales [address] [place] [address] Nurse Practitioner 02/27/24 documented as of this encounter Additional Source Comments The information contained in this document represents components of the legal health record. It is not the complete legal health record.[facility]
--- OUTSIDE RECORDS SUMMARY | 2024-11-25 14:40 | XMS_ITS | Encounter Summary ---
Author Organization [facility] Address [facility] [employer] [address] [address] Phone Care Team Providers Care Solder Cream Maker Name Role Phone Rina Swenson MD Unavailable [...] Description 01/05/2025 11:00 AM EST Pre-Admission Testing [address] [address] Irineo Ruff MD [address] [place] [address] [email or web address]@[facility] 01/10/2025 Procedure Pass [facility] Endoscopy Department [address] [place] [address] 01/10/2025 7:30 AM EST Hospital Encounter [facility] Endoscopy Department [address] [place] [address] Irineo Ruff MD [address] [place] [address] WALI@[facility] 01/10/2025 7:30 AM EST - 01/10/2025 8:15 AM EST Surgery [facility] Endoscopy Department [address] [place] [address] Irineo Ruff MD [address] [place] [address] WALI@[facility] COLONOSCOPY 01/31/2025 1:00 PM EST Office Visit [facility] Cardiovascular Medicine 32 [facility], 5th Floor, [address] [place] [address] Karena Betancur MD 55 [facility] [address] [place] [address] FRANK@[email or web address] Scheduled Procedures Name Priority Associated Diagnoses [...] documented as of this encounter Care Teams Solder Cream Maker Relationship Specialty Start Date End Date Laura Mock MD, DMD [address] [address] [email or web address] du PCP - General Internal Medicine 06/04/21 11/11/23 Pcp, Unknown PCP - General 11/12/23 11/16/23 Laura Mock MD, DMD [address] [address] [email or web address]. [email or web address] PCP - General Internal Medicine 11/17/23 12/28/23 Pcp, Unknown PCP - General 02/28/24 03/04/24 Nicole Newell MD [address] [place] [address] [id number] PCP - General 03/05/24 05/17/24 Laura Mock MD, DMD [address] [address] [email or web address] du PCP - General Internal Medicine 05/18/24 Rina Swenson MD Psychiatry 07/09/17 Laura Mock MD, DMD [address] [address] [email or web address]. du Partners Attributed Provider 09/01/21 07/03/23 Laura Mock MD, DMD [address] [address] [email or web address] du Insurance Assigned Provider 05/31/23 03/01/24 Jakob Bob MD 75 [facility] [place] [address] [email or web address] Cardiology 08/22/23 Jose Cruz MD [address] [place] [address] Cardiology 08/22/23 Laura Mock MD, DMD [address] [address] [email or web address] Partners Attributed Provider 09/01/21 07/03/23 [facility] [phone]. Consulting Provider 08/22/23 [facility] Connect 12/24/23 03/11/24 Cyril Morales [address] [place] [address] Nurse Practitioner 02/27/24 documented as of this encounter Additional Source Comments The information contained in this document represents components of the legal health record. It is not the complete legal health record.[facility]
--- OUTSIDE RECORDS SUMMARY | 2024-11-25 14:40 | XMS_ITS | Encounter Summary ---
Author Organization [facility] Address [address] [place] [address] [place] [address] Phone Care Team Providers Care Rn Perinatal Name Role Phone Rina Swenson MD Unavailable Laura Mock MD, DMD Primary Car e Provider Laura Mock MD, DMD Unavailable Laura Mock MD, DMD Unavailable Jakob Bob MD Unavailable [phone] Jose Cruz MD Unavailable [phone] Laura Mock MD, DMD Unavailable Pcp, Unknown Primary Care Provider UnavailLaura Ascencio MD, DMD Primary Car e Provider Pcp, Unknown Primary Care Provider UnavailNicole Arguello MD Primary Care Provide r Laura Mock MD, DMD Primary Car e Provider Encounter Details Date Type Department Care Team (Late st Contact Info) Description 05/10/2022 Anti-coag visit [facility] Anticoagulation Clinic 75 [place], [place] [phone] [facility] 12[address] [place] [address] [email or web address] Social History Tobacco Use Types Packs/Day [...] Upcoming Encounters Date Type Department Care Team ([facility] st Contact Info) Description 01/05/2025 11:00 AM EST Pre-Admission Testing [address] [address] Irineo Ruff MD [address] [place] [address] WALI@[email or web address] 01/10/2025 Procedure Pass [facility] Endoscopy Department [address] [place] [address] 01/10/2025 7:30 AM EST Hospital Encounter [facility] Endoscopy Department [address] [place] [address] Irineo Ruff MD [address] [place] [address] WALI@[email or web address] 01/10/2025 7:30 AM EST - 01/10/2025 8:15 AM EST Surgery [facility] Endoscopy Department [address] [place] [address] Irineo Ruff MD [address] [place] [address] WALI@[facility] COLONOSCOPY 01/31/2025 1:00 PM EST Office Visit [facility] [place] 32 [facility], 5th Floor, [address] [place] [address] Karena Betancur MD 55 [facility] [address] [place] [address] [email or web address] Scheduled Procedures Name Priority Associated Diagnoses Date/Ti [...] as of this encounter Care Teams Rn Perinatal Relationship Specialty Start Date End Date Laura Mock MD, DMD [address] [address] [email or web address] du PCP - General Internal Medicine 06/04/21 11/11/23 Pcp, Unknown PCP - General 11/12/23 11/16/23 Laura Mock MD, DMD 1 [facility] [address] [place] [address] [email or web address] du PCP - General Internal Medicine 11/17/23 12/28/23 Pcp, Unknown PCP - General 02/28/24 03/04/24 [place] [address] [address] PCP - General 03/05/24 05/17/24 Laura Mock MD, DMD [address] [address] [email or web address] PCP - General Internal Medicine 05/18/24 Rina Swenson MD Psychiatry 07/09/17 Laura Mock MD, DMD [address] [address] [email or web address] du Partners Attributed Provider 09/01/21 07/03/23 Laura Mock MD, DMD [address] [address] [email or web address] du Insurance Assigned Provider 05/31/23 03/01/24 Jakob Bob MD [address] [place] [address] [place] [address] [email or web address] Cardiology 08/22/23 Jose Cruz MD [address] [place] [address] Cardiology 08/22/23 Laura Mock MD, DMD [address] [address] [email or web address]. du Partners Attributed Provider 09/01/21 07/03/23 [facility] [phone]. Consulting Provider 08/22/23 [facility] Connect 12/24/23 03/11/24 Cyril Morales [facility] [place] [address] Nurse Practitioner 02/27/24 documented as of this encounter Additional Source Comments The information contained in this document represents components of the legal health record. It is not the complete legal health record.[facility]
--- OUTSIDE RECORDS SUMMARY | 2024-11-25 14:40 | XMS_ITS | Encounter Summary ---
Author Organization [facility] Address [facility] [email or web address] [address] [address] Phone Care Team Providers Care Bar Machine Operator Name Role Phone Rina Swenson MD Unavailable [phone] Laura Mock MD, DMD Primary Car e [...] 01/05/2025 11:00 AM EST Pre-Admission Testing [facility] 45 [facility] 2nd [place] [address] Irineo Ruff MD [address] [place] [address] WALI@[email or web address] 01/10/2025 Procedure Pass [facility] Endoscopy Department [address] [place] [address] 01/10/2025 7:30 AM EST Hospital Encounter [facility] Endoscopy Department [address] [place] [address] Irineo Ruff MD [address] [place] [address] [place] [address] [email or web address]@[email or web address] 01/10/2025 7:30 AM EST - 01/10/2025 8:15 AM EST Surgery [facility] Endoscopy Department [address] [place] [address] Irineo Ruff MD [address] [place] [address] WALI@[facility] COLONOSCOPY 01/31/2025 1:00 PM EST Office Visit [facility] Cardiovascular Medicine 32 [facility], 5th Floor, [address] [place] [address] Karena Betancur MD [address] [address] [email or web address] [email or web address] Scheduled Procedures Name Priority Associated [...] documented as of this encounter Care Teams Bar Machine Operator Relationship Specialty Start Date End Date Laura Mock MD, DMD [address] [address] [email or web address] du PCP - General Internal Medicine 06/04/21 11/11/23 Pcp, Unknown PCP - General 11/12/23 11/16/23 Laura Mock MD, DMD [address] [address] [email or web address] PCP - General Internal Medicine 11/17/23 12/28/23 Pcp, Unknown PCP - General 02/28/24 03/04/24 [place] [address] [address] PCP - General 03/05/24 05/17/24 Laura Mock MD, DMD [address] [address] [email or web address] du PCP - General Internal Medicine 05/18/24 Rina Swenson MD Psychiatry 07/09/17 Laura Mock MD, DMD [address] [address] [email or web address]. du Partners Attributed Provider 09/01/21 07/03/23 Laura Mock MD, DMD [address] [address] [email or web address] du Insurance Assigned Provider 05/31/23 03/01/24 Jakob Bob MD [address] [place] [address] [email or web address] Cardiology 08/22/23 Jose Cruz MD [address] [place] [address] [email or web address] Cardiology 08/22/23 Laura Mock MD, DMD [address] [address] [email or web address] du Partners Attributed Provider 09/01/21 07/03/23 [facility] [phone]. Consulting Provider 08/22/23 [facility] Connect 12/24/23 03/11/24 Cyril Morales [address] [place] [phone] Nurse Practitioner 02/27/24 documented as of this encounter Additional Source Comments The information contained in this document represents components of the legal health record. It is not the complete legal health record.[facility]
--- OUTSIDE RECORDS SUMMARY | 2024-11-25 14:40 | XMS_ITS | Encounter Summary ---
Author Organization [facility] Address [address] [place] [address] [place] [address] Phone Care Team Providers Care Black Top Paver Operator Name Role Phone Rina Swenson MD [...] st Contact Info) Description 10/29/2022 Anti-coag visit [facility] [address] [place] [address] Catherine Hernández, PharmD [email or web address] Social History Tobacco Use Types [...] Description 01/05/2025 11:00 AM EST Pre-Admission Testing [address] 2nd [place] [address] Irineo Ruff MD [address] [place] [address] [email or web address] 01/10/2025 Procedure Pass [facility] Endoscopy Department [address] [place] [address] 01/10/2025 7:30 AM EST Hospital Encounter [facility] Endoscopy Department [address] [place] [address] Irineo Ruff MD [address] [place] [address] [email or web address] 01/10/2025 7:30 AM EST - 01/10/2025 8:15 AM EST Surgery [facility] Endoscopy Department [address] [place] [address] Irineo Ruff MD 75 [facility], [place] [address] [email or web address] COLONOSCOPY 01/31/2025 1:00 PM EST Office Visit [facility] Cardiovascular Medicine [address], 5th Floor, [address] [place] [address] Karena Betancur MD [address] [facility] [address] [place] [address] FRANK@[email or web address] Scheduled Procedures Name Priority Associated Diagnoses [...] documented as of this encounter Care Teams Black Top Paver Operator Relationship Specialty Start Date End Date Laura Mock MD, DMD [address] [address] [email or web address] PCP - General Internal Medicine 06/04/21 11/11/23 Pcp, Unknown PCP - General 11/12/23 11/16/23 Laura Mock MD, DMD 1 [facility] [address] [place] [address] [email or web address]. du PCP - General Internal Medicine 11/17/23 12/28/23 Pcp, Unknown PCP - General 02/28/24 03/04/24 Nicole Newell MD [address] [place] [address] PCP - General 03/05/24 05/17/24 Laura Mock MD, DMD [address] [address] [email or web address] du PCP - General Internal Medicine 05/18/24 Rina Swenson MD Psychiatry 07/09/17 Laura Mock MD, DMD [address] [address] [email or web address]. du Partners Attributed Provider 09/01/21 07/03/23 Laura Mock MD, DMD [address] [address] [email or web address] du Insurance Assigned Provider 05/31/23 03/01/24 Jakob Bob MD [address] [place] [address] [place] [address] [email or web address] Cardiology 08/22/23 Jose Cruz MD [address] [place] [address] Cardiology 08/22/23 Laura Mock MD, DMD [address] [address] [email or web address]. du Partners Attributed Provider 09/01/21 07/03/23 [facility] [phone]. Consulting Provider 08/22/23 [facility] Connect 12/24/23 03/11/24 Cyril Morales [address] [place] [address] Nurse Practitioner 02/27/24 documented as of this encounter Additional Source Comments The information contained in this document represents components of the legal health record. It is not the complete legal health record.[facility]
--- OUTSIDE RECORDS SUMMARY | 2024-11-25 14:40 | XMS_ITS | Encounter Summary ---
Author Organization [facility] Address [facility] [address] [facility] [address] [place] [address] Phone Care Team Providers Care Special Delivery Clerk Name Role Phone Artie Meehan MD Primary Care Provider Artie Meehan MD Unavailable [phone] Rina Swenson MD Unavailable Laura Mock MD, [...] st Contact Info) Description 05/03/2021 Procedure Pass [facility] [address] [place] [address] Social History Tobacco Use Types Packs/Day Years [...] Description 01/05/2025 11:00 AM EST Pre-Admission Testing [facility] 45 [facility] 2nd [place] [address] Irineo Ruff MD [address] [place] [address] [email or web address] 01/10/2025 Procedure Pass [facility] Endoscopy Department [address] [place] [address] 01/10/2025 7:30 AM EST Hospital Encounter [facility] Endoscopy Department [address] [place] [address] Irineo Ruff MD [address] [place] [address] [email or web address]@[facility] 01/10/2025 7:30 AM EST - 01/10/2025 8:15 AM EST Surgery [facility] Endoscopy Department [address] [place] [address] Irineo Ruff MD [address] [place] [address] [email or web address] COLONOSCOPY 01/31/2025 1:00 PM EST Office [facility] [address] [place] [address], 5th Floor, [address] [place] [address] Karnea Betancur MD [address] [place] [address] [email or web address] Scheduled Procedures Name Priority Associated Diagnoses [...] documented as of this encounter Care Teams Special Delivery Clerk Relationship Specialty Start Date End Date Artie Meehan MD [address] [place] [address] [place] [address] PCP - General Internal Medicine 10/26/17 06/03/21 Laura Mock MD, DMD [address] [address] [email or web address] du PCP - General Internal Medicine 06/04/21 11/11/23 Pcp, Unknown PCP - General 11/12/23 11/16/23 Laura Mock MD, DMD [address] [address] [email or web address] du PCP - General Internal Medicine 11/17/23 12/28/23 Pcp, Unknown PCP - General 02/28/24 03/04/24 [place] [address] [address] PCP - General 03/05/24 05/17/24 Laura Mock MD, DMD [address] [address] [email or web address] du PCP - General Internal Medicine 05/18/24 Artie Meehan MD [address] [place] [address] [address] [place] [address] Internal Medicine 10/26/17 04/23/22 Rina Swenson MD [address] [place] [address] [address] [place] [address] Psychiatry 07/09/17 Laura Mock MD, DMD [address] [address] [email or web address]. du Partners Attributed Provider 09/01/21 07/03/23 Laura Mock MD, DMD [address] [address] [email or web address]. du Insurance Assigned Provider 05/31/23 03/01/24 Jakob Bob MD [address] [place], [place] [address] [place] [address] [email or web address] Cardiology 08/22/23 Jose Cruz MD [address] [place], [place] [address] [address] Cardiology 08/22/23 Laura Mock MD, DMD 1 [facility] [address] [place] [address] [email or web address]. du Partners Attributed Provider 09/01/21 07/03/23 [facility] [phone]. Consulting Provider 08/22/23 [facility] Connect 12/24/23 03/11/24 Cyril Morales [address] [place] [address] Nurse Practitioner 02/27/24 documented as of this encounter Additional Source Comments The information contained in this document represents components of the legal health record. It is not the complete legal health record.[facility]
--- OUTSIDE RECORDS SUMMARY | 2024-11-25 14:40 | XMS_ITS | Encounter Summary ---
Author Organization [facility] Address [address] [place] [address] [place] [address] Phone Care Team Providers Care Radius Grinder Name Role Phone Rina Swenson MD Unavailable Laura Mock MD, DMD Primary Car e Provider Laura Mock MD, DMD Unavailable Laura Mock MD, DMD Unavailable Jakob Bob MD Unavailable [phone] Jose Cruz MD Unavailable [phone] Laura Mock MD, DMD Unavailable Pcp, Unknown Primary Care Provider UnavailLaura Ascencio MD, DMD Primary Car e Provider Pcp, Unknown Primary Care Provider UnavailNicole Arguello MD Primary Care Provide r Laura Mock MD, DMD Primary Car e Provider Encounter Details Date Type Department Care Team (Late st Contact Info) Description 04/25/2022 Anti-coag visit [facility] Anticoagulation Clinic [address] [place] [address] [id number] Kenyatta [email or web address] Social History Tobacco Use Types Packs/Day Years [...] AM EST Pre-Admission Testing [facility] 2nd [place] [address] Irinoe Ruff MD [address] [place] [address] [email or web address] 01/10/2025 Procedure Pass [facility] Endoscopy Department [address] [place] [address] 01/10/2025 7:30 AM EST Hospital Encounter [facility] Endoscopy Department [address] [place] [address] Irineo Ruff MD [address] [place] [address] [place] [address] [email or web address]@[facility] 01/10/2025 7:30 AM EST - 01/10/2025 8:15 AM EST Surgery [facility] Endoscopy Department [address] [place] [address] Irineo Ruff MD [address] [place] [address] [place] [address] [email or web address]@[facility] COLONOSCOPY 01/31/2025 1:00 PM EST Office Visit [facility] Cardi[facility] Medicine 32 [facility], 5th Floor, [address] [place] [address] Karena Betancur MD [address] [place] [address] FRANK@[email or web address] Scheduled Procedures Name Priority Associated [...] documented as of this encounter Care Teams Radius Grinder Relationship Specialty Start Date End Date Laura Mock MD, DMD [address] [address] [email or web address] du PCP - General Internal Medicine 06/04/21 11/11/23 Pcp, Unknown PCP - General 11/12/23 11/16/23 Laura Mock MD, DMD [address] [address] [email or web address] du PCP - General Internal Medicine 11/17/23 12/28/23 Pcp, Unknown PCP - General 02/28/24 03/04/24 Nicole Newell MD [address] [place] [address] PCP - General 03/05/24 05/17/24 Laura Mock MD, DMD [address] [address] [email or web address] du PCP - General Internal Medicine 05/18/24 Rina Swenson MD Psychiatry 07/09/17 Laura Mock MD, DMD [address] [address] [email or web address]. du Partners Attributed Provider 09/01/21 07/03/23 Laura Mock MD, DMD [address] [address] [email or web address] du Insurance Assigned Provider 05/31/23 03/01/24 Jakob Bob MD [address] [place] [address] [email or web address] Cardiology 08/22/23 Jose Cruz MD [address] [place] [address] Cardiology 08/22/23 Laura Mock MD, DMD [address] [address] [email or web address]. du Partners Attributed Provider 09/01/21 07/03/23 [facility] [phone]. Consulting Provider 08/22/23 [facility] Connect 12/24/23 03/11/24 Cyril Morales [address] [place] [phone] Nurse Practitioner 02/27/24 documented as of this encounter Additional Source Comments The information contained in this document represents components of the legal health record. It is not the complete legal health record.[facility]
--- OUTSIDE RECORDS SUMMARY | 2024-11-25 14:40 | XMS_ITS | Encounter Summary ---
Author Organization [facility] Address [address] [place] [address] Phone Care Team Providers Care Machine Stuffer Automatic Name Role Phone Rina Swenson MD Unavailable [...] st Contact Info) Description 12/25/2022 Transcribe Orders [facility] Department [address] [place] [address] Laura Mock MD, DMD 1 [facility] [address] [place] [address] [email or web address] Breast screening (Primary Dx) Social History Tobacco [...] Description 01/05/2025 11:00 AM EST Pre-Admission Testing [facility] 45 [facility] 2nd [place] [address] Irineo Ruff MD [address] [place] [address] [email or web address] 01/10/2025 Procedure Pass [facility] Endoscopy Department [address] [place] [address] 01/10/2025 7:30 AM EST Hospital Encounter [facility] Endoscopy Department [address] [place] [address] Irineo Ruff MD [address] [place] [address] [place] [address] [email or web address] 01/10/2025 7:30 AM EST - 01/10/2025 8:15 AM EST Surgery [facility] Endoscopy Department 75 [place] [address] Irineo Ruff MD 75 [facility] [place] [address] WALI@[email or web address] COLONOSCOPY 01/31/2025 1:00 PM EST Office Visit [facility] Cardi[facility] Medicine [address] [facility], 5th Floor, [address] [place] [address] Karena Betancur MD 55 [facility] [address] [place] [address] FRANK@[email or web address] Scheduled [...] the results and recommendations. Laura Mock MD, MONTEZ IMBibiana MG EXAMS Final Result documented in this [...] documented as of this encounter Care Teams Machine Stuffer Automatic Relationship Specialty Start Date End Date Laura Mock MD, DMD [address] [address] [email or web address] du PCP - General Internal Medicine 06/04/21 11/11/23 Pcp, Unknown PCP - General 11/12/23 11/16/23 Laura Mock MD, DMD [address] [address] [email or web address] PCP - General Internal Medicine 11/17/23 12/28/23 Pcp, Unknown PCP - General 02/28/24 03/04/24 [place] [address] [place] [address] PCP - General 03/05/24 05/17/24 Laura Mock MD, DMD [address] [address] [email or web address] du PCP - General Internal Medicine 05/18/24 Rina Swenson MD Psychiatry 07/09/17 Laura Mock MD, DMD [address] [address] [email or web address] du Partners Attributed Provider 09/01/21 07/03/23 Laura Mock MD, DMD [address] [address] [email or web address] du Insurance Assigned Provider 05/31/23 03/01/24 Jakob Bob MD [address] [place] [address] [email or web address] Cardiology 08/22/23 Jose Cruz MD [address] [place] [address] Cardiology 08/22/23 Laura Mock MD, DMD [address] [address] [email or web address]. du Partners Attributed Provider 09/01/21 07/03/23 [facility] [phone]. Consulting Provider 08/22/23 [facility] Connect 12/24/23 03/11/24 Cyril Morales [address] [place] [address] Nurse Practitioner 02/27/24 documented as of this encounter Additional Source Comments The information contained in this document represents components of the legal health record. It is not the complete legal health record.[facility]
--- OUTSIDE RECORDS SUMMARY | 2024-11-25 14:40 | XMS_ITS | Encounter Summary ---
Author Organization [facility] Address Pending sale to [employer] [address] [address] Phone Care Team Providers Care Game Producer Name Role Phone Rina Swenson MD Unavailable [...] Description 01/05/2025 11:00 AM EST Pre-Admission Testing [facility] 45 [facility] 2nd [place] [address] Irineo Ruff MD [address] [place] [address] [email or web address]@[email or web address] 01/10/2025 Procedure Pass [facility] Endoscopy Department [address] [place] [address] 01/10/2025 7:30 AM EST Hospital Encounter [facility] Endoscopy Department [address] [place] [address] Irineo Ruff MD [address] [place] [address] [place] [address] [email or web address]@[email or web address] 01/10/2025 7:30 AM EST - 01/10/2025 8:15 AM EST Surgery [facility] Endoscopy Department [address] [place] [address] Irineo Ruff MD [address] [place] [address] WALI@[facility] COLONOSCOPY 01/31/2025 1:00 PM EST Office Visit [facility] Cardiovascular Medicine 32 [facility], 5th Floor, [address] [place] [address] Karena Betancur MD [address] [address] [email or web address] Scheduled Procedures Name Priority Associated Diagnoses [...] documented as of this encounter Care Teams Game Producer Relationship Specialty Start Date End Date Laura Mock MD, DMD [address] [address] [email or web address] du PCP - General Internal Medicine 06/04/21 11/11/23 Pcp, Unknown PCP - General 11/12/23 11/16/23 Laura Mock MD, DMD [address] [address] [email or web address] PCP - General Internal Medicine 11/17/23 12/28/23 Pcp, Unknown PCP - General 02/28/24 03/04/24 [place] [address] [address] PCP - General 03/05/24 05/17/24 Laura Mock MD, DMD [address] [address] [email or web address] du PCP - General Internal Medicine 05/18/24 Rina Swenson MD Psychiatry 07/09/17 Laura Mock MD, DMD [address] [address] [email or web address] du Partners Attributed Provider 09/01/21 07/03/23 Laura Mock MD, DMD [address] [address] [email or web address] du Insurance Assigned Provider 05/31/23 03/01/24 Jakob Bob MD [address] [place] [address] [email or web address] Cardiology 08/22/23 Jose Cruz MD [address] [place] [address] [email or web address] Cardiology 08/22/23 Laura Mock MD, DMD [address] [address] [email or web address] du Partners Attributed Provider 09/01/21 07/03/23 [facility] [phone]. Consulting Provider 08/22/23 [facility] Connect 12/24/23 03/11/24 Cyril Morales [address] [place] [phone] Nurse Practitioner 02/27/24 documented as of this encounter Additional Source Comments The information contained in this document represents components of the legal health record. It is not the complete legal health record.[facility]
--- OUTSIDE RECORDS SUMMARY | 2024-11-25 14:41 | XMS_ITS | Encounter Summary ---
Author Organization [facility] Address [facility] [employer] [address] [address] Phone Care Team Providers Care Direct Marketing Executive Name Role Phone Rina Swenson MD Unavailable Laura Mock MD, DMD Primary Car e Provider Laura Mock MD, DMD Unavailable Laura Mock MD, DMD Unavailable Jakob Bob MD Unavailable [phone] Jose Cruz MD Unavailable [phone] Laura Mock MD, DMD Unavailable Pcp, Unknown [...] 01/05/2025 11:00 AM EST Pre-Admission Testing [address] [address] Irineo Ruff MD [address] [place] [address] [email or web address]@[facility] 01/10/[address] [facility] Endoscopy Department [address] [place] [address] 01/10/2025 7:30 AM EST Hospital Encounter [facility] Endoscopy Department [address] [place] [address] Irineo Ruff MD [address] [place] [address] WALI@[facility] 01/10/2025 7:30 AM EST - 01/10/2025 8:[address] [facility] Endoscopy Department [address] [place] [address] Irineo Ruff MD [address] [place] [address] WALI@[facility] COLONOSCOPY 01/31/2025 1:00 PM EST Office Visit [facility] Cardiovascular Medicine 32 [facility], 5th Floor, [address] [place] [address] Karena Betancur MD 55 [facility] [address] [place] [address] FRANK@[email or web address] Scheduled Procedures Name Priority Associated [...] documented as of this encounter Care Teams Direct Marketing Executive Relationship Specialty Start Date End Date Laura Mock MD, DMD [address] [address] [email or web address] du PCP - General Internal Medicine 06/04/21 11/11/23 Pcp, Unknown PCP - General 11/12/23 11/16/23 Laura Mock MD, DMD [address] [address] [email or web address] du PCP - General Internal Medicine 11/17/23 12/28/23 Pcp, Unknown PCP - General 02/28/24 03/04/24 Nicole Newell MD [address] [place] [address] [id number] PCP - General 03/05/24 05/17/24 Laura Mock MD, DMD [address] [address] [email or web address] du PCP - General Internal Medicine 05/18/24 Rina Swenson MD Psychiatry 07/09/17 Laura Mock MD, DMD [address] [address] [email or web address]. du Partners Attributed Provider 09/01/21 07/03/23 Laura Mock MD, DMD [address] [address] [email or web address] du Insurance Assigned Provider 05/31/23 03/01/24 Jakob Bob MD 75 [facility] [place] [address] [email or web address] Cardiology 08/22/23 Jose Cruz MD [address] [place] [address] Cardiology 08/22/23 Laura Mock MD, DMD [address] [address] [email or web address] du Partners Attributed Provider 09/01/21 07/03/23 [facility] [phone]. Consulting Provider 08/22/23 [facility] Connect 12/24/23 03/11/24 Cyril Morales [address] [place] [address] Nurse Practitioner 02/27/24 documented as of this encounter Additional Source Comments The information contained in this document represents components of the legal health record. It is not the complete legal health record.[facility]
--- OUTSIDE RECORDS SUMMARY | 2024-11-25 14:41 | XMS_ITS | Encounter Summary ---
Author Organization [facility] Address [facility] [employer] [address] [address] Phone Care Team Providers Care Rehab Trainer Name Role Phone Tasha Greenwood MD Primary Care Provider [phone] Artie Meehan MD Primary Care Provider [phone] Artie Meehan MD Primary Care Provider [phone] Artie Meehan MD Unavailable Meera Campos Unavailable [phone] Amber Raygoza NP Unavailable Elvis Rendon MD Unavailable [phone] Modesta Rivera MD Unavailable [phone] Carlin Newman MD Unavailable [phone] Patti Bello MD Unavailable [phone] Lucila Melendez MD Unavailable [phone] Juan J Avitia DO Unavailable [phone] Tasha Greenwood MD Unavailable Mekhi Hernandez MD Unavailable Leora Fish-C Unavailable Angel Klein MD Unavailable [phone] Fredy rBuno MD Unavailable Sejal Dick MD Unavailable [phone] Cadence Rouse MD Unavailable [phone] Baljinder Hinson MD Unavailable [phone] Rina Swenson MD Unavailable [phone] Laura Mock MD, DMD Primary Car e Provider Laura Mock MD, DMD Unavailable Laura Mock MD, DMD Unavailable Jakob Bob MD Unavailable [phone] Jose Cruz MD Unavailable Laura Mock MD, DMD Unavailable Pcp, Unknown Primary Care Provider UnavailLaura Ascencio MD, DMD Primary Car e Provider Pcp, Unknown Primary Care Provider UnavailNicole Arguello MD Primary Care Provide r Laura Mock MD, DMD Primary Car e Provider Encounter Details Date Type Department Care Team (Late st Contact Info) Description 06/12/2017 Procedure Pass [facility] [address] [place] [address] Social History Tobacco Use Types Packs/Day Years [...] Description 01/05/2025 11:00 AM EST Pre-Admission Testing [address] 2nd [place] [address] Irineo Ruff MD 75 [place] [address] [email or web address] 01/10/2025 Procedure Pass [facility] Endoscopy Department [address] [place] [address] 01/10/2025 7:30 AM EST Hospital Encounter [facility] Endoscopy Department [address] [place] [address] Irineo Ruff MD 75 [place] [address] [email or web address] 01/10/2025 7:30 AM EST - 01/10/2025 8:15 AM EST Surgery [facility] Endoscopy Department [address] [place] [address] Irineo Ruff MD [address] [place] [address] [email or web address] 01/31/2025 1:00 PM EST Office Visit [facility] Cardiovascular Medicine [address], 5th Floor, [address] [place] [address] Karena Betancur MD [address] [address] [email or web address] Scheduled Procedures Name Priority Associated [...] documented as of this encounter Care Teams Rehab Trainer Relationship Specialty Start Date End Date Tasha Greenwood MD [address] [place] [address], 2nd [place] [address] [email or web address] PCP - General 08/24/13 07/08/17 Artie Meehan MD [address] [place] [address] Dr [address] [place] [address] PCP - General Internal Medicine 07/09/17 10/25/17 Artie Meehan MD [address] [place] [address] Dr [address] [place] [address] PCP - General Internal Medicine 10/26/17 06/03/21 Laura Mock MD, DMD [address] [address] [email or web address] PCP - General Internal Medicine 06/04/21 11/11/23 Pcp, Unknown PCP - General 11/12/23 11/16/23 Laura Mock MD, DMD [address] [address] [email or web address] PCP - General Internal Medicine 11/17/23 12/28/23 Pcp, Unknown PCP - General 02/28/24 03/04/24 Nicole Newell MD [address] [place] [address] PCP - General 03/05/24 05/17/24 Laura Mock MD, DMD [address] [address] [email or web address] PCP - General Internal Medicine 05/18/24 Artie Meehan MD [address] [place] [address] [place] [address] Internal Medicine 10/26/17 04/23/22 Meera Campos PA [facility] [place] [address] Historical LMR Provider 12/14/16 Amber Raygoza NP [address] [place] [address] [address] [place] [address] Historical LMR Provider 12/14/16 Elvis Rendon MD [address] [place] [address], [address] [place] [address] Historical LMR Provider 12/14/16 8 Modesta Rivera MD [address] [place] [address], [address] [place] [address] Historical LMR Provider 12/14/16 Carlin Newman MD [address] [place] [address], 2nd [place] [address] Historical LMR Provider 12/14/16 Patti Bello MD [address] [facility], 2nd [place] [address] Historical LMR Provider 12/14/16 07/08/17 Lucila Melendez MD [address] [facility], [address] [place] [address] Historical LMR Provider 12/14/16 07/08/17 Juan J Avitia DO [address] [place] [address] [facility], [place] [address] Historical LMR Provider 12/14/16 07/08/17 Tasha Greenwood MD [address] [place] [address], 2nd [place] [address] [email or web address] Historical LMR Provider 12/14/16 07/08/17 Mekhi Hernandez MD [address] [place], [place] [address] [address] [email or web address] Historical LMR Provider 12/14/16 07/08/17 Leora Fish PA-C [address] [place] [address] [facility], [place] [address] Historical LMR Provider 12/14/16 Angel Bueno MD [address] [facility], [address] [place] [address] Historical LMR Provider 12/14/16 Fredy Bruno MD [address] [place] [address] Historical LMR Provider 12/14/16 Sejal Dick MD 4 [facility] Orth[facility] Medicine, [facility] [address] [email or web address] Historical LMR Provider 12/14/1607/08 Cadence Rouse MD [address] [place] [address] Historical LMR Provider 12/14/16 Baljinder Hinson MD 61 [place] [address] Historical LMR Provider 12/14/16 Rina Swenson MD 61 [place] [address] Psychiatry 07/09/17 Laura Mock MD, DMD [address] [address] [email or web address] Attributed Provider 09/01/21 07/03/23 Laura Mock MD, DMD [address] [address] [email or web address] Insurance Assigned Provider 05/31/23 03/01/24 Jakob Bob MD [address] [place] [address] [place] [address] [email or web address] Cardiology 08/22/23 Jose Cruz MD [address] [facility], [address] [place] [address] Cardiology 08/22/23 Laura Mock MD, DMD [address] [place] [address] [address] [place] [address] [email or web address] Attributed Provider 09/01/21 07/03/23 [facility] [phone]. Consulting Provider 08/22/23 CAROLANN GREWAL Connect 12/24/23 03/11/24 Cyril Morales [address] [place] [address] Nurse Practitioner 02/27/24 documented as of this encounter Additional Source Comments The information contained in this document represents components of the legal health record. It is not the complete legal health record.[facility]
--- OUTSIDE RECORDS SUMMARY | 2024-11-25 14:41 | XMS_ITS | Encounter Summary ---
Author Organization Located Within [facility] Address [address] [place] [address] [place] [address] Phone Care Team Providers Care Battery Service Technician Name Role Phone Rina Swenson MD Unavailable Laura Mock MD, DMD Primary Car e Provider Laura Mock MD, DMD Unavailable Laura Mock MD, DMD Unavailable Jakob Bob MD Unavailable Jose Cruz MD Unavailable [phone] Laura Mock MD, DMD Unavailable Pcp, Unknown Primary Care Provider UnavailLaura Ascencio MD, DMD Primary Car e Provider Pcp, Unknown Primary Care Provider UnavailNicole Arguello MD Primary Care Provide r Laura Mock MD, DMD Primary Car e Provider Encounter Details Date Type Department Care Team (Late st Contact Info) Description 03/23/2023 Anti-coag visit [facility] Anticoagulation Clinic 75 [place] [address] Purvi Lawler, PharmD 75 [place] [address] [email or web address] Social History Tobacco Use Types [...] Description 01/05/2025 11:00 AM EST Pre-Admission Testing [facility] [address] [facility] 2nd [place] [address] Irineo Ruff MD [address] [place] [address] [place] [address] [email or web address] 01/10/2025 Procedure Pass [facility] Endoscopy Department [address] [place] [address] 01/10/2025 7:30 AM EST Hospital Encounter [facility] Endoscopy Department [address] [place] [address] Irineo Ruff MD [address] [place] [address] [email or web address] 01/10/2025 7:30 AM EST - 01/10/2025 8:15 AM EST Surgery [facility] Endoscopy Department 75 [place] [address] Irineo Ruff MD 75 [facility] [place] [address] [email or web address] [email or web address] 01/31/2025 1:00 PM EST Office Visit [facility] Cardiovascular Medicine 32 [facility], 5th Floor, [address] [place] [address] Karena Betancur MD [address] [facility] 5B [place] [address] [email or web address] Scheduled Procedures Name Priority [...] documented as of this encounter Care Teams Battery Service Technician Relationship Specialty Start Date End Date Laura Mock MD, DMD 1 [facility] [address] [place] [address] [email or web address] PCP - General Internal Medicine 06/04/21 11/11/23 Pcp, Unknown PCP - General 11/12/23 11/16/23 Laura Mock MD, DMD 1 [facility] [address] [place] [address] [email or web address] PCP - General Internal Medicine 11/17/23 12/28/23 Pcp, Unknown PCP - General 02/28/24 03/04/24 [place] [address] [place] [address] PCP - General 03/05/24 05/17/24 Laura Mock MD, DMD [address] [address] [email or web address] PCP - General Internal Medicine 05/18/24 Rina Swenson MD Psychiatry 07/09/17 Laura Mock MD, DMD [address] [address] [email or web address] Attributed Provider 09/01/21 07/03/23 Laura Mock MD, DMD [address] [address] [email or web address] Insurance Assigned Provider 05/31/23 03/01/24 Jakob Bob MD [address] [place] [address] [place] [address] [email or web address] Cardiology 08/22/23 Jose Cruz MD [address] [place] [address], [facility] [address] [place] [address] Cardiology 08/22/23 Laura Mock MD, DMD 1 [facility] [address] [place] [address] [email or web address] Attributed Provider 09/01/21 07/03/23 [employer] [phone]. Consulting Provider 08/22/23 [facility] Connect 12/24/23 03/11/24 Cyril Morales [facility]5 [place] [address] Nurse Practitioner 02/27/24 documented as of this encounter Additional Source Comments The information contained in this document represents components of the legal health record. It is not the complete legal health record.[facility]
--- OUTSIDE RECORDS SUMMARY | 2024-11-25 14:41 | XMS_ITS | Encounter Summary ---
Author Organization [facility] Address [facility] Hand[employer]inder [facility] [address] [place] [address] Phone Care Team Providers Care Java Security Architect Name Role Phone Artie Meehan MD Primary Care Provider Artie Meehan MD Unavailable [phone] Rina Swenson MD Unavailable Laura Mock MD, [...] Description 11/29/2017 Transcribe Orders [facility] [address] [place] [address] Artie Meehan MD [address] [place] [address] [place] [address] Hypertension, essential (Primary Dx) Social History Tobacco [...] Description 01/05/2025 11:00 AM EST Pre-Admission Testing [address] 2nd [place] [address] Irineo Ruff MD [address] [place] [address] [email or web address] 01/10/2025 Procedure Pass [facility] Endoscopy Department [address] [place] [address] 01/10/2025 7:30 AM EST Hospital Encounter [facility] Endoscopy Department [address] [place] [address] Irineo Ruff MD [address] [place] [address] [email or web address] 01/10/2025 7:30 AM EST - 01/10/2025 8:15 AM EST Surgery [facility] Endoscopy Department [address] [place] [address] Irineo Ruff MD [address] [place] [address] [place] [address] [email or web address] [email or web address] 01/31/2025 1:00 PM EST Office Visit [facility] Cardiovascular Medicine 32 [facility], 5th Floor, [address] [place] [address] Karena Betancur MD 55 [facility] 5[address] [place] [address] [email or web address] Scheduled Procedures Name Priority Associated Diagnoses Date/Ti me COLONOSCOPY Abnormal colonoscopy 01/10/2025 7:30 AM EST documented as of this encounter Results * (ABNORMAL) Urinalysis (11/29/2017 10:52 AM EDT) Pathologist [facility] COLOR Yellow Yellow [facility] CLARITY Clear [facility] GLUCOSE Negative Negative [facility] BILI Negative Negative [facility] KETONES Negative Negative [facility] SPECIFIC GRAVITY 1.015 1.005 - 1.030 [facility] BLOOD Trace(A) Negative [facility] PH 6.0 5.0 - 8.0 [facility] Protein-UA Negative Negative [facility] NITRITE Negative Negative [facility] Leukocyte esterase, ur Negative Negative [facility] Urine (Urine) 11/29/2017 10: 52 AM EDT 11/29/2017 10:57 AM EDT us Artie Meehan MD URINE ORDERABLES Final Re sult [address] [address] * (ABNORMAL) CBC and differential (11/29/2017 10:52 AM EDT) WBC 3.98 3.40 - 11.20 K/uL [facility] RBC 5.32(H) 3.80 - 4.80 M/uL [facility] HGB 15.7(H) 12.0 - 15.0 g/dL [facility] HCT 48.4(H) 36.0 - 46.0 % [facility] PLT 223 130 - 400 K/uL [facility] MCV 91.0 79.0 - 98.0 fL [facility] MCH 29.5 27.0 - 34.8 pg [facility] MCHC 32.4 31.5 - 36.0 g/dL [facility] RDW 13.4 10.8 - 14.6 % [facility] MPV 9.1(L) 9.4 - 12.4 fl [facility] NRBC 0.00 /100 WBCs [facility] ABSOLUTE NRBC 0.00 K/uL [facility] DIFF METHOD Auto [facility] NEUTS 58.8 45.30 - 77.70 % [facility] LYMPHS 26.6 12.30 - 39.70 % [facility] MONOS 10.8 4.10 - 12.80 % [facility] EOS 2.5 0 - 7.2 % [facility] BASOS 1.0 0 - 2.80 % [facility] Granulocytes, immature (%) 0.3 0.0 - 0.9 % [facility] ABSOLUTE NEUTS 2.34 1.40 - 7.70 K/uL [facility] ABSOLUTE LYMPHS 1.06 0.60 - 3.20 K/uL [facility] ABSOLUTE MONOS 0.43 0.11 - 0.59 K/uL [facility] ABSOLUTE EOS 0.10 0.01 - 0.50 K/uL [facility] ABSOLUTE BASOS 0.04 0.00 - 0.08 K/uL [facility] Granulocytes, immature 0.01 0.00 - 0.05 K/uL [facility] Blood 11/29/2017 10:5 2 AM EDT 11/29/2017 10:57 AM EDT us Artie Meehan MD LAB BLOOD ORDERABLES Neela l Result [address] [address] * (ABNORMAL) Lipid panel (11/29/2017 10:52 AM EDT) HDL 82 mg/dL [facility] Comment: Interpretation: Risk Level Females Decreased >55mg/dL Average 50-55 mg/dL Increased <50 mg/dL CHOLESTEROL 253(H) 0 - 240 mg/dL [facility] TRIGLYCERIDES 83 30 - 160 mg/dL [facility] LDL 154(H) 50 - 129 mg/dL [facility] Comment: LDL levels in terms of risk for coronary heart disease: <100 mg/dL: Optimal 100-129 mg/dL: Near or above optimal 130-159 mg/dL: Borderline high 160-189 mg/dL: High >190 mg/dL: Very High CARDIAC RISK RATIO 3.1(L) 3.3 - 4.4 [facility] Blood 11/29/2017 10:5 2 AM EDT 11/29/2017 10:57 AM EDT us Artie Meehan MD LAB BLOOD ORDERABLES Neela milian Result [facility] [address] [place] [address] * Comprehensive metabolic panel (11/29/2017 10:52 AM EDT) SODIUM 145 133 - 146 mmol/L [facility] POTASSIUM 4.7 3.3 - 5.1 mmol/L [facility] CHLORIDE 104 96 - 108 mmol/L [facility] CO2 27 21 - 35 mmol/L [facility] BUN 17 6 - 19 mg/dL [facility] CREATININE 0.80 0.5 - 1.5 mg/dL [facility] GLUCOSE 86 70 - 99 mg/dL [facility] ALBUMIN 4.1 3.9 - 4.8 g/dL [facility] TOTAL PROTEIN 6.9 6.5 - 8.0 g/dL [facility] CALCIUM 9.2 8.4 - 10.3 mg/dL [facility] ALKALINE PHOSPHATASE 73 39 - 117 U/L [facility] TOTAL BILIRUBIN 0.5 0.0 - 1.2 mg/dL [facility] AST 19 0 - 37 U/L [facility] ALT 12 0 - 40 U/L [facility] GLOBULIN 2.8 1 - 4.8 g/dL [facility] EGFR 70 >59 mL/min/1.7 3m2 [facility] Comment:If patient is black, multiply result by 1.159. Estimated glomerular filtration rate calculated using the CKD-EPI equation. ANION GAP 19 10 - 20 mmol/L [facility] Blood 11/29/2017 10:5 2 AM EDT 11/29/2017 10:57 AM EDT us Artie Meehan MD LAB BLOOD ORDERABLES Neela l Result [address] [address] documented in this encounter Visit Diagnoses Diagnosis Hypertension, essential- Primary Unspecified essential hypertension Abnormal colonoscopy documented in this encounter Additional Health Concerns Infection Onset Date Last Indicated Resolved Time CoV-Presumed 03/23/2022 03/23/2022 04/13/2022 1:23 AM EST CoV-Risk 11/12/2023 11/12/2023 11/12/2023 5:12 PM EDT COVID-19 11/12/2023 11/12/2023 12/03/2023 1:21 AM EDT documented as of this encounter Care Teams Java Security Architect Relationship Specialty Start Date End Date Artie Meehan MD [address] [place] [address] [place] [address] PCP - General Internal Medicine 10/26/17 06/03/21 Laura Mock MD, DMD [address] [address] [email or web address] PCP - General Internal Medicine 06/04/21 11/11/23 Pcp, Unknown PCP - General 11/12/23 11/16/23 Laura Mock MD, DMD [address] [address] [email or web address] PCP - General Internal Medicine 11/17/23 12/28/23 Pcp, Unknown PCP - General 02/28/24 03/04/24 [place] [address] [address] PCP - General 03/05/24 05/17/24 Laura Mock MD, DMD [address] [address] [email or web address] PCP - General Internal Medicine 05/18/24 Artie Meehan MD [address] [place] [address] Dr Dior Formerly named [facility] [place] [address] Internal Medicine 10/26/17 04/23/22 Rina Swenson MD [address] [place] [address] [place], [place] [address] [address] Psychiatry 07/09/17 Laura Mock MD, DMD [address] [address] [email or web address] [employer] Attributed Provider 09/01/21 07/03/23 Laura Mock MD, DMD [address] [address] [email or web address] Insurance Assigned Provider 05/31/23 03/01/24 Jakob Bob MD 75 [facility] [address] [place] [address] [email or web address] Cardiology 08/22/23 Jose Cruz MD [facility], [address] [place] [address] [email or web address] Cardiology 08/22/23 Laura Mock MD, DMD 1 [facility] [address] [place] [address] [email or web address] Attributed Provider 09/01/21 07/03/23 [facility] [phone]. Consulting Provider 08/22/23 [facility] Connect 12/24/23 03/11/24 Cyril Morales [address] [place] [address] Nurse Practitioner 02/27/24 documented as of this encounter Additional Source Comments The information contained in this document represents components of the legal health record. It is not the complete legal health record.[facility]
--- OUTSIDE RECORDS SUMMARY | 2024-11-25 14:41 | XMS_ITS | Encounter Summary ---
Author Organization [facility] Address 399 [employer] [facility] [address] [place] [address] Phone Care Team Providers Care Operations Boardman Name Role Phone Rina Swenson MD Unavailable [...] st Contact Info) Description 10/09/2022 Procedure Pass [facility] CT Imaging, [place] [address] [place] [address] Social History Tobacco Use Types Packs/Day Years [...] Description 01/05/2025 11:00 AM EST Pre-Admission Testing [facility] [address] [facility] 2nd [place] [address] Irineo Ruff MD [address] [place] [address] [email or web address] 01/10/2025 Procedure Pass [facility] Endoscopy Department [address] [place] [address] 01/10/2025 7:30 AM EST Hospital Encounter [facility] Endoscopy Department [address] [place] [address] Irineo Ruff MD [address] [place] [address] [email or web address] 01/10/2025 7:30 AM EST - 01/10/2025 8:15 AM EST Surgery [facility] Endoscopy Department [address] [place] [address] Irineo Ruff MD [address] [place] [address] [email or web address] COLONOSCOPY 01/31/2025 1:00 PM EST Office Visit [facility] Cardiovascular Medicine [address] [facility], 5th Floor, [address] [place] [address] Karena Betancur MD 55 [facility] [address] [place] [address] [email or web address] Scheduled Procedures Name Priority Associated [...] documented as of this encounter Care Teams Operations Boardman Relationship Specialty Start Date End Date Laura Mock MD, DMD [address] [address] [email or web address] PCP - General Internal Medicine 06/04/21 11/11/23 Pcp, Unknown PCP - General 11/12/23 11/16/23 Laura Mock MD, DMD [address] [address] [email or web address] PCP - General Internal Medicine 11/17/23 12/28/23 Pcp, Unknown PCP - General 02/28/24 03/04/24 [place] [address] [address] PCP - General 03/05/24 05/17/24 Laura Mock MD, DMD [address] [address] [email or web address] du PCP - General Internal Medicine 05/18/24 Rina Swenson MD Psychiatry 07/09/17 Laura Mock MD, DMD [address] [address] [email or web address] Partners Attributed Provider 09/01/21 07/03/23 Laura Mock MD, DMD [address] [address] [email or web address] du Insurance Assigned Provider 05/31/23 03/01/24 Jakob Bob MD 75 [facility] [place] [address] [email or web address] Cardiology 08/22/23 Jose Cruz MD [address] [place] [address], [address] [place] [address] Cardiology 08/22/23 Laura Mock MD, DMD [address] [address] [email or web address] Partners Attributed Provider 09/01/21 07/03/23 [facility] [phone]. Consulting Provider 08/22/23 [facility] Connect 12/24/23 03/11/24 Cyril Morales [address] [place] [address] Nurse Practitioner 02/27/24 documented as of this encounter Additional Source Comments The information contained in this document represents components of the legal health record. It is not the complete legal health record.[facility]
--- OUTSIDE RECORDS SUMMARY | 2024-11-25 14:41 | XMS_ITS | Encounter Summary ---
Author Organization [facility] Address [address] [employer] [facility] [address] [place] [address] Phone Care Team Providers Care Interactive Media Director Name Role Phone Rina Swenson MD Unavailable Laura Mock MD, DMD Primary Car e Provider Laura Mock MD, DMD Unavailable Laura Mock MD, DMD Unavailable Jakob Bob MD Unavailable Jose Cruz MD Unavailable [phone] Laura Mock MD, DMD Unavailable Pcp, Unknown Primary Care Provider UnavailLaura Ascencio MD, DMD Primary Car e Provider Pcp, Unknown Primary Care Provider UnavailNicole Arguello MD Primary Care Provide r Laura Mock MD, DMD Primary Car e Provider Encounter Details Date Type Department Care Team (Late st Contact Info) Description 05/27/2023 Procedure Pass [facility] Endoscopy Department [address] [place] [address] Social History Tobacco Use Types Packs/Day Years [...] Description 01/05/2025 11:00 AM EST Pre-Admission Testing [address] [address] Irineo Ruff MD [address] [place] [address] [email or web address] 01/10/2025 Procedure Pass [facility] Endoscopy Department [address] [place] [address] 01/10/2025 7:30 AM EST Hospital Encounter [facility] Endoscopy Department [address] [place] [address] Irineo Ruff MD [address] [place] [address] [email or web address] 01/10/2025 7:30 AM EST - 01/10/2025 8:15 AM EST Surgery [facility] Endoscopy Department [address] [place] [address] Irineo Ruff MD [address] [place] [address] [email or web address] COLONOSCOPY 01/31/2025 1:00 PM EST Office Visit [facility] Cardiovascular Medicine [address] [facility], 5th Floor, [address] [place] [address] Karena Betancur MD 55 [facility] [address] [place] [address] [email or web address] Scheduled Procedures Name Priority [...] documented as of this encounter Care Teams Interactive Media Director Relationship Specialty Start Date End Date Laura Mock MD, DMD [address] [address] [email or web address] PCP - General Internal Medicine 06/04/21 11/11/23 Pcp, Unknown PCP - General 11/12/23 11/16/23 Laura Mock MD, DMD [address] [address] [email or web address] PCP - General Internal Medicine 11/17/23 12/28/23 Pcp, Unknown PCP - General 02/28/24 03/04/24 Nicole [place]ell [place] [address] [place] [address] PCP - General 03/05/24 05/17/24 Laura Mock MD, DMD 1 [facility] [address] [place] [address] [email or web address] du PCP - General Internal Medicine 05/18/24 Rina Swenson MD Psychiatry 07/09/17 Laura Mock MD, DMD [address] [address] [email or web address] du Partners Attributed Provider 09/01/21 07/03/23 Laura Mock MD, DMD [address] [address] [email or web address] du Insurance Assigned Provider 05/31/23 03/01/24 Jakob Bob MD [address] [place] [address] [place] [address] [email or web address] Cardiology 08/22/23 Jose Cruz MD [address] [place] [address], [address] [place] [address] Cardiology 08/22/23 Laura Mock MD, DMD [address] [address] [email or web address] du Partners Attributed Provider 09/01/21 07/03/23 [facility] [phone]. Consulting Provider 08/22/23 [facility]OL[facility] GREWAL Connect 12/24/23 03/11/24 Cyril Morales [facility] [place] [address] Nurse Practitioner 02/27/24 documented as of this encounter Additional Source Comments The information contained in this document represents components of the legal health record. It is not the complete legal health record.[facility]
--- OUTSIDE RECORDS SUMMARY | 2024-11-25 14:41 | XMS_ITS | Encounter Summary ---
Author Organization [facility] Address [facility] [address] [address] Phone Care Team Providers Care Auto Air Conditioning Apprentice Name Role Phone Rina Swenson MD Unavailable Laura Mock MD, DMD Primary Car e Provider Laura Mock MD, DMD Unavailable Laura Mock MD, DMD Unavailable Jakob Bob MD Unavailable [phone] Jose Cruz MD Unavailable [phone] Laura Mock MD, DMD Unavailable Pcp, Unknown [...] Description 01/05/2025 11:00 AM EST Pre-Admission Testing [address] [address] Irineo Ruff MD [address] [place] [address] [email or web address] 01/10/2025 Procedure Pass [facility] Endoscopy Department [address] [place] [address] 01/10/2025 7:30 AM EST Hospital Encounter [facility] Endoscopy Department [address] [place] [address] Irineo Ruff MD [address] [place] [address] [email or web address] 01/10/2025 7:30 AM EST - 01/10/2025 8:15 AM EST Surgery [facility] Endoscopy Department [address] [place] [address] Irineo Ruff MD [address] [place] [address] [email or web address] COLONOSCOPY 01/31/2025 1:00 PM EST Office Visit [facility] Cardiovascular Medicine [address] [facility], 5th Floor, [address] [place] [address] Karena Betancur MD 55 [facility] [address] [place] [address] [email or web address] Scheduled Procedures Name Priority Associated Diagnoses Date/Ti [...] documented as of this encounter Care Teams Auto Air Conditioning Apprentice Relationship Specialty Start Date End Date Laura Mock MD, DMD [address] [address] [email or web address] du PCP - General Internal Medicine 06/04/21 11/11/23 Pcp, Unknown PCP - General 11/12/23 11/16/23 Laura Mock MD, DMD [address] [address] [email or web address] PCP - General Internal Medicine 11/17/23 12/28/23 Pcp, Unknown PCP - General 02/28/24 03/04/24 Nicole Newell MD [address] [place] [address] [id number] PCP - General 03/05/24 05/17/24 Laura Mock MD, DMD [address] [address] [email or web address] du PCP - General Internal Medicine 05/18/24 Rina Swenson MD Psychiatry 07/09/17 Laura Mock MD, DMD [address] [address] [email or web address] Partners Attributed Provider 09/01/21 07/03/23 Laura Mock MD, DMD [address] [address] [email or web address] du Insurance Assigned Provider 05/31/23 03/01/24 Jakob Bob MD 75 [facility] [place] [address] [email or web address] Cardiology 08/22/23 Jose Cruz MD [address] [place] [address] Cardiology 08/22/23 Laura Mock MD, DMD [address] [address] [email or web address] du Partners Attributed Provider 09/01/21 07/03/23 [facility] [phone]. Consulting Provider 08/22/23 [facility] Connect 12/24/23 03/11/24 Cyril Morales [address] [place] [address] Nurse Practitioner 02/27/24 documented as of this encounter Additional Source Comments The information contained in this document represents components of the legal health record. It is not the complete legal health record.[facility]
--- OUTSIDE RECORDS SUMMARY | 2024-11-25 14:41 | XMS_ITS | Encounter Summary ---
Author Organization [facility] Address [facility] [employer] [facility] [address] [place] [address] Phone Care Team Providers Care Dental Surgery Doctor Name Role Phone Artie Meehan MD Primary Care Provider Artie Meehan MD Unavailable [phone] Rina Swenson MD Unavailable Laura Mock MD, DMD Primary Car e Provider Laura Mock MD, DMD Unavailable Laura Mock MD, DMD Unavailable Jakob Bob MD Unavailable Jose Cruz MD Unavailable [phone] Laura Mock MD, DMD Unavailable Pcp, Unknown Primary Care Provider UnavailLaura Ascencio MD, DMD Primary Car e Provider Pcp, Unknown Primary Care Provider UnavailNicole Arguello MD Primary Care Provide r Laura Mock MD, DMD Primary Car e Provider Encounter Details Date Type Department Care Team (Late st Contact Info) Description 10/26/2017 Procedure Pass [facility] Ct Scan - [address] [address] Social History Tobacco Use Types Packs/Day Years [...] 01/05/2025 11:00 AM EST Pre-Admission Testing [address] 2[address] [place] [address] Irineo Ruff MD [address] [place] [address] [place] [address] [email or web address] 01/10/2025 Procedure Pass [facility] Endoscopy Department [address] [place] [address] 01/10/2025 7:30 AM EST Hospital Encounter [facility] Endoscopy Department [address] [place] [address] Irineo Ruff MD [address] [place] [address] [place] [address] [email or web address] 01/10/2025 7:30 AM EST - 01/10/2025 8:15 AM EST Surgery [facility] Endoscopy Department [address] [place] [address] Irineo Ruff MD [address] [place] [address] [email or web address] COLONOSCOPY 01/31/2025 1:00 PM EST Office Visit [facility] Cardiovascular Medicine [address] [place] [address], 5th Floor, [address] [place] [address] Karena Betancur MD [address] [place] [address] [email or web address] Scheduled Procedures Name Priority Associated Diagnoses Date/Ti [...] documented as of this encounter Care Teams Dental Surgery Doctor Relationship Specialty Start Date End Date Artie Meehan MD [address] [place] [address] PCP - General Internal Medicine 10/26/17 06/03/21 Laura Mock MD, DMD [address] [address] [email or web address] PCP - General Internal Medicine 06/04/21 11/11/23 Pcp, Unknown PCP - General 11/12/23 11/16/23 Laura Mock MD, DMD [address] [address] [email or web address] PCP - General Internal Medicine 11/17/23 12/28/23 Pcp, Unknown PCP - General 02/28/24 03/04/24 Nicole Newell [place] [address] [place] [address] PCP - General 03/05/24 05/17/24 Laura Mock MD, DMD [address] [address] [email or web address] PCP - General Internal Medicine 05/18/24 Artie Meehan MD [address] [place] [address] [place] [address] Internal Medicine 10/26/17 04/23/22 Rina Swenson MD [address] [place] [address] [address] [place] [address] Psychiatry 07/09/17 Laura Mock MD, DMD [address] [address] [email or web address] Partners Attributed Provider 09/01/21 07/03/23 Laura Mock MD, DMD [address] [address] [email or web address] du Insurance Assigned Provider 05/31/23 03/01/24 Jakob Bob MD [address] [place], [place] [address] [place] [address] [email or web address] Cardiology 08/22/23 Jose Cruz MD [address] [place] [address], [address] [place] [address] Cardiology 08/22/23 Laura Mock MD, DMD 1 [facility] [address] [place] [address] [email or web address] Partners Attributed Provider 09/01/21 07/03/23 [facility] [phone]. Consulting Provider 08/22/23 [facility] Connect 12/24/23 03/11/24 Cyril Morales [address] [place] [address] Nurse Practitioner 02/27/24 documented as of this encounter Additional Source Comments The information contained in this document represents components of the legal health record. It is not the complete legal health record.[facility]
--- OUTSIDE RECORDS SUMMARY | 2024-11-25 14:41 | XMS_ITS | Encounter Summary ---
Author Organization [facility] Address [address] [address] Phone Care Team Providers Care Avionics Systems Repairer Name Role Phone Rina Swenson MD Unavailable Laura Mock MD, DMD Primary Car e Provider Laura Mock MD, DMD Unavailable Laura Mock MD, DMD Unavailable Jakob Bob MD Unavailable Jose Cruz MD Unavailable [phone] Laura Mock MD, DMD Unavailable Pcp, Unknown Primary Care Provider UnavailLaura Ascencio MD, DMD Primary Car e Provider Pcp, Unknown Primary Care Provider UnavailNicole Arguello MD Primary Care Provide r Laura Mock MD, DMD Primary Car e Provider Encounter Details Date Type Department Care Team (Late st Contact Info) Description 10/06/2022 Anti-coag visit [facility] Anticoagulation Clinic [address] [place] [address] Abbie Prieto, PharmD [address] [place] [address] [email or web address] Social History Tobacco [...] Description 01/05/2025 11:00 AM EST Pre-Admission Testing [facility] [address] [facility] 2nd [place] [address] Irineo Ruff MD [address] [place] [address] [email or web address] 01/10/2025 Procedure Pass [facility] Endoscopy Department [address] [place] [address] 01/10/2025 7:30 AM EST Hospital Encounter [facility] Endoscopy Department [address] [place] [address] Irineo Ruff MD [address] [place] [address] [email or web address] 01/10/2025 7:30 AM EST - 01/10/2025 8:15 AM EST Surgery [facility] Endoscopy Department 75 [place] [address] Irineo Ruff MD 75 [facility] [place] [address] [email or web address] COLONOSCOPY 01/31/2025 1:00 PM EST Office Visit [facility] Cardiovascular Medicine 32 [facility], 5th Floor, [address] [place] [address] Karena Betancur MD 55 [facility] [address] [place] [address] [email or web address] Scheduled Procedures Name Priority Associated Diagnoses [...] documented as of this encounter Care Teams Avionics Systems Repairer Relationship Specialty Start Date End Date Laura Mock MD, DMD 1 [facility] [address] [place] [address] [email or web address] PCP - General Internal Medicine 06/04/21 11/11/23 Pcp, Unknown PCP - General 11/12/23 11/16/23 Laura Mock MD, DMD 1 [facility] [address] [place] [address] [email or web address] PCP - General Internal Medicine 11/17/23 12/28/23 Pcp, Unknown PCP - General 02/28/24 03/04/24 Nicole Newell [place] [address] [place] [address] PCP - General 03/05/24 05/17/24 Laura Mock MD, DMD [address] [address] [email or web address] du PCP - General Internal Medicine 05/18/24 Rina Swenson MD Psychiatry 07/09/17 Laura Mock MD, DMD [address] [address] [email or web address] Partners Attributed Provider 09/01/21 07/03/23 Laura Mock MD, DMD [address] [address] [email or web address] du Insurance Assigned Provider 05/31/23 03/01/24 Jakob Bob MD [address] [place] [address] [place] [address] [email or web address] Cardiology 08/22/23 Jose Cruz MD [address] [place] [address], [address] [address] Cardiology 08/22/23 Laura Mock MD, DMD 1 [facility] [address] [place] [address] [email or web address] Partners Attributed Provider 09/01/21 07/03/23 [facility] [phone]. Consulting Provider 08/22/23 [facility] Connect 12/24/23 03/11/24 Cyril Morales [address] [place] [address] Nurse Practitioner 02/27/24 documented as of this encounter Additional Source Comments The information contained in this document represents components of the legal health record. It is not the complete legal health record.[facility]
--- OUTSIDE RECORDS SUMMARY | 2024-11-25 14:41 | XMS_ITS | Encounter Summary ---
Author Organization [facility] Address [facility] [place] [address] [address] Phone Care Team Providers Care Analytical Research Chemist Name Role Phone Artie Meehan MD Primary Care Provider Artie Meehan MD Unavailable [phone] Rina Swenson MD Unavailable [phone] Laura Mock MD, DMD Primary Car e Provider Laura Mock MD, DMD Unavailable Laura Mock MD, DMD Unavailable Jakob Bob MD Unavailable [phone] Jose Cruz MD Unavailable [phone] Laura Mock MD, DMD Unavailable Pcp, Unknown [...] sequela Artie Meehan MD Phone: tel: fax: [facility] [address] [place] [address] Phone: tel: Referral ID Status Reason Start Date Expiration Date Visits Re quested Visits Authorized [id number] Closed 11/27/2018 02/23/2019 99 99 Encounter Details Date Type Department Care Team (Latest Contact Info) Description 11/27/2018 Transcribe Orders [facility] Rehabilitation Services [address] [place] [address] Artie Meehan MD [address] [place] [phone] Left wrist fracture, sequela (Primary Dx) Social [...] Description 01/05/2025 11:00 AM EST [facility] [address] [facility] [address] [place] [address] Irineo Ruff MD [address] [place] [address] [place] [address] [email or web address] 01/10/2025 Procedure Pass [facility] Endoscopy Department [address] [place] [address] 01/10/2025 7:30 AM EST Hospital Encounter [facility] Endoscopy Department [address] [place] [address] Irineo Ruff MD 75 [facility] [place] [address] [email or web address] 01/10/2025 7:30 AM EST - 01/10/2025 8:15 AM EST Surgery [facility] Endoscopy Department [address] [place] [address] Irineo Ruff MD [address] [place] [address] [email or web address] [email or web address] 01/31/2025 1:00 PM EST Office Visit [facility] Cardiovascular Medicine 32 [facility], 5th Floor, [address] [place] [address] Karena Betancur MD [address] [address] [email or web address] Scheduled Procedures Name Priority Associated Diagnoses Date/Ti me COLONOSCOPY Abnormal colonoscopy 01/10/2025 7:30 AM EST documented as of this encounter Procedures Procedure Name Priority Date/Time Associated Diagnosis Comments AMB REFERRAL TO [facility] OCCUPATIONAL THERAPY Routine 12/08/2018 4:10 PM EDT Left wrist fracture, sequela documented in this encounter Results * Ambulatory referral to [facility] Occupational Therapy (12/08/2018 4:10 PM EDT) Artie Meehan MD AMB [facility] REFERRALS Final R esult documented in this encounter Visit Diagnoses Diagnosis Left wrist fracture, sequela- Primary Abnormal colonoscopy documented in this encounter Additional Health Concerns Infection Onset Date Last Indicated Resolved Time CoV-Presumed 03/23/2022 03/23/2022 04/13/2022 1:23 AM EST CoV-Risk 11/12/2023 11/12/2023 11/12/2023 5:12 PM EDT COVID-19 11/12/2023 11/12/2023 12/03/2023 1:21 AM EDT documented as of this encounter Care Teams Analytical Research Chemist Relationship Specialty Start Date End Date Artie Meehan MD [address] [place] [address] [place] [address] PCP - General Internal Medicine 10/26/17 06/03/21 Laura Mock MD, DMD [address] [address] [email or web address] PCP - General Internal Medicine 06/04/21 11/11/23 Pcp, Unknown PCP - General 11/12/23 11/16/23 Laura Mock MD, DMD [address] [address] [email or web address] PCP - General Internal Medicine 11/17/23 12/28/23 Pcp, Unknown PCP - General 02/28/24 03/04/24 Nicole Newell MD [address] [place] [address] PCP - General 03/05/24 05/17/24 Laura Mock MD, DMD [address] [address] [email or web address] PCP - General Internal Medicine 05/18/24 Artie Meehan MD [address] [place] [address] [place] [address] Internal Medicine 10/26/17 04/23/22 Rina Swenson MD [address] [place] [address] [place] [address] Psychiatry 07/09/17 Laura Mock MD, DMD [address] [address] [email or web address] Partners Attributed Provider 09/01/21 07/03/23 Laura Mock MD, DMD [address] [address] [email or web address] du Insurance Assigned Provider 05/31/23 03/01/24 Jakob Bob MD [address] [place] [address] [email or web address] Cardiology 08/22/23 Jose Cruz MD [address] [place] [address] [email or web address] Cardiology 08/22/23 Laura Mock MD, DMD [address] [address] [email or web address] Partners Attributed Provider 09/01/21 07/03/23 [facility] [phone]. Consulting Provider 08/22/23 [facility] Connect 12/24/23 03/11/24 Cyril Morales [address] [place] [address] Nurse Practitioner 02/27/24 documented as of this encounter Additional Source Comments The information contained in this document represents components of the legal health record. It is not the complete legal health record.[facility]
--- OUTSIDE RECORDS SUMMARY | 2024-11-25 14:41 | XMS_ITS | Encounter Summary ---
Author Organization [facility] Address [facility] [employer] [facility] [address] [place] [address] Phone Care Team Providers Care Cloth Shrinker Name Role Phone Artie Meehan MD Primary Care Provider Artie Meehan MD Unavailable [phone] Rina Swenson MD Unavailable Laura Mock MD, DMD Primary Car e Provider Laura Mock MD, DMD Unavailable Laura Mock MD, DMD Unavailable Jakob Bob MD Unavailable Jose Cruz MD Unavailable [phone] Laura Mock MD, DMD Unavailable Pcp, Unknown Primary Care Provider UnavailLaura Ascencio MD, DMD Primary Car e Provider Pcp, Unknown Primary Care Provider UnavailNicole Arguello MD Primary Care Provide r Laura Mock MD, DMD Primary Car e Provider Encounter Details Date Type Department Care Team (Late st Contact Info) Description 05/15/2018 Procedure Pass [facility], [address] [address] Social History Tobacco Use Types Packs/Day Years [...] 01/05/2025 11:00 AM EST Pre-Admission Testing [address] [place] [address] Irineo Ruff MD [address] [place] [address] [place] [address] [email or web address] 01/10/2025 Procedure Pass [facility] Endoscopy Department [address] [place] [address] 01/10/2025 7:30 AM EST Hospital Encounter [facility] Endoscopy Department [address] [place] [address] Irineo Ruff MD [address] [place] [address] [email or web address] 01/10/2025 7:30 AM EST - 01/10/2025 8:15 AM EST Surgery [facility] Endoscopy Department [address] [place] [address] Irineo Ruff MD [address] [place] [address] [email or web address] COLONOSCOPY 01/31/2025 1:00 PM EST Office Visit [facility] Cardiovascular Medicine [address] [place] [address], 5th Floor, [address] [place] [address] Karena Betancur MD [address] [place] [address] [email or web address] Scheduled Procedures Name Priority Associated Diagnoses [...] documented as of this encounter Care Teams Cloth Shrinker Relationship Specialty Start Date End Date Artie Meehan MD [address] [place] [address] PCP - General Internal Medicine 10/26/17 06/03/21 Laura Mock MD, DMD [address] [address] [email or web address] PCP - General Internal Medicine 06/04/21 11/11/23 Pcp, Unknown PCP - General 11/12/23 11/16/23 Laura Mock MD, DMD [address] [address] [email or web address] PCP - General Internal Medicine 11/17/23 12/28/23 Pcp, Unknown PCP - General 02/28/24 03/04/24 Nicole Newell MD [address] [place] [address] PCP - General 03/05/24 05/17/24 Laura Mock MD, DMD [address] [address] [email or web address] PCP - General Internal Medicine 05/18/24 Artie Meehan MD [address] [place] [address] Dr [address] [place] [address] Internal Medicine 10/26/17 04/23/22 Rina Swenson MD [address] [place] [address] Dr Dior [address] [place] [address] Psychiatry 07/09/17 Laura Mock MD, DMD [address] [address] [email or web address] Partners Attributed Provider 09/01/21 07/03/23 Laura Mock MD, DMD [address] [address] [email or web address] du Insurance Assigned Provider 05/31/23 03/01/24 Jakob Bob MD [address] [place], [place] [address] [place] [address] [email or web address] Cardiology 08/22/23 Jose Cruz MD [address] [place] [address], [facility] [address] [place] [address] Cardiology 08/22/23 Laura Mock MD, DMD 1 [facility] [address] [place] [address] [email or web address] Attributed Provider 09/01/21 07/03/23 [facility] [phone]. Consulting Provider 08/22/23 [facility] Connect 12/24/23 03/11/24 Cyril Morales [address] [place] [address] Nurse Practitioner 02/27/24 documented as of this encounter Additional Source Comments The information contained in this document represents components of the legal health record. It is not the complete legal health record.[facility]
--- OUTSIDE RECORDS SUMMARY | 2024-11-25 14:41 | XMS_ITS | Encounter Summary ---
Author Organization [facility] Address [facility] [address] [place] [address] Phone Care Team Providers Care Poly Area Supervisor Name Role Phone Artie Meehan MD Primary Care Provider Artie Meehan MD Unavailable [phone] Rina Swenson MD Unavailable Laura Mock MD, DMD Primary Car e Provider Laura Mock MD, DMD Unavailable Laura Mock MD, DMD Unavailable Jakob Bob MD Unavailable [phone] Jose Cruz MD Unavailable Laura Mock MD, DMD Unavailable Pcp, Unknown Primary Care Provider UnavailLaura Ascencio MD, DMD Primary Car e Provider Pcp, Unknown Primary Care Provider UnavailNicole Arguello MD Primary Care Provide r Laura Mock MD, DMD Primary Car e Provider Encounter Details Date Type Department Care Team (Late st Contact Info) Description 11/27/2018 Transcribe Orders [facility] Rehabilitation Services [address] [place] [address] Artie Meehan MD [address] [place] [address] [place] [address] Social History Tobacco Use Types Packs/Day Years [...] 01/05/2025 11:00 AM EST Pre-Admission Testing [address] [address] Irineo Ruff MD [address] [place] [address] [email or web address] 01/10/2025 Procedure Pass [facility] Endoscopy Department [address] [place] [address] 01/10/2025 7:30 AM EST Hospital Encounter [facility] Endoscopy Department [address] [place] [address] Irineo Ruff MD [address] [place] [address] [email or web address] 01/10/2025 7:30 AM EST - 01/10/2025 8:15 AM EST Surgery [facility] Endoscopy Department [address] [place] [address] Irineo Ruff MD [address] [place] [address] [place] [address] [email or web address] [email or web address] 01/31/2025 1:00 PM EST Office Visit [facility] Cardiovascular Medicine 32 [facility], 5th Floor, [address] [place] [address] Karena Betancur MD [address] [facility] [address] [place] [address] [email or web address] Scheduled Procedures Name Priority Associated Diagnoses [...] documented as of this encounter Care Teams Poly Area Supervisor Relationship Specialty Start Date End Date Artie Meehan MD [address] [place] [address] [place] [address] PCP - General Internal Medicine 10/26/17 06/03/21 Laura Mock MD, DMD [address] [address] [email or web address] PCP - General Internal Medicine 06/04/21 11/11/23 Pcp, Unknown PCP - General 11/12/23 11/16/23 Laura Mock MD, DMD [address] [address] [email or web address] PCP - General Internal Medicine 11/17/23 12/28/23 Pcp, Unknown PCP - General 02/28/24 03/04/24 [place] [address] [address] PCP - General 03/05/24 05/17/24 Laura Mock MD, DMD [address] [address] [email or web address] PCP - General Internal Medicine 05/18/24 Artie Meehan MD [address] [place] [address] Dr [address] [place] [address] Internal Medicine 10/26/17 04/23/22 Rina Swenson MD [address] [place] [address] Dr Dior [address] [place] [address] Psychiatry 07/09/17 Laura Mock MD, DMD [address] [address] [email or web address] Attributed Provider 09/01/21 07/03/23 Laura Mock MD, DMD [address] [address] [email or web address] Insurance Assigned Provider 05/31/23 03/01/24 Jakob Bob MD [address] [place], [place] [address] [place] [address] [email or web address] Cardiology 08/22/23 Jose Cruz MD [address] [place], [place] [address], [place] [address] Cardiology 08/22/23 Laura Mock MD, DMD 1 [facility] [address] [place] [address] [email or web address] Attributed Provider 09/01/21 07/03/23 [facility] [phone]. Consulting Provider 08/22/23 [facility] Connect 12/24/23 03/11/24 Cyril Morales [address] [place] [address] Nurse Practitioner 02/27/24 documented as of this encounter Additional Source Comments The information contained in this document represents components of the legal health record. It is not the complete legal health record.[facility]
--- OUTSIDE RECORDS SUMMARY | 2024-11-25 14:41 | XMS_ITS | Encounter Summary ---
Author Organization [facility] Address [facility] [employer] [facility] [address] [place] [address] Phone Care Team Providers Care Speedboat Driver Name Role Phone Artie Meehan MD Primary Care Provider Artie Meehan MD Unavailable [phone] Rina Swenson MD Unavailable Laura Mock MD, DMD Primary Car e Provider Laura Mock MD, DMD Unavailable Laura Mock MD, DMD Unavailable Jakob Bob MD Unavailable Jose Cruz MD Unavailable Laura Mock MD, DMD Unavailable Pcp, Unknown Primary Care Provider UnavailLaura Ascencio MD, DMD Primary Car e Provider Pcp, Unknown Primary Care Provider UnavailNicole Arguello MD Primary Care Provide r Laura oMck MD, DMD Primary Car e Provider Encounter Details Date Type Department Care Team (Late st Contact Info) Description 12/11/2018 Ancillary Orders Virtual Department [address] [place] [address] Artie Meehan MD [address] [place] [address] [place] [address] Breast screening Social History Tobacco Use Types [...] Description 01/05/2025 11:00 AM EST Pre-Admission Testing [address] [address] Irineo Ruff MD [address] [place] [address] [email or web address] 01/10/2025 Procedure Pass [facility] Endoscopy Department [address] [place] [address] 01/10/2025 7:30 AM EST Hospital Encounter [facility] Endoscopy Department [address] [place] [address] Irineo Ruff MD [address] [place] [address] [email or web address] 01/10/2025 7:30 AM EST - 01/10/2025 8:15 AM EST Surgery [facility] Endoscopy Department [address] [place] [address] Irineo Ruff MD [address] [place] [address] [place] [address] [email or web address] COLONOSCOPY 01/31/2025 1:00 PM EST Office Visit [facility] Cardi[facility] Medicine 32 [facility], 5th Floor, [address] [place] [address] Karena Betancur MD 55 [facility] [address] [place] [address] [email or web address] Scheduled Procedures Name Priority [...] lowers the sensitivity of mammography. POS - [id number] Narrative 01/05/2019 1:52 PM EST Full-field digital [...] whichlowers the sensitivity of mammography. POS - [id number] Artie Meehan MD IMG MG EXAMS Final [...] documented as of this encounter Care Teams Speedboat Driver Relationship Specialty Start Date End Date Artie Meehan MD [address] [place] [address] [place] [address] PCP - General Internal Medicine 10/26/17 06/03/21 Laura Mock MD, DMD [address] [address] [email or web address] PCP - General Internal Medicine 06/04/21 11/11/23 Pcp, Unknown PCP - General 11/12/23 11/16/23 Laura Mock MD, DMD [address] [address] [email or web address] PCP - General Internal Medicine 11/17/23 12/28/23 Pcp, Unknown PCP - General 02/28/24 03/04/24 [place] [address] [address] PCP - General 03/05/24 05/17/24 Laura Mock MD, DMD [address] [address] [email or web address] PCP - General Internal Medicine 05/18/24 Artie Meehan MD [address] [place] [address] Dr [address] [place] [address] Internal Medicine 10/26/17 04/23/22 Rina Swenson MD [address] [place] [address] Dr Dior [address] [place] [address] Psychiatry 07/09/17 Laura Mock MD, DMD [address] [address] [email or web address] Partners Attributed Provider 09/01/21 07/03/23 Laura Mock MD, DMD [address] [address] [email or web address] Insurance Assigned Provider 05/31/23 03/01/24 Jakob Bob MD [address] [place] [address] [place] [address] [email or web address] Cardiology 08/22/23 Jose Cruz MD 22 [facility], [address] [place] [address] [email or web address] Cardiology 08/22/23 Laura Mock MD, DMD [address] [place] [address] [address] [place] [address] [email or web address] [employer] Attributed Provider 09/01/21 07/03/23 [place] [facility] [phone]. Consulting Provider 08/22/23 [facility] Connect 12/24/23 03/11/24 Cyril Morales [address] [place] [address] Nurse Practitioner 02/27/24 documented as of this encounter Additional Source Comments The information contained in this document represents components of the legal health record. It is not the complete legal health record.[facility]
--- OUTSIDE RECORDS SUMMARY | 2024-11-25 14:41 | XMS_ITS | Encounter Summary ---
Author Organization [facility] Address [facility] [employer] [facility] [address] [place] [address] Phone Care Team Providers Care Hob Mill Operator Name Role Phone Artie Meehan MD Primary Care Provider Artie Meehan MD Primary Care Provider Artie Meehan MD Unavailable Rina Swenson MD Unavailable [phone] Laura Mock MD, DMD Primary Car e Provider Laura Mock MD, DMD Unavailable Laura Mock MD, DMD Unavailable Jakob Bob MD Unavailable [phone] Jose Cruz MD Unavailable [phone] Laura Mock MD, DMD Unavailable Pcp, Unknown Primary Care Provider UnavailLaura Ascencio MD, DMD Primary Car e Provider Pcp, Unknown Primary Care Provider UnavailNicole Arguello MD Primary Care Provide r Laura Mock MD, DMD Primary Car e Provider Encounter Details Date Type Department Care Team (Late st Contact Info) Description 08/19/2017 Ancillary Orders Virtual Department [address] [place] [address] Artie Meehan MD [address] [place] [address] [place] [address] Breast screening Social History Tobacco Use Types [...] 01/05/2025 11:00 AM EST Pre-Admission Testing [address] [place] [address] Irineo Ruff MD [address] [place] [address] [email or web address] 01/10/2025 Procedure Pass [facility] Endoscopy Department [address] [place] [address] 01/10/2025 7:30 AM EST Hospital Encounter [facility] Endoscopy Department [address] [place] [address] Irineo Ruff MD [address] [place] [address] [email or web address] 01/10/2025 7:30 AM EST - 01/10/2025 8:15 AM EST Surgery [facility] Endoscopy Department [address] [place] [address] Irineo Ruff MD [address] [place] [address] [place] [address] [email or web address] [email or web address] 01/31/2025 1:00 PM EST Office Visit [facility] Cardiovascular Medicine 32 [facility], 5th Floor, [address] [place] [address] Karena Betancur MD 55 [facility] [address] [place] [address] [email or web address] Scheduled Procedures Name Priority Associated Diagnoses [...] lowers the sensitivity of mammography. POS - [id number] Narrative 09/12/2017 2:03 PM EDT Full-field digital [...] whichlowers the sensitivity of mammography. POS - [id number] Artie Meehan MD IMG MG EXAMS Final [...] documented as of this encounter Care Teams Hob Mill Operator Relationship Specialty Start Date End Date Artie Meehan MD [address] [place] [address] [place] [address] PCP - General Internal Medicine 07/09/17 10/25/17 Artie Meehan MD [address] [place] [address] [place] [address] PCP - General Internal Medicine 10/26/17 06/03/21 Laura Mock MD, DMD 1 [facility] [address] [place] [address] [email or web address] PCP - General Internal Medicine 06/04/21 11/11/23 Pcp, Unknown PCP - General 11/12/23 11/16/23 Laura Mock MD, DMD 1 [facility] [address] [place] [address] [email or web address] PCP - General Internal Medicine 11/17/23 12/28/23 Pcp, Unknown PCP - General 02/28/24 03/04/24 Nicole Newell MD [address] [place] [address] PCP - General 03/05/24 05/17/24 Laura Mock MD, DMD [address] [address] [email or web address] PCP - General Internal Medicine 05/18/24 Artie Meehan MD [address] [place] [address] [place] [address] Internal Medicine 10/26/17 04/23/22 Rina Swenson MD [address] [place] [address] [place] [address] Psychiatry 07/09/17 Laura Mock MD, DMD 1 [facility] [address] [place] [address] [email or web address] Partners Attributed Provider 09/01/21 07/03/23 Laura Mock MD, DMD 1 [facility] [address] [place] [address] [place] [address] [email or web address] Insurance Assigned Provider 05/31/23 03/01/24 Jakob Bob MD [facility] [place] [address] [email or web address] Cardiology 08/22/23 Jose Cruz MD [address] [place] [address] [address] [place] [address] [email or web address] Cardiology 08/22/23 Laura Mock MD, DMD [address] [place] [address] [address] [place] [address] [email or web address] Attributed Provider 09/01/21 07/03/23 [place] [facility] [phone]. Consulting Provider 08/22/23 [facility] Connect 12/24/23 03/11/24 Cyril Morales [address] [place] [address] Nurse Practitioner 02/27/24 documented as of this encounter Additional Source Comments The information contained in this document represents components of the legal health record. It is not the complete legal health record.[facility]
--- OUTSIDE RECORDS SUMMARY | 2024-11-25 14:42 | XMS_ITS | Encounter Summary ---
Author Organization [facility] Address [facility] [email or web address] [facility] [address] [place] [address] Phone Care Team Providers Care Olericulturist Name Role Phone Artie Meehan MD Primary Care Provider Artie Meehan MD Unavailable [phone] Rina Swenson MD Unavailable [phone] Laura Mock MD, DMD Primary Car e [...] st Contact Info) Description 12/19/2017 Procedure Pass [facility] [address] [place] [address] Social History Tobacco Use Types Packs/Day Years [...] Description 01/05/2025 11:00 AM EST Pre-Admission Testing [address] [address] Irineo Ruff MD [address] [place] [address] [email or web address] 01/10/2025 Procedure Pass [facility] Endoscopy Department [address] [place] [address] 01/10/2025 7:30 AM EST Hospital Encounter [facility] Endoscopy Department [address] [place] [address] Irineo Ruff MD [address] [place] [address] [email or web address] 01/10/2025 7:30 AM EST - 01/10/2025 8:15 AM EST Surgery [facility] Endoscopy Department [address] [place] [address] Irineo Ruff MD 75 [facility] [place] [address] [email or web address] [email or web address] 01/31/2025 1:00 PM EST Office Visit [facility] Cardiovascular Medicine 32 [facility], 5th Floor, [address] [place] [address] Karena Betancur MD 55 [facility] [address] [place] [address] [email or web address] Scheduled Procedures Name Priority Associated Diagnoses Date/Ti [...] documented as of this encounter Care Teams Olericulturist Relationship Specialty Start Date End Date Artie Meehan MD [address] [place] [address] [place] [address] PCP - General Internal Medicine 10/26/17 06/03/21 Laura Mock MD, DMD 1 [facility] [address] [place] [address] [email or web address] PCP - General Internal Medicine 06/04/21 11/11/23 Pcp, Unknown PCP - General 11/12/23 11/16/23 Laura Mock MD, DMD 1 [facility] [address] [place] [address] [email or web address] PCP - General Internal Medicine 11/17/23 12/28/23 Pcp, Unknown PCP - General 02/28/24 03/04/24 [place] [address] [address] PCP - General 03/05/24 05/17/24 Laura Mock MD, DMD 1 [facility] [address] [place] [address] [email or web address] PCP - General Internal Medicine 05/18/24 Artie Meehan MD [address] [place] [address] [place] [address] Internal Medicine 10/26/17 04/23/22 Rina Swenson MD [address] [place] [address] [place] [address] Psychiatry 07/09/17 Laura Mock MD, DMD [address] [address] [email or web address] Attributed Provider 09/01/21 07/03/23 Laura Mock MD, DMD [address] [address] [email or web address] Insurance Assigned Provider 05/31/23 03/01/24 Jakob Bob MD [address] [place] [address] [place] [address] [email or web address] Cardiology 08/22/23 Jose Cruz MD 22 [facility], [address] [place] [address] [email or web address] Cardiology 08/22/23 Laura Mock MD, DMD [address] [place] [address] [address] [place] [address] [email or web address] Partners Attributed Provider 09/01/21 07/03/23 [place] [facility] [phone]. Consulting Provider 08/22/23 CAROLANN GREWAL Connect 12/24/23 03/11/24 Cyril Morales [facility] [place] [address] Nurse Practitioner 02/27/24 documented as of this encounter Additional Source Comments The information contained in this document represents components of the legal health record. It is not the complete legal health record.[facility]
--- OUTSIDE RECORDS SUMMARY | 2024-11-25 14:42 | XMS_ITS | Encounter Summary ---
Author Organization [facility] Address [facility] [address] [place] [address] Phone Care Team Providers Care Lead Recoverer Name Role Phone Artie Meehan MD Primary Care Provider Artie Meehan MD Unavailable [phone] Rina Swenson MD Unavailable Laura Mock MD, DMD Primary Car e Provider Laura Mock MD, DMD Unavailable Laura Mock MD, DMD Unavailable Jakob Bob MD Unavailable [phone] Jose Cruz MD Unavailable Laura Mock MD, [...] Expiration Date Visits Re quested Visits Authorized [id number] Closed 05/15/2018 05/15/2019 1 1 Encounter Details Date Type Department Care Team (Late Contact Info) Description 05/15/2018 Ancillary Orders For Login Purposes Only 15 [facility] 2 [address] [place] [address] Artie Meehan MD [address] [place] [address] [place] [address] Pancreatic cyst Social History Tobacco Use Types [...] Description 01/05/2025 11:00 AM EST [facility]-Admission Testing [facility] [address] [address] Irineo Ruff MD 75 [facility] [place] [address] [email or web address] 01/10/2025 Procedure Pass [facility] Endoscopy Department [address] [place] [address] 01/10/2025 7:30 AM EST Hospital Encounter [facility] Endoscopy Department [address] [place] [address] Irineo Ruff MD 75 [facility] [place] [address] [email or web address] 01/10/2025 7:30 AM EST - 01/10/2025 8:15 AM EST Surgery [facility] Endoscopy Department [address] [place] [address] Irineo Ruff MD 75 [facility] [place] [address] [email or web address] [email or web address] 01/31/2025 1:00 PM EST Office Visit [facility] Medicine 32 [facility], 5th Floor, [address] [place] [address] Karena Betancur MD [address] [address] [email or web address] Scheduled Procedures Name Priority Associated Diagnoses Date/Ti [...] renal cysts. Right hepatic lobe cyst. POS [id number] Edited by: Abbie Barnett on 05/22/2018 12:52 [...] renal cysts. Right hepatic lobe cyst. POS [id number] Edited by: Abbie Barnett on 05/22/2018 12:52 PM Artie Meehan MD IMG MR ABDOMEN Final Res ult documented in this encounter Visit Diagnoses Diagnosis Pancreatic cyst Cyst and pseudocyst of pancreas Pancreatic cyst Cyst and pseudocyst of pancreas Abnormal colonoscopy documented in this encounter Additional Health Concerns Infection Onset Date Last Indicated Resolved Time CoV-Presumed 03/23/2022 03/23/2022 04/13/2022 1:23 AM EST CoV-Risk 11/12/2023 11/12/2023 11/12/2023 5:12 PM EDT COVID-19 11/12/2023 11/12/2023 12/03/2023 1:21 AM EDT documented as of this encounter Care Teams Lead Recoverer Relationship Specialty Start Date End Date Artie Meehan MD [address] [place] [address] [place] [address] PCP - General Internal Medicine 10/26/17 06/03/21 Laura Mock MD, DMD [address] [address] [email or web address] PCP - General Internal Medicine 06/04/21 11/11/23 Pcp, Unknown PCP - General 11/12/23 11/16/23 Laura Mock MD, DMD [address] [address] [email or web address] PCP - General Internal Medicine 11/17/23 12/28/23 Pcp, Unknown PCP - General 02/28/24 03/04/24 [place] [address] [address] PCP - General 03/05/24 05/17/24 Laura Mock MD, DMD [address] [address] [email or web address] PCP - General Internal Medicine 05/18/24 Artie Meehan MD [address] [place] [address] Dr Dior [facility] [place] [address] Internal Medicine 10/26/17 04/23/22 Rina Swenson MD [address] [place] [address] Dr Dior [facility] [place] [address] Psychiatry 07/09/17 Laura Mock MD, DMD [address] [address] [email or web address] Partners Attributed Provider 09/01/21 07/03/23 Laura Mock MD, DMD [address] [address] [email or web address] Insurance Assigned Provider 05/31/23 03/01/24 Jakob Bob MD [address] [place], [place] [address] [place] [address] [email or web address] Cardiology 08/22/23 Jose Cruz MD [address] [place] [address], [facility] [address] [place] [address] Cardiology 08/22/23 Laura Mock MD, DMD 1 [place] [address] [email or web address] Attributed Provider 09/01/21 07/03/23 [facility] [phone]. Consulting Provider 08/22/23 [facility] Connect 12/24/23 03/11/24 Cyril Morales [facility] [place] [address] Nurse Practitioner 02/27/24 documented as of this encounter Additional Source Comments The information contained in this document represents components of the legal health record. It is not the complete legal health record.[facility]
--- OUTSIDE RECORDS SUMMARY | 2024-11-25 14:42 | XMS_ITS | Encounter Summary ---
Author Organization [facility] Address [facility] [employer] [facility] [address] [place] [address] Phone Care Team Providers Care Mathematics Department Chair Name Role Phone Artie Meehan MD Primary Care Provider Artie Meehan MD Unavailable [phone] Rina Swenson MD Unavailable Laura Mock MD, DMD Primary Car e Provider Laura Mock MD, DMD Unavailable Laura Mcok MD, DMD Unavailable Jakob Bob MD Unavailable [phone] Jose Cruz MD Unavailable Laura Mock MD, DMD Unavailable Pcp, Unknown Primary Care Provider UnavailLaura Ascencio MD, DMD Primary Car e Provider Pcp, Unknown Primary Care Provider UnavailNicole Arguello MD Primary Care Provide r Laura Mock MD, DMD Primary Car e Provider Encounter Details Date Type Department Care Team (Late st Contact Info) Description 05/20/2018 Transcribe Orders [facility] [address] [place] [address] Artie Meehan MD [address] [place] [address] [place] [address] 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) [...] Description 01/05/2025 11:00 AM EST Pre-Admission Testing [facility] 45 [facility] 2nd [place] [address] Irineo Ruff MD [address] [place] [address] [email or web address] 01/10/2025 Procedure Pass [facility] Endoscopy Department [address] [place] [address] 01/10/2025 7:30 AM EST Hospital Encounter [facility] Endoscopy Department [address] [place] [address] Irineo Ruff MD [address] [place] [address] [email or web address] 01/10/2025 7:30 AM EST - 01/10/2025 8:15 AM EST Surgery [facility] Endoscopy Department [address] [place] [address] Irineo Ruff MD [address] [place] [address] [place] [address] [email or web address] COLONOSCOPY 01/31/2025 1:00 PM EST Office Visit [facility] Cardiovascular Medicine 32 [facility], 5th Floor, [address] [place] [address] Karena Betancur MD 55 [facility] [address] [place] [address] [email or web address] Scheduled Procedures Name Priority Associated Diagnoses Date/Ti me COLONOSCOPY Abnormal colonoscopy 01/10/2025 7:30 AM EST documented as of this encounter Visit Diagnoses Diagnosis 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- Primary Abnormal colonoscopy documented in this encounter Additional Health Concerns Infection Onset Date Last Indicated Resolved Time CoV-Presumed 03/23/2022 03/23/2022 04/13/2022 1:23 AM EST CoV-Risk 11/12/2023 11/12/2023 11/12/2023 5:12 PM EDT COVID-19 11/12/2023 11/12/2023 12/03/2023 1:21 AM EDT documented as of this encounter Care Teams Mathematics Department Chair Relationship Specialty Start Date End Date Artie Meehan MD [address] [place] [address] [place] [address] PCP - General Internal Medicine 10/26/17 06/03/21 Laura Mock MD, DMD [address] [address] [email or web address] PCP - General Internal Medicine 06/04/21 11/11/23 Pcp, Unknown PCP - General 11/12/23 11/16/23 Laura Mock MD, DMD 1 [facility] [address] [place] [address] [email or web address] PCP - General Internal Medicine 11/17/23 12/28/23 Pcp, Unknown PCP - General 02/28/24 03/04/24 [place] [address] [address] PCP - General 03/05/24 05/17/24 Laura Mock MD, DMD [address] [address] [email or web address] PCP - General Internal Medicine 05/18/24 Artie Meehan MD [address] [place] [address] [facility] [place] [address] Internal Medicine 10/26/17 04/23/22 Rina Swenson MD [address] [place] [address] Dr [address] [place] [address] Psychiatry 07/09/17 Laura Mock MD, DMD [address] [address] [email or web address] Partners Attributed Provider 09/01/21 07/03/23 Laura Mock MD, DMD [address] [address] [email or web address] Insurance Assigned Provider 05/31/23 03/01/24 Jakob Bob MD 75 [facility] [address] [place] [address] [email or web address] Cardiology 08/22/23 Jose Cruz MD 22 [facility], [address] [place] [address] [email or web address] Cardiology 08/22/23 Laura Mock MD, DMD 1 [facility] [address] [place] [address] [email or web address] Partners Attributed Provider 09/01/21 07/03/23 [place] [facility] [phone]. Consulting Provider 08/22/23 [facility] Connect 12/24/23 03/11/24 Cyril Morales [facility] [place] [address] Nurse Practitioner 02/27/24 documented as of this encounter Additional Source Comments The information contained in this document represents components of the legal health record. It is not the complete legal health record.[facility]
--- OUTSIDE RECORDS SUMMARY | 2024-11-25 14:42 | XMS_ITS | Encounter Summary ---
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 Social History [...] Upcoming Encounters Date Type Department Care Team ([facility] Contact Info) Description 01/05/2025 11:00 AM EST Pre-Admission Testing [address] 2nd [place] [address] Irineo Ruff MD [address] [place] [address] [email or web address] 01/10/2025 Procedure Pass [facility] Endoscopy Department [address] [place] [address] 01/10/2025 7:30 AM EST Hospital Encounter [facility] Endoscopy Department [address] [place] [address] Irineo Ruff MD [address] [place] [address] [email or web address] 01/10/2025 7:30 AM EST - 01/10/2025 8:15 AM EST Surgery [facility] Endoscopy Department [address] [place] [address] Irineo Ruff MD [address] [place] [address] [place] [address] [email or web address] 01/31/2025 1:00 PM EST Office Visit [facility] Cardiovascular Medicine 32 [facility], 5th Floor, [address] [place] [address] Karena Betancur MD 55 [facility] [address] [place] [address] [email or web address] Scheduled Procedures Name Priority Associated Diagnoses Date/Ti me COLONOSCOPY Abnormal colonoscopy 01/10/2025 7:30 AM EST documented as of this encounter Procedures Procedure Name Priority Date/Time Associated Diagnosis Comments PT-INR STAT 05/23/2018 11:36 AM EDT 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 documented in this encounter Results * (ABNORMAL) PT-INR (05/23/2018 11:36 AM EDT) PT 14.8(H) 10.2 - 12.9 sec [facility] INR 1.3(H) 0.9 - 1.1 [facility] Comment:Therapeutic range fo r oral Vitamin K antagonists: 2.0-3.5 Blood 05/23/2018 11:3 6 AM EDT 05/23/2018 11:39 AM EDT Artie Meehan MD LAB BLOOD ORDERABLES Neela l Result Performing Organization Address City/State/[facility] Co de Phone Number [address] [address] documented in this encounter Visit Diagnoses Diagnosis 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 Abnormal colonoscopy documented in this encounter Additional Health Concerns Infection Onset Date Last Indicated Resolved Time CoV-Presumed 03/23/2022 03/23/2022 04/13/2022 1:23 AM EST CoV-Risk 11/12/2023 11/12/2023 11/12/2023 5:12 PM EDT COVID-19 11/12/2023 11/12/2023 12/03/2023 1:21 AM EDT documented as of this encounter Care Teams Venipuncturist Relationship Specialty Start Date End Date Artie Meehan MD [address] [place] [address] [place] [address] PCP - General Internal Medicine 10/26/17 06/03/21 Laura Mock MD, DMD 1 [facility] [address] [place] [address] [email or web address] PCP - General Internal Medicine 06/04/21 11/11/23 Pcp, Unknown PCP - General 11/12/23 11/16/23 Laura Mock MD, DMD [address] [address] [email or web address] PCP - General Internal Medicine 11/17/23 12/28/23 Pcp, Unknown PCP - General 02/28/24 03/04/24 Nicole Newell MD [address] [place] [address] PCP - General 03/05/24 05/17/24 Laura Mock MD, DMD [address] [address] [email or web address] PCP - General Internal Medicine 05/18/24 Artie Meehan MD [address] [place] [address] [place] [address] Internal Medicine 10/26/17 04/23/22 Rina Swenson MD [address] [place] [address] [place] [address] Psychiatry 07/09/17 Laura Mock MD, DMD [address] [address] [email or web address] Attributed Provider 09/01/21 07/03/23 Laura Mock MD, DMD [address] [address] [email or web address] Insurance Assigned Provider 05/31/23 03/01/24 Jakob Bob MD [address] [place] [address] [email or web address] Cardiology 08/22/23 Jose Cruz MD [address] [place] [address] Cardiology 08/22/23 Laura Mock MD, DMD [address] [address] [email or web address] Attributed Provider 09/01/21 07/03/23 [place] [facility] [phone]. Consulting Provider 08/22/23 [facility] Connect 12/24/23 03/11/24 Cyril Morales [address] [place] [address] Nurse Practitioner 02/27/24 documented as of this encounter Additional Source Comments The information contained in this document represents components of the legal health record. It is not the complete legal health record.[facility]
--- OUTSIDE RECORDS SUMMARY | 2024-11-25 14:42 | XMS_ITS | Encounter Summary ---
Author Organization [facility] Address [facility] [address] [place] [address] Phone Care Team Providers Care Chrome Cleaner Name Role Phone Artie Meehan MD Primary Care Provider Artie Meehan MD Unavailable [phone] Rina Swenson MD Unavailable Laura Mock MD, [...] Specialty Diagnoses / Procedures Referred By Bandar t Referred To Contact Procedures MRI Lower Extremity Outside (No Interpretation) Daryn Moyer MD Phone: tel: fax: mailto:[email or web address] Referral ID Status Reason Start Date Expiration Date Visits Re quested Visits Authorized [id number] Closed 01/06/2018 01/06/2019 1 1 Encounter Details Date Type Department Care Team (Late st Contact Info) Description 01/06/2018 Transcribe Orders [facility] [address] [place] [address] Shira [email or web address] Social History Tobacco Use Types Packs/Day Years [...] Description 01/05/2025 11:00 AM EST Pre-Admission Testing [facility] 45 [facility] 2nd [place] [address] Irineo Ruff MD [address] [place] [address] [email or web address] 01/10/2025 Procedure Pass [facility] Endoscopy Department [address] [place] [address] 01/10/2025 7:30 AM EST Hospital Encounter [facility] Endoscopy Department [address] [place] [address] Irineo Ruff MD [address] [place] [address] [place] [address] [email or web address] 01/10/2025 7:30 AM EST - 01/10/2025 8:15 AM EST Surgery [facility] Endoscopy Department [address] [place] [address] Irineo Rfuf MD 75 [facility], [place] [address] [email or web address] 01/31/2025 1:00 PM EST Office Visit [facility] Cardiovascular Medicine 32 [facility], 5th Floor, [address] [place] [address] Karena Betancur MD 55 [facility] [address] [place] [address] [email or web address] Scheduled Procedures Name Priority Associated Diagnoses Date/Ti me COLONOSCOPY Abnormal colonoscopy 01/10/2025 7:30 AM EST documented as of this encounter Results * MRI Lower Extremity Outside (No Interpretation) (01/06/2018 11:46 AM EST) [facility]ative [facility] 11:46 AM EST This study is for PACS storage only and not for interpretation. us Daryn Moyer MD IMG OUTSIDE IMAGING W/OUT INT ERPRETATION Final Result PERCIPIO_H documented in this encounter Visit Diagnoses Not on filedocumented in this encounter Additional Health Concerns Infection Onset Date Last Indicated Resolved Time CoV-Presumed 03/23/2022 03/23/2022 04/13/2022 1:23 AM EST CoV-Risk 11/12/2023 11/12/2023 11/12/2023 5:12 PM EDT COVID-19 11/12/2023 11/12/2023 12/03/2023 1:21 AM EDT documented as of this encounter Care Teams Chrome Cleaner Relationship Specialty Start Date End Date Artie Meehan MD [address] [place] [address] [place] [address] PCP - General Internal Medicine 10/26/17 06/03/21 Laura Mock MD, DMD 1 [facility] [address] [place] [address] [email or web address] PCP - General Internal Medicine 06/04/21 11/11/23 Pcp, Unknown PCP - General 11/12/23 11/16/23 Laura Mock MD, DMD 1 [facility] [address] [place] [address] [email or web address] PCP - General Internal Medicine 11/17/23 12/28/23 Pcp, Unknown PCP - General 02/28/24 03/04/24 Nicole Newell MD [address] [place] [address] PCP - General 03/05/24 05/17/24 Laura Mock MD, DMD [address] [address] [email or web address] PCP - General Internal Medicine 05/18/24 Artie Meehan MD [address] [place] [address] [place] [address] Internal Medicine 10/26/17 04/23/22 Rina Swenson MD [address] [place] [address] [place] [address] Psychiatry 07/09/17 Laura Mock MD, DMD 1 [facility] [address] [place] [address] [email or web address] Attributed Provider 09/01/21 07/03/23 Laura Mock MD, DMD [address] [address] [email or web address] Insurance Assigned Provider 05/31/23 03/01/24 Jakob Bob MD [address] [place] [address] [email or web address] Cardiology 08/22/23 Jose Cruz MD [address] [place] [address] [email or web address] Cardiology 08/22/23 Laura Mock MD, DMD [address] [address] [email or web address] Attributed Provider 09/01/21 07/03/23 [facility] [phone]. Consulting Provider 08/22/23 [facility] Connect 12/24/23 03/11/24 Cyril Morales [address] [place] [address] Nurse Practitioner 02/27/24 documented as of this encounter Additional Source Comments The information contained in this document represents components of the legal health record. It is not the complete legal health record.[facility]
--- OUTSIDE RECORDS SUMMARY | 2024-11-25 14:42 | XMS_ITS | Encounter Summary ---
Author Organization [facility] Address [facility] [address] [place] [address] Phone Care Team Providers Care Emissions Testing And Repair Technician Name Role Phone Artie Meehan MD Primary Care Provider Artie Meehan MD Unavailable [phone] Rina Swenson MD Unavailable Laura Mock MD, [...] (GI/) Daryn Moyer MD Phone: tel: fax: mailto:[email or web address] Referral ID Status Reason Start Date Expiration Date Visits Re quested Visits Authorized [id number] Closed 12/24/2017 12/24/2018 1 1 Encounter Details Date Type Department Care Team ([facility] Contact Info) Description 12/24/2017 Ancillary Orders [facility] Urology [address] [place], [place] [address]23 [place] [address] Daryn Moyer MD [address] [place] [address] [address] [place] [address] [email or web address] Social History Tobacco Use [...] Upcoming Encounters Date Type Department Care Team ([facility] Contact Info) Description 01/05/2025 11:00 AM EST Pre-Admission Testing [facility] 2nd [place] [address] Irineo Ruff MD [address] [place] [address] [place] [address] [email or web address] 01/10/2025 Procedure Pass [facility] Endoscopy Department [address] [place] [address] 01/10/2025 7:30 AM EST Hospital Encounter [facility] Endoscopy Department [address] [place] [address] Irineo Ruff MD 75 [facility] [place] [address] [email or web address] 01/10/2025 7:30 AM EST - 01/10/2025 8:15 AM EST Surgery [facility] Endoscopy Department [address] [place] [address] Irineo Ruff MD [address] [facility] [place] [address] [email or web address] [email or web address] 01/31/2025 1:00 PM EST Office [place] [facility] [place] 32 [facility], 5th Floor, [address] [place] [address] Karena Betancur MD [address] [address] [email or web address] Scheduled Procedures Name Priority Associated [...] created by Demond Holly. Daryn Moyer MD IM MR PELVIS Final Result documented in this encounter Visit Diagnoses Diagnosis Gross hematuria Gross hematuria Abnormal colonoscopy documented in this encounter Additional Health Concerns Infection Onset Date Last Indicated Resolved Time CoV-Presumed 03/23/2022 03/23/2022 04/13/2022 1:23 AM EST CoV-Risk 11/12/2023 11/12/2023 11/12/2023 5:12 PM EDT COVID-19 11/12/2023 11/12/2023 12/03/2023 1:21 AM EDT documented as of this encounter Care Teams Emissions Testing And Repair Technician Relationship Specialty Start Date End Date Artie Meehan MD [address] [place] [address] [place] [address] PCP - General Internal Medicine 10/26/17 06/03/21 Laura Mock MD, DMD 1 [facility] [address] [place] [address] [email or web address] PCP - General Internal Medicine 06/04/21 11/11/23 Pcp, Unknown PCP - General 11/12/23 11/16/23 Laura Mock MD, DMD 1 [facility] [address] [place] [address] [email or web address] PCP - General Internal Medicine 11/17/23 12/28/23 Pcp, Unknown PCP - General 02/28/24 03/04/24 Nicole Newell MD [address] [place] [address] PCP - General 03/05/24 05/17/24 Laura Mock MD, DMD [address] [address] [email or web address] PCP - General Internal Medicine 05/18/24 Artie Meehan MD [address] [place] [address] [place] [address] Internal Medicine 10/26/17 04/23/22 Rina Swenson MD [address] [place] [address] [place] [address] Psychiatry 07/09/17 Laura Mock MD, DMD [address] [address] [email or web address] Attributed Provider 09/01/21 07/03/23 Laura Mock MD, DMD [address] [address] [email or web address] Insurance Assigned Provider 05/31/23 03/01/24 Jakob Bob MD [address] [place] [address] [email or web address] Cardiology 08/22/23 Jose Cruz MD [address] [place] [address] Cardiology 08/22/23 Laura Mock MD, DMD [address] [address] [email or web address] Attributed Provider 09/01/21 07/03/23 [facility] [phone]. Consulting Provider 08/22/23 [facility] Connect 12/24/23 03/11/24 Cyril Morales [address] [place] [address] Nurse Practitioner 02/27/24 documented as of this encounter Additional Source Comments The information contained in this document represents components of the legal health record. It is not the complete legal health record.[facility]
--- OUTSIDE RECORDS SUMMARY | 2024-11-25 14:42 | XMS_ITS | Encounter Summary ---
Author Organization [facility] Address [facility] [employer] [facility] [address] [place] [address] Phone Care Team Providers Care Cloth Stock Sorter Name Role Phone Artie Meehan MD Primary Care Provider Artie Meehan MD Unavailable [phone] Rina Swenson MD Unavailable [phone] Laura Mock MD, DMD Primary Car e Provider Laura Mock MD, DMD Unavailable Laura Mock MD, DMD Unavailable Jakob Bob MD Unavailable Jose Cruz MD Unavailable [phone] Laura Mock MD, DMD Unavailable Pcp, Unknown Primary Care Provider UnavailLaura Ascencio MD, DMD Primary Car e Provider Pcp, Unknown Primary Care Provider UnavailNicole Arguello MD Primary Care Provide r Laura Mock MD, DMD Primary Car e Provider Encounter Details Date Type Department Care Team (Late st Contact Info) Description 12/24/2017 Procedure Pass [facility] 75 [place] [address] Social History Tobacco Use Types Packs/Day Years [...] Description 01/05/2025 11:00 AM EST Pre-Admission Testing [address] [place] [address] [address] Irineo Ruff MD [address] [place] [address] [email or web address] 01/10/2025 Procedure Pass [facility] Endoscopy Department [address] [place] [address] 01/10/2025 7:30 AM EST Hospital Encounter [facility] Endoscopy Department [address] [place] [address] Irineo Ruff MD [address] [place] [address] [email or web address] 01/10/2025 7:30 AM EST - 01/10/2025 8:15 AM EST Surgery [facility] Endoscopy Department 75 [place] [address] Irineo Ruff MD 75 [facility] [place] [address] [email or web address] [email or web address] 01/31/2025 1:00 PM EST Office Visit [facility] Cardiovascular Medicine 32 [facility], 5th Floor, [address] [place] [address] Karena Betancur MD 55 [facility] [address] [place] [address] [email or web address] Scheduled Procedures Name Priority Associated Diagnoses [...] as of this encounter Care Teams Cloth Stock Sorter Relationship Specialty Start Date End Date Artie Meehan MD [address] [place] [address] [place] [address] PCP - General Internal Medicine 10/26/17 06/03/21 Laura Mock MD, DMD 1 [facility] [address] [place] [address] [email or web address] PCP - General Internal Medicine 06/04/21 11/11/23 Pcp, Unknown PCP - General 11/12/23 11/16/23 Laura Mock MD, DMD 1 [facility] [address] [place] [address] [email or web address] PCP - General Internal Medicine 11/17/23 12/28/23 Pcp, Unknown PCP - General 02/28/24 03/04/24 [place] [address] [address] PCP - General 03/05/24 05/17/24 Laura Mock MD, DMD [address] [address] [email or web address] PCP - General Internal Medicine 05/18/24 Artie Meehan MD [address] [place] [address] Dr [address] [place] [address] Internal Medicine 10/26/17 04/23/22 Rina Swenson MD [address] [place] [address] [address] Psychiatry 07/09/17 Laura Mock MD, DMD [address] [address] [email or web address] Attributed Provider 09/01/21 07/03/23 Laura Mock MD, DMD [address] [address] [email or web address] Insurance Assigned Provider 05/31/23 03/01/24 Jakob Bob MD [address] [place] [address] [place] [address] [email or web address] Cardiology 08/22/23 Jose Cruz MD 22 [facility] [address] [place] [address] Cardiology 08/22/23 Laura Mock MD, DMD [address] [place] [address] [address] [place] [address] [email or web address] Attributed Provider 09/01/21 07/03/23 [facility] [phone]. Consulting Provider 08/22/23 [facility] Connect 12/24/23 03/11/24 Cyril Morales [address] [place] [address] Nurse Practitioner 02/27/24 documented as of this encounter Additional Source Comments The information contained in this document represents components of the legal health record. It is not the complete legal health record.[facility]
--- OUTSIDE RECORDS SUMMARY | 2024-11-25 14:42 | XMS_ITS | Encounter Summary ---
Author Organization [facility] Address [facility] [employer] [facility] [address] [place] [address] Phone Care Team Providers Care Extermination Supervisor Name Role Phone Artie Meehan MD Primary Care Provider Artie Meehan MD Unavailable [phone] Rian Swenson MD Unavailable [phone] Laura Mock MD, DMD Primary Car e Provider Laura Mock MD, DMD Unavailable Laura Mock MD, DMD Unavailable Jakob Bob MD Unavailable [phone] Jose Cruz MD Unavailable Laura Mock MD, DMD Unavailable Pcp, Unknown Primary Care Provider UnavailLaura Ascencio MD, DMD Primary Car e Provider Pcp, Unknown Primary Care Provider UnavailNicole Arguello MD Primary Care Provide r Laura Mock MD, DMD Primary Car e Provider Encounter Details Date Type Department Care Team (Late st Contact Info) Description 01/06/2018 Procedure Pass [facility] [address] [place] [address] Social History Tobacco Use Types Packs/Day Years [...] Description 01/05/2025 11:00 AM EST Pre-Admission Testing [address] 2nd [place] [address] Irineo Ruff MD [address] [place] [address] [email or web address] 01/10/2025 Procedure Pass [facility] Endoscopy Department [address] [place] [address] 01/10/2025 7:30 AM EST Hospital Encounter [facility] Endoscopy Department [address] [place] [address] Irineo Ruff MD [address] [place] [address] [email or web address] 01/10/2025 7:30 AM EST - 01/10/2025 8:15 AM EST Surgery [facility] Endoscopy Department [address] [place] [address] Irineo Ruff MD [address] [place] [address] [email or web address] COLONOSCOPY 01/31/2025 1:00 PM EST Office Visit [facility] Cardiovascular Medicine [address], 5th Floor, [address] [place] [address] Karena Betancur MD [address] [place] [address] [email or web address] Scheduled Procedures Name Priority Associated [...] documented as of this encounter Care Teams Extermination Supervisor Relationship Specialty Start Date End Date Artie Meehan MD [address] [place] [address] PCP - General Internal Medicine 10/26/17 06/03/21 Laura Mock MD, DMD [address] [address] [email or web address] PCP - General Internal Medicine 06/04/21 11/11/23 Pcp, Unknown PCP - General 11/12/23 11/16/23 Laura Mock MD, DMD [address] [address] [email or web address] PCP - General Internal Medicine 11/17/23 12/28/23 Pcp, Unknown PCP - General 02/28/24 03/04/24 [place] [address] [place] [address] PCP - General 03/05/24 05/17/24 Laura Mock MD, DMD [address] [address] [email or web address] du PCP - General Internal Medicine 05/18/24 Artie Meehan MD [address] [place] [address] Dr [address] [place] [address] Internal Medicine 10/26/17 04/23/22 Rina Swenson MD [address] [place] [address] Dr [address] [place] [address] Psychiatry 07/09/17 Laura Mock MD, DMD [address] [address] [email or web address] du [employer] Attributed Provider 09/01/21 07/03/23 Laura Mock MD, DMD [address] [address] [email or web address] du Insurance Assigned Provider 05/31/23 03/01/24 Jakob Bob MD [address] [place] [address] [address] [place] [address] [email or web address] Cardiology 08/22/23 Jose Cruz MD [address] [place] [address], [address] [place] [address] Cardiology 08/22/23 Laura Mock MD, DMD 1 [facility] [address] [place] [address] [email or web address] Partners Attributed Provider 09/01/21 07/03/23 [facility] [phone]. Consulting Provider 08/22/23 [facility] Connect 12/24/23 03/11/24 Cyril Morales [facility] [place] [address] Nurse Practitioner 02/27/24 documented as of this encounter Additional Source Comments The information contained in this document represents components of the legal health record. It is not the complete legal health record.[facility]
== END 2024-11-25 14:20 | disposition home or self-care (01) ==
LOC: HO.ACS 13:12
PROVIDERS: PCP Internal Medicine; Visit Provider Internal Medicine Medical Oncology
DX: Z79.01 Long term (current) use of anticoagulants (principal)

== ENCOUNTER 2024-11-29 13:42 | Outpatient (AMB) | payer MEDICARE, SELFPAY ==
[2024-11-29 13:47] LABS: Prothrombin Time Whole Bld POC 28.5 sec (11.1-13.5); ~PT, ~INR - Anti Coag Clinic 2.4 (0.9-1.1)
--- NOTE | 2024-11-29 14:05 | MHC.OFFVISCO ---
Intake Intake Visit Reasons: Anticoagulation Allergies latex Allergy (Intermediate, Verified 11/25/24 13:45) Rash Nursing Note INR: 2.4 in therapeutic range Medications and supplements reviewed No changes in health, medications, or supplements, * Previous INR 1.5 -may have missed a dose plus had been drinking a purple tea that is higher in Vitk, plus trying to take care of her daughter's health care needs. * this past week has been having cammomile tea that can raise the INR. Denies any signs and symptoms of bleeding or bruising or clotting. Bleeding, bruising, clotting discussed Nutritional guidance given - eat a balance of fruits and vegetables Dose: increase dose because she wants to keep her purple tea- 4mg x 4 days/ 3mg sun tue thur F/U INR: 10 days Patient verbalizes understanding of instructions given Anti-Coag Initial Assessment Social Hx Patient Tobacco Use Status: Never used Tobacco alcohol intake: never Alcohol intake frequency: does not drink Coding Level of Care Code Est Patient Level 1 Diagnoses Current use of anticoagulant therapy Z79.01 Results AMB INR Fingerstick AMB INR Fingerstick 2.4 Last Edit by Marjorie Suazo RN on 11/29/24 13:49 manual entry Assessment & Plan Assessment & Plan (1) Current use of anticoagulant therapy: Code(s): Z79.01 - [employer] (current) use of 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
--- OUTSIDE RECORDS SUMMARY | 2024-11-29 16:00 | XMS_ITS | Encounter Summary ---
Author Organization [facility] Address [facility] [address] [place] [address] Phone Care Team Providers Care Case Therapist Name Role Phone Artie Meehan MD Unavailable Rina Swenson MD Unavailable [phone] Laura Mock MD, DMD Primary Car e Provider Laura Mock MD, DMD Unavailable Laura Mock MD, DMD Unavailable Jakob Bob MD Unavailable [phone] Jose Cruz MD Unavailable Laura Mock MD, DMD Unavailable Pcp, Unknown Primary Care Provider UnavailLaura Ascencio MD, DMD Primary Car e Provider Pcp, Unknown Primary Care Provider UnavailNicole Arguello MD Primary Care Provide r Laura Mock MD, DMD Primary Car e Provider Encounter Details Date Type Department Care Team (Late st Contact Info) Description 04/05/2022 Anti-coag visit [facility] Anticoagulation Clinic [address] [place] [address] Melvin Stewart, [facility] [address] [place] [address] [email or web address] Social History Tobacco Use Types Packs/Day [...] 01/05/2025 11:00 AM EST Pre-Admission Testing [address] [address] Irineo Ruff MD [address] [place] [address] [email or web address] 01/10/2025 Procedure Pass [facility] Endoscopy Department [address] [place] [address] 01/10/2025 7:30 AM EST Hospital Encounter [facility] Endoscopy Department [address] [place] [address] Irineo Ruff MD [address] [place] [address] [email or web address] 01/10/2025 7:30 AM EST - 01/10/2025 8:15 AM EST Surgery [facility] Endoscopy Department [address] [place] [address] Irineo Ruff MD [address] [place] [address] [email or web address] COLONOSCOPY 01/31/2025 1:00 PM EST Office Visit [facility] Cardiovascular Medicine [address] [facility], 5th Floor, [address] [place] [address] Karena Betancur MD 55 [facility] [address] [place] [address] [email or web address] Scheduled Procedures Name Priority Associated Diagnoses [...] documented as of this encounter Care Teams Case Therapist Relationship Specialty Start Date End Date Laura Mock MD, DMD [address] [address] [email or web address] PCP - General Internal Medicine 06/04/21 11/11/23 Pcp, Unknown PCP - General 11/12/23 11/16/23 Laura Mock MD, DMD [address] [address] [email or web address] PCP - General Internal Medicine 11/17/23 12/28/23 Pcp, Unknown PCP - General 02/28/24 03/04/24 [place] [address] [address] PCP - General 03/05/24 05/17/24 Laura Mock MD, DMD [address] [address] [email or web address] du PCP - General Internal Medicine 05/18/24 Artie Meehan MD [address] [place] [address] Dr [address] [place] [address] Internal Medicine 10/26/17 04/23/22 Rina Swenson MD [address] [place] [address] Dr Dior [address] [place] [address] Psychiatry 07/09/17 Laura Mock MD, DMD [address] [address] [email or web address] du Partners Attributed Provider 09/01/21 07/03/23 Laura Mock MD, DMD [address] [address] [email or web address] du Insurance Assigned Provider 05/31/23 03/01/24 Jakob Bob MD [address] [place] [address] [place] [address] [email or web address] Cardiology 08/22/23 Jose Cruz MD [address] [place] [address], [facility] [address] [place] [address] Cardiology 08/22/23 Laura Mock MD, DMD 1 [place] [address] [email or web address] Partners Attributed Provider 09/01/21 07/03/23 [facility] [phone]. Consulting Provider 08/22/23 [facility] Connect 12/24/23 03/11/24 Cyril Morales [address] [place] [phone] Nurse Practitioner 02/27/24 documented as of this encounter Additional Source Comments The information contained in this document represents components of the legal health record. It is not the complete legal health record.[facility]
--- OUTSIDE RECORDS SUMMARY | 2024-11-29 16:00 | XMS_ITS | Encounter Summary ---
Author Organization [facility] Address [facility] [employer] [facility] [address] [place] [address] Phone Care Team Providers Care Telephone Maintenance Mechanic Name Role Phone Artie Meehan MD Primary Care Provider Artie Meehan MD Unavailable [phone] Rina Swenson MD Unavailable Laura Mock MD, [...] (Late st Contact Info) Description 12/09/2017 Telephone [facility] Urology [address] [facility] [address] [place] [address] Maureen De [email or web address] Question regarding Symtoms (Former pt. of [...] Description 01/05/2025 11:00 AM EST [facility]mission Testing [facility] [address] [facility] 2nd [place] [address] Irineo Ruff MD [address] [place] [address] [email or web address]@[email or web address] 01/10/2025 Procedure Pass [facility] Endoscopy Department [address] [place] [address] 01/10/2025 7:30 AM EST Hospital Encounter [facility] Endoscopy Department [address] [place] [address] Irineo Ruff MD [address] [place] [address] [email or web address]@[email or web address] 01/10/2025 7:30 AM EST - 01/10/2025 8:15 AM EST Surgery [facility] Endoscopy Department [address] [place] [address] Irineo Ruff MD [address] [place] [address] [place] [address] [email or web address]@[email or web address] COLONOSCOPY 01/31/2025 1:00 PM EST Office Visit [facility] Cardiovascular Medicine [address] [facility], 5th Floor, [address] [place] [address] Karena Betancur MD [address] [facility] [address] [place] [address] [email or web address] Scheduled Procedures Name Priority Associated Diagnoses Date/Ti [...] documented as of this encounter Care Teams Telephone Maintenance Mechanic Relationship Specialty Start Date End Date Artie Meehan MD [address] [place] [address] [place] [address] PCP - General Internal Medicine 10/26/17 06/03/21 Laura Mock MD, DMD [address] [address] [email or web address] PCP - General Internal Medicine 06/04/21 11/11/23 Pcp, Unknown PCP - General 11/12/23 11/16/23 Laura Mock MD, DMD [address] [address] [email or web address] PCP - General Internal Medicine 11/17/23 12/28/23 Pcp, Unknown PCP - General 02/28/24 03/04/24 [place] [address] [address] PCP - General 03/05/24 05/17/24 Laura Mock MD, DMD [address] [address] [email or web address] so PCP - General Internal Medicine 05/18/24 Artie Meehan MD [address] [place] [address] [address] [place] [address] Internal Medicine 10/26/17 04/23/22 Rina Swenson MD [address] [place] [address] Dr [address] [place] [address] Psychiatry 07/09/17 Laura Mock MD, DMD [address] [address] [email or web address] Partners Attributed Provider 09/01/21 07/03/23 Laura Mock MD, DMD [address] [address] [email or web address] du Insurance Assigned Provider 05/31/23 03/01/24 Jakob Bob MD [address] [place] [address] [address] [place] [address] [email or web address] Cardiology 08/22/23 Jose Cruz MD 22 [facility], [address] [place] [address] [email or web address] Cardiology 08/22/23 Laura Mock MD, DMD [address] [place] [address] [address] [place] [address] [email or web address] Partners Attributed Provider 09/01/21 07/03/23 [facility] [phone]. Consulting Provider 08/22/23 [facility] Connect 12/24/23 03/11/24 Cyril Morales [address] [place] [phone] Nurse Practitioner 02/27/24 documented as of this encounter Additional Source Comments The information contained in this document represents components of the legal health record. It is not the complete legal health record.[facility]
--- OUTSIDE RECORDS SUMMARY | 2024-11-29 16:00 | XMS_ITS | Encounter Summary ---
Author Organization [facility] Address [facility] [employer] [address] [address] Phone Care Team Providers Care Safety Scientist Name Role Phone Artie Meehan MD Unavailable Rina Swenson MD Unavailable Laura Mock MD, DMD Primary Car e Provider Laura Mock MD, DMD Unavailable Laura Mock MD, DMD Unavailable Jakob Bob MD Unavailable Jose Cruz MD Unavailable [phone] Laura Mock MD, DMD Unavailable Pcp, Unknown [...] 11:00 AM EST Pre-Admission Testing [facility] [address] [facility] 2nd [place] [address] Irineo Ruff MD [address] [place] [address] [email or web address] 01/10/2025 Procedure Pass [facility] Endoscopy Department [address] [place] [address] 01/10/2025 7:30 AM EST Hospital Encounter [facility] Endoscopy Department [address] [place] [address] Irineo Ruff MD [address] [place] [address] [email or web address] 01/10/2025 7:30 AM EST - 01/10/2025 8:15 AM EST Surgery [facility] Endoscopy Department [address] [place] [address] Irineo Ruff MD [address] [place] [address] [email or web address] COLONOSCOPY 01/31/2025 1:00 PM EST Office Visit [facility] Cardiovascular Medicine [address] [facility], 5th Floor, [address] [place] [address] Karena Betancur MD [address] [address] [email or web address] Scheduled Procedures Name Priority Associated Diagnoses [...] documented as of this encounter Care Teams Safety Scientist Relationship Specialty Start Date End Date Laura Mock MD, DMD [address] [address] [place] [address] [email or web address] PCP - General Internal Medicine 06/04/21 11/11/23 Pcp, Unknown PCP - General 11/12/23 11/16/23 Laura Mock MD, DMD [address] [address] [place] [address] [email or web address] PCP - General Internal Medicine 11/17/23 12/28/23 Pcp, Unknown PCP - General 02/28/24 03/04/24 Nicole Newell MD [address] [place] [address] PCP - General 03/05/24 05/17/24 Laura Mock MD, DMD [address] [address] [place] [address] [email or web address] du PCP - General Internal Medicine 05/18/24 Artie Meehan MD [address] [place] [address] [place] [address] Internal Medicine 10/26/17 04/23/22 Rina Swenson MD [address] [place] [address] Ovi Barber [facility] [place] [address] Psychiatry 07/09/17 Laura Mock MD, DMD [address] [address] [email or web address] Partners Attributed Provider 09/01/21 07/03/23 Laura Mock MD, DMD [address] [address] [email or web address] Insurance Assigned Provider 05/31/23 03/01/24 Jakob Bob MD [address] [place] [address] [email or web address] Cardiology 08/22/23 Jose Cruz MD [address] [place] [address], [facility] [address] [place] [address] Cardiology 08/22/23 Laura Mock MD, DMD [address] [address] [email or web address] Partners Attributed Provider 09/01/21 07/03/23 [facility] [phone]. Consulting Provider 08/22/23 [facility] Connect 12/24/23 03/11/24 Cyril Morales [address] [place] [phone] Nurse Practitioner 02/27/24 documented as of this encounter Additional Source Comments The information contained in this document represents components of the legal health record. It is not the complete legal health record.[facility]
--- OUTSIDE RECORDS SUMMARY | 2024-11-29 16:00 | XMS_ITS | Encounter Summary ---
Author Organization [facility] Address [facility] [employer] [address] [address] Phone Care Team Providers Care Legal Billing Clerk Name Role Phone Artie Meehan MD Unavailable Rina Swenson MD Unavailable Laura Mokc MD, DMD Primary Car e Provider Laura Mock MD, DMD Unavailable Laura Mock MD, DMD Unavailable Jakob Bob MD Unavailable [phone] Jose Cruz MD Unavailable Laura Mock MD, [...] Description 01/05/2025 11:00 AM EST Pre-Admission Testing [facility] [address] [facility] 2nd [place] [address] Irineo Ruff MD [address] [place] [address] [email or web address] 01/10/2025 Procedure Pass [facility] Endoscopy Department [address] [place] [address] 01/10/2025 7:30 AM EST Hospital Encounter [facility] Endoscopy Department [address] [place] [address] Irineo Ruff MD [address] [place] [address] [email or web address] 01/10/2025 7:30 AM EST - 01/10/2025 8:15 AM EST Surgery [facility] Endoscopy Department [address] [place] [address] Irineo Ruff MD [address] [place] [address] [email or web address] COLONOSCOPY 01/31/2025 1:00 PM EST Office Visit [facility] Cardiovascular Medicine [address] [facility], 5th Floor, [address] [place] [address] Karena Betancur MD [address] [address] [email or web address] Scheduled Procedures Name Priority Associated [...] documented as of this encounter Care Teams Legal Billing Clerk Relationship Specialty Start Date End Date Laura Mock MD, DMD [address] [address] [place] [address] [email or web address] PCP - General Internal Medicine 06/04/21 11/11/23 Pcp, Unknown PCP - General 11/12/23 11/16/23 Laura Mock MD, DMD [address] [address] [place] [address] [email or web address] du PCP - General Internal Medicine 11/17/23 12/28/23 Pcp, Unknown PCP - General 02/28/24 03/04/24 Nicole Newell MD [address] [place] [address] PCP - General 03/05/24 05/17/24 Laura Mock MD, DMD [address] [address] [place] [address] [email or web address] du PCP - General Internal Medicine 05/18/24 Artie Meehan MD [address] [place] [address] [place] [address] Internal Medicine 10/26/17 04/23/22 Rina Swenson MD [address] [place] [address] Ovi Barber [facility] [place] [address] Psychiatry 07/09/17 Laura Mock MD, DMD [address] [address] [email or web address] [employer] Attributed Provider 09/01/21 07/03/23 Laura Mock MD, DMD [address] [address] [email or web address] Insurance Assigned Provider 05/31/23 03/01/24 Jakob Bob MD [address] [place] [address] [email or web address] Cardiology 08/22/23 Jose Cruz MD [address] [place] [address], [facility] 301 [place] [address] Cardiology 08/22/23 Laura Mock MD, DMD [address] [address] [email or web address] [employer] Attributed Provider 09/01/21 07/03/23 [facility] [phone]. Consulting Provider 08/22/23 [facility] Connect 12/24/23 03/11/24 Cyril Morales [address] [place] [phone] Nurse Practitioner 02/27/24 documented as of this encounter Additional Source Comments The information contained in this document represents components of the legal health record. It is not the complete legal health record.[facility]"
--- OUTSIDE RECORDS SUMMARY | 2024-11-29 16:00 | XMS_ITS | Encounter Summary ---
Author Organization [facility] Address [facility] [employer] [facility] [address] [place] [address] Phone Care Team Providers Care Bottom Buffer Name Role Phone Artie Meehan MD Unavailable [...] st Contact Info) Description 02/18/2022 Anti-coag visit [facility] Anticoagulation Clinic [address] [place] [address] Rony Amaro, [facility] [address] [address] [email or web address] Social History Tobacco Use Types Packs/Day [...] 01/05/2025 11:00 AM EST Pre-Admission Testing [address] [address] Irineo Ruff MD [address] [place] [address] [place] [address] [email or web address] 01/10/2025 Procedure Pass [facility] Endoscopy Department [address] [place] [address] 01/10/2025 7:30 AM EST Hospital Encounter [facility] Endoscopy Department [address] [place] [address] Irineo Ruff MD [address] [place] [address] [email or web address]@[email or web address] 01/10/2025 7:30 AM EST - 01/10/2025 8:15 AM EST Surgery [facility] Endoscopy Department [address] [place] [address] Irineo Ruff MD [address] [place] [address] [place] [address] [email or web address] COLONOSCOPY 01/31/2025 1:00 PM EST Office Visit [facility] Cardiovascular Medicine [address] [facility], 5th Floor, [address] [place] [address] Karena Betancur MD [address] [facility] [address] [place] [address] [email or web address] Scheduled Procedures Name Priority Associated Diagnoses [...] documented as of this encounter Care Teams Bottom Buffer Relationship Specialty Start Date End Date Laura Mock MD, DMD [address] [address] [email or web address] so PCP - General Internal Medicine 06/04/21 11/11/23 Pcp, Unknown PCP - General 11/12/23 11/16/23 Laura Mock MD, DMD [address] [address] [email or web address] PCP - General Internal Medicine 11/17/23 12/28/23 Pcp, Unknown PCP - General 02/28/24 03/04/24 [place] [address] [address] PCP - General 03/05/24 05/17/24 Laura Mock MD, DMD [address] [address] [email or web address] du PCP - General Internal Medicine 05/18/24 Artie Meehan MD [address] [place] [address] [address] [place] [address] Internal Medicine 10/26/17 04/23/22 Rina Swenson MD [address] [place] [address] Dr [address] [place] [address] Psychiatry 07/09/17 Laura Mock MD, DMD [address] [address] [email or web address] Partners Attributed Provider 09/01/21 07/03/23 Laura Mock MD, DMD [address] [address] [email or web address] du Insurance Assigned Provider 05/31/23 03/01/24 Jakob Bob MD [address] [place], [place] [address] [place] [address] [email or web address] Cardiology 08/22/23 Jose Cruz MD [address] [place] [address], [facility] [address] [place] [address] Cardiology 08/22/23 Laura Mock MD, DMD 1 [facility] [address] [place] [address] [email or web address] Attributed Provider 09/01/21 07/03/23 [facility] [phone]. Consulting Provider 08/22/23 [facility] Connect 12/24/23 03/11/24 Cyril Morales [address] [place] [phone] Nurse Practitioner 02/27/24 documented as of this encounter Additional Source Comments The information contained in this document represents components of the legal health record. It is not the complete legal health record.[facility]
--- OUTSIDE RECORDS SUMMARY | 2024-11-29 16:00 | XMS_ITS | Encounter Summary ---
Author Organization [facility] Address [facility] [employer] [facility] [address] [place] [address] Phone Care Team Providers Care County Court Judge Name Role Phone Artie Meehan MD Primary Care Provider Artie Meehan MD Unavailable Rina Swenson MD Unavailable Laura Mock MD, DMD Primary Car e Provider Laura Mock MD, DMD Unavailable Laura Mock MD, DMD Unavailable Jakob Bob MD Unavailable [phone] Jose Cruz MD Unavailable Laura Mock MD, DMD Unavailable Pcp, Unknown Primary Care Provider UnavailLaura Ascencio MD, DMD Primary Car e Provider Pcp, Unknown Primary Care Provider UnavailNicole Arguello MD Primary Care Provide r Laura Mock MD, DMD Primary Car e Provider Encounter Details Date Type Department Care Team (Late st Contact Info) Description 11/07/2020 Procedure Pass [facility], [address] [address] Social History Tobacco Use Types Packs/Day Years [...] Description 01/05/2025 11:00 AM EST Pre-Admission Testing [address] 2[address] [place] [address] Irineo Ruff MD [address] [place] [address] [place] [address] [email or web address] 01/10/2025 Procedure Pass [facility] Endoscopy Department [address] [place] [address] 01/10/2025 7:30 AM EST Hospital Encounter [facility] Endoscopy Department [address] [place] [address] Irineo Ruff MD [address] [place] [address] [place] [address] [email or web address] 01/10/2025 7:30 AM EST - 01/10/2025 8:15 AM EST Surgery [facility] Endoscopy Department [address] [place] [address] Irineo Ruff MD [address] [place] [address] WALI@[facility] COLONOSCOPY 01/31/2025 1:00 PM EST Office Visit [facility] Cardiovascular Medicine [address] [place] [address], 5th Floor, [address] [place] [address] Karena Betancur MD [address] [place] [address] [email or web address] Scheduled Procedures Name Priority Associated [...] documented as of this encounter Care Teams County Court Judge Relationship Specialty Start Date End Date Artie Meehan MD [address] [place] [address] PCP - General Internal Medicine 10/26/17 06/03/21 Laura Mock MD, DMD [address] [address] [email or web address] PCP - General Internal Medicine 06/04/21 11/11/23 Pcp, Unknown PCP - General 11/12/23 11/16/23 Laura Mock MD, DMD [address] [address] [email or web address] PCP - General Internal Medicine 11/17/23 12/28/23 Pcp, Unknown PCP - General 02/28/24 03/04/24 [place] [address] [place] [address] PCP - General 03/05/24 05/17/24 Laura Mock MD, DMD [address] [address] [email or web address] du PCP - General Internal Medicine 05/18/24 Artie Meehan MD [address] [place] [address] [address] [place] [address] Internal Medicine 10/26/17 04/23/22 Rina Swenson MD [address] [place] [address] Dr [address] [place] [address] Psychiatry 07/09/17 Laura Mock MD, DMD [address] [address] [email or web address] Partners Attributed Provider 09/01/21 07/03/23 Laura Mock MD, DMD [address] [address] [email or web address] Insurance Assigned Provider 05/31/23 03/01/24 Jakob Bob MD [address] [place], [place] [address] [place] [address] [email or web address] Cardiology 08/22/23 Jose Cruz MD [address] [place] [address], [address] [place] [address] Cardiology 08/22/23 Laura Mock MD, DMD 1 [facility] [address] [place] [address] [email or web address] Partners Attributed Provider 09/01/21 07/03/23 [facility] [phone]. Consulting Provider 08/22/23 [facility] Connect 12/24/23 03/11/24 Cyril Morales [address] [place] [phone] Nurse Practitioner 02/27/24 documented as of this encounter Additional Source Comments The information contained in this document represents components of the legal health record. It is not the complete legal health record.[facility]
--- OUTSIDE RECORDS SUMMARY | 2024-11-29 16:00 | XMS_ITS | Encounter Summary ---
Author Organization [facility] Address [facility] [employer] [facility] [address] [place] [address] Phone Care Team Providers Care Product Accountant Name Role Phone Artie Meehan MD Primary Care Provider Artie Meehan MD Unavailable [phone] Rina Swenson MD Unavailable Laura Mock MD, DMD Primary Car e Provider Laura Mock MD, DMD Unavailable Laura Mock MD, DMD Unavailable Jakob Bob MD Unavailable Jose Cruz MD Unavailable [phone] Laura Mock MD, DMD Unavailable Pcp, Unknown Primary Care Provider UnavailLaura Ascencio MD, DMD Primary Car e Provider Pcp, Unknown Primary Care Provider UnavailNicole Arguello MD Primary Care Provide r Laura Mock MD, DMD Primary Car e Provider Encounter Details Date Type Department Care Team (Late st Contact Info) Description 11/15/2020 Transcribe Orders Virtual Department [address] [place] [address] Artie Meehan MD [address] [place] [address] [place] [address] Asymptomatic menopausal state (Primary Dx); Age-related osteoporosis [...] Description 01/05/2025 11:00 AM EST Pre-Admission Testing [facility] [address] [place] [address] 2nd [place] [address] Irineo Ruff MD [address] [place] [address] [email or web address]@[facility] 01/10/2025 Procedure Pass [facility] Endoscopy Department [address] [place] [address] 01/10/2025 7:30 AM EST Hospital Encounter [facility] Endoscopy Department [address] [place] [address] Irineo Ruff MD [address] [place] [address] [email or web address]@[facility] 01/10/2025 7:30 AM EST - 01/10/2025 8:15 AM EST Surgery [facility] Endoscopy Department [address] [place] [address] Irineo Ruff MD [address] [place] [address] [email or web address]@[facility] COLONOSCOPY 01/31/2025 1:00 PM EST Office Visit [facility] Cardiovascular Medicine [address] [facility], 5th Floor, [address] [place] [address] Karena Betancur MD [address] [facility] [address] [place] [address] [email or web address] Scheduled Procedures Name [...] bone mineral density was calculated at 0.409 gm/cb5faay a T- score of -4 falling within [...] documented as of this encounter Care Teams Product Accountant Relationship Specialty Start Date End Date Artie Meehan MD [address] [place] [address] [place] [address] PCP - General Internal Medicine 10/26/17 06/03/21 Laura Mock MD, DMD [address] [address] [email or web address] PCP - General Internal Medicine 06/04/21 11/11/23 Pcp, Unknown PCP - General 11/12/23 11/16/23 Laura Mock MD, DMD [address] [address] [email or web address] du PCP - General Internal Medicine 11/17/23 12/28/23 Pcp, Unknown PCP - General 02/28/24 03/04/24 Nicole Newell MD [address] [place] [address] PCP - General 03/05/24 05/17/24 Laura Mock MD, DMD [address] [address] [email or web address] PCP - General Internal Medicine 05/18/24 Artie Meehan MD [address] [place] [address] [place] [address] Internal Medicine 10/26/17 04/23/22 Rina Swenson MD [address] [place] [address] [place] [address] Psychiatry 07/09/17 Laura Mock MD, DMD [address] [address] [email or web address] Attributed Provider 09/01/21 07/03/23 Laura Mock MD, DMD [address] [address] [email or web address] Insurance Assigned Provider 05/31/23 03/01/24 Jakob Bob MD [address] [place] [address] [email or web address] Cardiology 08/22/23 Jose Cruz MD [address] [place] [address], [address] [address] [email or web address] Cardiology 08/22/23 Laura Mock MD, DMD [address] [address] [email or web address] Attributed Provider 09/01/21 07/03/23 [facility] [phone]. Consulting Provider 08/22/23 [facility] Connect 12/24/23 03/11/24 Cyril Morales [address] [place] [address] Nurse Practitioner 02/27/24 documented as of this encounter Additional Source Comments The information contained in this document represents components of the legal health record. It is not the complete legal health record.[facility]
--- OUTSIDE RECORDS SUMMARY | 2024-11-29 16:01 | XMS_ITS | Encounter Summary ---
Author Organization [facility] Address [facility] [employer] [facility] [address] [place] [address] Phone Care Team Providers Care Quarter Doper Name Role Phone Artie Meehan MD Primary Care Provider Artie Meehan MD Unavailable [phone] Rina Swenson MD Unavailable [phone] Laura Mock MD, DMD Primary Car e Provider Laura Mock MD, DMD Unavailable Laura Mock MD, DMD Unavailable Jakob Bob MD Unavailable Jose Cruz MD Unavailable [phone] Laura Mock MD, DMD Unavailable Pcp, Unknown Primary Care Provider UnavailLaura Ascencio MD, DMD Primary Car e Provider Pcp, Unknown Primary Care Provider UnavailNicole Arguello MD Primary Care Provide r Laura Mock MD, DMD Primary Car e Provider Encounter Details Date Type Department Care Team (Late st Contact Info) Description 07/06/2020 Procedure Pass [facility] [place] [address] [place] [address] Social History Tobacco Use Types Packs/Day Years [...] 01/05/2025 11:00 AM EST Pre-Admission Testing [address] 2nd [place] [address] Irineo Ruff MD [address] [place] [address] [place] [address] [email or web address] 01/10/2025 Procedure Pass [facility] Endoscopy Department [address] [place] [address] 01/10/2025 7:30 AM EST Hospital Encounter [facility] Endoscopy Department [address] [place] [address] Irineo Ruff MD [address] [place] [address] [email or web address] 01/10/2025 7:30 AM EST - 01/10/2025 8:15 AM EST Surgery [facility] Endoscopy Department [address] [place] [address] Irineo Ruff MD [address] [place] [address] WALI@[email or web address] COLONOSCOPY 01/31/2025 1:00 PM EST Office Visit [facility] Cardiovascular Medicine [address] [place] [address], 5th Floor, [address] [place] [address] Karena Betancur MD [address] [place] [address] [email or web address] Scheduled Procedures Name Priority Associated [...] documented as of this encounter Care Teams Quarter Doper Relationship Specialty Start Date End Date Artie Meehan MD [address] [place] [address] PCP - General Internal Medicine 10/26/17 06/03/21 Laura Mock MD, DMD [address] [address] [email or web address] PCP - General Internal Medicine 06/04/21 11/11/23 Pcp, Unknown PCP - General 11/12/23 11/16/23 Laura Mock MD, DMD [address] [address] [email or web address] PCP - General Internal Medicine 11/17/23 12/28/23 Pcp, Unknown PCP - General 02/28/24 03/04/24 [place] [address] [place] [address] PCP - General 03/05/24 05/17/24 Laura Mock MD, DMD [address] [address] [email or web address] PCP - General Internal Medicine 05/18/24 Artie Meehan MD [address] [place] [address] Dr [address] [place] [address] Internal Medicine 10/26/17 04/23/22 Rina Swenson MD [address] [place] [address] Dr [address] [place] [address] Psychiatry 07/09/17 Laura Mock MD, DMD [address] [address] [email or web address] Partners Attributed Provider 09/01/21 07/03/23 Laura Mock MD, DMD [address] [address] [email or web address] Insurance Assigned Provider 05/31/23 03/01/24 Jakob Bob MD [address] [place] [address] [address] [place] [address] [email or web address] Cardiology 08/22/23 Jose Cruz MD [address] [place] [address], [address] [place] [address] Cardiology 08/22/23 Laura Mock MD, DMD 1 [facility] [address] [place] [address] [email or web address] Partners Attributed Provider 09/01/21 07/03/23 [facility] [phone]. Consulting Provider 08/22/23 [facility] Connect 12/24/23 03/11/24 Cyril Morales [facility] [place] [address] Nurse Practitioner 02/27/24 documented as of this encounter Additional Source Comments The information contained in this document represents components of the legal health record. It is not the complete legal health record.[facility]
--- OUTSIDE RECORDS SUMMARY | 2024-11-29 16:01 | XMS_ITS | Encounter Summary ---
Author Organization [facility] Address [facility] [employer] [address] [address] Phone Care Team Providers Care Court Reporter Name Role Phone Artie Meehan MD Unavailable [...] Description 01/05/2025 11:00 AM EST Pre-Admission Testing [facility] [address] [facility] 2nd [place] [address] Irineo Ruff MD [address] [place] [address] [email or web address] 01/10/2025 Procedure Pass [facility] Endoscopy Department [address] [place] [address] 01/10/2025 7:30 AM EST Hospital Encounter [facility] Endoscopy Department [address] [place] [address] Irineo Ruff MD [address] [place] [address] WALI@[facility] 01/10/2025 7:30 AM EST - 01/10/2025 8:15 AM EST Surgery [facility] Endoscopy Department [address] [place] [address] Irineo Ruff MD [address] [place] [address] WALI@[facility] COLONOSCOPY 01/31/2025 1:00 PM EST Office Visit [facility] Cardiovascular Medicine [address] [facility], 5th Floor, [address] [place] [address] Karena Betancur MD [address] [address] [email or web address] Scheduled Procedures Name Priority Associated [...] documented as of this encounter Care Teams Court Reporter Relationship Specialty Start Date End Date Laura Mock MD, DMD [address] [place] [address] [email or web address] PCP - General Internal Medicine 06/04/21 11/11/23 Pcp, Unknown PCP - General 11/12/23 11/16/23 Laura Mock MD, DMD [address] [place] [address] [email or web address] du PCP - General Internal Medicine 11/17/23 12/28/23 Pcp, Unknown PCP - General 02/28/24 03/04/24 Nicole Newell MD [address] [place] [address] PCP - General 03/05/24 05/17/24 Laura Mock MD, DMD 1 [address] [place] [address] [email or web address] du PCP - General Internal Medicine 05/18/24 Artie Meehan MD [address] [place] [address] Dr [place] [address] Internal Medicine 10/26/17 04/23/22 Rina Swenson MD [address] [place] [address] [place] [address] Psychiatry 07/09/17 Laura Mock MD, DMD [address] [address] [email or web address] [employer] Attributed Provider 09/01/21 07/03/23 Laura Mock MD, DMD [address] [address] [email or web address] du Insurance Assigned Provider 05/31/23 03/01/24 Jakob Bob MD [address] [place] [address] [email or web address] Cardiology 08/22/23 Jose Cruz MD [address] [place] [address] Cardiology 08/22/23 Laura Mock MD, DMD [address] [address] [email or web address] Partners Attributed Provider 09/01/21 07/03/23 [facility] [phone]. Consulting Provider 08/22/23 CAROLANN GREWAL Connect 12/24/23 03/11/24 Cyril Morales [address] [place] [address] Nurse Practitioner 02/27/24 documented as of this encounter Additional Source Comments The information contained in this document represents components of the legal health record. It is not the complete legal health record.[facility]
--- OUTSIDE RECORDS SUMMARY | 2024-11-29 16:01 | XMS_ITS | Encounter Summary ---
Author Organization [facility] Address [address] [place] [address] [place] [address] Phone Care Team Providers Care Grip Assembler Name Role Phone Rina Swenson MD Unavailable Laura Mock MD, DMD Primary Car e Provider Laura Mokc MD, DMD Unavailable Laura Mock MD, DMD [...] st Contact Info) Description 01/21/2023 Anti-coag visit [facility] Anticoagulation Clinic [address] [place] [address] Purvi Lawler, PharmD [address] [place] [address] [email or web address] Social History Tobacco Use Types Packs/Day [...] Description 01/05/2025 11:00 AM EST Pre-Admission Testing [facility] 45 [facility] 2nd [place] [address] Irineo Ruff MD [address] [place] [address] [place] [address] [email or web address] 01/10/2025 Procedure Pass [facility] Endoscopy Department [address] [place] [address] 01/10/2025 7:30 AM EST Hospital Encounter [facility] Endoscopy Department [address] [place] [address] Irineo Ruff MD [address] [place] [address] [email or web address] 01/10/2025 7:30 AM EST - 01/10/2025 8:15 AM EST Surgery [facility] Endoscopy Department [address] [place] [address] Irineo Ruff MD 75 [facility] [place] [address] [email or web address] [email or web address] 01/31/2025 1:00 PM EST Office Visit [facility] Cardiovascular Medicine [address], 5th Floor, [address] [place] [address] Karena Betancur MD 55 [facility] 5B [place] [address] [email or web address] Scheduled Procedures Name Priority Associated [...] documented as of this encounter Care Teams Grip Assembler Relationship Specialty Start Date End Date Laura Mock MD, DMD 1 [facility] [address] [place] [address] [email or web address] PCP - General Internal Medicine 06/04/21 11/11/23 Pcp, Unknown PCP - General 11/12/23 11/16/23 Laura Mock MD, DMD 1 [facility] [address] [place] [address] [email or web address] du PCP - General Internal Medicine 11/17/23 12/28/23 Pcp, Unknown PCP - General 02/28/24 03/04/24 [place] [id number] [place] [address] PCP - General 03/05/24 05/17/24 Laura Mock MD, DMD [address] [address] [email or web address] du PCP - General Internal Medicine 05/18/24 Rina Swenson MD Psychiatry 07/09/17 Laura Mock MD, DMD [address] [address] [email or web address] Partners Attributed Provider 09/01/21 07/03/23 Laura Mock MD, DMD [address] [address] [email or web address] Insurance Assigned Provider 05/31/23 03/01/24 Jakob Bob MD [address] [place] [address] [place] [address] [email or web address] Cardiology 08/22/23 Jose Cruz MD [address] [place] [address], [facility] [address] [place] [address] Cardiology 08/22/23 Laura Mock MD, DMD 1 [facility] [address] [place] [address] [email or web address] Partners Attributed Provider 09/01/21 07/03/23 [facility] [phone]. Consulting Provider 08/22/23 [facility] Connect 12/24/23 03/11/24 Cyril Morales [facility]5 [place] [address] Nurse Practitioner 02/27/24 documented as of this encounter Additional Source Comments The information contained in this document represents components of the legal health record. It is not the complete legal health record.[facility]
--- OUTSIDE RECORDS SUMMARY | 2024-11-29 16:01 | XMS_ITS | Encounter Summary ---
Author Organization [facility] Address [address] [place] [address] Phone Care Team Providers Care Air Quality Manager Name Role Phone Artie Meehan MD [...] PharmD [address] [place] [address] [email or web address] Social History Tobacco Use Types Packs/Day [...] Upcoming Encounters Date Type Department Care Team ([facility] st Contact Info) Description 01/05/2025 11:00 AM EST Pre-Admission Testing [address] [address] Irineo Ruff MD [address] [place] [address] [email or web address] 01/10/2025 Procedure Pass [facility] Endoscopy Department [address] [place] [address] 01/10/2025 7:30 AM EST Hospital Encounter [facility] Endoscopy Department [address] [place] [address] Irineo Ruff MD [address] [place] [address] [email or web address]@[email or web address] 01/10/2025 7:30 AM EST - 01/10/2025 8:15 AM EST Surgery [facility] Endoscopy Department [address] [place] [address] Irineo Ruff MD [address] [place] [address] [email or web address]@[email or web address] COLONOSCOPY 01/31/2025 1:00 PM EST Office Visit [facility] Cardiovascular Medicine 32 [facility], 5th Floor, [address] [place] [address] Karena Betancur MD [address] [facility] [address] [place] [address] [email or web address] Scheduled Procedures Name Priority Associated Diagnoses [...] documented as of this encounter Care Teams Air Quality Manager Relationship Specialty Start Date End Date Laura Mock MD, DMD [address] [address] [email or web address] PCP - General Internal Medicine 06/04/21 11/11/23 Pcp, Unknown PCP - General 11/12/23 11/16/23 Laura Mock MD, DMD 1 [facility] 225 [place] [address] [email or web address] PCP - General Internal Medicine 11/17/23 12/28/23 Pcp, Unknown PCP - General 02/28/24 03/04/24 Nicole Newell MD [address] [place] [address] PCP - General 03/05/24 05/17/24 Laura Mock MD, DMD [address] [address] [email or web address] PCP - General Internal Medicine 05/18/24 Artie Meehan MD [address] [place] [address] [place] [id number] Internal Medicine 10/26/17 04/23/22 Rina Swenson MD [address] [place] [address] [place] [id number] Psychiatry 07/09/17 Laura Mock MD, DMD [address] [address] [email or web address] Partners Attributed Provider 09/01/21 07/03/23 Laura Mock MD, DMD [address] [address] [email or web address] Insurance Assigned Provider 05/31/23 03/01/24 Jakob Bob MD [address] [place] [address] [place] [address] [email or web address] Cardiology 08/22/23 Jose Cruz MD [address] [place] [address], [address] [address] Cardiology 08/22/23 Laura Mock MD, DMD 1 [facility] [address] [place] [address] [email or web address] Attributed Provider 09/01/21 07/03/23 [facility] [phone]. Consulting Provider 08/22/23 [facility] Connect 12/24/23 03/11/24 Cyril Morales [address] [place] [address] Nurse Practitioner 02/27/24 documented as of this encounter Additional Source Comments The information contained in this document represents components of the legal health record. It is not the complete legal health record.[facility]
--- OUTSIDE RECORDS SUMMARY | 2024-11-29 16:01 | XMS_ITS | Encounter Summary ---
Author Organization [facility] Address [facility] [employer] [facility] [address] [place] [address] Phone Care Team Providers Care L Tacker Name Role Phone Artie Meehan MD Primary Care Provider Artie Meehan MD Unavailable [phone] Rina Swenson MD Unavailable Laura Mock MD, DMD Primary Car e Provider Laura Mock MD, DMD Unavailable Laura Mock MD, DMD Unavailable Jakob Bob MD Unavailable [phone] Jose Cruz MD Unavailable [phone] Laura Mock MD, DMD Unavailable Pcp, Unknown Primary Care Provider UnavailLaura Ascencio MD, DMD Primary Car e Provider Pcp, Unknown Primary Care Provider UnavailNicole Arguello MD Primary Care Provide r Laura Mock MD, DMD Primary Car e Provider Encounter Details Date Type Department Care Team (Late st Contact Info) Description 12/16/2019 Ancillary Orders Virtual Department [address] [place] [address] Artie Meehan MD [address] [place] [address] [place] [address] Breast screening Social History Tobacco Use Types [...] 01/05/2025 11:00 AM EST Pre-Admission Testing [address] [address] Irineo Ruff MD [address] [place] [address] [email or web address] 01/10/2025 Procedure Pass [facility] Endoscopy Department [address] [place] [address] 01/10/2025 7:30 AM EST Hospital Encounter [facility] Endoscopy Department [address] [place] [address] Irineo Ruff MD [address] [place] [address] [email or web address]@[email or web address] 01/10/2025 7:30 AM EST - 01/10/2025 8:15 AM EST Surgery [facility] Endoscopy Department [address] [place] [address] Irineo Ruff MD [address] [place] [address] [place] [address] [email or web address] COLONOSCOPY 01/31/2025 1:00 PM EST Office Visit [facility] Cardiovascular Medicine 32 [facility], 5th Floor, [address] [place] [address] Karena Betancur MD 55 [facility] [address] [place] [address] [email or web address] Scheduled Procedures Name Priority Associated Diagnoses Date/Ti [...] documented as of this encounter Care Teams L Tacker Relationship Specialty Start Date End Date Artie Meehan MD [address] [place] [address] [address] PCP - General Internal Medicine 10/26/17 06/03/21 Laura Mock MD, DMD [address] [address] [email or web address] du PCP - General Internal Medicine 06/04/21 11/11/23 Pcp, Unknown PCP - General 11/12/23 11/16/23 Laura Mock MD, DMD [address] [address] [email or web address] PCP - General Internal Medicine 11/17/23 12/28/23 Pcp, Unknown PCP - General 02/28/24 03/04/24 Nicole Newell [place] [address] [place] [address] PCP - General 03/05/24 05/17/24 Laura Mock MD, DMD [address] [address] [email or web address] du PCP - General Internal Medicine 05/18/24 Artie Meehan MD [address] [place] [address] [place] [address] Internal Medicine 10/26/17 04/23/22 Rina Swenson MD [address] [place] [address] [place] [address] Psychiatry 07/09/17 Laura Mock MD, DMD [address] [address] [email or web address] Partners Attributed Provider 09/01/21 07/03/23 Laura Mock MD, DMD [address] [address] [email or web address] du Insurance Assigned Provider 05/31/23 03/01/24 Jkaob Bob MD [address] [place] [address] [place] [address] [email or web address] Cardiology 08/22/23 Jose Cruz MD [address] [place] [address], [facility] [address] [place] [address] Cardiology 08/22/23 Laura Mock MD, DMD 1 [facility] [address] [place] [address] [email or web address] Partners Attributed Provider 09/01/21 07/03/23 [facility] [phone]. Consulting Provider 08/22/23 [facility] Connect 12/24/23 03/11/24 Cyril Morales [address] [place] [address] Nurse Practitioner 02/27/24 documented as of this encounter Additional Source Comments The information contained in this document represents components of the legal health record. It is not the complete legal health record.[facility]
--- OUTSIDE RECORDS SUMMARY | 2024-11-29 16:01 | XMS_ITS | Encounter Summary ---
Author Organization [facility] Address [facility] [address] [place] [address] Phone Care Team Providers Care Harness Repairer Name Role Phone Artie Meehan MD Unavailable Rina Swenson MD Unavailable aLura Mock MD, DMD Primary Car e Provider Laura Mock MD, DMD Unavailable Laura Mock MD, DMD Unavailable Jakob Bob MD Unavailable [phone] Jose Cruz MD Unavailable [phone] Laura Mock MD, DMD Unavailable Pcp, Unknown Primary Care Provider UnavailLaura Ascencio MD, DMD Primary Car e Provider Pcp, Unknown Primary Care Provider UnavailNicole Arguello MD Primary Care Provide r Laura Mock MD, DMD Primary Car e Provider Encounter Details Date Type Department Care Team (Late st Contact Info) Description 10/19/2021 Anti-coag visit [facility] Anticoagulation Clinic [address] [place] [address] Melvin Stewart, [facility] [address] [place] [address] [email or web address] Social History Tobacco Use Types Packs/Day [...] 01/05/2025 11:00 AM EST Pre-Admission Testing [address] [address] Irineo Ruff MD [address] [place] [address] [email or web address] 01/10/2025 Procedure Pass [facility] Endoscopy Department [address] [place] [address] 01/10/2025 7:30 AM EST Hospital Encounter [facility] Endoscopy Department [address] [place] [address] Irineo Ruff MD [address] [place] [address] [email or web address]@[email or web address] 01/10/2025 7:30 AM EST - 01/10/2025 8:15 AM EST Surgery [facility] Endoscopy Department [address] [place] [address] Irineo Ruff MD [address] [place] [address] [email or web address]@[email or web address] COLONOSCOPY 01/31/2025 1:00 PM EST Office [facility] Cardiovascular Medicine 32 [facility], 5th Floor, [address] [place] [address] Karena Betancur MD 55 [facility] [address] [place] [address] [email or web address] Scheduled Procedures Name Priority Associated Diagnoses [...] documented as of this encounter Care Teams Harness Repairer Relationship Specialty Start Date End Date Laura Mock MD, DMD [address] [address] [email or web address] PCP - General Internal Medicine 06/04/21 11/11/23 Pcp, Unknown PCP - General 11/12/23 11/16/23 Laura Mock MD, DMD 1 [facility] 225 [place] [address] [email or web address] PCP - General Internal Medicine 11/17/23 12/28/23 Pcp, Unknown PCP - General 02/28/24 03/04/24 Nicole Newell MD [address] [place] [address] PCP - General 03/05/24 05/17/24 Laura Mock MD, DMD [address] [address] [email or web address] du PCP - General Internal Medicine 05/18/24 Artie Meehan MD [address] [place] [address] [place] [address] Internal Medicine 10/26/17 04/23/22 Rina Swenson MD [address] [place] [address] [place] [address] Psychiatry 07/09/17 Laura Mock MD, DMD [address] [address] [email or web address] Partners Attributed Provider 09/01/21 07/03/23 Laura Mokc MD, DMD [address] [address] [email or web address] du Insurance Assigned Provider 05/31/23 03/01/24 Jakob Bob MD [address] [place] [address] [place] [address] [email or web address] Cardiology 08/22/23 Jose Cruz MD [address] [place] [address], [address] [address] Cardiology 08/22/23 Laura Mock MD, DMD 1 [facility] [address] [place] [address] [email or web address] Attributed Provider 09/01/21 07/03/23 [facility] [phone]. Consulting Provider 08/22/23 [facility] Connect 12/24/23 03/11/24 Cyril Morales [address] [place] [address] Nurse Practitioner 02/27/24 documented as of this encounter Additional Source Comments The information contained in this document represents components of the legal health record. It is not the complete legal health record.[facility]
--- OUTSIDE RECORDS SUMMARY | 2024-11-29 16:02 | XMS_ITS | Encounter Summary ---
Author Organization [facility] Address [facility] [employer] [address] [address] Phone Care Team Providers Care Zoo Veterinarian Name Role Phone Rina Swenson MD Unavailable [...] Description 01/05/2025 11:00 AM EST Pre-Admission Testing [facility] 45 [facility] 2nd [place] [address] Irineo Ruff MD [address] [place] [address] [email or web address] 01/10/2025 Procedure Pass [facility] Endoscopy Department [address] [place] [address] 01/10/2025 7:30 AM EST Hospital Encounter [facility] Endoscopy Department [address] [place] [address] Irineo Ruff MD [address] [place] [address] [place] [address] [email or web address] 01/10/2025 7:30 AM EST - 01/10/2025 8:15 AM EST Surgery [facility] Endoscopy Department [address] [place] [address] Irineo Ruff MD [address] [place] [address] [email or web address]@[facility] COLONOSCOPY 01/31/2025 1:00 PM EST Office Visit [facility] Cardiovascular Medicine 32 [facility], 5th Floor, [address] [place] [address] Karena Betancur MD [address] [address] [email or web address] Scheduled Procedures Name Priority Associated [...] documented as of this encounter Care Teams Zoo Veterinarian Relationship Specialty Start Date End Date Laura Mock MD, DMD [address] [address] [email or web address] PCP - General Internal Medicine 06/04/21 11/11/23 Pcp, Unknown PCP - General 11/12/23 11/16/23 Laura Mock MD, DMD [address] [address] [email or web address] PCP - General Internal Medicine 11/17/23 12/28/23 Pcp, Unknown PCP - General 02/28/24 03/04/24 [place] [address] [address] PCP - General 03/05/24 05/17/24 Laura Mock MD, DMD [address] [address] [email or web address] du PCP - General Internal Medicine 05/18/24 Rina Swenson MD Psychiatry 07/09/17 Laura Mock MD, DMD [address] [address] [email or web address] Partners Attributed Provider 09/01/21 07/03/23 Laura Mock MD, DMD [address] [address] [email or web address] du Insurance Assigned Provider 05/31/23 03/01/24 Jakob Bob MD [address] [place] [address] [email or web address] Cardiology 08/22/23 Jose Cruz MD [address] [place] [address] [email or web address] Cardiology 08/22/23 Laura Mock MD, DMD [address] [address] [email or web address] Partners Attributed Provider 09/01/21 07/03/23 [facility] [phone]. Consulting Provider 08/22/23 [facility] Connect 12/24/23 03/11/24 Cyril Morales [address] [place] [address] Nurse Practitioner 02/27/24 documented as of this encounter Additional Source Comments The information contained in this document represents components of the legal health record. It is not the complete legal health record.[facility]
--- OUTSIDE RECORDS SUMMARY | 2024-11-29 16:02 | XMS_ITS | Encounter Summary ---
Author Organization [facility] Address [facility] [employer] [address] [address] Phone Care Team Providers Care Pediatric Oncology Nurse Name Role Phone Rina Swenson MD Unavailable Laura Mock MD, DMD Primary Car e Provider Laura Mock MD, DMD Unavailable Laura Mock MD, DMD Unavailable Jakob Bob MD Unavailable [phone] Jose Cruz MD Unavailable Laura Mock MD, [...] 01/05/2025 11:00 AM EST Pre-Admission Testing [address] [address] Irineo Ruff MD [address] [place] [address] [email or web address]@[facility] 01/10/2025 Procedure Pass [facility] Endoscopy Department [address] [place] [address] 01/10/2025 7:30 AM EST Hospital Encounter [facility] Endoscopy Department [address] [place] [address] Irineo Ruff MD [address] [place] [address] [email or web address]@[facility] 01/10/2025 7:30 AM EST - 01/10/2025 8:15 AM EST Surgery [facility] Endoscopy Department [address] [place] [address] Irineo Ruff MD [address] [place] [address] [email or web address]@[facility] COLONOSCOPY 01/31/2025 1:00 PM EST Office Visit [facility] Cardiovascular Medicine [address] [facility], 5th Floor, [address] [place] [address] Karena Betancur MD 55 [facility] [address] [place] [address] [email or web address] Scheduled Procedures Name Priority Associated [...] documented as of this encounter Care Teams Pediatric Oncology Nurse Relationship Specialty Start Date End Date Laura Mock MD, DMD [address] [address] [email or web address] du PCP - General Internal Medicine 06/04/21 11/11/23 Pcp, Unknown PCP - General 11/12/23 11/16/23 Laura Mock MD, DMD [address] [address] [email or web address] PCP - General Internal Medicine 11/17/23 12/28/23 Pcp, Unknown PCP - General 02/28/24 03/04/24 Nicole Newell MD [address] [place] [id number] PCP - General 03/05/24 05/17/24 Laura Mock MD, DMD [address] [address] [email or web address] du PCP - General Internal Medicine 05/18/24 Rina Swenson MD Psychiatry 07/09/17 Laura Mock MD, DMD [address] [address] [email or web address] [employer] Attributed Provider 09/01/21 07/03/23 Laura Mock MD, DMD [address] [address] [email or web address] du Insurance Assigned Provider 05/31/23 03/01/24 Jakob Bob MD 75 [facility] [place] [address] [email or web address] Cardiology 08/22/23 Jose Cruz MD [address] [place] [address] Cardiology 08/22/23 Laura Mock MD, DMD [address] [address] [email or web address] Partners Attributed Provider 09/01/21 07/03/23 [facility] [phone]. Consulting Provider 08/22/23 [facility] Connect 12/24/23 03/11/24 Cyril Morales [address] [place] [address] Nurse Practitioner 02/27/24 documented as of this encounter Additional Source Comments The information contained in this document represents components of the legal health record. It is not the complete legal health record.[facility]
--- OUTSIDE RECORDS SUMMARY | 2024-11-29 16:02 | XMS_ITS | Encounter Summary ---
Author Organization [facility] Address [address] [facility] [address] [place] [address] Phone Care Team Providers Care Verifying Specialist Name Role Phone Rina Swenson MD [...] st Contact Info) Description 07/26/2022 Anti-coag visit [facility] Anticoagulation Clinic [address] [place], [place] [id number] Melvin Stewart, [facility] [address] [place] [address] [email or web address] Social History Tobacco Use Types [...] 01/05/2025 11:00 AM EST Pre-Admission Testing [facility] 45 [facility] 2nd [place] [address] Irineo Ruff MD [address] [place] [address] [place] [address] [email or web address] 01/10/2025 Procedure Pass [facility] Endoscopy Department [address] [place] [address] 01/10/2025 7:30 AM EST Hospital Encounter [facility] Endoscopy Department [address] [place] [address] Irineo Ruff MD [address] [place] [address] [place] [address] [email or web address] 01/10/2025 7:30 AM EST - 01/10/2025 8:15 AM EST Surgery [facility] Endoscopy Department 75 [place] [address] Irineo Ruff MD 75 [facility] [place] [address] [email or web address] COLONOSCOPY 01/31/2025 1:00 PM EST Office Visit [facility] Cardi[facility] Medicine [address], 5th Floor, [address] [place] [address] Karena Betancur MD 55 [facility] [address] [place] [address] [email or web address] Scheduled Procedures Name Priority Associated [...] documented as of this encounter Care Teams Verifying Specialist Relationship Specialty Start Date End Date Laura Mock MD, DMD 1 [facility] [address] [place] [address] [email or web address] PCP - General Internal Medicine 06/04/21 11/11/23 Pcp, Unknown PCP - General 11/12/23 11/16/23 Laura Mock MD, DMD 1 [facility] [address] [place] [address] [email or web address] du PCP - General Internal Medicine 11/17/23 12/28/23 Pcp, Unknown PCP - General 02/28/24 03/04/24 [place]ell [place] [address] [place] [address] PCP - General 03/05/24 05/17/24 Laura Mock MD, DMD [address] [address] [email or web address] du PCP - General Internal Medicine 05/18/24 Rina Swenson MD Psychiatry 07/09/17 Laura Mock MD, DMD [address] [address] [email or web address] Partners Attributed Provider 09/01/21 07/03/23 Laura Mock MD, DMD [address] [address] [email or web address] du Insurance Assigned Provider 05/31/23 03/01/24 Jakob Bob MD [address] [place] [address] [place] [address] [email or web address] Cardiology 08/22/23 Jose Cruz MD [address] [place] [address], [facility] [address] [place] [address] Cardiology 08/22/23 Laura Mokc MD, DMD 1 [facility] [address] [place] [address] [email or web address]. du Partners Attributed Provider 09/01/21 07/03/23 [facility] [phone]. Consulting Provider 08/22/23 [facility] Connect 12/24/23 03/11/24 Cyril Morales [facility]5 [place] [address] Nurse Practitioner 02/27/24 documented as of this encounter Additional Source Comments The information contained in this document represents components of the legal health record. It is not the complete legal health record.[facility]
--- OUTSIDE RECORDS SUMMARY | 2024-11-29 16:02 | XMS_ITS | Encounter Summary ---
Author Organization [facility] Address [address] [place] [address] Phone Care Team Providers Care Granulizing Machine Operator Name Role Phone Rina Swenson [...] st Contact Info) Description 12/25/2022 Transcribe Orders [facility] Department 30 [place] [address] Laura Mock MD, DMD 1 [facility] [address] [place] [address] [email or web address] Breast screening (Primary Dx) Social History Tobacco [...] Description 01/05/2025 11:00 AM EST Pre-Admission Testing [facility] 45 [facility] 2nd [place] [address] Irineo Ruff MD [address] [place] [address] [email or web address]@[email or web address] 01/10/2025 Procedure Pass [facility] Endoscopy Department [address] [place] [address] 01/10/2025 7:30 AM EST Hospital Encounter [facility] Endoscopy Department [address] [place] [address] Irineo Ruff MD [address] [place] [address] [place] [address] WALI@[email or web address] 01/10/2025 7:30 AM EST - 01/10/2025 8:15 AM EST Surgery [facility] Endoscopy Department 75 [place] [address] Irineo Ruff MD 75 [facility] [place] [address] WALI@[email or web address] COLONOSCOPY 01/31/2025 1:00 PM EST Office Visit [facility] Cardiovascular Medicine 32 [facility], 5th Floor, [address] [place] [address] Karena Betancur MD 55 [facility] [address] [place] [address] [email or web address] Scheduled Procedures Name Priority Associated [...] documented as of this encounter Care Teams Granulizing Machine Operator Relationship Specialty Start Date End Date Laura Mock MD, DMD [address] [address] [email or web address] du PCP - General Internal Medicine 06/04/21 11/11/23 Pcp, Unknown PCP - General 11/12/23 11/16/23 Laura Mock MD, DMD [address] [address] [email or web address] PCP - General Internal Medicine 11/17/23 12/28/23 Pcp, Unknown PCP - General 02/28/24 03/04/24 Nicole Newell [place] [address] [place] [address] PCP - General 03/05/24 05/17/24 Laura Mock MD, DMD [address] [address] [email or web address] du PCP - General Internal Medicine 05/18/24 Rina Swenson MD Psychiatry 07/09/17 Laura Mock MD, DMD [address] [address] [email or web address] Partners Attributed Provider 09/01/21 07/03/23 Laura Mock MD, DMD [address] [address] [email or web address] du Insurance Assigned Provider 05/31/23 03/01/24 Jakob Bob MD [address] [place] [address] [email or web address] Cardiology 08/22/23 Jose Cruz MD [address] [place] [address] Cardiology 08/22/23 Laura Mock MD, DMD [address] [address] [email or web address] Partners Attributed Provider 09/01/21 07/03/23 [facility] [phone]. Consulting Provider 08/22/23 [facility] Connect 12/24/23 03/11/24 Cyril Morales [address] [place] [address] Nurse Practitioner 02/27/24 documented as of this encounter Additional Source Comments The information contained in this document represents components of the legal health record. It is not the complete legal health record.[facility]
--- OUTSIDE RECORDS SUMMARY | 2024-11-29 16:02 | XMS_ITS | Encounter Summary ---
Author Organization [facility] Address [facility] [employer] [address] [address] Phone Care Team Providers Care Closet Organizer Name Role Phone Artie Meehan MD Unavailable Rina Swenson MD Unavailable Laura Mock MD, DMD Primary Car e Provider Laura Mock MD, DMD Unavailable Laura Mock MD, DMD Unavailable Jakob Bob MD Unavailable [phone] Jose Cruz MD Unavailable [phone] Laura Mock MD, DMD Unavailable Pcp, Unknown [...] Description 01/05/2025 11:00 AM EST Pre-Admission Testing [facility] 45 [facility] 2nd [place] [address] Irineo Ruff MD [address] [place] [address] [email or web address]@[facility] 01/10/2025 Procedure Pass [facility] Endoscopy Department [address] [place] [address] 01/10/2025 7:30 AM EST Hospital Encounter [facility] Endoscopy Department [address] [place] [address] Irineo Ruff MD [address] [place] [address] WALI@[facility] 01/10/2025 7:30 AM EST - 01/10/2025 8:15 AM EST Surgery [facility] Endoscopy Department [address] [place] [address] Irineo Ruff MD [address] [place] [address] WALI@[facility] COLONOSCOPY 01/31/2025 1:00 PM EST Office Visit [facility] Cardiovascular Medicine 32 [facility], 5th Floor, [address] [place] [address] Karena Betancur MD [address] [address] [email or web address] Scheduled Procedures Name Priority [...] documented as of this encounter Care Teams Closet Organizer Relationship Specialty Start Date End Date Laura Mock MD, DMD [address] [place] [address] [email or web address] PCP - General Internal Medicine 06/04/21 11/11/23 Pcp, Unknown PCP - General 11/12/23 11/16/23 Laura Mock MD, DMD [address] [place] [address] [email or web address] du PCP - General Internal Medicine 11/17/23 12/28/23 Pcp, Unknown PCP - General 02/28/24 03/04/24 Nicole Newell MD [address] [place] [address] PCP - General 03/05/24 05/17/24 Laura Mock MD, DMD 1 [address] [place] [address] [email or web address] du PCP - General Internal Medicine 05/18/24 Artie Meehan MD [address] [place] [address] Dr [place] [address] Internal Medicine 10/26/17 04/23/22 Rina Swenson MD [address] [place] [address] [place] [address] Psychiatry 07/09/17 Laura Mock MD, DMD [address] [address] [email or web address] Partners Attributed Provider 09/01/21 07/03/23 Laura Mock MD, DMD [address] [address] [email or web address] du Insurance Assigned Provider 05/31/23 03/01/24 Jakob Bob MD [address] [place] [address] [email or web address] Cardiology 08/22/23 Jose Cruz MD [address] [place] [address] Cardiology 08/22/23 Laura Mock MD, DMD [address] [address] [email or web address] du Partners Attributed Provider 09/01/21 07/03/23 [facility] [phone]. Consulting Provider 08/22/23 CAROLANN GREWAL Connect 12/24/23 03/11/24 Cyril Morales [address] [place] [address] Nurse Practitioner 02/27/24 documented as of this encounter Additional Source Comments The information contained in this document represents components of the legal health record. It is not the complete legal health record.[facility]
--- OUTSIDE RECORDS SUMMARY | 2024-11-29 16:02 | XMS_ITS | Encounter Summary ---
Author Organization [facility] Address [facility] IN[place] [address] [address] Phone Care Team Providers Care Vc++ Developer Name Role Phone Rina Swenson MD Unavailable [...] Description 01/05/2025 11:00 AM EST Pre-Admission Testing [address] [address] Irineo Ruff MD [address] [place] [address] WALI@[facility] 01/10/2025 Procedure Pass [facility] Endoscopy Department [address] [place] [address] 01/10/2025 7:30 AM EST Hospital Encounter [facility] Endoscopy Department [address] [place] [address] Irineo Ruff MD [address] [place] [address] WALI@[facility] 01/10/2025 7:30 AM EST - 01/10/2025 8:15 AM EST Surgery [facility] Endoscopy Department [address] [place] [address] Irineo Ruff MD [address] [place] [address] WALI@[facility] COLONOSCOPY 01/31/2025 1:00 PM EST Office Visit [facility] Cardiovascular Medicine 32 [facility], 5th Floor, [address] [place] [address] Karena Betancur MD 55 [facility] [address] [place] [address] FRANK@[email or web address] Scheduled Procedures Name Priority [...] documented as of this encounter Care Teams Vc++ Developer Relationship Specialty Start Date End Date Laura Mock MD, DMD [address] [address] [email or web address] du PCP - General Internal Medicine 06/04/21 11/11/23 Pcp, Unknown PCP - General 11/12/23 11/16/23 Laura Mock MD, DMD [address] [address] [email or web address] PCP - General Internal Medicine 11/17/23 12/28/23 Pcp, Unknown PCP - General 02/28/24 03/04/24 Nicole Newell MD [address] [place] [id number] PCP - General 03/05/24 05/17/24 Laura Mock MD, DMD [address] [address] [email or web address] du PCP - General Internal Medicine 05/18/24 Rina Swenson MD Psychiatry 07/09/17 Laura Mock MD, DMD [address] [address] [email or web address] du Partners Attributed Provider 09/01/21 07/03/23 Laura Mock MD, DMD [address] [address] [email or web address] du Insurance Assigned Provider 05/31/23 03/01/24 Jakob Bob MD 75 [facility] [place] [address] [email or web address] Cardiology 08/22/23 Jose Cruz MD [address] [place] [address] Cardiology 08/22/23 Laura Mock MD, DMD [address] [address] [email or web address] du Partners Attributed Provider 09/01/21 07/03/23 [facility] [phone]. Consulting Provider 08/22/23 [facility] Connect 12/24/23 03/11/24 Cyril Morales [address] [place] [address] Nurse Practitioner 02/27/24 documented as of this encounter Additional Source Comments The information contained in this document represents components of the legal health record. It is not the complete legal health record.[facility]
--- OUTSIDE RECORDS SUMMARY | 2024-11-29 16:02 | XMS_ITS | Encounter Summary ---
Author Organization [facility] Address [address] [place] [address] Phone Care Team Providers Care Program Technician Name Role Phone Rina Swenson MD [...] Procedure Pass [facility] Endoscopy Department [address] [place] [address] Social History Tobacco Use Types Packs/Day [...] Description 01/05/2025 11:00 AM EST Pre-Admission Testing [address] 2nd [place] [address] Irineo Ruff MD [address] [place] [address] [email or web address] 01/10/2025 Procedure Pass [facility] Endoscopy Department [address] [place] [address] 01/10/2025 7:30 AM EST Hospital Encounter [facility] Endoscopy Department [address] [place] [address] Irineo Ruff MD [address] [place] [address] WALI@[email or web address] 01/10/2025 7:30 AM EST - 01/10/2025 8:15 AM EST Surgery [facility] Endoscopy Department [address] [place] [address] Irineo Ruff MD [address] [place] [address] WALI@[email or web address] COLONOSCOPY 01/31/2025 1:00 PM EST Office Visit [facility] Cardiovascular Medicine [address] [place] [address], 5th Floor, [address] [place] [address] Karena Betancur MD 55 [facility] [address] [place] [address] FRANK@[email or web address] Scheduled Procedures Name Priority Associated [...] as of this encounter Care Teams Program Technician Relationship Specialty Start Date End Date Laura Mock MD, DMD 1 [facility] 225 [place] [address] [email or web address] du PCP - General Internal Medicine 06/04/21 11/11/23 Pcp, Unknown PCP - General 11/12/23 11/16/23 Laura Mock MD, DMD 1 [facility] 225 [place] [address] [email or web address] du PCP - General Internal Medicine 11/17/23 12/28/23 Pcp, Unknown PCP - General 02/28/24 03/04/24 Nicole Newell MD [address] [place] [address] PCP - General 03/05/24 05/17/24 Laura Mock MD, DMD 1 [facility] [address] [place] [address] [email or web address] so PCP - General Internal Medicine 05/18/24 Rina Swenson MD Psychiatry 07/09/17 Laura Mock MD, DMD [address] [address] [email or web address] so Insurance Assigned Provider 05/31/23 03/01/24 Jakob Bob MD [address] [place] [address] [email or web address] Cardiology 08/22/23 Jose Cruz MD [address] [place] [address], [facility] [address] [place] [address] [email or web address] Cardiology 08/22/23 [facility] [phone]. Consulting Provider 08/22/23 [facility] Connect 12/24/23 03/11/24 Cyril Morales [address] [place] [address] Nurse Practitioner 02/27/24 documented as of this encounter Additional Source Comments The information contained in this document represents components of the legal health record. It is not the complete legal health record.[facility]
--- OUTSIDE RECORDS SUMMARY | 2024-11-29 16:02 | XMS_ITS | Encounter Summary ---
Author Organization [facility] Address [facility] [address] [place] [address] Phone Care Team Providers Care Spinner Box Name Role Phone Artie Meehan MD Primary Care Provider Artie Meehan MD Unavailable [phone] Rina Swenson MD Unavailable Laura Mock MD, [...] Info) Description 04/06/2019 Ancillary Orders Virtual Department [address] [place] [address] Artie Meehan MD [address] [place] [address] [place] [address] Menopausal state Social History Tobacco Use Types [...] 01/05/2025 11:00 AM EST Pre-Admission Testing [address] [address] Irineo Ruff MD [address] [place] [address] [email or web address]@[email or web address] 01/10/2025 Procedure Pass [facility] Endoscopy Department [address] [place] [address] 01/10/2025 7:30 AM EST Hospital Encounter [facility] Endoscopy Department [address] [place] [address] Irineo Ruff MD [address] [place] [address] [email or web address]@[email or web address] 01/10/2025 7:30 AM EST - 01/10/2025 8:15 AM EST Surgery [facility] Endoscopy Department [address] [place] [address] Irineo Ruff MD [address] [place] [address] [place] [address] WALI@[email or web address] COLONOSCOPY 01/31/2025 1:00 PM EST Office Visit [facility] Cardiovascular Medicine 32 [facility], 5th Floor, [address] [place] [address] Karena Betancur MD 55 [facility] [address] [place] [address] FRANK@[email or web address] Scheduled Procedures Name Priority Associated Diagnoses [...] documented as of this encounter Care Teams Spinner Box Relationship Specialty Start Date End Date Artie Meehan MD [address] [place] [address] Dr [address] [place] [address] PCP - General Internal Medicine 10/26/17 06/03/21 Laura Mock MD, DMD [address] [address] [email or web address] PCP - General Internal Medicine 06/04/21 11/11/23 Pcp, Unknown PCP - General 11/12/23 11/16/23 Laura Mock MD, DMD [address] [address] [email or web address] PCP - General Internal Medicine 11/17/23 12/28/23 Pcp, Unknown PCP - General 02/28/24 03/04/24 [place] [address] [address] PCP - General 03/05/24 05/17/24 Laura Mock MD, DMD [address] [address] [email or web address] du PCP - General Internal Medicine 05/18/24 Artie Meehan MD [address] [place] [address] Dr [place]ior [facility] [place] [address] Internal Medicine 10/26/17 04/23/22 Rina Swenson MD [address] [place] [address] Dr [address] [place], [place] [address] [address] Psychiatry 07/09/17 Laura Mock MD, DMD [address] [address] [email or web address] Partners Attributed Provider 09/01/21 07/03/23 Laura Mock MD, DMD [address] [address] [email or web address] du Insurance Assigned Provider 05/31/23 03/01/24 Jakob Bob MD [address] [place], [place] [address] [place] [address] [email or web address] Cardiology 08/22/23 Jose Cruz MD 22 [facility], [address] [place] [address] Cardiology 08/22/23 Laura oMck MD, DMD 1 [facility] [address] [place] [address] [email or web address] du Partners Attributed Provider 09/01/21 07/03/23 [facility] [phone]. Consulting Provider 08/22/23 CAROLANN GREWAL Connect 12/24/23 03/11/24 Cyril Morales [address] [place] [address] Nurse Practitioner 02/27/24 documented as of this encounter Additional Source Comments The information contained in this document represents components of the legal health record. It is not the complete legal health record.[facility]
--- OUTSIDE RECORDS SUMMARY | 2024-11-29 16:02 | XMS_ITS | Encounter Summary ---
Author Organization [facility] Address On license of [facility] [facility] [address] [place] [address] Phone Care Team Providers Care Business Education Instructor Name Role Phone Artie Meehan MD Primary Care Provider Artie Meehan MD Unavailable [phone] Rina Swenson MD Unavailable Laura Mock MD, DMD Primary Car e Provider Laura Mock MD, DMD Unavailable Laura Mock MD, DMD Unavailable Jakob Bob MD Unavailable [phone] Jose Cruz MD Unavailable Laura Mock MD, DMD Unavailable Pcp, Unknown Primary Care Provider UnavailLaura Ascencio MD, DMD Primary Car e Provider Pcp, Unknown Primary Care Provider UnavailNicole Arguello MD Primary Care Provide r Laura Mock MD, DMD Primary Car e Provider Encounter Details Date Type Department Care Team (Late st Contact Info) Description 12/16/2019 Procedure Pass [address] [address] Social History Tobacco Use Types Packs/Day Years [...] Description 01/05/2025 11:00 AM EST Pre-Admission Testing [address] 2nd [place] [address] Irineo Ruff MD [address] [place] [address] [place] [address] [email or web address] 01/10/2025 Procedure Pass [facility] Endoscopy Department [address] [place] [address] 01/10/2025 7:30 AM EST Hospital Encounter [facility] Endoscopy Department [address] [place] [address] Irineo Ruff MD [address] [place] [address] [place] [address] [email or web address] 01/10/2025 7:30 AM EST - 01/10/2025 8:15 AM EST Surgery [facility] Endoscopy Department [address] [place] [address] Irineo Ruff MD [address] [place] [address] [place] [address] [email or web address] COLONOSCOPY 01/31/2025 1:00 PM EST Office Visit [facility] Cardiovascular Medicine [address] [place] [address], 5th Floor, [address] [place] [address] Karena Betancur MD [address] [place] [address] [email or web address] Scheduled Procedures Name Priority [...] documented as of this encounter Care Teams Business Education Instructor Relationship Specialty Start Date End Date Artie Meehan MD [address] [place] [address] PCP - General Internal Medicine 10/26/17 06/03/21 Laura Mock MD, DMD [address] [address] [email or web address] PCP - General Internal Medicine 06/04/21 11/11/23 Pcp, Unknown PCP - General 11/12/23 11/16/23 Laura Mock MD, DMD [address] [address] [email or web address] PCP - General Internal Medicine 11/17/23 12/28/23 Pcp, Unknown PCP - General 02/28/24 03/04/24 Nicole Newell MD [address] [place] [address] PCP - General 03/05/24 05/17/24 Laura Mock MD, DMD [address] [address] [email or web address] du PCP - General Internal Medicine 05/18/24 Artie Meehan MD [address] [place] [address] [address] [place] [address] Internal Medicine 10/26/17 04/23/22 Rina Swenson MD [address] [place] [address] [address] [place] [address] Psychiatry 07/09/17 Laura Mock MD, DMD [address] [address] [email or web address] du Partners Attributed Provider 09/01/21 07/03/23 Laura Mock MD, DMD [address] [address] [email or web address] du Insurance Assigned Provider 05/31/23 03/01/24 Jakob Bob MD [address] [place] [address] [place] [address] [email or web address] Cardiology 08/22/23 Jose Cruz MD [address] [place] [address], [facility] [address] [place] [address] Cardiology 08/22/23 Laura Mock MD, DMD 1 [facility] [address] [place] [address] [email or web address] Partners Attributed Provider 09/01/21 07/03/23 [facility] [phone]. Consulting Provider 08/22/23 [facility] Connect 12/24/23 03/11/24 Cyril Morales [address] [place] [address] Nurse Practitioner 02/27/24 documented as of this encounter Additional Source Comments The information contained in this document represents components of the legal health record. It is not the complete legal health record.[facility]
--- OUTSIDE RECORDS SUMMARY | 2024-11-29 16:02 | XMS_ITS | Encounter Summary ---
Author Organization [facility] Address [facility] [employer] [address] [address] Phone Care Team Providers Care Secretary Of State Name Role Phone Rina Swenson MD Unavailable [...] Description 01/05/2025 11:00 AM EST Pre-Admission Testing [address] [address] Irineo Ruff MD [address] [place] [address] [email or web address] 01/10/2025 Procedure Pass [facility] Endoscopy Department [address] [place] [address] 01/10/2025 7:30 AM EST Hospital Encounter [facility] Endoscopy Department [address] [place] [address] Irineo Ruff MD [address] [place] [address] [email or web address]@[email or web address] 01/10/2025 7:30 AM EST - 01/10/2025 8:15 AM EST Surgery [facility] Endoscopy Department [address] [place] [address] Irineo Ruff MD [address] [place] [address] [email or web address]@[email or web address] COLONOSCOPY 01/31/2025 1:00 PM EST Office Visit [facility] Cardiovascular Medicine [facility], 5th Floor, [address] [place] [address] Karena Betancur MD [address] [facility] [address] [place] [address] [email or web address] Scheduled Procedures Name Priority Associated [...] documented as of this encounter Care Teams Secretary Of State Relationship Specialty Start Date End Date Laura Mock MD, DMD [address] [address] [email or web address] du PCP - General Internal Medicine 06/04/21 11/11/23 Pcp, Unknown PCP - General 11/12/23 11/16/23 Laura Mock MD, DMD [address] [address] [email or web address] PCP - General Internal Medicine 11/17/23 12/28/23 Pcp, Unknown PCP - General 02/28/24 03/04/24 Nicole Newell MD [address] [place] [address] [id number] PCP - General 03/05/24 05/17/24 Laura Mock MD, DMD [address] [address] [email or web address] du PCP - General Internal Medicine 05/18/24 Rina Swenson MD Psychiatry 07/09/17 Laura Mock MD, DMD [address] [address] [email or web address] Partners Attributed Provider 09/01/21 07/03/23 Laura Mock MD, DMD [address] [address] [email or web address] du Insurance Assigned Provider 05/31/23 03/01/24 Jakob Bob MD [address] [facility] [place] [address] [email or web address] Cardiology 08/22/23 Jose Cruz MD [address] [place] [address] Cardiology 08/22/23 Laura Mock MD, DMD [address] [address] [email or web address] du Partners Attributed Provider 09/01/21 07/03/23 [facility] [phone]. Consulting Provider 08/22/23 [facility] Connect 12/24/23 03/11/24 Cyril Morales [address] [place] [address] Nurse Practitioner 02/27/24 documented as of this encounter Additional Source Comments The information contained in this document represents components of the legal health record. It is not the complete legal health record.[facility]
--- OUTSIDE RECORDS SUMMARY | 2024-11-29 16:02 | XMS_ITS | Encounter Summary ---
Author Organization [facility] Address [facility] [employer] [address] [address] Phone Care Team Providers Care Real Estate Internship Name Role Phone Artie Meehan MD Unavailable Rina Swenson MD Unavailable Laura Mock MD, DMD Primary Car e Provider Laura Mock MD, DMD Unavailable Lauar Mock MD, DMD Unavailable Jakob Bob MD Unavailable [phone] Jose Cruz MD Unavailable [phone] Laura Mock MD, DMD Unavailable Pcp, Unknown Primary Care Provider UnavailLaura Ascencio MD, DMD Primary Car e Provider Pcp, Unknown Primary Care Provider UnavailNicole Arguello MD Primary Care Provide r Laura Mock MD, DMD Primary Car e Provider Encounter Details Date Type Department Care Team (Late st Contact Info) Description 09/17/2021 Anti-coag visit [facility] [place] [facility] Cardiovascular [address] [address] Catherine Hernández, UniqueD [email or web address] Social History Tobacco Use Types Packs/Day [...] Description 01/05/2025 11:00 AM EST Pre-Admission Testing [address] 2nd [place] [address] Irineo Ruff MD [address] [place] [address] [email or web address] 01/10/2025 Procedure Pass [facility] Endoscopy Department [address] [place] [address] 01/10/2025 7:30 AM EST Hospital Encounter [facility] Endoscopy Department [address] [place] [address] Irineo Ruff MD [address] [place] [address] [place] [address] [email or web address] 01/10/2025 7:30 AM EST - 01/10/2025 8:15 AM EST Surgery [facility] Endoscopy Department [address] [place] [address] Irineo Ruff MD [address] [place] [address] [email or web address] COLONOSCOPY 01/31/2025 1:00 PM EST Office Visit [facility] Cardiovascular Medicine [address] [place] [address], 5th Floor, [address] [place] [address] Karena Betancur MD [address] [place] [address] [email or web address] Scheduled Procedures Name Priority Associated Diagnoses Date/Ti [...] documented as of this encounter Care Teams Real Estate Internship Relationship Specialty Start Date End Date Laura Mock MD, DMD [address] [address] [email or web address] du PCP - General Internal Medicine 06/04/21 11/11/23 Pcp, Unknown PCP - General 11/12/23 11/16/23 Laura Mock MD, DMD [address] [address] [email or web address] du PCP - General Internal Medicine 11/17/23 12/28/23 Pcp, Unknown PCP - General 02/28/24 03/04/24 [place] [address] [address] PCP - General 03/05/24 05/17/24 Laura Mock MD, DMD 1 [facility] [address] [place] [address] [email or web address] du PCP - General Internal Medicine 05/18/24 Artie Meehan MD [address] [place] [address] [address] [place] [address] Internal Medicine 10/26/17 04/23/22 Rina Swenson MD [address] [place] [address] Dr [address] [place] [address] Psychiatry 07/09/17 Laura Mock MD, DMD [address] [address] [email or web address] du Partners Attributed Provider 09/01/21 07/03/23 Laura Mock MD, DMD [address] [address] [email or web address] du Insurance Assigned Provider 05/31/23 03/01/24 Jakob Bob MD [address] [place] [address] [place] [address] [email or web address] Cardiology 08/22/23 Jose Cruz MD [address] [place] [address] Cardiology 08/22/23 Laura Mock MD, DMD [address] [address] [email or web address]. [email or web address] Partners Attributed Provider 09/01/21 07/03/23 [facility] [phone]. Consulting Provider 08/22/23 [facility] Connect 12/24/23 03/11/24 Cyril Morales [facility] [place] [address] Nurse Practitioner 02/27/24 documented as of this encounter Additional Source Comments The information contained in this document represents components of the legal health record. It is not the complete legal health record.[facility]
--- OUTSIDE RECORDS SUMMARY | 2024-11-29 16:02 | XMS_ITS | Encounter Summary ---
Author Organization [facility] Address [address] [place] [address] [place] [address] Phone Care Team Providers Care Type Copyist Name Role Phone Rina Swenson MD Unavailable Laura Mock MD, DMD Primary Car e Provider Laura Mock MD, DMD Unavailable Laura Mock MD, DMD Unavailable Jakob Bob MD Unavailable [phone] Jose Cruz MD Unavailable [phone] Laura Mock MD, DMD Unavailable Pcp, Unknown Primary Care Provider UnavailLaura Ascencio MD, DMD Primary Car e Provider Pcp, Unknown Primary Care Provider UnavailNicole Arguello MD Primary Care Provide r Laura Mock MD, DMD Primary Car e Provider Encounter Details Date Type Department Care Team (Late st Contact Info) Description 12/10/2022 Anti-coag visit [facility] Cardiovascular Health [address] [place] [address] Catherine Hernández, PharmD [email or web address] Social History Tobacco Use Types Packs/Day [...] Description 01/05/2025 11:00 AM EST Pre-Admission Testing [address] 2nd [place] [address] Irineo Ruff MD [address] [place] [address] [email or web address]@[email or web address] 01/10/2025 Procedure Pass [facility] Endoscopy Department [address] [place] [address] 01/10/2025 7:30 AM EST Hospital Encounter [facility] Endoscopy Department [address] [place] [address] Irineo Ruff MD [address] [place] [address] [email or web address]@[facility] 01/10/2025 7:30 AM EST - 01/10/2025 8:15 AM EST Surgery [facility] Endoscopy Department [address] [place] [address] Irineo Ruff MD 75 [facility], [place] [address] [email or web address]@[email or web address] COLONOSCOPY 01/31/2025 1:00 PM EST Office Visit [facility] Cardiovascular Medicine 32 [facility], 5th Floor, [address] [place] [address] Karena Betancur MD 55 [facility] [address] [place] [address] [email or web address] Scheduled Procedures Name [...] documented as of this encounter Care Teams Type Copyist Relationship Specialty Start Date End Date Laura Mock MD, DMD [address] [address] [email or web address] PCP - General Internal Medicine 06/04/21 11/11/23 Pcp, Unknown PCP - General 11/12/23 11/16/23 Laura Mock MD, DMD 1 [facility] [address] [place] [address] [email or web address] du PCP - General Internal Medicine 11/17/23 12/28/23 Pcp, Unknown PCP - General 02/28/24 03/04/24 Nicole Newell MD [address] [place] [address] PCP - General 03/05/24 05/17/24 Laura Mock MD, DMD [address] [address] [email or web address] du PCP - General Internal Medicine 05/18/24 Rina Swenson MD Psychiatry 07/09/17 Laura Mock MD, DMD [address] [address] [email or web address] du Partners Attributed Provider 09/01/21 07/03/23 Laura Mock MD, DMD [address] [address] [email or web address] du Insurance Assigned Provider 05/31/23 03/01/24 Jakob Bob MD [address] [place] [address] [place] [address] [email or web address] Cardiology 08/22/23 Jose Cruz MD [address] [place] [address] Cardiology 08/22/23 Laura Mock MD, DMD [address] [address] [email or web address] Partners Attributed Provider 09/01/21 07/03/23 [facility] [phone]. Consulting Provider 08/22/23 [facility] Connect 12/24/23 03/11/24 Cyril Morales [address] [place] [address] Nurse Practitioner 02/27/24 documented as of this encounter Additional Source Comments The information contained in this document represents components of the legal health record. It is not the complete legal health record.[facility]
--- OUTSIDE RECORDS SUMMARY | 2024-11-29 16:02 | XMS_ITS | Encounter Summary ---
Author Organization [facility] Address [address] [place] [address] [place] [address] Phone Care Team Providers Care Portable Pinch Riveter Name Role Phone Rina Swenson MD Unavailable [phone] Laura Mock MD, DMD Primary Car e Provider Laura Mock MD, DMD Unavailable Laura Mock MD, DMD Unavailable Jakob Bob MD Unavailable Jose Cruz MD Unavailable [phone] Laura Mock MD, DMD Unavailable Pcp, Unknown Primary Care Provider UnavailLaura Ascencio MD, DMD Primary Car e Provider Pcp, Unknown Primary Care Provider UnavailNicole Arguello MD Primary Care Provide r Laura Mock MD, DMD Primary Car e Provider Encounter Details Date Type Department Care Team (Late st Contact Info) Description 07/18/2022 Anti-coag visit [facility] Anticoagulation Clinic [address] [place] [address] [phone] Kenyatta [email or web address] Social History Tobacco Use Types Packs/Day [...] Description 01/05/2025 11:00 AM EST Pre-Admission Testing [address] 2nd [place] [address] Irineo Ruff MD [address] [place] [address] [email or web address]@[facility] 01/10/2025 Procedure Pass [facility] Endoscopy Department [address] [place] [address] 01/10/2025 7:30 AM EST Hospital Encounter [facility] Endoscopy Department [address] [place] [address] Irineo Ruff MD [address] [place] [address] WALI@[facility] 01/10/2025 7:30 AM EST - 01/10/2025 8:15 AM EST Surgery [facility] Endoscopy Department [address] [place] [address] Irineo Ruff MD [address] [facility] [place] [address] WALI@[facility] COLONOSCOPY 01/31/2025 1:00 PM EST Office Visit [facility] Cardiovascular Medicine 32 [facility], 5th Floor, [address] [place] [address] Karena Betancur MD 55 [facility] [address] [place] [address] [email or web address] Scheduled Procedures Name Priority Associated Diagnoses Date/Ti [...] documented as of this encounter Care Teams Portable Pinch Riveter Relationship Specialty Start Date End Date Laura Mock MD, DMD [address] [address] [email or web address] PCP - General Internal Medicine 06/04/21 11/11/23 Pcp, Unknown PCP - General 11/12/23 11/16/23 Laura Mock MD, DMD 1 [facility] [address] [place] [address] [email or web address] du PCP - General Internal Medicine 11/17/23 12/28/23 Pcp, Unknown PCP - General 02/28/24 03/04/24 [place] [address] [address] PCP - General 03/05/24 05/17/24 Laura Mock MD, DMD [address] [address] [email or web address] du PCP - General Internal Medicine 05/18/24 Rina Swenson MD Psychiatry 07/09/17 Laura Mock MD, DMD [address] [address] [email or web address] du Partners Attributed Provider 09/01/21 07/03/23 Laura Mock MD, DMD [address] [address] [email or web address] du Insurance Assigned Provider 05/31/23 03/01/24 Jakob Bob MD [address] [place] [address] [place] [address] [email or web address] Cardiology 08/22/23 Jose Cruz MD [address] [place] [address], [address] [place] [address] Cardiology 08/22/23 Laura Mock MD, DMD [address] [address] [email or web address] Partners Attributed Provider 09/01/21 07/03/23 [facility] [phone]. Consulting Provider 08/22/23 [facility] Connect 12/24/23 03/11/24 Cyril Morales [facility] [place] [address] Nurse Practitioner 02/27/24 documented as of this encounter Additional Source Comments The information contained in this document represents components of the legal health record. It is not the complete legal health record.[facility]
--- OUTSIDE RECORDS SUMMARY | 2024-11-29 16:02 | XMS_ITS | Encounter Summary ---
Author Organization [facility] Address [address] [place] [address] Phone Care Team Providers Care Spinning Bath Patroller Name Role Phone Artie Meehan MD Unavailable [...] Mengyan, PharmD [address] [place] [address] [email or web address] Social History Tobacco Use Types Packs/Day Years [...] Upcoming Encounters Date Type Department Care Team ([facility] st Contact Info) Description 01/05/2025 11:00 AM EST Pre-Admission Testing [address] [address] Irineo Ruff MD [address] [place] [address] [place] [address] [email or web address]@[email or web address] 01/10/2025 Procedure Pass [facility] Endoscopy Department [address] [place] [address] 01/10/2025 7:30 AM EST Hospital Encounter [facility] Endoscopy Department [address] [place] [address] Irineo Ruff MD [address] [place] [address] [place] [address] WALI@[email or web address] 01/10/2025 7:30 AM EST - 01/10/2025 8:15 AM EST Surgery [facility] Endoscopy Department [address] [place] [address] Irineo Ruff MD [address] [place] [address] WALI@[email or web address] COLONOSCOPY 01/31/2025 1:00 PM EST Office [facility] Cardiovascular Medicine [address] [place] [address], 5th Floor, [address] [place] [address] Karena Betancur MD 55 [facility] [address] [place] [address] [email or web address] Scheduled Procedures Name [...] documented as of this encounter Care Teams Spinning Bath Patroller Relationship Specialty Start Date End Date Laura Mock MD, DMD [address] [address] [email or web address] PCP - General Internal Medicine 06/04/21 11/11/23 Pcp, Unknown PCP - General 11/12/23 11/16/23 Laura Mock MD, DMD [address] [address] [email or web address] du PCP - General Internal Medicine 11/17/23 12/28/23 Pcp, Unknown PCP - General 02/28/24 03/04/24 [place] [address] [address] PCP - General 03/05/24 05/17/24 Laura Mock MD, DMD [address] [address] [email or web address] du PCP - General Internal Medicine 05/18/24 Artie Meehan MD [address] [place] [address] [place] [address] Internal Medicine 10/26/17 04/23/22 Rina Swenson MD [address] [place] [address] [place] [address] Psychiatry 07/09/17 Laura oMck MD, DMD [address] [address] [email or web address] du Partners Attributed Provider 09/01/21 07/03/23 Laura Mock MD, DMD [address] [address] [email or web address] du Insurance Assigned Provider 05/31/23 03/01/24 Jakob Bob MD [address] [place] [address] [email or web address] Cardiology 08/22/23 Jose Cruz MD [address] [place] [address] Cardiology 08/22/23 Laura Mock MD, DMD [address] [address] [email or web address] du Partners Attributed Provider 09/01/21 07/03/23 [facility] [phone]. Consulting Provider 08/22/23 [facility] Connect 12/24/23 03/11/24 Cyril Morales [address] [place] [address] Nurse Practitioner 02/27/24 documented as of this encounter Additional Source Comments The information contained in this document represents components of the legal health record. It is not the complete legal health record.[facility]
--- OUTSIDE RECORDS SUMMARY | 2024-11-29 16:02 | XMS_ITS | Encounter Summary ---
Author Organization [facility] Address [address] [facility] [address] [place] [address] Phone Care Team Providers Care Partner Name Role Phone Rina Swenson MD Unavailable Laura Mock MD, DMD Primary Car e Provider Laura Mock MD, DMD Unavailable Laura Mock MD, DMD Unavailable Jakob Bob MD Unavailable Jose Cruz MD Unavailable [phone] Laura Mock MD, DMD Unavailable Pcp, Unknown Primary Care Provider UnavailLaura Ascencio MD, DMD Primary Car e Provider Pcp, Unknown Primary Care Provider UnavailNicole Arguello MD Primary Care Provide r Laura Mock MD, DMD Primary Car e Provider Encounter Details Date Type Department Care Team (Late st Contact Info) Description 12/25/2022 Procedure Pass [address] [address] Social History Tobacco Use Types Packs/Day Years [...] 01/05/2025 11:00 AM EST Pre-Admission Testing [address] [address] Irineo Ruff MD [address] [place] [address] [email or web address] 01/10/2025 Procedure Pass [facility] Endoscopy Department [address] [place] [address] 01/10/2025 7:30 AM EST Hospital Encounter [facility] Endoscopy Department [address] [place] [address] Irineo Ruff MD [address] [place] [address] [email or web address] 01/10/2025 7:30 AM EST - 01/10/2025 8:15 AM EST Surgery [facility] Endoscopy Department [address] [place] [address] Irineo Ruff MD [address] [place] [address] [email or web address]@[email or web address] COLONOSCOPY 01/31/2025 1:00 PM EST Office Visit [facility] Cardiovascular Medicine [address] [facility], 5th Floor, [address] [place] [address] Karena Betancur MD 55 [facility] [address] [place] [address] [email or web address] Scheduled Procedures Name Priority [...] documented as of this encounter Care Teams Partner Relationship Specialty Start Date End Date Laura Mock MD, DMD [address] [address] [email or web address] PCP - General Internal Medicine 06/04/21 11/11/23 Pcp, Unknown PCP - General 11/12/23 11/16/23 Laura Mock MD, DMD 1 [facility] [address] [place] [address] [email or web address] PCP - General Internal Medicine 11/17/23 12/28/23 Pcp, Unknown PCP - General 02/28/24 03/04/24 [place] [address] [address] PCP - General 03/05/24 05/17/24 Laura Mock MD, DMD [address] [address] [email or web address] du PCP - General Internal Medicine 05/18/24 Rina Swenson MD Psychiatry 07/09/17 Laura Mock MD, DMD [address] [address] [email or web address] Partners Attributed Provider 09/01/21 07/03/23 Laura Mock MD, DMD [address] [address] [email or web address] du Insurance Assigned Provider 05/31/23 03/01/24 Jakob Bob MD [facility] [place] [address] [email or web address] Cardiology 08/22/23 Jose Cruz MD [address] [place] [address], [address] [place] [address] Cardiology 08/22/23 Laura Mock MD, DMD [address] [address] [email or web address] Partners Attributed Provider 09/01/21 07/03/23 [facility] [phone]. Consulting Provider 08/22/23 [facility] Connect 12/24/23 03/11/24 Cyril Morales [facility] [place] [address] Nurse Practitioner 02/27/24 documented as of this encounter Additional Source Comments The information contained in this document represents components of the legal health record. It is not the complete legal health record.[facility]
--- OUTSIDE RECORDS SUMMARY | 2024-11-29 16:02 | XMS_ITS | Encounter Summary ---
Author Organization [facility] Address [facility] [employer] [facility] [address] [place] [address] Phone Care Team Providers Care Vendor Management Associate Name Role Phone Artie Meehan MD Unavailable Rina Swenson MD Unavailable Laura Mock MD, DMD Primary Car e Provider Laura Mock MD, DMD Unavailable Laura Mock MD, DMD Unavailable Jakob Bob MD Unavailable Jose Cruz MD Unavailable [phone] Laura Mock MD, DMD Unavailable Pcp, Unknown Primary Care Provider UnavailLaura Ascencio MD, DMD Primary Car e Provider Pcp, Unknown Primary Care Provider UnavailNicole Arguello MD Primary Care Provide r Laura Mock MD, DMD Primary Car e Provider Encounter Details Date Type Department Care Team (Late st Contact Info) Description 08/07/2021 Anti-coag visit [facility] Anticoagulation Clinic [address] [place] [address] Kenyatta Gamez, PharmD [email or web address] Social History Tobacco Use Types Packs/Day [...] Description 01/05/2025 11:00 AM EST Pre-Admission Testing [address] 2nd [place] [address] Irineo Ruff MD [address] [place] [address] [place] [address] [email or web address] 01/10/2025 Procedure Pass [facility] Endoscopy Department [address] [place] [address] 01/10/2025 7:30 AM EST Hospital Encounter [facility] Endoscopy Department [address] [place] [address] Irineo Ruff MD [address] [place] [address] [email or web address] 01/10/2025 7:30 AM EST - 01/10/2025 8:15 AM EST Surgery [facility] Endoscopy Department [address] [place] [address] Irineo Ruff MD [address] [place] [address] [email or web address] COLONOSCOPY 01/31/2025 1:00 PM EST Office [facility] Cardiovascular Medicine [address] [place] [address], 5th Floor, [address] [place] [address] Karena Betancur MD [address] [place] [address] [email or web address] Scheduled Procedures Name Priority [...] documented as of this encounter Care Teams Vendor Management Associate Relationship Specialty Start Date End Date Laura Mock MD, DMD 1 [facility] [address] [place] [address] [email or web address] du PCP - General Internal Medicine 06/04/21 11/11/23 Pcp, Unknown PCP - General 11/12/23 11/16/23 Laura Mock MD, DMD 1 [facility] [address] [place] [address] [email or web address] du PCP - General Internal Medicine 11/17/23 12/28/23 Pcp, Unknown PCP - General 02/28/24 03/04/24 [place] [address] [address] PCP - General 03/05/24 05/17/24 Laura Mock MD, DMD [address] [address] [email or web address] du PCP - General Internal Medicine 05/18/24 Artie Meehan MD [address] [place] [address] Dr [address] [place] [address] Internal Medicine 10/26/17 04/23/22 Rina Swenson MD [address] [place] [address] [place] [address] Psychiatry 07/09/17 Laura Mock MD, DMD [address] [address] [email or web address] du Partners Attributed Provider 09/01/21 07/03/23 Laura Mock MD, DMD [address] [address] [email or web address] Insurance Assigned Provider 05/31/23 03/01/24 Jakob Bob MD [address] [place] [address] [email or web address] Cardiology 08/22/23 Jose Cruz MD [address] [place] [address] Cardiology 08/22/23 Laura Mock MD, DMD [address] [address] [email or web address] Partners Attributed Provider 09/01/21 07/03/23 [facility] [phone]. Consulting Provider 08/22/23 [facility] Connect 12/24/23 03/11/24 Cyril Morales [address] [place] [address] Nurse Practitioner 02/27/24 documented as of this encounter Additional Source Comments The information contained in this document represents components of the legal health record. It is not the complete legal health record.[facility]
--- OUTSIDE RECORDS SUMMARY | 2024-11-29 16:02 | XMS_ITS | Encounter Summary ---
Author Organization [facility] Address [address] [place] [address] [place] [address] Phone Care Team Providers Care Service Porter Name Role Phone Rina Swenson MD Unavailable [...] st Contact Info) Description 08/08/2022 Anti-coag visit [facility] Anticoagulation Clinic [address] [place] [address] [phone] Kenyatta [email or web address] Social History Tobacco Use Types Packs/Day Years [...] Description 01/05/2025 11:00 AM EST Pre-Admission Testing [address] 2nd [place] [address] Irineo Ruff MD [address] [place] [address] [email or web address] 01/10/2025 Procedure Pass [facility] Endoscopy Department [address] [place] [address] 01/10/2025 7:30 AM EST Hospital Encounter [facility] Endoscopy Department [address] [place] [address] Irineo Ruff MD [address] [place] [address] [email or web address] 01/10/2025 7:30 AM EST - 01/10/2025 8:15 AM EST Surgery [facility] Endoscopy Department [address] [place] [address] Irineo Ruff MD 75 [facility] [place] [address] [email or web address] COLONOSCOPY 01/31/2025 1:00 PM EST Office Visit [facility] Cardiovascular Medicine 32 [facility], 5th Floor, [address] [place] [address] Karena Betancur MD 55 [facility] [address] [place] [address] [email or web address] Scheduled Procedures Name Priority Associated [...] documented as of this encounter Care Teams Service Porter Relationship Specialty Start Date End Date Laura Mock MD, DMD [address] [address] [email or web address] PCP - General Internal Medicine 06/04/21 11/11/23 Pcp, Unknown PCP - General 11/12/23 11/16/23 Laura Mock MD, DMD 1 [facility] 225 [place] [address] [email or web address] PCP - General Internal Medicine 11/17/23 12/28/23 Pcp, Unknown PCP - General 02/28/24 03/04/24 [place] [address] [address] PCP - General 03/05/24 05/17/24 Laura Mock MD, DMD [address] [address] [email or web address] PCP - General Internal Medicine 05/18/24 Rina Swenson MD Psychiatry 07/09/17 Laura Mock MD, DMD [address] [address] [email or web address] Partners Attributed Provider 09/01/21 07/03/23 Laura Mock MD, DMD [address] [address] [email or web address] Insurance Assigned Provider 05/31/23 03/01/24 Jakob Bob MD [address] [place] [address] [place] [address] [email or web address] Cardiology 08/22/23 Jose Cruz MD [address] [place] [address], [address] [place] [address] Cardiology 08/22/23 Laura Mock MD, DMD [address] [address] [email or web address] Partners Attributed Provider 09/01/21 07/03/23 [facility] [phone]. Consulting Provider 08/22/23 [facility] Connect 12/24/23 03/11/24 Cyril Morales [facility] [place] [address] Nurse Practitioner 02/27/24 documented as of this encounter Additional Source Comments The information contained in this document represents components of the legal health record. It is not the complete legal health record.[facility]
--- OUTSIDE RECORDS SUMMARY | 2024-11-29 16:02 | XMS_ITS | Encounter Summary ---
Author Organization [facility] Address [facility] [address] [place] [address] Phone Care Team Providers Care Immigration Manager Name Role Phone Artie Meehan MD Primary Care Provider Artie Meehan MD Unavailable [phone] Rina Swenson MD Unavailable Laura Mock MD, DMD Primary Car e Provider Laura Mock MD, DMD Unavailable Laura Mock MD, DMD Unavailable Jakob Bob MD Unavailable Jose Cruz MD Unavailable [phone] Laura Mock MD, DMD Unavailable Pcp, Unknown Primary Care Provider UnavailLaura Ascencio MD, DMD Primary Car e Provider Pcp, Unknown Primary Care Provider UnavailNicole Arguello MD Primary Care Provide r Laura Mock MD, DMD Primary Car e Provider Encounter Details Date Type Department Care Team (Late st Contact Info) Description 09/06/2020 Procedure Pass [facility] [address] [place] [address] Social History Tobacco Use Types Packs/Day Years [...] 01/05/2025 11:00 AM EST Pre-Admission Testing [address] 2nd [place] [address] Irineo Ruff MD [address] [place] [address] [place] [address] [email or web address] 01/10/2025 Procedure Pass [facility] Endoscopy Department [address] [place] [address] 01/10/2025 7:30 AM EST Hospital Encounter [facility] Endoscopy Department [address] [place] [address] Irineo Ruff MD [address] [place] [address] [email or web address] 01/10/2025 7:30 AM EST - 01/10/2025 8:15 AM EST Surgery [facility] Endoscopy Department [address] [place] [address] Irineo Ruff MD [address] [place] [address] [email or web address]@[email or web address] COLONOSCOPY 01/31/2025 1:00 PM EST Office Visit [facility] Cardiovascular Medicine [address] [place] [address], 5th Floor, [address] [place] [address] Karena Betancur MD [address] [place] [address] [email or web address] Scheduled Procedures Name Priority Associated [...] documented as of this encounter Care Teams Immigration Manager Relationship Specialty Start Date End Date Artie Meehan MD [address] [place] [address] [place] [address] PCP - General Internal Medicine 10/26/17 06/03/21 Laura Mock MD, DMD [address] [address] [email or web address] du PCP - General Internal Medicine 06/04/21 11/11/23 Pcp, Unknown PCP - General 11/12/23 11/16/23 Laura Mock MD, DMD [address] [address] [email or web address] PCP - General Internal Medicine 11/17/23 12/28/23 Pcp, Unknown PCP - General 02/28/24 03/04/24 [place] [address] [address] PCP - General 03/05/24 05/17/24 Laura Mock MD, DMD [address] [address] [email or web address] du PCP - General Internal Medicine 05/18/24 Artie Meehan MD [address] [place] [address] [place] [address] Internal Medicine 10/26/17 04/23/22 Rina Swenson MD [address] [place] [address] Dr Dior [facility] [place] [address] Psychiatry 07/09/17 Laura Mock MD, DMD [address] [address] [email or web address] du Partners Attributed Provider 09/01/21 07/03/23 Laura Mock MD, DMD [address] [address] [email or web address] du Insurance Assigned Provider 05/31/23 03/01/24 Jakob Bob MD [address] [place] [address] [address] [place] [address] [email or web address] Cardiology 08/22/23 Jose Cruz MD [address] [place] [address], [address] [place] [address] Cardiology 08/22/23 Laura Mock MD, DMD [address] [address] [email or web address] Partners Attributed Provider 09/01/21 07/03/23 [facility] [phone]. Consulting Provider 08/22/23 [facility] Connect 12/24/23 03/11/24 Cyril Morales [address] [place] [address] Nurse Practitioner 02/27/24 documented as of this encounter Additional Source Comments The information contained in this document represents components of the legal health record. It is not the complete legal health record.[facility]
--- OUTSIDE RECORDS SUMMARY | 2024-11-29 16:02 | XMS_ITS | Encounter Summary ---
Author Organization [facility] Address [address] [place] [address] Phone Care Team Providers Care Weighmaster Lead Name Role Phone Rina Swenson MD Unavailable Jakob Bob MD Unavailable Jose Cruz MD Unavailable [phone] Laura Mock MD, DMD Primary Car e Provider Reason for Visit * Reason Onset Date Comments Colonoscopy 10/13/2024 Encounter Details Date Type Department Care Team (Late st Contact Info) Description 10/13/2024 Telephone [facility] [address] 2nd [place] [address] Laura Mock MD, DMD 1 [facility] [address] [place] [address] [email or web address] Colonoscopy Social History Tobacco Use Types Packs/Day [...] Description 01/05/2025 11:00 AM EST [facility] [address] [address] Irineo Ruff MD 75 [facility] [place] [address] [email or web address] 01/10/2025 Procedure Pass [facility] Endoscopy Department [address] [place] [address] 01/10/2025 7:30 AM EST Hospital Encounter [facility] Endoscopy Department [address] [place] [address] Irineo Ruff MD 75 [facility] [place] [address] [email or web address]@[email or web address] 01/10/2025 7:30 AM EST - 01/10/2025 8:15 AM EST Surgery [facility] Endoscopy Department [address] [place] [address] Irineo Ruff MD 75 [facility] [place] [address] [email or web address]@[email or web address] COLONOSCOPY 01/31/2025 1:00 PM EST Office Visit [facility] Cardiovascular Medicine 32 [facility], 5th Floor, [address] [place] [address] Karena Betancur MD [address] [address] [email or web address] Scheduled Procedures Name Priority [...] documented as of this encounter Care Teams Weighmaster Lead Relationship Specialty Start Date End Date Laura Mock MD, DMD 1 [facility] [address] [place] [address] [email or web address] PCP - General Internal Medicine 05/18/24 Rina Swenson MD Psychiatry 07/09/17 Jakob Bob MD [address] [place] [address] [address] [place] [address] [email or web address] Cardiology 08/22/23 Jose Cruz MD [address] [place] [address], [address] [place] [address] Cardiology 08/22/23 [facility] [phone]. Consulting Provider 08/22/23 Cyril Morales [address] [place] [address] Nurse Practitioner 02/27/24 documented as of this encounter Additional Source Comments The information contained in this document represents components of the legal health record. It is not the complete legal health record.[facility]
--- OUTSIDE RECORDS SUMMARY | 2024-11-29 16:02 | XMS_ITS | Encounter Summary ---
Author Organization [facility] Address [facility] [place] [address] [address] Phone Care Team Providers Care Office Machine Service Supervisor Name Role Phone Artie Meehan MD Unavailable Rina Swenson MD Unavailable Laura Mock MD, DMD Primary Car e Provider Laura Mock MD, DMD Unavailable Laura Mock MD, DMD Unavailable Jakob Bob MD Unavailable [phone] Jose Cruz MD Unavailable Laura oMck MD, DMD Unavailable Pcp, Unknown Primary Care Provider UnavailLaura Ascencio MD, DMD Primary Car e Provider Pcp, Unknown Primary Care Provider UnavailNicole Arguello MD Primary Care Provide r Laura Mock MD, DMD Primary Car e Provider Encounter Details Date Type Department Care Team (Late st Contact Info) Description 09/28/2021 Telephone [facility] Psychiatric Specialties at [address] [place] [address] Tamara Walton, YOLIE [address] [facility] [place] [address] Social History Tobacco Use Types Packs/Day Years [...] Description 01/05/2025 11:00 AM EST Pre-Admission Testing [address] 2nd [place] [address] Irineo uRff MD [address] [place] [address] [place] [address] [email or web address] 01/10/2025 Procedure Pass [facility] Endoscopy Department [address] [place] [address] 01/10/2025 7:30 AM EST Hospital Encounter [facility] Endoscopy Department [address] [place] [address] Irineo Ruff MD [address] [place] [address] [place] [address] [email or web address]@[email or web address] 01/10/2025 7:30 AM EST - 01/10/2025 8:15 AM EST Surgery [facility] Endoscopy Department [address] [place] [address] Irineo Ruff MD [address] [place] [address] [place] [address] [email or web address]@[email or web address] COLONOSCOPY 01/31/2025 1:00 PM EST Office Visit [facility] Cardi[place] Medicine [address] [place] [address], 5th Floor, [address] [place] [address] Karena Betancur MD 55 [facility] [address] [place] [address] [email or web address] Scheduled Procedures Name Priority Associated [...] as of this encounter Care Teams Office Machine Service Supervisor Relationship Specialty Start Date End Date Laura Mock MD, DMD 1 [facility] [address] [place] [address] [email or web address] du PCP - General Internal Medicine 06/04/21 11/11/23 Pcp, Unknown PCP - General 11/12/23 11/16/23 Laura Mock MD, DMD 1 [facility] [address] [place] [address] [email or web address] du PCP - General Internal Medicine 11/17/23 12/28/23 Pcp, Unknown PCP - General 02/28/24 03/04/24 [place] [address] [address] PCP - General 03/05/24 05/17/24 Laura Mock MD, DMD [address] [address] [email or web address] du PCP - General Internal Medicine 05/18/24 Artie Meehan MD [address] [place] [address] [place] [address] Internal Medicine 10/26/17 04/23/22 Rina Swenson MD [address] [place] [address] [place] [address] Psychiatry 07/09/17 Laura Mock MD, DMD [address] [address] [email or web address] du Partners Attributed Provider 09/01/21 07/03/23 Laura Mock MD, DMD [address] [address] [email or web address] Insurance Assigned Provider 05/31/23 03/01/24 Jakob Bob MD [address] [place] [address] [place] [address] [email or web address] Cardiology 08/22/23 Jose Curz MD [address] [place] [address] Cardiology 08/22/23 Laura Mock MD, DMD [address] [address] [email or web address] Partners Attributed Provider 09/01/21 07/03/23 [facility] [phone]. Consulting Provider 08/22/23 CAROLANN GREWAL Connect 12/24/23 03/11/24 Cyril Morales [facility] [place] [address] Nurse Practitioner 02/27/24 documented as of this encounter Additional Source Comments The information contained in this document represents components of the legal health record. It is not the complete legal health record.[facility]
--- OUTSIDE RECORDS SUMMARY | 2024-11-29 16:02 | XMS_ITS | Encounter Summary ---
Author Organization [facility] Address Count includes the [facility] [employer] [address] [place] [address] Phone Care Team Providers Care Fire Controlman Name Role Phone Artie Meehan MD Unavailable [...] st Contact Info) Description 09/07/2021 Anti-coag visit [facility] Anticoagulation Clinic [address] [place] [address] Kenyatta Gamez, PharmD [email or web address] Social History Tobacco Use Types Packs/Day [...] Description 01/05/2025 11:00 AM EST Pre-Admission Testing [address] 2[address] [place] [address] Irineo Ruff MD [address] [place] [address] [place] [address] [email or web address] 01/10/2025 Procedure Pass [facility] Endoscopy Department [address] [place] [address] 01/10/2025 7:30 AM EST Hospital Encounter [facility] Endoscopy Department [address] [place] [address] Irineo Ruff MD [address] [place] [address] [email or web address] 01/10/2025 7:30 AM EST - 01/10/2025 8:15 AM EST Surgery [facility] Endoscopy Department [address] [place] [address] Irineo Ruff MD [address] [place] [address] [email or web address] COLONOSCOPY 01/31/2025 1:00 PM EST Office Visit [facility] Cardiovascular Medicine [address] [place] [address], 5th Floor, [address] [place] [address] Karena Betancur MD [address] [place] [address] [email or web address] Scheduled Procedures Name [...] documented as of this encounter Care Teams Fire Controlman Relationship Specialty Start Date End Date Laura Mock MD, DMD 1 [facility] [address] [place] [address] [email or web address] du PCP - General Internal Medicine 06/04/21 11/11/23 Pcp, Unknown PCP - General 11/12/23 11/16/23 Laura Mock MD, DMD 1 [facility] [address] [place] [address] [email or web address] du PCP - General Internal Medicine 11/17/23 12/28/23 Pcp, Unknown PCP - General 02/28/24 03/04/24 [place] [address] [address] PCP - General 03/05/24 05/17/24 Laura Mock MD, DMD [address] [address] [email or web address] du PCP - General Internal Medicine 05/18/24 Artie Meehan MD [address] [place] [address] Dr [address] [place] [address] Internal Medicine 10/26/17 04/23/22 Rina Swenson MD [address] [place] [address] [place] [address] Psychiatry 07/09/17 Laura Mock MD, DMD [address] [address] [email or web address] du Partners Attributed Provider 09/01/21 07/03/23 Laura Mock MD, DMD [address] [address] [email or web address]. du Insurance Assigned Provider 05/31/23 03/01/24 Jakob Bob MD [address] [place] [address] [email or web address] Cardiology 08/22/23 Jose Cruz MD [address] [place] [address] Cardiology 08/22/23 Laura Mock MD, DMD [address] [address] [email or web address] Partners Attributed Provider 09/01/21 07/03/23 [facility] [phone]. Consulting Provider 08/22/23 [facility] Connect 12/24/23 03/11/24 Cyril Morales [address] [place] [address] Nurse Practitioner 02/27/24 documented as of this encounter Additional Source Comments The information contained in this document represents components of the legal health record. It is not the complete legal health record.[facility]
--- OUTSIDE RECORDS SUMMARY | 2024-11-29 16:02 | XMS_ITS | Encounter Summary ---
Author Organization [facility] Address [facility] [email or web address] [facility] [address] [place] [address] Phone Care Team Providers Care Senior Health Consultant Name Role Phone Artie Meehan MD Unavailable Rina Swenson MD Unavailable Laura Mock MD, DMD Primary Car e Provider Laura Mock MD, DMD Unavailable Laura Mock MD, DMD Unavailable Jakob Bob MD Unavailable [phone] Jose Cruz MD Unavailable Laura Mock MD, DMD Unavailable Pcp, Unknown Primary Care Provider UnavailLaura Ascencio MD, DMD Primary Car e Provider Pcp, Unknown Primary Care Provider UnavailNicole Arguello MD Primary Care Provide r Laura Mock MD, DMD Primary Car e Provider Encounter Details Date Type Department Care Team (Late st Contact Info) Description 09/13/2021 Anti-coag visit [facility] Anticoagulation Clinic [address] [place] [address] Abbie Prieto, PharmD [address] [address] [email or web address] Social History Tobacco Use Types Packs/Day [...] Description 01/05/2025 11:00 AM EST Pre-Admission Testing [address] 2[address] [place] [address] Irineo Ruff MD [address] [place] [address] [place] [address] [email or web address] 01/10/2025 Procedure Pass [facility] Endoscopy Department [address] [place] [address] 01/10/2025 7:30 AM EST Hospital Encounter [facility] Endoscopy Department [address] [place] [address] Irineo Ruff MD [address] [place] [address] [email or web address]@[email or web address] 01/10/2025 7:30 AM EST - 01/10/2025 8:15 AM EST Surgery [facility] Endoscopy Department [address] [place] [address] Irineo Ruff MD [address] [place] [address] [place] [address] [email or web address]@[facility] COLONOSCOPY 01/31/2025 1:00 PM EST Office Visit [facility] Cardiovascular Medicine [address] [facility], 5th Floor, [address] [place] [address] Karena Betancur MD [address] [facility] [address] [place] [address] [email or web address] Scheduled Procedures Name Priority Associated Diagnoses Date/Ti [...] as of this encounter Care Teams Senior Health Consultant Relationship Specialty Start Date End Date Laura Mock MD, DMD [address] [address] [email or web address] PCP - General Internal Medicine 06/04/21 11/11/23 Pcp, Unknown PCP - General 11/12/23 11/16/23 Laura Mock MD, DMD [address] [address] [email or web address] PCP - General Internal Medicine 11/17/23 12/28/23 Pcp, Unknown PCP - General 02/28/24 03/04/24 [place] [address] [place] [address] PCP - General 03/05/24 05/17/24 Laura Mock MD, DMD [address] [address] [email or web address] du PCP - General Internal Medicine 05/18/24 Artie Meehan MD [address] [place] [address] Dr [address] [place] [address] Internal Medicine 10/26/17 04/23/22 Rina Swenson MD [address] [place] [address] Dr [address] [place] [address] [place] [address] Psychiatry 07/09/17 Laura Mock MD, DMD [address] [address] [email or web address] du Partners Attributed Provider 09/01/21 07/03/23 Laura Mock MD, DMD [address] [address] [email or web address] du Insurance Assigned Provider 05/31/23 03/01/24 Jakob Bob MD [address] [place] [address] [place] [address] [email or web address] Cardiology 08/22/23 Jose Cruz MD [address] [place] [address], [address] [address] Cardiology 08/22/23 Laura Mock MD, DMD 1 [facility] [address] [place] [address] [email or web address] Partners Attributed Provider 09/01/21 07/03/23 [facility] [phone]. Consulting Provider 08/22/23 CAROLANN GREWAL Connect 12/24/23 03/11/24 Cyril Morales [address] [place] [address] Nurse Practitioner 02/27/24 documented as of this encounter Additional Source Comments The information contained in this document represents components of the legal health record. It is not the complete legal health record.[facility]
--- OUTSIDE RECORDS SUMMARY | 2024-11-29 16:02 | XMS_ITS | Encounter Summary ---
Author Organization [facility] Address [facility]ly [facility] [address] [address] Phone Care Team Providers Care Parole Officer Name Role Phone Rina Swenson MD Unavailable [...] 01/05/2025 11:00 AM EST Pre-Admission Testing [address] [address] Irineo Ruff MD [address] [place] [address] [email or web address] 01/10/[address] [facility] Endoscopy Department [address] [place] [address] 01/10/2025 7:30 AM EST Hospital Encounter [facility] Endoscopy Department [address] [place] [address] Irineo Ruff MD [address] [place] [address] [email or web address]@[email or web address] 01/10/2025 7:30 AM EST - 01/10/2025 8:15 AM EST Surgery [facility] Endoscopy Department [address] [place] [address] Irineo Ruff MD [address] [place] [address] WALI@[email or web address] COLONOSCOPY 01/31/2025 1:00 PM EST Office Visit [facility] Cardiovascular Medicine 32 [facility], 5th Floor, [address] [place] [address] Karena Betancur MD [address] [facility] [address] [place] [address] FRANK@[email or web address] Scheduled Procedures Name Priority Associated Diagnoses Date/Ti [...] documented as of this encounter Care Teams Parole Officer Relationship Specialty Start Date End Date Laura Mock MD, DMD [address] [address] [email or web address] du PCP - General Internal Medicine 06/04/21 11/11/23 Pcp, Unknown PCP - General 11/12/23 11/16/23 Laura Mock MD, DMD [address] [address] [email or web address] PCP - General Internal Medicine 11/17/23 12/28/23 Pcp, Unknown PCP - General 02/28/24 03/04/24 Nicole Newell MD [address] [place] [address] [id number] PCP - General 03/05/24 05/17/24 Laura Mock MD, DMD [address] [address] [email or web address] du PCP - General Internal Medicine 05/18/24 Rina Swenson MD Psychiatry 07/09/17 Laura Mock MD, DMD [address] [address] [email or web address] Partners Attributed Provider 09/01/21 07/03/23 Laura Mock MD, DMD [address] [address] [email or web address] du Insurance Assigned Provider 05/31/23 03/01/24 Jakob Bob MD [address] [facility] [place] [address] [email or web address] Cardiology 08/22/23 Jose Cruz MD [address] [place] [address] Cardiology 08/22/23 Laura Mock MD, DMD [address] [address] [email or web address] du Partners Attributed Provider 09/01/21 07/03/23 [facility] [phone]. Consulting Provider 08/22/23 [facility] Connect 12/24/23 03/11/24 Cyril Morales [address] [place] [address] Nurse Practitioner 02/27/24 documented as of this encounter Additional Source Comments The information contained in this document represents components of the legal health record. It is not the complete legal health record.[facility]
--- OUTSIDE RECORDS SUMMARY | 2024-11-29 16:02 | XMS_ITS | Encounter Summary ---
Author Organization [facility] Address [address] [facility] [address] [place] [address] Phone Care Team Providers Care Returned Goods Inspector Name Role Phone Rina Swenson MD Unavailable Laura Mock MD, DMD Primary Car e Provider Laura Mock MD, DMD Unavailable Laura Mock MD, DMD Unavailable Jakob Bob MD Unavailable [phone] Jose Cruz MD Unavailable [phone] Laura Mock MD, DMD Unavailable Pcp, Unknown Primary Care Provider UnavailLaura Ascencio MD, DMD Primary Car e Provider Pcp, Unknown Primary Care Provider UnavailNicole Arguello MD Primary Care Provide r Laura Mock MD, DMD Primary Car e Provider Encounter Details Date Type Department Care Team (Late st Contact Info) Description 05/10/2022 Anti-coag visit [facility] Anticoagulation Clinic [address] [place], [place] [phone] [facility] [address] [place] [address] [email or web address] Social History Tobacco Use Types [...] Upcoming Encounters Date Type Department Care Team ([facility] st Contact Info) Description 01/05/2025 11:00 AM EST Pre-Admission Testing [address] [address] Irineo Ruff MD [address] [place] [address] [email or web address]@[email or web address] 01/10/2025 Procedure Pass [facility] Endoscopy Department [address] [place] [address] 01/10/2025 7:30 AM EST Hospital Encounter [facility] Endoscopy Department [address] [place] [address] Irineo Ruff MD [address] [place] [address] [email or web address]@[email or web address] 01/10/2025 7:30 AM EST - 01/10/2025 8:15 AM EST Surgery [facility] Endoscopy Department [address] [place] [address] Irineo Ruff MD [address] [place] [address] [email or web address]@[email or web address] [email or web address] 01/31/2025 1:00 PM EST Office Visit [facility] Cardiovascular Medicine 32 [facility], 5th Floor, [address] [place] [address] Karena Betancur MD [address] [facility] [address] [place] [address] FRANK@[email or web address] Scheduled Procedures Name [...] documented as of this encounter Care Teams Returned Goods Inspector Relationship Specialty Start Date End Date Laura Mock MD, DMD [address] [address] [email or web address] du PCP - General Internal Medicine 06/04/21 11/11/23 Pcp, Unknown PCP - General 11/12/23 11/16/23 Laura Mock MD, DMD 1 [facility] [address] [place] [address] [email or web address] du PCP - General Internal Medicine 11/17/23 12/28/23 Pcp, Unknown PCP - General 02/28/24 03/04/24 [place] [address] [address] PCP - General 03/05/24 05/17/24 Lauar Mock MD, DMD [address] [address] [email or web address] du PCP - General Internal Medicine 05/18/24 Rina Swenson MD Psychiatry 07/09/17 Laura Mock MD, DMD [address] [address] [email or web address] Partners Attributed Provider 09/01/21 07/03/23 Laura Mock MD, DMD [address] [address] [email or web address] du Insurance Assigned Provider 05/31/23 03/01/24 Jakob Bob MD [address] [place] [address] [place] [address] [email or web address] Cardiology 08/22/23 Jose Cruz MD [address] [place] [address] Cardiology 08/22/23 Laura Mock MD, DMD [address] [address] [email or web address] Partners Attributed Provider 09/01/21 07/03/23 [facility] [phone]. Consulting Provider 08/22/23 [facility] Connect 12/24/23 03/11/24 Cyril Morales [facility] [place] [address] Nurse Practitioner 02/27/24 documented as of this encounter Additional Source Comments The information contained in this document represents components of the legal health record. It is not the complete legal health record.[facility]
--- OUTSIDE RECORDS SUMMARY | 2024-11-29 16:02 | XMS_ITS | Encounter Summary ---
Author Organization [facility] Address [facility] [address] [place] [address] Phone Care Team Providers Care Assistant Finance Manager Name Role Phone Rina Swenson MD [...] Info) Description 10/07/2022 Procedure Pass [facility] [place] [place] [phone] Social History Tobacco Use Types Packs/Day Years [...] 01/05/2025 11:00 AM EST Pre-Admission Testing [address] [address] Irineo Ruff MD [address] [place] [address] [email or web address] 01/10/2025 Procedure Pass [facility] Endoscopy Department [address] [place] [address] 01/10/2025 7:30 AM EST Hospital Encounter [facility] Endoscopy Department [address] [place] [address] Irineo Ruff MD [address] [place] [address] WALI@[facility] 01/10/2025 7:30 AM EST - 01/10/2025 8:15 AM EST Surgery [facility] Endoscopy Department [address] [place] [address] Irineo Ruff MD [address] [place] [address] WALI@[facility] COLONOSCOPY 01/31/2025 1:00 PM EST Office Visit [facility] [place] [facility] [address] [facility], 5th Floor, [address] [place] [address] Karena Betancur MD [address] [facility] [address] [place] [address] FRANK@[email or web address] Scheduled Procedures Name Priority Associated [...] documented as of this encounter Care Teams Assistant Finance Manager Relationship Specialty Start Date End Date Laura Mock MD, DMD [address] [address] [email or web address] PCP - General Internal Medicine 06/04/21 11/11/23 Pcp, Unknown PCP - General 11/12/23 11/16/23 Laura Mock MD, DMD [address] [address] [email or web address] PCP - General Internal Medicine 11/17/23 12/28/23 Pcp, Unknown PCP - General 02/28/24 03/04/24 Nicole [place] [address] [place] [address] PCP - General 03/05/24 05/17/24 Laura Mock MD, DMD 1 [facility] [address] [place] [address] [email or web address] du PCP - General Internal Medicine 05/18/24 Rina Swenson MD Psychiatry 07/09/17 Laura Mock MD, DMD [address] [address] [email or web address] Partners Attributed Provider 09/01/21 07/03/23 Laura Mock MD, DMD [address] [address] [email or web address] du Insurance Assigned Provider 05/31/23 03/01/24 Jakob Bob MD 75 [facility] [place] [address] [email or web address] Cardiology 08/22/23 Jose Cruz MD [address] [place] [address], [address] [place] [address] Cardiology 08/22/23 Laura Mock MD, DMD [address] [address] [email or web address] du Partners Attributed Provider 09/01/21 07/03/23 [facility] [phone]. Consulting Provider 08/22/23 [facility] Connect 12/24/23 03/11/24 Cyril Morales [facility] [place] [address] Nurse Practitioner 02/27/24 documented as of this encounter Additional Source Comments The information contained in this document represents components of the legal health record. It is not the complete legal health record.[facility]
--- OUTSIDE RECORDS SUMMARY | 2024-11-29 16:03 | XMS_ITS | Encounter Summary ---
Author Organization [facility] Address [address] [place] [address] [place] [address] Phone Care Team Providers Care Financial Cost Analyst Name Role Phone Rina Swenson MD Unavailable Laura Mock MD, DMD Primary Car e Provider Laura Mock MD, DMD Unavailable Laura Mock MD, DMD Unavailable Jakob Bob MD Unavailable Jose Cruz MD Unavailable [phone] Laura Mock MD, DMD Unavailable Pcp, Unknown Primary Care Provider UnavailLaura Ascencio MD, DMD Primary Car e Provider Pcp, Unknown Primary Care Provider UnavailNicole Arguello MD Primary Care Provide r Laura Mock MD, DMD Primary Car e Provider Encounter Details Date Type Department Care Team (Late st Contact Info) Description 04/25/2022 Anti-coag visit [facility] Anticoagulation Clinic [address] [place] [address] [phone] Kenyatta [email or web address] Social History Tobacco [...] 01/05/2025 11:00 AM EST Pre-Admission Testing [facility] [address] [facility] 2nd [place] [address] Irineo Ruff MD [address] [place] [address] WALI@[facility] 01/10/2025 Procedure Pass [facility] Endoscopy Department [address] [place] [address] 01/10/2025 7:30 AM EST Hospital Encounter [facility] Endoscopy Department [address] [place] [address] Irineo Ruff MD [address] [place] [address] [place] [address] [email or web address]@[facility] 01/10/2025 7:30 AM EST - 01/10/2025 8:15 AM EST Surgery [facility] Endoscopy Department [address] [place] [address] Irineo Ruff MD [address] [place] [address] [place] [address] WALI@[facility] COLONOSCOPY 01/31/2025 1:00 PM EST Office Visit [facility] Cardiovascular Medicine [address] [facility], 5th Floor, [address] [place] [address] Karena Betancur MD [address] [place] [address] [email or web address] Scheduled Procedures Name Priority Associated [...] documented as of this encounter Care Teams Financial Cost Analyst Relationship Specialty Start Date End Date Laura Mokc MD, DMD [address] [address] [email or web address] du PCP - General Internal Medicine 06/04/21 11/11/23 Pcp, Unknown PCP - General 11/12/23 11/16/23 Laura Mock MD, DMD [address] [address] [email or web address] du PCP - General Internal Medicine 11/17/23 12/28/23 Pcp, Unknown PCP - General 02/28/24 03/04/24 Nicole Newell MD [address] [place] [address] PCP - General 03/05/24 05/17/24 Laura Mock MD, DMD [address] [address] [email or web address] du PCP - General Internal Medicine 05/18/24 Rina Swenson MD Psychiatry 07/09/17 Laura Mock MD, DMD [address] [address] [email or web address]. du Partners Attributed Provider 09/01/21 07/03/23 Laura Mock MD, DMD [address] [address] [email or web address] du Insurance Assigned Provider 05/31/23 03/01/24 Jakob Bob MD [address] [place] [address] [email or web address] Cardiology 08/22/23 Jose Cruz MD [address] [place] [address] Cardiology 08/22/23 Laura Mock MD, DMD [address] [address] [email or web address]. du Partners Attributed Provider 09/01/21 07/03/23 [facility] [phone]. Consulting Provider 08/22/23 [facility] Connect 12/24/23 03/11/24 Cyril Morales [address] [place] [address] Nurse Practitioner 02/27/24 documented as of this encounter Additional Source Comments The information contained in this document represents components of the legal health record. It is not the complete legal health record.[facility]
--- OUTSIDE RECORDS SUMMARY | 2024-11-29 16:03 | XMS_ITS | Encounter Summary ---
Author Organization [facility] Address [facility] [address] [place] [address] Phone Care Team Providers Care Loop Drier Operator Name Role Phone Artie Meehan MD Primary Care Provider Artie Meehan MD Unavailable [phone] Rina Swenson MD Unavailable Laura Mock MD, [...] Procedure Pass [facility] [address] [place] [address] Social History Tobacco Use Types Packs/Day Years [...] Description 01/05/2025 11:00 AM EST Pre-Admission Testing [facility] 45 [facility] 2nd [place] [address] Irineo Ruff MD [address] [place] [address] [email or web address] 01/10/2025 Procedure Pass [facility] Endoscopy Department [address] [place] [address] 01/10/2025 7:30 AM EST Hospital Encounter [facility] Endoscopy Department [address] [place] [address] Irineo Ruff MD [address] [place] [address] [email or web address] 01/10/2025 7:30 AM EST - 01/10/2025 8:15 AM EST Surgery [facility] Endoscopy Department [address] [place] [address] Irineo Ruff MD [address] [place] [address] [email or web address] COLONOSCOPY 01/31/2025 1:00 PM EST Office Visit [facility] Cardiovascular Medicine [address] [place] [address], 5th Floor, [address] [place] [address] Karena Betancur MD [address] [place] [address] [email or web address] Scheduled Procedures Name Priority Associated [...] documented as of this encounter Care Teams Loop Drier Operator Relationship Specialty Start Date End Date Artie Meehan MD [address] [place] [address] [place] [address] PCP - General Internal Medicine 10/26/17 06/03/21 Laura Mock MD, DMD [address] [address] [email or web address] du PCP - General Internal Medicine 06/04/21 11/11/23 Pcp, Unknown PCP - General 11/12/23 11/16/23 Laura Mock MD, DMD [address] [address] [email or web address] du PCP - General Internal Medicine 11/17/23 12/28/23 Pcp, Unknown PCP - General 02/28/24 03/04/24 [place] [address] [address] PCP - General 03/05/24 05/17/24 Laura Mock MD, DMD [address] [address] [email or web address] PCP - General Internal Medicine 05/18/24 Artie Meehan MD [address] [place] [address] [address] [place] [address] Internal Medicine 10/26/17 04/23/22 Rina Swenson MD [address] [place] [address] [address] [place] [address] Psychiatry 07/09/17 Laura Mock MD, DMD [address] [address] [email or web address] Partners Attributed Provider 09/01/21 07/03/23 Laura Mock MD, DMD [address] [address] [email or web address] Insurance Assigned Provider 05/31/23 03/01/24 Jakob Bob MD [address] [place], [place] [address] [place] [address] [email or web address] Cardiology 08/22/23 Jose Cruz MD [address] [place] [address], [place] [address] Cardiology 08/22/23 Laura Mock MD, DMD 1 [facility] [address] [place] [address] [email or web address] Partners Attributed Provider 09/01/21 07/03/23 [facility] [phone]. Consulting Provider 08/22/23 [facility] Connect 12/24/23 03/11/24 Cyril Morales [address] [place] [address] Nurse Practitioner 02/27/24 documented as of this encounter Additional Source Comments The information contained in this document represents components of the legal health record. It is not the complete legal health record.[facility]
--- OUTSIDE RECORDS SUMMARY | 2024-11-29 16:03 | XMS_ITS | Encounter Summary ---
Author Organization [facility] Address [facility] [address] [address] Phone Care Team Providers Care Account Liaison Hospice Name Role Phone Tasha Greenwood MD Primary Care Provider Artie Meehan MD Primary Care Provider [phone] Artie Meehan MD Primary Care Provider [phone] Artie Meehan MD Unavailable Meera Campos Unavailable [phone] Amber Raygoza NP Unavailable Elvis Rendon MD Unavailable [phone] Modesta Rivera MD Unavailable [phone] Carlin Newman MD Unavailable [phone] Patti Bello MD Unavailable Lucila Melendez MD Unavailable [phone] Juan J Avitia DO Unavailable [phone] Tasha Greenwood MD Unavailable Mekhi Hernandez MD Unavailable [phone] Leora Fish-C Unavailable Angel Klein MD Unavailable [phone] Fredy Bruno MD Unavailable Sejal Dick MD Unavailable [phone] Cadence Rouse MD Unavailable [phone] Baljinder Hinson MD Unavailable [phone] Rina Swenson MD Unavailable Laura Mock MD, [...] Procedure Pass [facility] [address] [place] [address] Social History Tobacco Use Types Packs/Day Years [...] Description 01/05/2025 11:00 AM EST Pre-Admission Testing [address] [place] [address] Irineo Ruff MD 75 [place] [address] [email or web address] 01/10/2025 Procedure Pass [facility] Endoscopy Department [address] [place] [address] 01/10/2025 7:30 AM EST Hospital Encounter [facility] Endoscopy Department [address] [place] [address] Irineo Ruff MD 75 [place] [address] [email or web address] 01/10/2025 7:30 AM EST - 01/10/2025 8:15 AM EST Surgery [facility] Endoscopy Department [address] [place] [address] Irineo Ruff MD [address] [place] [address] WALI@[facility] COLONOSCOPY 01/31/2025 1:00 PM EST Office Visit [facility] Cardiovascular Medicine [address] [facility], 5th Floor, [address] [place] [address] Karena Betancur MD [address] [address] FRANK@[email or web address] [...] documented as of this encounter Care Teams Account Liaison Hospice Relationship Specialty Start Date End Date Tasha Greenwood MD [address] [place] [address], 2nd [place] [address] [email or web address] PCP - General 08/24/13 07/08/17 Artie Meehan MD [address] [place] [address] Dr Dior [address] [place] [address] PCP - General Internal Medicine 07/09/17 10/25/17 Artie Meehan MD [address] [place] [address] Dr Dior [address] [place] [address] PCP - General Internal Medicine 10/26/17 06/03/21 Laura Mock MD, DMD [address] [address] [email or web address] PCP - General Internal Medicine 06/04/21 11/11/23 Pcp, Unknown PCP - General 11/12/23 11/16/23 Laura Mock MD, DMD [address] [address] [email or web address] PCP - General Internal Medicine 11/17/23 12/28/23 Pcp, Unknown PCP - General 02/28/24 03/04/24 Nicole Newell MD [address] [place] [address] PCP - General 03/05/24 05/17/24 Laura Mock MD, DMD [address] [address] [email or web address] PCP - General Internal Medicine 05/18/24 Artie Meehan MD [address] [place] [address] [place] [address] Internal Medicine 10/26/17 04/23/22 Meera Campos PA [facility] [place] [address] Historical LMR Provider 12/14/16 Amber Raygoza NP [address] [place] [address] 340 [place] [address] Historical LMR Provider 12/14/16 Elvis Rendon MD [address] [place] [address], [address] [place] [address] Historical LMR Provider 12/14/16 8 Modesta Rivera MD [address] [place] [address], [address] [place] [address] Historical LMR Provider 12/14/16 Carlin Newman MD [address] [place] [address], 2nd [place] [address] Historical LMR Provider 12/14/16 Patti Bello MD 15 [facility], 2nd [place] [address] Historical LMR Provider 12/14/16 07/08/17 Lucila Melendez MD 22 [facility], [address] [place] [address] Historical LMR Provider 12/14/16 07/08/17 Juan J Avitia DO [address] [place] [address] Orthopedics & Sports [facility] [place] [address] Historical LMR Provider 12/14/16 07/08/17 Tasha Greenwood MD [address] [place] [address], 2nd [place] [address] [email or web address] Historical LMR Provider 12/14/16 07/08/17 Mekhi Hernandez MD [address] [place], [place] [address] [address] [email or web address] Historical LMR Provider 12/14/16 07/08/17 Leora Fish PA-C [address] [place] [address] Orthopedics & Sports [facility] [place] [address] Historical LMR Provider 12/14/16 Angel Bueno MD 22 [facility], [address] [place] [address] Historical LMR Provider 12/14/16 Fredy Bruno MD [address] [place] [address] Historical LMR Provider 12/14/16 Sejal Dick MD 4 [facility] Orthopedics & Sports Medicine, [facility] [place] [address] [email or web address] Historical LMR Provider 12/14/1607/08 Cadence Rouse MD [address] [place] [address] Historical LMR Provider 12/14/16 Baljinder Hinson MD [address] [place] [address] Historical LMR Provider 12/14/16 Rina Swenson MD [address] [place] [address] Psychiatry 07/09/17 Laura Mock MD, DMD [address] [address] [email or web address] Attributed Provider 09/01/21 07/03/23 Laura Mock MD, DMD [address] [address] [email or web address] du Insurance Assigned Provider 05/31/23 03/01/24 Jakob Bob MD [address] [place] [address] [place] [address] [email or web address] Cardiology 08/22/23 Jose Cruz MD 22 [facility], [address] [place] [address] Cardiology 08/22/23 Laura Mock MD, DMD [address] [place] [address] [address] [place] [address] [email or web address] Partners Attributed Provider 09/01/21 07/03/23 [facility] [phone]. Consulting Provider 08/22/23 CAROLANN GREWAL Connect 12/24/23 03/11/24 Cyril Morales [address] [place] [address] Nurse Practitioner 02/27/24 documented as of this encounter Additional Source Comments The information contained in this document represents components of the legal health record. It is not the complete legal health record.[facility]
--- OUTSIDE RECORDS SUMMARY | 2024-11-29 16:03 | XMS_ITS | Encounter Summary ---
Author Organization [facility] Address [address] [place] [address] [place] [address] Phone Care Team Providers Care China Painter Name Role Phone Rina Swenson MD Unavailable Laura Mock MD, DMD Primary Car e Provider Laura Mock MD, DMD Unavailable Laura Mock MD, DMD Unavailable Jakob Bob MD Unavailable Jose Cruz MD Unavailable [phone] Laura Mock MD, DMD Unavailable Pcp, Unknown Primary Care Provider UnavailLaura Ascencio MD, DMD Primary Car e Provider Pcp, Unknown Primary Care Provider UnavailNicole Arguello MD Primary Care Provide r Laura Mock MD, DMD Primary Car e Provider Encounter Details Date Type Department Care Team (Late st Contact Info) Description 10/29/2022 Anti-coag visit [facility] Cardiovascular Health [address] [place] [address] Catherine Hernández, PharmD [email or web address] Social History Tobacco Use Types Packs/Day [...] 01/05/2025 11:00 AM EST Pre-Admission Testing [address] 2nd [place] [address] Irineo Ruff MD [address] [place] [address] [email or web address] 01/10/[address] [facility] Endoscopy Department [address] [place] [address] 01/10/2025 7:30 AM EST Hospital Encounter [facility] Endoscopy Department [address] [place] [address] Irineo Ruff MD [address] [place] [address] [email or web address] 01/10/2025 7:30 AM EST - 01/10/2025 8:[address] [facility] Endoscopy Department [address] [place] [address] Irineo Ruff MD 75 [facility] [place] [address] [email or web address] COLONOSCOPY 01/31/2025 1:00 PM EST Office [place] [facility] [place] 32 [facility], 5th Floor, [address] [place] [address] Karena Betancur MD 55 [facility] [address] [place] [address] [email or web address] Scheduled Procedures Name Priority Associated [...] documented as of this encounter Care Teams China Painter Relationship Specialty Start Date End Date Laura Mock MD, DMD [address] [address] [email or web address] PCP - General Internal Medicine 06/04/21 11/11/23 Pcp, Unknown PCP - General 11/12/23 11/16/23 Laura Mock MD, DMD 1 [facility] [address] [place] [address] [email or web address] PCP - General Internal Medicine 11/17/23 12/28/23 Pcp, Unknown PCP - General 02/28/24 03/04/24 Nicole Newell MD [address] [place] [address] PCP - General 03/05/24 05/17/24 Laura Mock MD, DMD [address] [address] [email or web address] du PCP - General Internal Medicine 05/18/24 Rina Swenson MD Psychiatry 07/09/17 Laura Mock MD, DMD [address] [address] [email or web address] Attributed Provider 09/01/21 07/03/23 Laura Mock MD, DMD [address] [address] [email or web address] du Insurance Assigned Provider 05/31/23 03/01/24 Jakob Bob MD [address] [place] [address] [place] [address] [email or web address] Cardiology 08/22/23 Jose Cruz MD [address] [place] [address] Cardiology 08/22/23 Laura Mock MD, DMD [address] [address] [email or web address] Attributed Provider 09/01/21 07/03/23 [facility] [phone]. Consulting Provider 08/22/23 [facility] Connect 12/24/23 03/11/24 Cyril Morales [address] [place] [address] Nurse Practitioner 02/27/24 documented as of this encounter Additional Source Comments The information contained in this document represents components of the legal health record. It is not the complete legal health record.[facility]
--- OUTSIDE RECORDS SUMMARY | 2024-11-29 16:03 | XMS_ITS | Encounter Summary ---
Author Organization [facility] Address [facility] [address] [address] Phone Care Team Providers Care Chief Airport Guide Name Role Phone Rina Swenson MD Unavailable [...] 01/05/2025 11:00 AM EST Pre-Admission Testing [address] [address] Irineo Ruff MD [address] [place] [address] [email or web address] 01/10/2025 Procedure Pass [facility] Endoscopy Department [address] [place] [address] 01/10/2025 7:30 AM EST Hospital Encounter [facility] Endoscopy Department [address] [place] [address] Irineo Ruff MD [address] [place] [address] [email or web address]@[facility] 01/10/2025 7:30 AM EST - 01/10/2025 8:15 AM EST Surgery [facility] Endoscopy Department [address] [place] [address] Irineo Ruff MD [address] [place] [address] [email or web address]@[facility] COLONOSCOPY 01/31/2025 1:00 PM EST Office Visit [facility] Cardi[place] Medicine 32 [facility], 5th Floor, [address] [place] [address] Karena Betancur MD 55 [facility] [address] [place] [address] [email or web address] Scheduled Procedures Name Priority Associated [...] documented as of this encounter Care Teams Chief Airport Guide Relationship Specialty Start Date End Date Laura Mock MD, DMD [address] [address] [email or web address] du PCP - General Internal Medicine 06/04/21 11/11/23 Pcp, Unknown PCP - General 11/12/23 11/16/23 Laura Mock MD, DMD [address] [address] [email or web address] PCP - General Internal Medicine 11/17/23 12/28/23 Pcp, Unknown PCP - General 02/28/24 03/04/24 Nicole Newell MD [address] [place] [id number] PCP - General 03/05/24 05/17/24 Laura Mock MD, DMD [address] [address] [email or web address] du PCP - General Internal Medicine 05/18/24 Rina Swenson MD Psychiatry 07/09/17 Laura Mock MD, DMD [address] [address] [email or web address] Partners Attributed Provider 09/01/21 07/03/23 Laura Mock MD, DMD [address] [address] [email or web address] du Insurance Assigned Provider 05/31/23 03/01/24 Jakob Bob MD 75 [facility] [place] [address] [email or web address] Cardiology 08/22/23 Jose Cruz MD [address] [place] [address] Cardiology 08/22/23 Laura Mock MD, DMD [address] [address] [email or web address] du Partners Attributed Provider 09/01/21 07/03/23 [facility] [phone]. Consulting Provider 08/22/23 [facility] Connect 12/24/23 03/11/24 Cyril Morales [address] [place] [address] Nurse Practitioner 02/27/24 documented as of this encounter Additional Source Comments The information contained in this document represents components of the legal health record. It is not the complete legal health record.[facility]
--- OUTSIDE RECORDS SUMMARY | 2024-11-29 16:03 | XMS_ITS | Encounter Summary ---
Author Organization [facility] Address [address] [facility] [address] [place] [address] Phone Care Team Providers Care Quality Assurance Qa Lab Technician Name Role Phone Rina Swenson MD [...] st Contact Info) Description 10/26/2022 Anti-coag visit [facility] Anticoagulation Clinic [address] [place], [place] [phone] Melvin Stewart, [facility] [address] [place] [address] [email or web address] Social History Tobacco Use Types Packs/Day Years [...] EST Pre-Admission Testing [facility] 45 [facility] 2nd [place] [address] Irineo Ruff MD [address] [place] [address] [place] [address] [email or web address] 01/10/2025 Procedure Pass [facility] Endoscopy Department [address] [place] [address] 01/10/2025 7:30 AM EST Hospital Encounter [facility] Endoscopy Department [address] [place] [address] Irineo Ruff MD [address] [place] [address] [place] [address] [email or web address] 01/10/2025 7:30 AM EST - 01/10/2025 8:15 AM EST Surgery [facility] Endoscopy Department [address] [place] [address] Irineo Ruff MD 75 [facility] [place] [address] [email or web address] COLONOSCOPY 01/31/2025 1:00 PM EST Office [place] [facility] [place] 32 [facility], 5th Floor, [address] [place] [address] Karena Betancur MD 55 [facility] 5B [place] [address] [email or web address] Scheduled Procedures Name Priority Associated [...] documented as of this encounter Care Teams Quality Assurance Qa Lab Technician Relationship Specialty Start Date End Date Laura Mock MD, DMD 1 [facility] [address] [place] [address] [email or web address] PCP - General Internal Medicine 06/04/21 11/11/23 Pcp, Unknown PCP - General 11/12/23 11/16/23 Laura Mock MD, DMD 1 [facility] [address] [place] [address] [email or web address] du PCP - General Internal Medicine 11/17/23 12/28/23 Pcp, Unknown PCP - General 02/28/24 03/04/24 [place] [address] [place] [address] PCP - General 03/05/24 05/17/24 Laura Mock MD, DMD [address] [address] [email or web address] du PCP - General Internal Medicine 05/18/24 Rina Swenson MD Psychiatry 07/09/17 Laura Mock MD, DMD [address] [address] [email or web address] du Partners Attributed Provider 09/01/21 07/03/23 Laura Mock MD, DMD [address] [address] [email or web address] du Insurance Assigned Provider 05/31/23 03/01/24 Jakob Bob MD [address] [place] [address] [place] [address] [email or web address] Cardiology 08/22/23 Jose Cruz MD [address] [place] [address], [address] [place] [address] Cardiology 08/22/23 Laura Mock MD, DMD 1 [facility] [address] [place] [address] [email or web address] Partners Attributed Provider 09/01/21 07/03/23 [facility] [phone]. Consulting Provider 08/22/23 [facility] Connect 12/24/23 03/11/24 Cyirl Morales [facility] [place] [address] Nurse Practitioner 02/27/24 documented as of this encounter Additional Source Comments The information contained in this document represents components of the legal health record. It is not the complete legal health record.[facility]
--- OUTSIDE RECORDS SUMMARY | 2024-11-29 16:03 | XMS_ITS | Encounter Summary ---
Author Organization [facility] Address Replaced by [facility] [employer] [facility] [address] [place] [address] Phone Care Team Providers Care Hand Stapler Name Role Phone Artie Meehan MD Primary Care Provider Artie Meehan MD Unavailable [phone] Rina Swenson MD Unavailable Laura Mock MD, DMD Primary Car e Provider Laura Mock MD, DMD Unavailable Laura Mock MD, DMD Unavailable Jakob Bob MD Unavailable [phone] Jose rCuz MD Unavailable Laura Mock MD, DMD Unavailable Pcp, Unknown Primary Care Provider UnavailLaura Ascencio MD, DMD Primary Car e Provider Pcp, Unknown Primary Care Provider UnavailNicole Arguello MD Primary Care Provide r Laura Mock MD, DMD Primary Car e Provider Encounter Details Date Type Department Care Team (Late st Contact Info) Description 11/29/2017 Transcribe Orders [facility] [address] [place] [address] Artie Meehan MD [address] [place] [address] [place] [address] Hypertension, essential (Primary Dx) Social History Tobacco [...] Description 01/05/2025 11:00 AM EST Pre-Admission Testing [address] [place] [address] Irineo Ruff MD [address] [place] [address] [email or web address] 01/10/2025 Procedure Pass [facility] Endoscopy Department [address] [place] [address] 01/10/2025 7:30 AM EST Hospital Encounter [facility] Endoscopy Department [address] [place] [address] Irineo Ruff MD [address] [place] [address] [email or web address] 01/10/2025 7:30 AM EST - 01/10/2025 8:15 AM EST Surgery [facility] Endoscopy Department [address] [place] [address] Irineo Ruff MD [address] [place] [address] [place] [address] [email or web address] COLONOSCOPY 01/31/2025 1:00 PM EST Office Visit [facility] Cardiovascular Medicine [address], 5th [address], [address] [place] [address] Karena Betancur MD [address] [facility] [address] [place] [address] [email or web address] Scheduled Procedures Name Priority Associated Diagnoses Date/Ti me COLONOSCOPY Abnormal colonoscopy 01/10/2025 7:30 AM EST documented as of this encounter Results * (ABNORMAL) Urinalysis (11/29/2017 10:52 AM EDT) Pathologist [facility] COLOR Yellow Yellow [facility] CLARITY Clear [facility] GLUCOSE Negative Negative [facility] BILI Negative Negative [facility] KETONES Negative Negative [facility] SPECIFIC GRAVITY 1.015 1.005 - 1.030 [facility] BLOOD Trace(A) Negative [facility] PH 6.0 5.0 - 8.0 [facility] Protein-UA Negative Negative [facility] NITRITE Negative Negative [facility] Leukocyte esterase, ur Negative Negative [facility] Urine (Urine) 11/29/2017 10: 52 AM EDT 11/29/2017 10:57 AM EDT us Artie Meehan MD URINE ORDERABLES Final Re sult [address] [address] * (ABNORMAL) CBC and differential (11/29/2017 10:52 AM EDT) WBC 3.98 3.40 - 11.20 K/uL [facility] RBC 5.32(H) 3.80 - 4.80 M/uL [facility] HGB 15.7(H) 12.0 - 15.0 g/dL [facility] HCT 48.4(H) 36.0 - 46.0 % [facility] PLT 223 130 - 400 K/uL [facility] MCV 91.0 79.0 - 98.0 fL [facility] MCH 29.5 27.0 - 34.8 pg [facility] MCHC 32.4 31.5 - 36.0 g/dL [facility] RDW 13.4 10.8 - 14.6 % [facility] MPV 9.1(L) 9.4 - 12.4 fl [facility] NRBC 0.00 /100 WBCs [facility] ABSOLUTE NRBC 0.00 K/uL [facility] DIFF [employer] [facility] NEUTS 58.8 45.30 - 77.70 % [facility] LYMPHS 26.6 12.30 - 39.70 % [facility] MONOS 10.8 4.10 - 12.80 % [facility] EOS 2.5 0 - 7.2 % [facility] BASOS 1.0 0 - 2.80 % [facility] Granulocytes, immature (%) 0.3 0.0 - 0.9 % [facility] ABSOLUTE NEUTS 2.34 1.40 - 7.70 K/uL [facility] ABSOLUTE LYMPHS 1.06 0.60 - 3.20 K/uL [facility] ABSOLUTE MONOS 0.43 0.11 - 0.59 K/uL [facility] ABSOLUTE EOS 0.10 0.01 - 0.50 K/uL [facility] ABSOLUTE BASOS 0.04 0.00 - 0.08 K/uL [facility] Granulocytes, immature 0.01 0.00 - 0.05 K/uL [facility] Blood 11/29/2017 10:5 2 AM EDT 11/29/2017 10:57 AM EDT us Artie Meehan MD LAB BLOOD ORDERABLES Neela l Result [address] [address] * (ABNORMAL) Lipid panel (11/29/2017 10:52 AM EDT) HDL 82 mg/dL [facility] Comment: Interpretation: Risk Level Females Decreased >55mg/dL Average 50-55 mg/dL Increased <50 mg/dL CHOLESTEROL 253(H) 0 - 240 mg/dL [facility] TRIGLYCERIDES 83 30 - 160 mg/dL [facility] LDL 154(H) 50 - 129 mg/dL [facility] Comment: LDL levels in terms of risk for coronary heart disease: <100 mg/dL: Optimal 100-129 mg/dL: Near or above optimal 130-159 mg/dL: Borderline high 160-189 mg/dL: High >190 mg/dL: Very High CARDIAC RISK RATIO 3.1(L) 3.3 - 4.4 C [facility] Blood 11/29/2017 10:5 2 AM EDT 11/29/2017 10:57 AM EDT us Artie Meehan MD LAB BLOOD ORDERABLES Neela milian Result [facility] [address] [place] [address] * Comprehensive metabolic panel (11/29/2017 10:52 AM EDT) SODIUM 145 133 - 146 mmol/L [facility] POTASSIUM 4.7 3.3 - 5.1 mmol/L [facility] CHLORIDE 104 96 - 108 mmol/L [facility] CO2 27 21 - 35 mmol/L [facility] BUN 17 6 - 19 mg/dL [facility] CREATININE 0.80 0.5 - 1.5 mg/dL [facility] GLUCOSE 86 70 - 99 mg/dL [facility] ALBUMIN 4.1 3.9 - 4.8 g/dL [facility] TOTAL PROTEIN 6.9 6.5 - 8.0 g/dL [facility] CALCIUM 9.2 8.4 - 10.3 mg/dL [facility] ALKALINE PHOSPHATASE 73 39 - 117 U/L [facility] TOTAL BILIRUBIN 0.5 0.0 - 1.2 mg/dL [facility] AST 19 0 - 37 U/L [facility] ALT 12 0 - 40 U/L [facility] GLOBULIN 2.8 1 - 4.8 g/dL [facility] EGFR 70 >59 mL/min/1.7 3m2 [facility] Comment:If patient is black, multiply result by 1.159. Estimated glomerular filtration rate calculated using the CKD-EPI equation. ANION GAP 19 10 - 20 mmol/L [facility] Blood 11/29/2017 10:5 2 AM EDT 11/29/2017 10:57 AM EDT us Artie Meehan MD LAB BLOOD ORDERABLES Neela l Result [address] [address] documented in this encounter Visit Diagnoses Diagnosis Hypertension, essential- Primary Unspecified essential hypertension Abnormal colonoscopy documented in this encounter Additional Health Concerns Infection Onset Date Last Indicated Resolved Time CoV-Presumed 03/23/2022 03/23/2022 04/13/2022 1:23 AM EST CoV-Risk 11/12/2023 11/12/2023 11/12/2023 5:12 PM EDT COVID-19 11/12/2023 11/12/2023 12/03/2023 1:21 AM EDT documented as of this encounter Care Teams Hand Stapler Relationship Specialty Start Date End Date Artie Meehan MD [address] [place] [address] [place] [address] PCP - General Internal Medicine 10/26/17 06/03/21 Laura Mock MD, DMD [address] [address] [email or web address] PCP - General Internal Medicine 06/04/21 11/11/23 Pcp, Unknown PCP - General 11/12/23 11/16/23 Laura Mock MD, DMD [address] [address] [email or web address] PCP - General Internal Medicine 11/17/23 12/28/23 Pcp, Unknown PCP - General 02/28/24 03/04/24 [place] [id number] [address] PCP - General 03/05/24 05/17/24 Laura Mock MD, DMD [address] [address] [email or web address] du PCP - General Internal Medicine 05/18/24 Artie Meehan MD [address] [place] [address] Dr Dior [facility] [place] [address] Internal Medicine 10/26/17 04/23/22 Rina Swenson MD [address] [place] [address] [address] [place], [place] [address] [address] Psychiatry 07/09/17 Laura Mock MD, DMD [address] [address] [email or web address] Attributed Provider 09/01/21 07/03/23 Laura Mock MD, DMD [address] [address] [email or web address] Insurance Assigned Provider 05/31/23 03/01/24 Jakob Bob MD [address] [facility] [address] [place] [address] [email or web address] Cardiology 08/22/23 Jose Cruz MD [facility], [address] [place] [address] [email or web address] Cardiology 08/22/23 Laura Mock MD, DMD 1 [facility] [address] [place] [address] [email or web address] Attributed Provider 09/01/21 07/03/23 [facility] [phone]. Consulting Provider 08/22/23 [facility] Connect 12/24/23 03/11/24 Cyril Morales [address] [place] [address] Nurse Practitioner 02/27/24 documented as of this encounter Additional Source Comments The information contained in this document represents components of the legal health record. It is not the complete legal health record.[facility]
--- OUTSIDE RECORDS SUMMARY | 2024-11-29 16:03 | XMS_ITS | Encounter Summary ---
Author Organization [facility] Address [address] [employer] [facility] [address] [place] [address] Phone Care Team Providers Care Paraprofessional Aide Teacher Name Role Phone Rina Swenson MD Unavailable [phone] Laura Mock MD, DMD Primary Car e Provider Laura Mock MD, DMD Unavailable Laura Mock MD, DMD Unavailable Jakob Bob MD Unavailable Jose Cruz MD Unavailable [phone] Laura Mock MD, DMD Unavailable Pcp, Unknown Primary Care Provider UnavailLaura Ascencio MD, DMD Primary Car e Provider Pcp, Unknown Primary Care Provider UnavailNicole Arguello MD Primary Care Provide r Laura Mock MD, DMD Primary Car e Provider Encounter Details Date Type Department Care Team (Late st Contact Info) Description 10/02/2022 Procedure Pass [facility] [address] [place] [address] Social History Tobacco Use Types Packs/Day Years [...] Description 01/05/2025 11:00 AM EST Pre-Admission Testing [address] [place] [address] Irineo Ruff MD [address] [place] [address] [email or web address] 01/10/2025 Procedure Pass [facility] Endoscopy Department [address] [place] [address] 01/10/2025 7:30 AM EST Hospital Encounter [facility] Endoscopy Department [address] [place] [address] Irineo Ruff MD [address] [place] [address] [email or web address] 01/10/2025 7:30 AM EST - 01/10/2025 8:15 AM EST Surgery [facility] Endoscopy Department [address] [place] [address] Irineo Ruff MD [address] [place] [address] [email or web address] [email or web address] 01/31/2025 1:00 PM EST Office Visit [facility] Cardiovascular Medicine [address] [facility], 5th Floor, [address] [place] [address] Karena Betancur MD [address] [facility] [address] [place] [address] [email or web address] Scheduled Procedures Name Priority [...] documented as of this encounter Care Teams Paraprofessional Aide Teacher Relationship Specialty Start Date End Date Laura Mock MD, DMD [address] [address] [email or web address] PCP - General Internal Medicine 06/04/21 11/11/23 Pcp, Unknown PCP - General 11/12/23 11/16/23 Laura Mock MD, DMD [address] [address] [email or web address] PCP - General Internal Medicine 11/17/23 12/28/23 Pcp, Unknown PCP - General 02/28/24 03/04/24 [place] [address] [place] [address] [address] PCP - General 03/05/24 05/17/24 Laura Mock MD, DMD [address] [address] [email or web address] PCP - General Internal Medicine 05/18/24 Rina Swenson MD Psychiatry 07/09/17 Laura Mock MD, DMD [address] [address] [email or web address] Attributed Provider 09/01/21 07/03/23 Laura Mock MD, DMD [address] [address] [email or web address] Insurance Assigned Provider 05/31/23 03/01/24 Jakob Bob MD [address] [place] [address] [email or web address] Cardiology 08/22/23 Jose Cruz MD [address] [place] [address], [address] [place] [address] Cardiology 08/22/23 Laura Mock MD, DMD [address] [address] [email or web address] Attributed Provider 09/01/21 07/03/23 [facility] [phone]. Consulting Provider 08/22/23 [facility] Connect 12/24/23 03/11/24 Cyril Morales [address] [place] [address] Nurse Practitioner 02/27/24 documented as of this encounter Additional Source Comments The information contained in this document represents components of the legal health record. It is not the complete legal health record.[facility]
--- OUTSIDE RECORDS SUMMARY | 2024-11-29 16:03 | XMS_ITS | Encounter Summary ---
Author Organization [facility] Address [facility] [employer] [address] [address] Phone Care Team Providers Care Speech Therapy Assistant Name Role Phone Rina Swenson MD Unavailable Laura Mock MD, DMD Primary Car e Provider Laura Mock MD, DMD Unavailable Laura Mock MD, DMD Unavailable Jakob Bob MD Unavailable [phone] Jose Cruz MD Unavailable Laura Mock MD, [...] Description 01/05/2025 11:00 AM EST Pre-Admission Testing [address] [address] Irineo Ruff MD [address] [place] [address] [email or web address] 01/10/2025 Procedure Pass [facility] Endoscopy Department [address] [place] [address] 01/10/2025 7:30 AM EST Hospital Encounter [facility] Endoscopy Department [address] [place] [address] Irineo Ruff MD [address] [place] [address] [email or web address] 01/10/2025 7:30 AM EST - 01/10/2025 8:15 AM EST Surgery [facility] Endoscopy Department [address] [place] [address] Irineo Ruff MD [address] [place] [address] [email or web address] COLONOSCOPY 01/31/2025 1:00 PM EST Office Visit [facility] Cardiovascular Medicine [address] [facility], 5th Floor, [address] [place] [address] Karena Betancur MD [address] [facility] [address] [place] [address] [email or web address] Scheduled Procedures Name Priority Associated [...] documented as of this encounter Care Teams Speech Therapy Assistant Relationship Specialty Start Date End Date Laura Mock MD, DMD [address] [address] [email or web address] PCP - General Internal Medicine 06/04/21 11/11/23 Pcp, Unknown PCP - General 11/12/23 11/16/23 Laura Mock MD, DMD [address] [address] [email or web address] PCP - General Internal Medicine 11/17/23 12/28/23 Pcp, Unknown PCP - General 02/28/24 03/04/24 Nicole Newell MD [address] [place] [id number] PCP - General 03/05/24 05/17/24 Laura Mock MD, DMD [address] [address] [email or web address] PCP - General Internal Medicine 05/18/24 Rina Swenson MD Psychiatry 07/09/17 Laura Mock MD, DMD [address] [address] [email or web address] [employer] Attributed Provider 09/01/21 07/03/23 Laura Mock MD, DMD [address] [address] [email or web address] du Insurance Assigned Provider 05/31/23 03/01/24 Jakob Bob MD 75 [facility] [place] [address] [email or web address] Cardiology 08/22/23 Jose Cruz MD [address] [place] [address] Cardiology 08/22/23 Laura Mock MD, DMD [address] [address] [email or web address] Partners Attributed Provider 09/01/21 07/03/23 [facility] [phone]. Consulting Provider 08/22/23 [facility] Connect 12/24/23 03/11/24 Cyril Morales [address] [place] [address] Nurse Practitioner 02/27/24 documented as of this encounter Additional Source Comments The information contained in this document represents components of the legal health record. It is not the complete legal health record.[facility]
--- OUTSIDE RECORDS SUMMARY | 2024-11-29 16:03 | XMS_ITS | Encounter Summary ---
Author Organization [facility] Address [address] [employer] [facility] [address] [place] [address] Phone Care Team Providers Care Party Bus Driver Name Role Phone Rina Swenson MD Unavailable Laura Mock MD, DMD Primary Car e Provider Laura Mock MD, DMD Unavailable Laura Mock MD, DMD Unavailable Jakob Bob MD Unavailable [phone] Jose Cruz MD Unavailable Laura Mock MD, DMD Unavailable Pcp, Unknown Primary Care Provider UnavailLaura Ascencio MD, DMD Primary Car e Provider Pcp, Unknown Primary Care Provider UnavailNicole Arguello MD Primary Care Provide r Laura Mock MD, DMD Primary Car e Provider Encounter Details Date Type Department Care Team (Late st Contact Info) Description 05/27/2023 Procedure Pass [facility] Endoscopy Department [address] [place] [address] Social History Tobacco Use Types Packs/Day Years [...] 01/05/2025 11:00 AM EST Pre-Admission Testing [address] [address] Irineo Ruff MD [address] [place] [address] [email or web address]@[email or web address] 01/10/2025 Procedure Pass [facility] Endoscopy Department [address] [place] [address] 01/10/2025 7:30 AM EST Hospital Encounter [facility] Endoscopy Department [address] [place] [address] Irineo Ruff MD [address] [place] [address] [email or web address]@[email or web address] 01/10/2025 7:30 AM EST - 01/10/2025 8:15 AM EST Surgery [facility] Endoscopy Department [address] [place] [address] Irineo Ruff MD [address] [place] [address] [email or web address]@[facility] COLONOSCOPY 01/31/2025 1:00 PM EST Office Visit [facility] [place] Cardiovascular Medicine [address] [facility], 5th Floor, [address] [place] [address] Karena Betancur MD [address] [facility] [address] [place] [address] [email or web address] Scheduled Procedures Name Priority [...] documented as of this encounter Care Teams Party Bus Driver Relationship Specialty Start Date End Date Laura Mock MD, DMD [address] [address] [email or web address] PCP - General Internal Medicine 06/04/21 11/11/23 Pcp, Unknown PCP - General 11/12/23 11/16/23 Laura Mock MD, DMD [address] [address] [email or web address] PCP - General Internal Medicine 11/17/23 12/28/23 Pcp, Unknown PCP - General 02/28/24 03/04/24 [place] [address] [place] [address] PCP - General 03/05/24 05/17/24 Laura Mock MD, DMD [address] [facility] [address] [place] [address] [email or web address] PCP - General Internal Medicine 05/18/24 Rina Swenson MD Psychiatry 07/09/17 Laura Mock MD, DMD [address] [address] [email or web address] Attributed Provider 09/01/21 07/03/23 Laura Mock MD, DMD [address] [address] [email or web address] Insurance Assigned Provider 05/31/23 03/01/24 Jakob Bob MD [address] [place] [address] [place] [address] [email or web address] Cardiology 08/22/23 Jose Cruz MD [address] [place] [address], [address] [place] [address] Cardiology 08/22/23 Laura Mock MD, DMD [address] [address] [email or web address] Attributed Provider 09/01/21 07/03/23 [facility] [phone]. Consulting Provider 08/22/23 CAROLANN GREWAL Connect 12/24/23 03/11/24 Cyril Morales [facility] [place] [address] Nurse Practitioner 02/27/24 documented as of this encounter Additional Source Comments The information contained in this document represents components of the legal health record. It is not the complete legal health record.[facility]
--- OUTSIDE RECORDS SUMMARY | 2024-11-29 16:03 | XMS_ITS | Encounter Summary ---
Author Organization [facility] Address [facility] [employer] [address] [address] Phone Care Team Providers Care Halftone Operator Name Role Phone Rina Swenson MD [...] Description 01/05/2025 11:00 AM EST Pre-Admission Testing [facility] 45 [facility] 2nd [place] [address] Irineo Ruff MD [address] [place] [address] [email or web address] 01/10/2025 Procedure Pass [facility] Endoscopy Department [address] [place] [address] 01/10/2025 7:30 AM EST Hospital Encounter [facility] Endoscopy Department [address] [place] [address] Irineo Ruff MD [address] [place] [address] [place] [address] [email or web address] 01/10/2025 7:30 AM EST - 01/10/2025 8:15 AM EST Surgery [facility] Endoscopy Department [address] [place] [address] Irineo Ruff MD [address] [place] [address] [email or web address] COLONOSCOPY 01/31/2025 1:00 PM EST Office Visit [facility] Cardiovascular Medicine 32 [facility], 5th Floor, [address] [place] [address] Karena Betancur MD [address] [address] [email or web address] Scheduled Procedures Name Priority Associated [...] documented as of this encounter Care Teams Halftone Operator Relationship Specialty Start Date End Date Laura Mock MD, DMD [address] [address] [email or web address] PCP - General Internal Medicine 06/04/21 11/11/23 Pcp, Unknown PCP - General 11/12/23 11/16/23 Laura Mock MD, DMD [address] [address] [email or web address] PCP - General Internal Medicine 11/17/23 12/28/23 Pcp, Unknown PCP - General 02/28/24 03/04/24 [place] [address] [address] PCP - General 03/05/24 05/17/24 Laura Mock MD, DMD [address] [address] [email or web address] PCP - General Internal Medicine 05/18/24 Rina Swenson MD Psychiatry 07/09/17 Laura Mock MD, DMD [address] [address] [email or web address] Partners Attributed Provider 09/01/21 07/03/23 Laura Mock MD, DMD [address] [address] [email or web address] du Insurance Assigned Provider 05/31/23 03/01/24 Jakob Bob MD [address] [place] [address] [email or web address] Cardiology 08/22/23 Jose Cruz MD [address] [place] [address] [email or web address] Cardiology 08/22/23 Laura Mock MD, DMD [address] [address] [email or web address] Partners Attributed Provider 09/01/21 07/03/23 [facility] [phone]. Consulting Provider 08/22/23 [facility] Connect 12/24/23 03/11/24 Cyril Morales [address] [place] [phone] Nurse Practitioner 02/27/24 documented as of this encounter Additional Source Comments The information contained in this document represents components of the legal health record. It is not the complete legal health record.[facility]
--- OUTSIDE RECORDS SUMMARY | 2024-11-29 16:03 | XMS_ITS | Encounter Summary ---
Author Organization [facility] Address [address] [place] [address] [place] [address] Phone Care Team Providers Care Director Internal Control Name Role Phone Rina Swenson MD Unavailable [...] st Contact Info) Description 03/23/2023 Anti-coag visit [facility] Anticoagulation Clinic [address] [place] [address] Purvi Lawler, PharmD [address] [place] [address] [email or web address] Social History Tobacco Use Types Packs/Day [...] [facility] [address] [facility] 2nd [place] [address] Irineo Ruff MD [address] [place] [address] [place] [address] [email or web address] 01/10/2025 Procedure Pass [facility] Endoscopy Department [address] [place] [address] 01/10/2025 7:30 AM EST Hospital Encounter [facility] Endoscopy Department [address] [place] [address] Irineo Ruff MD [address] [place] [address] [email or web address] 01/10/2025 7:30 AM EST - 01/10/2025 8:15 AM EST Surgery [facility] Endoscopy Department [address] [place] [address] Irineo Ruff MD [address] [facility] [place] [address] [email or web address] COLONOSCOPY 01/31/2025 1:00 PM EST Office Visit [facility] Cardiovascular Medicine [address] [facility], 5th Floor, [address] [place] [address] Karena Betancur MD 55 [facility] 5B [place] [address] [email or web address] Scheduled Procedures Name Priority Associated Diagnoses [...] as of this encounter Care Teams Director Internal Control Relationship Specialty Start Date End Date Laura Mock MD, DMD 1 [facility] [address] [place] [address] [email or web address] PCP - General Internal Medicine 06/04/21 11/11/23 Pcp, Unknown PCP - General 11/12/23 11/16/23 Laura Mock MD, DMD 1 [facility] [address] [place] [address] [email or web address] PCP - General Internal Medicine 11/17/23 12/28/23 Pcp, Unknown PCP - General 02/28/24 03/04/24 [place] [address] [place] [address] PCP - General 03/05/24 05/17/24 Laura Mock MD, DMD [address] [address] [email or web address] PCP - General Internal Medicine 05/18/24 Rina Swenson MD Psychiatry 07/09/17 Laura Mock MD, DMD [address] [address] [email or web address] Partners Attributed Provider 09/01/21 07/03/23 Laura Mock MD, DMD [address] [address] [email or web address] Insurance Assigned Provider 05/31/23 03/01/24 Jakob Bob MD [address] [place] [address] [place] [address] [email or web address] Cardiology 08/22/23 Jose Cruz MD [address] [place] [address], [facility] [address] [place] [address] Cardiology 08/22/23 Laura Mock MD, DMD 1 [facility] [address] [place] [address] [email or web address] Partners Attributed Provider 09/01/21 07/03/23 [facility] [phone]. Consulting Provider 08/22/23 [facility] Connect 12/24/23 03/11/24 Cyril Morales [facility] [place] [address] Nurse Practitioner 02/27/24 documented as of this encounter Additional Source Comments The information contained in this document represents components of the legal health record. It is not the complete legal health record.[facility]
--- OUTSIDE RECORDS SUMMARY | 2024-11-29 16:03 | XMS_ITS | Encounter Summary ---
Author Organization [facility] Address [address] [employer] [facility] [address] [place] [address] Phone Care Team Providers Care Tubing Oiler Name Role Phone Rina Swenson MD Unavailable Laura Mock MD, DMD Unavailable Jakob Bob MD Unavailable Jose Cruz MD Unavailable Laura Mock MD, DMD Primary Car e Provider Pcp, Unknown Primary Care Provider UnavailNicole Arguello MD Primary Care Provide r Laura Mock MD, DMD Primary Car e Provider Encounter Details Date Type Department Care Team (Late st Contact Info) Description 12/04/2023 Procedure Pass [facility] Periop [address] [place] [address] Social History Tobacco Use Types Packs/Day Years [...] 01/05/2025 11:00 AM EST Pre-Admission Testing [address] [address] Irineo Ruff MD [address] [place] [address] [email or web address] 01/10/2025 Procedure Pass [facility] Endoscopy Department [address] [place] [address] 01/10/2025 7:30 AM EST Hospital Encounter [facility] Endoscopy Department [address] [place] [address] Irineo Ruff MD [address] [place] [address] [email or web address] 01/10/2025 7:30 AM EST - 01/10/2025 8:15 AM EST Surgery [facility] Endoscopy Department [address] [place] [address] Irineo Ruff MD 75 [facility], [place] [address] [email or web address] COLONOSCOPY 01/31/2025 1:00 PM EST Office Visit [facility] [place] Medicine [address] [facility], 5th Floor, [address] [place] [address] Karena Betancur MD 55 [facility] [address] [place] [address] [email or web address] [email or web address] Scheduled Procedures Name Priority Associated Diagnoses Date/Ti me COLONOSCOPY Abnormal colonoscopy 01/10/2025 7:30 AM EST documented as of this encounter Visit Diagnoses Not on filedocumented in this encounter Additional Health Concerns Assessment Noted Time PHQ-9 Depression Total Score: 17 04/24/ 023 11:28 AM EST PHQ-2 Depression Total Score: 2 10/10/19 23 11:28 AM EDT documented as of this encounter Care Teams Tubing Oiler Relationship Specialty Start Date End Date Laura Mock MD, DMD [address] [address] [email or web address] PCP - General Internal Medicine 11/17/23 12/28/23 Pcp, Unknown PCP - General 02/28/24 03/04/24 [place] [address] [address] PCP - General 03/05/24 05/17/24 Laura Mock MD, DMD [address] [address] [email or web address] PCP - General Internal Medicine 05/18/24 Rina Swenson MD Psychiatry 07/09/17 Laura Mock MD, DMD 1 [facility] [address] [place] [address] [email or web address] Insurance Assigned Provider 05/31/23 03/01/24 Jakob Bob MD 75 [facility] [place] [address] [email or web address] Cardiology 08/22/23 Jose Cruz MD [address] [facility] [address] [place] [address] Cardiology 08/22/23 [facility] [phone]. Consulting Provider 08/22/23 [facility] Connect 12/24/23 03/11/24 Cyril Morales [address] [place] [address] Nurse Practitioner 02/27/24 documented as of this encounter Additional Source Comments The information contained in this document represents components of the legal health record. It is not the complete legal health record.[facility]
--- OUTSIDE RECORDS SUMMARY | 2024-11-29 16:03 | XMS_ITS | Encounter Summary ---
Author Organization [facility] Address [facility] [address] [address] Phone Care Team Providers Care Community Service Director Name Role Phone Rina Swenson MD Unavailable Laura Mock MD, DMD Primary Car e Provider Laura Mock MD, DMD Unavailable Laura Mock MD, DMD Unavailable Jakob Bob MD Unavailable Jose Cruz MD Unavailable [phone] Laura Mock MD, DMD Unavailable Pcp, Unknown [...] Description 01/05/2025 11:00 AM EST Pre-Admission Testing [address] [address] Irineo Ruff MD [address] [place] [address] [email or web address] 01/10/2025 Procedure Pass [facility] Endoscopy Department [address] [place] [address] 01/10/2025 7:30 AM EST Hospital Encounter [facility] Endoscopy Department [address] [place] [address] Irineo Ruff MD [address] [place] [address] [email or web address]@[email or web address] 01/10/2025 7:30 AM EST - 01/10/2025 8:15 AM EST Surgery [facility] Endoscopy Department [address] [place] [address] Irineo Ruff MD [address] [place] [address] [email or web address] COLONOSCOPY 01/31/2025 1:00 PM EST Office Visit [facility] Cardi[place] Medicine 32 [facility], 5th Floor, [address] [place] [address] Karena Betancur MD 55 [facility] [address] [place] [address] [email or web address] Scheduled Procedures Name Priority Associated Diagnoses Date/Ti [...] documented as of this encounter Care Teams Community Service Director Relationship Specialty Start Date End Date Laura Mock MD, DMD [address] [address] [email or web address] PCP - General Internal Medicine 06/04/21 11/11/23 Pcp, Unknown PCP - General 11/12/23 11/16/23 Laura Mock MD, DMD [address] [address] [email or web address] PCP - General Internal Medicine 11/17/23 12/28/23 Pcp, Unknown PCP - General 02/28/24 03/04/24 Nicole Newell MD [address] [place] [id number] PCP - General 03/05/24 05/17/24 Laura Mock MD, DMD [address] [address] [email or web address] PCP - General Internal Medicine 05/18/24 Rina Swenson MD Psychiatry 07/09/17 Laura Mock MD, DMD [address] [address] [email or web address] Partners Attributed Provider 09/01/21 07/03/23 Laura Mock MD, DMD [address] [address] [email or web address] Insurance Assigned Provider 05/31/23 03/01/24 Jakob Bob MD 75 [facility] [place] [address] [email or web address] Cardiology 08/22/23 Jose Cruz MD [address] [place] [address] Cardiology 08/22/23 Laura Mock MD, DMD [address] [address] [email or web address] Partners Attributed Provider 09/01/21 07/03/23 [employer] [phone]. Consulting Provider 08/22/23 [facility] Connect 12/24/23 03/11/24 Cyril Morales [address] [place] [address] Nurse Practitioner 02/27/24 documented as of this encounter Additional Source Comments The information contained in this document represents components of the legal health record. It is not the complete legal health record.[facility]
--- OUTSIDE RECORDS SUMMARY | 2024-11-29 16:03 | XMS_ITS | Clinical Summary ---
Author Organization [facility] Address [address] [employer] [address] [place] [address] Phone Care Team Providers Care Field Ring Assembler Name Role Phone Rina Swenson MD Unavailable Jakob Bob MD Unavailable [phone] Jose Cruz MD Unavailable Laura Mokc MD, DMD Primary Car e Provider Allergies Active Allergy Reactions Criticality Noted Date Comments Azithromycin Nausea Only 08/10/2012 Azithromycin Hives Medium 10/26/2017 Latex 12/26/2018 Medications clonazePAM (KLONOPIN) 0.5 MG tablet Take 0.5 mg by mouth 2 (two) times a day. Active dextroamphetami ne-amphetamine (ADDERALL) 30 mg Tab tablet Take 30 mg by mouth every morning. 4 Active lisinopril (PRINIVIL,ZESTR IL) 10 MG tabletIndicatio ns:Nonrheumatic aortic valve stenosis Take 1 tablet (10 mg total) by mouth 2 (two) times a day. 180 tablet 3 4 Active albuterol (ACCUNEB) 0.63 mg/3 mL nebulizer solution TAKE 3 ML BY NEBULIZATION EVERY 6 HOURS NEEDED FOR WHEEZING. BRONCHOSPASM PREVENTION, THICK TENACIOUS SECRETIONS ICD-10 J44.9 150 mL 4 Active warfarin (COUMADIN) 1 MG tablet TAKE 3 TABLETS BY MOUTH AT BEDTIME (EXCEPT ON FRIDAYS TAKE 4 TABS) GOAL INR OF TWO (2) TO THREE (3) 264 tablet 5 Active Active Problems Problem Noted Date Diagnosed Date Acute respiratory failure with hypoxia 4 Assessment & Plan (11/16/2023 1:06 PM EDT): Secondary to COVID-19. 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, followed by thoracic team at [facility]; has chronic changes on CT No longer [...] given a the option to go to [facility] Coumadin clinic or to go back to [facility] where she has been a patient [...] Type Department Care Team Description 10/13/2024 Telephone [facility] [address] 2nd [place] [address] Laura Mock MD, DMD Colonoscopy 10/07/2024 Refill [facility] [address] [place] [address] 3rd Floor, [address] [place] [address] Jose Cruz MD Medication Refill 09/17/2024 Telephone [facility] 1 [facility] 2nd [place] [address] Laura Mock MD, DMD Colonoscopy from Last 3 Months Immunizations Immunization Administration [...] Description 01/05/2025 11:00 AM EST Pre-Admission Testing [facility] 45 [facility] 2nd [place] [address] Irineo Ruff MD [address] [place] [address] [email or web address] 01/10/2025 Procedure Pass [facility] Endoscopy Department [address] [place] [address] 01/10/2025 7:30 AM EST Hospital Encounter [facility] Endoscopy Department [address] [place] [address] Irineo Ruff MD [address] [place] [address] [email or web address] 01/10/2025 7:30 AM EST - 01/10/2025 8:15 AM EST Surgery [facility] Endoscopy Department 75 [place] [address] Irineo Ruff MD 75 [facility], [place] [address] [email or web address] COLONOSCOPY 01/31/2025 1:00 PM EST Office Visit [facility] Cardiovascular Medicine 32 [facility], 5th Floor, [address] [place] [address] Karena Betancur MD 55 [facility] [address] [place] [address] [email or web address] Scheduled Procedures Name Priority Associated Diagnoses Date/Ti me COLONOSCOPY Abnormal colonoscopy 01/10/2025 7:30 AM EST Health Maintenance Due Date Last Done Comments Adult Td,Tdap Booster 1938 FIT TEST 10/29/1983 FOBT 10/29/1983 SIGMOIDOSCOPY 10/29/1983 VIRTUAL COLONOSCOPY 10/29/1983 RSV VACCINE (1 - 1-dose 75+ series) 2013 COLONOSCOPY 07/09/2019 07/08/2014, 06/24/2014 COLORECTAL CANCER SCREENING 05/16/2022 DEPRESSION SCREENING 10/10/2023 10/09/2022, 04/25/19 23 INFLUENZA VACCINE (#1) 2024 , 12/11/2022, 12/11/2022, Additional history exists COVID-19 VACCINE ( season) 2024 02/20/2024, 11/08/2022, 11/09/2021, Additional history exists CREATININE LEVEL 12/03/2024 12/04/2023, [...] this topic Medical Devices Implanted Type Area Furrier Shop Supervisor Device Identifier Shelf Expiration Date Model / Serial / Lot St Drew Aortic Valve 23mm-04/19/2002 Implanted:04/19/19 03 (Quantity not on file) Description:Per OP report fr om 04/19/02: Pt has a 23mm [employer] Drew Aortic Valve replacement Per pipe bowls paint trimmer: cond to 1.5T and 3T (see scanned [...] EDT) SODIUM 139 136 - 145 mmol/L [facility] POTASSIUM 4.8 3.4 - 5.1 mmol/L [facility] CHLORIDE 100 98 - 107 mmol/L [facility] CO2 28 22 - 31 mmol/L [facility] BUN 18 6 - 23 mg/dL [facility] CREATININE 0.71 0.50 - 1.20 mg/dL [facility] GLUCOSE 94 70 - 100 mg/dL [facility] CALCIUM 9.6 8.8 - 10.7 mg/dL [facility] EGFR 83 >59 mL/min/1.7 3m2 [facility] Comment:Estimated glomerular filtration rate calculated using the CKD-EPI refit equation. ANION GAP 11 7 - 17 mmol/L [facility] Blood 12/04/2023 1:58 PM EDT 12/04/2023 2:02 PM EDT us Jim Zacarias MD LAB BLOOD ORDERABLES Final Result Performing Organization Address City/State/[facility] Co de Phone Number [facility] [address] [place] [address] * BD DXA AXIAL (SPINE) WITH HIP [...] bone mineral density was calculated at 0.409 gm/jh9pqkk a T- score of -4 falling within [...] Maintenance Insurance MEDICARE PART A & B [employer] MEDEX SUPPLEMENT MEDICARE PART A & B [employer] MEDEX SUPPLEMENT MEDICARE PART A & B Member Subscriber Plan / Payer ( fective 2003-Present) Name:Anna Castillo Member ID:[id number] Relation to Subscriber:Self Name:Anna Castillo Subscriber ID:[id number] Payer ID:[id number] Group ID:Not on file Type:Medicare Address: [employer] [address] [employer] MEDEX SUPPLEMENT MEDICARE PART A & B [employer] MEDEX SUPPLEMENT MEDICARE PART A & B [employer] MEDEX SUPPLEMENT MEDICARE PART A & B [employer] MEDEX SUPPLEMENT MEDICARE PART A & B [employer] MEDEX SUPPLEMENT MEDICARE PART A & B [employer] MEDEX SUPPLEMENT MEDICARE PART A & B [employer] MEDEX SUPPLEMENT Advance Directives For more information, please contact: [phone] (9AM - 5PM Nataliya/[facility], Friday-Friday) Documents on File Type Date Recorded Patient Safety Aide Expl anation Healthcare Proxy 11/18/2023 2:08 PM Healthcare Proxy 11/14/2023 7:46 AM Health care Proxy * Full Code (Latest Code Status on File) Date Activated Date Inactivated Comments 11/12/2023 10:33 PM Question Answer Comments Code Status Confirmed With: Other (specify below ) Code Discussion Comments: Presumed Care Teams Field Ring Assembler Relationship Specialty Start Date End Date Laura Mock MD, DMD 1 [facility] [address] [place] [address] [email or web address] PCP - General Internal Medicine 05/18/24 Rina Swenson MD Psychiatry 07/09/17 Jakob Bob MD 75 [facility] [place] [address] [email or web address] Cardiology 08/22/23 Jose Cruz MD 22 [facility] [address] [place] [address] Cardiology 08/22/23 [facility] [phone]. Consulting Provider 08/22/23 Cyril Morales [facility] [place] [address] Nurse Practitioner 02/27/24 Additional Source Comments The information contained in this document represents components of the legal health record. It is not the complete legal health record.[facility]
--- OUTSIDE RECORDS SUMMARY | 2024-11-29 16:03 | XMS_ITS | Patient Health Record ---
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
--- OUTSIDE RECORDS SUMMARY | 2024-11-29 16:03 | XMS_ITS | Encounter Summary ---
Author Organization [facility] Address [address] [facility] [address] [place] [address] Phone Care Team Providers Care Aeronautical Design Engineer Name Role Phone Rina Swenson MD Unavailable [phone] Laura Mock MD, DMD Primary Car e Provider Laura Mock MD, DMD Unavailable Laura Mock MD, DMD Unavailable Jakob Bob MD Unavailable [phone] Jose Cruz MD Unavailable Laura Mock MD, DMD Unavailable Pcp, Unknown Primary Care Provider UnavailLaura Ascencio MD, DMD Primary Car e Provider Pcp, Unknown Primary Care Provider UnavailNicole Arguello MD Primary Care Provide r Laura Mock MD, DMD Primary Car e Provider Encounter Details Date Type Department Care Team (Late st Contact Info) Description 10/09/2022 Procedure Pass [facility] CT Imaging, [place] [address] [place] [address] Social History Tobacco Use Types Packs/Day Years [...] 01/05/2025 11:00 AM EST Pre-Admission Testing [facility] [address] [facility] 2nd [place] [address] Irineo Ruff MD [address] [place] [address] [email or web address] 01/10/2025 Procedure Pass [facility] Endoscopy Department [address] [place] [address] 01/10/2025 7:30 AM EST Hospital Encounter [facility] Endoscopy Department [address] [place] [address] Irineo Ruff MD [address] [place] [address] [email or web address] 01/10/2025 7:30 AM EST - 01/10/2025 8:15 AM EST Surgery [facility] Endoscopy Department [address] [place] [address] Irineo Ruff MD [address] [place] [address] [email or web address] COLONOSCOPY 01/31/2025 1:00 PM EST Office Visit [facility] Cardiovascular Medicine [address], 5th Floor, [address] [place] [address] Karena Betancur MD [address] [facility] [address] [place] [address] [email or web address] Scheduled Procedures Name Priority Associated Diagnoses Date/Ti [...] documented as of this encounter Care Teams Aeronautical Design Engineer Relationship Specialty Start Date End Date Laura Mock MD, DMD [address] [address] [email or web address] PCP - General Internal Medicine 06/04/21 11/11/23 Pcp, Unknown PCP - General 11/12/23 11/16/23 Laura Mock MD, DMD [address] [address] [email or web address] PCP - General Internal Medicine 11/17/23 12/28/23 Pcp, Unknown PCP - General 02/28/24 03/04/24 [place] [address] [address] PCP - General 03/05/24 05/17/24 Laura Mock MD, DMD [address] [address] [email or web address] du PCP - General Internal Medicine 05/18/24 Rina Swenson MD Psychiatry 07/09/17 Laura Mock MD, DMD [address] [address] [email or web address] du Partners Attributed Provider 09/01/21 07/03/23 Laura Mock MD, DMD [address] [address] [email or web address] du Insurance Assigned Provider 05/31/23 03/01/24 Jakob Bob MD [address] [facility] [place] [address] [email or web address] Cardiology 08/22/23 Jose Cruz MD [address] [place] [address], [address] [place] [address] Cardiology 08/22/23 Laura Mock MD, DMD [address] [address] [email or web address] Partners Attributed Provider 09/01/21 07/03/23 [facility] [phone]. Consulting Provider 08/22/23 [facility] 12/24/23 03/11/24 Cyril Morales [address] [place] [address] Nurse Practitioner 02/27/24 documented as of this encounter Additional Source Comments The information contained in this document represents components of the legal health record. It is not the complete legal health record.[facility]
--- OUTSIDE RECORDS SUMMARY | 2024-11-29 16:03 | XMS_ITS | Encounter Summary ---
Author Organization [facility] Address [address] [address] Phone Care Team Providers Care Director Of Vital Statistics Name Role Phone Rina Swenson MD Unavailable Laura Mock MD, DMD Primary Car e Provider Laura Mock MD, DMD Unavailable Laura Mock MD, DMD Unavailable Jakob Bob MD Unavailable Jose Cruz MD Unavailable [phone] Laura Mcok MD, DMD Unavailable Pcp, Unknown Primary Care Provider UnavailLaura Ascencio MD, DMD Primary Car e Provider Pcp, Unknown Primary Care Provider UnavailNicole Arguello MD Primary Care Provide r Laura Mock MD, DMD Primary Car e Provider Encounter Details Date Type Department Care Team (Late st Contact Info) Description 10/06/2022 Anti-coag visit [facility] Anticoagulation Clinic [address] [place] [address] Abbie Prieto, PharmD [address] [place] [address] [email or web address] Social History Tobacco Use Types Packs/Day Years [...] Pre-Admission Testing [facility] 45 [facility] 2nd [place] [address] Irineo Ruff MD [address] [place] [address] [email or web address] 01/10/2025 Procedure Pass [facility] Endoscopy Department [address] [place] [address] 01/10/2025 7:30 AM EST Hospital Encounter [facility] Endoscopy Department [address] [place] [address] Irineo Ruff MD [address] [place] [address] [email or web address] 01/10/2025 7:30 AM EST - 01/10/2025 8:15 AM EST Surgery [facility] Endoscopy Department [address] [place] [address] Irineo Ruff MD 75 [facility] [place] [address] [email or web address] COLONOSCOPY 01/31/2025 1:00 PM EST Office Visit [facility] Cardiovascular Medicine [address], 5th [address], [address] [place] [address] Karena Betancur MD [address] [facility] [address] [place] [address] [email or web address] Scheduled Procedures [...] as of this encounter Care Teams Director Of Vital Statistics Relationship Specialty Start Date End Date Laura Mock MD, DMD 1 [facility] [address] [place] [address] [email or web address] PCP - General Internal Medicine 06/04/21 11/11/23 Pcp, Unknown PCP - General 11/12/23 11/16/23 Laura Mock MD, DMD 1 [facility] [address] [place] [address] [email or web address] du PCP - General Internal Medicine 11/17/23 12/28/23 Pcp, Unknown PCP - General 02/28/24 03/04/24 [place] [address] [place] [address] PCP - General 03/05/24 05/17/24 Laura Mock MD, DMD [address] [address] [email or web address] du PCP - General Internal Medicine 05/18/24 Rina Swenson MD Psychiatry 07/09/17 Laura Mock MD, DMD [address] [address] [email or web address] Partners Attributed Provider 09/01/21 07/03/23 Laura Mock MD, DMD [address] [address] [email or web address] du Insurance Assigned Provider 05/31/23 03/01/24 Jakob Bob MD [address] [place] [address] [place] [address] [email or web address] Cardiology 08/22/23 Joes Cruz MD [address] [place] [address], [address] [address] Cardiology 08/22/23 Laura Mock MD, DMD 1 [facility] [address] [place] [address] [email or web address] Partners Attributed Provider 09/01/21 07/03/23 [facility] [phone]. Consulting Provider 08/22/23 [facility] 12/24/23 03/11/24 Cyril Morales [address] [place] [address] Nurse Practitioner 02/27/24 documented as of this encounter Additional Source Comments The information contained in this document represents components of the legal health record. It is not the complete legal health record.[facility]
--- OUTSIDE RECORDS SUMMARY | 2024-11-29 16:04 | XMS_ITS | Encounter Summary ---
Author Organization [facility] Address formerly [facility] [employer] [facility] [address] [place] [address] Phone Care Team Providers Care Anesthesia Assistant Name Role Phone Artie Meehan MD Primary Care Provider Artie Meehan MD Unavailable [phone] Rina Swenson MD Unavailable Laura Mock MD, DMD Primary Car e Provider Laura Mock MD, DMD Unavailable Laura Mock MD, DMD Unavailable Jakob Bob MD Unavailable [phone] Jose Cruz MD Unavailable Laura Mock MD, DMD Unavailable Pcp, Unknown Primary Care Provider UnavailLaura Ascencio MD, DMD Primary Car e Provider Pcp, Unknown Primary Care Provider UnavailNicole Arguello MD Primary Care Provide r Laura Mock MD, DMD Primary Car e Provider Encounter Details Date Type Department Care Team (Late st Contact Info) Description 10/26/2017 Procedure Pass [facility], Ct Scan - [address] [address] Social History Tobacco Use Types Packs/Day Years [...] Description 01/05/2025 11:00 AM EST Pre-Admission Testing [address] 2nd [place] [address] Irineo Ruff MD [address] [place] [address] [place] [address] [email or web address] 01/10/2025 Procedure Pass [facility] Endoscopy Department [address] [place] [address] 01/10/2025 7:30 AM EST Hospital Encounter [facility] Endoscopy Department [address] [place] [address] Irineo Ruff MD [address] [place] [address] [place] [address] [email or web address] 01/10/2025 7:30 AM EST - 01/10/2025 8:15 AM EST Surgery [facility] Endoscopy Department [address] [place] [address] Irineo Ruff MD [address] [place] [address] [email or web address]@[facility] COLONOSCOPY 01/31/2025 1:00 PM EST Office Visit [facility] [place] Medicine [address] [place] [address], 5th Floor, [address] [place] [address] Karena Betancur MD [address] [place] [address] [email or web address] Scheduled Procedures Name Priority Associated [...] documented as of this encounter Care Teams Anesthesia Assistant Relationship Specialty Start Date End Date Artie Meehan MD [address] [place] [address] PCP - General Internal Medicine 10/26/17 06/03/21 Laura Mock MD, DMD [address] [address] [email or web address] PCP - General Internal Medicine 06/04/21 11/11/23 Pcp, Unknown PCP - General 11/12/23 11/16/23 Laura Mock MD, DMD [address] [address] [email or web address] PCP - General Internal Medicine 11/17/23 12/28/23 Pcp, Unknown PCP - General 02/28/24 03/04/24 Nicole Newell [place] [address] [place] [address] PCP - General 03/05/24 05/17/24 Laura Mock MD, DMD [address] [address] [email or web address] PCP - General Internal Medicine 05/18/24 Artie Meehan MD [address] [place] [address] Dr [address] [place] [address] Internal Medicine 10/26/17 04/23/22 Rina Swenson MD [address] [place] [address] Dr D[address] [place] [address] Psychiatry 07/09/17 Laura Mock MD, DMD [address] [address] [email or web address] Partners Attributed Provider 09/01/21 07/03/23 Laura Mock MD, DMD [address] [address] [email or web address] Insurance Assigned Provider 05/31/23 03/01/24 Jakob Bob MD [address] [place] [address] [place] [address] [email or web address] Cardiology 08/22/23 Jose Cruz MD [address] [place] [address], [address] [place] [address] Cardiology 08/22/23 Laura Mock MD, DMD 1 [facility] [address] [place] [address] [email or web address] Attributed Provider 09/01/21 07/03/23 [facility] [phone]. Consulting Provider 08/22/23 [facility] 12/24/23 03/11/24 Cyril Morales [address] [place] [address] Nurse Practitioner 02/27/24 documented as of this encounter Additional Source Comments The information contained in this document represents components of the legal health record. It is not the complete legal health record.[facility]
--- OUTSIDE RECORDS SUMMARY | 2024-11-29 16:04 | XMS_ITS | Encounter Summary ---
Author Organization [facility] Address [facility] [employer] [facility] [address] [place] [address] Phone Care Team Providers Care Performing Arts Road Manager Name Role Phone Artie Meehan MD Primary Care Provider Artie Meehan MD Primary Care Provider Artie Meehan MD Unavailable Rina Swenson MD Unavailable [phone] Laura Mock MD, DMD Primary Car e Provider Laura Mock MD, DMD Unavailable Laura Mock MD, DMD Unavailable Jakob Bob MD Unavailable [phone] Jose Cruz MD Unavailable Laura Mock MD, DMD Unavailable Pcp, Unknown Primary Care Provider UnavailLaura Ascencio MD, DMD Primary Car e Provider Pcp, Unknown Primary Care Provider UnavailNicole Arguello MD Primary Care Provide r Laura Mock MD, DMD Primary Car e Provider Encounter Details Date Type Department Care Team (Late st Contact Info) Description 08/19/2017 Ancillary Orders Virtual Department [address] [place] [address] Artie Meehan MD [address] [place] [address] [place] [address] Breast screening Social History Tobacco Use Types [...] 01/05/2025 11:00 AM EST Pre-Admission Testing [address] 2nd [place] [address] Irineo Ruff MD [address] [place] [address] [email or web address] 01/10/2025 Procedure Pass [facility] Endoscopy Department [address] [place] [address] 01/10/2025 7:30 AM EST Hospital Encounter [facility] Endoscopy Department [address] [place] [address] Irineo Ruff MD [address] [place] [address] [email or web address] 01/10/2025 7:30 AM EST - 01/10/2025 8:15 AM EST Surgery [facility] Endoscopy Department [address] [place] [address] Irineo Ruff MD [address] [place] [address] [place] [address] [email or web address] [email or web address] 01/31/2025 1:00 PM EST Office [place] [facility] [place] [address] [facility], 5th Floor, [address] [place] [address] Karena Betancur MD 55 [facility] [address] [place] [address] [email or web address] Scheduled Procedures Name Priority [...] lowers the sensitivity of mammography. POS - [id number] Narrative 09/12/2017 2:03 PM EDT Full-field digital [...] whichlowers the sensitivity of mammography. POS - [id number] Artie Meehan MD IMG MG EXAMS Final [...] documented as of this encounter Care Teams Performing Arts Road Manager Relationship Specialty Start Date End Date Artie Meehan MD [address] [place] [address] [place] [address] PCP - General Internal Medicine 07/09/17 10/25/17 Artie Meehan MD [address] [place] [address] [place] [address] PCP - General Internal Medicine 10/26/17 06/03/21 Laura Mock MD, DMD 1 [facility] [address] [place] [address] [email or web address] PCP - General Internal Medicine 06/04/21 11/11/23 Pcp, Unknown PCP - General 11/12/23 11/16/23 Laura Mock MD, DMD 1 [facility] [address] [place] [address] [email or web address] PCP - General Internal Medicine 11/17/23 12/28/23 Pcp, Unknown PCP - General 02/28/24 03/04/24 Nicole Newell MD [address] [place] [address] PCP - General 03/05/24 05/17/24 Laura Mock MD, DMD [address] [address] [email or web address] PCP - General Internal Medicine 05/18/24 Artie Meehan MD [address] [place] [address] [place] [address] Internal Medicine 10/26/17 04/23/22 Rina Swenson MD [address] [place] [address] [place] [address] Psychiatry 07/09/17 Laura Mock MD, DMD 1 [facility] [address] [place] [address] [email or web address] Partners Attributed Provider 09/01/21 07/03/23 Laura Mock MD, DMD 1 [facility] [address] [place] [address] [place] [address] [email or web address] Insurance Assigned Provider 05/31/23 03/01/24 Jakob Bob MD [address] [facility] [place] [address] [email or web address] Cardiology 08/22/23 Jose Cruz MD [address] [place] [address] [address] [place] [address] [email or web address] Cardiology 08/22/23 Laura Mock MD, DMD [address] [place] [address] [address] [place] [address] [email or web address] Partners Attributed Provider 09/01/21 07/03/23 [place] [facility] [phone]. Consulting Provider 08/22/23 [facility] Connect 12/24/23 03/11/24 Cyril Morales [address] [place] [address] Nurse Practitioner 02/27/24 documented as of this encounter Additional Source Comments The information contained in this document represents components of the legal health record. It is not the complete legal health record.[facility]
--- OUTSIDE RECORDS SUMMARY | 2024-11-29 16:04 | XMS_ITS | Encounter Summary ---
Author Organization [facility] Address Formerly [facility], [facility] [employer] [facility] [address] [place] [address] Phone Care Team Providers Care Angle Shear Operator Name Role Phone Artie Meehan MD Primary Care Provider Artie Meehan MD Unavailable [phone] Rina Swenson MD Unavailable Laura Mock MD, DMD Primary Car e Provider Laura Mock MD, DMD Unavailable Laura Mock MD, DMD Unavailable Jakob Bob MD Unavailable [phone] Jose Cruz MD Unavailable Laura Mock MD, DMD Unavailable Pcp, Unknown Primary Care Provider UnavailLaura Ascencio MD, DMD Primary Car e Provider Pcp, Unknown Primary Care Provider UnavailNicole Arguello MD Primary Care Provide r Laura Mock MD, DMD Primary Car e Provider Encounter Details Date Type Department Care Team (Late st Contact Info) Description 11/27/2018 Transcribe Orders [facility] [address] [place] [address] Artie Meehan MD [address] [place] [address] [place] [address] Social History Tobacco Use Types Packs/Day Years [...] Description 01/05/2025 11:00 AM EST Pre-Admission Testing [address] [address] Irineo Ruff MD [address] [place] [address] [email or web address] 01/10/2025 Procedure Pass [facility] Endoscopy Department [address] [place] [address] 01/10/2025 7:30 AM EST Hospital Encounter [facility] Endoscopy Department [address] [place] [address] Irineo Ruff MD [address] [place] [address] [email or web address] 01/10/2025 7:30 AM EST - 01/10/2025 8:15 AM EST Surgery [facility] Endoscopy Department [address] [place] [address] Irineo Ruff MD [address] [place] [address] [place] [address] [email or web address] COLONOSCOPY 01/31/2025 1:00 PM EST Office Visit [facility] Cardiovascular Medicine [address] [facility], 5th Floor, [address] [place] [address] Karena Betancur MD 55 [facility] [address] [place] [address] [email or web address] Scheduled Procedures Name Priority [...] documented as of this encounter Care Teams Angle Shear Operator Relationship Specialty Start Date End Date Artie Meehan MD [address] [place] [address] [place] [address] PCP - General Internal Medicine 10/26/17 06/03/21 Laura Mock MD, DMD [address] [address] [email or web address] PCP - General Internal Medicine 06/04/21 11/11/23 Pcp, Unknown PCP - General 11/12/23 11/16/23 Laura Mock MD, DMD [address] [address] [email or web address] PCP - General Internal Medicine 11/17/23 12/28/23 Pcp, Unknown PCP - General 02/28/24 03/04/24 [place] [address] [address] PCP - General 03/05/24 05/17/24 Laura Mock MD, DMD [address] [address] [email or web address] PCP - General Internal Medicine 05/18/24 Artie Meehan MD [address] [place] [address] [place] [address] Internal Medicine 10/26/17 04/23/22 iRna Swenson MD [address] [place] [address] Dr Dior [address] [place] [address] Psychiatry 07/09/17 Laura Mock MD, DMD [address] [address] [email or web address] Partners Attributed Provider 09/01/21 07/03/23 Laura Mock MD, DMD [address] [address] [email or web address] du Insurance Assigned Provider 05/31/23 03/01/24 Jakob Bob MD [address] [place], [place] [address] [place] [address] [email or web address] Cardiology 08/22/23 Jose Cruz MD [address] [place], [place] [address], [place] [address] Cardiology 08/22/23 Laura Mock MD, DMD 1 [facility] [address] [place] [address] [email or web address] Partners Attributed Provider 09/01/21 07/03/23 [facility] [phone]. Consulting Provider 08/22/23 [facility] 12/24/23 03/11/24 Cyril Morales [address] [place] [address] Nurse Practitioner 02/27/24 documented as of this encounter Additional Source Comments The information contained in this document represents components of the legal health record. It is not the complete legal health record.[facility]
--- OUTSIDE RECORDS SUMMARY | 2024-11-29 16:04 | XMS_ITS | Encounter Summary ---
Author Organization [facility] Address [facility] Keybroker [facility] [address] [place] [address] Phone Care Team Providers Care Payroll Services Analyst Name Role Phone Artie Meehan MD Primary Care Provider Artie Meehan MD Unavailable [phone] Rina Swenson MD Unavailable Laura Mock MD, DMD Primary Car e Provider Laura Mock MD, DMD Unavailable Laura Mock MD, DMD Unavailable Jakob Bob MD Unavailable [phone] Jose Cruz MD Unavailable Laura Mock MD, DMD Unavailable Pcp, Unknown Primary Care Provider UnavailLaura Ascencio MD, DMD Primary Car e Provider Pcp, Unknown Primary Care Provider UnavailNicole Arguello MD Primary Care Provide r Laura Mock MD, DMD Primary Car e Provider Encounter Details Date Type Department Care Team (Late st Contact Info) Description 12/24/2017 Procedure Pass [facility] [address] [place] [address] Social History Tobacco Use Types Packs/Day Years [...] Description 01/05/2025 11:00 AM EST Pre-Admission Testing [address] [address] Irineo Ruff MD [address] [place] [address] [email or web address] 01/10/2025 Procedure Pass [facility] Endoscopy Department [address] [place] [address] 01/10/2025 7:30 AM EST Hospital Encounter [facility] Endoscopy Department [address] [place] [address] Irineo Ruff MD [address] [place] [address] [email or web address] 01/10/2025 7:30 AM EST - 01/10/2025 8:15 AM EST Surgery [facility] Endoscopy Department [address] [place] [address] Irineo Ruff MD 75 [facility] [place] [address] [email or web address] [email or web address] 01/31/2025 1:00 PM EST Office [facility] 32 [facility], 5th Floor, [address] [place] [address] Karena Betancur MD 55 [facility] [address] [place] [address] [email or web address] Scheduled Procedures Name Priority [...] documented as of this encounter Care Teams Payroll Services Analyst Relationship Specialty Start Date End Date Artie Meehan MD [address] [place] [address] [place] [address] PCP - General Internal Medicine 10/26/17 06/03/21 Laura Mock MD, DMD 1 [facility] [address] [place] [address] [email or web address] PCP - General Internal Medicine 06/04/21 11/11/23 Pcp, Unknown PCP - General 11/12/23 11/16/23 Laura Mock MD, DMD 1 [facility] [address] [place] [address] [email or web address] PCP - General Internal Medicine 11/17/23 12/28/23 Pcp, Unknown PCP - General 02/28/24 03/04/24 [place] [address] [address] PCP - General 03/05/24 05/17/24 Laura Mock MD, DMD [address] [address] [email or web address] PCP - General Internal Medicine 05/18/24 Artie Meehan MD [address] [place] [address] Dr [address] [place] [address] Internal Medicine 10/26/17 04/23/22 Rina Swenson MD [address] [place] [address] [address] Psychiatry 07/09/17 Laura Mock MD, DMD [address] [address] [email or web address] Partners Attributed Provider 09/01/21 07/03/23 Laura Mock MD, DMD [address] [address] [email or web address] Insurance Assigned Provider 05/31/23 03/01/24 Jakob Bob MD [address] [place] [address] [place] [address] [email or web address] Cardiology 08/22/23 Jose Cruz MD 22 [facility] [address] [place] [address] Cardiology 08/22/23 Laura Mock MD, DMD [address] [place] [address] [address] [place] [address] [email or web address] Partners Attributed Provider 09/01/21 07/03/23 [place] [facility] [phone]. Consulting Provider 08/22/23 [facility] Connect 12/24/23 03/11/24 Cyril Morales [address] [place] [address] Nurse Practitioner 02/27/24 documented as of this encounter Additional Source Comments The information contained in this document represents components of the legal health record. It is not the complete legal health record.[facility]
--- OUTSIDE RECORDS SUMMARY | 2024-11-29 16:04 | XMS_ITS | Encounter Summary ---
Author Organization [facility] Address [facility] [address] [place] [address] Phone Care Team Providers Care Park Aide Name Role Phone Artie Meehan MD Primary Care Provider Artie Meeahn MD Unavailable [phone] Rina Swenson MD Unavailable [phone] Laura Mock MD, DMD Primary Car e Provider Laura Mock MD, DMD Unavailable Laura Mock MD, DMD Unavailable Jakob Bob MD Unavailable [phone] Jose Cruz MD Unavailable Laura Mock MD, DMD Unavailable Pcp, Unknown Primary Care Provider UnavailLaura Ascnecio MD, DMD Primary Car e Provider Pcp, [...] Expiration Date Visits Re quested Visits Authorized [id number] Closed 05/15/2018 05/15/2019 1 1 Encounter Details Date Type Department Care Team (Late Contact Info) Description 05/15/2018 Ancillary Orders For Login Purposes Only [address] [facility] 2 [address] [place] [address] Artie Meehan MD [address] [place] [address] [place] [address] Pancreatic cyst Social History Tobacco Use Types [...] 11:00 AM EST [facility]-Admission Testing [facility] [address] [address] Irineo Ruff MD 75 [facility] [place] [address] [email or web address] 01/10/2025 Procedure Pass [facility] Endoscopy Department [address] [place] [address] 01/10/2025 7:30 AM EST Hospital Encounter [facility] Endoscopy Department [address] [place] [address] Irineo Ruff MD 75 [facility] [place] [address] [email or web address] 01/10/2025 7:30 AM EST - 01/10/2025 8:15 AM EST Surgery [facility] Endoscopy Department [address] [place] [address] Irineo Ruff MD 75 [facility] [place] [address] [email or web address] [email or web address] 01/31/2025 1:00 PM EST Office Visit [facility] Cardiovascular Medicine 32 [facility], 5th Floor, [address] [place] [address] Karena Betancur MD [address] [address] [email or web address] Scheduled Procedures Name Priority [...] renal cysts. Right hepatic lobe cyst. POS [id number] Edited by: Abbie Barnett on 05/22/2018 12:52 [...] renal cysts. Right hepatic lobe cyst. POS [id number] Edited by: Abbie Barnett on 05/22/2018 12:52 [...] documented as of this encounter Care Teams Park Aide Relationship Specialty Start Date End Date Artie Meehan MD [address] [place] [address] [place] [address] PCP - General Internal Medicine 10/26/17 06/03/21 Laura Mock MD, DMD [address] [address] [email or web address] PCP - General Internal Medicine 06/04/21 11/11/23 Pcp, Unknown PCP - General 11/12/23 11/16/23 Laura Mock MD, DMD [address] [address] [email or web address] PCP - General Internal Medicine 11/17/23 12/28/23 Pcp, Unknown PCP - General 02/28/24 03/04/24 [place] [address] [address] PCP - General 03/05/24 05/17/24 Laura Mock MD, DMD [address] [address] [email or web address] PCP - General Internal Medicine 05/18/24 Artie Meehan MD [address] [place] [address] Dr Dior [facility] [place] [address] Internal Medicine 10/26/17 04/23/22 Rina Swenson MD [address] [place] [address] Dr Dior [facility] [place] [address] Psychiatry 07/09/17 Laura Mock MD, DMD [address] [address] [email or web address] Partners Attributed Provider 09/01/21 07/03/23 Laura Mock MD, DMD [address] [address] [email or web address] Insurance Assigned Provider 05/31/23 03/01/24 Jakob Bob MD [address] [place], [place] [address] [place] [address] [email or web address] Cardiology 08/22/23 Jose Cruz MD [address] [place] [address], [facility] [address] [place] [address] Cardiology 08/22/23 Laura Mock MD, DMD 1 [place] [address] [email or web address] Attributed Provider 09/01/21 07/03/23 [facility] [phone]. Consulting Provider 08/22/23 [facility] Connect 12/24/23 03/11/24 Cyril Morales [facility] [place] [address] Nurse Practitioner 02/27/24 documented as of this encounter Additional Source Comments The information contained in this document represents components of the legal health record. It is not the complete legal health record.[facility]
--- OUTSIDE RECORDS SUMMARY | 2024-11-29 16:04 | XMS_ITS | Encounter Summary ---
Author Organization [facility] Address [facility] [address] [place] [address] Phone Care Team Providers Care Pipe Caulker Name Role Phone Artie Meehan MD Primary Care Provider Artie Meehan MD Unavailable [phone] Rina Swenson MD Unavailable Laura Mock MD, DMD Primary Car e Provider Laura Mock MD, DMD Unavailable Laura Mock MD, DMD Unavailable Jakob Bob MD Unavailable [phone] Jose Cruz MD Unavailable Laura Mock MD, DMD Unavailable Pcp, Unknown Primary Care Provider UnavailLaura Ascencio MD, DMD Primary Car e Provider Pcp, Unknown Primary Care Provider UnavailNicole Arguello MD Primary Care Provide r Laura Mock MD, DMD Primary Car e Provider Encounter Details Date Type Department Care Team (Late st Contact Info) Description 05/23/2018 Transcribe Orders [facility] [address] [place] [address] Artie Meehan MD [address] [place] [address] [place] [address] 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 Social History [...] Upcoming Encounters Date Type Department Care Team ([facility] Contact Info) Description 01/05/2025 11:00 AM EST Pre-Admission Testing [address] 2nd [place] [address] Irineo Ruff MD [address] [place] [address] [email or web address] 01/10/2025 Procedure Pass [facility] Endoscopy Department [address] [place] [address] 01/10/2025 7:30 AM EST Hospital Encounter [facility] Endoscopy Department [address] [place] [address] Irineo Ruff MD [address] [place] [address] [email or web address] 01/10/2025 7:30 AM EST - 01/10/2025 8:15 AM EST Surgery [facility] Endoscopy Department [address] [place] [address] Irineo Ruff MD [address] [place] [address] [place] [address] [email or web address] COLONOSCOPY 01/31/2025 1:00 PM EST Office Visit [facility] Cardiovascular Medicine 32 [facility], 5th Floor, [address] [place] [address] Karena Betancur MD 55 [facility] [address] [place] [address] 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 documented in this encounter Results * (ABNORMAL) PT-INR (05/23/2018 11:36 AM EDT) PT 14.8(H) 10.2 - 12.9 sec [facility] INR 1.3(H) 0.9 - 1.1 [facility] Comment:Therapeutic range fo r oral Vitamin K antagonists: 2.0-3.5 Blood 05/23/2018 11:3 6 AM EDT 05/23/2018 11:39 AM EDT Artie Meehan MD LAB BLOOD ORDERABLES Neela l Result Performing Organization Address City/State/[facility] Co de Phone Number [address] [address] documented in this encounter Visit Diagnoses Diagnosis 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 Abnormal colonoscopy documented in this encounter Additional Health Concerns Infection Onset Date Last Indicated Resolved Time CoV-Presumed 03/23/2022 03/23/2022 04/13/2022 1:23 AM EST CoV-Risk 11/12/2023 11/12/2023 11/12/2023 5:12 PM EDT COVID-19 11/12/2023 11/12/2023 12/03/2023 1:21 AM EDT documented as of this encounter Care Teams Pipe Caulker Relationship Specialty Start Date End Date Artie Meehan MD [address] [place] [address] [place] [address] PCP - General Internal Medicine 10/26/17 06/03/21 Laura Mock MD, DMD 1 [facility] [address] [place] [address] [email or web address] PCP - General Internal Medicine 06/04/21 11/11/23 Pcp, Unknown PCP - General 11/12/23 11/16/23 Laura Mock MD, DMD [address] [address] [email or web address] PCP - General Internal Medicine 11/17/23 12/28/23 Pcp, Unknown PCP - General 02/28/24 03/04/24 Nicole Newell MD [address] [place] [address] PCP - General 03/05/24 05/17/24 Laura Mock MD, DMD [address] [address] [email or web address] PCP - General Internal Medicine 05/18/24 Artie Meehan MD [address] [place] [address] [place] [address] Internal Medicine 10/26/17 04/23/22 Rina Swenson MD [address] [place] [address] [place] [address] Psychiatry 07/09/17 Laura Mock MD, DMD [address] [address] [email or web address] Attributed Provider 09/01/21 07/03/23 Laura Mock MD, DMD [address] [address] [email or web address] Insurance Assigned Provider 05/31/23 03/01/24 Jakob Bob MD [address] [place] [address] [email or web address] Cardiology 08/22/23 Jose Cruz MD [address] [place] [address] Cardiology 08/22/23 Laura Mock MD, DMD [address] [address] [email or web address] Attributed Provider 09/01/21 07/03/23 [place] [facility] [phone]. Consulting Provider 08/22/23 [facility] Connect 12/24/23 03/11/24 Cyril Morales [address] [place] [address] Nurse Practitioner 02/27/24 documented as of this encounter Additional Source Comments The information contained in this document represents components of the legal health record. It is not the complete legal health record.[facility]
--- OUTSIDE RECORDS SUMMARY | 2024-11-29 16:04 | XMS_ITS | Encounter Summary ---
Author Organization [facility] Address [facility] [address] [place] [address] Phone Care Team Providers Care Terrazzo Laborer Name Role Phone Artie Meehan MD Primary Care Provider Artie Meehan MD Unavailable [phone] Rina Swenson MD Unavailable [phone] Laura Mock MD, DMD Primary Car e [...] Daryn Moyer MD Phone: tel: fax: mailto:[email or web address] Referral ID Status Reason Start Date Expiration Date Visits Re quested Visits Authorized [id number] Closed 12/24/2017 12/24/2018 1 1 Encounter Details Date Type Department Care Team ([facility] Contact Info) Description 12/24/2017 Ancillary Orders [facility] Urology [address] [place], [place] [address]23 [place] [address] Daryn Moyer MD [address] [place] [address] [address] [place] [address] [email or web address] Gross hematuria Social History Tobacco Use [...] Care Team ([facility] Contact Info) Description 01/05/2025 11:00 AM EST Pre-Admission Testing [facility] [address] [facility] 2nd [place] [address] Irineo Ruff MD [address] [place] [address] [place] [address] [email or web address] 01/10/2025 Procedure Pass [facility] Endoscopy Department [address] [place] [address] 01/10/2025 7:30 AM EST Hospital Encounter [facility] Endoscopy Department [address] [place] [address] Irineo Ruff MD 75 [facility] [place] [address] [email or web address] 01/10/2025 7:30 AM EST - 01/10/2025 8:15 AM EST Surgery [facility] Endoscopy Department [address] [place] [address] rIineo Ruff MD [address] [facility] [place] [address] [email or web address] COLONOSCOPY 01/31/2025 1:00 PM EST Office Visit [facility] Cardiovascular Medicine 32 [facility], 5th Floor, [address] [place] [address] Karena Betancur MD [address] [address] [email or web address] Scheduled Procedures Name Priority Associated [...] documented as of this encounter Care Teams Terrazzo Laborer Relationship Specialty Start Date End Date Artie Meehan MD [address] [place] [address] [place] [address] PCP - General Internal Medicine 10/26/17 06/03/21 Laura Mock MD, DMD 1 [facility] [address] [place] [address] [email or web address] PCP - General Internal Medicine 06/04/21 11/11/23 Pcp, Unknown PCP - General 11/12/23 11/16/23 Laura Mock MD, DMD 1 [facility] [address] [place] [address] [email or web address] PCP - General Internal Medicine 11/17/23 12/28/23 Pcp, Unknown PCP - General 02/28/24 03/04/24 Nicole Newell MD [address] [place] [address] PCP - General 03/05/24 05/17/24 Laura Mock MD, DMD [address] [address] [email or web address] PCP - General Internal Medicine 05/18/24 Artie Meehan MD [address] [place] [address] [place] [address] Internal Medicine 10/26/17 04/23/22 Rina Swenson MD [address] [place] [address] [place] [address] Psychiatry 07/09/17 Laura Mock MD, DMD [address] [address] [email or web address] Attributed Provider 09/01/21 07/03/23 Laura Mock MD, DMD [address] [address] [email or web address] Insurance Assigned Provider 05/31/23 03/01/24 Jakob Bob MD [address] [place] [address] [email or web address] Cardiology 08/22/23 Jose Cruz MD [address] [place] [address] [email or web address] Cardiology 08/22/23 Laura Mock MD, DMD [address] [address] [email or web address] Attributed Provider 09/01/21 07/03/23 [facility] [phone]. Consulting Provider 08/22/23 [facility] Connect 12/24/23 03/11/24 Cyril Morales [address] [place] [address] Nurse Practitioner 02/27/24 documented as of this encounter Additional Source Comments The information contained in this document represents components of the legal health record. It is not the complete legal health record.[facility]
--- OUTSIDE RECORDS SUMMARY | 2024-11-29 16:04 | XMS_ITS | Encounter Summary ---
Author Organization [facility] Address [facility] [address] [place] [address] Phone Care Team Providers Care Hr Consultant Name Role Phone Artie Meehan MD Primary Care Provider Artie Meehan MD Unavailable [phone] Rina Swenson MD Unavailable [phone] Laura Mock MD, DMD Primary Car e [...] Info) Description 12/11/2018 Ancillary Orders Virtual Department [address] [place] [address] Artie Meehan MD [address] [place] [address] [place] [address] Breast screening Social History Tobacco Use Types [...] 01/05/2025 11:00 AM EST Pre-Admission Testing [address] [address] Irineo Ruff MD [address] [place] [address] [email or web address] 01/10/2025 Procedure Pass [facility] Endoscopy Department [address] [place] [address] 01/10/2025 7:30 AM EST Hospital Encounter [facility] Endoscopy Department [address] [place] [address] Irineo Ruff MD [address] [place] [address] [email or web address] 01/10/2025 7:30 AM EST - 01/10/2025 8:15 AM EST Surgery [facility] Endoscopy Department [address] [place] [address] Irineo Ruff MD [address] [place] [address] [place] [address] [email or web address] COLONOSCOPY 01/31/2025 1:00 PM EST Office Visit [facility] Cardiovascular Medicine 32 [facility], 5th Floor, [address] [place] [address] Karena Betancur MD 55 [facility] [address] [place] [address] [email or web address] Scheduled Procedures [...] lowers the sensitivity of mammography. POS - [id number] Narrative 01/05/2019 1:52 PM EST Full-field digital [...] whichlowers the sensitivity of mammography. POS - [id number] Artie Meehan MD IMG MG EXAMS Final [...] documented as of this encounter Care Teams Hr Consultant Relationship Specialty Start Date End Date Artie Meehan MD [address] [place] [address] [place] [address] PCP - General Internal Medicine 10/26/17 06/03/21 Laura Mock MD, DMD [address] [address] [email or web address] PCP - General Internal Medicine 06/04/21 11/11/23 Pcp, Unknown PCP - General 11/12/23 11/16/23 Laura Mock MD, DMD [address] [address] [email or web address] PCP - General Internal Medicine 11/17/23 12/28/23 Pcp, Unknown PCP - General 02/28/24 03/04/24 [place] [address] [address] PCP - General 03/05/24 05/17/24 Laura Mock MD, DMD [address] [address] [email or web address] PCP - General Internal Medicine 05/18/24 Artie Meehan MD [address] [place] [address] Dr [address] [place] [address] Internal Medicine 10/26/17 04/23/22 Rina wSenson MD [address] [place] [address] Dr [address] [place] [address] Psychiatry 07/09/17 Laura Mock MD, DMD [address] [address] [email or web address] Partners Attributed Provider 09/01/21 07/03/23 Laura Mock MD, DMD [address] [address] [email or web address] Insurance Assigned Provider 05/31/23 03/01/24 Jakob Bob MD [address] [place] [address] [place] [address] [email or web address] Cardiology 08/22/23 Jose Cruz MD 22 [facility], [address] [place] [address] [email or web address] Cardiology 08/22/23 Laura Mock MD, DMD [address] [place] [address] [address] [place] [address] [email or web address] Attributed Provider 09/01/21 07/03/23 [place] [facility] [phone]. Consulting Provider 08/22/23 [facility] Connect 12/24/23 03/11/24 Cyril Morales [address] [place] [address] Nurse Practitioner 02/27/24 documented as of this encounter Additional Source Comments The information contained in this document represents components of the legal health record. It is not the complete legal health record.[facility]
--- OUTSIDE RECORDS SUMMARY | 2024-11-29 16:04 | XMS_ITS | Encounter Summary ---
Author Organization [facility] Address Critical access hospital [employer] [facility] [address] [place] [address] Phone Care Team Providers Care Public Policy Associate Name Role Phone Artie Meehan MD Primary Care Provider Artie Meehan MD Unavailable [phone] Rina Swenson MD Unavailable [phone] Laura Mock MD, DMD Primary Car e [...] st Contact Info) Description 05/15/2018 Procedure Pass [facility], [address] [address] Social History Tobacco Use Types Packs/Day Years [...] Description 01/05/2025 11:00 AM EST Pre-Admission Testing [address]nd [place] [address] Irineo Ruff MD [address] [place] [address] [place] [address] [email or web address] 01/10/2025 Procedure Pass [facility] Endoscopy Department [address] [place] [address] 01/10/2025 7:30 AM EST Hospital Encounter [facility] Endoscopy Department [address] [place] [address] Irineo Ruff MD [address] [place] [address] [email or web address] 01/10/2025 7:30 AM EST - 01/10/2025 8:15 AM EST Surgery [facility] Endoscopy Department [address] [place] [address] Irineo Ruff MD [address] [place] [address] [email or web address] COLONOSCOPY 01/31/2025 1:00 PM EST Office Visit [facility] Cardiovascular Medicine [address] [place] [address], 5th Floor, [address] [place] [address] Karena Betancur MD [address] [place] [address] [email or web address] Scheduled Procedures Name Priority Associated Diagnoses Date/Ti [...] as of this encounter Care Teams Public Policy Associate Relationship Specialty Start Date End Date Artie Meehan MD [address] [place] [address] PCP - General Internal Medicine 10/26/17 06/03/21 Laura Mock MD, DMD [address] [address] [email or web address] PCP - General Internal Medicine 06/04/21 11/11/23 Pcp, Unknown PCP - General 11/12/23 11/16/23 Laura Mock MD, DMD [address] [address] [email or web address] PCP - General Internal Medicine 11/17/23 12/28/23 Pcp, Unknown PCP - General 02/28/24 03/04/24 Nicole Newell MD [address] [place] [address] PCP - General 03/05/24 05/17/24 Laura Mock MD, DMD [address] [address] [email or web address] du PCP - General Internal Medicine 05/18/24 Artie Meehan MD [address] [place] [address] [place] [address] Internal Medicine 10/26/17 04/23/22 Rina Swenson MD [address] [place] [address] Dr [address] [place] [address] Psychiatry 07/09/17 Laura Mock MD, DMD [address] [address] [email or web address] du Partners Attributed Provider 09/01/21 07/03/23 Laura Mock MD, DMD [address] [address] [email or web address] du Insurance Assigned Provider 05/31/23 03/01/24 Jakob Bob MD [address] [place], [place] [address] [place] [address] [email or web address] Cardiology 08/22/23 Jose Cruz MD [address] [place] [address], [facility] [address] [place] [address] Cardiology 08/22/23 Laura Mock MD, DMD 1 [facility] [address] [place] [address] [email or web address] Partners Attributed Provider 09/01/21 07/03/23 [facility] [phone]. Consulting Provider 08/22/23 [facility] Connect 12/24/23 03/11/24 Cyril Morales [address] [place] [address] Nurse Practitioner 02/27/24 documented as of this encounter Additional Source Comments The information contained in this document represents components of the legal health record. It is not the complete legal health record.[facility]
--- OUTSIDE RECORDS SUMMARY | 2024-11-29 16:04 | XMS_ITS | Encounter Summary ---
Author Organization [facility] Address [facility] Site [facility] [address] [place] [address] Phone Care Team Providers Care Bucket Pusher Name Role Phone Artie Meehan MD Primary Care Provider Artie Meehan MD Unavailable [phone] Rina Swenson MD Unavailable Laura Mock MD, DMD Primary Car e Provider Laura Mock MD, DMD Unavailable Laura Mock MD, DMD Unavailable Jakob Bob MD Unavailable [phone] Jose Cruz MD Unavailable Laura Mock MD, DMD Unavailable Pcp, Unknown Primary Care Provider UnavailLuara Ascencio MD, DMD Primary Car e Provider Pcp, Unknown Primary Care Provider UnavailNicole Arguello MD Primary Care Provide r Laura Mock MD, DMD Primary Car e Provider Encounter Details Date Type Department Care Team (Late st Contact Info) Description 12/19/2017 Procedure Pass [facility] [address] [place] [address] Social History Tobacco Use Types Packs/Day Years [...] 01/05/2025 11:00 AM EST Pre-Admission Testing [address] [address] Irineo Ruff MD [address] [place] [address] [email or web address] 01/10/2025 Procedure Pass [facility] Endoscopy Department [address] [place] [address] 01/10/2025 7:30 AM EST Hospital Encounter [facility] Endoscopy Department [address] [place] [address] Irineo Ruff MD [address] [place] [address] [email or web address] 01/10/2025 7:30 AM EST - 01/10/2025 8:15 AM EST Surgery [facility] Endoscopy Department [address] [place] [address] Irineo Ruff MD 75 [facility] [place] [address] [email or web address] COLONOSCOPY 01/31/2025 1:00 PM EST Office Visit [facility] Cardiovascular Medicine 32 [facility], 5th Floor, [address] [place] [address] Karena Betancur MD 55 [facility] [address] [place] [address] [email or web address] Scheduled Procedures Name Priority Associated Diagnoses [...] documented as of this encounter Care Teams Bucket Pusher Relationship Specialty Start Date End Date Artie Meehan MD [address] [place] [address] [place] [address] PCP - General Internal Medicine 10/26/17 06/03/21 Laura Mock MD, DMD 1 [facility] [address] [place] [address] [email or web address] so PCP - General Internal Medicine 06/04/21 11/11/23 Pcp, Unknown PCP - General 11/12/23 11/16/23 Laura Mock MD, DMD 1 [facility] [address] [place] [address] [email or web address] du PCP - General Internal Medicine 11/17/23 12/28/23 Pcp, Unknown PCP - General 02/28/24 03/04/24 [place] [address] [address] PCP - General 03/05/24 05/17/24 Laura Mock MD, DMD 1 [facility] [address] [place] [address] [email or web address] du PCP - General Internal Medicine 05/18/24 Artie Meehan MD [address] [place] [address] Dr [address] [place] [address] Internal Medicine 10/26/17 04/23/22 Rina Swenson MD [address] [place] [address] Dr Dior [address] [place] [address] Psychiatry 07/09/17 Laura Mock MD, DMD [address] [address] [email or web address] Partners Attributed Provider 09/01/21 07/03/23 Laura Mock MD, DMD [address] [address] [email or web address] du Insurance Assigned Provider 05/31/23 03/01/24 Jakob Bob MD [address] [place] [address] [place] [address] [email or web address] Cardiology 08/22/23 Jose Cruz MD 22 [facility], [address] [place] [address] [email or web address] Cardiology 08/22/23 Laura Mock MD, DMD [address] [place] [address] [address] [place] [address] [email or web address] du Partners Attributed Provider 09/01/21 07/03/23 [place] [facility] [phone]. Consulting Provider 08/22/23 CAROLANN GREWAL Connect 12/24/23 03/11/24 Cyril Morales [facility] [place] [address] Nurse Practitioner 02/27/24 documented as of this encounter Additional Source Comments The information contained in this document represents components of the legal health record. It is not the complete legal health record.[facility]
--- OUTSIDE RECORDS SUMMARY | 2024-11-29 16:04 | XMS_ITS | Encounter Summary ---
Author Organization [facility] Address [facility] Client Outlook [facility] [address] [place] [address] Phone Care Team Providers Care Higher Level Teaching Assistant Name Role Phone Artie Meehan MD Primary Care Provider Artie Meehan MD Unavailable [phone] Rina Swenson MD Unavailable Laura Mock MD, DMD Primary Car e Provider Laura Mock MD, DMD Unavailable Laura Mock MD, DMD Unavailable Jakob Bob MD Unavailable [phone] Jose Cruz MD Unavailable [phone] Laura Mock MD, DMD Unavailable Pcp, Unknown Primary Care Provider UnavailLaura Ascencio MD, DMD Primary Car e Provider Pcp, Unknown Primary Care Provider UnavailNicole Arguello MD Primary Care Provide r Laura Mock MD, DMD Primary Car e Provider Encounter Details Date Type Department Care Team (Late st Contact Info) Description 05/20/2018 Transcribe Orders [facility] 30 [place] [address] Artie Meehan MD [address] [place] [address] [place] [address] 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) [...] Description 01/05/2025 11:00 AM EST Pre-Admission Testing [facility] [address] [facility] 2nd [place] [address] Irineo Ruff MD [address] [place] [address] [email or web address] 01/10/2025 Procedure Pass [facility] Endoscopy Department [address] [place] [address] 01/10/2025 7:30 AM EST Hospital Encounter [facility] Endoscopy Department [address] [place] [address] Irineo Ruff MD [address] [place] [address] [email or web address] 01/10/2025 7:30 AM EST - 01/10/2025 8:15 AM EST Surgery [facility] Endoscopy Department [address] [place] [address] Irineo Ruff MD [address] [place] [address] [place] [address] [email or web address] COLONOSCOPY 01/31/2025 1:00 PM EST Office Visit [facility] Cardiovascular Medicine 32 [facility], 5th Floor, [address] [place] [address] Karena Betancur MD 55 [facility] [address] [place] [address] [email or web address] Scheduled Procedures Name Priority [...] documented as of this encounter Care Teams Higher Level Teaching Assistant Relationship Specialty Start Date End Date Artie Meehan MD [address] [place] [address] [place] [address] PCP - General Internal Medicine 10/26/17 06/03/21 Laura Mock MD, DMD [address] [address] [email or web address] PCP - General Internal Medicine 06/04/21 11/11/23 Pcp, Unknown PCP - General 11/12/23 11/16/23 Laura Mock MD, DMD 1 [facility] [address] [place] [address] [email or web address] PCP - General Internal Medicine 11/17/23 12/28/23 Pcp, Unknown PCP - General 02/28/24 03/04/24 [place] [address] [address] PCP - General 03/05/24 05/17/24 Laura Mock MD, DMD [address] [address] [email or web address] PCP - General Internal Medicine 05/18/24 Artie Meehan MD [address] [place] [address] Dr Dior [facility] [place] [address] Internal Medicine 10/26/17 04/23/22 Rina Swenson MD [address] [place] [address] Dr [address] [place] [address] Psychiatry 07/09/17 Laura Mock MD, DMD [address] [address] [email or web address] Partners Attributed Provider 09/01/21 07/03/23 Laura Mock MD, DMD [address] [address] [email or web address] du Insurance Assigned Provider 05/31/23 03/01/24 Jakob Bob MD 75 [facility] [address] [place] [address] [email or web address] Cardiology 08/22/23 Jose Cruz MD 22 [facility], [address] [place] [address] [email or web address] Cardiology 08/22/23 Laura Mock MD, DMD 1 [facility] [address] [place] [address] [email or web address] du Partners Attributed Provider 09/01/21 07/03/23 [place] [facility] [phone]. Consulting Provider 08/22/23 [facility] Connect 12/24/23 03/11/24 Cyril Morales [facility] [place] [address] Nurse Practitioner 02/27/24 documented as of this encounter Additional Source Comments The information contained in this document represents components of the legal health record. It is not the complete legal health record.[facility]
--- OUTSIDE RECORDS SUMMARY | 2024-11-29 16:04 | XMS_ITS | Encounter Summary ---
Author Organization [facility] Address Critical access hospital [place] [address] [address] Phone Care Team Providers Care Silo Erector Name Role Phone Artie Meehan MD Primary Care Provider Artie Meehan MD Unavailable [phone] Rina Swenson MD Unavailable Laura Mock MD, [...] sequela Artie Meehan MD Phone: tel: fax: [facility] 30 [place] [address] Phone: tel: Referral ID Status Reason Start Date Expiration Date Visits Re quested Visits Authorized [id number] Closed 11/27/2018 02/23/2019 99 99 Encounter Details Date Type Department Care Team (Latest Contact Info) Description 11/27/2018 Transcribe Orders [facility] [address] [place] [address] Artie Meehan MD [address] [place] [address] Left wrist fracture, sequela (Primary Dx) Social [...] Testing [facility] 45 [facility] 2nd [place] [address] Irineo Ruff MD [address] [place] [address] [place] [address] [email or web address] 01/10/2025 Procedure Pass [facility] Endoscopy Department [address] [place] [address] 01/10/2025 7:30 AM EST Hospital Encounter [facility] Endoscopy Department 75 [place] [address] Irineo Ruff MD 75 [facility] [place] [address] [email or web address] 01/10/2025 7:30 AM EST - 01/10/2025 8:15 AM EST Surgery [facility] Endoscopy Department [address] [place] [address] Irineo Ruff MD 75 [place] [address] [email or web address] COLONOSCOPY 01/31/2025 1:00 PM EST Office Visit [facility] Cardiovascular Medicine 32 [facility], 5th Floor, [address] [place] [address] Karena Betancur MD [address] [address] [email or web address] Scheduled Procedures Name Priority Associated Diagnoses Date/Ti me COLONOSCOPY Abnormal colonoscopy 01/10/2025 7:30 AM EST documented as of this encounter Procedures Procedure Name Priority Date/Time Associated Diagnosis Comments AMB REFERRAL TO [facility] OCCUPATIONAL THERAPY Routine 12/08/2018 4:10 PM EDT Left wrist fracture, sequela documented in this encounter Results * Ambulatory referral to [facility] Occupational Therapy (12/08/2018 4:10 PM EDT) Artie Meehan MD AMB [facility] REFERRALS Final R esult documented in this encounter Visit Diagnoses Diagnosis Left wrist fracture, sequela- Primary Abnormal colonoscopy documented in this encounter Additional Health Concerns Infection Onset Date Last Indicated Resolved Time CoV-Presumed 03/23/2022 03/23/2022 04/13/2022 1:23 AM EST CoV-Risk 11/12/2023 11/12/2023 11/12/2023 5:12 PM EDT COVID-19 11/12/2023 11/12/2023 12/03/2023 1:21 AM EDT documented as of this encounter Care Teams Silo Erector Relationship Specialty Start Date End Date Artie Meehan MD [address] [place] [address] [place] [address] PCP - General Internal Medicine 10/26/17 06/03/21 Laura Mock MD, DMD [address] [address] [email or web address] du PCP - General Internal Medicine 06/04/21 11/11/23 Pcp, Unknown PCP - General 11/12/23 11/16/23 Laura Mock MD, DMD [address] [address] [email or web address] du PCP - General Internal Medicine 11/17/23 12/28/23 Pcp, Unknown PCP - General 02/28/24 03/04/24 Nicole Newell MD [address] [place] [address] PCP - General 03/05/24 05/17/24 Laura Mock MD, DMD [address] [address] [email or web address] du PCP - General Internal Medicine 05/18/24 Artie Meehan MD [address] [place] [address] [place] [address] Internal Medicine 10/26/17 04/23/22 Rina Swenson MD [address] [place] [address] [place] [address] Psychiatry 07/09/17 Laura Mock MD, DMD [address] [address] [email or web address] Partners Attributed Provider 09/01/21 07/03/23 Laura Mock MD, DMD [address] [address] [email or web address] du Insurance Assigned Provider 05/31/23 03/01/24 Jakob Bob MD [address] [place] [address] [email or web address] Cardiology 08/22/23 Jose Cruz MD [address] [place] [address] [email or web address] Cardiology 08/22/23 Laura Mock MD, DMD [address] [address] [email or web address] du Partners Attributed Provider 09/01/21 07/03/23 [place] [facility] [phone]. Consulting Provider 08/22/23 [facility] Connect 12/24/23 03/11/24 Cyril Morales [address] [place] [address] Nurse Practitioner 02/27/24 documented as of this encounter Additional Source Comments The information contained in this document represents components of the legal health record. It is not the complete legal health record.[facility]
--- OUTSIDE RECORDS SUMMARY | 2024-11-29 16:05 | XMS_ITS | Encounter Summary ---
Author Organization [facility] Address [facility] Clean [employer] [facility] [address] [place] [address] Phone Care Team Providers Care Metal Furniture Assembler Name Role Phone Artie Meehan MD Primary Care Provider Artie Meehan MD Unavailable [phone] Rina Swenson MD Unavailable Laura Mock MD, [...] Interpretation) Daryn Moyer MD Phone: tel: fax: [email or web address] Referral ID Status Reason Start Date Expiration Date Visits Re quested Visits Authorized [id number] Closed 01/06/2018 01/06/2019 1 1 Encounter Details Date Type Department Care Team (Late st Contact Info) Description 01/06/2018 Transcribe Orders [facility] [address] [place] [address] Shira Mann [address] [place] [address] [email or web address] Social History Tobacco Use Types Packs/Day [...] Description 01/05/2025 11:00 AM EST [facility] [place] [facility] 2nd [place] [address] Irineo Ruff MD 75 [facility] [place] [address] [email or web address] 01/10/2025 Procedure Pass [facility] Endoscopy Department [address] [place] [address] 01/10/2025 7:30 AM EST Hospital Encounter [facility] Endoscopy Department [address] [place] [address] Irineo Ruff MD 75 [facility] [place] [address] [email or web address] 01/10/2025 7:30 AM EST - 01/10/2025 8:15 AM EST Surgery [facility] Endoscopy Department [address] [place] [address] Irineo Ruff MD [address] [place] [address] [place] [address] [email or web address] 01/31/2025 1:00 PM EST Office Visit [facility] Cardiovascular Medicine 32 [facility], 5th Floor, [address] [place] [address] Karena Betancur MD [address] [address] [email or web address] Scheduled Procedures Name Priority Associated Diagnoses Date/Ti me COLONOSCOPY Abnormal colonoscopy 01/10/2025 7:30 AM EST documented as of this encounter Results * MRI Lower Extremity Outside (No Interpretation) (01/06/2018 11:46 AM EST) Narrative ALYSHA_[facility] - 01/06/2018 11:46 AM EST This [...] documented as of this encounter Care Teams Metal Furniture Assembler Relationship Specialty Start Date End Date Artie Meehan MD [address] [place] [address] [place] [address] PCP - General Internal Medicine 10/26/17 06/03/21 Laura Mock MD, DMD 1 [facility] [address] [place] [address] [email or web address] du PCP - General Internal Medicine 06/04/21 11/11/23 Pcp, Unknown PCP - General 11/12/23 11/16/23 Laura Mock MD, DMD [address] [address] [email or web address] du PCP - General Internal Medicine 11/17/23 12/28/23 Pcp, Unknown PCP - General 02/28/24 03/04/24 Nicole Newell MD [address] [place] [address] PCP - General 03/05/24 05/17/24 Laura Mock MD, DMD [address] [address] [email or web address] du PCP - General Internal Medicine 05/18/24 Artie Meehan MD [address] [place] [address] [place] [address] Internal Medicine 10/26/17 04/23/22 Rina Swenson MD [address] [place] [address] [place] [address] Psychiatry 5/16/18 Laura Mock MD, DMD [address] [address] [email or web address] Partners Attributed Provider 09/01/21 07/03/23 Laura Mock MD, DMD [address] [address] [email or web address] Insurance Assigned Provider 05/31/23 03/01/24 Jakob Bob MD [address] [place] [address] [email or web address] Cardiology 08/22/23 Jose Cruz MD [address] [place] [address] [email or web address] Cardiology 08/22/23 Laura Mock MD, DMD [address] [address] [email or web address] Partners Attributed Provider 09/01/21 07/03/23 [place] [facility] [phone]. Consulting Provider 08/22/23 [facility] Connect 12/24/23 03/11/24 Cyril Morales [address] [place] [address] Nurse Practitioner 02/27/24 documented as of this encounter Additional Source Comments The information contained in this document represents components of the legal health record. It is not the complete legal health record.[facility]
--- OUTSIDE RECORDS SUMMARY | 2024-11-29 16:05 | XMS_ITS | Encounter Summary ---
Author Organization [facility] Address [facility] [address] [place] [address] Phone Care Team Providers Care Team Coordinator Name Role Phone Artie Meehan MD Primary Care Provider Artie Meehan MD Unavailable [phone] Rina Swenson MD Unavailable Laura Mock MD, DMD Primary Car e Provider Laura Mock MD, DMD Unavailable Laura Mock MD, DMD Unavailable Jakob Bob MD Unavailable [phone] Jose Cruz MD Unavailable [phone] Laura Mock MD, DMD Unavailable Pcp, Unknown Primary Care Provider UnavailLaura Ascencio MD, DMD Primary Car e Provider Pcp, Unknown Primary Care Provider UnavailNicole Arguello MD Primary Care Provide r Laura Mock MD, DMD Primary Car e Provider Encounter Details Date Type Department Care Team (Late st Contact Info) Description 01/06/2018 Procedure Pass [facility] [address] [place] [address] Social History Tobacco Use Types Packs/Day Years [...] Description 01/05/2025 11:00 AM EST Pre-Admission Testing [address] 2nd [place] [address] Irineo Ruff MD [address] [place] [address] [email or web address] 01/10/2025 Procedure Pass [facility] Endoscopy Department [address] [place] [address] 01/10/2025 7:30 AM EST Hospital Encounter [facility] Endoscopy Department [address] [place] [address] Irineo Ruff MD [address] [place] [address] [email or web address] 01/10/2025 7:30 AM EST - 01/10/2025 8:15 AM EST Surgery [facility] Endoscopy Department [address] [place] [address] Irineo Ruff MD [address] [place] [address] [email or web address] COLONOSCOPY 01/31/2025 1:00 PM EST Office Visit [facility] Cardiovascular Medicine [address], 5th Floor, [address] [place] [address] Karena Betancur MD [address] [place] [address] [email or web address] Scheduled Procedures Name Priority Associated Diagnoses [...] documented as of this encounter Care Teams Team Coordinator Relationship Specialty Start Date End Date Artie Meehan MD [address] [place] [address] PCP - General Internal Medicine 10/26/17 06/03/21 Laura Mock MD, DMD [address] [address] [email or web address] PCP - General Internal Medicine 06/04/21 11/11/23 Pcp, Unknown PCP - General 11/12/23 11/16/23 Laura Mock MD, DMD [address] [address] [email or web address] PCP - General Internal Medicine 11/17/23 12/28/23 Pcp, Unknown PCP - General 02/28/24 03/04/24 Nicole Newell [place] [address] [place] [address] PCP - General 03/05/24 05/17/24 Laura Mock MD, DMD [address] [address] [email or web address] PCP - General Internal Medicine 05/18/24 Artie Meehan MD [address] [place] [address] [address] [place] [address] Internal Medicine 10/26/17 04/23/22 Rina Swenson MD [address] [place] [address] Dr [address] [place] [address] Psychiatry 07/09/17 Laura Mock MD, DMD [address] [address] [email or web address] Partners Attributed Provider 09/01/21 07/03/23 Laura Mock MD, DMD [address] [address] [email or web address] Insurance Assigned Provider 05/31/23 03/01/24 Jakob Bob MD [address] [place] [address] [address] [place] [address] [email or web address] Cardiology 08/22/23 Jose Cruz MD [address] [place] [address], [address] [place] [address] Cardiology 08/22/23 Laura Mock MD, DMD 1 [facility] [address] [place] [address] [email or web address] Partners Attributed Provider 09/01/21 07/03/23 [facility] [phone]. Consulting Provider 08/22/23 [facility] Connect 12/24/23 03/11/24 Cyril Morales [facility] [place] [address] Nurse Practitioner 02/27/24 documented as of this encounter Additional Source Comments The information contained in this document represents components of the legal health record. It is not the complete legal health record.[facility]
== END 2024-11-29 14:12 | disposition home or self-care (01) ==
LOC: HO.ACS 13:42
PROVIDERS: PCP Internal Medicine; Visit Provider Internal Medicine Medical Oncology
DX: Z79.01 Long term (current) use of anticoagulants (principal)

== ENCOUNTER → 2024-11-29 13:42 | Outpatient (BNVA) | payer MEDICARE, SELFPAY | PROVIDERS: PCP Internal Medicine; Visit Provider Internal Medicine Medical Oncology | DX: Z51.81 Encounter for therapeutic drug level monitoring (principal); Z79.01 Long term (current) use of anticoagulants | CPT/HCPCS: 85610; 99211 ==

== ENCOUNTER 2024-12-22 12:52 | Outpatient (AMB) | payer MEDICARE, SELFPAY ==
--- NOTE | 2024-12-22 13:07 | MHC.OFFVISCO ---
Intake Intake Visit Reasons: Anticoagulation Allergies latex Allergy (Intermediate, Verified 12/22/24 13:02) Rash Medication List - Last Reconciled 12/22/24 by Sylwia Molina RN acetaminophen 500 mg PO Q6H PRN amoxicillin 2,000 mg (4 x 500 mg) PO ONCE 1 day ascorbate calcium (vitamin C) 1 g PO DAILY bupropion HCl XL (Wellbutrin XL) 300 mg PO QAM clonazepam 0.5 mg PO BID PRN cyanocobalamin (vitamin B-12) PO folic acid 0.8 mg PO DAILY lisinopril 10 mg PO BID [multivitamin PO] warfarin See Protocol 4 mg on Mondays, Wednesdays and Fridays then 3 mg on Tuesdays, , Saturdays and Sundays 30 days Nursing Note INR 1.8-?? out of therapeutic range 2-3 pt may have missed a dose Medications and supplements reviewed Patient status: pt missed two appts at acs Medications or supplements: started vit D3 & K2 Diet: same Denies any signs and symptoms of bleeding or clotting or unusual bruising Bleeding, bruising, clotting discussed Nutritional guidance given: no greens for 2 days, eat reds to raise Dose: 6mg today then cont 4mg x 4, 3mg x 3 F/U INR Date : 1 week?? Patient verbalizing understanding of instructions given. pt to bring in all vitamins to acs next appt pt given pocket calendar for appt reminders Anti-Coag Initial Assessment Social Hx Patient Tobacco Use Status: Never used Tobacco alcohol intake: never Alcohol intake frequency: does not drink Coding Level of Care Code Est Patient Level 1 Diagnoses Current use of anticoagulant therapy Z79.01 Assessment & Plan Assessment & Plan (1) Current use of anticoagulant therapy: Code(s): Z79.01 - MCFP (current) use of 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
[2024-12-22 13:08] LABS: Prothrombin Time Whole Bld POC 21.1 sec (11.1-13.5); ~PT, ~INR - Anti Coag Clinic 1.8 (0.9-1.1)
--- OUTSIDE RECORDS SUMMARY | 2024-12-22 16:13 | XMS_ITS | Encounter Summary ---
Author Organization [facility] Address [facility] [address] [place] [address] Phone Care Team Providers Care Take Away Attendant Name Role Phone Artie Meehan MD Primary Care Provider Artie Meehan MD Unavailable [phone] Rina Swenson MD Unavailable [phone] Laura Mock MD, DMD Primary Car e Provider Laura Mock MD, DMD Unavailable Laura Mock MD, DMD Unavailable Jakob Bob MD Unavailable Jose Cruz MD Unavailable [phone] Laura Mock MD, DMD Unavailable Pcp, Unknown [...] (Late st Contact Info) Description 12/09/2017 Telephone [facility] Urology [address] [facility] [address] [place] [address] Maureen De Los [email or web address] Question regarding Symtoms (Former pt. of [...] Description 01/05/2025 11:00 AM EST Pre-Admission Testing [facility] [address] [facility] 2nd [place] [address] Irineo Ruff MD [address] [place] [address] [email or web address] 01/10/2025 Procedure Pass [facility] Endoscopy Department [address] [place] [address] 01/10/2025 7:30 AM EST Hospital Encounter [facility] Endoscopy Department [address] [place] [address] Irineo Ruff MD [address] [place] [address] [email or web address] 01/10/2025 7:30 AM EST - 01/10/2025 8:15 AM EST Surgery [facility] Endoscopy Department [address] [place] [address] Irineo Ruff MD [address] [place] [address] [place] [address] [email or web address] COLONOSCOPY 01/31/2025 1:00 PM EST Office Visit [facility] Cardiovascular Medicine [address] [facility], 5th Floor, [address] [place] [address] Karena Betancur MD 55 [facility] [address] [place] [address] [email or web address] Scheduled Procedures Name Priority [...] documented as of this encounter Care Teams Take Away Attendant Relationship Specialty Start Date End Date Artie Meehan MD [address] [place] [address] [place] [address] PCP - General Internal Medicine 10/26/17 06/03/21 Laura Mock MD, DMD [address] [address] [email or web address] PCP - General Internal Medicine 06/04/21 11/11/23 Pcp, Unknown PCP - General 11/12/23 11/16/23 Laura Mock MD, DMD [address] [address] [email or web address] PCP - General Internal Medicine 11/17/23 12/28/23 Pcp, Unknown PCP - General 02/28/24 03/04/24 [place] [address] [address] PCP - General 03/05/24 05/17/24 Laura Mock MD, DMD [address] [address] [email or web address] so PCP - General Internal Medicine 05/18/24 Artie Meehan MD [address] [place] [address] Dr [address] [place] [address] Internal Medicine 10/26/17 04/23/22 Rina Swenson MD [address] [place] [address] Dr [address] [place] [address] Psychiatry 07/09/17 Laura Mock MD, DMD [address] [address] [email or web address] Partners Attributed Provider 09/01/21 07/03/23 Laura Mock MD, DMD [address] [address] [email or web address] Insurance Assigned Provider 05/31/23 03/01/24 Jakob Bob MD [address] [place] [address] [address] [place] [address] [email or web address] Cardiology 08/22/23 Jose Cruz MD [address] [facility], [address] [place] [address] [email or web address] Cardiology 08/22/23 Laura Mock MD, DMD [address] [place] [address] [address] [place] [address] [email or web address] Partners Attributed Provider 09/01/21 07/03/23 [facility] [phone]. Consulting Provider 08/22/23 [facility] Connect 12/24/23 03/11/24 Cyril Morales [address] [place] [address] Nurse Practitioner 02/27/24 documented as of this encounter Additional Source Comments The information contained in this document represents components of the legal health record. It is not the complete legal health record.[facility]
--- OUTSIDE RECORDS SUMMARY | 2024-12-22 16:13 | XMS_ITS | Encounter Summary ---
Author Organization [facility] Address [facility] [employer] [facility] [address] [place] [address] Phone Care Team Providers Care Ornamental Plasterer Helper Name Role Phone Artie Meehan MD Primary Care Provider Artie Meehan MD Unavailable [phone] Rina Swenson MD Unavailable Laura Mock MD, DMD Primary Car e Provider Laura Mock MD, DMD Unavailable Laura Mock MD, DMD Unavailable Jakob Bob MD Unavailable Jose Cruz MD Unavailable [phone] Laura Mock MD, DMD Unavailable Pcp, Unknown Primary Care Provider UnavailLaura Ascencio MD, DMD Primary Car e Provider Pcp, Unknown Primary Care Provider UnavailNicole Arguello MD Primary Care Provide r Laura Mock MD, DMD Primary Car e Provider Encounter Details Date Type Department Care Team (Late st Contact Info) Description 11/07/2020 Procedure Pass [facility], [address] [address] Social History Tobacco Use Types Packs/Day Years [...] 01/05/2025 11:00 AM EST Pre-Admission Testing [address] 2nd [place] [address] Irineo Ruff MD [address] [place] [address] [place] [address] [email or web address] 01/10/2025 Procedure Pass [facility] Endoscopy Department [address] [place] [address] 01/10/2025 7:30 AM EST Hospital Encounter [facility] Endoscopy Department [address] [place] [address] Irineo Ruff MD [address] [place] [address] [place] [address] [email or web address] 01/10/2025 7:30 AM EST - 01/10/2025 8:15 AM EST Surgery [facility] Endoscopy Department [address] [place] [address] Irineo Ruff MD [address] [place] [address] [email or web address] COLONOSCOPY 01/31/2025 1:00 PM EST Office Visit [facility] Cardiovascular Medicine [address] [place] [address], 5th Floor, [address] [place] [address] Karena Betancur MD [address] [place] [address] [email or web address] Scheduled Procedures Name Priority Associated [...] documented as of this encounter Care Teams Ornamental Plasterer Helper Relationship Specialty Start Date End Date Artie Meehan MD [address] [place] [address] PCP - General Internal Medicine 10/26/17 06/03/21 Laura Mock MD, DMD [address] [address] [email or web address] PCP - General Internal Medicine 06/04/21 11/11/23 Pcp, Unknown PCP - General 11/12/23 11/16/23 Laura Mock MD, DMD [address] [address] [email or web address] PCP - General Internal Medicine 11/17/23 12/28/23 Pcp, Unknown PCP - General 02/28/24 03/04/24 Nicole Newell [place] [address] [place] [address] PCP - General 03/05/24 05/17/24 Laura Mock MD, DMD [address] [address] [email or web address] PCP - General Internal Medicine 05/18/24 Artie Meehan MD [address] [place] [address] Dr [address] [place] [address] Internal Medicine 10/26/17 04/23/22 Rina Swenson MD [address] [place] [address] Dr [address] [place] [address] Psychiatry 07/09/17 Laura Mock MD, DMD [address] [address] [email or web address] Attributed Provider 09/01/21 07/03/23 Laura Mock MD, DMD [address] [address] [email or web address] Insurance Assigned Provider 05/31/23 03/01/24 Jakob Bob MD [address] [place] [address] [place] [address] [email or web address] Cardiology 08/22/23 Jose Cruz MD [address] [place] [address], [address] [place] [address] Cardiology 08/22/23 Laura Mock MD, DMD 1 [facility] [address] [place] [address] [email or web address] Attributed Provider 09/01/21 07/03/23 [facility] [phone]. Consulting Provider 08/22/23 [facility] Connect 12/24/23 03/11/24 Cyril Morales [address] [place] [phone] Nurse Practitioner 02/27/24 documented as of this encounter Additional Source Comments The information contained in this document represents components of the legal health record. It is not the complete legal health record.[facility]
--- OUTSIDE RECORDS SUMMARY | 2024-12-22 16:13 | XMS_ITS | Encounter Summary ---
Author Organization [facility] Address [address] [place] [address] Phone Care Team Providers Care Registered Nurse Step Down Name Role Phone Artie Meehan MD Unavailable [...] Description 01/16/2022 Anti-coag visit VIRTUAL DEPARTMENT Marek Elais, PharmD [address] Pharm[place] [address] [email or web address] Social History Tobacco Use Types Packs/Day [...] Upcoming Encounters Date Type Department Care Team ([facility] st Contact Info) Description 01/05/2025 11:00 AM EST Pre-Admission Testing [address] [address] Irineo Ruff MD [address] [place] [address] [email or web address] 01/10/2025 Procedure Pass [facility] Endoscopy Department [address] [place] [address] 01/10/2025 7:30 AM EST Hospital Encounter [facility] Endoscopy Department [address] [place] [address] Irineo Ruff MD [address] [place] [address] [email or web address] 01/10/2025 7:30 AM EST - 01/10/2025 8:15 AM EST Surgery [facility] Endoscopy Department [address] [place] [address] Irineo Ruff MD [address] [place] [address] [email or web address] COLONOSCOPY 01/31/2025 1:00 PM EST Office Visit [facility] Cardiovascular Medicine [address] [facility], 5th Floor, [address] [place] [address] Karena Betancur MD [address] [facility] [address] [place] [address] [email or web address] Scheduled [...] of this encounter Care Teams Registered Nurse Step Down Relationship Specialty Start Date End Date Laura Mock MD, DMD [address] [address] [email or web address] PCP - General Internal Medicine 06/04/21 11/11/23 Pcp, Unknown PCP - General 11/12/23 11/16/23 Laura Mock MD, DMD 1 [facility] [address] [place] [address] [email or web address] PCP - General Internal Medicine 11/17/23 12/28/23 Pcp, Unknown PCP - General 02/28/24 03/04/24 Nicole Newell MD [address] [place] [address] PCP - General 03/05/24 05/17/24 Laura Mock MD, DMD [address] [address] [email or web address] PCP - General Internal Medicine 05/18/24 Artie Meehan MD [address] [place] [address] [place] [address] Internal Medicine 10/26/17 04/23/22 Rina Swenson MD [address] [place] [address] [place] [address] Psychiatry 07/09/17 Laura Mock MD, DMD [address] [address] [email or web address] Partners Attributed Provider 09/01/21 07/03/23 Laura Mock MD, DMD [address] [address] [email or web address] Insurance Assigned Provider 05/31/23 03/01/24 Jakob Bob MD [address] [place] [address] [place] [address] [email or web address] Cardiology 08/22/23 Jose Cruz MD [address] [place] [address], [address] [address] Cardiology 08/22/23 Laura Mock MD, DMD 1 [facility] [address] [place] [address] [email or web address] Attributed Provider 09/01/21 07/03/23 [facility] [phone]. Consulting Provider 08/22/23 [facility] Connect 12/24/23 03/11/24 Cyril Morales [address] [place] [address] Nurse Practitioner 02/27/24 documented as of this encounter Additional Source Comments The information contained in this document represents components of the legal health record. It is not the complete legal health record.[facility]
--- OUTSIDE RECORDS SUMMARY | 2024-12-22 16:13 | XMS_ITS | Encounter Summary ---
Author Organization [facility] Address [facility] [address] [place] [address] Phone Care Team Providers Care Senior Compliance Analyst Name Role Phone Artie Meehan MD Primary Care Provider Artie Meehan MD Unavailable [phone] Rina Swenson MD Unavailable [phone] Laura Mock MD, DMD Primary Car e [...] Info) Description 07/06/2020 Procedure Pass [facility] [address] [place] [address] Social History Tobacco Use Types Packs/Day Years [...] 01/05/2025 11:00 AM EST Pre-Admission Testing [address] [place] [address] Irineo Ruff MD [address] [place] [address] [place] [address] [email or web address] 01/10/2025 Procedure Pass [facility] Endoscopy Department [address] [place] [address] 01/10/2025 7:30 AM EST Hospital Encounter [facility] Endoscopy Department [address] [place] [address] Irineo Ruff MD [address] [place] [address] [email or web address] 01/10/2025 7:30 AM EST - 01/10/2025 8:15 AM EST Surgery [facility] Endoscopy Department [address] [place] [address] Irineo Ruff MD [address] [place] [address] [email or web address] COLONOSCOPY 01/31/2025 1:00 PM EST Office Visit [facility] Cardiovascular Medicine [address] [place] [address], 5th Floor, [address] [place] [address] Karena Betancur MD [address] [facility] [address] [place] [address] [email or web address] Scheduled Procedures Name Priority [...] as of this encounter Care Teams Senior Compliance Analyst Relationship Specialty Start Date End Date Artie Meehan MD [address] [place] [address] PCP - General Internal Medicine 10/26/17 06/03/21 Laura Mock MD, DMD [address] [address] [email or web address] PCP - General Internal Medicine 06/04/21 11/11/23 Pcp, Unknown PCP - General 11/12/23 11/16/23 Laura Mock MD, DMD [address] [address] [email or web address] PCP - General Internal Medicine 11/17/23 12/28/23 Pcp, Unknown PCP - General 02/28/24 03/04/24 Nicole Newell [place] [address] [place] [address] PCP - General 03/05/24 05/17/24 Laura Mock MD, DMD [address] [address] [email or web address] PCP - General Internal Medicine 05/18/24 Artie Meehan MD [address] [place] [address] Dr [address] [place] [address] Internal Medicine 10/26/17 04/23/22 Rina Swenson MD [address] [place] [address] Dr Dior [address] [place] [address] Psychiatry 07/09/17 Laura Mock MD, DMD [address] [address] [email or web address] Partners Attributed Provider 09/01/21 07/03/23 Laura Mock MD, DMD [address] [address] [email or web address] Insurance Assigned Provider 05/31/23 03/01/24 Jakob Bob MD [address] [place] [address] [address] [place] [address] [email or web address] Cardiology 08/22/23 Jose Cruz MD [address] [place] [address], [address] [place] [address] Cardiology 08/22/23 Laura Mock MD, DMD 1 [facility] [address] [place] [address] [email or web address] Partners Attributed Provider 09/01/21 07/03/23 [facility] [phone]. Consulting Provider 08/22/23 [facility] 12/24/23 03/11/24 Cyril Morales [facility] [place] [address] Nurse Practitioner 02/27/24 documented as of this encounter Additional Source Comments The information contained in this document represents components of the legal health record. It is not the complete legal health record.[facility]
--- OUTSIDE RECORDS SUMMARY | 2024-12-22 16:13 | XMS_ITS | Encounter Summary ---
Author Organization [facility] Address [facility] [address] [place] [address] Phone Care Team Providers Care Manager Adult Name Role Phone Artie Meehan MD Unavailable Rina Swenson MD Unavailable Laura Mock MD, DMD Primary Car e Provider Laura Mock MD, DMD Unavailable Laura Mock MD, DMD Unavailable Jakob Bob MD Unavailable Jose Cruz MD Unavailable Laura Mock MD, DMD Unavailable Pcp, Unknown Primary Care Provider UnavailLaura Ascencio MD, DMD Primary Car e Provider Pcp, Unknown Primary Care Provider UnavailNicloe Arguello MD Primary Care Provide r Laura Mock MD, DMD Primary Car e Provider Encounter Details Date Type Department Care Team (Late st Contact Info) Description 10/19/2021 Anti-coag visit [facility] Anticoagulation Clinic [address] [place] [address] Melvin Stewart, [facility] [address] [place] [address] [email or web address] Social History Tobacco Use Types Packs/Day Years [...] Description 01/05/2025 11:00 AM EST Pre-Admission Testing [address] [address] Irineo Ruff MD [address] [place] [address] [email or web address] 01/10/2025 Procedure Pass [facility] Endoscopy Department [address] [place] [address] 01/10/2025 7:30 AM EST Hospital Encounter [facility] Endoscopy Department [address] [place] [address] Irineo Ruff MD [address] [place] [address] [email or web address] 01/10/2025 7:30 AM EST - 01/10/2025 8:15 AM EST Surgery [facility] Endoscopy Department [address] [place] [address] Irineo Ruff MD [address] [place] [address] [email or web address] COLONOSCOPY 01/31/2025 1:00 PM EST Office Visit [facility] Cardiovascular Medicine [address] [facility], 5th Floor, [address] [place] [address] Karena Betancur MD [address] [facility] [address] [place] [address] [email or web address] Scheduled Procedures Name [...] as of this encounter Care Teams Manager Adult Relationship Specialty Start Date End Date Laura Mock MD, DMD [address] [address] [email or web address] PCP - General Internal Medicine 06/04/21 11/11/23 Pcp, Unknown PCP - General 11/12/23 11/16/23 Laura Mock MD, DMD 1 [facility] [address] [place] [address] [email or web address] PCP - General Internal Medicine 11/17/23 12/28/23 Pcp, Unknown PCP - General 02/28/24 03/04/24 Nicole Newell MD [address] [place] [address] PCP - General 03/05/24 05/17/24 Laura Mock MD, DMD [address] [address] [email or web address] du PCP - General Internal Medicine 05/18/24 Artie Meehan MD [address] [place] [address] [place] [address] Internal Medicine 10/26/17 04/23/22 Rina Swenson MD [address] [place] [address] [place] [address] Psychiatry 07/09/17 Laura Mock MD, DMD [address] [address] [email or web address] du Partners Attributed Provider 09/01/21 07/03/23 Laura Mock MD, DMD [address] [address] [email or web address] du Insurance Assigned Provider 05/31/23 03/01/24 Jakob Bob MD [address] [place] [address] [place] [address] [email or web address] Cardiology 08/22/23 Jose Cruz MD [address] [place] [address], [address] [address] Cardiology 08/22/23 Laura Mock MD, DMD 1 [facility] [address] [place] [address] [email or web address] Partners Attributed Provider 09/01/21 07/03/23 [facility] [phone]. Consulting Provider 08/22/23 [facility] Connect 12/24/23 03/11/24 Cyril Morales [facility] [place] [address] Nurse Practitioner 02/27/24 documented as of this encounter Additional Source Comments The information contained in this document represents components of the legal health record. It is not the complete legal health record.[facility]
--- OUTSIDE RECORDS SUMMARY | 2024-12-22 16:13 | XMS_ITS | Encounter Summary ---
Author Organization [facility] Address [facility] [employer] [facility] [address] [place] [address] Phone Care Team Providers Care Nipple Maker Name Role Phone Artie Meehan MD Unavailable Rina Swenson MD Unavailable Laura Mock MD, DMD Primary Car e Provider Laura Mock MD, DMD Unavailable Laura Mock MD, DMD Unavailable Jakob Bob MD Unavailable [phone] Jose Cruz MD Unavailable Laura Mock MD, DMD Unavailable Pcp, Unknown Primary Care Provider UnavailLaura Ascencio MD, DMD Primary Car e Provider Pcp, Unknown Primary Care Provider UnavailNicole Arguello MD Primary Care Provide r Laura Mock MD, DMD Primary Car e Provider Encounter Details Date Type Department Care Team (Late st Contact Info) Description 04/05/20[address] Anti-co[address] visit [facility] Anticoagulation Clinic [address] [place] [address] Melvin Stewart, [facility] [address] [place] [address] [email or web address] Social History Tobacco Use Types Packs/Day Years [...] 01/05/2025 11:00 AM EST Pre-Admission Testing [address] [address] Irineo Ruff MD [address] [place] [address] [email or web address] 01/10/[address] [facility] Endoscopy Department [address] [place] [address] 01/10/2025 7:30 AM EST Hospital Encounter [facility] Endoscopy Department [address] [place] [address] Irineo Ruff MD [address] [place] [address] [email or web address] 01/10/2025 7:30 AM EST - 01/10/2025 8:[address] [facility] Endoscopy Department [address] [place] [address] Irineo Ruff MD [address] [place] [address] [email or web address] [email or web address] 01/31/2025 1:00 PM EST Office [place] [facility] [place]ovascular Medicine [address] [facility], 5th Floor, [address] [place] [address] Karena Betancur MD [address] [facility] [address] [place] [address] [email or web address] Scheduled [...] documented as of this encounter Care Teams Nipple Maker Relationship Specialty Start Date End Date Laura Mock MD, DMD [address] [address] [email or web address] PCP - General Internal Medicine 06/04/21 11/11/23 Pcp, Unknown PCP - General 11/12/23 11/16/23 Laura Mock MD, DMD [address] [address] [email or web address] PCP - General Internal Medicine 11/17/23 12/28/23 Pcp, Unknown PCP - General 02/28/24 03/04/24 [place] [address] [address] PCP - General 03/05/24 05/17/24 Laura Mock MD, DMD [address] [address] [email or web address] du PCP - General Internal Medicine 05/18/24 Artie Meehan MD [address] [place] [address] Dr Dior [address] [place] [address] Internal Medicine 10/26/17 04/23/22 Rina Swenson MD [address] [place] [address] Dr Dior [address] [place] [address] Psychiatry 07/09/17 Laura Mock MD, DMD [address] [address] [email or web address] Partners Attributed Provider 09/01/21 07/03/23 Laura Mock MD, DMD [address] [address] [email or web address] du Insurance Assigned Provider 05/31/23 03/01/24 Jakob Bob MD [address] [place] [address] [place] [address] [email or web address] Cardiology 08/22/23 Jose Cruz MD [address] [place] [address], [facility] [address] [place] [address] Cardiology 08/22/23 Laura Mock MD, DMD 1 [place] [address] [email or web address] Partners Attributed Provider 09/01/21 07/03/23 [facility] [phone]. Consulting Provider 08/22/23 [facility] Connect 12/24/23 03/11/24 Cyril Morales [address] [place] [address] Nurse Practitioner 02/27/24 documented as of this encounter Additional Source Comments The information contained in this document represents components of the legal health record. It is not the complete legal health record.[facility]
--- OUTSIDE RECORDS SUMMARY | 2024-12-22 16:13 | XMS_ITS | Encounter Summary ---
Author Organization [facility] Address [facility] [employer] [facility] [address] [place] [address] Phone Care Team Providers Care Pocket Flap Creasing Machine Operator Name Role Phone Artie Meehan [...] st Contact Info) Description 02/18/2022 Anti-coag visit [facility] Anticoagulation Clinic [address] [place] [address] Rony Amaro, [facility] [address] [address] [email or web address] Social History Tobacco Use Types Packs/Day Years [...] 01/05/2025 11:00 AM EST Pre-Admission Testing [address] [place] [address] [address] Irineo Ruff MD [address] [place] [address] [place] [address] [email or web address] 01/10/2025 Procedure Pass [facility] Endoscopy Department [address] [place] [address] 01/10/2025 7:30 AM EST Hospital Encounter [facility] Endoscopy Department [address] [place] [address] Irineo Ruff MD [address] [place] [address] [email or web address] 01/10/2025 7:30 AM EST - 01/10/2025 8:15 AM EST Surgery [facility] Endoscopy Department [address] [place] [address] Irineo Ruff MD [address] [place] [address] [place] [address] [email or web address] COLONOSCOPY 01/31/2025 1:00 PM EST Office Visit [facility] Cardiovascular Medicine [address] [facility], 5th Floor, [address] [place] [address] Karena Betancur MD [address] [facility] [address] [place] [address] [email or web address] Scheduled Procedures Name Priority Associated [...] documented as of this encounter Care Teams Pocket Flap Creasing Machine Operator Relationship Specialty Start Date End Date Laura Mock MD, DMD [address] [address] [email or web address] PCP - General Internal Medicine 06/04/21 11/11/23 Pcp, Unknown PCP - General 11/12/23 11/16/23 Laura Mock MD, DMD [address] [address] [email or web address] PCP - General Internal Medicine 11/17/23 12/28/23 Pcp, Unknown PCP - General 02/28/24 03/04/24 [place] [address] [address] PCP - General 03/05/24 05/17/24 Laura Mock MD, DMD [address] [address] [email or web address] PCP - General Internal Medicine 05/18/24 Artie Meehan MD [address] [place] [address] Dr D[address] [place] [address] Internal Medicine 10/26/17 04/23/22 Rina Swenson MD [address] [place] [address] Dr Dior [address] [place] [address] Psychiatry 07/09/17 Laura Mock MD, DMD [address] [address] [email or web address] Partners Attributed Provider 09/01/21 07/03/23 Laura Mock MD, DMD [address] [address] [email or web address] Insurance Assigned Provider 05/31/23 03/01/24 Jakob Bob MD [address] [place], [place] [address] [place] [address] [email or web address] Cardiology 08/22/23 Jose Cruz MD [address] [place] [address], [facility] [address] [place] [address] Cardiology 08/22/23 Laura Mock MD, DMD 1 [facility] [address] [place] [address] [email or web address] Partners Attributed Provider 09/01/21 07/03/23 [facility] [phone]. Consulting Provider 08/22/23 [facility] Connect 12/24/23 03/11/24 Cyril Morales [address] [place] [phone] Nurse Practitioner 02/27/24 documented as of this encounter Additional Source Comments The information contained in this document represents components of the legal health record. It is not the complete legal health record.[facility]
--- OUTSIDE RECORDS SUMMARY | 2024-12-22 16:13 | XMS_ITS | Encounter Summary ---
Author Organization [facility] Address [facility] [employer] [address] [address] Phone Care Team Providers Care Hand Cementer Name Role Phone Artie Meehan MD Unavailable Rina Swenson MD Unavailable Laura Mock MD, DMD Primary Car e Provider Laura Mock MD, DMD Unavailable Laura Mock MD, DMD Unavailable Jakob Bob MD Unavailable Jose Cruz MD Unavailable [phone] Laura Mock MD, DMD Unavailable Pcp, Unknown [...] Description 01/05/2025 11:00 AM EST Pre-Admission Testing [facility] [address] [facility] 2nd [place] [address] Irineo Ruff MD [address] [place] [address] [email or web address] 01/10/2025 Procedure Pass [facility] Endoscopy Department [address] [place] [address] 01/10/2025 7:30 AM EST Hospital Encounter [facility] Endoscopy Department [address] [place] [address] Irineo Ruff MD [address] [place] [address] [email or web address] 01/10/2025 7:30 AM EST - 01/10/2025 8:15 AM EST Surgery [facility] Endoscopy Department [address] [place] [address] Irineo Ruff MD [address] [place] [address] [email or web address] [email or web address] 01/31/2025 1:00 PM EST Office Visit [facility] Cardiovascular Medicine 32 [facility], 5th Floor, [address] [place] [address] Karena Betancur MD [address] [address] [email or web address] Scheduled Procedures [...] as of this encounter Care Teams Hand Cementer Relationship Specialty Start Date End Date Laura Mock MD, DMD [address] [place] [address] [place] [address] [email or web address] PCP - General Internal Medicine 06/04/21 11/11/23 Pcp, Unknown PCP - General 11/12/23 11/16/23 Laura Mock MD, DMD [address] [place] [address] [place] [address] [email or web address] du PCP - General Internal Medicine 11/17/23 12/28/23 Pcp, Unknown PCP - General 02/28/24 03/04/24 Nicole Newell MD [address] [place] [address] PCP - General 03/05/24 05/17/24 Laura Mock MD, DMD [address] [place] [address] [place] [address] [email or web address] du PCP - General Internal Medicine 05/18/24 Artie Meehan MD [address] [place] [address] [place] [address] Internal Medicine 10/26/17 04/23/22 Rina Swenson MD [address] [place] [address] Ovi Barber [facility] [place] [address] Psychiatry 07/09/17 Laura Mock MD, DMD [address] [address] [email or web address] [employer] Attributed Provider 09/01/21 07/03/23 Laura Mock MD, DMD [address] [address] [email or web address] du Insurance Assigned Provider 05/31/23 03/01/24 Jakob Bob MD [address] [place] [address] [email or web address] Cardiology 08/22/23 Jose Cruz MD [address] [place] [address], [facility] [address] [place] [address] Cardiology 08/22/23 Laura Mock MD, DMD [address] [address] [email or web address] Attributed Provider 09/01/21 07/03/23 [facility] [phone]. Consulting Provider 08/22/23 [facility] Connect 12/24/23 03/11/24 Cyril Morales [address] [place] [phone] Nurse Practitioner 02/27/24 documented as of this encounter Additional Source Comments The information contained in this document represents components of the legal health record. It is not the complete legal health record.[facility]
--- OUTSIDE RECORDS SUMMARY | 2024-12-22 16:13 | XMS_ITS | Encounter Summary ---
Author Organization [facility] Address [facility] [employer] [facility] [address] [place] [address] Phone Care Team Providers Care Rattan Worker Name Role Phone Artie Meehan MD Primary Care Provider Artie Meehan MD Unavailable [phone] Rina Swenson MD Unavailable Laura Mock MD, DMD Primary Car e Provider Laura Mock MD, DMD Unavailable Laura Mock MD, DMD Unavailable Jakob Bob MD Unavailable [phone] Jose Cruz MD Unavailable Laura Mock MD, DMD Unavailable Pcp, Unknown Primary Care Provider UnavailLaura Ascencio MD, DMD Primary Car e Provider Pcp, Unknown Primary Care Provider UnavailNicole Arguello MD Primary Care Provide r Laura Mock MD, DMD Primary Car e Provider Encounter Details Date Type Department Care Team (Late st Contact Info) Description 11/15/2020 Transcribe Orders Virtual Department [address] [place] [address] Artie Meehan MD [address] [place] [address] [place] [address] Asymptomatic menopausal state (Primary Dx); Age-related osteoporosis [...] Description 01/05/2025 11:00 AM EST [facility]-Admission Testing [facility] [address] [place] [address] 2nd [place] [address] Irineo Ruff MD [address] [place] [address] [email or web address] 01/10/2025 Procedure Pass [facility] Endoscopy Department [address] [place] [address] 01/10/2025 7:30 AM EST Hospital Encounter [facility] Endoscopy Department [address] [place] [address] Irineo Ruff MD [address] [place] [address] [email or web address] 01/10/2025 7:30 AM EST - 01/10/2025 8:15 AM EST Surgery [facility] Endoscopy Department [address] [place] [address] Irineo Ruff MD [address] [place] [address] [email or web address] COLONOSCOPY 01/31/2025 1:00 PM EST Office [place] [facility] [place] Medicine [address] [facility], 5th Floor, [address] [place] [address] Karena Betancur MD 55 [facility] [address] [place] [address] [email or web address] Scheduled Procedures Name Priority Associated [...] bone mineral density was calculated at 0.409 gm/ev0qokh a T- score of -4 falling within [...] documented as of this encounter Care Teams Rattan Worker Relationship Specialty Start Date End Date Artie Meehan MD [address] [place] [address] [place] [address] PCP - General Internal Medicine 10/26/17 06/03/21 Laura Mock MD, DMD [address] [address] [email or web address] du PCP - General Internal Medicine 06/04/21 11/11/23 Pcp, Unknown PCP - General 11/12/23 11/16/23 Laura Mock MD, DMD [address] [address] [email or web address] du PCP - General Internal Medicine 11/17/23 12/28/23 Pcp, Unknown PCP - General 02/28/24 03/04/24 Nicole Newell MD [address] [place] [address] PCP - General 03/05/24 05/17/24 Laura Mock MD, DMD [address] [address] [email or web address] du PCP - General Internal Medicine 05/18/24 Artie Meehan MD [address] [place] [address] [place] [address] Internal Medicine 10/26/17 04/23/22 Rina Swenson MD [address] [place] [address] [place] [address] Psychiatry 07/09/17 Laura Mock MD, DMD [address] [address] [email or web address] Attributed Provider 09/01/21 07/03/23 Laura Mock MD, DMD [address] [address] [email or web address] du Insurance Assigned Provider 05/31/23 03/01/24 Jakob Bob MD [address] [place] [address] [email or web address] Cardiology 08/22/23 Jose Cruz MD [address] [place] [address], [address] [address] [email or web address] Cardiology 08/22/23 Laura Mock MD, DMD [address] [address] [email or web address] Attributed Provider 09/01/21 07/03/23 [facility] [phone]. Consulting Provider 08/22/23 [facility] Connect 12/24/23 03/11/24 Cyril Morales [address] [place] [address] Nurse Practitioner 02/27/24 documented as of this encounter Additional Source Comments The information contained in this document represents components of the legal health record. It is not the complete legal health record.[facility]
--- OUTSIDE RECORDS SUMMARY | 2024-12-22 16:13 | XMS_ITS | Encounter Summary ---
Author Organization [facility] Address [facility] [employer] [address] [address] Phone Care Team Providers Care Housekeeper/Custodian/Laundry Worker Name Role Phone Artie Meehan MD Unavailable Rina Swenson MD Unavailable Laura Mock MD, DMD Primary Car e Provider Laura Mock MD, DMD Unavailable Laura Mock MD, DMD Unavailable Jakob Bob MD Unavailable Jose Cruz MD Unavailable [phone] Laura Mock MD, DMD Unavailable Pcp, Unknown [...] Description 01/05/2025 11:00 AM EST Pre-Admission Testing [facility] [address] [facility] 2nd [place] [address] Irineo Ruff MD [address] [place] [address] [email or web address] 01/10/2025 Procedure Pass [facility] Endoscopy Department [address] [place] [address] 01/10/2025 7:30 AM EST Hospital Encounter [facility] Endoscopy Department [address] [place] [address] Irineo Ruff MD [address] [place] [address] [email or web address] 01/10/2025 7:30 AM EST - 01/10/2025 8:15 AM EST Surgery [facility] Endoscopy Department [address] [place] [address] Irineo Ruff MD [address] [place] [address] [email or web address] COLONOSCOPY 01/31/2025 1:00 PM EST Office Visit [facility] Cardiovascular Medicine [address] [facility], 5th Floor, [address] [place] [address] Karena Betancru MD [address] [address] [email or web address] Scheduled Procedures Name [...] documented as of this encounter Care Teams Housekeeper/Custodian/Laundry Worker Relationship Specialty Start Date End Date Laura Mock MD, DMD [address] [address] [place] [address] [email or web address] PCP - General Internal Medicine 06/04/21 11/11/23 Pcp, Unknown PCP - General 11/12/23 11/16/23 Laura Mock MD, DMD [address] [address] [place] [address] [email or web address] du PCP - General Internal Medicine 11/17/23 12/28/23 Pcp, Unknown PCP - General 02/28/24 03/04/24 Nicole Newell MD [address] [place] [address] PCP - General 03/05/24 05/17/24 Laura Mock MD, DMD [address] [address] [place] [address] [email or web address] du PCP - General Internal Medicine 05/18/24 Artie Meehan MD [address] [place] [address] [place] [address] Internal Medicine 10/26/17 04/23/22 Rina Swenson MD [address] [place] [address] Ovi Barber [facility] [address] Psychiatry 07/09/17 Laura Mock MD, DMD [address] [address] [email or web address] Partners Attributed Provider 09/01/21 07/03/23 Laura Mock MD, DMD [address] [address] [email or web address] du Insurance Assigned Provider 05/31/23 03/01/24 Jakob Bob MD [address] [place] [address] [email or web address] Cardiology 08/22/23 Jose Cruz MD [address] [place] [address], [facility] [address] [place] [address] Cardiology 08/22/23 Laura Mock MD, DMD [address] [address] [email or web address] du Partners Attributed Provider 09/01/21 07/03/23 [facility] [phone]. Consulting Provider 08/22/23 [facility] Connect 12/24/23 03/11/24 Cyril Morales [address] [place] [address] Nurse Practitioner 02/27/24 documented as of this encounter Additional Source Comments The information contained in this document represents components of the legal health record. It is not the complete legal health record.[facility]
--- OUTSIDE RECORDS SUMMARY | 2024-12-22 16:14 | XMS_ITS | Encounter Summary ---
Author Organization [facility] Address [facility] [employer] [facility] [address] [place] [address] Phone Care Team Providers Care Final Finisher Forging Dies Name Role Phone Artie Meehan MD Primary Care Provider Artie Meehan MD Unavailable [phone] Rina Swenson MD Unavailable Laura Mock MD, DMD Primary Car e Provider Larua Mock MD, DMD Unavailable Laura Mock MD, DMD Unavailable Jakob Bob MD Unavailable Jose Cruz MD Unavailable [phone] Laura Mock MD, DMD Unavailable Pcp, Unknown Primary Care Provider UnavailLaura Ascencio MD, DMD Primary Car e Provider Pcp, Unknown Primary Care Provider UnavailNicole Arguello MD Primary Care Provide r Laura Mock MD, DMD Primary Car e Provider Encounter Details Date Type Department Care Team (Late st Contact Info) Description 09/06/2020 Procedure Pass [facility] [address] [place] [address] Social History Tobacco Use Types Packs/Day Years [...] Description 01/05/2025 11:00 AM EST Pre-Admission Testing [address] 2nd [place] [address] Irineo Ruff MD [address] [place] [address] [place] [address] [email or web address] 01/10/2025 Procedure Pass [facility] Endoscopy Department [address] [place] [address] 01/10/2025 7:30 AM EST Hospital Encounter [facility] Endoscopy Department [address] [place] [address] Irineo Ruff MD [address] [place] [address] [email or web address] 01/10/2025 7:30 AM EST - 01/10/2025 8:15 AM EST Surgery [facility] Endoscopy Department [address] [place] [address] Irineo Ruff MD [address] [place] [address] [email or web address]@[facility] COLONOSCOPY 01/31/2025 1:00 PM EST Office Visit [facility] Cardiovascular Medicine [address] [place] [address], 5th Floor, [address] [place] [address] Karena Betancur MD [address] [facility] [address] [place] [address] [email or web address] Scheduled Procedures Name Priority [...] documented as of this encounter Care Teams Final Finisher Forging Dies Relationship Specialty Start Date End Date Artie Meehan MD [address] [place] [address] [place] [address] PCP - General Internal Medicine 10/26/17 06/03/21 Laura Mock MD, DMD [address] [address] [email or web address] PCP - General Internal Medicine 06/04/21 11/11/23 Pcp, Unknown PCP - General 11/12/23 11/16/23 Laura Mock MD, DMD [address] [address] [email or web address] PCP - General Internal Medicine 11/17/23 12/28/23 Pcp, Unknown PCP - General 02/28/24 03/04/24 [place] [address] [address] PCP - General 03/05/24 05/17/24 Laura Mock MD, DMD [address] [address] [email or web address] PCP - General Internal Medicine 05/18/24 Artie Meehan MD [address] [place] [address] Dr Dior [facility] [place] [address] Internal Medicine 10/26/17 04/23/22 Rina Swenson MD [address] [place] [address] Dr Dior [facility] [place] [address] Psychiatry 07/09/17 Laura Mock MD, DMD [address] [address] [email or web address] Partners Attributed Provider 09/01/21 07/03/23 Laura Mock MD, DMD [address] [address] [email or web address] Insurance Assigned Provider 05/31/23 03/01/24 Jakob Bob MD [address] [place] [address] [address] [place] [address] [email or web address] Cardiology 08/22/23 Jose Cruz MD [address] [place] [address], [address] [place] [address] Cardiology 08/22/23 Laura Mock MD, DMD [address] [address] [email or web address] Partners Attributed Provider 09/01/21 07/03/23 [facility] [phone]. Consulting Provider 08/22/23 [facility] Connect 12/24/23 03/11/24 Cyril Morales [address] [place] [address] Nurse Practitioner 02/27/24 documented as of this encounter Additional Source Comments The information contained in this document represents components of the legal health record. It is not the complete legal health record.[facility]
--- OUTSIDE RECORDS SUMMARY | 2024-12-22 16:14 | XMS_ITS | Encounter Summary ---
Author Organization [facility] Address [facility] [employer] [facility] [address] [place] [address] Phone Care Team Providers Care Gas Engine Operator Generators Name Role Phone Artie Meehan MD Unavailable [...] st Contact Info) Description 09/13/2021 Anti-coag visit [facility] Anticoagulation Clinic [address] [place] [address] Abbie Prieto, PharmD [address] [address] [email or web address] Social History Tobacco Use [...] Description 01/05/2025 11:00 AM EST Pre-Admission Testing [address] 2nd [place] [address] Irineo Ruff MD [address] [place] [address] [place] [address] [email or web address] 01/10/2025 Procedure Pass [facility] Endoscopy Department [address] [place] [address] 01/10/2025 7:30 AM EST Hospital Encounter [facility] Endoscopy Department [address] [place] [address] Irineo Ruff MD [address] [place] [address] [email or web address] 01/10/2025 7:30 AM EST - 01/10/2025 8:15 AM EST Surgery [facility] Endoscopy Department [address] [place] [address] Irineo Ruff MD [address] [place] [address] [place] [address] [email or web address] COLONOSCOPY 01/31/2025 1:00 PM EST Office Visit [facility] Cardiovascular Medicine [address] [facility], 5th Floor, [address] [place] [address] Karena Betancur MD [address] [facility] [address] [place] [address] FRANK@[email or web address] Scheduled Procedures Name Priority Associated Diagnoses [...] as of this encounter Care Teams Gas Engine Operator Generators Relationship Specialty Start Date End Date Laura Mock MD, DMD [address] [address] [email or web address] PCP - General Internal Medicine 06/04/21 11/11/23 Pcp, Unknown PCP - General 11/12/23 11/16/23 Laura Mock MD, DMD [address] [address] [email or web address] PCP - General Internal Medicine 11/17/23 12/28/23 Pcp, Unknown PCP - General 02/28/24 03/04/24 [place]ell [place] [address] [place] [address] PCP - General 03/05/24 05/17/24 Laura Mock MD, DMD [address] [address] [email or web address] du PCP - General Internal Medicine 05/18/24 Artie Meehan MD [address] [place] [address] Dr [address] [place] [address] Internal Medicine 10/26/17 04/23/22 Rina Swenson MD [address] [place] [address] Dr [address] [place] [address] [place] [address] Psychiatry 07/09/17 Laura Mock MD, DMD [address] [address] [email or web address] Partners Attributed Provider 09/01/21 07/03/23 Laura Mock MD, DMD [address] [address] [email or web address] Insurance Assigned Provider 05/31/23 03/01/24 Jakob Bob MD [address] [place] [address] [place] [address] [email or web address] Cardiology 08/22/23 Jose Cruz MD [address] [place] [address], [address] [address] Cardiology 08/22/23 Laura Mock MD, DMD 1 [facility] [address] [place] [address] [email or web address] Partners Attributed Provider 09/01/21 07/03/23 [facility] [phone]. Consulting Provider 08/22/23 CAROLANN GREWAL Connect 12/24/23 03/11/24 Cyril Morales [address] [place] [address] Nurse Practitioner 02/27/24 documented as of this encounter Additional Source Comments The information contained in this document represents components of the legal health record. It is not the complete legal health record.[facility]
--- OUTSIDE RECORDS SUMMARY | 2024-12-22 16:14 | XMS_ITS | Encounter Summary ---
Author Organization [facility] Address [address] [place] [address] [place] [address] Phone Care Team Providers Care Customer Response Representative Name Role Phone Rina Swenson MD Unavailable Laura Mock MD, DMD Primary Car e Provider Laura Mock MD, DMD Unavailable Laura Mock MD, DMD Unavailable Jakob Bob MD Unavailable [phone] Jose Cruz MD Unavailable Laura Mock MD, DMD Unavailable Pcp, Unknown Primary Care Provider UnavailLaura Ascencio MD, DMD Primary Car e Provider Pcp, Unknown Primary Care Provider UnavailNicole Arguello MD Primary Care Provide r Laura Mock MD, DMD Primary Car e Provider Encounter Details Date Type Department Care Team (Late st Contact Info) Description 07/18/2022 Anti-coag visit [facility] Anticoagulation Clinic [address] [place] [phone] Kenyatta [email or web address] Social History Tobacco Use Types Packs/Day Years [...] Description 01/05/2025 11:00 AM EST Pre-Admission Testing [address] 2nd [place] [address] Irineo Ruff MD [address] [place] [address] [email or web address] 01/10/2025 Procedure Pass [facility] Endoscopy Department [address] [place] [address] 01/10/2025 7:30 AM EST Hospital Encounter [facility] Endoscopy Department [address] [place] [address] Irineo Ruff MD [address] [place] [address] [email or web address] 01/10/2025 7:30 AM EST - 01/10/2025 8:15 AM EST Surgery [facility] Endoscopy Department [address] [place] [address] Irineo Ruff MD [address] [facility] [place] [address] [email or web address] COLONOSCOPY 01/31/2025 1:00 PM EST Office [place] [facility] Cardiovascular Medicine [address] [facility], 5th Floor, [address] [place] [address] Karena Betancur MD [address] [facility] [address] [place] [address] [email or web address] Scheduled Procedures Name Priority Associated [...] documented as of this encounter Care Teams Customer Response Representative Relationship Specialty Start Date End Date Laura Mock MD, DMD [address] [address] [email or web address] so PCP - General Internal Medicine 06/04/21 11/11/23 Pcp, Unknown PCP - General 11/12/23 11/16/23 Laura Mock MD, DMD 1 [facility] [address] [place] [address] [email or web address] PCP - General Internal Medicine 11/17/23 12/28/23 Pcp, Unknown PCP - General 02/28/24 03/04/24 [place] [address] [address] PCP - General 03/05/24 05/17/24 Laura Mock MD, DMD [address] [address] [email or web address] du PCP - General Internal Medicine 05/18/24 Rina Swenson MD Psychiatry 07/09/17 Laura Mock MD, DMD [address] [address] [email or web address] du Partners Attributed Provider 09/01/21 07/03/23 Laura Mock MD, DMD [address] [address] [email or web address] du Insurance Assigned Provider 05/31/23 03/01/24 Jakob Bob MD [address] [place] [address] [place] [address] [email or web address] Cardiology 08/22/23 Jose Cruz MD [address] [place] [address], [address] [place] [address] Cardiology 08/22/23 Laura Mock MD, DMD [address] [address] [email or web address] Partners Attributed Provider 09/01/21 07/03/23 [facility] [phone]. Consulting Provider 08/22/23 [facility] Connect 12/24/23 03/11/24 Cyril Morales [facility] [place] [address] Nurse Practitioner 02/27/24 documented as of this encounter Additional Source Comments The information contained in this document represents components of the legal health record. It is not the complete legal health record.[facility]
--- OUTSIDE RECORDS SUMMARY | 2024-12-22 16:14 | XMS_ITS | Encounter Summary ---
Author Organization [facility] Address [facility] [employer] [facility] [address] [place] [address] Phone Care Team Providers Care Recruiter Specialist Name Role Phone Artie Meehan MD Unavailable Rina Swenson MD Unavailable Laura Mock MD, DMD Primary Car e Provider Laura Mock MD, DMD Unavailable Laura Mock MD, DMD Unavailable Jakob Bob MD Unavailable [phone] Jose Cruz MD Unavailable Laura Mock MD, DMD Unavailable Pcp, Unknown Primary Care Provider UnavailLaura Ascencio MD, DMD Primary Car e Provider Pcp, Unknown Primary Care Provider UnavailNicole Arguello MD Primary Care Provide r Laura Mock MD, DMD Primary Car e Provider Encounter Details Date Type Department Care Team (Late st Contact Info) Description 09/07/2021 Anti-coag visit [facility] Anticoagulation Clinic [address] [place] [address] Kenyatta Gamez, PharmD [email or web address] Social History Tobacco Use [...] 01/05/2025 11:00 AM EST Pre-Admission Testing [address] 2[address] [place] [address] Irineo Ruff MD [address] [place] [address] [place] [address] [email or web address] 01/10/2025 Procedure Pass [facility] Endoscopy Department [address] [place] [address] 01/10/2025 7:30 AM EST Hospital Encounter [facility] Endoscopy Department [address] [place] [address] Irineo Ruff MD [address] [place] [address] WALI@[email or web address] 01/10/2025 7:30 AM EST - 01/10/2025 8:15 AM EST Surgery [facility] Endoscopy Department [address] [place] [address] Irineo Ruff MD [address] [place] [address] WALI@[facility] COLONOSCOPY 01/31/2025 1:00 PM EST Office [place] [facility] [place] [address] [place] [address], 5th Floor, [address] [place] [address] Karena Betancur MD [address] [place] [address] [email or web address] Scheduled Procedures Name Priority Associated Diagnoses [...] documented as of this encounter Care Teams Recruiter Specialist Relationship Specialty Start Date End Date Laura Mock MD, DMD 1 [facility] [address] [place] [address] [email or web address] du PCP - General Internal Medicine 06/04/21 11/11/23 Pcp, Unknown PCP - General 11/12/23 11/16/23 Laura Mock MD, DMD 1 [facility] [address] [place] [address] [email or web address] PCP - General Internal Medicine 11/17/23 12/28/23 Pcp, Unknown PCP - General 02/28/24 03/04/24 [place] [address] [address] PCP - General 03/05/24 05/17/24 Laura Mock MD, DMD [address] [address] [email or web address] PCP - General Internal Medicine 05/18/24 Artie Meehan MD [address] [place] [address] Dr [address] [place] [address] Internal Medicine 10/26/17 04/23/22 Rina Swenson MD [address] [place] [address] [place] [address] Psychiatry 07/09/17 Laura Mock MD, DMD [address] [address] [email or web address] Partners Attributed Provider 09/01/21 07/03/23 Laura Mock MD, DMD [address] [address] [email or web address] du Insurance Assigned Provider 05/31/23 03/01/24 Jakob Bob MD [address] [place] [address] [email or web address] Cardiology 08/22/23 Jose Cruz MD [address] [place] [address] Cardiology 08/22/23 Laura Mock MD, DMD [address] [address] [email or web address] Partners Attributed Provider 09/01/21 07/03/23 [facility] [phone]. Consulting Provider 08/22/23 [facility] Connect 12/24/23 03/11/24 Cyril Morales [address] [place] [address] Nurse Practitioner 02/27/24 documented as of this encounter Additional Source Comments The information contained in this document represents components of the legal health record. It is not the complete legal health record.[facility]
--- OUTSIDE RECORDS SUMMARY | 2024-12-22 16:14 | XMS_ITS | Encounter Summary ---
Author Organization [facility] Address [address] [place] [address] Phone Care Team Providers Care Chief Deputy Name Role Phone Artie Meehan MD Unavailable [...] Mengyan, PharmD [address] [place] [address] [email or web address] Social History Tobacco Use Types Packs/Day Years [...] Upcoming Encounters Date Type Department Care Team ([facility] st Contact Info) Description 01/05/2025 11:00 AM EST Pre-Admission Testing [address] [address] Irineo Ruff MD [address] [place] [address] [place] [address] [email or web address] 01/10/[address] [facility] Endoscopy Department [address] [place] [address] 01/10/2025 7:30 AM EST Hospital Encounter [facility] Endoscopy Department [address] [place] [address] Irineo Ruff MD [address] [place] [address] [place] [address] [email or web address] 01/10/2025 7:30 AM EST - 01/10/2025 8:[address] [facility] Endoscopy Department [address] [place] [address] Irineo Ruff MD [address] [place] [address] WALI@[facility] COLONOSCOPY 01/31/2025 1:00 PM EST Office Visit [facility] Cardiovascular Medicine [address] [place] [address], 5th Floor, [address] [place] [address] Karena Betancur MD [address] [facility] [address] [place] [address] [email or web address] Scheduled Procedures Name Priority Associated Diagnoses Date/Ti [...] as of this encounter Care Teams Chief Deputy Relationship Specialty Start Date End Date Laura Mock MD, DMD [address] [address] [email or web address] du PCP - General Internal Medicine 06/04/21 11/11/23 Pcp, Unknown PCP - General 11/12/23 11/16/23 Laura Mock MD, DMD [address] [address] [email or web address] du PCP - General Internal Medicine 11/17/23 12/28/23 Pcp, Unknown PCP - General 02/28/24 03/04/24 [place] [address] [address] PCP - General 03/05/24 05/17/24 Laura Mock MD, DMD [address] [address] [email or web address] du PCP - General Internal Medicine 05/18/24 Artie Meehan MD [address] [place] [address] [place] [address] Internal Medicine 10/26/17 04/23/22 Rina Swenson MD [address] [place] [address] [place] [address] Psychiatry 07/09/17 Laura Mock MD, DMD [address] [address] [email or web address] du Partners Attributed Provider 09/01/21 07/03/23 Laura Mock MD, DMD [address] [address] [email or web address] du Insurance Assigned Provider 05/31/23 03/01/24 Jakob Bob MD [address] [place] [address] [email or web address] Cardiology 08/22/23 Jose Cruz MD [address] [place] [address] Cardiology 08/22/23 Laura Mock MD, DMD [address] [address] [email or web address] Partners Attributed Provider 09/01/21 07/03/23 [facility] [phone]. Consulting Provider 08/22/23 [facility] Connect 12/24/23 03/11/24 Cyril Morales [address] [place] [address] Nurse Practitioner 02/27/24 documented as of this encounter Additional Source Comments The information contained in this document represents components of the legal health record. It is not the complete legal health record.[facility]
--- OUTSIDE RECORDS SUMMARY | 2024-12-22 16:14 | XMS_ITS | Encounter Summary ---
Author Organization [facility] Address [address] [facility] [address] [place] [address] Phone Care Team Providers Care Musical String Maker Name Role Phone Rina Swenson MD Unavailable Laura Mock MD, DMD Primary Car e Provider Laura Mock MD, DMD Unavailable Laura Mock MD, DMD Unavailable Jakob Bob MD Unavailable [phone] Jose Cruz MD Unavailable Laura Mock MD, DMD Unavailable Pcp, Unknown Primary Care Provider UnavailLaura Ascencio MD, DMD Primary Car e Provider Pcp, Unknown Primary Care Provider UnavailNicole Arguello MD Primary Care Provide r Laura Mock MD, DMD Primary Car e Provider Encounter Details Date Type Department Care Team (Late st Contact Info) Description 07/26/2022 Anti-coag visit [facility] Anticoagulation Clinic [address] [place], [place] [id number] Melvin Stewart, LTAC, [facility] [address] [place] [address] [email or web address] Social History Tobacco Use Types [...] Description 01/05/2025 11:00 AM EST Pre-Admission Testing [facility] [address] [facility] 2nd [place] [address] Irineo Ruff MD [address] [place] [address] [place] [address] [email or web address] 01/10/2025 Procedure Pass [facility] Endoscopy Department [address] [place] [address] 01/10/2025 7:30 AM EST Hospital Encounter [facility] Endoscopy Department [address] [place] [address] Irineo Ruff MD [address] [place] [address] [place] [address] [email or web address] 01/10/2025 7:30 AM EST - 01/10/2025 8:15 AM EST Surgery [facility] Endoscopy Department [address] [place] [address] Irineo Ruff MD 75 [facility] [place] [address] [email or web address] COLONOSCOPY 01/31/2025 1:00 PM EST Office Visit [facility] Cardiovascular Medicine [address] [facility], 5th Floor, [address] [place] [address] Karena Betancur MD 55 [facility] 5[address] [place] [address] FRANK@[email or web address] Scheduled Procedures Name [...] documented as of this encounter Care Teams Musical String Maker Relationship Specialty Start Date End Date Laura Mock MD, DMD 1 [facility] [address] [place] [address] [email or web address] PCP - General Internal Medicine 06/04/21 11/11/23 Pcp, Unknown PCP - General 11/12/23 11/16/23 Laura Mock MD, DMD 1 [facility] [address] [place] [address] [email or web address] du PCP - General Internal Medicine 11/17/23 12/28/23 Pcp, Unknown PCP - General 02/28/24 03/04/24 [place] [address] [place] [address] PCP - General 03/05/24 05/17/24 Laura Mock MD, DMD [address] [address] [email or web address] du PCP - General Internal Medicine 05/18/24 Rina Swenson MD Psychiatry 07/09/17 Laura Mock MD, DMD [address] [address] [email or web address] du Partners Attributed Provider 09/01/21 07/03/23 Laura Mock MD, DMD [address] [address] [email or web address] du Insurance Assigned Provider 05/31/23 03/01/24 Jakob Bob MD [address] [place] [address] [place] [address] [email or web address] Cardiology 08/22/23 Jose Cruz MD [address] [place] [address], [facility] [address] [place] [address] Cardiology 08/22/23 Laura Mock MD, DMD 1 [facility] [address] [place] [address] [email or web address] Partners Attributed Provider 09/01/21 07/03/23 [facility] [phone]. Consulting Provider 08/22/23 [facility] Connect 12/24/23 03/11/24 Cyril Morales [facility] [place] [address] Nurse Practitioner 02/27/24 documented as of this encounter Additional Source Comments The information contained in this document represents components of the legal health record. It is not the complete legal health record.[facility]
--- OUTSIDE RECORDS SUMMARY | 2024-12-22 16:14 | XMS_ITS | Encounter Summary ---
Author Organization [facility] Address [facility] [address] [address] Phone Care Team Providers Care Senior Technical Recruiter Name Role Phone Rina Swenson MD Unavailable [...] 01/05/2025 11:00 AM EST Pre-Admission Testing [address] [address] Irineo Ruff MD [address] [place] [address] [email or web address] 01/10/2025 Procedure Pass [facility] Endoscopy Department [address] [place] [address] 01/10/2025 7:30 AM EST Hospital Encounter [facility] Endoscopy Department [address] [place] [address] Irineo Ruff MD [address] [place] [address] WALI@[email or web address] 01/10/2025 7:30 AM EST - 01/10/2025 8:15 AM EST Surgery [facility] Endoscopy Department [address] [place] [address] Irineo Ruff MD [address] [place] [address] WALI@[email or web address] COLONOSCOPY 01/31/2025 1:00 PM EST Office Visit [facility] Cardiovascular Medicine 32 [facility], 5th Floor, [address] [place] [address] Karena Betancur MD 55 [facility] [address] [place] [address] [email or web address] [email or web address] Scheduled [...] as of this encounter Care Teams Senior Technical Recruiter Relationship Specialty Start Date End Date Laura Mock MD, DMD [address] [address] [email or web address] du PCP - General Internal Medicine 06/04/21 11/11/23 Pcp, Unknown PCP - General 11/12/23 11/16/23 Laura Mock MD, DMD [address] [address] [email or web address] PCP - General Internal Medicine 11/17/23 12/28/23 Pcp, Unknown PCP - General 02/28/24 03/04/24 Nicole Newell MD [address] [place] [id number] PCP - General 03/05/24 05/17/24 Laura Mock MD, DMD [address] [address] [email or web address] du PCP - General Internal Medicine 05/18/24 Rina Swenson MD Psychiatry 07/09/17 Laura Mock MD, DMD [address] [address] [email or web address] Partners Attributed Provider 09/01/21 07/03/23 Laura Mock MD, DMD [address] [address] [email or web address] du Insurance Assigned Provider 05/31/23 03/01/24 Jakob Bob MD [address] [facility] [place] [address] [email or web address] Cardiology 08/22/23 Jose Cruz MD [address] [place] [address] Cardiology 08/22/23 Laura Mock MD, DMD [address] [address] [email or web address] du Partners Attributed Provider 09/01/21 07/03/23 [facility] [phone]. Consulting Provider 08/22/23 [facility] Connect 12/24/23 03/11/24 Cyril Morales [address] [place] [address] Nurse Practitioner 02/27/24 documented as of this encounter Additional Source Comments The information contained in this document represents components of the legal health record. It is not the complete legal health record.[facility]
--- OUTSIDE RECORDS SUMMARY | 2024-12-22 16:14 | XMS_ITS | Encounter Summary ---
Author Organization [facility] Address [address] [place] [address] [place] [address] Phone Care Team Providers Care Assistant Professor Name Role Phone Rina Swenson MD Unavailable [...] st Contact Info) Description 01/21/2023 Anti-coag visit [facility] Anticoagulation Clinic [address] [place] [address] Purvi Lawler, PharmD [address] [place] [address] [email or web address] Social History Tobacco Use [...] EST Pre-Admission Testing [facility] [address] [facility] 2nd [place] [address] Irineo Ruff MD [address] [place] [address] [place] [address] [email or web address] 01/10/2025 Procedure Pass [facility] Endoscopy Department [address] [place] [address] 01/10/2025 7:30 AM EST Hospital Encounter [facility] Endoscopy Department [address] [place] [address] Irineo Ruff MD [address] [place] [address] WALI@[facility] 01/10/2025 7:30 AM EST - 01/10/2025 8:15 AM EST Surgery [facility] Endoscopy Department [address] [place] [address] Irineo Ruff MD 75 [facility] [place] [address] WALI@[facility] COLONOSCOPY 01/31/2025 1:00 PM EST Office Visit [facility] Cardiovascular Medicine 32 [facility], 5th Floor, [address] [place] [address] Karena Betancur MD 55 [facility] 5[address] [place] [address] FRANK@[email or web address] Scheduled Procedures Name Priority Associated Diagnoses [...] as of this encounter Care Teams Assistant Professor Relationship Specialty Start Date End Date Laura Mock MD, DMD 1 [facility] [address] [place] [address] [email or web address] PCP - General Internal Medicine 06/04/21 11/11/23 Pcp, Unknown PCP - General 11/12/23 11/16/23 Laura Mock MD, DMD 1 [facility] [address] [place] [address] [email or web address] du PCP - General Internal Medicine 11/17/23 12/28/23 Pcp, Unknown PCP - General 02/28/24 03/04/24 [place] [address] [place] [address] PCP - General 03/05/24 05/17/24 Laura Mock MD, DMD [address] [address] [email or web address] du PCP - General Internal Medicine 05/18/24 Rina Swenson MD Psychiatry 07/09/17 Laura Mock MD, DMD [address] [address] [email or web address] du Partners Attributed Provider 09/01/21 07/03/23 Laura Mock MD, DMD [address] [address] [email or web address] du Insurance Assigned Provider 05/31/23 03/01/24 Jakob Bob MD [address] [place] [address] [place] [address] [email or web address] Cardiology 08/22/23 Jose Cruz MD [address] [place] [address], [facility] [address] [place] [address] Cardiology 08/22/23 Laura Mock MD, DMD 1 [facility] [address] [place] [address] [email or web address] Partners Attributed Provider 09/01/21 07/03/23 [facility] [phone]. Consulting Provider 08/22/23 [facility] Connect 12/24/23 03/11/24 Cyril Morales [facility] [place] [address] Nurse Practitioner 02/27/24 documented as of this encounter Additional Source Comments The information contained in this document represents components of the legal health record. It is not the complete legal health record.[facility]
--- OUTSIDE RECORDS SUMMARY | 2024-12-22 16:14 | XMS_ITS | Encounter Summary ---
Author Organization [facility] Address [address] [facility] [address] [place] [address] Phone Care Team Providers Care Social Media Job Titles Name Role Phone Rina Swenson MD Unavailable Laura Mock MD, DMD Primary Car e Provider Laura Mock MD, DMD Unavailable Laura Mock MD, DMD Unavailable Jakob Bob MD Unavailable Jose Cruz MD Unavailable [phone] Laura Mock MD, DMD Unavailable Pcp, Unknown Primary Care Provider UnavailLauar Ascencio MD, DMD Primary Car e Provider Pcp, Unknown Primary Care Provider UnavailNicole Arguello MD Primary Care Provide r Laura Mock MD, DMD Primary Car e Provider Encounter Details Date Type Department Care Team (Late st Contact Info) Description 12/25/2022 Procedure Pass [address] [address] Social History Tobacco Use Types Packs/Day Years [...] Description 01/05/2025 11:00 AM EST Pre-Admission Testing [address] [address] Irineo Ruff MD [address] [place] [address] [email or web address]@[email or web address] 01/10/2025 Procedure Pass [facility] Endoscopy Department [address] [place] [address] 01/10/2025 7:30 AM EST Hospital Encounter [facility] Endoscopy Department [address] [place] [address] Irineo Ruff MD [address] [place] [address] WALI@[facility] 01/10/2025 7:30 AM EST - 01/10/2025 8:15 AM EST Surgery [facility] Endoscopy Department [address] [place] [address] Irineo Ruff MD [address] [place] [address] [email or web address]@[facility] COLONOSCOPY 01/31/2025 1:00 PM EST Office Visit [facility] Cardiovascular Medicine 32 [facility], 5th Floor, [address] [place] [address] Karena Betancur MD 55 [facility] [address] [place] [address] FRANK@[email or web address] Scheduled Procedures Name Priority Associated [...] documented as of this encounter Care Teams Social Media Job Titles Relationship Specialty Start Date End Date Laura Mock MD, DMD [address] [address] [email or web address] PCP - General Internal Medicine 06/04/21 11/11/23 Pcp, Unknown PCP - General 11/12/23 11/16/23 Laura Mock MD, DMD 1 [facility] 225 [place] [address] [email or web address] PCP - General Internal Medicine 11/17/23 12/28/23 Pcp, Unknown PCP - General 02/28/24 03/04/24 [place] [address] [address] PCP - General 03/05/24 05/17/24 Laura Mock MD, DMD [address] [address] [email or web address] du PCP - General Internal Medicine 05/18/24 Rina Swenson MD Psychiatry 07/09/17 Laura Mock MD, DMD [address] [address] [email or web address] Partners Attributed Provider 09/01/21 07/03/23 Laura Mock MD, DMD [address] [address] [email or web address] du Insurance Assigned Provider 05/31/23 03/01/24 Jakob Bob MD [facility] [place] [address] [email or web address] Cardiology 08/22/23 Jose Cruz MD [address] [place] [address], [address] [place] [address] Cardiology 08/22/23 Laura Mock MD, DMD [address] [address] [email or web address] Partners Attributed Provider 09/01/21 07/03/23 [facility] [phone]. Consulting Provider 08/22/23 [facility] Connect 12/24/23 03/11/24 Cyril Morales [facility] [place] [address] Nurse Practitioner 02/27/24 documented as of this encounter Additional Source Comments The information contained in this document represents components of the legal health record. It is not the complete legal health record.[facility]
--- OUTSIDE RECORDS SUMMARY | 2024-12-22 16:14 | XMS_ITS | Encounter Summary ---
Author Organization [facility] Address [address] [employer] [address] [place] [address] Phone Care Team Providers Care Curing Machine Operator Name Role Phone Rina Swenson [...] st Contact Info) Description 08/26/2023 Procedure Pass [facility] Endoscopy Department [address] [place] [address] Social History Tobacco Use Types Packs/Day [...] Description 01/05/2025 11:00 AM EST Pre-Admission Testing [address] 2nd [place] [address] Irineo Ruff MD [address] [place] [address] [email or web address] 01/10/2025 Procedure Pass [facility] Endoscopy Department [address] [place] [address] 01/10/2025 7:30 AM EST Hospital Encounter [facility] Endoscopy Department [address] [place] [address] Irineo Ruff MD [address] [place] [address] WALI@[facility] 01/10/2025 7:30 AM EST - 01/10/2025 8:15 AM EST Surgery [facility] Endoscopy Department [address] [place] [address] Irineo Ruff MD [address] [place] [address] WALI@[facility] COLONOSCOPY 01/31/2025 1:00 PM EST Office Visit [facility] Cardiovascular Medicine [address] [place] [address], 5th Floor, [address] [place] [address] Karena Betancur MD 55 [facility] [address] [place] [address] FRANK@[email or web address] Scheduled Procedures Name Priority Associated Diagnoses [...] documented as of this encounter Care Teams Curing Machine Operator Relationship Specialty Start Date End Date Laura Mock MD, DMD 1 [facility] 225 [place] [address] [email or web address] du PCP - General Internal Medicine 06/04/21 11/11/23 Pcp, Unknown PCP - General 11/12/23 11/16/23 Laura Mock MD, DMD 1 [facility] 225 [place] [address] [email or web address] du PCP - General Internal Medicine 11/17/23 12/28/23 Pcp, Unknown PCP - General 02/28/24 03/04/24 Nicole Newell MD [address] [place] [address] PCP - General 03/05/24 05/17/24 Laura Mock MD, DMD 1 [facility] [address] [place] [address] [email or web address] so PCP - General Internal Medicine 05/18/24 Rina Swenson MD Psychiatry 07/09/17 Laura Mock MD, DMD [address] [address] [email or web address] so Insurance Assigned Provider 05/31/23 03/01/24 Jakob Bob MD [address] [place] [address] [email or web address] Cardiology 08/22/23 Jose Cruz MD [address] [place] [address], [facility] [address] [place] [address] [email or web address] Cardiology 08/22/23 [facility] [phone]. Consulting Provider 08/22/23 [facility] Connect 12/24/23 03/11/24 Cyril Morales [address] [place] [address] Nurse Practitioner 02/27/24 documented as of this encounter Additional Source Comments The information contained in this document represents components of the legal health record. It is not the complete legal health record.[facility]
--- OUTSIDE RECORDS SUMMARY | 2024-12-22 16:14 | XMS_ITS | Encounter Summary ---
Author Organization [facility] Address [facility] [employer] [facility] [address] [place] [address] Phone Care Team Providers Care Head Of History Name Role Phone Artie Meehan MD Primary Care Provider Artie Meehan MD Unavailable [phone] Rina Swenson MD Unavailable Laura Mock MD, DMD Primary Car e Provider Laura Mock MD, DMD Unavailable Laura Mock MD, DMD Unavailable Jakob Bob MD Unavailable Jose Cruz MD Unavailable [phone] Laura Mock MD, DMD Unavailable Pcp, Unknown Primary Care Provider UnavailLaura Ascencio MD, DMD Primary Car e Provider Pcp, Unknown Primary Care Provider UnavailNicole Arguello MD Primary Care Provide r Laura Mock MD, DMD Primary Car e Provider Encounter Details Date Type Department Care Team (Late st Contact Info) Description 12/16/2019 Procedure Pass [address] [address] Social History Tobacco Use Types Packs/Day Years [...] 01/05/2025 11:00 AM EST Pre-Admission Testing [address] 2nd [place] [address] Irineo Ruff MD [address] [place] [address] [place] [address] [email or web address] 01/10/2025 Procedure Pass [facility] Endoscopy Department [address] [place] [address] 01/10/2025 7:30 AM EST Hospital Encounter [facility] Endoscopy Department [address] [place] [address] Irineo Ruff MD [address] [place] [address] [place] [address] [email or web address] 01/10/2025 7:30 AM EST - 01/10/2025 8:15 AM EST Surgery [facility] Endoscopy Department [address] [place] [address] Irineo Ruff MD [address] [place] [address] [place] [address] [email or web address]@[facility] COLONOSCOPY 01/31/2025 1:00 PM EST Office Visit [facility] Cardiovascular Medicine [address] [place] [address], 5th Floor, [address] [place] [address] Karena Betancur MD [address] [place] [address] [email or web address] Scheduled Procedures Name Priority Associated [...] as of this encounter Care Teams Head Of History Relationship Specialty Start Date End Date Artie Meehan MD [address] [place] [address] PCP - General Internal Medicine 10/26/17 06/03/21 Laura Mock MD, DMD [address] [address] [email or web address] PCP - General Internal Medicine 06/04/21 11/11/23 Pcp, Unknown PCP - General 11/12/23 11/16/23 Laura Mock MD, DMD [address] [address] [email or web address] PCP - General Internal Medicine 11/17/23 12/28/23 Pcp, Unknown PCP - General 02/28/24 03/04/24 Nicole Newell MD [address] [place] [address] PCP - General 03/05/24 05/17/24 Laura Mock MD, DMD [address] [address] [email or web address] du PCP - General Internal Medicine 05/18/24 Artie Meehan MD [address] [place] [address] [address] [place] [address] Internal Medicine 10/26/17 04/23/22 Rina Swenson MD [address] [place] [address] Dr [address] [place] [address] Psychiatry 07/09/17 Laura Mock MD, DMD [address] [address] [email or web address] du Partners Attributed Provider 09/01/21 07/03/23 Laura Mock MD, DMD [address] [address] [email or web address] du Insurance Assigned Provider 05/31/23 03/01/24 Jakob Bob MD [address] [place], [place] [address] [place] [address] [email or web address] Cardiology 08/22/23 Jose Cruz MD [address] [place] [address], [facility] [address] [place] [address] Cardiology 08/22/23 Laura Mock MD, DMD 1 [facility] [address] [place] [address] [email or web address]. [email or web address] Partners Attributed Provider 09/01/21 07/03/23 [facility] [phone]. Consulting Provider 08/22/23 [facility] Connect 12/24/23 03/11/24 Cyril Morales [address] [place] [address] Nurse Practitioner 02/27/24 documented as of this encounter Additional Source Comments The information contained in this document represents components of the legal health record. It is not the complete legal health record.[facility]
--- OUTSIDE RECORDS SUMMARY | 2024-12-22 16:14 | XMS_ITS | Encounter Summary ---
Author Organization [facility] Address [facility] [employer] [facility] [address] [place] [address] Phone Care Team Providers Care Sales Representatives Name Role Phone Artie Meehan MD Primary Care Provider Artie Meehan MD Unavailable [phone] Rina Swenson MD Unavailable Laura Mock MD, [...] Info) Description 04/06/2019 Ancillary Orders Virtual Department [address] [place] [address] Artie Meehan MD [address] [place] [address] [place] [address] Menopausal state Social History Tobacco Use Types [...] 01/05/2025 11:00 AM EST Pre-Admission Testing [address] [address] Irineo Ruff MD [address] [place] [address] [email or web address] 01/10/[address] [facility] Endoscopy Department [address] [place] [address] 01/10/2025 7:30 AM EST Hospital Encounter [facility] Endoscopy Department [address] [place] [address] Irineo Ruff MD [address] [place] [address] [email or web address]@[email or web address] 01/10/2025 7:30 AM EST - 01/10/2025 8:[address] [facility] Endoscopy Department [address] [place] [address] Irineo Ruff MD [address] [place] [address] [place] [address] [email or web address]@[email or web address] COLONOSCOPY 01/31/2025 1:00 PM EST Office [place] [facility] [place] [address] [facility], 5th Floor, [address] [place] [address] Karena Betancur MD 55 [facility] [address] [place] [address] FRANK@[email or web address] Scheduled Procedures [...] documented as of this encounter Care Teams Sales Representatives Relationship Specialty Start Date End Date Artie Meehan MD [address] [place] [address] [address] [place] [address] PCP - General Internal Medicine 10/26/17 06/03/21 Laura Mock MD, DMD [address] [address] [email or web address] PCP - General Internal Medicine 06/04/21 11/11/23 Pcp, Unknown PCP - General 11/12/23 11/16/23 Laura Mock MD, DMD [address] [address] [email or web address] PCP - General Internal Medicine 11/17/23 12/28/23 Pcp, Unknown PCP - General 02/28/24 03/04/24 [place] [address] [address] PCP - General 03/05/24 05/17/24 Laura Mock MD, DMD [address] [address] [email or web address] du PCP - General Internal Medicine 05/18/24 Artie Meehan MD [address] [place] [address] Dr Dior [facility] [place] [address] Internal Medicine 10/26/17 04/23/22 Rina Swenson MD [address] [place] [address] [address] [place], [place] [address] [address] Psychiatry 07/09/17 Laura Mock MD, DMD [address] [address] [email or web address] Partners Attributed Provider 09/01/21 07/03/23 Laura Mock MD, DMD [address] [address] [email or web address] du Insurance Assigned Provider 05/31/23 03/01/24 Jakob Bob MD [address] [place], [place] [address] [place] [address] [email or web address] Cardiology 08/22/23 Jose Cruz MD 22 [facility], [address] [place] [address] Cardiology 08/22/23 Laura Mock MD, DMD 1 [facility] [address] [place] [address] [email or web address] Partners Attributed Provider 09/01/21 07/03/23 [place] [facility] [phone]. Consulting Provider 08/22/23 CAROLANN GREWAL Connect 12/24/23 03/11/24 Cyril Morales [address] [place] [address] Nurse Practitioner 02/27/24 documented as of this encounter Additional Source Comments The information contained in this document represents components of the legal health record. It is not the complete legal health record.[facility]
--- OUTSIDE RECORDS SUMMARY | 2024-12-22 16:14 | XMS_ITS | Encounter Summary ---
Author Organization [facility] Address [facility] [employer] [place] [facility] [address] [place] [address] Phone Care Team Providers Care Aquatic Performer Name Role Phone Artie Meehan MD Primary Care Provider Artie Meehan MD Unavailable [phone] Rina Swenson MD Unavailable Laura Mock MD, [...] Info) Description 12/16/2019 Ancillary Orders Virtual Department [address] [place] [address] Artie Meehan MD [address] [place] [address] [place] [address] Breast screening Social History Tobacco Use Types [...] 01/05/2025 11:00 AM EST Pre-Admission Testing [address] [address] Irineo Ruff MD [address] [place] [address] [email or web address] 01/10/2025 Procedure Pass [facility] Endoscopy Department [address] [place] [address] 01/10/2025 7:30 AM EST Hospital Encounter [facility] Endoscopy Department [address] [place] [address] Irineo Ruff MD [address] [place] [address] [email or web address] 01/10/2025 7:30 AM EST - 01/10/2025 8:15 AM EST Surgery [facility] Endoscopy Department [address] [place] [address] Irineo Ruff MD [address] [place] [address] [place] [address] [email or web address] COLONOSCOPY 01/31/2025 1:00 PM EST Office Visit [facility] Cardiovascular Medicine 32 [facility], 5th Floor, [address] [place] [address] Karena Betancur MD 55 [facility] [address] [place] [address] FRANK@[email or web address] Scheduled Procedures Name Priority Associated [...] documented as of this encounter Care Teams Aquatic Performer Relationship Specialty Start Date End Date Artie Meehan MD [address] [place] [address] [address] PCP - General Internal Medicine 10/26/17 06/03/21 Laura Mock MD, DMD [address] [address] [email or web address] du PCP - General Internal Medicine 06/04/21 11/11/23 Pcp, Unknown PCP - General 11/12/23 11/16/23 Laura Mock MD, DMD [address] [address] [email or web address] du PCP - General Internal Medicine 11/17/23 12/28/23 Pcp, Unknown PCP - General 02/28/24 03/04/24 Nicole Newell [place] [address] [place] [address] PCP - General 03/05/24 05/17/24 Laura Mock MD, DMD [address] [address] [email or web address] du PCP - General Internal Medicine 05/18/24 Artie Meehan MD [address] [place] [address] [place] [address] Internal Medicine 10/26/17 04/23/22 Rina Swenson MD [address] [place] [address] [place] [address] Psychiatry 07/09/17 Laura Mock MD, DMD [address] [address] [email or web address] du Partners Attributed Provider 09/01/21 07/03/23 Laura Mock MD, DMD [address] [address] [email or web address] du Insurance Assigned Provider 05/31/23 03/01/24 Jakob Bob MD [address] [place] [address] [place] [address] [email or web address] Cardiology 08/22/23 Jose Cruz MD [address] [place] [address], [facility] [address] [place] [address] Cardiology 08/22/23 Laura Mock MD, DMD 1 [facility] [address] [place] [address] [email or web address]. [email or web address] Partners Attributed Provider 09/01/21 07/03/23 [facility] [phone]. Consulting Provider 08/22/23 [facility] Connect 12/24/23 03/11/24 Cyril Morales [address] [place] [address] Nurse Practitioner 02/27/24 documented as of this encounter Additional Source Comments The information contained in this document represents components of the legal health record. It is not the complete legal health record.[facility]
--- OUTSIDE RECORDS SUMMARY | 2024-12-22 16:14 | XMS_ITS | Encounter Summary ---
Author Organization [facility] Address [facility] [employer] [address] [address] Phone Care Team Providers Care Space Buyer Name Role Phone Rina Swenson MD Unavailable Laura Mock MD, DMD Primary Car e Provider Laura Mock MD, DMD Unavailable Laura Mock MD, DMD Unavailable Jakob Bob MD Unavailable Jose Cruz MD Unavailable [phone] Laura Mock MD, DMD Unavailable Pcp, Unknown [...] 01/05/2025 11:00 AM EST Pre-Admission Testing [address] [address] Irineo Ruff MD [address] [place] [address] [email or web address] 01/10/2025 Procedure Pass [facility] Endoscopy Department [address] [place] [address] 01/10/2025 7:30 AM EST Hospital Encounter [facility] Endoscopy Department [address] [place] [address] Irineo Ruff MD [address] [place] [address] [email or web address]@[email or web address] 01/10/2025 7:30 AM EST - 01/10/2025 8:15 AM EST Surgery [facility] Endoscopy Department [address] [place] [address] Irineo Ruff MD [address] [place] [address] WALI@[email or web address] COLONOSCOPY 01/31/2025 1:00 PM EST Office Visit [facility] Cardiovascular Medicine 32 [facility], 5th Floor, [address] [place] [address] Karena Betancur MD 55 [facility] [address] [place] [address] FRANK@[email or web address] [...] documented as of this encounter Care Teams Space Buyer Relationship Specialty Start Date End Date Laura Mock MD, DMD [address] [address] [email or web address] du PCP - General Internal Medicine 06/04/21 11/11/23 Pcp, Unknown PCP - General 11/12/23 11/16/23 Laura Mock MD, DMD [address] [address] [email or web address] PCP - General Internal Medicine 11/17/23 12/28/23 Pcp, Unknown PCP - General 02/28/24 03/04/24 Nicole Newell MD [address] [place] [address] PCP - General 03/05/24 05/17/24 Laura Mock MD, DMD [address] [address] [email or web address] du PCP - General Internal Medicine 05/18/24 Rina Swenson MD Psychiatry 07/09/17 Laura Mock MD, DMD [address] [address] [email or web address] Partners Attributed Provider 09/01/21 07/03/23 Laura Mock MD, DMD [address] [address] [email or web address] du Insurance Assigned Provider 05/31/23 03/01/24 Jakob Bob MD [address] [facility] [place] [address] [email or web address] Cardiology 08/22/23 Jose Cruz MD [address] [place] [address] Cardiology 08/22/23 Laura Mock MD, DMD [address] [address] [email or web address] Partners Attributed Provider 09/01/21 07/03/23 [facility] [phone]. Consulting Provider 08/22/23 [facility] Connect 12/24/23 03/11/24 Cyril Morales [address] [place] [address] Nurse Practitioner 02/27/24 documented as of this encounter Additional Source Comments The information contained in this document represents components of the legal health record. It is not the complete legal health record.[facility]
--- OUTSIDE RECORDS SUMMARY | 2024-12-22 16:14 | XMS_ITS | Encounter Summary ---
Author Organization [facility] Address [facility] [address] [address] Phone Care Team Providers Care Religious Education Director Name Role Phone Rina Swenson MD Unavailable Laura Mock MD, DMD Primary Car e Provider Laura Mock MD, DMD Unavailable Laura Mock MD, DMD Unavailable Jakob Bob MD Unavailable Jose Cruz MD Unavailable [phone] Laura Mock MD, DMD Unavailable Pcp, Unknown [...] 01/05/2025 11:00 AM EST Pre-Admission Testing [address] [address] Irineo Ruff MD [address] [place] [address] [email or web address]@[facility] 01/10/2025 Procedure Pass [facility] Endoscopy Department [address] [place] [address] 01/10/2025 7:30 AM EST Hospital Encounter [facility] Endoscopy Department [address] [place] [address] Irineo Ruff MD [address] [place] [address] WALI@[facility] 01/10/2025 7:30 AM EST - 01/10/2025 8:15 AM EST Surgery [facility] Endoscopy Department [address] [place] [address] Irineo Ruff MD [address] [place] [address] WALI@[facility] COLONOSCOPY 01/31/2025 1:00 PM EST Office [place] [facility] [place] [address] [facility], 5th Floor, [address] [place] [address] Karena Betancur MD [address] [employer] [place] [address] FRANK@[email or web address] Scheduled Procedures Name Priority [...] documented as of this encounter Care Teams Religious Education Director Relationship Specialty Start Date End Date Laura Mock MD, DMD [address] [address] [email or web address] du PCP - General Internal Medicine 06/04/21 11/11/23 Pcp, Unknown PCP - General 11/12/23 11/16/23 Laura Mock MD, DMD [address] [address] [email or web address] PCP - General Internal Medicine 11/17/23 12/28/23 Pcp, Unknown PCP - General 02/28/24 03/04/24 Nicole Newell MD [address] [place] [phone] PCP - General 03/05/24 05/17/24 Laura Mock MD, DMD [address] [address] [email or web address] du PCP - General Internal Medicine 05/18/24 Rina Swenson MD Psychiatry 07/09/17 Laura Mock MD, DMD [address] [address] [email or web address]. du Partners Attributed Provider 09/01/21 07/03/23 Laura Mock MD, DMD [address] [address] [email or web address] du Insurance Assigned Provider 05/31/23 03/01/24 Jakob Bob MD 75 [facility] [place] [address] [email or web address] Cardiology 08/22/23 Jose Cruz MD [address] [place] [address] Cardiology 08/22/23 Laura Mock MD, DMD [address] [address] [email or web address] Partners Attributed Provider 09/01/21 07/03/23 [facility] [phone]. Consulting Provider 08/22/23 [facility] Connect 12/24/23 03/11/24 Cyril Morales [address] [place] [address] Nurse Practitioner 02/27/24 documented as of this encounter Additional Source Comments The information contained in this document represents components of the legal health record. It is not the complete legal health record.[facility]
--- OUTSIDE RECORDS SUMMARY | 2024-12-22 16:14 | XMS_ITS | Encounter Summary ---
Author Organization [facility] Address [facility] [employer] [address] [address] Phone Care Team Providers Care Human Resources Training Manager Name Role Phone Artie Meehan MD [...] EST Pre-Admission Testing [facility] 45 [facility] 2nd [place] [address] Irineo Ruff MD [address] [place] [address] [email or web address]@[facility] 01/10/2025 Procedure Pass [facility] Endoscopy Department [address] [place] [address] 01/10/2025 7:30 AM EST Hospital Encounter [facility] Endoscopy Department [address] [place] [address] Irineo Ruff MD [address] [place] [address] [email or web address]@[facility] 01/10/2025 7:30 AM EST - 01/10/2025 8:15 AM EST Surgery [facility] Endoscopy Department [address] [place] [address] Irineo Ruff MD [address] [place] [address] WALI@[facility] COLONOSCOPY 01/31/2025 1:00 PM EST Office [place] [facility] [place] 32 [facility], 5th Floor, [address] [place] [address] Karena Betancur MD [address] [address] [email or web address] Scheduled Procedures Name Priority [...] documented as of this encounter Care Teams Human Resources Training Manager Relationship Specialty Start Date End Date Laura Mock MD, DMD [address] [place] [address] [email or web address] du PCP - General Internal Medicine 06/04/21 11/11/23 Pcp, Unknown PCP - General 11/12/23 11/16/23 Laura Mock MD, DMD [address] [place] [address] [email or web address] du PCP - General Internal Medicine 11/17/23 12/28/23 Pcp, Unknown PCP - General 02/28/24 03/04/24 Nicole Newell MD [address] [place] [address] PCP - General 03/05/24 05/17/24 Laura Mock MD, DMD 1 [address] [place] [address] [email or web address] du PCP - General Internal Medicine 05/18/24 Artie Meehan MD [address] [place] [address] Dr [place] [address] Internal Medicine 10/26/17 04/23/22 Rina Swenson MD [address] [place] [address] [place] [address] Psychiatry 07/09/17 Laura Mock MD, DMD [address] [address] [email or web address] Partners Attributed Provider 09/01/21 07/03/23 Laura Mock MD, DMD [address] [address] [email or web address] du Insurance Assigned Provider 05/31/23 03/01/24 Jakob Bob MD [address] [place] [address] [email or web address] Cardiology 08/22/23 Jose Cruz MD [address] [place] [address] Cardiology 08/22/23 Laura Mock MD, DMD [address] [address] [email or web address] du Partners Attributed Provider 09/01/21 07/03/23 [facility] [phone]. Consulting Provider 08/22/23 CAROLANN GREWAL Connect 12/24/23 03/11/24 Cyril Morales [address] [place] [address] Nurse Practitioner 02/27/24 documented as of this encounter Additional Source Comments The information contained in this document represents components of the legal health record. It is not the complete legal health record.[facility]
--- OUTSIDE RECORDS SUMMARY | 2024-12-22 16:15 | XMS_ITS | Encounter Summary ---
Author Organization [facility] Address [address] [place] [address] [place] [address] Phone Care Team Providers Care Range Mounter Name Role Phone Rina Swenson MD Unavailable [phone] Laura Mock MD, DMD Primary Car e Provider Laura Mock MD, DMD Unavailable Laura Mock MD, DMD Unavailable Jakob Bob MD Unavailable Jose Cruz MD Unavailable [phone] Laura Mock MD, DMD Unavailable Pcp, Unknown Primary Care Provider UnavailLaura Ascencio MD, DMD Primary Car e Provider Pcp, Unknown Primary Care Provider UnavailNicole Arguello MD Primary Care Provide r Laura Mock MD, DMD Primary Car e Provider Encounter Details Date Type Department Care Team (Late st Contact Info) Description 12/10/2022 Anti-coag visit [facility] Cardiovascular Health [address] [place] [address] Catherine Hernández, PharmD [email or web address] Social History Tobacco Use Types Packs/Day [...] 01/05/2025 11:00 AM EST Pre-Admission Testing [address] 2nd [place] [address] Irineo Ruff MD [address] [place] [address] [email or web address] 01/10/2025 Procedure Pass [facility] Endoscopy Department [address] [place] [address] 01/10/2025 7:30 AM EST Hospital Encounter [facility] Endoscopy Department [address] [place] [address] Irineo Ruff MD [address] [place] [address] [email or web address] 01/10/2025 7:30 AM EST - 01/10/2025 8:15 AM EST Surgery [facility] Endoscopy Department [address] [place] [address] Irineo Ruff MD [address] [facility], [place] [address] [email or web address] COLONOSCOPY 01/31/2025 1:00 PM EST Office Visit [facility] Cardiovascular Medicine 32 [facility], 5th Floor, [address] [place] [address] Karena Betancur MD 55 [facility] [address] [place] [address] [email or web address] Scheduled Procedures Name Priority [...] documented as of this encounter Care Teams Range Mounter Relationship Specialty Start Date End Date Laura Mock MD, DMD [address] [address] [email or web address] PCP - General Internal Medicine 06/04/21 11/11/23 Pcp, Unknown PCP - General 11/12/23 11/16/23 Laura Mock MD, DMD 1 [facility] [address] [place] [address] [email or web address] PCP - General Internal Medicine 11/17/23 12/28/23 Pcp, Unknown PCP - General 02/28/24 03/04/24 Nicole Newell MD [address] [place] [address] PCP - General 03/05/24 05/17/24 Laura Mock MD, DMD [address] [address] [email or web address] du PCP - General Internal Medicine 05/18/24 Rina Swenson MD Psychiatry 07/09/17 Laura Mock MD, DMD [address] [address] [email or web address] Partners Attributed Provider 09/01/21 07/03/23 Laura Mock MD, DMD [address] [address] [email or web address] du Insurance Assigned Provider 05/31/23 03/01/24 Jakob Bob MD [address] [place] [address] [place] [address] [email or web address] Cardiology 08/22/23 Jose Cruz MD [address] [place] [address] Cardiology 08/22/23 Laura Mock MD, DMD [address] [address] [email or web address] Partners Attributed Provider 09/01/21 07/03/23 [facility] [phone]. Consulting Provider 08/22/23 [facility] Connect 12/24/23 03/11/24 Cyril Morales [address] [place] [address] Nurse Practitioner 02/27/24 documented as of this encounter Additional Source Comments The information contained in this document represents components of the legal health record. It is not the complete legal health record.[facility]
--- OUTSIDE RECORDS SUMMARY | 2024-12-22 16:15 | XMS_ITS | Encounter Summary ---
Author Organization [facility] Address [address] [place] [address] Phone Care Team Providers Care Thin Film Technician Name Role Phone Rina Swenson MD Unavailable [phone] Jakob Bob MD Unavailable [phone] Jose Cruz MD Unavailable Laura Mock MD, DMD Primary Car e Provider Reason for Visit * Reason Onset Date Comments Colonoscopy 10/13/2024 Encounter Details Date Type Department Care Team (Late st Contact Info) Description 10/13/2024 Telephone [facility] [address] 2nd [place] [address] Laura Mock MD, DMD 1 [facility] [address] [place] [address] [email or web address] Colonoscopy Social History Tobacco Use [...] Description 01/05/2025 11:00 AM EST Pre-Admission Testing [facility] [address] [address] Irineo Ruff MD 75 [facility], [place] [address] [email or web address] 01/10/2025 Procedure Pass [facility] Endoscopy Department [address] [place] [address] 01/10/2025 7:30 AM EST Hospital Encounter [facility] Endoscopy Department [address] [place] [address] Irineo Ruff MD 75 [facility] [place] [address] [email or web address] 01/10/2025 7:30 AM EST - 01/10/2025 8:15 AM EST Surgery [facility] Endoscopy Department [address] [place] [address] Irineo Ruff MD 75 [facility] [place] [address] [email or web address] COLONOSCOPY 01/31/2025 1:00 PM EST Office Visit [facility] Cardiovascular Medicine 32 [facility], 5th Floor, [address] [place] [address] Karena Betancur MD [address] [address] FRANK@[email or web address] Scheduled Procedures Name Priority Associated Diagnoses Date/Ti me COLONOSCOPY Abnormal colonoscopy 01/10/2025 7:30 AM EST documented as of this encounter Visit Diagnoses Not on filedocumented in this encounter Additional Health Concerns Assessment Noted Time PHQ-9 Depression Total Score: 17 04/24/ 023 11:28 AM EST PHQ-2 Depression Total Score: 2 10/10/19 23 11:28 AM EDT documented as of this encounter Care Teams Thin Film Technician Relationship Specialty Start Date End Date Laura Mock MD, DMD 1 [facility] [address] [place] [address] [email or web address] PCP - General Internal Medicine 05/18/24 Rina Swenson MD Psychiatry 07/09/17 Jakob Bob MD [address] [place] [address] [address] [place] [address] [email or web address] Cardiology 08/22/23 Jose Cruz MD [address] [place] [address], [address] [place] [address] Cardiology 08/22/23 [facility] [phone]. Consulting Provider 08/22/23 Cyril Morales [address] [place] [address] Nurse Practitioner 02/27/24 documented as of this encounter Additional Source Comments The information contained in this document represents components of the legal health record. It is not the complete legal health record.[facility]
--- OUTSIDE RECORDS SUMMARY | 2024-12-22 16:15 | XMS_ITS | Encounter Summary ---
Author Organization [facility] Address [facility] [address] [address] Phone Care Team Providers Care Instructional Interventionist Name Role Phone Artie Meehan MD Unavailable Rina Swenson MD Unavailable Laura Mock MD, DMD Primary Car e Provider Laura Mock MD, DMD Unavailable Laura Mock MD, DMD Unavailable Jakob Bob MD Unavailable Jose Cruz MD Unavailable [phone] Laura Mock MD, DMD Unavailable Pcp, Unknown Primary Care Provider UnavailLaura Ascencio MD, DMD Primary Car e Provider Pcp, Unknown Primary Care Provider UnavailNicole Arguello MD Primary Care Provide r Laura Mock MD, DMD Primary Car e Provider Encounter Details Date Type Department Care Team (Late st Contact Info) Description 09/17/2021 Anti-coag visit [facility] Cardiovascular [address] [address] Catherine Hernández, UniqueD [email or web address] Social History Tobacco Use Types Packs/Day [...] 01/05/2025 11:00 AM EST Pre-Admission Testing [address] 2nd [place] [address] Irineo Ruff MD [address] [place] [address] [email or web address] 01/10/2025 Procedure Pass [facility] Endoscopy Department [address] [place] [address] 01/10/2025 7:30 AM EST Hospital Encounter [facility] Endoscopy Department [address] [place] [address] Irineo Ruff MD [address] [place] [address] [place] [address] [email or web address] 01/10/2025 7:30 AM EST - 01/10/2025 8:15 AM EST Surgery [facility] Endoscopy Department [address] [place] [address] Irineo Ruff MD [address] [place] [address] [email or web address]@[email or web address] COLONOSCOPY 01/31/2025 1:00 PM EST Office Visit [facility] Cardiovascular Medicine [address] [place] [address], 5th Floor, [address] [place] [address] Karena Betancur MD [address] [place] [address] [email or web address] Scheduled Procedures Name Priority Associated Diagnoses [...] documented as of this encounter Care Teams Instructional Interventionist Relationship Specialty Start Date End Date Laura Mock MD, DMD [address] [address] [email or web address] du PCP - General Internal Medicine 06/04/21 11/11/23 Pcp, Unknown PCP - General 11/12/23 11/16/23 Laura Mock MD, DMD [address] [address] [email or web address] du PCP - General Internal Medicine 11/17/23 12/28/23 Pcp, Unknown PCP - General 02/28/24 03/04/24 [place] [address] [address] PCP - General 03/05/24 05/17/24 Laura Mock MD, DMD 1 [facility] [address] [place] [address] [email or web address] du PCP - General Internal Medicine 05/18/24 Artie Meehan MD [address] [place] [address] [address] [place] [address] Internal Medicine 10/26/17 04/23/22 Rina Swenson MD [address] [place] [address] [address] [place] [address] Psychiatry 07/09/17 Laura Mock MD, DMD [address] [address] [email or web address] du Partners Attributed Provider 09/01/21 07/03/23 Laura Mock MD, DMD [address] [address] [email or web address] du Insurance Assigned Provider 05/31/23 03/01/24 Jakob Bob MD [address] [place] [address] [place] [address] [email or web address] Cardiology 08/22/23 Jose Cruz MD [address] [place] [address] Cardiology 08/22/23 Laura Mock MD, DMD [address] [address] [email or web address] Attributed Provider 09/01/21 07/03/23 [facility] [phone]. Consulting Provider 08/22/23 [facility] Connect 12/24/23 03/11/24 Cyril Morales [facility] [place] [address] Nurse Practitioner 02/27/24 documented as of this encounter Additional Source Comments The information contained in this document represents components of the legal health record. It is not the complete legal health record.[facility]
--- OUTSIDE RECORDS SUMMARY | 2024-12-22 16:15 | XMS_ITS | Encounter Summary ---
Author Organization [facility] Address [facility] [place] [address] [address] Phone Care Team Providers Care National Opelint Analyst Name Role Phone Rina Swenson MD Unavailable Lauar Mock MD, DMD Primary Car e Provider [...] 01/05/2025 11:00 AM EST Pre-Admission Testing [address] [address] Irineo Ruff MD [address] [place] [address] [email or web address]@[email or web address] 01/10/2025 Procedure Pass [facility] Endoscopy Department [address] [place] [address] 01/10/2025 7:30 AM EST Hospital Encounter [facility] Endoscopy Department [address] [place] [address] Irineo Ruff MD [address] [place] [address] WALI@[email or web address] 01/10/2025 7:30 AM EST - 01/10/2025 8:15 AM EST Surgery [facility] Endoscopy Department [address] [place] [address] Irineo Ruff MD [address] [place] [address] [email or web address]@[facility] COLONOSCOPY 01/31/2025 1:00 PM EST Office Visit [facility] Cardiovascular Medicine 32 [facility], 5th Floor, [address] [place] [address] Karena Betancur MD 55 [facility] [address] [place] [address] FRANK@[email or web address] Scheduled Procedures Name Priority Associated Diagnoses Date/Ti [...] documented as of this encounter Care Teams National Opelint Analyst Relationship Specialty Start Date End Date Laura Mock MD, DMD [address] [address] [email or web address] du PCP - General Internal Medicine 06/04/21 11/11/23 Pcp, Unknown PCP - General 11/12/23 11/16/23 Laura Mock MD, DMD [address] [address] [email or web address] PCP - General Internal Medicine 11/17/23 12/28/23 Pcp, Unknown PCP - General 02/28/24 03/04/24 Nicole Newell MD [address] [place] [phone] PCP - General 03/05/24 05/17/24 Laura Mock MD, DMD [address] [address] [email or web address] du PCP - General Internal Medicine 05/18/24 Rina Swenson MD Psychiatry 07/09/17 Laura Mock MD, DMD [address] [address] [email or web address] Partners Attributed Provider 09/01/21 07/03/23 Laura Mock MD, DMD [address] [address] [email or web address] du Insurance Assigned Provider 05/31/23 03/01/24 Jakob Bob MD 75 [facility] [place] [address] [email or web address] Cardiology 08/22/23 Jose Cruz MD [address] [place] [address] Cardiology 08/22/23 Laura Mock MD, DMD [address] [address] [email or web address] du Partners Attributed Provider 09/01/21 07/03/23 [facility] [phone]. Consulting Provider 08/22/23 [facility] Connect 12/24/23 03/11/24 Cyril Morales [address] [place] [address] Nurse Practitioner 02/27/24 documented as of this encounter Additional Source Comments The information contained in this document represents components of the legal health record. It is not the complete legal health record.[facility]
--- OUTSIDE RECORDS SUMMARY | 2024-12-22 16:15 | XMS_ITS | Encounter Summary ---
Author Organization [facility] Address [facility] [address] [place] [address] Phone Care Team Providers Care Ccie Name Role Phone Rina Swenson MD Unavailable [...] st Contact Info) Description 12/25/2022 Transcribe Orders [facility] Department [address] [place] [address] Laura Mock MD, DMD 1 [facility] [address] [place] [address] [email or web address] Breast screening (Primary Dx) Social History [...] Pre-Admission Testing [facility] 45 [facility] 2nd [place] [address] Irineo Ruff MD [address] [place] [address] [email or web address]@[email or web address] 01/10/2025 Procedure Pass [facility] Endoscopy Department [address] [place] [address] 01/10/2025 7:30 AM EST Hospital Encounter [facility] Endoscopy Department [address] [place] [address] Irineo Ruff MD [address] [place] [address] [place] [address] [email or web address]@[email or web address] 01/10/2025 7:30 AM EST - 01/10/2025 8:15 AM EST Surgery [facility] Endoscopy Department 75 [place] [address] Irineo Ruff MD 75 [facility] [place] [address] WALI@[facility] COLONOSCOPY 01/31/2025 1:00 PM EST Office Visit [facility] Cardiovascular Medicine 32 [facility], 5th Floor, [address] [place] [address] Karena Betancur MD 55 [facility] [address] [place] [address] FRANK@[email or web address] Scheduled Procedures Name Priority Associated Diagnoses [...] documented as of this encounter Care Teams Ccie Relationship Specialty Start Date End Date Laura Mock MD, DMD [address] [address] [email or web address] PCP - General Internal Medicine 06/04/21 11/11/23 Pcp, Unknown PCP - General 11/12/23 11/16/23 Laura Mock MD, DMD [address] [address] [email or web address] PCP - General Internal Medicine 11/17/23 12/28/23 Pcp, Unknown PCP - General 02/28/24 03/04/24 [place] [address] [place] [address] PCP - General 03/05/24 05/17/24 Laura Mock MD, DMD [address] [address] [email or web address] du PCP - General Internal Medicine 05/18/24 Rina Swenson MD Psychiatry 07/09/17 Laura Mock MD, DMD [address] [address] [email or web address] Partners Attributed Provider 09/01/21 07/03/23 Laura Mock MD, DMD [address] [address] [email or web address] Insurance Assigned Provider 05/31/23 03/01/24 Jakob Bob MD [address] [place] [address] [email or web address] Cardiology 08/22/23 Jose Cruz MD [address] [place] [address] Cardiology 08/22/23 Laura Mock MD, DMD [address] [address] [email or web address] Partners Attributed Provider 09/01/21 07/03/23 [facility] [phone]. Consulting Provider 08/22/23 [facility] Connect 12/24/23 03/11/24 Cyril Morales [address] [place] [address] Nurse Practitioner 02/27/24 documented as of this encounter Additional Source Comments The information contained in this document represents components of the legal health record. It is not the complete legal health record.[facility]
--- OUTSIDE RECORDS SUMMARY | 2024-12-22 16:15 | XMS_ITS | Encounter Summary ---
Author Organization [facility] Address [facility] [address] [address] Phone Care Team Providers Care Scanning Coordinator Name Role Phone Rina Swenson MD Unavailable Laura Mock MD, DMD Primary Car e Provider Laura Mock MD, DMD Unavailable Laura Mock MD, DMD Unavailable Jakob Bob MD Unavailable [phone] Jose Cruz MD Unavailable [phone] Laura Mock MD, DMD Unavailable Pcp, Unknown [...] Description 01/05/2025 11:00 AM EST Pre-Admission Testing [facility] 45 [facility] 2nd [place] [address] Irineo Ruff MD [address] [place] [address] [email or web address]@[facility] 01/10/2025 Procedure Pass [facility] Endoscopy Department [address] [place] [address] 01/10/2025 7:30 AM EST Hospital Encounter [facility] Endoscopy Department [address] [place] [address] Irineo Ruff MD [address] [place] [address] [place] [address] [email or web address] 01/10/2025 7:30 AM EST - 01/10/2025 8:15 AM EST Surgery [facility] Endoscopy Department [address] [place] [address] Irineo Ruff MD [address] [place] [address] WALI@[facility] COLONOSCOPY 01/31/2025 1:00 PM EST Office Visit [facility] Cardiovascular Medicine 32 [facility], 5th Floor, [address] [place] [address] Karena Betancur MD [address] [address] [email or web address] Scheduled Procedures Name Priority Associated Diagnoses [...] documented as of this encounter Care Teams Scanning Coordinator Relationship Specialty Start Date End Date Laura Mock MD, DMD [address] [address] [email or web address] du PCP - General Internal Medicine 06/04/21 11/11/23 Pcp, Unknown PCP - General 11/12/23 11/16/23 Laura Mock MD, DMD [address] [address] [email or web address] PCP - General Internal Medicine 11/17/23 12/28/23 Pcp, Unknown PCP - General 02/28/24 03/04/24 [place] [address] [address] PCP - General 03/05/24 05/17/24 Laura Mock MD, DMD [address] [address] [email or web address] du PCP - General Internal Medicine 05/18/24 Rina Swenson MD Psychiatry 07/09/17 Laura Mock MD, DMD [address] [address] [email or web address] du Partners Attributed Provider 09/01/21 07/03/23 Laura Mock MD, DMD [address] [address] [email or web address] du Insurance Assigned Provider 05/31/23 03/01/24 Jakob Bob MD [address] [place] [address] [email or web address] Cardiology 08/22/23 Jose Cruz MD [address] [place] [address] [email or web address] Cardiology 08/22/23 Laura Mock MD, DMD [address] [address] [email or web address] du Partners Attributed Provider 09/01/21 07/03/23 [facility] [phone]. Consulting Provider 08/22/23 [facility] Connect 12/24/23 03/11/24 Cyril Morales [address] [place] [phone] Nurse Practitioner 02/27/24 documented as of this encounter Additional Source Comments The information contained in this document represents components of the legal health record. It is not the complete legal health record.[facility]
--- OUTSIDE RECORDS SUMMARY | 2024-12-22 16:15 | XMS_ITS | Encounter Summary ---
Author Organization [facility] Address [facility] [address] [place] [address] Phone Care Team Providers Care Treasurer Savings Bank Name Role Phone Artie Meehan MD Primary Care Provider Artie Meehan MD Unavailable [phone] Rina Swenson MD Unavailable Laura Mock MD, DMD Primary Car e Provider Laura Mock MD, DMD Unavailable Laura Mock MD, DMD Unavailable Jakob Bob MD Unavailable [phone] Jose Cruz MD Unavailable [phone] Laura Mock MD, DMD Unavailable Pcp, Unknown Primary Care Provider UnavailLaura Ascencio MD, DMD Primary Car e Provider Pcp, Unknown Primary Care Provider UnavailNicole Arguello MD Primary Care Provide r Laura Mock MD, DMD Primary Car e Provider Encounter Details Date Type Department Care Team (Late st Contact Info) Description 05/03/2021 Procedure Pass [facility] [address] [place] [address] Social History Tobacco Use Types Packs/Day Years [...] Description 01/05/2025 11:00 AM EST Pre-Admission Testing [facility] [address] [facility] 2nd [place] [address] Irineo Ruff MD [address] [place] [address] [email or web address]@[email or web address] 01/10/2025 Procedure Pass [facility] Endoscopy Department [address] [place] [address] 01/10/2025 7:30 AM EST Hospital Encounter [facility] Endoscopy Department [address] [place] [address] Irineo Ruff MD [address] [place] [address] [email or web address]@[facility] 01/10/2025 7:30 AM EST - 01/10/2025 8:15 AM EST Surgery [facility] Endoscopy Department [address] [place] [address] Irineo Ruff MD [address] [place] [address] [email or web address]@[email or web address] COLONOSCOPY 01/31/2025 1:00 PM EST Office Visit [facility] Cardiovascular Medicine [address] [place] [address], 5th Floor, [address] [place] [address] Karena Betancur MD [address] [place] [address] [email or web address] Scheduled Procedures Name [...] documented as of this encounter Care Teams Treasurer Savings [employer] Relationship Specialty Start Date End Date Artie Meehan MD [address] [place] [address] [place] [address] PCP - General Internal Medicine 10/26/17 06/03/21 Laura Mock MD, DMD [address] [address] [email or web address] du PCP - General Internal Medicine 06/04/21 11/11/23 Pcp, Unknown PCP - General 11/12/23 11/16/23 Laura Mock MD, DMD [address] [address] [email or web address] du PCP - General Internal Medicine 11/17/23 12/28/23 Pcp, Unknown PCP - General 02/28/24 03/04/24 [place] [address] [address] PCP - General 03/05/24 05/17/24 Laura Mock MD, DMD [address] [address] [email or web address] PCP - General Internal Medicine 05/18/24 Artie Meehan MD [address] [place] [address] Dr [address] [place] [address] Internal Medicine 10/26/17 04/23/22 Rina Swenson MD [address] [place] [address] Dr [address] [place] [address] Psychiatry 07/09/17 Laura Mock MD, DMD [address] [address] [email or web address] Attributed Provider 09/01/21 07/03/23 Laura Mock MD, DMD [address] [address] [email or web address] Insurance Assigned Provider 05/31/23 03/01/24 Jakob Bob MD [address] [place], [place] [address] [place] [address] [email or web address] Cardiology 08/22/23 Jose Cruz MD [address] [place] [address] [address] Cardiology 08/22/23 Laura Mock MD, DMD 1 [facility] [address] [place] [address] [email or web address] Partners Attributed Provider 09/01/21 07/03/23 [facility] [phone]. Consulting Provider 08/22/23 [facility] Connect 12/24/23 03/11/24 Cyril Morales [address] [place] [address] Nurse Practitioner 02/27/24 documented as of this encounter Additional Source Comments The information contained in this document represents components of the legal health record. It is not the complete legal health record.[facility]
--- OUTSIDE RECORDS SUMMARY | 2024-12-22 16:15 | XMS_ITS | Encounter Summary ---
Author Organization [facility] Address [facility] [address] [address] Phone Care Team Providers Care Machine Sand Mixer Name Role Phone Rina Swenson MD Unavailable Laura Mock MD, DMD Primary Car e Provider Laura Mock MD, DMD Unavailable Laura Mock MD, DMD Unavailable Jakob Bob MD Unavailable [phone] Jose Cruz MD Unavailable [phone] Laura Mock MD, DMD Unavailable Pcp, Unknown [...] Description 01/05/2025 11:00 AM EST Pre-Admission Testing [address] [address] Irineo Ruff MD [address] [place] [address] [email or web address] 01/10/[address] [facility] Endoscopy Department [address] [place] [address] 01/10/2025 7:30 AM EST Hospital Encounter [facility] Endoscopy Department [address] [place] [address] Irineo Ruff MD [address] [place] [address] [email or web address]@[email or web address] 01/10/2025 7:30 AM EST - 01/10/2025 8:[address] [facility] Endoscopy Department [address] [place] [address] Irineo Ruff MD [address] [place] [address] [email or web address]@[facility] COLONOSCOPY 01/31/2025 1:00 PM EST Office [place] [facility] [place] [address] [facility], 5th Floor, [address] [place] [address] Karena Betancur MD 55 [facility] [address] [place] [address] [email or web address] Scheduled Procedures Name Priority [...] as of this encounter Care Teams Machine Sand Mixer Relationship Specialty Start Date End Date Laura Mock MD, DMD [address] [address] [email or web address] PCP - General Internal Medicine 06/04/21 11/11/23 Pcp, Unknown PCP - General 11/12/23 11/16/23 Laura Mock MD, DMD [address] [address] [email or web address] PCP - General Internal Medicine 11/17/23 12/28/23 Pcp, Unknown PCP - General 02/28/24 03/04/24 Nicole Newell MD [address] [place] [address] [id number] PCP - General 03/05/24 05/17/24 Laura Mock MD, DMD [address] [address] [email or web address] du PCP - General Internal Medicine 05/18/24 Rina Swenson MD Psychiatry 07/09/17 Laura Mock MD, DMD [address] [address] [email or web address] Partners Attributed Provider 09/01/21 07/03/23 Laura Mock MD, DMD [address] [address] [email or web address] du Insurance Assigned Provider 05/31/23 03/01/24 Jakob Bob MD [address] [facility] [place] [address] [email or web address] Cardiology 08/22/23 Jose Cruz MD [address] [place] [address] Cardiology 08/22/23 Laura Mock MD, DMD [address] [address] [email or web address] Partners Attributed Provider 09/01/21 07/03/23 [facility] [phone]. Consulting Provider 08/22/23 [facility] Connect 12/24/23 03/11/24 Cyril Morales [address] [place] [address] Nurse Practitioner 02/27/24 documented as of this encounter Additional Source Comments The information contained in this document represents components of the legal health record. It is not the complete legal health record.[facility]
--- OUTSIDE RECORDS SUMMARY | 2024-12-22 16:15 | XMS_ITS | Encounter Summary ---
Author Organization [facility] Address [facility] [address] [place] [address] Phone Care Team Providers Care Gift Consultant Name Role Phone Rina Swenson MD Unavailable [...] Info) Description 10/07/2022 Procedure Pass [facility] [place] [phone] Social History Tobacco Use Types Packs/Day Years [...] Description 01/05/2025 11:00 AM EST Pre-Admission Testing [address] [address] Irineo Ruff MD [address] [place] [address] [email or web address]@[email or web address] 01/10/2025 Procedure Pass [facility] Endoscopy Department [address] [place] [address] 01/10/2025 7:30 AM EST Hospital Encounter [facility] Endoscopy Department [address] [place] [address] Irineo Ruff MD [address] [place] [address] [email or web address]@[facility] 01/10/2025 7:30 AM EST - 01/10/2025 8:15 AM EST Surgery [facility] Endoscopy Department [address] [place] [address] Irineo Ruff MD [address] [place] [address] WALI@[facility] COLONOSCOPY 01/31/2025 1:00 PM EST Office Visit [facility] Medicine [address] [facility], 5th Floor, [address] [place] [address] Karena Betancur MD [address] [facility] [address] [place] [address] [email or web address] Scheduled Procedures Name [...] documented as of this encounter Care Teams Gift Consultant Relationship Specialty Start Date End Date Laura Mock MD, DMD [address] [address] [email or web address] so PCP - General Internal Medicine 06/04/21 11/11/23 Pcp, Unknown PCP - General 11/12/23 11/16/23 Laura Mock MD, DMD [address] [address] [email or web address] PCP - General Internal Medicine 11/17/23 12/28/23 Pcp, Unknown PCP - General 02/28/24 03/04/24 [place] [address] [place] [address] PCP - General 03/05/24 05/17/24 Laura Mock MD, DMD 1 [facility] [address] [place] [address] [email or web address] du PCP - General Internal Medicine 05/18/24 Rina Swenson MD Psychiatry 07/09/17 Laura Mock MD, DMD [address] [address] [email or web address] du Partners Attributed Provider 09/01/21 07/03/23 Laura Mock MD, DMD [address] [address] [email or web address] du Insurance Assigned Provider 05/31/23 03/01/24 Jakob Bob MD [address] [facility] [place] [address] [email or web address] Cardiology 08/22/23 Jose Cruz MD [address] [place] [address], [address] [place] [address] Cardiology 08/22/23 Laura Mock MD, DMD [address] [address] [email or web address] du Partners Attributed Provider 09/01/21 07/03/23 [facility] [phone]. Consulting Provider 08/22/23 [facility] Connect 12/24/23 03/11/24 Cyril Morales [facility] [place] [address] Nurse Practitioner 02/27/24 documented as of this encounter Additional Source Comments The information contained in this document represents components of the legal health record. It is not the complete legal health record.[facility]
--- OUTSIDE RECORDS SUMMARY | 2024-12-22 16:15 | XMS_ITS | Encounter Summary ---
Author Organization [facility] Address [facility] [address] [address] Phone Care Team Providers Care Script Supervisor Name Role Phone Artie Meehan MD Unavailable Rina Swenson MD Unavailable Laura Mock MD, DMD Primary Car e Provider Laura Mock MD, DMD Unavailable Laura Mock MD, DMD Unavailable Jakob Bob MD Unavailable [phone] Jose Cruz MD Unavailable Laura Mock MD, DMD Unavailable Pcp, Unknown Primary Care Provider UnavailLaura Ascencio MD, DMD Primary Car e Provider Pcp, Unknown Primary Care Provider UnavailNicole Arguello MD Primary Care Provide r Laura Mock MD, DMD Primary Car e Provider Encounter Details Date Type Department Care Team (Late st Contact Info) Description 09/28/2021 Telephone [facility] Psychiatric Specialties at [address] [place] [address] Tamara Walton, YOLIE [address] [facility] [place] [address] [email or web address] Social History Tobacco Use Types Packs/Day Years [...] 01/05/2025 11:00 AM EST Pre-Admission Testing [address] 2nd [place] [address] Irineo Ruff MD [address] [place] [address] [place] [address] [email or web address] 01/10/2025 Procedure Pass [facility] Endoscopy Department [address] [place] [address] 01/10/2025 7:30 AM EST Hospital Encounter [facility] Endoscopy Department [address] [place] [address] Irineo Ruff MD [address] [place] [address] [place] [address] [email or web address] 01/10/2025 7:30 AM EST - 01/10/2025 8:15 AM EST Surgery [facility] Endoscopy Department [address] [place] [address] Irineo Ruff MD [address] [place] [address] [place] [address] [email or web address] COLONOSCOPY 01/31/2025 1:00 PM EST Office [place] [facility] Cardiovascular Medicine [address] [place] [address], 5th Floor, [address] [place] [address] Karena Betancur MD [address] [facility] [address] [place] [address] [email or web address] Scheduled Procedures Name Priority [...] documented as of this encounter Care Teams Script Supervisor Relationship Specialty Start Date End Date Laura Mock MD, DMD 1 [facility] [address] [place] [address] [email or web address] du PCP - General Internal Medicine 06/04/21 11/11/23 Pcp, Unknown PCP - General 11/12/23 11/16/23 Laura Mock MD, DMD 1 [facility] [address] [place] [address] [email or web address] du PCP - General Internal Medicine 11/17/23 12/28/23 Pcp, Unknown PCP - General 02/28/24 03/04/24 [place] [address] [address] PCP - General 03/05/24 05/17/24 Laura Mock MD, DMD [address] [address] [email or web address] du PCP - General Internal Medicine 05/18/24 Artie Meehan MD [address] [place] [address] Dr [place] [address] Internal Medicine 10/26/17 04/23/22 Rina Swenson MD [address] [place] [address] [place] [address] Psychiatry 07/09/17 Laura Mock MD, DMD [address] [address] [email or web address] du Partners Attributed Provider 09/01/21 07/03/23 Laura Mock MD, DMD [address] [address] [email or web address] Insurance Assigned Provider 05/31/23 03/01/24 Jakob Bob MD [address] [place] [address] [place] [address] [email or web address] Cardiology 08/22/23 Jose Cruz MD [address] [place] [address] Cardiology 08/22/23 Laura Mock MD, DMD [address] [address] [email or web address] Partners Attributed Provider 09/01/21 07/03/23 [facility] [phone]. Consulting Provider 08/22/23 [facility] Connect 12/24/23 03/11/24 Cyril Morales [facility] [place] [address] Nurse Practitioner 02/27/24 documented as of this encounter Additional Source Comments The information contained in this document represents components of the legal health record. It is not the complete legal health record.[facility]
--- OUTSIDE RECORDS SUMMARY | 2024-12-22 16:15 | XMS_ITS | Encounter Summary ---
Author Organization [facility] Address [address] [place] [address] [place] [address] Phone Care Team Providers Care Motorcycle Technician Name Role Phone Rina Swenson MD Unavailable Laura Mock MD, DMD Primary Car e Provider Laura Mock MD, DMD Unavailable Laura Mock MD, DMD Unavailable Jakob Bob MD Unavailable Jose Cruz MD Unavailable [phone] Laura Mock MD, DMD Unavailable Pcp, Unknown Primary Care Provider UnavailLaura Ascencio MD, DMD Primary Car e Provider Pcp, Unknown Primary Care Provider UnavailNicole Arguello MD Primary Care Provide r Laura Mock MD, DMD Primary Car e Provider Encounter Details Date Type Department Care Team (Late st Contact Info) Description 04/25/2022 Anti-coag visit [facility] Anticoagulation Clinic [address] [place] [phone] Kenyatta [email or web address] Social History Tobacco Use Types Packs/Day Years [...] EST Pre-Admission Testing [facility] [address] [facility] 2nd [place] [address] Irineo Ruff MD [address] [place] [address] [email or web address] 01/10/2025 Procedure Pass [facility] Endoscopy Department [address] [place] [address] 01/10/2025 7:30 AM EST Hospital Encounter [facility] Endoscopy Department [address] [place] [address] Irineo Ruff MD [address] [place] [address] [place] [address] [email or web address] 01/10/2025 7:30 AM EST - 01/10/2025 8:15 AM EST Surgery [facility] Endoscopy Department [address] [place] [address] Irineo Ruff MD [address] [place] [address] [place] [address] [email or web address] COLONOSCOPY 01/31/2025 1:00 PM EST Office [place] [facility] [place] [address] [facility], 5th Floor, [address] [place] [address] Karena Betancur MD [address] [place] [address] [email or web address] Scheduled Procedures Name Priority [...] documented as of this encounter Care Teams Motorcycle Technician Relationship Specialty Start Date End Date Laura Mock MD, DMD [address] [address] [email or web address] du PCP - General Internal Medicine 06/04/21 11/11/23 Pcp, Unknown PCP - General 11/12/23 11/16/23 Laura Mock MD, DMD [address] [address] [email or web address] du PCP - General Internal Medicine 11/17/23 12/28/23 Pcp, Unknown PCP - General 02/28/24 03/04/24 Nicole Newell MD [address] [place] [address] PCP - General 03/05/24 05/17/24 Laura Mock MD, DMD [address] [address] [email or web address] du PCP - General Internal Medicine 05/18/24 Rina Swenson MD Psychiatry 07/09/17 Laura Mock MD, DMD [address] [address] [email or web address] Partners Attributed Provider 09/01/21 07/03/23 Laura Mock MD, DMD [address] [address] [email or web address] du Insurance Assigned Provider 05/31/23 03/01/24 Jakob Bob MD [address] [place] [address] [email or web address] Cardiology 08/22/23 Jose Cruz MD [address] [place] [address] Cardiology 08/22/23 Laura Mock MD, DMD [address] [address] [email or web address] Partners Attributed Provider 09/01/21 07/03/23 [facility] [phone]. Consulting Provider 08/22/23 [facility] Connect 12/24/23 03/11/24 Cyril Morales [address] [place] [phone] Nurse Practitioner 02/27/24 documented as of this encounter Additional Source Comments The information contained in this document represents components of the legal health record. It is not the complete legal health record.[facility]
--- OUTSIDE RECORDS SUMMARY | 2024-12-22 16:15 | XMS_ITS | Encounter Summary ---
Author Organization [facility] Address [address] [place] [address] [place] [address] Phone Care Team Providers Care Business Planning Manager Name Role Phone Rina Swenson MD Unavailable Laura Mock MD, DMD Primary Car e Provider Laura Mock MD, DMD Unavailable Laura Mock MD, DMD Unavailable Jakob Bob MD Unavailable [phone] Jose Cruz MD Unavailable Laura Mock MD, DMD Unavailable Pcp, Unknown Primary Care Provider UnavailLaura Ascencio MD, DMD Primary Car e Provider Pcp, Unknown Primary Care Provider UnavailNicole Arguello MD Primary Care Provide r Laura Mock MD, DMD Primary Car e Provider Encounter Details Date Type Department Care Team (Late st Contact Info) Description 08/08/2022 Anti-coag visit [facility] Anticoagulation Clinic [address] [place] [phone] Kenyatta [email or web address] Social History Tobacco Use Types [...] Description 01/05/2025 11:00 AM EST Pre-Admission Testing [address] 2nd [place] [address] Irineo Ruff MD [address] [place] [address] [email or web address]@[facility] 01/10/2025 Procedure Pass [facility] Endoscopy Department [address] [place] [address] 01/10/2025 7:30 AM EST Hospital Encounter [facility] Endoscopy Department [address] [place] [address] Irineo Ruff MD [address] [place] [address] WALI@[facility] 01/10/2025 7:30 AM EST - 01/10/2025 8:15 AM EST Surgery [facility] Endoscopy Department [address] [place] [address] Irineo Ruff MD [address] [facility] [place] [address] WALI@[facility] COLONOSCOPY 01/31/2025 1:00 PM EST Office Visit [facility] Cardiovascular Medicine [address] [facility], 5th Floor, [address] [place] [address] Karena Betancur MD [address] [facility] [address] [place] [address] [email or web address] Scheduled Procedures Name [...] as of this encounter Care Teams Business Planning Manager Relationship Specialty Start Date End Date Laura Mock MD, DMD [address] [address] [email or web address] so PCP - General Internal Medicine 06/04/21 11/11/23 Pcp, Unknown PCP - General 11/12/23 11/16/23 Laura Mock MD, DMD 1 [facility] 225 [place] [address] [email or web address] PCP - General Internal Medicine 11/17/23 12/28/23 Pcp, Unknown PCP - General 02/28/24 03/04/24 [place] [address] [address] PCP - General 03/05/24 05/17/24 Laura Mock MD, DMD [address] [address] [email or web address] du PCP - General Internal Medicine 05/18/24 Rina Swenson MD Psychiatry 07/09/17 Laura Mock MD, DMD [address] [address] [email or web address] du Partners Attributed Provider 09/01/21 07/03/23 Laura Mock MD, DMD [address] [address] [email or web address] du Insurance Assigned Provider 05/31/23 03/01/24 Jakob Bob MD [address] [place] [address] [place] [address] [email or web address] Cardiology 08/22/23 Jose Cruz MD [address] [place] [address], [address] [place] [address] Cardiology 08/22/23 Laura Mock MD, DMD [address] [address] [email or web address] Partners Attributed Provider 09/01/21 07/03/23 [facility] [phone]. Consulting Provider 08/22/23 [facility] Connect 12/24/23 03/11/24 Cyril Morales [facility] [place] [address] Nurse Practitioner 02/27/24 documented as of this encounter Additional Source Comments The information contained in this document represents components of the legal health record. It is not the complete legal health record.[facility]
--- OUTSIDE RECORDS SUMMARY | 2024-12-22 16:15 | XMS_ITS | Patient Health Record ---
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
--- OUTSIDE RECORDS SUMMARY | 2024-12-22 16:15 | XMS_ITS | Encounter Summary ---
Author Organization [facility] Address Counts include 234 beds at the [facility] [address] [place] [address] Phone Care Team Providers Care Electronics Warfare Technician Name Role Phone Artie Meehan MD Unavailable Rina Swenson MD Unavailable Laura Mock MD, DMD Primary Car e Provider Laura Mock MD, DMD Unavailable Laura Mock MD, DMD Unavailable Jakob Bob MD Unavailable [phone] Jose Cruz MD Unavailable Laura Mock MD, DMD Unavailable Pcp, Unknown Primary Care Provider UnavailLaura Ascencio MD, DMD Primary Car e Provider Pcp, Unknown Primary Care Provider UnavailNicole Arguello MD Primary Care Provide r Laura Mock MD, DMD Primary Car e Provider Encounter Details Date Type Department Care Team (Late st Contact Info) Description 08/07/2021 Anti-coag visit [facility] Anticoagulation Clinic [address] [place] [address] Kenyatta Gamez, PharmD [email or web address] Social History Tobacco Use Types Packs/Day [...] 01/05/2025 11:00 AM EST Pre-Admission Testing [address] 2nd [place] [address] Irineo Ruff MD [address] [place] [address] [place] [address] [email or web address] 01/10/2025 Procedure Pass [facility] Endoscopy Department [address] [place] [address] 01/10/2025 7:30 AM EST Hospital Encounter [facility] Endoscopy Department [address] [place] [address] Irineo Ruff MD [address] [place] [address] [email or web address] 01/10/2025 7:30 AM EST - 01/10/2025 8:15 AM EST Surgery [facility] Endoscopy Department [address] [place] [address] Irineo Ruff MD [address] [place] [address] [email or web address]@[facility] COLONOSCOPY 01/31/2025 1:00 PM EST Office Visit [facility] Cardiovascular Medicine [address] [place] [address], 5th Floor, [address] [place] [address] Karena Betancur MD [address] [place] [address] [email or web address] [place] [email or web address] Scheduled Procedures Name Priority Associated [...] documented as of this encounter Care Teams Electronics Warfare Technician Relationship Specialty Start Date End Date Laura Mock MD, DMD 1 [facility] [address] [place] [address] [email or web address] du PCP - General Internal Medicine 06/04/21 11/11/23 Pcp, Unknown PCP - General 11/12/23 11/16/23 Laura Mock MD, DMD 1 [facility] [address] [place] [address] [email or web address] du PCP - General Internal Medicine 11/17/23 12/28/23 Pcp, Unknown PCP - General 02/28/24 03/04/24 [place] [address] [address] PCP - General 03/05/24 05/17/24 Laura Mock MD, DMD [address] [address] [email or web address] du PCP - General Internal Medicine 05/18/24 Artie Meehan MD [address] [place] [address] Dr [address] [place] [address] Internal Medicine 10/26/17 04/23/22 Rina Swenson MD [address] [place] [address] [place] [address] Psychiatry 07/09/17 Laura Mock MD, DMD [address] [address] [email or web address] du Partners Attributed Provider 09/01/21 07/03/23 Laura Mock MD, DMD [address] [address] [email or web address] Insurance Assigned Provider 05/31/23 03/01/24 Jakob Bob MD [address] [place] [address] [email or web address] Cardiology 08/22/23 Jose Cruz MD [address] [place] [address] Cardiology 08/22/23 Laura Mock MD, DMD [address] [address] [email or web address] Partners Attributed Provider 09/01/21 07/03/23 [facility] [phone]. Consulting Provider 08/22/23 [facility] Connect 12/24/23 03/11/24 Cyril Morales [address] [place] [address] Nurse Practitioner 02/27/24 documented as of this encounter Additional Source Comments The information contained in this document represents components of the legal health record. It is not the complete legal health record.[facility]
--- OUTSIDE RECORDS SUMMARY | 2024-12-22 16:15 | XMS_ITS | Encounter Summary ---
Author Organization [facility] Address [address] [facility] [address] [place] [address] Phone Care Team Providers Care Manager Intel Name Role Phone Rina Swenson MD Unavailable Laura Mock MD, DMD Primary Car e Provider Laura Mock MD, DMD Unavailable Laura Mock MD, DMD Unavailable Jakob Bob MD Unavailable Jose Cruz MD Unavailable [phone] Laura Mock MD, DMD Unavailable Pcp, Unknown Primary Care Provider UnavailLaura Ascencio MD, DMD Primary Car e Provider Pcp, Unknown Primary Care Provider UnavailNicole Arguello MD Primary Care Provide r Laura Mock MD, DMD Primary Car e Provider Encounter Details Date Type Department Care Team (Late st Contact Info) Description 05/10/2022 Anti-coag visit [facility] Anticoagulation Clinic [address] [place], [place] [phone] [facility] [address] [place] [address] [email or web address] Social History Tobacco Use Types Packs/Day Years [...] Encounters Date Type Department Care Team ([facility] st Contact Info) Description 01/05/2025 11:00 AM EST Pre-Admission Testing [address] [address] Irineo Ruff MD [address] [place] [address] [email or web address] 01/10/2025 Procedure Pass [facility] Endoscopy Department [address] [place] [address] 01/10/2025 7:30 AM EST Hospital Encounter [facility] Endoscopy Department [address] [place] [address] Irineo Ruff MD [address] [place] [address] [email or web address]@[email or web address] 01/10/2025 7:30 AM EST - 01/10/2025 8:15 AM EST Surgery [facility] Endoscopy Department [address] [place] [address] Irineo Ruff MD [address] [place] [address] [email or web address]@[facility] COLONOSCOPY 01/31/2025 1:00 PM EST Office Visit [facility] Cardiovascular Medicine [address] [facility], 5th Floor, [address] [place] [address] Karena Betancur MD [address] [facility] [address] [place] [address] [email or web address] Scheduled Procedures Name Priority Associated Diagnoses Date/Ti [...] as of this encounter Care Teams Manager Intel Relationship Specialty Start Date End Date Laura Mock MD, DMD [address] [address] [email or web address] du PCP - General Internal Medicine 06/04/21 11/11/23 Pcp, Unknown PCP - General 11/12/23 11/16/23 Laura Mock MD, DMD 1 [facility] [address] [place] [address] [email or web address] du PCP - General Internal Medicine 11/17/23 12/28/23 Pcp, Unknown PCP - General 02/28/24 03/04/24 [place] [address] [address] PCP - General 03/05/24 05/17/24 Laura Mock MD, DMD [address] [address] [email or web address] du PCP - General Internal Medicine 05/18/24 Rina Swenson MD Psychiatry 07/09/17 Laura Mock MD, DMD [address] [address] [email or web address] Partners Attributed Provider 09/01/21 07/03/23 Laura Mock MD, DMD [address] [address] [email or web address] du Insurance Assigned Provider 05/31/23 03/01/24 Jakob Bob MD [address] [place] [address] [place] [address] [email or web address] Cardiology 08/22/23 Jose Cruz MD [address] [place] [address] Cardiology 08/22/23 Laura Mock MD, DMD [address] [address] [email or web address] Partners Attributed Provider 09/01/21 07/03/23 [facility] [phone]. Consulting Provider 08/22/23 [facility] Connect 12/24/23 03/11/24 Cyril Morales [facility] [place] [address] Nurse Practitioner 02/27/24 documented as of this encounter Additional Source Comments The information contained in this document represents components of the legal health record. It is not the complete legal health record.[facility]
--- OUTSIDE RECORDS SUMMARY | 2024-12-22 16:15 | XMS_ITS | Encounter Summary ---
Author Organization [facility] Address [facility]ly [facility] [address] [address] Phone Care Team Providers Care Machine Setter Name Role Phone Artie Meehan MD Unavailable Rina Swenson MD Unavailable Laura Mock MD, DMD Primary Car e Provider Laura Mock MD, DMD Unavailable Laura Mock MD, DMD Unavailable Jakob Bob MD Unavailable [phone] Jose Cruz MD Unavailable Laura Mock MD, [...] EST Pre-Admission Testing [facility] [address] [facility] 2nd [place] [address] Irinoe Ruff MD [address] [place] [address] [email or web address] 01/10/2025 Procedure Pass [facility] Endoscopy Department [address] [place] [address] 01/10/2025 7:30 AM EST Hospital Encounter [facility] Endoscopy Department [address] [place] [address] Irineo Ruff MD [address] [place] [address] [email or web address]@[email or web address] 01/10/2025 7:30 AM EST - 01/10/2025 8:15 AM EST Surgery [facility] Endoscopy Department [address] [place] [address] Irineo Ruff MD [address] [place] [address] WALI@[facility] COLONOSCOPY 01/31/2025 1:00 PM EST Office Visit [facility] Cardiovascular Medicine [address] [facility], 5th Floor, [address] [place] [address] Karena Betancur MD [address] [address] [email or web address] Scheduled Procedures Name Priority Associated [...] as of this encounter Care Teams Machine Setter Relationship Specialty Start Date End Date Laura Mock MD, DMD [address] [place] [address] [email or web address] PCP - General Internal Medicine 06/04/21 11/11/23 Pcp, Unknown PCP - General 11/12/23 11/16/23 Laura Mock MD, DMD [address] [place] [address] [email or web address] du PCP - General Internal Medicine 11/17/23 12/28/23 Pcp, Unknown PCP - General 02/28/24 03/04/24 Nicole Newell MD [address] [place] [address] PCP - General 03/05/24 05/17/24 Laura Mock MD, DMD 1 [address] [place] [address] [email or web address] du PCP - General Internal Medicine 05/18/24 Artie Meehan MD [address] [place] [address] Dr [place] [address] Internal Medicine 10/26/17 04/23/22 Rina Swenson MD [address] [place] [address] [place] [address] Psychiatry 07/09/17 Laura Mock MD, DMD [address] [address] [email or web address] Partners Attributed Provider 09/01/21 07/03/23 Laura Mock MD, DMD [address] [address] [email or web address] du Insurance Assigned Provider 05/31/23 03/01/24 Jakob Bob MD [address] [place] [address] [email or web address] Cardiology 08/22/23 Jose Cruz MD [address] [place] [address] Cardiology 08/22/23 Laura Mock MD, DMD [address] [address] [email or web address] du Partners Attributed Provider 09/01/21 07/03/23 [facility] [phone]. Consulting Provider 08/22/23 CAROLANN GREWAL Connect 12/24/23 03/11/24 Cyril Morales [address] [place] [address] Nurse Practitioner 02/27/24 documented as of this encounter Additional Source Comments The information contained in this document represents components of the legal health record. It is not the complete legal health record.[facility]
--- OUTSIDE RECORDS SUMMARY | 2024-12-22 16:16 | XMS_ITS | Encounter Summary ---
Author Organization [facility] Address [address] [facility] [address] [place] [address] Phone Care Team Providers Care Director Intelligence Analysis Programs Name Role Phone Rina Swenson MD Unavailable [...] st Contact Info) Description 05/27/2023 Procedure Pass [facility] Endoscopy Department [address] [place] [address] Social History Tobacco Use Types Packs/Day Years [...] 01/05/2025 11:00 AM EST Pre-Admission Testing [address] [address] Irineo Ruff MD [address] [place] [address] [email or web address] 01/10/2025 Procedure Pass [facility] Endoscopy Department [address] [place] [address] 01/10/2025 7:30 AM EST Hospital Encounter [facility] Endoscopy Department [address] [place] [address] Irineo Ruff MD [address] [place] [address] [email or web address] 01/10/2025 7:30 AM EST - 01/10/2025 8:15 AM EST Surgery [facility] Endoscopy Department [address] [place] [address] Irineo Ruff MD [address] [place] [address] [email or web address]@[email or web address] COLONOSCOPY 01/31/2025 1:00 PM EST Office Visit [facility] Cardiovascular Medicine [address] [facility], 5th Floor, [address] [place] [address] Karena Betancur MD [address] [facility] [address] [place] [address] FRANK@[email or web address] Scheduled Procedures Name [...] as of this encounter Care Teams Director Intelligence Analysis Programs Relationship Specialty Start Date End Date Laura Mock MD, DMD [address] [address] [email or web address] PCP - General Internal Medicine 06/04/21 11/11/23 Pcp, Unknown PCP - General 11/12/23 11/16/23 Laura Mock MD, DMD [address] [address] [email or web address] PCP - General Internal Medicine 11/17/23 12/28/23 Pcp, Unknown PCP - General 02/28/24 03/04/24 [place] [id number] [place] [address] PCP - General 03/05/24 05/17/24 Laura Mock MD, DMD 1 [facility] [address] [place] [address] [email or web address] du PCP - General Internal Medicine 05/18/24 Rina Swenson MD Psychiatry 07/09/17 Laura Mock MD, DMD [address] [address] [email or web address] Partners Attributed Provider 09/01/21 07/03/23 Laura Mock MD, DMD [address] [address] [email or web address] du Insurance Assigned Provider 05/31/23 03/01/24 Jakob Bob MD [address] [place] [address] [place] [address] [email or web address] Cardiology 08/22/23 Jose Cruz MD [address] [place] [address], [address] [place] [address] Cardiology 08/22/23 Laura Mock MD, DMD [address] [address] [email or web address] du Partners Attributed Provider 09/01/21 07/03/23 [facility] [phone]. Consulting Provider 08/22/23 CAROLANN GREWAL Connect 12/24/23 03/11/24 Cyril Morales [facility] [place] [address] Nurse Practitioner 02/27/24 documented as of this encounter Additional Source Comments The information contained in this document represents components of the legal health record. It is not the complete legal health record.[facility]
--- OUTSIDE RECORDS SUMMARY | 2024-12-22 16:16 | XMS_ITS | Encounter Summary ---
Author Organization [facility] Address [address] [employer] [facility] [address] [place] [address] Phone Care Team Providers Care Hydraulic Jack Operator Name Role Phone Rina Swenson MD Unavailable Laura Mock MD, DMD Primary Car e Provider Laura Mock MD, DMD Unavailable Laura Mock MD, DMD Unavailable Jakob Bob MD Unavailable Jose Cruz MD Unavailable [phone] Laura Mock MD, DMD Unavailable Pcp, Unknown Primary Care Provider UnavailLaura Ascencio MD, DMD Primary Car e Provider Pcp, Unknown Primary Care Provider UnavailNicole Arguello MD Primary Care Provide r Laura Mock MD, DMD Primary Car e Provider Encounter Details Date Type Department Care Team (Late st Contact Info) Description 10/02/2022 Procedure Pass [facility] [address] [place] [address] Social History Tobacco Use Types Packs/Day Years [...] Description 01/05/2025 11:00 AM EST Pre-Admission Testing [address] 2nd [place] [address] Irineo Ruff MD [address] [place] [address] WALI@[facility] 01/10/2025 Procedure Pass [facility] Endoscopy Department [address] [place] [address] 01/10/2025 7:30 AM EST Hospital Encounter [facility] Endoscopy Department [address] [place] [address] Irineo Ruff MD [address] [place] [address] WALI@[email or web address] 01/10/2025 7:30 AM EST - 01/10/2025 8:15 AM EST Surgery [facility] Endoscopy Department [address] [place] [address] Irineo Ruff MD [address] [place] [address] [email or web address]@[email or web address] COLONOSCOPY 01/31/2025 1:00 PM EST Office Visit [facility] Cardiovascular Medicine [address] [facility], 5th Floor, [address] [place] [address] Karena Betancur MD [address] [facility] [address] [place] [address] [email or web address] Scheduled Procedures Name Priority Associated [...] documented as of this encounter Care Teams Hydraulic Jack Operator Relationship Specialty Start Date End Date Laura Mock MD, DMD [address] [address] [email or web address] PCP - General Internal Medicine 06/04/21 11/11/23 Pcp, Unknown PCP - General 11/12/23 11/16/23 Laura Mock MD, DMD [address] [address] [email or web address] PCP - General Internal Medicine 11/17/23 12/28/23 Pcp, Unknown PCP - General 02/28/24 03/04/24 [place] [address] [address] PCP - General 03/05/24 05/17/24 Laura Mock MD, DMD [address] [address] [email or web address] PCP - General Internal Medicine 05/18/24 Rina Swenson MD Psychiatry 07/09/17 Laura Mock MD, DMD [address] [address] [email or web address] Partners Attributed Provider 09/01/21 07/03/23 Laura Mock MD, DMD [address] [address] [email or web address] du Insurance Assigned Provider 05/31/23 03/01/24 Jakob Bob MD [address] [place] [address] [email or web address] Cardiology 08/22/23 Jose Cruz MD [address] [place] [address], [address] [place] [address] Cardiology 08/22/23 Laura Mock MD, DMD [address] [address] [email or web address] Partners Attributed Provider 09/01/21 07/03/23 [facility] [phone]. Consulting Provider 08/22/23 [facility] Connect 12/24/23 03/11/24 Cyril Morales [address] [place] [address] Nurse Practitioner 02/27/24 documented as of this encounter Additional Source Comments The information contained in this document represents components of the legal health record. It is not the complete legal health record.[facility]
--- OUTSIDE RECORDS SUMMARY | 2024-12-22 16:16 | XMS_ITS | Encounter Summary ---
Author Organization [facility] Address [address] [place] [address] [place] [address] Phone Care Team Providers Care Firmware Test Engineer Name Role Phone Artie Meehan MD [...] Info) Description 09/17/2021 Procedure Pass [facility] [address] [place] [address] Social History Tobacco Use Types Packs/Day Years [...] EST Pre-Admission Testing [facility] [address] [facility] 2nd [place] [address] Irineo Ruff MD [address] [place] [address] WALI@[facility] 01/10/2025 Procedure Pass [facility] Endoscopy Department [address] [place] [address] 01/10/2025 7:30 AM EST Hospital Encounter [facility] Endoscopy Department [address] [place] [address] Irineo Ruff MD [address] [place] [address] WALI@[facility] 01/10/2025 7:30 AM EST - 01/10/2025 8:15 AM EST Surgery [facility] Endoscopy Department [address] [place] [address] Irineo Ruff MD [address] [place] [address] [place] [address] WALI@[facility] COLONOSCOPY 01/31/2025 1:00 PM EST Office Visit [facility] Cardiovascular Medicine 32 [facility], 5th Floor, [address] [place] [address] Karena Betancur MD [address] [place] [address] [email or web address] Scheduled Procedures Name Priority Associated [...] documented as of this encounter Care Teams Firmware Test Engineer Relationship Specialty Start Date End Date Laura Mock MD, DMD [address] [address] [email or web address] du PCP - General Internal Medicine 06/04/21 11/11/23 Pcp, Unknown PCP - General 11/12/23 11/16/23 Laura Mock MD, DMD [address] [address] [email or web address] PCP - General Internal Medicine 11/17/23 12/28/23 Pcp, Unknown PCP - General 02/28/24 03/04/24 Nicole Newell MD [address] [place] [id number] PCP - General 03/05/24 05/17/24 Laura Mock MD, DMD [address] [address] [email or web address] PCP - General Internal Medicine 05/18/24 Artie Meehan MD [address] [place] [address] [place] [address] Internal Medicine 10/26/17 04/23/22 Rina Swenson MD [address] [place] [address] [place] [address] Psychiatry 07/09/17 Laura Mock MD, DMD [address] [address] [email or web address] Partners Attributed Provider 09/01/21 07/03/23 Laura Mock MD, DMD [address] [address] [email or web address] Insurance Assigned Provider 05/31/23 03/01/24 Jakob Bob MD [address] [place] [address] [place] [address] [email or web address] Cardiology 08/22/23 Jose Cruz MD [address] [place] [address], [address] [place] [address] Cardiology 08/22/23 Laura Mock MD, DMD [address] [address] [email or web address] Partners Attributed Provider 09/01/21 07/03/23 [facility] [phone]. Consulting Provider 08/22/23 [facility] Connect 12/24/23 03/11/24 Cyril Morales [facility] [place] [address] Nurse Practitioner 02/27/24 documented as of this encounter Additional Source Comments The information contained in this document represents components of the legal health record. It is not the complete legal health record.[facility]
--- OUTSIDE RECORDS SUMMARY | 2024-12-22 16:16 | XMS_ITS | Encounter Summary ---
Author Organization [facility] Address [address] [facility] [address] [place] [address] Phone Care Team Providers Care Supervisor Inspection Department Name Role Phone Rina Swenson MD Unavailable Laura Mock MD, DMD Unavailable Jakob Bob MD Unavailable [phone] Jose Cruz MD Unavailable [phone] Laura Mock MD, DMD Primary Car e Provider Pcp, Unknown Primary Care Provider UnavailNicole Arguello MD Primary Care Provide r Laura Mock MD, DMD Primary Car e Provider Encounter Details Date Type Department Care Team (Late st Contact Info) Description 12/04/2023 Procedure Pass [facility] Periop [address] [place] [address] Social History Tobacco Use Types Packs/Day Years [...] 01/05/2025 11:00 AM EST Pre-Admission Testing [address] [address] Irineo Ruff MD [address] [place] [address] [email or web address] 01/10/2025 Procedure Pass [facility] Endoscopy Department [address] [place] [address] 01/10/2025 7:30 AM EST Hospital Encounter [facility] Endoscopy Department [address] [place] [address] Irineo Ruff MD [address] [place] [address] [email or web address] 01/10/2025 7:30 AM EST - 01/10/2025 8:15 AM EST Surgery [facility] Endoscopy Department [address] [place] [address] Irineo Ruff MD 75 [facility], [place] [address] [email or web address] COLONOSCOPY 01/31/2025 1:00 PM EST Office [place] [facility] [place] [address] [facility], 5th Floor, [address] [place] [address] Karena Betancur MD 55 [facility] [address] [place] [address] [email or web address] Scheduled Procedures Name [...] as of this encounter Care Teams Supervisor Inspection Department Relationship Specialty Start Date End Date Laura Mock MD, DMD [address] [address] [email or web address], located [facility]. so PCP - General Internal Medicine 11/17/23 12/28/23 Pcp, Unknown PCP - General 02/28/24 03/04/24 [place] [address] [address] PCP - General 03/05/24 05/17/24 Laura Mock MD, DMD [address] [address] [email or web address], located [facility]. so PCP - General Internal Medicine 05/18/24 Rina Swenson MD Psychiatry 07/09/17 Laura Mock MD, DMD 1 [facility] [address] [place] [address] [email or web address]. du Insurance Assigned Provider 05/31/23 03/01/24 Jkaob Bob MD 75 [facility] [place] [address] [email or web address] Cardiology 08/22/23 Jose Cruz MD 22 [facility] [address] [place] [address] Cardiology 08/22/23 [facility] [phone]. Consulting Provider 08/22/23 [facility] Connect 12/24/23 03/11/24 Cyril Morales [address] [place] [address] Nurse Practitioner 02/27/24 documented as of this encounter Additional Source Comments The information contained in this document represents components of the legal health record. It is not the complete legal health record.[facility]
--- OUTSIDE RECORDS SUMMARY | 2024-12-22 16:16 | XMS_ITS | Encounter Summary ---
Author Organization [facility] Address [address] [place] [address] [place] [address] Phone Care Team Providers Care Extracorporeal Circulation Specialist Name Role Phone Rina Swenson MD [...] 10/29/2022 Anti-coag visit [facility] Cardiovascular Health [address] [place] [address] Catherine Hernández, PharmD [email or web address] Social History Tobacco Use Types Packs/Day [...] 01/05/2025 11:00 AM EST Pre-Admission Testing [address] 2nd [place] [address] Irineo Ruff MD [address] [place] [address] [email or web address] 01/10/2025 Procedure Pass [facility] Endoscopy Department [address] [place] [address] 01/10/2025 7:30 AM EST Hospital Encounter [facility] Endoscopy Department [address] [place] [address] Irineo Ruff MD [address] [place] [address] [email or web address] 01/10/2025 7:30 AM EST - 01/10/2025 8:15 AM EST Surgery [facility] Endoscopy Department [address] [place] [address] Irineo Ruff MD 75 [facility], [place] [address] [email or web address] COLONOSCOPY 01/31/2025 1:00 PM EST Office Visit [facility] Cardiovascular Medicine 32 [facility], 5th Floor, [address] [place] [address] Karena Betancur MD 55 [facility] [address] [place] [address] [email or web address] Scheduled Procedures Name [...] documented as of this encounter Care Teams Extracorporeal Circulation Specialist Relationship Specialty Start Date End Date Laura Mock MD, DMD [address] [address] [email or web address] PCP - General Internal Medicine 06/04/21 11/11/23 Pcp, Unknown PCP - General 11/12/23 11/16/23 Laura Mock MD, DMD 1 [facility] 225 [place] [address] [email or web address] PCP - General Internal Medicine 11/17/23 12/28/23 Pcp, Unknown PCP - General 02/28/24 03/04/24 Nicole Newell MD [address] [place] [address] PCP - General 03/05/24 05/17/24 Laura Mock MD, DMD [address] [address] [email or web address] du PCP - General Internal Medicine 05/18/24 Rina Swenson MD Psychiatry 07/09/17 Laura Mock MD, DMD [address] [address] [email or web address] Partners Attributed Provider 09/01/21 07/03/23 Laura Mock MD, DMD [address] [address] [email or web address] du Insurance Assigned Provider 05/31/23 03/01/24 Jakob Bob MD [address] [place] [address] [place] [address] [email or web address] Cardiology 08/22/23 Jose Cruz MD [address] [place] [address] Cardiology 08/22/23 Laura Mock MD, DMD [address] [address] [email or web address] Partners Attributed Provider 09/01/21 07/03/23 [facility] [phone]. Consulting Provider 08/22/23 [facility] Connect 12/24/23 03/11/24 Cyril Morales [address] [place] [address] Nurse Practitioner 02/27/24 documented as of this encounter Additional Source Comments The information contained in this document represents components of the legal health record. It is not the complete legal health record.[facility]
--- OUTSIDE RECORDS SUMMARY | 2024-12-22 16:16 | XMS_ITS | Encounter Summary ---
Author Organization [facility] Address [address] [facility] [address] [place] [address] Phone Care Team Providers Care Ornament Maker Hand Name Role Phone Rina Swenson MD Unavailable Laura Mock MD, DMD Primary Car e Provider Laura Mock MD, DMD Unavailable Laura Mock MD, DMD Unavailable Jakob Bob MD Unavailable [phone] Jose Cruz MD Unavailable Laura Mock MD, DMD Unavailable Pcp, Unknown Primary Care Provider UnavailLaura Ascencio MD, DMD Primary Car e Provider Pcp, Unknown Primary Care Provider UnavailNicole Arguello MD Primary Care Provide r Laura Mock MD, DMD Primary Car e Provider Encounter Details Date Type Department Care Team (Late st Contact Info) Description 10/26/2022 Anti-coag visit [facility] [address] [place], [place] [phone] Melvin Stewart, [facility] [address] [place] [address] [email or web address] Social History Tobacco Use [...] 01/05/2025 11:00 AM EST Pre-Admission Testing [facility] 45 [facility] 2nd [place] [address] Irineo Ruff MD [address] [place] [address] [place] [address] [email or web address] 01/10/2025 Procedure Pass [facility] Endoscopy Department [address] [place] [address] 01/10/2025 7:30 AM EST Hospital Encounter [facility] Endoscopy Department [address] [place] [address] Irineo Ruff MD [address] [place] [address] [place] [address] [email or web address] 01/10/2025 7:30 AM EST - 01/10/2025 8:15 AM EST Surgery [facility] Endoscopy Department 75 [place] [address] Irineo Ruff MD 75 [facility] [place] [address] [email or web address]@[email or web address] COLONOSCOPY 01/31/2025 1:00 PM EST Office Visit [facility] Cardiovascular Medicine 32 [facility], 5th Floor, [address] [place] [address] Karena Betancur MD 55 [facility] 5[address] [place] [address] [email or web address] Scheduled Procedures Name [...] documented as of this encounter Care Teams Ornament Maker Hand Relationship Specialty Start Date End Date Laura Mock MD, DMD 1 [facility] [address] [place] [address] [email or web address] PCP - General Internal Medicine 06/04/21 11/11/23 Pcp, Unknown PCP - General 11/12/23 11/16/23 Laura Mock MD, DMD 1 [facility] [address] [place] [address] [email or web address] du PCP - General Internal Medicine 11/17/23 12/28/23 Pcp, Unknown PCP - General 02/28/24 03/04/24 [place] [address] [place] [address] PCP - General 03/05/24 05/17/24 Laura Mock MD, DMD [address] [address] [email or web address] du PCP - General Internal Medicine 05/18/24 Rina Swenson MD Psychiatry 07/09/17 Laura Mock MD, DMD [address] [address] [email or web address] Partners Attributed Provider 09/01/21 07/03/23 Laura Mock MD, DMD [address] [address] [email or web address] Insurance Assigned Provider 05/31/23 03/01/24 Jakob Bob MD [address] [place] [address] [place] [address] [email or web address] Cardiology 08/22/23 Jose Cruz MD [address] [place] [address], [address] [place] [address] Cardiology 08/22/23 Laura Mock MD, DMD 1 [facility] [address] [place] [address] [email or web address] Partners Attributed Provider 09/01/21 07/03/23 [facility] [phone]. Consulting Provider 08/22/23 [facility] Connect 12/24/23 03/11/24 Cyril Morales [facility]5 [place] [address] Nurse Practitioner 02/27/24 documented as of this encounter Additional Source Comments The information contained in this document represents components of the legal health record. It is not the complete legal health record.[facility]
--- OUTSIDE RECORDS SUMMARY | 2024-12-22 16:16 | XMS_ITS | Encounter Summary ---
Author Organization [facility] Address [facility] [employer] [address] [address] Phone Care Team Providers Care Clinical Data Manager Name Role Phone Rina Swenson MD Unavailable [phone] Laura Mock MD, DMD Primary Car e [...] Description 01/05/2025 11:00 AM EST Pre-Admission Testing [facility] 45 [facility] 2nd [place] [address] Irineo Ruff MD [address] [place] [address] [email or web address] 01/10/2025 Procedure Pass [facility] Endoscopy Department [address] [place] [address] 01/10/2025 7:30 AM EST Hospital Encounter [facility] Endoscopy Department [address] [place] [address] Irineo Ruff MD [address] [place] [address] [place] [address] [email or web address] 01/10/2025 7:30 AM EST - 01/10/2025 8:15 AM EST Surgery [facility] Endoscopy Department [address] [place] [address] Irineo Ruff MD [address] [place] [address] WALI@[facility] COLONOSCOPY 01/31/2025 1:00 PM EST Office Visit [facility] [place] 32 [facility], 5th Floor, [address] [place] [address] Karena Betancur MD [address] [address] [email or web address] Scheduled Procedures Name Priority Associated Diagnoses Date/Ti [...] of this encounter Care Teams Clinical Data Manager Relationship Specialty Start Date End Date Laura Mock MD, DMD [address] [address] [email or web address] du PCP - General Internal Medicine 06/04/21 11/11/23 Pcp, Unknown PCP - General 11/12/23 11/16/23 Laura Mock MD, DMD [address] [address] [email or web address] PCP - General Internal Medicine 11/17/23 12/28/23 Pcp, Unknown PCP - General 02/28/24 03/04/24 [place] [address] [address] PCP - General 03/05/24 05/17/24 Laura Mock MD, DMD [address] [address] [email or web address] du PCP - General Internal Medicine 05/18/24 Rina Swenson MD Psychiatry 07/09/17 Laura Mock MD, DMD [address] [address] [email or web address] du Partners Attributed Provider 09/01/21 07/03/23 Laura Mock MD, DMD [address] [address] [email or web address] du Insurance Assigned Provider 05/31/23 03/01/24 Jakob Bob MD [address] [place] [address] [email or web address] Cardiology 08/22/23 Jose Cruz MD [address] [place] [address] [email or web address] Cardiology 08/22/23 Laura Mock MD, DMD [address] [address] [email or web address] du Partners Attributed Provider 09/01/21 07/03/23 [facility] [phone]. Consulting Provider 08/22/23 [facility] Connect 12/24/23 03/11/24 Cyril Morales [address] [place] [address] Nurse Practitioner 02/27/24 documented as of this encounter Additional Source Comments The information contained in this document represents components of the legal health record. It is not the complete legal health record.[facility]
--- OUTSIDE RECORDS SUMMARY | 2024-12-22 16:17 | XMS_ITS | Encounter Summary ---
Author Organization [facility] Address [facility] [employer] [facility] [address] [place] [address] Phone Care Team Providers Care Meat Processing Center Manager Name Role Phone Artie Meehan MD Primary Care Provider Artie Meehan MD Unavailable [phone] Rina Swenson MD Unavailable Laura Mock MD, [...] st Contact Info) Description 05/15/2018 Procedure Pass [facility], [address] [address] Social History Tobacco Use Types Packs/Day Years [...] 01/05/2025 11:00 AM EST Pre-Admission Testing [address] 2nd [place] [address] Irineo Ruff MD [address] [place] [address] [place] [address] [email or web address] 01/10/2025 Procedure Pass [facility] Endoscopy Department [address] [place] [address] 01/10/2025 7:30 AM EST Hospital Encounter [facility] Endoscopy Department [address] [place] [address] Irineo Ruff MD [address] [place] [address] [email or web address] 01/10/2025 7:30 AM EST - 01/10/2025 8:15 AM EST Surgery [facility] Endoscopy Department [address] [place] [address] Irineo Ruff MD [address] [place] [address] [email or web address]@[email or web address] COLONOSCOPY 01/31/2025 1:00 PM EST Office Visit [facility] Cardiovascular Medicine [address] [place] [address], 5th Floor, [address] [place] [address] Karena Betancur MD [address] [place] [address] [email or web address] Scheduled Procedures Name Priority Associated [...] documented as of this encounter Care Teams Meat Processing Center Manager Relationship Specialty Start Date End Date Artie Meehan MD [address] [place] [address] PCP - General Internal Medicine 10/26/17 06/03/21 Laura Mock MD, DMD [address] [address] [email or web address] PCP - General Internal Medicine 06/04/21 11/11/23 Pcp, Unknown PCP - General 11/12/23 11/16/23 Laura Mock MD, DMD [address] [address] [email or web address] PCP - General Internal Medicine 11/17/23 12/28/23 Pcp, Unknown PCP - General 02/28/24 03/04/24 Nicole Newell MD [address] [place] [address] PCP - General 03/05/24 05/17/24 Laura Mock MD, DMD [address] [address] [email or web address] du PCP - General Internal Medicine 05/18/24 Artie Meehan MD [address] [place] [address] [address] [place] [address] Internal Medicine 10/26/17 04/23/22 Rina Swenson MD [address] [place] [address] Dr [address] [place] [address] Psychiatry 07/09/17 Laura Mock MD, DMD [address] [address] [email or web address] Partners Attributed Provider 09/01/21 07/03/23 Laura Mock MD, DMD [address] [address] [email or web address] du Insurance Assigned Provider 05/31/23 03/01/24 Jakob Bob MD [address] [place], [place] [address] [place] [address] [email or web address] Cardiology 08/22/23 Jose Cruz MD [address] [place] [address], [facility] [address] [place] [address] Cardiology 08/22/23 Laura Mock MD, DMD 1 [facility] [address] [place] [address] [email or web address] Partners Attributed Provider 09/01/21 07/03/23 [facility] [phone]. Consulting Provider 08/22/23 [facility] Connect 12/24/23 03/11/24 Cyril Morales [address] [place] [phone] Nurse Practitioner 02/27/24 documented as of this encounter Additional Source Comments The information contained in this document represents components of the legal health record. It is not the complete legal health record.[facility]
--- OUTSIDE RECORDS SUMMARY | 2024-12-22 16:17 | XMS_ITS | Encounter Summary ---
Author Organization [facility] Address [facility] [address] [place] [address] Phone Care Team Providers Care Prepress Specialist Name Role Phone Artie Meehan MD Primary Care Provider Artie Meehan MD Unavailable [phone] Rina Swenson MD Unavailable Laura Mock MD, [...] Info) Description 12/11/2018 Ancillary Orders Virtual Department [address] [place] [address] Artie Meehan MD [address] [place] [address] [place] [address] Breast screening Social History Tobacco Use Types [...] 01/05/2025 11:00 AM EST Pre-Admission Testing [address] [address] Irineo Ruff MD [address] [place] [address] [email or web address]@[email or web address] 01/10/2025 Procedure Pass [facility] Endoscopy Department [address] [place] [address] 01/10/2025 7:30 AM EST Hospital Encounter [facility] Endoscopy Department [address] [place] [address] Irineo Ruff MD [address] [place] [address] [email or web address]@[facility] 01/10/2025 7:30 AM EST - 01/10/2025 8:15 AM EST Surgery [facility] Endoscopy Department [address] [place] [address] Irineo Ruff MD [address] [place] [address] [place] [address] [email or web address]@[facility] COLONOSCOPY 01/31/2025 1:00 PM EST Office [place] [facility] [place] 32 [facility], 5th Floor, [address] [place] [address] Karena Betancur MD 55 [facility] [address] [place] [address] [email or web address] Scheduled Procedures Name Priority [...] lowers the sensitivity of mammography. POS - [id number] Narrative 01/05/2019 1:52 PM EST Full-field digital [...] whichlowers the sensitivity of mammography. POS - [id number] Artie Meehan MD IMG MG EXAMS Final [...] documented as of this encounter Care Teams Prepress Specialist Relationship Specialty Start Date End Date Artie Meehan MD [address] [place] [address] [place] [address] PCP - General Internal Medicine 10/26/17 06/03/21 Laura Mock MD, DMD [address] [address] [email or web address] PCP - General Internal Medicine 06/04/21 11/11/23 Pcp, Unknown PCP - General 11/12/23 11/16/23 Laura Mock MD, DMD [address] [address] [email or web address] du PCP - General Internal Medicine 11/17/23 12/28/23 Pcp, Unknown PCP - General 02/28/24 03/04/24 [place] [address] [address] PCP - General 03/05/24 05/17/24 Laura Mock MD, DMD [address] [address] [email or web address] du PCP - General Internal Medicine 05/18/24 Artie Meehan MD [address] [place] [address] Dr [address] [place] [address] Internal Medicine 10/26/17 04/23/22 Rina Swenson MD [address] [place] [address] Dr [address] [place] [address] Psychiatry 07/09/17 Laura Mock MD, DMD [address] [address] [email or web address] du Partners Attributed Provider 09/01/21 07/03/23 Laura Mock MD, DMD [address] [address] [email or web address] du Insurance Assigned Provider 05/31/23 03/01/24 Jakob Bob MD [address] [place] [address] [place] [address] [email or web address] Cardiology 08/22/23 Jose Cruz MD 22 [facility], [address] [place] [address] [email or web address] Cardiology 08/22/23 Laura Mock MD, DMD [address] [place] [address] [address] [place] [address] [email or web address] Partners Attributed Provider 09/01/21 07/03/23 [facility] [phone]. Consulting Provider 08/22/23 [facility] Connect 12/24/23 03/11/24 Cyril Morales [address] [place] [address] Nurse Practitioner 02/27/24 documented as of this encounter Additional Source Comments The information contained in this document represents components of the legal health record. It is not the complete legal health record.[facility]
--- OUTSIDE RECORDS SUMMARY | 2024-12-22 16:17 | XMS_ITS | Encounter Summary ---
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 Social History [...] ([facility] Contact Info) Description 01/05/2025 11:00 AM EST Pre-Admission Testing [address] 2nd [place] [address] Irineo Ruff MD [address] [place] [address] [email or web address] 01/10/2025 Procedure Pass [facility] Endoscopy Department [address] [place] [address] 01/10/2025 7:30 AM EST Hospital Encounter [facility] Endoscopy Department [address] [place] [address] Irineo Ruff MD [address] [place] [address] [email or web address] 01/10/2025 7:30 AM EST - 01/10/2025 8:15 AM EST Surgery [facility] Endoscopy Department [address] [place] [address] Irineo Ruff MD [address] [place] [address] [place] [address] [email or web address] [email or web address] 01/31/2025 1:00 PM EST Office Visit [facility] [address] [facility], 5th Floor, [address] [place] [address] Karena Betancur MD [address] [facility] [address] [place] [address] [email or web address] Scheduled Procedures Name Priority Associated Diagnoses Date/Ti me COLONOSCOPY Abnormal colonoscopy 01/10/2025 7:30 AM EST documented as of this encounter Procedures Procedure Name Priority Date/Time Associated Diagnosis Comments PT-INR STAT 05/23/2018 11:36 AM EDT 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 documented in this encounter Results * (ABNORMAL) PT-INR (05/23/2018 11:36 AM EDT) PT 14.8(H) 10.2 - 12.9 sec [facility] INR 1.3(H) 0.9 - 1.1 [facility] Comment:Therapeutic range fo r oral Vitamin K antagonists: 2.0-3.5 Blood 05/23/2018 11:3 6 AM EDT 05/23/2018 11:39 AM EDT Artie Meehan MD LAB BLOOD ORDERABLES Neela l Result Performing Organization Address City/State/[facility] Co de Phone Number [address] [address] documented in this encounter Visit Diagnoses Diagnosis 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 Abnormal colonoscopy documented in this encounter Additional Health Concerns Infection Onset Date Last Indicated Resolved Time CoV-Presumed 03/23/2022 03/23/2022 04/13/2022 1:23 AM EST CoV-Risk 11/12/2023 11/12/2023 11/12/2023 5:12 PM EDT COVID-19 11/12/2023 11/12/2023 12/03/2023 1:21 AM EDT documented as of this encounter Care Teams Plant Specialist Relationship Specialty Start Date End Date Artie Meehan MD [address] [place] [address] [place] [address] PCP - General Internal Medicine 10/26/17 06/03/21 Laura Mock MD, DMD 1 [facility] [address] [place] [address] [email or web address] du PCP - General Internal Medicine 06/04/21 11/11/23 Pcp, Unknown PCP - General 11/12/23 11/16/23 Laura Mock MD, DMD [address] [address] [email or web address] du PCP - General Internal Medicine 11/17/23 12/28/23 Pcp, Unknown PCP - General 02/28/24 03/04/24 Nicole Newell MD [address] [place] [address] PCP - General 03/05/24 05/17/24 Laura Mock MD, DMD [address] [address] [email or web address] du PCP - General Internal Medicine 05/18/24 Artie Meehan MD [address] [place] [address] [place] [address] Internal Medicine 10/26/17 04/23/22 Rina Swenson MD [address] [place] [address] [place] [address] Psychiatry 07/09/17 Laura Mock MD, DMD [address] [address] [email or web address] Partners Attributed Provider 09/01/21 07/03/23 Laura Mock MD, DMD [address] [address] [email or web address] Insurance Assigned Provider 05/31/23 03/01/24 Jakob Bob MD [address] [place] [address] [email or web address] Cardiology 08/22/23 Jose Cruz MD [address] [place] [address] Cardiology 08/22/23 Laura Mock MD, DMD [address] [address] [email or web address] Partners Attributed Provider 09/01/21 07/03/23 [facility] [phone]. Consulting Provider 08/22/23 [facility] Connect 12/24/23 03/11/24 Cyril Morales [address] [place] [address] Nurse Practitioner 02/27/24 documented as of this encounter Additional Source Comments The information contained in this document represents components of the legal health record. It is not the complete legal health record.[facility]
--- OUTSIDE RECORDS SUMMARY | 2024-12-22 16:17 | XMS_ITS | Encounter Summary ---
Author Organization [facility] Address [facility] [employer] [address] [place] [address] Phone Care Team Providers Care Striker Off Name Role Phone Artie Meehan MD Primary Care Provider Artie Meehan MD Unavailable [phone] Rina Swenson MD Unavailable Laura Mock MD, DMD Primary Car e Provider Laura Mock MD, DMD Unavailable Laura Mock MD, DMD Unavailable Jakob Bob MD Unavailable Jose Cruz MD Unavailable [phone] Laura Mock MD, DMD Unavailable Pcp, Unknown Primary Care Provider UnavailLaura Ascencio MD, DMD Primary Car e Provider Pcp, Unknown Primary Care Provider UnavailNicole Arguello MD Primary Care Provide r Laura Mock MD, DMD Primary Car e Provider Encounter Details Date Type Department Care Team (Late st Contact Info) Description 11/27/2018 Transcribe Orders [facility] [address] [place] [address] Artie Meehan MD [address] [place] [address] [place] [address] Social History Tobacco Use Types Packs/Day Years [...] 01/05/2025 11:00 AM EST Pre-Admission Testing [address] [address] Irineo Ruff MD [address] [place] [address] [email or web address] 01/10/2025 Procedure Pass [facility] Endoscopy Department [address] [place] [address] 01/10/2025 7:30 AM EST Hospital Encounter [facility] Endoscopy Department [address] [place] [address] Irineo Ruff MD [address] [place] [address] [email or web address] 01/10/2025 7:30 AM EST - 01/10/2025 8:15 AM EST Surgery [facility] Endoscopy Department [address] [place] [address] Irineo Ruff MD [address] [place] [address] [place] [address] [email or web address] COLONOSCOPY 01/31/2025 1:00 PM EST Office [place] [facility] [place] Medicine 32 [facility], 5th Floor, [address] [place] [address] Karena Betancur MD [address] [facility] [address] [place] [address] [email or web address] Scheduled Procedures Name Priority [...] documented as of this encounter Care Teams Striker Off Relationship Specialty Start Date End Date Artie Meehan MD [address] [place] [address] [place] [address] PCP - General Internal Medicine 10/26/17 06/03/21 Laura Mock MD, DMD [address] [address] [email or web address] du PCP - General Internal Medicine 06/04/21 11/11/23 Pcp, Unknown PCP - General 11/12/23 11/16/23 Laura Mock MD, DMD [address] [address] [email or web address] PCP - General Internal Medicine 11/17/23 12/28/23 Pcp, Unknown PCP - General 02/28/24 03/04/24 [place] [address] [address] PCP - General 03/05/24 05/17/24 Laura Mock MD, DMD [address] [address] [email or web address] du PCP - General Internal Medicine 05/18/24 Artie Meehan MD [address] [place] [address] [place] [address] Internal Medicine 10/26/17 04/23/22 Rina Swenson MD [address] [place] [address] Dr [address] [place] [address] Psychiatry 07/09/17 Laura Mock MD, DMD [address] [address] [email or web address] du Partners Attributed Provider 09/01/21 07/03/23 Laura Mock MD, DMD [address] [address] [email or web address] du Insurance Assigned Provider 05/31/23 03/01/24 Jakob Bob MD [address] [place], [place] [address] [place] [address] [email or web address] Cardiology 08/22/23 Jose Cruz MD [address] [place], [place] [address] [address] Cardiology 08/22/23 Laura Mock MD, DMD 1 [facility] [address] [place] [address] [email or web address] Partners Attributed Provider 09/01/21 07/03/23 [facility] [phone]. Consulting Provider 08/22/23 [facility] Connect 12/24/23 03/11/24 Cyril Morales [address] [place] [address] Nurse Practitioner 02/27/24 documented as of this encounter Additional Source Comments The information contained in this document represents components of the legal health record. It is not the complete legal health record.[facility]
--- OUTSIDE RECORDS SUMMARY | 2024-12-22 16:17 | XMS_ITS | Encounter Summary ---
Author Organization [facility] [place] Address [facility] [employer] [address] [address] Phone Care Team Providers Care Screening Unit Registered Nurse Name Role Phone Rina Swenson MD [...] Description 01/05/2025 11:00 AM EST Pre-Admission Testing [address] [address] Irineo Ruff MD [address] [place] [address] [email or web address] 01/10/2025 Procedure Pass [facility] Endoscopy Department [address] [place] [address] 01/10/2025 7:30 AM EST Hospital Encounter [facility] Endoscopy Department [address] [place] [address] Irineo Ruff MD [address] [place] [address] [email or web address] 01/10/2025 7:30 AM EST - 01/10/2025 8:15 AM EST Surgery [facility] Endoscopy Department [address] [place] [address] Irineo Ruff MD [address] [place] [address] [email or web address] COLONOSCOPY 01/31/2025 1:00 PM EST Office Visit [facility] Cardiovascular Medicine 32 [facility], 5th Floor, [address] [place] [address] Karena Betancur MD 55 [facility] [address] [place] [address] [email or web address] Scheduled Procedures Name Priority Associated [...] documented as of this encounter Care Teams Screening Unit Registered Nurse Relationship Specialty Start Date End Date Laura Mock MD, DMD [address] [address] [email or web address] du PCP - General Internal Medicine 06/04/21 11/11/23 Pcp, Unknown PCP - General 11/12/23 11/16/23 Laura Mock MD, DMD [address] [address] [email or web address] du PCP - General Internal Medicine 11/17/23 12/28/23 Pcp, Unknown PCP - General 02/28/24 03/04/24 Nicole Newell MD [address] [place] [id number] PCP - General 03/05/24 05/17/24 Laura Mock MD, DMD [address] [address] [email or web address] du PCP - General Internal Medicine 05/18/24 Rina Swenson MD Psychiatry 07/09/17 Laura Mock MD, DMD [address] [address] [email or web address] du Partners Attributed Provider 09/01/21 07/03/23 Laura Mock MD, DMD [address] [address] [email or web address] du Insurance Assigned Provider 05/31/23 03/01/24 Jakob Bob MD 75 [facility] [place] [address] [email or web address] Cardiology 08/22/23 Jose Cruz MD [address] [place] [address] Cardiology 08/22/23 Laura Mock MD, DMD [address] [address] [email or web address] du Partners Attributed Provider 09/01/21 07/03/23 [facility] [phone]. Consulting Provider 08/22/23 [facility] Connect 12/24/23 03/11/24 Cyril Morales [address] [place] [address] Nurse Practitioner 02/27/24 documented as of this encounter Additional Source Comments The information contained in this document represents components of the legal health record. It is not the complete legal health record.[facility] [place]
--- OUTSIDE RECORDS SUMMARY | 2024-12-22 16:17 | XMS_ITS | Encounter Summary ---
Author Organization [facility] Address [address] [facility] [address] [place] [address] Phone Care Team Providers Care Heel Builder Machine Name Role Phone Rina Swenson MD Unavailable [...] st Contact Info) Description 10/09/2022 Procedure Pass [facility] CT Imaging, [place] [address] [place] [address] Social History Tobacco Use Types Packs/Day Years [...] 11:00 AM EST Pre-Admission Testing [facility] 2nd [place] [address] Irineo Ruff MD [address] [place] [address] [email or web address] 01/10/2025 Procedure Pass [facility] Endoscopy Department [address] [place] [address] 01/10/2025 7:30 AM EST Hospital Encounter [facility] Endoscopy Department [address] [place] [address] Irineo Ruff MD [address] [place] [address] [email or web address] 01/10/2025 7:30 AM EST - 01/10/2025 8:15 AM EST Surgery [facility] Endoscopy Department [address] [place] [address] Irineo Ruff MD [address] [place] [address] [email or web address] [email or web address] 01/31/2025 1:00 PM EST Office Visit [facility] Cardiovascular Medicine 32 [facility], 5th Floor, [address] [place] [address] Karena Betancur MD 55 [facility] [address] [place] [address] [email or web address] Scheduled Procedures Name Priority Associated Diagnoses Date/Ti [...] documented as of this encounter Care Teams Heel Builder Machine Relationship Specialty Start Date End Date Laura Mock MD, DMD [address] [address] [email or web address] PCP - General Internal Medicine 06/04/21 11/11/23 Pcp, Unknown PCP - General 11/12/23 11/16/23 Laura Mock MD, DMD [address] [address] [email or web address] PCP - General Internal Medicine 11/17/23 12/28/23 Pcp, Unknown PCP - General 02/28/24 03/04/24 [place] [address] [address] PCP - General 03/05/24 05/17/24 Laura Mock MD, DMD [address] [address] [email or web address] du PCP - General Internal Medicine 05/18/24 Rina Swenson MD Psychiatry 07/09/17 Laura Mock MD, DMD [address] [address] [email or web address] Partners Attributed Provider 09/01/21 07/03/23 Laura Mock MD, DMD [address] [address] [email or web address] du Insurance Assigned Provider 05/31/23 03/01/24 Jakob Bob MD 75 [facility] [place] [address] [email or web address] Cardiology 08/22/23 Jose Cruz MD [address] [place] [address], [address] [place] [address] Cardiology 08/22/23 Laura Mock MD, DMD [address] [address] [email or web address] Partners Attributed Provider 09/01/21 07/03/23 [facility] [phone]. Consulting Provider 08/22/23 [facility] Connect 12/24/23 03/11/24 Cyril Morales [address] [place] [address] Nurse Practitioner 02/27/24 documented as of this encounter Additional Source Comments The information contained in this document represents components of the legal health record. It is not the complete legal health record.[facility]
--- OUTSIDE RECORDS SUMMARY | 2024-12-22 16:17 | XMS_ITS | Encounter Summary ---
Author Organization [facility] Address [facility] [address] [place] [address] Phone Care Team Providers Care Banquet Supervisor Name Role Phone Artie Meehan MD Primary Care Provider Artie Meehan MD Primary Care Provider Artie Meehan MD Unavailable Rina Swenson MD Unavailable Laura Mock MD, DMD Primary Car e Provider Laura Mock MD, DMD Unavailable Laura Mock MD, DMD Unavailable Jakob Bob MD Unavailable [phone] Jose Cruz MD Unavailable [phone] Laura Mock MD, DMD Unavailable Pcp, Unknown Primary Care Provider UnavailLaura Ascencio MD, DMD Primary Car e Provider Pcp, Unknown Primary Care Provider UnavailNicole Arguello MD Primary Care Provide r Laura Mock MD, DMD Primary Car e Provider Encounter Details Date Type Department Care Team (Late st Contact Info) Description 08/19/2017 Ancillary Orders Virtual Department [address] [place] [address] Artie Meehan MD [address] [place] [address] [place] [address] Breast screening Social History Tobacco Use Types [...] 01/05/2025 11:00 AM EST Pre-Admission Testing [address] [place] [address] Irineo Ruff MD [address] [place] [address] [email or web address] 01/10/2025 Procedure Pass [facility] Endoscopy Department [address] [place] [address] 01/10/2025 7:30 AM EST Hospital Encounter [facility] Endoscopy Department [address] [place] [address] Irineo Ruff MD [address] [place] [address] [email or web address] 01/10/2025 7:30 AM EST - 01/10/2025 8:15 AM EST Surgery [facility] Endoscopy Department [address] [place] [address] Irineo Ruff MD [address] [place] [address] [place] [address] [email or web address] COLONOSCOPY 01/31/2025 1:00 PM EST Office Visit [facility] Cardiovascular Medicine [address] [facility], 5th Floor, [address] [place] [address] Karena Betancur MD 55 [facility] [address] [place] [address] [email or web address] Scheduled Procedures Name Priority [...] lowers the sensitivity of mammography. POS - [id number] Narrative 09/12/2017 2:03 PM EDT Full-field digital [...] whichlowers the sensitivity of mammography. POS - [id number] Artie Meehan MD IMG MG EXAMS Final [...] documented as of this encounter Care Teams Banquet Supervisor Relationship Specialty Start Date End Date Artie Meehan MD [address] [place] [address] [place] [address] PCP - General Internal Medicine 07/09/17 10/25/17 Artie Meehan MD [address] [place] [address] [place] [address] PCP - General Internal Medicine 10/26/17 06/03/21 Laura Mock MD, DMD 1 [facility] [address] [place] [address] [email or web address] PCP - General Internal Medicine 06/04/21 11/11/23 Pcp, Unknown PCP - General 11/12/23 11/16/23 Laura Mock MD, DMD 1 [facility] [address] [place] [address] [email or web address] PCP - General Internal Medicine 11/17/23 12/28/23 Pcp, Unknown PCP - General 02/28/24 03/04/24 Nicole Newell MD [address] [place] [address] PCP - General 03/05/24 05/17/24 Laura Mock MD, DMD [address] [address] [email or web address] du PCP - General Internal Medicine 05/18/24 Artie Meehan MD [address] [place] [address] [place] [address] Internal Medicine 10/26/17 04/23/22 Rina Swenson MD [address] [place] [address] [place] [address] Psychiatry 07/09/17 Laura Mock MD, DMD 1 [facility] [address] [place] [address] [email or web address] Partners Attributed Provider 09/01/21 07/03/23 Laura Mock MD, DMD 1 [facility] [address] [place] [address] [place] [address] [email or web address] Insurance Assigned Provider 05/31/23 03/01/24 Jakob Bob MD [address] [facility] [place] [address] [email or web address] Cardiology 08/22/23 Jose Cruz MD [address] [place] [address] [address] [place] [address] [email or web address] Cardiology 08/22/23 Laura Mock MD, DMD [address] [place] [address] [address] [place] [address] [email or web address] Attributed Provider 09/01/21 07/03/23 [facility] [phone]. Consulting Provider 08/22/23 [facility] Connect 12/24/23 03/11/24 Cyril Morales [address] [place] [address] Nurse Practitioner 02/27/24 documented as of this encounter Additional Source Comments The information contained in this document represents components of the legal health record. It is not the complete legal health record.[facility]
--- OUTSIDE RECORDS SUMMARY | 2024-12-22 16:17 | XMS_ITS | Encounter Summary ---
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) [...] Description 01/05/2025 11:00 AM EST Pre-Admission Testing [facility] [address] [facility] 2nd [place] [address] Irineo Ruff MD [address] [place] [address] [email or web address] 01/10/2025 Procedure Pass [facility] Endoscopy Department [address] [place] [address] 01/10/2025 7:30 AM EST Hospital Encounter [facility] Endoscopy Department [address] [place] [address] Irineo Ruff MD [address] [place] [address] [email or web address] 01/10/2025 7:30 AM EST - 01/10/2025 8:15 AM EST Surgery [facility] Endoscopy Department [address] [place] [address] Irineo Ruff MD [address] [place] [address] [place] [address] [email or web address] [email or web address] 01/31/2025 1:00 PM EST Office Visit [facility] [address] [facility], 5th Floor, [address] [place] [address] Karena Betancur MD 55 [facility] [address] [place] [address] [email or web address] Scheduled Procedures Name [...] documented as of this encounter Care Teams Light Oil Operator Relationship Specialty Start Date End Date Artie Meehan MD [address] [place] [address] [place] [address] PCP - General Internal Medicine 10/26/17 06/03/21 Laura Mock MD, DMD [address] [address] [email or web address] PCP - General Internal Medicine 06/04/21 11/11/23 Pcp, Unknown PCP - General 11/12/23 11/16/23 Laura Mock MD, DMD 1 [facility] [address] [place] [address] [email or web address] PCP - General Internal Medicine 11/17/23 12/28/23 Pcp, Unknown PCP - General 02/28/24 03/04/24 [place] [address] [address] PCP - General 03/05/24 05/17/24 Laura Mock MD, DMD [address] [address] [email or web address] du PCP - General Internal Medicine 05/18/24 Artie Meehan MD [address] [place] [address] Dr Dior [facility] [address] Internal Medicine 10/26/17 04/23/22 Rina Swenson MD [address] [place] [address] [place] [address] Psychiatry 07/09/17 Laura Mock MD, DMD [address] [address] [email or web address] Partners Attributed Provider 09/01/21 07/03/23 Laura Mock MD, DMD [address] [address] [email or web address] du Insurance Assigned Provider 05/31/23 03/01/24 Jakob Bob MD [address] [facility] [address] [place] [address] [email or web address] Cardiology 08/22/23 Jose Cruz MD 22 [facility], [address] [place] [address] [email or web address] Cardiology 08/22/23 Laura Mock MD, DMD 1 [facility] [address] [place] [address] [email or web address] du Partners Attributed Provider 09/01/21 07/03/23 [facility] [phone]. Consulting Provider 08/22/23 [facility] 12/24/23 03/11/24 Cyril Morales [facility] [place] [address] Nurse Practitioner 02/27/24 documented as of this encounter Additional Source Comments The information contained in this document represents components of the legal health record. It is not the complete legal health record.[facility]
--- OUTSIDE RECORDS SUMMARY | 2024-12-22 16:17 | XMS_ITS | Encounter Summary ---
Author Organization [facility] Address [address] [address] Phone Care Team Providers Care Campus Recruiting Internship Name Role Phone Rina Swenson MD Unavailable Laura Mock MD, DMD Primary Car e Provider Laura Mock MD, DMD Unavailable Laura Mock MD, DMD Unavailable Jakob Bob MD Unavailable Jose Cruz MD Unavailable [phone] Laura Mock MD, DMD Unavailable Pcp, Unknown Primary Care Provider UnavailLaura Ascencio MD, DMD Primary Car e Provider Pcp, Unknown Primary Care Provider UnavailNicole Arguello MD Primary Care Provide r Laura Mock MD, DMD Primary Car e Provider Encounter Details Date Type Department Care Team (Late st Contact Info) Description 10/06/2022 Anti-coag visit [facility] Anticoagulation Clinic 75 [place] [address] Abbie Prieto, PharmD [address] [place] [address] [email or web address] Social History Tobacco Use Types [...] EST Pre-Admission Testing [facility] [address] [facility] 2nd [place] [address] Irineo Ruff MD [address] [place] [address] [email or web address] 01/10/2025 Procedure Pass [facility] Endoscopy Department [address] [place] [address] 01/10/2025 7:30 AM EST Hospital Encounter [facility] Endoscopy Department [address] [place] [address] Irineo Ruff MD [address] [place] [address] [email or web address] 01/10/2025 7:30 AM EST - 01/10/2025 8:15 AM EST Surgery [facility] Endoscopy Department 75 [place] [address] Irineo Ruff MD 75 [facility] [place] [address] [email or web address] COLONOSCOPY 01/31/2025 1:00 PM EST Office Visit [facility] Cardiovascular Medicine 32 [facility], 5th Floor, [address] [place] [address] Karena Betancur MD 55 [facility] [address] [place] [address] [email or web address] Scheduled Procedures Name Priority [...] documented as of this encounter Care Teams Campus Recruiting Internship Relationship Specialty Start Date End Date Laura Mock MD, DMD 1 [facility] 225 [place] [address] [email or web address] PCP - General Internal Medicine 06/04/21 11/11/23 Pcp, Unknown PCP - General 11/12/23 11/16/23 Laura Mock MD, DMD 1 [facility] [address] [place] [address] [email or web address] du PCP - General Internal Medicine 11/17/23 12/28/23 Pcp, Unknown PCP - General 02/28/24 03/04/24 [place]ell [place] [address] [place] [address] PCP - General 03/05/24 05/17/24 Laura Mock MD, DMD [address] [address] [email or web address] du PCP - General Internal Medicine 05/18/24 Rina Swenson MD Psychiatry 07/09/17 Laura Mock MD, DMD [address] [address] [email or web address] Partners Attributed Provider 09/01/21 07/03/23 Laura Mock MD, DMD [address] [address] [email or web address] du Insurance Assigned Provider 05/31/23 03/01/24 Jakob Bob MD [address] [place] [address] [place] [address] [email or web address] Cardiology 08/22/23 Jose Cruz MD [address] [place] [address], [address] [address] Cardiology 08/22/23 Laura Mock MD, DMD 1 [facility] [address] [place] [address] [email or web address] Partners Attributed Provider 09/01/21 07/03/23 [facility] [phone]. Consulting Provider 08/22/23 [facility] 12/24/23 03/11/24 Cyril Morales [address] [place] [address] Nurse Practitioner 02/27/24 documented as of this encounter Additional Source Comments The information contained in this document represents components of the legal health record. It is not the complete legal health record.[facility]
--- OUTSIDE RECORDS SUMMARY | 2024-12-22 16:17 | XMS_ITS | Encounter Summary ---
Author Organization [facility] Address [facility] [employer] [address] [address] Phone Care Team Providers Care Energy Advisor Name Role Phone Tasha [place] MD Primary Care Provider [phone] Artie Meehan MD Primary Care Provider [phone] Artie Meehan MD Primary Care Provider [phone] Artie Meehan MD Unavailable Meera Campos Unavailable [phone] Amber Raygoza NP Unavailable Elvis Rendon MD Unavailable [phone] Modesta Rivera MD Unavailable [phone] Carlin Newman MD Unavailable [phone] Patti Bello MD Unavailable Lucila Melendez MD Unavailable [phone] Juan J Avitia DO Unavailable [phone] Tasha Greenwood MD Unavailable Mekhi Hernandez MD Unavailable [phone] Leora Fish-C Unavailable Angel Klein MD Unavailable [phone] Fredy Bruno MD Unavailable Sejal Dick MD Unavailable [phone] Cadence Rouse MD Unavailable [phone] Baljinder Hinson MD Unavailable [phone] Rina Swenson MD Unavailable [phone] Laura Mock MD, DMD Primary Car e [...] Procedure Pass [facility] 75 [place] [address] Social History Tobacco Use Types Packs/Day Years [...] 01/05/2025 11:00 AM EST Pre-Admission Testing [address]nd [place] [address] Irineo Ruff MD 75 [place] [address] [email or web address] 01/10/2025 Procedure Pass [facility] Endoscopy Department [address] [place] [address] 01/10/2025 7:30 AM EST Hospital Encounter [facility] Endoscopy Department [address] [place] [address] Irineo Ruff MD 75 [place] [address] [email or web address] 01/10/2025 7:30 AM EST - 01/10/2025 8:15 AM EST Surgery [facility] Endoscopy Department [address] [place] [address] Irineo Ruff MD [address] [place] [address] [email or web address] 01/31/2025 1:00 PM EST Office Visit [facility] 32 [facility], 5th Floor, [address] [place] [address] Karena Betancur MD [address] [address] [email or web address] Scheduled Procedures Name Priority Associated Diagnoses [...] documented as of this encounter Care Teams Energy Advisor Relationship Specialty Start Date End Date Tasha [place] MD [address] [place] [address], 2nd [place] [address] [email or web address] PCP - General 08/24/13 07/08/17 Artie Meehan MD [address] [place] [address] Dr [address] [place] [address] PCP - General Internal Medicine 07/09/17 10/25/17 Artie Meehan MD [address] [place] [address] Dr [address] [place] [address] PCP - General Internal Medicine 10/26/17 06/03/21 Laura Mock MD, DMD [address] [address] [email or web address] PCP - General Internal Medicine 06/04/21 11/11/23 Pcp, Unknown PCP - General 11/12/23 11/16/23 Laura Mock MD, DMD [address] [address] [email or web address] PCP - General Internal Medicine 11/17/23 12/28/23 Pcp, Unknown PCP - General 02/28/24 03/04/24 Nicole Newell MD [address] [place] [address] PCP - General 03/05/24 05/17/24 Laura Mock MD, DMD [address] [address] [email or web address] PCP - General Internal Medicine 05/18/24 Artie Meehan MD [address] [place] [address] [place] [address] Internal Medicine 10/26/17 04/23/22 Meera Campos PA [facility] [place] [address] Historical LMR Provider 12/14/16 Amber Raygoza NP [address] [place] [address] 340 [place] [address] Historical LMR Provider 12/14/16 Elvis Rendon MD [address] [place] [address], [address] [place] [address] Historical LMR Provider 12/14/16 8 Modesta Rivera MD [address] [place] [address], [address] [place] [address] Historical LMR Provider 12/14/16 Carlin Newman MD [address] [place] [address], 2nd [place] [address] Historical LMR Provider 12/14/16 Patti Bello MD 15 [facility], 2nd [place] [address] Historical LMR Provider 12/14/16 07/08/17 Lucila Melendez MD 22 [facility], [address] [place] [address] Historical LMR Provider 12/14/16 07/08/17 Juan J Avitia DO [address] [place] [address] Orthopedics & Sports [facility], [place] [address] Historical LMR Provider 12/14/16 07/08/17 Tasha Greenwood MD [address] [place] [address], 2nd [place] [address] [email or web address] Historical LMR Provider 12/14/16 07/08/17 Mekhi Hernandez MD [address] [place], [place] [address] [address] [email or web address] Historical LMR Provider 12/14/16 07/08/17 Leora Fish PA-C [address] [place] [address] Orthopedics & Sports [facility], [place] [address] Historical LMR Provider 12/14/16 Angel Bueno MD 22 [facility], [address] [place] [address] Historical LMR Provider 12/14/16 Fredy Bruno MD [address] [place] [address] Historical LMR Provider 12/14/16 Sejal Dick MD 4 [facility] Orthopedics & Sports Medicine, [facility] [place] [address] [email or web address] Historical LMR Provider 12/14/1607/08 Cadence Rouse MD [address] [place] [address] Historical LMR Provider 12/14/16 Baljinder Hinson MD 61 [place] [address] Historical LMR Provider 12/14/16 Rina Swenson MD 61 [place] [address] Psychiatry 07/09/17 Laura Mock MD, DMD [address] [address] [email or web address] Attributed Provider 09/01/21 07/03/23 Laura Mock MD, DMD [address] [address] [email or web address] Insurance Assigned Provider 05/31/23 03/01/24 Jakob Bob MD [address] [place] [address] [place] [address] [email or web address] Cardiology 08/22/23 Jose Cruz MD 22 [facility], [address] [place] [address] Cardiology 08/22/23 Laura Mock MD, DMD [address] [place] [address] [address] [place] [address] [email or web address] Attributed Provider 09/01/21 07/03/23 [place] [facility] [phone]. Consulting Provider 08/22/23 CAROL[facility] GREWAL Connect 12/24/23 03/11/24 Cyril Morales [address] [place] [address] Nurse Practitioner 02/27/24 documented as of this encounter Additional Source Comments The information contained in this document represents components of the legal health record. It is not the complete legal health record.[facility]
--- OUTSIDE RECORDS SUMMARY | 2024-12-22 16:17 | XMS_ITS | Encounter Summary ---
Author Organization [facility] Address [facility] [facility] [address] [place] [address] Phone Care Team Providers Care Automotive Accessory Installer Name Role Phone Artie Meehan MD Primary Care Provider Artie Meehan MD Unavailable [phone] Rina Swenson MD Unavailable Laura Mock MD, DMD Primary Car e Provider Laura Mock MD, DMD Unavailable Laura Mock MD, DMD Unavailable Jakob Bob MD Unavailable [phone] Jose Cruz MD Unavailable Laura Mock MD, DMD Unavailable Pcp, Unknown Primary Care Provider UnavailLaura Ascencio MD, DMD Primary Car e Provider Pcp, Unknown Primary Care Provider UnavailNicole Arguello MD Primary Care Provide r Laura Mock MD, DMD Primary Car e Provider Encounter Details Date Type Department Care Team (Late st Contact Info) Description 11/29/2017 Transcribe Orders [facility] [address] [place] [address] Artie Meehan MD [address] [place] [address] [place] [address] Hypertension, essential (Primary Dx) Social History Tobacco [...] 01/05/2025 11:00 AM EST Pre-Admission Testing [address] 2nd [place] [address] Irineo Ruff MD [address] [place] [address] [email or web address] 01/10/2025 Procedure Pass [facility] Endoscopy Department [address] [place] [address] 01/10/2025 7:30 AM EST Hospital Encounter [facility] Endoscopy Department [address] [place] [address] Irineo Ruff MD [address] [place] [address] [email or web address] 01/10/2025 7:30 AM EST - 01/10/2025 8:15 AM EST Surgery [facility] Endoscopy Department [address] [place] [address] Irineo Ruff MD [address] [place] [address] [place] [address] [email or web address] 01/31/2025 1:00 PM EST Office Visit [facility] Cardiovascular Medicine 32 [facility], 5th Floor, [address] [place] [address] Karena Betancur MD 55 [facility] [address] [place] [address] [email or web address] Scheduled Procedures Name Priority Associated Diagnoses Date/Ti me COLONOSCOPY Abnormal colonoscopy 01/10/2025 7:30 AM EST documented as of this encounter Results * (ABNORMAL) Urinalysis (11/29/2017 10:52 AM EDT) Pathologist [facility] COLOR Yellow Yellow [facility] CLARITY Clear [facility] GLUCOSE Negative Negative [facility] BILI Negative Negative [facility] KETONES Negative Negative [facility] SPECIFIC GRAVITY 1.015 1.005 - 1.030 [facility] BLOOD Trace(A) Negative [facility] PH 6.0 5.0 - 8.0 [facility] Protein-UA Negative Negative [facility] NITRITE Negative Negative [facility] Leukocyte esterase, ur Negative Negative [facility] Urine (Urine) 11/29/2017 10: 52 AM EDT 11/29/2017 10:57 AM EDT us Artie Meehan MD URINE ORDERABLES Final Re sult [address] [address] * (ABNORMAL) CBC and differential (11/29/2017 10:52 AM EDT) WBC 3.98 3.40 - 11.20 K/uL [facility] RBC 5.32(H) 3.80 - 4.80 M/uL [facility] HGB 15.7(H) 12.0 - 15.0 g/dL [facility] HCT 48.4(H) 36.0 - 46.0 % [facility] PLT 223 130 - 400 K/uL [facility] MCV 91.0 79.0 - 98.0 fL [facility] MCH 29.5 27.0 - 34.8 pg [facility] MCHC 32.4 31.5 - 36.0 g/dL [facility] RDW 13.4 10.8 - 14.6 % [facility] MPV 9.1(L) 9.4 - 12.4 fl [facility] NRBC 0.00 /100 WBCs [facility] ABSOLUTE NRBC 0.00 K/uL [facility] DIFF METHOD Auto [facility] NEUTS 58.8 45.30 - 77.70 % [facility] LYMPHS 26.6 12.30 - 39.70 % [facility] MONOS 10.8 4.10 - 12.80 % [facility] EOS 2.5 0 - 7.2 % [facility] BASOS 1.0 0 - 2.80 % [facility] Granulocytes, immature (%) 0.3 0.0 - 0.9 % [facility] ABSOLUTE NEUTS 2.34 1.40 - 7.70 K/uL [facility] ABSOLUTE LYMPHS 1.06 0.60 - 3.20 K/uL [facility] ABSOLUTE MONOS 0.43 0.11 - 0.59 K/uL [facility] ABSOLUTE EOS 0.10 0.01 - 0.50 K/uL [facility] ABSOLUTE BASOS 0.04 0.00 - 0.08 K/uL [facility] Granulocytes, immature 0.01 0.00 - 0.05 K/uL [facility] Blood 11/29/2017 10:5 2 AM EDT 11/29/2017 10:57 AM EDT us Artie Meehan MD LAB BLOOD ORDERABLES Neela l Result [address] [address] * (ABNORMAL) Lipid panel (11/29/2017 10:52 AM EDT) HDL 82 mg/dL [facility] Comment: Interpretation: Risk Level Females Decreased >55mg/dL Average 50-55 mg/dL Increased <50 mg/dL CHOLESTEROL 253(H) 0 - 240 mg/dL [facility] TRIGLYCERIDES 83 30 - 160 mg/dL [facility] LDL 154(H) 50 - 129 mg/dL [facility] Comment: LDL levels in terms of risk for coronary heart disease: <100 mg/dL: Optimal 100-129 mg/dL: Near or above optimal 130-159 mg/dL: Borderline high 160-189 mg/dL: High >190 mg/dL: Very High CARDIAC RISK RATIO 3.1(L) 3.3 - 4.4 C [facility] Blood 11/29/2017 10:5 2 AM EDT 11/29/2017 10:57 AM EDT us Artie Meehan MD LAB BLOOD ORDERABLES Neela milian Result [facility] [address] [place] [address] * Comprehensive metabolic panel (11/29/2017 10:52 AM EDT) SODIUM 145 133 - 146 mmol/L [facility] POTASSIUM 4.7 3.3 - 5.1 mmol/L [facility] CHLORIDE 104 96 - 108 mmol/L [facility] CO2 27 21 - 35 mmol/L [facility] BUN 17 6 - 19 mg/dL [facility] CREATININE 0.80 0.5 - 1.5 mg/dL [facility] GLUCOSE 86 70 - 99 mg/dL [facility] ALBUMIN 4.1 3.9 - 4.8 g/dL [facility] TOTAL PROTEIN 6.9 6.5 - 8.0 g/dL [facility] CALCIUM 9.2 8.4 - 10.3 mg/dL [facility] ALKALINE PHOSPHATASE 73 39 - 117 U/L [facility] TOTAL BILIRUBIN 0.5 0.0 - 1.2 mg/dL [facility] AST 19 0 - 37 U/L [facility] ALT 12 0 - 40 U/L [facility] GLOBULIN 2.8 1 - 4.8 g/dL [facility] EGFR 70 >59 mL/min/1.7 3m2 [facility] Comment:If patient is black, multiply result by 1.159. Estimated glomerular filtration rate calculated using the CKD-EPI equation. ANION GAP 19 10 - 20 mmol/L [facility] Blood 11/29/2017 10:5 2 AM EDT 11/29/2017 10:57 AM EDT us Artie Meehan MD LAB BLOOD ORDERABLES Neela l Result [address] [address] documented in this encounter Visit Diagnoses Diagnosis Hypertension, essential- Primary Unspecified essential hypertension Abnormal colonoscopy documented in this encounter Additional Health Concerns Infection Onset Date Last Indicated Resolved Time CoV-Presumed 03/23/2022 03/23/2022 04/13/2022 1:23 AM EST CoV-Risk 11/12/2023 11/12/2023 11/12/2023 5:12 PM EDT COVID-19 11/12/2023 11/12/2023 12/03/2023 1:21 AM EDT documented as of this encounter Care Teams Automotive Accessory Installer Relationship Specialty Start Date End Date Artie Meehan MD [address] [place] [address] [place] [address] PCP - General Internal Medicine 10/26/17 06/03/21 Laura Mock MD, DMD [address] [address] [email or web address] PCP - General Internal Medicine 06/04/21 11/11/23 Pcp, Unknown PCP - General 11/12/23 11/16/23 Laura Mock MD, DMD [address] [address] [email or web address] PCP - General Internal Medicine 11/17/23 12/28/23 Pcp, Unknown PCP - General 02/28/24 03/04/24 [place] [id number] [address] PCP - General 03/05/24 05/17/24 Laura Mock MD, DMD [address] [address] [email or web address] PCP - General Internal Medicine 05/18/24 Artie Meehan MD [address] [place] [address] Dr Dior [facility] [place] [address] Internal Medicine 10/26/17 04/23/22 Rina Swenson MD [address] [place] [address] Dr [address] [place], [place] [address] [address] Psychiatry 07/09/17 Laura Mock MD, DMD [address] [address] [email or web address] Attributed Provider 09/01/21 07/03/23 Laura Mock MD, DMD [address] [address] [email or web address] Insurance Assigned Provider 05/31/23 03/01/24 Jakob Bob MD 75 [facility] [address] [place] [address] [email or web address] Cardiology 08/22/23 Jose Cruz MD [facility], [address] [place] [address] [email or web address] Cardiology 08/22/23 Laura Mock MD, DMD 1 [facility] [address] [place] [address] [email or web address] Attributed Provider 09/01/21 07/03/23 [facility] [phone]. Consulting Provider 08/22/23 [facility] Connect 12/24/23 03/11/24 Cyril Morales [address] [place] [address] Nurse Practitioner 02/27/24 documented as of this encounter Additional Source Comments The information contained in this document represents components of the legal health record. It is not the complete legal health record.[facility]
--- OUTSIDE RECORDS SUMMARY | 2024-12-22 16:17 | XMS_ITS | Clinical Summary ---
Author Organization 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[facility]; has chronic changes on CT No [...] given a the option to go to [facility] Coumad[facility] clinic or to go back to [facility] where she has been a patient [...] Type Department Care Team Description 10/13/2024 Telephone [facility] [address] [facility] 2nd [place] [address] Laura Mock MD, DMD Colonoscopy 10/07/2024 Refill [facility] [address] [facility] 3rd Floor, [address] [place] [address] Jose Cruz MD Medication Refill from Last 3 Months Immunizations Immunization Administration Dates Next Due INFLUENZA, SPLIT VIRUS, TRIV ALENT W/ PRESERVATIVE IM 12/21/2015,11/08/2011 Influenza High-Dose Quadriva lent Preservative Free IM 11/01/2020 Influenza High-Dose Trivalen t Preservative Free IM 11/17/2023(Deferred: Patient Refused),12/07/2018,12/03/2016, 016,12/09/2014,11/09/2013 Influenza Quadrivalent Adjuv anted Preservative Free IM 12/11/2022,11/01/2019 Influenza Trivalent Adjuvant ed Preservative free IM [...] 01/05/2025 11:00 AM EST Pre-Admission Testing [address] [address] Irineo Ruff MD [address] [place] [address] [email or web address] 01/10/2025 Procedure Pass [facility] Endoscopy Department [address] [place] [address] 01/10/2025 7:30 AM EST Hospital Encounter [facility] Endoscopy Department [address] [place] [address] Irineo Ruff MD [address] [place] [address] [email or web address] 01/10/2025 7:30 AM EST - 01/10/2025 8:15 AM EST Surgery [facility] Endoscopy Department [address] [place] [address] Irineo Ruff MD 75 [facility], [place] [address] [email or web address] [email or web address] 01/31/2025 1:00 PM EST Office Visit [facility] Cardiovascular Medicine [address] [facility], 5th Floor, [address] [place] [address] Karena Betancur MD 55 [facility] [address] [place] [address] [email or web address] Scheduled Procedures Name Priority Associated Diagnoses Date/Ti me COLONOSCOPY Abnormal colonoscopy 01/10/2025 7:30 AM EST Health Maintenance Due Date Last Done Comments Adult Td,Tdap Booster 1938 FIT TEST 10/29/1983 FOBT 10/29/1983 SIGMOIDOSCOPY 10/29/1983 VIRTUAL COLONOSCOPY 10/29/1983 RSV VACCINE (1 - 1-dose 75+ series) 2013 COLONOSCOPY 07/09/2019 07/08/2014, 06/24/2014 COLORECTAL CANCER SCREENING 05/16/2022 DEPRESSION SCREENING 10/10/2023 10/09/2022, 04/25/19 23 COVID-19 VACCINE ( season) 2024 02/20/2024, 11/08/2022, 11/09/2021, Additional history exists CREATININE LEVEL 12/03/2024 12/04/2023, , 11/15/2023, Additional history exists POTASSIUM LEVEL 12/03/2024 12/04/2023, 10/26, 11/15/2023, Additional history exists COLOGUARD 05/15/2025 05/15/2022 ZOSTER VACCINES Completed 12/01/2017, 08/25, 09/18/2017 PNEUMOCOCCAL VACCINES (50+ years) Completed 06/25/2018, 12/28/2014, 06/09/2013, Additional history exists OSTEOPOROSIS SCREENING INITIAL (ONE-TIME) Completed 01/24/2021, 06/24/2016 INFLUENZA VACCINE Completed 10/20/2024, , 12/11/2022, Additional history exists HEPATITIS A VACCINES Aged Out No long [...] this topic Medical Devices Implanted Type Area Order Builder Device Identifier Shelf Expiration Date Model / Serial / Lot St Drew Aortic Valve 23mm-04/19/2002 Implanted:04/19/19 03 (Quantity not on file) Description:Per OP report fr om 04/19/02: Pt has a 23mm [employer] Drew Aortic Valve replacement Per financial accounting manager: cond to 1.5T and 3T (see scanned [...] EDT) SODIUM 139 136 - 145 mmol/L [facility] POTASSIUM 4.8 3.4 - 5.1 mmol/L [facility] CHLORIDE 100 98 - 107 mmol/L [facility] CO2 28 22 - 31 mmol/L [facility] BUN 18 6 - 23 mg/dL [facility] CREATININE 0.71 0.50 - 1.20 mg/dL [facility] GLUCOSE 94 70 - 100 mg/dL [facility] CALCIUM 9.6 8.8 - 10.7 mg/dL [facility] EGFR 83 >59 mL/min/1.7 3m2 [facility] Comment:Estimated glomerular filtration rate calculated using the CKD-EPI refit equation. ANION GAP 11 7 - 17 mmol/L [facility] Blood 12/04/2023 1:58 PM EDT 12/04/2023 2:02 PM EDT us Jim Zacarias MD LAB BLOOD ORDERABLES Final Result Performing Organization Address City/State/[facility] Co de Phone Number [facility] [address] [place] [address] * BD DXA AXIAL (SPINE) WITH HIP [...] bone mineral density was calculated at 0.409 gm/nl3wvha a T- score of -4 falling within [...] Maintenance Insurance MEDICARE PART A & B Dibsie MEDEX SUPPLEMENT MEDICARE PART A & B Dibsie MEDEX SUPPLEMENT MEDICARE PART A & B Dibsie MEDEX SUPPLEMENT MEDICARE PART A & B Dibsie MEDEX SUPPLEMENT MEDICARE PART A & B Dibsie MEDEX SUPPLEMENT MEDICARE PART A & B Dibsie MEDEX SUPPLEMENT MEDICARE PART A & B Dibsie MEDEX SUPPLEMENT MEDICARE PART A & B Dibsie MEDEX SUPPLEMENT MEDICARE PART A & B Federal Finance [place] MEDEX SUPPLEMENT Advance Directives For more information, please contact: [phone] (9AM - 5PM [facility] [place] [facility], Friday-Friday) Documents on File Type Date Recorded Patient [employer] Consultant Expl anation Healthcare Proxy 11/18/2023 2:08 PM Healthcare Proxy 11/14/2023 7:46 AM Health care Proxy * Full Code (Latest Code Status on File) Date Activated Date Inactivated Comments 11/12/2023 10:33 PM Question Answer Comments Code Status Confirmed With: Other (specify below ) Code Discussion Comments: Presumed Care Teams Teacher Lip Reading Relationship Specialty Start Date End Date Laura Mock MD, DMD 1 [facility] [address] [place] [address] [email or web address] PCP - General Internal Medicine 05/18/24 Rina Swenson MD Psychiatry 07/09/17 Jakob Bob MD [address] [place] [address] [place] [address] [email or web address] Cardiology 08/22/23 Jose Cruz MD [address] [place] [address] [address] [place] [address] Cardiology 08/22/23 [facility] [phone]. Consulting Provider 08/22/23 Cyril Morales [address] [place] [phone] Nurse Practitioner 02/27/24 Additional Source Comments The information contained in this document represents components of the legal health record. It is not the complete legal health record.[facility]
--- OUTSIDE RECORDS SUMMARY | 2024-12-22 16:17 | XMS_ITS | Encounter Summary ---
Author Organization [facility] Address [facility] [employer] [address] [address] Phone Care Team Providers Care Rug Weaver Name Role Phone Artie Meehan MD Primary Care Provider Artie Meehan MD Unavailable [phone] Rina Swenson MD Unavailable Laura Mock MD, DMD Primary Car e Provider Laura Mock MD, DMD Unavailable Laura Mock MD, DMD Unavailable Jakob Bob MD Unavailable [phone] Jose Cruz MD Unavailable [phone] Laura Mock MD, DMD Unavailable Pcp, Unknown [...] sequela Artie Meehan MD Phone: tel: fax: [facility] [address] [place] [address] Phone: tel: Referral ID Status Reason Start Date Expiration Date Visits Re quested Visits Authorized [id number] Closed 11/27/2018 02/23/2019 99 99 Encounter Details Date Type Department Care Team (Latest Contact Info) Description 11/27/2018 Transcribe Orders [facility] [address] [place] [address] Artie Meehan MD [address] [place] [address] Left wrist fracture, sequela (Primary Dx) Social [...] Description 01/05/2025 11:00 AM EST [facility]-Admission Testing [facility] [address] [facility] 2nd [place] [address] Irineo Ruff MD [address] [place] [address] [place] [address] [email or web address] 01/10/2025 Procedure Pass [facility] Endoscopy Department [address] [place] [address] 01/10/2025 7:30 AM EST Hospital Encounter [facility] Endoscopy Department [address] [place] [address] Irineo Ruff MD 75 [facility] [place] [address] [email or web address] 01/10/2025 7:30 AM EST - 01/10/2025 8:15 AM EST Surgery [facility] Endoscopy Department [address] [place] [address] Irineo Ruff MD 75 [place] [address] [email or web address] [email or web address] 01/31/2025 1:00 PM EST Office Visit [facility] Cardiovascular Medicine 32 [facility], 5th Floor, [address] [place] [address] Karena Betancur MD [address] [address] [email or web address] Scheduled Procedures Name Priority Associated Diagnoses Date/Ti me COLONOSCOPY Abnormal colonoscopy 01/10/2025 7:30 AM EST documented as of this encounter Procedures Procedure Name Priority Date/Time Associated Diagnosis Comments AMB REFERRAL TO [facility] OCCUPATIONAL THERAPY Routine 12/08/2018 4:10 PM EDT Left wrist fracture, sequela documented in this encounter Results * Ambulatory referral to [facility] Occupational Therapy (12/08/2018 4:10 PM EDT) Artie Meehan MD AMB [facility] REFERRALS Final R esult documented in this encounter Visit Diagnoses Diagnosis Left wrist fracture, sequela- Primary Abnormal colonoscopy documented in this encounter Additional Health Concerns Infection Onset Date Last Indicated Resolved Time CoV-Presumed 03/23/2022 03/23/2022 04/13/2022 1:23 AM EST CoV-Risk 11/12/2023 11/12/2023 11/12/2023 5:12 PM EDT COVID-19 11/12/2023 11/12/2023 12/03/2023 1:21 AM EDT documented as of this encounter Care Teams Rug Weaver Relationship Specialty Start Date End Date Artie Meehan MD [address] [place] [address] [place] [address] PCP - General Internal Medicine 10/26/17 06/03/21 Laura Mock MD, DMD [address] [address] [email or web address] PCP - General Internal Medicine 06/04/21 11/11/23 Pcp, Unknown PCP - General 11/12/23 11/16/23 Laura Mock MD, DMD [address] [address] [email or web address] PCP - General Internal Medicine 11/17/23 12/28/23 Pcp, Unknown PCP - General 02/28/24 03/04/24 Nicole Newell MD [address] [place] [address] PCP - General 03/05/24 05/17/24 Laura Mock MD, DMD [address] [address] [email or web address] PCP - General Internal Medicine 05/18/24 Artie Meehan MD [address] [place] [address] [place] [address] Internal Medicine 10/26/17 04/23/22 Rina Swenson MD [address] [place] [address] [place] [address] Psychiatry 07/09/17 Laura Mock MD, DMD [address] [address] [email or web address] Attributed Provider 09/01/21 07/03/23 Laura Mock MD, DMD [address] [address] [email or web address] Insurance Assigned Provider 05/31/23 03/01/24 Jakob Bob MD [address] [place] [address] [email or web address] Cardiology 08/22/23 Jose Cruz MD [address] [place] [address] [email or web address] Cardiology 08/22/23 Laura Mock MD, DMD [address] [address] [email or web address] Attributed Provider 09/01/21 07/03/23 [facility] [phone]. Consulting Provider 08/22/23 [facility] Connect 12/24/23 03/11/24 Cyril Morales [address] [place] [address] Nurse Practitioner 02/27/24 documented as of this encounter Additional Source Comments The information contained in this document represents components of the legal health record. It is not the complete legal health record.[facility]
--- OUTSIDE RECORDS SUMMARY | 2024-12-22 16:17 | XMS_ITS | Encounter Summary ---
Author Organization [facility] Address [facility] [place] [employer] [facility] ([place], [place]) [address] [place] [address] Phone Care Team Providers Care Compounder Sterile Products Name Role Phone Artie Meehan MD Primary Care Provider Artie Meehan MD Unavailable [phone] Rina Swenson MD Unavailable Laura Mock MD, DMD Primary Car e Provider Laura Mock MD, DMD Unavailable Laura Mock MD, DMD Unavailable Jakob Bob MD Unavailable [phone] Jose Cruz MD Unavailable [phone] Laura Mock MD, DMD Unavailable Pcp, Unknown [...] Expiration Date Visits Re quested Visits Authorized [id number] Closed 05/15/2018 05/15/2019 1 1 Encounter Details Date Type Department Care Team (Late Contact Info) Description 05/15/2018 Ancillary Orders For Login Purposes Only 15 [facility] 2 [address] [place] [address] Artie Meehan MD [address] [place] [address] [place] [address] Pancreatic cyst Social History Tobacco Use Types [...] Description 01/05/2025 11:00 AM EST [facility] [address] [address] Irineo Ruff MD 75 [facility] [place] [address] [email or web address] 01/10/2025 Procedure Pass [facility] Endoscopy Department [address] [place] [address] 01/10/2025 7:30 AM EST Hospital Encounter [facility] Endoscopy Department [address] [place] [address] Irineo Ruff MD 75 [facility] [place] [address] [email or web address] 01/10/2025 7:30 AM EST - 01/10/2025 8:15 AM EST Surgery [facility] Endoscopy Department [address] [place] [address] Irineo Ruff MD 75 [facility] [place] [address] [email or web address] COLONOSCOPY 01/31/2025 1:00 PM EST Office Visit [facility] Cardiovascular Medicine [facility], 5th Floor, [address] [place] [address] Karena Betancur MD [address] [address] [email or web address] Scheduled Procedures Name Priority [...] renal cysts. Right hepatic lobe cyst. POS [id number] Edited by: Abbie Barnett on 05/22/2018 12:52 [...] renal cysts. Right hepatic lobe cyst. POS [id number] Edited by: Abbie Barnett on 05/22/2018 12:52 [...] documented as of this encounter Care Teams Compounder Sterile Products Relationship Specialty Start Date End Date Artie Meehan MD [address] [place] [address] [place] [address] PCP - General Internal Medicine 10/26/17 06/03/21 Laura Mock MD, DMD [address] [address] [email or web address] PCP - General Internal Medicine 06/04/21 11/11/23 Pcp, Unknown PCP - General 11/12/23 11/16/23 Laura Mock MD, DMD [address] [address] [email or web address] PCP - General Internal Medicine 11/17/23 12/28/23 Pcp, Unknown PCP - General 02/28/24 03/04/24 [place] [address] [address] PCP - General 03/05/24 05/17/24 Laura Mock MD, DMD [address] [address] [email or web address] PCP - General Internal Medicine 05/18/24 Artie Meehan MD [address] [place] [address] Dr Dior [facility] [place] [place] [address] Internal Medicine 10/26/17 04/23/22 Rina Swenson MD [address] [place] [address] Dr Dior [facility] [place] [address] Psychiatry 07/09/17 Laura Mock MD, DMD [address] [address] [email or web address] Partners Attributed Provider 09/01/21 07/03/23 Laura Mock MD, DMD [address] [address] [email or web address] Insurance Assigned Provider 05/31/23 03/01/24 Jakob Bob MD [address] [place] [address] [place] [address] [email or web address] Cardiology 08/22/23 Jose Cruz MD [address] [place] [address], [facility] 301 [place] [address] Cardiology 08/22/23 Laura Mock MD, DMD 1 [place] [address] [email or web address] Attributed Provider 09/01/21 07/03/23 [facility] [phone]. Consulting Provider 08/22/23 [facility] Connect 12/24/23 03/11/24 Cyril Morales [facility] [place] [address] Nurse Practitioner 02/27/24 documented as of this encounter Additional Source Comments The information contained in this document represents components of the legal health record. It is not the complete legal health record.[facility]
--- OUTSIDE RECORDS SUMMARY | 2024-12-22 16:17 | XMS_ITS | Encounter Summary ---
Author Organization [facility] Address [facility] [employer] [facility] ([place], [place]) [address] [place] [address] Phone Care Team Providers Care Manager Oracle Retail Name Role Phone Artie Meehan MD Primary Care Provider Artie Meehan MD Unavailable [phone] Rina Swenson MD Unavailable Laura Mock MD, DMD Primary Car e Provider Laura Mock MD, DMD Unavailable Laura Mock MD, DMD Unavailable Jakob Bob MD Unavailable [phone] Jose Cruz MD Unavailable Laura Mock MD, DMD Unavailable Pcp, Unknown Primary Care Provider UnavailLaura Ascencio MD, DMD Primary Car e Provider Pcp, Unknown Primary Care Provider UnavailNicole Arguello MD Primary Care Provide r Laura Mock MD, DMD Primary Car e Provider Encounter Details Date Type Department Care Team (Late st Contact Info) Description 10/26/2017 Procedure Pass [facility], Ct Scan - [address] [address] Social History Tobacco Use Types Packs/Day Years [...] 01/05/2025 11:00 AM EST Pre-Admission Testing [address] 2nd [place] [address] Irineo Ruff MD [address] [place] [address] [place] [address] [email or web address] 01/10/2025 Procedure Pass [facility] Endoscopy Department [address] [place] [address] 01/10/2025 7:30 AM EST Hospital Encounter [facility] Endoscopy Department [address] [place] [address] Irineo Ruff MD [address] [place] [address] [place] [address] [email or web address] 01/10/2025 7:30 AM EST - 01/10/2025 8:15 AM EST Surgery [facility] Endoscopy Department [address] [place] [address] Irineo Ruff MD [address] [place] [address] [email or web address] COLONOSCOPY 01/31/2025 1:00 PM EST Office Visit [facility] Cardiovascular Medicine [address] [place] [address], 5th Floor, [address] [place] [address] Karena Betancur MD [address] [place] [address] [email or web address] [...] as of this encounter Care Teams Manager [employer] Relationship Specialty Start Date End Date Artie Meehan MD [address] [place] [address] PCP - General Internal Medicine 10/26/17 06/03/21 Laura Mock MD, DMD [address] [address] [email or web address] PCP - General Internal Medicine 06/04/21 11/11/23 Pcp, Unknown PCP - General 11/12/23 11/16/23 Laura Mock MD, DMD [address] [address] [email or web address] PCP - General Internal Medicine 11/17/23 12/28/23 Pcp, Unknown PCP - General 02/28/24 03/04/24 [place] [address] [place] [address] PCP - General 03/05/24 05/17/24 Laura Mock MD, DMD [address] [address] [email or web address] PCP - General Internal Medicine 05/18/24 Artie Meehan MD [address] [place] [address] Dr D[address] [place] [address] Internal Medicine 10/26/17 04/23/22 Rina Swenson MD [address] [place] [address] Dr Dior [address] [place] [address] Psychiatry 07/09/17 Laura Mock MD, DMD [address] [address] [email or web address] Partners Attributed Provider 09/01/21 07/03/23 Laura Mock MD, DMD [address] [address] [email or web address] du Insurance Assigned Provider 05/31/23 03/01/24 Jakob Bob MD [address] [place], [place] [address] [place] [address] [email or web address] Cardiology 08/22/23 Jose Cruz MD [address] [place] [address], [address] [place] [address] Cardiology 08/22/23 Laura Mock MD, DMD 1 [facility] [address] [place] [address] [email or web address] Partners Attributed Provider 09/01/21 07/03/23 [facility] [phone]. Consulting Provider 08/22/23 [facility] Connect 12/24/23 03/11/24 Cyril Morales [address] [place] [address] Nurse Practitioner 02/27/24 documented as of this encounter Additional Source Comments The information contained in this document represents components of the legal health record. It is not the complete legal health record.[facility]
--- OUTSIDE RECORDS SUMMARY | 2024-12-22 16:17 | XMS_ITS | Encounter Summary ---
Author Organization [facility] Address [facility] [employer] [address] [address] Phone Care Team Providers Care Manager Requirements Name Role Phone Rina Swenson MD Unavailable [phone] Laura Mock MD, DMD Primary Car e [...] 01/05/2025 11:00 AM EST Pre-Admission Testing [address] [address] Irineo Ruff MD [address] [place] [address] [email or web address] 01/10/[address] [facility] Endoscopy Department [address] [place] [address] 01/10/2025 7:30 AM EST Hospital Encounter [facility] Endoscopy Department [address] [place] [address] Irineo Ruff MD [address] [place] [address] [email or web address]@[email or web address] 01/10/2025 7:30 AM EST - 01/10/2025 8:[address] [facility] Endoscopy Department [address] [place] [address] Irineo uRff MD [address] [place] [address] [email or web address]@[email or web address] COLONOSCOPY 01/31/2025 1:00 PM EST Office Visit [facility] Cardiovascular Medicine 32 [facility], 5th Floor, [address] [place] [address] Karena Betancur MD 55 [facility] [address] [place] [address] [email or web address] Scheduled Procedures Name Priority Associated Diagnoses [...] as of this encounter Care Teams Manager Requirements Relationship Specialty Start Date End Date Laura Mock MD, DMD [address] [address] [email or web address] PCP - General Internal Medicine 06/04/21 11/11/23 Pcp, Unknown PCP - General 11/12/23 11/16/23 Laura Mock MD, DMD [address] [address] [email or web address] PCP - General Internal Medicine 11/17/23 12/28/23 Pcp, Unknown PCP - General 02/28/24 03/04/24 Nicole Newell MD [address] [place] [address] [id number] PCP - General 03/05/24 05/17/24 Laura Mock MD, DMD [address] [address] [email or web address] du PCP - General Internal Medicine 05/18/24 Rina Swenson MD Psychiatry 07/09/17 Laura Mock MD, DMD [address] [address] [email or web address]. du Partners Attributed Provider 09/01/21 07/03/23 Laura Mock MD, DMD [address] [address] [email or web address] du Insurance Assigned Provider 05/31/23 03/01/24 Jakob Bob MD 75 [facility] [place] [address] [email or web address] Cardiology 08/22/23 Jose Cruz MD [address] [place] [address] Cardiology 08/22/23 Laura Mock MD, DMD [address] [address] [email or web address] Partners Attributed Provider 09/01/21 07/03/23 [facility] [phone]. Consulting Provider 08/22/23 [facility] Connect 12/24/23 03/11/24 Cyril Morales [address] [place] [address] Nurse Practitioner 02/27/24 documented as of this encounter Additional Source Comments The information contained in this document represents components of the legal health record. It is not the complete legal health record.[facility]
--- OUTSIDE RECORDS SUMMARY | 2024-12-22 16:17 | XMS_ITS | Encounter Summary ---
Author Organization [facility] Address [address] [place] [address] [place] [address] Phone Care Team Providers Care Slip Feeder Name Role Phone Rina Swenson MD [...] st Contact Info) Description 03/23/2023 Anti-coag visit [facility] Anticoagulation Clinic [address] [place] [address] Puriv Lawler, PharmD [address] [place] [address] [email or web address] Social History Tobacco Use Types Packs/Day Years [...] EST Pre-Admission Testing [facility] 45 [facility] 2nd [place] [address] rIineo Ruff MD [address] [place] [address] [place] [address] [email or web address]@[email or web address] 01/10/2025 Procedure Pass [facility] Endoscopy Department [address] [place] [address] 01/10/2025 7:30 AM EST Hospital Encounter [facility] Endoscopy Department [address] [place] [address] Irineo Ruff MD [address] [place] [address] [email or web address]@[facility] 01/10/2025 7:30 AM EST - 01/10/2025 8:15 AM EST Surgery [facility] Endoscopy Department [address] [place] [address] Irineo Ruff MD 75 [facility] [place] [address] [email or web address] COLONOSCOPY 01/31/2025 1:00 PM EST Office Visit [facility] Cardiovascular Medicine [address] [facility], 5th Floor, [address] [place] [address] Karena Betancur MD 55 [facility] 5B [place] [address] FRANK@[email or web address] Scheduled Procedures [...] documented as of this encounter Care Teams Slip Feeder Relationship Specialty Start Date End Date Laura Mock MD, DMD 1 [facility] [address] [place] [address] [email or web address] PCP - General Internal Medicine 06/04/21 11/11/23 Pcp, Unknown PCP - General 11/12/23 11/16/23 Laura Mock MD, DMD 1 [facility] [address] [place] [address] [email or web address] du PCP - General Internal Medicine 11/17/23 12/28/23 Pcp, Unknown PCP - General 02/28/24 03/04/24 [place] [address] [place] [address] PCP - General 03/05/24 05/17/24 Laura Mock MD, DMD [address] [address] [email or web address] PCP - General Internal Medicine 05/18/24 Rina Swenson MD Psychiatry 07/09/17 Laura Mock MD, DMD [address] [address] [email or web address] Partners Attributed Provider 09/01/21 07/03/23 Laura Mock MD, DMD [address] [address] [email or web address] du Insurance Assigned Provider 05/31/23 03/01/24 Jakob Bob MD [address] [place] [address] [place] [address] [email or web address] Cardiology 08/22/23 Jose Cruz MD [address] [place] [address], [facility] [address] [place] [address] Cardiology 08/22/23 Laura Mock MD, DMD 1 [facility] [address] [place] [address] [email or web address] Partners Attributed Provider 09/01/21 07/03/23 [facility] [phone]. Consulting Provider 08/22/23 [facility] Connect 12/24/23 03/11/24 Cyril Morales [facility] [place] [address] Nurse Practitioner 02/27/24 documented as of this encounter Additional Source Comments The information contained in this document represents components of the legal health record. It is not the complete legal health record.[facility]
--- OUTSIDE RECORDS SUMMARY | 2024-12-22 16:18 | XMS_ITS | Encounter Summary ---
Author Organization [facility] Address Critical access hospital [employer] [facility] [address] [place] [address] Phone Care Team Providers Care Design Engineer Products Name Role Phone Artie Meehan MD Primary Care Provider Artie Meehan MD Unavailable [phone] Rina Swenson MD Unavailable [phone] Laura Mock MD, DMD Primary Car e Provider Laura Mock MD, DMD Unavailable Laura Mock MD, DMD Unavailable Jakob Bob MD Unavailable Jose Cruz MD Unavailable [phone] Laura Mock MD, DMD Unavailable Pcp, Unknown Primary Care Provider UnavailLaura Ascencio MD, DMD Primary Car e Provider Pcp, Unknown Primary Care Provider UnavailNicole Arguello MD Primary Care Provide r Laura Mock MD, DMD Primary Car e Provider Encounter Details Date Type Department Care Team (Late st Contact Info) Description 12/19/2017 Procedure Pass [facility] 75 [place] [address] Social History Tobacco Use Types Packs/Day Years [...] 01/05/2025 11:00 AM EST Pre-Admission Testing [address] [address] Irineo Ruff MD [address] [place] [address] [email or web address] 01/10/2025 Procedure Pass [facility] Endoscopy Department [address] [place] [address] 01/10/2025 7:30 AM EST Hospital Encounter [facility] Endoscopy Department [address] [place] [address] Irineo Ruff MD [address] [place] [address] [email or web address] 01/10/2025 7:30 AM EST - 01/10/2025 8:15 AM EST Surgery [facility] Endoscopy Department [address] [place] [address] Irineo Ruff MD 75 [facility] [place] [address] [email or web address] [email or web address] 01/31/2025 1:00 PM EST Office Visit [facility] Cardiovascular Medicine 32 [facility], 5th Floor, [address] [place] [address] Karena Betancur MD 55 [facility] [address] [place] [address] FRANK@[email or web address] Scheduled Procedures Name Priority [...] documented as of this encounter Care Teams Design Engineer Products Relationship Specialty Start Date End Date Artie Meehan MD [address] [place] [address] [place] [address] PCP - General Internal Medicine 10/26/17 06/03/21 Laura Mock MD, DMD 1 [facility] [address] [place] [address] [email or web address] PCP - General Internal Medicine 06/04/21 11/11/23 Pcp, Unknown PCP - General 11/12/23 11/16/23 Laura Mock MD, DMD 1 [facility] [address] [place] [address] [email or web address] PCP - General Internal Medicine 11/17/23 12/28/23 Pcp, Unknown PCP - General 02/28/24 03/04/24 [place] [address] [address] PCP - General 03/05/24 05/17/24 Laura Mock MD, DMD 1 [facility] [address] [place] [address] [email or web address] PCP - General Internal Medicine 05/18/24 Artie Meehan MD [address] [place] [address] Dr [address] [place] [address] Internal Medicine 10/26/17 04/23/22 Rina Swenson MD [address] [place] [address] Dr Dior [address] [place] [address] Psychiatry 07/09/17 Laura Mock MD, DMD [address] [address] [email or web address] [employer] Attributed Provider 09/01/21 07/03/23 Laura Mock MD, DMD [address] [address] [email or web address] Insurance Assigned Provider 05/31/23 03/01/24 Jakob Bob MD [address] [place] [address] [place] [address] [email or web address] Cardiology 08/22/23 Jose Cruz MD 22 [facility], [address] [place] [address] [email or web address] Cardiology 08/22/23 Laura Mock MD, DMD [address] [place] [address] [address] [place] [address] [email or web address] Attributed Provider 09/01/21 07/03/23 [facility] [phone]. Consulting Provider 08/22/23 CAROLANN GREWAL Connect 12/24/23 03/11/24 Cyril Morales [facility] [place] [address] Nurse Practitioner 02/27/24 documented as of this encounter Additional Source Comments The information contained in this document represents components of the legal health record. It is not the complete legal health record.[facility]
--- OUTSIDE RECORDS SUMMARY | 2024-12-22 16:18 | XMS_ITS | Encounter Summary ---
Author Organization [facility] Address [facility] [employer] [facility] [address] [place] [address] Phone Care Team Providers Care Septic Tank Setter Name Role Phone Artie Meehan MD Primary Care Provider Artie Meehan MD Unavailable [phone] Rina Swenson MD Unavailable Laura Mock MD, [...] Procedure Pass [facility] [address] [place] [address] Social History Tobacco Use Types Packs/Day Years [...] Description 01/05/2025 11:00 AM EST Pre-Admission Testing [address] [address] Irineo Ruff MD [address] [place] [address] [email or web address] 01/10/2025 Procedure Pass [facility] Endoscopy Department [address] [place] [address] 01/10/2025 7:30 AM EST Hospital Encounter [facility] Endoscopy Department [address] [place] [address] Irineo Ruff MD [address] [place] [address] [email or web address] 01/10/2025 7:30 AM EST - 01/10/2025 8:15 AM EST Surgery [facility] Endoscopy Department [address] [place] [address] Irineo Ruff MD 75 [facility] [place] [address] [email or web address] COLONOSCOPY 01/31/2025 1:00 PM EST Office Visit [facility] Cardiovascular Medicine 32 [facility], 5th Floor, [address] [place] [address] Karena Betancur MD 55 [facility] [address] [place] [address] [email or web address] Scheduled Procedures [...] documented as of this encounter Care Teams Septic Tank Setter Relationship Specialty Start Date End Date Artie Meehan MD [address] [place] [address] [place] [address] PCP - General Internal Medicine 10/26/17 06/03/21 Laura Mock MD, DMD 1 [facility] 225 [place] [address] [email or web address] so PCP - General Internal Medicine 06/04/21 11/11/23 Pcp, Unknown PCP - General 11/12/23 11/16/23 Laura Mock MD, DMD 1 [facility] [address] [place] [address] [email or web address] PCP - General Internal Medicine 11/17/23 12/28/23 Pcp, Unknown PCP - General 02/28/24 03/04/24 [place] [address] [address] PCP - General 03/05/24 05/17/24 Laura Mock MD, DMD [address] [address] [email or web address] PCP - General Internal Medicine 05/18/24 Artie Meehan MD [address] [place] [address] [address] [place] [address] Internal Medicine 10/26/17 04/23/22 Rina Swenson MD [address] [place] [address] [address] Psychiatry 07/09/17 Laura Mock MD, DMD [address] [address] [email or web address] du Partners Attributed Provider 09/01/21 07/03/23 Laura Mock MD, DMD [address] [address] [email or web address] du Insurance Assigned Provider 05/31/23 03/01/24 Jakob Bob MD [address] [place] [address] [place] [address] [email or web address] Cardiology 08/22/23 Jose Cruz MD 22 [facility] [address] [place] [address] Cardiology 08/22/23 Laura Mcok MD, DMD [address] [place] [address] [address] [place] [address] [email or web address] Partners Attributed Provider 09/01/21 07/03/23 [facility] [phone]. Consulting Provider 08/22/23 [facility] Connect 12/24/23 03/11/24 Cyril Morales [address] [place] [address] Nurse Practitioner 02/27/24 documented as of this encounter Additional Source Comments The information contained in this document represents components of the legal health record. It is not the complete legal health record.[facility]
--- OUTSIDE RECORDS SUMMARY | 2024-12-22 16:18 | XMS_ITS | Encounter Summary ---
Author Organization [facility] Address [facility] [address] [place] [address] Phone Care Team Providers Care Human Resources Project Coordinator Name Role Phone Artie Meehan MD Primary Care Provider Artie Meehan MD Unavailable [phone] Rina Swenson MD Unavailable [phone] Larua Mock MD, DMD Primary Car e Provider Laura Mock MD, DMD Unavailable Laura Mock MD, DMD Unavailable Jakob Bob MD Unavailable [phone] Jose Cruz MD Unavailable Laura Mock MD, [...] Moyer MD Phone: tel: fax: mailto:[email or web address] Referral ID Status Reason Start Date Expiration Date Visits Re quested Visits Authorized [id number] Closed 12/24/2017 12/24/2018 1 1 Encounter Details Date Type Department Care Team ([facility] Contact Info) Description 12/24/2017 Ancillary Orders [facility] Urology [address] [place], [place] [address]23 [place] [address] Daryn Moyer MD [address] [place] [address] [address] [place] [address] [email or web address] Social History Tobacco Use Types [...] Department Care Team ([facility] Contact Info) Description 01/05/2025 11:00 AM EST Pre-Admission Testing [facility] [address] [facility] 2nd [place] [address] Irineo Ruff MD [address] [place] [address] [place] [address] [email or web address] 01/10/2025 Procedure Pass [facility] Endoscopy Department [address] [place] [address] 01/10/2025 7:30 AM EST Hospital Encounter [facility] Endoscopy Department [address] [place] [address] Irineo Ruff MD 75 [place] [address] [email or web address] 01/10/2025 7:30 AM EST - 01/10/2025 8:15 AM EST Surgery [facility] Endoscopy Department [address] [place] [address] Irineo Ruff MD 75 [place] [address] [email or web address] [email or web address] 01/31/2025 1:00 PM EST Office Visit [facility] Cardiovascular Medicine 32 [facility], 5th Floor, [address] [place] [address] Karena Betancur MD [address] [address] [email or web address] Scheduled Procedures Name [...] of this encounter Care Teams Human Resources Project Coordinator Relationship Specialty Start Date End Date Artie Meehan MD [address] [place] [address] [place] [address] PCP - General Internal Medicine 10/26/17 06/03/21 Laura Mock MD, DMD 1 [facility] [address] [place] [address] [email or web address] du PCP - General Internal Medicine 06/04/21 11/11/23 Pcp, Unknown PCP - General 11/12/23 11/16/23 Laura Mock MD, DMD 1 [facility] 225 [place] [address] [email or web address] PCP - General Internal Medicine 11/17/23 12/28/23 Pcp, Unknown PCP - General 02/28/24 03/04/24 Nicole Newell MD [address] [place] [address] PCP - General 03/05/24 05/17/24 Laura Mock MD, DMD [address] [address] [email or web address] PCP - General Internal Medicine 05/18/24 Artie Meehan MD [address] [place] [address] [place] [address] Internal Medicine 10/26/17 04/23/22 Rina Swenson MD [address] [place] [address] [place] [address] Psychiatry 07/09/17 Laura Mock MD, DMD [address] [address] [email or web address] du Partners Attributed Provider 09/01/21 07/03/23 Laura Mock MD, DMD [address] [address] [email or web address]. du Insurance Assigned Provider 05/31/23 03/01/24 Jakob Bob MD [address] [place] [address] [email or web address] Cardiology 08/22/23 Jose Cruz MD [address] [place] [address] [email or web address] Cardiology 08/22/23 Laura Mock MD, DMD [address] [address] [email or web address]. du Partners Attributed Provider 09/01/21 07/03/23 [facility] [phone]. Consulting Provider 08/22/23 [facility] Connect 12/24/23 03/11/24 Cyril Morales [address] [place] [address] Nurse Practitioner 02/27/24 documented as of this encounter Additional Source Comments The information contained in this document represents components of the legal health record. It is not the complete legal health record.[facility]
--- OUTSIDE RECORDS SUMMARY | 2024-12-22 16:18 | XMS_ITS | Encounter Summary ---
Author Organization [facility] Address [facility] [address] [place] [address] Phone Care Team Providers Care Paper Bags Sewing Machine Operator Name Role Phone Artie Meehan MD Primary Care Provider Artie Meehan MD Unavailable [phone] Rina Swenson MD Unavailable Laura Mock MD, DMD Primary Car e Provider Laura Mock MD, DMD Unavailable Larua Mock MD, DMD Unavailable Jakob Bob MD Unavailable [phone] Jose Cruz MD Unavailable Laura Mock MD, DMD Unavailable Pcp, Unknown Primary Care Provider UnavailLaura Ascencio MD, DMD Primary Car e Provider Pcp, Unknown Primary Care Provider UnavailNicole Arguello MD Primary Care Provide r Laura Mock MD, DMD Primary Car e Provider Encounter Details Date Type Department Care Team (Late st Contact Info) Description 01/06/2018 Procedure Pass [facility] 75 [place] [address] Social History Tobacco Use Types Packs/Day Years [...] 01/05/2025 11:00 AM EST Pre-Admission Testing [address] 2nd [place] [address] Irineo Ruff MD [address] [place] [address] [email or web address] 01/10/2025 Procedure Pass [facility] Endoscopy Department [address] [place] [address] 01/10/2025 7:30 AM EST Hospital Encounter [facility] Endoscopy Department [address] [place] [address] Irineo Ruff MD [address] [place] [address] [email or web address] 01/10/2025 7:30 AM EST - 01/10/2025 8:15 AM EST Surgery [facility] Endoscopy Department [address] [place] [address] Irineo Ruff MD [address] [place] [address] [email or web address] COLONOSCOPY 01/31/2025 1:00 PM EST Office [facility] Cardiovascular Medicine [address] [facility], 5th Floor, [address] [place] [address] Karena Betancur MD [address] [place] [address] [email or web address] Scheduled Procedures Name Priority Associated Diagnoses [...] documented as of this encounter Care Teams Paper Bags Sewing Machine Operator Relationship Specialty Start Date End Date Artie Meehan MD [address] [place] [address] PCP - General Internal Medicine 10/26/17 06/03/21 Laura Mock MD, DMD [address] [address] [email or web address] PCP - General Internal Medicine 06/04/21 11/11/23 Pcp, Unknown PCP - General 11/12/23 11/16/23 Laura Mock MD, DMD [address] [address] [email or web address] PCP - General Internal Medicine 11/17/23 12/28/23 Pcp, Unknown PCP - General 02/28/24 03/04/24 [place] [address] [place] [address] PCP - General 03/05/24 05/17/24 Laura Mock MD, DMD [address] [address] [email or web address] du PCP - General Internal Medicine 05/18/24 Artie Meehan MD [address] [place] [address] Dr [address] [place] [address] Internal Medicine 10/26/17 04/23/22 Rina Swenson MD [address] [place] [address] Dr [address] [place] [address] Psychiatry 07/09/17 Laura Mock MD, DMD [address] [address] [email or web address] du Partners Attributed Provider 09/01/21 07/03/23 Laura Mock MD, DMD [address] [address] [email or web address] du Insurance Assigned Provider 05/31/23 03/01/24 Jakob Bob MD [address] [place] [address] [address] [place] [address] [email or web address] Cardiology 08/22/23 Jose Cruz MD [address] [place] [address], [address] [place] [address] Cardiology 08/22/23 Laura Mock MD, DMD 1 [facility] [address] [place] [address] [email or web address] Partners Attributed Provider 09/01/21 07/03/23 [facility] [phone]. Consulting Provider 08/22/23 [facility] Connect 12/24/23 03/11/24 Cyril Morales [facility] [place] [address] Nurse Practitioner 02/27/24 documented as of this encounter Additional Source Comments The information contained in this document represents components of the legal health record. It is not the complete legal health record.[facility]
--- OUTSIDE RECORDS SUMMARY | 2024-12-22 16:18 | XMS_ITS | Encounter Summary ---
Author Organization [facility] Address [facility] [employer] [facility] [address] [place] [address] Phone Care Team Providers Care Core Machine Operator Name Role Phone Artie Meehan MD Primary Care Provider Artie Meehan MD Unavailable [phone] Rina Swenson MD Unavailable Laura Mock MD, DMD Primary Car e Provider Laura Mock MD, DMD Unavailable Laura Mock MD, DMD Unavailable Jakob Bob MD Unavailable Jose Cruz MD Unavailable [phone] Laura Mock MD, DMD Unavailable Pcp, Unknown [...] Interpretation) Daryn Moyer MD Phone: tel: fax: mailto:[email or web address] Referral ID Status Reason Start Date Expiration Date Visits Re quested Visits Authorized [id number] Closed 01/06/2018 01/06/2019 1 1 Encounter Details Date Type Department Care Team (Late st Contact Info) Description 01/06/2018 Transcribe Orders [facility] [address] [place] [address] Shira Mann [address] [place] [address] [email or web address] Social History Tobacco Use Types Packs/Day [...] 01/05/2025 11:00 AM EST [facility] 2nd [place] [address] Irineo Ruff MD 75 [facility] [place] [address] [email or web address] 01/10/2025 Procedure Pass [facility] Endoscopy Department [address] [place] [address] 01/10/2025 7:30 AM EST Hospital Encounter [facility] Endoscopy Department [address] [place] [address] Irineo Ruff MD 75 [facility] [place] [address] [email or web address] 01/10/2025 7:30 AM EST - 01/10/2025 8:15 AM EST Surgery [facility] Endoscopy Department [address] [place] [address] Irineo Ruff MD [address] [place] [address] [place] [address] [email or web address]@[facility] COLONOSCOPY 01/31/2025 1:00 PM EST Office Visit [facility] Cardiovascular Medicine 32 [facility], 5th Floor, [address] [place] [address] Karena Betancur MD [address] [address] [email or web address] Scheduled Procedures Name Priority Associated Diagnoses Date/Ti me COLONOSCOPY Abnormal colonoscopy 01/10/2025 7:30 AM EST documented as of this encounter Results * MRI Lower Extremity Outside (No Interpretation) (01/06/2018 11:46 AM EST) Narrative ALYSHA_[facility] - 01/06/2018 11:46 AM EST This study [...] documented as of this encounter Care Teams Core Machine Operator Relationship Specialty Start Date End Date Artie Meehan MD [address] [place] [address] [place] [address] PCP - General Internal Medicine 10/26/17 06/03/21 Laura Mock MD, DMD 1 [facility] [address] [place] [address] [email or web address] du PCP - General Internal Medicine 06/04/21 11/11/23 Pcp, Unknown PCP - General 11/12/23 11/16/23 Laura Mock MD, DMD [address] [address] [email or web address] PCP - General Internal Medicine 11/17/23 12/28/23 Pcp, Unknown PCP - General 02/28/24 03/04/24 Nicole Newell MD [address] [place] [address] PCP - General 03/05/24 05/17/24 Laura Mock MD, DMD [address] [address] [email or web address] du PCP - General Internal Medicine 05/18/24 Artie Meehan MD [address] [place] [address] [place] [address] Internal Medicine 10/26/17 04/23/22 Rina Swenson MD [address] [place] [address] [place] [address] Psychiatry 5/16/18 Laura Mock MD, DMD [address] [address] [email or web address] Partners Attributed Provider 09/01/21 07/03/23 Laura Mock MD, DMD [address] [address] [email or web address] du Insurance Assigned Provider 05/31/23 03/01/24 Jakob Bob MD [address] [place] [address] [email or web address] Cardiology 08/22/23 Jose Cruz MD [address] [place] [address] [email or web address] Cardiology 08/22/23 Laura Mock MD, DMD [address] [address] [email or web address] Partners Attributed Provider 09/01/21 07/03/23 [facility] [phone]. Consulting Provider 08/22/23 [facility] Connect 12/24/23 03/11/24 Cyril Morales [address] [place] [address] Nurse Practitioner 02/27/24 documented as of this encounter Additional Source Comments The information contained in this document represents components of the legal health record. It is not the complete legal health record.[facility]
== END 2024-12-22 13:21 | disposition home or self-care (01) ==
LOC: HO.ACS 12:52
PROVIDERS: PCP Internal Medicine; Visit Provider Internal Medicine Medical Oncology
DX: Z79.01 Long term (current) use of anticoagulants (principal)

== ENCOUNTER → 2024-12-22 12:52 | Outpatient (BNVA) | payer MEDICARE, SELFPAY | PROVIDERS: PCP Internal Medicine; Visit Provider Internal Medicine Medical Oncology | DX: Z95.2 Presence of prosthetic heart valve (principal); Z51.81 Encounter for therapeutic drug level monitoring; Z79.01 Long term (current) use of anticoagulants | CPT/HCPCS: 85610; 99211 ==

== ENCOUNTER 2024-12-28 13:29 | Outpatient (AMB) | payer MEDICARE, SELFPAY ==
[2024-12-28 13:37] LABS: Prothrombin Time Whole Bld POC 34.0 sec (11.1-13.5); ~PT, ~INR - Anti Coag Clinic 2.8 (0.9-1.1)
--- NOTE | 2024-12-28 13:52 | MHC.OFFVISCO ---
Intake Intake Visit Reasons: Anticoagulation Allergies latex Allergy (Intermediate, Verified 12/28/24 13:30) Rash Medication List - Last Reconciled 12/28/24 by Marjorie Suazo RN acetaminophen 500 mg PO Q6H PRN amoxicillin 2,000 mg (4 x 500 mg) PO ONCE 1 day ascorbate calcium (vitamin C) 1 g PO DAILY bupropion HCl XL (Wellbutrin XL) 300 mg PO QAM clonazepam 0.5 mg PO BID PRN cyanocobalamin (vitamin B-12) PO folic acid 0.8 mg PO DAILY lisinopril 10 mg PO BID [multivitamin PO] warfarin See Protocol 4 mg on Mondays, Wednesdays and Fridays then 3 mg on Tuesdays, , Saturdays and Sundays 30 days Nursing Note INR: 2.8 in therapeutic range Medications and supplements reviewed *took amoxicllin today for dental discomfort- may need dental work in 2 weeks or so - not sure what treatment will be yet *She started vit D3 K2 to draw calcium into her bones instead of her blood vessels - it can lower her INR *She was concerned of her low INR so she increased her dose to 4mg daily *She has increased stress in caring for her daughter * She will be taking amoxicillin gain for her dental appt which may raise the INR Denies any signs and symptoms of bleeding or bruising or clotting. Bleeding, bruising, clotting discussed Nutritional guidance given - keep eating usual diet and make sure to eat greens today Dose: keep 4mg daily for now F/U INR: 1 week - to make sure INR remains therapeutic prior any dental work and due to supplement she is taking Patient verbalizes understanding of instructions given Anti-Coag Initial Assessment Social Hx Patient Tobacco Use Status: Never used Tobacco alcohol intake: never Alcohol intake frequency: does not drink Coding Level of Care Code Est Patient Level 1 Diagnoses Current use of anticoagulant therapy Z79.01 Results AMB INR Fingerstick AMB INR Fingerstick 2.8 Last Edit by Marjorie Suazo RN on 12/28/24 13:39 MANUAL ENTRY Assessment & Plan Assessment & Plan (1) Current use of anticoagulant therapy: 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
--- OUTSIDE RECORDS SUMMARY | 2024-12-28 16:30 | XMS_ITS | Encounter Summary ---
Author Organization [facility] Address [facility] [employer] [address] [address] Phone Care Team Providers Care Sonoscope Operator Name Role Phone Artie Meehan MD [...] [facility] 2nd [place] [address] Irineo Ruff MD [address] [place] [address] [email or web address] 01/10/[address] [facility] Endoscopy Department [address] [place] [address] 01/10/2025 7:30 AM EST Hospital Encounter [facility] Endoscopy Department [address] [place] [address] Irineo Ruff MD [address] [place] [address] [email or web address]@[email or web address] 01/10/2025 7:30 AM EST - 01/10/2025 8:[address] [facility] Endoscopy Department [address] [place] [address] Irineo Ruff MD [address] [place] [address] WALI@[email or web address] COLONOSCOPY 01/31/2025 1:00 PM EST Office Visit [facility] Cardiovascular Medicine 32 [facility], 5th Floor, [address] [place] [address] Karena Betancur MD [address] [address] FRANK@[email or web address] Scheduled Procedures Name Priority Associated [...] documented as of this encounter Care Teams Sonoscope Operator Relationship Specialty Start Date End Date Laura Mock MD, DMD [address] [address] [place] [address] [email or web address] PCP - General Internal Medicine 06/04/21 11/11/23 Pcp, Unknown PCP - General 11/12/23 11/16/23 Laura Mock MD, DMD [address] [address] [place] [address] [email or web address] du PCP - General Internal Medicine 11/17/23 12/28/23 Pcp, Unknown PCP - General 02/28/24 03/04/24 Nicole Newell MD [address] [place] [address] PCP - General 03/05/24 05/17/24 Laura Mock MD, DMD [address] [address] [place] [address] [email or web address] du PCP - General Internal Medicine 05/18/24 Artie Meehan MD [address] [place] [address] [place] [address] Internal Medicine 10/26/17 04/23/22 Rina Swenson MD [address] [place] [address] [place] [address] Psychiatry 07/09/17 Laura Mock MD, DMD [address] [address] [email or web address]. du Partners Attributed Provider 09/01/21 07/03/23 Laura Mock MD, DMD [address] [address] [email or web address] du Insurance Assigned Provider 05/31/23 03/01/24 Jakob Bob MD [address] [place] [address] [email or web address] Cardiology 08/22/23 Jose Cruz MD [address] [place] [address], [facility] [address] [place] [address] Cardiology 08/22/23 Laura Mock MD, DMD [address] [address] [email or web address] du Partners Attributed Provider 09/01/21 07/03/23 [facility] [phone]. Consulting Provider 08/22/23 [facility] Connect 12/24/23 03/11/24 Cyril Morales [address] [place] [address] Nurse Practitioner 02/27/24 documented as of this encounter Additional Source Comments The information contained in this document represents components of the legal health record. It is not the complete legal health record.[facility]
--- OUTSIDE RECORDS SUMMARY | 2024-12-28 16:30 | XMS_ITS | Encounter Summary ---
Author Organization [facility] Address [facility] [address] [place] [address] Phone Care Team Providers Care Fisher Hoop Net Name Role Phone Artie Meehan MD Primary Care Provider Artie Meehan MD Unavailable [phone] Rina Swenson MD Unavailable Laura Mock MD, DMD Primary Car e Provider Laura Mock MD, DMD Unavailable Laura Mock MD, DMD Unavailable Jakob Bob MD Unavailable [phone] Jose Cruz MD Unavailable [phone] Laura Mock MD, DMD Unavailable Pcp, Unknown [...] st Contact Info) Description 12/09/[address] [facility] Urology [address] [facility] ASB2-3 [place] [address] Maureen De Los [email or web address] Question regarding Symtoms (Former pt. of [...] 01/05/2025 11:00 AM EST [facility]mission [facility] [address] [facility] 2nd [place] [address] Irineo Ruff MD [address] [place] [address] [email or web address] 01/10/[address] [facility] Endoscopy Department [address] [place] [address] 01/10/2025 7:30 AM EST Hospital Encounter [facility] Endoscopy Department [address] [place] [address] Irineo Ruff MD [address] [place] [address] [email or web address] 01/10/2025 7:30 AM EST - 01/10/2025 8:[address] [facility] Endoscopy Department [address] [place] [address] Irineo Ruff MD [address] [place] [address] [place] [address] [email or web address] COLONOSCOPY 01/31/2025 1:00 PM EST Office Visit [facility] Cardi[facility] Medicine [address] [facility], 5th Floor, [address] [place] [address] Karena Betancur MD [address] [facility] [address] [place] [address] [email or web address] Scheduled Procedures Name [...] documented as of this encounter Care Teams Fisher Hoop Net Relationship Specialty Start Date End Date Artie Meehan MD [address] [place] [address] [place] [address] PCP - General Internal Medicine 10/26/17 06/03/21 Laura Mock MD, DMD [address] [address] [email or web address] PCP - General Internal Medicine 06/04/21 11/11/23 Pcp, Unknown PCP - General 11/12/23 11/16/23 Laura Mock MD, DMD [address] [address] [email or web address] PCP - General Internal Medicine 11/17/23 12/28/23 Pcp, Unknown PCP - General 02/28/24 03/04/24 [place] [address] [address] PCP - General 03/05/24 05/17/24 Laura Mock MD, DMD [address] [address] [email or web address] so PCP - General Internal Medicine 05/18/24 Artie Meehan MD [address] [place] [address] Dr [address] [place] [address] Internal Medicine 10/26/17 04/23/22 Rina Swenson MD [address] [place] [address] Dr [address] [place] [address] Psychiatry 07/09/17 Laura Mock MD, DMD [address] [address] [email or web address] Partners Attributed Provider 09/01/21 07/03/23 Laura Mock MD, DMD [address] [address] [email or web address] Insurance Assigned Provider 05/31/23 03/01/24 Jakob Bob MD [address] [place] [address] [address] [place] [address] [email or web address] Cardiology 08/22/23 Jose Cruz MD 22 [facility], [address] [place] [address] [email or web address] Cardiology 08/22/23 Laura Mock MD, DMD [address] [place] [address] [address] [place] [address] [email or web address]. du Partners Attributed Provider 09/01/21 07/03/23 [facility] [phone]. Consulting Provider 08/22/23 [facility] Connect 12/24/23 03/11/24 Cyril Morales [address] [place] [address] Nurse Practitioner 02/27/24 documented as of this encounter Additional Source Comments The information contained in this document represents components of the legal health record. It is not the complete legal health record.[facility]
--- OUTSIDE RECORDS SUMMARY | 2024-12-28 16:30 | XMS_ITS | Encounter Summary ---
Author Organization [facility] Address [facility] [address] [place] [address] Phone Care Team Providers Care Chancellor Name Role Phone Artie Meehan MD Unavailable Rina Swenson MD Unavailable Laura Mock MD, DMD Primary Car e Provider Laura Mock MD, DMD Unavailable Laura Mock MD, DMD Unavailable Jakob Bob MD Unavailable [phone] Jose Cruz MD Unavailable [phone] Laura Mock MD, DMD Unavailable Pcp, Unknown Primary Care Provider UnavailLaura Ascencio MD, DMD Primary Car e Provider Pcp, Unknown Primary Care Provider UnavailNicole Arguello MD Primary Care Provide r Laura Mock MD, DMD Primary Car e Provider Encounter Details Date Type Department Care Team (Late st Contact Info) Description 04/05/2022 [facility] [address] [place] [address] Melvin Stewart, [facility] [address] [place] [address] [email or web address] Social History Tobacco Use Types Packs/Day [...] 01/05/2025 11:00 AM EST Pre-Admission Testing [address] [address] Irineo Ruff MD [address] [place] [address] [email or web address] 01/10/2025 Procedure Pass [facility] Endoscopy Department [address] [place] [address] 01/10/2025 7:30 AM EST Hospital Encounter [facility] Endoscopy Department [address] [place] [address] Irineo Ruff MD [address] [place] [address] WALI@[email or web address] 01/10/2025 7:30 AM EST - 01/10/2025 8:15 AM EST Surgery [facility] Endoscopy Department [address] [place] [address] Irineo Ruff MD [address] [place] [address] [email or web address] COLONOSCOPY 01/31/2025 1:00 PM EST Office Visit [facility] Cardiovascular Medicine 32 [facility], 5th Floor, [address] [place] [address] Karena Betancur MD 55 [facility] [address] [place] [address] [email or web address] Scheduled Procedures Name Priority Associated [...] documented as of this encounter Care Teams Chancellor Relationship Specialty Start Date End Date Laura Mock MD, DMD [address] [address] [email or web address] PCP - General Internal Medicine 06/04/21 11/11/23 Pcp, Unknown PCP - General 11/12/23 11/16/23 Laura Mock MD, DMD [address] [address] [email or web address] PCP - General Internal Medicine 11/17/23 12/28/23 Pcp, Unknown PCP - General 02/28/24 03/04/24 [place] [address] [address] PCP - General 03/05/24 05/17/24 Laura Mock MD, DMD [address] [address] [email or web address] PCP - General Internal Medicine 05/18/24 Artie Meehan MD [address] [place] [address] Dr [address] [place] [address] Internal Medicine 10/26/17 04/23/22 Rina Swenson MD [address] [place] [address] Dr [address] [place] [address] Psychiatry 07/09/17 Laura Mock MD, DMD [address] [address] [email or web address] Partners Attributed Provider 09/01/21 07/03/23 Laura Mock MD, DMD [address] [address] [email or web address] Insurance Assigned Provider 05/31/23 03/01/24 Jakob Bob MD [address] [place] [address] [place] [address] [email or web address] Cardiology 08/22/23 Jose Cruz MD [address] [place] [address], [facility] [address] [place] [address] Cardiology 08/22/23 Laura Mock MD, DMD 1 [place] [address] [email or web address] Partners Attributed Provider 09/01/21 07/03/23 [facility] [phone]. Consulting Provider 08/22/23 [facility] Connect 12/24/23 03/11/24 Cyril Morales [address] [place] [phone] Nurse Practitioner 02/27/24 documented as of this encounter Additional Source Comments The information contained in this document represents components of the legal health record. It is not the complete legal health record.[facility]
--- OUTSIDE RECORDS SUMMARY | 2024-12-28 16:30 | XMS_ITS | Encounter Summary ---
Author Organization [facility] Address [facility] [address] [place] [address] Phone Care Team Providers Care Home [employer]ot Rep Name Role Phone Artie Meehan MD Primary Care Provider Artie Meehan MD Unavailable [phone] Rina Swenson MD Unavailable Laura Mock MD, DMD Primary Car e Provider Laura Mock MD, DMD Unavailable Laura Mock MD, DMD Unavailable Jakob Bob MD Unavailable [phone] Jose Cruz MD Unavailable [phone] Laura Mock MD, DMD Unavailable Pcp, Unknown Primary Care Provider UnavailLaura Ascencio MD, DMD Primary Car e Provider Pcp, Unknown Primary Care Provider UnavailNicole Arguello MD Primary Care Provide r Laura Mock MD, DMD Primary Car e Provider Encounter Details Date Type Department Care Team (Late st Contact Info) Description 11/15/2020 Transcribe Orders Virtual Department [address] [place] [address] Artie Meehan MD [address] [place] [address] [place] [address] Asymptomatic menopausal state (Primary Dx); Age-related osteoporosis [...] Description 01/05/2025 11:00 AM EST [facility]mission [facility] [address] [place] [address] 2nd [place] [address] Irineo Ruff MD [address] [place] [address] [email or web address] 01/10/2025 Procedure Pass [facility] Endoscopy Department [address] [place] [address] 01/10/2025 7:30 AM EST Hospital Encounter [facility] Endoscopy Department [address] [place] [address] Irineo Ruff MD [address] [place] [address] [email or web address] 01/10/2025 7:30 AM EST - 01/10/2025 8:15 AM EST Surgery [facility] Endoscopy Department [address] [place] [address] Irineo Ruff MD [address] [place] [address] [email or web address]@[email or web address] COLONOSCOPY 01/31/2025 1:00 PM EST Office Visit [facility] Cardiovascular Medicine 32 [facility], 5th Floor, [address] [place] [address] Karena Betancur MD [address] [facility] [address] [place] [address] [email or web address] Scheduled Procedures Name Priority Associated [...] bone mineral density was calculated at 0.409 gm/xz3rich a T- score of -4 falling within [...] documented as of this encounter Care Teams Home [employer] Rep Relationship Specialty Start Date End Date Artie Meehan MD [address] [place] [address] [place] [address] PCP - General Internal Medicine 10/26/17 06/03/21 Laura Mock MD, DMD [address] [address] [email or web address] PCP - General Internal Medicine 06/04/21 11/11/23 Pcp, Unknown PCP - General 11/12/23 11/16/23 Laura Mock MD, DMD [address] [address] [email or web address] PCP - General Internal Medicine 11/17/23 12/28/23 Pcp, Unknown PCP - General 02/28/24 03/04/24 Nicole Newell MD [address] [place] [address] PCP - General 03/05/24 05/17/24 Laura Mock MD, DMD [address] [address] [email or web address] du PCP - General Internal Medicine 05/18/24 Artie Meehan MD [address] [place] [address] [place] [address] Internal Medicine 10/26/17 04/23/22 Rina Swenson MD [address] [place] [address] [place] [address] Psychiatry 07/09/17 Laura Mock MD, DMD [address] [address] [email or web address] Partners Attributed Provider 09/01/21 07/03/23 Laura Mock MD, DMD [address] [address] [email or web address]. du Insurance Assigned Provider 05/31/23 03/01/24 Jakob Bob MD [address] [place] [address] [email or web address] Cardiology 08/22/23 Jose Cruz MD [address] [place] [address], [address] [address] [email or web address] Cardiology 08/22/23 Laura Mock MD, DMD [address] [address] [email or web address]. du Partners Attributed Provider 09/01/21 07/03/23 [facility] [phone]. Consulting Provider 08/22/23 [facility] Connect 12/24/23 03/11/24 Cyril Morales [address] [place] [address] Nurse Practitioner 02/27/24 documented as of this encounter Additional Source Comments The information contained in this document represents components of the legal health record. It is not the complete legal health record.[facility]
--- OUTSIDE RECORDS SUMMARY | 2024-12-28 16:30 | XMS_ITS | Encounter Summary ---
Author Organization [facility] Address [facility] [employer] [facility] [address] [place] [address] Phone Care Team Providers Care Parts Room Assistant Name Role Phone Artie Meehan MD Primary Care Provider Artie Meehan MD Unavailable Rina Swenson MD Unavailable [phone] Laura Mock MD, DMD Primary Car e Provider Laura Mock MD, DMD Unavailable Laura Mock MD, DMD Unavailable Jakob Bob MD Unavailable [phone] Jose Cruz MD Unavailable Laura Mock MD, DMD Unavailable Pcp, Unknown Primary Care Provider UnavailLaura Ascencio MD, DMD Primary Car e Provider Pcp, Unknown Primary Care Provider UnavailNicole Arguello MD Primary Care Provide r Laura Mock MD, DMD Primary Car e Provider Encounter Details Date Type Department Care Team (Late st Contact Info) Description 11/07/2020 Procedure Pass [facility], [address] [address] Social History Tobacco Use Types Packs/Day Years [...] 01/05/2025 11:00 AM EST Pre-Admission Testing [address] 2nd [place] [address] Irineo Ruff MD [address] [place] [address] [place] [address] [email or web address] 01/10/2025 Procedure Pass [facility] Endoscopy Department [address] [place] [address] 01/10/2025 7:30 AM EST Hospital Encounter [facility] Endoscopy Department [address] [place] [address] Irineo Ruff MD [address] [place] [address] [place] [address] [email or web address] 01/10/2025 7:30 AM EST - 01/10/2025 8:15 AM EST Surgery [facility] Endoscopy Department [address] [place] [address] Irineo Ruff MD [address] [place] [address] [email or web address] COLONOSCOPY 01/31/2025 1:00 PM EST Office Visit [facility] Cardiovascular Medicine [address] [place] [address], 5th Floor, [address] [place] [address] Karena Betancur MD [address] [place] [address] [email or web address] Scheduled Procedures Name Priority Associated Diagnoses [...] as of this encounter Care Teams Parts Room Assistant Relationship Specialty Start Date End Date Artie Meehan MD [address] [place] [address] PCP - General Internal Medicine 10/26/17 06/03/21 Laura Mock MD, DMD [address] [address] [email or web address] PCP - General Internal Medicine 06/04/21 11/11/23 Pcp, Unknown PCP - General 11/12/23 11/16/23 Laura Mock MD, DMD [address] [address] [email or web address] PCP - General Internal Medicine 11/17/23 12/28/23 Pcp, Unknown PCP - General 02/28/24 03/04/24 Nicole Newell [place] [address] [place] [address] PCP - General 03/05/24 05/17/24 Laura Mock MD, DMD [address] [address] [email or web address] du PCP - General Internal Medicine 05/18/24 Artie Meehan MD [address] [place] [address] [address] [place] [address] Internal Medicine 10/26/17 04/23/22 Rina Swenson MD [address] [place] [address] Dr [address] [place] [address] Psychiatry 07/09/17 Laura Mock MD, DMD [address] [address] [email or web address] Partners Attributed Provider 09/01/21 07/03/23 Laura Mock MD, DMD [address] [address] [email or web address] Insurance Assigned Provider 05/31/23 03/01/24 Jakob Bob MD [address] [place], [place] [address] [place] [address] [email or web address] Cardiology 08/22/23 Jose Cruz MD [address] [place] [address], [address] [place] [address] Cardiology 08/22/23 Laura Mock MD, DMD 1 [facility] [address] [place] [address] [email or web address] Partners Attributed Provider 09/01/21 07/03/23 [facility] [phone]. Consulting Provider 08/22/23 [facility] Connect 12/24/23 03/11/24 Cyril Morales [address] [place] [place] [phone] Nurse Practitioner 02/27/24 documented as of this encounter Additional Source Comments The information contained in this document represents components of the legal health record. It is not the complete legal health record.[facility]
--- OUTSIDE RECORDS SUMMARY | 2024-12-28 16:30 | XMS_ITS | Encounter Summary ---
Author Organization [facility] Address [facility] [address] [place] [address] Phone Care Team Providers Care Wool Grader Name Role Phone Artie Meehan MD Unavailable Rina Swenson MD Unavailable [phone] Laura Mock MD, DMD Primary Car e [...] st Contact Info) Description 02/18/2022 Anti-coag visit [facility] Anticoagulation Clinic [address] [place] [address] Rony Amaro, [facility] [address] [address] [email or web address] Social History Tobacco Use Types Packs/Day [...] 01/05/2025 11:00 AM EST Pre-Admission Testing [address] [address] Irineo Ruff MD [address] [place] [address] [place] [address] [email or web address] 01/10/[address] [facility] Endoscopy Department [address] [place] [address] 01/10/2025 7:30 AM EST Hospital Encounter [facility] Endoscopy Department [address] [place] [address] Irineo Ruff MD [address] [place] [address] [email or web address]@[email or web address] 01/10/2025 7:30 AM EST - 01/10/2025 8:[address] [facility] Endoscopy Department [address] [place] [address] Irineo Ruff MD [address] [place] [address] [place] [address] [email or web address] COLONOSCOPY 01/31/2025 1:00 PM EST Office Visit [facility] Cardiovascular Medicine [address] [facility], 5th Floor, [address] [place] [address] Karena Betancur MD 55 [facility] [address] [place] [address] FRANK@[email or web address] Scheduled Procedures Name Priority Associated [...] documented as of this encounter Care Teams Wool Grader Relationship Specialty Start Date End Date Laura Mock MD, DMD [address] [address] [email or web address] so PCP - General Internal Medicine 06/04/21 11/11/23 Pcp, Unknown PCP - General 11/12/23 11/16/23 Laura Mock MD, DMD [address] [address] [email or web address] PCP - General Internal Medicine 11/17/23 12/28/23 Pcp, Unknown PCP - General 02/28/24 03/04/24 [place] [address] [address] PCP - General 03/05/24 05/17/24 Laura Mock MD, DMD [address] [address] [email or web address] PCP - General Internal Medicine 05/18/24 Artie Meehan MD [address] [place] [address] [address] [place] [address] Internal Medicine 10/26/17 04/23/22 Rina Swenson MD [address] [place] [address] Dr [address] [place] [address] Psychiatry 07/09/17 Laura Mock MD, DMD [address] [address] [email or web address] du Partners Attributed Provider 09/01/21 07/03/23 Laura Mock MD, DMD [address] [address] [email or web address] du Insurance Assigned Provider 05/31/23 03/01/24 Jakob Bob MD [address] [place], [place] [address] [place] [address] [email or web address] Cardiology 08/22/23 Jose Cruz MD [address] [place] [address], [facility] [address] [place] [address] Cardiology 08/22/23 Laura Mock MD, DMD 1 [facility] [address] [place] [address] [email or web address] Partners Attributed Provider 09/01/21 07/03/23 [facility] [phone]. Consulting Provider 08/22/23 [facility] Connect 12/24/23 03/11/24 Cyril Morales [address] [place] [phone] Nurse Practitioner 02/27/24 documented as of this encounter Additional Source Comments The information contained in this document represents components of the legal health record. It is not the complete legal health record.[facility]
--- OUTSIDE RECORDS SUMMARY | 2024-12-28 16:30 | XMS_ITS | Encounter Summary ---
Author Organization [facility] Address [facility] [address] [place] [address] Phone Care Team Providers Care Inclined Railway Operator Name Role Phone Artie Meehan MD Primary Care Provider Artie Meehan MD Unavailable [phone] Rina Swenson MD Unavailable Laura Mock MD, DMD Primary Car e Provider Laura Mock MD, DMD Unavailable Laura Mock MD, DMD Unavailable Jakob Bob MD Unavailable [phone] Jose Cruz MD Unavailable Laura Mock MD, DMD Unavailable Pcp, Unknown Primary Care Provider UnavailLaura Ascencio MD, DMD Primary Car e Provider Pcp, Unknown Primary Care Provider UnavailNicole Arguello MD Primary Care Provide r Laura Mock MD, DMD Primary Car e Provider Encounter Details Date Type Department Care Team (Late st Contact Info) Description 07/06/2020 Procedure Pass [facility] [place] [address] [place] [address] Social History Tobacco Use Types Packs/Day Years [...] 01/05/2025 11:00 AM EST Pre-Admission Testing [address] 2nd [place] [address] Irineo Ruff MD [address] [place] [address] [place] [address] [email or web address] 01/10/2025 Procedure Pass [facility] Endoscopy Department [address] [place] [address] 01/10/2025 7:30 AM EST Hospital Encounter [facility] Endoscopy Department [address] [place] [address] Irineo Ruff MD [address] [place] [address] [email or web address]@[email or web address] 01/10/2025 7:30 AM EST - 01/10/2025 8:15 AM EST Surgery [facility] Endoscopy Department [address] [place] [address] Irineo Ruff MD [address] [place] [address] [email or web address] COLONOSCOPY 01/31/2025 1:00 PM EST Office Visit [facility] Cardiovascular Medicine [address] [place] [address], 5th Floor, [address] [place] [address] Karena Betancur MD [address] [facility] [facility] [address] [place] [address] [email or web address] Scheduled Procedures Name Priority Associated Diagnoses [...] documented as of this encounter Care Teams Inclined Railway Operator Relationship Specialty Start Date End Date Artie Meehan MD [address] [place] [address] PCP - General Internal Medicine 10/26/17 06/03/21 Laura Mock MD, DMD [address] [address] [email or web address] du PCP - General Internal Medicine 06/04/21 11/11/23 Pcp, Unknown PCP - General 11/12/23 11/16/23 Laura Mock MD, DMD [address] [address] [email or web address] PCP - General Internal Medicine 11/17/23 12/28/23 Pcp, Unknown PCP - General 02/28/24 03/04/24 [place] Newell [place] [address] [place] [address] PCP - General 03/05/24 05/17/24 Laura Mock MD, DMD [address] [address] [email or web address] du PCP - General Internal Medicine 05/18/24 Artie Meehan MD [address] [place] [address] Dr [address] [place] [address] Internal Medicine 10/26/17 04/23/22 Rina Swenson MD [address] [place] [address] Dr [address] [place] [address] Psychiatry 07/09/17 Laura Mock MD, DMD [address] [address] [email or web address] Partners Attributed Provider 09/01/21 07/03/23 Laura Mock MD, DMD [address] [address] [email or web address] du Insurance Assigned Provider 05/31/23 03/01/24 Jakob Bob MD [address] [place] [address] [address] [place] [address] [email or web address] Cardiology 08/22/23 Jose Cruz MD [address] [place] [address], [address] [place] [address] Cardiology 08/22/23 Laura Mock MD, DMD 1 [facility] [address] [place] [address] [email or web address] Partners Attributed Provider 09/01/21 07/03/23 [facility] [phone]. Consulting Provider 08/22/23 [facility] Connect 12/24/23 03/11/24 Cyril Morales [facility] [place] [address] Nurse Practitioner 02/27/24 documented as of this encounter Additional Source Comments The information contained in this document represents components of the legal health record. It is not the complete legal health record.[facility]
--- OUTSIDE RECORDS SUMMARY | 2024-12-28 16:31 | XMS_ITS | Encounter Summary ---
Author Organization [facility] Address [facility] [address] [address] Phone Care Team Providers Care Merchant Police Name Role Phone Rina Swenson MD Unavailable [...] 01/05/2025 11:00 AM EST Pre-Admission Testing [address] [address] Irineo Ruff MD [address] [place] [address] [email or web address] 01/10/2025 Procedure Pass [facility] Endoscopy Department [address] [place] [address] 01/10/2025 7:30 AM EST Hospital Encounter [facility] Endoscopy Department [address] [place] [address] Irineo Ruff MD [address] [place] [address] [email or web address] 01/10/2025 7:30 AM EST - 01/10/2025 8:15 AM EST Surgery [facility] Endoscopy Department [address] [place] [address] Irineo Ruff MD [address] [place] [address] [email or web address] COLONOSCOPY 01/31/2025 1:00 PM EST Office Visit [facility] Cardiovascular Medicine 32 [facility], 5th Floor, [address] [place] [address] Karena Betancur MD [address] [facility] [address] [place] [address] [email or web address] Scheduled Procedures Name [...] documented as of this encounter Care Teams Merchant Police Relationship Specialty Start Date End Date Laura Mock MD, DMD [address] [address] [email or web address] du PCP - General Internal Medicine 06/04/21 11/11/23 Pcp, Unknown PCP - General 11/12/23 11/16/23 Laura Mock MD, DMD [address] [address] [email or web address] PCP - General Internal Medicine 11/17/23 12/28/23 Pcp, Unknown PCP - General 02/28/24 03/04/24 Nicole Newell MD [address] [place] [address] [id number] PCP - General 03/05/24 05/17/24 Laura Mock MD, DMD [address] [address] [email or web address] PCP - General Internal Medicine 05/18/24 Rina Swenson MD Psychiatry 07/09/17 Laura Mock MD, DMD [address] [address] [email or web address] Attributed Provider 09/01/21 07/03/23 Laura Mock MD, DMD [address] [address] [email or web address] Insurance Assigned Provider 05/31/23 03/01/24 Jakob Bob MD [address] [facility] [place] [address] [email or web address] Cardiology 08/22/23 Jose Cruz MD [address] [place] [address] Cardiology 08/22/23 Laura Mock MD, DMD [address] [address] [email or web address] Partners Attributed Provider 09/01/21 07/03/23 [facility] [phone]. Consulting Provider 08/22/23 [facility] Connect 12/24/23 03/11/24 Cyril Morales [address] [place] [address] Nurse Practitioner 02/27/24 documented as of this encounter Additional Source Comments The information contained in this document represents components of the legal health record. It is not the complete legal health record.[facility]
--- OUTSIDE RECORDS SUMMARY | 2024-12-28 16:31 | XMS_ITS | Encounter Summary ---
Author Organization [facility] Address [facility] [address] [place] [address] Phone Care Team Providers Care Chainstitch Felled Seam Operator Name Role Phone Artie Meehan MD [...] st Contact Info) Description 10/19/2021 Anti-coag visit [facility] Anticoagulation Clinic [address] [place] [address] Melvin Stewart, [facility] [address] [place] [address] [email or web address] Social History Tobacco Use Types [...] Description 01/05/2025 11:00 AM EST Pre-Admission Testing [address] [address] Irineo Ruff MD [address] [place] [address] [email or web address]@[email or web address] 01/10/2025 Procedure Pass [facility] Endoscopy Department [address] [place] [address] 01/10/2025 7:30 AM EST Hospital Encounter [facility] Endoscopy Department [address] [place] [address] Irineo Ruff MD [address] [place] [address] [email or web address]@[email or web address] 01/10/2025 7:30 AM EST - 01/10/2025 8:15 AM EST Surgery [facility] Endoscopy Department [address] [place] [address] Irineo Ruff MD [address] [place] [address] [email or web address] [email or web address] 01/31/2025 1:00 PM EST Office Visit [facility] Cardiovascular Medicine 32 [facility], 5th Floor, [address] [place] [address] Karena Betancur MD 55 [facility] [address] [place] [address] [email or web address] Scheduled Procedures Name Priority Associated Diagnoses [...] documented as of this encounter Care Teams Chainstitch Felled Seam Operator Relationship Specialty Start Date End Date Laura Mock MD, DMD [address] [address] [email or web address] du PCP - General Internal Medicine 06/04/21 11/11/23 Pcp, Unknown PCP - General 11/12/23 11/16/23 Laura Mock MD, DMD 1 [facility] [address] [place] [address] [email or web address] PCP - General Internal Medicine 11/17/23 12/28/23 Pcp, Unknown PCP - General 02/28/24 03/04/24 Nicole Newell MD [address] [place] [address] PCP - General 03/05/24 05/17/24 Laura Mock MD, DMD [address] [address] [email or web address] du PCP - General Internal Medicine 05/18/24 Artie Meehan MD [address] [place] [address] [place] [address] Internal Medicine 10/26/17 04/23/22 Rina Swenson MD [address] [place] [address] [place] [address] Psychiatry 07/09/17 Laura Mock MD, DMD [address] [address] [email or web address] du Partners Attributed Provider 09/01/21 07/03/23 Laura Mock MD, DMD [address] [address] [email or web address] du Insurance Assigned Provider 05/31/23 03/01/24 Jakob Bob MD [address] [place] [address] [place] [address] [email or web address] Cardiology 08/22/23 Jose Cruz MD [address] [place] [address], [address] [address] Cardiology 08/22/23 Laura Mock MD, DMD 1 [facility] [address] [place] [address] [email or web address] Partners Attributed Provider 09/01/21 07/03/23 [facility] [phone]. Consulting Provider 08/22/23 [facility] Connect 12/24/23 03/11/24 Cyril Morales [facility] [place] [address] Nurse Practitioner 02/27/24 documented as of this encounter Additional Source Comments The information contained in this document represents components of the legal health record. It is not the complete legal health record.[facility]
--- OUTSIDE RECORDS SUMMARY | 2024-12-28 16:31 | XMS_ITS | Encounter Summary ---
Author Organization [facility] Address [facility] [address] [address] Phone Care Team Providers Care Puncher Name Role Phone Artie Meehan MD Unavailable [...] EST Pre-Admission Testing [facility] 45 [facility] 2nd [place] [address] Irineo Ruff MD [address] [place] [address] [email or web address] 01/10/2025 Procedure Pass [facility] Endoscopy Department [address] [place] [address] 01/10/2025 7:30 AM EST Hospital Encounter [facility] Endoscopy Department [address] [place] [address] Irineo Ruff MD [address] [place] [address] [email or web address] 01/10/2025 7:30 AM EST - 01/10/2025 8:15 AM EST Surgery [facility] Endoscopy Department [address] [place] [address] Irineo Ruff MD [address] [place] [address] [email or web address] COLONOSCOPY 01/31/2025 1:00 PM EST Office Visit [facility] Cardiovascular Medicine 32 [facility], 5th Floor, [address] [place] [address] Karena Betancur MD [address] [address] [email or web address] Scheduled Procedures Name Priority Associated Diagnoses [...] documented as of this encounter Care Teams Puncher Relationship Specialty Start Date End Date Laura Mock MD, DMD [address] [place] [address] [email or web address] PCP - General Internal Medicine 06/04/21 11/11/23 Pcp, Unknown PCP - General 11/12/23 11/16/23 Laura Mock MD, DMD [address] [place] [address] [email or web address] du PCP - General Internal Medicine 11/17/23 12/28/23 Pcp, Unknown PCP - General 02/28/24 03/04/24 Nicole Newell MD [address] [place] [address] PCP - General 03/05/24 05/17/24 Laura Mock MD, DMD 1 [address] [place] [address] [email or web address] du PCP - General Internal Medicine 05/18/24 Artie Meehan MD [address] [place] [address] Dr [place] [address] Internal Medicine 10/26/17 04/23/22 Rina Swenson MD [address] [place] [address] [place] [address] Psychiatry 07/09/17 Laura Mock MD, DMD [address] [address] [email or web address] Attributed Provider 09/01/21 07/03/23 Laura Mock MD, DMD [address] [address] [email or web address] Insurance Assigned Provider 05/31/23 03/01/24 Jakob Bob MD [address] [place] [address] [email or web address] Cardiology 08/22/23 Jose Cruz MD [address] [place] [address] Cardiology 08/22/23 Laura Mock MD, DMD [address] [address] [email or web address] Partners Attributed Provider 09/01/21 07/03/23 [facility] [phone]. Consulting Provider 08/22/23 CAROL[facility] GREWAL Connect 12/24/23 03/11/24 Cyril Morales [address] [place] [address] Nurse Practitioner 02/27/24 documented as of this encounter Additional Source Comments The information contained in this document represents components of the legal health record. It is not the complete legal health record.[facility]
--- OUTSIDE RECORDS SUMMARY | 2024-12-28 16:31 | XMS_ITS | Encounter Summary ---
Author Organization [facility] Address [facility] [address] [place] [address] Phone Care Team Providers Care Bookmobile Librarian Name Role Phone Artie Meehan MD Unavailable [...] st Contact Info) Description 09/13/2021 Anti-coag visit [facility] Anticoagulation Clinic [address] [place] [address] Abbie Prieto, PharmD [address] [address] [email or web address] Social History Tobacco Use Types [...] 01/05/2025 11:00 AM EST Pre-Admission Testing [address] 2nd [place] [address] Irineo Ruff MD [address] [place] [address] [place] [address] [email or web address] 01/10/2025 Procedure Pass [facility] Endoscopy Department [address] [place] [address] 01/10/2025 7:30 AM EST Hospital Encounter [facility] Endoscopy Department [address] [place] [address] Irineo Ruff MD [address] [place] [address] [email or web address] 01/10/2025 7:30 AM EST - 01/10/2025 8:15 AM EST Surgery [facility] Endoscopy Department [address] [place] [address] Irineo Ruff MD [address] [place] [address] [place] [address] [email or web address] COLONOSCOPY 01/31/2025 1:00 PM EST Office Visit [facility] Cardiovascular Medicine 32 [facility], 5th Floor, [address] [place] [address] Karena Betancur MD 55 [facility] [address] [place] [address] [email or web address] Scheduled Procedures Name Priority Associated [...] documented as of this encounter Care Teams Bookmobile Librarian Relationship Specialty Start Date End Date Laura Mock MD, DMD [address] [address] [email or web address] PCP - General Internal Medicine 06/04/21 11/11/23 Pcp, Unknown PCP - General 11/12/23 11/16/23 Laura Mock MD, DMD [address] [address] [email or web address] PCP - General Internal Medicine 11/17/23 12/28/23 Pcp, Unknown PCP - General 02/28/24 03/04/24 Nicole Newell [place] [address] [place] [address] PCP - General 03/05/24 05/17/24 Laura Mock MD, DMD [address] [address] [email or web address] du PCP - General Internal Medicine 05/18/24 Artie Meehan MD [address] [place] [address] Dr [address] [place] [address] Internal Medicine 10/26/17 04/23/22 Rina Swenson MD [address] [place] [address] Dr D[address] [place] [address] [place] [address] Psychiatry 07/09/17 Laura Mock MD, DMD [address] [address] [email or web address] du Partners Attributed Provider 09/01/21 07/03/23 Laura Mock MD, DMD [address] [address] [email or web address] du Insurance Assigned Provider 05/31/23 03/01/24 Jakob Bob MD [address] [place] [address] [place] [address] [email or web address] Cardiology 08/22/23 Jose Cruz MD [address] [place] [address], [address] [address] Cardiology 08/22/23 Laura Mock MD, DMD 1 [facility] [address] [place] [address] [email or web address] Partners Attributed Provider 09/01/21 07/03/23 [facility] [phone]. Consulting Provider 08/22/23 CAROLANN GREWAL Connect 12/24/23 03/11/24 Cyril Morales [address] [place] [address] Nurse Practitioner 02/27/24 documented as of this encounter Additional Source Comments The information contained in this document represents components of the legal health record. It is not the complete legal health record.[facility]
--- OUTSIDE RECORDS SUMMARY | 2024-12-28 16:31 | XMS_ITS | Encounter Summary ---
Author Organization [facility] Address [address] [facility] [address] [place] [address] Phone Care Team Providers Care Therapist Speech Name Role Phone Rina Swenson MD Unavailable Laura Mock MD, DMD Primary Car e Provider Laura Mock MD, DMD Unavailable Laura Mock MD, DMD Unavailable Jakob Bob MD Unavailable [phone] Jose Cruz MD Unavailable Laura Mock MD, DMD Unavailable Pcp, Unknown Primary Care Provider UnavailLaura Ascencio MD, DMD Primary Car e Provider Pcp, Unknown Primary Care Provider UnavailNicole Arguello MD Primary Care Provide r Laura Mock MD, DMD Primary Car e Provider Encounter Details Date Type Department Care Team (Late st Contact Info) Description 12/25/2022 Procedure Pass [address] [address] Social History Tobacco Use Types Packs/Day Years [...] 01/05/2025 11:00 AM EST Pre-Admission Testing [address] [address] Irineo Ruff MD [address] [place] [address] [email or web address] 01/10/2025 Procedure Pass [facility] Endoscopy Department [address] [place] [address] 01/10/2025 7:30 AM EST Hospital Encounter [facility] Endoscopy Department [address] [place] [address] Irineo Ruff MD [address] [place] [address] [email or web address]@[email or web address] 01/10/2025 7:30 AM EST - 01/10/2025 8:15 AM EST Surgery [facility] Endoscopy Department [address] [place] [address] Irineo Ruff MD [address] [place] [address] [email or web address] COLONOSCOPY 01/31/2025 1:00 PM EST Office Visit [facility] Cardiovascular Medicine 32 [facility], 5th Floor, [address] [place] [address] Karena Betancur MD 55 [facility] [address] [place] [address] [email or web address] Scheduled Procedures Name [...] documented as of this encounter Care Teams Therapist Speech Relationship Specialty Start Date End Date Laura Mock MD, DMD [address] [address] [email or web address] PCP - General Internal Medicine 06/04/21 11/11/23 Pcp, Unknown PCP - General 11/12/23 11/16/23 Laura Mock MD, DMD 1 [facility] [address] [place] [address] [email or web address] PCP - General Internal Medicine 11/17/23 12/28/23 Pcp, Unknown PCP - General 02/28/24 03/04/24 [place] [address] [address] PCP - General 03/05/24 05/17/24 Laura Mock MD, DMD [address] [address] [email or web address] du PCP - General Internal Medicine 05/18/24 Rina Swenson MD Psychiatry 07/09/17 Laura Mock MD, DMD [address] [address] [email or web address] Partners Attributed Provider 09/01/21 07/03/23 Laura Mock MD, DMD [address] [address] [email or web address] Insurance Assigned Provider 05/31/23 03/01/24 Jakob Bob MD [address] [facility] [place] [address] [email or web address] Cardiology 08/22/23 Jose Cruz MD [address] [place] [address], [address] [place] [address] Cardiology 08/22/23 Laura Mock MD, DMD [address] [address] [email or web address] Partners Attributed Provider 09/01/21 07/03/23 [facility] [phone]. Consulting Provider 08/22/23 [facility] Connect 12/24/23 03/11/24 Cyril Morales [facility] [place] [address] Nurse Practitioner 02/27/24 documented as of this encounter Additional Source Comments The information contained in this document represents components of the legal health record. It is not the complete legal health record.[facility]
--- OUTSIDE RECORDS SUMMARY | 2024-12-28 16:31 | XMS_ITS | Encounter Summary ---
Author Organization [facility] Address [address] [place] [address] Phone Care Team Providers Care Environmental Compliance Officer Name Role Phone Artie Meehan MD [...] PharmD [address] [place] [address] [email or web address] Social History Tobacco Use Types Packs/Day [...] Upcoming Encounters Date Type Department Care Team ([facility] st Contact Info) Description 01/05/2025 11:00 AM EST Pre-Admission Testing [address] [address] Irineo Ruff MD [address] [place] [address] [email or web address] 01/10/2025 Procedure Pass [facility] Endoscopy Department [address] [place] [address] 01/10/2025 7:30 AM EST Hospital Encounter [facility] Endoscopy Department [address] [place] [address] Irineo Ruff MD [address] [place] [address] [email or web address] 01/10/2025 7:30 AM EST - 01/10/2025 8:15 AM EST Surgery [facility] Endoscopy Department [address] [place] [address] Irineo Ruff MD [address] [place] [address] [email or web address] COLONOSCOPY 01/31/2025 1:00 PM EST Office Visit [facility] Cardiovascular Medicine 32 [facility], 5th Floor, [address] [place] [address] Karena Betancur MD 55 [facility] [address] [place] [address] [email or web address] Scheduled Procedures Name Priority Associated [...] as of this encounter Care Teams Environmental Compliance Officer Relationship Specialty Start Date End Date Laura Mock MD, DMD [address] [address] [email or web address] PCP - General Internal Medicine 06/04/21 11/11/23 Pcp, Unknown PCP - General 11/12/23 11/16/23 Laura Mock MD, DMD 1 [facility] [address] [place] [address] [email or web address] du PCP - General Internal Medicine 11/17/23 12/28/23 Pcp, Unknown PCP - General 02/28/24 03/04/24 Nicole Newell MD [address] [place] [address] PCP - General 03/05/24 05/17/24 Laura Mock MD, DMD [address] [address] [email or web address] du PCP - General Internal Medicine 05/18/24 Artie Meehan MD [address] [place] [address] [place] [address] Internal Medicine 10/26/17 04/23/22 Rina Swenson MD [address] [place] [address] [place] [address] Psychiatry 07/09/17 Laura Mock MD, DMD [address] [address] [email or web address] du Partners Attributed Provider 09/01/21 07/03/23 Laura Mock MD, DMD [address] [address] [email or web address] du Insurance Assigned Provider 05/31/23 03/01/24 Jakob Bob MD [address] [place] [address] [place] [address] [email or web address] Cardiology 08/22/23 Jose Cruz MD [address] [place] [address], [address] [address] Cardiology 08/22/23 Laura Mock MD, DMD 1 [facility] [address] [place] [address] [email or web address] Partners Attributed Provider 09/01/21 07/03/23 [facility] [phone]. Consulting Provider 08/22/23 [facility] Connect 12/24/23 03/11/24 Cyril Morales [address] [place] [address] Nurse Practitioner 02/27/24 documented as of this encounter Additional Source Comments The information contained in this document represents components of the legal health record. It is not the complete legal health record.[facility]
--- OUTSIDE RECORDS SUMMARY | 2024-12-28 16:31 | XMS_ITS | Encounter Summary ---
Author Organization [facility] Address [facility] [employer] [facility] [address] [place] [address] Phone Care Team Providers Care Combat Systems Operator Name Role Phone Artie Meehan MD Primary Care Provider Artie Meehan MD Unavailable [phone] Rina Swenson MD Unavailable Laura Mock MD, [...] st Contact Info) Description 12/16/2019 Procedure Pass [address] [address] Social History Tobacco Use Types Packs/Day Years [...] 01/05/2025 11:00 AM EST Pre-Admission Testing [address] 2nd [place] [address] Irineo Ruff MD [address] [place] [address] [place] [address] [email or web address] 01/10/2025 Procedure Pass [facility] Endoscopy Department [address] [place] [address] 01/10/2025 7:30 AM EST Hospital Encounter [facility] Endoscopy Department [address] [place] [address] Irineo Ruff MD [address] [place] [address] [place] [address] [email or web address] 01/10/2025 7:30 AM EST - 01/10/2025 8:15 AM EST Surgery [facility] Endoscopy Department [address] [place] [address] Irineo Ruff MD [address] [place] [address] [place] [address] [email or web address] [email or web address] 01/31/2025 1:00 PM EST Office Visit [facility] Cardiovascular Medicine [address] [place] [address], 5th Floor, [address] [place] [address] Karena Betancur MD [address] [place] [address] [email or web address] Scheduled Procedures Name Priority Associated [...] documented as of this encounter Care Teams Combat Systems Operator Relationship Specialty Start Date End Date Artie Meehan MD [address] [place] [address] PCP - General Internal Medicine 10/26/17 06/03/21 Laura Mock MD, DMD [address] [address] [email or web address] PCP - General Internal Medicine 06/04/21 11/11/23 Pcp, Unknown PCP - General 11/12/23 11/16/23 Laura Mock MD, DMD [address] [address] [email or web address] PCP - General Internal Medicine 11/17/23 12/28/23 Pcp, Unknown PCP - General 02/28/24 03/04/24 Nicole Newell MD [address] [place] [address] PCP - General 03/05/24 05/17/24 Laura Mock MD, DMD [address] [address] [email or web address] du PCP - General Internal Medicine 05/18/24 Artie Meehan MD [address] [place] [address] Dr [address] [place] [address] Internal Medicine 10/26/17 04/23/22 Rina Swenson MD [address] [place] [address] Dr [address] [place] [address] Psychiatry 07/09/17 Laura Mock MD, DMD [address] [address] [email or web address] Partners Attributed Provider 09/01/21 07/03/23 Laura Mock MD, DMD [address] [address] [email or web address] du Insurance Assigned Provider 05/31/23 03/01/24 Jakob Bob MD [address] [place], [place] [address] [place] [address] [email or web address] Cardiology 08/22/23 Jose Cruz MD [address] [place] [address], [facility] [address] [place] [address] Cardiology 08/22/23 Laura Mock MD, DMD 1 [facility] [address] [place] [address] [email or web address] Partners Attributed Provider 09/01/21 07/03/23 [facility] [phone]. Consulting Provider 08/22/23 [facility] Connect 12/24/23 03/11/24 Cyril Morales [address] [place] [address] Nurse Practitioner 02/27/24 documented as of this encounter Additional Source Comments The information contained in this document represents components of the legal health record. It is not the complete legal health record.[facility]
--- OUTSIDE RECORDS SUMMARY | 2024-12-28 16:31 | XMS_ITS | Encounter Summary ---
Author Organization [facility] Address [address] [place] [address] [place] [address] Phone Care Team Providers Care Line Service Person Name Role Phone Rina Swenson MD Unavailable Laura Mock MD, DMD Primary Car e Provider Laura Mock MD, DMD Unavailable Laura Mock MD, DMD Unavailable Jakob Bob MD Unavailable Jose Cruz MD Unavailable [phone] Laura Mock MD, DMD Unavailable Pcp, Unknown Primary Care Provider UnavailLaura Ascencio MD, DMD Primary Car e Provider Pcp, Unknown Primary Care Provider UnavailNicole Arguello MD Primary Care Provide r Laura Mock MD, DMD Primary Car e Provider Encounter Details Date Type Department Care Team (Late st Contact Info) Description 01/21/2023 Anti-coag visit [facility] Anticoagulation Clinic [address] [place] [address] Purvi Lawler, PharmD [address] [place] [address] [email or web address] Social History Tobacco Use Types Packs/Day Years [...] 01/05/2025 11:00 AM EST Pre-Admission Testing [facility] 45 [facility] 2nd [place] [address] Irineo Ruff MD [address] [place] [address] [place] [address] [email or web address] 01/10/2025 Procedure Pass [facility] Endoscopy Department [address] [place] [address] 01/10/2025 7:30 AM EST Hospital Encounter [facility] Endoscopy Department [address] [place] [address] Irineo Ruff MD [address] [place] [address] [email or web address] 01/10/2025 7:30 AM EST - 01/10/2025 8:15 AM EST Surgery [facility] Endoscopy Department [address] [place] [address] Irineo Ruff MD 75 [facility] [place] [address] [email or web address] [email or web address] 01/31/2025 1:00 PM EST Office Visit [facility] Cardiovascular Medicine 32 [facility], 5th Floor, [address] [place] [address] Karena Betancur MD [facility] [address] [place] [address] [email or web address] Scheduled Procedures Name Priority Associated [...] documented as of this encounter Care Teams Line Service Person Relationship Specialty Start Date End Date Laura Mock MD, DMD 1 [facility] [address] [place] [address] [email or web address] PCP - General Internal Medicine 06/04/21 11/11/23 Pcp, Unknown PCP - General 11/12/23 11/16/23 Laura Mock MD, DMD 1 [facility] 225 [place] [address] [email or web address] du PCP - General Internal Medicine 11/17/23 12/28/23 Pcp, Unknown PCP - General 02/28/24 03/04/24 [place] [address] [place] [address] PCP - General 03/05/24 05/17/24 Laura Mock MD, DMD [address] [address] [email or web address] du PCP - General Internal Medicine 05/18/24 Rina Swenson MD Psychiatry 07/09/17 Laura Mock MD, DMD [address] [address] [email or web address] du Partners Attributed Provider 09/01/21 07/03/23 Laura Mock MD, DMD [address] [address] [email or web address] du Insurance Assigned Provider 05/31/23 03/01/24 Jakob Bob MD [address] [place] [address] [place] [address] [email or web address] Cardiology 08/22/23 Jose Cruz MD [address] [place] [address], [facility] [address] [place] [address] Cardiology 08/22/23 Laura Mock MD, DMD 1 [facility] [address] [place] [address] [email or web address] Partners Attributed Provider 09/01/21 07/03/23 [facility] [phone]. Consulting Provider 08/22/23 [facility] Connect 12/24/23 03/11/24 Cyril Morales [facility] [place] [address] Nurse Practitioner 02/27/24 documented as of this encounter Additional Source Comments The information contained in this document represents components of the legal health record. It is not the complete legal health record.[facility]
--- OUTSIDE RECORDS SUMMARY | 2024-12-28 16:31 | XMS_ITS | Encounter Summary ---
Author Organization [facility] Address [facility] [address] [address] Phone Care Team Providers Care Head Cager Name Role Phone Rina Swenson MD Unavailable [phone] Laura Mock MD, DMD Primary Car e [...] Description 01/05/2025 11:00 AM EST Pre-Admission Testing [address] [address] Irineo Ruff MD [address] [place] [address] [email or web address] 01/10/2025 Procedure Pass [facility] Endoscopy Department [address] [place] [address] 01/10/2025 7:30 AM EST Hospital Encounter [facility] Endoscopy Department [address] [place] [address] Irineo Ruff MD [address] [place] [address] [email or web address] 01/10/2025 7:30 AM EST - 01/10/2025 8:15 AM EST Surgery [facility] Endoscopy Department [address] [place] [address] Irineo Ruff MD [address] [place] [address] [email or web address] [email or web address] 01/31/2025 1:00 PM EST Office Visit [facility] Cardiovascular Medicine 32 [facility], 5th Floor, [address] [place] [address] Karena Betancur MD 55 [facility] [address] [place] [address] FRANK@[email or web address] Scheduled Procedures Name [...] as of this encounter Care Teams Head Cager Relationship Specialty Start Date End Date Laura Mock MD, DMD [address] [address] [email or web address] PCP - General Internal Medicine 06/04/21 11/11/23 Pcp, Unknown PCP - General 11/12/23 11/16/23 Laura Mock MD, DMD [address] [address] [email or web address] PCP - General Internal Medicine 11/17/23 12/28/23 Pcp, Unknown PCP - General 02/28/24 03/04/24 Nicole Newell MD [address] [place] [address] [phone] PCP - General 03/05/24 05/17/24 Laura Mock MD, DMD [address] [address] [email or web address] du PCP - General Internal Medicine 05/18/24 Rina Swenson MD Psychiatry 07/09/17 Laura Mock MD, DMD [address] [address] [email or web address] Partners Attributed Provider 09/01/21 07/03/23 Laura Mock MD, DMD [address] [address] [email or web address] Insurance Assigned Provider 05/31/23 03/01/24 Jakob Bob MD [address] [facility] [place] [address] [email or web address] Cardiology 08/22/23 Jose Cruz MD [address] [place] [address] Cardiology 08/22/23 Laura Mock MD, DMD [address] [address] [email or web address] Partners Attributed Provider 09/01/21 07/03/23 [facility] [phone]. Consulting Provider 08/22/23 [facility] Connect 12/24/23 03/11/24 Cyril Morales [address] [place] [address] Nurse Practitioner 02/27/24 documented as of this encounter Additional Source Comments The information contained in this document represents components of the legal health record. It is not the complete legal health record.[facility]
--- OUTSIDE RECORDS SUMMARY | 2024-12-28 16:31 | XMS_ITS | Encounter Summary ---
Author Organization [facility] Address [facility] [employer] [facility] [address] [place] [address] Phone Care Team Providers Care Enrollment Nurse Name Role Phone Artie Meehan MD Primary Care Provider Artie Meehan MD Unavailable [phone] Rina Swenson MD Unavailable Laura Mock MD, DMD Primary Car e Provider Laura Mock MD, DMD Unavailable Laura Mock MD, DMD Unavailable Jakob Bob MD Unavailable [phone] Jose Cruz MD Unavailable Laura Mock MD, DMD Unavailable Pcp, Unknown Primary Care Provider UnavailLaura Ascencio MD, DMD Primary Car e Provider Pcp, Unknown Primary Care Provider UnavailNicole Arguello MD Primary Care Provide r Laura Mock MD, DMD Primary Car e Provider Encounter Details Date Type Department Care Team (Late st Contact Info) Description 12/16/2019 Ancillary Orders Virtual Department [address] [place] [address] Artie Meehan MD [address] [place] [address] [place] [address] Breast screening Social History Tobacco Use Types [...] Description 01/05/2025 11:00 AM EST Pre-Admission Testing [address] [address] Irineo Ruff MD [address] [place] [address] [email or web address] 01/10/2025 Procedure Pass [facility] Endoscopy Department [address] [place] [address] 01/10/2025 7:30 AM EST Hospital Encounter [facility] Endoscopy Department [address] [place] [address] Irineo Ruff MD [address] [place] [address] [email or web address] 01/10/2025 7:30 AM EST - 01/10/2025 8:15 AM EST Surgery [facility] Endoscopy Department [address] [place] [address] Irineo Ruff MD [address] [place] [address] [place] [address] [email or web address] COLONOSCOPY 01/31/2025 1:00 PM EST Office [place] [facility] Cardiovascular Medicine 32 [facility], 5th Floor, [address] [place] [address] Karena Betancur MD 55 [facility] [address] [place] [address] FRANK@[email or web address] Scheduled Procedures Name Priority [...] documented as of this encounter Care Teams Enrollment Nurse Relationship Specialty Start Date End Date Artie Meehan MD [address] [place] [address] [address] PCP - General Internal Medicine 10/26/17 06/03/21 Laura Mock MD, DMD [address] [address] [email or web address] du PCP - General Internal Medicine 06/04/21 11/11/23 Pcp, Unknown PCP - General 11/12/23 11/16/23 Laura Mock MD, DMD [address] [address] [email or web address] du PCP - General Internal Medicine 11/17/23 12/28/23 Pcp, Unknown PCP - General 02/28/24 03/04/24 Nicole [place] [address] [place] [address] PCP - General 03/05/24 05/17/24 Laura Mock MD, DMD [address] [address] [email or web address] du PCP - General Internal Medicine 05/18/24 Artie Meehan MD [address] [place] [address] [place] [address] Internal Medicine 10/26/17 04/23/22 Rina Swenson MD [address] [place] [address] [place] [address] Psychiatry 07/09/17 Laura Mock MD, DMD [address] [address] [email or web address] [employer] Attributed Provider 09/01/21 07/03/23 Laura Mock MD, DMD [address] [address] [email or web address] Insurance Assigned Provider 05/31/23 03/01/24 Jakob Bob MD [address] [place] [address] [place] [address] [email or web address] Cardiology 08/22/23 Jose Cruz MD [address] [place] [address], [facility] 301 [place] [address] Cardiology 08/22/23 Laura Mock MD, DMD 1 [facility] [address] [place] [address] [email or web address] Attributed Provider 09/01/21 07/03/23 [facility] [phone]. Consulting Provider 08/22/23 [facility] Connect 12/24/23 03/11/24 Cyril Morales [address] [place] [address] Nurse Practitioner 02/27/24 documented as of this encounter Additional Source Comments The information contained in this document represents components of the legal health record. It is not the complete legal health record.[facility]
--- OUTSIDE RECORDS SUMMARY | 2024-12-28 16:32 | XMS_ITS | Encounter Summary ---
Author Organization [facility] Address [address] [place] [address] [place] [address] Phone Care Team Providers Care Letterer Name Role Phone Rina Swenson MD Unavailable Laura Mock MD, DMD Primary Car e Provider Laura Mock MD, DMD Unavailable Laura Mock MD, DMD Unavailable Jakob Bob MD Unavailable [phone] Jose Cruz MD Unavailable Laura Mock MD, DMD Unavailable Pcp, Unknown Primary Care Provider UnavailLaura Ascencio MD, DMD Primary Car e Provider Pcp, Unknown Primary Care Provider UnavailNicole Arguello MD Primary Care Provide r Laura Mock MD, DMD Primary Car e Provider Encounter Details Date Type Department Care Team (Late st Contact Info) Description 08/08/2022 Anti-coag visit [facility] Anticoagulation Clinic [address] [place] [address] [phone] Kenyatta [email or web address] Social History Tobacco Use Types [...] 01/05/2025 11:00 AM EST Pre-Admission Testing [address] 2nd [place] [address] Irineo Ruff MD [address] [place] [address] [email or web address] 01/10/2025 Procedure Pass [facility] Endoscopy Department [address] [place] [address] 01/10/2025 7:30 AM EST Hospital Encounter [facility] Endoscopy Department [address] [place] [address] Irineo Ruff MD [address] [place] [address] [email or web address] 01/10/2025 7:30 AM EST - 01/10/2025 8:15 AM EST Surgery [facility] Endoscopy Department [address] [place] [address] Irineo Ruff MD 75 [facility] [place] [address] [email or web address] [email or web address] 01/31/2025 1:00 PM EST Office Visit [facility] Cardiovascular Medicine 32 [facility], 5th Floor, [address] [place] [address] Karena Betancur MD 55 [facility] [address] [place] [address] FRANK@[email or web address] Scheduled Procedures Name Priority [...] documented as of this encounter Care Teams Letterer Relationship Specialty Start Date End Date Laura Mock MD, DMD [address] [address] [email or web address] so PCP - General Internal Medicine 06/04/21 11/11/23 Pcp, Unknown PCP - General 11/12/23 11/16/23 Laura Mock MD, DMD 1 [facility] [address] [place] [address] [email or web address] PCP - General Internal Medicine 11/17/23 12/28/23 Pcp, Unknown PCP - General 02/28/24 03/04/24 [place] [address] [address] PCP - General 03/05/24 05/17/24 Laura Mock MD, DMD [address] [address] [email or web address] PCP - General Internal Medicine 05/18/24 Rina Swenson MD Psychiatry 07/09/17 Laura Mock MD, DMD [address] [address] [email or web address] Partners Attributed Provider 09/01/21 07/03/23 Laura Mock MD, DMD [address] [address] [email or web address] du Insurance Assigned Provider 05/31/23 03/01/24 Jakob Bob MD [address] [place] [address] [place] [address] [email or web address] Cardiology 08/22/23 Jose Cruz MD [address] [place] [address], [address] [place] [address] Cardiology 08/22/23 Laura Mock MD, DMD [address] [address] [email or web address] Attributed Provider 09/01/21 07/03/23 [facility] [phone]. Consulting Provider 08/22/23 [facility] Connect 12/24/23 03/11/24 Cyril Morales [facility] [place] [address] Nurse Practitioner 02/27/24 documented as of this encounter Additional Source Comments The information contained in this document represents components of the legal health record. It is not the complete legal health record.[facility]
--- OUTSIDE RECORDS SUMMARY | 2024-12-28 16:32 | XMS_ITS | Encounter Summary ---
Author Organization [facility] Address [address] [facility] [address] [place] [address] Phone Care Team Providers Care Network Development Coordinator Name Role Phone Rina Swenson MD Unavailable Laura Mock MD, DMD Primary Car e Provider Laura Mock MD, DMD Unavailable Laura Mock MD, DMD Unavailable Jakob Bob MD Unavailable [phone] Jose Cruz MD Unavailable Laura Mock MD, DMD Unavailable Pcp, Unknown Primary Care Provider UnavailLaura Ascencio MD, DMD Primary Car e Provider Pcp, Unknown Primary Care Provider UnavailNicole Arguello MD Primary Care Provide r Laura Mock MD, DMD Primary Car e Provider Encounter Details Date Type Department Care Team (Late st Contact Info) Description 07/26/2022 Anti-coag visit [facility] Anticoagulation Clinic [address] [place], [place] [id number] Melvin Stewart, [facility] [address] [place] [address] [email or web address] Social History Tobacco Use Types Packs/Day [...] Pre-Admission Testing [facility] [address] [facility] 2nd [place] [address] Irineo Ruff MD [address] [place] [address] [place] [address] [email or web address] 01/10/2025 Procedure Pass [facility] Endoscopy Department [address] [place] [address] 01/10/2025 7:30 AM EST Hospital Encounter [facility] Endoscopy Department [address] [place] [address] Irineo Ruff MD [address] [place] [address] [place] [address] [email or web address] 01/10/2025 7:30 AM EST - 01/10/2025 8:15 AM EST Surgery [facility] Endoscopy Department [address] [place] [address] Irineo Ruff MD 75 [facility] [place] [address] [email or web address] COLONOSCOPY 01/31/2025 1:00 PM EST Office Visit [facility] Cardiovascular Medicine [address], 5th Floor, [address] [place] [address] Karena Betancur MD 55 [facility] 5[address] [place] [address] [email or web address] Scheduled Procedures Name [...] as of this encounter Care Teams Network Development Coordinator Relationship Specialty Start Date End Date Laura Mock MD, DMD 1 [facility] [address] [place] [address] [email or web address] PCP - General Internal Medicine 06/04/21 11/11/23 Pcp, Unknown PCP - General 11/12/23 11/16/23 Laura Mock MD, DMD 1 [facility] [address] [place] [address] [email or web address] du PCP - General Internal Medicine 11/17/23 12/28/23 Pcp, Unknown PCP - General 02/28/24 03/04/24 [place] [address] [place] [address] PCP - General 03/05/24 05/17/24 Laura Mock MD, DMD [address] [address] [email or web address] du PCP - General Internal Medicine 05/18/24 Rina Swenson MD Psychiatry 07/09/17 Laura Mock MD, DMD [address] [address] [email or web address] Partners Attributed Provider 09/01/21 07/03/23 Laura Mock MD, DMD [address] [address] [email or web address] du Insurance Assigned Provider 05/31/23 03/01/24 Jakob Bob MD [address] [place] [address] [place] [address] [email or web address] Cardiology 08/22/23 Jose Cruz MD [address] [place] [address], [facility] [address] [place] [address] Cardiology 08/22/23 Laura Mock MD, DMD 1 [facility] [address] [place] [address] [email or web address] Partners Attributed Provider 09/01/21 07/03/23 [facility] [phone]. Consulting Provider 08/22/23 [facility] Connect 12/24/23 03/11/24 Cyril Morales [facility]5 [place] [address] Nurse Practitioner 02/27/24 documented as of this encounter Additional Source Comments The information contained in this document represents components of the legal health record. It is not the complete legal health record.[facility]
--- OUTSIDE RECORDS SUMMARY | 2024-12-28 16:32 | XMS_ITS | Encounter Summary ---
Author Organization [facility] Address [facility] [employer] [facility] [address] [place] [address] Phone Care Team Providers Care Software Tester Name Role Phone Artie Meehan MD Primary Care Provider Artie Meehan MD Unavailable [phone] Rina Swenson MD Unavailable Laura Mock MD, DMD Primary Car e Provider Laura Mock MD, DMD Unavailable Laura Mock MD, DMD Unavailable Jakob Bob MD Unavailable Jose Cruz MD Unavailable [phone] Laura Mock MD, DMD Unavailable Pcp, Unknown Primary Care Provider UnavailLaura Ascencio MD, DMD Primary Car e Provider Pcp, Unknown Primary Care Provider UnavailNicole Arguello MD Primary Care Provide r Laura Mock MD, DMD Primary Car e Provider Encounter Details Date Type Department Care Team (Late st Contact Info) Description 09/06/2020 Procedure Pass [facility] [address] [place] [address] Social History Tobacco Use Types Packs/Day Years [...] 01/05/2025 11:00 AM EST Pre-Admission Testing [address] 2nd [place] [address] Irineo Ruff MD [address] [place] [address] [place] [address] [email or web address] 01/10/2025 Procedure Pass [facility] Endoscopy Department [address] [place] [address] 01/10/2025 7:30 AM EST Hospital Encounter [facility] Endoscopy Department [address] [place] [address] Irineo Ruff MD [address] [place] [address] [email or web address]@[email or web address] 01/10/2025 7:30 AM EST - 01/10/2025 8:15 AM EST Surgery [facility] Endoscopy Department [address] [place] [address] Irineo Ruff MD [address] [place] [address] [email or web address]@[email or web address] COLONOSCOPY 01/31/2025 1:00 PM EST Office Visit [facility] Cardiovascular Medicine [address] [place] [address], 5th Floor, [address] [place] [address] Karena Betancur MD [address] [facility] [address] [place] [address] [email or web address] Scheduled Procedures Name Priority Associated [...] as of this encounter Care Teams Software Tester Relationship Specialty Start Date End Date Artie Meehan MD [address] [place] [address] [place] [address] PCP - General Internal Medicine 10/26/17 06/03/21 Laura Mock MD, DMD [address] [address] [email or web address] PCP - General Internal Medicine 06/04/21 11/11/23 Pcp, Unknown PCP - General 11/12/23 11/16/23 Laura Mock MD, DMD [address] [address] [email or web address] PCP - General Internal Medicine 11/17/23 12/28/23 Pcp, Unknown PCP - General 02/28/24 03/04/24 [place] [address] [address] PCP - General 03/05/24 05/17/24 Laura Mock MD, DMD [address] [address] [email or web address] du PCP - General Internal Medicine 05/18/24 Artie Meehan MD [address] [place] [address] Dr Dior [facility][note 2] [place] [address] Internal Medicine 10/26/17 04/23/22 Rina Swenson MD [address] [place] [address] Dr Dior [facility][note 2] [place] [address] Psychiatry 07/09/17 Laura Mock MD, DMD [address] [address] [email or web address] du Partners Attributed Provider 09/01/21 07/03/23 Laura Mock MD, DMD [address] [address] [email or web address] du Insurance Assigned Provider 05/31/23 03/01/24 Jakob oBb MD [address] [place] [address] [address] [place] [address] [email or web address] Cardiology 08/22/23 Jose Cruz MD [address] [place] [address], [address] [place] [address] Cardiology 08/22/23 Laura Mock MD, DMD [address] [address] [email or web address] Partners Attributed Provider 09/01/21 07/03/23 [facility] [phone]. Consulting Provider 08/22/23 [facility] Connect 12/24/23 03/11/24 Cyril Morales [address] [place] [address] Nurse Practitioner 02/27/24 documented as of this encounter Additional Source Comments The information contained in this document represents components of the legal health record. It is not the complete legal health record.[facility]
--- OUTSIDE RECORDS SUMMARY | 2024-12-28 16:32 | XMS_ITS | Encounter Summary ---
Author Organization [facility] Address [address] [place] [address] [place] [address] Phone Care Team Providers Care Train Operator Name Role Phone Rina Swenson MD Unavailable Laura Mock MD, DMD Primary Car e Provider Laura Mock MD, DMD Unavailable Laura Mock MD, DMD Unavailable Jakob Bob MD Unavailable Jose Curz MD Unavailable Laura Mock MD, DMD Unavailable Pcp, Unknown Primary Care Provider UnavailLaura Ascencio MD, DMD Primary Car e Provider Pcp, Unknown Primary Care Provider UnavailNicole Arguello MD Primary Care Provide r Laura Mock MD, DMD Primary Car e Provider Encounter Details Date Type Department Care Team (Late st Contact Info) Description 12/10/2022 Anti-coag visit [facility] Cardiovascular Health [address] [place] [address] Catherine Hernández, PharmD [email or web address] Social History Tobacco Use Types Packs/Day Years [...] 01/05/2025 11:00 AM EST Pre-Admission Testing [address] 2nd [place] [address] Irineo Ruff MD [address] [place] [address] [email or web address]@[facility] 01/10/2025 Procedure Pass [facility] Endoscopy Department [address] [place] [address] 01/10/2025 7:30 AM EST Hospital Encounter [facility] Endoscopy Department [address] [place] [address] Irineo Ruff MD [address] [place] [address] [email or web address]@[facility] 01/10/2025 7:30 AM EST - 01/10/2025 8:15 AM EST Surgery [facility] Endoscopy Department [address] [place] [address] Irineo Ruff MD 75 [facility], [place] [address] [email or web address]@[facility] COLONOSCOPY 01/31/2025 1:00 PM EST Office Visit [facility] Cardiovascular Medicine 32 [facility], 5th Floor, [address] [place] [address] Karena Betancur MD 55 [facility] [address] [place] [address] [email or web address] Scheduled Procedures Name Priority Associated [...] documented as of this encounter Care Teams Train Operator Relationship Specialty Start Date End Date Laura Mock MD, DMD [address] [address] [email or web address] PCP - General Internal Medicine 06/04/21 11/11/23 Pcp, Unknown PCP - General 11/12/23 11/16/23 Laura Mock MD, DMD 1 [facility] 225 [place] [address] [email or web address] PCP - General Internal Medicine 11/17/23 12/28/23 Pcp, Unknown PCP - General 02/28/24 03/04/24 Nicole Newell MD [address] [place] [address] PCP - General 03/05/24 05/17/24 Laura Mock MD, DMD [address] [address] [email or web address] du PCP - General Internal Medicine 05/18/24 Rina Swenson MD Psychiatry 07/09/17 Laura Mock MD, DMD [address] [address] [email or web address] Partners Attributed Provider 09/01/21 07/03/23 Laura Mock MD, DMD [address] [address] [email or web address] du Insurance Assigned Provider 05/31/23 03/01/24 Jakob Bob MD [address] [place] [address] [place] [address] [email or web address] Cardiology 08/22/23 Jose Cruz MD [address] [place] [address] Cardiology 08/22/23 Laura Mock MD, DMD [address] [address] [email or web address] Partners Attributed Provider 09/01/21 07/03/23 [facility] [phone]. Consulting Provider 08/22/23 [facility] Connect 12/24/23 03/11/24 Cyril Morales [address] [place] [address] Nurse Practitioner 02/27/24 documented as of this encounter Additional Source Comments The information contained in this document represents components of the legal health record. It is not the complete legal health record.[facility]
--- OUTSIDE RECORDS SUMMARY | 2024-12-28 16:32 | XMS_ITS | Encounter Summary ---
Author Organization [facility] Address [address] [place] [address] Phone Care Team Providers Care Gift Shop Clerk Name Role Phone Rina Swenson MD [...] st Contact Info) Description 08/26/2023 Procedure Pass [facility] Endoscopy Department [address] [place] [place] [address] Social History Tobacco Use Types Packs/Day [...] 01/05/2025 11:00 AM EST Pre-Admission Testing [address] 2nd [place] [address] Irineo Ruff MD [address] [place] [address] [email or web address]@[facility] 01/10/2025 Procedure Pass [facility] Endoscopy Department [address] [place] [place] [address] 01/10/2025 7:30 AM EST Hospital Encounter [facility] Endoscopy Department [address] [place] [place] [address] Irineo Ruff MD [address] [place] [address] [email or web address]@[facility] 01/10/2025 7:30 AM EST - 01/10/2025 8:15 AM EST Surgery [facility] Endoscopy Department [address] [place] [address] Irineo Ruff MD [address] [place] [address] WALI@[facility] COLONOSCOPY 01/31/2025 1:00 PM EST Office Visit [facility] Cardiovascular Medicine [address] [place] [address], 5th Floor, [address] [place] [address] Karena Betancur MD 55 [facility] [address] [place] [address] [email or web address] Scheduled Procedures Name Priority Associated Diagnoses Date/Ti [...] as of this encounter Care Teams Gift Shop Clerk Relationship Specialty Start Date End Date Laura Mock MD, DMD 1 [facility] [address] [place] [address] [email or web address] du PCP - General Internal Medicine 06/04/21 11/11/23 Pcp, Unknown PCP - General 11/12/23 11/16/23 Laura Mock MD, DMD 1 [facility] 225 [place] [address] [email or web address] PCP - General Internal Medicine 11/17/23 12/28/23 Pcp, Unknown PCP - General 02/28/24 03/04/24 Nicole Newell MD [address] [place] [address] PCP - General 03/05/24 05/17/24 Laura Mock MD, DMD 1 [facility] [address] [place] [address] [email or web address] PCP - General Internal Medicine 05/18/24 Rina Swenson MD Psychiatry 07/09/17 Laura Mock MD, DMD [address] [address] [email or web address] Insurance Assigned Provider 05/31/23 03/01/24 Jakob Bob MD [address] [place] [address] [email or web address] Cardiology 08/22/23 Jose Cruz MD [address] [place] [address], [facility] [address] [place] [address] [email or web address] Cardiology 08/22/23 [facility] [phone]. Consulting Provider 08/22/23 [facility] Connect 12/24/23 03/11/24 Cyril Morales [address] [place] [address] Nurse Practitioner 02/27/24 documented as of this encounter Additional Source Comments The information contained in this document represents components of the legal health record. It is not the complete legal health record.[facility]
--- OUTSIDE RECORDS SUMMARY | 2024-12-28 16:32 | XMS_ITS | Encounter Summary ---
Author Organization [facility] Address [facility] [place] [address] [address] Phone Care Team Providers Care Ice Cream Server Name Role Phone Artie Meehan MD Unavailable Rina Swenson MD Unavailable Laura Mock MD, DMD Primary Car e Provider Laura Mock MD, DMD Unavailable Laura Mock MD, DMD Unavailable Jakob Bob MD Unavailable [phone] Jose Cruz MD Unavailable Laura Mock MD, [...] Description 01/05/2025 11:00 AM EST Pre-Admission Testing [facility] 45 [facility] 2nd [place] [address] Irineo Ruff MD [address] [place] [address] [email or web address] 01/10/2025 Procedure Pass [facility] Endoscopy Department [address] [place] [address] 01/10/2025 7:30 AM EST Hospital Encounter [facility] Endoscopy Department [address] [place] [address] Irineo Ruff MD [address] [place] [address] [email or web address]@[facility] 01/10/2025 7:30 AM EST - 01/10/2025 8:15 AM EST Surgery [facility] Endoscopy Department [address] [place] [address] Irineo Ruff MD [address] [place] [address] [email or web address]@[facility] COLONOSCOPY 01/31/2025 1:00 PM EST Office Visit [facility] Cardiovascular Medicine 32 [facility], 5th Floor, [address] [place] [address] Karena Betancur MD [address] [address] [email or web address] Scheduled Procedures Name Priority Associated [...] of this encounter Care Teams Ice Cream Server Relationship Specialty Start Date End Date Laura Mock MD, DMD [address] [place] [address] [email or web address] PCP - General Internal Medicine 06/04/21 11/11/23 Pcp, Unknown PCP - General 11/12/23 11/16/23 Laura Mock MD, DMD [address] [place] [address] [email or web address] PCP - General Internal Medicine 11/17/23 12/28/23 Pcp, Unknown PCP - General 02/28/24 03/04/24 Nicole Newell MD [address] [place] [address] PCP - General 03/05/24 05/17/24 Laura Mock MD, DMD 1 [address] [place] [address] [email or web address] PCP - General Internal Medicine 05/18/24 Artie Meehan MD [address] [place] [address] Dr [place] [address] Internal Medicine 10/26/17 04/23/22 Rina Swenson MD [address] [place] [address] [place] [address] Psychiatry 07/09/17 Laura Mock MD, DMD [address] [address] [email or web address] Attributed Provider 09/01/21 07/03/23 Laura Mock MD, DMD [address] [address] [email or web address] Insurance Assigned Provider 05/31/23 03/01/24 Jakob Bob MD [address] [place] [address] [email or web address] Cardiology 08/22/23 Jose Cruz MD [address] [place] [address] Cardiology 08/22/23 Laura Mock MD, DMD [address] [address] [email or web address] Partners Attributed Provider 09/01/21 07/03/23 [facility] [phone]. Consulting Provider 08/22/23 CAROLANN GREWAL Connect 12/24/23 03/11/24 Cyril Morales [address] [place] [address] Nurse Practitioner 02/27/24 documented as of this encounter Additional Source Comments The information contained in this document represents components of the legal health record. It is not the complete legal health record.[facility]
--- OUTSIDE RECORDS SUMMARY | 2024-12-28 16:32 | XMS_ITS | Encounter Summary ---
Author Organization [facility] Address [address] [place] [address] [place] [address] Phone Care Team Providers Care Scratch Brusher Name Role Phone Rina Swenson MD Unavailable Laura Mock MD, DMD Primary Car e Provider Laura Mock MD, DMD Unavailable Laura Mock MD, DMD Unavailable Jakob Bob MD Unavailable [phone] Jose Cruz MD Unavailable [phone] Laura Mock MD, DMD Unavailable Pcp, Unknown Primary Care Provider UnavailLaura Ascencio MD, DMD Primary Car e Provider Pcp, Unknown Primary Care Provider UnavailNicole Arguello MD Primary Care Provide r Laura Mock MD, DMD Primary Car e Provider Encounter Details Date Type Department Care Team (Late st Contact Info) Description 07/18/2022 Anti-coag visit [facility] Anticoagulation Clinic [address] [place] [phone] Kenyatta [email or web address] Social History Tobacco Use Types Packs/Day [...] 01/05/2025 11:00 AM EST Pre-Admission Testing [address] 2nd [place] [address] Irineo Ruff MD [address] [place] [address] [email or web address]@[email or web address] 01/10/2025 Procedure Pass [facility] Endoscopy Department [address] [place] [address] 01/10/2025 7:30 AM EST Hospital Encounter [facility] Endoscopy Department [address] [place] [address] Irineo Ruff MD [address] [place] [address] [email or web address]@[facility] 01/10/2025 7:30 AM EST - 01/10/2025 8:15 AM EST Surgery [facility] Endoscopy Department [address] [place] [address] Irineo Ruff MD 75 [facility] [place] [address] [email or web address]@[email or web address] COLONOSCOPY 01/31/2025 1:00 PM EST Office Visit [facility] Cardiovascular Medicine 32 [facility], 5th Floor, [address] [place] [address] Karena Betancur MD 55 [facility] [address] [place] [address] [email or web address] Scheduled Procedures Name [...] documented as of this encounter Care Teams Scratch Brusher Relationship Specialty Start Date End Date Laura Mock MD, DMD [address] [address] [email or web address] PCP - General Internal Medicine 06/04/21 11/11/23 Pcp, Unknown PCP - General 11/12/23 11/16/23 Laura Mock MD, DMD 1 [facility] [address] [place] [address] [email or web address] PCP - General Internal Medicine 11/17/23 12/28/23 Pcp, Unknown PCP - General 02/28/24 03/04/24 [place] [address] [address] PCP - General 03/05/24 05/17/24 Laura Mock MD, DMD [address] [address] [email or web address] PCP - General Internal Medicine 05/18/24 Rina Swenson MD Psychiatry 07/09/17 Laura Mock MD, DMD [address] [address] [email or web address] Partners Attributed Provider 09/01/21 07/03/23 Laura Mock MD, DMD [address] [address] [email or web address] Insurance Assigned Provider 05/31/23 03/01/24 Jakob Bob MD [address] [place] [address] [place] [address] [email or web address] Cardiology 08/22/23 Jose Cruz MD [address] [place] [address], [address] [place] [address] Cardiology 08/22/23 Laura Mock MD, DMD [address] [address] [email or web address] Attributed Provider 09/01/21 07/03/23 [facility] [phone]. Consulting Provider 08/22/23 [facility] Connect 12/24/23 03/11/24 Cyril Morales [facility] [place] [address] Nurse Practitioner 02/27/24 documented as of this encounter Additional Source Comments The information contained in this document represents components of the legal health record. It is not the complete legal health record.[facility]
--- OUTSIDE RECORDS SUMMARY | 2024-12-28 16:32 | XMS_ITS | Encounter Summary ---
Author Organization [facility] Address On license of [facility] C3 [facility] [address] [place] [address] Phone Care Team Providers Care Insulation Cutter Name Role Phone Artie Meehan MD Unavailable Rina Swenson MD Unavailable Laura Mock MD, DMD Primary Car e Provider Laura Mock MD, DMD Unavailable Laura Mock MD, DMD Unavailable Jakob Bob MD Unavailable [phone] Jose Cruz MD Unavailable Laura Mock MD, DMD Unavailable Pcp, Unknown Primary Care Provider UnavailLaura Ascencio MD, DMD Primary Car e Provider Pcp, Unknown Primary Care Provider UnavailNicole Arguello MD Primary Care Provide r Laura Mock MD, DMD Primary Car e Provider Encounter Details Date Type Department Care Team (Late st Contact Info) Description 08/07/2021 Anti-coag visit [facility] Anticoagulation Clinic [address] [place] [address] Kenyatta Gamez, PharmD [email or web address] Social History Tobacco Use Types Packs/Day [...] 01/05/2025 11:00 AM EST Pre-Admission Testing [address] 2nd [place] [address] Irineo Ruff MD [address] [place] [address] [place] [address] [email or web address] 01/10/2025 Procedure Pass [facility] Endoscopy Department [address] [place] [address] 01/10/2025 7:30 AM EST Hospital Encounter [facility] Endoscopy Department [address] [place] [address] Irineo Ruff MD [address] [place] [address] [email or web address] 01/10/2025 7:30 AM EST - 01/10/2025 8:15 AM EST Surgery [facility] Endoscopy Department [address] [place] [address] Irineo Ruff MD [address] [place] [address] [email or web address] COLONOSCOPY 01/31/2025 1:00 PM EST Office Visit [facility] Cardiovascular Medicine [address] [place] [address], 5th Floor, [address] [place] [address] Karena Betancur MD [address] [place] [address] [email or web address] Scheduled Procedures Name Priority Associated Diagnoses [...] as of this encounter Care Teams Insulation Cutter Relationship Specialty Start Date End Date Laura Mock MD, DMD 1 [facility] [address] [place] [address] [email or web address] du PCP - General Internal Medicine 06/04/21 11/11/23 Pcp, Unknown PCP - General 11/12/23 11/16/23 Laura Mock MD, DMD 1 [facility] [address] [place] [address] [email or web address] du PCP - General Internal Medicine 11/17/23 12/28/23 Pcp, Unknown PCP - General 02/28/24 03/04/24 [place] [address] [address] PCP - General 03/05/24 05/17/24 Laura Mock MD, DMD [address] [address] [email or web address] du PCP - General Internal Medicine 05/18/24 Artie Meehan MD [address] [place] [address] Dr [address] [place] [address] Internal Medicine 10/26/17 04/23/22 Rina Swenson MD [address] [place] [address] [place] [address] Psychiatry 07/09/17 Laura Mock MD, DMD [address] [address] [email or web address] du Partners Attributed Provider 09/01/21 07/03/23 Laura Mock MD, DMD [address] [address] [email or web address] Insurance Assigned Provider 05/31/23 03/01/24 Jakob Bob MD [address] [place] [address] [email or web address] Cardiology 08/22/23 Jose Cruz MD [address] [place] [address] Cardiology 08/22/23 Laura Mock MD, DMD [address] [address] [email or web address] Partners Attributed Provider 09/01/21 07/03/23 [facility] [phone]. Consulting Provider 08/22/23 [facility] Connect 12/24/23 03/11/24 Cyril Morales [address] [place] [address] Nurse Practitioner 02/27/24 documented as of this encounter Additional Source Comments The information contained in this document represents components of the legal health record. It is not the complete legal health record.[facility]
--- OUTSIDE RECORDS SUMMARY | 2024-12-28 16:32 | XMS_ITS | Encounter Summary ---
Author Organization [facility] Address [facility] [employer] [address] [address] Phone Care Team Providers Care Proposal Lead Writer Name Role Phone Rina Swenson MD Unavailable [...] 01/05/2025 11:00 AM EST Pre-Admission Testing [address] [address] Irineo Ruff MD [address] [place] [address] [email or web address] 01/10/2025 Procedure Pass [facility] Endoscopy Department [address] [place] [address] 01/10/2025 7:30 AM EST Hospital Encounter [facility] Endoscopy Department [address] [place] [address] Irineo Ruff MD [address] [place] [address] [email or web address] 01/10/2025 7:30 AM EST - 01/10/2025 8:15 AM EST Surgery [facility] Endoscopy Department [address] [place] [address] Irineo Ruff MD [address] [place] [address] [email or web address] [email or web address] 01/31/2025 1:00 PM EST Office Visit [facility] Cardiovascular Medicine [address] [facility], 5th Floor, [address] [place] [address] Karena Betancur MD [address] [facility] [address] [place] [address] FRANK@[email or web address] Scheduled Procedures Name [...] documented as of this encounter Care Teams Proposal Lead Writer Relationship Specialty Start Date End Date Laura Mock MD, DMD [address] [address] [email or web address] du PCP - General Internal Medicine 06/04/21 11/11/23 Pcp, Unknown PCP - General 11/12/23 11/16/23 Laura Mock MD, DMD [address] [address] [email or web address] PCP - General Internal Medicine 11/17/23 12/28/23 Pcp, Unknown PCP - General 02/28/24 03/04/24 Nicole Newell MD [address] [place] [address] [id number] PCP - General 03/05/24 05/17/24 Laura Mock MD, DMD [address] [address] [email or web address] du PCP - General Internal Medicine 05/18/24 Rina Swenson MD Psychiatry 07/09/17 Laura Mock MD, DMD [address] [address] [email or web address] Partners Attributed Provider 09/01/21 07/03/23 Laura Mock MD, DMD [address] [address] [email or web address] du Insurance Assigned Provider 05/31/23 03/01/24 Jakob Bob MD [address] [facility] [place] [address] [email or web address] Cardiology 08/22/23 Jose Cruz MD [address] [place] [address] Cardiology 08/22/23 Laura Mock MD, DMD [address] [address] [email or web address] du Partners Attributed Provider 09/01/21 07/03/23 [facility] [phone]. Consulting Provider 08/22/23 [facility] Connect 12/24/23 03/11/24 Cyril Morales [address] [place] [address] Nurse Practitioner 02/27/24 documented as of this encounter Additional Source Comments The information contained in this document represents components of the legal health record. It is not the complete legal health record.[facility]
--- OUTSIDE RECORDS SUMMARY | 2024-12-28 16:32 | XMS_ITS | Encounter Summary ---
Author Organization [facility] Address [facility] [employer] [facility] [address] [place] [address] Phone Care Team Providers Care Atmospheric Drier Tender Name Role Phone Rina Swenson MD [...] Info) Description 10/07/2022 Procedure Pass [facility] [place] [id number] Social History Tobacco Use Types Packs/Day Years [...] 01/05/2025 11:00 AM EST Pre-Admission Testing [address] [address] Irineo Ruff MD [address] [place] [address] [email or web address] 01/10/[address] [facility] Endoscopy Department [address] [place] [address] 01/10/2025 7:30 AM EST Hospital Encounter [facility] Endoscopy Department [address] [place] [address] Irineo Ruff MD [address] [place] [address] [email or web address] 01/10/2025 7:30 AM EST - 01/10/2025 8:[address] [facility] Endoscopy Department [address] [place] [address] Irineo Ruff MD [address] [place] [address] WALI@[email or web address] COLONOSCOPY 01/31/2025 1:00 PM EST Office Visit [facility] Cardiovascular Medicine [address] [facility], 5th Floor, [address] [place] [address] Karena Betancur MD 55 [facility] [address] [place] [address] [email or web address] Scheduled Procedures Name [...] documented as of this encounter Care Teams Atmospheric Drier Tender Relationship Specialty Start Date End Date Laura Mock MD, DMD [address] [address] [email or web address] PCP - General Internal Medicine 06/04/21 11/11/23 Pcp, Unknown PCP - General 11/12/23 11/16/23 Laura Mock MD, DMD [address] [address] [email or web address] PCP - General Internal Medicine 11/17/23 12/28/23 Pcp, Unknown PCP - General 02/28/24 03/04/24 [place] [address] [place] [address] PCP - General 03/05/24 05/17/24 Laura Mock MD, DMD 1 [facility] [address] [place] [address] [email or web address] PCP - General Internal Medicine 05/18/24 Rina Swenson MD Psychiatry 07/09/17 Laura Mock MD, DMD [address] [address] [email or web address] Attributed Provider 09/01/21 07/03/23 Laura Mock MD, DMD [address] [address] [email or web address] Insurance Assigned Provider 05/31/23 03/01/24 Jakob Bob MD 75 [facility] [place] [address] [email or web address] Cardiology 08/22/23 Jose Cruz MD [address] [place] [address], [address] [place] [address] Cardiology 08/22/23 Laura Mock MD, DMD [address] [address] [email or web address] Partners Attributed Provider 09/01/21 07/03/23 [facility] [phone]. Consulting Provider 08/22/23 [facility] Connect 12/24/23 03/11/24 Cyril Morales [facility] [place] [address] Nurse Practitioner 02/27/24 documented as of this encounter Additional Source Comments The information contained in this document represents components of the legal health record. It is not the complete legal health record.[facility]
--- OUTSIDE RECORDS SUMMARY | 2024-12-28 16:32 | XMS_ITS | Encounter Summary ---
Author Organization [facility] Address [facility] [employer] [address] [address] Phone Care Team Providers Care Laboratory Helper Name Role Phone Artie Meehan MD Unavailable Rina Swenson MD Unavailable [phone] Laura Mock MD, DMD Primary Car e Provider Laura Mock MD, DMD Unavailable Laura Mock MD, DMD Unavailable Jakob Bob MD Unavailable Jose Cruz MD Unavailable [phone] Laura Mock MD, DMD Unavailable Pcp, Unknown Primary Care Provider UnavailLaura Ascencio MD, DMD Primary Car e Provider Pcp, Unknown Primary Care Provider UnavailNicole Arguello MD Primary Care Provide r Laura Mock MD, DMD Primary Car e Provider Encounter Details Date Type Department Care Team (Late st Contact Info) Description 09/28/2021 Telephone [facility] Psychiatric Specialties at [address] [place] [address] Tamara Walton, YOLIE [address] [facility] [place] [address] [email or web address] Social History Tobacco Use Types Packs/Day Years [...] 01/05/2025 11:00 AM EST Pre-Admission Testing [address]nd [place] [address] Irineo Ruff MD [address] [place] [address] [place] [address] [email or web address] 01/10/2025 Procedure Pass [facility] Endoscopy Department [address] [place] [address] 01/10/2025 7:30 AM EST Hospital Encounter [facility] Endoscopy Department [address] [place] [address] Irineo Ruff MD [address] [place] [address] [place] [address] [email or web address] 01/10/2025 7:30 AM EST - 01/10/2025 8:15 AM EST Surgery [facility] Endoscopy Department [address] [place] [address] Irineo Ruff MD [address] [place] [address] [place] [address] [email or web address] COLONOSCOPY 01/31/2025 1:00 PM EST Office Visit [facility] Cardiovascular Medicine [address] [place] [address], 5th Floor, [address] [place] [address] Karena Betancur MD [address] [facility] [address] [place] [address] [email or web address] Scheduled Procedures Name Priority [...] documented as of this encounter Care Teams Laboratory Helper Relationship Specialty Start Date End Date Laura Mock MD, DMD 1 [employer] [address] [place] [address] [email or web address] PCP - General Internal Medicine 06/04/21 11/11/23 Pcp, Unknown PCP - General 11/12/23 11/16/23 Laura Mock MD, DMD 1 [facility] [address] [place] [address] [email or web address] PCP - General Internal Medicine 11/17/23 12/28/23 Pcp, Unknown PCP - General 02/28/24 03/04/24 [place] [address] [address] PCP - General 03/05/24 05/17/24 Laura Mock MD, DMD [address] [address] [email or web address] PCP - General Internal Medicine 05/18/24 Artie Meehan MD [address] [place] [address] Dr Dior Elisabeth [facility] [place] [address] Internal Medicine 10/26/17 04/23/22 Rina Swenson MD [address] [place] [address] [place] [address] Psychiatry 07/09/17 Laura Mock MD, DMD [address] [address] [email or web address] Partners Attributed Provider 09/01/21 07/03/23 Laura Mock MD, DMD [address] [address] [email or web address] Insurance Assigned Provider 05/31/23 03/01/24 Jakob Bob MD [address] [place] [address] [place] [address] [email or web address] Cardiology 08/22/23 Jose Curz MD [address] [place] [address] Cardiology 08/22/23 Laura Mock MD, DMD [address] [address] [email or web address] Attributed Provider 09/01/21 07/03/23 [facility] [phone]. Consulting Provider 08/22/23 [facility] Connect 12/24/23 03/11/24 Cyril Morales [facility] [place] [address] Nurse Practitioner 02/27/24 documented as of this encounter Additional Source Comments The information contained in this document represents components of the legal health record. It is not the complete legal health record.[facility]
--- OUTSIDE RECORDS SUMMARY | 2024-12-28 16:32 | XMS_ITS | Encounter Summary ---
Author Organization [facility] Address [facility] [employer] [facility] [address] [place] [address] Phone Care Team Providers Care Unit Manager [employer] Name Role Phone Artie Meehan MD Unavailable Rina Swneson MD Unavailable Laura Mock MD, DMD Primary Car e Provider Laura Mock MD, DMD Unavailable Laura Mock MD, DMD Unavailable Jakob Bob MD Unavailable Jose Cruz MD Unavailable [phone] Laura Mock MD, DMD Unavailable Pcp, Unknown Primary Care Provider UnavailLaura Ascencio MD, DMD Primary Car e Provider Pcp, Unknown Primary Care Provider UnavailNicole Arguello MD Primary Care Provide r Laura Mock MD, DMD Primary Car e Provider Encounter Details Date Type Department Care Team (Late st Contact Info) Description 09/07/2021 Anti-coag visit [facility] Anticoagulation Clinic [address] [place] [address] Kenyatta Gamez, PharmD [email or web address] Social History Tobacco Use Types Packs/Day [...] 01/05/2025 11:00 AM EST Pre-Admission Testing [address] 2nd [place] [address] Irineo Ruff MD [address] [place] [address] [place] [address] [email or web address] 01/10/2025 Procedure Pass [facility] Endoscopy Department [address] [place] [place] [address] 01/10/2025 7:30 AM EST Hospital Encounter [facility] Endoscopy Department [address] [place] [place] [address] Irineo Ruff MD [address] [place] [address] [email or web address] 01/10/2025 7:30 AM EST - 01/10/2025 8:15 AM EST Surgery [facility] Endoscopy Department [address] [place] [place] [address] Irineo Ruff MD [address] [place] [address] WALI@[facility] COLONOSCOPY 01/31/2025 1:00 PM EST Office [place] [facility] Cardiovascular Medicine [address] [place] [address], 5th Floor, [address] [place] [address] Karena Betancur MD [address] [place] [address] [email or web address] Scheduled Procedures Name Priority Associated Diagnoses [...] documented as of this encounter Care Teams Unit Manager [employer] Relationship Specialty Start Date End Date Laura Mock MD, DMD 1 [facility] 225 [place] [address] [email or web address] du PCP - General Internal Medicine 06/04/21 11/11/23 Pcp, Unknown PCP - General 11/12/23 11/16/23 Laura Mock MD, DMD 1 [facility] 225 [place] [address] [email or web address] du PCP - General Internal Medicine 11/17/23 12/28/23 Pcp, Unknown PCP - General 02/28/24 03/04/24 [place] [address] [address] PCP - General 03/05/24 05/17/24 Laura Mock MD, DMD [address] [address] [email or web address] du PCP - General Internal Medicine 05/18/24 Artie Meehan MD [address] [place] [address] Dr [address] [place] [address] Internal Medicine 10/26/17 04/23/22 Rina Swenson MD [address] [place] [address] [place] [address] Psychiatry 07/09/17 Laura Mock MD, DMD [address] [address] [email or web address] Partners Attributed Provider 09/01/21 07/03/23 Laura Mock MD, DMD [address] [address] [email or web address] Insurance Assigned Provider 05/31/23 03/01/24 Jakob Bob MD [address] [place] [address] [email or web address] Cardiology 08/22/23 Jose Cruz MD [address] [place] [address] Cardiology 08/22/23 Laura Mock MD, DMD [address] [address] [email or web address] Attributed Provider 09/01/21 07/03/23 [facility] [phone]. Consulting Provider 08/22/23 [facility] Connect 12/24/23 03/11/24 Cyril Morales [address] [place] [address] Nurse Practitioner 02/27/24 documented as of this encounter Additional Source Comments The information contained in this document represents components of the legal health record. It is not the complete legal health record.[facility]
--- OUTSIDE RECORDS SUMMARY | 2024-12-28 16:32 | XMS_ITS | Encounter Summary ---
Author Organization [facility] Address [facility] [employer] [address] [address] Phone Care Team Providers Care [place] Name Role Phone Rina Swenson MD Unavailable Laura Mock MD, DMD Primary Car e Provider Laura Mock MD, DMD Unavailable Laura Mock MD, DMD Unavailable Jakob Bob MD Unavailable [phone] Jose Cruz MD Unavailable [phone] Laura Mock MD, DMD Unavailable Pcp, Unknown Primary Care Provider UnavailLaura Ascencio MD, DMD Primary Car e Provider Pcp, Unknown Primary Care Provider UnavailNicole Arguello MD Primary Care Provide r Laura Mock MD, DMD Primary Car e Provider Encounter Details Date Type Department Care Team (Late st Contact Info) Description 12/25/2022 Transcribe Orders [facility] Department [address] [place] [address] Laura Mock MD, DMD 1 [facility] [address] [place] [address] [email or web address] Breast screening (Primary Dx) Social [...] EST Pre-Admission Testing [facility] 45 [facility] 2nd [place] [address] Irineo Ruff MD [address] [place] [address] [email or web address] 01/10/2025 Procedure Pass [facility] Endoscopy Department [address] [place] [address] 01/10/2025 7:30 AM EST Hospital Encounter [facility] Endoscopy Department [address] [place] [address] Irineo Ruff MD [address] [place] [address] [place] [address] [email or web address]@[facility] 01/10/2025 7:30 AM EST - 01/10/2025 8:15 AM EST Surgery [facility] Endoscopy Department [address] [place] [address] Irineo Ruff MD 75 [facility] [place] [address] WALI@[facility] COLONOSCOPY 01/31/2025 1:00 PM EST Office [place] [facility] [place] Medicine 32 [facility], 5th Floor, [address] [place] [address] Karena Betancur MD 55 [facility] [address] [place] [address] FRANK@[email or web address] Scheduled Procedures Name [...] documented as of this encounter Care Teams [place] Relationship Specialty Start Date End Date Laura Mock MD, DMD [address] [address] [email or web address] du PCP - General Internal Medicine 06/04/21 11/11/23 Pcp, Unknown PCP - General 11/12/23 11/16/23 Laura Mock MD, DMD [address] [address] [email or web address] PCP - General Internal Medicine 11/17/23 12/28/23 Pcp, Unknown PCP - General 02/28/24 03/04/24 [place] [address] [place] [address] PCP - General 03/05/24 05/17/24 Laura Mock MD, DMD [address] [address] [email or web address] du PCP - General Internal Medicine 05/18/24 Rina Swenson MD Psychiatry 07/09/17 Laura Mock MD, DMD [address] [address] [email or web address] Partners Attributed Provider 09/01/21 07/03/23 Laura Mock MD, DMD [address] [address] [email or web address] Insurance Assigned Provider 05/31/23 03/01/24 Jakob Bob MD [address] [place] [address] [email or web address] Cardiology 08/22/23 Jose Cruz MD [address] [place] [address] Cardiology 08/22/23 Laura Mock MD, DMD [address] [address] [email or web address] [employer] Attributed Provider 09/01/21 07/03/23 [facility] [phone]. Consulting Provider 08/22/23 [facility] Connect 12/24/23 03/11/24 Cyril Morales [address] [place] [address] Nurse Practitioner 02/27/24 documented as of this encounter Additional Source Comments The information contained in this document represents components of the legal health record. It is not the complete legal health record.[facility]
--- OUTSIDE RECORDS SUMMARY | 2024-12-28 16:32 | XMS_ITS | Encounter Summary ---
Author Organization [facility] Address [address] [place] [address] Phone Care Team Providers Care Record Librarian Name Role Phone Artie Meehan MD [...] Mengyan, PharmD [address] [place] [address] [email or web address] Social History Tobacco Use Types [...] Description 01/05/2025 11:00 AM EST Pre-Admission Testing [address] [address] Irineo Ruff MD [address] [place] [address] [place] [address] [email or web address] 01/10/2025 Procedure Pass [facility] Endoscopy Department [address] [place] [address] 01/10/2025 7:30 AM EST Hospital Encounter [facility] Endoscopy Department [address] [place] [address] Irineo Ruff MD [address] [place] [address] [place] [address] [email or web address] 01/10/2025 7:30 AM EST - 01/10/2025 8:15 AM EST Surgery [facility] Endoscopy Department [address] [place] [address] Irineo Ruff MD [address] [place] [address] [email or web address] COLONOSCOPY 01/31/2025 1:00 PM EST Office Visit [facility] Cardiovascular Medicine [address] [place] [address], 5th Floor, [address] [place] [address] Karena Betancur MD 55 [facility] [address] [place] [address] [email or web address] Scheduled Procedures [...] documented as of this encounter Care Teams Record Librarian Relationship Specialty Start Date End Date Laura Mock MD, DMD [address] [address] [email or web address] PCP - General Internal Medicine 06/04/21 11/11/23 Pcp, Unknown PCP - General 11/12/23 11/16/23 Laura Mock MD, DMD [address] [address] [email or web address] du PCP - General Internal Medicine 11/17/23 12/28/23 Pcp, Unknown PCP - General 02/28/24 03/04/24 [place] [address] [address] PCP - General 03/05/24 05/17/24 Laura Mock MD, DMD [address] [address] [email or web address] du PCP - General Internal Medicine 05/18/24 Artie Meehan MD [address] [place] [address] [place] [address] Internal Medicine 10/26/17 04/23/22 Rina Swenson MD [address] [place] [address] [place] [address] Psychiatry 07/09/17 Laura Mock MD, DMD [address] [address] [email or web address]. du Partners Attributed Provider 09/01/21 07/03/23 Laura Mock MD, DMD [address] [address] [email or web address]. du Insurance Assigned Provider 05/31/23 03/01/24 Jakob Bob MD [address] [place] [address] [email or web address] Cardiology 08/22/23 Jose Cruz MD [address] [place] [address] Cardiology 08/22/23 Laura Mock MD, DMD [address] [address] [email or web address] Partners Attributed Provider 09/01/21 07/03/23 [facility] [phone]. Consulting Provider 08/22/23 [facility] Connect 12/24/23 03/11/24 Cyril Morales [address] [place] [address] Nurse Practitioner 02/27/24 documented as of this encounter Additional Source Comments The information contained in this document represents components of the legal health record. It is not the complete legal health record.[facility]
--- OUTSIDE RECORDS SUMMARY | 2024-12-28 16:32 | XMS_ITS | Encounter Summary ---
Author Organization [facility] Address [facility] [employer] [address] [address] Phone Care Team Providers Care Entry Analyst Name Role Phone Artie Meehan MD Unavailable Rina Swenson MD Unavailable Laura Mock MD, DMD Primary Car e Provider Laura Mock MD, DMD Unavailable Laura Mock MD, DMD Unavailable Jakob Bbo MD Unavailable Jose Cruz MD Unavailable Laura Mock MD, DMD Unavailable Pcp, Unknown Primary Care Provider UnavailLaura Ascencio MD, DMD Primary Car e Provider Pcp, Unknown Primary Care Provider UnavailNicole Arguello MD Primary Care Provide r Laura Mock MD, DMD Primary Car e Provider Encounter Details Date Type Department Care Team (Late st Contact Info) Description 09/17/2021 Anti-coag visit [facility] Cardiovascular [address] [address] Catherine Hernández, UniqueD [email or web address] Social History Tobacco Use Types Packs/Day Years [...] 01/05/2025 11:00 AM EST Pre-Admission Testing [address] 2nd [place] [address] Irineo Ruff MD [address] [place] [address] [email or web address] 01/10/2025 Procedure Pass [facility] Endoscopy Department [address] [place] [address] 01/10/2025 7:30 AM EST Hospital Encounter [facility] Endoscopy Department [address] [place] [address] Irineo Ruff MD [address] [place] [address] [place] [address] [email or web address] 01/10/2025 7:30 AM EST - 01/10/2025 8:15 AM EST Surgery [facility] Endoscopy Department [address] [place] [address] Irineo Ruff MD [address] [place] [address] [email or web address] COLONOSCOPY 01/31/2025 1:00 PM EST Office Visit [facility] Cardiovascular Medicine [address] [place] [address], 5th Floor, [address] [place] [address] Karena Betancur MD [address] [place] [address] [email or web address] Scheduled Procedures Name Priority [...] documented as of this encounter Care Teams Entry Analyst Relationship Specialty Start Date End Date Laura Mock MD, DMD [address] [address] [email or web address] PCP - General Internal Medicine 06/04/21 11/11/23 Pcp, Unknown PCP - General 11/12/23 11/16/23 Laura Mock MD, DMD [address] [address] [email or web address] PCP - General Internal Medicine 11/17/23 12/28/23 Pcp, Unknown PCP - General 02/28/24 03/04/24 [place] [address] [address] PCP - General 03/05/24 05/17/24 Laura Mock MD, DMD 1 [facility] [address] [place] [address] [email or web address] du PCP - General Internal Medicine 05/18/24 Artie Meehan MD [address] [place] [address] Dr [address] [place] [address] Internal Medicine 10/26/17 04/23/22 Rina Swenson MD [address] [place] [address] Dr [address] [place] [address] Psychiatry 07/09/17 Laura Mock MD, DMD [address] [address] [email or web address] du Partners Attributed Provider 09/01/21 07/03/23 Laura Mock MD, DMD [address] [address] [email or web address] du Insurance Assigned Provider 05/31/23 03/01/24 Jakob Bob MD [address] [place] [address] [place] [address] [email or web address] Cardiology 08/22/23 Jose Cruz MD [address] [place] [address] Cardiology 08/22/23 Laura Mock MD, DMD [address] [address] [email or web address] Partners Attributed Provider 09/01/21 07/03/23 [facility] [phone]. Consulting Provider 08/22/23 [facility] Connect 12/24/23 03/11/24 Cyril Morales [facility] [place] [address] Nurse Practitioner 02/27/24 documented as of this encounter Additional Source Comments The information contained in this document represents components of the legal health record. It is not the complete legal health record.[facility]
--- OUTSIDE RECORDS SUMMARY | 2024-12-28 16:33 | XMS_ITS | Encounter Summary ---
Author Organization [facility] Address [address] [place] [address] [place] [address] Phone Care Team Providers Care Manufacturing Assembler Name Role Phone Rina Swenson MD Unavailable Laura Mock MD, DMD Primary Car e Provider Laura Mock MD, DMD Unavailable Laura Mock MD, DMD Unavailable Jakob Bob MD Unavailable Jose Cruz MD Unavailable [phone] Laura Mock MD, DMD Unavailable Pcp, Unknown Primary Care Provider UnavailLaura Ascencio MD, DMD Primary Car e Provider Pcp, Unknown Primary Care Provider UnavailNicole Arguello MD Primary Care Provide r Laura Mock MD, DMD Primary Car e Provider Encounter Details Date Type Department Care Team (Late st Contact Info) Description 03/23/2023 Anti-coag visit [facility] Anticoagulation Clinic [address] [place] [address] Purvi Lawler, PharmD 75 [place] [address] [email or web address] Social History Tobacco Use [...] Pre-Admission Testing [facility] 45 [facility] 2nd [place] [address] Irineo Ruff MD [address] [place] [address] [place] [address] [email or web address] 01/10/2025 Procedure Pass [facility] Endoscopy Department [address] [place] [address] 01/10/2025 7:30 AM EST Hospital Encounter [facility] Endoscopy Department [address] [place] [address] Irineo Ruff MD [address] [place] [address] [email or web address]@[email or web address] 01/10/2025 7:30 AM EST - 01/10/2025 8:15 AM EST Surgery [facility] Endoscopy Department 75 [place] [address] Irineo Ruff MD 75 [facility] [place] [address] [email or web address] COLONOSCOPY 01/31/2025 1:00 PM EST Office Visit [facility] Cardiovascular Medicine 32 [facility], 5th Floor, [address] [place] [address] Karena Betancur MD 55 [facility] 5[address] [place] [address] [email or web address] Scheduled Procedures Name Priority Associated Diagnoses Date/Ti [...] documented as of this encounter Care Teams Manufacturing Assembler Relationship Specialty Start Date End Date Laura Mock MD, DMD 1 [facility] [address] [place] [address] [email or web address] PCP - General Internal Medicine 06/04/21 11/11/23 Pcp, Unknown PCP - General 11/12/23 11/16/23 Laura Mock MD, DMD 1 [facility] [address] [place] [address] [email or web address] du PCP - General Internal Medicine 11/17/23 12/28/23 Pcp, Unknown PCP - General 02/28/24 03/04/24 [place] [address] [place] [address] PCP - General 03/05/24 05/17/24 Laura Mock MD, DMD [address] [address] [email or web address] du PCP - General Internal Medicine 05/18/24 Rina Swenson MD Psychiatry 07/09/17 Laura Mock MD, DMD [address] [address] [email or web address] Partners Attributed Provider 09/01/21 07/03/23 Laura Mock MD, DMD [address] [address] [email or web address] du Insurance Assigned Provider 05/31/23 03/01/24 Jakob Bob MD [address] [place] [address] [place] [address] [email or web address] Cardiology 08/22/23 Jose Cruz MD [address] [place] [address], [facility] [address] [place] [address] Cardiology 08/22/23 Laura Mock MD, DMD 1 [facility] [address] [place] [address] [email or web address] Partners Attributed Provider 09/01/21 07/03/23 [facility] [phone]. Consulting Provider 08/22/23 [facility] Connect 12/24/23 03/11/24 Cyril Morales [facility] [place] [address] Nurse Practitioner 02/27/24 documented as of this encounter Additional Source Comments The information contained in this document represents components of the legal health record. It is not the complete legal health record.[facility]
--- OUTSIDE RECORDS SUMMARY | 2024-12-28 16:33 | XMS_ITS | Encounter Summary ---
Author Organization [facility] Address [facility] [employer] [address] [address] Phone Care Team Providers Care Fabrication Inspector Name Role Phone Rina Swenson MD Unavailable Laura Mock MD, DMD Primary Car e Provider Laura Mock MD, DMD Unavailable Laura Mock MD, DMD Unavailable Jakob Bob MD Unavailable [phone] Jose Cruz MD Unavailable Laura Mock MD, [...] Pre-Admission Testing [facility] 45 [facility] [place] [facility] 2nd [place] [address] Irineo Ruff MD [address] [place] [address] [email or web address]@[email or web address] 01/10/2025 Procedure Pass [facility] Endoscopy Department [address] [place] [address] 01/10/2025 7:30 AM EST Hospital Encounter [facility] Endoscopy Department [address] [place] [address] Irineo Ruff MD [address] [place] [address] [place] [address] [email or web address]@[facility] 01/10/2025 7:30 AM EST - 01/10/2025 8:15 AM EST Surgery [facility] Endoscopy Department [address] [place] [address] Irineo Ruff MD [address] [place] [address] WALI@[facility] COLONOSCOPY 01/31/2025 1:00 PM EST Office Visit [facility] Cardiovascular Medicine 32 [facility], 5th Floor, [address] [place] [address] Karena Betancur MD [address] [address] [email or web address] .[email or web address] Scheduled Procedures Name Priority Associated [...] documented as of this encounter Care Teams Fabrication Inspector Relationship Specialty Start Date End Date Laura Mock MD, DMD [address] [address] [email or web address] du PCP - General Internal Medicine 06/04/21 11/11/23 Pcp, Unknown PCP - General 11/12/23 11/16/23 Laura Mock MD, DMD [address] [address] [email or web address] PCP - General Internal Medicine 11/17/23 12/28/23 Pcp, Unknown PCP - General 02/28/24 03/04/24 [place] [address] [address] PCP - General 03/05/24 05/17/24 Laura Mock MD, DMD [address] [address] [email or web address] du PCP - General Internal Medicine 05/18/24 Rina Swenson MD Psychiatry 07/09/17 Laura Mock MD, DMD [address] [address] [email or web address]. du Partners Attributed Provider 09/01/21 07/03/23 Laura Mock MD, DMD [address] [address] [email or web address] du Insurance Assigned Provider 05/31/23 03/01/24 Jakob Bob MD [address] [place] [address] [email or web address] Cardiology 08/22/23 Jose Cruz MD [address] [place] [address] [email or web address] [email or web address] Cardiology 08/22/23 Laura Mock MD, DMD [address] [address] [email or web address] du Partners Attributed Provider 09/01/21 07/03/23 [facility] [phone]. Consulting Provider 08/22/23 [facility] Connect 12/24/23 03/11/24 Cyril Morales [address] [place] [address] Nurse Practitioner 02/27/24 documented as of this encounter Additional Source Comments The information contained in this document represents components of the legal health record. It is not the complete legal health record.[facility]
--- OUTSIDE RECORDS SUMMARY | 2024-12-28 16:33 | XMS_ITS | Encounter Summary ---
Author Organization [facility] Address [address] [facility] [address] [place] [address] Phone Care Team Providers Care Cheesemaking Laborer Name Role Phone Rina Swenson MD Unavailable Laura Mock MD, DMD Primary Car e Provider Laura Mock MD, DMD Unavailable Laura Mock MD, DMD Unavailable Jakob Bob MD Unavailable [phone] Jose Cruz MD Unavailable Laura Mock MD, DMD Unavailable Pcp, Unknown Primary Care Provider UnavailLaura Ascencio MD, DMD Primary Car e Provider Pcp, Unknown Primary Care Provider UnavailNicole Arguello MD Primary Care Provide r Laura Mock MD, DMD Primary Car e Provider Encounter Details Date Type Department Care Team (Late st Contact Info) Description 10/26/2022 Anti-coag visit [facility] Anticoagulation Clinic 75 [place], [place] [id number] Melvin Stewart, [facility] [address] [place] [address] [email or web address] Social History Tobacco Use Types [...] AM EST Pre-Admission Testing [facility] 45 [facility] 2nd [place] [address] Irineo Ruff MD [address] [place] [address] [place] [address] [email or web address]@[facility] 01/10/[address] [facility] Endoscopy Department [address] [place] [address] 01/10/2025 7:30 AM EST Hospital Encounter [facility] Endoscopy Department [address] [place] [address] Irineo Ruff MD [address] [place] [address] [place] [address] [email or web address]@[facility] 01/10/2025 7:30 AM EST - 01/10/2025 8:[address] [facility] Endoscopy Department 75 [place] [address] Irineo Ruff MD 75 [facility] [place] [address] WALI@[facility] COLONOSCOPY 01/31/2025 1:00 PM EST Office Visit [facility] Cardiovascular Medicine 32 [facility], 5th Floor, [address] [place] [address] Karena Betancur MD 55 [facility] 5B [place] [address] FRANK@[email or web address] Scheduled Procedures Name [...] documented as of this encounter Care Teams Cheesemaking Laborer Relationship Specialty Start Date End Date Laura Mock MD, DMD 1 [facility] [address] [place] [address] [email or web address] PCP - General Internal Medicine 06/04/21 11/11/23 Pcp, Unknown PCP - General 11/12/23 11/16/23 Laura Mock MD, DMD 1 [facility] [address] [place] [address] [email or web address] du PCP - General Internal Medicine 11/17/23 12/28/23 Pcp, Unknown PCP - General 02/28/24 03/04/24 [place] [address] [place] [address] PCP - General 03/05/24 05/17/24 Laura Mock MD, DMD [address] [address] [email or web address] du PCP - General Internal Medicine 05/18/24 Rina Swenson MD Psychiatry 07/09/17 Laura Mock MD, DMD [address] [address] [email or web address] du Partners Attributed Provider 09/01/21 07/03/23 Laura Mock MD, DMD [address] [address] [email or web address] du Insurance Assigned Provider 05/31/23 03/01/24 Jakob Bob MD [address] [place] [address] [place] [address] [email or web address] Cardiology 08/22/23 Jose Cruz MD [address] [place] [address], [address] [place] [address] Cardiology 08/22/23 Laura Mock MD, DMD 1 [facility] [address] [place] [address] [email or web address] Partners Attributed Provider 09/01/21 07/03/23 [facility] [phone]. Consulting Provider 08/22/23 [facility] Connect 12/24/23 03/11/24 Cyril Morales [facility] [place] [address] Nurse Practitioner 02/27/24 documented as of this encounter Additional Source Comments The information contained in this document represents components of the legal health record. It is not the complete legal health record.[facility]
--- OUTSIDE RECORDS SUMMARY | 2024-12-28 16:33 | XMS_ITS | Encounter Summary ---
Author Organization [facility] Address [facility] [employer] [address] [address] Phone Care Team Providers Care Network Contractor Name Role Phone Rina Swenson MD Unavailable Laura Mock MD, DMD Primary Car e Provider Laura Mock MD, DMD Unavailable Laura Mock MD, DMD Unavailable Jakob Bob MD Unavailable [phone] Jose Cruz MD Unavailable [phone] Laura Mock MD, DMD Unavailable Pcp, Unknown [...] 01/05/2025 11:00 AM EST Pre-Admission Testing [address] [address] Irineo Ruff MD [address] [place] [address] [email or web address]@[email or web address] 01/10/2025 Procedure Pass [facility] Endoscopy Department [address] [place] [address] 01/10/2025 7:30 AM EST Hospital Encounter [facility] Endoscopy Department [address] [place] [address] Irineo Ruff MD [address] [place] [address] [email or web address]@[email or web address] 01/10/2025 7:30 AM EST - 01/10/2025 8:15 AM EST Surgery [facility] Endoscopy Department [address] [place] [address] Irineo Ruff MD [address] [place] [address] WALI@[email or web address] COLONOSCOPY 01/31/2025 1:00 PM EST Office Visit [facility] Cardiovascular Medicine 32 [facility], 5th Floor, [address] [place] [address] Karena Betancur MD 55 [facility] [address] [place] [address] FRANK@[email or web address] Scheduled Procedures Name Priority [...] as of this encounter Care Teams Network Contractor Relationship Specialty Start Date End Date Laura Mock MD, DMD [address] [address] [email or web address] du PCP - General Internal Medicine 06/04/21 11/11/23 Pcp, Unknown PCP - General 11/12/23 11/16/23 Laura Mock MD, DMD [address] [address] [email or web address] PCP - General Internal Medicine 11/17/23 12/28/23 Pcp, Unknown PCP - General 02/28/24 03/04/24 Nicole Newell MD [address] [place] [address]38 PCP - General 03/05/24 05/17/24 Laura Mock MD, DMD [address] [address] [email or web address] du PCP - General Internal Medicine 05/18/24 Rina Swenson MD Psychiatry 07/09/17 Laura Mock MD, DMD [address] [address] [email or web address] Partners Attributed Provider 09/01/21 07/03/23 Laura Mock MD, DMD [address] [address] [email or web address] Insurance Assigned Provider 05/31/23 03/01/24 Jakob Bob MD 75 [facility] [place] [address] [email or web address] Cardiology 08/22/23 Jose Cruz MD [address] [place] [address] Cardiology 08/22/23 Laura Mock MD, DMD [address] [address] [email or web address] Partners Attributed Provider 09/01/21 07/03/23 [facility] [phone]. Consulting Provider 08/22/23 [facility] Connect 12/24/23 03/11/24 Cyril Morales [address] [place] [address] Nurse Practitioner 02/27/24 documented as of this encounter Additional Source Comments The information contained in this document represents components of the legal health record. It is not the complete legal health record.[facility]
--- OUTSIDE RECORDS SUMMARY | 2024-12-28 16:33 | XMS_ITS | Encounter Summary ---
Author Organization [facility] Address [address] [facility] [address] [place] [address] Phone Care Team Providers Care Molder Closed Molds Name Role Phone Rina Swenson MD Unavailable [...] Procedure Pass [facility] [address] [place] [address] Social History Tobacco Use Types Packs/Day Years [...] 01/05/2025 11:00 AM EST Pre-Admission Testing [address] 2nd [place] [address] Irineo Ruff MD [address] [place] [address] [email or web address] 01/10/2025 Procedure Pass [facility] Endoscopy Department [address] [place] [address] 01/10/2025 7:30 AM EST Hospital Encounter [facility] Endoscopy Department [address] [place] [address] Irineo Ruff MD [address] [place] [address] [email or web address]@[email or web address] 01/10/2025 7:30 AM EST - 01/10/2025 8:15 AM EST Surgery [facility] Endoscopy Department [address] [place] [address] Irineo Ruff MD [address] [place] [address] WALI@[email or web address] COLONOSCOPY 01/31/2025 1:00 PM EST Office Visit [facility] Cardiovascular Medicine [address] [facility], 5th Floor, [address] [place] [address] Karena Betancur MD [address] [facility] [address] [place] [address] [email or web address] Scheduled Procedures Name Priority [...] documented as of this encounter Care Teams Molder Closed Molds Relationship Specialty Start Date End Date Laura Mock MD, DMD [address] [address] [email or web address] PCP - General Internal Medicine 06/04/21 11/11/23 Pcp, Unknown PCP - General 11/12/23 11/16/23 Laura Mock MD, DMD [address] [address] [email or web address] PCP - General Internal Medicine 11/17/23 12/28/23 Pcp, Unknown PCP - General 02/28/24 03/04/24 [place] [address] [address] PCP - General 03/05/24 05/17/24 Laura Mock MD, DMD [address] [address] [email or web address] PCP - General Internal Medicine 05/18/24 Rina Swenson MD Psychiatry 07/09/17 Laura Mock MD, DMD [address] [address] [email or web address] Partners Attributed Provider 09/01/21 07/03/23 Laura Mock MD, DMD [address] [address] [email or web address] du Insurance Assigned Provider 05/31/23 03/01/24 Jakob Bob MD [address] [place] [address] [email or web address] Cardiology 08/22/23 Jose Cruz MD [address] [place] [address], [address] [place] [address] Cardiology 08/22/23 Laura Mock MD, DMD [address] [address] [email or web address] du Partners Attributed Provider 09/01/21 07/03/23 [facility] [phone]. Consulting Provider 08/22/23 [facility] Connect 12/24/23 03/11/24 Cyril Morales [address] [place] [address] Nurse Practitioner 02/27/24 documented as of this encounter Additional Source Comments The information contained in this document represents components of the legal health record. It is not the complete legal health record.[facility]
--- OUTSIDE RECORDS SUMMARY | 2024-12-28 16:33 | XMS_ITS | Encounter Summary ---
Author Organization [facility] Address [facility] [employer] [address] [address] Phone Care Team Providers Care Tubular Products Fabricator Name Role Phone Rina Swenson MD [...] [facility] [address] [facility] 2nd [place] [address] Irineo Ruff MD [address] [place] [address] [email or web address] 01/10/2025 Procedure Pass [facility] Endoscopy Department [address] [place] [address] 01/10/2025 7:30 AM EST Hospital Encounter [facility] Endoscopy Department [address] [place] [address] Irineo Ruff MD [address] [place] [address] [place] [address] [email or web address]@[email or web address] 01/10/2025 7:30 AM EST - 01/10/2025 8:15 AM EST Surgery [facility] Endoscopy Department [address] [place] [address] Irineo Ruff MD [address] [place] [address] WALI@[email or web address] COLONOSCOPY 01/31/2025 1:00 PM EST Office Visit [facility] Cardiovascular Medicine 32 [facility], 5th Floor, [address] [place] [address] Karena Betancur MD [address] [address] [email or web address] Scheduled Procedures Name Priority Associated [...] documented as of this encounter Care Teams Tubular Products Fabricator Relationship Specialty Start Date End Date Laura Mock MD, DMD [address] [address] [email or web address] du PCP - General Internal Medicine 06/04/21 11/11/23 Pcp, Unknown PCP - General 11/12/23 11/16/23 Laura Mock MD, DMD [address] [address] [email or web address] PCP - General Internal Medicine 11/17/23 12/28/23 Pcp, Unknown PCP - General 02/28/24 03/04/24 [place] [address] [address] PCP - General 03/05/24 05/17/24 Laura Mock MD, DMD [address] [address] [email or web address] du PCP - General Internal Medicine 05/18/24 Rina Swenson MD Psychiatry 07/09/17 Laura Mock MD, DMD [address] [address] [email or web address] du Partners Attributed Provider 09/01/21 07/03/23 Laura Mock MD, DMD [address] [address] [email or web address] du Insurance Assigned Provider 05/31/23 03/01/24 Jakob Bob MD [address] [place] [address] [email or web address] Cardiology 08/22/23 Jose Cruz MD [address] [place] [address] [email or web address] Cardiology 08/22/23 Laura Mock MD, DMD [address] [address] [email or web address] du Partners Attributed Provider 09/01/21 07/03/23 [facility] [phone]. Consulting Provider 08/22/23 [facility] Connect 12/24/23 03/11/24 Cyril Morales [address] [place] [address] Nurse Practitioner 02/27/24 documented as of this encounter Additional Source Comments The information contained in this document represents components of the legal health record. It is not the complete legal health record.[facility]
--- OUTSIDE RECORDS SUMMARY | 2024-12-28 16:33 | XMS_ITS | Encounter Summary ---
Author Organization [facility] Address [facility] [employer] [facility] [address] [place] [address] Phone Care Team Providers Care Heel Builder Machine Name Role Phone Artie Meehan MD Primary Care Provider Artie Meehan MD Unavailable [phone] Rina Swenson MD Unavailable Laura Mock MD, [...] Contact Info) Description 11/29/2017 Transcribe Orders [facility]leb Main [address] [place] [address] Artie Meehan MD [address] [place] [address] [place] [address] Hypertension, essential (Primary Dx) Social History Tobacco [...] 01/05/2025 11:00 AM EST Pre-Admission Testing [address] 2nd [place] [address] Irineo Ruff MD [address] [place] [address] [email or web address] 01/10/2025 Procedure Pass [facility] Endoscopy Department [address] [place] [address] 01/10/2025 7:30 AM EST Hospital Encounter [facility] Endoscopy Department [address] [place] [address] Irineo Ruff MD [address] [place] [address] WALI@[email or web address] 01/10/2025 7:30 AM EST - 01/10/2025 8:15 AM EST Surgery [facility] Endoscopy Department [address] [place] [address] Irineo Ruff MD [address] [place] [address] [place] [address] WALI@[email or web address] COLONOSCOPY 01/31/2025 1:00 PM EST Office Visit [facility] Cardiovascular Medicine [address] [facility], 5th Floor, [address] [place] [address] Karena Betancur MD 55 [facility] [address] [place] [address] [email or web address] Scheduled Procedures Name Priority Associated Diagnoses Date/Ti me COLONOSCOPY Abnormal colonoscopy 01/10/2025 7:30 AM EST documented as of this encounter Results * (ABNORMAL) Urinalysis (11/29/2017 10:52 AM EDT) Pathologist [facility] COLOR Yellow Yellow [facility] CLARITY Clear [facility] GLUCOSE Negative Negative [facility] BILI Negative Negative [facility] KETONES Negative Negative [facility] SPECIFIC GRAVITY 1.015 1.005 - 1.030 [facility] BLOOD Trace(A) Negative [facility] PH 6.0 5.0 - 8.0 [facility] Protein-UA Negative Negative [facility] NITRITE Negative Negative [facility] Leukocyte esterase, ur Negative Negative [facility] Urine (Urine) 11/29/2017 10: 52 AM EDT 11/29/2017 10:57 AM EDT us Artie Meehan MD LAB URINE ORDERABLES Neela l Result [address] [address] * (ABNORMAL) CBC and differential (11/29/2017 10:52 AM EDT) WBC 3.98 3.40 - 11.20 K/uL [facility] RBC 5.32(H) 3.80 - 4.80 M/uL [facility] HGB 15.7(H) 12.0 - 15.0 g/dL [facility] HCT 48.4(H) 36.0 - 46.0 % [facility] PLT 223 130 - 400 K/uL [facility] MCV 91.0 79.0 - 98.0 fL [facility] MCH 29.5 27.0 - 34.8 pg [facility] MCHC 32.4 31.5 - 36.0 g/dL [facility] RDW 13.4 10.8 - 14.6 % [facility] MPV 9.1(L) 9.4 - 12.4 fl [facility] NRBC 0.00 /100 WBCs [facility] ABSOLUTE NRBC 0.00 K/uL [facility] DIFF METHOD Auto [facility] NEUTS 58.8 45.30 - 77.70 % [facility] LYMPHS 26.6 12.30 - 39.70 % [facility] MONOS 10.8 4.10 - 12.80 % [facility] EOS 2.5 0 - 7.2 % [facility] BASOS 1.0 0 - 2.80 % [facility] Granulocytes, immature (%) 0.3 0.0 - 0.9 % [facility] ABSOLUTE NEUTS 2.34 1.40 - 7.70 K/uL [facility] ABSOLUTE LYMPHS 1.06 0.60 - 3.20 K/uL [facility] ABSOLUTE MONOS 0.43 0.11 - 0.59 K/uL [facility] ABSOLUTE EOS 0.10 0.01 - 0.50 K/uL [facility] ABSOLUTE BASOS 0.04 0.00 - 0.08 K/uL [facility] Granulocytes, immature 0.01 0.00 - 0.05 K/uL [facility] Blood 11/29/2017 10:5 2 AM EDT 11/29/2017 10:57 AM EDT us Artie Meehan MD LAB BLOOD BKR ORDERABLES Final Result [facility] [address] [place], [place] [id number] * (ABNORMAL) Lipid panel (11/29/2017 10:52 AM EDT) HDL 82 mg/dL [facility] Comment: Interpretation: Risk Level Females Decreased >55mg/dL Average 50-55 mg/dL Increased <50 mg/dL CHOLESTEROL 253(H) 0 - 240 mg/dL [facility] TRIGLYCERIDES 83 30 - 160 mg/dL [facility] LDL 154(H) 50 - 129 mg/dL [facility] Comment: LDL levels in terms of risk for coronary heart disease: <100 mg/dL: Optimal 100-129 mg/dL: Near or above optimal 130-159 mg/dL: Borderline high 160-189 mg/dL: High >190 mg/dL: Very High CARDIAC RISK RATIO 3.1(L) 3.3 - 4.4 C [facility] Blood 11/29/2017 10:5 2 AM EDT 11/29/2017 10:57 AM EDT us Artie Meehan MD LAB BLOOD BKR ORDERABLES Final Result [facility] [address] [place], [place] [id number] * Comprehensive metabolic panel (11/29/2017 10:52 AM EDT) SODIUM 145 133 - 146 mmol/L [facility] POTASSIUM 4.7 3.3 - 5.1 mmol/L [facility] CHLORIDE 104 96 - 108 mmol/L [facility] CO2 27 21 - 35 mmol/L [facility] BUN 17 6 - 19 mg/dL [facility] CREATININE 0.80 0.5 - 1.5 mg/dL [facility] GLUCOSE 86 70 - 99 mg/dL [facility] ALBUMIN 4.1 3.9 - 4.8 g/dL [facility] TOTAL PROTEIN 6.9 6.5 - 8.0 g/dL [facility] CALCIUM 9.2 8.4 - 10.3 mg/dL [facility] ALKALINE PHOSPHATASE 73 39 - 117 U/L [facility] TOTAL BILIRUBIN 0.5 0.0 - 1.2 mg/dL [facility] AST 19 0 - 37 U/L [facility] ALT 12 0 - 40 U/L [facility] GLOBULIN 2.8 1 - 4.8 g/dL [facility] EGFR 70 >59 mL/min/1.7 3m2 [facility] Comment:If patient is black, multiply result by 1.159. Estimated glomerular filtration rate calculated using the CKD-EPI equation. ANION GAP 19 10 - 20 mmol/L [facility] Blood 11/29/2017 10:5 2 AM EDT 11/29/2017 10:57 AM EDT Artie Meehan MD LAB BLOOD BKR ORDERABLES Final Result Performing Organization Address City/State/[facility] Co de Phone Number [address] [address] documented in this encounter Visit Diagnoses Diagnosis [...] Machine Relationship Specialty Start Date End Date Artie Meehan MD [address] [place] [address] [place] [address] PCP - General Internal Medicine 10/26/17 06/03/21 Laura Mock MD, DMD [address] [address] [email or web address] PCP - General Internal Medicine 06/04/21 11/11/23 Pcp, Unknown PCP - General 11/12/23 11/16/23 Laura Mock MD, DMD [address] [address] [email or web address] du PCP - General Internal Medicine 11/17/23 12/28/23 Pcp, Unknown PCP - General 02/28/24 03/04/24 Nicole Newell MD [address] [place] [address] PCP - General 03/05/24 05/17/24 Laura Mock MD, DMD [address] [address] [email or web address] du PCP - General Internal Medicine 05/18/24 Artie Meehan MD [address] [place] [address] [address] [facility] [place] [address] Internal Medicine 10/26/17 04/23/22 Rina Swenson MD [address] [place] [address] [address] [facility] [facility] [place] [address] Psychiatry 07/09/17 Laura Mock MD, DMD [address] [address] [email or web address] Attributed Provider 09/01/21 07/03/23 Laura Mock MD, DMD [address] [address] [email or web address] du Insurance Assigned Provider 05/31/23 03/01/24 Jakob Bob MD [address] [place] [address] [address] [place] [address] [email or web address] Cardiology 08/22/23 Jose Cruz MD [address] [facility], [address] [place] [address] [email or web address] Cardiology 08/22/23 Laura Mock MD, DMD 1 [facility] [address] [place] [address] [email or web address] Attributed Provider 09/01/21 07/03/23 [facility] [phone]. Consulting Provider 08/22/23 CAROLANN GREWAL Connect 12/24/23 03/11/24 Cyril Morales [facility] [place] [address] Nurse Practitioner 02/27/24 documented as of this encounter Additional Source Comments The information contained in this document represents components of the legal health record. It is not the complete legal health record.[facility]
--- OUTSIDE RECORDS SUMMARY | 2024-12-28 16:33 | XMS_ITS | Encounter Summary ---
Author Organization [facility] Address [address] [facility] [address] [place] [address] Phone Care Team Providers Care Dredgemaster Name Role Phone Rina Swenson MD Unavailable Laura Mock MD, DMD Primary Car e Provider Laura Mock MD, DMD Unavailable Laura Mock MD, DMD Unavailable Jakob Bob MD Unavailable [phone] Jose Cruz MD Unavailable Laura Mock MD, DMD Unavailable Pcp, Unknown Primary Care Provider UnavailLaura Ascencio MD, DMD Primary Car e Provider Pcp, Unknown Primary Care Provider UnavailNicole Arguello MD Primary Care Provide r Laura Mock MD, DMD Primary Car e Provider Encounter Details Date Type Department Care Team (Late st Contact Info) Description 05/27/2023 Procedure Pass [facility] Endoscopy Department [address] [place] [address] Social History Tobacco Use Types Packs/Day Years [...] 01/05/2025 11:00 AM EST Pre-Admission Testing [address] [address] Irineo Ruff MD [address] [place] [address] [email or web address] 01/10/2025 Procedure Pass [facility] Endoscopy Department [address] [place] [address] 01/10/2025 7:30 AM EST Hospital Encounter [facility] Endoscopy Department [address] [place] [address] Irineo Ruff MD [address] [place] [address] [email or web address] 01/10/2025 7:30 AM EST - 01/10/2025 8:15 AM EST Surgery [facility] Endoscopy Department [address] [place] [address] Irineo Ruff MD [address] [place] [address] WALI@[facility] COLONOSCOPY 01/31/2025 1:00 PM EST Office [place] [facility] [place] 32 [facility], 5th Floor, [address] [place] [address] Karena Betancur MD 55 [facility] [address] [place] [address] [email or web address] Scheduled Procedures Name Priority Associated Diagnoses Date/Ti me COLONOSCOPY Abnormal colonoscopy 01/10/2025 7:30 AM EST documented as of this encounter Visit Diagnoses Not on filedocumented in this encounter Additional Health Concerns Infection Onset Date Last Indicated Resolved Time CoV-Risk 11/12/2023 11/12/2023 11/12/2023 5:12 PM EDT COVID-19 11/12/2023 11/12/2023 12/03/2023 1:2 1 AM EDT Assessment Noted Time PHQ-9 Depression Total Score: 17 04/24/ 023 11:28 AM EST PHQ-2 Depression Total Score: 2 10/10/19 23 11:28 AM EDT documented as of this encounter Care Teams Dredgemaster Relationship Specialty Start Date End Date Laura Mock MD, DMD [address] [address] [email or web address] PCP - General Internal Medicine 06/04/21 11/11/23 Pcp, Unknown PCP - General 11/12/23 11/16/23 Laura Mock MD, DMD 1 [facility] [address] [place] [address] [email or web address] PCP - General Internal Medicine 11/17/23 12/28/23 Pcp, Unknown PCP - General 02/28/24 03/04/24 [place] [address] [place] [address] PCP - General 03/05/24 05/17/24 Laura Mock MD, DMD 1 [facility] [address] [place] [address] [email or web address] PCP - General Internal Medicine 05/18/24 Rina Swenson MD Psychiatry 07/09/17 Laura Mock MD, DMD [address] [address] [email or web address] Attributed Provider 09/01/21 07/03/23 Laura Mock MD, DMD [address] [address] [email or web address] Insurance Assigned Provider 05/31/23 03/01/24 Jakob Bob MD 75 [facility] [place] [address] [email or web address] Cardiology 08/22/23 Jose Cruz MD [address] [place] [address], [address] [place] [address] Cardiology 08/22/23 Laura Mock MD, DMD [address] [address] [email or web address] Partners Attributed Provider 09/01/21 07/03/23 [facility] [phone]. Consulting Provider 08/22/23 [facility] Connect 12/24/23 03/11/24 Cyril Morales [facility] [place] [address] Nurse Practitioner 02/27/24 documented as of this encounter Additional Source Comments The information contained in this document represents components of the legal health record. It is not the complete legal health record.[facility]
--- OUTSIDE RECORDS SUMMARY | 2024-12-28 16:33 | XMS_ITS | Encounter Summary ---
Author Organization [facility] Address [facility] [employer] [address] [address] Phone Care Team Providers Care Dent Remover Name Role Phone Rina Swenson MD Unavailable [...] 01/05/2025 11:00 AM EST Pre-Admission Testing [address] [address] Irineo Ruff MD [address] [place] [address] [email or web address] 01/10/2025 Procedure Pass [facility] Endoscopy Department [address] [place] [address] 01/10/2025 7:30 AM EST Hospital Encounter [facility] Endoscopy Department [address] [place] [address] Irineo Ruff MD [address] [place] [address] [email or web address] 01/10/2025 7:30 AM EST - 01/10/2025 8:15 AM EST Surgery [facility] Endoscopy Department [address] [place] [address] Irineo Ruff MD [address] [place] [address] [email or web address] COLONOSCOPY 01/31/2025 1:00 PM EST Office Visit [facility] Cardiovascular Medicine [address] [facility], 5th Floor, [address] [place] [address] Karena Betancur MD 55 [facility] [address] [place] [address] [email or web address] Scheduled Procedures Name Priority Associated Diagnoses [...] documented as of this encounter Care Teams Dent Remover Relationship Specialty Start Date End Date Laura Mock MD, DMD [address] [address] [email or web address] du PCP - General Internal Medicine 06/04/21 11/11/23 Pcp, Unknown PCP - General 11/12/23 11/16/23 Laura Mock MD, DMD [address] [address] [email or web address] PCP - General Internal Medicine 11/17/23 12/28/23 Pcp, Unknown PCP - General 02/28/24 03/04/24 Nicole Newell MD [address] [place] [phone] PCP - General 03/05/24 05/17/24 Laura Mock MD, DMD [address] [address] [email or web address] du PCP - General Internal Medicine 05/18/24 Rina Swenson MD Psychiatry 07/09/17 Laura Mock MD, DMD [address] [address] [email or web address] [employer] Attributed Provider 09/01/21 07/03/23 Laura Mock MD, DMD [address] [address] [email or web address] du Insurance Assigned Provider 05/31/23 03/01/24 Jakob Bob MD [address] [facility] [place] [address] [email or web address] Cardiology 08/22/23 Jose Cruz MD [address] [place] [address] Cardiology 08/22/23 Laura Mock MD, DMD [address] [address] [email or web address] du [employer] Attributed Provider 09/01/21 07/03/23 [facility] [phone]. Consulting Provider 08/22/23 [facility] Connect 12/24/23 03/11/24 Cyril Morales [address] [place] [address] Nurse Practitioner 02/27/24 documented as of this encounter Additional Source Comments The information contained in this document represents components of the legal health record. It is not the complete legal health record.[facility]
--- OUTSIDE RECORDS SUMMARY | 2024-12-28 16:33 | XMS_ITS | Clinical Summary ---
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[facility]; has chronic changes on CT No [...] given a the option to go to [facility] Coumadin clinic or to go back to [facility] where she has been a patient [...] Type Department Care Team Description 10/13/2024 Telephone [facility] 2nd [place] [address] Laura Mock MD, DMD Colonoscopy 10/07/2024 Refill [facility] [address] [facility] 3rd Floor, [address] [place] [address] Jose Cruz MD Medication Refill from Last [...] 01/05/2025 11:00 AM EST Pre-Admission Testing [address] [address] Irineo Ruff MD [address] [place] [address] [email or web address] 01/10/2025 Procedure Pass [facility] Endoscopy Department [address] [place] [address] 01/10/2025 7:30 AM EST Hospital Encounter [facility] Endoscopy Department [address] [place] [address] Irineo Ruff MD [address] [place] [address] [email or web address] 01/10/2025 7:30 AM EST - 01/10/2025 8:15 AM EST Surgery [facility] Endoscopy Department [address] [place] [address] Irineo Ruff MD 75 [facility], [place] [address] [email or web address] COLONOSCOPY 01/31/2025 1:00 PM EST Office Visit [facility] Cardiovascular Medicine [address] [facility], 5th Floor, [address] [place] [address] Karena Betancur MD [address] [facility] [address] [place] [address] [email or web address] Scheduled Procedures Name Priority Associated [...] this topic Medical Devices Implanted Type Area Temper Mill Operator Device Identifier Shelf Expiration Date Model / Serial / Lot St Drew Aortic Valve 23mm-04/19/2002 Implanted:04/19/19 03 (Quantity not on file) Description:Per OP report fr om 04/19/02: Pt has a 23mm St Drew Aortic Valve replacement Per shipyard supervisor: cond to 1.5T and 3T (see scanned in document)-[id number] 05/19/18 Procedures Procedure Name Priority Date/Time Associated Diagnosis Comments BASIC METABOLIC PANEL (BMP) STAT 12/04/2023 1:58 PM EDT BD DXA AXIAL (SPINE) WITH HIP Routine 01/24/2021 8:57 AM EST Asymptomatic menopausal state Age-related osteoporosis without current pathological fracture HM COLONOSCOPY FOR RESULT ENTRY ONLY Routine 06/24/2014 from Last 3 Months or Most Recently Relevant to Health Maintenance Results * Basic metabolic panel (12/04/2023 1:58 PM EDT) SODIUM 139 136 - 145 mmol/L [facility] POTASSIUM 4.8 3.4 - 5.1 mmol/L [facility] CHLORIDE 100 98 - 107 mmol/L [facility] CO2 28 22 - 31 mmol/L [facility] BUN 18 6 - 23 mg/dL [facility] CREATININE 0.71 0.50 - 1.20 mg/dL [facility] GLUCOSE 94 70 - 100 mg/dL [facility] CALCIUM 9.6 8.8 - 10.7 mg/dL [facility] EGFR 83 >59 mL/min/1.7 3m2 [facility] Comment:Estimated glomerular filtration rate calculated using the CKD-EPI refit equation. ANION GAP 11 7 - 17 mmol/L [facility] Blood 12/04/2023 1:58 PM EDT 12/04/2023 2:02 PM EDT us Jim Zacarias MD LAB BLOOD BKR ORDERA BLES Final Result Performing Organization Address City/State/[facility] Phone Number [facility] [address] [place] [phone] * BD DXA AXIAL (SPINE) WITH HIP [...] bone mineral density was calculated at 0.409 gm/ct1kess a T- score of -4 falling within [...] and bilateral hip osteoporosis. Artie Meehan MD IM BD BONE DENSITY DEXA Final Result * COLONOSCOPY FOR RESULT ENTRY ONLY (06/24/2014) Colonoscopy Normal Comment:Done by Dr. Hernandez Historical Provider HEALTH MAINTENANCE Edited Result - Final from Last 3 Months or Most Recently Relevant to Health Maintenance Insurance MEDICARE PART A & B [place] [employer] SUPPLE[place] MEDICARE PART A & B [place] MED[place] SUPPLEMENT MEDICARE PART A & B [place] MED[place] SUPPLEMENT MEDICARE PART A & B [place] MEDEX SUPPLEMENT MEDICARE PART A & B [place] MED[employer] SUPPLEMENT MEDICARE PART A & B [place] [employer] SUPPLEMENT MEDICARE PART A & B [place] [employer] SUPPLEMENT MEDICARE PART A & B [place] MED[place] SUPPLEMENT MEDICARE PART A & B [employer] UTE MEDEX SUPPLEMENT Advance Directives For more information, please contact: [phone] (9AM - 5PM [facility], Friday-Friday) Documents on File Type Date Recorded Patient Investment Specialist Expl anation Healthcare Proxy 11/18/2023 2:08 PM Healthcare Proxy 11/14/2023 7:46 AM Health care Proxy * Full Code (Latest Code Status on File) Date Activated Date Inactivated Comments 11/12/2023 10:33 PM Question Answer Comments Code Status Confirmed With: Other (specify below ) Code Discussion Comments: Presumed Care Teams Facilities Supervisor Relationship Specialty Start Date End Date Laura Mock MD, DMD 1 [facility] [address] [place] [address] [email or web address] PCP - General Internal Medicine 05/18/24 Rina Swenson MD Psychiatry 07/09/17 Jakob Bob MD [address] [place], [place] [address] [place] [address] [email or web address] Cardiology 08/22/23 Jose Cruz MD [address] [facility] [address] [place] [address] Cardiology 08/22/23 [facility] [phone]. Consulting Provider 08/22/23 Cyril Morales [address] [place] [phone] Nurse Practitioner 02/27/24 Additional Source Comments The information contained in this document represents components of the legal health record. It is not the complete legal health record.[facility]
--- OUTSIDE RECORDS SUMMARY | 2024-12-28 16:33 | XMS_ITS | Encounter Summary ---
Author Organization [facility] Address [address] [place] [address] Phone Care Team Providers Care Applications Manager Name Role Phone Rina Swenson MD Unavailable [phone] Jakob Bob MD Unavailable [phone] Jose Cruz MD Unavailable Laura Mock MD, DMD Primary Car e Provider Reason for Visit * Reason Onset Date Comments Colonoscopy 10/13/2024 Encounter Details Date Type Department Care Team (Late st Contact Info) Description 10/13/2024 Telephone [facility] Primary [facility] Associates of [address] 2nd [place] [address] Laura Mock MD, DMD 1 [facility] [address] [place] [address] [email or web address] Colonoscopy Social History Tobacco Use Types Packs/Day [...] Description 01/05/2025 11:00 AM EST [facility] [address] [address] Irineo Ruff MD [address] [facility], [place] [address] [email or web address] 01/10/2025 Procedure Pass [facility] Endoscopy Department [address] [place] [address] 01/10/2025 7:30 AM EST Hospital Encounter [facility] Endoscopy Department [address] [place] [address] Irineo Ruff MD [address] [facility] [place] [address] [email or web address] 01/10/2025 7:30 AM EST - 01/10/2025 8:15 AM EST Surgery [facility] Endoscopy Department [address] [place] [address] Irineo Ruff MD [address] [facility] [place] [address] [email or web address] COLONOSCOPY 01/31/2025 1:00 PM EST Office Visit [facility] Cardiovascular Medicine 32 [facility], 5th Floor, [address] [place] [address] Karena Betancur MD [address] [address] [email or web address] Scheduled Procedures Name Priority [...] documented as of this encounter Care Teams Applications Manager Relationship Specialty Start Date End Date Laura Mock MD, DMD 1 [facility] [address] [place] [address] [email or web address] PCP - General Internal Medicine 05/18/24 Rina Swenson MD Psychiatry 07/09/17 Jakob Bob MD [address] [place] [address] [address] [place] [address] [email or web address] Cardiology 08/22/23 Jose Cruz MD [address] [place] [address], [address] [place] [address] Cardiology 08/22/23 [facility] [phone]. Consulting Provider 08/22/23 Cyril Morales [address] [place] [phone] Nurse Practitioner 02/27/24 documented as of this encounter Additional Source Comments The information contained in this document represents components of the legal health record. It is not the complete legal health record.[facility]
--- OUTSIDE RECORDS SUMMARY | 2024-12-28 16:33 | XMS_ITS | Encounter Summary ---
Author Organization [facility] Address [address] [place] [address] [place] [address] Phone Care Team Providers Care Fishing Instructor Name Role Phone Rina Swenson MD Unavailable Laura Mock MD, DMD Primary Car e Provider Laura Mock MD, DMD Unavailable Laura Mock MD, DMD Unavailable Jakob Bob MD Unavailable [phone] Jose Cruz MD Unavailable Laura Mock MD, DMD Unavailable Pcp, Unknown Primary Care Provider UnavailLaura Ascencio MD, DMD Primary Car e Provider Pcp, Unknown Primary Care Provider UnavailNicole Arguello MD Primary Care Provide r Laura Mock MD, DMD Primary Car e Provider Encounter Details Date Type Department Care Team (Late st Contact Info) Description 04/25/2022 Anti-coag visit [facility] Anticoagulation Clinic [address] [place] [phone] Kenyatta [email or web address] Social History Tobacco Use Types Packs/Day Years [...] EST Pre-Admission Testing [facility] [address] [facility] 2nd [place] [address] Irineo Ruff MD [address] [place] [address] [email or web address] 01/10/[address] [facility] Endoscopy Department [address] [place] [address] 01/10/2025 7:30 AM EST Hospital Encounter [facility] Endoscopy Department [address] [place] [address] Irineo Ruff MD [address] [place] [address] [place] [address] [email or web address] 01/10/2025 7:30 AM EST - 01/10/2025 8:[address] [facility] Endoscopy Department [address] [place] [address] Irineo Ruff MD [address] [place] [address] [place] [address] [email or web address] COLONOSCOPY 01/31/2025 1:00 PM EST Office Visit [facility] Cardiovascular Medicine [address] [facility], 5th Floor, [address] [place] [address] Karena Betancur MD [address] [place] [address] FRANK@[email or web address] Scheduled Procedures Name Priority Associated [...] documented as of this encounter Care Teams Fishing Instructor Relationship Specialty Start Date End Date Laura Mock MD, DMD [address] [address] [email or web address] du PCP - General Internal Medicine 06/04/21 11/11/23 Pcp, Unknown PCP - General 11/12/23 11/16/23 Laura Mock MD, DMD [address] [address] [email or web address] du PCP - General Internal Medicine 11/17/23 12/28/23 Pcp, Unknown PCP - General 02/28/24 03/04/24 Nicole Newell MD [address] [place] [address] PCP - General 03/05/24 05/17/24 Laura Mock MD, DMD [address] [address] [email or web address] du PCP - General Internal Medicine 05/18/24 Rina Swenson MD Psychiatry 07/09/17 Laura Mock MD, DMD [address] [address] [email or web address] [employer] Attributed Provider 09/01/21 07/03/23 Laura Mock MD, DMD [address] [address] [email or web address] du Insurance Assigned Provider 05/31/23 03/01/24 Jakob Bob MD [address] [place] [address] [email or web address] Cardiology 08/22/23 Jose Cruz MD [address] [place] [address] Cardiology 08/22/23 Laura Mock MD, DMD [address] [address] [email or web address] Attributed Provider 09/01/21 07/03/23 [facility] [phone]. Consulting Provider 08/22/23 [facility] Connect 12/24/23 03/11/24 Cyril Morales [address] [place] [phone] Nurse Practitioner 02/27/24 documented as of this encounter Additional Source Comments The information contained in this document represents components of the legal health record. It is not the complete legal health record.[facility]
--- OUTSIDE RECORDS SUMMARY | 2024-12-28 16:33 | XMS_ITS | Encounter Summary ---
Author Organization [facility] Address [address] [place] [address] [place] [address] Phone Care Team Providers Care Maintenance Manager Name Role Phone Rina Swenson MD Unavailable [phone] Laura Mock MD, DMD Primary Car e Provider Laura Mock MD, DMD Unavailable Laura Mock MD, DMD Unavailable Jakob Bob MD Unavailable [phone] Jose Cruz MD Unavailable Laura Mock MD, DMD Unavailable Pcp, Unknown Primary Care Provider UnavailLaura Ascencio MD, DMD Primary Car e Provider Pcp, Unknown Primary Care Provider UnavailNicole Arguello MD Primary Care Provide r Laura Mock MD, DMD Primary Car e Provider Encounter Details Date Type Department Care Team (Late st Contact Info) Description 10/29/2022 Anti-coag visit [facility] Cardiovascular Health [address] [place] [address] Catherine Hernández, PharmD [email or web address] Social History [...] 01/05/2025 11:00 AM EST Pre-Admission Testing [address] 2nd [place] [address] Irineo Ruff MD [address] [place] [address] [email or web address] 01/10/2025 Procedure Pass [facility] Endoscopy Department [address] [place] [address] 01/10/2025 7:30 AM EST Hospital Encounter [facility] Endoscopy Department [address] [place] [address] Irineo Ruff MD [address] [place] [address] [email or web address] 01/10/2025 7:30 AM EST - 01/10/2025 8:15 AM EST Surgery [facility] Endoscopy Department [address] [place] [address] Irineo Ruff MD 75 [facility], [place] [address] [email or web address] COLONOSCOPY 01/31/2025 1:00 PM EST Office Visit [facility] Cardiovascular Medicine [address] [facility], 5th Floor, [address] [place] [address] Karena Betancur MD 55 [facility] [address] [place] [address] [email or web address] Scheduled Procedures Name Priority Associated Diagnoses [...] documented as of this encounter Care Teams Maintenance Manager Relationship Specialty Start Date End Date Laura Mock MD, DMD [address] [address] [email or web address] PCP - General Internal Medicine 06/04/21 11/11/23 Pcp, Unknown PCP - General 11/12/23 11/16/23 Laura Mock MD, DMD 1 [facility] [address] [place] [address] [email or web address] PCP - General Internal Medicine 11/17/23 12/28/23 Pcp, Unknown PCP - General 02/28/24 03/04/24 Nicole [place] MD [address] [place] [address] PCP - General 03/05/24 05/17/24 Laura Mock MD, DMD [address] [address] [email or web address] du PCP - General Internal Medicine 05/18/24 Rina Swenson MD Psychiatry 07/09/17 Laura Mock MD, DMD [address] [address] [email or web address] du Partners Attributed Provider 09/01/21 07/03/23 Laura Mock MD, DMD [address] [address] [email or web address] du Insurance Assigned Provider 05/31/23 03/01/24 Jakob Bob MD [address] [place] [address] [place] [address] [email or web address] Cardiology 08/22/23 Jose Cruz MD [address] [place] [address] Cardiology 08/22/23 Laura Mock MD, DMD [address] [address] [email or web address] Partners Attributed Provider 09/01/21 07/03/23 [facility] [phone]. Consulting Provider 08/22/23 [facility] Connect 12/24/23 03/11/24 Cyril Morales [address] [place] [address] Nurse Practitioner 02/27/24 documented as of this encounter Additional Source Comments The information contained in this document represents components of the legal health record. It is not the complete legal health record.[facility]
--- OUTSIDE RECORDS SUMMARY | 2024-12-28 16:33 | XMS_ITS | Encounter Summary ---
Author Organization [facility] Address [facility] [employer] [address] [address] Phone Care Team Providers Care Supervisor Assembly Room Name Role Phone Rina Swenson MD Unavailable [...] Description 01/05/2025 11:00 AM EST Pre-Admission Testing [address] [address] Irineo Ruff MD [address] [place] [address] [email or web address] 01/10/2025 Procedure Pass [facility] Endoscopy Department [address] [place] [address] 01/10/2025 7:30 AM EST Hospital Encounter [facility] Endoscopy Department [address] [place] [address] Irineo Ruff MD [address] [place] [address] [email or web address] 01/10/2025 7:30 AM EST - 01/10/2025 8:15 AM EST Surgery [facility] Endoscopy Department [address] [place] [address] Irineo Ruff MD [address] [place] [address] [email or web address] COLONOSCOPY 01/31/2025 1:00 PM EST Office Visit [facility] [place] Medicine [address] [facility], 5th Floor, [address] [place] [address] Karena Betancur MD 55 [facility] [address] [place] [address] [email or web address] Scheduled Procedures Name [...] as of this encounter Care Teams Supervisor Assembly Room Relationship Specialty Start Date End Date Laura Mock MD, DMD [address] [address] [email or web address] du PCP - General Internal Medicine 06/04/21 11/11/23 Pcp, Unknown PCP - General 11/12/23 11/16/23 Laura Mock MD, DMD [address] [address] [email or web address] du PCP - General Internal Medicine 11/17/23 12/28/23 Pcp, Unknown PCP - General 02/28/24 03/04/24 Nicole Newell MD [address] [place] [address] [phone] PCP - General 03/05/24 05/17/24 Laura Mock MD, DMD [address] [address] [email or web address] du PCP - General Internal Medicine 05/18/24 Rina Swenson MD Psychiatry 07/09/17 Laura Mock MD, DMD [address] [address] [email or web address]. du [employer] Attributed Provider 09/01/21 07/03/23 Laura Mock MD, DMD [address] [address] [email or web address] du Insurance Assigned Provider 05/31/23 03/01/24 Jakob Bob MD 75 [facility] [place] [address] [email or web address] Cardiology 08/22/23 Jose Cruz MD [address] [place] [address] Cardiology 08/22/23 Laura Mock MD, DMD [address] [address] [email or web address] du Partners Attributed Provider 09/01/21 07/03/23 [facility] [phone]. Consulting Provider 08/22/23 [facility] Connect 12/24/23 03/11/24 Cyril Morales [address] [place] [address] Nurse Practitioner 02/27/24 documented as of this encounter Additional Source Comments The information contained in this document represents components of the legal health record. It is not the complete legal health record.[facility]
--- OUTSIDE RECORDS SUMMARY | 2024-12-28 16:33 | XMS_ITS | Encounter Summary ---
Author Organization [facility] Address [facility] Share Your Brain [facility] [address] [place] [address] Phone Care Team Providers Care Interior Plant Caretaker Name Role Phone Artie Meehan MD Primary Care Provider Artie Meehan MD Unavailable [phone] Rina Swenson MD Unavailable Laura Mock MD, [...] Procedure Pass [facility] [address] [place] [address] Social History Tobacco Use Types Packs/Day Years [...] EST Pre-Admission Testing [facility] [address] [facility] 2nd [place] [address] Irineo Ruff MD [address] [place] [address] [email or web address] 01/10/2025 Procedure Pass [facility] Endoscopy Department [address] [place] [address] 01/10/2025 7:30 AM EST Hospital Encounter [facility] Endoscopy Department [address] [place] [address] Irineo Ruff MD [address] [place] [address] [email or web address] 01/10/2025 7:30 AM EST - 01/10/2025 8:15 AM EST Surgery [facility] Endoscopy Department [address] [place] [address] Irineo Ruff MD [address] [place] [address] [email or web address] [email or web address] 01/31/2025 1:00 PM EST Office Visit [facility] Cardiovascular Medicine [address] [place] [address], 5th Floor, [address] [place] [address] Karena Betancur MD [address] [place] [address] [email or web address] Scheduled Procedures Name Priority Associated Diagnoses [...] documented as of this encounter Care Teams Interior Plant Caretaker Relationship Specialty Start Date End Date Artie Meehan MD [address] [place] [address] [place] [address] PCP - General Internal Medicine 10/26/17 06/03/21 Laura Mock MD, DMD [address] [address] [email or web address] PCP - General Internal Medicine 06/04/21 11/11/23 Pcp, Unknown PCP - General 11/12/23 11/16/23 Laura Mock MD, DMD [address] [address] [email or web address] PCP - General Internal Medicine 11/17/23 12/28/23 Pcp, Unknown PCP - General 02/28/24 03/04/24 [place] [address] [address] PCP - General 03/05/24 05/17/24 Laura Mock MD, DMD [address] [address] [email or web address] PCP - General Internal Medicine 05/18/24 Artie Meehan MD [address] [place] [address] [place] [address] Internal Medicine 10/26/17 04/23/22 Rina Swenson MD [address] [place] [address] [address] [place] [address] Psychiatry 07/09/17 Laura Mock MD, DMD [address] [address] [email or web address] Partners Attributed Provider 09/01/21 07/03/23 Laura Mock MD, DMD [address] [address] [email or web address] du Insurance Assigned Provider 05/31/23 03/01/24 Jakob Bob MD [address] [place], [place] [address] [place] [address] [email or web address] Cardiology 08/22/23 oJse Cruz MD [address] [place], [place] [address], [place] [address] Cardiology 08/22/23 Laura Mock MD, DMD 1 [facility] [address] [place] [address] [email or web address] Partners Attributed Provider 09/01/21 07/03/23 [facility] [phone]. Consulting Provider 08/22/23 [facility] Connect 12/24/23 03/11/24 Cyril Morales [address] [place] [address] Nurse Practitioner 02/27/24 documented as of this encounter Additional Source Comments The information contained in this document represents components of the legal health record. It is not the complete legal health record.[facility]
--- OUTSIDE RECORDS SUMMARY | 2024-12-28 16:33 | XMS_ITS | Encounter Summary ---
Author Organization [facility] Address [facility] [address] [address] Phone Care Team Providers Care Exterior Designer Name Role Phone Rina Swenson MD Unavailable [...] 01/05/2025 11:00 AM EST Pre-Admission Testing [address] [address] Irineo Ruff MD [address] [place] [address] [email or web address] 01/10/2025 Procedure Pass [facility] Endoscopy Department [address] [place] [address] 01/10/2025 7:30 AM EST Hospital Encounter [facility] Endoscopy Department [address] [place] [address] Irineo Ruff MD [address] [place] [address] [email or web address] 01/10/2025 7:30 AM EST - 01/10/2025 8:15 AM EST Surgery [facility] Endoscopy Department [address] [place] [address] Irineo Ruff MD [address] [place] [address] [email or web address] [email or web address] 01/31/2025 1:00 PM EST Office Visit [facility] Cardiovascular Medicine 32 [facility], 5th Floor, [address] [place] [address] Karena Betancur MD 55 [facility] [address] [place] [address] [email or web address] Scheduled Procedures Name Priority Associated [...] documented as of this encounter Care Teams Exterior Designer Relationship Specialty Start Date End Date Laura Mock MD, DMD [address] [address] [email or web address] PCP - General Internal Medicine 06/04/21 11/11/23 Pcp, Unknown PCP - General 11/12/23 11/16/23 Laura Mock MD, DMD [address] [address] [email or web address] PCP - General Internal Medicine 11/17/23 12/28/23 Pcp, Unknown PCP - General 02/28/24 03/04/24 Nicole Newell MD [address] [place] [address] [phone] PCP - General 03/05/24 05/17/24 Laura Mock MD, DMD [address] [address] [email or web address] du PCP - General Internal Medicine 05/18/24 Rina Swenson MD Psychiatry 07/09/17 Laura Mock MD, DMD [address] [address] [email or web address] Partners Attributed Provider 09/01/21 07/03/23 Laura Mock MD, DMD [address] [address] [email or web address] du Insurance Assigned Provider 05/31/23 03/01/24 Jakob Bob MD 75 [facility] [place] [address] [email or web address] Cardiology 08/22/23 Jose Cruz MD [address] [place] [address] Cardiology 08/22/23 Laura Mock MD, DMD [address] [address] [email or web address] du Partners Attributed Provider 09/01/21 07/03/23 [facility] [phone]. Consulting Provider 08/22/23 [facility] Connect 12/24/23 03/11/24 Cyril Morales [address] [place] [address] Nurse Practitioner 02/27/24 documented as of this encounter Additional Source Comments The information contained in this document represents components of the legal health record. It is not the complete legal health record.[facility]
--- OUTSIDE RECORDS SUMMARY | 2024-12-28 16:33 | XMS_ITS | Patient Health Record ---
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
--- OUTSIDE RECORDS SUMMARY | 2024-12-28 16:33 | XMS_ITS | Encounter Summary ---
Author Organization [facility] Address [address] [place] [address] [place] [address] Phone Care Team Providers Care Floral Department Specialist Name Role Phone Artie Meehan MD Unavailable Rina Swenson MD Unavailable Laura Mock MD, DMD Primary Car e Provider Laura Mock MD, DMD Unavailable Laura Mock MD, DMD Unavailable Jakob Bob MD Unavailable [phone] Jose Cruz MD Unavailable Laura Mock MD, DMD Unavailable Pcp, Unknown Primary Care Provider UnavailLaura Ascencio MD, DMD Primary Car e Provider Pcp, Unknown Primary Care Provider UnavailNicole Arguello MD Primary Care Provide r Laura Mock MD, DMD Primary Car e Provider Encounter Details Date Type Department Care Team (Late st Contact Info) Description 09/17/2021 Procedure Pass [facility] [address] [place] [address] Social History Tobacco Use Types Packs/Day Years [...] Pre-Admission Testing [facility] 45 [facility] 2nd [place] [address] Irineo Ruff MD [address] [place] [address] [email or web address] 01/10/2025 Procedure Pass [facility] Endoscopy Department [address] [place] [address] 01/10/2025 7:30 AM EST Hospital Encounter [facility] Endoscopy Department [address] [place] [address] Irineo Ruff MD [address] [place] [address] [email or web address] 01/10/2025 7:30 AM EST - 01/10/2025 8:15 AM EST Surgery [facility] Endoscopy Department [address] [place] [address] Irineo Ruff MD [address] [place] [address] [place] [address] [email or web address] [email or web address] 01/31/2025 1:00 PM EST Office Visit [facility] Cardiovascular Medicine 32 [facility], 5th Floor, [address] [place] [address] Karena Betancur MD [address] [place] [address] [email or web address] Scheduled Procedures Name Priority Associated [...] documented as of this encounter Care Teams Floral Department Specialist Relationship Specialty Start Date End Date Laura Mock MD, DMD [address] [address] [email or web address] du PCP - General Internal Medicine 06/04/21 11/11/23 Pcp, Unknown PCP - General 11/12/23 11/16/23 Luara Mock MD, DMD [address] [address] [email or web address] PCP - General Internal Medicine 11/17/23 12/28/23 Pcp, Unknown PCP - General 02/28/24 03/04/24 Nicole Newell MD [address] [place] [address] [phone] PCP - General 03/05/24 05/17/24 Laura Mock MD, DMD [address] [address] [email or web address] PCP - General Internal Medicine 05/18/24 Artie Meehan MD [address] [place] [address] [place] [address] Internal Medicine 10/26/17 04/23/22 Rina Swenson MD [address] [place] [address] [place] [address] Psychiatry 07/09/17 Laura Mock MD, DMD [address] [address] [email or web address]. du Partners Attributed Provider 09/01/21 07/03/23 Laura Mock MD, DMD [address] [address] [email or web address]. du Insurance Assigned Provider 05/31/23 03/01/24 Jakob Bob MD [address] [place] [address] [place] [address] [email or web address] Cardiology 08/22/23 Jose Cruz MD [address] [place] [address], [address] [place] [address] Cardiology 08/22/23 Laura Mock MD, DMD [address] [address] [email or web address]. [email or web address] Partners Attributed Provider 09/01/21 07/03/23 [facility] [phone]. Consulting Provider 08/22/23 [facility] Connect 12/24/23 03/11/24 Cyril Morales [facility] [place] [address] Nurse Practitioner 02/27/24 documented as of this encounter Additional Source Comments The information contained in this document represents components of the legal health record. It is not the complete legal health record.[facility]
--- OUTSIDE RECORDS SUMMARY | 2024-12-28 16:33 | XMS_ITS | Encounter Summary ---
Author Organization [facility] Address [address] [address] Phone Care Team Providers Care Instrumentation Engineer Name Role Phone Rina Swenson MD Unavailable [phone] Laura Mock MD, DMD Primary Car e Provider Laura Mock MD, DMD Unavailable Laura Mock MD, DMD Unavailable Jakob Bob MD Unavailable [phone] Jose Cruz MD Unavailable [phone] Laura Mock MD, DMD Unavailable Pcp, Unknown Primary Care Provider UnavailLaura Ascencio MD, DMD Primary Car e Provider Pcp, Unknown Primary Care Provider UnavailNicole Arguello MD Primary Care Provide r Laura Mock MD, DMD Primary Car e Provider Encounter Details Date Type Department Care Team (Late st Contact Info) Description 10/06/2022 Anti-coag visit [facility] Anticoagulation Clinic [address] [place] [address] Abbie Prieto, PharmD [address] [place] [address] [email or web address] Social History Tobacco Use Types [...] EST Pre-Admission Testing [facility] 45 [facility] 2nd [place] [address] Irineo Ruff MD [address] [place] [address] [email or web address] 01/10/2025 Procedure Pass [facility] Endoscopy Department [address] [place] [address] 01/10/2025 7:30 AM EST Hospital Encounter [facility] Endoscopy Department [address] [place] [address] Irineo Ruff MD [address] [place] [address] [email or web address]@[facility] 01/10/2025 7:30 AM EST - 01/10/2025 8:15 AM EST Surgery [facility] Endoscopy Department [address] [place] [address] Irineo Ruff MD 75 [facility] [place] [address] [email or web address]@[facility] COLONOSCOPY 01/31/2025 1:00 PM EST Office Visit [facility] Medicine 32 [facility], 5th Floor, [address] [place] [address] Karena Betancur MD 55 [facility] [address] [place] [address] [email or web address] Scheduled Procedures Name Priority [...] End Date Laura Mock MD, DMD 1 [facility] [address] [place] [address] [email or web address] PCP - General Internal Medicine 06/04/21 11/11/23 Pcp, Unknown PCP - General 11/12/23 11/16/23 Laura Mock MD, DMD 1 [facility] [address] [place] [address] [email or web address] du PCP - General Internal Medicine 11/17/23 12/28/23 Pcp, Unknown PCP - General 02/28/24 03/04/24 [place] N[place] [address] [place] [address] PCP - General 03/05/24 05/17/24 Laura Mock MD, DMD [address] [address] [email or web address] du PCP - General Internal Medicine 05/18/24 Rian Swenson MD Psychiatry 07/09/17 Laura Mock MD, DMD [address] [address] [email or web address] Attributed Provider 09/01/21 07/03/23 Laura Mock MD, DMD [address] [address] [email or web address] du Insurance Assigned Provider 05/31/23 03/01/24 Jakob Bob MD [address] [place] [address] [place] [address] [email or web address] Cardiology 08/22/23 Jose Cruz MD [address] [place] [address], [address] [address] Cardiology 08/22/23 Laura Mock MD, DMD 1 [facility] [address] [place] [address] [email or web address] Partners Attributed Provider 09/01/21 07/03/23 [facility] [phone]. Consulting Provider 08/22/23 [facility] Connect 12/24/23 03/11/24 Cyril Morales [address] [place] [address] Nurse Practitioner 02/27/24 documented as of this encounter Additional Source Comments The information contained in this document represents components of the legal health record. It is not the complete legal health record.[facility]
--- OUTSIDE RECORDS SUMMARY | 2024-12-28 16:33 | XMS_ITS | Encounter Summary ---
Author Organization [facility] Address 399 [facility] [address] [place] [address] Phone Care Team Providers Care Porcelain Enamel Repairer Name Role Phone Rina Swenson MD Unavailable Laura Mock MD, DMD Unavailable Jakob Bob MD Unavailable [phone] Jose Cruz MD Unavailable Laura Mock MD, DMD Primary Car e Provider Pcp, Unknown Primary Care Provider Unavailmarco e Nicole Newell MD Primary Care Provide r Laura Mock MD, DMD Primary Car e Provider Encounter Details Date Type Department Care Team (Late st Contact Info) Description 12/04/2023 Procedure Pass [facility] Periop [address] [place] [address] Social History Tobacco Use Types Packs/Day Years [...] Description 01/05/2025 11:00 AM EST Pre-Admission Testing [address] [address] Irineo Ruff MD [address] [place] [address] [email or web address] 01/10/2025 Procedure Pass [facility] Endoscopy Department [address] [place] [address] 01/10/2025 7:30 AM EST Hospital Encounter [facility] Endoscopy Department [address] [place] [address] Irineo Ruff MD [address] [place] [address] [email or web address] 01/10/2025 7:30 AM EST - 01/10/2025 8:15 AM EST Surgery [facility] Endoscopy Department 75 [place] [address] Irineo Ruff MD 75 [facility] [place] [address] [email or web address] COLONOSCOPY 01/31/2025 1:00 PM EST Office Visit [facility] Cardiovascular Medicine 32 [facility], 5th Floor, [address] [place] [address] Karena Betancur MD 55 [facility] [address] [place] [address] [email or web address] Scheduled Procedures Name Priority Associated [...] as of this encounter Care Teams Porcelain Enamel Repairer Relationship Specialty Start Date End Date Laura Mock MD, DMD [address] [address] [email or web address] PCP - General Internal Medicine 11/17/23 12/28/23 Pcp, Unknown PCP - General 02/28/24 03/04/24 [place] [address] [address] PCP - General 03/05/24 05/17/24 Laura Mock MD, DMD [address] [address] [email or web address] PCP - General Internal Medicine 05/18/24 Rina Swenson MD Psychiatry 07/09/17 Laura Mock MD, DMD 1 [facility] [address] [place] [address] [email or web address]. du Insurance Assigned Provider 05/31/23 03/01/24 Jakob Bob MD 75 [facility] [place] [address] [email or web address] Cardiology 08/22/23 Jose Cruz MD 22 [facility] [address] [place] [address] Cardiology 08/22/23 [facility] [phone]. Consulting Provider 08/22/23 [facility] Connect 12/24/23 03/11/24 Cyril Morales [address] [place] [address] Nurse Practitioner 02/27/24 documented as of this encounter Additional Source Comments The information contained in this document represents components of the legal health record. It is not the complete legal health record.[facility]
--- OUTSIDE RECORDS SUMMARY | 2024-12-28 16:33 | XMS_ITS | Encounter Summary ---
Author Organization [facility] Address 399 [facility] [address] [place] [address] Phone Care Team Providers Care Embedded Systems Developer Name Role Phone Rina Swenson MD Unavailable Laura Mock MD, DMD Primary Car e Provider Laura Mock MD, DMD Unavailable Laura Mock MD, DMD Unavailable Jakob Bob MD Unavailable Jose Cruz MD Unavailable [phone] Laura Mock MD, DMD Unavailable Pcp, Unknown Primary Care Provider UnavailLaura Ascencio MD, DMD Primary Car e Provider Pcp, Unknown Primary Care Provider UnavailNicole Arguello MD Primary Care Provide r Laura Mock MD, DMD Primary Car e Provider Encounter Details Date Type Department Care Team (Late st Contact Info) Description 05/10/2022 Anti-coag visit [facility] Anticoagulation Clinic [address] [place], [place] [phone] [facility] [address] [place] [address] [email or web address] Social History Tobacco Use Types Packs/Day Years [...] Upcoming Encounters Date Type Department Care Team ([facility] st Contact Info) Description 01/05/2025 11:00 AM EST Pre-Admission Testing [address] [address] Irineo Ruff MD [address] [place] [address] [email or web address]@[facility] 01/10/2025 Procedure Pass [facility] Endoscopy Department [address] [place] [address] 01/10/2025 7:30 AM EST Hospital Encounter [facility] Endoscopy Department [address] [place] [address] Irineo Ruff MD [address] [place] [address] [email or web address]@[facility] 01/10/2025 7:30 AM EST - 01/10/2025 8:15 AM EST Surgery [facility] Endoscopy Department [address] [place] [address] Irineo Ruff MD [address] [place] [address] [email or web address]@[facility] COLONOSCOPY 01/31/2025 1:00 PM EST Office Visit [facility] Cardiovascular Medicine 32 [facility], 5th Floor, [address] [place] [address] Karena Betancur MD 55 [facility] [address] [place] [address] [email or web address] Scheduled Procedures Name Priority Associated [...] documented as of this encounter Care Teams Embedded Systems Developer Relationship Specialty Start Date End Date Laura Mock MD, DMD [address] [address] [email or web address] PCP - General Internal Medicine 06/04/21 11/11/23 Pcp, Unknown PCP - General 11/12/23 11/16/23 Laura Mock MD, DMD 1 [facility] [address] [place] [address] [email or web address] PCP - General Internal Medicine 11/17/23 12/28/23 Pcp, Unknown PCP - General 02/28/24 03/04/24 [place] [address] [address] PCP - General 03/05/24 05/17/24 Laura Mock MD, DMD [address] [address] [email or web address] du PCP - General Internal Medicine 05/18/24 Rina Swenson MD Psychiatry 07/09/17 Laura Mock MD, DMD [address] [address] [email or web address] Partners Attributed Provider 09/01/21 07/03/23 Laura Mock MD, DMD [address] [address] [email or web address] du Insurance Assigned Provider 05/31/23 03/01/24 Jakob Bob MD [address] [place] [address] [place] [address] [email or web address] Cardiology 08/22/23 Jose Cruz MD [address] [place] [address] Cardiology 08/22/23 Laura Mock MD, DMD [address] [address] [email or web address] Attributed Provider 09/01/21 07/03/23 [facility] [phone]. Consulting Provider 08/22/23 [facility] Connect 12/24/23 03/11/24 Cyril Morales [facility] [place] [address] Nurse Practitioner 02/27/24 documented as of this encounter Additional Source Comments The information contained in this document represents components of the legal health record. It is not the complete legal health record.[facility]
--- OUTSIDE RECORDS SUMMARY | 2024-12-28 16:33 | XMS_ITS | Encounter Summary ---
Author Organization [facility] Address [address] [facility] [address] [place] [address] Phone Care Team Providers Care Multiple Drill Operator Name Role Phone Rina Swenson MD Unavailable Laura Mock MD, DMD Primary Car e Provider Laura Mock MD, DMD Unavailable Laura Mock MD, DMD Unavailable Jakob Bob MD Unavailable [phone] Jose Cruz MD Unavailable Laura Mock MD, DMD Unavailable Pcp, Unknown Primary Care Provider UnavailLaura Ascencio MD, DMD Primary Car e Provider Pcp, Unknown Primary Care Provider UnavailNicole Arguello MD Primary Care Provide r Laura Mock MD, DMD Primary Car e Provider Encounter Details Date Type Department Care Team (Late st Contact Info) Description 10/09/2022 Procedure Pass [facility] CT Imaging, [place] [address] [place] [address] Social History Tobacco Use Types Packs/Day Years [...] Description 01/05/2025 11:00 AM EST Pre-Admission Testing [facility] [address] [facility] [address] [place] [address] Irineo Ruff MD [address] [place] [address] [email or web address] 01/10/2025 Procedure Pass [facility] Endoscopy Department [address] [place] [address] 01/10/2025 7:30 AM EST Hospital Encounter [facility] Endoscopy Department [address] [place] [address] Irineo Ruff MD [address] [place] [address] [email or web address] 01/10/2025 7:30 AM EST - 01/10/2025 8:15 AM EST Surgery [facility] Endoscopy Department [address] [place] [address] Irineo Ruff MD [address] [place] [address] [email or web address] COLONOSCOPY 01/31/2025 1:00 PM EST Office [place] [facility] [place] [address] [facility], 5th Floor, [address] [place] [address] Karena Betancur MD [address] [facility] [address] [place] [address] [email or web address] Scheduled Procedures Name [...] documented as of this encounter Care Teams Multiple Drill Operator Relationship Specialty Start Date End Date Laura Mock MD, DMD [address] [address] [email or web address] du PCP - General Internal Medicine 06/04/21 11/11/23 Pcp, Unknown PCP - General 11/12/23 11/16/23 Laura Mock MD, DMD [address] [address] [email or web address] du PCP - General Internal Medicine 11/17/23 12/28/23 Pcp, Unknown PCP - General 02/28/24 03/04/24 [place] [address] [address] PCP - General 03/05/24 05/17/24 Laura Mock MD, DMD [address] [address] [email or web address] du PCP - General Internal Medicine 05/18/24 Rina Swenson MD Psychiatry 07/09/17 Laura Mock MD, DMD [address] [address] [email or web address]. du Partners Attributed Provider 09/01/21 07/03/23 Laura Mock MD, DMD [address] [address] [email or web address] du Insurance Assigned Provider 05/31/23 03/01/24 Jakob Bob MD [address] [facility] [place] [address] [email or web address] Cardiology 08/22/23 Jose Cruz MD [address] [place] [address], [address] [place] [address] Cardiology 08/22/23 Laura Mock MD, DMD [address] [address] [email or web address]. du Partners Attributed Provider 09/01/21 07/03/23 [facility] [phone]. Consulting Provider 08/22/23 [facility] Connect 12/24/23 03/11/24 Cyril Morales [address] [place] [address] Nurse Practitioner 02/27/24 documented as of this encounter Additional Source Comments The information contained in this document represents components of the legal health record. It is not the complete legal health record.[facility]
--- OUTSIDE RECORDS SUMMARY | 2024-12-28 16:34 | XMS_ITS | Encounter Summary ---
Author Organization [facility] Address Formerly [facility] [employer] [facility] [address] [place] [address] Phone Care Team Providers Care Men'S Golf Coach Name Role Phone Artie Meehan MD Primary Care Provider Artie Meehan MD Unavailable [phone] Rina Swenson MD Unavailable [phone] Laura Mock MD, DMD Primary Car e Provider Laura Mock MD, DMD Unavailable Laura Mock MD, DMD Unavailable Jakob Bob MD Unavailable [phone] Jose Cruz MD Unavailable Laura Mock MD, DMD Unavailable Pcp, Unknown Primary Care Provider UnavailLaura Ascencio MD, DMD Primary Car e Provider Pcp, Unknown Primary Care Provider UnavailNicole Arguello MD Primary Care Provide r Laura Mock MD, DMD Primary Car e Provider Encounter Details Date Type Department Care Team (Late st Contact Info) Description 05/23/2018 Transcribe Orders [facility] [address] [place] [address] Artie Meehan MD [address] [place] [address] [place] [address] 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 Social History [...] 01/05/2025 11:00 AM EST Pre-Admission Testing [address] 2[address] [place] [address] Irineo Ruff MD [address] [place] [address] [place] [address] [email or web address] 01/10/2025 Procedure Pass [facility] Endoscopy Department [address] [place] [address] 01/10/2025 7:30 AM EST Hospital Encounter [facility] Endoscopy Department [address] [place] [address] Irineo Ruff MD [address] [place] [address] [email or web address] 01/10/2025 7:30 AM EST - 01/10/2025 8:15 AM EST Surgery [facility] Endoscopy Department [address] [place] [address] Irineo Ruff MD [address] [place] [address] [place] [address] [email or web address] COLONOSCOPY 01/31/2025 1:00 PM EST Office Visit [facility] [place] Cardiovascular Medicine [address] 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 documented in this encounter Results * (ABNORMAL) PT-INR (05/23/2018 11:36 AM EDT) PT 14.8(H) 10.2 - 12.9 sec [facility] INR 1.3(H) 0.9 - 1.1 [facility] Comment:Therapeutic range fo r oral Vitamin K antagonists: 2.0-3.5 Blood 05/23/2018 11:3 6 AM EDT 05/23/2018 11:39 AM EDT Artie Meehan MD LAB BLOOD BKR ORDERABLES Final Result Performing Organization Address City/State/[facility] Co de Phone Number [address] [address] documented in this encounter Visit Diagnoses Diagnosis 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 Abnormal colonoscopy documented in this encounter Additional Health Concerns Infection Onset Date Last Indicated Resolved Time CoV-Presumed 03/23/2022 03/23/2022 04/13/2022 1:23 AM EST CoV-Risk 11/12/2023 11/12/2023 11/12/2023 5:12 PM EDT COVID-19 11/12/2023 11/12/2023 12/03/2023 1:21 AM EDT documented as of this encounter Care Teams Men'S Golf Coach Relationship Specialty Start Date End Date Artie Meehan MD [address] [place] [address] [place] [address] PCP - General Internal Medicine 10/26/17 06/03/21 Laura Mock MD, DMD 1 [facility] [address] [place] [address] [email or web address] du PCP - General Internal Medicine 06/04/21 11/11/23 Pcp, Unknown PCP - General 11/12/23 11/16/23 Laura Mock MD, DMD [address] [address] [email or web address] du PCP - General Internal Medicine 11/17/23 12/28/23 Pcp, Unknown PCP - General 02/28/24 03/04/24 Nicole Newell MD [address] [place] [address] PCP - General 03/05/24 05/17/24 Laura Mock MD, DMD [address] [address] [email or web address] du PCP - General Internal Medicine 05/18/24 Artie Meehan MD [address] [place] [address] [place] [address] Internal Medicine 10/26/17 04/23/22 Rina Swenson MD [address] [place] [address] [place] [address] Psychiatry 07/09/17 Laura Mock MD, DMD [address] [address] [email or web address] Partners Attributed Provider 09/01/21 07/03/23 Laura Mock MD, DMD [address] [address] [email or web address] du Insurance Assigned Provider 05/31/23 03/01/24 Jakob Bob MD [address] [place] [address] [email or web address] Cardiology 08/22/23 Jose Cruz MD [address] [place] [address] Cardiology 08/22/23 Laura Mock MD, DMD [address] [address] [email or web address] Partners Attributed Provider 09/01/21 07/03/23 [facility] [phone]. Consulting Provider 08/22/23 [facility] Connect 12/24/23 03/11/24 Cyril Morales [address] [place] [address] Nurse Practitioner 02/27/24 documented as of this encounter Additional Source Comments The information contained in this document represents components of the legal health record. It is not the complete legal health record.[facility]
--- OUTSIDE RECORDS SUMMARY | 2024-12-28 16:34 | XMS_ITS | Encounter Summary ---
Author Organization [facility] Address [facility] Head Held High [facility] [address] [place] [address] Phone Care Team Providers Care Floor Sander Name Role Phone Artie Meehan MD Primary Care Provider Artie Meehan MD Unavailable [phone] Rina Swenson MD Unavailable Laura Mock MD, DMD Primary Car e Provider Laura Mock MD, DMD Unavailable Laura Mock MD, DMD Unavailable Jakob Bob MD Unavailable [phone] Jose Cruz MD Unavailable Laura Mock MD, DMD Unavailable Pcp, Unknown Primary Care Provider UnavailLaura Ascencio MD, DMD Primary Car e Provider Pcp, Unknown Primary Care Provider UnavailNicole Arguello MD Primary Care Provide r Laura Mock MD, DMD Primary Car e Provider Encounter Details Date Type Department Care Team (Late st Contact Info) Description 01/06/2018 Procedure Pass [facility] [address] [place] [address] Social History Tobacco Use Types Packs/Day Years [...] Description 01/05/2025 11:00 AM EST Pre-Admission Testing [address] 2nd [place] [address] Irineo Ruff MD [address] [place] [address] [email or web address] 01/10/2025 Procedure Pass [facility] Endoscopy Department [address] [place] [address] 01/10/2025 7:30 AM EST Hospital Encounter [facility] Endoscopy Department [address] [place] [address] Irineo Ruff MD [address] [place] [address] [email or web address] 01/10/2025 7:30 AM EST - 01/10/2025 8:15 AM EST Surgery [facility] Endoscopy Department [address] [place] [address] Irineo Ruff MD [address] [place] [address] [email or web address] COLONOSCOPY 01/31/2025 1:00 PM EST Office Visit [facility] [place] Cardiovascular Medicine [address], 5th Floor, [address] [place] [address] Karena Betancur MD [address] [place] [address] [email or web address] Scheduled Procedures Name Priority Associated [...] documented as of this encounter Care Teams Floor Sander Relationship Specialty Start Date End Date Artie Meehan MD [address] [place] [address] PCP - General Internal Medicine 10/26/17 06/03/21 Laura Mock MD, DMD [address] [address] [email or web address] PCP - General Internal Medicine 06/04/21 11/11/23 Pcp, Unknown PCP - General 11/12/23 11/16/23 Laura Mock MD, DMD [address] [address] [email or web address] PCP - General Internal Medicine 11/17/23 12/28/23 Pcp, Unknown PCP - General 02/28/24 03/04/24 [place] [address] [place] [address] PCP - General 03/05/24 05/17/24 Laura Mock MD, DMD [address] [address] [email or web address] du PCP - General Internal Medicine 05/18/24 Artie Meehan MD [address] [place] [address] Dr [address] [place] [address] Internal Medicine 10/26/17 04/23/22 Rina Swenson MD [address] [place] [address] Dr [address]ior [address] [place] [address] Psychiatry 07/09/17 Laura Mock MD, DMD [address] [address] [email or web address] du Partners Attributed Provider 09/01/21 07/03/23 Laura Mock MD, DMD [address] [address] [email or web address] du Insurance Assigned Provider 05/31/23 03/01/24 Jakob Bob MD [address] [place] [address] [address] [place] [address] [email or web address] Cardiology 08/22/23 Jose Cruz MD [address] [place] [address], [address] [place] [address] Cardiology 08/22/23 Laura Mock MD, DMD 1 [facility] [address] [place] [address] [email or web address] Partners Attributed Provider 09/01/21 07/03/23 [facility] [phone]. Consulting Provider 08/22/23 [facility] Connect 12/24/23 03/11/24 Cyril Morales [facility] [place] [address] Nurse Practitioner 02/27/24 documented as of this encounter Additional Source Comments The information contained in this document represents components of the legal health record. It is not the complete legal health record.[facility]
--- OUTSIDE RECORDS SUMMARY | 2024-12-28 16:34 | XMS_ITS | Encounter Summary ---
Author Organization [facility] Address [facility] [address] [place] [address] Phone Care Team Providers Care Nursing Staff Development Coordinator Name Role Phone Artie Meehan MD Primary Care Provider Artie Meehan MD Unavailable [phone] Rina Swenson MD Unavailable Laura Mock MD, [...] (GI/) Daryn Moyer MD Phone: tel: fax: mailto:[email or web address] Referral ID Status Reason Start Date Expiration Date Visits Re quested Visits Authorized [id number] Closed 12/24/2017 12/24/2018 1 1 Encounter Details Date Type Department Care Team ([facility] Contact Info) Description 12/24/2017 Ancillary Orders [facility] Urology [address] [place], [place] [id number] [place] [address] Daryn Moyer MD [address] [place] [address] 113 [place] [address] [email or web address] Social History Tobacco Use [...] Encounters Date Type Department Care Team ([facility] Contact Info) Description 01/05/2025 11:00 AM EST Pre-Admission Testing [facility] [place] [facility] 2nd [place] [address] Irineo Ruff MD [address] [place] [address] [place] [address] [email or web address] 01/10/2025 Procedure Pass [facility] Endoscopy Department [address] [place] [address] 01/10/2025 7:30 AM EST Hospital Encounter [facility] Endoscopy Department [address] [place] [address] Irineo Ruff MD [address] [facility] [place] [address] [email or web address] 01/10/2025 7:30 AM EST - 01/10/2025 8:15 AM EST Surgery [facility] Endoscopy Department [address] [place] [address] Irineo Ruff MD [address] [facility] [place] [address] [email or web address] COLONOSCOPY 01/31/2025 1:00 PM EST Office Visit [facility] Cardi[place] Medicine [address] [facility], 5th Floor, [address] [place] [address] Karena Betancur MD [address] [address] [email or web address] Scheduled [...] documented as of this encounter Care Teams Nursing Staff Development Coordinator Relationship Specialty Start Date End Date Artie Meehan MD [address] [place] [address] [place] [address] PCP - General Internal Medicine 10/26/17 06/03/21 Laura Mock MD, DMD 1 [facility] [address] [place] [address] [email or web address] du PCP - General Internal Medicine 06/04/21 11/11/23 Pcp, Unknown PCP - General 11/12/23 11/16/23 Laura Mock MD, DMD 1 [facility] [address] [place] [address] [email or web address] du PCP - General Internal Medicine 11/17/23 12/28/23 Pcp, Unknown PCP - General 02/28/24 03/04/24 Nicole Newell MD [address] [place] [address] PCP - General 03/05/24 05/17/24 Laura Mock MD, DMD [address] [address] [email or web address] du PCP - General Internal Medicine 05/18/24 Artie Meehan MD [address] [place] [address] [place] [address] Internal Medicine 10/26/17 04/23/22 Rina Swenson MD [address] [place] [address] [place] [address] Psychiatry 07/09/17 Laura Mock MD, DMD [address] [address] [email or web address] du Partners Attributed Provider 09/01/21 07/03/23 Laura Mock MD, DMD [address] [address] [email or web address]. du Insurance Assigned Provider 05/31/23 03/01/24 Jakob Bob MD [address] [place] [address] [email or web address] Cardiology 08/22/23 Jose Cruz MD [address] [place] [address] [email or web address] Cardiology 08/22/23 Laura Mock MD, DMD [address] [address] [email or web address] du Partners Attributed Provider 09/01/21 07/03/23 [facility] [phone]. Consulting Provider 08/22/23 [facility] Connect 12/24/23 03/11/24 Cyril Morales [address] [place] [address] Nurse Practitioner 02/27/24 documented as of this encounter Additional Source Comments The information contained in this document represents components of the legal health record. It is not the complete legal health record.[facility]
--- OUTSIDE RECORDS SUMMARY | 2024-12-28 16:34 | XMS_ITS | Encounter Summary ---
Author Organization [facility] Address [facility] [employer] [facility] [address] [place] [address] Phone Care Team Providers Care Coreroom Foundry Laborer Name Role Phone Artie Meehan MD Primary Care Provider Artie Meehan MD Unavailable [phone] Rnia Swenson MD Unavailable Laura Mock MD, DMD Primary Car e Provider Laura Mock MD, DMD Unavailable Laura Mock MD, DMD Unavailable Jakob Bob MD Unavailable [phone] Jose Cruz MD Unavailable Laura Mock MD, DMD Unavailable Pcp, Unknown Primary Care Provider UnavailLaura Ascencio MD, DMD Primary Car e Provider Pcp, Unknown Primary Care Provider UnavailNicole Arguello MD Primary Care Provide r Laura Mock MD, DMD Primary Car e Provider Encounter Details Date Type Department Care Team (Late st Contact Info) Description 10/26/2017 Procedure Pass [facility], Ct Scan - [address] [address] Social History Tobacco Use Types Packs/Day Years [...] 01/05/2025 11:00 AM EST Pre-Admission Testing [address] 2nd [place] [address] Irineo Ruff MD [address] [place] [address] [place] [address] [email or web address] 01/10/2025 Procedure Pass [facility] Endoscopy Department [address] [place] [address] 01/10/2025 7:30 AM EST Hospital Encounter [facility] Endoscopy Department [address] [place] [address] Irineo Ruff MD [address] [place] [address] [place] [address] [email or web address] 01/10/2025 7:30 AM EST - 01/10/2025 8:15 AM EST Surgery [facility] Endoscopy Department [address] [place] [address] Irineo Ruff MD [address] [place] [address] [email or web address] [email or web address] 01/31/2025 1:00 PM EST Office Visit [facility] [place] [address] [place] [address], 5th Floor, [address] [place] [address] Karena Betancur MD [address] [place] [address] [email or web address] Scheduled Procedures Name Priority [...] documented as of this encounter Care Teams Coreroom Foundry Laborer Relationship Specialty Start Date End Date Artie Meehan MD [address] [place] [address] PCP - General Internal Medicine 10/26/17 06/03/21 Laura Mock MD, DMD [address] [address] [email or web address] PCP - General Internal Medicine 06/04/21 11/11/23 Pcp, Unknown PCP - General 11/12/23 11/16/23 Laura Mock MD, DMD [address] [address] [email or web address] PCP - General Internal Medicine 11/17/23 12/28/23 Pcp, Unknown PCP - General 02/28/24 03/04/24 [place] [address] [place] [address] PCP - General 03/05/24 05/17/24 Laura Mock MD, DMD [address] [address] [email or web address] du PCP - General Internal Medicine 05/18/24 Artie Meehan MD [address] [place] [address] Dr [address] [place] [address] Internal Medicine 10/26/17 04/23/22 Rina Swenson MD [address] [place] [address] Dr [address] [place] [address] Psychiatry 07/09/17 Laura Mock MD, DMD [address] [address] [email or web address] du Partners Attributed Provider 09/01/21 07/03/23 Laura Mock MD, DMD [address] [address] [email or web address] du Insurance Assigned Provider 05/31/23 03/01/24 Jakob Bob MD [address] [place], [place] [address] [place] [address] [email or web address] Cardiology 08/22/23 Jose Cruz MD [address] [place] [address], [address] [place] [address] Cardiology 08/22/23 Laura Mock MD, DMD 1 [facility] [address] [place] [address] [email or web address] Partners Attributed Provider 09/01/21 07/03/23 [facility] [phone]. Consulting Provider 08/22/23 [facility] Connect 12/24/23 03/11/24 Cyril Morales [address] [place] [address] Nurse Practitioner 02/27/24 documented as of this encounter Additional Source Comments The information contained in this document represents components of the legal health record. It is not the complete legal health record.[facility]
--- OUTSIDE RECORDS SUMMARY | 2024-12-28 16:34 | XMS_ITS | Encounter Summary ---
Author Organization [facility] Address Critical access hospital [facility] [address] [place] [address] Phone Care Team Providers Care Foot Specialist Name Role Phone Artie Meehan MD Primary Care Provider Artie Meehan MD Unavailable [phone] Rina Swenson MD Unavailable Laura Mock MD, DMD Primary Car e Provider Laura Mock MD, DMD Unavailable Laura Mock MD, DMD Unavailable Jakob Bob MD Unavailable Jose Cruz MD Unavailable [phone] Laura Mock MD, DMD Unavailable Pcp, Unknown Primary Care Provider UnavailLaura Ascencio MD, DMD Primary Car e Provider Pcp, Unknown Primary Care Provider UnavailNicole Arguello MD Primary Care Provide r Laura Mock MD, DMD Primary Car e Provider Encounter Details Date Type Department Care Team (Late st Contact Info) Description 11/27/2018 Transcribe Orders [facility] [address] [place] [address] Artie Meehan MD [address] [place] [address] [place] [address] Social History Tobacco Use Types Packs/Day Years [...] 01/05/2025 11:00 AM EST Pre-Admission Testing [address] [address] Irineo Ruff MD [address] [place] [address] [email or web address] 01/10/2025 Procedure Pass [facility] Endoscopy Department [address] [place] [address] 01/10/2025 7:30 AM EST Hospital Encounter [facility] Endoscopy Department [address] [place] [address] Irineo Ruff MD [address] [place] [address] [email or web address] 01/10/2025 7:30 AM EST - 01/10/2025 8:15 AM EST Surgery [facility] Endoscopy Department [address] [place] [address] Irineo Ruff MD [address] [place] [address] [place] [address] [email or web address] 01/31/2025 1:00 PM EST Office Visit [facility] Cardiovascular Medicine 32 [facility], 5th Floor, [address] [place] [address] Karena Betancur MD [address] [facility] [address] [place] [address] [email or web address] Scheduled Procedures Name Priority [...] documented as of this encounter Care Teams Foot Specialist Relationship Specialty Start Date End Date Artie Meehan MD [address] [place] [address] [place] [address] PCP - General Internal Medicine 10/26/17 06/03/21 Laura Mock MD, DMD [address] [address] [email or web address] PCP - General Internal Medicine 06/04/21 11/11/23 Pcp, Unknown PCP - General 11/12/23 11/16/23 Laura Mock MD, DMD [address] [address] [email or web address] PCP - General Internal Medicine 11/17/23 12/28/23 Pcp, Unknown PCP - General 02/28/24 03/04/24 [place] [address] [address] PCP - General 03/05/24 05/17/24 Laura Mock MD, DMD [address] [address] [email or web address] PCP - General Internal Medicine 05/18/24 Artie Meehan MD [address] [place] [address] Dr Dior [address] [place] [address] Internal Medicine 10/26/17 04/23/22 Rina Swenson MD [address] [place] [address] Dr Dior [address] [place] [address] Psychiatry 07/09/17 Laura Mock MD, DMD [address] [address] [email or web address] Attributed Provider 09/01/21 07/03/23 Laura Mock MD, DMD [address] [address] [email or web address] Insurance Assigned Provider 05/31/23 03/01/24 Jakob Bob MD [address] [place], [place] [address] [place] [address] [email or web address] Cardiology 08/22/23 Jose Cruz MD [address] [place] [address] [address] Cardiology 08/22/23 Laura Mock MD, DMD 1 [facility] [address] [place] [address] [email or web address] Partners Attributed Provider 09/01/21 07/03/23 [facility] [phone]. Consulting Provider 08/22/23 [facility] Connect 12/24/23 03/11/24 Cyril Morales [address] [place] [address] Nurse Practitioner 02/27/24 documented as of this encounter Additional Source Comments The information contained in this document represents components of the legal health record. It is not the complete legal health record.[facility]
--- OUTSIDE RECORDS SUMMARY | 2024-12-28 16:34 | XMS_ITS | Encounter Summary ---
Author Organization [facility] Address [facility] [employer] [facility] [address] [place] [address] Phone Care Team Providers Care Transformer Builder Name Role Phone Artie Meehan MD Primary Care Provider Artie Meehan MD Unavailable [phone] Rina Swenson MD Unavailable [phone] Laura Mock MD, DMD Primary Car e [...] Info) Description 12/11/2018 Ancillary Orders Virtual Department [address] [place] [address] Artie Meehan MD [address] [place] [address] [place] [address] Breast screening Social History Tobacco Use Types [...] 01/05/2025 11:00 AM EST Pre-Admission Testing [address] [address] Irineo Ruff MD [address] [place] [address] [email or web address] 01/10/2025 Procedure Pass [facility] Endoscopy Department [address] [place] [address] 01/10/2025 7:30 AM EST Hospital Encounter [facility] Endoscopy Department [address] [place] [address] Irineo Ruff MD [address] [place] [address] [email or web address] 01/10/2025 7:30 AM EST - 01/10/2025 8:15 AM EST Surgery [facility] Endoscopy Department [address] [place] [address] Irineo Ruff MD [address] [place] [address] [place] [address] [email or web address] [email or web address] 01/31/2025 1:00 PM EST Office Visit [facility] Cardiovascular Medicine 32 [facility], 5th Floor, [address] [place] [address] Karena Betancur MD [address] [facility] [address] [place] [address] [email or web address] [...] lowers the sensitivity of mammography. POS - [id number] Narrative 01/05/2019 1:52 PM EST Full-field digital [...] whichlowers the sensitivity of mammography. POS - [id number] Artie Meehan MD IMG MG EXAMS Final [...] documented as of this encounter Care Teams Transformer Builder Relationship Specialty Start Date End Date Artie Meehan MD [address] [place] [address] [place] [address] PCP - General Internal Medicine 10/26/17 06/03/21 Laura Mock MD, DMD [address] [address] [email or web address] PCP - General Internal Medicine 06/04/21 11/11/23 Pcp, Unknown PCP - General 11/12/23 11/16/23 Laura Mock MD, DMD [address] [address] [email or web address] PCP - General Internal Medicine 11/17/23 12/28/23 Pcp, Unknown PCP - General 02/28/24 03/04/24 [place] [address] [address] PCP - General 03/05/24 05/17/24 Laura Mock MD, DMD [address] [address] [email or web address] PCP - General Internal Medicine 05/18/24 Artie Meehan MD [address] [place] [address] Dr [address] [place] [address] Internal Medicine 10/26/17 04/23/22 Rina Swenson MD [address] [place] [address] Dr Dior [address] [place] [address] Psychiatry 07/09/17 Laura Mock MD, DMD [address] [address] [email or web address] Partners Attributed Provider 09/01/21 07/03/23 Laura Mock MD, DMD [address] [address] [email or web address] du Insurance Assigned Provider 05/31/23 03/01/24 Jakob Bob MD [address] [place] [address] [place] [address] [email or web address] Cardiology 08/22/23 Jose Cruz MD 22 [facility], [address] [place] [address] [email or web address] Cardiology 08/22/23 Laura Mock MD, DMD [address] [place] [address] [address] [place] [address] [email or web address] Partners Attributed Provider 09/01/21 07/03/23 [place] [facility] [phone]. Consulting Provider 08/22/23 [facility] Connect 12/24/23 03/11/24 Cyril Morales [address] [place] [address] Nurse Practitioner 02/27/24 documented as of this encounter Additional Source Comments The information contained in this document represents components of the legal health record. It is not the complete legal health record.[facility]
--- OUTSIDE RECORDS SUMMARY | 2024-12-28 16:34 | XMS_ITS | Encounter Summary ---
Author Organization [facility] Address [facility] [address] [place] [address] Phone Care Team Providers Care Housetrailer Servicer Name Role Phone Artie Meehan MD Primary Care Provider Artie Meehan MD Unavailable [phone] Rina Swenson MD Unavailable Laura Mock MD, DMD Primary Car e Provider Laura Mock MD, DMD Unavailable Laura Mock MD, DMD Unavailable Jakob Bbo MD Unavailable [phone] Jose Cruz MD Unavailable Laura Mock MD, DMD Unavailable Pcp, Unknown Primary Care Provider UnavailLaura Ascencio MD, DMD Primary Car e Provider Pcp, Unknown Primary Care Provider UnavailNicole Arguello MD Primary Care Provide r Laura Mock MD, DMD Primary Car e Provider Encounter Details Date Type Department Care Team (Late st Contact Info) Description 12/24/2017 Procedure Pass [facility] [address] [place] [address] Social History Tobacco Use Types Packs/Day Years [...] 01/05/2025 11:00 AM EST Pre-Admission Testing [address] [address] Irineo Ruff MD [address] [place] [address] [email or web address] 01/10/2025 Procedure Pass [facility] Endoscopy Department [address] [place] [address] 01/10/2025 7:30 AM EST Hospital Encounter [facility] Endoscopy Department [address] [place] [address] Irineo Ruff MD [address] [place] [address] [email or web address] 01/10/2025 7:30 AM EST - 01/10/2025 8:15 AM EST Surgery [facility] Endoscopy Department [address] [place] [address] Irineo Ruff MD 75 [facility] [place] [address] [email or web address] 01/31/2025 1:00 PM EST Office Visit [facility] Cardi[place] Medicine [address] [facility], 5th Floor, [address] [place] [address] Karena Betancur MD 55 [facility] [address] [place] [address] [email or web address] Scheduled Procedures Name [...] documented as of this encounter Care Teams Housetrailer Servicer Relationship Specialty Start Date End Date Artie Meehan MD [address] [place] [address] [place] [address] PCP - General Internal Medicine 10/26/17 06/03/21 Laura Mock MD, DMD 1 [facility] [address] [place] [address] [email or web address] PCP - General Internal Medicine 06/04/21 11/11/23 Pcp, Unknown PCP - General 11/12/23 11/16/23 Laura Mock MD, DMD 1 [facility] [address] [place] [address] [email or web address] PCP - General Internal Medicine 11/17/23 12/28/23 Pcp, Unknown PCP - General 02/28/24 03/04/24 [place] [address] [address] PCP - General 03/05/24 05/17/24 Laura Mock MD, DMD [address] [address] [email or web address] PCP - General Internal Medicine 05/18/24 Artie Meehan MD [address] [place] [address] Dr [address] [place] [address] Internal Medicine 10/26/17 04/23/22 Rina Swenson MD [address] [place] [address] [address] Psychiatry 07/09/17 Laura Mock MD, DMD [address] [address] [email or web address] Partners Attributed Provider 09/01/21 07/03/23 Laura Mock MD, DMD [address] [address] [email or web address] Insurance Assigned Provider 05/31/23 03/01/24 Jakob Bob MD [address] [place] [address] [place] [address] [email or web address] Cardiology 08/22/23 Jose Cruz MD [address] [facility] [address] [place] [address] Cardiology 08/22/23 Laura Mock MD, DMD [address] [place] [address] [address] [place] [address] [email or web address] Partners Attributed Provider 09/01/21 07/03/23 [place] [facility] [phone]. Consulting Provider 08/22/23 [facility] Connect 12/24/23 03/11/24 Cyril Morales [address] [place] [address] Nurse Practitioner 02/27/24 documented as of this encounter Additional Source Comments The information contained in this document represents components of the legal health record. It is not the complete legal health record.[facility]
--- OUTSIDE RECORDS SUMMARY | 2024-12-28 16:34 | XMS_ITS | Encounter Summary ---
Author Organization [facility] Address [facility] [employer] [facility] [address] [place] [address] Phone Care Team Providers Care Motor Brakeman Name Role Phone Artie Meehan MD Primary Care Provider Artie Meehan MD Unavailable [phone] Rina Swenson MD Unavailable Laura Mock MD, [...] Interpretation) Daryn Moyer MD Phone: tel: fax: mailto:[email or web address] Referral ID Status Reason Start Date Expiration Date Visits Re quested Visits Authorized [id number] Closed 01/06/2018 01/06/2019 1 1 Encounter Details Date Type Department Care Team (Late st Contact Info) Description 01/06/2018 Transcribe Orders [facility] [address] [place] [address] Shira Mann [address] [place] [address] [email or web address] Social History Tobacco Use Types Packs/Day [...] Description 01/05/2025 11:00 AM EST [facility] 45 [facility] 2nd [place] [address] Irineo Ruff MD 75 [facility] [address] [email or web address] 01/10/2025 Procedure Pass [facility] Endoscopy Department [address] [place] [address] 01/10/2025 7:30 AM EST Hospital Encounter [facility] Endoscopy Department [address] [place] [address] Irineo Ruff MD 75 [facility] [address] [email or web address] 01/10/2025 7:30 AM EST - 01/10/2025 8:15 AM EST Surgery [facility] Endoscopy Department [address] [place] [address] Irineo Ruff MD [address] [place] [address] [place] [address] [email or web address] [email or web address] 01/31/2025 1:00 PM EST [facility] [place] 32 [facility], 5th Floor, [address] [place] [address] Karena Betancur MD [address] [address] [email or web address] Scheduled Procedures Name Priority Associated Diagnoses Date/Ti me COLONOSCOPY Abnormal colonoscopy 01/10/2025 7:30 AM EST documented as of this encounter Results * MRI Lower Extremity Outside (No Interpretation) (01/06/2018 11:46 AM EST) Narrative ALYSHA_[facility] - 01/06/2018 11:46 AM EST This [...] documented as of this encounter Care Teams Motor Brakeman Relationship Specialty Start Date End Date Artie Meehan MD [address] [place] [address] [place] [address] PCP - General Internal Medicine 10/26/17 06/03/21 Laura Mock MD, DMD 1 [facility] [address] [place] [address] [email or web address] PCP - General Internal Medicine 06/04/21 11/11/23 Pcp, Unknown PCP - General 11/12/23 11/16/23 Laura Mock MD, DMD [address] [address] [email or web address] PCP - General Internal Medicine 11/17/23 12/28/23 Pcp, Unknown PCP - General 02/28/24 03/04/24 Nicole Newell MD [address] [place] [address] PCP - General 03/05/24 05/17/24 Larua Mock MD, DMD [address] [address] [email or web address] PCP - General Internal Medicine 05/18/24 Artie Meehan MD [address] [place] [address] [place] [address] Internal Medicine 10/26/17 04/23/22 Rina Swenson MD [address] [place] [address] [place] [address] Psychiatry 5/16/18 Laura Mock MD, DMD [address] [address] [email or web address] Attributed Provider 09/01/21 07/03/23 Laura Mock MD, DMD [address] [address] [email or web address] Insurance Assigned Provider 05/31/23 03/01/24 Jakob Bob MD [address] [place] [address] [email or web address] Cardiology 08/22/23 Jose Cruz MD [address] [place] [address] [email or web address] Cardiology 08/22/23 Laura Mock MD, DMD [address] [address] [email or web address] Attributed Provider 09/01/21 07/03/23 [place] [facility] [phone]. Consulting Provider 08/22/23 [facility] Connect 12/24/23 03/11/24 Cyril Morales [address] [place] [address] Nurse Practitioner 02/27/24 documented as of this encounter Additional Source Comments The information contained in this document represents components of the legal health record. It is not the complete legal health record.[facility]
--- OUTSIDE RECORDS SUMMARY | 2024-12-28 16:34 | XMS_ITS | Encounter Summary ---
Author Organization [facility] Address [facility] [place] [address] [address] Phone Care Team Providers Care Adjustment Supervisor Name Role Phone Tasha [place] MD Primary Care Provider Artie Meehan MD Primary Care Provider [phone] Artie Meehan MD Primary Care Provider [phone] Artie Meehan MD Unavailable Meera Campos Unavailable [phone] Amber Raygoza NP Unavailable Elvis Rendon MD Unavailable [phone] Modesta Rivera MD Unavailable [phone] Carlin Newman MD Unavailable [phone] Patti Bello MD Unavailable [phone] Lucila Melendez MD Unavailable [phone] Juan J Avitia DO Unavailable [phone] Tasha [place] MD Unavailable Mekhi Hernandez MD Unavailable [phone] Leora Fish-C Unavailable [phone] Angel Klein MD Unavailable [phone] Fredy Bruno MD Unavailable Sejal Dick MD Unavailable [phone] Cadence Rouse MD Unavailable [phone] Baljinder Hinson MD Unavailable [phone] Rina Swenson MD Unavailable Laura Mock MD, DMD Primary Car e Provider Laura Mock MD, DMD Unavailable Laura Mock MD, DMD Unavailable Jakob Bob MD Unavailable [phone] Jose Cruz MD Unavailable Laura Mock MD, DMD Unavailable Pcp, Unknown Primary Care Provider UnavailLaura Ascencio MD, DMD Primary Car e Provider Pcp, Unknown Primary Care Provider UnavailNicole Arguello MD Primary Care Provide r Laura Mock MD, DMD Primary Car e Provider Encounter Details Date Type Department Care Team (Late st Contact Info) Description 06/12/2017 Procedure Pass [facility] [address] [place] [address] Social History Tobacco Use Types Packs/Day Years [...] Description 01/05/2025 11:00 AM EST Pre-Admission Testing [address] [place] [address] Irineo Ruff MD 75 [place] [address] [email or web address] 01/10/2025 Procedure Pass [facility] Endoscopy Department [address] [place] [address] 01/10/2025 7:30 AM EST Hospital Encounter [facility] Endoscopy Department [address] [place] [address] Irineo Ruff MD 75 [place] [address] [email or web address] 01/10/2025 7:30 AM EST - 01/10/2025 8:15 AM EST Surgery [facility] Endoscopy Department [address] [place] [address] Irineo Ruff MD [address] [place] [address] [email or web address] [email or web address] 01/31/2025 1:00 PM EST Office [place] [facility] [place] [facility], 5th Floor, [address] [place] [address] Karena Betancur MD [address] [address] [email or web address] Scheduled Procedures Name [...] documented as of this encounter Care Teams Adjustment Supervisor Relationship Specialty Start Date End Date Tasha [place] MD [address] [place] [address], 2nd [place] [address] [email or web address] PCP - General 08/24/13 07/08/17 Artie Meehan MD [address] [place] [address] Dr [address] [place] [address] PCP - General Internal Medicine 07/09/17 10/25/17 Artie Meehan MD [address] [place] [address] Dr [address] [place] [address] PCP - General Internal Medicine 10/26/17 06/03/21 Laura Mock MD, DMD [address] [address] [email or web address] PCP - General Internal Medicine 06/04/21 11/11/23 Pcp, Unknown PCP - General 11/12/23 11/16/23 Laura Mock MD, DMD [address] [address] [email or web address] PCP - General Internal Medicine 11/17/23 12/28/23 Pcp, Unknown PCP - General 02/28/24 03/04/24 Nicole [place] MD [address] [place] [address] PCP - General 03/05/24 05/17/24 Laura Mock MD, DMD [address] [address] [email or web address] PCP - General Internal Medicine 05/18/24 Artie Meehan MD [address] [place] [address] [place] [address] Internal Medicine 10/26/17 04/23/22 Meera Campos PA [facility] [place] [address] Historical LMR Provider 12/14/16 Amber Raygoza NP [address] [place] [address] [address] [place] [address] Historical LMR Provider 12/14/16 Elvis Rendon MD [address] [place] [address], [address] [place] [address] Historical LMR Provider 12/14/16 8 Modesta Rivera MD [address] [place] [address], [address] [place] [address] Historical LMR Provider 12/14/16 Carlin Newman MD [address] [place] [address], 2nd [place] [address] Historical LMR Provider 12/14/16 Patti Bello MD 15 [facility], 2nd [place] [address] Historical LMR Provider 12/14/16 07/08/17 Lucila Melendez MD [address] [facility], [address] [place] [address] Historical LMR Provider 12/14/16 07/08/17 Juan J Avitia DO [address] [place] [address] Orthopedics & [facility], [place] [address] Historical LMR Provider 12/14/16 07/08/17 Tasha [place] MD [address] [place] [address], 2nd [place] [address] [email or web address] Historical LMR Provider 12/14/16 07/08/17 Mekhi Hernandez MD [address] [place], [place] [address] [address] [email or web address] Historical LMR Provider 12/14/16 07/08/17 Leora Fish PA-C [address] [place] [address] Orthopedics [facility], [place] [address] Historical LMR Provider 12/14/16 Angel Bueno MD [address] [facility], [address] [place] [address] Historical LMR Provider 12/14/16 Fredy Bruno MD [address] [place] [address] Historical LMR Provider 12/14/16 Sejal Dick MD 4 [facility] Orth[facility]ics & [facility] Medicine, [facility] [place] [address] [email or web address] Historical LMR Provider 12/14/1607/08 Cadence Rouse MD [address] [place] [address] Historical LMR Provider 12/14/16 Baljinder Hinson MD 61 [place] [address] Historical LMR Provider 12/14/16 Rina Swenson MD 61 [place] [address] Psychiatry 07/09/17 Laura Mock MD, DMD [address] [address] [email or web address] Attributed Provider 09/01/21 07/03/23 Laura Mock MD, DMD [address] [address] [email or web address] Insurance Assigned Provider 05/31/23 03/01/24 Jakob Bob MD [address] [place] [address] [place] [address] [email or web address] Cardiology 08/22/23 Jose Cruz MD 22 [facility], [address] [place] [address] Cardiology 08/22/23 Laura Mock MD, DMD [address] [place] [address] [address] [place] [address] [email or web address] Attributed Provider 09/01/21 07/03/23 [place] [facility] [phone]. Consulting Provider 08/22/23 CAROLANN GREWAL Connect 12/24/23 03/11/24 Cyril Morales [address] [place] [address] Nurse Practitioner 02/27/24 documented as of this encounter Additional Source Comments The information contained in this document represents components of the legal health record. It is not the complete legal health record.[facility]
--- OUTSIDE RECORDS SUMMARY | 2024-12-28 16:34 | XMS_ITS | Encounter Summary ---
Author Organization [facility] Address [facility] [employer] [facility] [address] [place] [address] Phone Care Team Providers Care Bottle Cleaner Name Role Phone Artie Meehan MD Primary Care Provider Artie Meehan MD Unavailable [phone] Rina Swenson MD Unavailable Laura Mock MD, DMD Primary Car e Provider Laura Mock MD, DMD Unavailable Laura Mock MD, DMD Unavailable Jakob Bob MD Unavailable [phone] Jose Cruz MD Unavailable Laura Mock MD, DMD Unavailable Pcp, Unknown Primary Care Provider UnavailLaura Ascencio MD, DMD Primary Car e Provider Pcp, Unknown Primary Care Provider UnavailNicole Arguello MD Primary Care Provide r Laura Mock MD, DMD Primary Car e Provider Encounter Details Date Type Department Care Team (Late st Contact Info) Description 12/19/2017 Procedure Pass [facility] 75 [place] [address] Social History Tobacco Use Types Packs/Day Years [...] 01/05/2025 11:00 AM EST Pre-Admission Testing [address] [address] Irineo Ruff MD [address] [place] [address] [email or web address] 01/10/2025 Procedure Pass [facility] Endoscopy Department [address] [place] [address] 01/10/2025 7:30 AM EST Hospital Encounter [facility] Endoscopy Department [address] [place] [address] Irineo Ruff MD [address] [place] [address] [email or web address] 01/10/2025 7:30 AM EST - 01/10/2025 8:15 AM EST Surgery [facility] Endoscopy Department [address] [place] [address] Irineo Ruff MD 75 [facility] [place] [address] [email or web address] 01/31/2025 1:00 PM EST Office [place] [facility] [place] [address] [facility], 5th Floor, [address] [place] [address] Karena Betancur MD 55 [facility] [address] [place] [address] [email or web address] Scheduled Procedures Name Priority [...] as of this encounter Care Teams Bottle Cleaner Relationship Specialty Start Date End Date Artie Meehan MD [address] [place] [address] [place] [address] PCP - General Internal Medicine 10/26/17 06/03/21 Laura Mock MD, DMD 1 [facility] [address] [place] [address] [email or web address] PCP - General Internal Medicine 06/04/21 11/11/23 Pcp, Unknown PCP - General 11/12/23 11/16/23 Laura Mock MD, DMD 1 [facility] [address] [place] [address] [email or web address] PCP - General Internal Medicine 11/17/23 12/28/23 Pcp, Unknown PCP - General 02/28/24 03/04/24 [place] [address] [address] PCP - General 03/05/24 05/17/24 Laura Mock MD, DMD 1 [facility] [address] [place] [address] [email or web address] PCP - General Internal Medicine 05/18/24 Artie Meehan MD [address] [place] [address] Dr [address] [place] [address] Internal Medicine 10/26/17 04/23/22 Rina Swenson MD [address] [place] [address] Dr Dior [address] [place] [address] Psychiatry 07/09/17 Laura Mock MD, DMD [address] [address] [email or web address] Attributed Provider 09/01/21 07/03/23 Laura Mock MD, DMD [address] [address] [email or web address] Insurance Assigned Provider 05/31/23 03/01/24 Jakob Bob MD [address] [place] [address] [place] [address] [email or web address] Cardiology 08/22/23 Jose Cruz MD 22 [facility], [address] [place] [address] [email or web address] Cardiology 08/22/23 Laura Mock MD, DMD [address] [place] [address] [address] [place] [address] [email or web address] Attributed Provider 09/01/21 07/03/23 [facility] [phone]. Consulting Provider 08/22/23 CAROLANN GREWAL Connect 12/24/23 03/11/24 Cyril Morales [facility] [place] [address] Nurse Practitioner 02/27/24 documented as of this encounter Additional Source Comments The information contained in this document represents components of the legal health record. It is not the complete legal health record.[facility]
--- OUTSIDE RECORDS SUMMARY | 2024-12-28 16:34 | XMS_ITS | Encounter Summary ---
Author Organization [facility] Address [facility] [address] [place] [address] Phone Care Team Providers Care Plate Painter Apprentice Name Role Phone Artie Meehan MD Primary Care Provider Artie Meehan MD Primary Care Provider Artie Meehan MD Unavailable Rina Swenson MD Unavailable Laura Mock MD, DMD Primary Car e Provider Laura Mock MD, DMD Unavailable Laura Mock MD, DMD Unavailable Jakob Bob MD Unavailable [phone] Jose Cruz MD Unavailable [phone] Laura Mock MD, DMD Unavailable Pcp, Unknown Primary Care Provider UnavailLaura Ascencio MD, DMD Primary Car e Provider Pcp, Unknown Primary Care Provider UnavailNicole Arguello MD Primary Care Provide r Laura Mock MD, DMD Primary Car e Provider Encounter Details Date Type Department Care Team (Late st Contact Info) Description 08/19/2017 Ancillary Orders Virtual Department [address] [place] [address] Artie Meehan MD [address] [place] [address] [place] [address] Breast screening Social History Tobacco Use Types [...] 01/05/2025 11:00 AM EST Pre-Admission Testing [address] 2nd [place] [address] Irineo Ruff MD [address] [place] [address] [email or web address] 01/10/[address] [facility] Endoscopy Department [address] [place] [address] 01/10/2025 7:30 AM EST Hospital Encounter [facility] Endoscopy Department [address] [place] [address] Irineo Ruff MD [address] [place] [address] [email or web address] 01/10/2025 7:30 AM EST - 01/10/2025 8:[address] [facility] Endoscopy Department [address] [place] [address] Irineo Ruff MD [address] [place] [address] [place] [address] [email or web address] [email or web address] 01/31/2025 1:00 PM EST Office Visit [facility] Cardiovascular Medicine 32 [facility], 5th Floor, [address] [place] [address] Karena Betancur MD 55 [facility] [address] [place] [address] [email or web address] Scheduled Procedures Name [...] lowers the sensitivity of mammography. POS - [id number] Narrative 09/12/2017 2:03 PM EDT Full-field digital [...] whichlowers the sensitivity of mammography. POS - [id number] Artie Meehan MD IMG MG EXAMS Final [...] as of this encounter Care Teams Plate Painter Apprentice Relationship Specialty Start Date End Date Artie Meehan MD [address] [place] [address] [place] [address] PCP - General Internal Medicine 07/09/17 10/25/17 Artie Meehan MD [address] [place] [address] [place] [address] PCP - General Internal Medicine 10/26/17 06/03/21 Laura Mock MD, DMD 1 [facility] [address] [place] [address] [email or web address] PCP - General Internal Medicine 06/04/21 11/11/23 Pcp, Unknown PCP - General 11/12/23 11/16/23 Laura Mock MD, DMD 1 [facility] [address] [place] [address] [email or web address] PCP - General Internal Medicine 11/17/23 12/28/23 Pcp, Unknown PCP - General 02/28/24 03/04/24 Nicole [place] MD [address] [place] [address] PCP - General 03/05/24 05/17/24 Laura Mock MD, DMD [address] [address] [email or web address] PCP - General Internal Medicine 05/18/24 Artie Meehan MD [address] [place] [address] [place] [address] Internal Medicine 10/26/17 04/23/22 Rina Swenson MD [address] [place] [address] [place] [address] Psychiatry 07/09/17 Laura Mock MD, DMD 1 [facility] [address] [place] [address] [email or web address] Attributed Provider 09/01/21 07/03/23 Laura Mock MD, DMD 1 [facility] [address] [place] [address] [place] [address] [email or web address] Insurance Assigned Provider 05/31/23 03/01/24 Jakob Bob MD [facility] [place] [address] [email or web address] Cardiology 08/22/23 Jose Cruz MD [address] [place] [address] [address] [place] [address] [email or web address] Cardiology 08/22/23 Laura Mock MD, DMD [address] [place] [address] [address] [place] [address] [email or web address] Attributed Provider 09/01/21 07/03/23 [facility] [phone]. Consulting Provider 08/22/23 [facility] Connect 12/24/23 03/11/24 Cyril Morales [address] [place] [address] Nurse Practitioner 02/27/24 documented as of this encounter Additional Source Comments The information contained in this document represents components of the legal health record. It is not the complete legal health record.[facility]
--- OUTSIDE RECORDS SUMMARY | 2024-12-28 16:34 | XMS_ITS | Encounter Summary ---
Author Organization [facility] Address [facility] [address] [place] [address] Phone Care Team Providers Care Processing Clerk Name Role Phone Artie Meehan MD Primary Care Provider Artie Meehan MD Unavailable [phone] Rina Swenson MD Unavailable [phone] Laura Mock MD, DMD Primary Car e [...] st Contact Info) Description 05/15/2018 Procedure Pass [facility], [address] [address] Social History Tobacco Use Types Packs/Day Years [...] 01/05/2025 11:00 AM EST Pre-Admission Testing [address] 2nd [place] [address] Irineo Ruff MD [address] [place] [address] [place] [address] [email or web address] 01/10/2025 Procedure Pass [facility] Endoscopy Department [address] [place] [address] 01/10/2025 7:30 AM EST Hospital Encounter [facility] Endoscopy Department [address] [place] [address] Irineo Ruff MD [address] [place] [address] [email or web address] 01/10/2025 7:30 AM EST - 01/10/2025 8:15 AM EST Surgery [facility] Endoscopy Department [address] [place] [address] Irineo Ruff MD [address] [place] [address] [email or web address] COLONOSCOPY 01/31/2025 1:00 PM EST Office [place] [facility] [place] [address] [place] [address], 5th Floor, [address] [place] [address] Karena Betancur MD [address] [place] [address] [email or web address] Scheduled Procedures Name [...] documented as of this encounter Care Teams Processing Clerk Relationship Specialty Start Date End Date Artie Meehan MD [address] [place] [address] PCP - General Internal Medicine 10/26/17 06/03/21 Laura Mock MD, DMD [address] [address] [email or web address] PCP - General Internal Medicine 06/04/21 11/11/23 Pcp, Unknown PCP - General 11/12/23 11/16/23 Laura Mock MD, DMD [address] [address] [email or web address] PCP - General Internal Medicine 11/17/23 12/28/23 Pcp, Unknown PCP - General 02/28/24 03/04/24 Nicole [place] MD [address] [place] [address] PCP - General 03/05/24 05/17/24 Laura Mock MD, DMD [address] [address] [email or web address] PCP - General Internal Medicine 05/18/24 Artie Meehan MD [address] [place] [address] Dr [address] [place] [address] Internal Medicine 10/26/17 04/23/22 Rina Swenson MD [address] [place] [address] Dr [address] [place] [address] Psychiatry 07/09/17 Laura Mock MD, DMD [address] [address] [email or web address] Partners Attributed Provider 09/01/21 07/03/23 Laura Mock MD, DMD [address] [address] [email or web address] Insurance Assigned Provider 05/31/23 03/01/24 Jakob Bob MD [address] [place], [place] [address] [place] [address] [email or web address] Cardiology 08/22/23 Jose Cruz MD [address] [place] [address], [facility] [address] [place] [address] Cardiology 08/22/23 Laura Mock MD, DMD 1 [facility] [address] [place] [address] [email or web address] [employer] Attributed Provider 09/01/21 07/03/23 [facility] [phone]. Consulting Provider 08/22/23 [facility] Connect 12/24/23 03/11/24 Cyril Morales [address] [place] [address] Nurse Practitioner 02/27/24 documented as of this encounter Additional Source Comments The information contained in this document represents components of the legal health record. It is not the complete legal health record.[facility]
--- OUTSIDE RECORDS SUMMARY | 2024-12-28 16:34 | XMS_ITS | Encounter Summary ---
Author Organization [facility] Address [facility] [place] [address] [address] Phone Care Team Providers Care Process Improvement Engineer Name Role Phone Artie Meehan MD Primary Care Provider Artie Meehan MD Unavailable [phone] Rina Swenson MD Unavailable [phone] Laura Mock MD, DMD Primary Car e Provider Laura Mock MD, DMD Unavailable Laura Mock MD, DMD Unavailable Jakob Bob MD Unavailable [phone] Jose Cruz MD Unavailable Laura Mock MD, [...] sequela Artie Meehan MD Phone: tel: fax: [facility] [address] [place] [address] Phone: tel: Referral ID Status Reason Start Date Expiration Date Visits Re quested Visits Authorized [id number] Closed 11/27/2018 02/23/2019 99 99 Encounter Details Date Type Department Care Team (Latest Contact Info) Description 11/27/2018 Transcribe Orders [facility] [address] [place] [address] Artie Meehan MD [address] [place] [address] Left wrist fracture, sequela (Primary Dx) Social [...] Description 01/05/2025 11:00 AM EST [facility] [address] [facility] 2nd [place] [address] Irineo Ruff MD [address] [place] [address] [place] [address] [email or web address] 01/10/2025 Procedure Pass [facility] Endoscopy Department [address] [place] [address] 01/10/2025 7:30 AM EST Hospital Encounter [facility] Endoscopy Department 75 [place] [address] Irineo Ruff MD 75 [facility] [place] [address] [email or web address] 01/10/2025 7:30 AM EST - 01/10/2025 8:15 AM EST Surgery [facility] Endoscopy Department [address] [place] [address] Irineo Ruff MD 75 [place] [address] [email or web address] [email or web address] 01/31/2025 1:00 PM EST Office [place] [facility] [place] 32 [facility], 5th Floor, [address] [place] [address] Karena Betancur MD [address] [address] [email or web address] Scheduled Procedures Name Priority Associated Diagnoses Date/Ti me COLONOSCOPY Abnormal colonoscopy 01/10/2025 7:30 AM EST documented as of this encounter Procedures Procedure Name Priority Date/Time Associated Diagnosis Comments AMB REFERRAL TO [facility] OCCUPATIONAL THERAPY Routine 12/08/2018 4:10 PM EDT Left wrist fracture, sequela documented in this encounter Results * Ambulatory referral to [facility] Occupational Therapy (12/08/2018 4:10 PM EDT) Artie Meehan MD AMB [facility] REFERRALS Final R esult documented in this encounter Visit Diagnoses Diagnosis Left wrist fracture, sequela- Primary Abnormal colonoscopy documented in this encounter Additional Health Concerns Infection Onset Date Last Indicated Resolved Time CoV-Presumed 03/23/2022 03/23/2022 04/13/2022 1:23 AM EST CoV-Risk 11/12/2023 11/12/2023 11/12/2023 5:12 PM EDT COVID-19 11/12/2023 11/12/2023 12/03/2023 1:21 AM EDT documented as of this encounter Care Teams Process Improvement Engineer Relationship Specialty Start Date End Date Artie Meehan MD [address] [place] [address] [place] [address] PCP - General Internal Medicine 10/26/17 06/03/21 Laura Mock MD, DMD [address] [address] [email or web address] PCP - General Internal Medicine 06/04/21 11/11/23 Pcp, Unknown PCP - General 11/12/23 11/16/23 Laura Mock MD, DMD [address] [address] [email or web address] PCP - General Internal Medicine 11/17/23 12/28/23 Pcp, Unknown PCP - General 02/28/24 03/04/24 Nicole Newell MD [address] [place] [address] PCP - General 03/05/24 05/17/24 Laura Mock MD, DMD [address] [address] [email or web address] PCP - General Internal Medicine 05/18/24 Artie Meehan MD [address] [place] [address] [place] [address] Internal Medicine 10/26/17 04/23/22 Rina Swenson MD [address] [place] [address] [place] [address] Psychiatry 07/09/17 Laura Mock MD, DMD [address] [address] [email or web address] Attributed Provider 09/01/21 07/03/23 Laura Mock MD, DMD [address] [address] [email or web address] Insurance Assigned Provider 05/31/23 03/01/24 Jakob Bob MD [address] [place] [address] [email or web address] Cardiology 08/22/23 Jose Cruz MD [address] [place] [address] Cardiology 08/22/23 Laura Mock MD, DMD [address] [address] [email or web address] Attributed Provider 09/01/21 07/03/23 [place] [facility] [phone]. Consulting Provider 08/22/23 [facility] Connect 12/24/23 03/11/24 Cyril Morales [address] [place] [address] Nurse Practitioner 02/27/24 documented as of this encounter Additional Source Comments The information contained in this document represents components of the legal health record. It is not the complete legal health record.[facility]
--- OUTSIDE RECORDS SUMMARY | 2024-12-28 16:34 | XMS_ITS | Encounter Summary ---
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) [...] 01/05/2025 11:00 AM EST Pre-Admission Testing [facility] [address] [facility] 2nd [place] [address] Irineo Ruff MD [address] [place] [address] [place] [address] [email or web address] 01/10/2025 Procedure Pass [facility] Endoscopy Department [address] [place] [address] 01/10/2025 7:30 AM EST Hospital Encounter [facility] Endoscopy Department [address] [place] [address] Irineo Ruff MD [address] [place] [address] [place] [address] [email or web address] 01/10/2025 7:30 AM EST - 01/10/2025 8:15 AM EST Surgery [facility] Endoscopy Department [address] [place] [address] Irineo Ruff MD [address] [place] [address] [place] [address] [email or web address] [email or web address] 01/31/2025 1:00 PM EST Office Visit [facility] [address] [facility], 5th Floor, [address] [place] [address] Karena Betancur MD 55 [facility] [address] [place] [address] [email or web address] Scheduled Procedures Name Priority [...] as of this encounter Care Teams Power Equipment Technology Instructor Relationship Specialty Start Date End Date Artie Meehan MD [address] [place] [address] [place] [address] PCP - General Internal Medicine 10/26/17 06/03/21 Laura Mock MD, DMD [address] [address] [email or web address] PCP - General Internal Medicine 06/04/21 11/11/23 Pcp, Unknown PCP - General 11/12/23 11/16/23 Laura Mock MD, DMD [address] [address] [email or web address] PCP - General Internal Medicine 11/17/23 12/28/23 Pcp, Unknown PCP - General 02/28/24 03/04/24 [place] [address] [address] PCP - General 03/05/24 05/17/24 Laura Mock MD, DMD [address] [address] [email or web address] PCP - General Internal Medicine 05/18/24 Artie Meehan MD [address] [place] [address] [address] [place] [address] Internal Medicine 10/26/17 04/23/22 Rina Swenson MD [address] [place] [address] Dr Dior [address] [place] [address] Psychiatry 07/09/17 Laura Mock MD, DMD [address] [address] [email or web address] [employer] Attributed Provider 09/01/21 07/03/23 Laura Mock MD, DMD [address] [address] [email or web address] Insurance Assigned Provider 05/31/23 03/01/24 Jakob Bob MD [address] [place], [place] [address] [place] [address] [email or web address] Cardiology 08/22/23 Jose Cruz MD 22 [facility], [address] [place] [address] [email or web address] Cardiology 08/22/23 Laura Mock MD, DMD 1 [facility] [address] [place] [address] [email or web address] [employer] Attributed Provider 09/01/21 07/03/23 [place] [facility] [phone]. Consulting Provider 08/22/23 [facility] Connect 12/24/23 03/11/24 Cyril Morales [facility] [place] [address] Nurse Practitioner 02/27/24 documented as of this encounter Additional Source Comments The information contained in this document represents components of the legal health record. It is not the complete legal health record.[facility]
--- OUTSIDE RECORDS SUMMARY | 2024-12-28 16:34 | XMS_ITS | Encounter Summary ---
Author Organization [facility] Address [facility] [address] [place] [address] Phone Care Team Providers Care Database Reporting Consultant Name Role Phone Artie Meehan MD Primary Care Provider Artie Meehan MD Unavailable [phone] Rina Swenson MD Unavailable Laura Mock MD, [...] Expiration Date Visits Re quested Visits Authorized [id number] Closed 05/15/2018 05/15/2019 1 1 Encounter Details Date Type Department Care Team (Late Contact Info) Description 05/15/2018 Ancillary Orders For Login Purposes Only [address] [facility] [address] [place] [address] Artie Meehan MD [address] [place] [address] [place] [address] Pancreatic cyst Social History Tobacco Use Types [...] AM EST [facility] [address] [address] Irineo Ruff MD 75 [facility] Endoscopy [place] [address] [email or web address] 01/10/2025 Procedure Pass [facility] Endoscopy Department [address] [place] [address] 01/10/2025 7:30 AM EST Hospital Encounter [facility] Endoscopy Department [address] [place] [address] Irineo Ruff MD 75 [facility] Endoscopy [place] [address] [email or web address] 01/10/2025 7:30 AM EST - 01/10/2025 8:15 AM EST Surgery [facility] Endoscopy Department [address] [place] [address] Irineo Ruff MD 75 [facility] [place] [address] [email or web address] [email or web address] 01/31/2025 1:00 PM EST Office Visit [facility] [place] Cardiovascular Medicine [address] [facility], 5th Floor, [address] [place] [address] Karena Betancur MD [address] [address] [email or web address] Scheduled Procedures Name [...] renal cysts. Right hepatic lobe cyst. POS [id number] Edited by: Abbie Barnett on 05/22/2018 12:52 [...] renal cysts. Right hepatic lobe cyst. POS [id number] Edited by: Abbie Barnett on 05/22/2018 12:52 [...] documented as of this encounter Care Teams Database Reporting Consultant Relationship Specialty Start Date End Date Artie Meehan MD [address] [place] [address] [place] [address] PCP - General Internal Medicine 10/26/17 06/03/21 Laura Mock MD, DMD [address] [address] [email or web address] PCP - General Internal Medicine 06/04/21 11/11/23 Pcp, Unknown PCP - General 11/12/23 11/16/23 Laura Mock MD, DMD [address] [address] [email or web address] PCP - General Internal Medicine 11/17/23 12/28/23 Pcp, Unknown PCP - General 02/28/24 03/04/24 [place] [address] [address] PCP - General 03/05/24 05/17/24 Laura Mock MD, DMD [address] [address] [email or web address] PCP - General Internal Medicine 05/18/24 Artie Meehan MD [address] [place] [address] Dr Dior [facility] [place] [address] Internal Medicine 10/26/17 04/23/22 Rina Swenson MD [address] [place] [address] Dr Dior [facility] [place] [address] Psychiatry 07/09/17 Laura Mock MD, DMD [address] [address] [email or web address] Partners Attributed Provider 09/01/21 07/03/23 Laura Mock MD, DMD [address] [address] [email or web address] Insurance Assigned Provider 05/31/23 03/01/24 Jakob Bob MD [address] [place], [place] [address] [place] [address] [email or web address] Cardiology 08/22/23 Jose Cruz MD [address] [place] [address], [facility] [address] [place] [address] Cardiology 08/22/23 Laura Mock MD, DMD 1 [place] [address] [email or web address] Attributed Provider 09/01/21 07/03/23 [facility] [phone]. Consulting Provider 08/22/23 [facility] Connect 12/24/23 03/11/24 Cryil Morales [facility] [place] [address] Nurse Practitioner 02/27/24 documented as of this encounter Additional Source Comments The information contained in this document represents components of the legal health record. It is not the complete legal health record.[facility]
== END 2024-12-28 13:58 | disposition home or self-care (01) ==
LOC: HO.ACS 13:29
PROVIDERS: PCP Internal Medicine; Visit Provider Internal Medicine Medical Oncology
DX: Z79.01 Long term (current) use of anticoagulants (principal)

== ENCOUNTER → 2024-12-28 13:29 | Outpatient (BNVA) | payer MEDICARE, SELFPAY | PROVIDERS: PCP Internal Medicine; Visit Provider Internal Medicine Medical Oncology | DX: Z79.01 Long term (current) use of anticoagulants (principal) | CPT/HCPCS: 85610; 99211 ==

== ENCOUNTER 2025-01-07 14:38 | Outpatient (AMB) | payer MEDICARE, SELFPAY ==
[2025-01-07 15:05] LABS: Prothrombin Time Whole Bld POC 24.3 sec (11.1-13.5); ~PT, ~INR - Anti Coag Clinic 2.0 (0.9-1.1)
--- NOTE | 2025-01-07 15:20 | MHC.OFFVISCO ---
Intake Intake Visit Reasons: Anticoagulation Allergies latex Allergy (Intermediate, Verified 01/07/25 14:57) Rash Medication List - Last Reconciled 01/07/25 by Chayito Moctezuma, RN acetaminophen 500 mg PO Q6H PRN amoxicillin 2,000 mg (4 x 500 mg) PO ONCE 1 day ascorbate calcium (vitamin C) 1 g PO DAILY bupropion HCl XL (Wellbutrin XL) 300 mg PO QAM clonazepam 0.5 mg PO BID PRN cyanocobalamin (vitamin B-12) PO folic acid 0.8 mg PO DAILY lisinopril 10 mg PO BID [multivitamin PO] [VIT D 3 K 2 PO] warfarin See Protocol 4 mg daily per INR per Anticoagulation Services 30 days Nursing Note INR: 2.0 in therapeutic range of 2-3 Medications and supplements reviewed No changes in health, diet, medications, or supplements, Denies any signs and symptoms of bleeding or bruising or clotting. Bleeding, bruising, clotting discussed Nutritional guidance given to avoid greens today. Food list discussed and reviewed with pt. She will have a serving of foods that raise the INR today. Dose: increase today's dose to 5mg (4mg) and increase tomorrow's dose to 5mg (4mg) then 4mg daily F/U INR: 01/13/25 Patient verbalizes understanding of instructions given Anti-Coag Initial Assessment Social Hx Patient Tobacco Use Status: Never used Tobacco alcohol intake: never Alcohol intake frequency: does not drink Coding Level of Care Code Est Patient Level 1 Diagnoses Current use of anticoagulant therapy Z79.01 Assessment & Plan Assessment & Plan (1) Current use of anticoagulant therapy: Code(s): Z79.01 - prison (current) use of 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
--- OUTSIDE RECORDS SUMMARY | 2025-01-07 21:56 | XMS_ITS | Encounter Summary ---
Author Organization [facility] Address [address] [facility] [address] [place] [address] Phone Care Team Providers Care Fender Mechanic Name Role Phone Artie Meehan MD Primary Care Provider [phone] Artie Meehan MD Unavailable Rina Swenson MD Unavailable Laura Mock MD, DMD Primary Car e Provider Laura Mock MD, DMD Unavailable Laura Mock MD, DMD Unavailable Jakob Bob MD Unavailable [phone] Jose Cruz MD Unavailable [phone] Laura Mock MD, DMD Unavailable Pcp, Unknown Primary Care Provider UnavailLaura Ascencio MD, DMD Primary Car e Provider Pcp, Unknown Primary Care Provider UnavailNicole Arguello MD Primary Care Provide r Laura Mock MD, DMD Primary Car e Provider Encounter Details Date Type Department Care Team (Late st Contact Info) Description 11/15/2020 Transcribe Orders Virtual Department [address] [place] [address] Artie Meehan MD [address] [place] [address] [place] [address] Asymptomatic menopausal state (Primary Dx); Age-related osteoporosis [...] Care Team (Late st Contact Info) Description 01/31/2025 1:00 PM EST Office Visit [facility] Cardiovascular Medicine [address] [facility], 5th Floor, [address] [place] [address] Karena Betancur MD [address] [address] [email or web address] 03/08/2025 9:30 AM EST Pre-Admission Testing [facility] [address] [facility] 2nd [place] [address] Irineo Ruff MD [address] [place] [address] [email or web address] 03/15/2025 Procedure Pass [facility] Endoscopy Department [address] [place] [phone] 03/15/2025 7:30 AM EST Hospital Encounter [facility] Endoscopy Department [address] [place] [phone] Irineo Ruff MD [address] [facility] [place] [address] [email or web address] 03/15/2025 7:30 AM EST - 03/15/2025 8:15 AM EST Surgery [facility] Endoscopy Department [address] [place] [address] Irineo Ruff MD [address] [place] [address], [place] [address] [email or web address] Scheduled Procedures Name Priority Associated Diagnoses Date/Ti me COLONOSCOPY Abnormal colonoscopy 03/15/2025 7:30 AM EST documented as of this [...] bone mineral density was calculated at 0.409 gm/[id number] a T- score of -4 falling within [...] documented as of this encounter Care Teams Fender Mechanic Relationship Specialty Start Date End Date Artie Meehan MD [address] [place] [address] [place] [id number] PCP - General Internal Medicine 10/26/17 06/03/21 Laura Mock MD, DMD [address] [address] [email or web address] PCP - General Internal Medicine 06/04/21 11/11/23 Pcp, Unknown PCP - General 11/12/23 11/16/23 Laura Mock MD, DMD [address] [address] [email or web address] PCP - General Internal Medicine 11/17/23 12/28/23 Pcp, Unknown PCP - General 02/28/24 03/04/24 Nicole Newell MD [address] [place] [id number] PCP - General 03/05/24 05/17/24 Laura Mock MD, DMD [address] [address] [email or web address] PCP - General Internal Medicine 05/18/24 Artie Meehan MD [address] [place] [address] [place] [address] Internal Medicine 10/26/17 04/23/22 Rina Swenson MD [address] [place] [address] [place] [address] Psychiatry 07/09/17 Laura Mock MD, DMD [address] [address] [email or web address] Attributed Provider 09/01/21 07/03/23 Laura Mock MD, DMD [address] [address] [email or web address] Insurance Assigned Provider 05/31/23 03/01/24 Jakob Bob MD [address] [place] [phone] [email or web address] 08/22/23 Jose Cruz MD [address] [place] [id number] [email or web address] Cardiology 08/22/23 Laura Mock MD, DMD [address] [address] [email or web address] Attributed Provider 09/01/21 07/03/23 [facility] [phone]. Consulting Provider 08/22/23 [facility] Connect 12/24/23 03/11/24 Cyril Morales [address] [place] [address] Nurse Practitioner 02/27/24 documented as of this encounter Additional Source Comments The information contained in this document represents components of the legal health record. It is not the complete legal health record.[facility]
--- OUTSIDE RECORDS SUMMARY | 2025-01-07 21:56 | XMS_ITS | Encounter Summary ---
Author Organization [facility] Address Formerly [facility] [employer] [facility] [address] [place] [address] Phone Care Team Providers Care Fast Food Delivery Driver Name Role Phone Artie Meehan MD Unavailable Rina Swenson MD Unavailable Laura Mock MD, DMD Primary Car e Provider Laura Mock MD, DMD Unavailable Laura Mock MD, DMD Unavailable Jakob Bob MD Unavailable [phone] Jose Cruz MD Unavailable Laura Mock MD, DMD Unavailable Pcp, Unknown Primary Care Provider UnavailLaura Ascencio MD, DMD Primary Car e Provider Pcp, Unknown Primary Care Provider UnavailNicole Arguello MD Primary Care Provide r Laura Mock MD, DMD Primary Car e Provider Encounter Details Date Type Department Care Team (Late st Contact Info) Description 10/19/2021 Anti-coag visit [facility] Anticoagulation Clinic [address] [place] [address] Melvin Stewart, [facility] [address] [place] [address] [email or web address] Social History Tobacco Use Types Packs/Day [...] Description 01/31/2025 1:00 PM EST Office Visit [facility] Cardiovascular Medicine 32 [facility], 5th Floor, [address] [place] [address] Karena Betancur MD [address] [address] [email or web address] 03/08/2025 9:30 AM EST Pre-Admission Testing [facility] 45 [facility] 2nd [place] [address] Irineo Ruff MD 75 [place] [address] [email or web address] 03/15/2025 Procedure Pass [facility] Endoscopy Department [address] [place] [address] 03/15/2025 7:30 AM EST Hospital Encounter [facility] Endoscopy Department [address] [place] [address] Irineo Rfuf MD 75 [facility] [place] [address] [email or web address] 03/15/2025 7:30 AM EST - 03/15/2025 8:15 AM EST Surgery [facility] Endoscopy Department [address] [place] [address] Irineo Ruff MD [address] [place] [address], [place] [address] [email or web address] COLONOSCOPY Scheduled Procedures Name Priority [...] documented as of this encounter Care Teams Fast Food Delivery Driver Relationship Specialty Start Date End Date Laura Mock MD, DMD [address] [address] [email or web address] PCP - General Internal Medicine 06/04/21 11/11/23 Pcp, Unknown PCP - General 11/12/23 11/16/23 Laura Mock MD, DMD [address] [address] [email or web address] PCP - General Internal Medicine 11/17/23 12/28/23 Pcp, Unknown PCP - General 02/28/24 03/04/24 Nicole Newell MD [address] [place] [address] PCP - General 03/05/24 05/17/24 Laura Mock MD, DMD [address] [address] [email or web address] du PCP - General Internal Medicine 05/18/24 Artie Meehan MD [address] [place] [address] [place] [address] Internal Medicine 10/26/17 04/23/22 Rina Swenson MD [address] [place] [address] [place] [address] Psychiatry 07/09/17 Laura Mock MD, DMD [address] [address] [email or web address] Partners Attributed Provider 09/01/21 07/03/23 Laura Mock MD, DMD [address] [address] [email or web address] du Insurance Assigned Provider 05/31/23 03/01/24 Jakob Bob MD [address] [place] [address] [place] [address] [email or web address] Cardiology 08/22/23 Jose Cruz MD [address] [place] [address], [facility] [address] [place] [address] Cardiology 08/22/23 Laura Mock MD, DMD 1 [facility] [address] [place] [address] [email or web address] [employer] Attributed Provider 09/01/21 07/03/23 [facility] [phone]. Consulting Provider 08/22/23 [facility] Connect 12/24/23 03/11/24 Cyril Morales [facility]5 [place] [address] Nurse Practitioner 02/27/24 documented as of this encounter Additional Source Comments The information contained in this document represents components of the legal health record. It is not the complete legal health record.[facility]
--- OUTSIDE RECORDS SUMMARY | 2025-01-07 21:56 | XMS_ITS | Encounter Summary ---
Author Organization [facility] Address [facility] [employer] [facility] [address] [place] [address] Phone Care Team Providers Care Food Safety Scientist Name Role Phone Artie Meehan MD Unavailable Rina Swenson MD Unavailable Laura Mock MD, DMD Primary Car e Provider Laura Mock MD, DMD Unavailable Laura Mock MD, DMD Unavailable Jakob Bob MD Unavailable Jose Cruz MD Unavailable [phone] Laura Mock MD, DMD Unavailable Pcp, Unknown Primary Care Provider UnavailLaura Ascencio MD, DMD Primary Car e Provider Pcp, Unknown Primary Care Provider UnavailNicole Arguello MD Primary Care Provide r Laura Mock MD, DMD Primary Car e Provider Encounter Details Date Type Department Care Team (Late st Contact Info) Description 04/05/[address] [facility] Anticoagulation Clinic [address] [place] [address] Melvin Stewart, [facility] [address] [place] [address] [email or web address] Social History Tobacco Use Types Packs/Day [...] Description 01/31/2025 1:00 PM EST Office Visit [facility] Cardiovascular Medicine 32 [facility], 5th Floor, [address] [place] [address] Karena Betancur MD [address] [address] [email or web address] 03/08/2025 9:30 AM EST Pre-Admission Testing [facility] 45 [facility] 2nd [place] [address] Irineo Ruff MD 75 [place] [address] [email or web address] 03/15/[address] [facility] Endoscopy Department [address] [place] [address] 03/15/2025 7:30 AM EST Hospital Encounter [facility] Endoscopy Department [address] [place] [address] Irineo Ruff MD 75 [place] [address] [email or web address] 03/15/2025 7:30 AM EST - 03/15/2025 8:[address] [facility] Endoscopy Department [address] [place] [address] Irineo Ruff MD [address] [place] [address], [place] [address] [email or web address] COLONOSCOPY Scheduled Procedures Name Priority Associated Diagnoses [...] documented as of this encounter Care Teams Food Safety Scientist Relationship Specialty Start Date End Date Laura Mock MD, DMD [address] [address] [email or web address] PCP - General Internal Medicine 06/04/21 11/11/23 Pcp, Unknown PCP - General 11/12/23 11/16/23 Laura Mock MD, DMD [address] [address] [email or web address] PCP - General Internal Medicine 11/17/23 12/28/23 Pcp, Unknown PCP - General 02/28/24 03/04/24 [place] [address] [address] PCP - General 03/05/24 05/17/24 Laura Mock MD, DMD [address] [address] [email or web address] PCP - General Internal Medicine 05/18/24 Artie Meehan MD [address] [place] [address] [address] Internal Medicine 10/26/17 04/23/22 Rina Swenson MD [address] [place] [address] [address] Psychiatry 07/09/17 Laura Mock MD, DMD [address] [address] [email or web address] Partners Attributed Provider 09/01/21 07/03/23 Laura Mock MD, DMD [address] [address] [email or web address] Insurance Assigned Provider 05/31/23 03/01/24 Jakob Bob MD [address] [place], [place] [address] [place] [address] [email or web address] Cardiology 08/22/23 Jose Cruz MD [address] [place] [address], [address] [place] [address] Cardiology 08/22/23 Laura Mock MD, DMD 1 [facility] [address] [place] [address] [email or web address] Attributed Provider 09/01/21 07/03/23 [facility] [phone]. Consulting Provider 08/22/23 [facility] Connect 12/24/23 03/11/24 Cyril Morales [facility]5 [place] [address] Nurse Practitioner 02/27/24 documented as of this encounter Additional Source Comments The information contained in this document represents components of the legal health record. It is not the complete legal health record.[facility]
--- OUTSIDE RECORDS SUMMARY | 2025-01-07 21:56 | XMS_ITS | Encounter Summary ---
Author Organization [facility] Address [address] [facility] [address] [place] [address] Phone Care Team Providers Care Blindstitch Machine Operator Name Role Phone Artie Meehan MD Primary Care Provider [phone] Artie Meehan MD Unavailable Rina Swenson MD Unavailable Laura Mock MD, DMD Primary Car e Provider Laura Mock MD, DMD Unavailable Laura Mock MD, DMD Unavailable Jakob Bob MD Unavailable [phone] Jose Cruz MD Unavailable Laura Mock MD, DMD Unavailable Pcp, Unknown Primary Care Provider UnavailLaura Ascencio MD, DMD Primary Car e Provider Pcp, Unknown Primary Care Provider UnavailNicole Arguello MD Primary Care Provide r Laura Mock MD, DMD Primary Car e Provider Encounter Details Date Type Department Care Team (Late st Contact Info) Description 11/07/2020 Procedure Pass [facility], [address] [address] Social History Tobacco Use Types Packs/Day Years [...] Description 01/31/2025 1:00 PM EST Office Visit [facility] Cardiovascular Medicine 32 [facility], 5th Floor, [address] [place] [address] Karena Betancur MD [address] [address] [email or web address] 03/08/2025 9:30 AM EST [facility] [address] [place] [address] 2nd [place] [address] Irineo Ruff MD [address] [place] [address] [email or web address] 03/15/2025 Procedure Pass [facility] Endoscopy Department [address] [place] [address] 03/15/2025 7:30 AM EST Hospital Encounter [facility] Endoscopy Department [address] [place] [address] Irineo Ruff MD [address] [place] [address] [email or web address] 03/15/2025 7:30 AM EST - 03/15/2025 8:15 AM EST Surgery [facility] Endoscopy Department [address] [place] [address] Irineo Ruff MD [address] [place] [address] [place] [address] [email or web address] COLONOSCOPY Scheduled Procedures Name Priority Associated [...] documented as of this encounter Care Teams Blindstitch Machine Operator Relationship Specialty Start Date End Date Artie Meehan MD [address] [place] [address] PCP - General Internal Medicine 10/26/17 06/03/21 Laura Mock MD, DMD [address] [address] [email or web address] PCP - General Internal Medicine 06/04/21 11/11/23 Pcp, Unknown PCP - General 11/12/23 11/16/23 Laura Mock MD, DMD [address] [address] [email or web address] PCP - General Internal Medicine 11/17/23 12/28/23 Pcp, Unknown PCP - General 02/28/24 03/04/24 [place] [address] [place] [address] PCP - General 03/05/24 05/17/24 Laura Mock MD, DMD [address] [address] [email or web address] du PCP - General Internal Medicine 05/18/24 Artie Meehan MD [address] [place] [address] Dr [address] [place] [address] Internal Medicine 10/26/17 04/23/22 Rina Swenson MD [address] [place] [address] Dr [address] [place] [address] Psychiatry 07/09/17 Laura Mock MD, DMD [address] [address] [email or web address] Partners Attributed Provider 09/01/21 07/03/23 Laura Mock MD, DMD [address] [address] [email or web address] du Insurance Assigned Provider 05/31/23 03/01/24 Jakob Bob MD [address] [place] [address] [address] [place] [address] [email or web address] Cardiology 08/22/23 Jose Cruz MD [address] [place] [address], [facility] 301 [place] [address] Cardiology 08/22/23 Laura Mock MD, DMD 1 [facility] [address] [place] [address] [email or web address] [employer] Attributed Provider 09/01/21 07/03/23 [facility] [phone]. Consulting Provider 08/22/23 [facility] Connect 12/24/23 03/11/24 Cyril Morales [address] [place] [address] Nurse Practitioner 02/27/24 documented as of this encounter Additional Source Comments The information contained in this document represents components of the legal health record. It is not the complete legal health record.[facility]
--- OUTSIDE RECORDS SUMMARY | 2025-01-07 21:56 | XMS_ITS | Encounter Summary ---
Author Organization [facility] Address [address] [employer] [facility] [address] [place] [address] Phone Care Team Providers Care Pharmaceutical Laboratory Technician Name Role Phone Artie Meehan MD Primary Care Provider [phone] Artie Meehan MD Unavailable [phone] Rina Swenson MD Unavailable Laura Mock MD, [...] 07/06/2020 Procedure Pass [facility] [address] [place] [address] Social History Tobacco Use Types Packs/Day Years [...] Description 01/31/2025 1:00 PM EST Office [place] [facility] Cardi[place] Medicine 32 [facility], 5th Floor, [address] [place] [address] Karena Betancur MD [address] [address] [email or web address] 03/08/2025 9:30 AM EST [facility] [address] 2nd [place] [address] Irineo Ruff MD [address] [place] [address] [email or web address] 03/15/2025 Procedure Pass [facility] Endoscopy Department [address] [place] [address] 03/15/2025 7:30 AM EST Hospital Encounter [facility] Endoscopy Department [address] [place] [address] Irineo Ruff MD [address] [place] [address] [place] [address] [email or web address] 03/15/2025 7:30 AM EST - 03/15/2025 8:15 AM EST Surgery [facility] Endoscopy Department [address] [place] [address] Irineo Ruff MD [address] [place] [address] [place] [address] [email or web address] COLONOSCOPY Scheduled Procedures Name Priority Associated [...] documented as of this encounter Care Teams Pharmaceutical Laboratory Technician Relationship Specialty Start Date End Date Artie Meehan MD [address] [place] [address] [place] [address] PCP - General Internal Medicine 10/26/17 06/03/21 Laura Mock MD, DMD [address] [address] [email or web address] du PCP - General Internal Medicine 06/04/21 11/11/23 Pcp, Unknown PCP - General 11/12/23 11/16/23 Laura Mock MD, DMD [address] [address] [email or web address] du PCP - General Internal Medicine 11/17/23 12/28/23 Pcp, Unknown PCP - General 02/28/24 03/04/24 Nicole Newell MD [address] [place] [address] PCP - General 03/05/24 05/17/24 Laura Mock MD, DMD [address] [address] [email or web address] PCP - General Internal Medicine 05/18/24 Artie Meehan MD [address] [place] [address] Dr [address] [place] [address] Internal Medicine 10/26/17 04/23/22 Rina Swenson MD [address] [place] [address] Dr [address] [place] [address] Psychiatry 07/09/17 Laura Mock MD, DMD [address] [address] [email or web address] [employer] Attributed Provider 09/01/21 07/03/23 Laura Mock MD, DMD [address] [address] [email or web address] du Insurance Assigned Provider 05/31/23 03/01/24 Jakob Bob MD [address] [place], [place] [address] [place] [address] [email or web address] Cardiology 08/22/23 Jose Cruz MD [address] [place] [address], [address] [place] [address] Cardiology 08/22/23 Laura Mock MD, DMD 1 [facility] [address] [place] [address] [email or web address] [employer] Attributed Provider 09/01/21 07/03/23 [facility] [phone]. Consulting Provider 08/22/23 [facility] Connect 12/24/23 03/11/24 Cyril Morales [address] [place] [address] Nurse Practitioner 02/27/24 documented as of this encounter Additional Source Comments The information contained in this document represents components of the legal health record. It is not the complete legal health record.[facility]
--- OUTSIDE RECORDS SUMMARY | 2025-01-07 21:56 | XMS_ITS | Encounter Summary ---
Author Organization [facility] Address [address] [place] [address] Phone Care Team Providers Care Paleology Professor Name Role Phone Artie Meehan MD Unavailable Rina Swenson MD Unavailable [phone] Laura Mock MD, DMD Primary Car e [...] PharmD [address] [place] [address] [email or web address] Social History Tobacco Use Types Packs/Day [...] Description 01/31/2025 1:00 PM EST Office Visit [facility] Cardiovascular Medicine 32 [facility], 5th Floor, [address] [place] [address] Karena Betancur MD [address] [address] [email or web address] 03/08/2025 9:30 AM EST [facility] [place] [facility] 2nd [place] [address] Irineo Ruff MD [address] [place] [address] [email or web address] 03/15/2025 Procedure Pass [facility] Endoscopy Department [address] [place] [address] 03/15/2025 7:30 AM EST Hospital Encounter [facility] Endoscopy Department [address] [place] [address] Irineo Rfuf MD [address] [place] [address] [place] [address] [email or web address] 03/15/2025 7:30 AM EST - 03/15/2025 8:15 AM EST Surgery [facility] Endoscopy Department [address] [place] [address] Irineo Ruff MD [address] [place] [address], [place] [address] [email or web address] COLONOSCOPY Scheduled Procedures Name Priority [...] documented as of this encounter Care Teams Paleology Professor Relationship Specialty Start Date End Date Laura Mock MD, DMD [address] [address] [email or web address] PCP - General Internal Medicine 06/04/21 11/11/23 Pcp, Unknown PCP - General 11/12/23 11/16/23 Laura Mock MD, DMD [address] [address] [email or web address] du PCP - General Internal Medicine 11/17/23 12/28/23 Pcp, Unknown PCP - General 02/28/24 03/04/24 Nicole Newell MD [address] [place] [address] [id number] PCP - General 03/05/24 05/17/24 Laura Mock MD, DMD [address] [address] [email or web address] du PCP - General Internal Medicine 05/18/24 Artie Meehan MD [address] [place] [address] [place] [address] Internal Medicine 10/26/17 04/23/22 Rina Swenson MD [address] [place] [address] [place] [address] Psychiatry 07/09/17 Laura Mock MD, DMD [address] [address] [email or web address] [employer] Attributed Provider 09/01/21 07/03/23 Laura Mock MD, DMD [address] [address] [email or web address] du Insurance Assigned Provider 05/31/23 03/01/24 Jakob Bob MD [address] [place] [address] [place] [address] [email or web address] Cardiology 08/22/23 Jose Cruz MD [address] [place] [address], [address] [address] Cardiology 08/22/23 Laura Mock MD, DMD 1 [facility] [address] [place] [address] [email or web address] [employer] Attributed Provider 09/01/21 07/03/23 [facility] [phone]. Consulting Provider 08/22/23 [facility] Connect 12/24/23 03/11/24 Cyril Morales [address] [place] [address] Nurse Practitioner 02/27/24 documented as of this encounter Additional Source Comments The information contained in this document represents components of the legal health record. It is not the complete legal health record.[facility]
--- OUTSIDE RECORDS SUMMARY | 2025-01-07 21:56 | XMS_ITS | Encounter Summary ---
Author Organization [facility] Address [facility] [address] [address] Phone Care Team Providers Care Livestock Farm Workers Name Role Phone Artie Meehan MD Unavailable Rina Swenson MD Unavailable Laura Mock MD, DMD Primary Car e Provider Laura Mock MD, DMD Unavailable Laura Mock MD, DMD Unavailable Jakob Bob MD Unavailable [phone] Jsoe Cruz MD Unavailable Laura Mock MD, DMD [...] Description 01/31/2025 1:00 PM EST Office Visit [facility] Cardiovascular Medicine 32 [facility], 5th Floor, [address] [place] [address] Karena Betancur MD [address] [address] [email or web address] 03/08/2025 9:30 AM EST [facility]mission [facility] 45 [facility] 2nd [place] [address] Irineo Ruff MD [address] [place] [address] [email or web address] 03/15/2025 Procedure Pass [facility] Endoscopy Department [address] [place] [address] 03/15/2025 7:30 AM EST Hospital Encounter [facility] Endoscopy Department [address] [place] [address] Irineo Ruff MD [address] [place] [address] [email or web address] 03/15/2025 7:30 AM EST - 03/15/2025 8:15 AM EST Surgery [facility] Endoscopy Department [address] [place] [address] Irineo Ruff MD [address] [place] [address] [email or web address] COLONOSCOPY Scheduled Procedures Name Priority Associated Diagnoses [...] documented as of this encounter Care Teams Livestock Farm Workers Relationship Specialty Start Date End Date Laura Mock MD, DMD [address] [address] [email or web address] PCP - General Internal Medicine 06/04/21 11/11/23 Pcp, Unknown PCP - General 11/12/23 11/16/23 Laura Mock MD, DMD [address] [address] [email or web address] du PCP - General Internal Medicine 11/17/23 12/28/23 Pcp, Unknown PCP - General 02/28/24 03/04/24 Nicole Newell MD [address] [place] [address] PCP - General 03/05/24 05/17/24 Laura Mock MD, DMD [address] [place] [address] [email or web address] du PCP - General Internal Medicine 05/18/24 Artie Meehan MD [address] [place] [address] [place] [address] Internal Medicine 10/26/17 04/23/22 Rina Swenson MD [address] [place] [address] Dr Nichols [facility] [place] [address] Psychiatry 07/09/17 Laura Mock MD, DMD [address] [address] [email or web address] Partners Attributed Provider 09/01/21 07/03/23 Laura Mock MD, DMD [address] [address] [email or web address] du Insurance Assigned Provider 05/31/23 03/01/24 Jakob Bob MD [address] [place] [address] [email or web address] Cardiology 08/22/23 Jose Cruz MD [address] [place] [address], [facility] [address] [place] [address] Cardiology 08/22/23 Laura Mock MD, DMD [address] [address] [email or web address] Partners Attributed Provider 09/01/21 07/03/23 [facility] [phone]. Consulting Provider 08/22/23 [facility] Connect 12/24/23 03/11/24 Cyril Morales [address] [place] [address] Nurse Practitioner 02/27/24 documented as of this encounter Additional Source Comments The information contained in this document represents components of the legal health record. It is not the complete legal health record.[facility]
--- OUTSIDE RECORDS SUMMARY | 2025-01-07 21:56 | XMS_ITS | Encounter Summary ---
Author Organization [facility] Address [address] [employer] [facility] [address] [place] [address] Phone Care Team Providers Care Van Owner Operator Name Role Phone Artie Meehan MD Primary Care Provider [phone] Artie Meehan MD Unavailable Rina Swenson MD Unavailable Laura Mock MD, DMD Primary Car e Provider Laura Mock MD, DMD Unavailable Laura Mock MD, DMD Unavailable Jakob Bob MD Unavailable oJse Cruz MD Unavailable Laura Mock MD, DMD Unavailable Pcp, Unknown Primary Care Provider UnavailLaura Ascencio MD, DMD Primary Car e Provider Pcp, Unknown Primary Care Provider UnavailNicole Arguello MD Primary Care Provide r Laura Mock MD, DMD Primary Car e Provider Encounter Details Date Type Department Care Team (Late st Contact Info) Description 12/16/2019 Ancillary Orders Virtual Department 30 [place] [address] Artie Meehan MD [address] [place] [address] [place] [address] Breast screening Social History Tobacco Use Types [...] [facility] 32 [facility], 5th Floor, [address] [place] [address] Karena Betancur MD [address] [address] [email or web address] 03/08/2025 9:30 AM EST Pre-Admission Testing [facility] 45 [facility] 2nd [place] [address] Irineo Ruff MD 75 [place] [address] [email or web address] 03/15/[address] [facility] Endoscopy Department [address] [place] [address] 03/15/2025 7:30 AM EST Hospital Encounter [facility] Endoscopy Department [address] [place] [address] Irineo Ruff MD [address] [place] [address] [place] [address] [email or web address] 03/15/2025 7:30 AM EST - 03/15/2025 8:[address] [facility] Endoscopy Department [address] [place] [address] Irineo Ruff MD [address] [place] [address], [place] [address] [email or web address] COLONOSCOPY Scheduled Procedures Name Priority Associated [...] documented as of this encounter Care Teams Van Owner Operator Relationship Specialty Start Date End Date Artie Meehan MD [address] [place] [address] PCP - General Internal Medicine 10/26/17 06/03/21 Laura Mock MD, DMD [address] [address] [email or web address] PCP - General Internal Medicine 06/04/21 11/11/23 Pcp, Unknown PCP - General 11/12/23 11/16/23 Laura Mock MD, DMD [address] [address] [email or web address] du PCP - General Internal Medicine 11/17/23 12/28/23 Pcp, Unknown PCP - General 02/28/24 03/04/24 [place] [address] [place] [address] PCP - General 03/05/24 05/17/24 Laura Mock MD, DMD [address] [address] [email or web address] du PCP - General Internal Medicine 05/18/24 Artie Meehan MD [address] [place] [address] [place] [address] Internal Medicine 10/26/17 04/23/22 Rina Swenson MD [address] [place] [address] [place] [address] Psychiatry 07/09/17 Laura Mock MD, DMD [address] [address] [email or web address] du Partners Attributed Provider 09/01/21 07/03/23 Laura Mock MD, DMD [address] [address] [email or web address] du Insurance Assigned Provider 05/31/23 03/01/24 Jakob Bob MD [address] [place] [address] [place] [address] [email or web address] Cardiology 08/22/23 Jose Cruz MD [address] [place] [address], [address] [address] Cardiology 08/22/23 Laura Mock MD, DMD 1 [facility] [address] [place] [address] [email or web address] Partners Attributed Provider 09/01/21 07/03/23 [facility] [phone]. Consulting Provider 08/22/23 [facility] Connect 12/24/23 03/11/24 Cyril Morales [address] [place] [address] Nurse Practitioner 02/27/24 documented as of this encounter Additional Source Comments The information contained in this document represents components of the legal health record. It is not the complete legal health record.[facility]
--- OUTSIDE RECORDS SUMMARY | 2025-01-07 21:56 | XMS_ITS | Encounter Summary ---
Author Organization [facility] Address [facility] [employer] [address] [address] Phone Care Team Providers Care Burial Agent Name Role Phone Rina Swenson MD Unavailable Laura Mock MD, DMD Primary Car e Provider Laura Mock MD, DMD Unavailable Laura Mock MD, DMD Unavailable Jakob Bob MD Unavailable Jose Cruz MD Unavailable [phone] Laura Mock MD, DMD Unavailable Pcp, Unknown [...] Description 01/31/2025 1:00 PM EST Office Visit [facility] Medicine 32 [facility], 5th Floor, [address] [place] [address] Karena Betancur MD [address] [address] [email or web address] 03/08/2025 9:30 AM EST Pre-Admission Testing [facility] 45 [facility] 2nd [place] [address] Irineo Rfuf MD 75 [place] [address] [email or web address] 03/15/2025 Procedure Pass [facility] Endoscopy Department [address] [place] [address] 03/15/2025 7:30 AM EST Hospital Encounter [facility] Endoscopy Department [address] [place] [address] Irineo Ruff MD 75 [facility] [place] [address] [email or web address] 03/15/2025 7:30 AM EST - 03/15/2025 8:15 AM EST Surgery [facility] Endoscopy Department [address] [place] [address] Irineo Ruff MD [address] [place] [address] [place] [address] [email or web address] COLONOSCOPY Scheduled Procedures Name Priority [...] documented as of this encounter Care Teams Burial Agent Relationship Specialty Start Date End Date Laura Mock MD, DMD [address] [address] [email or web address] du PCP - General Internal Medicine 06/04/21 11/11/23 Pcp, Unknown PCP - General 11/12/23 11/16/23 Laura Mock MD, DMD [address] [address] [email or web address] PCP - General Internal Medicine 11/17/23 12/28/23 Pcp, Unknown PCP - General 02/28/24 03/04/24 Nicole Newell MD [address] [place] [id number] PCP - General 03/05/24 05/17/24 Laura Mock MD, DMD [address] [address] [email or web address] du PCP - General Internal Medicine 05/18/24 Rina Swenson MD Psychiatry 07/09/17 Laura Mock MD, DMD [address] [address] [email or web address] du Partners Attributed Provider 09/01/21 07/03/23 Laura Mock MD, DMD [address] [address] [email or web address] du Insurance Assigned Provider 05/31/23 03/01/24 Jakob Bob MD 75 [facility] [place] [address] [email or web address] Cardiology 08/22/23 Jose Cruz MD [address] [place] [address] Cardiology 08/22/23 Laura Mock MD, DMD [address] [address] [email or web address] du Partners Attributed Provider 09/01/21 07/03/23 [facility] [phone]. Consulting Provider 08/22/23 [facility] Connect 12/24/23 03/11/24 Cyril Morales [address] [place] [address] Nurse Practitioner 02/27/24 documented as of this encounter Additional Source Comments The information contained in this document represents components of the legal health record. It is not the complete legal health record.[facility]
--- OUTSIDE RECORDS SUMMARY | 2025-01-07 21:56 | XMS_ITS | Encounter Summary ---
Author Organization [facility] Address [facility] [employer] [address] [address] Phone Care Team Providers Care Electrician Elevator Maintenance Name Role Phone Artie Meehan MD Unavailable [...] Description 01/31/2025 1:00 PM EST Office Visit [facility] Cardiovascular Medicine 32 [facility], 5th Floor, [address] [place] [address] Karena Betancur MD [address] [address] [email or web address] 03/08/2025 9:30 AM EST [facility] 45 [facility] 2nd [place] [address] Irineo Ruff MD [address] [place] [address] [email or web address] 03/15/2025 Procedure Pass [facility] Endoscopy Department [address] [place] [address] 03/15/2025 7:30 AM EST Hospital Encounter [facility] Endoscopy Department [address] [place] [address] Irineo Ruff MD [address] [place] [address] [email or web address] 03/15/2025 7:30 AM EST - 03/15/2025 8:15 AM EST Surgery [facility] Endoscopy Department [address] [place] [address] Irineo Ruff MD [address] [place] [address] [email or web address] COLONOSCOPY Scheduled Procedures Name Priority Associated [...] documented as of this encounter Care Teams Electrician Elevator Maintenance Relationship Specialty Start Date End Date Laura Mock MD, DMD [address] [address] [email or web address] PCP - General Internal Medicine 06/04/21 11/11/23 Pcp, Unknown PCP - General 11/12/23 11/16/23 Laura Mock MD, DMD [address] [address] [email or web address] du PCP - General Internal Medicine 11/17/23 12/28/23 Pcp, Unknown PCP - General 02/28/24 03/04/24 Nicole Newell MD [address] [place] [address] PCP - General 03/05/24 05/17/24 Laura Mock MD, DMD 1 [facility] [address] [place] [address] [email or web address] du PCP - General Internal Medicine 05/18/24 Artie Meehan MD [address] [place] [address] [place] [address] Internal Medicine 10/26/17 04/23/22 Rina Swenson MD [address] [place] [address] [place] [address] Psychiatry 07/09/17 Laura Mock MD, DMD [address] [address] [email or web address] Attributed Provider 09/01/21 07/03/23 Laura Mock MD, DMD [address] [address] [email or web address] Insurance Assigned Provider 05/31/23 03/01/24 Jakob Bob MD [address] [place] [address] [place] [address] [email or web address] Cardiology 08/22/23 Jose Cruz MD [address] [place] [address] Cardiology 08/22/23 Laura Mock MD, DMD [address] [address] [email or web address] Partners Attributed Provider 09/01/21 07/03/23 [facility] [phone]. Consulting Provider 08/22/23 CAROLANN GREWAL Connect 12/24/23 03/11/24 Cyril Morales [address] [place] [address] Nurse Practitioner 02/27/24 documented as of this encounter Additional Source Comments The information contained in this document represents components of the legal health record. It is not the complete legal health record.[facility]
--- OUTSIDE RECORDS SUMMARY | 2025-01-07 21:56 | XMS_ITS | Encounter Summary ---
Author Organization [facility] Address [address] [employer] [facility] [address] [place] [address] Phone Care Team Providers Care Sagger Soak Name Role Phone Artie Meehan MD Primary Care Provider [phone] Artie Meehan MD Unavailable Rina Swenson MD Unavailable Laura Mock MD, DMD Primary Car e Provider Laura Mock MD, DMD Unavailable Laura Mock MD, DMD Unavailable Jakob Bob MD Unavailable [phone] Jose Cruz MD Unavailable Laura Mock MD, DMD Unavailable Pcp, Unknown Primary Care Provider UnavailLaura Ascencio MD, DMD Primary Car e Provider Pcp, Unknown Primary Care Provider UnavailNicole Arguello MD Primary Care Provide r Laura Mock MD, DMD Primary Car e Provider Encounter Details Date Type Department Care Team (Late st Contact Info) Description 04/06/2019 Ancillary Orders Virtual Department 30 [place] [address] Artie Meehan MD [address] [place] [address] [place] [address] Menopausal state Social History Tobacco Use Types [...] [facility] Cardiovascular Medicine 32 [facility], 5th Floor, [address] [place] [address] Karena Betancur MD [address] [address] [email or web address] 03/08/2025 9:30 AM EST Pre-Admission Testing [facility] 45 [facility] 2nd [place] [address] Irineo Ruff MD 75 [place] [address] [email or web address] 03/15/2025 Procedure Pass [facility] Endoscopy Department [address] [place] [address] 03/15/2025 7:30 AM EST Hospital Encounter [facility] Endoscopy Department [address] [place] [address] Irineo Ruff MD [address] [place] [address] [place] [address] [email or web address] 03/15/2025 7:30 AM EST - 03/15/2025 8:15 AM EST Surgery [facility] Endoscopy Department [address] [place] [address] Irineo Ruff MD [address] [place] [address] [place] [address] [email or web address] COLONOSCOPY Scheduled Procedures Name [...] documented as of this encounter Care Teams Sagger Soak Relationship Specialty Start Date End Date Artie Meehan MD [address] [place] [address] [place] [address] PCP - General Internal Medicine 10/26/17 06/03/21 Laura Mock MD, DMD [address] [address] [email or web address] PCP - General Internal Medicine 06/04/21 11/11/23 Pcp, Unknown PCP - General 11/12/23 11/16/23 Laura Mock MD, DMD [address] [address] [email or web address] PCP - General Internal Medicine 11/17/23 12/28/23 Pcp, Unknown PCP - General 02/28/24 03/04/24 [place] [address] [address] PCP - General 03/05/24 05/17/24 Laura Mock MD, DMD [address] [address] [email or web address] PCP - General Internal Medicine 05/18/24 Artie Meehan MD [address] [place] [address] Dr [address] [place] [address] Internal Medicine 10/26/17 04/23/22 Rina Swenson MD [address] [place] [address] Dr [address] [place] [address] Psychiatry 07/09/17 Laura Mock MD, DMD [address] [address] [email or web address] Partners Attributed Provider 09/01/21 07/03/23 Laura Mock MD, DMD [address] [address] [email or web address] du Insurance Assigned Provider 05/31/23 03/01/24 Jakob Bob MD [address] [place] [address] [place] [address] [email or web address] Cardiology 08/22/23 Jsoe Cruz MD [address] [place] [address] 301 [place] [address] Cardiology 08/22/23 Laura Mock MD, DMD 1 [facility] [address] [place] [address] [email or web address] Partners Attributed Provider 09/01/21 07/03/23 [facility] [phone]. Consulting Provider 08/22/23 [facility] Connect 12/24/23 03/11/24 Cyril Morales [address] [place] [address] Nurse Practitioner 02/27/24 documented as of this encounter Additional Source Comments The information contained in this document represents components of the legal health record. It is not the complete legal health record.[facility]
--- OUTSIDE RECORDS SUMMARY | 2025-01-07 21:56 | XMS_ITS | Encounter Summary ---
Author Organization [facility] Address [facility] [employer] [facility] [address] [place] [address] Phone Care Team Providers Care Policewoman Name Role Phone Artie Meehan MD Unavailable Rina Swenson MD Unavailable Laura Mock MD, DMD Primary Car e Provider Laura Mock MD, DMD Unavailable Laura Mock MD, DMD Unavailable Jakob Bob MD Unavailable [phone] Jose Cruz MD Unavailable Laura Mock MD, DMD Unavailable Pcp, Unknown Primary Care Provider UnavailLaura Ascencio MD, DMD Primary Car e Provider Pcp, Unknown Primary Care Provider UnavailNicole Arguello MD Primary Care Provide r Laura Mock MD, DMD Primary Car e Provider Encounter Details Date Type Department Care Team (Late st Contact Info) Description 02/18/2022 Anti-coag visit [facility] Anticoagulation Clinic [address] [place] [address] Rony Amaro, [facility] 1249 [facility] 3rd [place] [address] [email or web address] Social History Tobacco Use Types [...] Description 01/31/2025 1:00 PM EST Office Visit [facility] Cardiovascular Medicine 32 [facility], 5th Floor, [address] [place] [address] Karena Betancur MD [address] [address] [email or web address] 03/08/2025 9:30 AM EST Pre-Admission Testing [facility] [place] [facility] 45 [facility] 2nd [place] [address] Irineo Ruff MD 75 [place] [address] [email or web address] 03/15/2025 Procedure Pass [facility] Endoscopy Department [address] [place] [address] 03/15/2025 7:30 AM EST Hospital Encounter [facility] Endoscopy Department [address] [place] [address] Irineo Ruff MD 75 [facility] [place] [address] [email or web address] 03/15/2025 7:30 AM EST - 03/15/2025 8:15 AM EST Surgery [facility] Endoscopy Department [address] [place] [address] Irineo Ruff MD [address] [place] [address] [place] [address] [email or web address] .[facility] COLONOSCOPY Scheduled Procedures Name Priority Associated [...] documented as of this encounter Care Teams Policewoman Relationship Specialty Start Date End Date Laura Mock MD, DMD [address] [address] [email or web address] PCP - General Internal Medicine 06/04/21 11/11/23 Pcp, Unknown PCP - General 11/12/23 11/16/23 Laura Mock MD, DMD [address] [address] [email or web address] PCP - General Internal Medicine 11/17/23 12/28/23 Pcp, Unknown PCP - General 02/28/24 03/04/24 [place] [address] [place] [address] PCP - General 03/05/24 05/17/24 Laura Mock MD, DMD [address] [address] [email or web address] PCP - General Internal Medicine 05/18/24 Artie Meehan MD [address] [place] [address] Dr [address] [place] [address] Internal Medicine 10/26/17 04/23/22 Rina Swenson MD [address] [place] [address] Dr [address] [place] [address] Psychiatry 07/09/17 Laura Mock MD, DMD [address] [address] [email or web address] Partners Attributed Provider 09/01/21 07/03/23 Laura Mock MD, DMD [address] [address] [email or web address] Insurance Assigned Provider 05/31/23 03/01/24 Jakob Bob MD [address] [place], [place] [address] [place] [address] [email or web address] Cardiology 08/22/23 Jose Cruz MD [address] [place] [address], [address] [place] [address] Cardiology 08/22/23 Laura Mock MD, DMD 1 [facility] [address] [place] [address] [email or web address] Attributed Provider 09/01/21 07/03/23 [facility] [phone]. Consulting Provider 08/22/23 [facility] Connect 12/24/23 03/11/24 Cyril Morales [address] [place] [address] Nurse Practitioner 02/27/24 documented as of this encounter Additional Source Comments The information contained in this document represents components of the legal health record. It is not the complete legal health record.[facility]
--- OUTSIDE RECORDS SUMMARY | 2025-01-07 21:56 | XMS_ITS | Encounter Summary ---
Author Organization [facility] Address [address] [facility] [address] [place] [address] Phone Care Team Providers Care Hospital Monitor Name Role Phone Artie Meehan MD Primary Care Provider [phone] Artie Meehan MD Unavailable Rina Swenson MD Unavailable Laura Mock MD, DMD Primary Car e Provider Laura Mock MD, DMD Unavailable Laura Mock MD, DMD Unavailable Jakob Bob MD Unavailable [phone] Jose Cruz MD Unavailable Laura Mock MD, [...] (Late st Contact Info) Description 12/09/2017 Telephone [facility] Urology [address] [facility] ASB2-3 [place] [address] Maureen De Los [email or web address] Question regarding Symtoms (Former pt. of Dr. [...] Description 01/31/2025 1:00 PM EST Office Visit [facility] Medicine [address] [facility], 5th Floor, [address] [place] [address] Karena Betancur MD [address] [address] [email or web address] 03/08/2025 9:30 AM EST [facility] [address] [facility] 2nd [place] [address] Irineo Ruff MD [address] [place] [address] [place] [address] [email or web address] 03/15/2025 Procedure Pass [facility] Endoscopy Department [address] [place] [address] 03/15/2025 7:30 AM EST Hospital Encounter [facility] Endoscopy Department [address] [place] [address] Irineo Ruff MD [address] [place] [address] [place] [address] [email or web address] 03/15/2025 7:30 AM EST - 03/15/2025 8:15 AM EST Surgery [facility] Endoscopy Department [address] [place] [address] Irineo Ruff MD [address] [place] [address] End[place] [address] [email or web address] COLONOSCOPY Scheduled Procedures Name Priority Associated [...] documented as of this encounter Care Teams Hospital Monitor Relationship Specialty Start Date End Date Artie Meehan MD [address] [place] [address] [place] [address] PCP - General Internal Medicine 10/26/17 06/03/21 Laura Mock MD, DMD [address] [address] [email or web address] PCP - General Internal Medicine 06/04/21 11/11/23 Pcp, Unknown PCP - General 11/12/23 11/16/23 Laura Mock MD, DMD [address] [address] [email or web address] PCP - General Internal Medicine 11/17/23 12/28/23 Pcp, Unknown PCP - General 02/28/24 03/04/24 [place] [address] [address] PCP - General 03/05/24 05/17/24 Laura Mock MD, DMD [address] [address] [email or web address] so PCP - General Internal Medicine 05/18/24 Artie Meehan MD [address] [place] [address] [address] Internal Medicine 10/26/17 04/23/22 Rina Swenson MD [address] [place] [address] [address] Psychiatry 07/09/17 Laura Mock MD, DMD [address] [address] [email or web address] Partners Attributed Provider 09/01/21 07/03/23 Laura Mock MD, DMD [address] [address] [email or web address] du Insurance Assigned Provider 05/31/23 03/01/24 Jakob Bob MD [address] [place] [address] [address] [place] [address] [email or web address] Cardiology 08/22/23 Jose Cruz MD 22 [facility], [address] [place] [address] [email or web address] Cardiology 08/22/23 Laura Mock MD, DMD 1 [facility] [address] [place] [address] [email or web address]. [email or web address] Partners Attributed Provider 09/01/21 07/03/23 [facility] [phone]. Consulting Provider 08/22/23 [facility] Connect 12/24/23 03/11/24 Cyril Morales [address] [place] [phone] Nurse Practitioner 02/27/24 documented as of this encounter Additional Source Comments The information contained in this document represents components of the legal health record. It is not the complete legal health record.[facility]
--- OUTSIDE RECORDS SUMMARY | 2025-01-07 21:56 | XMS_ITS | Encounter Summary ---
Author Organization [facility] Address [facility] [employer] [address] [address] Phone Care Team Providers Care Shingle Weaver Name Role Phone Artie Meehan MD Unavailable Rina Swenson MD Unavailable Laura Mock MD, DMD Primary Car e Provider Laura Mock MD, DMD Unavailable Laura Mock MD, DMD Unavailable Jakob Bob MD Unavailable [phone] Jose Cruz MD Unavailable [phone] Laura Mock MD, DMD Unavailable Pcp, Unknown [...] [facility] Cardiovascular Medicine [address] [facility], 5th Floor, [address] [place] [address] Karena Betancur MD [address] [address] [email or web address] 03/08/2025 9:30 AM EST [facility] [address] [facility] 2nd [place] [address] Irineo Ruff MD [address] [place] [address] [email or web address] 03/15/2025 [facility] Endoscopy Department [address] [place] [address] 03/15/2025 7:30 AM EST Hospital Encounter [facility] Endoscopy Department [address] [place] [address] Irineo Ruff MD [address] [place] [address] [email or web address] 03/15/2025 7:30 AM EST - 03/15/2025 8:15 AM EST Surgery [facility] Endoscopy Department [address] [place] [address] Irineo Ruff MD [address] [place] [address] [email or web address] [email or web address] Scheduled Procedures Name Priority Associated [...] documented as of this encounter Care Teams Shingle Weaver Relationship Specialty Start Date End Date Laura Mock MD, DMD [address] [address] [email or web address] PCP - General Internal Medicine 06/04/21 11/11/23 Pcp, Unknown PCP - General 11/12/23 11/16/23 Laura Mock MD, DMD [address] [address] [email or web address] PCP - General Internal Medicine 11/17/23 12/28/23 Pcp, Unknown PCP - General 02/28/24 03/04/24 Nicole Newell MD [address] [place] [address] PCP - General 03/05/24 05/17/24 Laura Mock MD, DMD [address] [place] [address] [email or web address] PCP - General Internal Medicine 05/18/24 Artie Meehan MD [address] [place] [address] [place] [address] Internal Medicine 10/26/17 04/23/22 Rina Swenson MD [address] [place] [address] [place] [address] Psychiatry 07/09/17 Laura Mock MD, DMD [address] [address] [email or web address] Partners Attributed Provider 09/01/21 07/03/23 Laura Mock MD, DMD [address] [address] [email or web address] du Insurance Assigned Provider 05/31/23 03/01/24 Jakob Bob MD [address] [place] [address] [email or web address] Cardiology 08/22/23 Jose Cruz MD [address] [place] [address], [facility] [address] [place] [address] Cardiology 08/22/23 Laura Mock MD, DMD [address] [address] [email or web address] Partners Attributed Provider 09/01/21 07/03/23 [facility] [phone]. Consulting Provider 08/22/23 [facility] Connect 12/24/23 03/11/24 Cyril Morales [address] [place] [phone] Nurse Practitioner 02/27/24 documented as of this encounter Additional Source Comments The information contained in this document represents components of the legal health record. It is not the complete legal health record.[facility]
--- OUTSIDE RECORDS SUMMARY | 2025-01-07 21:57 | XMS_ITS | Encounter Summary ---
Author Organization [facility] Address [address] [place] [address] Phone Care Team Providers Care Head Boys Tennis Coach Name Role Phone Artie Meehan MD Unavailable Rina Swenson MD Unavailable [phone] Laura Mock MD, DMD Primary Car e Provider Laura Mock MD, DMD Unavailable Laura Mock MD, DMD Unavailable Jakob Bob MD Unavailable [phone] Jose Cruz MD Unavailable Laura Mock MD, [...] Mengyan, PharmD [address] [place] [address] [email or web address] Social History Tobacco Use Types [...] Description 01/31/2025 1:00 PM EST Office [facility] Cardiovascular Medicine [address] [facility], 5th Floor, [address] [place] [address] Karena Betancur MD [address] [address] [email or web address] 03/08/2025 9:30 AM EST Pre-Admission Testing [facility] [address] [facility] 2nd [place] [address] Irineo Ruff MD [address] [place] [address] [place] [address] [email or web address] 03/15/2025 Procedure Pass [facility] Endoscopy Department [address] [place] [address] 03/15/2025 7:30 AM EST Hospital Encounter [facility] Endoscopy Department [address] [place] [address] Irineo Ruff MD [address] [place] [address] [place] [address] [email or web address] 03/15/2025 7:30 AM EST - 03/15/2025 8:15 AM EST Surgery [facility] Endoscopy Department [address] [place] [address] Irineo Ruff MD [address] [place] [address], [place] [address] [email or web address] COLONOSCOPY Scheduled Procedures Name Priority [...] as of this encounter Care Teams Head Boys Tennis Coach Relationship Specialty Start Date End Date Laura Mock MD, DMD [address] [address] [email or web address] PCP - General Internal Medicine 06/04/21 11/11/23 Pcp, Unknown PCP - General 11/12/23 11/16/23 Laura Mock MD, DMD [address] [address] [email or web address] PCP - General Internal Medicine 11/17/23 12/28/23 Pcp, Unknown PCP - General 02/28/24 03/04/24 [place] [address] [place] [id number] PCP - General 03/05/24 05/17/24 Laura Mock MD, DMD [address] [address] [email or web address] PCP - General Internal Medicine 05/18/24 Artie Meehan MD [address] [place] [address] [place] [address] Internal Medicine 10/26/17 04/23/22 Rina Swenson MD [address] [place] [address] [place] [address] Psychiatry 07/09/17 Laura Mock MD, DMD [address] [address] [email or web address] Partners Attributed Provider 09/01/21 07/03/23 Laura Mock MD, DMD [address] [address] [email or web address] Insurance Assigned Provider 05/31/23 03/01/24 Jakob Bob MD [address] [place] [address] [email or web address] Cardiology 08/22/23 Jose Cruz MD [address] [place] [address] Cardiology 08/22/23 Laura Mock MD, DMD [address] [address] [email or web address] Partners Attributed Provider 09/01/21 07/03/23 [facility] [phone]. Consulting Provider 08/22/23 [facility] Connect 12/24/23 03/11/24 Cyril Morales [address] [place] [address] Nurse Practitioner 02/27/24 documented as of this encounter Additional Source Comments The information contained in this document represents components of the legal health record. It is not the complete legal health record.[facility]
--- OUTSIDE RECORDS SUMMARY | 2025-01-07 21:57 | XMS_ITS | Encounter Summary ---
Author Organization [facility] Address [address] [address] [place] [address] Phone Care Team Providers Care Fleet Technician Name Role Phone Rina Swenson MD Unavailable Laura Mock MD, DMD Primary Car e Provider Laura Mock MD, DMD Unavailable Jakob Bob MD Unavailable [phone] Jose Cruz MD Unavailable [phone] Pcp, Unknown Primary Care Provider UnavailLaura Ascencio MD, DMD Primary Car e Provider Pcp, Unknown Primary Care Provider UnavailNicole Arguello MD Primary Care Provide r Laura Mock MD, DMD Primary Car e Provider Encounter Details Date Type Department Care Team (Late st Contact Info) Description 08/26/2023 Procedure Pass [facility] Endoscopy Department [address] [place] [address] Social History Tobacco Use Types Packs/Day [...] Description 01/31/2025 1:00 PM EST Office Visit [facility] Cardiovascular Medicine 32 [facility], 5th Floor, [address] [place] [address] Karena Betancur MD [address] [address] [email or web address] 03/08/2025 9:30 AM EST Pre-Admission Testing [facility] [address] [place] [address] 2nd [place] [address] Irineo Ruff MD [address] [place] [address] [email or web address] 03/15/2025 Procedure Pass [facility] Endoscopy Department [address] [place] [address] 03/15/2025 7:30 AM EST Hospital Encounter [facility] Endoscopy Department [address] [place] [address] Irineo Ruff MD [address] [place] [address] [email or web address] 03/15/2025 7:30 AM EST - 03/15/2025 8:15 AM EST Surgery [facility] Endoscopy Department [address] [place] [address] Irineo Ruff MD [address] [place] [address], [place] [address] [email or web address] COLONOSCOPY Scheduled Procedures Name Priority Associated [...] documented as of this encounter Care Teams Fleet Technician Relationship Specialty Start Date End Date Laura Mock MD, DMD [address] [address] [email or web address] PCP - General Internal Medicine 06/04/21 11/11/23 Pcp, Unknown PCP - General 11/12/23 11/16/23 Laura Mock MD, DMD [address] [address] [email or web address] PCP - General Internal Medicine 11/17/23 12/28/23 Pcp, Unknown PCP - General 02/28/24 03/04/24 Nicole Newell MD [address] [place] [address] PCP - General 03/05/24 05/17/24 Laura Mock MD, DMD 1 [facility] [address] [place] [address] [email or web address] PCP - General Internal Medicine 05/18/24 Rina Swenson MD Psychiatry 07/09/17 Laura Mock MD, DMD [address] [address] [email or web address] Insurance Assigned Provider 05/31/23 03/01/24 Jakob Bob MD [address] [place] [address] [email or web address] Cardiology 08/22/23 Jose Cruz MD [address] [place] [address], [facility] [address] [place] [address] [email or web address] Cardiology 08/22/23 [facility] [phone]. Consulting Provider 08/22/23 [facility] Connect 12/24/23 03/11/24 Cyril Morales [address] [place] [address] Nurse Practitioner 02/27/24 documented as of this encounter Additional Source Comments The information contained in this document represents components of the legal health record. It is not the complete legal health record.[facility]
--- OUTSIDE RECORDS SUMMARY | 2025-01-07 21:57 | XMS_ITS | Encounter Summary ---
Author Organization [facility] Address [address] [facility] [address] [place] [address] Phone Care Team Providers Care Electrical Superintendent Name Role Phone Rina Swenson MD Unavailable [...] st Contact Info) Description 07/26/2022 Anti-coag visit [facility] Anticoagulation Clinic 75 [place], [place] [phone] [facility] [address] [place] [address] [email or web address] Social History Tobacco Use Types [...] [facility] [address] [place], 5th Floor, [address] [place] [address] Karena Betancur MD [address] [address] [email or web address] 03/08/2025 9:30 AM EST Pre-Admission Testing [facility] [place] 45 [facility] 2nd [place] [address] Irineo Ruff MD 75 [facility] [place] [address] [email or web address] 03/15/2025 Procedure Pass [facility] Endoscopy Department 75 [place] [address] 03/15/2025 7:30 AM EST Hospital Encounter [facility] Endoscopy Department [address] [place] [address] Irineo Ruff MD [address] [place] [address] [place] [address] [email or web address] 03/15/2025 7:30 AM EST - 03/15/2025 8:15 AM EST Surgery [facility] Endoscopy Department [address] [place] [address] Irineo Ruff MD [address] [place] [address] [place] [address] [email or web address] COLONOSCOPY Scheduled Procedures Name Priority Associated Diagnoses [...] documented as of this encounter Care Teams Electrical Superintendent Relationship Specialty Start Date End Date Laura Mock MD, DMD 1 [facility] [address] [place] [address] [email or web address] du PCP - General Internal Medicine 06/04/21 11/11/23 Pcp, Unknown PCP - General 11/12/23 11/16/23 Laura Mock MD, DMD 1 [facility] [address] [place] [address] [email or web address] du PCP - General Internal Medicine 11/17/23 12/28/23 Pcp, Unknown PCP - General 02/28/24 03/04/24 [place] [address] [place] [address] PCP - General 03/05/24 05/17/24 Laura Mock MD, DMD [address] [address] [email or web address] du PCP - General Internal Medicine 05/18/24 Rina Swenson MD Psychiatry 07/09/17 Laura Mock MD, DMD [address] [address] [email or web address] du Partners Attributed Provider 09/01/21 07/03/23 Laura Mock MD, DMD [address] [address] [email or web address] du Insurance Assigned Provider 05/31/23 03/01/24 Jakob Bob MD [address] [place] [address] [place] [address] [email or web address] Cardiology 08/22/23 Jose Cruz MD [address] [place] [address], [facility] 301 [place] [address] Cardiology 08/22/23 Laura Mock MD, DMD 1 [facility] [address] [place] [address] [email or web address] Partners Attributed Provider 09/01/21 07/03/23 [facility] [phone]. Consulting Provider 08/22/23 [facility] Connect 12/24/23 03/11/24 Cyril Morales [facility] [place] [address] Nurse Practitioner 02/27/24 documented as of this encounter Additional Source Comments The information contained in this document represents components of the legal health record. It is not the complete legal health record.[facility]
--- OUTSIDE RECORDS SUMMARY | 2025-01-07 21:57 | XMS_ITS | Encounter Summary ---
Author Organization [facility] Address [address] [place] [address] [place] [address] Phone Care Team Providers Care Production Pattern Maker Name Role Phone Rina Swenson MD Unavailable Laura Mock MD, DMD Primary Car e Provider Lauar Mock MD, DMD Unavailable Laura Mock MD, [...] st Contact Info) Description 07/18/2022 Anti-coag visit [facility] Anticoagulation Clinic [address] [place] [phone] Kenyatta [email or web address] Social History Tobacco Use Types Packs/Day [...] Description 01/31/2025 1:00 PM EST Office Visit [facility] Cardiovascular Medicine 32 [facility], 5th Floor, [address] [place] [address] Karena Betancur MD [address] [address] [email or web address] 03/08/2025 9:30 AM EST Pre-Admission Testing [facility] 45 [facility] 2nd [place] [address] Irineo Ruff MD 75 [facility] [place] [address] [email or web address] 03/15/2025 Procedure Pass [facility] Endoscopy Department [address] [place] [address] 03/15/2025 7:30 AM EST Hospital Encounter [facility] Endoscopy Department [address] [place] [address] Irineo Ruff MD [address] [place] [address] [place] [address] [email or web address] 03/15/2025 7:30 AM EST - 03/15/2025 8:15 AM EST Surgery [facility] Endoscopy Department [address] [place] [address] Irineo Ruff MD [address] [place] [address] [place] [address] [email or web address] Scheduled Procedures Name Priority Associated Diagnoses [...] documented as of this encounter Care Teams Production Pattern Maker Relationship Specialty Start Date End Date Laura Mock MD, DMD [address] [address] [email or web address] PCP - General Internal Medicine 06/04/21 11/11/23 Pcp, Unknown PCP - General 11/12/23 11/16/23 Laura Mock MD, DMD 1 [facility] [address] [place] [address] [email or web address] PCP - General Internal Medicine 11/17/23 12/28/23 Pcp, Unknown PCP - General 02/28/24 03/04/24 [place] [address] [address] PCP - General 03/05/24 05/17/24 Laura Mock MD, DMD [address] [address] [email or web address] PCP - General Internal Medicine 05/18/24 Rina Swenson MD Psychiatry 07/09/17 Laura Mock MD, DMD [address] [address] [email or web address] Partners Attributed Provider 09/01/21 07/03/23 Laura Mock MD, DMD [address] [address] [email or web address] Insurance Assigned Provider 05/31/23 03/01/24 Jakob Bob MD [address] [place] [address] [place] [address] [email or web address] Cardiology 08/22/23 Jose Cruz MD [address] [place] [address], [address] [place] [address] Cardiology 08/22/23 Laura Mock MD, DMD [address] [address] [email or web address] Attributed Provider 09/01/21 07/03/23 [facility] [phone]. Consulting Provider 08/22/23 [facility] Connect 12/24/23 03/11/24 Cyril Morales [facility] [place] [address] Nurse Practitioner 02/27/24 documented as of this encounter Additional Source Comments The information contained in this document represents components of the legal health record. It is not the complete legal health record.[facility]
--- OUTSIDE RECORDS SUMMARY | 2025-01-07 21:57 | XMS_ITS | Encounter Summary ---
Author Organization [facility] Address [address] [facility] [address] [place] [address] Phone Care Team Providers Care Physician Allergist Immunologist Name Role Phone Rina Swenson MD Unavailable Laura Mock MD, DMD Primary Car e Provider Laura Mock MD, DMD Unavailable Laura Mock MD, DMD Unavailable Jakob Bob MD Unavailable [phone] Jose Cruz MD Unavailable [phone] Laura Mock MD, DMD Unavailable Pcp, Unknown Primary Care Provider UnavailLaura Ascencio MD, DMD Primary Car e Provider Pcp, Unknown Primary Care Provider UnavailNicole Arguello MD Primary Care Provide r Laura Mock MD, DMD Primary Car e Provider Encounter Details Date Type Department Care Team (Late st Contact Info) Description 12/25/2022 Procedure Pass [address] [address] Social History Tobacco Use Types Packs/Day Years [...] Description 01/31/2025 1:00 PM EST Office Visit [facility] Cardi[facility] Medicine 32 [facility], 5th Floor, [address] [place] [address] Karena Betancur MD [address] [address] [email or web address] 03/08/2025 9:30 AM EST Pre-Admission Testing [facility] 45 [facility] 2nd [place] [address] Irineo Ruff MD [address] [place] [address] [email or web address] 03/15/2025 Procedure Pass [facility] Endoscopy Department [address] [place] [address] 03/15/2025 7:30 AM EST Hospital Encounter [facility] Endoscopy Department [address] [place] [address] Irineo Ruff MD [address] [place] [address] [place] [address] [email or web address] 03/15/2025 7:30 AM EST - 03/15/2025 8:15 AM EST Surgery [facility] Endoscopy Department [address] [place] [address] Irineo Ruff MD [address] [place] [address] [place] [address] [email or web address] COLONOSCOPY Scheduled Procedures Name [...] documented as of this encounter Care Teams Physician Allergist Immunologist Relationship Specialty Start Date End Date Laura Mock MD, DMD [address] [address] [email or web address] PCP - General Internal Medicine 06/04/21 11/11/23 Pcp, Unknown PCP - General 11/12/23 11/16/23 Laura Mock MD, DMD [address] [address] [email or web address] PCP - General Internal Medicine 11/17/23 12/28/23 Pcp, Unknown PCP - General 02/28/24 03/04/24 [place] [address] [address] PCP - General 03/05/24 05/17/24 Laura Mock MD, DMD [address] [address] [email or web address] du PCP - General Internal Medicine 05/18/24 Rina Swenson MD Psychiatry 07/09/17 Laura Mock MD, DMD [address] [address] [email or web address] Partners Attributed Provider 09/01/21 07/03/23 Laura Mock MD, DMD [address] [address] [email or web address] du Insurance Assigned Provider 05/31/23 03/01/24 Jakob Bob MD [facility] [place] [address] [email or web address] Cardiology 08/22/23 Jose Cruz MD [address] [place] [address], [address] [place] [address] Cardiology 08/22/23 Laura Mock MD, DMD [address] [address] [email or web address] Partners Attributed Provider 09/01/21 07/03/23 [facility] [phone]. Consulting Provider 08/22/23 [facility] Connect 12/24/23 03/11/24 Cyril Morales [facility] [place] [address] Nurse Practitioner 02/27/24 documented as of this encounter Additional Source Comments The information contained in this document represents components of the legal health record. It is not the complete legal health record.[facility]
--- OUTSIDE RECORDS SUMMARY | 2025-01-07 21:57 | XMS_ITS | Encounter Summary ---
Author Organization [facility] Address [address] [employer] [facility] [address] [place] [address] Phone Care Team Providers Care Clinical Laboratory Manager Name Role Phone Artie Meehan MD Primary Care Provider [phone] Artie Meehan MD Unavailable Rina Swenson MD Unavailable Laura Mock MD, DMD Primary Car e Provider Laura Mock MD, DMD Unavailable Laura Mock MD, DMD Unavailable Jakob Bob MD Unavailable [phone] Jose Cruz MD Unavailable [phone] Laura Mock MD, DMD Unavailable Pcp, Unknown Primary Care Provider UnavailLaura Ascencio MD, DMD Primary Car e Provider Pcp, Unknown Primary Care Provider UnavailNicole Arguello MD Primary Care Provide r Laura Mock MD, DMD Primary Car e Provider Encounter Details Date Type Department Care Team (Late st Contact Info) Description 12/16/2019 Procedure Pass [address] [address] Social History Tobacco Use Types Packs/Day Years [...] [facility] 32 [facility], 5th Floor, [address] [place] [address] Karena Betancur MD [address] [address] [email or web address] 03/08/2025 9:30 AM EST [facility]mission [facility] [address] [place] [address] 2nd [place] [address] Irineo Ruff MD [address] [place] [address] [email or web address] 03/15/2025 Procedure Pass [facility] Endoscopy Department [address] [place] [address] 03/15/2025 7:30 AM EST Hospital Encounter [facility] Endoscopy Department [address] [place] [address] Irineo Ruff MD [address] [place] [address] [email or web address] 03/15/2025 7:30 AM EST - 03/15/2025 8:15 AM EST Surgery [facility] Endoscopy Department [address] [place] [address] Irineo Ruff MD [address] [place] [address] [place] [address] [email or web address] [email or web address] Scheduled Procedures Name Priority Associated Diagnoses [...] as of this encounter Care Teams Clinical Laboratory Manager Relationship Specialty Start Date End Date Artie Meehan MD [address] [place] [address] PCP - General Internal Medicine 10/26/17 06/03/21 Laura Mock MD, DMD [address] [address] [email or web address] PCP - General Internal Medicine 06/04/21 11/11/23 Pcp, Unknown PCP - General 11/12/23 11/16/23 Laura Mock MD, DMD [address] [address] [email or web address] du PCP - General Internal Medicine 11/17/23 12/28/23 Pcp, Unknown PCP - General 02/28/24 03/04/24 [place] [address] [address] PCP - General 03/05/24 05/17/24 Laura Mock MD, DMD [address] [address] [email or web address] du PCP - General Internal Medicine 05/18/24 Artie Meehan MD [address] [place] [address] [address] [place] [address] Internal Medicine 10/26/17 04/23/22 Rina Swenson MD [address] [place] [address] Dr [address] [place] [address] Psychiatry 07/09/17 Laura Mock MD, DMD [address] [address] [email or web address] du Partners Attributed Provider 09/01/21 07/03/23 Laura Mock MD, DMD [address] [address] [email or web address] du Insurance Assigned Provider 05/31/23 03/01/24 Jakob Bob MD [address] [place] [address] [address] [place] [address] [email or web address] Cardiology 08/22/23 Jose Cruz MD [address] [place] [address], [facility] [address] [place] [address] Cardiology 08/22/23 Laura Mock MD, DMD 1 [facility] [address] [place] [address] [email or web address] Partners Attributed Provider 09/01/21 07/03/23 [facility] [phone]. Consulting Provider 08/22/23 [facility] Connect 12/24/23 03/11/24 Cyril Morales [facility] [place] [address] Nurse Practitioner 02/27/24 documented as of this encounter Additional Source Comments The information contained in this document represents components of the legal health record. It is not the complete legal health record.[facility]
--- OUTSIDE RECORDS SUMMARY | 2025-01-07 21:57 | XMS_ITS | Encounter Summary ---
Author Organization [facility] Address [facility] [employer] [facility] [address] [place] [address] Phone Care Team Providers Care Microchip Specialist Name Role Phone Artie Meehan MD [...] st Contact Info) Description 09/13/2021 Anti-coag visit [facility] Anticoagulation Clinic [address] [place] [address] Abbie Prieto, PharmD 1249 [facility] [address] [place] [address] [email or web address] Social History Tobacco Use [...] Description 01/31/2025 1:00 PM EST Office Visit [facility] 32 [facility], 5th Floor, [address] [place] [address] Karena Betancur MD [address] [address] [email or web address] 03/08/2025 9:30 AM EST Pre-Admission Testing [facility] 45 [facility] 2nd [place] [address] Irineo Ruff MD 75 [facility] [place] [address] [email or web address] 03/15/[address] [facility] Endoscopy Department [address] [place] [address] 03/15/2025 7:30 AM EST Hospital Encounter [facility] Endoscopy Department [address] [place] [address] Irineo Ruff MD 75 [facility] [place] [address] [email or web address] 03/15/2025 7:30 AM EST - 03/15/2025 8:[address] [facility] Endoscopy Department [address] [place] [address] Irineo Ruff MD [address] [place] [address] [place] [address] [email or web address] .[email or web address] COLONOSCOPY Scheduled Procedures Name Priority [...] documented as of this encounter Care Teams Microchip Specialist Relationship Specialty Start Date End Date Laura Mock MD, DMD [address] [address] [email or web address] du PCP - General Internal Medicine 06/04/21 11/11/23 Pcp, Unknown PCP - General 11/12/23 11/16/23 Laura Mock MD, DMD [address] [address] [email or web address] PCP - General Internal Medicine 11/17/23 12/28/23 Pcp, Unknown PCP - General 02/28/24 03/04/24 Nicole [place] [address] [place], [place] [id number] PCP - General 03/05/24 05/17/24 Laura Mock MD, DMD [address] [address] [email or web address] du PCP - General Internal Medicine 05/18/24 Artie Meehan MD [address] [place] [address] Dr [address] [place] [address] Internal Medicine 10/26/17 04/23/22 Rina Swenson MD [address] [place] [address] Dr [address] [place] [address] [place] [address] Psychiatry 07/09/17 Laura Mock MD, DMD [address] [address] [email or web address] Partners Attributed Provider 09/01/21 07/03/23 Laura Mock MD, DMD [address] [address] [email or web address] Insurance Assigned Provider 05/31/23 03/01/24 Jakob Bob MD [address] [place] [address] [place] [address] [email or web address] Cardiology 08/22/23 Jose Cruz MD [address] [place] [address], [address] [address] Cardiology 08/22/23 Laura Mock MD, DMD 1 [facility] [address] [place] [address] [email or web address] Partners Attributed Provider 09/01/21 07/03/23 [facility] [phone]. Consulting Provider 08/22/23 [facility]OL[facility] Connect 12/24/23 03/11/24 Cyril Morales [address] [place] [address] Nurse Practitioner 02/27/24 documented as of this encounter Additional Source Comments The information contained in this document represents components of the legal health record. It is not the complete legal health record.[facility]
--- OUTSIDE RECORDS SUMMARY | 2025-01-07 21:57 | XMS_ITS | Encounter Summary ---
Author Organization [facility] Address [facility] [address] [address] Phone Care Team Providers Care Belt Brander Name Role Phone Rina Swenson MD Unavailable Laura Mock MD, DMD Primary Car e Provider Laura Mock MD, DMD Unavailable Laura Mock MD, DMD Unavailable Jakob Bob MD Unavailable Jose Cruz MD Unavailable [phone] Laura Mock MD, DMD Unavailable Pcp, Unknown [...] Description 01/31/2025 1:00 PM EST Office Visit [facility] Cardiovascular Medicine 32 [facility], 5th Floor, [address] [place] [address] Karena Betancur MD [address] [address] [email or web address] 03/08/2025 9:30 AM EST Pre-Admission Testing [facility] 45 [facility] 2nd [place] [address] Irineo Ruff MD 75 [place] [address] [email or web address] 03/15/2025 Procedure Pass [facility] Endoscopy Department [address] [place] [address] 03/15/2025 7:30 AM EST Hospital Encounter [facility] Endoscopy Department [address] [place] [address] Irineo Ruff MD 75 [facility] [place] [address] [email or web address] 03/15/2025 7:30 AM EST - 03/15/2025 8:15 AM EST Surgery [facility] Endoscopy Department [address] [place] [address] Irineo Ruff MD [address] [place] [address] [place] [address] [email or web address] [email or web address] Scheduled Procedures Name Priority Associated Diagnoses [...] documented as of this encounter Care Teams Belt Brander Relationship Specialty Start Date End Date Laura Mock MD, DMD [address] [address] [email or web address] PCP - General Internal Medicine 06/04/21 11/11/23 Pcp, Unknown PCP - General 11/12/23 11/16/23 Laura Mock MD, DMD [address] [address] [email or web address] PCP - General Internal Medicine 11/17/23 12/28/23 Pcp, Unknown PCP - General 02/28/24 03/04/24 Nicole Newell MD [address] [place] [address] [id number] PCP - General 03/05/24 05/17/24 Laura Mock MD, DMD [address] [address] [email or web address] PCP - General Internal Medicine 05/18/24 Rina Swenson MD Psychiatry 07/09/17 Laura Mock MD, DMD [address] [address] [email or web address] Partners Attributed Provider 09/01/21 07/03/23 Laura Mock MD, DMD [address] [address] [email or web address] du Insurance Assigned Provider 05/31/23 03/01/24 Jakob Bob MD 75 [facility] [place] [address] [email or web address] Cardiology 08/22/23 Jose Cruz MD [address] [place] [address] Cardiology 08/22/23 Laura Mock MD, DMD [address] [address] [email or web address] du Partners Attributed Provider 09/01/21 07/03/23 [facility] [phone]. Consulting Provider 08/22/23 [facility] Connect 12/24/23 03/11/24 Cyril Morales [address] [place] [address] Nurse Practitioner 02/27/24 documented as of this encounter Additional Source Comments The information contained in this document represents components of the legal health record. It is not the complete legal health record.[facility]
--- OUTSIDE RECORDS SUMMARY | 2025-01-07 21:58 | XMS_ITS | Encounter Summary ---
Author Organization [facility] Address [address] [employer] [facility] [address] [place] [address] Phone Care Team Providers Care Box Fabricator Name Role Phone Artie Meehan MD Unavailable Rina Swenson MD Unavailable Laura Mock MD, DMD Primary Car e Provider Laura Mock MD, DMD Unavailable Laura Mock MD, DMD Unavailable Jakob Bob MD Unavailable [phone] Jose Cruz MD Unavailable [phone] Laura Mock MD, DMD Unavailable Pcp, Unknown Primary Care Provider UnavailLaura Ascencio MD, DMD Primary Car e Provider Pcp, Unknown Primary Care Provider UnavailNicole Arguello MD Primary Care Provide r Laura Mock MD, DMD Primary Car e Provider Encounter Details Date Type Department Care Team (Late st Contact Info) Description 09/07/2021 Anti-coag visit [facility] Anticoagulation Clinic [address] [place] [address] Kenyatta Gamez, PharmD [email or web address] Social History Tobacco Use [...] [facility] 32 [facility], 5th Floor, [address] [place] [address] Karena Betancur MD [address] [address] [email or web address] 03/08/2025 9:30 AM EST Pre-Admission Testing [facility] [address] [place] [address] 2nd [place] [address] Irineo Ruff MD [address] [place] [address] [email or web address] 03/15/2025 Procedure Pass [facility] Endoscopy Department [address] [place] [address] 03/15/2025 7:30 AM EST Hospital Encounter [facility] Endoscopy Department [address] [place] [address] Irineo Ruff MD [address] [place] [address] [email or web address] 03/15/2025 7:30 AM EST - 03/15/2025 8:15 AM EST Surgery [facility] Endoscopy Department [address] [place] [address] Irineo Ruff MD [address] [place] [address] [place] [address] [email or web address] COLONOSCOPY Scheduled Procedures Name Priority [...] as of this encounter Care Teams Box Fabricator Relationship Specialty Start Date End Date Laura Mock MD, DMD [address] [address] [email or web address] PCP - General Internal Medicine 06/04/21 11/11/23 Pcp, Unknown PCP - General 11/12/23 11/16/23 Laura Mock MD, DMD [address] [address] [email or web address] du PCP - General Internal Medicine 11/17/23 12/28/23 Pcp, Unknown PCP - General 02/28/24 03/04/24 [place] [address] [address] PCP - General 03/05/24 05/17/24 Laura Mock MD, DMD [address] [address] [email or web address] du PCP - General Internal Medicine 05/18/24 Artie Meehan MD [address] [place] [address] [place] [address] Internal Medicine 10/26/17 04/23/22 Rina Swenson MD [address] [place] [address] Dr [address] [place] [address] Psychiatry 07/09/17 Laura Mock MD, DMD [address] [address] [email or web address] du Partners Attributed Provider 09/01/21 07/03/23 Laura Mock MD, DMD [address] [address] [email or web address] Insurance Assigned Provider 05/31/23 03/01/24 Jakob Bob MD [address] [place] [address] [place] [address] [email or web address] Cardiology 08/22/23 Jose Cruz MD [address] [place] [address] Cardiology 08/22/23 Laura Mock MD, DMD [address] [address] [email or web address] Partners Attributed Provider 09/01/21 07/03/23 [facility] [phone]. Consulting Provider 08/22/23 [facility] Connect 12/24/23 03/11/24 Cyril Morales [address] [place] [address] Nurse Practitioner 02/27/24 documented as of this encounter Additional Source Comments The information contained in this document represents components of the legal health record. It is not the complete legal health record.[facility]
--- OUTSIDE RECORDS SUMMARY | 2025-01-07 21:58 | XMS_ITS | Encounter Summary ---
Author Organization [facility] Address [address] [employer] [facility] [address] [place] [address] Phone Care Team Providers Care Industrial Gas Fitter Name Role Phone Artie Meehan MD Unavailable [...] st Contact Info) Description 09/17/2021 Anti-coag visit [facility] Cardiovascular [address] [address] Catherine Hernández, UniqueD [email or web address] Social History Tobacco Use Types Packs/Day Years [...] Description 01/31/2025 1:00 PM EST Office Visit [facility] Cardiovascular Medicine 32 [facility], 5th Floor, [address] [place] [address] Karena Betancur MD [address] [address] [email or web address] 03/08/2025 9:30 AM EST [facility] [address] [place] [address] 2nd [place] [address] Irineo Ruff MD [address] [place] [address] [email or web address] 03/15/2025 Procedure Pass [facility] Endoscopy Department [address] [place] [address] 03/15/2025 7:30 AM EST Hospital Encounter [facility] Endoscopy Department [address] [place] [address] Irineo Ruff MD [address] [place] [address] [email or web address] 03/15/2025 7:30 AM EST - 03/15/2025 8:15 AM EST Surgery [facility] Endoscopy Department [address] [place] [address] Irineo Ruff MD [address] [place] [address] [place] [address] [email or web address] COLONOSCOPY Scheduled Procedures Name [...] documented as of this encounter Care Teams Industrial Gas Fitter Relationship Specialty Start Date End Date Laura Mock MD, DMD [address] [address] [email or web address] du PCP - General Internal Medicine 06/04/21 11/11/23 Pcp, Unknown PCP - General 11/12/23 11/16/23 Laura Mock MD, DMD [address] [address] [email or web address] du PCP - General Internal Medicine 11/17/23 12/28/23 Pcp, Unknown PCP - General 02/28/24 03/04/24 [place] [address] [address] PCP - General 03/05/24 05/17/24 Laura Mock MD, DMD [address] [address] [email or web address] du PCP - General Internal Medicine 05/18/24 Artie Meehan MD [address] [place] [address] [address] [place] [address] Internal Medicine 10/26/17 04/23/22 Rina Swenson MD [address] [place] [address] Dr [address] [place] [address] Psychiatry 07/09/17 Laura Mock MD, DMD [address] [address] [email or web address] Partners Attributed Provider 09/01/21 07/03/23 Laura Mock MD, DMD [address] [address] [email or web address] Insurance Assigned Provider 05/31/23 03/01/24 Jakob Bob MD [address] [place] [address] [place] [address] [email or web address] Cardiology 08/22/23 Jose Cruz MD [address] [place] [address] Cardiology 08/22/23 Laura Mock MD, DMD [address] [address] [email or web address] du Partners Attributed Provider 09/01/21 07/03/23 [facility] [phone]. Consulting Provider 08/22/23 [facility] Connect 12/24/23 03/11/24 Cyril Morales [address] [place] [address] Nurse Practitioner 02/27/24 documented as of this encounter Additional Source Comments The information contained in this document represents components of the legal health record. It is not the complete legal health record.[facility]
--- OUTSIDE RECORDS SUMMARY | 2025-01-07 21:58 | XMS_ITS | Encounter Summary ---
Author Organization [facility] Address [facility] [employer] [address] [address] Phone Care Team Providers Care R And D Lab Technician Name Role Phone Rina Swenson MD Unavailable Laura Mock MD, DMD Primary Car e Provider Laura Mock MD, DMD Unavailable Laura Mock MD, DMD Unavailable Jakob Bob MD Unavailable Jose Cruz MD Unavailable [phone] Laura Mock MD, DMD Unavailable Pcp, Unknown Primary Care Provider UnavailLaura Ascencio MD, DMD Primary Car e Provider Pcp, Unknown Primary Care Provider UnavailNicole Arguello MD Primary Care Provide r Laura Mokc MD, DMD Primary Car e Provider Encounter [...] [facility] 32 [facility], 5th Floor, [address] [place] [address] Karena Betancur MD [address] [address] [email or web address] 03/08/2025 9:30 AM EST Pre-Admission Testing [facility] 45 [facility] 2nd [place] [address] Irineo Ruff MD 75 [place] [address] [email or web address] 03/15/2025 Procedure Pass [facility] Endoscopy Department [address] [place] [address] 03/15/2025 7:30 AM EST Hospital Encounter [facility] Endoscopy Department [address] [place] [address] Irineo Ruff MD 75 [facility] [place] [address] [email or web address] 03/15/2025 7:30 AM EST - 03/15/2025 8:15 AM EST Surgery [facility] Endoscopy Department [address] [place] [address] Irineo Ruff MD [address] [place] [address] [place] [address] [email or web address] COLONOSCOPY Scheduled Procedures Name Priority Associated [...] documented as of this encounter Care Teams R And D Lab Technician Relationship Specialty Start Date End Date Laura Mock MD, DMD [address] [address] [email or web address] PCP - General Internal Medicine 06/04/21 11/11/23 Pcp, Unknown PCP - General 11/12/23 11/16/23 Laura Mock MD, DMD [address] [address] [email or web address] PCP - General Internal Medicine 11/17/23 12/28/23 Pcp, Unknown PCP - General 02/28/24 03/04/24 Nicole [place] MD [address] [place] [address] [id number] PCP - General 03/05/24 05/17/24 Laura Mock MD, DMD [address] [address] [email or web address] PCP - General Internal Medicine 05/18/24 Rina Swenson MD Psychiatry 07/09/17 Laura Mock MD, DMD [address] [address] [email or web address] Partners Attributed Provider 09/01/21 07/03/23 Laura Mock MD, DMD [address] [address] [email or web address] du Insurance Assigned Provider 05/31/23 03/01/24 Jakob Bob MD [address] [facility] [place] [address] [email or web address] Cardiology 08/22/23 Jose Cruz MD [address] [place] [address] Cardiology 08/22/23 Laura Mock MD, DMD [address] [address] [email or web address] Partners Attributed Provider 09/01/21 07/03/23 [facility] [phone]. Consulting Provider 08/22/23 [facility] Connect 12/24/23 03/11/24 Cyril Morales [address] [place] [address] Nurse Practitioner 02/27/24 documented as of this encounter Additional Source Comments The information contained in this document represents components of the legal health record. It is not the complete legal health record.[facility]
--- OUTSIDE RECORDS SUMMARY | 2025-01-07 21:58 | XMS_ITS | Encounter Summary ---
Author Organization [facility] Address [address] [place] [address] [place] [address] Phone Care Team Providers Care Rail Car Repairman Name Role Phone Rina Swenson MD Unavailable [...] st Contact Info) Description 08/08/2022 Anti-coag visit [facility] Anticoagulation Clinic [address] [place] [address] [id number] Kenyatta [email or web address] Social History Tobacco Use Types [...] [facility] 32 [facility], 5th Floor, [address] [place] [address] Karena Betancur MD [address] [address] [email or web address] 03/08/2025 9:30 AM EST [facility] 45 [facility] 2nd [place] [address] Irineo Ruff MD 75 [facility] [place] [address] [email or web address] 03/15/2025 Procedure Pass [facility] Endoscopy Department [address] [place] [address] 03/15/2025 7:30 AM EST Hospital Encounter [facility] Endoscopy Department [address] [place] [address] Irineo Ruff MD [address] [place] [address] [place] [address] [email or web address] 03/15/2025 7:30 AM EST - 03/15/2025 8:15 AM EST Surgery [facility] Endoscopy Department [address] [place] [address] Irineo Ruff MD [address] [place] [address] [place] [address] [email or web address] COLONOSCOPY Scheduled Procedures Name Priority Associated Diagnoses [...] documented as of this encounter Care Teams Rail Car Repairman Relationship Specialty Start Date End Date Laura Mock MD, DMD [address] [address] [email or web address] PCP - General Internal Medicine 06/04/21 11/11/23 Pcp, Unknown PCP - General 11/12/23 11/16/23 Laura Mock MD, DMD 1 [facility] [address] [place] [address] [email or web address] PCP - General Internal Medicine 11/17/23 12/28/23 Pcp, Unknown PCP - General 02/28/24 03/04/24 [place] [address] [address] PCP - General 03/05/24 05/17/24 Laura Mock MD, DMD [address] [address] [email or web address] PCP - General Internal Medicine 05/18/24 Rina Swenson MD Psychiatry 07/09/17 Laura Mock MD, DMD [address] [address] [email or web address] Attributed Provider 09/01/21 07/03/23 Laura Mock MD, DMD [address] [address] [email or web address] Insurance Assigned Provider 05/31/23 03/01/24 Jakob Bob MD [address] [place] [address] [place] [address] [email or web address] Cardiology 08/22/23 Jose Cruz MD [address] [place] [address], [address] [place] [address] Cardiology 08/22/23 Laura Mock MD, DMD [address] [address] [email or web address] Attributed Provider 09/01/21 07/03/23 [facility] [phone]. Consulting Provider 08/22/23 [facility] Connect 12/24/23 03/11/24 Cyril Morales [facility] [place] [address] Nurse Practitioner 02/27/24 documented as of this encounter Additional Source Comments The information contained in this document represents components of the legal health record. It is not the complete legal health record.[facility]
--- OUTSIDE RECORDS SUMMARY | 2025-01-07 21:58 | XMS_ITS | Encounter Summary ---
Author Organization [facility] Address [facility] [employer] [address] [address] Phone Care Team Providers Care Labor Relations Teacher Name Role Phone Artie Meehan MD Unavailable Rina Swenson MD Unavailable [phone] Laura Mock MD, DMD Primary Car e Provider Laura Mock MD, DMD Unavailable Laura Mock MD, DMD Unavailable Jakob Bob MD Unavailable Jose Cruz MD Unavailable Laura Mock MD, DMD Unavailable Pcp, Unknown Primary Care Provider UnavailLaura Ascencio MD, DMD Primary Car e Provider Pcp, Unknown Primary Care Provider UnavailNicole Arguelol MD Primary Care Provide r Laura Mock MD, DMD Primary Car e Provider Encounter Details Date Type Department Care Team (Late st Contact Info) Description 09/28/2021 Telephone [facility] Psychiatric Specialties at [address] [place] [address] Tamara Walton, YOLIE [address] [place] [address] [email or web address] Social [...] Description 01/31/2025 1:00 PM EST Office Visit [facility] Cardiovascular Medicine [address] [facility], 5th Floor, [address] [place] [address] Karena Betancur MD [address] [address] FRANK@[email or web address] 03/08/2025 9:30 AM EST [facility]-Admission Testing [facility] 45 [facility] 2nd [place] [address] Irineo Ruff MD [address] [place] [address] [email or web address] 03/15/2025 Procedure Pass [facility] Endoscopy Department [address] [place] [address] 03/15/2025 7:30 AM EST Hospital Encounter [facility] Endoscopy Department [address] [place] [address] Irineo Ruff MD [address] [place] [address] [place] [address] [email or web address] 03/15/2025 7:30 AM EST - 03/15/2025 8:15 AM EST Surgery [facility] Endoscopy Department [address] [place] [address] Irineo Ruff MD [address] [place] [address], [place] [address] [email or web address] COLONOSCOPY Scheduled Procedures Name Priority [...] documented as of this encounter Care Teams Labor Relations Teacher Relationship Specialty Start Date End Date Laura Mock MD, DMD [address] [address] [email or web address] PCP - General Internal Medicine 06/04/21 11/11/23 Pcp, Unknown PCP - General 11/12/23 11/16/23 Laura Mock MD, DMD [address] [address] [email or web address] PCP - General Internal Medicine 11/17/23 12/28/23 Pcp, Unknown PCP - General 02/28/24 03/04/24 [place] [address] [address] PCP - General 03/05/24 05/17/24 Laura Mock MD, DMD [address] [address] [email or web address] PCP - General Internal Medicine 05/18/24 Artie Meehan MD [address] [place] [address] [address] [place] [address] [place] [address] Internal Medicine 10/26/17 04/23/22 Rina Swenson MD [address] [place] [address] Dr [address] [place] [address] [place] [address] Psychiatry 07/09/17 Laura Mock MD, DMD [address] [address] [email or web address] Partners Attributed Provider 09/01/21 07/03/23 Laura Mock MD, DMD [address] [address] [email or web address] Insurance Assigned Provider 05/31/23 03/01/24 Jakob Bob MD [address] [place] [address] [place] [address] [email or web address] Cardiology 08/22/23 Jose Cruz MD [address] [place] [address] Cardiology 08/22/23 Laura Mock MD, DMD [address] [address] [email or web address] Partners Attributed Provider 09/01/21 07/03/23 [facility] [phone]. Consulting Provider 08/22/23 CAROLANN GREWAL Connect 12/24/23 03/11/24 Cyril Morales [facility] [place] [address] Nurse Practitioner 02/27/24 documented as of this encounter Additional Source Comments The information contained in this document represents components of the legal health record. It is not the complete legal health record.[facility]
--- OUTSIDE RECORDS SUMMARY | 2025-01-07 21:58 | XMS_ITS | Encounter Summary ---
Author Organization [facility] Address Critical access hospital [employer] [facility] [address] [place] [address] Phone Care Team Providers Care Outsole Cutter Machine Name Role Phone Rina Swenson MD Unavailable Laura Mock MD, DMD Primary Car e Provider Laura Mock MD, DMD Unavailable Laura Mock MD, DMD Unavailable Jakob Bob MD Unavailable [phone] Jose Cruz MD Unavailable [phone] Laura Mock MD, DMD Unavailable Pcp, Unknown Primary Care Provider UnavailLaura Ascencio MD, DMD Primary Car e Provider Pcp, Unknown Primary Care Provider UnavailNicole Arguello MD Primary Care Provide r Laura Mock MD, DMD Primary Car e Provider Encounter Details Date Type Department Care Team (Late st Contact Info) Description 10/07/2022 Procedure Pass [facility] [place] [place] [id number] Social History Tobacco Use Types Packs/Day Years [...] Description 01/31/2025 1:00 PM EST Office [place] [facility] [place] 32 [facility], 5th Floor, [address] [place] [address] Karena Betancur MD [address] [address] [email or web address] 03/08/2025 9:30 AM EST Pre-Admission Testing [facility] 45 [facility] 2nd [place] [address] Irineo Ruff MD 75 [place] [address] [email or web address] 03/15/2025 Procedure Pass [facility] Endoscopy Department [address] [place] [address] 03/15/2025 7:30 AM EST Hospital Encounter [facility] Endoscopy Department [address] [place] [address] Irineo Ruff MD 75 [facility] [place] [address] [email or web address] 03/15/2025 7:30 AM EST - 03/15/2025 8:15 AM EST Surgery [facility] Endoscopy Department [address] [place] [address] Irineo Ruff MD [address] [place] [address] [place] [address] [email or web address] COLONOSCOPY Scheduled Procedures [...] documented as of this encounter Care Teams Outsole Cutter Machine Relationship Specialty Start Date End Date Laura Mock MD, DMD [address] [address] [email or web address] PCP - General Internal Medicine 06/04/21 11/11/23 Pcp, Unknown PCP - General 11/12/23 11/16/23 Laura Mock MD, DMD [address] [address] [email or web address] PCP - General Internal Medicine 11/17/23 12/28/23 Pcp, Unknown PCP - General 02/28/24 03/04/24 [place] [address] [place] [address] PCP - General 03/05/24 05/17/24 Laura Mock MD, DMD 1 [facility] [address] [place] [address] [email or web address] du PCP - General Internal Medicine 05/18/24 Rina Swenson MD Psychiatry 07/09/17 Laura Mock MD, DMD [address] [address] [email or web address] Partners Attributed Provider 09/01/21 07/03/23 Laura Mock MD, DMD [address] [address] [email or web address] du Insurance Assigned Provider 05/31/23 03/01/24 Jakob Bob MD 75 [facility] [place] [address] [email or web address] Cardiology 08/22/23 Jose Cruz MD [address] [place] [address], [address] [place] [address] Cardiology 08/22/23 Laura Mock MD, DMD [address] [address] [email or web address] Partners Attributed Provider 09/01/21 07/03/23 [facility] [phone]. Consulting Provider 08/22/23 [facility] Connect 12/24/23 03/11/24 Cyril Morales [facility] [place] [address] Nurse Practitioner 02/27/24 documented as of this encounter Additional Source Comments The information contained in this document represents components of the legal health record. It is not the complete legal health record.[facility]
--- OUTSIDE RECORDS SUMMARY | 2025-01-07 21:58 | XMS_ITS | Encounter Summary ---
Author Organization [facility] Address [address] [facility] [address] [place] [address] Phone Care Team Providers Care Psychiatric Clinical Nurse Specialist Name Role Phone Artie Meehan MD Primary Care Provider [phone] Artie Meehan MD Unavailable Rina Swenson MD Unavailable Laura Mock MD, DMD Primary Car e Provider Laura Mock MD, DMD Unavailable Laura Mock MD, DMD Unavailable Jakob Bob MD Unavailable Jose Cruz MD Unavailable [phone] Laura Mock MD, DMD Unavailable Pcp, Unknown Primary Care Provider UnavailLaura Ascencio MD, DMD Primary Car e Provider Pcp, Unknown Primary Care Provider UnavailNicole Arguello MD Primary Care Provide r Laura Mock MD, DMD Primary Car e Provider Encounter Details Date Type Department Care Team (Late st Contact Info) Description 09/06/2020 Procedure Pass Echo [facility] [address] [place] [address] Social History Tobacco Use Types Packs/Day Years [...] Description 01/31/2025 1:00 PM EST Office [place] [facility] [place] 32 [facility], 5th Floor, [address] [place] [address] Karena Betancur MD [address] [address] [email or web address] 03/08/2025 9:30 AM EST [facility] [address] 2nd [place] [address] Irineo Ruff MD [address] [place] [address] [email or web address] 03/15/[address] [facility] Endoscopy Department [address] [place] [address] 03/15/2025 7:30 AM EST Hospital Encounter [facility] Endoscopy Department [address] [place] [address] Irineo Ruff MD [address] [place] [address] [place] [address] [email or web address] 03/15/2025 7:30 AM EST - 03/15/2025 8:[address] [facility] Endoscopy Department [address] [place] [address] Irineo Ruff MD [address] [place] [address] [place] [address] [email or web address] COLONOSCOPY Scheduled Procedures Name Priority Associated [...] documented as of this encounter Care Teams Psychiatric Clinical Nurse Specialist Relationship Specialty Start Date End Date Artie Meehan MD [address] [place] [address] [place] [address] PCP - General Internal Medicine 10/26/17 06/03/21 Laura Mock MD, DMD [address] [address] [email or web address] PCP - General Internal Medicine 06/04/21 11/11/23 Pcp, Unknown PCP - General 11/12/23 11/16/23 Laura Mock MD, DMD [address] [address] [email or web address] PCP - General Internal Medicine 11/17/23 12/28/23 Pcp, Unknown PCP - General 02/28/24 03/04/24 [place] [address] [address] PCP - General 03/05/24 05/17/24 Laura Mock MD, DMD [address] [address] [email or web address] du PCP - General Internal Medicine 05/18/24 Artie Meehan MD [address] [place] [address] Dr [address] [place] [address] Internal Medicine 10/26/17 04/23/22 Rina Swenson MD [address] [place] [address] Dr [address] [place] [address] Psychiatry 07/09/17 Laura Mock MD, DMD [address] [address] [email or web address] Partners Attributed Provider 09/01/21 07/03/23 Laura Mock MD, DMD [address] [address] [email or web address] du Insurance Assigned Provider 05/31/23 03/01/24 Jakob Bob MD [address] [place], [place] [address] [place] [address] [email or web address] Cardiology 08/22/23 Jose Cruz MD [address] [place] [address], [address] [place] [address] Cardiology 08/22/23 Laura Mock MD, DMD 1 [place] [address] [email or web address] Partners Attributed Provider 09/01/21 07/03/23 [facility] [phone]. Consulting Provider 08/22/23 [facility] Connect 12/24/23 03/11/24 Cyril Morales [address] [place] [address] Nurse Practitioner 02/27/24 documented as of this encounter Additional Source Comments The information contained in this document represents components of the legal health record. It is not the complete legal health record.[facility]
--- OUTSIDE RECORDS SUMMARY | 2025-01-07 21:58 | XMS_ITS | Encounter Summary ---
Author Organization [facility] Address [facility] [employer] [address] [address] Phone Care Team Providers Care Mechanical Engineering Manager Name Role Phone Artie Meehan MD Unavailable Rina Swenson MD Unavailable Laura Mock MD, DMD Primary Car e Provider Laura Mock MD, DMD Unavailable Laura Mock MD, DMD Unavailable Jakob Bob MD Unavailable [phone] Jose Cruz MD Unavailable [phone] Laura Mock MD, DMD Unavailable Pcp, Unknown [...] Description 01/31/2025 1:00 PM EST Office Visit [facility] Cardiovascular Medicine 32 [facility], 5th Floor, [address] [place] [address] Karena Betancur MD [address] [address] [email or web address] 03/08/2025 9:30 AM EST [facility]-Admission Testing [facility] 45 [facility] 2nd [place] [address] Irineo Ruff MD [address] [place] [address] [email or web address] 03/15/2025 Procedure Pass [facility] Endoscopy Department [address] [place] [address] 03/15/2025 7:30 AM EST Hospital Encounter [facility] Endoscopy Department [address] [place] [address] Irineo Ruff MD [address] [place] [address] WALI@[email or web address] 03/15/2025 7:30 AM EST - 03/15/2025 8:15 AM EST Surgery [facility] Endoscopy Department [address] [place] [address] Irineo Ruff MD [address] [place] [address] [email or web address] COLONOSCOPY Scheduled Procedures Name Priority Associated [...] as of this encounter Care Teams Mechanical Engineering Manager Relationship Specialty Start Date End Date Laura Mock MD, DMD [address] [address] [email or web address] PCP - General Internal Medicine 06/04/21 11/11/23 Pcp, Unknown PCP - General 11/12/23 11/16/23 Laura Mock MD, DMD [address] [address] [email or web address] PCP - General Internal Medicine 11/17/23 12/28/23 Pcp, Unknown PCP - General 02/28/24 03/04/24 Nicole [place] MD [address] [place] [address] PCP - General 03/05/24 05/17/24 Laura Mock MD, DMD 1 [facility] [address] [place] [address] [email or web address] du PCP - General Internal Medicine 05/18/24 Artie Meehan MD [address] [place] [address] [place] [address] Internal Medicine 10/26/17 04/23/22 Rina Swenson MD [address] [place] [address] [place] [address] Psychiatry 07/09/17 Laura Mock MD, DMD [address] [address] [email or web address] Partners Attributed Provider 09/01/21 07/03/23 Laura Mock MD, DMD [address] [address] [email or web address] Insurance Assigned Provider 05/31/23 03/01/24 Jakob Bob MD [address] [place] [address] [place] [address] [email or web address] Cardiology 08/22/23 Jose Cruz MD [address] [place] [address] Cardiology 08/22/23 Laura Mock MD, DMD [address] [address] [email or web address] Partners Attributed Provider 09/01/21 07/03/23 [facility] [phone]. Consulting Provider 08/22/23 CAROLANN GREWAL Connect 12/24/23 03/11/24 Cyril Morales [address] [place] [address] Nurse Practitioner 02/27/24 documented as of this encounter Additional Source Comments The information contained in this document represents components of the legal health record. It is not the complete legal health record.[facility]
--- OUTSIDE RECORDS SUMMARY | 2025-01-07 21:58 | XMS_ITS | Encounter Summary ---
Author Organization [facility] Address 399 [facility] [address] [place] [address] Phone Care Team Providers Care Sanitation Supervisor Name Role Phone Rina Swenson MD [...] st Contact Info) Description 12/10/2022 Anti-coag visit [facility] Cardiovascular Health [address] [place] [address] Catherine Hernández, PharmD [email or web address] Social History Tobacco Use Types Packs/Day [...] [facility] 32 [facility], 5th Floor, [address] [place] [address] Karena Betancur MD [address] [address] [email or web address] 03/08/2025 9:30 AM EST [facility] 45 [facility] 2nd [place] [address] Irineo Ruff MD 75 [facility] [place] [address] [email or web address] 03/15/2025 Procedure Pass [facility] Endoscopy Department [address] [place] [address] 03/15/2025 7:30 AM EST Hospital Encounter [facility] Endoscopy Department [address] [place] [address] Irineo Ruff MD [address] [place] [address] [place] [address] [email or web address] 03/15/2025 7:30 AM EST - 03/15/2025 8:15 AM EST Surgery [facility] Endoscopy Department [address] [place] [address] Irineo Ruff MD [address] [place] [address] [place] [address] [email or web address] Scheduled Procedures Name Priority Associated [...] documented as of this encounter Care Teams Sanitation Supervisor Relationship Specialty Start Date End Date Laura Mock MD, DMD [address] [address] [email or web address] du PCP - General Internal Medicine 06/04/21 11/11/23 Pcp, Unknown PCP - General 11/12/23 11/16/23 Laura Mock MD, DMD 1 [facility] [address] [place] [address] [email or web address] PCP - General Internal Medicine 11/17/23 12/28/23 Pcp, Unknown PCP - General 02/28/24 03/04/24 Nicole Newell MD [address] [place] [address] PCP - General 03/05/24 05/17/24 Laura Mock MD, DMD [address] [address] [email or web address] du PCP - General Internal Medicine 05/18/24 Rina Swenson MD Psychiatry 07/09/17 Laura Mock MD, DMD [address] [address] [email or web address] Partners Attributed Provider 09/01/21 07/03/23 Laura Mock MD, DMD [address] [address] [email or web address] du Insurance Assigned Provider 05/31/23 03/01/24 Jakob Bob MD [address] [place] [address] [place] [address] [email or web address] Cardiology 08/22/23 Jose Cruz MD [address] [place] [address] Cardiology 08/22/23 Laura Mock MD, DMD [address] [address] [email or web address] Partners Attributed Provider 09/01/21 07/03/23 [facility] [phone]. Consulting Provider 08/22/23 [facility] Connect 12/24/23 03/11/24 Cyril Morales [address] [place] [address] Nurse Practitioner 02/27/24 documented as of this encounter Additional Source Comments The information contained in this document represents components of the legal health record. It is not the complete legal health record.[facility]
--- OUTSIDE RECORDS SUMMARY | 2025-01-07 21:58 | XMS_ITS | Encounter Summary ---
Author Organization [facility] Address [facility] [address] [place] [address] Phone Care Team Providers Care Auto Body Technician Name Role Phone Rina Swenson MD [...] st Contact Info) Description 12/25/2022 Transcribe Orders [facility] Department 30 [place] [address] Laura Mock MD, DMD 1 [facility] [address] [place] [address] [email or web address] Breast screening (Primary Dx) Social History Tobacco [...] Description 01/31/2025 1:00 PM EST Office Visit [facility] Cardiovascular Medicine 32 [facility], 5th Floor, [address] [place] [address] Karena Betancur MD [address] [address] [email or web address] 03/08/2025 9:30 AM EST Pre-Admission Testing [facility] 45 [facility] 2nd [place] [address] Irineo Ruff MD 75 [facility] [place] [address] [email or web address] 03/15/2025 Procedure Pass [facility] Endoscopy Department 75 [place] [address] 03/15/2025 7:30 AM EST Hospital Encounter [facility] Endoscopy Department [address] [place] [address] Irineo Ruff MD [address] [place] [address] [email or web address] 03/15/2025 7:30 AM EST - 03/15/2025 8:15 AM EST Surgery [facility] Endoscopy Department [address] [place] [address] Irineo Ruff MD [address] [place] [address] [email or web address] COLONOSCOPY Scheduled Procedures Name Priority Associated [...] as of this encounter Care Teams Auto Body Technician Relationship Specialty Start Date End Date Laura Mock MD, DMD [address] [address] [email or web address] du PCP - General Internal Medicine 06/04/21 11/11/23 Pcp, Unknown PCP - General 11/12/23 11/16/23 Laura Mock MD, DMD [address] [address] [email or web address] PCP - General Internal Medicine 11/17/23 12/28/23 Pcp, Unknown PCP - General 02/28/24 03/04/24 [place] [address] [place] [address] PCP - General 03/05/24 05/17/24 Laura Mock MD, DMD [address] [address] [email or web address] du PCP - General Internal Medicine 05/18/24 Rina Swenson MD Psychiatry 07/09/17 Laura Mock MD, DMD [address] [address] [email or web address] du Partners Attributed Provider 09/01/21 07/03/23 Laura Mock MD, DMD [address] [address] [email or web address] du Insurance Assigned Provider 05/31/23 03/01/24 Jakob Bob MD [address] [place] [address] [email or web address] Cardiology 08/22/23 Jose Cruz MD [address] [place] [address] Cardiology 08/22/23 Laura Mock MD, DMD [address] [address] [email or web address] du Partners Attributed Provider 09/01/21 07/03/23 [facility] [phone]. Consulting Provider 08/22/23 [facility] Connect 12/24/23 03/11/24 Cyril Morales [address] [place] [address] Nurse Practitioner 02/27/24 documented as of this encounter Additional Source Comments The information contained in this document represents components of the legal health record. It is not the complete legal health record.[facility]
--- OUTSIDE RECORDS SUMMARY | 2025-01-07 21:59 | XMS_ITS | Encounter Summary ---
Author Organization [facility] Address [facility] [employer] [address] [address] Phone Care Team Providers Care Gallery Or Museum Attendant Name Role Phone Rina Swenson MD Unavailable Laura Mock MD, DMD Primary Car e Provider Laura Mock MD, DMD Unavailable Laura Mock MD, DMD Unavailable Jakob Bob MD Unavailable Jose Cruz MD Unavailable [phone] Laura Mock MD, DMD Unavailable Pcp, Unknown [...] Description 01/31/2025 1:00 PM EST Office Visit [facility] Cardiovascular Medicine 32 [facility], 5th Floor, [address] [place] [address] Karena Betancur MD [address] [address] [email or web address] 03/08/2025 9:30 AM EST Pre-Admission Testing [facility] 45 [facility] 2nd [place] [address] Irineo Ruff MD 75 [place] [address] [email or web address] 03/15/2025 Procedure Pass [facility] Endoscopy Department [address] [place] [address] 03/15/2025 7:30 AM EST Hospital Encounter [facility] Endoscopy Department [address] [place] [address] Irineo Ruff MD 75 [facility] [place] [address] [email or web address] 03/15/2025 7:30 AM EST - 03/15/2025 8:15 AM EST Surgery [facility] Endoscopy Department [address] [place] [address] Irineo Ruff MD [address] [place] [address] [place] [address] [email or web address] COLONOSCOPY Scheduled Procedures Name Priority Associated Diagnoses [...] documented as of this encounter Care Teams Gallery Or Museum Attendant Relationship Specialty Start Date End Date Laura Mock MD, DMD [address] [address] [email or web address] du PCP - General Internal Medicine 06/04/21 11/11/23 Pcp, Unknown PCP - General 11/12/23 11/16/23 Laura Mock MD, DMD [address] [address] [email or web address] PCP - General Internal Medicine 11/17/23 12/28/23 Pcp, Unknown PCP - General 02/28/24 03/04/24 Nicole Newell MD [address] [place] [address] [id number] PCP - General 03/05/24 05/17/24 Laura Mock MD, DMD [address] [address] [email or web address] du PCP - General Internal Medicine 05/18/24 Rina Swenson MD Psychiatry 07/09/17 Laura Mock MD, DMD [address] [address] [email or web address]. du Partners Attributed Provider 09/01/21 07/03/23 Laura Mock MD, DMD [address] [address] [email or web address] du Insurance Assigned Provider 05/31/23 03/01/24 Jakob Bob MD [address] [facility] [place] [address] [email or web address] Cardiology 08/22/23 Jose Cruz MD [address] [place] [address] Cardiology 08/22/23 Laura Mock MD, DMD [address] [address] [email or web address] du Partners Attributed Provider 09/01/21 07/03/23 [facility] [phone]. Consulting Provider 08/22/23 [facility] Connect 12/24/23 03/11/24 Cyril Morales [address] [place] [address] Nurse Practitioner 02/27/24 documented as of this encounter Additional Source Comments The information contained in this document represents components of the legal health record. It is not the complete legal health record.[facility]
--- OUTSIDE RECORDS SUMMARY | 2025-01-07 21:59 | XMS_ITS | Encounter Summary ---
Author Organization [facility] Address [facility] [employer] [address] [address] Phone Care Team Providers Care Map And Chart Mounter Name Role Phone Rina Swenson MD [...] Visit [facility] Cardiovascular Medicine 32 [facility], 5th Floor, [address] [place] [address] Karena Betancur MD [address] [address] FRANK@[email or web address] 03/08/2025 9:30 AM EST [facility] [address] [place] [address] 2nd [place] [address] Irineo Ruff MD [address] [place] [address] [email or web address] 03/15/2025 Procedure Pass [facility] Endoscopy Department [address] [place] [address] 03/15/2025 7:30 AM EST Hospital Encounter [facility] Endoscopy Department [address] [place] [address] Irineo Ruff MD [address] [place] [address] [email or web address] 03/15/2025 7:30 AM EST - 03/15/2025 8:15 AM EST Surgery [facility] Endoscopy Department [address] [place] [address] Irineo Ruff MD [address] [place] [address] [email or web address] .[facility] COLONOSCOPY Scheduled Procedures Name Priority Associated Diagnoses [...] documented as of this encounter Care Teams Map And Chart Mounter Relationship Specialty Start Date End Date Laura Mock MD, DMD [address] [address] [email or web address] du PCP - General Internal Medicine 06/04/21 11/11/23 Pcp, Unknown PCP - General 11/12/23 11/16/23 Laura Mock MD, DMD [address] [address] [email or web address] du PCP - General Internal Medicine 11/17/23 12/28/23 Pcp, Unknown PCP - General 02/28/24 03/04/24 [place] [address] [address] PCP - General 03/05/24 05/17/24 Laura Mock MD, DMD [address] [address] [email or web address] du PCP - General Internal Medicine 05/18/24 Rina Swenson MD Psychiatry 07/09/17 Laura Mock MD, DMD [address] [address] [email or web address] du Partners Attributed Provider 09/01/21 07/03/23 Laura Mock MD, DMD [address] [address] [email or web address] du Insurance Assigned Provider 05/31/23 03/01/24 Jakob Bob MD [address] [place] [address] [email or web address] Cardiology 08/22/23 Jose Cruz MD [address] [place] [address] [email or web address] Cardiology 08/22/23 Laura Mock MD, DMD [address] [address] [email or web address] du Partners Attributed Provider 09/01/21 07/03/23 [facility] [phone]. Consulting Provider 08/22/23 [facility] Connect 12/24/23 03/11/24 Cyril Morales [address] [place] [address] Nurse Practitioner 02/27/24 documented as of this encounter Additional Source Comments The information contained in this document represents components of the legal health record. It is not the complete legal health record.[facility]
--- OUTSIDE RECORDS SUMMARY | 2025-01-07 21:59 | XMS_ITS | Encounter Summary ---
Author Organization [facility] Address 399 [facility] [address] [place] [address] Phone Care Team Providers Care Food Tray Assembler Name Role Phone Rina Swenson MD Unavailable Laura Mock MD, DMD Primary Car e Provider Laura Mock MD, DMD Unavailable Laura Mock MD, DMD Unavailable Jakob Bob MD Unavailable Jose Cruz MD Unavailable [phone] Laura Mock MD, DMD Unavailable Pcp, Unknown Primary Care Provider UnavailLaura Ascencio MD, DMD Primary Car e Provider Pcp, Unknown Primary Care Provider UnavailNicole Arguello MD Primary Care Provide r Laura Mock MD, DMD Primary Car e Provider Encounter Details Date Type Department Care Team (Late st Contact Info) Description 05/10/2022 Anti-coag visit [facility] Anticoagulation Clinic [address] [place], [place] [phone] [facility] [address] [place] [address] [email or web address] Social History Tobacco Use Types Packs/Day [...] Description 01/31/2025 1:00 PM EST Office Visit [facility] Cardiovascular Medicine 32 [facility], 5th Floor, [address] [place] [address] Karena Betancur MD [address] [address] [email or web address] 03/08/2025 9:30 AM EST Pre-Admission Testing [facility] 45 [facility] 2nd [place] [address] Irineo Ruff MD [address] [place] [address] [email or web address]@[facility] 03/15/2025 Procedure Pass [facility] Endoscopy Department [address] [place] [address] 03/15/2025 7:30 AM EST Hospital Encounter [facility] Endoscopy Department [address] [place] [address] Irineo Ruff MD [address] [place] [address] WALI@[facility] 03/15/2025 7:30 AM EST - 03/15/2025 8:15 AM EST Surgery [facility] Endoscopy Department [address] [place] [address] Irineo Ruff MD [address] [place] [address], [place] [address] [email or web address] COLONOSCOPY Scheduled Procedures Name Priority [...] as of this encounter Care Teams Food Tray Assembler Relationship Specialty Start Date End Date Laura Mock MD, DMD [address] [address] [email or web address] du PCP - General Internal Medicine 06/04/21 11/11/23 Pcp, Unknown PCP - General 11/12/23 11/16/23 Laura Mock MD, DMD [address] [address] [email or web address] du PCP - General Internal Medicine 11/17/23 12/28/23 Pcp, Unknown PCP - General 02/28/24 03/04/24 [place] [address] [address] PCP - General 03/05/24 05/17/24 Laura Mock MD, DMD [address] [address] [email or web address] du PCP - General Internal Medicine 05/18/24 Rina Swenson MD Psychiatry 07/09/17 Laura Mock MD, DMD [address] [address] [email or web address] Partners Attributed Provider 09/01/21 07/03/23 Laura Mock MD, DMD [address] [address] [email or web address] du Insurance Assigned Provider 05/31/23 03/01/24 Jakob Bob MD [address] [place] [address] [place] [address] [email or web address] Cardiology 08/22/23 Jose Cruz MD [address] [place] [address] Cardiology 08/22/23 Laura Mock MD, DMD [address] [address] [email or web address] Partners Attributed Provider 09/01/21 07/03/23 [facility] [phone]. Consulting Provider 08/22/23 [facility] Connect 12/24/23 03/11/24 Cyril Morales [facility] [place] [address] Nurse Practitioner 02/27/24 documented as of this encounter Additional Source Comments The information contained in this document represents components of the legal health record. It is not the complete legal health record.[facility]
--- OUTSIDE RECORDS SUMMARY | 2025-01-07 21:59 | XMS_ITS | Encounter Summary ---
Author Organization [facility] Address [address] [place] [address] Phone Care Team Providers Care Nuclear Fuels Research Engineer Name Role Phone Rina Swenson MD Unavailable Jakob Bob MD Unavailable [phone] Jose Cruz MD Unavailable Laura Mock MD, DMD Primary Car e Provider Reason for Visit * Reason Onset Date Comments Colonoscopy 10/13/2024 Encounter Details Date Type Department Care Team (Late st Contact Info) Description 10/13/2024 Telephone [facility] [address] 2nd [place] [address] Laura Mock MD, DMD 1 [facility] [address] [place] [address] [email or web address] Colonoscopy Social History Tobacco Use Types Packs/Day [...] Description 01/31/2025 1:00 PM EST Office Visit [facility] Cardiovascular Medicine 32 [facility], 5th Floor, [address] [place] [address] Karena Betancur MD 55 [facility] 5[address] [place] [address] [email or web address] 03/08/2025 9:30 AM EST Pre-Admission Testing [facility] 45 [facility] 2nd [place] [address] Irineo Ruff MD [address] [place] [address] [email or web address] 03/15/2025 Procedure Pass [facility] Endoscopy Department [address] [place] [address] 03/15/2025 7:30 AM EST Hospital Encounter [facility] Endoscopy Department [address] [place] [address] Irineo Ruff MD [address] [place] [address] [place] [address] [email or web address] 03/15/2025 7:30 AM EST - 03/15/2025 8:15 AM EST Surgery [facility] Endoscopy Department [address] [place] [address] Irineo Ruff MD [address] [place] [address] [email or web address]@[email or web address] COLONOSCOPY Scheduled Procedures Name Priority Associated Diagnoses Date/Ti me COLONOSCOPY Abnormal colonoscopy 03/15/2025 7:30 AM EST documented as of this encounter Visit Diagnoses Not on filedocumented in this encounter Additional Health Concerns Assessment Noted Time PHQ-9 Depression Total Score: 17 023 11:28 AM EST PHQ-2 Depression Total Score: 2 10/10/19 23 11:28 AM EDT documented as of this encounter Care Teams Nuclear Fuels Research Engineer Relationship Specialty Start Date End Date Laura Mock MD, DMD 1 [facility] [address] [place] [address] [email or web address] PCP - General Internal Medicine 05/18/24 Rina Swenson MD Psychiatry 07/09/17 Jakob Bob MD [address] [place] [address] [address] [place] [address] [email or web address] Cardiology 08/22/23 Jose Cruz MD [address] [place] [address], [address] [place] [address] Cardiology 08/22/23 [facility] [phone]. Consulting Provider 08/22/23 Cyril Morales [address] [place] [phone] Nurse Practitioner 02/27/24 documented as of this encounter Additional Source Comments The information contained in this document represents components of the legal health record. It is not the complete legal health record.[facility]
--- OUTSIDE RECORDS SUMMARY | 2025-01-07 21:59 | XMS_ITS | Patient Health Record ---
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
--- OUTSIDE RECORDS SUMMARY | 2025-01-07 21:59 | XMS_ITS | Encounter Summary ---
Author Organization [facility] Address [facility] [employer] [address] [address] Phone Care Team Providers Care Supervisor Ship Maintenance Services Name Role Phone Rina Swenson MD Unavailable [phone] Laura Mock MD, DMD Primary Car e [...] [place] Cardiovascular Medicine 32 [facility], 5th Floor, [address] [place] [address] Karena Betancur MD [address] [address] [email or web address] 03/08/2025 9:30 AM EST Pre-Admission Testing [facility] 45 [facility] 2nd [place] [address] Irineo Ruff MD 75 [place] [address] [email or web address] 03/15/2025 Procedure Pass [facility] Endoscopy Department [address] [place] [address] 03/15/2025 7:30 AM EST Hospital Encounter [facility] Endoscopy Department [address] [place] [address] Irineo Ruff MD 75 [facility] [place] [address] [email or web address] 03/15/2025 7:30 AM EST - 03/15/2025 8:15 AM EST Surgery [facility] Endoscopy Department [address] [place] [address] Irineo Ruff MD [address] [place] [address] [place] [address] [email or web address] COLONOSCOPY [...] as of this encounter Care Teams Supervisor Ship Maintenance Services Relationship Specialty Start Date End Date Laura Mock MD, DMD [address] [address] [email or web address] du PCP - General Internal Medicine 06/04/21 11/11/23 Pcp, Unknown PCP - General 11/12/23 11/16/23 Laura Mock MD, DMD [address] [address] [email or web address] du PCP - General Internal Medicine 11/17/23 12/28/23 Pcp, Unknown PCP - General 02/28/24 03/04/24 Nicole Newell MD [address] [place] [address] [id number] PCP - General 03/05/24 05/17/24 Laura Mock MD, DMD [address] [address] [email or web address] du PCP - General Internal Medicine 05/18/24 Rina Swenson MD Psychiatry 07/09/17 Laura Mock MD, DMD [address] [address] [email or web address]. du Partners Attributed Provider 09/01/21 07/03/23 Laura Mock MD, DMD [address] [address] [email or web address] du Insurance Assigned Provider 05/31/23 03/01/24 Jakob Bob MD 75 [facility] [place] [address] [email or web address] Cardiology 08/22/23 Jose Cruz MD [address] [place] [address] Cardiology 08/22/23 Laura Mock MD, DMD [address] [address] [email or web address] du Partners Attributed Provider 09/01/21 07/03/23 [facility] [phone]. Consulting Provider 08/22/23 [facility] Connect 12/24/23 03/11/24 Cyril Morales [address] [place] [address] Nurse Practitioner 02/27/24 documented as of this encounter Additional Source Comments The information contained in this document represents components of the legal health record. It is not the complete legal health record.[facility]
--- OUTSIDE RECORDS SUMMARY | 2025-01-07 21:59 | XMS_ITS | Encounter Summary ---
Author Organization [facility] Address [address] [place] [address] [place] [address] Phone Care Team Providers Care Patrol Judge Name Role Phone Rina Swenson MD Unavailable Laura Mock MD, DMD Primary Car e Provider Laura Mock MD, DMD Unavailable Laura Mock MD, DMD Unavailable Jakob Bob MD Unavailable [phone] Jose Cruz MD Unavailable Laura Mock MD, DMD Unavailable Pcp, Unknown Primary Care Provider UnavailLaura Ascencio MD, DMD Primary Car e Provider Pcp, Unknown Primary Care Provider UnavailNicole Arguello MD Primary Care Provide r Laura Mock MD, DMD Primary Car e Provider Encounter Details Date Type Department Care Team (Late st Contact Info) Description 04/25/2022 Anti-coag visit [facility] Anticoagulation Clinic [address] [place] [address] [phone] Kenyatta [email or web address] Social History Tobacco Use Types Packs/Day [...] Description 01/31/2025 1:00 PM EST Office Visit [facility] Cardiovascular [facility] 32 [facility], 5th Floor, [address] [place] [address] Karena Betancur MD [address] [address] [email or web address] 03/08/2025 9:30 AM EST [facility] 45 [facility] 2nd [place] [address] Irineo Ruff MD [address] [place] [address] [email or web address] 03/15/2025 Procedure Pass [facility] Endoscopy Department [address] [place] [address] 03/15/2025 7:30 AM EST Hospital Encounter [facility] Endoscopy Department [address] [place] [address] Irineo Ruff MD [address] [place] [address] [email or web address] 03/15/2025 7:30 AM EST - 03/15/2025 8:15 AM EST Surgery [facility] Endoscopy Department [address] [place] [address] Irineo Ruff MD [address] [place] [address] [place] [address] [email or web address] COLONOSCOPY Scheduled Procedures Name [...] documented as of this encounter Care Teams Patrol Judge Relationship Specialty Start Date End Date Laura Mock MD, DMD [address] [address] [email or web address] PCP - General Internal Medicine 06/04/21 11/11/23 Pcp, Unknown PCP - General 11/12/23 11/16/23 Laura Mock MD, DMD [address] [address] [email or web address] du PCP - General Internal Medicine 11/17/23 12/28/23 Pcp, Unknown PCP - General 02/28/24 03/04/24 Nicole Newell MD [address] [place] [address] PCP - General 03/05/24 05/17/24 Laura Mock MD, DMD [address] [address] [email or web address] du PCP - General Internal Medicine 05/18/24 Rina Swenson MD Psychiatry 07/09/17 Laura Mock MD, DMD [address] [address] [email or web address] Partners Attributed Provider 09/01/21 07/03/23 Laura Mock MD, DMD [address] [address] [email or web address] du Insurance Assigned Provider 05/31/23 03/01/24 Jakob Bob MD [address] [place] [address] [email or web address] Cardiology 08/22/23 Jose Cruz MD [address] [place] [address] Cardiology 08/22/23 Laura Mock MD, DMD [address] [address] [email or web address] Partners Attributed Provider 09/01/21 07/03/23 [facility] [phone]. Consulting Provider 08/22/23 [facility] Connect 12/24/23 03/11/24 Cyril Morales [address] [place] [phone] Nurse Practitioner 02/27/24 documented as of this encounter Additional Source Comments The information contained in this document represents components of the legal health record. It is not the complete legal health record.[facility]
--- OUTSIDE RECORDS SUMMARY | 2025-01-07 21:59 | XMS_ITS | Encounter Summary ---
Author Organization [facility] Address [facility] [employer] [facility] [address] [place] [address] Phone Care Team Providers Care Senior Fire Protection Engineer Name Role Phone Artie Meehan MD Unavailable Rina Swenson MD Unavailable Laura Mock MD, DMD Primary Car e Provider Laura Mock MD, DMD Unavailable Laura Mock MD, DMD Unavailable Jakob Bob MD Unavailable [phone] Jose Cruz MD Unavailable [phone] Laura Mock MD, DMD Unavailable Pcp, Unknown Primary Care Provider UnavailLaura Ascencio MD, DMD Primary Car e Provider Pcp, Unknown Primary Care Provider UnavailNicole Arguello MD Primary Care Provide r Laura Mock MD, DMD Primary Car e Provider Encounter Details Date Type Department Care Team (Late st Contact Info) Description 08/07/2021 Anti-coag visit [facility] Anticoagulation Clinic [address] [place] [address] Kenyatta Gamez, PharmD [email or web address] Social History Tobacco Use Types Packs/Day [...] Description 01/31/2025 1:00 PM EST Office Visit [facility] Cardiovascular Medicine 32 [facility], 5th Floor, [address] [place] [address] Karena Betancur MD [address] [address] [email or web address] 03/08/2025 9:30 AM EST [facility]mission [facility] [address] [place] [address] 2nd [place] [address] Irineo Ruff MD [address] [place] [address] [email or web address] 03/15/2025 Procedure Pass [facility] Endoscopy Department [address] [place] [address] 03/15/2025 7:30 AM EST Hospital Encounter [facility] Endoscopy Department [address] [place] [address] Irineo Ruff MD [address] [place] [address] [email or web address] 03/15/2025 7:30 AM EST - 03/15/2025 8:15 AM EST Surgery [facility] Endoscopy Department [address] [place] [address] Irineo Ruff MD [address] [place] [address] [place] [address] [email or web address] COLONOSCOPY Scheduled Procedures Name Priority [...] as of this encounter Care Teams Senior Fire Protection Engineer Relationship Specialty Start Date End Date Laura Mock MD, DMD [address] [address] [email or web address] PCP - General Internal Medicine 06/04/21 11/11/23 Pcp, Unknown PCP - General 11/12/23 11/16/23 Laura Mock MD, DMD [address] [address] [email or web address] du PCP - General Internal Medicine 11/17/23 12/28/23 Pcp, Unknown PCP - General 02/28/24 03/04/24 [place] [address] [address] PCP - General 03/05/24 05/17/24 Laura Mock MD, DMD [address] [address] [email or web address] du PCP - General Internal Medicine 05/18/24 Artie Meehan MD [address] [place] [address] [address] [place] [address] Internal Medicine 10/26/17 04/23/22 Rina Swenson MD [address] [place] [address] [address] [place] [address] Psychiatry 07/09/17 Laura Mock MD, DMD [address] [address] [email or web address] du Partners Attributed Provider 09/01/21 07/03/23 Laura Mock MD, DMD [address] [address] [email or web address]. du Insurance Assigned Provider 05/31/23 03/01/24 Jakob Bob MD [address] [place] [address] [place] [address] [email or web address] Cardiology 08/22/23 Jose Cruz MD [address] [place] [address] Cardiology 08/22/23 Laura Mock MD, DMD [address] [address] [email or web address] Partners Attributed Provider 09/01/21 07/03/23 [facility] [phone]. Consulting Provider 08/22/23 [facility] Connect 12/24/23 03/11/24 Cyril Morales [address] [place] [address] Nurse Practitioner 02/27/24 documented as of this encounter Additional Source Comments The information contained in this document represents components of the legal health record. It is not the complete legal health record.[facility]
--- OUTSIDE RECORDS SUMMARY | 2025-01-07 21:59 | XMS_ITS | Encounter Summary ---
Author Organization [facility] Address [address] [employer] [facility] [address] [place] [address] Phone Care Team Providers Care Pile Driver Operator Helper Name Role Phone Artie Meehan MD Primary Care Provider [phone] Artie Meehan MD Unavailable Rina Swenson MD [...] Procedure Pass [facility] [address] [place] [address] Social History Tobacco Use Types Packs/Day Years [...] Description 01/31/2025 1:00 PM EST Office Visit [facility] Medicine [address] [facility], 5th Floor, [address] [place] [address] Karena Betancur MD [address] [address] [email or web address] 03/08/2025 9:30 AM EST [facility] 45 [facility] 2nd [place] [address] Irineo Ruff MD [address] [place] [address] [email or web address] 03/15/2025 Procedure Pass [facility] Endoscopy Department [address] [place] [address] 03/15/2025 7:30 AM EST Hospital Encounter [facility] Endoscopy Department [address] [place] [address] Irineo Ruff MD [address] [place] [address] [email or web address] 03/15/2025 7:30 AM EST - 03/15/2025 8:15 AM EST Surgery [facility] Endoscopy Department [address] [place] [address] Irineo Ruff MD [address] [place] [address] [place] [address] [email or web address] COLONOSCOPY Scheduled Procedures Name [...] documented as of this encounter Care Teams Pile Driver Operator Helper Relationship Specialty Start Date End Date Artie Meehan MD [address] [place] [address] [place] [address] PCP - General Internal Medicine 10/26/17 06/03/21 Laura Mock MD, DMD [address] [address] [email or web address] PCP - General Internal Medicine 06/04/21 11/11/23 Pcp, Unknown PCP - General 11/12/23 11/16/23 Laura Mock MD, DMD [address] [address] [email or web address] PCP - General Internal Medicine 11/17/23 12/28/23 Pcp, Unknown PCP - General 02/28/24 03/04/24 [place] [address] [address] PCP - General 03/05/24 05/17/24 Laura Mock MD, DMD [address] [address] [email or web address] PCP - General Internal Medicine 05/18/24 Artie Meehan MD [address] [place] [address] Dr [address] [place], [place] [address] [address] Internal Medicine 10/26/17 04/23/22 Rina Swenson MD [address] [place] [address] Dr [address] [place] [address] Psychiatry 07/09/17 Laura Mock MD, DMD [address] [address] [email or web address] Partners Attributed Provider 09/01/21 07/03/23 Laura Mock MD, DMD [address] [address] [email or web address] Insurance Assigned Provider 05/31/23 03/01/24 Jakob Bob MD [address] [place] [address] [place] [address] [email or web address] Cardiology 08/22/23 Jose Cruz MD [address] [place] [address], [address] [place] [address] Cardiology 08/22/23 Laura Mock MD, DMD 1 [facility] [address] [place] [address] [email or web address] Partners Attributed Provider 09/01/21 07/03/23 [facility] [phone]. Consulting Provider 08/22/23 [facility] Connect 12/24/23 03/11/24 Cyril Morales [address] [place] [address] Nurse Practitioner 02/27/24 documented as of this encounter Additional Source Comments The information contained in this document represents components of the legal health record. It is not the complete legal health record.[facility]
--- OUTSIDE RECORDS SUMMARY | 2025-01-07 22:00 | XMS_ITS | Encounter Summary ---
Author Organization [facility] Address 399 [facility] [address] [place] [address] Phone Care Team Providers Care Service Desk Agent Name Role Phone Rina Swenson MD Unavailable [phone] Laura Mock MD, DMD Primary Car e Provider Laura Mock MD, DMD Unavailable Laura Mock MD, DMD Unavailable Jakob Bob MD Unavailable [phone] Jose Cruz MD Unavailable Laura Mock MD, DMD Unavailable Pcp, Unknown Primary Care Provider UnavailLaura Ascencio MD, DMD Primary Car e Provider Pcp, Unknown Primary Care Provider UnavailNicole Arguello MD Primary Care Provide r Laura Mock MD, DMD Primary Car e Provider Encounter Details Date Type Department Care Team (Late st Contact Info) Description 10/26/2022 Anti-coag visit [facility] Anticoagulation Clinic [address] [place], [place] [phone] [facility] [address] [place] [address] [email or web address] Social History Tobacco Use Types Packs/Day [...] [facility] 32 [facility], 5th Floor, [address] [place] [address] Karena Betancur MD [address] [address] FRANK@[email or web address] 03/08/2025 9:30 AM EST [facility] [place] 45 [facility] 2nd [place] [address] Irineo Ruff MD 75 [facility] [place] [address] [email or web address] 03/15/2025 Procedure Pass [facility] Endoscopy Department 75 [place] [address] 03/15/2025 7:30 AM EST Hospital Encounter [facility] Endoscopy Department [address] [place] [address] Irineo Ruff MD [address] [place] [address] [place] [address] [email or web address] 03/15/2025 7:30 AM EST - 03/15/2025 8:15 AM EST Surgery [facility] Endoscopy Department [address] [place] [address] Irineo Ruff MD [address] [place] [address] [place] [address] [email or web address] COLONOSCOPY Scheduled Procedures Name Priority Associated [...] as of this encounter Care Teams Service Desk Agent Relationship Specialty Start Date End Date Laura Mock MD, DMD 1 [facility] [address] [place] [address] [email or web address] du PCP - General Internal Medicine 06/04/21 11/11/23 Pcp, Unknown PCP - General 11/12/23 11/16/23 Laura Mock MD, DMD 1 [facility] [address] [place] [address] [email or web address] du PCP - General Internal Medicine 11/17/23 12/28/23 Pcp, Unknown PCP - General 02/28/24 03/04/24 [place] [address] [place] [address] PCP - General 03/05/24 05/17/24 Laura Mock MD, DMD [address] [address] [email or web address] du PCP - General Internal Medicine 05/18/24 Rina Swenson MD Psychiatry 07/09/17 Laura Mock MD, DMD [address] [address] [email or web address] du Partners Attributed Provider 09/01/21 07/03/23 Laura Mock MD, DMD [address] [address] [email or web address] du Insurance Assigned Provider 05/31/23 03/01/24 Jakob Bob MD [address] [place] [address] [place] [address] [email or web address] Cardiology 08/22/23 Jose Cruz MD [address] [place] [address], [address] [place] [address] Cardiology 08/22/23 Laura Mock MD, DMD 1 [facility] [address] [place] [address] [email or web address] Partners Attributed Provider 09/01/21 07/03/23 [facility] [phone]. Consulting Provider 08/22/23 [facility] Connect 12/24/23 03/11/24 Cyril Morales [facility] [place] [address] Nurse Practitioner 02/27/24 documented as of this encounter Additional Source Comments The information contained in this document represents components of the legal health record. It is not the complete legal health record.[facility]
--- OUTSIDE RECORDS SUMMARY | 2025-01-07 22:00 | XMS_ITS | Encounter Summary ---
Author Organization [facility] Address [facility] [address] [address] Phone Care Team Providers Care Biodiesel Plant Operations Engineer Name Role Phone Rina Swenson MD [...] [facility] [place] Cardiovascular Medicine 32 [facility], 5th Floor, [address] [place] [address] Karena Betancur MD [address] [address] FRANK@[email or web address] 03/08/2025 9:30 AM EST [facility] [address] [place] [address] 2nd [place] [address] Irineo Ruff MD [address] [place] [address] WALI@[email or web address] 03/15/[address] [facility] Endoscopy Department [address] [place] [address] 03/15/2025 7:30 AM EST Hospital Encounter [facility] Endoscopy Department [address] [place] [address] Irineo Ruff MD [address] [place] [address] WALI@[email or web address] 03/15/2025 7:30 AM EST - 03/15/2025 8:[address] [facility] Endoscopy Department [address] [place] [address] Irineo Ruff MD [address] [place] [address] [email or web address] COLONOSCOPY Scheduled Procedures Name Priority Associated Diagnoses [...] documented as of this encounter Care Teams Biodiesel Plant Operations Engineer Relationship Specialty Start Date End Date Laura Mock MD, DMD [address] [address] [email or web address] du PCP - General Internal Medicine 06/04/21 11/11/23 Pcp, Unknown PCP - General 11/12/23 11/16/23 Laura Mock MD, DMD [address] [address] [email or web address] PCP - General Internal Medicine 11/17/23 12/28/23 Pcp, Unknown PCP - General 02/28/24 03/04/24 [place] [address] [address] PCP - General 03/05/24 05/17/24 Laura Mock MD, DMD [address] [address] [email or web address] PCP - General Internal Medicine 05/18/24 Rina Swenson MD Psychiatry 07/09/17 Laura Mock MD, DMD [address] [address] [email or web address] Partners Attributed Provider 09/01/21 07/03/23 Laura Mock MD, DMD [address] [address] [email or web address] du Insurance Assigned Provider 05/31/23 03/01/24 Jakob Bob MD [address] [place] [address] [email or web address] Cardiology 08/22/23 Jose Cruz MD [address] [place] [address] [email or web address] Cardiology 08/22/23 Laura Mock MD, DMD [address] [address] [email or web address] du Partners Attributed Provider 09/01/21 07/03/23 [facility] [phone]. Consulting Provider 08/22/23 [facility] Connect 12/24/23 03/11/24 Cyril Morales [address] [place] [phone] Nurse Practitioner 02/27/24 documented as of this encounter Additional Source Comments The information contained in this document represents components of the legal health record. It is not the complete legal health record.[facility]
--- OUTSIDE RECORDS SUMMARY | 2025-01-07 22:00 | XMS_ITS | Encounter Summary ---
Author Organization [facility] Address [address] [employer] [facility] [address] [place] [address] Phone Care Team Providers Care Office Copy Selector Name Role Phone Rina Swenson MD Unavailable Laura Mock MD, DMD Primary Car e Provider Laura Mock MD, DMD Unavailable Laura Mock MD, DMD Unavailable Jakob Bob MD Unavailable Jose Cruz MD Unavailable aLura Mock MD, DMD Unavailable Pcp, Unknown Primary Care Provider UnavailLaura Ascencio MD, DMD Primary Car e Provider Pcp, Unknown Primary Care Provider UnavailNicole Arguello MD Primary Care Provide r Laura Mock MD, DMD Primary Car e Provider Encounter Details Date Type Department Care Team (Late st Contact Info) Description 10/02/2022 Procedure Pass [facility] [address] [place] [address] Social History Tobacco Use Types Packs/Day Years [...] [facility] Cardi[facility] Medicine [address] [facility], 5th Floor, [address] [place] [address] Karena Betancur MD [address] [address] [email or web address] 03/08/2025 9:30 AM EST Pre-Admission Testing [facility] 2nd [place] [address] Irineo Ruff MD 75 [place] [address] [email or web address] 03/15/2025 Procedure Pass [facility] Endoscopy Department [address] [place] [address] 03/15/2025 7:30 AM EST Hospital Encounter [facility] Endoscopy Department [address] [place] [address] Irineo Ruff MD 75 [facility] [place] [address] [email or web address] 03/15/2025 7:30 AM EST - 03/15/2025 8:15 AM EST Surgery [facility] Endoscopy Department [address] [place] [address] Irineo Ruff MD [address] [place] [address] [place] [address] [email or web address] [email or web address] Scheduled Procedures Name Priority [...] as of this encounter Care Teams Office Copy Selector Relationship Specialty Start Date End Date Laura Mock MD, DMD [address] [address] [email or web address] PCP - General Internal Medicine 06/04/21 11/11/23 Pcp, Unknown PCP - General 11/12/23 11/16/23 Laura Mock MD, DMD [address] [address] [email or web address] PCP - General Internal Medicine 11/17/23 12/28/23 Pcp, Unknown PCP - General 02/28/24 03/04/24 [place] [address] [place] [address] PCP - General 03/05/24 05/17/24 Laura Mock MD, DMD [address] [address] [email or web address] PCP - General Internal Medicine 05/18/24 Rina Swenson MD Psychiatry 07/09/17 Laura Mock MD, DMD [address] [address] [email or web address] Partners Attributed Provider 09/01/21 07/03/23 Laura Mock MD, DMD [address] [address] [email or web address] du Insurance Assigned Provider 05/31/23 03/01/24 Jakob Bob MD [address] [place] [address] [email or web address] Cardiology 08/22/23 Jose Cruz MD [address] [place] [address], [address] [place] [address] Cardiology 08/22/23 Laura Mock MD, DMD [address] [address] [email or web address] du Partners Attributed Provider 09/01/21 07/03/23 [facility] [phone]. Consulting Provider 08/22/23 [facility] Connect 12/24/23 03/11/24 Cyril Morales [address] [place] [address] Nurse Practitioner 02/27/24 documented as of this encounter Additional Source Comments The information contained in this document represents components of the legal health record. It is not the complete legal health record.[facility]
--- OUTSIDE RECORDS SUMMARY | 2025-01-07 22:00 | XMS_ITS | Encounter Summary ---
Author Organization [facility] Address [address] [employer] [facility] [address] [place] [address] Phone Care Team Providers Care Lining Layer Name Role Phone Rina Swenson MD Unavailable Laura Mock MD, DMD Unavailable Jakob Bob MD Unavailable [phone] Jose Cruz MD Unavailable [phone] Laura Mock MD, DMD Primary Car e Provider Pcp, Unknown Primary Care Provider Unavailmarco e Nicole Newell MD Primary Care Provide r Laura Mock MD, DMD Primary Car e Provider Encounter Details Date Type Department Care Team (Late st Contact Info) Description 12/04/2023 Procedure Pass [facility] Periop [address] [place] [address] Social History Tobacco Use Types Packs/Day Years [...] Description 01/31/2025 1:00 PM EST Office Visit [facility] Cardiovascular Medicine 32 [facility], 5th Floor, [address] [place] [address] Karena Betancur MD [address] [address] [email or web address] 03/08/2025 9:30 AM EST [facility] 2nd [place] [address] Irineo Ruff MD 75 [facility] [place] [address] [email or web address] 03/15/2025 Procedure Pass [facility] Endoscopy Department [address] [place] [address] 03/15/2025 7:30 AM EST Hospital Encounter [facility] Endoscopy Department [address] [place] [address] Irineo Ruff MD [address] [place] [address] [place] [address] [email or web address] 03/15/2025 7:30 AM EST - 03/15/2025 8:15 AM EST Surgery [facility] Endoscopy Department [address] [place] [address] Irineo Ruff MD [address] [place] [address] [email or web address] COLONOSCOPY Scheduled Procedures [...] documented as of this encounter Care Teams Lining Layer Relationship Specialty Start Date End Date Laura Mock MD, DMD [address] [address] [email or web address] PCP - General Internal Medicine 11/17/23 12/28/23 Pcp, Unknown PCP - General 02/28/24 03/04/24 [place] [address] [address] PCP - General 03/05/24 05/17/24 Laura Mock MD, DMD [address] [address] [email or web address] so PCP - General Internal Medicine 05/18/24 Rina Swenson MD Psychiatry 07/09/17 Laura Mock MD, DMD 1 [facility] [address] [place] [address] [email or web address] Insurance Assigned Provider 05/31/23 03/01/24 Jakob Bob MD 75 [facility] [place] [address] [email or web address] Cardiology 08/22/23 Jose Cruz MD [address] [facility] [address] [place] [address] Cardiology 08/22/23 [facility] [phone]. Consulting Provider 08/22/23 [facility] Connect 12/24/23 03/11/24 Cyril Morales [address] [place] [address] Nurse Practitioner 02/27/24 documented as of this encounter Additional Source Comments The information contained in this document represents components of the legal health record. It is not the complete legal health record.[facility]
--- OUTSIDE RECORDS SUMMARY | 2025-01-07 22:00 | XMS_ITS | Encounter Summary ---
Author Organization [facility] Address [address] [place] [address] [place] [address] Phone Care Team Providers Care Electric Razor Assembler Name Role Phone Artie Meehan MD Unavailable Rina Swenson MD Unavailable Laura Mock MD, DMD Primary Car e Provider Laura Mock MD, DMD Unavailable Laura Mock MD, DMD Unavailable Jakob Bob MD Unavailable Jose Cruz MD Unavailable [phone] Laura Mock MD, DMD Unavailable Pcp, Unknown Primary Care Provider UnavailLaura Ascencio MD, DMD Primary Car e Provider Pcp, Unknown Primary Care Provider UnavailNicole Arguello MD Primary Care Provide r Laura Mock MD, DMD Primary Car e Provider Encounter Details Date Type Department Care Team (Late st Contact Info) Description 09/17/2021 Procedure Pass [facility] [address] [place] [address] Social History Tobacco Use Types Packs/Day Years [...] [facility] Cardiovascular Medicine 32 [facility], 5th Floor, [address] [place] [address] Karena Betancur MD [address] [address] FRANK@[email or web address] 03/08/2025 9:30 AM EST [facility] 45 [facility] 2nd [place] [address] Irineo Ruff MD [address] [place] [address] [email or web address] 03/15/2025 Procedure Pass [facility] Endoscopy Department [address] [place] [address] 03/15/2025 7:30 AM EST Hospital Encounter [facility] Endoscopy Department [address] [place] [address] Irineo Ruff MD [address] [place] [address] [email or web address] 03/15/2025 7:30 AM EST - 03/15/2025 8:15 AM EST Surgery [facility] Endoscopy Department [address] [place] [address] Irineo Ruff MD [address] [place] [address] [email or web address] [email or web address] Scheduled Procedures Name Priority Associated [...] documented as of this encounter Care Teams Electric Razor Assembler Relationship Specialty Start Date End Date Laura Mock MD, DMD [address] [address] [email or web address] du PCP - General Internal Medicine 06/04/21 11/11/23 Pcp, Unknown PCP - General 11/12/23 11/16/23 Laura Mock MD, DMD [address] [address] [email or web address] PCP - General Internal Medicine 11/17/23 12/28/23 Pcp, Unknown PCP - General 02/28/24 03/04/24 Nicole Newell MD [address] [place] [address] PCP - General 03/05/24 05/17/24 Laura Mock MD, DMD [address] [address] [email or web address] PCP - General Internal Medicine 05/18/24 Artie Meehan MD [address] [place] [address] [place] [address] Internal Medicine 10/26/17 04/23/22 Rina Swenson MD [address] [place] [address] [place] [address] Psychiatry 07/09/17 Laura Mock MD, DMD [address] [address] [email or web address] Partners Attributed Provider 09/01/21 07/03/23 Laura Mock MD, DMD [address] [address] [email or web address] Insurance Assigned Provider 05/31/23 03/01/24 Jakob Bob MD [address] [place] [address] [place] [address] [email or web address] Cardiology 08/22/23 Jose Cruz MD [address] [place] [address], [address] [place] [address] Cardiology 08/22/23 Laura Mock MD, DMD [address] [address] [email or web address] Partners Attributed Provider 09/01/21 07/03/23 [facility] [phone]. Consulting Provider 08/22/23 [facility] Connect 12/24/23 03/11/24 Cyril Morales [address] [place] [address] Nurse Practitioner 02/27/24 documented as of this encounter Additional Source Comments The information contained in this document represents components of the legal health record. It is not the complete legal health record.[facility]
--- OUTSIDE RECORDS SUMMARY | 2025-01-07 22:00 | XMS_ITS | Encounter Summary ---
Author Organization [facility] Address [address] [facility] [place] [address] [place] [address] Phone Care Team Providers Care Green Hide Inspector Name Role Phone Rina Swenson MD Unavailable Laura Mock MD, DMD Primary Car e Provider Laura Mock MD, DMD Unavailable Laura Mock MD, DMD Unavailable Jakob Bob MD Unavailable [phone] Jose Cruz MD Unavailable [phone] Laura Mock MD, DMD Unavailable Pcp, Unknown Primary Care Provider UnavailLaura Ascencio MD, DMD Primary Car e Provider Pcp, Unknown Primary Care Provider UnavailNicole Arguello MD Primary Care Provide r Laura Mock MD, DMD Primary Car e Provider Encounter Details Date Type Department Care Team (Late st Contact Info) Description 05/27/[address] [facility] Endoscopy Department [address] [place] [address] Social History Tobacco Use Types Packs/Day Years [...] Description 01/31/2025 1:00 PM EST Office Visit [facility] Cardiovascular Medicine 32 [facility], 5th Floor, [address] [place] [address] Karena Betancur MD [address] [address] [email or web address] 03/08/2025 9:30 AM EST Pre-Admission Testing [facility] 45 [facility] 2nd [place] [address] Irineo Ruff MD 75 [place] [address] [email or web address] 03/15/[address] [facility] Endoscopy Department [address] [place] [address] 03/15/2025 7:30 AM EST Hospital Encounter [facility] Endoscopy Department [address] [place] [address] Irineo Ruff MD 75 [facility] [place] [address] [email or web address] 03/15/2025 7:30 AM EST - 03/15/2025 8:[address] [facility] Endoscopy Department [address] [place] [address] Irineo Ruff MD [address] [place] [address] [place] [address] [email or web address] COLONOSCOPY Scheduled Procedures Name Priority [...] documented as of this encounter Care Teams Green Hide Inspector Relationship Specialty Start Date End Date Laura Mock MD, DMD [address] [address] [email or web address] so PCP - General Internal Medicine 06/04/21 11/11/23 Pcp, Unknown PCP - General 11/12/23 11/16/23 Laura Mock MD, DMD [address] [address] [email or web address] PCP - General Internal Medicine 11/17/23 12/28/23 Pcp, Unknown PCP - General 02/28/24 03/04/24 [place] [address] [place] [address] PCP - General 03/05/24 05/17/24 Laura Mock MD, DMD 1 [facility] [address] [place] [address] [email or web address] du PCP - General Internal Medicine 05/18/24 Rina Swenson MD Psychiatry 07/09/17 Laura Mock MD, DMD [address] [address] [email or web address] du Partners Attributed Provider 09/01/21 07/03/23 Laura Mock MD, DMD [address] [address] [email or web address] du Insurance Assigned Provider 05/31/23 03/01/24 Jakob Bob MD 75 [facility] [place] [address] [email or web address] Cardiology 08/22/23 Jose Cruz MD [address] [place] [address], [address] [place] [address] Cardiology 08/22/23 Laura Mock MD, DMD [address] [address] [email or web address] du Partners Attributed Provider 09/01/21 07/03/23 [facility] [phone]. Consulting Provider 08/22/23 [facility] Connect 12/24/23 03/11/24 Cyril Morales [facility] [place] [address] Nurse Practitioner 02/27/24 documented as of this encounter Additional Source Comments The information contained in this document represents components of the legal health record. It is not the complete legal health record.[facility]
--- OUTSIDE RECORDS SUMMARY | 2025-01-07 22:00 | XMS_ITS | Encounter Summary ---
Author Organization [facility] Address [address] [place] [address] [place] [address] Phone Care Team Providers Care Fiber Optic Technician Name Role Phone Rina Swenson MD [...] st Contact Info) Description 10/29/2022 Anti-coag visit [facility] Cardiovascular Health [address] [place] [address] Catherine Hernández, PharmD [email or web address] Social History Tobacco Use Types [...] [facility] Cardiovascular Medicine [address] [facility], 5th Floor, [address] [place] [address] Karena Betancur MD [address] [address] [email or web address] 03/08/2025 9:30 AM EST [facility] 45 [facility] 2nd [place] [address] Irineo Ruff MD 75 [facility] [place] [address] [email or web address] 03/15/2025 Procedure Pass [facility] Endoscopy Department [address] [place] [address] 03/15/2025 7:30 AM EST Hospital Encounter [facility] Endoscopy Department [address] [place] [address] Irineo Ruff MD [address] [place] [address] [place] [address] [email or web address]@[email or web address] 03/15/2025 7:30 AM EST - 03/15/2025 8:15 AM EST Surgery [facility] Endoscopy Department [address] [place] [address] Irineo Ruff MD [address] [place] [address] [place] [address] [email or web address] COLONOSCOPY Scheduled Procedures Name Priority Associated [...] documented as of this encounter Care Teams Fiber Optic Technician Relationship Specialty Start Date End Date Laura Mock MD, DMD [address] [address] [email or web address] PCP - General Internal Medicine 06/04/21 11/11/23 Pcp, Unknown PCP - General 11/12/23 11/16/23 Laura Mock MD, DMD 1 [facility] [address] [place] [address] [email or web address] PCP - General Internal Medicine 11/17/23 12/28/23 Pcp, Unknown PCP - General 02/28/24 03/04/24 Nicole Newell MD [address] [place] [address] PCP - General 03/05/24 05/17/24 Laura Mock MD, DMD [address] [address] [email or web address] du PCP - General Internal Medicine 05/18/24 Rina Swenson MD Psychiatry 07/09/17 Laura Mock MD, DMD [address] [address] [email or web address] Partners Attributed Provider 09/01/21 07/03/23 Laura Mock MD, DMD [address] [address] [email or web address] du Insurance Assigned Provider 05/31/23 03/01/24 Jakob Bob MD [address] [place] [address] [place] [address] [email or web address] Cardiology 08/22/23 Jose Cruz MD [address] [place] [address] Cardiology 08/22/23 Laura Mock MD, DMD [address] [address] [email or web address] Partners Attributed Provider 09/01/21 07/03/23 [facility] [phone]. Consulting Provider 08/22/23 [facility] Connect 12/24/23 03/11/24 Cyril Morales [address] [place] [address] Nurse Practitioner 02/27/24 documented as of this encounter Additional Source Comments The information contained in this document represents components of the legal health record. It is not the complete legal health record.[facility]
--- OUTSIDE RECORDS SUMMARY | 2025-01-07 22:01 | XMS_ITS | Encounter Summary ---
Author Organization [facility] Address [facility] [address] [address] Phone Care Team Providers Care Application Technician Name Role Phone Tasha Greenwood MD Primary Care Provider Artie Meehan MD Primary Care Provider [phone] Artie Meehan MD Primary Care Provider [phone] Artie Meehan MD Unavailable Meera Campos Unavailable [phone] Amber Raygoza NP Unavailable [phone] Elvis Rendon MD Unavailable [phone] Modesta Rivera MD Unavailable [phone] Carlin Newman MD Unavailable [phone] Patti Bello MD Unavailable Lucila Melendez MD Unavailable [phone] Juan J Avitia DO Unavailable [phone] Tasha Greenwood MD Unavailable Mekhi Hernandez MD Unavailable Leora Fish PA-C Unavailable Angel Klein MD Unavailable [phone] Fredy Bruno MD Unavailable [phone] Sejal Dick MD Unavailable Cadence Rouse MD Unavailable [phone] Baljinder Hinson MD Unavailable [phone] Rina Swenson MD Unavailable Laura Mock [...] 06/12/2017 Procedure Pass [facility] [address] [place] [address] Social History Tobacco Use Types Packs/Day Years [...] [facility] [address] [place] [address], 5th Floor, [address] [place] [address] Karena Betancur MD [address] [facility] [address] [place] [address] [email or web address] 03/08/2025 9:30 AM EST Pre-Admission Testing [facility] 45 [facility] 2nd [place] [address] Irineo Ruff MD 75 [place] [address] [email or web address] 03/15/2025 Procedure Pass [facility] Endoscopy Department [address] [place] [address] 03/15/2025 7:30 AM EST Hospital Encounter [facility] Endoscopy Department [address] [place] [address] Irineo Ruff MD [address] [place] [address] [email or web address] 03/15/2025 7:30 AM EST - 03/15/2025 8:15 AM EST Surgery [facility] Endoscopy Department [address] [place] [address] Irineo Ruff MD [address] [place] [address] [email or web address] Scheduled Procedures Name Priority [...] as of this encounter Care Teams Application Technician Relationship Specialty Start Date End Date Tasha Greenwood MD [address] [place] [address], 2nd [place] [address] [email or web address] PCP - General 08/24/13 07/08/17 Artie Meehan MD [address] [place] [address] Dr Dior [facility] [place] [address] PCP - General Internal Medicine 07/09/17 10/25/17 Artie Meehan MD [address] [place] [address] Dr [address] [place] [address] PCP - General Internal Medicine 10/26/17 06/03/21 Laura Mock MD, DMD [address] [address] [email or web address] PCP - General Internal Medicine 06/04/21 11/11/23 Pcp, Unknown PCP - General 11/12/23 11/16/23 Laura Mock MD, DMD [address] [address] [email or web address] PCP - General Internal Medicine 11/17/23 12/28/23 Pcp, Unknown PCP - General 02/28/24 03/04/24 [place] [address] [address] PCP - General 03/05/24 05/17/24 Laura Mock MD, DMD [address] [address] [email or web address] PCP - General Internal Medicine 05/18/24 Artie Meehan MD [address] [place] [address] [address] Internal Medicine 10/26/17 04/23/22 Meera Campos PA [address] [place] [address] [place] [address] Historical LMR Provider 12/14/16 Amber Raygoza NP [address] [place] [address] Historical LMR Provider 12/14/16 Elvis Rendon MD [address] [place] [address], [address] [place] [address] Historical LMR Provider 12/14/16 8 Modesta Rivera MD [address] [place] [address], [address] [place] [address] Historical LMR Provider 12/14/16 Carlin Newman MD [address] [place] [address], 2nd [place] [address] Historical LMR Provider 12/14/16 Patti Bello MD [address] [place] [address], 2nd [place] [address] Historical LMR Provider 12/14/16 07/08/17 Lucila Melendez MD [address] [facility], [address] [place] [address] [email or web address] Historical LMR Provider 12/14/16 07/08/17 Juan J Avitia DO [address] [place] [address] Orthopedics & Sports Medicine, [place] [address] Historical LMR Provider 12/14/16 07/08/17 Tasha Greenwood MD [address] [place] [address], 2nd [place] [address] [email or web address] Historical LMR Provider 12/14/16 07/08/17 Mekhi Hernandez MD [address] [place], [place] [address] [address] [email or web address] Historical LMR Provider 12/14/16 07/08/17 Leora Fish PA-C [address] [place] [address] Orthopedics & Sports [facility], [place] [address] Historical LMR Provider 12/14/16 Angel Bueno MD [address] [facility], [address] [place] [address] Historical LMR Provider 12/14/16 Fredy Bruno MD [address] [place] [address] Historical LMR Provider 12/14/16 Sejal Dick MD [address] [place] [address] Orthopedics & Sports Medicine, [facility] [place] [address] [email or web address] Historical LMR Provider 12/14/1607/08 Cadence Rouse MD [address] [place] [address] Historical LMR Provider 12/14/16 Baljinder Hinson MD 61 [place] [address] Historical LMR Provider 12/14/16 Rina Swenson MD 61 [place] [address] Psychiatry 07/09/17 Laura Mock MD, DMD [address] [address] [email or web address] Attributed Provider 09/01/21 07/03/23 Laura Mock MD, DMD [address] [address] [email or web address] Insurance Assigned Provider 05/31/23 03/01/24 Jakob Bob MD [address] [place] [address] [place] [address] [email or web address] Cardiology 08/22/23 Jose Cruz MD [address] [place] [address] [address] [place] [address] [email or web address] Cardiology 08/22/23 Laura Mock MD, DMD [address] [place] [address] [address] [place] [address] [email or web address] Attributed Provider 09/01/21 07/03/23 [place] [facility] [phone]. Consulting Provider 08/22/23 [facility] Connect 12/24/23 03/11/24 Cyril Morales [address] [place] [address] Nurse Practitioner 02/27/24 documented as of this encounter Additional Source Comments The information contained in this document represents components of the legal health record. It is not the complete legal health record.[facility]
--- OUTSIDE RECORDS SUMMARY | 2025-01-07 22:01 | XMS_ITS | Encounter Summary ---
Author Organization [facility] Address [facility] [address] [address] Phone Care Team Providers Care General Supervisor Name Role Phone Rina Swenson MD Unavailable Laura Mock MD, DMD Primary Car e Provider Laura Mock MD, DMD Unavailable Laura Mock MD, DMD Unavailable Jakob Bob MD Unavailable Jose Cruz MD Unavailable [phone] Laura Mock MD, DMD Unavailable Pcp, Unknown [...] Description 01/31/2025 1:00 PM EST Office Visit [facility] Cardiovascular Medicine 32 [facility], 5th Floor, [address] [place] [address] Karena Betancur MD [address] [address] [email or web address] 03/08/2025 9:30 AM EST [facility]-Admission [facility] 45 [facility] 2nd [place] [address] Irineo Ruff MD 75 [place] [address] [email or web address] 03/15/2025 Procedure Pass [facility] Endoscopy Department [address] [place] [address] 03/15/2025 7:30 AM EST Hospital Encounter [facility] Endoscopy Department [address] [place] [address] Irineo Ruff MD 75 [facility] [place] [address] [email or web address] 03/15/2025 7:30 AM EST - 03/15/2025 8:15 AM EST Surgery [facility] Endoscopy Department [address] [place] [address] Irineo Ruff MD [address] [place] [address] [place] [address] [email or web address] [email or web address] Scheduled Procedures [...] documented as of this encounter Care Teams General Supervisor Relationship Specialty Start Date End Date Laura Mock MD, DMD [address] [address] [email or web address] PCP - General Internal Medicine 06/04/21 11/11/23 Pcp, Unknown PCP - General 11/12/23 11/16/23 Laura Mock MD, DMD [address] [address] [email or web address] PCP - General Internal Medicine 11/17/23 12/28/23 Pcp, Unknown PCP - General 02/28/24 03/04/24 Nicole Newell MD [address] [place] [id number] PCP - General 03/05/24 05/17/24 Laura Mock MD, DMD [address] [address] [email or web address] PCP - General Internal Medicine 05/18/24 Rina Swenson MD Psychiatry 07/09/17 Laura Mock MD, DMD [address] [address] [email or web address] Attributed Provider 09/01/21 07/03/23 Laura Mock MD, DMD [address] [address] [email or web address] Insurance Assigned Provider 05/31/23 03/01/24 Jakob Bob MD [address] [facility] [place] [address] [email or web address] Cardiology 08/22/23 Jose Cruz MD [address] [place] [address] Cardiology 08/22/23 Laura Mock MD, DMD [address] [address] [email or web address] Partners Attributed Provider 09/01/21 07/03/23 [facility] [phone]. Consulting Provider 08/22/23 [facility] Connect 12/24/23 03/11/24 Cyril Morales [address] [place] [address] Nurse Practitioner 02/27/24 documented as of this encounter Additional Source Comments The information contained in this document represents components of the legal health record. It is not the complete legal health record.[facility]
--- OUTSIDE RECORDS SUMMARY | 2025-01-07 22:01 | XMS_ITS | Clinical Summary ---
Author Organization [facility] Address [address] [place] [address] Phone Care Team Providers Care Joinery Patternmaker Name Role Phone Rina Swenson MD Unavailable Jakob Bob MD Unavailable [phone] Jose Cruz MD Unavailable [phone] Laura Mock MD, DMD Primary Car e [...] mycobacterial disease, followed by thoracic team at [facility]; has chronic changes on CT No [...] given a the option to go [facility] Coumad[facility] clinic or to go back to [facility] where she has been a patient there [...] Encounters Date Type Department Care Team Description 12/30/2024 Telephone [facility] [address] [facility] 2nd [place] [address] Laura Mock MD, DMD Medication Question 10/13/2024 Telephone [facility] [address] [facility] 2nd [place] [address] Laura Mock MD, DMD Colonoscopy 10/07/2024 [facility] Cardiovascular [address] 3rd Floor, [address] [place] [address] Jose Cruz MD Medication Refill from [facility] [...] [facility] Medicine 32 [facility], 5th Floor, [address] [place] [address] Karena Betancur MD [address] [address] [email or web address] 03/08/2025 9:30 AM EST Pre-Admission Testing [facility] 45 [facility] 2nd [place] [address] Irineo Ruff MD 75 [facility] [place] [address] [email or web address] 03/15/2025 Procedure Pass [facility] Endoscopy Department [address] [place] [address] 03/15/2025 7:30 AM EST Hospital Encounter [facility] Endoscopy Department [address] [place] [address] Irineo Ruff MD [address] [place] [address] [place] [address] [email or web address] 03/15/2025 7:30 AM EST - 03/15/2025 8:15 AM EST Surgery [facility] Endoscopy Department [address] [place] [address] Irineo Ruff MD [address] [place] [address] [place] [address] [email or web address] [email or web address] Scheduled Procedures Name Priority Associated Diagnoses Date/Ti me COLONOSCOPY Abnormal colonoscopy 03/15/2025 7:30 AM EST Health Maintenance Due Date [...] on patient's age to complete this topic IPV VACCINES Aged Out No longer eligi ble based on patient's age to complete this topic MENINGOCOCCAL VACCINES (ACWY) Aged Out No longer eligible based on patient's age to complete this topic MENINGOCOCCAL VACCINES (B) Aged Out N o longer eligible based on patient's age to complete this topic Medical Devices Implanted Type Area Csw Device Identifier Shelf Expiration Date Model / Serial / Lot St Drew Aortic Valve 23mm-04/19/2002 Implanted:04/19/19 03 (Quantity not on file) Description:Per OP report fr om 04/19/02: Pt has a 23mm [employer] Drew Aortic Valve replacement Per egg processor: cond to 1.5T and 3T (see scanned [...] EDT) SODIUM 139 136 - 145 mmol/L [facility] POTASSIUM 4.8 3.4 - 5.1 mmol/L [facility] CHLORIDE 100 98 - 107 mmol/L [facility] CO2 28 22 - 31 mmol/L [facility] BUN 18 6 - 23 mg/dL [facility] CREATININE 0.71 0.50 - 1.20 mg/dL [facility] GLUCOSE 94 70 - 100 mg/dL [facility] CALCIUM 9.6 8.8 - 10.7 mg/dL [facility] EGFR 83 >59 mL/min/1.7 3m2 [facility] Comment:Estimated glomerular filtration rate calculated using the CKD-EPI refit equation. ANION GAP 11 7 - 17 mmol/L [facility] Blood 12/04/2023 1:58 PM EDT 12/04/2023 2:02 PM EDT us Jim Zacarias MD LAB BLOOD BKR ORDERA BLES Final Result Performing Organization Address City/State/[facility] Co de Phone Number [facility] [address] [place] [address] * BD DXA AXIAL (SPINE) WITH HIP [...] bone mineral density was calculated at 0.409 gm/zr0gbmt a T- score of -4 falling within [...] and bilateral hip osteoporosis. Artie Meehan MD [facility] BD BONE DENSITY DEXA Final Result * COLONOSCOPY FOR RESULT ENTRY ONLY (06/24/2014) Colonoscopy Normal Comment:Done by Dr. Hernandez Historical Provider HEALTH MAINTENANCE Edited Result - Final from Last 3 Months or Most Recently Relevant to Health Maintenance Insurance MEDICARE PART A & B Member Subscriber Plan / Payer (Ef fective 2003-Present) Name:Anna Castillo Member ID:[id number] Relation to Subscriber:Self Name:Anna Castillo Subscriber ID:[id number] Payer ID:[id number] Group ID:Not on file Type:Medicare Address: [employer] [address] [employer] MEDEX SUPPLEMENT MEDICARE PART A & B [employer] MEDEX SUPPLEMENT MEDICARE PART A & B [employer] MEDEX SUPPLEMENT MEDICARE PART A & B [employer] MEDEX SUPPLEMENT MEDICARE PART A & B [employer] MEDEX SUPPLEMENT MEDICARE PART A & B [employer] MEDEX SUPPLEMENT MEDICARE PART A & B [employer] MEDEX SUPPLEMENT MEDICARE PART A & B Member Subscriber Plan / Payer ( fective 2003-Present) Name:Anna Castillo Member ID:[id number] Relation to Subscriber:Self Name:Anan Castillo Subscriber ID:[id number] Payer ID:[id number] Group ID:Not on file Type:Medicare Address: [employer] [address] [place] [id number] [employer] MEDEX SUPPLEMENT MEDICARE PART A & B [employer] MEDEX SUPPLEMENT Advance Directives For more information, please contact: [phone] (9AM - 5PM Nataliya/[facility], Friday-Friday) Documents on File Type Date Recorded Patient Formal Service Waiter Expl anation Healthcare Proxy 11/18/2023 2:08 PM Healthcare Proxy 11/14/2023 7:46 AM Health care Proxy * Full Code (Latest Code Status on File) Date Activated Date Inactivated Comments 11/12/2023 10:33 PM Question Answer Comments Code Status Confirmed With: Other (specify below ) Code Discussion Comments: Presumed Care Teams Joinery Patternmaker Relationship Specialty Start Date End Date aLura Mock MD, DMD 1 [facility] [address] [place] [address] [email or web address] PCP - General Internal Medicine 05/18/24 Rina Swenson MD Psychiatry 07/09/17 Jakob Bob MD 75 [facility] [place] [address] [email or web address] Cardiology 08/22/23 Jose Cruz MD 22 [facility], [address] [place] [address] [email or web address] Cardiology 08/22/23 [facility] [phone]. Consulting Provider 08/22/23 Cyril Morales [address] [place] [address] Nurse Practitioner 02/27/24 Additional Source Comments The information contained in this document represents components of the legal health record. It is not the complete legal health record.[facility]
--- OUTSIDE RECORDS SUMMARY | 2025-01-07 22:01 | XMS_ITS | Encounter Summary ---
Author Organization [facility] Address [address] [address] Phone Care Team Providers Care Truck Car And Bus Cleaner Name Role Phone Rina Swenson MD Unavailable [...] st Contact Info) Description 10/06/2022 Anti-coag visit [facility] Anticoagulation Clinic 75 [place] [address] Abbie Prieto, PharmD [address] [place] [address] [email or web address] Social History Tobacco Use Types Packs/Day Years [...] Description 01/31/2025 1:00 PM EST Office Visit [facility] Cardiovascular Medicine [address] [facility], 5th Floor, [address] [place] [address] Karena Betancur MD 55 [facility] 5[address] [place] [address] [email or web address] 03/08/2025 9:30 AM EST [facility] [place] [address] [facility] 2nd [place] [address] Irineo Ruff MD 75 [facility] [place] [address] [email or web address] 03/15/2025 Procedure Pass [facility] Endoscopy Department 75 [place] [address] 03/15/2025 7:30 AM EST Hospital Encounter [facility] Endoscopy Department [address] [place] [address] Irineo Ruff MD [address] [place] [address] [place] [address] [email or web address] 03/15/2025 7:30 AM EST - 03/15/2025 8:15 AM EST Surgery [facility] Endoscopy Department [address] [place] [address] Irineo Ruff MD [address] [place] [address] [place] [address] [email or web address] [email or web address] Scheduled Procedures Name Priority Associated [...] documented as of this encounter Care Teams Truck Car And Bus Cleaner Relationship Specialty Start Date End Date Laura Mock MD, DMD 1 [facility] [address] [place] [address] [email or web address] PCP - General Internal Medicine 06/04/21 11/11/23 Pcp, Unknown PCP - General 11/12/23 11/16/23 Laura Mock MD, DMD 1 [facility] [address] [place] [address] [email or web address] PCP - General Internal Medicine 11/17/23 12/28/23 Pcp, Unknown PCP - General 02/28/24 03/04/24 Nicole Newell [place] [address] [place] [address] PCP - General 03/05/24 05/17/24 Laura Mock MD, DMD [address] [address] [email or web address] PCP - General Internal Medicine 05/18/24 Rina Swenson MD Psychiatry 07/09/17 Laura Mock MD, DMD [address] [address] [email or web address] Attributed Provider 09/01/21 07/03/23 Laura Mock MD, DMD [address] [address] [email or web address] Insurance Assigned Provider 05/31/23 03/01/24 Jakob Bob MD [address] [place] [address] [place] [address] [email or web address] Cardiology 08/22/23 Jose rCuz MD [address] [place] [address], [address] [address] Cardiology 08/22/23 Laura Mock MD, DMD 1 [facility] [address] [place] [address] [email or web address] Attributed Provider 09/01/21 07/03/23 [facility] [phone]. Consulting Provider 08/22/23 [facility] Connect 12/24/23 03/11/24 Cyril Morales [address] [place] [address] Nurse Practitioner 02/27/24 documented as of this encounter Additional Source Comments The information contained in this document represents components of the legal health record. It is not the complete legal health record.[facility]
--- OUTSIDE RECORDS SUMMARY | 2025-01-07 22:01 | XMS_ITS | Encounter Summary ---
Author Organization [facility] Address [address] [employer] [facility] [address] [place] [address] Phone Care Team Providers Care Laborer Golf Course Name Role Phone Artie Meehan MD Primary Care Provider [phone] Artie Meehan MD Unavailable [phone] Rina Swenson MD Unavailable Laura Mock MD, [...] Description 12/11/2018 Ancillary Orders Virtual Department 30 [place] [address] Artie Meehan MD [address] [place] [address] [place] [address] Breast screening Social History Tobacco Use Types [...] [facility] Cardiovascular Medicine 32 [facility], 5th Floor, [address] [place] [address] Karena Betancur MD [address] [address] [email or web address] 03/08/2025 9:30 AM EST Pre-Admission Testing [facility] 45 [facility] 2nd [place] [address] Irineo Ruff MD 75 [place] [address] [email or web address] 03/15/2025 Procedure Pass [facility] Endoscopy Department [address] [place] [address] 03/15/2025 7:30 AM EST Hospital Encounter [facility] Endoscopy Department [address] [place] [address] Irineo Ruff MD [address] [place] [address] [place] [address] [email or web address] 03/15/2025 7:30 AM EST - 03/15/2025 8:15 AM EST Surgery [facility] Endoscopy Department [address] [place] [address] Irineo Ruff MD [address] [place] [address] [place] [address] [email or web address] Scheduled Procedures Name Priority Associated Diagnoses [...] lowers the sensitivity of mammography. POS - [id number] Narrative 01/05/2019 1:52 PM EST Full-field digital [...] whichlowers the sensitivity of mammography. POS - [id number] Artie Meehan MD IMG MG EXAMS Final [...] documented as of this encounter Care Teams Laborer Golf Course Relationship Specialty Start Date End Date Artie Meehan MD [address] [place] [address] [place] [address] PCP - General Internal Medicine 10/26/17 06/03/21 Laura Mock MD, DMD [address] [address] [email or web address] PCP - General Internal Medicine 06/04/21 11/11/23 Pcp, Unknown PCP - General 11/12/23 11/16/23 Laura Mock MD, DMD [address] [address] [email or web address] PCP - General Internal Medicine 11/17/23 12/28/23 Pcp, Unknown PCP - General 02/28/24 03/04/24 [place] [address] [address] PCP - General 03/05/24 05/17/24 Laura Mock MD, DMD [address] [address] [email or web address] PCP - General Internal Medicine 05/18/24 Artie Meehan MD [address] [place] [address] Dr D[address] [place] [address] Internal Medicine 10/26/17 04/23/22 Rina Swenson MD [address] [place] [address] Dr [address] [place] [address] Psychiatry 07/09/17 Luara Mock MD, DMD [address] [address] [email or web address] Attributed Provider 09/01/21 07/03/23 Laura Mock MD, DMD [address] [address] [email or web address] Insurance Assigned Provider 05/31/23 03/01/24 Jakob Bob MD [address] [place], [place] [address] [place] [address] [email or web address] Cardiology 08/22/23 Jose Cruz MD 22 [facility], [address] [place] [address] [email or web address] Cardiology 08/22/23 Laura Mock MD, DMD [address] [place] [address] [address] [place] [address] [email or web address] Attributed Provider 09/01/21 07/03/23 [place] [facility] [phone]. Consulting Provider 08/22/23 [facility] Connect 12/24/23 03/11/24 Cyril Morales [address] [place] [address] Nurse Practitioner 02/27/24 documented as of this encounter Additional Source Comments The information contained in this document represents components of the legal health record. It is not the complete legal health record.[facility]
--- OUTSIDE RECORDS SUMMARY | 2025-01-07 22:01 | XMS_ITS | Encounter Summary ---
Author Organization [facility] Address [address] [employer] [facility] [address] [place] [address] Phone Care Team Providers Care Brim Curler Name Role Phone Artie Meehan MD Primary Care Provider [phone] Artie Meehan MD Unavailable [phone] Rina Swenson MD Unavailable [phone] Laura Mock MD, DMD Primary Car e Provider Laura Mock MD, DMD Unavailable Laura Mock MD, DMD Unavailable Jakob Bob MD Unavailable Jose Cruz MD Unavailable Laura Mock MD, DMD Unavailable Pcp, Unknown Primary Care Provider UnavailLaura Ascencio MD, DMD Primary Car e Provider Pcp, Unknown Primary Care Provider UnavailNicole Arguello MD Primary Care Provide r Laura Mcok MD, DMD Primary Car e Provider Encounter Details Date Type Department Care Team (Late st Contact Info) Description 11/29/2017 Transcribe Orders [facility] Phleb Main [address] [place] [address] Artie Meehan MD [address] [place] [address] [place] [address] Hypertension, essential (Primary Dx) Social History Tobacco [...] [facility] Cardiovascular Medicine 32 [facility], 5th Floor, [address] [place] [address] Karena Betancur MD [address] [address] [email or web address] 03/08/2025 9:30 AM EST Pre-Admission Testing [facility] 45 [facility] 2nd [place] [address] Irineo Ruff MD 75 [place] [address] [email or web address] 03/15/2025 Procedure Pass [facility] Endoscopy Department [address] [place] [address] 03/15/2025 7:30 AM EST Hospital Encounter [facility] Endoscopy Department [address] [place] [address] Irineo Ruff MD 75 [facility] [place] [address] [email or web address] 03/15/2025 7:30 AM EST - 03/15/2025 8:15 AM EST Surgery [facility] Endoscopy Department [address] [place] [address] Irineo Ruff MD [address] [place] [address] End[place] [address] [email or web address] COLONOSCOPY Scheduled Procedures Name Priority Associated Diagnoses Date/Ti va COLONOSCOPY Abnormal colonoscopy 03/15/2025 7:30 AM EST documented as of this encounter Results * (ABNORMAL) Urinalysis (11/29/2017 10:52 AM EDT) COLOR Yellow Yellow [facility] CLARITY Clear [facility] GLUCOSE Negative Negative [facility] BILI Negative Negative [facility] KETONES Negative Negative [facility] SPECIFIC GRAVITY 1.015 1.005 - 1.030 [facility] BLOOD Trace(A) Negative [facility] PH 6.0 5.0 - 8.0 [facility] Protein-UA Negative Negative [facility] NITRITE Negative Negative [facility] Leukocyte esterase, ur Negative Negative [facility] Urine (Urine) 11/29/2017 10: 52 AM EDT 11/29/2017 10:57 AM EDT Artie Meehan MD LAB URINE ORDERABLES Neela l Result [address] [address] * (ABNORMAL) CBC and differential (11/29/2017 10:52 AM EDT) WBC 3.98 3.40 - 11.20 K/uL [facility] RBC 5.32(H) 3.80 - 4.80 M/uL [facility] HGB 15.7(H) 12.0 - 15.0 g/dL [facility] HCT 48.4(H) 36.0 - 46.0 % [facility] PLT 223 130 - 400 K/uL [facility] MCV 91.0 79.0 - 98.0 fL [facility] MCH 29.5 27.0 - 34.8 pg [facility] MCHC 32.4 31.5 - 36.0 g/dL [facility] RDW 13.4 10.8 - 14.6 % [facility] MPV 9.1(L) 9.4 - 12.4 fl [facility] NRBC 0.00 /100 WBCs [facility] ABSOLUTE NRBC 0.00 K/uL [facility] DIFF METHOD Auto [facility] NEUTS 58.8 45.30 - 77.70 % [facility] LYMPHS 26.6 12.30 - 39.70 % [facility] MONOS 10.8 4.10 - 12.80 % [facility] EOS 2.5 0 - 7.2 % [facility] BASOS 1.0 0 - 2.80 % [facility] Granulocytes, immature (%) 0.3 0.0 - 0.9 % [facility] ABSOLUTE NEUTS 2.34 1.40 - 7.70 K/uL [facility] ABSOLUTE LYMPHS 1.06 0.60 - 3.20 K/uL [facility] ABSOLUTE MONOS 0.43 0.11 - 0.59 K/uL [facility] ABSOLUTE EOS 0.10 0.01 - 0.50 K/uL [facility] ABSOLUTE BASOS 0.04 0.00 - 0.08 K/uL [facility] Granulocytes, immature 0.01 0.00 - 0.05 K/uL [facility] Blood 11/29/2017 10:5 2 AM EDT 11/29/2017 10:57 AM EDT us Artie Meehan MD LAB BLOOD BKR ORDERABLES Final Result [address] [address] * (ABNORMAL) Lipid panel (11/29/2017 10:52 AM EDT) HDL 82 mg/dL [facility] Comment: Interpretation: Risk Level Females Decreased >55mg/dL Average 50-55 mg/dL Increased <50 mg/dL CHOLESTEROL 253(H) 0 - 240 mg/dL [facility] TRIGLYCERIDES 83 30 - 160 mg/dL [facility] LDL 154(H) 50 - 129 mg/dL [facility] Comment: LDL levels in terms of risk for coronary heart disease: <100 mg/dL: Optimal 100-129 mg/dL: Near or above optimal 130-159 mg/dL: Borderline high 160-189 mg/dL: High >190 mg/dL: Very High CARDIAC RISK RATIO 3.1(L) 3.3 - 4.4 C [facility] Blood 11/29/2017 10:5 2 AM EDT 11/29/2017 10:57 AM EDT us Artie Meehan MD LAB BLOOD BKR ORDERABLES Final Result [facility] [address] [place] [address] * Comprehensive metabolic panel (11/29/2017 10:52 AM EDT) SODIUM 145 133 - 146 mmol/L [facility] POTASSIUM 4.7 3.3 - 5.1 mmol/L [facility] CHLORIDE 104 96 - 108 mmol/L [facility] CO2 27 21 - 35 mmol/L [facility] BUN 17 6 - 19 mg/dL [facility] CREATININE 0.80 0.5 - 1.5 mg/dL [facility] GLUCOSE 86 70 - 99 mg/dL [facility] ALBUMIN 4.1 3.9 - 4.8 g/dL [facility] TOTAL PROTEIN 6.9 6.5 - 8.0 g/dL [facility] CALCIUM 9.2 8.4 - 10.3 mg/dL [facility] ALKALINE PHOSPHATASE 73 39 - 117 U/L [facility] TOTAL BILIRUBIN 0.5 0.0 - 1.2 mg/dL [facility] AST 19 0 - 37 U/L [facility] ALT 12 0 - 40 U/L [facility] GLOBULIN 2.8 1 - 4.8 g/dL [facility] EGFR 70 >59 mL/min/1.7 3m2 [facility] Comment:If patient is black, multiply result by 1.159. Estimated glomerular filtration rate calculated using the CKD-EPI equation. ANION GAP 19 10 - 20 mmol/L [facility] Blood 11/29/2017 10:5 2 AM EDT 11/29/2017 10:57 AM EDT Artie Meehan MD LAB BLOOD BKR ORDERABLES Final Result Performing Organization Address City/State/RUST Co de Phone Number [address] [address] documented in this encounter Visit Diagnoses Diagnosis Hypertension, essential- Primary Unspecified essential hypertension Abnormal colonoscopy documented in this encounter Additional Health Concerns Infection Onset Date Last Indicated Resolved Time CoV-Presumed 03/23/2022 03/23/2022 04/13/2022 1:23 AM EST CoV-Risk 11/12/2023 11/12/2023 11/12/2023 5:12 PM EDT COVID-19 11/12/2023 11/12/2023 12/03/2023 1:21 AM EDT documented as of this encounter Care Teams Brim Curler Relationship Specialty Start Date End Date Artie Meehan MD [address] [place] [address] [place] [address] PCP - General Internal Medicine 10/26/17 06/03/21 Laura Mock MD, DMD [address] [address] [email or web address] PCP - General Internal Medicine 06/04/21 11/11/23 Pcp, Unknown PCP - General 11/12/23 11/16/23 Laura Mock MD, DMD [address] [address] [email or web address] PCP - General Internal Medicine 11/17/23 12/28/23 Pcp, Unknown PCP - General 02/28/24 03/04/24 [place]ell [place] [address] [place] [address] PCP - General 03/05/24 05/17/24 Laura Mock MD, DMD [address] [address] [email or web address] PCP - General Internal Medicine 05/18/24 Artie Meehan MD [address] [place] [address] Dr Dior [facility] [place] [address] Internal Medicine 10/26/17 04/23/22 Rina Swenson MD [address] [place] [address] Dr [address] [place] [address] [place] [address] Psychiatry 07/09/17 Laura Mock MD, DMD [address] [address] [email or web address] Attributed Provider 09/01/21 07/03/23 Laura Mock MD, DMD [address] [address] [email or web address] Insurance Assigned Provider 05/31/23 03/01/24 Jakob Bob MD [address] [place] [address] [address] [place] [address] [email or web address] Cardiology 08/22/23 Jose Cruz MD [address] [facility], [address] [place] [address] Cardiology 08/22/23 Laura Mock MD, DMD 1 [facility] [address] [place] [address] [email or web address] Attributed Provider 09/01/21 07/03/23 [facility] [phone]. Consulting Provider 08/22/23 CAROLANN GREWAL Connect 12/24/23 03/11/24 Cyril Morales [address] [place] [address] Nurse Practitioner 02/27/24 documented as of this encounter Additional Source Comments The information contained in this document represents components of the legal health record. It is not the complete legal health record.[facility]
--- OUTSIDE RECORDS SUMMARY | 2025-01-07 22:01 | XMS_ITS | Encounter Summary ---
Author Organization [facility] Address [address] [place] [address] [place] [address] Phone Care Team Providers Care Endorsement Clerk Name Role Phone Rina Swenson MD Unavailable Laura Mock MD, DMD Primary Car e Provider Laura Mock MD, DMD Unavailable Laura Mock MD, DMD Unavailable Jakob Bob MD Unavailable Jose Cruz MD Unavailable [phone] Laura Mock MD, DMD Unavailable Pcp, Unknown Primary Care Provider UnavailLaura Ascencio MD, DMD Primary Car e Provider Pcp, Unknown Primary Care Provider UnavailNicole Arguello MD Primary Care Provide r Laura Mock MD, DMD Primary Car e Provider Encounter Details Date Type Department Care Team (Late st Contact Info) Description 03/23/2023 Anti-coag visit [facility] Anticoagulation Clinic [address] [place] [address] Purvi Lawler, PharmD 75 [place] [address] [email or web address] Social History Tobacco Use Types Packs/Day Years [...] [facility] Cardiovascular Medicine [address] [facility], 5th Floor, [address] [place] [address] Karena Betancur MD [address] [address] [email or web address] 03/08/2025 9:30 AM EST [facility]mission [facility] 45 [facility] 2nd [place] [address] Irineo Ruff MD 75 [facility] [place] [address] [email or web address] 03/15/2025 Procedure Pass [facility] Endoscopy Department [address] [place] [address] 03/15/2025 7:30 AM EST Hospital Encounter [facility] Endoscopy Department [address] [place] [address] Irineo Ruff MD [address] [place] [address] [place] [address] [email or web address] 03/15/2025 7:30 AM EST - 03/15/2025 8:15 AM EST Surgery [facility] Endoscopy Department [address] [place] [address] Irineo Ruff MD [address] [place] [address] [place] [address] [email or web address] COLONOSCOPY Scheduled Procedures [...] documented as of this encounter Care Teams Endorsement Clerk Relationship Specialty Start Date End Date Laura Mock MD, DMD 1 [facility] [address] [place] [address] [email or web address] PCP - General Internal Medicine 06/04/21 11/11/23 Pcp, Unknown PCP - General 11/12/23 11/16/23 Laura Mock MD, DMD 1 [facility] [address] [place] [address] [email or web address] PCP - General Internal Medicine 11/17/23 12/28/23 Pcp, Unknown PCP - General 02/28/24 03/04/24 [place]ell [place] [address] [place] [address] PCP - General 03/05/24 05/17/24 Laura Mock MD, DMD [address] [address] [email or web address] PCP - General Internal Medicine 05/18/24 Rina Swenson MD Psychiatry 07/09/17 Laura Mock MD, DMD [address] [address] [email or web address] Attributed Provider 09/01/21 07/03/23 Laura Mock MD, DMD [address] [address] [email or web address] Insurance Assigned Provider 05/31/23 03/01/24 Jakob Bob MD [address] [place] [address] [place] [address] [email or web address] Cardiology 08/22/23 Jose Cruz MD [address] [place] [address], [facility] [address] [place] [address] Cardiology 08/22/23 Laura Mock MD, DMD 1 [facility] [address] [place] [address] [email or web address] Attributed Provider 09/01/21 07/03/23 [facility] [phone]. Consulting Provider 08/22/23 [facility] Connect 12/24/23 03/11/24 Cyril Morales [facility] [place] [address] Nurse Practitioner 02/27/24 documented as of this encounter Additional Source Comments The information contained in this document represents components of the legal health record. It is not the complete legal health record.[facility]
--- OUTSIDE RECORDS SUMMARY | 2025-01-07 22:01 | XMS_ITS | Encounter Summary ---
Author Organization [facility] Address [address] [email or web address] [facility] [address] [place] [address] Phone Care Team Providers Care Principal Embedded Software Engineer Name Role Phone Artie Meehan MD Primary Care Provider [phone] Artie Meehan MD Unavailable Rina Swenson MD Unavailable Laura Mock MD, DMD Primary Car e Provider Laura Mock MD, DMD Unavailable Laura Mock MD, DMD Unavailable Jakob Bob MD Unavailable [phone] Jose Cruz MD Unavailable Laura Mock MD, DMD Unavailable Pcp, Unknown Primary Care Provider UnavailLaura Ascencio MD, DMD Primary Car e Provider Pcp, Unknown Primary Care Provider UnavailNicole Arguello MD Primary Care Provide r Laura Mock MD, DMD Primary Car e Provider Encounter Details Date Type Department Care Team (Late st Contact Info) Description 10/26/2017 Procedure Pass [facility], Ct Scan - [address] [address] Social History Tobacco Use Types Packs/Day Years [...] [facility] Cardiovascular Medicine 32 [facility], 5th Floor, [address] [place] [address] Karena Betancur MD [address] [address] [email or web address] 03/08/2025 9:30 AM EST [facility] [address] [place] [address] 2nd [place] [address] Irineo Ruff MD [address] [place] [address] [email or web address] 03/15/2025 Procedure Pass [facility] Endoscopy Department [address] [place] [address] 03/15/2025 7:30 AM EST Hospital Encounter [facility] Endoscopy Department [address] [place] [address] Irineo Ruff MD [address] [place] [address] [email or web address] 03/15/2025 7:30 AM EST - 03/15/2025 8:15 AM EST Surgery [facility] Endoscopy Department [address] [place] [address] Irineo Ruff MD [address] [place] [address] [place] [address] [email or web address] [email or web address] Scheduled Procedures Name Priority [...] documented as of this encounter Care Teams Principal Embedded Software Engineer Relationship Specialty Start Date End Date Artie Meehan MD [address] [place] [address] PCP - General Internal Medicine 10/26/17 06/03/21 Laura Mock MD, DMD [address] [address] [email or web address] PCP - General Internal Medicine 06/04/21 11/11/23 Pcp, Unknown PCP - General 11/12/23 11/16/23 Laura Mock MD, DMD [address] [address] [email or web address] PCP - General Internal Medicine 11/17/23 12/28/23 Pcp, Unknown PCP - General 02/28/24 03/04/24 [place] [address] [place] [address] PCP - General 03/05/24 05/17/24 Laura Mock MD, DMD [address] [address] [email or web address] PCP - General Internal Medicine 05/18/24 Artie Meehan MD [address] [place] [address] Dr [address] [place] [place] [address] Internal Medicine 10/26/17 04/23/22 Rina Swenson MD [address] [place] [address] Dr [address] [place] [place] [address] Psychiatry 07/09/17 Laura Mock MD, DMD [address] [address] [email or web address] Partners Attributed Provider 09/01/21 07/03/23 Laura Mock MD, DMD [address] [address] [email or web address] Insurance Assigned Provider 05/31/23 03/01/24 Jakob Bob MD [address] [place] [address] [address] [place] [address] [email or web address] Cardiology 08/22/23 Jose Cruz MD [address] [place] [address], [facility] [address] [place] [address] Cardiology 08/22/23 Laura Mock MD, DMD 1 [facility] [address] [place] [address] [email or web address] Attributed Provider 09/01/21 07/03/23 [facility] [phone]. Consulting Provider 08/22/23 [facility] Connect 12/24/23 03/11/24 Cyril Morales [address] [place] [address] Nurse Practitioner 02/27/24 documented as of this encounter Additional Source Comments The information contained in this document represents components of the legal health record. It is not the complete legal health record.[facility]
--- OUTSIDE RECORDS SUMMARY | 2025-01-07 22:01 | XMS_ITS | Encounter Summary ---
Author Organization [facility] Address [address] [facility] [address] [place] [address] Phone Care Team Providers Care Despatching And Receiving Clerk Name Role Phone Rina Swenson MD [...] st Contact Info) Description 10/09/2022 Procedure Pass [facility], [place] [address] [place] [address] Social History Tobacco Use Types Packs/Day Years [...] [facility] Cardi[facility] Medicine 32 [facility], 5th Floor, [address] [place] [address] Karena Betancur MD [address] [address] [email or web address] 03/08/2025 9:30 AM EST Pre-Admission Testing [facility] 45 [facility] 2nd [place] [address] Irineo Ruff MD [address] [place] [address] [email or web address] 03/15/2025 Procedure Pass [facility] Endoscopy Department [address] [place] [address] 03/15/2025 7:30 AM EST Hospital Encounter [facility] Endoscopy Department [address] [place] [address] Irineo Ruff MD [address] [place] [address] [email or web address] 03/15/2025 7:30 AM EST - 03/15/2025 8:15 AM EST Surgery [facility] Endoscopy Department [address] [place] [address] Irineo Ruff MD [address] [place] [address] End[place] [address] [email or web address] COLONOSCOPY Scheduled Procedures Name [...] documented as of this encounter Care Teams Despatching And Receiving Clerk Relationship Specialty Start Date End Date Laura Mock MD, DMD [address] [address] [email or web address] du PCP - General Internal Medicine 06/04/21 11/11/23 Pcp, Unknown PCP - General 11/12/23 11/16/23 Laura Mock MD, DMD [address] [address] [email or web address] du PCP - General Internal Medicine 11/17/23 12/28/23 Pcp, Unknown PCP - General 02/28/24 03/04/24 [place] [address] [address] PCP - General 03/05/24 05/17/24 Laura Mock MD, DMD [address] [address] [email or web address] du PCP - General Internal Medicine 05/18/24 Rina Swenson MD Psychiatry 07/09/17 Laura Mock MD, DMD [address] [address] [email or web address] du Partners Attributed Provider 09/01/21 07/03/23 Laura Mock MD, DMD [address] [address] [email or web address] du Insurance Assigned Provider 05/31/23 03/01/24 Jakob Bob MD 75 [facility] [place] [address] [email or web address] Cardiology 08/22/23 Jose Cruz MD [address] [place] [address], [address] [place] [address] Cardiology 08/22/23 Laura Mock MD, DMD [address] [address] [email or web address] Partners Attributed Provider 09/01/21 07/03/23 [facility] [phone]. Consulting Provider 08/22/23 [facility] Connect 12/24/23 03/11/24 Cyril Morales [address] [place] [address] Nurse Practitioner 02/27/24 documented as of this encounter Additional Source Comments The information contained in this document represents components of the legal health record. It is not the complete legal health record.[facility]
--- OUTSIDE RECORDS SUMMARY | 2025-01-07 22:01 | XMS_ITS | Encounter Summary ---
Author Organization [facility] Address [facility] SDI [address] [address] Phone Care Team Providers Care Delivery Nurse Name Role Phone Rina Swenson MD Unavailable Laura Mock MD, DMD Primary Car e Provider Laura Mock MD, DMD Unavailable Laura Mock MD, DMD Unavailable Jakob Bob MD Unavailable Jose Cruz MD Unavailable [phone] Laura Mock MD, DMD Unavailable Pcp, Unknown [...] Description 01/31/2025 1:00 PM EST Office Visit [facility] Cardiovascular Medicine 32 [facility], 5th Floor, [address] [place] [address] Karena Betancur MD [address] [address] [email or web address] 03/08/2025 9:30 AM EST Pre-Admission Testing [facility] 45 [facility] 2nd [place] [address] Irineo Ruff MD 75 [place] [address] [email or web address] 03/15/2025 Procedure Pass [facility] Endoscopy Department [address] [place] [address] 03/15/2025 7:30 AM EST Hospital Encounter [facility] Endoscopy Department [address] [place] [address] Irineo Ruff MD [address] [facility] [place] [address] [email or web address] 03/15/2025 7:30 AM EST - 03/15/2025 8:15 AM EST Surgery [facility] Endoscopy Department [address] [place] [address] Irineo Ruff MD [address] [place] [address] [place] [address] [email or web address] COLONOSCOPY Scheduled [...] documented as of this encounter Care Teams Delivery Nurse Relationship Specialty Start Date End Date Laura Mock MD, DMD [address] [address] [email or web address] du PCP - General Internal Medicine 06/04/21 11/11/23 Pcp, Unknown PCP - General 11/12/23 11/16/23 Laura Mock MD, DMD [address] [address] [email or web address] PCP - General Internal Medicine 11/17/23 12/28/23 Pcp, Unknown PCP - General 02/28/24 03/04/24 Nicole Newell MD [address] [place] [address] [id number] PCP - General 03/05/24 05/17/24 Laura Mock MD, DMD [address] [address] [email or web address] du PCP - General Internal Medicine 05/18/24 Rina Swenson MD Psychiatry 07/09/17 Laura Mock MD, DMD [address] [address] [email or web address] Partners Attributed Provider 09/01/21 07/03/23 Laura Mock MD, DMD [address] [address] [email or web address] du Insurance Assigned Provider 05/31/23 03/01/24 Jakob Bob MD 75 [facility] [place] [address] [email or web address] Cardiology 08/22/23 Jose Cruz MD [address] [place] [address] Cardiology 08/22/23 Laura Mock MD, DMD [address] [address] [email or web address] du Partners Attributed Provider 09/01/21 07/03/23 [facility] [phone]. Consulting Provider 08/22/23 [facility] Connect 12/24/23 03/11/24 Cyril Morlaes [address] [place] [address] Nurse Practitioner 02/27/24 documented as of this encounter Additional Source Comments The information contained in this document represents components of the legal health record. It is not the complete legal health record.[facility]
--- OUTSIDE RECORDS SUMMARY | 2025-01-07 22:02 | XMS_ITS | Encounter Summary ---
Author Organization [facility] Address [facility] [facility] [address] [place] [address] Phone Care Team Providers Care Lathe Spotter Name Role Phone Artie Meehan MD Primary Care Provider Artie Meehan MD Primary Care Provider Artie Meehan MD Unavailable Rina Swenson MD Unavailable Laura Mock MD, DMD Primary Car e Provider Laura Mock MD, DMD Unavailable Laura Mock MD, DMD Unavailable Jakob Bob MD Unavailable [phone] Jose Cruz MD Unavailable [phone] Laura Mock MD, DMD Unavailable Pcp, Unknown Primary Care Provider UnavailLaura Ascencio MD, DMD Primary Car e Provider Pcp, Unknown Primary Care Provider UnavailNicole Arguello MD Primary Care Provide r Laura Mock MD, DMD Primary Car e Provider Encounter Details Date Type Department Care Team (Late st Contact Info) Description 08/19/2017 Ancillary Orders Virtual Department [address] [place] [address] Artie Meehan MD [address] [place] [address] [place] [address] Breast screening Social History Tobacco Use Types [...] Description 01/31/2025 1:00 PM EST Office Visit [facility] Cardiovascular Medicine 32 [facility], 5th Floor, [address] [place] [address] Karena Betancur MD [address] [address] [email or web address] 03/08/2025 9:30 AM EST Pre-Admission Testing [facility] 45 [facility] 2nd [place] [address] Irineo Ruff MD 75 [place] [address] [email or web address] 03/15/2025 Procedure Pass [facility] Endoscopy Department 75 [place] [address] 03/15/2025 7:30 AM EST Hospital Encounter [facility] Endoscopy Department [address] [place] [address] Irineo Ruff MD 75 [facility] [place] [address] [email or web address] 03/15/2025 7:30 AM EST - 03/15/2025 8:15 AM EST Surgery [facility] Endoscopy Department [address] [place] [address] Irineo Ruff MD [address] [place] [address], [place] [address] [email or web address] [email or web address] Scheduled Procedures Name Priority Associated [...] lowers the sensitivity of mammography. POS - [id number] Narrative 09/12/2017 2:03 PM EDT Full-field digital [...] whichlowers the sensitivity of mammography. POS - [id number] Artie Meehan MD IMG MG EXAMS Final [...] documented as of this encounter Care Teams Lathe Spotter Relationship Specialty Start Date End Date Artie Meehan MD [address] [place] [address] Dr Dior [facility] [place] [address] PCP - General Internal Medicine 07/09/17 10/25/17 Artie Meehan MD [address] [place] [address] [place] [address] PCP - General Internal Medicine 10/26/17 06/03/21 Laura Mock MD, DMD 1 [facility] [address] [place] [address] [email or web address] PCP - General Internal Medicine 06/04/21 11/11/23 Pcp, Unknown PCP - General 11/12/23 11/16/23 Laura Mock MD, DMD [address] [address] [email or web address] du PCP - General Internal Medicine 11/17/23 12/28/23 Pcp, Unknown PCP - General 02/28/24 03/04/24 [place] [address] [address] PCP - General 03/05/24 05/17/24 Laura Mock MD, DMD [address] [address] [email or web address] du PCP - General Internal Medicine 05/18/24 Artie Meehan MD [address] [place] [address] Dr [address] [place] [address] [place] [address] Internal Medicine 10/26/17 04/23/22 Rina Swenson MD [address] [place] [address] Dr Dior [facility] [place] [address] Psychiatry 07/09/17 Laura Mock MD, DMD [address] [address] [email or web address] Partners Attributed Provider 09/01/21 07/03/23 Laura Mock MD, DMD [address] [address] [email or web address] du Insurance Assigned Provider 05/31/23 03/01/24 Jakob Bob MD 75 [facility] [address] [place] [address] [email or web address] Cardiology 08/22/23 Jose Cruz MD 22 [facility] [address] [place] [address] [email or web address] Cardiology 08/22/23 Laura Mock MD, DMD [address] [place] [address] [address] [place] [address] [email or web address] Partners Attributed Provider 09/01/21 07/03/23 [facility] [phone]. Consulting Provider 08/22/23 [facility] Connect 12/24/23 03/11/24 Cyril Morales [address] [place] [address] Nurse Practitioner 02/27/24 documented as of this encounter Additional Source Comments The information contained in this document represents components of the legal health record. It is not the complete legal health record.[facility]
--- OUTSIDE RECORDS SUMMARY | 2025-01-07 22:02 | XMS_ITS | Encounter Summary ---
Author Organization [facility] Address [address] [employer] [facility] [address] [place] [address] Phone Care Team Providers Care Automatic Packer Operator Name Role Phone Artie Meehan MD Primary Care Provider [phone] Artie Meehan MD Unavailable Rina Swenson MD [...] st Contact Info) Description 11/27/2018 Transcribe Orders [facility] 4 [place] [address] Artie Meehan MD [address] [place] [address] [place] [address] Social History Tobacco Use Types Packs/Day Years [...] [facility] 32 [facility], 5th Floor, [address] [place] [address] Karena Betancur MD [address] [address] [email or web address] 03/08/2025 9:30 AM EST Pre-Admission Testing [facility] [address] [facility] 2nd [place] [address] Irineo Ruff MD [address] [place] [address] [email or web address]@[email or web address] 03/15/2025 Procedure Pass [facility] Endoscopy Department [address] [place] [address] 03/15/2025 7:30 AM EST Hospital Encounter [facility] Endoscopy Department [address] [place] [address] Irineo Ruff MD [address] [place] [address] [place] [address] [email or web address] 03/15/2025 7:30 AM EST - 03/15/2025 8:15 AM EST Surgery [facility] Endoscopy Department [address] [place] [address] Irineo Ruff MD [address] [place] [address] [place] [address] [email or web address] COLONOSCOPY Scheduled Procedures Name Priority [...] documented as of this encounter Care Teams Automatic Packer Operator Relationship Specialty Start Date End Date Artie Meehan MD [address] [place] [address] [place] [address] PCP - General Internal Medicine 10/26/17 06/03/21 Laura Mock MD, DMD [address] [address] [email or web address] PCP - General Internal Medicine 06/04/21 11/11/23 Pcp, Unknown PCP - General 11/12/23 11/16/23 Laura Mock MD, DMD [address] [address] [email or web address] PCP - General Internal Medicine 11/17/23 12/28/23 Pcp, Unknown PCP - General 02/28/24 03/04/24 [place] [address] [address] PCP - General 03/05/24 05/17/24 Laura Mock MD, DMD [address] [address] [email or web address] PCP - General Internal Medicine 05/18/24 Artie Meehan MD [address] [place] [address] Dr [address] [place] [address] Internal Medicine 10/26/17 04/23/22 Rina Swenson MD [address] [place] [address] Dr D[address] [place] [place] [address] Psychiatry 07/09/17 Laura Mock MD, DMD [address] [address] [email or web address] Partners Attributed Provider 09/01/21 07/03/23 Laura Mock MD, DMD [address] [address] [email or web address] Insurance Assigned Provider 05/31/23 03/01/24 Jakob Bob MD [address] [place] [address] [place] [address] [email or web address] Cardiology 08/22/23 Jose Cruz MD [address] [place] [address], [address] [address] Cardiology 08/22/23 Laura Mock MD, DMD 1 [facility] [address] [place] [address] [email or web address] Partners Attributed Provider 09/01/21 07/03/23 [facility] [phone]. Consulting Provider 08/22/23 [facility] Connect 12/24/23 03/11/24 Cyril Morales [address] [place] [address] Nurse Practitioner 02/27/24 documented as of this encounter Additional Source Comments The information contained in this document represents components of the legal health record. It is not the complete legal health record.[facility]
--- OUTSIDE RECORDS SUMMARY | 2025-01-07 22:02 | XMS_ITS | Encounter Summary ---
Author Organization [facility] Address [facility] [place] [address] [address] Phone Care Team Providers Care Prosthetic Technician Name Role Phone Artie Meehan MD Primary Care Provider Artie Meehan MD Unavailable [phone] Rina Swenson MD Unavailable [phone] Laura Mock MD, DMD Primary Car e [...] sequela Artie Meehan MD Phone: tel: fax: [facility] [address] [place] [address] Phone: tel: Referral ID Status Reason Start Date Expiration Date Visits Re quested Visits Authorized [id number] Closed 11/27/2018 02/23/2019 99 99 Encounter Details Date Type Department Care Team (Latest Contact Info) Description 11/27/2018 Transcribe Orders [facility] Rehabilitation Services [address] [place] [address] Artie Meehan MD [address] [place] [address] [place] [address] Left wrist fracture, sequela (Primary Dx) Social [...] [facility] Cardiovascular Medicine 32 [facility], 5th Floor, [address] [place] [address] Karena Betancur MD 55 [facility] [address] [place] [address] [email or web address] 03/08/2025 9:30 AM EST Pre-Admission Testing [facility] 45 [facility] 2nd [place] [address] Irineo Ruff MD [address] [place] [address] [email or web address] 03/15/2025 Procedure Pass [facility] Endoscopy Department [address] [place] [address] 03/15/2025 7:30 AM EST Hospital Encounter [facility] Endoscopy Department [address] [place] [address] Irineo Ruff MD [address] [place] [address] [email or web address] 03/15/2025 7:30 AM EST - 03/15/2025 8:15 AM EST Surgery [facility] Endoscopy Department [address] [place] [address] Irineo Ruff MD [address] [place] [address] [email or web address] COLONOSCOPY Scheduled Procedures Name Priority Associated Diagnoses Date/Ti me COLONOSCOPY Abnormal colonoscopy 03/15/2025 7:30 AM EST documented as of this encounter Procedures Procedure Name Priority Date/Time Associated Diagnosis Comments AMB REFERRAL TO [facility] OCCUPATIONAL THERAPY Routine 12/08/2018 4:10 PM EDT Left wrist fracture, sequela documented in this encounter Results * Ambulatory referral to [facility] Occupational Therapy (12/08/2018 4:10 PM EDT) Artie Meehan MD AMB [facility] REFERRALS Final R esult documented in this encounter Visit Diagnoses Diagnosis Left wrist fracture, sequela- Primary Abnormal colonoscopy documented in this encounter Additional Health Concerns Infection Onset Date Last Indicated Resolved Time CoV-Presumed 03/23/2022 03/23/2022 04/13/2022 1:23 AM EST CoV-Risk 11/12/2023 11/12/2023 11/12/2023 5:12 PM EDT COVID-19 11/12/2023 11/12/2023 12/03/2023 1:21 AM EDT documented as of this encounter Care Teams Prosthetic Technician Relationship Specialty Start Date End Date Artie Meehan MD [address] [place] [address] [place] [address] PCP - General Internal Medicine 10/26/17 06/03/21 Laura Mock MD, DMD 1 [facility] [address] [place] [address] [email or web address] PCP - General Internal Medicine 06/04/21 11/11/23 Pcp, Unknown PCP - General 11/12/23 11/16/23 Laura Mock MD, DMD [address] [address] [email or web address] du PCP - General Internal Medicine 11/17/23 12/28/23 Pcp, Unknown PCP - General 02/28/24 03/04/24 Nicole Newell MD [address] [place] [address] PCP - General 03/05/24 05/17/24 Laura Mock MD, DMD [address] [address] [email or web address] du PCP - General Internal Medicine 05/18/24 Artie Meehan MD [address] [place] [address] [place] [address] Internal Medicine 10/26/17 04/23/22 Rina Swenson MD [address] [place] [address] [place] [address] Psychiatry 07/09/17 Laura Mock MD, DMD [address] [address] [email or web address] Partners Attributed Provider 09/01/21 07/03/23 Laura oMck MD, DMD [address] [address] [email or web address] Insurance Assigned Provider 05/31/23 03/01/24 Jakob Bob MD [address] [place] [address] [place] [address] [email or web address] Cardiology 08/22/23 Jose Cruz MD [address] [place] [address] [email or web address] Cardiology 08/22/23 Laura Mock MD, DMD [address] [address] [email or web address] Partners Attributed Provider 09/01/21 07/03/23 [facility] [phone]. Consulting Provider 08/22/23 [facility] Connect 12/24/23 03/11/24 Cyril Morales [address] [place] [address] Nurse Practitioner 02/27/24 documented as of this encounter Additional Source Comments The information contained in this document represents components of the legal health record. It is not the complete legal health record.[facility]
--- OUTSIDE RECORDS SUMMARY | 2025-01-07 22:03 | XMS_ITS | Encounter Summary ---
Author Organization [facility] Address 399 [employer] [facility] [address] [place] [address] Phone Care Team Providers Care Automotive Service Writer Name Role Phone Artie Meehan MD Primary Care Provider [phone] Artie Meehan MD Unavailable Rina Swenson MD Unavailable Laura Mock MD, DMD Primary Car e Provider Laura Mock MD, DMD Unavailable Laura Mock MD, DMD Unavailable Jakob Bob MD Unavailable [phone] Jose Cruz MD Unavailable [phone] Laura Mock MD, DMD Unavailable Pcp, Unknown Primary Care Provider UnavailLaura Ascencio MD, DMD Primary Car e Provider Pcp, Unknown Primary Care Provider UnavailNicole Arguello MD Primary Care Provide r Laura Mock MD, DMD Primary Car e Provider Encounter Details Date Type Department Care Team (Late st Contact Info) Description 05/15/2018 Procedure Pass [facility], [address] [address] Social History Tobacco Use Types Packs/Day Years [...] Description 01/31/2025 1:00 PM EST Office Visit [facility] Cardiovascular Medicine 32 [facility], 5th Floor, [address] [place] [address] Karena Betancur MD [address] [address] [email or web address] 03/08/2025 9:30 AM EST [facility]mission [facility] [address] [place] [address] 2nd [place] [address] Irineo Ruff MD [address] [place] [address] [email or web address] 03/15/2025 Procedure Pass [facility] Endoscopy Department [address] [place] [address] 03/15/2025 7:30 AM EST Hospital Encounter [facility] Endoscopy Department [address] [place] [address] Irineo Ruff MD [address] [place] [address] [email or web address] 03/15/2025 7:30 AM EST - 03/15/2025 8:15 AM EST Surgery [facility] Endoscopy Department [address] [place] [address] Irineo Ruff MD [address] [place] [address] [place] [address] [email or web address] [email or web address] Scheduled Procedures Name Priority [...] as of this encounter Care Teams Automotive Service Writer Relationship Specialty Start Date End Date Artie Meehan MD [address] [place] [address] PCP - General Internal Medicine 10/26/17 06/03/21 Laura Mock MD, DMD [address] [address] [email or web address] PCP - General Internal Medicine 06/04/21 11/11/23 Pcp, Unknown PCP - General 11/12/23 11/16/23 Laura Mock MD, DMD [address] [address] [email or web address] du PCP - General Internal Medicine 11/17/23 12/28/23 Pcp, Unknown PCP - General 02/28/24 03/04/24 [place] [address] [address] PCP - General 03/05/24 05/17/24 Laura Mock MD, DMD [address] [address] [email or web address] du PCP - General Internal Medicine 05/18/24 Artie Meehan MD [address] [place] [address] [place] [address] Internal Medicine 10/26/17 04/23/22 Rina Swenson MD [address] [place] [address] [place] [address] Psychiatry 07/09/17 Laura Mock MD, DMD [address] [address] [email or web address] du Partners Attributed Provider 09/01/21 07/03/23 Laura Mock MD, DMD [address] [address] [email or web address] du Insurance Assigned Provider 05/31/23 03/01/24 Jakob Bob MD [address] [place] [address] [address] [place] [address] [email or web address] Cardiology 08/22/23 Jose Cruz MD [address] [place] [address], [facility] [address] [place] [address] Cardiology 08/22/23 Laura Mock MD, DMD 1 [facility] [address] [place] [address] [email or web address] Partners Attributed Provider 09/01/21 07/03/23 [facility] [phone]. Consulting Provider 08/22/23 [facility] Connect 12/24/23 03/11/24 Cyril Morales [facility] [place] [address] Nurse Practitioner 02/27/24 documented as of this encounter Additional Source Comments The information contained in this document represents components of the legal health record. It is not the complete legal health record.[facility]
--- OUTSIDE RECORDS SUMMARY | 2025-01-07 22:03 | XMS_ITS | Encounter Summary ---
Author Organization [facility] Address 399 [employer] [facility] [address] [place] [address] Phone Care Team Providers Care Fire Protection Engineer Name Role Phone Artie Meehan MD Primary Care Provider [phone] Artie Meehan MD Unavailable Rina Swenson MD [...] (GI/) Daryn Moyer MD Phone: tel: fax: mailto:[email or web address] Referral ID Status Reason Start Date Expiration Date Visits Re quested Visits Authorized [id number] Closed 12/24/2017 12/24/2018 1 1 Encounter Details Date Type Department Care Team ([facility] Contact Info) Description 12/24/2017 Ancillary Orders [facility] Urology 45 [facility]2-3 [place] [address] Daryn Moyer MD 45 [facility] 11[address]3 [place] [address] [email or web address] Gross hematuria Social History Tobacco Use Types [...] ([facility] Contact Info) Description 01/31/2025 1:00 PM EST Office Visit [facility] Cardiovascular Medicine 32 [facility], 5th Floor, [address] [place] [address] Karena Betancur MD 55 [facility] 5[address] [place] [address] [email or web address] 03/08/2025 9:30 AM EST Pre-Admission Testing [facility] 45 [facility] 2nd [place] [address] Irineo Ruff MD [address] [place] [address] [place] [address] [email or web address] 03/15/2025 Procedure Pass [facility] Endoscopy Department [address] [place] [address] 03/15/2025 7:30 AM EST Hospital Encounter [facility] Endoscopy Department [address] [place] [address] Irineo Ruff MD [address] [place] [address] [place] [address] [email or web address] 03/15/2025 7:30 AM EST - 03/15/2025 8:15 AM EST Surgery [facility] Endoscopy Department [address] [place] [address] Irineo Ruff MD [address] [place] [address] [email or web address] COLONOSCOPY Scheduled Procedures Name Priority Associated [...] as of this encounter Care Teams Fire Protection Engineer Relationship Specialty Start Date End Date Artie Meehan MD [address] [place] [address] [place] [address] PCP - General Internal Medicine 10/26/17 06/03/21 Laura Mock MD, DMD [address] [address] [email or web address] PCP - General Internal Medicine 06/04/21 11/11/23 Pcp, Unknown PCP - General 11/12/23 11/16/23 Laura Mock MD, DMD [address] [address] [email or web address] PCP - General Internal Medicine 11/17/23 12/28/23 Pcp, Unknown PCP - General 02/28/24 03/04/24 Nicole Newell MD [address] [place] [address] PCP - General 03/05/24 05/17/24 Laura Mock MD, DMD [address] [address] [email or web address] PCP - General Internal Medicine 05/18/24 Artie Meehan MD [address] [place] [address] [place] [address] Internal Medicine 10/26/17 04/23/22 Rina Swenson MD [address] [place] [address] [place] [address] Psychiatry 07/09/17 Laura Mock MD, DMD [address] [address] [email or web address] Partners Attributed Provider 09/01/21 07/03/23 Laura Mock MD, DMD [address] [address] [email or web address] du Insurance Assigned Provider 05/31/23 03/01/24 Jakob Bob MD [address] [place] [address] [place] [address] [email or web address] Cardiology 08/22/23 Jose Cruz MD [address] [place] [address] Cardiology 08/22/23 Laura Mock MD, DMD [address] [address] [email or web address] Partners Attributed Provider 09/01/21 07/03/23 [facility] [phone]. Consulting Provider 08/22/23 [facility] Connect 12/24/23 03/11/24 Cyril Morales [facility] [place] [address] Nurse Practitioner 02/27/24 documented as of this encounter Additional Source Comments The information contained in this document represents components of the legal health record. It is not the complete legal health record.[facility]
--- OUTSIDE RECORDS SUMMARY | 2025-01-07 22:03 | XMS_ITS | Encounter Summary ---
Author Organization [facility] Address 399 [employer] [facility] [address] [place] [address] Phone Care Team Providers Care Channel Lip Stiffener Insoles Name Role Phone Artie Meehan MD Primary Care Provider [phone] Artie Meehan MD Unavailable [phone] Rina Swenson MD Unavailable Laura Mock MD, [...] Expiration Date Visits Re quested Visits Authorized [id number] Closed 05/15/2018 05/15/2019 1 1 Encounter Details Date Type Department Care Team (Late Contact Info) Description 05/15/2018 Ancillary Orders For Login Purposes Only [facility] Floor 2 [address] [place] [address] Artie Meehan MD [address] [place] [address] [place] [address] Pancreatic cyst Social History Tobacco Use Types [...] Department Care Team (Late Contact Info) Description 01/31/2025 1:00 PM EST Office Visit [facility] Cardiovascular Medicine 32 [facility], 5th Floor, [address] [place] [address] Karena Betancur MD 55 [facility] 5B [place] [address] [email or web address] 03/08/2025 9:30 AM EST Pre-Admission Testing [facility] 45 [facility] 2nd [place] [address] Irineo Ruff MD 75 [facility] [place] [address] [email or web address] 03/15/2025 Procedure Pass [facility] Endoscopy Department [address] [place] [address] 03/15/2025 7:30 AM EST Hospital Encounter [facility] Endoscopy Department [address] [place] [address] Irineo Ruff MD [address] [place] [address] [place] [address] [email or web address] 03/15/2025 7:30 AM EST - 03/15/2025 8:15 AM EST Surgery [facility] Endoscopy Department [address] [place] [address] Irineo Ruff MD [address] [place] [address] WALI@[email or web address] COLONOSCOPY Scheduled Procedures Name Priority Associated Diagnoses Date/Ti nc COLONOSCOPY Abnormal colonoscopy 03/15/2025 7:30 AM EST [...] renal cysts. Right hepatic lobe cyst. POS [id number] Edited by: Abbie Barnett on 05/22/2018 12:52 [...] renal cysts. Right hepatic lobe cyst. POS [id number] Edited by: Abbie Barnett on 05/22/2018 12:52 [...] documented as of this encounter Care Teams Channel Lip Stiffener Insoles Relationship Specialty Start Date End Date Artie Meehan MD [address] [place] [address] [place] [address] PCP - General Internal Medicine 10/26/17 06/03/21 Laura Mock MD, DMD [address] [address] [email or web address] du PCP - General Internal Medicine 06/04/21 11/11/23 Pcp, Unknown PCP - General 11/12/23 11/16/23 Laura Mock MD, DMD [address] [address] [email or web address] du PCP - General Internal Medicine 11/17/23 12/28/23 Pcp, Unknown PCP - General 02/28/24 03/04/24 [place] [address] [address] PCP - General 03/05/24 05/17/24 Laura Mock MD, DMD [address] [address] [email or web address] du PCP - General Internal Medicine 05/18/24 Artie Meehan MD [address] [place] [address] Dr Dior [facility] [place] [address] Internal Medicine 10/26/17 04/23/22 Rina Swenson MD [address] [place] [address] Dr [address] [place] [address] Psychiatry 07/09/17 Laura Mock MD, DMD [address] [address] [email or web address] du Partners Attributed Provider 09/01/21 07/03/23 Laura Mock MD, DMD [address] [address] [email or web address] du Insurance Assigned Provider 05/31/23 03/01/24 Jakob Bob MD [address] [place] [address] [address] [place] [address] [email or web address] Cardiology 08/22/23 Jose Cruz MD [address] [place] [address], [address] [place] [address] Cardiology 08/22/23 Laura Mock MD, DMD [address] [address] [email or web address] Partners Attributed Provider 09/01/21 07/03/23 [facility] [phone]. Consulting Provider 08/22/23 [facility] Connect 12/24/23 03/11/24 Cyril Morales [address] [place] [address] Nurse Practitioner 02/27/24 documented as of this encounter Additional Source Comments The information contained in this document represents components of the legal health record. It is not the complete legal health record.[facility]
--- OUTSIDE RECORDS SUMMARY | 2025-01-07 22:03 | XMS_ITS | Encounter Summary ---
Author Organization [facility] Address 399 [employer] [facility] [address] [place] [address] Phone Care Team Providers Care Network Cable Installer Name Role Phone Artie Meehan MD Primary Care Provider [phone] Artie Meehan MD Unavailable Rina Swenson MD [...] st Contact Info) Description 12/19/2017 Procedure Pass [facility] [address] [place] [address] Social History Tobacco Use Types Packs/Day Years [...] [facility] Cardi[facility] Medicine 32 [facility], 5th Floor, [address] [place] [address] Karena Betancur MD [address] [address] [email or web address] 03/08/2025 9:30 AM EST Pre-Admission Testing [facility] 45 [facility] 2nd [place] [address] Irineo Ruff MD 75 [facility] [place] [address] [email or web address] 03/15/2025 Procedure Pass [facility] Endoscopy Department [address] [place] [address] 03/15/2025 7:30 AM EST Hospital Encounter [facility] Endoscopy Department [address] [place] [address] Irineo Ruff MD [address] [place] [address] [place] [address] [email or web address] 03/15/2025 7:30 AM EST - 03/15/2025 8:15 AM EST Surgery [facility] Endoscopy Department [address] [place] [address] Irineo Ruff MD [address] [place] [address] [place] [address] [email or web address] COLONOSCOPY Scheduled Procedures Name [...] as of this encounter Care Teams Network Cable Installer Relationship Specialty Start Date End Date Artie Meehan MD [address] [place] [address] [place] [address] PCP - General Internal Medicine 10/26/17 06/03/21 Laura Mock MD, DMD 1 [facility] [address] [place] [address] [email or web address] PCP - General Internal Medicine 06/04/21 11/11/23 Pcp, Unknown PCP - General 11/12/23 11/16/23 Laura Mock MD, DMD [address] [address] [email or web address] du PCP - General Internal Medicine 11/17/23 12/28/23 Pcp, Unknown PCP - General 02/28/24 03/04/24 [place] [address] [address] PCP - General 03/05/24 05/17/24 Laura Mock MD, DMD 1 [facility] [address] [place] [address] [email or web address] du PCP - General Internal Medicine 05/18/24 Artie Meehan MD [address] [place] [address] Dr [address] [place] [address] Internal Medicine 10/26/17 04/23/22 Rina Swenson MD [address] [place] [address] Dr [address] [place] [address] Psychiatry 07/09/17 Laura Mock MD, DMD [address] [address] [email or web address] Partners Attributed Provider 09/01/21 07/03/23 Laura Mock MD, DMD [address] [address] [email or web address] du Insurance Assigned Provider 05/31/23 03/01/24 Jakob Bob MD [address] [place] [address] [place] [address] [email or web address] Cardiology 08/22/23 Jose Cruz MD 22 [facility] [address] [place] [address] [email or web address] Cardiology 08/22/23 Laura Mock MD, DMD [address] [place] [address] [address] [place] [address] [email or web address] Partners Attributed Provider 09/01/21 07/03/23 [facility] [phone]. Consulting Provider 08/22/23 [facility] Connect 12/24/23 03/11/24 Cyril Morales [address] [place] [address] Nurse Practitioner 02/27/24 documented as of this encounter Additional Source Comments The information contained in this document represents components of the legal health record. It is not the complete legal health record.[facility]
--- OUTSIDE RECORDS SUMMARY | 2025-01-07 22:03 | XMS_ITS | Encounter Summary ---
Author Organization [facility] Address 399 [employer] [facility] [address] [place] [address] Phone Care Team Providers Care Typewriter Ribbon Winder Name Role Phone Artie Meehan MD Primary Care Provider [phone] Artie Meehan MD Unavailable Rina Swenson MD Unavailable [phone] Laura Mock MD, DMD Primary Car e Provider Laura Mock MD, DMD Unavailable Laura Mock MD, DMD Unavailable Jakob Bob MD Unavailable [phone] Jose Cruz MD Unavailable [phone] Laura Mock MD, DMD Unavailable Pcp, Unknown Primary Care Provider UnavailLaura Ascencio MD, DMD Primary Car e Provider Pcp, Unknown Primary Care Provider UnavailNicole Arguello MD Primary Care Provide r Laura Mock MD, DMD Primary Car e Provider Encounter Details Date Type Department Care Team (Late st Contact Info) Description 05/20/2018 Transcribe Orders [facility] Main [address] [place] [address] Artie Meehan MD [address] [place] [address] [place] [address] 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) [...] Upcoming Encounters Date Type Department Care Team ([facility] st Contact Info) Description 01/31/2025 1:00 PM EST Office [place] [facility] [place] 32 [facility], 5th Floor, [address] [place] [address] Karena Betancur MD [address] [address] [email or web address] 03/08/2025 9:30 AM EST Pre-Admission Testing [facility] 45 [facility] 2nd [place] [address] Irineo Ruff MD 75 [place] [address] [email or web address] 03/15/2025 Procedure Pass [facility] Endoscopy Department [address] [place] [address] 03/15/2025 7:30 AM EST Hospital Encounter [facility] Endoscopy Department [address] [place] [address] Irineo Ruff MD 75 [facility] [place] [address] [email or web address] 03/15/2025 7:30 AM EST - 03/15/2025 8:15 AM EST Surgery [facility] Endoscopy Department [address] [place] [address] Irineo Ruff MD [address] [place] [address] [place] [address] [email or web address] COLONOSCOPY Scheduled Procedures Name Priority Associated [...] documented as of this encounter Care Teams Typewriter Ribbon Winder Relationship Specialty Start Date End Date Artie Meehan MD [address] [place] [address] [place] [address] PCP - General Internal Medicine 10/26/17 06/03/21 Laura Mock MD, DMD [address] [address] [email or web address] PCP - General Internal Medicine 06/04/21 11/11/23 Pcp, Unknown PCP - General 11/12/23 11/16/23 Laura Mock MD, DMD [address] [address] [email or web address] PCP - General Internal Medicine 11/17/23 12/28/23 Pcp, Unknown PCP - General 02/28/24 03/04/24 [place] [address] [address] PCP - General 03/05/24 05/17/24 Laura Mock MD, DMD [address] [address] [email or web address] PCP - General Internal Medicine 05/18/24 Artie Meehan MD [address] [place] [address] [facility] [place] [address] Internal Medicine 10/26/17 04/23/22 Rina Swenson MD [address] [place] [address] [address] [place], [place] [address], [place] [address] Psychiatry 07/09/17 Laura Mock MD, DMD [address] [address] [email or web address] Partners Attributed Provider 09/01/21 07/03/23 Laura Mock MD, DMD [address] [address] [email or web address] Insurance Assigned Provider 05/31/23 03/01/24 Jakob Bob MD [address] [facility] [address] [place] [address] [email or web address] Cardiology 08/22/23 Jose Cruz MD 22 [facility], [address] [place] [address] [email or web address] Cardiology 08/22/23 Laura Mock MD, DMD 1 [facility] [address] [place] [address] [email or web address] Partners Attributed Provider 09/01/21 07/03/23 [place] [facility] [phone]. Consulting Provider 08/22/23 [facility] Connect 12/24/23 03/11/24 Cyril Morales [address] [place] [address] Nurse Practitioner 02/27/24 documented as of this encounter Additional Source Comments The information contained in this document represents components of the legal health record. It is not the complete legal health record.[facility]
--- OUTSIDE RECORDS SUMMARY | 2025-01-07 22:03 | XMS_ITS | Encounter Summary ---
Author Organization [facility] Address [address] [employer] [facility] [address] [place] [address] Phone Care Team Providers Care Child Welfare Counselor Name Role Phone Artie Meehan MD Primary Care Provider [phone] Artie Meehan MD Unavailable [phone] Rina Swenson MD Unavailable Laura Mock MD, DMD Primary Car e Provider Laura Mock MD, DMD Unavailable Laura Mock MD, DMD Unavailable Jakob Bob MD Unavailable Jose Crzu MD Unavailable Laura Mock MD, DMD Unavailable Pcp, Unknown Primary Care Provider UnavailLaura Ascenico MD, DMD Primary Car e Provider Pcp, Unknown Primary Care Provider UnavailNicole Arguello MD Primary Care Provide r Laura Mock MD, DMD Primary Car e Provider Encounter Details Date Type Department Care Team (Late st Contact Info) Description 05/23/2018 Transcribe Orders [facility] Main [address] [place] [address] Artie Meehan MD [address] [place] [address] [place] [address] 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 Social History [...] Upcoming Encounters Date Type Department Care Team ([facility] st Contact Info) Description 01/31/2025 1:00 PM EST Office Visit [facility] Cardiovascular Medicine 32 [facility], 5th Floor, [address] [place] [address] Karena Betancur MD [address] [address] [email or web address] 03/08/2025 9:30 AM EST Pre-Admission Testing [facility] 45 [facility] 2nd [place] [address] Irineo Ruff MD 75 [place] [address] [email or web address] 03/15/2025 Procedure Pass [facility] Endoscopy Department [address] [place] [address] 03/15/2025 7:30 AM EST Hospital Encounter [facility] Endoscopy Department [address] [place] [address] Irineo uRff MD 75 [facility] [place] [address] [email or web address] 03/15/2025 7:30 AM EST - 03/15/2025 8:15 AM EST Surgery [facility] Endoscopy Department [address] [place] [address] Irineo Ruff MD [address] [place] [address] [place] [address] [email or web address] COLONOSCOPY Scheduled Procedures Name Priority Associated Diagnoses Date/Ti me COLONOSCOPY Abnormal colonoscopy 03/15/2025 7:30 AM EST documented as of this encounter Procedures Procedure Name Priority Date/Time Associated Diagnosis Comments PT-INR STAT 05/23/2018 11:36 AM EDT 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 documented in this encounter Results * (ABNORMAL) PT-INR (05/23/2018 11:36 AM EDT) PT 14.8(H) 10.2 - 12.9 sec [facility] INR 1.3(H) 0.9 - 1.1 [facility] Comment:Therapeutic range fo r oral Vitamin K antagonists: 2.0-3.5 Blood 05/23/2018 11:3 6 AM EDT 05/23/2018 11:39 AM EDT Artie Meehan MD LAB BLOOD BKR ORDERABLES Final Result Performing Organization Address City/State/[facility] Co de Phone Number [address] [address] documented in this encounter Visit Diagnoses Diagnosis 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 Abnormal colonoscopy documented in this encounter Additional Health Concerns Infection Onset Date Last Indicated Resolved Time CoV-Presumed 03/23/2022 03/23/2022 04/13/2022 1:23 AM EST CoV-Risk 11/12/2023 11/12/2023 11/12/2023 5:12 PM EDT COVID-19 11/12/2023 11/12/2023 12/03/2023 1:21 AM EDT documented as of this encounter Care Teams Child Welfare Counselor Relationship Specialty Start Date End Date Artie Meehan MD [address] [place] [address] [place] [address] PCP - General Internal Medicine 10/26/17 06/03/21 Laura Mock MD, DMD 1 [facility] [address] [place] [address] [email or web address] PCP - General Internal Medicine 06/04/21 11/11/23 Pcp, Unknown PCP - General 11/12/23 11/16/23 Laura Mock MD, DMD [address] [address] [email or web address] PCP - General Internal Medicine 11/17/23 12/28/23 Pcp, Unknown PCP - General 02/28/24 03/04/24 Nicole Newell MD [address] [place] [address] PCP - General 03/05/24 05/17/24 Laura Mock MD, DMD [address] [address] [email or web address] PCP - General Internal Medicine 05/18/24 Artie Meehan MD [address] [place] [address] [place] [address] Internal Medicine 10/26/17 04/23/22 Rina Swenson MD [address] [place] [address] [place] [address] Psychiatry 07/09/17 Laura Mock MD, DMD [address] [address] [email or web address] du Partners Attributed Provider 09/01/21 07/03/23 Laura Mock MD, DMD [address] [address] [email or web address] du Insurance Assigned Provider 05/31/23 03/01/24 Jakob Bob MD [address] [place] [address] [email or web address] Cardiology 08/22/23 Jose Cruz MD [address] [place] [address] Cardiology 08/22/23 Laura Mock MD, DMD [address] [address] [email or web address] du Partners Attributed Provider 09/01/21 07/03/23 [facility] [place] [facility] [phone]. Consulting Provider 08/22/23 [facility] Connect 12/24/23 03/11/24 Cyril Morales [address] [place] [phone] Nurse Practitioner 02/27/24 documented as of this encounter Additional Source Comments The information contained in this document represents components of the legal health record. It is not the complete legal health record.[facility]
--- OUTSIDE RECORDS SUMMARY | 2025-01-07 22:04 | XMS_ITS | Encounter Summary ---
Author Organization [facility] Address [address] [employer] [facility] [address] [place] [address] Phone Care Team Providers Care Hand Grinder Name Role Phone Artie Meehan MD Primary Care Provider [phone] Artie Meehan MD Unavailable Rina Swenson MD Unavailable Laura Mock MD, DMD Primary Car e Provider Laura Mock MD, DMD Unavailable Laura Mock MD, DMD Unavailable Jakob Bob MD Unavailable [phone] Jose Cruz MD Unavailable Laura Mock MD, DMD Unavailable Pcp, Unknown Primary Care Provider UnavailLaura Ascencio MD, DMD Primary Car e Provider Pcp, Unknown Primary Care Provider UnavailNicole Arguello MD Primary Care Provide r Laura Mock MD, DMD Primary Car e Provider Encounter Details Date Type Department Care Team (Late st Contact Info) Description 01/06/2018 Procedure Pass [facility] 75 [place] [address] Social History Tobacco Use Types Packs/Day Years [...] [facility] Cardiovascular Medicine 32 [facility], 5th Floor, [address] [place] [address] Karena Betancur MD [address] [address] [email or web address] 03/08/2025 9:30 AM EST [facility] 45 [facility] 2nd [place] [address] Irineo Ruff MD [address] [place] [address] [email or web address] 03/15/2025 Procedure Pass [facility] Endoscopy Department [address] [place] [address] 03/15/2025 7:30 AM EST Hospital Encounter [facility] Endoscopy Department [address] [place] [address] Irineo Ruff MD [address] [place] [address] [email or web address] 03/15/2025 7:30 AM EST - 03/15/2025 8:15 AM EST Surgery [facility] Endoscopy Department [address] [place] [address] Irineo Ruff MD [address] [place] [address] [place] [address] [email or web address] COLONOSCOPY Scheduled Procedures Name Priority [...] as of this encounter Care Teams Hand Grinder Relationship Specialty Start Date End Date Artie Meehan MD [address] [place] [address] [address] PCP - General Internal Medicine 10/26/17 06/03/21 Laura Mock MD, DMD [address] [address] [email or web address] PCP - General Internal Medicine 06/04/21 11/11/23 Pcp, Unknown PCP - General 11/12/23 11/16/23 Laura Mock MD, DMD [address] [address] [email or web address] PCP - General Internal Medicine 11/17/23 12/28/23 Pcp, Unknown PCP - General 02/28/24 03/04/24 Nicole Newell MD [address] [place] [address] PCP - General 03/05/24 05/17/24 Laura Mock MD, DMD [address] [address] [email or web address] PCP - General Internal Medicine 05/18/24 Artie Meehan MD [address] [place] [address] Dr [address] [place] [address] Internal Medicine 10/26/17 04/23/22 Rina Swenson MD [address] [place] [address] Dr [address] [place] [address] Psychiatry 07/09/17 Laura Mock MD, DMD [address] [address] [email or web address] Partners Attributed Provider 09/01/21 07/03/23 Laura Mock MD, DMD [address] [address] [email or web address] du Insurance Assigned Provider 05/31/23 03/01/24 Jakob Bob MD [address] [place] [address] [address] [place] [address] [email or web address] Cardiology 08/22/23 Jose Cruz MD [address] [place] [address], [address] [place] [address] Cardiology 08/22/23 Laura Mock MD, DMD 1 [facility] [address] [place] [address] [email or web address] Partners Attributed Provider 09/01/21 07/03/23 [facility] [phone]. Consulting Provider 08/22/23 [facility] Connect 12/24/23 03/11/24 Cyril Morales [address] [place] [phone] Nurse Practitioner 02/27/24 documented as of this encounter Additional Source Comments The information contained in this document represents components of the legal health record. It is not the complete legal health record.[facility]
--- OUTSIDE RECORDS SUMMARY | 2025-01-07 22:04 | XMS_ITS | Encounter Summary ---
Author Organization [facility] Address [address] [employer] [facility] [address] [place] [address] Phone Care Team Providers Care Arterial Embalmer Name Role Phone Artie Meehan MD Primary Care Provider [phone] Artie Meehan MD Unavailable [phone] Rina Swenson MD Unavailable Laura Mock MD, DMD Primary Car e Provider Laura Mock MD, DMD Unavailable aLura Mock MD, DMD Unavailable Jakob Bob MD Unavailable Jose Cruz MD Unavailable [phone] Laura Mock MD, DMD Unavailable Pcp, Unknown [...] Expiration Date Visits Re quested Visits Authorized [id number] Closed 01/06/2018 01/06/2019 1 1 Encounter Details Date Type Department Care Team (Late st Contact Info) Description 01/06/2018 Transcribe Orders [facility] 75 [place] [address] Shira Mann [address] [place] [address] [email or web address] Social History Tobacco Use Types Packs/Day Years [...] Description 01/31/2025 1:00 PM EST Office Visit [facility] Cardiovascular Medicine 32 [facility], 5th Floor, [address] [place] [address] Karena Betancur MD 55 [facility] [address] [place] [address] [email or web address] 03/08/2025 9:30 AM EST Pre-Admission Testing [facility] 45 [facility] 2nd [place] [address] Irineo Ruff MD 75 [facility] [place] [address] [email or web address] 03/15/2025 Procedure Pass [facility] Endoscopy Department [address] [place] [address] 03/15/2025 7:30 AM EST Hospital Encounter [facility] Endoscopy Department [address] [place] [address] Irineo Ruff MD [address] [place] [address] [place] [address] [email or web address] 03/15/2025 7:30 AM EST - 03/15/2025 8:15 AM EST Surgery [facility] Endoscopy Department [address] [place] [address] Irineo Ruff MD [address] [place] [address] [email or web address] COLONOSCOPY Scheduled Procedures Name Priority Associated Diagnoses Date/Ti me COLONOSCOPY Abnormal colonoscopy 03/15/2025 7:30 AM EST documented as of this encounter Results * MRI Lower Extremity Outside (No Interpretation) (01/06/2018 11:46 AM EST) [facility]ative [facility] 01/06[facility]2018 11:46 AM EST [...] documented as of this encounter Care Teams Arterial Embalmer Relationship Specialty Start Date End Date Artie Meehan MD [address] [place] [address] [place] [address] PCP - General Internal Medicine 10/26/17 06/03/21 Laura Mock MD, DMD 1 [facility] [address] [place] [address] [email or web address] PCP - General Internal Medicine 06/04/21 11/11/23 Pcp, Unknown PCP - General 11/12/23 11/16/23 Laura Mock MD, DMD [address] [address] [email or web address] PCP - General Internal Medicine 11/17/23 12/28/23 Pcp, Unknown PCP - General 02/28/24 03/04/24 Nicole Newell MD [address] [place] [address] PCP - General 03/05/24 05/17/24 Laura Mock MD, DMD [address] [address] [email or web address] PCP - General Internal Medicine 05/18/24 Artie Meehan MD [address] [place] [address] [place] [address] Internal Medicine 10/26/17 04/23/22 Rina Swenson MD [address] [place] [address] [place] [address] Psychiatry 07/09/17 Laura Mock MD, DMD [address] [address] [email or web address] Partners Attributed Provider 09/01/21 07/03/23 Laura Mock MD, DMD [address] [address] [email or web address]. du Insurance Assigned Provider 05/31/23 03/01/24 Jakob Bob MD [address] [place] [address] [email or web address] Cardiology 08/22/23 Jose Cruz MD [address] [place] [address] [email or web address] Cardiology 08/22/23 Laura Mock MD, DMD [address] [address] [email or web address]. [email or web address] Partners Attributed Provider 09/01/21 07/03/23 [facility] [phone]. Consulting Provider 08/22/23 [facility] Connect 12/24/23 03/11/24 Cyril Morales [address] [place] [phone] Nurse Practitioner 02/27/24 documented as of this encounter Additional Source Comments The information contained in this document represents components of the legal health record. It is not the complete legal health record.[facility]
--- OUTSIDE RECORDS SUMMARY | 2025-01-07 22:04 | XMS_ITS | Encounter Summary ---
Author Organization [facility] Address [address] [employer] [facility] [address] [place] [address] Phone Care Team Providers Care Vocational Services Specialist Name Role Phone Artie Meehan MD Primary Care Provider [phone] Artie Meehan MD Unavailable Rina Swenson MD Unavailable Laura Mock MD, DMD Primary Car e Provider Laura Mock MD, DMD Unavailable Laura Mock MD, DMD Unavailable Jakob Bob MD Unavailable [phone] Jose Cruz MD Unavailable [phone] Laura Mock MD, DMD Unavailable Pcp, Unknown Primary Care Provider UnavailLaura Ascencio MD, DMD Primary Car e Provider Pcp, Unknown Primary Care Provider UnavailNicole Arguello MD Primary Care Provide r Laura Mock MD, DMD Primary Car e Provider Encounter Details Date Type Department Care Team (Late st Contact Info) Description 12/24/2017 Procedure Pass [facility] 75 [place] [address] Social History Tobacco Use Types Packs/Day Years [...] Description 01/31/2025 1:00 PM EST Office Visit [facility] Cardiovascular Medicine 32 [facility], 5th Floor, [address] [place] [address] Karena Betancur MD [address] [address] [email or web address] 03/08/2025 9:30 AM EST [facility] 45 [facility] 2nd [place] [address] Irineo Ruff MD 75 [facility] [place] [address] [email or web address] 03/15/2025 Procedure Pass [facility] Endoscopy Department [address] [place] [address] 03/15/2025 7:30 AM EST Hospital Encounter [facility] Endoscopy Department [address] [place] [address] Irineo Ruff MD [address] [place] [address] [place] [address] [email or web address] 03/15/2025 7:30 AM EST - 03/15/2025 8:15 AM EST Surgery [facility] Endoscopy Department [address] [place] [address] Irineo Ruff MD [address] [place] [address] [email or web address] COLONOSCOPY Scheduled Procedures Name Priority Associated Diagnoses [...] documented as of this encounter Care Teams Vocational Services Specialist Relationship Specialty Start Date End Date Artie Meehan MD [address] [place] [address] [place] [address] PCP - General Internal Medicine 10/26/17 06/03/21 Laura Mock MD, DMD 1 [facility] [address] [place] [address] [email or web address] PCP - General Internal Medicine 06/04/21 11/11/23 Pcp, Unknown PCP - General 11/12/23 11/16/23 Laura Mock MD, DMD 1 [facility] [address] [place] [address] [email or web address] PCP - General Internal Medicine 11/17/23 12/28/23 Pcp, Unknown PCP - General 02/28/24 03/04/24 [place] [address] [address] PCP - General 03/05/24 05/17/24 Laura Mock MD, DMD 1 [facility] [address] [place] [address] [email or web address] PCP - General Internal Medicine 05/18/24 Artie Meehan MD [address] [place] [address] Dr [address] [place] [address] Internal Medicine 10/26/17 04/23/22 Rina Swenson MD [address] [place] [address] Dr [address] [place] [address] Psychiatry 07/09/17 Laura Mock MD, DMD [address] [address] [email or web address] Partners Attributed Provider 09/01/21 07/03/23 Laura Mock MD, DMD [address] [address] [email or web address] Insurance Assigned Provider 05/31/23 03/01/24 Jakob Bob MD [address] [place] [address] [place] [address] [email or web address] Cardiology 08/22/23 Jose Cruz MD 22 [facility], [address] [place] [address] Cardiology 08/22/23 Laura Mock MD, DMD [address] [place] [address] [address] [place] [address] [email or web address] [employer] Attributed Provider 09/01/21 07/03/23 [facility] [phone]. Consulting Provider 08/22/23 CAROLANN GREWAL Connect 12/24/23 03/11/24 Cyril Morales [address] [place] [address] Nurse Practitioner 02/27/24 documented as of this encounter Additional Source Comments The information contained in this document represents components of the legal health record. It is not the complete legal health record.[facility]
== END 2025-01-07 15:23 | disposition home or self-care (01) ==
LOC: HO.ACS 14:38
PROVIDERS: PCP Internal Medicine; Visit Provider Internal Medicine Medical Oncology
DX: Z79.01 Long term (current) use of anticoagulants (principal)

== ENCOUNTER → 2025-01-07 14:38 | Outpatient (BNVA) | payer MEDICARE, SELFPAY | PROVIDERS: PCP Internal Medicine; Visit Provider Internal Medicine Medical Oncology | DX: I10 Essential (primary) hypertension (principal); E78.5 Hyperlipidemia, unspecified; R06.09 Other forms of dyspnea; K86.2 Cyst of pancreas; M81.0 Age-related osteoporosis without current pathological fracture; E55.9 Vitamin D deficiency, unspecified; R26.81 Unsteadiness on feet; H91.90 Unspecified hearing loss, unspecified ear; L57.0 Actinic keratosis; F41.9 Anxiety disorder, unspecified; F32.9 Major depressive disorder, single episode, unspecified; M54.2 Cervicalgia; Z79.899 Other long term (current) drug therapy; Z13.31 Encounter for screening for depression; Z13.39 Encounter for screening examination for other mental health and behavioral disorders; Z95.2 Presence of prosthetic heart valve; Z51.81 Encounter for therapeutic drug level monitoring; Z79.01 Long term (current) use of anticoagulants | CPT/HCPCS: 85610; 96127; 99211; 99212 ==

== ENCOUNTER 2025-01-07 15:33 | Outpatient (AMB) | payer MEDICARE, SELFPAY ==
[2025-01-07 15:45] VITALS: BP 140/82; PULSE 70; O2SAT 97; BMI 21.0
--- NOTE | 2025-01-07 15:45 | A.OFFPC_ITS ---
Vital Signs 01/07/25 15:45 Height 5 ft 1 in Weight 111 lb BMI 21.0 BP 140/82 H Blood Pressure Location Lt brachial Position Sitting Pulse 70 Pulse Source Pulse Oximeter Pulse Oximetry (%) 97 Oxygen Delivery Method Room Air Intake Visit Reasons: Neck pain Roller Checker Required: No Accompanied by: Self / Same As Patient Allergies latex Allergy (Intermediate, Verified 01/07/25 16:06) Rash Medication List - Last Reconciled 01/07/25 by Artie Meehan MD acetaminophen 500 mg PO Q6H PRN amoxicillin 2,000 mg (4 x 500 mg) PO ONCE 1 day ascorbate calcium (vitamin C) 1 g PO DAILY bupropion HCl XL (Wellbutrin XL) 300 mg PO QAM clonazepam 0.5 mg PO BID PRN cyanocobalamin (vitamin B-12) PO folic acid 0.8 mg PO DAILY lisinopril 10 mg PO BID [multivitamin PO] [VIT D 3 K 2 PO] warfarin See Protocol 4 mg daily per INR per Anticoagulation Services 30 days Tobacco use date assessed: 01/07/25 Fall risk assessment: No Falls in past year Last assessed Fall Risk: 01/07/25 Dental Screening Dental Screen Date: 01/07/25 Did you have a dental visit in the last 12 months?: Yes Did you have a dental problem in the last 6 months where you did not have access to dental care?: No Was dental information given to patient?: Patient has dentist HPI Neck pain HPI Details Patient comes in today for her follow up visit She again presents with multiple complaints/requests today States that she is currently experiencing increased pain in her neck especially when she is lying down in bed at night She denies any recent injury or trauma to her neck or cervical spine States that she used to see Dr. Anitha Fry in [place] for her dermatologic issues - she supposedly had some recurrent flaking skin issues in the past that was diagnosed by Dr. Fry as precancerous and due to sun damage States that she had more recently had similar issues that turned out to be eczema instead (diagnosed by a specialist at [facility] out in [place] when she was out there visiting family) so she is wondering if there could be some misdiagnosis here and would like to see if she should see another store team member perhaps for a second opinion States that her colonoscopy was recently rescheduled from later this month (December) to March 2025 in [place] - as she is on Coumadin for long-term anticoagulation, she will need to be on a Lovenox bridge then when she stops taking her Coumadin prior to her procedure (her last colonoscopy was performed more than 10 years ago when she was still residing in [place]) She is currently also requesting for a referral for hearing evaluation Adds that she was misdiagnosed with lung cancer in the past and had a follow-up scan done about a year ago which incidentally revealed severe arterial calcification, although her lungs appeared improved from before States that her blood pressure is presently elevated as she forgot to take her blood pressure medication this morning She currently denies any headaches or dizziness Denies any chest pains, no increased SOB No nausea/vomiting, no abdominal pain No change in bowel habits noted She has no follow up labs done recently PENDING SALE TO [facility] Medical History Current use of anticoagulant therapy HTN (hypertension) Rash Osteoporosis Cataracts, bilateral Depression Anxiety Dyslipidemia Pancreatic cyst Benign essential hypertension Surgical History Aortic valve replaced History of cataract surgery Hx of prosthetic aortic valve replacement History of aortic valve repair History of bronchoscopy Hx of breast biopsy Family History Father CVD (cardiovascular disease) Mother Stroke Sister Colon cancer Brother Bladder cancer Maternal Grandmother No problems noted. Paternal Grandmother Stroke Family/Other Heroin addiction Other Mental health problem Substance abuse Social History Housing: House Alcohol intake: never Patient Tobacco Use Status: Never used Tobacco e-Cigarette/Vaping Use: Never Used Second Hand Smoke Exposure: Yes service: No Current occupational status: retired Cognitive needs: No Hearing needs: No Vision needs: No Questionnaire PHQ-9 Over the last 2 weeks, how often have you been bothered by any of the following problems? 1. Little interest or pleasure in doing things: not at all 2. Feeling down, depressed, or hopeless: not at all 3. Trouble falling or staying asleep, or sleeping too much: not at all 4. Feeling tired or having little energy: not at all 5. Poor appetite or overeating: not at all 6. Feeling bad about yourself - or that you are a failure or have let yourself or your family down: not at all 7. Trouble concentrating on things, such as reading the newspaper or watching television: not at all 8. Moving or speaking so slowly that other people could have noticed. Or the opposite - being so fidgety or restless that you have been moving around a lot more than usual: not at all 9. Thoughts that you would be better off or of hurting yourself in some way: not at all Total score: 0 Depression Screening Interpretation: Negative Depression Screening Done: Yes 58524 - PHQ-9 Billing: Yes Source: Developed by Drs. Charly Bae, Barb Stern, Alfredo Kimball and colleagues, with an educational rangel from [employer]. Thrive Questionnaire Date Thrive assessed: 01/07/25 I am a: Patient What is your living situation today?: I have a steady place to live Within the past 12 months, did the food you bought not last and you didn't have the money to get more?: Never true Within the past 12 months, did you worry whether your food would run out before you got money to buy more?: Never true Do you have trouble paying for medicines?: No Do you have trouble getting transportation to medical appointments?: No Do you have trouble paying your heating and electricity bill?: No Do you have trouble taking care of your child, family member or friend?: I choose not to answer this question Do you have trouble with day-to-day activities such as bathing, preparing meals, shopping, managing finances, etc.?: No Are you currently unemployed and looking for a job?: No Are you interested in more education?: Yes Please select the resources that you would like help with: None Currently or been in a relationship where the following occur: No concerns reported THRIVE Score: 0 AUDIT C Alcohol Use Questionnaire (AUDIT-C) 1. How often do you have a drink containing alcohol?: Never 3. How often do you have six or more drinks on one occasion?: Never Total Score: 0 Score Reviewed/Action Taken: Yes ADELAIDA-7 AMB Questionnaire ADELAIDA-7 Date ADELAIDA - 7 assessed: 01/07/25 Feeling nervous, anxious, or on edge: 0 = Not at all Not being able to stop or control worryin = Not at all Worrying too much about different things: 0 = Not at all Trouble relaxin = Not at all Being so restless that it is hard to sit still: 0 = Not at all Becoming easily annoyed or irritable: 0 = Not at all Feeling afraid as if something awful might happen: 0 = Not at all Total ADELAIDA-7 score (0-4 normal; 5-9 mild; 10-14 moderate; 15-21 severe): 0 Source: Developed by Drs. Charly Bae, Barb Stern, Alfredo Kimball and colleagues, with an educational arngel from [employer]. Review of Systems Const Denies chills, Reports fatigue, Denies fever(s) and Denies headache(s) ENT Denies dysphagia, Denies dizziness, Denies otalgia, Denies headache(s), Reports neck pain (mostly when she is lying down - see HPI), Denies odynophagia and Denies sore throat Card Denies chest pain, Denies palpitations and Reports dyspnea on exertion (mild) Resp Denies chest congestion, Denies cough and Reports dyspnea on exertion (mild) GI Denies abdominal pain, Denies constipation, Denies dysphagia, Denies heartburn, Denies diarrhea, Denies nausea, Denies odynophagia and Denies vomiting Denies difficulty voiding, Denies nocturia, Denies dysuria and Denies urinary urgency Musc Reports abnormal gait (unsteady gait), Reports back pain (on and off, over the lower back) and Reports neck pain (mostly when she is lying down - see HPI) Skin/Breast Details: (+) scattered scaling skin lesions Denies rash Neuro Reports abnormal gait (unsteady gait), Denies dizziness and Denies headache(s) Psych Reports anxiety and Reports depression (is on Rx) Endo Reports fatigue and Denies palpitations Physical exam (Primary Care) Vital Signs: Last Vital Signs Pulse 70 01/07/25 15:45 BP 140/82 H 01/07/25 15:45 Pulse Ox 97 01/07/25 15:45 Oxygen Delivery Method Room Air 01/07/25 15:45 BMI result Body Mass Index 21.0 Tobacco/Smoking Status: Tobacco use Status Tobacco use date assessed 01/07/25 01/07/25 15:49 Patient Tobacco Use Status Never used Tobacco 01/07/25 15:49 e-Cigarette/Vaping Use Never Used 01/07/25 15:49 PHQ-9: PHQ-9 Score PHQ-9: Total score 0 01/07/25 16:34 Depression Screening Interpretation: Negative Thrive Assessment: Date of Thrive Assessment Date Thrive assessed 01/07/25 01/07/25 15:49 Currently or been in a relationship where the following occur: No concerns reported Const General: no acute distress and alert HENMT Ears: TM's normal bilaterally and EAC's normal Throat: Yes posterior oropharynx normal and Yes tonsils normal (no TP congestion noted) Neck Neck: Yes supple and No lymphadenopathy Thyroid: Thyroid normal Resp Auscultation: clear to auscultation bilaterally, no rales and no wheezes Cardio Rate: regular rate Rhythm: regular rhythm Heart sounds: no murmurs GI Palpation (GI): Soft to palpation and nontender Auscultation: normal bowel sounds General: Yes no CVA tenderness Back/Spine/Pelvis Back: no CVA tenderness Thoracic/Lumbar Spine: lumbar spinal tenderness Skin Other: (+) few scattered scaling (some keratotic) lesions Rashes: no rashes Extrem General: Yes no clubbing, cyanosis or edema Coding Level of Care Code Est Pt Level 4 (65527) Diagnoses Benign essential hypertension I10 Dyslipidemia E78.5 Hx of prosthetic aortic valve replacement Z95.2 Exertional dyspnea R06.09 Pancreatic cyst K86.2 Age-related osteoporosis without current pathological fracture M81.0 Osteoporosis type: age-related Presence of current pathological fracture: without current pathological fracture Vitamin D deficiency E55.9 Unsteady gait R26.81 Hearing loss, unspecified hearing loss type, unspecified laterality H91.90 Hearing loss type: unspecified Laterality: unspecified laterality Keratotic lesion L57.0 Anxiety F41.9 Depression, unspecified depression type F32.9 Depression Type: unspecified Additional Codes PHQ-9 - 25796 - PHQ-9 Billing: Yes ([id number]) Assessment & Plan Assessment & Plan (1) Benign essential hypertension: Code(s): I10 - Essential (primary) hypertension Category: Medical Plan: Reinforced low sodium diet - goal is systolic BP of at least 130 mm to 140 mm or less Continue Lisinopril 10 mg BID (2) Dyslipidemia: Code(s): E78.5 - Hyperlipidemia, unspecified Category: Medical Plan: Reinforced low cholesterol diet Will recheck her labs and fasting lipids as scheduled next month for follow up (3) Hx of prosthetic aortic valve replacement: Code(s): Z95.2 - Presence of prosthetic heart valve Category: Surgical Plan: Continue Coumadin 2.5 mg 1 to 2 tablets daily as instructed, with dose adjustment per PT/INR results (4) Exertional dyspnea: Code(s): R06.09 - Other forms of dyspnea Category: Medical Plan: Her previous echocardiogram done in 2020 revealed (+) mild MR Repeat echocardiogram done back in June 2024 revealed normal LV ejection fraction at 55-60% with impaired relaxation filling pattern Her bioprosthetic valve appears to be functioning normally with mildly increased gradient of 16 mm Hg. There is moderate mitral annular calcification with normal Dopplers; normal RV systolic pressure and no gross pericardial effusion is seen (5) Pancreatic cyst: Comment: MRCP done at [facility] on 05/22/2018 showed (+) multiple chronic pancreatic and peripancreatic cysts that do not appear to be malignant and recommended repeat imaging in a year for follow up Patient reportedly had a follow up CT done in February 2019 which reportedly came back with benign results Code(s): K86.2 - Cyst of pancreas Category: Medical Plan: Follow up with GI as scheduled for continuing surveillance (6) Osteoporosis: Code(s): M81.0 - Age-related osteoporosis without current pathological fracture Category: Medical Qualifiers: Osteoporosis type: age-related Presence of current pathological fracture: without current pathological fracture Qualified Code(s): M81.0 - Age- related osteoporosis without current pathological fracture Plan: Her last BMD done at [facility] on 01/24/2021 revealed (+) stable lumbar spine and bilateral hip osteoporosis Reinforced fall precautions, especially with her unsteady gait She is currently not on any Vitamin D or Calcium supplements Will now have her go and get a repeat BMD for follow up (7) Vitamin D deficiency: Code(s): E55.9 - Vitamin D deficiency, unspecified Category: Medical Plan: Will check patient's serum Vitamin D level next month for follow up (8) Unsteady gait: Code(s): R26.81 - Unsteadiness on feet Category: Medical Plan: Improved with physical therapy and will refer again to PT as needed (9) Hearing impairment: Code(s): H91.90 - Unspecified hearing loss, unspecified ear Category: Medical Qualifiers: Hearing loss type: unspecified Laterality: unspecified laterality Qualified Code(s): H91.90 - Unspecified hearing loss, unspecified ear Plan: Per request, will refer her for hearing evaluation (10) Keratotic lesion: Code(s): L57.0 - Actinic keratosis Category: Medical Plan: Have advised patient that her current skin lesions her most likely actinic keratosis and does not appear to be eczematous lesions Advised patient that currently, dermatologists in [facility] booking appointments out months and even up to a year or more in advance and [facility] has recently informed us that they are no longer taking any new patients at this time Have advised patient that it would likely be much easier for her to get into see Dr. Fry in [place] as she is already an established patient there Patient states that she will try to reach Dr. Fry's office in [facility] to schedule a follow-up appointment with her (11) Anxiety: Code(s): F41.9 - Anxiety disorder, unspecified Category: Medical Plan: Continue Bupropion XL 300 mg QD and Clonazepam 0.5 mg BID PRN Follow up with psychiatry as scheduled (12) Depression: Code(s): F32.9 - Major depressive disorder, single episode, unspecified Category: Medical Qualifiers: Depression Type: unspecified Qualified Code(s): F32.9 - Major depressive disorder, single episode, unspecified Plan: Continue Bupropion XL 300 mg Q AM Follow up with psychiatry (Dr. Rina Swenson) as scheduled Plan Follow up as scheduled next month Patient is reminded to get her previously ordered labs done before she returns for her appointment next month Orders: Orders Comprehensive [place]. Panel Fast 02/02/25 E78.00 - Pure hypercholesterolemia, unspecified UA CC w/rflx Micro + Cult 02/02/25 R30.0 - Dysuria XR DEXA axial skeleton 01/07/25 M81.0 - Age-related osteoporosis without current pathological fracture, Z78.0 - Asymptomatic menopausal state Complete Blood Count Auto Diff 02/02/25 D64.9 - Anemia, unspecified Lipid Panel 02/02/25 E78.00 - Pure hypercholesterolemia, unspecified TSH reflex Free T4 02/02/25 E78.00 - Pure hypercholesterolemia, unspecified Vitamin D 25-OH Total 02/02/25 E55.9 - Vitamin D deficiency, unspecified Vitamin B12 and Folate 02/02/25 E53.8 - Deficiency of other specified B group vitamins Referrals Speech and Hearing Referral H91.90 - Unspecified hearing loss, unspecified ear
== END 2025-01-07 16:35 | disposition home or self-care (01) ==
LOC: HO.HMCH 15:33
PROVIDERS: PCP Internal Medicine; Visit Provider Internal Medicine
DX: I10 Essential (primary) hypertension (principal); E78.5 Hyperlipidemia, unspecified; Z95.2 Presence of prosthetic heart valve; R06.09 Other forms of dyspnea; K86.2 Cyst of pancreas; M81.0 Age-related osteoporosis without current pathological fracture; E55.9 Vitamin D deficiency, unspecified; R26.81 Unsteadiness on feet; H91.90 Unspecified hearing loss, unspecified ear; L57.0 Actinic keratosis; F41.9 Anxiety disorder, unspecified; F32.9 Major depressive disorder, single episode, unspecified

== ENCOUNTER 2025-01-17 14:27 | Outpatient (AMB) | payer MEDICARE, SELFPAY ==
--- NOTE | 2025-01-17 14:45 | MHC.OFFVISCO ---
Intake Intake Visit Reasons: Anticoagulation Allergies latex Allergy (Intermediate, Verified 01/17/25 14:28) Rash Medication List - Last Reconciled 01/17/25 by Marjorie Suazo RN acetaminophen 500 mg PO Q6H PRN amoxicillin 2,000 mg (4 x 500 mg) PO ONCE 1 day ascorbate calcium (vitamin C) 1 g PO DAILY bupropion HCl XL (Wellbutrin XL) 300 mg PO QAM clonazepam 0.5 mg PO BID PRN cyanocobalamin (vitamin B-12) PO folic acid 0.8 mg PO DAILY lisinopril 10 mg PO BID [multivitamin PO] [VIT D 3 K 2 PO] warfarin See Protocol 4 mg daily per INR per Anticoagulation Services 30 days Nursing Note INR: 2.6 in therapeutic range Medications and supplements reviewed No changes in health, diet, medications, or supplements, Denies any signs and symptoms of bleeding or bruising or clotting. Bleeding, bruising, clotting discussed Nutritional guidance given - KEEP UP WEEKLY GREENS Dose: 4MG DAILY F/U INR: 1 1/2 WEEKS 01/28/2025 Patient verbalizes understanding of instructions given Anti-Coag Initial Assessment Social Hx Patient Tobacco Use Status: Never used Tobacco alcohol intake: never Alcohol intake frequency: does not drink Coding Level of Care Code Est Patient Level 1 Diagnoses Current use of anticoagulant therapy Z79.01 Results AMB INR Fingerstick AMB INR Fingerstick 2.6 Last Edit by Marjorie Suazo RN on 01/17/25 14:37 manual entry Assessment & Plan Assessment & Plan (1) Current use of anticoagulant therapy: Code(s): Z79.01 - alf (current) use of 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
--- OUTSIDE RECORDS SUMMARY | 2025-01-17 19:21 | XMS_ITS | Encounter Summary ---
Author Organization [facility] Address [address] [employer] [facility] [address] [place] [address] Phone Care Team Providers Care Nutrition Specialist Name Role Phone Artie Meehan MD Primary Care Provider [phone] Artie Meehan MD Unavailable Rina Swenson MD [...] Description 11/15/2020 Transcribe Orders Virtual Department 30 [place] [address] Artie Meehan MD [address] [place] [address] [place] [address] Asymptomatic menopausal state (Primary Dx); Age-related osteoporosis [...] [facility] 32 [facility], 5th Floor, [address] [place] [address] Karena Betancur MD [address] [address] [email or web address] 03/08/2025 9:30 AM EST Pre-Admission Testing [facility] 45 [facility] 2nd [place] [address] Irineo Ruff MD 75 [place] [address] [email or web address] 03/15/2025 Procedure Pass [facility] Endoscopy Department [address] [place] [address] 03/15/2025 7:30 AM EST Hospital Encounter [facility] Endoscopy Department [address] [place] [address] Irineo Ruff MD 75 [facility] [place] [address] [email or web address] 03/15/2025 7:30 AM EST - 03/15/2025 8:15 AM EST Surgery [facility] Endoscopy Department [address] [place] [address] Irineo Ruff MD [address] [place] [address], [place] [address] [email or web address] COLONOSCOPY Scheduled Procedures Name Priority [...] bone mineral density was calculated at 0.409 gm/qq5ntsb a T- score of -4 falling within [...] documented as of this encounter Care Teams Nutrition Specialist Relationship Specialty Start Date End Date Artie Meehan MD [address] [place] [address] [place] [address] PCP - General Internal Medicine 10/26/17 06/03/21 Laura Mock MD, DMD [address] [address] [email or web address] PCP - General Internal Medicine 06/04/21 11/11/23 Pcp, Unknown PCP - General 11/12/23 11/16/23 Laura Mock MD, DMD [address] [address] [email or web address] PCP - General Internal Medicine 11/17/23 12/28/23 Pcp, Unknown PCP - General 02/28/24 03/04/24 Nicole Newell MD [address] [place] [address] PCP - General 03/05/24 05/17/24 Laura Mock MD, DMD [address] [address] [email or web address] PCP - General Internal Medicine 05/18/24 Artie Meehan MD [address] [place] [address] [place] [address] Internal Medicine 10/26/17 04/23/22 Rina Swenson MD [address] [place] [address] [place] [address] Psychiatry 07/09/17 Laura Mock MD, DMD [address] [address] [email or web address] [employer] Attributed Provider 09/01/21 07/03/23 Laura Mock MD, DMD [address] [address] [email or web address] Insurance Assigned Provider 05/31/23 03/01/24 Jakob Bob MD [address] [place] [address] [email or web address] Cardiology 08/22/23 Jose Cruz MD [address] [place] [address] [email or web address] Cardiology 08/22/23 Laura Mock MD, DMD [address] [address] [email or web address] [employer] Attributed Provider 09/01/21 07/03/23 [place] [facility] [phone]. Consulting Provider 08/22/23 [facility] Connect 12/24/23 03/11/24 Cyril Morales [address] [place] [address] Nurse Practitioner 02/27/24 documented as of this encounter Additional Source Comments The information contained in this document represents components of the legal health record. It is not the complete legal health record.[facility]
--- OUTSIDE RECORDS SUMMARY | 2025-01-17 19:21 | XMS_ITS | Encounter Summary ---
Author Organization [facility] Address [address] [employer] [facility] [address] [place] [address] Phone Care Team Providers Care Behavioral Health Care Coordinator Name Role Phone Artie Meehan MD Primary Care Provider [phone] Artie Meehan MD Unavailable Rina Swenson MD Unavailable Laura Mock MD, DMD Primary Car e Provider Laura Mock MD, DMD Unavailable Laura Mock MD, DMD Unavailable Jakob Bob MD Unavailable [phone] Jose Cruz MD Unavailable Laura Mock MD, [...] Contact Info) Description 12/09/[address] [facility] Urology [address] [facility] ASB2-3 [place] [address] Maureen De Los [email or web address] Question regarding Symtoms (Former pt. of [...] Description 01/31/2025 1:00 PM EST Office Visit [facility] Cardiovascular Medicine 32 [facility], 5th Floor, [address] [place] [address] Karena Betancur MD [address] [address] [email or web address] 03/08/2025 9:30 AM EST [facility]-Admission Testing [facility] [address] [facility] 2nd [place] [address] Irineo Ruff MD [address] [place] [address] [place] [address] [email or web address] 03/15/[address] [facility] Endoscopy Department [address] [place] [address] 03/15/2025 7:30 AM EST Hospital Encounter [facility] Endoscopy Department [address] [place] [address] Irineo Ruff MD [address] [place] [address] [place] [address] [email or web address] 03/15/2025 7:30 AM EST - 03/15/2025 8:[address] [facility] Endoscopy Department [address] [place] [address] Irineo Ruff MD [address] [place] [address] [place] [address] [email or web address] COLONOSCOPY [...] documented as of this encounter Care Teams Behavioral Health Care Coordinator Relationship Specialty Start Date End Date Artie Meehan MD [address] [place] [address] [place] [address] PCP - General Internal Medicine 10/26/17 06/03/21 Laura Mock MD, DMD [address] [address] [email or web address] PCP - General Internal Medicine 06/04/21 11/11/23 Pcp, Unknown PCP - General 11/12/23 11/16/23 Laura Mock MD, DMD [address] [address] [email or web address] PCP - General Internal Medicine 11/17/23 12/28/23 Pcp, Unknown PCP - General 02/28/24 03/04/24 [place] [address] [address] PCP - General 03/05/24 05/17/24 Laura Mock MD, DMD [address] [address] [email or web address] so PCP - General Internal Medicine 05/18/24 Artie Meehan MD [address] [place] [address] [address] Internal Medicine 10/26/17 04/23/22 Rina Swenson MD [address] [place] [address] [address] Psychiatry 07/09/17 Laura Mock MD, DMD [address] [address] [email or web address] du Partners Attributed Provider 09/01/21 07/03/23 Laura Mock MD, DMD [address] [address] [email or web address] du Insurance Assigned Provider 05/31/23 03/01/24 Jakob Bob MD [address] [place] [address] [address] [place] [address] [email or web address] Cardiology 08/22/23 Jose Cruz MD 22 [facility], [address] [place] [address] [email or web address] Cardiology 08/22/23 Laura Mock MD, DMD 1 [facility] [address] [place] [address] [email or web address] Partners Attributed Provider 09/01/21 07/03/23 [place] [facility] [phone]. Consulting Provider 08/22/23 [facility] Connect 12/24/23 03/11/24 Cyril Morales [address] [place] [address] Nurse Practitioner 02/27/24 documented as of this encounter Additional Source Comments The information contained in this document represents components of the legal health record. It is not the complete legal health record.[facility]
--- OUTSIDE RECORDS SUMMARY | 2025-01-17 19:22 | XMS_ITS | Encounter Summary ---
Author Organization [facility] Address [facility] [employer] [address] [address] Phone Care Team Providers Care Hospitality Coordinator Name Role Phone Artie Meehan MD Unavailable Rina Swenson MD Unavailable [phone] Laura Mock MD, DMD Primary Car e Provider Laura Mock MD, DMD Unavailable Laura Mock MD, DMD Unavailable Jakob Bob MD Unavailable [phone] Jose Cruz MD Unavailable Laura Mock MD, [...] [facility] 32 [facility], 5th Floor, [address] [place] [address] Karena Betancur MD [address] [address] [email or web address] 03/08/2025 9:30 AM EST Pre-Admission Testing [facility] [address] [place] 2nd [place] [address] Irineo Ruff MD [address] [place] [address] [email or web address] 03/15/2025 Procedure Pass [facility] Endoscopy Department [address] [place] [address] 03/15/2025 7:30 AM EST Hospital Encounter [facility] Endoscopy Department [address] [place] [address] Irineo Ruff MD [address] [place] [address] [email or web address] 03/15/2025 7:30 AM EST - 03/15/2025 8:15 AM EST Surgery [facility] Endoscopy Department [address] [place] [address] Irineo Ruff MD [address] [place] [address] [email or web address] [email or web address] Scheduled Procedures Name [...] documented as of this encounter Care Teams Hospitality Coordinator Relationship Specialty Start Date End Date Laura Mock MD, DMD [address] [address] [email or web address] PCP - General Internal Medicine 06/04/21 11/11/23 Pcp, Unknown PCP - General 11/12/23 11/16/23 Laura Mock MD, DMD [address] [address] [email or web address] du PCP - General Internal Medicine 11/17/23 12/28/23 Pcp, Unknown PCP - General 02/28/24 03/04/24 Nicole Newell MD [address] [place] [address] PCP - General 03/05/24 05/17/24 Laura Mock MD, DMD [address] [place] [address] [email or web address] du PCP - General Internal Medicine 05/18/24 Artie Meehan MD [address] [place] [address] [place] [address] Internal Medicine 10/26/17 04/23/22 Rina Swenson MD [address] [place] [address] Dr Nichols [place] [address] Psychiatry 07/09/17 Laura Mock MD, DMD [address] [address] [email or web address] Partners Attributed Provider 09/01/21 07/03/23 Laura Mock MD, DMD [address] [address] [email or web address] du Insurance Assigned Provider 05/31/23 03/01/24 Jakob Bob MD [address] [place] [address] [email or web address] Cardiology 08/22/23 Jose Cruz MD [address] [place] [address], [facility] [address] [place] [address] Cardiology 08/22/23 Laura Mock MD, DMD [address] [address] [email or web address] [employer] Attributed Provider 09/01/21 07/03/23 [facility] [phone]. Consulting Provider 08/22/23 [facility] Connect 12/24/23 03/11/24 Cyril Morales [address] [place] [address] Nurse Practitioner 02/27/24 documented as of this encounter Additional Source Comments The information contained in this document represents components of the legal health record. It is not the complete legal health record.[facility]
--- OUTSIDE RECORDS SUMMARY | 2025-01-17 19:22 | XMS_ITS | Encounter Summary ---
Author Organization [facility] Address [facility] [employer] [facility] [address] [place] [address] Phone Care Team Providers Care Principal Developer Name Role Phone Artie Meehan MD Unavailable [...] st Contact Info) Description 10/19/2021 Anti-coag visit [facility] Anticoagulation Clinic [address] [place] [address] Melvin Stewart, [facility] [address] [place] [address] [email or web address] Social History Tobacco Use Types Packs/Day [...] [facility], 5th Floor, [address] [place] [address] Karena Betancur MD [address] [address] [email or web address] 03/08/2025 9:30 AM EST Pre-Admission Testing [facility] 45 [facility] 2nd [place] [address] Irineo Ruff MD 75 [place] [address] [email or web address] 03/15/2025 Procedure Pass [facility] Endoscopy Department [address] [place] [address] 03/15/2025 7:30 AM EST Hospital Encounter [facility] Endoscopy Department [address] [place] [address] Irineo Ruff MD 75 [facility] [place] [address] [email or web address] 03/15/2025 7:30 AM EST - 03/15/2025 8:15 AM EST Surgery [facility] Endoscopy Department [address] [place] [address] Irineo Ruff MD [address] [place] [address], [place] [address] [email or web address] COLONOSCOPY Scheduled Procedures Name Priority [...] as of this encounter Care Teams Principal Developer Relationship Specialty Start Date End Date Laura Mock MD, DMD [address] [address] [email or web address] PCP - General Internal Medicine 06/04/21 11/11/23 Pcp, Unknown PCP - General 11/12/23 11/16/23 Laura Mock MD, DMD [address] [address] [email or web address] PCP - General Internal Medicine 11/17/23 12/28/23 Pcp, Unknown PCP - General 02/28/24 03/04/24 Nicole Newell MD [address] [place] [address] PCP - General 03/05/24 05/17/24 Laura Mock MD, DMD [address] [address] [email or web address] PCP - General Internal Medicine 05/18/24 Artie Meehan MD [address] [place] [address] [place] [address] Internal Medicine 10/26/17 04/23/22 Rina Swenson MD [address] [place] [address] [place] [address] Psychiatry 07/09/17 Laura Mock MD, DMD [address] [address] [email or web address] Attributed Provider 09/01/21 07/03/23 Laura Mock MD, DMD [address] [address] [email or web address] Insurance Assigned Provider 05/31/23 03/01/24 Jakob Bob MD [address] [place] [address] [place] [address] [email or web address] Cardiology 08/22/23 Jose Cruz MD [address] [place] [address], [facility] [address] [place] [address] Cardiology 08/22/23 Laura Mock MD, DMD 1 [facility] [address] [place] [address] [email or web address] Attributed Provider 09/01/21 07/03/23 [facility] [phone]. Consulting Provider 08/22/23 [facility] Connect 12/24/23 03/11/24 Cyril Morales [facility] [place] [address] Nurse Practitioner 02/27/24 documented as of this encounter Additional Source Comments The information contained in this document represents components of the legal health record. It is not the complete legal health record.[facility]
--- OUTSIDE RECORDS SUMMARY | 2025-01-17 19:22 | XMS_ITS | Encounter Summary ---
Author Organization [facility] Address [address] [employer] [facility] [address] [place] [address] Phone Care Team Providers Care Will Call Clerk Name Role Phone Artie Meehan MD Primary Care Provider [phone] Artie Meehan MD Unavailable Rina Swenson MD [...] Description 12/16/2019 Ancillary Orders Virtual Department [address] [place] [address] Artie Meehan MD [address] [place] [address] [place] [address] Breast screening Social History Tobacco Use Types [...] Description 01/31/2025 1:00 PM EST Office Visit [facility] Cardiovascular Medicine 32 [facility], 5th Floor, [address] [place] [address] Karena Betancur MD [address] [address] [email or web address] 03/08/2025 9:30 AM EST Pre-Admission Testing [facility] [address] [facility] 2nd [place] [address] Irineo Ruff MD 75 [place] [address] [email or web address] 03/15/2025 Procedure Pass [facility] Endoscopy Department [address] [place] [address] 03/15/2025 7:30 AM EST Hospital Encounter [facility] Endoscopy Department [address] [place] [address] Irineo Ruff MD [address] [place] [address] [place] [address] [email or web address] 03/15/2025 7:30 AM EST - 03/15/2025 8:15 AM EST Surgery [facility] Endoscopy Department [address] [place] [address] Irineo Ruff MD [address] [place] [address], [place] [address] [email or web address] COLONOSCOPY Scheduled Procedures [...] documented as of this encounter Care Teams Will Call Clerk Relationship Specialty Start Date End Date Artie Meehan MD [address] [place] [address] PCP - General Internal Medicine 10/26/17 06/03/21 Laura Mock MD, DMD [address] [address] [email or web address] PCP - General Internal Medicine 06/04/21 11/11/23 Pcp, Unknown PCP - General 11/12/23 11/16/23 Laura Mock MD, DMD [address] [address] [email or web address] PCP - General Internal Medicine 11/17/23 12/28/23 Pcp, Unknown PCP - General 02/28/24 03/04/24 [place] [address] [place] [address] PCP - General 03/05/24 05/17/24 Laura Mock MD, DMD [address] [address] [email or web address] du PCP - General Internal Medicine 05/18/24 Artie Meehan MD [address] [place] [address] [place] [address] Internal Medicine 10/26/17 04/23/22 Rina Swenson MD [address] [place] [address] [place] [address] Psychiatry 07/09/17 Laura Mock MD, DMD [address] [address] [email or web address] du [employer] Attributed Provider 09/01/21 07/03/23 Laura Mock MD, DMD [address] [address] [email or web address] du Insurance Assigned Provider 05/31/23 03/01/24 Jakob Bob MD [address] [place] [address] [place] [address] [email or web address] Cardiology 08/22/23 Jose Cruz MD [address] [place] [address], [address] [address] Cardiology 08/22/23 Laura Mock MD, DMD 1 [facility] [address] [place] [address] [email or web address] Attributed Provider 09/01/21 07/03/23 [facility] [phone]. Consulting Provider 08/22/23 [facility] Connect 12/24/23 03/11/24 Cyril Morales [address] [place] [address] Nurse Practitioner 02/27/24 documented as of this encounter Additional Source Comments The information contained in this document represents components of the legal health record. It is not the complete legal health record.[facility]
--- OUTSIDE RECORDS SUMMARY | 2025-01-17 19:22 | XMS_ITS | Encounter Summary ---
Author Organization [facility] Address [address] [facility] [address] [place] [address] Phone Care Team Providers Care High School Band Teacher Name Role Phone Artie Meehan MD Primary Care Provider [phone] Artie Meehan MD Unavailable Rina Swenson MD Unavailable Laura Mock MD, DMD Primary Car e Provider Laura Mock MD, DMD Unavailable Laura Mock MD, DMD Unavailable Jakob Bob MD Unavailable [phone] Jose Cruz MD Unavailable Laura Mock MD, DMD Unavailable Pcp, Unknown Primary Care Provider UnavailLaura Ascencio MD, DMD Primary Car e Provider Pcp, Unknown Primary Care Provider UnavailNicole Arguello MD Primary Care Provide r Laura Mock MD, DMD Primary Car e Provider Encounter Details Date Type Department Care Team (Late st Contact Info) Description 09/06/2020 Procedure Pass Echo [facility] [address] [place] [address] Social History Tobacco Use Types Packs/Day Years [...] Description 01/31/2025 1:00 PM EST Office Visit [facility] Cardiovascular Medicine 32 [facility], 5th Floor, [address] [place] [address] Karena Betancur MD [address] [address] [email or web address] 03/08/2025 9:30 AM EST [facility] [address] 2nd [place] [address] Irineo Ruff MD [address] [place] [address] [email or web address] 03/15/[address] [facility] Endoscopy Department [address] [place] [address] 03/15/2025 7:30 AM EST Hospital Encounter [facility] Endoscopy Department [address] [place] [address] Irineo Ruff MD [address] [place] [address] [place] [address] [email or web address] 03/15/2025 7:30 AM EST - 03/15/2025 8:[address] [facility] Endoscopy Department [address] [place] [address] Irineo Ruff MD [address] [place] [address] [place] [address] [email or web address] COLONOSCOPY Scheduled Procedures Name Priority Associated Diagnoses [...] of this encounter Care Teams High School Band Teacher Relationship Specialty Start Date End Date Artie Meehan MD [address] [place] [address] [place] [address] PCP - General Internal Medicine 10/26/17 06/03/21 Laura Mock MD, DMD [address] [address] [email or web address] PCP - General Internal Medicine 06/04/21 11/11/23 Pcp, Unknown PCP - General 11/12/23 11/16/23 Laura Mock MD, DMD [address] [address] [email or web address] PCP - General Internal Medicine 11/17/23 12/28/23 Pcp, Unknown PCP - General 02/28/24 03/04/24 [place] [address] [address] PCP - General 03/05/24 05/17/24 Laura Mock MD, DMD [address] [address] [email or web address] du PCP - General Internal Medicine 05/18/24 Artie Meehan MD [address] [place] [address] [address] [place] [address] Internal Medicine 10/26/17 04/23/22 Rina Swenson MD [address] [place] [address] Dr [address] [place] [address] Psychiatry 07/09/17 Laura Mock MD, DMD [address] [address] [email or web address] Partners Attributed Provider 09/01/21 07/03/23 Laura Mock MD, DMD [address] [address] [email or web address] du Insurance Assigned Provider 05/31/23 03/01/24 Jakob Bob MD [address] [place], [place] [address] [place] [address] [email or web address] Cardiology 08/22/23 Jose Cruz MD [address] [place] [address], [address] [place] [address] Cardiology 08/22/23 Laura Mock MD, DMD 1 [place] [address] [email or web address] Attributed Provider 09/01/21 07/03/23 [facility] [phone]. Consulting Provider 08/22/23 [facility] Connect 12/24/23 03/11/24 Cyril Morales [address] [place] [address] Nurse Practitioner 02/27/24 documented as of this encounter Additional Source Comments The information contained in this document represents components of the legal health record. It is not the complete legal health record.[facility]
--- OUTSIDE RECORDS SUMMARY | 2025-01-17 19:22 | XMS_ITS | Encounter Summary ---
Author Organization [facility] Address [address] [place] [address] Phone Care Team Providers Care Felter Tennis Balls Name Role Phone Rina Swenson MD Unavailable Laura Mock MD, DMD Primary Car e Provider Laura Mock MD, DMD Unavailable Jakob Bob MD Unavailable [phone] Jose Cruz MD Unavailable Pcp, Unknown Primary Care Provider UnavailLaura Ascencio MD, DMD Primary Car e Provider Pcp, Unknown Primary Care Provider UnavailNicole Arguello MD Primary Care Provide r Laura Mock MD, DMD Primary Car e Provider Encounter Details Date Type Department Care Team (Late st Contact Info) Description 08/26/2023 Procedure Pass [facility] Endoscopy Department [address] [place] [address] Social History Tobacco Use Types Packs/Day [...] [facility] 32 [facility], 5th Floor, [address] [place] [address] Karena Betancur MD [address] [address] [email or web address] 03/08/2025 9:30 AM EST [facility] [address] [place] [address] 2nd [place] [address] Irineo Ruff MD [address] [place] [address] [email or web address] 03/15/2025 Procedure Pass [facility] Endoscopy Department [address] [place] [address] 03/15/2025 7:30 AM EST Hospital Encounter [facility] Endoscopy Department [address] [place] [address] Irineo Ruff MD [address] [place] [address] [email or web address]@[facility] 03/15/2025 7:30 AM EST - 03/15/2025 8:15 AM EST Surgery [facility] Endoscopy Department [address] [place] [address] Irineo Ruff MD [address] [place] [address], [place] [address] [email or web address] COLONOSCOPY Scheduled Procedures Name Priority Associated [...] documented as of this encounter Care Teams Felter Tennis Balls Relationship Specialty Start Date End Date Laura Mock MD, DMD [address] [address] [email or web address] du PCP - General Internal Medicine 06/04/21 11/11/23 Pcp, Unknown PCP - General 11/12/23 11/16/23 Laura Mock MD, DMD [address] [address] [email or web address] du PCP - General Internal Medicine 11/17/23 12/28/23 Pcp, Unknown PCP - General 02/28/24 03/04/24 Nicole Newell MD [address] [place] [address] PCP - General 03/05/24 05/17/24 Laura Mock MD, DMD 1 [facility] [address] [place] [address] [email or web address] so PCP - General Internal Medicine 05/18/24 Rina Swenson MD Psychiatry 07/09/17 Laura Mock MD, DMD [address] [address] [email or web address] so Insurance Assigned Provider 05/31/23 03/01/24 Jakob Bob MD [address] [place] [address] [email or web address] Cardiology 08/22/23 Jose Cruz MD [address] [place] [address], [facility] [address] [place] [address] [email or web address] Cardiology 08/22/23 [facility] [phone]. Consulting Provider 08/22/23 [facility] Connect 12/24/23 03/11/24 Cyril Morales [address] [place] [address] Nurse Practitioner 02/27/24 documented as of this encounter Additional Source Comments The information contained in this document represents components of the legal health record. It is not the complete legal health record.[facility]
--- OUTSIDE RECORDS SUMMARY | 2025-01-17 19:22 | XMS_ITS | Encounter Summary ---
Author Organization [facility] Address [facility] [employer] [address] [address] Phone Care Team Providers Care Surgical Product Sales Consultant Name Role Phone Artie Meehan MD Unavailable Rina Swenson MD Unavailable Laura Mock MD, DMD Primary Car e Provider Laura Mock MD, DMD Unavailable Laura Mock MD, DMD Unavailable Jakob Bob MD Unavailable [phone] Jose Cruz MD Unavailable Laura Mock MD, [...] [facility] Cardi[place] Medicine 32 [facility], 5th Floor, [address] [place] [address] Karena Betancur MD [address] [address] FRANK@[email or web address] 03/08/2025 9:30 AM EST [facility] 45 [facility] 2nd [place] [address] Irineo Ruff MD [address] [place] [address] [email or web address]@[facility] 03/15/2025 Procedure Pass [facility] Endoscopy Department [address] [place] [address] 03/15/2025 7:30 AM EST Hospital Encounter [facility] Endoscopy Department [address] [place] [address] Irineo Ruff MD [address] [place] [address] [email or web address]@[facility] 03/15/2025 7:30 AM EST - 03/15/2025 8:15 AM EST Surgery [facility] Endoscopy Department [address] [place] [address] Irineo Ruff MD [address] [place] [address] [email or web address] COLONOSCOPY Scheduled Procedures Name Priority Associated [...] documented as of this encounter Care Teams Surgical Product Sales Consultant Relationship Specialty Start Date End Date Laura Mock MD, DMD [address] [address] [email or web address] PCP - General Internal Medicine 06/04/21 11/11/23 Pcp, Unknown PCP - General 11/12/23 11/16/23 Laura Mock MD, DMD [address] [address] [email or web address] du PCP - General Internal Medicine 11/17/23 12/28/23 Pcp, Unknown PCP - General 02/28/24 03/04/24 Nicole Newell MD [address] [place] [address] PCP - General 03/05/24 05/17/24 Laura Mock MD, DMD 1 [facility] [address] [place] [address] [email or web address] du PCP - General Internal Medicine 05/18/24 Artie Meehan MD [address] [place] [address] [place] [address] Internal Medicine 10/26/17 04/23/22 Rina Swenson MD [address] [place] [address] [place] [address] Psychiatry 07/09/17 Laura Mock MD, DMD [address] [address] [email or web address] Partners Attributed Provider 09/01/21 07/03/23 Laura Mock MD, DMD [address] [address] [email or web address] du Insurance Assigned Provider 05/31/23 03/01/24 Jakob Bob MD [address] [place] [address] [place] [address] [email or web address] Cardiology 08/22/23 Jose Cruz MD [address] [place] [address] Cardiology 08/22/23 Laura Mock MD, DMD [address] [address] [email or web address] du [employer] Attributed Provider 09/01/21 07/03/23 [facility] [phone]. Consulting Provider 08/22/23 CAROLANN GREWAL Connect 12/24/23 03/11/24 Cyril Morales [address] [place] [address] Nurse Practitioner 02/27/24 documented as of this encounter Additional Source Comments The information contained in this document represents components of the legal health record. It is not the complete legal health record.[facility]
--- OUTSIDE RECORDS SUMMARY | 2025-01-17 19:22 | XMS_ITS | Encounter Summary ---
Author Organization [facility] Address [facility] [employer] [address] [address] Phone Care Team Providers Care Director Field Services Name Role Phone Rina Swenson MD Unavailable Laura Mock MD, DMD Primary Car e Provider Laura Mock MD, DMD Unavailable Laura Mock MD, DMD Unavailable Jakob Bob MD Unavailable Jose Cruz MD Unavailable [phone] Laura Mock MD, DMD Unavailable Pcp, Unknown [...] [facility] 32 [facility], 5th Floor, [address] [place] [address] Karena Betancur MD [address] [address] [email or web address] 03/08/2025 9:30 AM EST Pre-Admission Testing [facility] 45 [facility] 2nd [place] [address] Irineo Ruff MD 75 [place] [address] [email or web address] 03/15/2025 Procedure Pass [facility] Endoscopy Department [address] [place] [address] 03/15/2025 7:30 AM EST Hospital Encounter [facility] Endoscopy Department [address] [place] [address] Irineo Ruff MD 75 [facility] [place] [address] [email or web address] 03/15/2025 7:30 AM EST - 03/15/2025 8:15 AM EST Surgery [facility] Endoscopy Department [address] [place] [address] Irineo Ruff MD [address] [place] [address] [place] [address] [email or web address] COLONOSCOPY Scheduled Procedures Name Priority Associated Diagnoses [...] as of this encounter Care Teams Director Field Services Relationship Specialty Start Date End Date Laura Mock MD, DMD [address] [address] [email or web address] du PCP - General Internal Medicine 06/04/21 11/11/23 Pcp, Unknown PCP - General 11/12/23 11/16/23 Laura Mock MD, DMD [address] [address] [email or web address] PCP - General Internal Medicine 11/17/23 12/28/23 Pcp, Unknown PCP - General 02/28/24 03/04/24 Nicole Newell MD [address] [place] [phone] PCP - General 03/05/24 05/17/24 Laura Mock MD, DMD [address] [address] [email or web address] du PCP - General Internal Medicine 05/18/24 Rina Swenson MD Psychiatry 07/09/17 Laura Mock MD, DMD [address] [address] [email or web address] Partners Attributed Provider 09/01/21 07/03/23 Laura Mock MD, DMD [address] [address] [email or web address] du Insurance Assigned Provider 05/31/23 03/01/24 Jakob Bob MD 75 [facility] [place] [address] [email or web address] Cardiology 08/22/23 Jose Cruz MD [address] [place] [address] Cardiology 08/22/23 Laura Mock MD, DMD [address] [address] [email or web address] du Partners Attributed Provider 09/01/21 07/03/23 [facility] [phone]. Consulting Provider 08/22/23 [facility] Connect 12/24/23 03/11/24 Cyril Morales [address] [place] [address] Nurse Practitioner 02/27/24 documented as of this encounter Additional Source Comments The information contained in this document represents components of the legal health record. It is not the complete legal health record.[facility]
--- OUTSIDE RECORDS SUMMARY | 2025-01-17 19:22 | XMS_ITS | Encounter Summary ---
Author Organization [facility] Address [facility] [employer] [address] [address] Phone Care Team Providers Care Spooler Operator Name Role Phone Rina Swenson MD [...] [facility] Cardiovascular Medicine 32 [facility], 5th Floor, [address] [place] [address] Karena Betancur MD [address] [address] FRANK@[email or web address] 03/08/2025 9:30 AM EST Pre-Admission Testing [facility] 45 [facility] 2nd [place] [address] Irineo Ruff MD 75 [place] [address] [email or web address] 03/15/2025 Procedure Pass [facility] Endoscopy Department [address] [place] [address] 03/15/2025 7:30 AM EST Hospital Encounter [facility] Endoscopy Department [address] [place] [address] Irineo Ruff MD 75 [facility] [place] [address] [email or web address] 03/15/2025 7:30 AM EST - 03/15/2025 8:15 AM EST Surgery [facility] Endoscopy Department [address] [place] [address] Irineo Ruff MD [address] [place] [address] [place] [address] [email or web address] [email or web address] Scheduled Procedures Name Priority Associated [...] documented as of this encounter Care Teams Spooler Operator Relationship Specialty Start Date End Date Laura Mock MD, DMD [address] [address] [email or web address] du PCP - General Internal Medicine 06/04/21 11/11/23 Pcp, Unknown PCP - General 11/12/23 11/16/23 Laura Mock MD, DMD [address] [address] [email or web address] PCP - General Internal Medicine 11/17/23 12/28/23 Pcp, Unknown PCP - General 02/28/24 03/04/24 Nicole Newell MD [address] [place] [address] [phone] PCP - General 03/05/24 05/17/24 Laura Mock MD, DMD [address] [address] [email or web address] du PCP - General Internal Medicine 05/18/24 Rina Swenson MD Psychiatry 07/09/17 Laura Mock MD, DMD [address] [address] [email or web address]. [email or web address] Partners Attributed Provider 09/01/21 07/03/23 Laura Mock MD, DMD [address] [address] [email or web address] du Insurance Assigned Provider 05/31/23 03/01/24 Jakob Bob MD 75 [facility] [place] [address] [email or web address] Cardiology 08/22/23 Jose Cruz MD [address] [place] [address] Cardiology 08/22/23 Laura Mock MD, DMD [address] [address] [email or web address] du [employer] Attributed Provider 09/01/21 07/03/23 [facility] [phone]. Consulting Provider 08/22/23 [facility] Connect 12/24/23 03/11/24 Cyril Morales [address] [place] [address] Nurse Practitioner 02/27/24 documented as of this encounter Additional Source Comments The information contained in this document represents components of the legal health record. It is not the complete legal health record.[facility]
--- OUTSIDE RECORDS SUMMARY | 2025-01-17 19:22 | XMS_ITS | Encounter Summary ---
Author Organization [facility] Address [address] [place] [address] [place] [address] Phone Care Team Providers Care Drug Safety Specialist Name Role Phone Rina Swenson MD Unavailable [phone] Laura Mock MD, DMD Primary Car e Provider Laura Mock MD, DMD Unavailable Laura Mock MD, DMD Unavailable Jakob Bob MD Unavailable [phone] Jose Cruz MD Unavailable [phone] Laura Mock MD, DMD Unavailable Pcp, Unknown Primary Care Provider UnavailLaura Ascencio MD, DMD Primary Car e Provider Pcp, Unknown Primary Care Provider UnavailNicole Arguello MD Primary Care Provide r Laura Mock MD, DMD Primary Car e Provider Encounter Details Date Type Department Care Team (Late st Contact Info) Description 07/18/2022 Anti-coag visit [facility] Anticoagulation Clinic [address] [place] [phone] Kenyatta [email or web address] Social History Tobacco Use Types [...] Visit [facility] Cardiovascular Medicine 32 [facility], 5th Floor, [address] [place] [address] Karena Betancur MD [address] [address] [email or web address] 03/08/2025 9:30 AM EST [facility] [place] 45 [facility] 2nd [place] [address] Irineo Ruff MD 75 [facility] [address] [email or web address] 03/15/2025 Procedure Pass [facility] Endoscopy Department [address] [place] [address] 03/15/2025 7:30 AM EST Hospital Encounter [facility] Endoscopy Department [address] [place] [address] Irineo Ruff MD [address] [place] [address] [place] [address] [email or web address] 03/15/2025 7:30 AM EST - 03/15/2025 8:15 AM EST Surgery [facility] Endoscopy Department [address] [place] [address] Irineo Ruff MD [address] [place] [address] [place] [address] [email or web address] COLONOSCOPY Scheduled Procedures [...] documented as of this encounter Care Teams Drug Safety Specialist Relationship Specialty Start Date End Date Laura Mock MD, DMD [address] [address] [email or web address] PCP - General Internal Medicine 06/04/21 11/11/23 Pcp, Unknown PCP - General 11/12/23 11/16/23 Laura Mock MD, DMD 1 [facility] [address] [place] [address] [email or web address] PCP - General Internal Medicine 11/17/23 12/28/23 Pcp, Unknown PCP - General 02/28/24 03/04/24 [place] [address] [address] PCP - General 03/05/24 05/17/24 Laura Mock MD, DMD [address] [address] [email or web address] du PCP - General Internal Medicine 05/18/24 Rina Swenson MD Psychiatry 07/09/17 Laura Mock MD, DMD [address] [address] [email or web address] Partners Attributed Provider 09/01/21 07/03/23 Laura Mock MD, DMD [address] [address] [email or web address] Insurance Assigned Provider 05/31/23 03/01/24 Jakob Bob MD [address] [place] [address] [place] [address] [email or web address] Cardiology 08/22/23 Jose Cruz MD [address] [place] [address], [address] [place] [address] Cardiology 08/22/23 Laura Mock MD, DMD [address] [address] [email or web address] Attributed Provider 09/01/21 07/03/23 [place] [facility] [phone]. Consulting Provider 08/22/23 [facility] Connect 12/24/23 03/11/24 Cyril Morales [facility] [place] [address] Nurse Practitioner 02/27/24 documented as of this encounter Additional Source Comments The information contained in this document represents components of the legal health record. It is not the complete legal health record.[facility]
--- OUTSIDE RECORDS SUMMARY | 2025-01-17 19:22 | XMS_ITS | Encounter Summary ---
Author Organization [facility] Address [address] [employer] [facility] [address] [place] [address] Phone Care Team Providers Care Emergency Services Professional Name Role Phone Rina Swenson MD Unavailable [...] Contact Info) Description 12/25/2022 Procedure Pass [address] [address] Social History Tobacco Use Types Packs/Day Years [...] [place] Cardi[place] 32 [facility], 5th Floor, [address] [place] [address] Karena Betancur MD [address] [address] [email or web address] 03/08/2025 9:30 AM EST Pre-Admission Testing [facility] 45 [facility] 2nd [place] [address] Irineo Ruff MD [address] [place] [address] [email or web address]@[facility] 03/15/2025 Procedure Pass [facility] Endoscopy Department [address] [place] [address] 03/15/2025 7:30 AM EST Hospital Encounter [facility] Endoscopy Department [address] [place] [address] Irineo Ruff MD [address] [place] [address] [place] [address] [email or web address]@[email or web address] 03/15/2025 7:30 AM EST - 03/15/2025 8:15 AM EST Surgery [facility] Endoscopy Department [address] [place] [address] Irineo Ruff MD [address] [place] [address] [place] [address] [email or web address]@[facility] COLONOSCOPY Scheduled Procedures Name Priority Associated [...] documented as of this encounter Care Teams Emergency Services Professional Relationship Specialty Start Date End Date Laura Mock MD, DMD [address] [address] [email or web address] PCP - General Internal Medicine 06/04/21 11/11/23 Pcp, Unknown PCP - General 11/12/23 11/16/23 Laura Mock MD, DMD [address] [address] [email or web address] PCP - General Internal Medicine 11/17/23 12/28/23 Pcp, Unknown PCP - General 02/28/24 03/04/24 [place] [address] [address] PCP - General 03/05/24 05/17/24 Laura Mock MD, DMD [address] [address] [email or web address] PCP - General Internal Medicine 05/18/24 Rina Swenson MD Psychiatry 07/09/17 Laura Mock MD, DMD [address] [address] [email or web address]. [email or web address] Partners Attributed Provider 09/01/21 07/03/23 Laura Mock MD, DMD [address] [address] [email or web address] du Insurance Assigned Provider 05/31/23 03/01/24 Jakob Bob MD 75 [facility] [place] [address] [email or web address] Cardiology 08/22/23 Jose Cruz MD [address] [place] [address], [address] [place] [address] Cardiology 08/22/23 Laura Mock MD, DMD [address] [address] [email or web address] Partners Attributed Provider 09/01/21 07/03/23 [facility] [phone]. Consulting Provider 08/22/23 [facility] Connect 12/24/23 03/11/24 Cyril Morales [facility] [place] [address] Nurse Practitioner 02/27/24 documented as of this encounter Additional Source Comments The information contained in this document represents components of the legal health record. It is not the complete legal health record.[facility]
--- OUTSIDE RECORDS SUMMARY | 2025-01-17 19:22 | XMS_ITS | Encounter Summary ---
Author Organization [facility] Address [facility] [employer] [address] [address] Phone Care Team Providers Care Registered Nursing Professor Name Role Phone Artie Meehan MD [...] [place] [place] [facility] 32 [facility], 5th Floor, [address] [place] [address] Karena Betancur MD [address] [address] [email or web address] 03/08/2025 9:30 AM EST [facility]-Admission Testing [facility] 45 [facility] 2nd [place] [address] Irineo Ruff MD [address] [place] [address] [email or web address] 03/15/2025 Procedure Pass [facility] Endoscopy Department [address] [place] [address] 03/15/2025 7:30 AM EST Hospital Encounter [facility] Endoscopy Department [address] [place] [address] Irineo Ruff MD [address] [place] [address] [email or web address]@[email or web address] 03/15/2025 7:30 AM EST - 03/15/2025 8:15 AM EST Surgery [facility] Endoscopy Department [address] [place] [address] Irineo Ruff MD [address] [place] [address] [email or web address] COLONOSCOPY Scheduled Procedures Name Priority [...] as of this encounter Care Teams Registered Nursing Professor Relationship Specialty Start Date End Date Laura Mock MD, DMD [address] [address] [email or web address] PCP - General Internal Medicine 06/04/21 11/11/23 Pcp, Unknown PCP - General 11/12/23 11/16/23 Laura Mock MD, DMD [address] [address] [email or web address] PCP - General Internal Medicine 11/17/23 12/28/23 Pcp, Unknown PCP - General 02/28/24 03/04/24 Nicole Newell MD [address] [place] [address] PCP - General 03/05/24 05/17/24 Laura Mock MD, DMD [address] [place] [address] [email or web address] PCP - General Internal Medicine 05/18/24 Artie Meehan MD [address] [place] [address] [place] [address] Internal Medicine 10/26/17 04/23/22 Rina Swenson MD [address] [place] [address] Dr Nichols [facility] [place] [address] Psychiatry 07/09/17 Laura Mock MD, DMD [address] [address] [email or web address] Partners Attributed Provider 09/01/21 07/03/23 Laura Mock MD, DMD [address] [address] [email or web address] du Insurance Assigned Provider 05/31/23 03/01/24 Jakob Bob MD [address] [place] [address] [email or web address] Cardiology 08/22/23 Jose Cruz MD [address] [place] [address], [address] [place] [address] Cardiology 08/22/23 Laura Mock MD, DMD [address] [address] [email or web address] Partners Attributed Provider 09/01/21 07/03/23 [facility] [phone]. Consulting Provider 08/22/23 [facility] Connect 12/24/23 03/11/24 Cyril Morales [address] [place] [address] Nurse Practitioner 02/27/24 documented as of this encounter Additional Source Comments The information contained in this document represents components of the legal health record. It is not the complete legal health record.[facility]
--- OUTSIDE RECORDS SUMMARY | 2025-01-17 19:22 | XMS_ITS | Encounter Summary ---
Author Organization [facility] Address [facility] [employer] [facility] [address] [place] [address] Phone Care Team Providers Care Liquor Maker Name Role Phone Rina Swenson MD Unavailable Laura Mock MD, DMD Primary Car e Provider Laura Mock MD, DMD Unavailable Laura Mock MD, DMD Unavailable Jakob Bob MD Unavailable [phone] Jose Cruz MD Unavailable Laura Mock MD, DMD Unavailable Pcp, Unknown Primary Care Provider UnavailLaura Ascencio MD, DMD Primary Car e Provider Pcp, Unknown Primary Care Provider UnavailNicole Arguello MD Primary Care Provide r Laura Mock MD, DMD Primary Car e Provider Encounter Details Date Type Department Care Team (Late st Contact Info) Description 10/07/2022 Procedure Pass [facility] [place] [place] [id number] Social History Tobacco Use Types Packs/Day Years [...] [facility] [place] [facility] 32 [facility], 5th Floor, [address] [place] [address] Karena Betancur MD [address] [address] [email or web address] 03/08/2025 9:30 AM EST Pre-Admission Testing [facility] 45 [place] 2nd [place] [address] Irineo Ruff MD 75 [place] [address] [email or web address]@[facility] 03/15/2025 Procedure Pass [facility] Endoscopy Department [address] [place] [address] 03/15/2025 7:30 AM EST Hospital Encounter [facility] Endoscopy Department [address] [place] [address] Irineo Ruff MD 75 [facility] [place] [address] [email or web address] 03/15/2025 7:30 AM EST - 03/15/2025 8:15 AM EST Surgery [facility] Endoscopy Department [address] [place] [address] Irineo Ruff MD [address] [place] [address] [place] [address] [email or web address] COLONOSCOPY Scheduled Procedures [...] documented as of this encounter Care Teams Liquor Maker Relationship Specialty Start Date End Date Laura Mock MD, DMD [address] [address] [email or web address] PCP - General Internal Medicine 06/04/21 11/11/23 Pcp, Unknown PCP - General 11/12/23 11/16/23 Laura Mock MD, DMD [address] [address] [email or web address] PCP - General Internal Medicine 11/17/23 12/28/23 Pcp, Unknown PCP - General 02/28/24 03/04/24 [place] [address] [place] [address] PCP - General 03/05/24 05/17/24 Laura Mock MD, DMD 1 [facility] [address] [place] [address] [email or web address] PCP - General Internal Medicine 05/18/24 Rina Swenson MD Psychiatry 07/09/17 Laura Mock MD, DMD [address] [address] [email or web address] Partners Attributed Provider 09/01/21 07/03/23 Laura Mock MD, DMD [address] [address] [email or web address] Insurance Assigned Provider 05/31/23 03/01/24 Jakob Bob MD 75 [facility] [place] [address] [email or web address] Cardiology 08/22/23 Jose Cruz MD [address] [place] [address], [address] [place] [address] Cardiology 08/22/23 Laura Mock MD, DMD [address] [address] [email or web address] Partners Attributed Provider 09/01/21 07/03/23 [facility] [phone]. Consulting Provider 08/22/23 [facility] Connect 12/24/23 03/11/24 Cyril Morales [employer] [place] [address] Nurse Practitioner 02/27/24 documented as of this encounter Additional Source Comments The information contained in this document represents components of the legal health record. It is not the complete legal health record.[facility]
--- OUTSIDE RECORDS SUMMARY | 2025-01-17 19:22 | XMS_ITS | Encounter Summary ---
Author Organization [facility] Address [address] [employer] [facility] [address] [place] [address] Phone Care Team Providers Care Senior Stock Plan Administrator Name Role Phone Artie Meehan MD Primary Care Provider [phone] Artie Meehan MD Unavailable Rina Swenson MD [...] st Contact Info) Description 11/07/2020 Procedure Pass [facility], [address] [address] Social History Tobacco Use Types Packs/Day Years [...] [facility] [place] 32 [facility], 5th Floor, [address] [place] [address] Karena Betancur MD [address] [address] FRANK@[email or web address] 03/08/2025 9:30 AM EST [facility] [address] [place] [address] 2nd [place] [address] Irineo Ruff MD [address] [place] [address] [email or web address]@[facility] 03/15/2025 Procedure Pass [facility] Endoscopy Department [address] [place] [address] 03/15/2025 7:30 AM EST Hospital Encounter [facility] Endoscopy Department [address] [place] [address] Irineo Ruff MD [address] [place] [address] [email or web address]@[facility] 03/15/2025 7:30 AM EST - 03/15/2025 8:15 AM EST Surgery [facility] Endoscopy Department [address] [place] [address] Irineo Ruff MD [address] [place] [address] [place] [address] [email or web address] COLONOSCOPY Scheduled Procedures Name Priority Associated Diagnoses [...] as of this encounter Care Teams Senior Stock Plan Administrator Relationship Specialty Start Date End Date Artie Meehan MD [address] [place] [address] PCP - General Internal Medicine 10/26/17 06/03/21 Laura Mock MD, DMD [address] [address] [email or web address] PCP - General Internal Medicine 06/04/21 11/11/23 Pcp, Unknown PCP - General 11/12/23 11/16/23 Laura Mock MD, DMD [address] [address] [email or web address] PCP - General Internal Medicine 11/17/23 12/28/23 Pcp, Unknown PCP - General 02/28/24 03/04/24 Nicole Newell [place] [address] [place] [address] PCP - General 03/05/24 05/17/24 Laura Mock MD, DMD [address] [address] [email or web address] du PCP - General Internal Medicine 05/18/24 Artie Meehan MD [address] [place] [address] [place] [address] Internal Medicine 10/26/17 04/23/22 Rina Swenson MD [address] [place] [address] Dr [address] [place] [address] Psychiatry 07/09/17 Laura Mock MD, DMD [address] [address] [email or web address] du Partners Attributed Provider 09/01/21 07/03/23 Laura Mock MD, DMD [address] [address] [email or web address] du Insurance Assigned Provider 05/31/23 03/01/24 Jakob Bob MD [address] [place] [address] [address] [place] [address] [email or web address] Cardiology 08/22/23 Jose Cruz MD [address] [place] [address], [facility] 301 [place] [address] Cardiology 08/22/23 Laura Mock MD, DMD 1 [facility] [address] [place] [address] [email or web address] Partners Attributed Provider 09/01/21 07/03/23 [place] [facility] [phone]. Consulting Provider 08/22/23 [facility] Connect 12/24/23 03/11/24 Cyril Morales [address] [place] [phone] Nurse Practitioner 02/27/24 documented as of this encounter Additional Source Comments The information contained in this document represents components of the legal health record. It is not the complete legal health record.[facility]
--- OUTSIDE RECORDS SUMMARY | 2025-01-17 19:22 | XMS_ITS | Encounter Summary ---
Author Organization [facility] Address [facility] [employer] [address] [address] Phone Care Team Providers Care Biomaterials Engineer Name Role Phone Artie Meehan MD [...] Description 01/31/2025 1:00 PM EST Office Visit [facility] Cardiovascular Medicine 32 [facility], 5th Floor, [address] [place] [address] Karena Betancur MD [address] [address] [email or web address] 03/08/2025 9:30 AM EST [facility] 45 [facility] 2nd [place] [address] Irineo Ruff MD [address] [place] [address] WALI@[facility] 03/15/2025 Procedure Pass [facility] Endoscopy Department [address] [place] [address] 03/15/2025 7:30 AM EST Hospital Encounter [facility] Endoscopy Department [address] [place] [address] Irineo Ruff MD [address] [place] [address] WALI@[email or web address] 03/15/2025 7:30 AM EST - 03/15/2025 8:15 AM EST Surgery [facility] Endoscopy Department [address] [place] [address] Irineo Ruff MD [address] [place] [address] [email or web address] [facility] COLONOSCOPY Scheduled Procedures Name Priority Associated Diagnoses [...] documented as of this encounter Care Teams Biomaterials Engineer Relationship Specialty Start Date End Date Laura Mock MD, DMD [address] [address] [email or web address] PCP - General Internal Medicine 06/04/21 11/11/23 Pcp, Unknown PCP - General 11/12/23 11/16/23 Laura Mock MD, DMD [address] [address] [email or web address] PCP - General Internal Medicine 11/17/23 12/28/23 Pcp, Unknown PCP - General 02/28/24 03/04/24 Nicole Newell MD [address] [place] [address] PCP - General 03/05/24 05/17/24 Laura Mock MD, DMD 1 [facility] [address] [place] [address] [email or web address] PCP - General Internal Medicine 05/18/24 Artie Meehan MD [address] [place] [address] [place] [address] Internal Medicine 10/26/17 04/23/22 Rina Swenson MD [address] [place] [address] [place] [address] Psychiatry 07/09/17 Laura Mock MD, DMD [address] [address] [email or web address] [employer] Attributed Provider 09/01/21 07/03/23 Laura Mock MD, DMD [address] [address] [email or web address] Insurance Assigned Provider 05/31/23 03/01/24 Jakob Bob MD [address] [place] [address] [place] [address] [email or web address] Cardiology 08/22/23 Jose Cruz MD [address] [place] [address] Cardiology 08/22/23 Laura Mock MD, DMD [address] [address] [email or web address] Partners Attributed Provider 09/01/21 07/03/23 [facility] [phone]. Consulting Provider 08/22/23 CAROLANN GREWAL Connect 12/24/23 03/11/24 Cyril Morales [address] [place] [address] Nurse Practitioner 02/27/24 documented as of this encounter Additional Source Comments The information contained in this document represents components of the legal health record. It is not the complete legal health record.[facility]
--- OUTSIDE RECORDS SUMMARY | 2025-01-17 19:22 | XMS_ITS | Encounter Summary ---
Author Organization [facility] Address [facility] [email or web address] [facility] [address] [place] [address] Phone Care Team Providers Care Surgical Scheduler Name Role Phone Artie Meehan MD Unavailable Rina Swenson MD Unavailable Laura Mock MD, DMD Primary Car e Provider Laura Mock MD, DMD Unavailable Laura Mock MD, DMD Unavailable Jakob Bob MD Unavailable [phone] Jose Cruz MD Unavailable [phone] Laura Mock MD, DMD Unavailable Pcp, Unknown Primary Care Provider UnavailLaura Ascencio MD, DMD Primary Car e Provider Pcp, Unknown Primary Care Provider UnavailNicole Arguello MD Primary Care Provide r Laura Mock MD, DMD Primary Car e Provider Encounter Details Date Type Department Care Team (Late st Contact Info) Description 02/18/2022 Anti-coag visit [facility] Anticoagulation Clinic [address] [place] [address] Rony Amaro, [facility] 1249 [facility] 3rd [place] [address] [email or web address] Social History Tobacco Use Types Packs/Day Years [...] [place] Cardi[place] 32 [facility], 5th Floor, [address] [place] [address] Karena Betancur MD [address] [address] [email or web address] 03/08/2025 9:30 AM EST Pre-Admission Testing [facility] 45 [facility] 2nd [place] [address] Irineo Ruff MD 75 [place] [address] [email or web address] 03/15/2025 Procedure Pass [facility] Endoscopy Department [address] [place] [address] 03/15/2025 7:30 AM EST Hospital Encounter [facility] Endoscopy Department [address] [place] [address] Irineo Ruff MD [address] [facility] [place] [address] [email or web address] 03/15/2025 7:30 AM EST - 03/15/2025 8:15 AM EST Surgery [facility] Endoscopy Department [address] [place] [address] Irineo Ruff MD [address] [place] [address] [place] [address] [email or web address] .[facility] COLONOSCOPY Scheduled Procedures Name Priority Associated Diagnoses [...] as of this encounter Care Teams Surgical Scheduler Relationship Specialty Start Date End Date Laura Mock MD, DMD [address] [address] [email or web address] so PCP - General Internal Medicine 06/04/21 11/11/23 Pcp, Unknown PCP - General 11/12/23 11/16/23 Laura Mock MD, DMD [address] [address] [email or web address] PCP - General Internal Medicine 11/17/23 12/28/23 Pcp, Unknown PCP - General 02/28/24 03/04/24 [place] [address] [place] [address] PCP - General 03/05/24 05/17/24 Laura Mock MD, DMD [address] [address] [email or web address] PCP - General Internal Medicine 05/18/24 Artie Meehan MD [address] [place] [address] Dr [address] [place] [address] Internal Medicine 10/26/17 04/23/22 Rina Swenson MD [address] [place] [address] Dr [address] [place] [address] Psychiatry 07/09/17 Laura Mock MD, DMD [address] [address] [email or web address] du Partners Attributed Provider 09/01/21 07/03/23 Laura Mock MD, DMD [address] [address] [email or web address] du Insurance Assigned Provider 05/31/23 03/01/24 Jakob Bob MD [address] [place], [place] [address] [place] [address] [email or web address] Cardiology 08/22/23 Jose Cruz MD [address] [place] [address], [address] [place] [address] Cardiology 08/22/23 Laura Mock MD, DMD 1 [facility] [address] [place] [address] [email or web address] [employer] Attributed Provider 09/01/21 07/03/23 [facility] [phone]. Consulting Provider 08/22/23 [facility] Connect 12/24/23 03/11/24 Cyril Morales [address] [place] [phone] Nurse Practitioner 02/27/24 documented as of this encounter Additional Source Comments The information contained in this document represents components of the legal health record. It is not the complete legal health record.[facility]
--- OUTSIDE RECORDS SUMMARY | 2025-01-17 19:22 | XMS_ITS | Encounter Summary ---
Author Organization [facility] Address [facility] [employer] [address] [address] Phone Care Team Providers Care Geological Manager Name Role Phone Artie Meehan MD Unavailable Rina Swenson MD Unavailable [phone] Laura Mock MD, DMD Primary Car e Provider Laura Mock MD, DMD Unavailable Laura Mock MD, DMD Unavailable Jakob Bob MD Unavailable [phone] Jose Cruz MD Unavailable [phone] Laura Mock MD, DMD Unavailable Pcp, Unknown Primary Care Provider UnavailLaura Ascencio MD, DMD Primary Car e Provider Pcp, Unknown Primary Care Provider UnavailNicole Arguello MD Primary Care Provide r Laura Mock MD, DMD Primary Car e Provider Encounter Details Date Type Department Care Team (Late st Contact Info) Description 09/28/2021 Telephone [facility] Psychiatric Specialties at [address] [place] [address] Tamara Walton, YOLIE [address] [place] [address] [email or web address] Social History Tobacco Use Types Packs/Day Years [...] [facility], 5th Floor, [address] [place] [address] Karena Betancur MD [address] [address] [email or web address] 03/08/2025 9:30 AM EST [facility] 2nd [place] [address] Irineo Ruff MD [address] [place] [address] [email or web address] 03/15/2025 Procedure Pass [facility] Endoscopy Department [address] [place] [address] 03/15/2025 7:30 AM EST Hospital Encounter [facility] Endoscopy Department [address] [place] [address] Irineo Ruff MD [address] [place] [address] [place] [address] [email or web address] 03/15/2025 7:30 AM EST - 03/15/2025 8:15 AM EST Surgery [facility] Endoscopy Department [address] [place] [address] Irineo Ruff MD [address] [place] [address], [place] [address] [email or web address] [email or web address] Scheduled Procedures Name Priority [...] documented as of this encounter Care Teams Geological Manager Relationship Specialty Start Date End Date Laura Mock MD, DMD [address] [address] [email or web address] du PCP - General Internal Medicine 06/04/21 11/11/23 Pcp, Unknown PCP - General 11/12/23 11/16/23 Laura Mock MD, DMD [address] [address] [email or web address] du PCP - General Internal Medicine 11/17/23 12/28/23 Pcp, Unknown PCP - General 02/28/24 03/04/24 [place] [address] [address] PCP - General 03/05/24 05/17/24 Laura Mock MD, DMD [address] [address] [email or web address] du PCP - General Internal Medicine 05/18/24 Artie Meehan MD [address] [place] [address] Dr [address] [place] [address] [place] [address] Internal Medicine 10/26/17 04/23/22 Rina Swenson MD [address] [place] [address] Dr [address] [place] [address] [place] [address] Psychiatry 07/09/17 Laura Mock MD, DMD [address] [address] [email or web address] du Partners Attributed Provider 09/01/21 07/03/23 Laura Mock MD, DMD [address] [address] [email or web address] du Insurance Assigned Provider 05/31/23 03/01/24 Jakob Bob MD [address] [place] [address] [place] [address] [email or web address] Cardiology 08/22/23 Jose Cruz MD [address] [place] [address] Cardiology 08/22/23 Laura Mock MD, DMD [address] [address] [email or web address]. du Partners Attributed Provider 09/01/21 07/03/23 [facility] [phone]. Consulting Provider 08/22/23 CAROLANN GREWAL Connect 12/24/23 03/11/24 Cyril Morales [facility] [place] [address] Nurse Practitioner 02/27/24 documented as of this encounter Additional Source Comments The information contained in this document represents components of the legal health record. It is not the complete legal health record.[facility]
--- OUTSIDE RECORDS SUMMARY | 2025-01-17 19:22 | XMS_ITS | Encounter Summary ---
Author Organization [facility] Address [address] [place] [address] [place] [address] Phone Care Team Providers Care Test Facility Engineer Name Role Phone Rina Swenson MD Unavailable [phone] Laura Mock MD, DMD Primary Car e [...] st Contact Info) Description 08/08/2022 Anti-coag visit [facility] Anticoagulation Clinic [address] [place] [id number] Kenyatta [email or web address] Social History Tobacco Use Types Packs/Day Years [...] [facility] 32 [facility], 5th Floor, [address] [place] [address] Karena Betancur MD [address] [address] [email or web address] 03/08/2025 9:30 AM EST [facility]-Admission [facility] 2nd [place] [address] Irineo Ruff MD 75 [facility] [place] [address] [email or web address] 03/15/2025 Procedure Pass [facility] Endoscopy Department [address] [place] [address] 03/15/2025 7:30 AM EST Hospital Encounter [facility] Endoscopy Department [address] [place] [address] Irineo Ruff MD [address] [place] [address] [place] [address] [email or web address] 03/15/2025 7:30 AM EST - 03/15/2025 8:15 AM EST Surgery [facility] Endoscopy Department [address] [place] [address] Irineo Ruff MD [address] [place] [address] [place] [address] [email or web address] COLONOSCOPY Scheduled Procedures Name Priority Associated [...] documented as of this encounter Care Teams Test Facility Engineer Relationship Specialty Start Date End Date Laura Mock MD, DMD [address] [address] [email or web address] so PCP - General Internal Medicine 06/04/21 11/11/23 Pcp, Unknown PCP - General 11/12/23 11/16/23 Laura Mock MD, DMD 1 [facility] [address] [place] [address] [email or web address] PCP - General Internal Medicine 11/17/23 12/28/23 Pcp, Unknown PCP - General 02/28/24 03/04/24 [place] [address] [address] PCP - General 03/05/24 05/17/24 Laura Mock MD, DMD [address] [address] [email or web address] du PCP - General Internal Medicine 05/18/24 Rina Swenson MD Psychiatry 07/09/17 Laura Mock MD, DMD [address] [address] [email or web address] Partners Attributed Provider 09/01/21 07/03/23 Laura Mock MD, DMD [address] [address] [email or web address] du Insurance Assigned Provider 05/31/23 03/01/24 Jakob Bob MD [address] [place] [address] [place] [address] [email or web address] Cardiology 08/22/23 Jose Cruz MD [address] [place] [address], [address] [place] [address] Cardiology 08/22/23 Laura Mock MD, DMD [address] [address] [email or web address] Partners Attributed Provider 09/01/21 07/03/23 [facility] [phone]. Consulting Provider 08/22/23 [facility] Connect 12/24/23 03/11/24 Cyril Morales [facility] [place] [address] Nurse Practitioner 02/27/24 documented as of this encounter Additional Source Comments The information contained in this document represents components of the legal health record. It is not the complete legal health record.[facility]
--- OUTSIDE RECORDS SUMMARY | 2025-01-17 19:22 | XMS_ITS | Encounter Summary ---
Author Organization [facility] Address [facility] [address] [place] [address] Phone Care Team Providers Care Dental Floss Packer Name Role Phone Artie Meehan MD Unavailable Rina Swenson MD Unavailable Laura Mock MD, DMD Primary Car e Provider Laura Mock MD, DMD Unavailable Laura Mock MD, DMD Unavailable Jakob Bob MD Unavailable Jose Cruz MD Unavailable [phone] Laura Mock MD, DMD Unavailable Pcp, Unknown Primary Care Provider UnavailLaura Ascencio MD, DMD Primary Car e Provider Pcp, Unknown Primary Care Provider UnavailNicole Arguello MD Primary Care Provide r Laura Mock MD, DMD Primary Car e Provider Encounter Details Date Type Department Care Team (Late st Contact Info) Description 04/05/2022 Anti-coag visit [facility] Anticoagulation Clinic [address] [place] [address] Melvin Stewart, [facility] [address] [place] [address] [email or web address] Social History Tobacco Use Types [...] [facility] Cardiovascular Medicine 32 [facility], 5th Floor, [address] [place] [address] Karena Bteancur MD [address] [address] [email or web address] 03/08/2025 9:30 AM EST Pre-Admission Testing [facility] 45 [facility] 2nd [place] [address] Irineo Ruff MD 75 [place] [address] [email or web address] 03/15/2025 Procedure Pass [facility] Endoscopy Department [address] [place] [address] 03/15/2025 7:30 AM EST Hospital Encounter [facility] Endoscopy Department [address] [place] [address] Irineo Ruff MD 75 [facility] [place] [address] [email or web address] 03/15/2025 7:30 AM EST - 03/15/2025 8:15 AM EST Surgery [facility] Endoscopy Department [address] [place] [address] Irineo Ruff MD [address] [place] [address], [place] [address] [email or web address] COLONOSCOPY Scheduled Procedures Name Priority Associated [...] as of this encounter Care Teams Dental Floss Packer Relationship Specialty Start Date End Date Laura Mock MD, DMD [address] [address] [email or web address] PCP - General Internal Medicine 06/04/21 11/11/23 Pcp, Unknown PCP - General 11/12/23 11/16/23 Laura Mock MD, DMD [address] [address] [email or web address] PCP - General Internal Medicine 11/17/23 12/28/23 Pcp, Unknown PCP - General 02/28/24 03/04/24 [place] [address] [address] PCP - General 03/05/24 05/17/24 Laura Mock MD, DMD [address] [address] [email or web address] PCP - General Internal Medicine 05/18/24 Artie Meehan MD [address] [place] [address] [address] Internal Medicine 10/26/17 04/23/22 Rina Swenson MD [address] [place] [address] [address] Psychiatry 07/09/17 Laura Mock MD, DMD [address] [address] [email or web address] Partners Attributed Provider 09/01/21 07/03/23 Laura Mock MD, DMD [address] [address] [email or web address] Insurance Assigned Provider 05/31/23 03/01/24 Jakob Bob MD [address] [place], [place] [address] [place] [address] [email or web address] Cardiology 08/22/23 Jose Cruz MD [address] [place] [address], [address] [place] [address] Cardiology 08/22/23 Laura Mock MD, DMD 1 [facility] [address] [place] [address] [email or web address] Partners Attributed Provider 09/01/21 07/03/23 [facility] [phone]. Consulting Provider 08/22/23 [facility] Connect 12/24/23 03/11/24 Cyril Morales [facility] [place] [address] Nurse Practitioner 02/27/24 documented as of this encounter Additional Source Comments The information contained in this document represents components of the legal health record. It is not the complete legal health record.[facility]
--- OUTSIDE RECORDS SUMMARY | 2025-01-17 19:22 | XMS_ITS | Encounter Summary ---
Author Organization [facility] Address [address] [place] [address] Phone Care Team Providers Care Palletizer Operator Name Role Phone Artie Meehan MD Unavailable Rina Swenson MD Unavailable Laura Mock MD, DMD Primary Car e Provider Laura Mock MD, DMD Unavailable Laura Mokc MD, DMD Unavailable Jakob Bob MD Unavailable [...] PharmD [address] [place] [address] [email or web address] Social History Tobacco Use Types Packs/Day [...] [facility] Cardi[facility] Medicine 32 [facility], 5th Floor, [address] [place] [address] Karena Betancur MD [address] [address] [email or web address] 03/08/2025 9:30 AM EST [facility]mission Testing [facility] [place] [address] [facility] 2nd [place] [address] Irineo Ruff MD [address] [place] [address] [email or web address] 03/15/2025 Procedure Pass [facility] Endoscopy Department [address] [place] [address] 03/15/2025 7:30 AM EST Hospital Encounter [facility] Endoscopy Department [address] [place] [address] Irineo Ruff MD [address] [place] [address] [place] [address] [email or web address] 03/15/2025 7:30 AM EST - 03/15/2025 8:15 AM EST Surgery [facility] Endoscopy Department [address] [place] [address] Irineo Ruff MD [address] [place] [address], [place] [address] [email or web address] COLONOSCOPY Scheduled Procedures Name Priority Associated [...] documented as of this encounter Care Teams Palletizer Operator Relationship Specialty Start Date End Date Laura Mock MD, DMD [address] [address] [email or web address] PCP - General Internal Medicine 06/04/21 11/11/23 Pcp, Unknown PCP - General 11/12/23 11/16/23 Laura Mock MD, DMD [address] [address] [email or web address] du PCP - General Internal Medicine 11/17/23 12/28/23 Pcp, Unknown PCP - General 02/28/24 03/04/24 Nicole Newell MD [address] [place] [address] [id number] PCP - General 03/05/24 05/17/24 Laura Mock MD, DMD [address] [address] [email or web address] PCP - General Internal Medicine 05/18/24 Artie Meehan MD [address] [place] [address] [place] [address] Internal Medicine 10/26/17 04/23/22 Rina Swenson MD [address] [place] [address] [place] [address] Psychiatry 07/09/17 Laura Mock MD, DMD [address] [address] [email or web address] Partners Attributed Provider 09/01/21 07/03/23 Laura Mock MD, DMD [address] [address] [email or web address] du Insurance Assigned Provider 05/31/23 03/01/24 Jakob Bob MD [address] [place] [address] [place] [address] [email or web address] Cardiology 08/22/23 Jose Cruz MD [address] [place] [address], [address] [address] Cardiology 08/22/23 Laura Mock MD, DMD 1 [facility] [address] [place] [address] [email or web address] Partners Attributed Provider 09/01/21 07/03/23 [facility] [phone]. Consulting Provider 08/22/23 [facility] Connect 12/24/23 03/11/24 Cyril Morales [address] [place] [address] Nurse Practitioner 02/27/24 documented as of this encounter Additional Source Comments The information contained in this document represents components of the legal health record. It is not the complete legal health record.[facility]
--- OUTSIDE RECORDS SUMMARY | 2025-01-17 19:22 | XMS_ITS | Encounter Summary ---
Author Organization [facility] Address [address] [facility] [address] [place] [address] Phone Care Team Providers Care Potato Spotter Name Role Phone Rina Swenson MD Unavailable [...] st Contact Info) Description 07/26/2022 Anti-coag visit [facility] Anticoagulation Clinic 75 [place], [place] [phone] [facility] [address] [place] [address] [email or web address] Social History Tobacco Use Types Packs/Day Years Used Date Smoking Tobacco: Never Smokeless Tobacco: Never Alcohol Use Standard Drinks/Week Comments No 0 (1 standard drink = 0.6 oz pur e alcohol) Education Answer Date Recorded Are you interested in more education? Not on ilam e 06/22/2022 Are you concerned about learning? [...] Description 01/31/2025 1:00 PM EST Office Visit [facility] Cardi[facility] Medicine 32 [facility], 5th Floor, [address] [place] [address] Karena Betancur MD [address] [address] [email or web address] 03/08/2025 9:30 AM EST [facility]mission [facility] [place] 45 [facility] 2nd [place] [address] Irineo Ruff MD 75 [facility] [place] [address] [email or web address] 03/15/2025 Procedure Pass [facility] Endoscopy Department 75 [place] [address] 03/15/2025 7:30 AM EST Hospital Encounter [facility] Endoscopy Department [address] [place] [address] Irineo Ruff MD [address] [place] [address] [place] [address] [email or web address] 03/15/2025 7:30 AM EST - 03/15/2025 8:15 AM EST Surgery [facility] Endoscopy Department [address] [place] [address] Irineo Ruff MD [address] [place] [address] [place] [address] [email or web address] COLONOSCOPY Scheduled Procedures Name Priority [...] documented as of this encounter Care Teams Potato Spotter Relationship Specialty Start Date End Date Laura Mock MD, DMD 1 [facility] [address] [place] [address] [email or web address] du PCP - General Internal Medicine 06/04/21 11/11/23 Pcp, Unknown PCP - General 11/12/23 11/16/23 Laura Mock MD, DMD 1 [facility] [address] [place] [address] [email or web address] du PCP - General Internal Medicine 11/17/23 12/28/23 Pcp, Unknown PCP - General 02/28/24 03/04/24 [place] [address] [place] [address] PCP - General 03/05/24 05/17/24 Laura Mock MD, DMD [address] [address] [email or web address] du PCP - General Internal Medicine 05/18/24 Rina Swenson MD Psychiatry 07/09/17 Laura Mock MD, DMD [address] [address] [email or web address] Partners Attributed Provider 09/01/21 07/03/23 Laura Mock MD, DMD [address] [address] [email or web address] du Insurance Assigned Provider 05/31/23 03/01/24 Jakob Bob MD [address] [place] [address] [place] [address] [email or web address] Cardiology 08/22/23 Jose Cruz MD [address] [place] [address], [facility] [address] [place] [address] Cardiology 08/22/23 Laura Mock MD, DMD 1 [facility] [address] [place] [address] [email or web address] Partners Attributed Provider 09/01/21 07/03/23 [facility] [phone]. Consulting Provider 08/22/23 [facility] Connect 12/24/23 03/11/24 Cyril Morales [facility] [place] [address] Nurse Practitioner 02/27/24 documented as of this encounter Additional Source Comments The information contained in this document represents components of the legal health record. It is not the complete legal health record.[facility]
--- OUTSIDE RECORDS SUMMARY | 2025-01-17 19:22 | XMS_ITS | Encounter Summary ---
Author Organization [facility] Address [facility] [address] [address] Phone Care Team Providers Care General Accountant Name Role Phone Rina Swenson MD Unavailable Laura Mock MD, DMD Primary Car e Provider Laura Mock MD, DMD Unavailable Laura Mock MD, DMD Unavailable Jakob Bob MD Unavailable [phone] Jose Cruz MD Unavailable [phone] Laura Mock MD, DMD Unavailable Pcp, Unknown [...] [facility] 32 [facility], 5th Floor, [address] [place] [address] Karena Betancur MD [address] [address] [email or web address] 03/08/2025 9:30 AM EST Pre-Admission Testing [facility] 45 [facility] 2nd [place] [address] Irineo Ruff MD 75 [place] [address] [email or web address] 03/15/2025 Procedure Pass [facility] Endoscopy Department [address] [place] [address] 03/15/2025 7:30 AM EST Hospital Encounter [facility] Endoscopy Department [address] [place] [address] Irineo Ruff MD 75 [facility] [place] [address] [email or web address] 03/15/2025 7:30 AM EST - 03/15/2025 8:15 AM EST Surgery [facility] Endoscopy Department [address] [place] [address] Irineo Ruff MD [address] [place] [address] [place] [address] [email or web address] COLONOSCOPY Scheduled Procedures [...] as of this encounter Care Teams General Accountant Relationship Specialty Start Date End Date Laura Mock MD, DMD [address] [address] [email or web address] du PCP - General Internal Medicine 06/04/21 11/11/23 Pcp, Unknown PCP - General 11/12/23 11/16/23 Laura Mock MD, DMD [address] [address] [email or web address] du PCP - General Internal Medicine 11/17/23 12/28/23 Pcp, Unknown PCP - General 02/28/24 03/04/24 Nicole Newell MD [address] [place] [id number] PCP - General 03/05/24 05/17/24 Laura Mock MD, DMD [address] [address] [email or web address] du PCP - General Internal Medicine 05/18/24 Rina Swenson MD Psychiatry 07/09/17 Laura Mock MD, DMD [address] [address] [email or web address]. du Partners Attributed Provider 09/01/21 07/03/23 Laura Mock MD, DMD [address] [address] [email or web address] du Insurance Assigned Provider 05/31/23 03/01/24 Jakob Bob MD 75 [facility] [place] [address] [email or web address] Cardiology 08/22/23 Jose Cruz MD [address] [place] [address] Cardiology 08/22/23 Laura Mock MD, DMD [address] [address] [email or web address] du Partners Attributed Provider 09/01/21 07/03/23 [facility] [phone]. Consulting Provider 08/22/23 [facility] Connect 12/24/23 03/11/24 Cyril Morales [address] [place] [address] Nurse Practitioner 02/27/24 documented as of this encounter Additional Source Comments The information contained in this document represents components of the legal health record. It is not the complete legal health record.[facility]
--- OUTSIDE RECORDS SUMMARY | 2025-01-17 19:22 | XMS_ITS | Encounter Summary ---
Author Organization [facility] Address [address] [facility] [address] [place] [address] Phone Care Team Providers Care Public Accountant Name Role Phone Artie Meehan MD Primary Care Provider [phone] Artie Meehan MD Unavailable [phone] Rina Swenson MD Unavailable Laura Mock MD, DMD Primary Car e Provider Laura Mock MD, DMD Unavailable Laura Mock MD, DMD Unavailable Jakob Bob MD Unavailable Jose Cruz MD Unavailable [phone] Laura Mock MD, DMD Unavailable Pcp, Unknown Primary Care Provider UnavailLaura Ascencio MD, DMD Primary Car e Provider Pcp, Unknown Primary Care Provider UnavailNicole Arguello MD Primary Care Provide r Laura Mock MD, DMD Primary Car e Provider Encounter Details Date Type Department Care Team (Late st Contact Info) Description 04/06/2019 Ancillary Orders Virtual Department 30 [place] [address] Artie Meehan MD [address] [place] [address] [place] [address] Menopausal state Social History Tobacco Use Types [...] [facility] 32 [facility], 5th Floor, [address] [place] [address] Karena Betancur MD [address] [address] [email or web address] 03/08/2025 9:30 AM EST Pre-Admission Testing [facility] [address] 2nd [place] [address] Irineo Ruff MD 75 [place] [address] [email or web address] 03/15/2025 Procedure Pass [facility] Endoscopy Department [address] [place] [address] 03/15/2025 7:30 AM EST Hospital Encounter [facility] Endoscopy Department [address] [place] [address] Irineo Ruff MD [address] [place] [address] [place] [address] [email or web address] 03/15/2025 7:30 AM EST - 03/15/2025 8:15 AM EST Surgery [facility] Endoscopy Department [address] [place] [address] Irineo Ruff MD [address] [place] [address] [place] [address] [email or web address] [email or web address] Scheduled Procedures Name [...] as of this encounter Care Teams Public Accountant Relationship Specialty Start Date End Date Artie Meehan MD [address] [place] [address] [place] [address] PCP - General Internal Medicine 10/26/17 06/03/21 Laura Mock MD, DMD [address] [address] [email or web address] PCP - General Internal Medicine 06/04/21 11/11/23 Pcp, Unknown PCP - General 11/12/23 11/16/23 Laura Mock MD, DMD [address] [address] [email or web address] PCP - General Internal Medicine 11/17/23 12/28/23 Pcp, Unknown PCP - General 02/28/24 03/04/24 [place] [address] [address] PCP - General 03/05/24 05/17/24 Laura Mock MD, DMD [address] [address] [email or web address] PCP - General Internal Medicine 05/18/24 Artie Meehan MD [address] [place] [address] [place] [address] Internal Medicine 10/26/17 04/23/22 Rina Swenson MD [address] [place] [address] [address] [place] [address] Psychiatry 07/09/17 Laura Mock MD, DMD [address] [address] [email or web address] Partners Attributed Provider 09/01/21 07/03/23 Laura Mock MD, DMD [address] [address] [email or web address] Insurance Assigned Provider 05/31/23 03/01/24 Jakob Bob MD [address] [place], [place] [address] [place] [address] [email or web address] Cardiology 08/22/23 Jose Cruz MD [address] [place] [address] 301 [place] [address] Cardiology 08/22/23 Laura Mock MD, DMD 1 [facility] [address] [place] [address] [email or web address]. [email or web address] Partners Attributed Provider 09/01/21 07/03/23 [facility] [phone]. Consulting Provider 08/22/23 [facility] Connect 12/24/23 03/11/24 Cyril Morales [address] [place] [address] Nurse Practitioner 02/27/24 documented as of this encounter Additional Source Comments The information contained in this document represents components of the legal health record. It is not the complete legal health record.[facility]
--- OUTSIDE RECORDS SUMMARY | 2025-01-17 19:22 | XMS_ITS | Encounter Summary ---
Author Organization [facility] Address [facility]ly [facility] [employer] [facility] [address] [place] [address] Phone Care Team Providers Care Costing Analyst Name Role Phone Rina Swenson MD Unavailable Laura Mock MD, DMD Primary Car e Provider Laura Mock MD, DMD Unavailable Laura Mock MD, DMD Unavailable Jakob Bob MD Unavailable [phone] Jose Cruz MD Unavailable Laura Mock MD, DMD Unavailable Pcp, Unknown Primary Care Provider UnavailLaura Ascencio MD, DMD Primary Car e Provider Pcp, Unknown Primary Care Provider UnavailNicole Arguello MD Primary Care Provide r Laura Mock MD, DMD Primary Car e Provider Encounter Details Date Type Department Care Team (Late st Contact Info) Description 12/25/2022 Transcribe Orders [facility] Department 30 [place] [address] Laura Mock MD, DMD 1 [facility] [address] [place] [address] [email or web address] Breast screening (Primary Dx) Social History [...] Description 01/31/2025 1:00 PM EST Office Visit [facility] Cardiovascular Medicine 32 [facility], 5th Floor, [address] [place] [address] Karena Betancur MD [address] [address] [email or web address] 03/08/2025 9:30 AM EST Pre-Admission Testing [facility] 45 [facility] 2nd [place] [address] Irineo Ruff MD 75 [facility] [place] [address] [email or web address] 03/15/2025 Procedure Pass [facility] Endoscopy Department 75 [place] [address] 03/15/2025 7:30 AM EST Hospital Encounter [facility] Endoscopy Department [address] [place] [address] Irineo Ruff MD [address] [place] [address] [email or web address] 03/15/2025 7:30 AM EST - 03/15/2025 8:15 AM EST Surgery [facility] Endoscopy Department [address] [place] [address] Irineo Ruff MD [address] [place] [address] [email or web address] COLONOSCOPY Scheduled Procedures Name Priority [...] documented as of this encounter Care Teams Costing Analyst Relationship Specialty Start Date End Date Laura Mock MD, DMD [address] [address] [email or web address] du PCP - General Internal Medicine 06/04/21 11/11/23 Pcp, Unknown PCP - General 11/12/23 11/16/23 Laura Mock MD, DMD [address] [address] [email or web address] PCP - General Internal Medicine 11/17/23 12/28/23 Pcp, Unknown PCP - General 02/28/24 03/04/24 [place] [address] [place] [address] PCP - General 03/05/24 05/17/24 Laura Mock MD, DMD [address] [address] [email or web address] du PCP - General Internal Medicine 05/18/24 Rina Swenson MD Psychiatry 07/09/17 Laura Mock MD, DMD [address] [address] [email or web address] du Partners Attributed Provider 09/01/21 07/03/23 Laura Mock MD, DMD [address] [address] [email or web address] du Insurance Assigned Provider 05/31/23 03/01/24 Jakob Bob MD [address] [place] [address] [email or web address] Cardiology 08/22/23 Jose Cruz MD [address] [place] [address] Cardiology 08/22/23 Laura Mock MD, DMD [address] [address] [email or web address] Partners Attributed Provider 09/01/21 07/03/23 [facility] [phone]. Consulting Provider 08/22/23 [facility] Connect 12/24/23 03/11/24 Cyril Morales [address] [place] [address] Nurse Practitioner 02/27/24 documented as of this encounter Additional Source Comments The information contained in this document represents components of the legal health record. It is not the complete legal health record.[facility]
--- OUTSIDE RECORDS SUMMARY | 2025-01-17 19:22 | XMS_ITS | Encounter Summary ---
Author Organization [facility] Address [address] [place] [address] [place] [address] Phone Care Team Providers Care Adult Parole Officer Name Role Phone Rina Swenson MD Unavailable Laura Mock MD, DMD Primary Car e Provider Laura Mock MD, DMD Unavailable Laura Mock MD, DMD Unavailable Jakob Bob MD Unavailable Jose Cruz MD Unavailable [phone] Laura Mock MD, DMD Unavailable Pcp, Unknown Primary Care Provider UnavailLaura Ascencio MD, DMD Primary Car e Provider Pcp, Unknown Primary Care Provider UnavailNicole Arguello MD Primary Care Provide r Laura Mock MD, DMD Primary Car e Provider Encounter Details Date Type Department Care Team (Late st Contact Info) Description 01/21/2023 Anti-coag visit [facility] Anticoagulation Clinic 75 [place] [address] Purvi Lawler, PharmD 75 [place] [address] [email or web address] Social History Tobacco Use Types [...] [facility] 32 [facility], 5th Floor, [address] [place] [address] Karena Betancur MD [address] [address] [email or web address] 03/08/2025 9:30 AM EST [facility] 45 [facility] 2nd [place] [address] Irineo Ruff MD 75 [facility] [place] [address] [email or web address] 03/15/2025 Procedure Pass [facility] Endoscopy Department 75 [place] [address] 03/15/2025 7:30 AM EST Hospital Encounter [facility] Endoscopy Department [address] [place] [address] Irineo Ruff MD [address] [place] [address] [place] [address] [email or web address] 03/15/2025 7:30 AM EST - 03/15/2025 8:15 AM EST Surgery [facility] Endoscopy Department [address] [place] [address] Irineo Ruff MD [address] [place] [address] [place] [address] [email or web address] COLONOSCOPY Scheduled Procedures Name Priority Associated [...] as of this encounter Care Teams Adult Parole Officer Relationship Specialty Start Date End Date Laura Mock MD, DMD 1 [facility] [address] [place] [address] [email or web address] du PCP - General Internal Medicine 06/04/21 11/11/23 Pcp, Unknown PCP - General 11/12/23 11/16/23 Laura Mock MD, DMD 1 [facility] [address] [place] [address] [email or web address] du PCP - General Internal Medicine 11/17/23 12/28/23 Pcp, Unknown PCP - General 02/28/24 03/04/24 Nicole Newell [place] [address] [place] [address] PCP - General 03/05/24 05/17/24 Laura Mock MD, DMD [address] [place] [address] [address] [email or web address] du PCP - General Internal Medicine 05/18/24 Rina Swenson MD Psychiatry 07/09/17 Laura Mock MD, DMD [address] [place] [address] [address] [email or web address] du Partners Attributed Provider 09/01/21 07/03/23 Laura Mock MD, DMD [address] [place] [address] [address] [email or web address] du Insurance Assigned Provider 05/31/23 03/01/24 Jakob Bob MD [address] [place] [address] [place] [address] [email or web address] Cardiology 08/22/23 Jose Cruz MD [address] [place] [address], [facility] [address] [place] [address] Cardiology 08/22/23 Laura Mock MD, DMD 1 [facility] [address] [place] [address] [email or web address] Partners Attributed Provider 09/01/21 07/03/23 [facility] [phone]. Consulting Provider 08/22/23 [facility] Connect 12/24/23 03/11/24 Cyril Morales [facility] [place] [address] Nurse Practitioner 02/27/24 documented as of this encounter Additional Source Comments The information contained in this document represents components of the legal health record. It is not the complete legal health record.[facility]
--- OUTSIDE RECORDS SUMMARY | 2025-01-17 19:22 | XMS_ITS | Encounter Summary ---
Author Organization [facility] Address 399 [facility] [address] [place] [address] Phone Care Team Providers Care Hat Forming Machine Feeder Name Role Phone Rina Swenson MD Unavailable Laura Mock MD, DMD Primary Car e Provider Laura Mock MD, DMD Unavailable Laura Mock MD, DMD Unavailable Jakob Bob MD Unavailable [phone] Jose Cruz MD Unavailable [phone] Laura Mock MD, DMD Unavailable Pcp, Unknown Primary Care Provider UnavailLauar Ascencio MD, DMD Primary Car e Provider Pcp, Unknown Primary Care Provider UnavailNicole Arguello MD Primary Care Provide r Laura Mock MD, DMD Primary Car e Provider Encounter Details Date Type Department Care Team (Late st Contact Info) Description 12/10/2022 Anti-coag visit [facility] [address] [place] [address] Catherine Hernández, PharmD [email or web address] Social History Tobacco Use Types [...] Description 01/31/2025 1:00 PM EST Office Visit [facility] Cardiovascular Medicine 32 [facility], 5th Floor, [address] [place] [address] Karena Betancur MD [address] [address] [email or web address] 03/08/2025 9:30 AM EST [facility] 45 [facility] 2nd [place] [address] Irineo Ruff MD 75 [facility] [place] [address] [email or web address] 03/15/2025 Procedure Pass [facility] Endoscopy Department [address] [place] [address] 03/15/2025 7:30 AM EST Hospital Encounter [facility] Endoscopy Department [address] [place] [address] Irineo Ruff MD [address] [place] [address] [place] [address] [email or web address] 03/15/2025 7:30 AM EST - 03/15/2025 8:15 AM EST Surgery [facility] Endoscopy Department [address] [place] [address] Irineo Ruff MD [address] [place] [address] [place] [address] [email or web address] [email or web address] Scheduled Procedures [...] documented as of this encounter Care Teams Hat Forming Machine Feeder Relationship Specialty Start Date End Date Laura Mock MD, DMD [address] [address] [email or web address] PCP - General Internal Medicine 06/04/21 11/11/23 Pcp, Unknown PCP - General 11/12/23 11/16/23 Laura Mock MD, DMD 1 [facility] [address] [place] [address] [email or web address] PCP - General Internal Medicine 11/17/23 12/28/23 Pcp, Unknown PCP - General 02/28/24 03/04/24 Nicole Newell MD [address] [place] [address] PCP - General 03/05/24 05/17/24 Laura Mock MD, DMD [address] [address] [email or web address] du PCP - General Internal Medicine 05/18/24 Rina Swenson MD Psychiatry 07/09/17 Laura Mock MD, DMD [address] [address] [email or web address] Partners Attributed Provider 09/01/21 07/03/23 Laura Mock MD, DMD [address] [address] [email or web address] du Insurance Assigned Provider 05/31/23 03/01/24 Jakob Bob MD [address] [place] [address] [place] [address] [email or web address] Cardiology 08/22/23 Jose Cruz MD [address] [place] [address] Cardiology 08/22/23 Laura Mock MD, DMD [address] [address] [email or web address] Partners Attributed Provider 09/01/21 07/03/23 [facility] [phone]. Consulting Provider 08/22/23 [facility] Connect 12/24/23 03/11/24 Cyril Morales [address] [place] [address] Nurse Practitioner 02/27/24 documented as of this encounter Additional Source Comments The information contained in this document represents components of the legal health record. It is not the complete legal health record.[facility]
--- OUTSIDE RECORDS SUMMARY | 2025-01-17 19:22 | XMS_ITS | Encounter Summary ---
Author Organization [facility] Address [address] [employer] [facility] [address] [place] [address] Phone Care Team Providers Care Materials Planning Manager Name Role Phone Artie Meehan MD Primary Care Provider [phone] Artie Meehan MD Unavailable [phone] Rina Swenson MD Unavailable [phone] Laura Mock MD, DMD Primary Car e [...] 07/06/2020 Procedure Pass [facility] [address] [place] [address] Social History Tobacco Use Types Packs/Day Years [...] Description 01/31/2025 1:00 PM EST Office Visit [facility] Cardiovascular Medicine 32 [facility], 5th Floor, [address] [place] [address] Karena Betancur MD [address] [address] [email or web address] 03/08/2025 9:30 AM EST [facility]mission Testing [facility] [address] 2nd [place] [address] Irineo Ruff MD [address] [place] [address] [email or web address] 03/15/2025 Procedure Pass [facility] Endoscopy Department [address] [place] [address] 03/15/2025 7:30 AM EST Hospital Encounter [facility] Endoscopy Department [address] [place] [address] Irineo Ruff MD [address] [place] [address] [place] [address] [email or web address] 03/15/2025 7:30 AM EST - 03/15/2025 8:15 AM EST Surgery [facility] Endoscopy Department [address] [place] [address] Irineo Ruff MD [address] [place] [address] [place] [address] [email or web address] [email or web address] Scheduled Procedures Name Priority [...] documented as of this encounter Care Teams Materials Planning Manager Relationship Specialty Start Date End Date Artie Meehan MD [address] [place] [address] [place] [address] PCP - General Internal Medicine 10/26/17 06/03/21 Laura Mock MD, DMD [address] [address] [email or web address] du PCP - General Internal Medicine 06/04/21 11/11/23 Pcp, Unknown PCP - General 11/12/23 11/16/23 Laura Mock MD, DMD [address] [address] [email or web address] du PCP - General Internal Medicine 11/17/23 12/28/23 Pcp, Unknown PCP - General 02/28/24 03/04/24 Nicole Newell MD [address] [place] [address] PCP - General 03/05/24 05/17/24 Laura Mock MD, DMD [address] [address] [email or web address] du PCP - General Internal Medicine 05/18/24 Artie Meehan MD [address] [place] [address] Dr [address] [place] [address] Internal Medicine 10/26/17 04/23/22 Rina Swenson MD [address] [place] [address] Dr [address] [place] [address] Psychiatry 07/09/17 Laura Mock MD, DMD [address] [address] [email or web address] Partners Attributed Provider 09/01/21 07/03/23 Laura Mock MD, DMD [address] [address] [email or web address] du Insurance Assigned Provider 05/31/23 03/01/24 Jakob Bob MD [address] [place], [place] [address] [place] [address] [email or web address] Cardiology 08/22/23 Jose Cruz MD [address] [place] [address], [address] [place] [address] Cardiology 08/22/23 Laura Mock MD, DMD 1 [facility] [address] [place] [address] [email or web address] Partners Attributed Provider 09/01/21 07/03/23 [facility] [phone]. Consulting Provider 08/22/23 [facility] 12/24/23 03/11/24 Cyril Morales [address] [place] [address] Nurse Practitioner 02/27/24 documented as of this encounter Additional Source Comments The information contained in this document represents components of the legal health record. It is not the complete legal health record.[facility]
--- OUTSIDE RECORDS SUMMARY | 2025-01-17 19:22 | XMS_ITS | Encounter Summary ---
Author Organization [facility] Address [facility] [address] [place] [address] Phone Care Team Providers Care Associate Editor Name Role Phone Artie Meehan MD Unavailable Rina Swenson MD Unavailable Laura Mock MD, DMD Primary Car e Provider Laura Mock MD, DMD Unavailable Laura Mock MD, DMD Unavailable Jakob Bob MD Unavailable [phone] Jose Cruz MD Unavailable [phone] Laura Mock MD, DMD Unavailable Pcp, Unknown Primary Care Provider UnavailLaura Ascencio MD, DMD Primary Car e Provider Pcp, Unknown Primary Care Provider UnavailNicole Arguello MD Primary Care Provide r Laura Mock MD, DMD Primary Car e Provider Encounter Details Date Type Department Care Team (Late st Contact Info) Description 09/17/2021 Anti-coag visit [facility] Cardiovascular [address] [address] Catherine Hernández, UniqueD [email or web address] Social History Tobacco Use [...] Description 01/31/2025 1:00 PM EST Office Visit [facility] [place] Medicine 32 [facility], 5th Floor, [address] [place] [address] Karena Bteancur MD [address] [address] [email or web address] 03/08/2025 9:30 AM EST [facility] [address] [place] [address] 2nd [place] [address] Irineo Ruff MD [address] [place] [address] [email or web address] 03/15/2025 Procedure Pass [facility] Endoscopy Department [address] [place] [address] 03/15/2025 7:30 AM EST Hospital Encounter [facility] Endoscopy Department [address] [place] [address] Irineo Ruff MD [address] [place] [address] [email or web address] 03/15/2025 7:30 AM EST - 03/15/2025 8:15 AM EST Surgery [facility] Endoscopy Department [address] [place] [address] Irineo Ruff MD [address] [place] [address] [place] [address] [email or web address] COLONOSCOPY Scheduled Procedures Name Priority Associated Diagnoses [...] as of this encounter Care Teams Associate Editor Relationship Specialty Start Date End Date Laura Mock MD, DMD [address] [address] [email or web address] PCP - General Internal Medicine 06/04/21 11/11/23 Pcp, Unknown PCP - General 11/12/23 11/16/23 Laura Mock MD, DMD [address] [address] [email or web address] du PCP - General Internal Medicine 11/17/23 12/28/23 Pcp, Unknown PCP - General 02/28/24 03/04/24 [place] [address] [address] PCP - General 03/05/24 05/17/24 Laura Mock MD, DMD [address] [address] [email or web address] du PCP - General Internal Medicine 05/18/24 Artie Meehan MD [address] [place] [address] Dr [address] [place] [address] Internal Medicine 10/26/17 04/23/22 Rina Swenson MD [address] [place] [address] Dr [address] [place] [address] Psychiatry 07/09/17 Laura Mock MD, DMD [address] [address] [email or web address] Attributed Provider 09/01/21 07/03/23 Laura Mock MD, DMD [address] [address] [email or web address] Insurance Assigned Provider 05/31/23 03/01/24 Jakob Bob MD [address] [place] [address] [place] [address] [email or web address] Cardiology 08/22/23 Jose Cruz MD [address] [place] [address] Cardiology 08/22/23 Laura Mock MD, DMD [address] [address] [email or web address] du Partners Attributed Provider 09/01/21 07/03/23 [facility] [phone]. Consulting Provider 08/22/23 [facility] Connect 12/24/23 03/11/24 Cyril Morales [address] [place] [address] Nurse Practitioner 02/27/24 documented as of this encounter Additional Source Comments The information contained in this document represents components of the legal health record. It is not the complete legal health record.[facility]
--- OUTSIDE RECORDS SUMMARY | 2025-01-17 19:22 | XMS_ITS | Encounter Summary ---
Author Organization [facility] Address Count includes the [facility] [address] [place] [address] Phone Care Team Providers Care Horticultural Nursery Assistant Name Role Phone Artie Meehan MD Unavailable [...] st Contact Info) Description 09/07/2021 Anti-coag visit [facility] Anticoagulation Clinic [address] [place] [address] Kenyatta Gamez, PharmD [email or web address] Social History Tobacco Use Types [...] [facility] Medicine [address] [facility], 5th Floor, [address] [place] [address] Karena Betancur MD [address] [address] [email or web address] 03/08/2025 9:30 AM EST [facility]mission [facility] [address] [place] [address] 2nd [place] [address] Irineo Ruff MD [address] [place] [address] [email or web address] 03/15/2025 Procedure Pass [facility] Endoscopy Department [address] [place] [address] 03/15/2025 7:30 AM EST Hospital Encounter [facility] Endoscopy Department [address] [place] [address] Irineo Ruff MD [address] [place] [address] [email or web address] 03/15/2025 7:30 AM EST - 03/15/2025 8:15 AM EST Surgery [facility] Endoscopy Department [address] [place] [address] Irineo Ruff MD [address] [place] [address] [place] [address] [email or web address] COLONOSCOPY Scheduled Procedures Name Priority [...] documented as of this encounter Care Teams Horticultural Nursery Assistant Relationship Specialty Start Date End Date Laura Mock MD, DMD [address] [address] [email or web address] PCP - General Internal Medicine 06/04/21 11/11/23 Pcp, Unknown PCP - General 11/12/23 11/16/23 Laura Mock MD, DMD [address] [address] [email or web address] du PCP - General Internal Medicine 11/17/23 12/28/23 Pcp, Unknown PCP - General 02/28/24 03/04/24 [place] [address] [address] PCP - General 03/05/24 05/17/24 Laura Mock MD, DMD [address] [address] [email or web address] du PCP - General Internal Medicine 05/18/24 Artie Meehan MD [address] [place] [address] Dr [address] [place] [address] Internal Medicine 10/26/17 04/23/22 Rina Swenson MD [address] [place] [address] Dr [address] [place] [address] Psychiatry 07/09/17 Laura Mock MD, DMD [address] [address] [email or web address] du Partners Attributed Provider 09/01/21 07/03/23 Laura Mock MD, DMD [address] [address] [email or web address] Insurance Assigned Provider 05/31/23 03/01/24 Jakob Bob MD [address] [place] [address] [place] [address] [email or web address] Cardiology 08/22/23 Jose Cruz MD [address] [place] [address] Cardiology 08/22/23 Laura Mock MD, DMD [address] [address] [email or web address] Partners Attributed Provider 09/01/21 07/03/23 [facility] [phone]. Consulting Provider 08/22/23 [facility] Connect 12/24/23 03/11/24 Cyril Morales [address] [place] [address] Nurse Practitioner 02/27/24 documented as of this encounter Additional Source Comments The information contained in this document represents components of the legal health record. It is not the complete legal health record.[facility]
--- OUTSIDE RECORDS SUMMARY | 2025-01-17 19:22 | XMS_ITS | Encounter Summary ---
Author Organization [facility] Address [address] [place] [address] Phone Care Team Providers Care Supervisor Fiber Locking Name Role Phone Artie Meehan MD Unavailable Rina Swenson MD Unavailable Laura oMck MD, DMD Primary Car e Provider Laura Mock MD, DMD Unavailable Laura Mock MD, DMD Unavailable Jakob Bob MD Unavailable [phone] Jose Cruz MD Unavailable [phone] Laura Mock MD, DMD Unavailable Pcp, Unknown Primary Care Provider UnavailLaura Ascencio MD, DMD Primary Car e Provider Pcp, Unknown Primary Care Provider UnavailNicole Arguello MD Primary Care Provide r Laura Mock MD, DMD Primary Car e Provider Encounter Details Date Type Department Care Team (Late st Contact Info) Description 09/10/2021 Anti-coag visit [facility] Li, Mengyan, PharmD [address] [place] [address] [email or web address] Social History Tobacco Use Types Packs/Day Years [...] Description 01/31/2025 1:00 PM EST Office Visit [facility] Cardiovascular Medicine 32 [facility], 5th Floor, [address] [place] [address] Karena Betancur MD [address] [address] [email or web address] 03/08/2025 9:30 AM EST [facility]-Admission Testing [facility] 45 [facility] 2nd [place] [address] Irineo Ruff MD [address] [place] [address] [place] [address] [email or web address] 03/15/2025 Procedure Pass [facility] Endoscopy Department [address] [place] [address] 03/15/2025 7:30 AM EST Hospital Encounter [facility] Endoscopy Department [address] [place] [address] Irineo Ruff MD [address] [place] [address] [place] [address] [email or web address] 03/15/2025 7:30 AM EST - 03/15/2025 8:15 AM EST Surgery [facility] Endoscopy Department [address] [place] [address] Irineo Ruff MD [address] [place] [address], [place] [address] [email or web address] COLONOSCOPY Scheduled Procedures Name [...] as of this encounter Care Teams Supervisor Fiber Locking Relationship Specialty Start Date End Date Laura Mock MD, DMD [address] [address] [email or web address] PCP - General Internal Medicine 06/04/21 11/11/23 Pcp, Unknown PCP - General 11/12/23 11/16/23 Laura Mock MD, DMD [address] [address] [email or web address] du PCP - General Internal Medicine 11/17/23 12/28/23 Pcp, Unknown PCP - General 02/28/24 03/04/24 [place] [address] [place] [id number] PCP - General 03/05/24 05/17/24 Laura Mock MD, DMD [address] [address] [email or web address] du PCP - General Internal Medicine 05/18/24 Artie Meehan MD [address] [place] [address] [place] [address] Internal Medicine 10/26/17 04/23/22 Rina Swenson MD [address] [place] [address] [place] [address] Psychiatry 07/09/17 Laura Mock MD, DMD [address] [address] [email or web address] Partners Attributed Provider 09/01/21 07/03/23 Laura Mock MD, DMD [address] [address] [email or web address] Insurance Assigned Provider 05/31/23 03/01/24 Jakob Bob MD [address] [place] [address] [email or web address] Cardiology 08/22/23 Jose Cruz MD [address] [place] [address] Cardiology 08/22/23 Laura Mock MD, DMD [address] [address] [email or web address] Partners Attributed Provider 09/01/21 07/03/23 [facility] [phone]. Consulting Provider 08/22/23 [facility] Connect 12/24/23 03/11/24 Cyril Morales [address] [place] [address] Nurse Practitioner 02/27/24 documented as of this encounter Additional Source Comments The information contained in this document represents components of the legal health record. It is not the complete legal health record.[facility]
--- OUTSIDE RECORDS SUMMARY | 2025-01-17 19:22 | XMS_ITS | Encounter Summary ---
Author Organization [facility] Address [facility] [address] [place] [address] Phone Care Team Providers Care Air Carrier Operations Inspector Name Role Phone Artie Meehan MD Unavailable [...] st Contact Info) Description 09/13/2021 Anti-coag visit [facility] Anticoagulation Clinic [address] [place] [address] Abbie Prieto, PharmD [address] [facility] [address] [place] [address] [email or web address] Social History Tobacco [...] Description 01/31/2025 1:00 PM EST Office [place] [facility] [place] Medicine 32 [facility], 5th Floor, [address] [place] [address] Karena Betancur MD [address] [address] [email or web address] 03/08/2025 9:30 AM EST Pre-Admission Testing [facility] 45 [facility] 2nd [place] [address] Irineo Ruff MD 75 [facility] [place] [address] [email or web address] 03/15/2025 Procedure Pass [facility] Endoscopy Department [address] [place] [address] 03/15/2025 7:30 AM EST Hospital Encounter [facility] Endoscopy Department [address] [place] [address] Irineo Ruff MD 75 [facility] [place] [address] [email or web address] 03/15/2025 7:30 AM EST - 03/15/2025 8:15 AM EST Surgery [facility] Endoscopy Department [address] [place] [address] Irineo Ruff MD [address] [place] [address] [place] [address] [email or web address] COLONOSCOPY Scheduled Procedures Name Priority Associated [...] as of this encounter Care Teams Air Carrier Operations Inspector Relationship Specialty Start Date End Date Laura Mock MD, DMD [address] [address] [email or web address] du PCP - General Internal Medicine 06/04/21 11/11/23 Pcp, Unknown PCP - General 11/12/23 11/16/23 Laura Mock MD, DMD [address] [address] [email or web address] PCP - General Internal Medicine 11/17/23 12/28/23 Pcp, Unknown PCP - General 02/28/24 03/04/24 [place] [address] [place], [place] [phone] PCP - General 03/05/24 05/17/24 Laura Mock MD, DMD [address] [address] [email or web address] du PCP - General Internal Medicine 05/18/24 Artie Meehan MD [address] [place] [address] Dr [address] [place] [address] Internal Medicine 10/26/17 04/23/22 Rina Swenson MD [address] [place] [address] [place] [address] [place] [address] Psychiatry 07/09/17 Laura Mock MD, DMD [address] [address] [email or web address] Partners Attributed Provider 09/01/21 07/03/23 Laura Mock MD, DMD [address] [address] [email or web address] du Insurance Assigned Provider 05/31/23 03/01/24 Jakob Bob MD [address] [place] [address] [place] [address] [email or web address] Cardiology 08/22/23 Jose Cruz MD [address] [place] [address], [address] [address] Cardiology 08/22/23 Laura Mock MD, DMD 1 [facility] [address] [place] [address] [email or web address] Partners Attributed Provider 09/01/21 07/03/23 [facility] [phone]. Consulting Provider 08/22/23 CAROLANN GREWAL Connect 12/24/23 03/11/24 Cyril Morales [address] [place] [address] Nurse Practitioner 02/27/24 documented as of this encounter Additional Source Comments The information contained in this document represents components of the legal health record. It is not the complete legal health record.[facility]
--- OUTSIDE RECORDS SUMMARY | 2025-01-17 19:22 | XMS_ITS | Encounter Summary ---
Author Organization [facility] Address [address] [employer] [facility] [address] [place] [address] Phone Care Team Providers Care Staker Surveying Name Role Phone Artie Meehan MD Primary Care Provider [phone] Artie Meehan MD Unavailable Rina Swenson MD Unavailable Laura Mock MD, DMD Primary Car e Provider Laura Mock MD, DMD Unavailable Laura Mock MD, DMD Unavailable Jakob Bob MD Unavailable [phone] Jose Cruz MD Unavailable [phone] Laura Mock MD, DMD Unavailable Pcp, Unknown Primary Care Provider UnavailLaura Ascencio MD, DMD Primary Car e Provider Pcp, Unknown Primary Care Provider UnavailNicole Arguello MD Primary Care Provide r Laura Mock MD, DMD Primary Car e Provider Encounter Details Date Type Department Care Team (Late st Contact Info) Description 12/16/2019 Procedure Pass [address] [address] Social History Tobacco Use Types Packs/Day Years [...] Description 01/31/2025 1:00 PM EST Office Visit [facility] Cardiovascular Medicine 32 [facility], 5th Floor, [address] [place] [address] Karena Betancur MD [address] [address] [email or web address] 03/08/2025 9:30 AM EST [facility] [address] [place] [address] 2nd [place] [address] Irineo Ruff MD [address] [place] [address] [email or web address] 03/15/2025 Procedure Pass [facility] Endoscopy Department [address] [place] [address] 03/15/2025 7:30 AM EST Hospital Encounter [facility] Endoscopy Department [address] [place] [address] Irineo Ruff MD [address] [place] [address] [email or web address] 03/15/2025 7:30 AM EST - 03/15/2025 8:15 AM EST Surgery [facility] Endoscopy Department [address] [place] [address] Irineo Ruff MD [address] [place] [address] [place] [address] [email or web address] COLONOSCOPY Scheduled Procedures Name [...] documented as of this encounter Care Teams Staker Surveying Relationship Specialty Start Date End Date Artie Meehan MD [address] [place] [address] PCP - General Internal Medicine 10/26/17 06/03/21 Laura Mock MD, DMD [address] [address] [email or web address] PCP - General Internal Medicine 06/04/21 11/11/23 Pcp, Unknown PCP - General 11/12/23 11/16/23 Laura Mock MD, DMD [address] [address] [email or web address] du PCP - General Internal Medicine 11/17/23 12/28/23 Pcp, Unknown PCP - General 02/28/24 03/04/24 [place] [address] [address] PCP - General 03/05/24 05/17/24 Laura Mock MD, DMD [address] [address] [email or web address] du PCP - General Internal Medicine 05/18/24 Artie Meehan MD [address] [place] [address] Dr [address] [place] [address] Internal Medicine 10/26/17 04/23/22 Rina Swenson MD [address] [place] [address] Dr [address] [place] [address] Psychiatry 07/09/17 Laura Mock MD, DMD [address] [address] [email or web address] du Partners Attributed Provider 09/01/21 07/03/23 Laura Mock MD, DMD [address] [address] [email or web address] du Insurance Assigned Provider 05/31/23 03/01/24 Jakob Bob MD [address] [place] [address] [address] [place] [address] [email or web address] Cardiology 08/22/23 Jose Cruz MD [address] [place] [address], [facility] [address] [place] [address] Cardiology 08/22/23 Laura Mock MD, DMD 1 [facility] [address] [place] [address] [email or web address] Partners Attributed Provider 09/01/21 07/03/23 [facility] [phone]. Consulting Provider 08/22/23 [facility] Connect 12/24/23 03/11/24 Cyril Morales [facility] [place] [address] Nurse Practitioner 02/27/24 documented as of this encounter Additional Source Comments The information contained in this document represents components of the legal health record. It is not the complete legal health record.[facility]
--- OUTSIDE RECORDS SUMMARY | 2025-01-17 19:23 | XMS_ITS | Encounter Summary ---
Author Organization [facility] Address [address] [facility] [address] [place] [address] Phone Care Team Providers Care Viscose Cellar Worker Name Role Phone Rina Swenson MD Unavailable Laura Mock MD, DMD Primary Car e Provider Laura Mock MD, DMD Unavailable Laura Mock MD, DMD Unavailable Jakob Bob MD Unavailable Jose Cruz MD Unavailable [phone] Laura Mock MD, DMD Unavailable Pcp, Unknown Primary Care Provider UnavailLaura Ascencio MD, DMD Primary Car e Provider Pcp, Unknown Primary Care Provider UnavailNicole Arguello MD Primary Care Provide r Laura Mock MD, DMD Primary Car e Provider Encounter Details Date Type Department Care Team (Late st Contact Info) Description 05/27/2023 Procedure Pass [facility] Endoscopy Department [address] [place] [address] Social History Tobacco Use Types Packs/Day Years [...] [facility] Cardiovascular Medicine [address], 5th Floor, [address] [place] [address] Karena Betancur MD [address] [address] [email or web address] 03/08/2025 9:30 AM EST Pre-Admission Testing [facility] [address] [facility] 2nd [place] [address] Irineo Ruff MD 75 [place] [address] [email or web address] 03/15/2025 Procedure Pass [facility] Endoscopy Department [address] [place] [address] 03/15/2025 7:30 AM EST Hospital Encounter [facility] Endoscopy Department [address] [place] [address] Irineo Ruff MD 75 [facility] [place] [address] [email or web address] 03/15/2025 7:30 AM EST - 03/15/2025 8:15 AM EST Surgery [facility] Endoscopy Department [address] [place] [address] Irineo Ruff MD [address] [place] [address] [place] [address] [email or web address] COLONOSCOPY Scheduled Procedures Name Priority [...] documented as of this encounter Care Teams Viscose Cellar Worker Relationship Specialty Start Date End Date Laura Mock MD, DMD [address] [address] [email or web address] PCP - General Internal Medicine 06/04/21 11/11/23 Pcp, Unknown PCP - General 11/12/23 11/16/23 Laura Mock MD, DMD [address] [address] [email or web address] PCP - General Internal Medicine 11/17/23 12/28/23 Pcp, Unknown PCP - General 02/28/24 03/04/24 Nicole Newell [place] [id number] [place] [address] PCP - General 03/05/24 05/17/24 Laura Mock MD, DMD 1 [employer] [address] [place] [address] [email or web address] PCP - General Internal Medicine 05/18/24 Rina Swenson MD Psychiatry 07/09/17 Laura Mock MD, DMD [address] [address] [email or web address] Partners Attributed Provider 09/01/21 07/03/23 Laura Mock MD, DMD [address] [address] [email or web address] Insurance Assigned Provider 05/31/23 03/01/24 Jakob Bob MD 75 [facility] [place] [address] [email or web address] Cardiology 08/22/23 Jose Cruz MD [address] [place] [address], [address] [place] [address] Cardiology 08/22/23 Laura Mock MD, DMD [address] [address] [email or web address] Partners Attributed Provider 09/01/21 07/03/23 [facility] [phone]. Consulting Provider 08/22/23 [facility] Connect 12/24/23 03/11/24 Cyril Morales [facility] [place] [address] Nurse Practitioner 02/27/24 documented as of this encounter Additional Source Comments The information contained in this document represents components of the legal health record. It is not the complete legal health record.[facility]
--- OUTSIDE RECORDS SUMMARY | 2025-01-17 19:23 | XMS_ITS | Encounter Summary ---
Author Organization [facility] Address [address] [facility] [address] [place] [address] Phone Care Team Providers Care Chronograph Operator Name Role Phone Artie Meehan MD Primary Care Provider [phone] Artie Meehan MD Unavailable Rina Swenson MD Unavailable Laura Mock MD, DMD Primary Car e Provider Laura Mock MD, DMD Unavailable Laura Mock MD, DMD Unavailable Jakob Bob MD Unavailable [phone] Jose Cruz MD Unavailable [phone] Laura Mock MD, DMD Unavailable Pcp, Unknown Primary Care Provider UnavailLaura Ascencio MD, DMD Primary Car e Provider Pcp, Unknown Primary Care Provider UnavailNicole Arguello MD Primary Care Provide r Laura Mock MD, DMD Primary Car e Provider Encounter Details Date Type Department Care Team (Late st Contact Info) Description 11/29/2017 Transcribe Orders [facility] Main [address] [place] [address] Artie Meehan MD [address] [place] [address] [place] [address] Hypertension, essential (Primary Dx) Social History Tobacco [...] Description 01/31/2025 1:00 PM EST Office Visit [facility] Cardiovascular Medicine [address] [facility], 5th Floor, [address] [place] [address] Karena Betancur MD [address] [address] [email or web address] 03/08/2025 9:30 AM EST Pre-Admission Testing [facility] 45 [facility] 2nd [place] [address] Irineo Ruff MD 75 [place] [address] [email or web address] 03/15/2025 Procedure Pass [facility] Endoscopy Department [address] [place] [address] 03/15/2025 7:30 AM EST Hospital Encounter [facility] Endoscopy Department [address] [place] [address] Irineo Ruff MD 75 [facility] [place] [address] [email or web address] 03/15/2025 7:30 AM EST - 03/15/2025 8:15 AM EST Surgery [facility] Endoscopy Department [address] [place] [address] Irineo Ruff MD [address] [place] [address] [place] [address] [email or web address] [email or web address] Scheduled Procedures Name Priority Associated Diagnoses Date/Ti ak COLONOSCOPY Abnormal colonoscopy 03/15/2025 7:30 AM EST documented as of this encounter Results * (ABNORMAL) Urinalysis (11/29/2017 10:52 AM EDT) COLOR Yellow Yellow [facility] CLARITY Clear [facility] GLUCOSE Negative Negative [facility] BILI Negative Negative [facility] KETONES Negative Negative [facility] SPECIFIC GRAVITY 1.015 1.005 - 1.030 [facility] BLOOD Trace(A) Negative [facility] PH 6.0 5.0 - 8.0 [facility] Protein-UA Negative Negative [facility] NITRITE Negative Negative [facility] Leukocyte esterase, ur Negative Negative [facility] Urine (Urine) 11/29/2017 10: 52 AM EDT 11/29/2017 10:57 AM EDT Artie Meehan MD LAB URINE ORDERABLES Neela l Result [address] [address] * (ABNORMAL) CBC and differential (11/29/2017 10:52 AM EDT) WBC 3.98 3.40 - 11.20 K/uL [facility] RBC 5.32(H) 3.80 - 4.80 M/uL [facility] HGB 15.7(H) 12.0 - 15.0 g/dL [facility] HCT 48.4(H) 36.0 - 46.0 % [facility] PLT 223 130 - 400 K/uL [facility] MCV 91.0 79.0 - 98.0 fL [facility] MCH 29.5 27.0 - 34.8 pg [facility] MCHC 32.4 31.5 - 36.0 g/dL [facility] RDW 13.4 10.8 - 14.6 % [facility] MPV 9.1(L) 9.4 - 12.4 fl [facility] NRBC 0.00 /100 WBCs [facility] ABSOLUTE NRBC 0.00 K/uL [facility] DIFF METHOD Auto [facility] NEUTS 58.8 45.30 - 77.70 % [facility] LYMPHS 26.6 12.30 - 39.70 % [facility] MONOS 10.8 4.10 - 12.80 % [facility] EOS 2.5 0 - 7.2 % [facility] BASOS 1.0 0 - 2.80 % [facility] Granulocytes, immature (%) 0.3 0.0 - 0.9 % [facility] ABSOLUTE NEUTS 2.34 1.40 - 7.70 K/uL [facility] ABSOLUTE LYMPHS 1.06 0.60 - 3.20 K/uL [facility] ABSOLUTE MONOS 0.43 0.11 - 0.59 K/uL [facility] ABSOLUTE EOS 0.10 0.01 - 0.50 K/uL [facility] ABSOLUTE BASOS 0.04 0.00 - 0.08 K/uL [facility] Granulocytes, immature 0.01 0.00 - 0.05 K/uL [facility] Blood 11/29/2017 10:5 2 AM EDT 11/29/2017 10:57 AM EDT us Artie Meehan MD LAB BLOOD BKR ORDERABLES Final Result [address] [address] * (ABNORMAL) Lipid panel (11/29/2017 10:52 AM EDT) HDL 82 mg/dL [facility] Comment: Interpretation: Risk Level Females Decreased >55mg/dL Average 50-55 mg/dL Increased <50 mg/dL CHOLESTEROL 253(H) 0 - 240 mg/dL [facility] TRIGLYCERIDES 83 30 - 160 mg/dL [facility] LDL 154(H) 50 - 129 mg/dL [facility] Comment: LDL levels in terms of risk for coronary heart disease: <100 mg/dL: Optimal 100-129 mg/dL: Near or above optimal 130-159 mg/dL: Borderline high 160-189 mg/dL: High >190 mg/dL: Very High CARDIAC RISK RATIO 3.1(L) 3.3 - 4.4 C [facility] Blood 11/29/2017 10:5 2 AM EDT 11/29/2017 10:57 AM EDT us Artie Meehan MD LAB BLOOD BKR ORDERABLES Final Result [facility] 30 [place] [address] * Comprehensive metabolic panel (11/29/2017 10:52 AM EDT) SODIUM 145 133 - 146 mmol/L [facility] POTASSIUM 4.7 3.3 - 5.1 mmol/L [facility] CHLORIDE 104 96 - 108 mmol/L [facility] CO2 27 21 - 35 mmol/L [facility] BUN 17 6 - 19 mg/dL [facility] CREATININE 0.80 0.5 - 1.5 mg/dL [facility] GLUCOSE 86 70 - 99 mg/dL [facility] ALBUMIN 4.1 3.9 - 4.8 g/dL [facility] TOTAL PROTEIN 6.9 6.5 - 8.0 g/dL [facility] CALCIUM 9.2 8.4 - 10.3 mg/dL [facility] ALKALINE PHOSPHATASE 73 39 - 117 U/L [facility] TOTAL BILIRUBIN 0.5 0.0 - 1.2 mg/dL [facility] AST 19 0 - 37 U/L [facility] ALT 12 0 - 40 U/L [facility] GLOBULIN 2.8 1 - 4.8 g/dL [facility] EGFR 70 >59 mL/min/1.7 3m2 [facility] Comment:If patient is black, multiply result by 1.159. Estimated glomerular filtration rate calculated using the CKD-EPI equation. ANION GAP 19 10 - 20 mmol/L [facility] Blood 11/29/2017 10:5 2 AM EDT 11/29/2017 10:57 AM EDT Artie Meehan MD LAB BLOOD BKR ORDERABLES Final Result Performing Organization Address City/State/[facility] Co de Phone Number [address] [address] documented in this encounter Visit Diagnoses Diagnosis Hypertension, essential- Primary Unspecified essential hypertension Abnormal colonoscopy documented in this encounter Additional Health Concerns Infection Onset Date Last Indicated Resolved Time CoV-Presumed 03/23/2022 03/23/2022 04/13/2022 1:23 AM EST CoV-Risk 11/12/2023 11/12/2023 11/12/2023 5:12 PM EDT COVID-19 11/12/2023 11/12/2023 12/03/2023 1:21 AM EDT documented as of this encounter Care Teams Chronograph Operator Relationship Specialty Start Date End Date Artie Meehan MD [address] [place] [address] [place] [address] PCP - General Internal Medicine 10/26/17 06/03/21 Laura Mock MD, DMD [address] [address] [email or web address] PCP - General Internal Medicine 06/04/21 11/11/23 Pcp, Unknown PCP - General 11/12/23 11/16/23 Laura Mock MD, DMD [address] [address] [email or web address] PCP - General Internal Medicine 11/17/23 12/28/23 Pcp, Unknown PCP - General 02/28/24 03/04/24 Nicole Newell MD [address] [place] [address] PCP - General 03/05/24 05/17/24 Laura Mock MD, DMD [address] [address] [email or web address] PCP - General Internal Medicine 05/18/24 Artie Meehan MD [address] [place] [address] Dr Dior [facility] [place] [address] Internal Medicine 10/26/17 04/23/22 Rina Swenson MD [address] [place] [address] Dr [address] [place] [address] [place] [address] Psychiatry 07/09/17 Laura Mock MD, DMD [address] [address] [email or web address] [employer] Attributed Provider 09/01/21 07/03/23 Laura Mock MD, DMD [address] [address] [email or web address] Insurance Assigned Provider 05/31/23 03/01/24 Jakob Bob MD [address] [place] [address] [address] [place] [address] [email or web address] Cardiology 08/22/23 Jose Cruz MD 22 [facility], [address] [place] [address] Cardiology 08/22/23 Laura Mock MD, DMD 1 [facility] [address] [place] [address] [email or web address] Attributed Provider 09/01/21 07/03/23 [facility] [phone]. Consulting Provider 08/22/23 CAROLANN GREWAL Connect 12/24/23 03/11/24 Cyril Morales [address] [place] [address] Nurse Practitioner 02/27/24 documented as of this encounter Additional Source Comments The information contained in this document represents components of the legal health record. It is not the complete legal health record.[facility]
--- OUTSIDE RECORDS SUMMARY | 2025-01-17 19:23 | XMS_ITS | Encounter Summary ---
Author Organization [facility] Address [address] [facility] [address] [place] [address] Phone Care Team Providers Care Emergency Services Director Name Role Phone Rina Swenson MD Unavailable [phone] Laura Mock MD, DMD Primary Car e Provider Laura Mock MD, DMD Unavailable Laura Mock MD, DMD Unavailable Jakob Bob MD Unavailable Jose Cruz MD Unavailable [phone] Laura Mock MD, DMD Unavailable Pcp, Unknown Primary Care Provider UnavailLaura Ascencio MD, DMD Primary Car e Provider Pcp, Unknown Primary Care Provider UnavailNicole Arguello MD Primary Care Provide r Laura Mock MD, DMD Primary Car e Provider Encounter Details Date Type Department Care Team (Late st Contact Info) Description 05/10/2022 Anti-coag visit [facility] Anticoagulation Clinic [address] [place], [place] [phone] [facility] [address] [place] [address] [email or web address] Social History Tobacco Use Types [...] [facility] Cardi[facility] Medicine 32 [facility], 5th Floor, [address] [place] [address] Karena Betancur MD [address] [address] [email or web address] 03/08/2025 9:30 AM EST Pre-Admission Testing [facility] 45 [facility] 2nd [place] [address] Irineo Ruff MD [address] [place] [address] [email or web address] 03/15/2025 Procedure Pass [facility] Endoscopy Department [address] [place] [address] 03/15/2025 7:30 AM EST Hospital Encounter [facility] Endoscopy Department [address] [place] [address] Irineo Ruff MD [address] [place] [address] [email or web address] 03/15/2025 7:30 AM EST - 03/15/2025 8:15 AM EST Surgery [facility] Endoscopy Department [address] [place] [address] Irineo Ruff MD [address] [place] [address], [place] [address] [email or web address] [email or web address] Scheduled Procedures Name Priority Associated [...] of this encounter Care Teams Emergency Services Director Relationship Specialty Start Date End Date Laura Mock MD, DMD [address] [address] [email or web address] PCP - General Internal Medicine 06/04/21 11/11/23 Pcp, Unknown PCP - General 11/12/23 11/16/23 Laura Mock MD, DMD [address] [address] [email or web address] PCP - General Internal Medicine 11/17/23 12/28/23 Pcp, Unknown PCP - General 02/28/24 03/04/24 [place] [address] [address] PCP - General 03/05/24 05/17/24 Laura Mock MD, DMD [address] [address] [email or web address] PCP - General Internal Medicine 05/18/24 Rina Swenson MD Psychiatry 07/09/17 Laura Mock MD, DMD [address] [address] [email or web address] Partners Attributed Provider 09/01/21 07/03/23 Laura Mock MD, DMD [address] [address] [email or web address] Insurance Assigned Provider 05/31/23 03/01/24 Jakob Bob MD [address] [place] [address] [place] [address] [email or web address] Cardiology 08/22/23 Jose Cruz MD [address] [place] [address] Cardiology 08/22/23 Laura Mock MD, DMD [address] [address] [email or web address] [employer] Attributed Provider 09/01/21 07/03/23 [facility] [phone]. Consulting Provider 08/22/23 [facility] Connect 12/24/23 03/11/24 Cyril Morales [facility] [place] [address] Nurse Practitioner 02/27/24 documented as of this encounter Additional Source Comments The information contained in this document represents components of the legal health record. It is not the complete legal health record.[facility]
--- OUTSIDE RECORDS SUMMARY | 2025-01-17 19:23 | XMS_ITS | Encounter Summary ---
Author Organization [facility] Address [facility] [employer] [address] [address] Phone Care Team Providers Care Drawing Kiln Operator Name Role Phone Rina Swenson MD Unavailable Laura Mock MD, DMD Primary Car e Provider Laura Mock MD, DMD Unavailable Laura Mock MD, DMD Unavailable Jakob Bob MD Unavailable Jose Cruz MD Unavailable [phone] Laura Mock MD, DMD Unavailable Pcp, Unknown [...] [facility] [place] Cardiovascular Medicine 32 [facility], 5th Floor, [address] [place] [address] Karena Betancur MD [address] [address] [email or web address] 03/08/2025 9:30 AM EST Pre-Admission Testing [facility] 45 [facility] 2nd [place] [address] Irineo Ruff MD 75 [place] [address] [email or web address] 03/15/2025 Procedure Pass [facility] Endoscopy Department [address] [place] [address] 03/15/2025 7:30 AM EST Hospital Encounter [facility] Endoscopy Department [address] [place] [address] Irineo Ruff MD 75 [facility] [place] [address] [email or web address] 03/15/2025 7:30 AM EST - 03/15/2025 8:15 AM EST Surgery [facility] Endoscopy Department [address] [place] [address] Irineo Ruff MD [address] [place] [address] [place] [address] [email or web address] COLONOSCOPY Scheduled Procedures [...] documented as of this encounter Care Teams Drawing Kiln Operator Relationship Specialty Start Date End Date Laura Mock MD, DMD [address] [address] [email or web address] PCP - General Internal Medicine 06/04/21 11/11/23 Pcp, Unknown PCP - General 11/12/23 11/16/23 Laura Mock MD, DMD [address] [address] [email or web address] PCP - General Internal Medicine 11/17/23 12/28/23 Pcp, Unknown PCP - General 02/28/24 03/04/24 Nicole Newell MD [address] [place] [id number] PCP - General 03/05/24 05/17/24 Laura Mock MD, DMD [address] [address] [email or web address] PCP - General Internal Medicine 05/18/24 Rina Swenson MD Psychiatry 07/09/17 Laura Mock MD, DMD [address] [address] [email or web address] Attributed Provider 09/01/21 07/03/23 Laura Mock MD, DMD [address] [address] [email or web address] Insurance Assigned Provider 05/31/23 03/01/24 Jakob Bob MD 75 [facility] [place] [address] [email or web address] Cardiology 08/22/23 Jose Cruz MD [address] [place] [address] Cardiology 08/22/23 Laura Mock MD, DMD [address] [address] [email or web address] Attributed Provider 09/01/21 07/03/23 [facility] [phone]. Consulting Provider 08/22/23 [facility] Connect 12/24/23 03/11/24 Cyril Morales [address] [place] [address] Nurse Practitioner 02/27/24 documented as of this encounter Additional Source Comments The information contained in this document represents components of the legal health record. It is not the complete legal health record.[facility]
--- OUTSIDE RECORDS SUMMARY | 2025-01-17 19:23 | XMS_ITS | Encounter Summary ---
Author Organization [facility] Address [address] [employer] [facility] [address] [place] [address] Phone Care Team Providers Care Photographic Laboratory Supervisor Name Role Phone Rina Swenson MD Unavailable Laura Mock MD, DMD Unavailable Jakob Bob MD Unavailable [phone] Jose Cruz MD Unavailable [phone] Laura Mock MD, DMD Primary Car e Provider Pcp, Unknown Primary Care Provider UnavailNicole Arguello MD Primary Care Provide r Laura Mock MD, DMD Primary Car e Provider Encounter Details Date Type Department Care Team (Late st Contact Info) Description 12/04/2023 Procedure Pass [facility] Periop 75 [place] [address] Social History Tobacco Use Types Packs/Day Years [...] [facility] 32 [facility], 5th Floor, [address] [place] [address] Karena Betancur MD [address] [address] [email or web address] 03/08/2025 9:30 AM EST [facility] 45 [facility] 2nd [place] [address] Irineo Ruff MD 75 [facility] [place] [address] [email or web address] 03/15/2025 Procedure Pass [facility] Endoscopy Department [address] [place] [address] 03/15/2025 7:30 AM EST Hospital Encounter [facility] Endoscopy Department [address] [place] [address] Irineo Ruff MD [address] [place] [address] [place] [address] [email or web address] 03/15/2025 7:30 AM EST - 03/15/2025 8:15 AM EST Surgery [facility] Endoscopy Department [address] [place] [address] Irineo Ruff MD [address] [place] [address] [email or web address] COLONOSCOPY Scheduled Procedures Name Priority Associated Diagnoses Date/Ti me COLONOSCOPY Abnormal colonoscopy 03/15/2025 7:30 AM EST documented as of this encounter Visit Diagnoses Not on filedocumented in this encounter Additional Health Concerns Assessment Noted Time PHQ-9 Depression Total Score: 17 023 11:28 AM EST PHQ-2 Depression Total Score: 2 10/10/19 23 11:28 AM EDT documented as of this encounter Care Teams Photographic Laboratory Supervisor Relationship Specialty Start Date End Date Laura Mock MD, DMD [address] [address] [email or web address] PCP - General Internal Medicine 11/17/23 12/28/23 Pcp, Unknown PCP - General 02/28/24 03/04/24 [place] [address] [address] PCP - General 03/05/24 05/17/24 Laura Mock MD, DMD [address] [address] [email or web address] PCP - General Internal Medicine 05/18/24 Rina Swenson MD Psychiatry 07/09/17 Laura Mock MD, DMD 1 [facility] [address] [place] [address] [email or web address] Insurance Assigned Provider 05/31/23 03/01/24 Jakob Bob MD 75 [facility] [place] [address] [email or web address] Cardiology 08/22/23 Jose Cruz MD 22 [facility] [address] [place] [address] Cardiology 08/22/23 [facility] [phone]. Consulting Provider 08/22/23 [facility] Connect 12/24/23 03/11/24 Cyril Morales [address] [place] [address] Nurse Practitioner 02/27/24 documented as of this encounter Additional Source Comments The information contained in this document represents components of the legal health record. It is not the complete legal health record.[facility]
--- OUTSIDE RECORDS SUMMARY | 2025-01-17 19:23 | XMS_ITS | Encounter Summary ---
Author Organization [facility] Address [address] [place] [address] [place] [address] Phone Care Team Providers Care Sap Specialist Name Role Phone Artie Meehan MD Unavailable Rina Swenson MD Unavailable Laura Mock MD, DMD Primary Car e Provider Laura Mock MD, DMD Unavailable Laura Mock MD, DMD Unavailable Jakob Bob MD Unavailable [phone] Jose Cruz MD Unavailable Laura Mock MD, DMD Unavailable Pcp, Unknown Primary Care Provider UnavailLaura Ascencio MD, DMD Primary Car e Provider Pcp, Unknown Primary Care Provider UnavailNicole Arguello MD Primary Care Provide r Laura Mock MD, DMD Primary Car e Provider Encounter Details Date Type Department Care Team (Late st Contact Info) Description 09/17/2021 Procedure Pass [facility] [address] [place] [address] Social History Tobacco Use Types Packs/Day Years [...] [facility] 32 [facility], 5th Floor, [address] [place] [address] Karena Betancur MD [address] [address] [email or web address] 03/08/2025 9:30 AM EST Pre-Admission Testing [facility] 45 [facility] 2nd [place] [address] Irineo Ruff MD [address] [place] [address] [email or web address] 03/15/[address] [facility] Endoscopy Department [address] [place] [address] 03/15/2025 7:30 AM EST Hospital Encounter [facility] Endoscopy Department [address] [place] [address] Irineo Ruff MD [address] [place] [address] [email or web address] 03/15/2025 7:30 AM EST - 03/15/2025 8:[address] [facility] Endoscopy Department [address] [place] [address] Irineo Ruff MD [address] [place] [address] [email or web address] COLONOSCOPY Scheduled Procedures Name Priority Associated [...] documented as of this encounter Care Teams Sap Specialist Relationship Specialty Start Date End Date Laura Mock MD, DMD [address] [address] [email or web address] PCP - General Internal Medicine 06/04/21 11/11/23 Pcp, Unknown PCP - General 11/12/23 11/16/23 Laura Mock MD, DMD [address] [address] [email or web address] PCP - General Internal Medicine 11/17/23 12/28/23 Pcp, Unknown PCP - General 02/28/24 03/04/24 Nicole Newell MD [address] [place] [address] PCP - General 03/05/24 05/17/24 Laura Mock MD, DMD [address] [address] [email or web address] PCP - General Internal Medicine 05/18/24 Artie Meehan MD [address] [place] [address] [place] [address] Internal Medicine 10/26/17 04/23/22 Rina Swenson MD [address] [place] [address] [place] [address] Psychiatry 07/09/17 Laura Mock MD, DMD [address] [address] [email or web address] Attributed Provider 09/01/21 07/03/23 Laura Mock MD, DMD [address] [address] [email or web address] Insurance Assigned Provider 05/31/23 03/01/24 Jakob Bob MD [address] [place] [address] [place] [address] [email or web address] Cardiology 08/22/23 Jose Cruz MD [address] [place] [address], [address] [place] [address] Cardiology 08/22/23 Laura Mock MD, DMD [address] [address] [email or web address] Partners Attributed Provider 09/01/21 07/03/23 [facility] [phone]. Consulting Provider 08/22/23 [facility] Connect 12/24/23 03/11/24 Cyril Morales [address] [place] [address] Nurse Practitioner 02/27/24 documented as of this encounter Additional Source Comments The information contained in this document represents components of the legal health record. It is not the complete legal health record.[facility]
--- OUTSIDE RECORDS SUMMARY | 2025-01-17 19:23 | XMS_ITS | Encounter Summary ---
Author Organization [facility] Address [address] [place] [address] [place] [address] Phone Care Team Providers Care Tangled Yarn Worker Name Role Phone Rina Swenson MD Unavailable Laura Mock MD, DMD Primary Car e Provider Laura Mock MD, DMD Unavailable Laura Mock MD, DMD Unavailable Jakob Bob MD Unavailable [phone] Jose Cruz MD Unavailable Laura Mock MD, DMD Unavailable Pcp, Unknown Primary Care Provider UnavailLaura Ascencio MD, DMD Primary Car e Provider Pcp, Unknown Primary Care Provider UnavailNicole Arguello MD Primary Care Provide r Laura Mock MD, DMD Primary Car e Provider Encounter Details Date Type Department Care Team (Late st Contact Info) Description 03/23/2023 Anti-coag visit [facility] Anticoagulation Clinic 75 [place] [address] Purvi Lawler, PharmD 75 [place] [address] [email or web address] Social History Tobacco Use Types [...] [facility], 5th Floor, [address] [place] [address] Karena Betancur MD [address] [address] [email or web address] 03/08/2025 9:30 AM EST [facility] 45 [facility] 2nd [place] [address] Irineo Ruff MD 75 [facility] [place] [address] [email or web address] 03/15/2025 Procedure Pass [facility] Endoscopy Department 75 [place] [address] 03/15/2025 7:30 AM EST Hospital Encounter [facility] Endoscopy Department [address] [place] [address] Irineo Ruff MD [address] [place] [address] [place] [address] [email or web address] 03/15/2025 7:30 AM EST - 03/15/2025 8:15 AM EST Surgery [facility] Endoscopy Department [address] [place] [address] Irineo Ruff MD [address] [place] [address] [place] [address] [email or web address] [email or web address] Scheduled Procedures Name [...] documented as of this encounter Care Teams Tangled Yarn Worker Relationship Specialty Start Date End Date Laura Mock MD, DMD 1 [facility] [address] [place] [address] [email or web address] PCP - General Internal Medicine 06/04/21 11/11/23 Pcp, Unknown PCP - General 11/12/23 11/16/23 Laura Mock MD, DMD 1 [facility] [address] [place] [address] [email or web address] PCP - General Internal Medicine 11/17/23 12/28/23 Pcp, Unknown PCP - General 02/28/24 03/04/24 [place] [address] [place] [address] PCP - General 03/05/24 05/17/24 Laura Mock MD, DMD [address] [address] [email or web address] PCP - General Internal Medicine 05/18/24 Rina Swenson MD Psychiatry 07/09/17 Laura Mock MD, DMD [address] [address] [email or web address] Partners Attributed Provider 09/01/21 07/03/23 Laura Mock MD, DMD [address] [address] [email or web address] du Insurance Assigned Provider 05/31/23 03/01/24 Jakob Bob MD [address] [place] [address] [place] [address] [email or web address] Cardiology 08/22/23 Jose Cruz MD [address] [place] [address], [facility] [address] [place] [address] Cardiology 08/22/23 Laura Mock MD, DMD 1 [facility] [address] [place] [address] [email or web address] Attributed Provider 09/01/21 07/03/23 [facility] [phone]. Consulting Provider 08/22/23 [facility] Connect 12/24/23 03/11/24 Cyril Morales [facility] [place] [address] Nurse Practitioner 02/27/24 documented as of this encounter Additional Source Comments The information contained in this document represents components of the legal health record. It is not the complete legal health record.[facility]
--- OUTSIDE RECORDS SUMMARY | 2025-01-17 19:23 | XMS_ITS | Encounter Summary ---
Author Organization [facility] Address [email or web address] [place] [address] Phone Care Team Providers Care Binding End Stitcher Name Role Phone Rina Swenson MD Unavailable Jakob Bob MD Unavailable Jose Cruz MD Unavailable Laura Mock MD, DMD Primary Car e Provider Reason for Visit * Reason Onset Date Comments Colonoscopy 10/13/2024 Encounter Details Date Type Department Care Team (Late st Contact Info) Description 10/13/2024 Telephone [facility] [address] 2nd [place] [address] Laura Mock MD, DMD 1 [facility] [address] [place] [address] [email or web address] Colonoscopy Social History Tobacco Use Types [...] [facility] Cardiovascular Medicine 32 [facility], 5th Floor, [address] [place] [address] Karena Betancur MD 55 [facility] [address] [place] [address] [email or web address] 03/08/2025 9:30 AM EST Pre-Admission Testing [facility] 45 [facility] 2nd [place] [address] Irineo Ruff MD [address] [place] [address] [email or web address] 03/15/2025 Procedure Pass [facility] Endoscopy Department [address] [place] [address] 03/15/2025 7:30 AM EST Hospital Encounter [facility] Endoscopy Department [address] [place] [address] Irineo Ruff MD [address] [place] [address] [place] [address] [email or web address] 03/15/2025 7:30 AM EST - 03/15/2025 8:15 AM EST Surgery [facility] Endoscopy Department [address] [place] [address] Irineo Ruff MD [address] [place] [address] [email or web address] COLONOSCOPY Scheduled Procedures Name Priority Associated Diagnoses Date/Ti me COLONOSCOPY Abnormal colonoscopy 03/15/2025 7:30 AM EST documented as of this encounter Visit Diagnoses Not on filedocumented in this encounter Additional Health Concerns Assessment Noted Time PHQ-9 Depression Total Score: 17 023 11:28 AM EST PHQ-2 Depression Total Score: 2 10/10/19 23 11:28 AM EDT documented as of this encounter Care Teams Binding End Stitcher Relationship Specialty Start Date End Date Laura Mock MD, DMD 1 [facility] [address] [place] [address] [email or web address] PCP - General Internal Medicine 05/18/24 Rina Swenson MD Psychiatry 07/09/17 Jakob Bob MD [address] [place] [address] [address] [place] [address] [email or web address] Cardiology 08/22/23 Jose Cruz MD [address] [place] [address], [address] [place] [address] Cardiology 08/22/23 [facility] [phone]. Consulting Provider 08/22/23 Cyril Morales [address] [place] [address] Nurse Practitioner 02/27/24 documented as of this encounter Additional Source Comments The information contained in this document represents components of the legal health record. It is not the complete legal health record.[facility]
--- OUTSIDE RECORDS SUMMARY | 2025-01-17 19:23 | XMS_ITS | Encounter Summary ---
Author Organization [facility] Address [facility] [address] [address] Phone Care Team Providers Care Medical Housekeeper Name Role Phone Rina Swenson MD Unavailable [...] [facility] Cardiovascular Medicine 32 [facility], 5th Floor, [address] [place] [address] Karena Betancur MD [address] [address] [email or web address] 03/08/2025 9:30 AM EST Pre-Admission Testing [facility] 45 [facility] 2nd [place] [address] Irineo Ruff MD 75 [place] [address] [email or web address]@[facility] 03/15/2025 Procedure Pass [facility] Endoscopy Department [address] [place] [address] 03/15/2025 7:30 AM EST Hospital Encounter [facility] Endoscopy Department [address] [place] [address] Irineo Ruff MD 75 [facility] [place] [address] [email or web address] 03/15/2025 7:30 AM EST - 03/15/2025 8:15 AM EST Surgery [facility] Endoscopy Department [address] [place] [address] Irineo Ruff MD [address] [place] [address] [place] [address] [email or web address] COLONOSCOPY Scheduled Procedures Name Priority [...] documented as of this encounter Care Teams Medical Housekeeper Relationship Specialty Start Date End Date Laura Mock MD, DMD [address] [address] [email or web address] PCP - General Internal Medicine 06/04/21 11/11/23 Pcp, Unknown PCP - General 11/12/23 11/16/23 Laura Mock MD, DMD [address] [address] [email or web address] PCP - General Internal Medicine 11/17/23 12/28/23 Pcp, Unknown PCP - General 02/28/24 03/04/24 Nicole Newell MD [address] [place] [id number] PCP - General 03/05/24 05/17/24 Laura Mock MD, DMD [address] [address] [email or web address] PCP - General Internal Medicine 05/18/24 Rina Swenson MD Psychiatry 07/09/17 Laura Mock MD, DMD [address] [address] [email or web address] Partners Attributed Provider 09/01/21 07/03/23 Laura Mock MD, DMD [address] [address] [email or web address] Insurance Assigned Provider 05/31/23 03/01/24 Jakob Bob MD 75 [facility] [place] [address] [email or web address] Cardiology 08/22/23 Jose Cruz MD [address] [place] [address] Cardiology 08/22/23 Laura Mock MD, DMD [address] [address] [email or web address] Partners Attributed Provider 09/01/21 07/03/23 [facility] [phone]. Consulting Provider 08/22/23 [facility] Connect 12/24/23 03/11/24 Cyril Morales [address] [place] [address] Nurse Practitioner 02/27/24 documented as of this encounter Additional Source Comments The information contained in this document represents components of the legal health record. It is not the complete legal health record.[facility]
--- OUTSIDE RECORDS SUMMARY | 2025-01-17 19:23 | XMS_ITS | Encounter Summary ---
Author Organization [facility] Address 399 [facility] [address] [place] [address] Phone Care Team Providers Care Pattern Molder Name Role Phone Rina Swenson MD Unavailable Laura Mock MD, DMD Primary Car e Provider Laura Mock MD, DMD Unavailable Laura Mock MD, DMD Unavailable Jakob Bob MD Unavailable Jose Cruz MD Unavailable [phone] Laura Mock MD, DMD Unavailable Pcp, Unknown Primary Care Provider UnavailLaura Ascencio MD, DMD Primary Car e Provider Pcp, Unknown Primary Care Provider UnavailNicole Arguello MD Primary Care Provide r Laura Mock MD, DMD Primary Car e Provider Encounter Details Date Type Department Care Team (Late st Contact Info) Description 10/26/2022 Anti-coag visit [facility] Anticoagulation Clinic 75 [place], [place] [address] [facility] [address] [place] [address] [email or web address] Social History Tobacco Use [...] Description 01/31/2025 1:00 PM EST Office [facility] Cardiovascular Medicine [address] [facility], 5th Floor, [address] [place] [address] Karena Betancur MD [address] [address] [email or web address] 03/08/2025 9:30 AM EST [facility] 45 [facility] 2nd [place] [address] Irineo Ruff MD 75 [facility] [place] [address] [email or web address] 03/15/2025 Procedure Pass [facility] Endoscopy Department 75 [place] [address] 03/15/2025 7:30 AM EST Hospital Encounter [facility] Endoscopy Department [address] [place] [address] Irineo Ruff MD [address] [place] [address] [place] [address] [email or web address] 03/15/2025 7:30 AM EST - 03/15/2025 8:15 AM EST Surgery [facility] Endoscopy Department [address] [place] [address] Irineo Ruff MD [address] [place] [address] [place] [address] [email or web address] COLONOSCOPY Scheduled [...] as of this encounter Care Teams Pattern Molder Relationship Specialty Start Date End Date Laura Mock MD, DMD 1 [facility] [address] [place] [address] [email or web address] PCP - General Internal Medicine 06/04/21 11/11/23 Pcp, Unknown PCP - General 11/12/23 11/16/23 Laura Mock MD, DMD 1 [facility] [address] [place] [address] [email or web address] PCP - General Internal Medicine 11/17/23 12/28/23 Pcp, Unknown PCP - General 02/28/24 03/04/24 [place] [address] [place] [address] PCP - General 03/05/24 05/17/24 Laura Mock MD, DMD [address] [address] [email or web address] PCP - General Internal Medicine 05/18/24 Rina Swenson MD Psychiatry 07/09/17 Laura Mock MD, DMD [address] [address] [email or web address] Partners Attributed Provider 09/01/21 07/03/23 Laura Mock MD, DMD [address] [address] [email or web address] du Insurance Assigned Provider 05/31/23 03/01/24 Jakob Bob MD [address] [place] [address] [place] [address] [email or web address] Cardiology 08/22/23 Jose Cruz MD [address] [place] [address], [address] [place] [address] Cardiology 08/22/23 Laura Mock MD, DMD 1 [facility] [address] [place] [address] [email or web address] Partners Attributed Provider 09/01/21 07/03/23 [facility] [phone]. Consulting Provider 08/22/23 [facility] Connect 12/24/23 03/11/24 Cyril Morales [facility] [place] [address] Nurse Practitioner 02/27/24 documented as of this encounter Additional Source Comments The information contained in this document represents components of the legal health record. It is not the complete legal health record.[facility]
--- OUTSIDE RECORDS SUMMARY | 2025-01-17 19:23 | XMS_ITS | Encounter Summary ---
Author Organization [facility] Address [facility] kWhOURS [address] [address] Phone Care Team Providers Care Silo Tender Name Role Phone Rina Swenson MD [...] [facility] [address] [facility], 5th Floor, [address] [place] [address] Karena Betancur MD [address] [address] [email or web address] 03/08/2025 9:30 AM EST [facility] [address] [place] [address] 2nd [place] [address] Irineo Ruff MD [address] [place] [address] [email or web address] 03/15/2025 Procedure Pass [facility] Endoscopy Department [address] [place] [address] 03/15/2025 7:30 AM EST Hospital Encounter [facility] Endoscopy Department [address] [place] [address] Irineo Ruff MD [address] [place] [address] [email or web address]@[email or web address] 03/15/2025 7:30 AM EST - 03/15/2025 8:15 AM EST Surgery [facility] Endoscopy Department [address] [place] [address] Irineo Ruff MD [address] [place] [address] [email or web address] .[email or web address] COLONOSCOPY Scheduled Procedures Name Priority Associated Diagnoses [...] as of this encounter Care Teams Silo Tender Relationship Specialty Start Date End Date Laura Mock MD, DMD [address] [address] [email or web address] du PCP - General Internal Medicine 06/04/21 11/11/23 Pcp, Unknown PCP - General 11/12/23 11/16/23 Laura Mock MD, DMD [address] [address] [email or web address] PCP - General Internal Medicine 11/17/23 12/28/23 Pcp, Unknown PCP - General 02/28/24 03/04/24 [place] [address] [address] PCP - General 03/05/24 05/17/24 Laura Mock MD, DMD [address] [address] [email or web address] PCP - General Internal Medicine 05/18/24 Rina Swenson MD Psychiatry 07/09/17 Laura Mock MD, DMD [address] [address] [email or web address] Partners Attributed Provider 09/01/21 07/03/23 Laura Mock MD, DMD [address] [address] [email or web address] du Insurance Assigned Provider 05/31/23 03/01/24 Jakob Bob MD [address] [place] [address] [email or web address] Cardiology 08/22/23 Jose Cruz MD [address] [place] [address] [email or web address] Cardiology 08/22/23 Laura Mock MD, DMD [address] [address] [email or web address] du Partners Attributed Provider 09/01/21 07/03/23 [facility] [phone]. Consulting Provider 08/22/23 [facility] Connect 12/24/23 03/11/24 Cyril Morales [address] [place] [phone] Nurse Practitioner 02/27/24 documented as of this encounter Additional Source Comments The information contained in this document represents components of the legal health record. It is not the complete legal health record.[facility]
--- OUTSIDE RECORDS SUMMARY | 2025-01-17 19:23 | XMS_ITS | Encounter Summary ---
Author Organization [facility] Address [address] [facility] [address] [place] [address] Phone Care Team Providers Care Director Search Marketing Strategies Name Role Phone Rina Swenson MD Unavailable Laura Mock MD, DMD Primary Car e Provider Laura Mock MD, DMD Unavailable Laura Mock MD, DMD Unavailable Jakob Bob MD Unavailable [phone] Jose Cruz MD Unavailable Laura Mock MD, [...] [facility] [place] [address] [place] [address] Social History Tobacco Use Types Packs/Day Years [...] [facility], 5th Floor, [address] [place] [address] Karena Betancur MD [address] [address] [email or web address] 03/08/2025 9:30 AM EST Pre-Admission Testing [facility] [address] [facility] 2nd [place] [address] Irineo Ruff MD [address] [place] [address] [email or web address] 03/15/2025 Procedure Pass [facility] Endoscopy Department [address] [place] [address] 03/15/2025 7:30 AM EST Hospital Encounter [facility] Endoscopy Department [address] [place] [address] Irineo Ruff MD [address] [place] [address] [email or web address]@[facility] 03/15/2025 7:30 AM EST - 03/15/2025 8:15 AM EST Surgery [facility] Endoscopy Department [address] [place] [address] Irineo Ruff MD [address] [place] [address] [place] [address] [email or web address] COLONOSCOPY Scheduled Procedures Name Priority Associated [...] as of this encounter Care Teams Director Search Marketing Strategies Relationship Specialty Start Date End Date Laura Mock MD, DMD [address] [address] [email or web address] PCP - General Internal Medicine 06/04/21 11/11/23 Pcp, Unknown PCP - General 11/12/23 11/16/23 Laura Mock MD, DMD [address] [address] [email or web address] PCP - General Internal Medicine 11/17/23 12/28/23 Pcp, Unknown PCP - General 02/28/24 03/04/24 [place] [address] [address] PCP - General 03/05/24 05/17/24 Laura Mock MD, DMD [address] [address] [email or web address] du PCP - General Internal Medicine 05/18/24 Rina Swenson MD Psychiatry 07/09/17 Laura Mock MD, DMD [address] [address] [email or web address] du Partners Attributed Provider 09/01/21 07/03/23 Laura Mock MD, DMD [address] [address] [email or web address] du Insurance Assigned Provider 05/31/23 03/01/24 Jakob Bob MD 75 [facility] [place] [address] [email or web address] Cardiology 08/22/23 Jose Cruz MD [address] [place] [address], [address] [place] [address] Cardiology 08/22/23 Laura Mock MD, DMD [address] [address] [email or web address] Partners Attributed Provider 09/01/21 07/03/23 [facility] [phone]. Consulting Provider 08/22/23 [facility] Connect 12/24/23 03/11/24 Cyril Morales [address] [place] [address] Nurse Practitioner 02/27/24 documented as of this encounter Additional Source Comments The information contained in this document represents components of the legal health record. It is not the complete legal health record.[facility]
--- OUTSIDE RECORDS SUMMARY | 2025-01-17 19:23 | XMS_ITS | Encounter Summary ---
Author Organization [facility] Address [facility] [employer] [address] [address] Phone Care Team Providers Care Library Serials Assistant Name Role Phone Rina Swenson MD [...] [facility] Cardiovascular Medicine 32 [facility], 5th Floor, [address] [place] [address] Karena Betancur MD [address] [address] FRANK@[email or web address] 03/08/2025 9:30 AM EST Pre-Admission Testing [facility] [address] [place] [address] 2nd [place] [address] Irineo Ruff MD [address] [place] [address] [email or web address]@[facility] 03/15/2025 Procedure Pass [facility] Endoscopy Department [address] [place] [address] 03/15/2025 7:30 AM EST Hospital Encounter [facility] Endoscopy Department [address] [place] [address] Irineo Ruff MD [address] [place] [address] [email or web address]@[facility] 03/15/2025 7:30 AM EST - 03/15/2025 8:15 AM EST Surgery [facility] Endoscopy Department [address] [place] [address] Irineo Ruff MD [address] [place] [address] [email or web address] .[email or web address] COLONOSCOPY Scheduled Procedures Name Priority [...] documented as of this encounter Care Teams Library Serials Assistant Relationship Specialty Start Date End Date Laura Mock MD, DMD [address] [address] [email or web address] du PCP - General Internal Medicine 06/04/21 11/11/23 Pcp, Unknown PCP - General 11/12/23 11/16/23 Laura Mock MD, DMD [address] [address] [email or web address] du PCP - General Internal Medicine 11/17/23 12/28/23 Pcp, Unknown PCP - General 02/28/24 03/04/24 [place] [address] [address] PCP - General 03/05/24 05/17/24 Laura Mock MD, DMD [address] [address] [email or web address] du PCP - General Internal Medicine 05/18/24 Rina Swenson MD Psychiatry 07/09/17 Laura Mock MD, DMD [address] [address] [email or web address]. du Partners Attributed Provider 09/01/21 07/03/23 Lauar Mock MD, DMD [address] [address] [email or web address] du Insurance Assigned Provider 05/31/23 03/01/24 Jakob Bob MD [address] [place] [address] [email or web address] Cardiology 08/22/23 Jose Cruz MD [address] [place] [address] [email or web address] Cardiology 08/22/23 Laura Mock MD, DMD [address] [address] [email or web address] du Partners Attributed Provider 09/01/21 07/03/23 [facility] [phone]. Consulting Provider 08/22/23 [facility] Connect 12/24/23 03/11/24 Cyril Morales [address] [place] [phone] Nurse Practitioner 02/27/24 documented as of this encounter Additional Source Comments The information contained in this document represents components of the legal health record. It is not the complete legal health record.[facility]
--- OUTSIDE RECORDS SUMMARY | 2025-01-17 19:23 | XMS_ITS | Encounter Summary ---
Author Organization [facility] Address [address] [address] Phone Care Team Providers Care Director Informatics Name Role Phone Rina Swenson MD Unavailable [...] st Contact Info) Description 10/06/2022 Anti-coag visit [facility] Anticoagulation Clinic 75 [place] [address] Abbie Prieto, PharmD [address] [place] [address] [email or web address] Social History Tobacco Use Types [...] [facility] Cardiovascular Medicine 32 [facility], 5th Floor, [address] [place] [address] Karena Betancur MD 55 [facility] [address] [place] [address] [email or web address] 03/08/2025 9:30 AM EST [facility] [address] [facility] 2nd [place] [address] Irineo Ruff MD [address] [facility] [place] [address] WALI@[email or web address] 03/15/2025 Procedure Pass [facility] Endoscopy Department 75 [place] [address] 03/15/2025 7:30 AM EST Hospital Encounter [facility] Endoscopy Department [address] [place] [address] Irineo Ruff MD [address] [place] [address] [place] [address] WALI@[email or web address] 03/15/2025 7:30 AM EST - 03/15/2025 8:15 AM EST Surgery [facility] Endoscopy Department [address] [place] [address] Irineo Ruff MD [address] [place] [address] [place] [address] [email or web address]@[email or web address] COLONOSCOPY Scheduled Procedures Name Priority Associated Diagnoses [...] as of this encounter Care Teams Director Informatics Relationship Specialty Start Date End Date Laura Mock MD, DMD 1 [facility] [address] [place] [address] [email or web address] PCP - General Internal Medicine 06/04/21 11/11/23 Pcp, Unknown PCP - General 11/12/23 11/16/23 Laura Mock MD, DMD 1 [facility] [address] [place] [address] [email or web address] du PCP - General Internal Medicine 11/17/23 12/28/23 Pcp, Unknown PCP - General 02/28/24 03/04/24 [place] [address] [place] [address] PCP - General 03/05/24 05/17/24 Laura Mock MD, DMD [address] [address] [email or web address] du PCP - General Internal Medicine 05/18/24 Rina Swenson MD Psychiatry 07/09/17 Laura Mock MD, DMD [address] [address] [email or web address] du Partners Attributed Provider 09/01/21 07/03/23 Laura Mock MD, DMD [address] [address] [email or web address] du Insurance Assigned Provider 05/31/23 03/01/24 Jakob Bob MD [address] [place] [address] [place] [address] [email or web address] Cardiology 08/22/23 Jose Cruz MD [address] [place] [address], [address] [address] Cardiology 08/22/23 Laura Mock MD, DMD 1 [facility] [address] [place] [address] [email or web address] Partners Attributed Provider 09/01/21 07/03/23 [facility] [phone]. Consulting Provider 08/22/23 [facility] Connect 12/24/23 03/11/24 Cyril Morales [address] [place] [address] Nurse Practitioner 02/27/24 documented as of this encounter Additional Source Comments The information contained in this document represents components of the legal health record. It is not the complete legal health record.[facility]
--- OUTSIDE RECORDS SUMMARY | 2025-01-17 19:23 | XMS_ITS | Encounter Summary ---
Author Organization [facility] Address Critical access hospital [employer] [facility] [address] [place] [address] Phone Care Team Providers Care Gas Technician Name Role Phone Artie Meehan MD Unavailable Rina Swenson MD Unavailable [phone] Laura Mock MD, DMD Primary Car e Provider Laura Mock MD, DMD Unavailable Laura Mock MD, DMD Unavailable Jakob Bob MD Unavailable Jose Cruz MD Unavailable [phone] Laura Mcok MD, DMD Unavailable Pcp, Unknown Primary Care Provider UnavailLaura Ascencio MD, DMD Primary Car e Provider Pcp, Unknown Primary Care Provider UnavailNicole Arguello MD Primary Care Provide r Laura Mock MD, DMD Primary Car e Provider Encounter Details Date Type Department Care Team (Late st Contact Info) Description 08/07/2021 Anti-coag visit [facility] Anticoagulation Clinic [address] [place] [address] Kenyatta Gamez, PharmD [email or web address] Social History Tobacco Use Types [...] Description 01/31/2025 1:00 PM EST Office Visit [facility] Cardiovascular Medicine 32 [facility], 5th Floor, [address] [place] [address] Karena Betancur MD [address] [address] FRANK@[email or web address] 03/08/2025 9:30 AM EST [facility]-Admission [facility] [address] [place] [address] 2nd [place] [address] Irineo Ruff MD [address] [place] [address] [email or web address] 03/15/2025 Procedure Pass [facility] Endoscopy Department [address] [place] [address] 03/15/2025 7:30 AM EST Hospital Encounter [facility] Endoscopy Department [address] [place] [address] Irineo Ruff MD [address] [place] [address] [email or web address] 03/15/2025 7:30 AM EST - 03/15/2025 8:15 AM EST Surgery [facility] Endoscopy Department [address] [place] [address] Irineo Ruff MD [address] [place] [address] [place] [address] [email or web address] COLONOSCOPY Scheduled Procedures Name Priority Associated [...] as of this encounter Care Teams Gas Technician Relationship Specialty Start Date End Date Laura Mock MD, DMD [address] [address] [email or web address] PCP - General Internal Medicine 06/04/21 11/11/23 Pcp, Unknown PCP - General 11/12/23 11/16/23 Laura Mock MD, DMD [address] [address] [email or web address] du PCP - General Internal Medicine 11/17/23 12/28/23 Pcp, Unknown PCP - General 02/28/24 03/04/24 [place] [address] [address] PCP - General 03/05/24 05/17/24 Laura Mock MD, DMD [address] [address] [email or web address] du PCP - General Internal Medicine 05/18/24 Artie Meehan MD [address] [place] [address] Dr [address] [place] [address] Internal Medicine 10/26/17 04/23/22 Rina Swenson MD [address] [place] [address] Dr [address] [place] [address] Psychiatry 07/09/17 Laura Mock MD, DMD [address] [address] [email or web address] Partners Attributed Provider 09/01/21 07/03/23 Laura Mock MD, DMD [address] [address] [email or web address] Insurance Assigned Provider 05/31/23 03/01/24 Jakob Bob MD [address] [place] [address] [place] [address] [email or web address] Cardiology 08/22/23 Jose Cruz MD [address] [place] [address] Cardiology 08/22/23 Laura Mock MD, DMD [address] [address] [email or web address] Partners Attributed Provider 09/01/21 07/03/23 [facility] [phone]. Consulting Provider 08/22/23 [facility] Connect 12/24/23 03/11/24 Cyril Morales [address] [place] [address] Nurse Practitioner 02/27/24 documented as of this encounter Additional Source Comments The information contained in this document represents components of the legal health record. It is not the complete legal health record.[facility]
--- OUTSIDE RECORDS SUMMARY | 2025-01-17 19:23 | XMS_ITS | Encounter Summary ---
Author Organization [facility] Address [address] [place] [address] [place] [address] Phone Care Team Providers Care Respiratory Therapy Instructor Name Role Phone Rina Swenson MD Unavailable [phone] Laura Mock MD, DMD Primary Car e Provider Laura Mock MD, DMD Unavailable Laura Mock MD, DMD Unavailable Jakob Bob MD Unavailable [phone] Jose Cruz MD Unavailable Laura Mock MD, DMD Unavailable Pcp, Unknown Primary Care Provider UnavailLaura Ascencio MD, DMD Primary Car e Provider Pcp, Unknown Primary Care Provider UnavailNicole Arguello MD Primary Care Provide r Laura Mock MD, DMD Primary Car e Provider Encounter Details Date Type Department Care Team (Late st Contact Info) Description 04/25/2022 Anti-coag visit [facility] Anticoagulation Clinic [address] [place] [id number] Kenyatta [email or web address] Social History Tobacco Use Types Packs/Day [...] Description 01/31/2025 1:00 PM EST Office Visit [facility] Cardiovascular Medicine 32 [facility], 5th Floor, [address] [place] [address] Karena Betancur MD [address] [address] FRANK@[email or web address] 03/08/2025 9:30 AM EST [facility] 45 [facility] 2nd [place] [address] Irineo Ruff MD [address] [place] [address] WALI@[facility] 03/15/2025 Procedure Pass [facility] Endoscopy Department [address] [place] [address] 03/15/2025 7:30 AM EST Hospital Encounter [facility] Endoscopy Department [address] [place] [address] Irineo Ruff MD [address] [place] [address] WALI@[facility] 03/15/2025 7:30 AM EST - 03/15/2025 8:15 AM EST Surgery [facility] Endoscopy Department [address] [place] [address] Irineo Ruff MD [address] [place] [address] [place] [address] [email or web address] COLONOSCOPY Scheduled Procedures Name Priority [...] documented as of this encounter Care Teams Respiratory Therapy Instructor Relationship Specialty Start Date End Date Laura Mock MD, DMD [address] [address] [email or web address] PCP - General Internal Medicine 06/04/21 11/11/23 Pcp, Unknown PCP - General 11/12/23 11/16/23 Laura Mock MD, DMD [address] [address] [email or web address] du PCP - General Internal Medicine 11/17/23 12/28/23 Pcp, Unknown PCP - General 02/28/24 03/04/24 Nicole [place] MD [address] [place] [address] PCP - General 03/05/24 05/17/24 Laura Mock MD, DMD [address] [address] [email or web address] du PCP - General Internal Medicine 05/18/24 Rina Swenson MD Psychiatry 07/09/17 Laura Mock MD, DMD [address] [address] [email or web address] Partners Attributed Provider 09/01/21 07/03/23 Laura Mock MD, DMD [address] [address] [email or web address] du Insurance Assigned Provider 05/31/23 03/01/24 Jakob Bob MD [address] [place] [address] [email or web address] Cardiology 08/22/23 Jose Cruz MD [address] [place] [address] Cardiology 08/22/23 Laura Mock MD, DMD [address] [address] [email or web address] [employer] Attributed Provider 09/01/21 07/03/23 [facility] [phone]. Consulting Provider 08/22/23 [facility] Connect 12/24/23 03/11/24 Cyril Morales [address] [place] [phone] Nurse Practitioner 02/27/24 documented as of this encounter Additional Source Comments The information contained in this document represents components of the legal health record. It is not the complete legal health record.[facility]
--- OUTSIDE RECORDS SUMMARY | 2025-01-17 19:23 | XMS_ITS | Encounter Summary ---
Author Organization [facility] Address [facility] [employer] [address] [address] Phone Care Team Providers Care Autistic Teacher Name Role Phone Rina Swenson MD Unavailable Laura Mock MD, DMD Primary Car e Provider Laura Mock MD, DMD Unavailable Laura Mock MD, DMD Unavailable Jakob Bob MD Unavailable [phone] Jose Cruz MD Unavailable Laura Mock MD, [...] [facility] 32 [facility], 5th Floor, [address] [place] [address] Karena Betancur MD [address] [address] [email or web address] 03/08/2025 9:30 AM EST Pre-Admission Testing [facility] 45 [facility] 2nd [place] [address] Irineo Ruff MD 75 [place] [address] [email or web address] 03/15/2025 Procedure Pass [facility] Endoscopy Department [address] [place] [address] 03/15/2025 7:30 AM EST Hospital Encounter [facility] Endoscopy Department [address] [place] [address] Irineo Ruff MD 75 [facility] [place] [address] [email or web address] 03/15/2025 7:30 AM EST - 03/15/2025 8:15 AM EST Surgery [facility] Endoscopy Department [address] [place] [address] Irineo Ruff MD [address] [place] [address] [place] [address] [email or web address] COLONOSCOPY Scheduled Procedures Name Priority [...] documented as of this encounter Care Teams Autistic Teacher Relationship Specialty Start Date End Date Laura Mock MD, DMD [address] [address] [email or web address] PCP - General Internal Medicine 06/04/21 11/11/23 Pcp, Unknown PCP - General 11/12/23 11/16/23 Laura Mock MD, DMD [address] [address] [email or web address] PCP - General Internal Medicine 11/17/23 12/28/23 Pcp, Unknown PCP - General 02/28/24 03/04/24 Nicole Newell MD [address] [place] [address] [id number] PCP - General 03/05/24 05/17/24 Laura Mock MD, DMD [address] [address] [email or web address] PCP - General Internal Medicine 05/18/24 Rina Swenson MD Psychiatry 07/09/17 Laura Mock MD, DMD [address] [address] [email or web address] Partners Attributed Provider 09/01/21 07/03/23 Laura Mock MD, DMD [address] [address] [email or web address] du Insurance Assigned Provider 05/31/23 03/01/24 Jakob Bob MD [address] [facility] [place] [address] [email or web address] Cardiology 08/22/23 Jose Cruz MD [address] [place] [address] Cardiology 08/22/23 Laura Mock MD, DMD [address] [address] [email or web address] Partners Attributed Provider 09/01/21 07/03/23 [facility] [phone]. Consulting Provider 08/22/23 [facility] Connect 12/24/23 03/11/24 Cyril Morales [address] [place] [address] Nurse Practitioner 02/27/24 documented as of this encounter Additional Source Comments The information contained in this document represents components of the legal health record. It is not the complete legal health record.[facility]
--- OUTSIDE RECORDS SUMMARY | 2025-01-17 19:23 | XMS_ITS | Encounter Summary ---
Author Organization [facility] Address [address] [facility] [address] [place] [address] Phone Care Team Providers Care Shoe Cleaner Name Role Phone Artie Meehan MD Primary Care Provider [phone] Artie Meehan MD Unavailable Rina Swenson MD Unavailable Laura Mock MD, DMD Primary Car e Provider Laura Mock MD, DMD Unavailable Laura Mock MD, DMD Unavailable Jakob Bob MD Unavailable [phone] Jose Cruz MD Unavailable [phone] Laura Mock MD, DMD Unavailable Pcp, Unknown Primary Care Provider UnavailLaura Ascencio MD, DMD Primary Car e Provider Pcp, Unknown Primary Care Provider UnavailNicole Arguello MD Primary Care Provide r Laura Mock MD, DMD Primary Car e Provider Encounter Details Date Type Department Care Team (Late st Contact Info) Description 05/03/2021 Procedure Pass [facility] [address] [place] [address] Social History Tobacco Use Types Packs/Day Years [...] [facility] 32 [facility], 5th Floor, [address] [place] [address] Karena Betancur MD [address] [address] [email or web address] 03/08/2025 9:30 AM EST [facility] 45 [facility] 2nd [place] [address] Irineo Ruff MD [address] [place] [address] [email or web address] 03/15/2025 Procedure Pass [facility] Endoscopy Department [address] [place] [address] 03/15/2025 7:30 AM EST Hospital Encounter [facility] Endoscopy Department [address] [place] [address] Irineo Ruff MD [address] [place] [address] [email or web address] 03/15/2025 7:30 AM EST - 03/15/2025 8:15 AM EST Surgery [facility] Endoscopy Department [address] [place] [address] Irineo Ruff MD [address] [place] [address] [place] [address] [email or web address] [email or web address] Scheduled Procedures Name Priority [...] documented as of this encounter Care Teams Shoe Cleaner Relationship Specialty Start Date End Date Artie Meehan MD [address] [place] [address] [place] [address] PCP - General Internal Medicine 10/26/17 06/03/21 Laura Mock MD, DMD [address] [address] [email or web address] PCP - General Internal Medicine 06/04/21 11/11/23 Pcp, Unknown PCP - General 11/12/23 11/16/23 Laura Mock MD, DMD [address] [address] [email or web address] PCP - General Internal Medicine 11/17/23 12/28/23 Pcp, Unknown PCP - General 02/28/24 03/04/24 [place] [address] [address] PCP - General 03/05/24 05/17/24 Laura Mock MD, DMD [address] [address] [email or web address] du PCP - General Internal Medicine 05/18/24 Artie Meehan MD [address] [place] [address] Dr [address] [place], [place] [address] [address] Internal Medicine 10/26/17 04/23/22 Rina Swenson MD [address] [place] [address] Dr [address] [place] [address] Psychiatry 07/09/17 Laura Mock MD, DMD [address] [address] [email or web address] Partners Attributed Provider 09/01/21 07/03/23 Laura Mock MD, DMD [address] [address] [email or web address] Insurance Assigned Provider 05/31/23 03/01/24 Jakob Bob MD [address] [place] [address] [place] [address] [email or web address] Cardiology 08/22/23 Jose Cruz MD [address] [place] [address], [address] [place] [address] Cardiology 08/22/23 Laura Mock MD, DMD 1 [facility] [address] [place] [address] [email or web address] Partners Attributed Provider 09/01/21 07/03/23 [facility] [phone]. Consulting Provider 08/22/23 [facility] Connect 12/24/23 03/11/24 Cyril Morales [address] [place] [address] Nurse Practitioner 02/27/24 documented as of this encounter Additional Source Comments The information contained in this document represents components of the legal health record. It is not the complete legal health record.[facility]
--- OUTSIDE RECORDS SUMMARY | 2025-01-17 19:23 | XMS_ITS | Encounter Summary ---
Author Organization [facility] Address [address] [place] [address] [place] [address] Phone Care Team Providers Care Time Lock Expert Name Role Phone Rina Swenson MD Unavailable Laura Mock MD, DMD Primary Car e Provider Laura Mock MD, DMD Unavailable Laura Mock MD, DMD Unavailable Jakob Bob MD Unavailable [phone] Jose Cruz MD Unavailable Laura Mock MD, DMD Unavailable Pcp, Unknown Primary Care Provider UnavailLaura Ascencio MD, DMD Primary Car e Provider Pcp, Unknown Primary Care Provider UnavailNicole Arguello MD Primary Care Provide r Laura Mock MD, DMD Primary Car e Provider Encounter Details Date Type Department Care Team (Late st Contact Info) Description 10/29/2022 Anti-coag visit [facility] Cardiovascular Health [address] [place] [address] Catherine Hernández, PharmD [email or web address] Social History Tobacco Use Types Packs/Day [...] [facility] Medicine 32 [facility], 5th Floor, [address] [place] [address] Karena Betancur MD [address] [address] [email or web address] 03/08/2025 9:30 AM EST [facility] 45 [facility] 2nd [place] [address] Irineo Ruff MD 75 [facility] [place] [address] [email or web address] 03/15/2025 Procedure Pass [facility] Endoscopy Department [address] [place] [address] 03/15/2025 7:30 AM EST Hospital Encounter [facility] Endoscopy Department [address] [place] [address] Irineo Ruff MD [address] [place] [address] [place] [address] [email or web address] 03/15/2025 7:30 AM EST - 03/15/2025 8:15 AM EST Surgery [facility] Endoscopy Department [address] [place] [address] Irineo Ruff MD [address] [place] [address] [place] [address] [email or web address] COLONOSCOPY Scheduled Procedures Name Priority Associated [...] documented as of this encounter Care Teams Time Lock Expert Relationship Specialty Start Date End Date Laura Mock MD, DMD [address] [address] [email or web address] PCP - General Internal Medicine 06/04/21 11/11/23 Pcp, Unknown PCP - General 11/12/23 11/16/23 Laura Mock MD, DMD 1 [facility] [address] [place] [address] [email or web address] du PCP - General Internal Medicine 11/17/23 12/28/23 Pcp, Unknown PCP - General 02/28/24 03/04/24 Nicole Newell MD [address] [place] [address] PCP - General 03/05/24 05/17/24 Laura Mock MD, DMD [address] [address] [email or web address] du PCP - General Internal Medicine 05/18/24 Rina Swenson MD Psychiatry 07/09/17 Laura Mock MD, DMD [address] [address] [email or web address]. du Partners Attributed Provider 09/01/21 07/03/23 Laura Mock MD, DMD [address] [address] [email or web address] du Insurance Assigned Provider 05/31/23 03/01/24 Jakob Bob MD [address] [place] [address] [place] [address] [email or web address] Cardiology 08/22/23 Jose Cruz MD [address] [place] [address] Cardiology 08/22/23 Laura Mock MD, DMD [address] [address] [email or web address]. du Partners Attributed Provider 09/01/21 07/03/23 [facility] [phone]. Consulting Provider 08/22/23 [facility] Connect 12/24/23 03/11/24 Cyril Morales [address] [place] [address] Nurse Practitioner 02/27/24 documented as of this encounter Additional Source Comments The information contained in this document represents components of the legal health record. It is not the complete legal health record.[facility]
--- OUTSIDE RECORDS SUMMARY | 2025-01-17 19:23 | XMS_ITS | Clinical Summary ---
Author Organization [facility] Address [address] [place] [address] Phone Care Team Providers Care Talent Acquisition Sourcer Name Role Phone Rina Swenson MD Unavailable [...] mycobacterial disease, followed by thoracic team at [facility]; has chronic changes on CT No longer [...] given a the option to go to [facility] Coumadin clinic or to go back to [facility] where she has been a patient [...] Type Department Care Team Description 12/30/2024 Telephone [facility] [address] 2nd [place] [address] Laura Mock MD, DMD Medication Question from Last 3 Months Immunizations Immunization Administration [...] [facility] Cardi[facility] Medicine 32 [facility], 5th Floor, [address] [place] [address] Karena Betancur MD [address] [address] [email or web address] 03/08/2025 9:30 AM EST Pre-Admission Testing [facility] 45 [facility] 2nd [place] [address] Irineo Ruff MD 75 [place] [address] [email or web address] 03/15/2025 Procedure Pass [facility] Endoscopy Department [address] [place] [address] 03/15/2025 7:30 AM EST Hospital Encounter [facility] Endoscopy Department [address] [place] [address] Irineo Ruff MD 75 [facility] [place] [address] [email or web address] 03/15/2025 7:30 AM EST - 03/15/2025 8:15 AM EST Surgery [facility] Endoscopy Department [address] [place] [address] Irineo Ruff MD [address] [place] [address], [place] [address] [email or web address] COLONOSCOPY Scheduled Procedures Name Priority Associated Diagnoses Date/Ti me COLONOSCOPY Abnormal colonoscopy 03/15/2025 7:30 AM EST Health Maintenance Due Date Last Done Comments Adult Td,Tdap Booster 1938 FIT TEST 10/29/1983 FOBT 10/29/1983 SIGMOIDOSCOPY 10/29/1983 VIRTUAL COLONOSCOPY 10/29/1983 RSV VACCINE (1 - 1-dose 75+ series) 2013 COLONOSCOPY 07/09/2019 07/08/2014, 06/24/2014 COLORECTAL CANCER SCREENING 05/16/2022 DEPRESSION SCREENING 10/10/2023 10/09/2022, 04/25/19 COVID-19 VACCINE ( season) 2024 02/20/2024, 11/08/2022, [...] this topic Medical Devices Implanted Type Area Planer Tailer Device Identifier Shelf Expiration Date Model / Serial / Lot St Drew Aortic Valve 23mm-04/19/2002 Implanted:04/19/19 03 (Quantity not on file) Description:Per OP report fr om 04/19/02: Pt has a 23mm [employer] Drew Aortic Valve replacement Per shipping inspector: cond to 1.5T and 3T (see scanned [...] EDT) SODIUM 139 136 - 145 mmol/L [facility] POTASSIUM 4.8 3.4 - 5.1 mmol/L [facility] CHLORIDE 100 98 - 107 mmol/L [facility] CO2 28 22 - 31 mmol/L [facility] BUN 18 6 - 23 mg/dL [facility] CREATININE 0.71 0.50 - 1.20 mg/dL [facility] GLUCOSE 94 70 - 100 mg/dL [facility] CALCIUM 9.6 8.8 - 10.7 mg/dL [facility] EGFR 83 >59 mL/min/1.7 3m2 [facility] Comment:Estimated glomerular filtration rate calculated using the CKD-EPI refit equation. ANION GAP 11 7 - 17 mmol/L [facility] Blood 12/04/2023 1:58 PM EDT 12/04/2023 2:02 PM EDT us Jim Zacarias MD LAB BLOOD BKR ORDERA BLES Final Result Performing Organization Address City/State/[facility] Co de Phone Number [facility] [address] [place] [address] * BD DXA AXIAL (SPINE) WITH HIP [...] bone mineral density was calculated at 0.409 gm/ck9rmxg a T- score of -4 falling within [...] Maintenance Insurance MEDICARE PART A & B Adeze MEDEX SUPPLEMENT MEDICARE PART A & B [employer] MEDEX SUPPLEMENT MEDICARE PART A & B Member Subscriber Plan / Payer ( fective 2003-) Name:Anna Castillo Member ID:[id number] Relation to Subscriber:Self Name:Anna Castillo Subscriber ID:[id number] Payer ID:[id number] Group ID:Not on file Type:Medicare Address: [facility] [employer] [facility] [employer] [employer] [facility] [address] [place] [address] Plynked CROSS MEDEX SUPPLEMENT MEDICARE PART A & B Member Subscriber Plan / Payer ( fective 2003-) Name:Anna Castillo Member ID:[id number] Relation to Subscriber:Self Name:Anna Castillo Subscriber ID:[id number] Payer ID:[id number] Group ID:Not on file Type:Medicare Address: [facility] [employer] [facility] [employer] [facility] [address] [place] [address] Adeze MEDEX SUPPLEMENT MEDICARE PART A & B Plynked CROSS MEDEX SUPPLEMENT MEDICARE PART A & B Plynked [employer] MED[employer] SUPPLEMENT MEDICARE PART A & B Adeze MEDEX SUPPLEMENT MEDICARE PART A & B [employer] MEDEX SUPPLEMENT MEDICARE PART A & B [employer] MEDEX SUPPLEMENT Advance Directives For more information, please contact: [phone] (9AM - 5PM [facility], Friday-Friday) Documents on File Type Date Recorded 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 Healthcare Proxy 11/18/2023 2:08 PM Healthcare Proxy 11/14/2023 7:46 AM Health care Proxy * Full Code (Latest Code Status on File) Date Activated Date Inactivated Comments 11/12/2023 10:33 PM Question Answer Comments Code Status Confirmed With: Other (specify below ) Code Discussion Comments: Presumed Care Teams Talent Acquisition Sourcer Relationship Specialty Start Date End Date Laura Mock MD, DMD 1 [facility] [address] [place] [address] [email or web address] PCP - General Internal Medicine 05/18/24 Rina Swenson MD Psychiatry 07/09/17 Jakob Bob MD [address] [place], [place] [address] [place] [address] [email or web address] Cardiology 08/22/23 Jose Cruz MD [address] [place] [address], [facility] [address] [place] [address] [email or web address] Cardiology 08/22/23 [facility] [phone]. Consulting Provider 08/22/23 Cyril Morales [address] [place] [address] Nurse Practitioner 02/27/24 Additional Source Comments The information contained in this document represents components of the legal health record. It is not the complete legal health record.[facility]
--- OUTSIDE RECORDS SUMMARY | 2025-01-17 19:23 | XMS_ITS | Encounter Summary ---
Author Organization [facility] Address [address] [facility] [address] [place] [address] Phone Care Team Providers Care Grip Assembler Name Role Phone Rina Swenson MD Unavailable Laura Mock MD, DMD Primary Car e Provider Laura Mock MD, DMD Unavailable Laura Mock MD, DMD Unavailable Jakob Bob MD Unavailable Jose Cruz MD Unavailable [phone] Laura Mock MD, DMD Unavailable Pcp, Unknown Primary Care Provider UnavailLaura Ascencio MD, DMD Primary Car e Provider Pcp, Unknown Primary Care Provider UnavailNicole Arguello MD Primary Care Provide r Laura Mock MD, DMD Primary Car e Provider Encounter Details Date Type Department Care Team (Late st Contact Info) Description 10/02/2022 Procedure Pass [facility] 75 [place] [address] Social History Tobacco Use Types Packs/Day Years [...] Description 01/31/2025 1:00 PM EST Office Visit [facility] Cardiovascular Medicine 32 [facility], 5th Floor, [address] [place] [address] Karena Betancur MD [address] [address] [email or web address] 03/08/2025 9:30 AM EST [facility] 2nd [place] [address] Irineo Ruff MD 75 [place] [address] [email or web address] 03/15/2025 Procedure Pass [facility] Endoscopy Department [address] [place] [address] 03/15/2025 7:30 AM EST Hospital Encounter [facility] Endoscopy Department [address] [place] [address] Irineo Ruff MD 75 [facility] [place] [address] [email or web address] 03/15/2025 7:30 AM EST - 03/15/2025 8:15 AM EST Surgery [facility] Endoscopy Department [address] [place] [address] Irineo Ruff MD [address] [place] [address] [place] [address] [email or web address] COLONOSCOPY Scheduled Procedures Name Priority [...] Date Laura Mock MD, DMD [address] [address] [email or web address] PCP - General Internal Medicine 06/04/21 11/11/23 Pcp, Unknown PCP - General 11/12/23 11/16/23 Laura Mock MD, DMD [address] [address] [email or web address] PCP - General Internal Medicine 11/17/23 12/28/23 Pcp, Unknown PCP - General 02/28/24 03/04/24 [place] [address] [place] [address] PCP - General 03/05/24 05/17/24 Laura Mock MD, DMD [address] [address] [email or web address] PCP - General Internal Medicine 05/18/24 Rina Swenson MD Psychiatry 07/09/17 Laura Mock MD, DMD [address] [address] [email or web address] du Partners Attributed Provider 09/01/21 07/03/23 Laura Mock MD, DMD [address] [address] [email or web address] du Insurance Assigned Provider 05/31/23 03/01/24 Jakob Bob MD [address] [place] [address] [email or web address] Cardiology 08/22/23 Jose Cruz MD [address] [place] [address], [address] [place] [address] Cardiology 08/22/23 Laura Mock MD, DMD [address] [address] [email or web address] du Partners Attributed Provider 09/01/21 07/03/23 [facility] [phone]. Consulting Provider 08/22/23 [facility] Connect 12/24/23 03/11/24 Cyril Morales [address] [place] [address] Nurse Practitioner 02/27/24 documented as of this encounter Additional Source Comments The information contained in this document represents components of the legal health record. It is not the complete legal health record.[facility]
--- OUTSIDE RECORDS SUMMARY | 2025-01-17 19:23 | XMS_ITS | Encounter Summary ---
Author Organization [facility] Address Formerly [facility] [employer] [address] [address] Phone Care Team Providers Care Tape Cutter Name Role Phone Rina Swenson MD Unavailable [...] [facility] Cardi[facility] Medicine [address], 5th Floor, [address] [place] [address] Karena Betancur MD [address] [address] [email or web address] 03/08/2025 9:30 AM EST Pre-Admission Testing [facility] 45 [facility] 2nd [place] [address] Irineo Ruff MD 75 [place] [address] [email or web address] 03/15/2025 [facility] Pass [facility] Endoscopy Department [address] [place] [address] 03/15/2025 7:30 AM EST Hospital Encounter [facility] Endoscopy Department [address] [place] [address] Irineo Ruff MD 75 [facility] [place] [address] [email or web address] 03/15/2025 7:30 AM EST - 03/15/2025 8:15 AM EST Surgery [facility] Endoscopy Department [address] [place] [address] Irineo Ruff MD [address] [place] [address] End[place] [address] [email or web address] [email or web address] Scheduled Procedures Name [...] documented as of this encounter Care Teams Tape Cutter Relationship Specialty Start Date End Date Laura Mock MD, DMD [address] [address] [email or web address] PCP - General Internal Medicine 06/04/21 11/11/23 Pcp, Unknown PCP - General 11/12/23 11/16/23 Laura Mock MD, DMD [address] [address] [email or web address] PCP - General Internal Medicine 11/17/23 12/28/23 Pcp, Unknown PCP - General 02/28/24 03/04/24 Nicole Newell MD [address] [place] [address] [id number] PCP - General 03/05/24 05/17/24 Laura Mock MD, DMD [address] [address] [email or web address] PCP - General Internal Medicine 05/18/24 iRna Swenson MD Psychiatry 07/09/17 Laura Mock MD, DMD [address] [address] [email or web address] Partners Attributed Provider 09/01/21 07/03/23 Laura Mock MD, DMD [address] [address] [email or web address] Insurance Assigned Provider 05/31/23 03/01/24 Jakob oBb MD 75 [facility] [place] [address] [email or web address] Cardiology 08/22/23 Jose Cruz MD [address] [place] [address] Cardiology 08/22/23 Laura Mock MD, DMD [address] [address] [email or web address] Partners Attributed Provider 09/01/21 07/03/23 [facility] [phone]. Consulting Provider 08/22/23 [facility] Connect 12/24/23 03/11/24 Cyril Morales [address] [place] [address] Nurse Practitioner 02/27/24 documented as of this encounter Additional Source Comments The information contained in this document represents components of the legal health record. It is not the complete legal health record.[facility]
--- OUTSIDE RECORDS SUMMARY | 2025-01-17 19:25 | XMS_ITS | Encounter Summary ---
Author Organization [facility] Address [address] [employer] [facility] [address] [place] [address] Phone Care Team Providers Care Carton Stamper Name Role Phone Artie Meehan MD Primary Care Provider [phone] Artie Meehan MD Unavailable Rina Swenson MD [...] Description 12/11/2018 Ancillary Orders Virtual Department [address] [place] [address] Artie Meehan MD [address] [place] [address] [place] [address] Breast screening Social History Tobacco Use Types [...] [facility] Cardi[facility] 32 [facility], 5th Floor, [address] [place] [address] Karena Betancur MD [address] [address] [email or web address] 03/08/2025 9:30 AM EST Pre-Admission Testing [facility] 45 [facility] 2nd [place] [address] Irineo Ruff MD 75 [place] [address] [email or web address] 03/15/2025 Procedure Pass [facility] Endoscopy Department [address] [place] [address] 03/15/2025 7:30 AM EST Hospital Encounter [facility] Endoscopy Department [address] [place] [address] Irineo Ruff MD [address] [place] [address] [place] [address] [email or web address] 03/15/2025 7:30 AM EST - 03/15/2025 8:15 AM EST Surgery [facility] Endoscopy Department [address] [place] [address] Irineo Ruff MD [address] [place] [address] [place] [address] [email or web address] COLONOSCOPY Scheduled Procedures Name [...] lowers the sensitivity of mammography. POS - [id number] Narrative 01/05/2019 1:52 PM EST Full-field digital [...] whichlowers the sensitivity of mammography. POS - [id number] Artie Meehan MD IMG MG EXAMS Final [...] documented as of this encounter Care Teams Carton Stamper Relationship Specialty Start Date End Date Artie Meehan MD [address] [place] [address] [place] [address] PCP - General Internal Medicine 10/26/17 06/03/21 Laura Mock MD, DMD [address] [address] [email or web address] PCP - General Internal Medicine 06/04/21 11/11/23 Pcp, Unknown PCP - General 11/12/23 11/16/23 Laura Mock MD, DMD [address] [address] [email or web address] PCP - General Internal Medicine 11/17/23 12/28/23 Pcp, Unknown PCP - General 02/28/24 03/04/24 [place] [address] [address] PCP - General 03/05/24 05/17/24 Laura Mock MD, DMD [address] [address] [email or web address] PCP - General Internal Medicine 05/18/24 Artie Meehan MD [address] [place] [address] [place] [place] [address] Internal Medicine 10/26/17 04/23/22 Rina Swenson MD [address] [place] [address] [place] [address] Psychiatry 07/09/17 Laura Mock MD, DMD [address] [address] [email or web address] Partners Attributed Provider 09/01/21 07/03/23 Laura Mock MD, DMD [address] [address] [email or web address] Insurance Assigned Provider 05/31/23 03/01/24 aJkob Bob MD [address] [place], [place] [address] [place] [address] [email or web address] Cardiology 08/22/23 Jose Cruz MD 22 [facility], [address] [place] [address] [email or web address] Cardiology 08/22/23 Laura Mock MD, DMD [address] [place] [address] [address] [place] [address] [email or web address] Partners Attributed Provider 09/01/21 07/03/23 [place] [facility] [phone]. Consulting Provider 08/22/23 [facility] Connect 12/24/23 03/11/24 Cyril Morales [address] [place] [address] Nurse Practitioner 02/27/24 documented as of this encounter Additional Source Comments The information contained in this document represents components of the legal health record. It is not the complete legal health record.[facility]
--- OUTSIDE RECORDS SUMMARY | 2025-01-17 19:26 | XMS_ITS | Encounter Summary ---
Author Organization [facility] Address [address] [facility] [address] [place] [address] Phone Care Team Providers Care Commercial Loan Manager Name Role Phone Artie Meehan MD Primary Care Provider [phone] Artie Meehan MD Unavailable Rina Swenson MD [...] st Contact Info) Description 05/15/2018 Procedure Pass [facility], [address] [address] Social History Tobacco Use Types Packs/Day Years [...] [facility] Cardiovascular Medicine 32 [facility], 5th Floor, [address] [place] [address] Karena Betancur MD [address] [address] [email or web address] 03/08/2025 9:30 AM EST [facility] [address] [place] [address] 2nd [place] [address] Irineo Ruff MD [address] [place] [address] [email or web address] 03/15/2025 Procedure Pass [facility] Endoscopy Department [address] [place] [address] 03/15/2025 7:30 AM EST Hospital Encounter [facility] Endoscopy Department [address] [place] [address] Irineo Ruff MD [address] [place] [address] [email or web address] 03/15/2025 7:30 AM EST - 03/15/2025 8:15 AM EST Surgery [facility] Endoscopy Department [address] [place] [address] Irineo uRff MD [address] [place] [address] [place] [address] [email or web address] Scheduled Procedures Name [...] as of this encounter Care Teams Commercial Loan Manager Relationship Specialty Start Date End Date Artie Meehan MD [address] [place] [address] PCP - General Internal Medicine 10/26/17 06/03/21 Laura Mock MD, DMD [address] [address] [email or web address] PCP - General Internal Medicine 06/04/21 11/11/23 Pcp, Unknown PCP - General 11/12/23 11/16/23 Laura Mock MD, DMD [address] [address] [email or web address] PCP - General Internal Medicine 11/17/23 12/28/23 Pcp, Unknown PCP - General 02/28/24 03/04/24 [place] [address] [address] PCP - General 03/05/24 05/17/24 Laura Mock MD, DMD [address] [address] [email or web address] PCP - General Internal Medicine 05/18/24 Artie Meehan MD [address] [place] [address] [place] [address] Internal Medicine 10/26/17 04/23/22 Rina Swenson MD [address] [place] [address] Dr [address] [place] [address] Psychiatry 07/09/17 Laura Mock MD, DMD [address] [address] [email or web address] Partners Attributed Provider 09/01/21 07/03/23 Laura Mock MD, DMD [address] [address] [email or web address] Insurance Assigned Provider 05/31/23 03/01/24 Jakob Bob MD [address] [place] [address] [address] [place] [address] [email or web address] Cardiology 08/22/23 Jose Cruz MD [address] [place] [address], [facility] [address] [place] [address] Cardiology 08/22/23 Laura Mock MD, DMD 1 [facility] [address] [place] [address] [email or web address] Partners Attributed Provider 09/01/21 07/03/23 [facility] [phone]. Consulting Provider 08/22/23 [facility] Connect 12/24/23 03/11/24 Cyril Morales [facility] [place] [address] Nurse Practitioner 02/27/24 documented as of this encounter Additional Source Comments The information contained in this document represents components of the legal health record. It is not the complete legal health record.[facility]
--- OUTSIDE RECORDS SUMMARY | 2025-01-17 19:26 | XMS_ITS | Encounter Summary ---
Author Organization [facility] Address [address] [employer] [facility] [address] [place] [address] Phone Care Team Providers Care Researcher Name Role Phone Artie Meehan MD Primary Care Provider [phone] Artie Meehan MD Unavailable Rina Swenson MD Unavailable Laura Mock MD, DMD Primary Car e Provider Laura Mock MD, DMD Unavailable Laura Mock MD, DMD Unavailable Jakob Bob MD Unavailable [phone] Jose Cruz MD Unavailable Laura Mock MD, DMD Unavailable Pcp, Unknown Primary Care Provider UnavailLaura Ascencio MD, DMD Primary Car e Provider Pcp, Unknown Primary Care Provider UnavailNicole Arguello MD Primary Care Provide r Laura Mock MD, DMD Primary Car e Provider Encounter Details Date Type Department Care Team (Late st Contact Info) Description 10/26/2017 Procedure Pass [facility], Ct Scan - [address] [address] Social History Tobacco Use Types Packs/Day Years [...] [facility] Cardiovascular Medicine 32 [facility], 5th Floor, [address] [place] [address] Karena Betancur MD [address] [address] [email or web address] 03/08/2025 9:30 AM EST Pre-Admission Testing [facility] [address] [place] [address] 2nd [place] [address] Irineo Ruff MD [address] [place] [address] [email or web address] 03/15/2025 Procedure Pass [facility] Endoscopy Department [address] [place] [address] 03/15/2025 7:30 AM EST Hospital Encounter [facility] Endoscopy Department [address] [place] [address] Irineo Ruff MD [address] [place] [address] [email or web address] 03/15/2025 7:30 AM EST - 03/15/2025 8:15 AM EST Surgery [facility] Endoscopy Department [address] [place] [address] Irineo Ruff MD [address] [place] [address] [place] [address] [email or web address] COLONOSCOPY Scheduled Procedures Name Priority Associated Diagnoses [...] documented as of this encounter Care Teams Researcher Relationship Specialty Start Date End Date Artie Meehan MD [address] [place] [address] PCP - General Internal Medicine 10/26/17 06/03/21 Laura Mock MD, DMD [address] [address] [email or web address] PCP - General Internal Medicine 06/04/21 11/11/23 Pcp, Unknown PCP - General 11/12/23 11/16/23 Laura Mock MD, DMD [address] [address] [email or web address] PCP - General Internal Medicine 11/17/23 12/28/23 Pcp, Unknown PCP - General 02/28/24 03/04/24 [place] [address] [place] [address] PCP - General 03/05/24 05/17/24 Laura Mock MD, DMD [address] [address] [email or web address] PCP - General Internal Medicine 05/18/24 Artie Meehan MD [address] [place] [address] Dr [address] [place] [address] Internal Medicine 10/26/17 04/23/22 Rina Swenson MD [address] [place] [address] Dr [address] [place] [address] Psychiatry 07/09/17 Laura Mock MD, DMD [address] [address] [email or web address] Partners Attributed Provider 09/01/21 07/03/23 Laura Mock MD, DMD [address] [address] [email or web address] Insurance Assigned Provider 05/31/23 03/01/24 Jakob Bob MD [address] [place] [address] [address] [place] [address] [email or web address] Cardiology 08/22/23 Jose Cruz MD [address] [place] [address], [facility] [address] [place] [address] Cardiology 08/22/23 Laura Mock MD, DMD 1 [facility] [address] [place] [address] [email or web address] Attributed Provider 09/01/21 07/03/23 [facility] [phone]. Consulting Provider 08/22/23 [facility] Connect 12/24/23 03/11/24 Cyril Morales [address] [place] [phone] Nurse Practitioner 02/27/24 documented as of this encounter Additional Source Comments The information contained in this document represents components of the legal health record. It is not the complete legal health record.[facility]
--- OUTSIDE RECORDS SUMMARY | 2025-01-17 19:26 | XMS_ITS | Encounter Summary ---
Author Organization [facility] Address [address] [facility] [address] [place] [address] Phone Care Team Providers Care Mediation Commissioner Name Role Phone Artie Meehan MD Primary Care Provider Artie Meehan MD Unavailable Rina Swenson MD Unavailable Laura Mock MD, DMD Primary Car e Provider Laura Mock MD, DMD Unavailable Laura Mock MD, DMD Unavailable Jakob Bob MD Unavailable Jose Cruz MD Unavailable [phone] Laura Mock MD, DMD Unavailable Pcp, Unknown Primary Care Provider UnavailLaura Ascencio MD, DMD Primary Car e Provider Pcp, Unknown Primary Care Provider UnavailNicole Arguello MD Primary Care Provide r Laura Mock MD, DMD Primary Car e Provider Encounter Details Date Type Department Care Team (Late st Contact Info) Description 01/06/2018 Procedure Pass [facility] 75 [place] [address] Social History Tobacco Use Types Packs/Day Years [...] [facility] Medicine [address], 5th Floor, [address] [place] [address] Karena Betancur MD [address] [address] [email or web address] 03/08/2025 9:30 AM EST [facility]-Admission [facility] 45 [facility] 2nd [place] [address] Irineo Ruff MD [address] [place] [address] [email or web address] 03/15/[address] [facility] Endoscopy Department [address] [place] [address] 03/15/2025 7:30 AM EST Hospital Encounter [facility] Endoscopy Department [address] [place] [address] Irineo Ruff MD [address] [place] [address] [email or web address]@[email or web address] 03/15/2025 7:30 AM EST - 03/15/2025 8:[address] [facility] Endoscopy Department [address] [place] [address] Irineo Ruff MD [address] [place] [address] [place] [address] [email or web address] COLONOSCOPY Scheduled Procedures Name Priority Associated [...] documented as of this encounter Care Teams Mediation Commissioner Relationship Specialty Start Date End Date Artie Meehan MD [address] [place] [address] [address] PCP - General Internal Medicine 10/26/17 06/03/21 Laura Mock MD, DMD [address] [address] [email or web address] PCP - General Internal Medicine 06/04/21 11/11/23 Pcp, Unknown PCP - General 11/12/23 11/16/23 Laura Mock MD, DMD [address] [address] [email or web address] PCP - General Internal Medicine 11/17/23 12/28/23 Pcp, Unknown PCP - General 02/28/24 03/04/24 Nicole Newell MD [address] [place] [address] PCP - General 03/05/24 05/17/24 Laura Mock MD, DMD [address] [address] [email or web address] PCP - General Internal Medicine 05/18/24 Artie Meehan MD [address] [place] [address] [place] [address] Internal Medicine 10/26/17 04/23/22 Rina Swenson MD [address] [place] [address] Dr [address] [place] [address] Psychiatry 07/09/17 Laura Mock MD, DMD [address] [address] [email or web address] Partners Attributed Provider 09/01/21 07/03/23 Laura Mock MD, DMD [address] [address] [email or web address] Insurance Assigned Provider 05/31/23 03/01/24 Jakob Bob MD [address] [place] [address] [address] [place] [address] [email or web address] Cardiology 08/22/23 Jose Cruz MD [address] [place] [address], [address] [place] [address] Cardiology 08/22/23 Laura Mock MD, DMD 1 [facility] [address] [place] [address] [email or web address] Attributed Provider 09/01/21 07/03/23 [facility] [phone]. Consulting Provider 08/22/23 [facility] Connect 12/24/23 03/11/24 Cyril Morales [address] [place] [phone] Nurse Practitioner 02/27/24 documented as of this encounter Additional Source Comments The information contained in this document represents components of the legal health record. It is not the complete legal health record.[facility]
--- OUTSIDE RECORDS SUMMARY | 2025-01-17 19:26 | XMS_ITS | Encounter Summary ---
Author Organization [facility] Address [address] [facility] [address] [place] [address] Phone Care Team Providers Care [employer] Sports Coach Name Role Phone Artie Meehan MD Primary Care Provider [phone] Artie Meehan MD Unavailable Rina Swenson MD Unavailable [phone] Laura Mock MD, DMD Primary Car e [...] Expiration Date Visits Re quested Visits Authorized [id number] Closed 01/06/2018 01/06/2019 1 1 Encounter Details Date Type Department Care Team (Late st Contact Info) Description 01/06/2018 Transcribe Orders [facility] [address] [place] [address] Shira Mann [address] [place] [address] [email or web address] Social History Tobacco Use Types [...] [facility] 32 [facility], 5th Floor, [address] [place] [address] Karena Betancur MD 55 [facility] 5[address] [place] [address] [email or web address] 03/08/2025 9:30 AM EST Pre-Admission Testing [facility] 45 [facility] 2nd [place] [address] Irineo Ruff MD 75 [facility] [place] [address] [email or web address] 03/15/2025 Procedure Pass [facility] Endoscopy Department [address] [place] [address] 03/15/2025 7:30 AM EST Hospital Encounter [facility] Endoscopy Department [address] [place] [address] Irineo Ruff MD [address] [place] [address] [place] [address] [email or web address] 03/15/2025 7:30 AM EST - 03/15/2025 8:15 AM EST Surgery [facility] Endoscopy Department [address] [place] [address] Irineo Ruff MD [address] [place] [address] [email or web address] Scheduled Procedures Name Priority Associated Diagnoses Date/Ti me COLONOSCOPY Abnormal colonoscopy 03/15/2025 7:30 AM EST documented as of this encounter Results * MRI Lower Extremity Outside (No Interpretation) (01/06/2018 11:46 AM EST) N[facility]ative [facility] - 01/06/2018 11:46 AM EST This study [...] of this encounter Care Teams [employer] Sports Coach Relationship Specialty Start Date End Date Artie Meehan MD [address] [place] [address] [place] [address] PCP - General Internal Medicine 10/26/17 06/03/21 Laura Mock MD, DMD 1 [facility] [address] [place] [address] [email or web address] PCP - General Internal Medicine 06/04/21 11/11/23 Pcp, Unknown PCP - General 11/12/23 11/16/23 Laura Mock MD, DMD [address] [address] [email or web address] PCP - General Internal Medicine 11/17/23 12/28/23 Pcp, Unknown PCP - General 02/28/24 03/04/24 Nicole Newell MD [address] [place] [address] PCP - General 03/05/24 05/17/24 Laura Mock MD, DMD [address] [address] [email or web address] PCP - General Internal Medicine 05/18/24 Artie Meehan MD [address] [place] [address] [place] [address] Internal Medicine 10/26/17 04/23/22 Rina Swenson MD [address] [place] [address] [place] [address] Psychiatry 07/09/17 Laura Mock MD, DMD [address] [address] [email or web address] Partners Attributed Provider 09/01/21 07/03/23 Laura Mock MD, DMD [address] [address] [email or web address] Insurance Assigned Provider 05/31/23 03/01/24 Jakob Bob MD [address] [place] [address] [email or web address] Cardiology 08/22/23 Jose Cruz MD [address] [place] [address] [email or web address] Cardiology 08/22/23 Laura Mock MD, DMD [address] [address] [email or web address] [employer] Attributed Provider 09/01/21 07/03/23 [facility] [phone]. Consulting Provider 08/22/23 [facility] Connect 12/24/23 03/11/24 Cyril Morales [address] [place] [address] Nurse Practitioner 02/27/24 documented as of this encounter Additional Source Comments The information contained in this document represents components of the legal health record. It is not the complete legal health record.[facility]
--- OUTSIDE RECORDS SUMMARY | 2025-01-17 19:26 | XMS_ITS | Encounter Summary ---
Author Organization [facility] Address [address] [employer] [facility] [address] [place] [address] Phone Care Team Providers Care Disposition Clerk Name Role Phone Artie Meehan MD Primary Care Provider [phone] Artie Meehan MD Unavailable Rina Swenson MD Unavailable [phone] Laura Mock MD, DMD Primary Car e Provider Laura Mock MD, DMD Unavailable Laura Mock MD, DMD Unavailable Jakob Bob MD Unavailable Jose Cruz MD Unavailable [phone] Laura Mock MD, DMD Unavailable Pcp, Unknown Primary Care Provider UnavailLaura Ascencio MD, DMD Primary Car e Provider Pcp, Unknown Primary Care Provider UnavailNicole Arguello MD Primary Care Provide r Laura Mock MD, DMD Primary Car e Provider Encounter Details Date Type Department Care Team (Late st Contact Info) Description 12/19/2017 Procedure Pass [facility] [address] [place] [address] Social History Tobacco Use Types Packs/Day Years [...] [facility] Medicine 32 [facility], 5th Floor, [address] [place] [address] Karena Betancur MD [address] [address] [email or web address] 03/08/2025 9:30 AM EST [facility] 45 [facility] 2nd [place] [address] Irineo Ruff MD 75 [facility] [place] [address] [email or web address] 03/15/2025 Procedure Pass [facility] Endoscopy Department [address] [place] [address] 03/15/2025 7:30 AM EST Hospital Encounter [facility] Endoscopy Department [address] [place] [address] Irineo Ruff MD [address] [place] [address] [place] [address] [email or web address] 03/15/2025 7:30 AM EST - 03/15/2025 8:15 AM EST Surgery [facility] Endoscopy Department [address] [place] [address] Irineo Ruff MD [address] [place] [address] [place] [address] [email or web address] [email or web address] Scheduled Procedures Name Priority Associated Diagnoses [...] documented as of this encounter Care Teams Disposition Clerk Relationship Specialty Start Date End Date Artie Meehan MD [address] [place] [address] [place] [address] PCP - General Internal Medicine 10/26/17 06/03/21 Laura Mock MD, DMD 1 [facility] [address] [place] [address] [email or web address] PCP - General Internal Medicine 06/04/21 11/11/23 Pcp, Unknown PCP - General 11/12/23 11/16/23 Laura Mock MD, DMD [address] [address] [email or web address] PCP - General Internal Medicine 11/17/23 12/28/23 Pcp, Unknown PCP - General 02/28/24 03/04/24 [place] [address] [address] PCP - General 03/05/24 05/17/24 Laura Mock MD, DMD 1 [facility] [address] [place] [address] [email or web address] PCP - General Internal Medicine 05/18/24 Artie Meehan MD [address] [place] [address] Dr [address] [place] [address] Internal Medicine 10/26/17 04/23/22 Rina Swenson MD [address] [place] [address] Dr Dior [address] [place] [address] Psychiatry 07/09/17 Laura Mock MD, DMD [address] [address] [email or web address] Partners Attributed Provider 09/01/21 07/03/23 Laura Mock MD, DMD [address] [address] [email or web address] Insurance Assigned Provider 05/31/23 03/01/24 Jakob Bob MD [address] [place] [address] [place] [address] [email or web address] Cardiology 08/22/23 Jose Cruz MD 22 [facility] [address] [place] [address] [email or web address] Cardiology 08/22/23 Laura Mock MD, DMD [address] [place] [address] [address] [place] [address] [email or web address] Partners Attributed Provider 09/01/21 07/03/23 [facility] [phone]. Consulting Provider 08/22/23 [facility] Connect 12/24/23 03/11/24 Cyril Morales [address] [place] [address] Nurse Practitioner 02/27/24 documented as of this encounter Additional Source Comments The information contained in this document represents components of the legal health record. It is not the complete legal health record.[facility]
--- OUTSIDE RECORDS SUMMARY | 2025-01-17 19:26 | XMS_ITS | Encounter Summary ---
Author Organization [facility] Address [address] [facility] [address] [place] [address] Phone Care Team Providers Care Typesetting Machine Tender Name Role Phone Artie Meehan MD Primary Care Provider [phone] Artie Meehan MD Unavailable Rina Swenson MD Unavailable Laura Mock MD, DMD Primary Car e Provider Laura Mock MD, DMD Unavailable Laura Mock MD, DMD Unavailable Jakob Bob MD Unavailable Jose Cruz MD Unavailable [phone] Laura Mock MD, DMD Unavailable Pcp, Unknown [...] Expiration Date Visits Re quested Visits Authorized [id number] Closed 05/15/2018 05/15/2019 1 1 Encounter Details Date Type Department Care Team (Late Contact Info) Description 05/15/2018 Ancillary Orders For Login Purposes Only 15 [facility] Floor 2 [address] [place] [address] Artie Meehan MD [address] [place] [address] [place] [address] Pancreatic cyst Social History Tobacco Use Types [...] [facility] 32 [facility], 5th Floor, [address] [place] [address] Karena Betancur MD 55 [facility] 5B [place] [address] [email or web address] 03/08/2025 9:30 AM EST Pre-Admission Testing [facility] 45 [facility] 2nd [place] [address] Irineo Ruff MD 75 [facility] [place] [address] [email or web address] 03/15/2025 Procedure Pass [facility] Endoscopy Department [address] [place] [address] 03/15/2025 7:30 AM EST Hospital Encounter [facility] Endoscopy Department [address] [place] [address] Irineo Ruff MD [address] [place] [address] [place] [address] [email or web address] 03/15/2025 7:30 AM EST - 03/15/2025 8:15 AM EST Surgery [facility] Endoscopy Department [address] [place] [address] Irineo Ruff MD [address] [place] [address] [email or web address] [email or web address] Scheduled Procedures Name [...] renal cysts. Right hepatic lobe cyst. POS [id number] Edited by: Abbie Barnett on 05/22/2018 12:52 [...] renal cysts. Right hepatic lobe cyst. POS [id number] Edited by: Abbie Barnett on 05/22/2018 12:52 [...] documented as of this encounter Care Teams Typesetting Machine Tender Relationship Specialty Start Date End Date Artie Meehan MD [address] [place] [address] [place] [address] PCP - General Internal Medicine 10/26/17 06/03/21 Laura Mock MD, DMD [address] [address] [email or web address] PCP - General Internal Medicine 06/04/21 11/11/23 Pcp, Unknown PCP - General 11/12/23 11/16/23 Laura Mock MD, DMD [address] [address] [email or web address] PCP - General Internal Medicine 11/17/23 12/28/23 Pcp, Unknown PCP - General 02/28/24 03/04/24 [place] [address] [address] PCP - General 03/05/24 05/17/24 Laura Mock MD, DMD [address] [address] [email or web address] PCP - General Internal Medicine 05/18/24 Artie Meehan MD [address] [place] [address] Dr [place] [address] Internal Medicine 10/26/17 04/23/22 Rina Swenson MD [address] [place] [address] Dr Dior [address] [place] [address] Psychiatry 07/09/17 Laura Mock MD, DMD [address] [address] [email or web address] Partners Attributed Provider 09/01/21 07/03/23 Laura Mock MD, DMD [address] [address] [email or web address] du Insurance Assigned Provider 05/31/23 03/01/24 Jakob Bob MD [address] [place] [address] [address] [place] [address] [email or web address] Cardiology 08/22/23 Jose Cruz MD [address] [place] [address], [address] [place] [address] Cardiology 08/22/23 Laura Mock MD, DMD [address] [address] [email or web address] Attributed Provider 09/01/21 07/03/23 [facility] [phone]. Consulting Provider 08/22/23 [facility] Connect 12/24/23 03/11/24 Cyril Morales [address] [place] [address] Nurse Practitioner 02/27/24 documented as of this encounter Additional Source Comments The information contained in this document represents components of the legal health record. It is not the complete legal health record.[facility]
--- OUTSIDE RECORDS SUMMARY | 2025-01-17 19:26 | XMS_ITS | Encounter Summary ---
Author Organization [facility] Address [address] [employer] [facility] [address] [place] [address] Phone Care Team Providers Care Telepathist Name Role Phone Artie Meehan MD Primary Care Provider [phone] Artie Meehan MD Unavailable Rina Swenson MD Unavailable Laura Mock MD, DMD Primary Car e Provider Laura Mock MD, DMD Unavailable Laura Mock MD, DMD Unavailable Jakob Bob MD Unavailable Jose Cruz MD Unavailable [phone] Laura Mock MD, DMD Unavailable Pcp, Unknown Primary Care Provider UnavailLaura Ascencio MD, DMD Primary Car e Provider Pcp, Unknown Primary Care Provider UnavailNicole Arguello MD Primary Care Provide r Laura Mock MD, DMD Primary Car e Provider Encounter Details Date Type Department Care Team (Late st Contact Info) Description 05/20/2018 Transcribe Orders [facility] [address] [place] [address] Artie Meehan MD [address] [place] [address] [place] [address] 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) [...] Upcoming Encounters Date Type Department Care Team ([facility] st Contact Info) Description 01/31/2025 1:00 PM EST Office Visit [facility] Cardiovascular Medicine 32 [facility], 5th Floor, [address] [place] [address] Karena Betancur MD [address] [address] [email or web address] 03/08/2025 9:30 AM EST Pre-Admission Testing [facility] 45 [facility] 2nd [place] [address] Irineo Ruff MD 75 [place] [address] [email or web address] 03/15/2025 Procedure Pass [facility] Endoscopy Department [address] [place] [address] 03/15/2025 7:30 AM EST Hospital Encounter [facility] Endoscopy Department [address] [place] [address] Irineo Ruff MD 75 [facility] [place] [address] [email or web address] 03/15/2025 7:30 AM EST - 03/15/2025 8:15 AM EST Surgery [facility] Endoscopy Department [address] [place] [address] Irineo Ruff MD [address] [place] [address] [place] [address] [email or web address] [email or web address] Scheduled Procedures Name [...] documented as of this encounter Care Teams Telepathist Relationship Specialty Start Date End Date Artie Meehan MD [address] [place] [address] [place] [address] PCP - General Internal Medicine 10/26/17 06/03/21 Laura Mock MD, DMD [address] [address] [email or web address] PCP - General Internal Medicine 06/04/21 11/11/23 Pcp, Unknown PCP - General 11/12/23 11/16/23 Laura Mock MD, DMD [address] [address] [email or web address] PCP - General Internal Medicine 11/17/23 12/28/23 Pcp, Unknown PCP - General 02/28/24 03/04/24 [place] [address] [address] PCP - General 03/05/24 05/17/24 Laura Mock MD, DMD [address] [address] [email or web address] PCP - General Internal Medicine 05/18/24 Artie Meehan MD [address] [place] [address] Dr Dior [facility] [place] [address] Internal Medicine 10/26/17 04/23/22 Rina Swenson MD [address] [place] [address] Dr [address] [place], [place] [address] [address] Psychiatry 07/09/17 Laura Mock MD, DMD [address] [address] [email or web address] Attributed Provider 09/01/21 07/03/23 Laura Mock MD, DMD [address] [address] [email or web address] Insurance Assigned Provider 05/31/23 03/01/24 Jakob Bob MD 75 [facility] [address] [place] [address] [email or web address] Cardiology 08/22/23 Jose Cruz MD 22 [facility], [address] [place] [address] [email or web address] Cardiology 08/22/23 Laura Mock MD, DMD 1 [facility] [address] [place] [address] [email or web address] [employer] Attributed Provider 09/01/21 07/03/23 [facility] [phone]. Consulting Provider 08/22/23 [facility] Connect 12/24/23 03/11/24 Cyril [place]ales [address] [place] [address] Nurse Practitioner 02/27/24 documented as of this encounter Additional Source Comments The information contained in this document represents components of the legal health record. It is not the complete legal health record.[facility]
--- OUTSIDE RECORDS SUMMARY | 2025-01-17 19:26 | XMS_ITS | Encounter Summary ---
Author Organization [facility] Address [address] [employer] [facility] [address] [place] [address] Phone Care Team Providers Care Address Change Clerk Name Role Phone Artie Meehan MD Primary Care Provider [phone] Artie Meehan MD Unavailable Rina Swenson MD Unavailable Laura Mock MD, DMD Primary Car e Provider Laura Mock MD, DMD Unavailable Laura Mock MD, DMD Unavailable Jakob Bob MD Unavailable [phone] Jose Cruz MD Unavailable [phone] Laura Mock MD, DMD Unavailable Pcp, Unknown Primary Care Provider UnavailLaura Ascencio MD, DMD Primary Car e Provider Pcp, Unknown Primary Care Provider UnavailNicole Arguello MD Primary Care Provide r Laura Mock MD, DMD Primary Car e Provider Encounter Details Date Type Department Care Team (Late st Contact Info) Description 05/23/2018 Transcribe Orders [facility] [address] [place] [address] Artie Meehan MD [address] [place] [address] [place] [address] 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 Social History [...] Upcoming Encounters Date Type Department Care Team ([facility] st Contact Info) Description 01/31/2025 1:00 PM EST Office Visit [facility] [place] [place] 32 [facility], 5th Floor, [address] [place] [address] Karena Betancur MD [address] [address] [email or web address] 03/08/2025 9:30 AM EST Pre-Admission Testing [facility] 45 [facility] 2nd [place] [address] Irineo Ruff MD 75 [place] [address] [email or web address] 03/15/2025 Procedure Pass [facility] Endoscopy Department [address] [place] [address] 03/15/2025 7:30 AM EST Hospital Encounter [facility] Endoscopy Department [address] [place] [address] Irineo Ruff MD 75 [facility] [place] [address] [email or web address] 03/15/2025 7:30 AM EST - 03/15/2025 8:15 AM EST Surgery [facility] Endoscopy Department [address] [place] [address] Irineo Ruff MD [address] [place] [address] [place] [address] [email or web address] COLONOSCOPY Scheduled Procedures Name Priority Associated Diagnoses Date/Ti me COLONOSCOPY Abnormal colonoscopy 03/15/2025 7:30 AM EST documented as of this encounter Procedures Procedure Name Priority Date/Time Associated Diagnosis Comments PT-INR STAT 05/23/2018 11:36 AM EDT 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 documented in this encounter Results * (ABNORMAL) PT-INR (05/23/2018 11:36 AM EDT) PT 14.8(H) 10.2 - 12.9 sec [facility] INR 1.3(H) 0.9 - 1.1 [facility] Comment:Therapeutic range fo r oral Vitamin K antagonists: 2.0-3.5 Blood 05/23/2018 11:3 6 AM EDT 05/23/2018 11:39 AM EDT Artie Meehan MD LAB BLOOD BKR ORDERABLES Final Result Performing Organization Address City/State/[facility] Co de Phone Number [address] [address] documented in this encounter Visit Diagnoses Diagnosis 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 Abnormal colonoscopy documented in this encounter Additional Health Concerns Infection Onset Date Last Indicated Resolved Time CoV-Presumed 03/23/2022 03/23/2022 04/13/2022 1:23 AM EST CoV-Risk 11/12/2023 11/12/2023 11/12/2023 5:12 PM EDT COVID-19 11/12/2023 11/12/2023 12/03/2023 1:21 AM EDT documented as of this encounter Care Teams Address Change Clerk Relationship Specialty Start Date End Date Artie Meehan MD [address] [place] [address] [place] [address] PCP - General Internal Medicine 10/26/17 06/03/21 Laura Mock MD, DMD 1 [facility] [address] [place] [address] [email or web address] PCP - General Internal Medicine 06/04/21 11/11/23 Pcp, Unknown PCP - General 11/12/23 11/16/23 Laura Mock MD, DMD [address] [address] [email or web address] PCP - General Internal Medicine 11/17/23 12/28/23 Pcp, Unknown PCP - General 02/28/24 03/04/24 Nicole Newell MD [address] [place] [address] PCP - General 03/05/24 05/17/24 Laura Mock MD, DMD [address] [address] [email or web address] PCP - General Internal Medicine 05/18/24 Artie Meehan MD [address] [place] [address] [place] [address] Internal Medicine 10/26/17 04/23/22 Rina Swenson MD [address] [place] [address] [place] [address] Psychiatry 07/09/17 Laura Mock MD, DMD [address] [address] [email or web address] Attributed Provider 09/01/21 07/03/23 Laura Mock MD, DMD [address] [address] [email or web address] Insurance Assigned Provider 05/31/23 03/01/24 Jakob Bob MD [address] [place] [address] [email or web address] Cardiology 08/22/23 Jose Cruz MD [address] [place] [address] Cardiology 08/22/23 Laura Mock MD, DMD [address] [address] [email or web address] Attributed Provider 09/01/21 07/03/23 [place] [facility] [phone]. Consulting Provider 08/22/23 [facility] Connect 12/24/23 03/11/24 Cyril Morales [address] [place] [phone] Nurse Practitioner 02/27/24 documented as of this encounter Additional Source Comments The information contained in this document represents components of the legal health record. It is not the complete legal health record.[facility]
--- OUTSIDE RECORDS SUMMARY | 2025-01-17 19:26 | XMS_ITS | Encounter Summary ---
Author Organization [facility] Address [address] [employer] [address] [place] [address] Phone Care Team Providers Care Backside Grinder Name Role Phone Artie eMehan MD Primary Care Provider [phone] Artie Meehan MD Unavailable Rina Swenson MD Unavailable [phone] Laura Mock MD, DMD Primary Car e Provider Laura Mock MD, DMD Unavailable Laura Mock MD, DMD Unavailable Jakob Bob MD Unavailable [phone] Jose Cruz MD Unavailable [phone] Laura Mock MD, DMD Unavailable Pcp, Unknown Primary Care Provider UnavailLaura Ascencio MD, DMD Primary Car e Provider Pcp, Unknown Primary Care Provider UnavailNicole Arguello MD Primary Care Provide r Laura Mock MD, DMD Primary Car e Provider Encounter Details Date Type Department Care Team (Late st Contact Info) Description 11/27/2018 Transcribe Orders [facility] Rehabilitation Services [address] [place] [address] Artie Meehan MD [address] [place] [address] [place] [address] Social History Tobacco Use Types Packs/Day Years [...] Visit [facility] Cardiovascular Medicine 32 [facility], 5th Floor, [address] [place] [address] Karena Betancur MD [address] [address] [email or web address] 03/08/2025 9:30 AM EST Pre-Admission Testing [facility] 45 [facility] 2nd [place] [address] Irineo Ruff MD [address] [place] [address] [email or web address] 03/15/2025 Procedure Pass [facility] Endoscopy Department [address] [place] [address] 03/15/2025 7:30 AM EST Hospital Encounter [facility] Endoscopy Department [address] [place] [address] Irineo Ruff MD [address] [place] [address] [place] [address] [email or web address] 03/15/2025 7:30 AM EST - 03/15/2025 8:15 AM EST Surgery [facility] Endoscopy Department [address] [place] [address] Irineo Ruff MD [address] [place] [address] [place] [address] [email or web address] COLONOSCOPY Scheduled [...] documented as of this encounter Care Teams Backside Grinder Relationship Specialty Start Date End Date Artie Meehan MD [address] [place] [address] [place] [address] PCP - General Internal Medicine 10/26/17 06/03/21 Laura Mock MD, DMD [address] [address] [email or web address] PCP - General Internal Medicine 06/04/21 11/11/23 Pcp, Unknown PCP - General 11/12/23 11/16/23 Laura Mock MD, DMD [address] [address] [email or web address] PCP - General Internal Medicine 11/17/23 12/28/23 Pcp, Unknown PCP - General 02/28/24 03/04/24 [place] [address] [address] PCP - General 03/05/24 05/17/24 Laura Mock MD, DMD [address] [address] [email or web address] PCP - General Internal Medicine 05/18/24 Artie Meehan MD [address] [place] [address] Dr [address] [place] [address] Internal Medicine 10/26/17 04/23/22 Rina Swenson MD [address] [place] [address] Dr [address] [place] [address] Psychiatry 07/09/17 Laura Mock MD, DMD [address] [address] [email or web address] [employer] Attributed Provider 09/01/21 07/03/23 Laura Mock MD, DMD [address] [address] [email or web address] Insurance Assigned Provider 05/31/23 03/01/24 Jakob Bob MD [address] [place] [address] [place] [address] [email or web address] Cardiology 08/22/23 Jose Cruz MD [address] [place] [address], [address] [address] Cardiology 08/22/23 Laura Mock MD, DMD 1 [facility] [address] [place] [address] [email or web address] Attributed Provider 09/01/21 07/03/23 [facility] [phone]. Consulting Provider 08/22/23 [facility] Connect 12/24/23 03/11/24 Cyril Morales [address] [place] [address] Nurse Practitioner 02/27/24 documented as of this encounter Additional Source Comments The information contained in this document represents components of the legal health record. It is not the complete legal health record.[facility]
--- OUTSIDE RECORDS SUMMARY | 2025-01-17 19:26 | XMS_ITS | Encounter Summary ---
Author Organization [facility] Address [address] [facility] [address] [place] [address] Phone Care Team Providers Care Lumber Loader Name Role Phone Artie Meehan MD Primary Care Provider [phone] Artie Meehan MD Unavailable Rina Swenson MD [...] (GI/) Daryn Moyer MD Phone: tel: fax: mailto:[email or web address] Referral ID Status Reason Start Date Expiration Date Visits Re quested Visits Authorized [id number] Closed 12/24/2017 12/24/2018 1 1 Encounter Details Date Type Department Care Team ([facility] Contact Info) Description 12/24/2017 Ancillary Orders [facility] Urology 45 [facility]2-3 [place] [address] Daryn Moyer MD 45 [facility] 11-3 [place] [address] [email or web address] Social History Tobacco Use Types [...] Upcoming Encounters Date Type Department Care Team ([facility] Contact Info) Description 01/31/2025 1:00 PM EST Office Visit [facility] [place] 32 [facility], 5th Floor, [address] [place] [address] Karena Betancur MD 55 [facility] 5[address] [place] [address] [email or web address] 03/08/2025 9:30 AM EST Pre-Admission Testing [facility] 45 [facility] 2nd [place] [address] Irineo Ruff MD [address] [place] [address] [place] [address] [email or web address] 03/15/2025 Procedure Pass [facility] Endoscopy Department [address] [place] [address] 03/15/2025 7:30 AM EST Hospital Encounter [facility] Endoscopy Department [address] [place] [address] Irineo Ruff MD [address] [place] [address] [place] [address] [email or web address] 03/15/2025 7:30 AM EST - 03/15/2025 8:15 AM EST Surgery [facility] Endoscopy Department [address] [place] [address] Irineo Ruff MD [address] [place] [address] [email or web address] COLONOSCOPY Scheduled Procedures [...] documented as of this encounter Care Teams Lumber Loader Relationship Specialty Start Date End Date Artie Meehan MD [address] [place] [address] [place] [address] PCP - General Internal Medicine 10/26/17 06/03/21 Laura Mock MD, DMD [address] [address] [email or web address] PCP - General Internal Medicine 06/04/21 11/11/23 Pcp, Unknown PCP - General 11/12/23 11/16/23 Laura Mock MD, DMD [address] [address] [email or web address] PCP - General Internal Medicine 11/17/23 12/28/23 Pcp, Unknown PCP - General 02/28/24 03/04/24 Nicole [place] MD [address] [place] [address] PCP - General 03/05/24 05/17/24 Laura Mock MD, DMD [address] [address] [email or web address] PCP - General Internal Medicine 05/18/24 Artie Meehan MD [address] [place] [address] [place] [address] Internal Medicine 10/26/17 04/23/22 Rina Swenson MD [address] [place] [address] [place] [address] Psychiatry 07/09/17 Laura Mock MD, DMD [address] [address] [email or web address] [employer] Attributed Provider 09/01/21 07/03/23 Laura Mock MD, DMD [address] [address] [email or web address] Insurance Assigned Provider 05/31/23 03/01/24 Jakob Bob MD [address] [place] [address] [place] [address] [email or web address] Cardiology 08/22/23 Jose Cruz MD [address] [place] [address] Cardiology 08/22/23 Laura Mock MD, DMD [address] [address] [email or web address] Attributed Provider 09/01/21 07/03/23 [facility] [phone]. Consulting Provider 08/22/23 [facility] Connect 12/24/23 03/11/24 Cyril Morales [facility] [place] [address] Nurse Practitioner 02/27/24 documented as of this encounter Additional Source Comments The information contained in this document represents components of the legal health record. It is not the complete legal health record.[facility]
--- OUTSIDE RECORDS SUMMARY | 2025-01-17 19:26 | XMS_ITS | Encounter Summary ---
Author Organization [facility] Address [facility] [employer] [address] [address] Phone Care Team Providers Care Track Equipment Operator Name Role Phone Artie Meehan MD Primary Care Provider Artie Meehan MD Unavailable Rina Swenson MD Unavailable Laura Mock MD, DMD Primary Car e Provider Laura Mock MD, DMD Unavailable Laura Mock MD, DMD Unavailable Jakob Bob MD Unavailable [phone] Jose Cruz MD Unavailable Laura Mock MD, [...] sequela Artie Meehan MD Phone: tel: fax: [facility] 30 [place] [address] Phone: tel: Referral ID Status Reason Start Date Expiration Date Visits Re quested Visits Authorized [id number] Closed 11/27/2018 02/23/2019 99 99 Encounter Details Date Type Department Care Team (Latest Contact Info) Description 11/27/2018 Transcribe Orders [facility] Rehabilitation Services [address] [place] [address] Artie Meehan MD [address] [place] [address] [place] [address] Left wrist fracture, sequela (Primary Dx) Social [...] [facility] 32 [facility], 5th Floor, [address] [place] [address] Karena Betancur MD 55 [facility] 5B [place] [address] [email or web address] 03/08/2025 9:30 AM EST Pre-Admission Testing [facility] 45 [facility] 2nd [place] [address] Irineo Ruff MD [address] [place] [address] [email or web address] 03/15/2025 Procedure Pass [facility] Endoscopy Department [address] [place] [address] 03/15/2025 7:30 AM EST Hospital Encounter [facility] Endoscopy Department [address] [place] [address] Irineo Ruff MD [address] [place] [address] [email or web address] 03/15/2025 7:30 AM EST - 03/15/2025 8:15 AM EST Surgery [facility] Endoscopy Department [address] [place] [address] Irineo Ruff MD [address] [place] [address] [email or web address] COLONOSCOPY Scheduled Procedures Name Priority Associated Diagnoses Date/Ti me COLONOSCOPY Abnormal colonoscopy 03/15/2025 7:30 AM EST documented as of this encounter Procedures Procedure Name Priority Date/Time Associated Diagnosis Comments AMB REFERRAL TO [facility] OCCUPATIONAL THERAPY Routine 12/08/2018 4:10 PM EDT Left wrist fracture, sequela documented in this encounter Results * Ambulatory referral to [facility] Occupational Therapy (12/08/2018 4:10 PM EDT) Artie Meehan MD AMB [facility] REFERRALS Final R esult documented in this encounter Visit Diagnoses Diagnosis Left wrist fracture, sequela- Primary Abnormal colonoscopy documented in this encounter Additional Health Concerns Infection Onset Date Last Indicated Resolved Time CoV-Presumed 03/23/2022 03/23/2022 04/13/2022 1:23 AM EST CoV-Risk 11/12/2023 11/12/2023 11/12/2023 5:12 PM EDT COVID-19 11/12/2023 11/12/2023 12/03/2023 1:21 AM EDT documented as of this encounter Care Teams Track Equipment Operator Relationship Specialty Start Date End Date Artie Meehan MD [address] [place] [address] [place] [address] PCP - General Internal Medicine 10/26/17 06/03/21 Laura Mock MD, DMD 1 [facility] [address] [place] [address] [email or web address] PCP - General Internal Medicine 06/04/21 11/11/23 Pcp, Unknown PCP - General 11/12/23 11/16/23 Laura Mock MD, DMD [address] [address] [email or web address] PCP - General Internal Medicine 11/17/23 12/28/23 Pcp, Unknown PCP - General 02/28/24 03/04/24 Nicole [place] MD [address] [place] [address] PCP - General 03/05/24 05/17/24 Laura Mock MD, DMD [address] [address] [email or web address] PCP - General Internal Medicine 05/18/24 Artie Meehan MD [address] [place] [address] [place] [address] Internal Medicine 10/26/17 04/23/22 Rina Swenson MD [address] [place] [address] [place] [address] Psychiatry 07/09/17 Laura Mock MD, DMD [address] [address] [email or web address] Attributed Provider 09/01/21 07/03/23 Laura Mock MD, DMD [address] [address] [email or web address] Insurance Assigned Provider 05/31/23 03/01/24 Jakob Bob MD [address] [place] [address] [place] [address] [email or web address] Cardiology 08/22/23 Jose Cruz MD [address] [place] [address] [email or web address] Cardiology 08/22/23 Laura Mock MD, DMD [address] [address] [email or web address] Attributed Provider 09/01/21 07/03/23 [place] [facility] [phone]. Consulting Provider 08/22/23 [facility] Connect 12/24/23 03/11/24 Cyril Morales [address] [place] [address] Nurse Practitioner 02/27/24 documented as of this encounter Additional Source Comments The information contained in this document represents components of the legal health record. It is not the complete legal health record.[facility]
--- OUTSIDE RECORDS SUMMARY | 2025-01-17 19:26 | XMS_ITS | Encounter Summary ---
Author Organization [facility] Address [address] [facility] [address] [place] [address] Phone Care Team Providers Care Black And White Printer Operator Name Role Phone Artie Meehan MD Primary Care Provider [phone] Artie Meehan MD Unavailable Rina Swenson MD Unavailable [phone] Laura Mock MD, DMD Primary Car e Provider Laura Mock MD, DMD Unavailable Laura Mock MD, DMD Unavailable Jakob Bob MD Unavailable Jose Cruz MD Unavailable [phone] Laura Mock MD, DMD Unavailable Pcp, Unknown Primary Care Provider UnavailLaura Ascencio MD, DMD Primary Car e Provider Pcp, Unknown Primary Care Provider UnavailNicole Arguello MD Primary Care Provide r Laura Mock MD, DMD Primary Car e Provider Encounter Details Date Type Department Care Team (Late st Contact Info) Description 12/24/2017 Procedure Pass [facility] [address] [place] [address] Social History Tobacco Use Types Packs/Day Years [...] [facility] [address] [facility], 5th Floor, [address] [place] [address] Karena eBtancur MD [address] [address] [email or web address] 03/08/2025 9:30 AM EST [facility] 45 [facility] 2nd [place] [address] Irineo Ruff MD 75 [facility] [place] [address] [email or web address] 03/15/2025 Procedure Pass [facility] Endoscopy Department [address] [place] [address] 03/15/2025 7:30 AM EST Hospital Encounter [facility] Endoscopy Department [address] [place] [address] Irineo Ruff MD [address] [place] [address] [place] [address] [email or web address] 03/15/2025 7:30 AM EST - 03/15/2025 8:15 AM EST Surgery [facility] Endoscopy Department [address] [place] [address] Irineo Ruff MD [address] [place] [address] [email or web address] Scheduled Procedures [...] as of this encounter Care Teams Black And White Printer Operator Relationship Specialty Start Date End Date Artie Meehan MD [address] [place] [address] [place] [address] PCP - General Internal Medicine 10/26/17 06/03/21 Laura Mock MD, DMD 1 [facility] [address] [place] [address] [email or web address] PCP - General Internal Medicine 06/04/21 11/11/23 Pcp, Unknown PCP - General 11/12/23 11/16/23 Laura Mock MD, DMD 1 [facility] [address] [place] [address] [email or web address] PCP - General Internal Medicine 11/17/23 12/28/23 Pcp, Unknown PCP - General 02/28/24 03/04/24 [place] [id number] [address] PCP - General 03/05/24 05/17/24 Laura Mock MD, DMD 1 [facility] [address] [place] [address] [email or web address] PCP - General Internal Medicine 05/18/24 Artie Meehan MD [address] [place] [address] Dr D[address] [place] [address] Internal Medicine 10/26/17 04/23/22 Rina Swenson MD [address] [place] [address] Dr Dior [address] [place] [address] Psychiatry 07/09/17 Laura Mock MD, DMD [address] [address] [email or web address] Attributed Provider 09/01/21 07/03/23 Laura Mock MD, DMD [address] [address] [email or web address] Insurance Assigned Provider 05/31/23 03/01/24 Jakob Bob MD [address] [place] [address] [place] [address] [email or web address] Cardiology 08/22/23 Jose Cruz MD 22 [facility], [address] [place] [address] Cardiology 08/22/23 Laura Mock MD, DMD [address] [place] [address] [address] [place] [address] [email or web address] Attributed Provider 09/01/21 07/03/23 [facility] [phone]. Consulting Provider 08/22/23 CAROLANN GREWAL Connect 12/24/23 03/11/24 Cyril Morales [address] [place] [address] Nurse Practitioner 02/27/24 documented as of this encounter Additional Source Comments The information contained in this document represents components of the legal health record. It is not the complete legal health record.[facility]
--- OUTSIDE RECORDS SUMMARY | 2025-01-17 19:26 | XMS_ITS | Encounter Summary ---
Author Organization [facility] Address [facility] [employer] [facility] [address] [place] [address] Phone Care Team Providers Care Campus Wellness Coordinator Name Role Phone Artie Meehan MD Primary Care Provider Artie Meehan MD Primary Care Provider Artie Meehan MD Unavailable Rina Swenson MD Unavailable Laura Mock MD, DMD Primary Car e Provider Laura Mock MD, DMD Unavailable Laura Mock MD, DMD Unavailable Jakob Bob MD Unavailable Jose Cruz MD Unavailable [phone] Laura Mock MD, DMD Unavailable Pcp, Unknown Primary Care Provider UnavailLaura Ascencio MD, DMD Primary Car e Provider Pcp, Unknown Primary Care Provider UnavailNicole Arguello MD Primary Care Provide r Laura Mock MD, DMD Primary Car e Provider Encounter Details Date Type Department Care Team (Late st Contact Info) Description 08/19/2017 Ancillary Orders Virtual Department [address] [place] [address] Artie Meehan MD [address] [place] [address] [place] [address] Breast screening Social History Tobacco Use Types [...] Description 01/31/2025 1:00 PM EST Office Visit [facility] Cardiovascular Medicine 32 [facility], 5th Floor, [address] [place] [address] Karena Betancur MD [address] [address] [email or web address] 03/08/2025 9:30 AM EST Pre-Admission Testing [facility] 45 [facility] 2nd [place] [address] Irineo Ruff MD 75 [place] [address] [email or web address] 03/15/2025 Procedure Pass [facility] Endoscopy Department 75 [place] [address] 03/15/2025 7:30 AM EST Hospital Encounter [facility] Endoscopy Department [address] [place] [address] Irineo Ruff MD 75 [facility] [place] [address] [email or web address] 03/15/2025 7:30 AM EST - 03/15/2025 8:15 AM EST Surgery [facility] Endoscopy Department [address] [place] [address] Irineo Ruff MD [address] [place] [address], [place] [address] [email or web address] Scheduled Procedures Name Priority Associated Diagnoses Date/Ti mn COLONOSCOPY Abnormal colonoscopy 03/15/2025 7:30 AM EST [...] lowers the sensitivity of mammography. POS - [id number] Narrative 09/12/2017 2:03 PM EDT Full-field digital [...] whichlowers the sensitivity of mammography. POS - [id number] Artie Meehan MD IMG MG EXAMS Final [...] as of this encounter Care Teams Campus Wellness Coordinator Relationship Specialty Start Date End Date Artie Meehan MD [address] [place] [address] Dr Dior [facility] [address] PCP - General Internal Medicine 07/09/17 10/25/17 Artie Meehan MD [address] [place] [address] [place] [address] PCP - General Internal Medicine 10/26/17 06/03/21 Laura Mock MD, DMD 1 [facility] [address] [place] [address] [email or web address] PCP - General Internal Medicine 06/04/21 11/11/23 Pcp, Unknown PCP - General 11/12/23 11/16/23 Laura Mock MD, DMD [address] [address] [email or web address] PCP - General Internal Medicine 11/17/23 12/28/23 Pcp, Unknown PCP - General 02/28/24 03/04/24 [place] [address] [address] PCP - General 03/05/24 05/17/24 Laura Mock MD, DMD [address] [address] [email or web address] PCP - General Internal Medicine 05/18/24 Artie Meehan MD [address] [place] [address] Dr Dior [address] [place] [address] [place] [address] Internal Medicine 10/26/17 04/23/22 Rina Swenson MD [address] [place] [address] Dr Dior [facility] [address] Psychiatry 07/09/17 Laura Mock MD, DMD [address] [address] [email or web address] Attributed Provider 09/01/21 07/03/23 Laura Mock MD, DMD [address] [address] [email or web address] Insurance Assigned Provider 05/31/23 03/01/24 Jakob Bob MD 75 [facility] [address] [place] [address] [email or web address] Cardiology 08/22/23 Jose Cruz MD 22 [facility] [address] [place] [address] [email or web address] Cardiology 08/22/23 Laura Mock MD, DMD [address] [place] [address] [address] [place] [address] [email or web address] Attributed Provider 09/01/21 07/03/23 [facility] [phone]. Consulting Provider 08/22/23 [facility] Connect 12/24/23 03/11/24 Cyril Morales [address] [place] [address] Nurse Practitioner 02/27/24 documented as of this encounter Additional Source Comments The information contained in this document represents components of the legal health record. It is not the complete legal health record.[facility]
[2025-01-18 08:18] LABS: Prothrombin Time Whole Bld POC 31.1 sec (11.1-13.5); ~PT, ~INR - Anti Coag Clinic 2.6 (0.9-1.1)
== END 2025-01-17 14:47 | disposition home or self-care (01) ==
LOC: HO.ACS 14:27
PROVIDERS: PCP Internal Medicine; Visit Provider Internal Medicine Medical Oncology
DX: Z79.01 Long term (current) use of anticoagulants (principal)

== ENCOUNTER → 2025-01-17 14:27 | Outpatient (BNVA) | payer MEDICARE, SELFPAY | PROVIDERS: PCP Internal Medicine; Visit Provider Internal Medicine Medical Oncology | DX: Z95.2 Presence of prosthetic heart valve (principal); Z51.81 Encounter for therapeutic drug level monitoring; Z79.01 Long term (current) use of anticoagulants | CPT/HCPCS: 85610; 99211 ==

== ENCOUNTER 2025-02-01 13:15 | Outpatient (REF) | payer MEDICARE, SELFPAY ==
[2025-02-01 13:46] LABS: MANUAL DIFF FLAG NO
[2025-02-01 14:41] LABS: Hematocrit 45.8 % (37.0-47.0); Hemoglobin 14.8 g/dl (12.0-16.0); Imm Gran Abs Auto 0.01 X10*3/uL (0.00-0.03); Imm Gran Pct Auto 0.2 % (0.0-0.4); Lymphocytes Absolute Auto 1.1 X10*3/uL (1.2-4.9); Mean Corpuscular HGB Conc 32.3 g/dl (31.0-35.0); Mean Corpuscular Hemoglobin 30.2 pg (27.0-33.0); Mean Corpuscular Volume 93.5 fL (80.0-98.0); NRBC Abs Auto 0.000 X10*3/uL (0.0-0.012); NRBC Pct Auto 0.0 /100WBC (0.0-0.2); Platelet Count 293 X10*3/uL (160-400); Red Blood Count 4.90 X10*6/uL (4.20-5.50); White Blood Count 4.9 X10*3/uL (4.8-10.8)
[2025-02-01 14:55] LABS: Appearance Urine Clear; Glucose Urine UA Negative (Negative); PH 6.0 (5.0-9.0); Specific Gravity - Urine 1.015 (1.005-1.025); UMIC TRIGGER UACC YES
[2025-02-01 15:19] LABS: Alanine Aminotransferase 19 U/L (0-31); Albumin Level 4.2 g/dL (3.5-5.0); Alkaline Phosphatase 74 U/L (39-117); Anion Gap 12 (12-20); Aspartate Amino Transferase 28 U/L (5-31); Blood Urea Nitrogen 17 mg/dL (9-16); Calcium 9.6 mg/dL (8.4-10.2); Carbon Dioxide 30 mmol/L (22-29); Chloride 106 mmol/L (96-108); Cholesterol 275 mg/dL (<200); Estimated Glomerular Filt Rate 51; HDL Cholesterol 79 mg/dL (>40); Potassium 4.6 mmol/L (3.3-5.1); Sodium 143 mmol/L (135-145); Total Protein 7.0 g/dL (6.5-8.0); Triglycerides 76 mg/dL (<150)
[2025-02-01 15:56] LABS: Folate 13.7 ng/mL (> or = 4.0); Vitamin B12 820 pg/mL (200-900)
== END 2025-02-01 13:16 | disposition home or self-care (01) ==
LOC: HO.XRAY 13:15
PROVIDERS: PCP Internal Medicine; Visit Provider Internal Medicine
DX: Z51.81 Encounter for therapeutic drug level monitoring (principal); D64.9 Anemia, unspecified; E78.00 Pure hypercholesterolemia, unspecified; E55.9 Vitamin D deficiency, unspecified
CPT/HCPCS: 36415; 80053; 80061; 81001; 82306; 82607; 82746; 84443; 85025; 85610; 99211

== ENCOUNTER 2025-02-01 14:09 | Outpatient (AMB) | payer MEDICARE, SELFPAY ==
--- OUTSIDE RECORDS SUMMARY | 2025-01-28 23:59 | XMS_ITS | Continuity of Care Document ---
Author Organization [facility] Address [address] [place] [address]- Care Team Providers Care Cell Repairer Name Role Phone Not on Staff, PCP Primary Care Physician Unavail able Encounter [facility] Date(s): 01/21/25 - 01/28/25 [facility] [address] [place] [address]- Encounter Diagnosis Cough(Discharge Diagnosis) - 01/21/25 Recurrent cold sores(Discharge Diagnosis) - 01/21/25 Low BP(Discharge Diagnosis) - 01/21/25 History of mechanical aortic valve replacement(Discharge Diagnosis) - 01/21/25 Attending Physician: Katia Cronin MD Referring Physician: Not on Staff, Referring MD Encounter Type: Office Visit Allergies, Adverse Reactions, Alerts Substance Criticality Severity Reaction Reaction Severity Status azithromycin Active Medications ClonAZEPAM Tablet 1 tablet, By Mouth, PRN Anxiety, 0 Refills, Maintenance, 06/24/13 4:07:35 PM EDT, Tablet Start Date: 06/24/13 Status: Ordered Medication Dispense Status: Completed Total Allowed Fills: 1 Fills Dispensed: 0 dextroamphetamine 15 mg oral capsule, extended release 1 capsule = 15 mg, By Mouth, Daily in AM, 0 Refills, Maintenance, 06/08/23 3:16:00 PM EDT, ER Capsule, Partial fill upon patient request if the prescription is for a schedule II opioid drug. Start Date: 06/08/23 Stop Date: 07/08/23 Status: Ordered Medication Dispense Status: Completed Total Allowed Fills: 1 Fills Dispensed: 0 Folic Acid Daily, 0 Refills, Maintenance, 01/21/23 2:23:00 PM EST, Partial fill upon patient request if the prescription is for a schedule II opioid drug. Start Date: 01/21/23 Status: Ordered Medication Dispense Status: Completed Total Allowed Fills: 1 Fills Dispensed: 0 Lisinopril Tablet 5 mg, By Mouth, Daily, Maintenance, 06/24/13 4:05:35 PM EDT Start Date: 06/24/13 Status: Ordered Medication Dispense Status: Completed Total Allowed Fills: 1 Fills Dispensed: 0 Vitamin D2 2000 intl units oral capsule 1 capsule = 50 mcg, By Mouth, Daily, 0 Refills, Maintenance, 01/21/25 12:13:00 PM EST, Partial fillupon patient request if the prescription is for a schedule II opioid drug. Start Date: 01/21/25 Status: Ordered Medication Dispense Status: Completed Total Allowed Fills: 1 Fills Dispensed: 0 warfarin 1 mg oral tablet 2 tablet = 2 mg, By Mouth, Every Friday and , # 30 tablet, 0 Refills, Maintenance, 04/29/23 4:27:00 PM EST, Tablet, Partial fill upon patient request if the prescription is for a schedule II opioid drug. 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 [place] valve, 2003, Dr. Heredia Last Assessment & Plan: She has a history of a [place] mechanical aortic valve in 2002.She is on Coumadin for anticoagulation. She tells me that she has a meter at home and has been managing her own Coumadin for some time now. She would like to get back with the clinic to manage her INRs appropriately. She was given a the option to go to [facility] Coumad[facility] clinic or to go back to [facility] where she has been a [...] I have ordered an echocardiogram to be completedas soon as an appointment is available to have follow-up with transfer of care to Dr. Cruz. Diagnosis Diagnosis Type Effective Dates Health Status Clinical Service Informant Cough Discharge Diagnosis 01/21/25 Recurrent cold sores Discharge Diagnosis 01/21/25 Low BP Discharge Diagnosis 01/21/25 History of mechanical aortic valve replacement Discharge Diagnosis 01/21/25 Vital Signs Most recent to oldest [Reference Range]: 1 Height 150 cm (01/21/25 12:13 PM) Oxygen Saturation [94-100 %] 98 % (01/21/25 12:13 PM) Pulse Rate [55-90 bpm] 65 bpm (01/21/25 12:13 PM) Blood Pressure [90-138/55-84 mm Hg] 93/6 1mm Hg (01/21/25 12:13 PM) Respiratory Rate [16-30 br/min] 16 br/mi n (01/21/25 12:13 PM) Temperature [96.8-100.4 DegF] 97.3 DegF (01/21/25 12:13 PM) Mode of Delivery (Oxygen) Room air (01/21/25 12:13 PM) Blood pressure sites Arm, left (01/21/25 12:13 PM) Temperature Route Temporal (01/21/25 12:13 PM) Social History Social History Type Response Smoking Status Never smoker; Tobacc o user in household: No entered on: 08/13/13 Sex Sex Representation Female (finding) Patient Care team information Care Team Personnel Name: Donavon Sadler MD Position: [facility] Cardiology MD Member Role: Lifetime Consulting Physician Address: [address] [place] [address] Telecom: Name: Brook Bland RN Position: [facility] Gabe RN Member Role: Primary Care Nurse Name: Not on Staff, PCP Position: [facility] Physician (General Medicine) Member Role: PCP Care Team Related Persons Name: RADAMES UNDERWOOD Name: KENDRA UNDERWOOD Name: JOE RONNIE Name: THEODORA MORELAND Insurance Providers Guarantor name: RONNIE UNDERWOOD Health Plan Information #: 1 Payer: MEDICARE B Payer Identifier: Member Number: [id number] Group Number: NA Subscriber Identifier: [id number] Relationship to Subscriber: self Coverage Type: NA Coverage Verification Date: NA Telecom: NA Address: [facility] Plan Information #: 2 Payer: MEDEX SECONDARY ONLY Payer Identifier: Member Number: [id number] Group Number: NA Subscriber Identifier: [id number] Relationship to Subscriber: self Coverage Type: Medicare Other Coverage Verification Date: NA Telecom: NA Address:
--- NOTE | 2025-02-01 14:12 | MHC.OFFVISCO ---
Intake Intake Visit Reasons: Anticoagulation Allergies latex Allergy (Intermediate, Verified 01/17/25 14:28) Rash Nursing Note INR: 1.3 out of therapeutic range of 2-3 Pt states she missed a dose Medications and supplements reviewed Patient status: feels well Medications or supplements: no changes Diet: no changes Denies any signs and symptoms of bleeding or clotting or unusual bruising Bleeding, bruising, clotting discussed Nutritional guidance given: to avoid greens X 3 days Dose: pt's usual dose is 4mg daily. She will take 5mg daily for next 3 days then retest. F/U INR Date: 02/04/25?? Patient verbalizing understanding of instructions with read back given. T/C to Dr Meehan's office. Spoke to Clare. Reported INR of 1.3 with dosing plan and next retest date. 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
[2025-02-01 14:14] LABS: Prothrombin Time Whole Bld POC 15.8 sec (11.1-13.5); ~PT, ~INR - Anti Coag Clinic 1.3 (0.9-1.1)
== END 2025-02-01 14:35 | disposition home or self-care (01) ==
LOC: HO.ACS 14:09
PROVIDERS: PCP Internal Medicine; Visit Provider Internal Medicine Medical Oncology
DX: Z79.01 Long term (current) use of anticoagulants (principal)

== ENCOUNTER 2025-02-07 14:31 | Outpatient (REF) | payer MEDICARE, SELFPAY ==
--- NOTE | ~2025-02-07 | XR_ITS ---
EXAMINATION: XR HIP, LEFT CLINICAL INFORMATION: M25.552 - Pain in left hip COMPARISON: None available. TECHNIQUE: Two views of the left hip. FINDINGS: There is a somewhat linear calcification extending cephalad from the lower portion of the left greater tuberosity. On the frog leg view, there is calcific density seen anteriorly. Left hip joint space is preserved. There are small marginal osteophytes involving the femoral head, fovea, and acetabular roof. There is degenerative irregularity and sclerosis involving pubic symphysis joint. Marginal osteophytes and iliac side sclerosis is noted in the left SI joint. Multifocal vascular calcifications are as well. XR/XR hip LT min 2V IMPRESSION: Left gluteus minimus calcific tendinitis versus early enthesophyte formation. 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 Electronically signed by: Edouard Newsome MD 02/07/2025 03:56 PM EST
== END 2025-02-07 14:32 | disposition home or self-care (01) ==
LOC: HO.XRAY 14:31
PROVIDERS: PCP Internal Medicine; Visit Provider Internal Medicine
DX: M25.552 Pain in left hip (principal)
CPT/HCPCS: 73502; 85610; 99211

== ENCOUNTER 2025-02-07 14:31 | Outpatient (AMB) | payer MEDICARE, SELFPAY ==
--- OUTSIDE RECORDS SUMMARY | 2025-02-03 23:59 | XMS_ITS | Continuity of Care Document ---
Author Organization [facility] Address [address] [place] [address]- Care Team Providers Care Genetic Physician Name Role Phone Not on Staff, PCP Primary Care Physician Unavail able Encounter [facility] Date(s): 01/27/25 - 02/03/25 [facility] [address] [place] [address]- Attending Physician: Manpreet Dunn Referring Physician: Not on Staff, Referring MD [...] given a the option to go to [facility] Coumadin clinic or to go back to [facility] where she has been a patient [...] with transfer of care to Dr. Cruz. Social History Social History Type Response Smoking Status Never smoker; Tobacc o user in household: No entered on: 08/13/13 Sex Sex Representation Female (finding) EKG study * Event Display: ECG 12-Lead Authored Date: Please click on pdf link to open report * Event Display: ECG 12-Lead Authored Date: Ventricular Rate: 65 BPM Atrial Rate: 65 BPM P-R Interval: 188 ms QRS Duration: 106 ms Q-T Interval: 448 ms QTC Calculation(Bazett): 465 ms P Sunshine: 46 degrees R Sunshine: 24 degrees T Sunshine: 53 degrees Normal sinus rhythm Possible Left atrial enlargement Cannot rule out Anterior infarct (cited on or before 20-Nov-2022) Abnormal ECG When compared with ECG of 23-Apr-2023 15:50, No significant change was found Confirmed by Alex Fonseca ([id number]) on 01/27/2025 1:22:14 PM [place]: Alex Fonseca Note * Comfort Gray: PERFORM Event Display: Patient Education/Instruction Authored Date: Ambulatory Adult Visit Summary [facility]gent [address] [address] Name: RONNIE UNDERWOOD : 1940?? Visit: 01/27/2025 12:58?? Ambulatory Visit Instructions ?? Your Care Team Primary Care Provider Not on Staff, PCP?? This Visit Provider [facility] Your Diagnosis Chest pain What to do next Instructions From Your Provider Plan patient's chest pain appears to be musculoskeletal in origin.?? EKG was unchanged from previous tracing??completed 04/23/2023.?? She was encouraged to refrain from any heavy lifting??or moving offurniture.?? With??if her chest pain comes back shared decision making??she agreed that??and is worse in terms of intensity and duration??she should call an ambulance??for transport directly to the hospital.?? Patient will also discuss these episodes of chest discomfort with the artificial stone setter next week??who is also recommended that she get??a life alert.?? Since she lives alone??with her disabled daughter.?? Patient agreed with the plan. Future Orders CBC - Routine, Once, 01/21/25 13:14:00 EST, Order for Today, [facility], Blood?? Medications The list below reflects the information in our records and provided by you today along with any changes made during this visit. Please continue your medications until treatment is completed or stopped by your provider. If this is different from the information you have or there are other questions,please contact the prescribing provider. What How Much When Instructions Unchanged Clonazepam (ClonAZEPAM Tablet) 1 tab(s) Oral As needed for Anxiety Unchanged Dextroamphetamine (dextroamphetamine 15 mg oral capsule, extended release) 1 capsule Oral Daily in the morning Duration: 30 Days Unchanged Ergocalciferol (Vitamin D2 2000 intl units oral capsule) 1 capsule Oral Daily Unchanged Folic Acid Daily Unchanged Lisinopril (Lisinopril Tablet) 5 Milligram Oral Daily Unchanged Warfarin (warfarin 1 mg oral tablet) 2 tab(s) Oral Every Friday and Medications and Immunizations Administered Medications Given During Visit No medications given during this visit.?? Allergies (NKA means No Known Allergies) azithromycin Common Emergency Awareness Tips IS IT A STROKE? Act FAST and Check for these signs: FACE Does the face look uneven? ARM Does one arm drift down? SPEECH Does their speech sound strange? TIME Call at any sign of stroke ?? Heart Attack Signs Chest discomfort: Most heart attacks involve discomfort in the center of the chest and lasts more than a few minutes, or goes away and comes back. It can feel like uncomfortable pressure, squeezing, fullness or pain. Discomfort in upper body: Symptoms can include pain or discomfort in one or both arms, back, neck, jaw or stomach. Shortness of breath: With or without discomfort. Other signs: Breaking out in a cold sweat, nausea, or lightheaded. Remember, MINUTES DO MATTER. If you experience any of these heart attack warning signs, call to get immediate medical attention! ?? Smoking can increase your chances of developing chronic health problems and can cause harmful effects to other family members in your house. If you smoke, you are strongly encouraged to quit. Please call [facility] Link at [phone] or [phone] ([phone]) or log in to [email or web address] for referrals to smoking cessation programs. ?? The National Suicide Prevention Hotline is available 16/09 if you or someone you know needs to find a reason to keep living. By calling 0-359-752-[employer] (0833) you'll be connected to a skilled, trained counselor at a crisis center in your area. [facility] Portal You can view and manage your care through the patient portal or by using a health care nik of your choosing. [employer] is a website that allows you to securely view your medical information including your hospital discharge summary, office visit summaries, medications and follow-up visits. You can also request appointments, renew medications, and request access to your medical information using a health care nik of your choosing, or just ask a question. You can enroll at [email or web address] or register during your next office visit. [facility], in keeping with [facility] guidance, no longer requires face masks for staff, patientsor visitors in most situations. Similiar to time spent indoors at other locations, there is the chance that you were exposed to repiratory viruses during your time with us (such as flu or COVID-19). If you develop symptoms concerning for a viral respiratory infection, please seek testing (and treatment if indicated) from your medical provider or home test kit. ?? Disclaimer: The information provided is of a general nature and is intended to be used in conjunction with the recommendations and advice of your health care practitioner. Every effort has been made to ensure that the information provided is accurate and complete at the time it is provided to you however, as your needs change, or, as new information becomes available, different or additional instructions may be required. ?? If you have questions, please consult with your primary care provider or pharmacist, as appropriate. This information is not intended to serve as substitution for assessment and evaluation by a qualified health care provider. If you do not have a primary care provider, you may find a [facility] provider by calling [facility] Link at [phone]. Patient Care team information Care Team Personnel Name: Doroteo WILLIAM, Donavon Tidwell Position: [facility] Cardiology MD Member Role: Lifetime Consulting Physician Address: [address] [place] [address] Cardiovascular [place], [place] [address] Telecom: Name: Brook Bland RN Position: [facility] Rad RN Member Role: Primary Care Nurse Name: Not on Staff, PCP Position: [facility] Physician (General Medicine) Member Role: PCP Care Team Related Persons Name: RADAMES UNDERWOOD Name: KENDRA UNDERWOOD Name: RONNIE DIAZ Name: THEODORA MORELAND Insurance Providers Guarantor name: RONNIE UNDERWOOD Health Plan Information #: 1 Payer: MEDICARE B Payer Identifier: JEFF Member Number: [id number] Group Number: NA Subscriber Identifier: [id number] Relationship to Subscriber: self Coverage Type: NA Coverage Verification Date: NA Telecom: NA Address: Health Plan Information #: 2 Payer: MEDEX SECONDARY ONLY Payer Identifier: NA Member Number: [id number] Group Number: NA Subscriber Identifier: [id number] Relationship to Subscriber: self Coverage Type: Medicare Other Coverage Verification Date: NA Telecom: Address:
[2025-02-07 15:02] LABS: Prothrombin Time Whole Bld POC 37.7 sec (11.1-13.5); ~PT, ~INR - Anti Coag Clinic 3.1 (0.9-1.1)
--- NOTE | 2025-02-07 15:05 | MHC.OFFVISCO ---
Intake Intake Visit Reasons: Anticoagulation Allergies latex Allergy (Intermediate, Verified 02/07/25 14:56) Rash Medication List - Last Reconciled 02/07/25 by Chayito Moctezuma, RN acetaminophen 500 mg PO Q6H PRN amoxicillin 2,000 mg (4 x 500 mg) PO ONCE 1 day ascorbate calcium (vitamin C) 1 g PO DAILY bupropion HCl XL (Wellbutrin XL) 300 mg PO QAM clonazepam 0.5 mg PO BID PRN cyanocobalamin (vitamin B-12) PO folic acid 0.8 mg PO DAILY lisinopril 10 mg PO BID [multivitamin PO] [VIT D 3 K 2 PO] warfarin See Protocol 4 mg daily per INR per Anticoagulation Services 30 days Nursing Note INR: 3.1 out of therapeutic range of 2-3 Medications and supplements reviewed Patient status: no changes Medications or supplements: no changes Diet: usual diet for pt Denies any signs and symptoms of bleeding or clotting or unusual bruising Bleeding, bruising, clotting discussed Nutritional guidance given: to balance foods that raise the INR with foods that lower the INR Dose: 4mg daily F/U INR Date: 1 week?? Patient verbalizing understanding of instructions with read back given. 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
--- OUTSIDE RECORDS SUMMARY | 2025-02-07 20:57 | XMS_ITS | Encounter Summary ---
Author Organization [facility] Address [facility]ly [facility] W[place] [address] [place] [address] Phone Care Team Providers Care Senior Administrative Associate Name Role Phone Artie Meehan MD [...] st Contact Info) Description 02/18/2022 Anti-coag visit [facility] Anticoagulation Clinic [address] [place] [address] Rony Amaro, [facility] [address] [address] [email or web address] Social History Tobacco Use Types Packs/Day [...] Care Team (Late st Contact Info) Description 03/08/2025 9:30 AM EST Pre-Admission Testing [address] [address] Irineo Ruff MD [address] [place] [address] [email or web address] 03/15/2025 Procedure Pass [facility] Endoscopy Department [address] [place] [address] 03/15/2025 7:30 AM EST Hospital Encounter [facility] Endoscopy Department [address] [place] [address] Irineo Ruff MD [address] [place] [address] [email or web address] 03/15/2025 7:30 AM EST - 03/15/2025 8:15 AM EST Surgery [facility] Endoscopy Department [address] [place] [address] Irineo Ruff MD [address] [place] [address] [place] [address] [email or web address] [email or web address] Scheduled Procedures Name Priority Associated Diagnoses Date/Ti ny COLONOSCOPY Abnormal colonoscopy 03/15/2025 7:30 AM EST [...] as of this encounter Care Teams Senior Administrative Associate Relationship Specialty Start Date End Date Laura Mock MD, DMD [address] [address] [email or web address] PCP - General Internal Medicine 06/04/21 11/11/23 Pcp, Unknown PCP - General 11/12/23 11/16/23 Laura Mock MD, DMD [address] [address] [email or web address] PCP - General Internal Medicine 11/17/23 12/28/23 Pcp, Unknown PCP - General 02/28/24 03/04/24 [place] [address] [address] PCP - General 03/05/24 05/17/24 Laura Mock MD, DMD [address] [address] [email or web address] PCP - General Internal Medicine 05/18/24 Artie Meehan MD [address] [place] [address] [place] [address] Internal Medicine 10/26/17 04/23/22 Rina Swenson MD [address] [place] [address] [place] [address] Psychiatry 07/09/17 Laura Mock MD, DMD [address] [address] [email or web address] Partners Attributed Provider 09/01/21 07/03/23 Laura Mock MD, DMD [address] [address] [email or web address] Insurance Assigned Provider 05/31/23 03/01/24 Jakob Bob MD [address] [place] [address] [email or web address] Cardiology 08/22/23 Jose Cruz MD [address] [place] [address] Cardiology 08/22/23 Laura Mock MD, DMD [address] [address] [email or web address] du Partners Attributed Provider 09/01/21 07/03/23 [facility] [phone]. Consulting Provider 08/22/23 CARMINA, CAROLANN Connect 12/24/23 03/11/24 Cyril Morales [address] [place] [address] Nurse Practitioner 02/27/24 documented as of this encounter Additional Source Comments The information contained in this document represents components of the legal health record. It is not the complete legal health record.[facility]
--- OUTSIDE RECORDS SUMMARY | 2025-02-07 20:57 | XMS_ITS | Encounter Summary ---
Author Organization [facility] Address [address] [place] [address] Phone Care Team Providers Care Clothing Room Supervisor Name Role Phone Artie Meehan MD Unavailable Rina Swenson MD Unavailable Laura Mock MD, DMD Primary Car e Provider Laura Mock MD, DMD Unavailable Laura Mock MD, DMD Unavailable Jakob Bob MD Unavailable Jose Cruz MD Unavailable [phone] Laura Mock MD, DMD Unavailable Pcp, Unknown [...] PharmD [address] [place] [address] [email or web address] Social History Tobacco Use Types Packs/Day [...] Upcoming Encounters Date Type Department Care Team ([facility] st Contact Info) Description 03/08/2025 9:30 AM EST Pre-Admission Testing [address] [address] Irineo Ruff MD [address] [place] [address] [email or web address] 03/15/2025 Procedure Pass [facility] Endoscopy Department [address] [place] [address] 03/15/2025 7:30 AM EST Hospital Encounter [facility] Endoscopy Department [address] [place] [address] Irineo Ruff MD [address] [place] [address] [email or web address] 03/15/2025 7:30 AM EST - 03/15/2025 8:15 AM EST Surgery [facility] Endoscopy Department [address] [place] [address] Irineo Ruff MD [address] [place] [address] [email or web address] COLONOSCOPY Scheduled [...] documented as of this encounter Care Teams Clothing Room Supervisor Relationship Specialty Start Date End Date Laura Mock MD, DMD [address] [address] [email or web address] PCP - General Internal Medicine 06/04/21 11/11/23 Pcp, Unknown PCP - General 11/12/23 11/16/23 Laura Mock MD, DMD [address] [address] [email or web address] du PCP - General Internal Medicine 11/17/23 12/28/23 Pcp, Unknown PCP - General 02/28/24 03/04/24 [place] [address] [address] PCP - General 03/05/24 05/17/24 Laura Mock MD, DMD [address] [address] [email or web address] du PCP - General Internal Medicine 05/18/24 Artie Meehan MD [address] [place] [address] [place] [address] Internal Medicine 10/26/17 04/23/22 Rina Swenson MD [address] [place] [address] [place] [address] Psychiatry 07/09/17 Laura Mock MD, DMD 1 [facility] [address] [place] [address] [email or web address] Partners Attributed Provider 09/01/21 07/03/23 Laura Mock MD, DMD [address] [address] [email or web address] du Insurance Assigned Provider 05/31/23 03/01/24 Jakob Bob MD [address] [place] [address] [email or web address] Cardiology 08/22/23 Jose Cruz MD [address] [place] [address] Cardiology 08/22/23 Laura Mock MD, DMD [address] [address] [email or web address] Attributed Provider 09/01/21 07/03/23 [facility] [phone]. Consulting Provider 08/22/23 [facility] Connect 12/24/23 03/11/24 Cyril Morales [address] [place] [phone] Nurse Practitioner 02/27/24 documented as of this encounter Additional Source Comments The information contained in this document represents components of the legal health record. It is not the complete legal health record.[facility]
--- OUTSIDE RECORDS SUMMARY | 2025-02-07 20:57 | XMS_ITS | Encounter Summary ---
Author Organization [facility] Address [address] [facility] [address] [place] [address] Phone Care Team Providers Care Liability Claims Examiner Name Role Phone Rina Swenson MD Unavailable [phone] Laura Mock MD, DMD Primary Car e [...] st Contact Info) Description 12/25/2022 Procedure Pass [address] [address] Social History Tobacco Use Types Packs/Day Years [...] Description 03/08/2025 9:30 AM EST Pre-Admission Testing [address] [address] Irineo Ruff MD [address] [place] [address] [email or web address] 03/15/2025 Procedure Pass [facility] Endoscopy Department [address] [place] [address] 03/15/2025 7:30 AM EST Hospital Encounter [facility] Endoscopy Department [address] [place] [address] Irineo Ruff MD [address] [place] [address] [email or web address] 03/15/2025 7:30 AM EST - 03/15/2025 8:15 AM EST Surgery [facility] Endoscopy Department [address] [place] [address] Irineo Ruff MD [address] [place] [address] [email or web address] [email or web address] Scheduled Procedures Name Priority Associated [...] documented as of this encounter Care Teams Liability Claims Examiner Relationship Specialty Start Date End Date Laura Mock MD, DMD [address] [address] [email or web address] PCP - General Internal Medicine 06/04/21 11/11/23 Pcp, Unknown PCP - General 11/12/23 11/16/23 Laura Mock MD, DMD [address] [address] [email or web address] PCP - General Internal Medicine 11/17/23 12/28/23 Pcp, Unknown PCP - General 02/28/24 03/04/24 [place] [address] [place] [address] PCP - General 03/05/24 05/17/24 Laura Mock MD, DMD [address] [address] [email or web address] du PCP - General Internal Medicine 05/18/24 Rina Swenson MD Psychiatry 07/09/17 Laura Mock MD, DMD [address] [address] [email or web address] Attributed Provider 09/01/21 07/03/23 Laura Mock MD, DMD [address] [address] [email or web address] Insurance Assigned Provider 05/31/23 03/01/24 Jakob Bob MD [address] [place] [address] [email or web address] Cardiology 08/22/23 Jose Cruz MD [address] [place] [address] Cardiology 08/22/23 Laura Mock MD, DMD [address] [address] [email or web address] Attributed Provider 09/01/21 07/03/23 [place] [facility] [phone]. Consulting Provider 08/22/23 [facility] Connect 12/24/23 03/11/24 Cyril Morales [address] [place] [address] Nurse Practitioner 02/27/24 documented as of this encounter Additional Source Comments The information contained in this document represents components of the legal health record. It is not the complete legal health record.[facility]
--- OUTSIDE RECORDS SUMMARY | 2025-02-07 20:57 | XMS_ITS | Encounter Summary ---
Author Organization [facility] Address [facility] [employer] [address] [address] Phone Care Team Providers Care Crab Catcher Name Role Phone Rina Swenson MD Unavailable Laura Mock MD, DMD Primary Car e Provider Laura Mock MD, DMD Unavailable Laura Mock MD, DMD Unavailable Jakob Bob MD Unavailable [phone] Jose Cruz MD Unavailable Laura Mock MD, [...] Description 03/08/2025 9:30 AM EST Pre-Admission Testing [address] [address] Irineo Ruff MD [address] [place] [address] [email or web address] 03/15/2025 Procedure Pass [facility] Endoscopy Department [address] [place] [address] 03/15/2025 7:30 AM EST Hospital Encounter [facility] Endoscopy Department [address] [place] [address] Irineo Ruff MD [address] [place] [address] [email or web address] 03/15/2025 7:30 AM EST - 03/15/2025 8:15 AM EST Surgery [facility] Endoscopy Department [address] [place] [address] Irineo Ruff MD [address] [place] [address] [email or web address] COLONOSCOPY Scheduled Procedures Name Priority [...] documented as of this encounter Care Teams Crab Catcher Relationship Specialty Start Date End Date Laura Mock MD, DMD [address] [address] [email or web address] PCP - General Internal Medicine 06/04/21 11/11/23 Pcp, Unknown PCP - General 11/12/23 11/16/23 Laura Mock MD, DMD [address] [address] [email or web address] du PCP - General Internal Medicine 11/17/23 12/28/23 Pcp, Unknown PCP - General 02/28/24 03/04/24 [place] [address] [address] PCP - General 03/05/24 05/17/24 Laura Mock MD, DMD [address] [address] [email or web address] du PCP - General Internal Medicine 05/18/24 Rina Swenson MD Psychiatry 07/09/17 Laura Mock MD, DMD [address] [address] [email or web address] Partners Attributed Provider 09/01/21 07/03/23 Laura Mock MD, DMD [address] [address] [email or web address] Insurance Assigned Provider 05/31/23 03/01/24 Jakob Bob MD [address] [place] [address] [email or web address] Cardiology 08/22/23 Jose Cruz MD [address] [place] [address] Cardiology 08/22/23 Laura Mock MD, DMD [address] [address] [email or web address] Partners Attributed Provider 09/01/21 07/03/23 [place] [facility] [phone]. Consulting Provider 08/22/23 [facility] Connect 12/24/23 03/11/24 Cyirl Morales [address] [place] [phone] Nurse Practitioner 02/27/24 documented as of this encounter Additional Source Comments The information contained in this document represents components of the legal health record. It is not the complete legal health record.[facility]
--- OUTSIDE RECORDS SUMMARY | 2025-02-07 20:57 | XMS_ITS | Encounter Summary ---
Author Organization Located Within [facility] Address Critical access hospital [employer] [facility] [address] [place] [address] Phone Care Team Providers Care Telecommunication Equipment Repairer Name Role Phone Artie Meehan MD [...] st Contact Info) Description 04/05/2022 Anti-coag visit [facility] Anticoagulation Clinic [address] [place] [address] Melvin Stewart, [facility] [address] [place] [address] [email or web address] Social History Tobacco Use Types [...] Description 03/08/2025 9:30 AM EST Pre-Admission Testing [address] [address] Irineo Ruff MD [address] [place] [address] [email or web address] 03/15/2025 Procedure Pass [facility] Endoscopy Department [address] [place] [address] 03/15/2025 7:30 AM EST Hospital Encounter [facility] Endoscopy Department [address] [place] [address] Irineo Ruff MD [address] [place] [address] [email or web address] 03/15/2025 7:30 AM EST - 03/15/2025 8:15 AM EST Surgery [facility] Endoscopy Department [address] [place] [address] Irineo Ruff MD [address] [place] [address] [email or web address] COLONOSCOPY Scheduled Procedures Name [...] documented as of this encounter Care Teams Telecommunication Equipment Repairer Relationship Specialty Start Date End Date Laura Mock MD, DMD [address] [address] [email or web address] PCP - General Internal Medicine 06/04/21 11/11/23 Pcp, Unknown PCP - General 11/12/23 11/16/23 Laura Mock MD, DMD [address] [address] [email or web address] du PCP - General Internal Medicine 11/17/23 12/28/23 Pcp, Unknown PCP - General 02/28/24 03/04/24 Nicole Newell MD [address] [place] [address] PCP - General 03/05/24 05/17/24 Laura Mock MD, DMD [address] [address] [email or web address] du PCP - General Internal Medicine 05/18/24 Artie Meehan MD [address] [place] [address] [place] [address] Internal Medicine 10/26/17 04/23/22 Rina Swenson MD [address] [place] [address] [place] [address] Psychiatry 07/09/17 Laura Mock MD, DMD [address] [address] [email or web address] Partners Attributed Provider 09/01/21 07/03/23 Laura Mock MD, DMD [address] [address] [email or web address] du Insurance Assigned Provider 05/31/23 03/01/24 Jakob Bob MD [address] [place] [address] [place] [address] [email or web address] Cardiology 08/22/23 Jose Cruz MD [address] [place] [address] Cardiology 08/22/23 Laura Mock MD, DMD [address] [address] [email or web address] du Partners Attributed Provider 09/01/21 07/03/23 [facility] [phone]. Consulting Provider 08/22/23 [facility] Connect 12/24/23 03/11/24 Cyril Morales [address] [place] [address] Nurse Practitioner 02/27/24 documented as of this encounter Additional Source Comments The information contained in this document represents components of the legal health record. It is not the complete legal health record.[facility]
--- OUTSIDE RECORDS SUMMARY | 2025-02-07 20:57 | XMS_ITS | Encounter Summary ---
Author Organization [facility] Address Formerly [facility] [employer] [address] [address] Phone Care Team Providers Care Town Planner Name Role Phone Artie Meehan MD Unavailable Rina Swenson MD Unavailable Laura Mock MD, DMD Primary Car e Provider Laura Mock MD, DMD Unavailable Laura Mock MD, DMD Unavailable Jakob Bob MD Unavailable Jose Cruz MD Unavailable Larua Mock MD, DMD Unavailable Pcp, Unknown Primary [...] Description 03/08/2025 9:30 AM EST Pre-Admission Testing [address] 2nd [place] [address] Irineo Ruff MD [address] [place] [address] [email or web address] 03/15/2025 Procedure Pass [facility] Endoscopy Department [address] [place] [address] 03/15/2025 7:30 AM EST Hospital Encounter [facility] Endoscopy Department [address] [place] [address] Irineo Ruff MD [address] [place] [address] [email or web address] 03/15/2025 7:30 AM EST - 03/15/2025 8:15 AM EST Surgery [facility] Endoscopy Department [address] [place] [address] Irineo Ruff MD [address] [place] [address] [email or web address] COLONOSCOPY Scheduled Procedures Name Priority Associated Diagnoses Date/Ti me COLONOSCOPY Abnormal colonoscopy 03/15/2025 7:30 AM EST documented as of this encounter Visit Diagnoses Not on filedocumented in this encounter Additional Health Concerns Infection Onset Date Last Indicated Resolved Time CoV-Presumed 03/23/2022 03/23/202204/1304/13/2022 1:23 AM EST CoV-Risk 11/12/2023 11/12/2023 11/12/2023 5:12 PM EDT COVID-19 11/12/2023 11/12/2023 12/03/2023 1:21 AM EDT Assessment Noted Time PHQ-2 Depression Total Score: 2 08/03/19 22 2:01 PM EDT documented as of this encounter Care Teams Town Planner Relationship Specialty Start Date End Date Laura Mock MD, DMD [address] [address] [email or web address] du PCP - General Internal Medicine 06/04/21 11/11/23 Pcp, Unknown PCP - General 11/12/23 11/16/23 Laura Mock MD, DMD [address] [address] [email or web address] PCP - General Internal Medicine 11/17/23 12/28/23 Pcp, Unknown PCP - General 02/28/24 03/04/24 [place] [address] [address] PCP - General 03/05/24 05/17/24 Laura Mock MD, DMD [address] [address] [email or web address] du PCP - General Internal Medicine 05/18/24 Artie Meehan MD [address] [place] [address] [place] [address] Internal Medicine 10/26/17 04/23/22 Rina Swenson MD [address] [place] [address] [place] [address] Psychiatry 07/09/17 Lauar Mock MD, DMD 1 [facility] [address] [place] [address] [email or web address] Partners Attributed Provider 09/01/21 07/03/23 Laura Mock MD, DMD [address] [address] [email or web address] du Insurance Assigned Provider 05/31/23 03/01/24 Jakob Bob MD [address] [place] [address] [email or web address] Cardiology 08/22/23 Jose Cruz MD [address] [place] [address] Cardiology 08/22/23 Laura Mock MD, DMD [address] [address] [email or web address] du Partners Attributed Provider 09/01/21 07/03/23 [place] [facility] [phone]. Consulting Provider 08/22/23 [facility] Connect 12/24/23 03/11/24 Cyril Morales [address] [place] [address] Nurse Practitioner 02/27/24 documented as of this encounter Additional Source Comments The information contained in this document represents components of the legal health record. It is not the complete legal health record.[facility]
--- OUTSIDE RECORDS SUMMARY | 2025-02-07 20:57 | XMS_ITS | Encounter Summary ---
Author Organization [facility] Address [address] [employer] [facility] [address] [place] [address] Phone Care Team Providers Care Carpet Or Rug Layer Helper Name Role Phone Artie Meehan MD Primary Care Provider [phone] Artie Meehan MD Unavailable [phone] Rina Swenson MD Unavailable [phone] Laura Mock MD, DMD Primary Car e Provider Laura Mock MD, DMD Unavailable Laura Mock MD, DMD Unavailable Jakob Bob MD Unavailable [phone] Jose Cruz MD Unavailable Laura Mock MD, DMD Unavailable Pcp, Unknown Primary Care Provider UnavailLaura Ascencio MD, DMD Primary Car e Provider Pcp, Unknown Primary Care Provider UnavailNicole Arguello MD Primary Care Provide r Laura Mock MD, DMD Primary Car e Provider Encounter Details Date Type Department Care Team (Late st Contact Info) Description 07/06/2020 Procedure Pass [facility] [address] [place] [address] Social History Tobacco Use Types Packs/Day Years [...] Description 03/08/2025 9:30 AM EST Pre-Admission Testing [address] 2[address] [place] [address] Irineo Ruff MD [address] [place] [address] [email or web address] 03/15/2025 Procedure Pass [facility] Endoscopy Department [address] [place] [address] 03/15/2025 7:30 AM EST Hospital Encounter [facility] Endoscopy Department [address] [place] [address] Irineo Ruff MD [address] [place] [address] [email or web address] 03/15/2025 7:30 AM EST - 03/15/2025 8:15 AM EST Surgery [facility] Endoscopy Department [address] [place] [address] Irineo Ruff MD [address] [place] [address] [email or web address] COLONOSCOPY Scheduled Procedures Name Priority [...] documented as of this encounter Care Teams Carpet Or Rug Layer Helper Relationship Specialty Start Date End Date Artie Meehan MD [address] [place] [address] Dr Dior [facility] [place] [address] PCP - General Internal Medicine 10/26/17 06/03/21 Laura Mock MD, DMD [address] [address] [email or web address] du PCP - General Internal Medicine 06/04/21 11/11/23 Pcp, Unknown PCP - General 11/12/23 11/16/23 Laura Mock MD, DMD [address] [address] [email or web address] du PCP - General Internal Medicine 11/17/23 12/28/23 Pcp, Unknown PCP - General 02/28/24 03/04/24 [place] [address] [address] PCP - General 03/05/24 05/17/24 Laura Mock MD, DMD [address] [address] [email or web address] du PCP - General Internal Medicine 05/18/24 Artie Meehan MD [address] [place] [address] [place] [address] Internal Medicine 10/26/17 04/23/22 Rina Swenson MD [address] [place] [address] [place] [address] Psychiatry 07/09/17 Laura Mock MD, DMD [address] [address] [email or web address] Partners Attributed Provider 09/01/21 07/03/23 Laura Mock MD, DMD [address] [address] [email or web address] du Insurance Assigned Provider 05/31/23 03/01/24 Jakob Bob MD [address] [place] [address] [email or web address] Cardiology 08/22/23 Jose Cruz MD [address] [place] [address] [email or web address] Cardiology 08/22/23 Laura Mock MD, DMD [address] [address] [place] [address] [email or web address] du Partners Attributed Provider 09/01/21 07/03/23 [place] [facility] [phone]. Consulting Provider 08/22/23 [facility] Connect 12/24/23 03/11/24 Cyril Morales [address] [place] [phone] Nurse Practitioner 02/27/24 documented as of this encounter Additional Source Comments The information contained in this document represents components of the legal health record. It is not the complete legal health record.[facility]
--- OUTSIDE RECORDS SUMMARY | 2025-02-07 20:57 | XMS_ITS | Encounter Summary ---
Author Organization [facility] Address [address] [employer] [facility] [address] [place] [address] Phone Care Team Providers Care Supervisor Welding Equipment Repairer Name Role Phone Artie Meehan MD Primary Care Provider [phone] rAtie Meehan MD Unavailable [phone] Rina Swenson MD Unavailable Laura Mock MD, [...] st Contact Info) Description 12/16/2019 Procedure Pass [address] [address] Social History Tobacco Use Types Packs/Day Years [...] Upcoming Encounters Date Type Department Care Team ([facility] st Contact Info) Description 03/08/2025 9:30 AM EST Pre-Admission Testing [address] [address] Irineo Ruff MD [address] [place] [address] [email or web address] 03/15/2025 Procedure Pass [facility] Endoscopy Department [address] [place] [address] 03/15/2025 7:30 AM EST Hospital Encounter [facility] Endoscopy Department [address] [place] [address] Irineo Ruff MD [address] [place] [address] [email or web address] 03/15/2025 7:30 AM EST - 03/15/2025 8:15 AM EST Surgery [facility] Endoscopy Department [address] [place] [address] Irineo Ruff MD [address] [place] [address] [email or web address] COLONOSCOPY Scheduled Procedures Name Priority [...] as of this encounter Care Teams Supervisor Welding Equipment Repairer Relationship Specialty Start Date End Date Artie Meehan MD [address] [place] [address] Dr Dior [facility] [place] [address] PCP - General Internal Medicine 10/26/17 06/03/21 Laura Mock MD, DMD [address] [address] [email or web address] PCP - General Internal Medicine 06/04/21 11/11/23 Pcp, Unknown PCP - General 11/12/23 11/16/23 Laura Mock MD, DMD [address] [address] [email or web address] du PCP - General Internal Medicine 11/17/23 12/28/23 Pcp, Unknown PCP - General 02/28/24 03/04/24 [place] [address] [place] [address] PCP - General 03/05/24 05/17/24 Laura Mock MD, DMD [address] [address] [email or web address] du PCP - General Internal Medicine 05/18/24 Artie Meehan MD [address] [place] [address] [place] [address] Internal Medicine 10/26/17 04/23/22 Rina Swenson MD [address] [place] [address] [place] [address] Psychiatry 07/09/17 Laura Mock MD, DMD [address] [address] [email or web address] Partners Attributed Provider 09/01/21 07/03/23 Laura Mock MD, DMD [address] [address] [email or web address] Insurance Assigned Provider 05/31/23 03/01/24 Jakob Bob MD [address] [place] [address] [email or web address] Cardiology 08/22/23 Jose Cruz MD [address] [place] [address] Cardiology 08/22/23 Laura Mock MD, DMD [address] [address] [email or web address] Partners Attributed Provider 09/01/21 07/03/23 [place] [facility] [phone]. Consulting Provider 08/22/23 [facility] Connect 12/24/23 03/11/24 Cyril Morales [address] [place] [address] Nurse Practitioner 02/27/24 documented as of this encounter Additional Source Comments The information contained in this document represents components of the legal health record. It is not the complete legal health record.[facility]
--- OUTSIDE RECORDS SUMMARY | 2025-02-07 20:57 | XMS_ITS | Encounter Summary ---
Author Organization [facility] Address [address] [employer] [facility] [address] [place] [address] Phone Care Team Providers Care Finish Molder Name Role Phone Artie Meehan MD Primary Care Provider [phone] Artie Meehan MD Unavailable [phone] Rina Swenson MD Unavailable [phone] Laura Mock MD, DMD Primary Car e Provider Laura Mock MD, DMD Unavailable Laura Mock MD, DMD Unavailable Jakob Bob MD Unavailable [phone] Jose Cruz MD Unavailable Laura Mock MD, DMD Unavailable Pcp, Unknown Primary Care Provider UnavailLaura Ascencio MD, DMD Primary Car e Provider Pcp, Unknown Primary Care Provider UnavailNicole Arguello MD Primary Care Provide r Laura Mock MD, DMD Primary Car e Provider Encounter Details Date Type Department Care Team (Late st Contact Info) Description 04/06/2019 Ancillary Orders Virtual Department [address] [place] [address] Artie Meehan MD [address] [place] [address] [place] [address] Menopausal state Social History Tobacco Use Types [...] Description 03/08/2025 9:30 AM EST Pre-Admission Testing [address] [address] Irineo Ruff MD [address] [place] [address] [email or web address] 03/15/[address] [facility] Endoscopy Department [address] [place] [address] 03/15/2025 7:30 AM EST Hospital Encounter [facility] Endoscopy Department [address] [place] [address] Irineo Ruff MD [address] [place] [address] [email or web address] 03/15/2025 7:30 AM EST - 03/15/2025 8:[address] [facility] Endoscopy Department [address] [place] [address] Irineo Ruff MD [address] [place] [address] [place] [address] [email or web address] COLONOSCOPY Scheduled Procedures Name Priority Associated Diagnoses [...] documented as of this encounter Care Teams Finish Molder Relationship Specialty Start Date End Date Artie Meehan MD [address] [place] [address] Dr D[address] [place] [address] PCP - General Internal Medicine 10/26/17 06/03/21 Laura Mock MD, DMD [address] [address] [email or web address] du PCP - General Internal Medicine 06/04/21 11/11/23 Pcp, Unknown PCP - General 11/12/23 11/16/23 Laura Mock MD, DMD [address] [address] [email or web address] PCP - General Internal Medicine 11/17/23 12/28/23 Pcp, Unknown PCP - General 02/28/24 03/04/24 Nicole Newell MD [address] [place] [address] PCP - General 03/05/24 05/17/24 Laura Mock MD, DMD [address] [address] [email or web address] PCP - General Internal Medicine 05/18/24 Artie Meehan MD [address] [place] [address] [place] [address] Internal Medicine 10/26/17 04/23/22 Rina Swenson MD [address] [place] [address] [place] [address] Psychiatry 07/09/17 Laura Mock MD, DMD [address] [address] [email or web address] du Partners Attributed Provider 09/01/21 07/03/23 Laura Mock MD, DMD [address] [address] [email or web address] du Insurance Assigned Provider 05/31/23 03/01/24 Jakob Bob MD [address] [place] [address] [place] [address] [email or web address] Cardiology 08/22/23 Jose Cruz MD [address] [place] [address], [address] [place] [address] Cardiology 08/22/23 Laura Mock MD, DMD [address] [address] [email or web address] Partners Attributed Provider 09/01/21 07/03/23 [facility] [phone]. Consulting Provider 08/22/23 [facility] Connect 12/24/23 03/11/24 Cyril Morales [address] [place] [phone] Nurse Practitioner 02/27/24 documented as of this encounter Additional Source Comments The information contained in this document represents components of the legal health record. It is not the complete legal health record.[facility]
--- OUTSIDE RECORDS SUMMARY | 2025-02-07 20:57 | XMS_ITS | Encounter Summary ---
Author Organization [facility] Address [address] [employer] [facility] [address] [place] [address] Phone Care Team Providers Care Warm In Name Role Phone Artie Meehan MD Primary Care Provider [phone] Artie Meehan MD Unavailable Rina Swenson MD [...] Info) Description 12/16/2019 Ancillary Orders Virtual Department [address] [place] [address] Artie Meehan MD [address] [place] [address] [place] [address] Breast screening Social History Tobacco Use Types [...] Description 03/08/2025 9:30 AM EST Pre-Admission Testing [address] [address] Irineo Ruff MD [address] [place] [address] [email or web address] 03/15/2025 Procedure Pass [facility] Endoscopy Department [address] [place] [address] 03/15/2025 7:30 AM EST Hospital Encounter [facility] Endoscopy Department [address] [place] [address] Irineo Ruff MD [address] [place] [address] [email or web address] 03/15/2025 7:30 AM EST - 03/15/2025 8:15 AM EST Surgery [facility] Endoscopy Department [address] [place] [address] Irineo Ruff MD [address] [place] [address] [place] [address] [email or web address] Scheduled Procedures Name Priority Associated Diagnoses Date/Ti ia COLONOSCOPY Abnormal colonoscopy 03/15/2025 7:30 AM EST [...] documented as of this encounter Care Teams Warm In Relationship Specialty Start Date End Date Artie Meehan MD [address] [place] [address] Dr Dior [facility] [place] [address] PCP - General Internal Medicine 10/26/17 06/03/21 Laura Mock MD, DMD [address] [address] [email or web address] du PCP - General Internal Medicine 06/04/21 11/11/23 Pcp, Unknown PCP - General 11/12/23 11/16/23 Laura Mock MD, DMD [address] [address] [email or web address] du PCP - General Internal Medicine 11/17/23 12/28/23 Pcp, Unknown PCP - General 02/28/24 03/04/24 [place] [address] [address] PCP - General 03/05/24 05/17/24 Laura Mock MD, DMD [address] [address] [email or web address] du PCP - General Internal Medicine 05/18/24 Artie Meehan MD [address] [place] [address] [place] [address] Internal Medicine 10/26/17 04/23/22 Rina Swenson MD [address] [place] [address] [place] [address] Psychiatry 07/09/17 Laura Mock MD, DMD 1 [facility] [address] [place] [address] [email or web address] du Partners Attributed Provider 09/01/21 07/03/23 Laura Mock MD, DMD [address] [address] [email or web address] du Insurance Assigned Provider 05/31/23 03/01/24 Jakob Bob MD [address] [place] [address] [email or web address] Cardiology 08/22/23 Jose Cruz MD [address] [place] [address] Cardiology 08/22/23 Laura Mock MD, DMD [address] [address] [email or web address] Partners Attributed Provider 09/01/21 07/03/23 [place] [facility] [phone]. Consulting Provider 08/22/23 [facility] Connect 12/24/23 03/11/24 Cyril Morales [address] [place] [phone] Nurse Practitioner 02/27/24 documented as of this encounter Additional Source Comments The information contained in this document represents components of the legal health record. It is not the complete legal health record.[facility]
--- OUTSIDE RECORDS SUMMARY | 2025-02-07 20:57 | XMS_ITS | Encounter Summary ---
Author Organization [facility] Address 399 [address] [employer] [facility] [address] [place] [address] Phone Care Team Providers Care Sediment Remediation Consultant Name Role Phone Artie Meehan MD Primary Care Provider [phone] Artie Meehan MD Unavailable Rina Swenson MD Unavailable [phone] Laura Mock MD, DMD Primary Car e [...] Description 11/15/2020 Transcribe Orders Virtual Department [address] [place] [address] Artie Meehan MD [address] [place] [address] [place] [address] Asymptomatic menopausal state (Primary Dx); Age-related osteoporosis [...] Description 03/08/2025 9:30 AM EST Pre-[facility]mission [facility] [address] [place] [address] Irineo Ruff MD [address] [place] [address] [email or web address] 03/15/2025 Procedure Pass [facility] Endoscopy Department [address] [place] [address] 03/15/2025 7:30 AM EST Hospital Encounter [facility] Endoscopy Department [address] [place] [address] Irineo Ruff MD [address] [place] [address] [email or web address] 03/15/2025 7:30 AM EST - 03/15/2025 8:15 AM EST Surgery [facility] Endoscopy Department [address] [place] [address] Irineo Ruff MD [address] [place] [address] [phone] (work) [email or web address] COLONOSCOPY Scheduled Procedures Name Priority Associated Diagnoses Date/Ti nv COLONOSCOPY Abnormal colonoscopy 03/15/2025 7:30 AM EST [...] bone mineral density was calculated at 0.409 gm/eb8rmds a T- score of -4 falling within [...] documented as of this encounter Care Teams Sediment Remediation Consultant Relationship Specialty Start Date End Date Artie Meehan MD [address] [place] [address] [place] [address] PCP - General Internal Medicine 10/26/17 06/03/21 Laura Mock MD, DMD 1 [facility] [address] [place] [address] [email or web address] du PCP - General Internal Medicine 06/04/21 11/11/23 Pcp, Unknown PCP - General 11/12/23 11/16/23 Laura Mock MD, DMD [address] [address] [email or web address] du PCP - General Internal Medicine 11/17/23 12/28/23 Pcp, Unknown PCP - General 02/28/24 03/04/24 [place] [address] [address] PCP - General 03/05/24 05/17/24 Laura Mock MD, DMD [address] [address] [email or web address] du PCP - General Internal Medicine 05/18/24 Artie Meehan MD [address] [place] [address] [place] [address] Internal Medicine 10/26/17 04/23/22 Rina Swenson MD [address] [place] [address] [facility] [place] [address] Psychiatry 07/09/17 Laura Mock MD, DMD [address] [address] [email or web address] Partners Attributed Provider 09/01/21 07/03/23 EmiliLaura ruiz MD, DMD 1 [facility] [address] [place] [address] [email or web address] du Insurance Assigned Provider 05/31/23 03/01/24 Jakob Bob MD 75 [facility] [address] [place] [address] [email or web address] Cardiology 08/22/23 Jose Cruz MD [address] [place] [address] [address] [place] [address] [email or web address] Cardiology 08/22/23 Laura Mock MD, DMD [address] [address] [email or web address] Partners Attributed Provider 09/01/21 07/03/23 [place] [phone]. Consulting Provider 08/22/23 [facility] Connect 12/24/23 03/11/24 Cyril Morales [address] [place] [address] Nurse Practitioner 02/27/24 documented as of this encounter Additional Source Comments The information contained in this document represents components of the legal health record. It is not the complete legal health record.[facility]
--- OUTSIDE RECORDS SUMMARY | 2025-02-07 20:57 | XMS_ITS | Encounter Summary ---
Author Organization [facility] Address [address] [place] [address] [place] [address] Phone Care Team Providers Care Account Technician Name Role Phone Rina Swenson MD [...] st Contact Info) Description 01/21/2023 Anti-coag visit [facility] Anticoagulation Clinic [address] [place] [address] Purvi Lawler, PharmD [address] [place] [address] [email or web address] Social History Tobacco Use [...] Description 03/08/2025 9:30 AM EST Pre-Admission Testing [facility] [address] [facility] [address] [place] [address] Irineo Ruff MD [address] [place] [address] [place] [address] [email or web address] 03/15/2025 Procedure Pass [facility] Endoscopy Department [address] [place] [address] 03/15/2025 7:30 AM EST Hospital Encounter [facility] Endoscopy Department [address] [place] [address] Irineo Ruff MD [address] [place] [address] [email or web address] 03/15/2025 7:30 AM EST - 03/15/2025 8:15 AM EST Surgery [facility] Endoscopy Department [address] [place] [address] Irineo Ruff MD [address] [place] [address], [place] [address] [email or web address] COLONOSCOPY Scheduled Procedures Name Priority Associated Diagnoses [...] as of this encounter Care Teams Account Technician Relationship Specialty Start Date End Date Laura Mock MD, DMD [address] [address] [email or web address] PCP - General Internal Medicine 06/04/21 11/11/23 Pcp, Unknown PCP - General 11/12/23 11/16/23 Laura Mock MD, DMD [address] [address] [email or web address] du PCP - General Internal Medicine 11/17/23 12/28/23 Pcp, Unknown PCP - General 02/28/24 03/04/24 [place] [address] [address] PCP - General 03/05/24 05/17/24 Laura Mock MD, DMD [address] [address] [email or web address] PCP - General Internal Medicine 05/18/24 Rina Swenson MD Psychiatry 07/09/17 Laura Mock MD, DMD [address] [address] [email or web address] du Partners Attributed Provider 09/01/21 07/03/23 Laura Mock MD, DMD [address] [address] [email or web address] du Insurance Assigned Provider 05/31/23 03/01/24 Jakob Bob MD [address] [place] [address] [email or web address] Cardiology 08/22/23 Jose Cruz MD [address] [place] [address] Cardiology 08/22/23 Laura Mock MD, DMD [address] [address] [email or web address] Partners Attributed Provider 09/01/21 07/03/23 [facility] [phone]. Consulting Provider 08/22/23 [facility] Connect 12/24/23 03/11/24 Cyril Morales [address] [place] [address] Nurse Practitioner 02/27/24 documented as of this encounter Additional Source Comments The information contained in this document represents components of the legal health record. It is not the complete legal health record.[facility]
--- OUTSIDE RECORDS SUMMARY | 2025-02-07 20:57 | XMS_ITS | Encounter Summary ---
Author Organization [facility] Address [facility] [employer] [address] [address] Phone Care Team Providers Care Ice Skating Instructor Name Role Phone Artie Meehan MD Unavailable Rina Swenson MD Unavailable [phone] Laura Mock MD, DMD Primary Car e [...] 03/08/2025 9:30 AM EST Pre-Admission Testing [address] 2nd [place] [address] Irineo Ruff MD [address] [place] [address] [email or web address] 03/15/2025 Procedure Pass [facility] Endoscopy Department [address] [place] [address] 03/15/2025 7:30 AM EST Hospital Encounter [facility] Endoscopy Department [address] [place] [address] Irineo Ruff MD [address] [place] [address] [email or web address] 03/15/2025 7:30 AM EST - 03/15/2025 8:15 AM EST Surgery [facility] Endoscopy Department [address] [place] [address] Irineo Ruff MD [address] [place] [address] [email or web address] COLONOSCOPY Scheduled Procedures Name [...] as of this encounter Care Teams Ice Skating Instructor Relationship Specialty Start Date End Date Laura Mock MD, DMD [address] [address] [email or web address] du PCP - General Internal Medicine 06/04/21 11/11/23 Pcp, Unknown PCP - General 11/12/23 11/16/23 Laura Mock MD, DMD [address] [address] [email or web address] PCP - General Internal Medicine 11/17/23 12/28/23 Pcp, Unknown PCP - General 02/28/24 03/04/24 [place] [address] [address] PCP - General 03/05/24 05/17/24 Laura Mock MD, DMD [address] [address] [email or web address] du PCP - General Internal Medicine 05/18/24 Artie Meehan MD [address] [place] [address] Dr Dior [facility] [place] [address] Internal Medicine 10/26/17 04/23/22 Rina Swenson MD [address] [place] [address] [place] [address] Psychiatry 07/09/17 Laura Mock MD, DMD [address] [address] [email or web address] Partners Attributed Provider 09/01/21 07/03/23 Laura Mock MD, DMD [address] [address] [email or web address] du Insurance Assigned Provider 05/31/23 03/01/24 Jakob Bob MD [address] [place] [address] [email or web address] Cardiology 08/22/23 Jose Cruz MD [address] [place] [address] Cardiology 08/22/23 Laura Mock MD, DMD [address] [address] [email or web address] Partners Attributed Provider 09/01/21 07/03/23 [place] [facility] [phone]. Consulting Provider 08/22/23 [facility] Connect 12/24/23 03/11/24 Cyril Morales [address] [place] [address] Nurse Practitioner 02/27/24 documented as of this encounter Additional Source Comments The information contained in this document represents components of the legal health record. It is not the complete legal health record.[facility]
--- OUTSIDE RECORDS SUMMARY | 2025-02-07 20:57 | XMS_ITS | Encounter Summary ---
Author Organization [facility] Address 399 @[employer] [facility] [address] [place] [address] Phone Care Team Providers Care Saddle Cutter Name Role Phone Artie Meehan MD Primary Care Provider [phone] Artie Meehan MD Unavailable [phone] Rina Swenson MD Unavailable Laura Mock MD, [...] st Contact Info) Description 11/07/2020 Procedure Pass [facility], [address] [address] Social History Tobacco Use Types Packs/Day Years [...] Upcoming Encounters Date Type Department Care Team ([facility] st Contact Info) Description 03/08/2025 9:30 AM EST Pre-Admission Testing [address] 2nd [place] [address] Irineo Ruff MD [address] [place] [address] [email or web address] 03/15/2025 Procedure Pass [facility] Endoscopy Department [address] [place] [address] 03/15/2025 7:30 AM EST Hospital Encounter [facility] Endoscopy Department [address] [place] [address] Irineo Ruff MD [address] [place] [address] [email or web address] 03/15/2025 7:30 AM EST - 03/15/2025 8:15 AM EST Surgery [facility] Endoscopy Department [address] [place] [address] Irineo Ruff MD [address] [place] [address] [email or web address] COLONOSCOPY Scheduled Procedures Name Priority [...] as of this encounter Care Teams Saddle Cutter Relationship Specialty Start Date End Date Artie Meehan MD [address] [place] [address] Dr Dior [facility] [place] [address] PCP - General Internal Medicine 10/26/17 06/03/21 Laura Mock MD, DMD [address] [address] [email or web address] du PCP - General Internal Medicine 06/04/21 11/11/23 Pcp, Unknown PCP - General 11/12/23 11/16/23 Laura Mock MD, DMD [address] [address] [email or web address] du PCP - General Internal Medicine 11/17/23 12/28/23 Pcp, Unknown PCP - General 02/28/24 03/04/24 [place] [address] [place] [address] PCP - General 03/05/24 05/17/24 Laura Mock MD, DMD [address] [address] [email or web address] du PCP - General Internal Medicine 05/18/24 Artie Meehan MD [address] [place] [address] [place] [address] Internal Medicine 10/26/17 04/23/22 Rina Swenson MD [address] [place] [address] [place] [address] Psychiatry 07/09/17 Laura Mock MD, DMD [address] [address] [email or web address] du Partners Attributed Provider 09/01/21 07/03/23 Laura Mock MD, DMD [address] [address] [email or web address] du Insurance Assigned Provider 05/31/23 03/01/24 Jakob Bob MD [address] [place] [address] [email or web address] Cardiology 08/22/23 Jose Cruz MD [address] [place] [address] Cardiology 08/22/23 Laura Mock MD, DMD [address] [address] [email or web address] du Partners Attributed Provider 09/01/21 07/03/23 [place] [facility] [phone]. Consulting Provider 08/22/23 CARMINA, CAROLANN Connect 12/24/23 03/11/24 Cyril Morales [address] [place] [address] Nurse Practitioner 02/27/24 documented as of this encounter Additional Source Comments The information contained in this document represents components of the legal health record. It is not the complete legal health record.[facility]
--- OUTSIDE RECORDS SUMMARY | 2025-02-07 20:57 | XMS_ITS | Encounter Summary ---
Author Organization [facility] Address 399 [facility] [address] [place] [address] Phone Care Team Providers Care Reverse Logistics Analyst Name Role Phone Artie Meehan MD Primary Care Provider [phone] Artie Meehan MD Unavailable Rina Swenson MD Unavailable [phone] Laura Mock MD, DMD Primary Car e Provider Laura Mock MD, DMD Unavailable Laura Mock MD, DMD Unavailable Jakob Bob MD Unavailable [phone] Jose Cruz MD Unavailable Laura Mock MD, [...] (Late st Contact Info) Description 12/09/2017 Telephone [facility] Urology [address] [facility] ASB2-3 [place] [address] Maureen De Los [email or web address] Question regarding Symtoms (Former pt. of Dr. [...] Description 03/08/2025 9:30 AM EST [facility] [place] [address] [facility] 2nd [place] [address] Irineo Ruff MD [address] [place] [address] [email or web address] 03/15/2025 Procedure Pass [facility] Endoscopy Department [address] [place] [address] 03/15/2025 7:30 AM EST Hospital Encounter [facility] Endoscopy Department [address] [place] [address] Irineo Ruff MD [address] [place] [address] [email or web address]@[facility] 03/15/2025 7:30 AM EST - 03/15/2025 8:15 AM EST Surgery [facility] Endoscopy Department [address] [place] [address] Irineo Ruff MD [address] [place] [address] [email or web address] [email or web address] Scheduled Procedures Name Priority [...] documented as of this encounter Care Teams Reverse Logistics Analyst Relationship Specialty Start Date End Date Artie Meehan MD [address] [place] [address] [place] [address] PCP - General Internal Medicine 10/26/17 06/03/21 Laura Mock MD, DMD [address] [address] [email or web address] PCP - General Internal Medicine 06/04/21 11/11/23 Pcp, Unknown PCP - General 11/12/23 11/16/23 Laura Mock MD, DMD [address] [address] [email or web address] PCP - General Internal Medicine 11/17/23 12/28/23 Pcp, Unknown PCP - General 02/28/24 03/04/24 Nicole Newell MD [address] [place] [address] PCP - General 03/05/24 05/17/24 Laura Mock MD, DMD [address] [address] [email or web address] du PCP - General Internal Medicine 05/18/24 Artie Meehan MD [address] [place] [address] [place] [address] Internal Medicine 10/26/17 04/23/22 Rina Swenson MD [address] [place] [address] [facility] [address] Psychiatry 07/09/17 Laura Mock MD, DMD [address] [address] [email or web address] Partners Attributed Provider 09/01/21 07/03/23 Laura Mock MD, DMD [address] [address] [email or web address] Insurance Assigned Provider 05/31/23 03/01/24 Jakob Bob MD [address] [place], [place] [address] [place] [address] [email or web address] Cardiology 08/22/23 Jose Cruz MD [address] [place] [address] [address] [place] [address] Cardiology 08/22/23 Laura Mock MD, DMD [address] [place] [address] [email or web address]. [email or web address] Partners Attributed Provider 09/01/21 07/03/23 [facility] [phone]. Consulting Provider 08/22/23 [facility] Connect 12/24/23 03/11/24 Cyril Morales [address] [place] [address] Nurse Practitioner 02/27/24 documented as of this encounter Additional Source Comments The information contained in this document represents components of the legal health record. It is not the complete legal health record.[facility]
--- OUTSIDE RECORDS SUMMARY | 2025-02-07 20:57 | XMS_ITS | Encounter Summary ---
Author Organization [facility] Address [facility] [employer] [facility] [address] [place] [address] Phone Care Team Providers Care Inspector Packer Name Role Phone Artie Meehan MD [...] st Contact Info) Description 10/19/2021 Anti-coag visit [facility] Anticoagulation Clinic [address] [place] [address] Melvin Stewart, [facility] [address] [place] [address] [email or web address] Social History Tobacco Use Types Packs/Day [...] Description 03/08/2025 9:30 AM EST Pre-Admission Testing [address] [address] Irineo Ruff MD [address] [place] [address] [email or web address] 03/15/2025 Procedure Pass [facility] Endoscopy Department [address] [place] [address] 03/15/2025 7:30 AM EST Hospital Encounter [facility] Endoscopy Department [address] [place] [address] Irineo Ruff MD [address] [place] [address] [email or web address] 03/15/2025 7:30 AM EST - 03/15/2025 8:15 AM EST Surgery [facility] Endoscopy Department [address] [place] [address] Irineo Ruff MD [address] [place] [address] [email or web address] COLONOSCOPY Scheduled Procedures Name Priority Associated [...] documented as of this encounter Care Teams Inspector Packer Relationship Specialty Start Date End Date Laura Mock MD, DMD [address] [address] [email or web address] PCP - General Internal Medicine 06/04/21 11/11/23 Pcp, Unknown PCP - General 11/12/23 11/16/23 Laura Mock MD, DMD [address] [address] [email or web address] PCP - General Internal Medicine 11/17/23 12/28/23 Pcp, Unknown PCP - General 02/28/24 03/04/24 [place] [address] [address] PCP - General 03/05/24 05/17/24 Laura Mock MD, DMD [address] [address] [email or web address] du PCP - General Internal Medicine 05/18/24 Artie Meehan MD [address] [place] [address] [place] [address] Internal Medicine 10/26/17 04/23/22 Rina Swenson MD [address] [place] [address] [place] [address] Psychiatry 07/09/17 Laura Mock MD, DMD [address] [address] [email or web address] du Partners Attributed Provider 09/01/21 07/03/23 Laura Mock MD, DMD [address] [address] [email or web address] du Insurance Assigned Provider 05/31/23 03/01/24 Jakob Bob MD [address] [place] [address] [email or web address] Cardiology 08/22/23 Jose Cruz MD [address] [place] [address] Cardiology 08/22/23 Laura Mock MD, DMD [address] [address] [email or web address] Partners Attributed Provider 09/01/21 07/03/23 [place] [facility] [phone]. Consulting Provider 08/22/23 [facility] Connect 12/24/23 03/11/24 Cyril Morales [address] [place] [phone] Nurse Practitioner 02/27/24 documented as of this encounter Additional Source Comments The information contained in this document represents components of the legal health record. It is not the complete legal health record.[facility]
--- OUTSIDE RECORDS SUMMARY | 2025-02-07 20:57 | XMS_ITS | Encounter Summary ---
Author Organization [facility] Address [facility] Impact [address] [address] Phone Care Team Providers Care Non Destructive Testing Technician Name Role Phone Artie Meehan MD [...] Description 03/08/2025 9:30 AM EST Pre-Admission Testing [address] 2nd [place] [address] Irineo Ruff MD [address] [place] [address] [email or web address] 03/15/2025 Procedure Pass [facility] Endoscopy Department [address] [place] [address] 03/15/2025 7:30 AM EST Hospital Encounter [facility] Endoscopy Department [address] [place] [address] Irineo Ruff MD [address] [place] [address] [email or web address] 03/15/2025 7:30 AM EST - 03/15/2025 8:15 AM EST Surgery [facility] Endoscopy Department [address] [place] [address] Irineo Ruff MD [address] [place] [address] [email or web address] [email or web address] Scheduled [...] documented as of this encounter Care Teams Non Destructive Testing Technician Relationship Specialty Start Date End Date Laura Mock MD, DMD [address] [address] [email or web address] PCP - General Internal Medicine 06/04/21 11/11/23 Pcp, Unknown PCP - General 11/12/23 11/16/23 Laura Mock MD, DMD [address] [address] [email or web address] PCP - General Internal Medicine 11/17/23 12/28/23 Pcp, Unknown PCP - General 02/28/24 03/04/24 [place] [address] [address] PCP - General 03/05/24 05/17/24 Laura Mock MD, DMD [address] [address] [email or web address] PCP - General Internal Medicine 05/18/24 Artie Meehan MD [address] [place] [address] Dr Dior [facility] [place] [address] Internal Medicine 10/26/17 04/23/22 Rina Swenson MD [address] [place] [address] [place] [address] Psychiatry 07/09/17 Laura Mock MD, DMD [address] [address] [email or web address] Attributed Provider 09/01/21 07/03/23 Laura Mock MD, DMD [address] [address] [email or web address] du Insurance Assigned Provider 05/31/23 03/01/24 Jakob Bob MD [address] [place] [address] [email or web address] Cardiology 08/22/23 Jose Cruz MD [address] [place] [address] Cardiology 08/22/23 Laura Mock MD, DMD [address] [address] [email or web address] Attributed Provider 09/01/21 07/03/23 [place] [facility] [phone]. Consulting Provider 08/22/23 [facility] Connect 12/24/23 03/11/24 Cyril Morales [address] [place] [address] Nurse Practitioner 02/27/24 documented as of this encounter Additional Source Comments The information contained in this document represents components of the legal health record. It is not the complete legal health record.[facility]
--- OUTSIDE RECORDS SUMMARY | 2025-02-07 20:57 | XMS_ITS | Encounter Summary ---
Author Organization [facility] Address [facility] [employer] [address] [address] Phone Care Team Providers Care [employer] Supervisor Name Role Phone Rina Swenson MD Unavailable Laura Mock MD, DMD Primary Car e Provider Laura Mock MD, DMD Unavailable Laura Mock MD, DMD Unavailable Jakob Bob MD Unavailable [phone] Jose Cruz MD Unavailable Laura Mock MD, [...] Description 03/08/2025 9:30 AM EST Pre-Admission Testing [address] [address] Irineo Ruff MD [address] [place] [address] [email or web address] 03/15/2025 Procedure Pass [facility] Endoscopy Department [address] [place] [address] 03/15/2025 7:30 AM EST Hospital Encounter [facility] Endoscopy Department [address] [place] [address] Irineo Ruff MD [address] [place] [address] [email or web address] 03/15/2025 7:30 AM EST - 03/15/2025 8:15 AM EST Surgery [facility] Endoscopy Department [address] [place] [address] Irineo Ruff MD [address] [place] [address] [email or web address] COLONOSCOPY Scheduled Procedures Name [...] as of this encounter Care Teams [employer] Supervisor Relationship Specialty Start Date End Date Laura Mock MD, DMD [address] [address] [email or web address] PCP - General Internal Medicine 06/04/21 11/11/23 Pcp, Unknown PCP - General 11/12/23 11/16/23 Laura Mock MD, DMD [address] [address] [email or web address] PCP - General Internal Medicine 11/17/23 12/28/23 Pcp, Unknown PCP - General 02/28/24 03/04/24 [place] [address] [address] PCP - General 03/05/24 05/17/24 Laura Mock MD, DMD [address] [address] [email or web address] PCP - General Internal Medicine 05/18/24 Rina Swenson MD Psychiatry 07/09/17 Laura Mock MD, DMD [address] [address] [email or web address] Attributed Provider 09/01/21 07/03/23 Laura Mock MD, DMD [address] [address] [email or web address] du Insurance Assigned Provider 05/31/23 03/01/24 Jakob Bob MD [address] [place] [address] [email or web address] Cardiology 08/22/23 Jose Cruz MD [address] [place] [address] Cardiology 08/22/23 Laura Mock MD, DMD [address] [address] [email or web address] [employer] Attributed Provider 09/01/21 07/03/23 [place] [facility] [phone]. Consulting Provider 08/22/23 [facility] Connect 12/24/23 03/11/24 [address]yril Morales [address] [place] [address] Nurse Practitioner 02/27/24 documented as of this encounter Additional Source Comments The information contained in this document represents components of the legal health record. It is not the complete legal health record.[facility]
--- OUTSIDE RECORDS SUMMARY | 2025-02-07 20:58 | XMS_ITS | Encounter Summary ---
Author Organization [facility] Address [facility] [employer] [address] [address] Phone Care Team Providers Care Table Top Tile Setter Name Role Phone Artie Meehan MD Unavailable Rina Swenson MD Unavailable Laura Mock MD, DMD Primary Car e Provider Laura Mock MD, DMD Unavailable Laura Mock MD, DMD Unavailable Jakob Bob MD Unavailable Jose Cruz MD Unavailable [phone] Laura Mock MD, DMD Unavailable Pcp, Unknown Primary Care Provider UnavailLaura Ascencio MD, DMD Primary Car e Provider Pcp, Unknown Primary Care Provider UnavailNicole Arguello MD Primary Care Provide r Laura Mock MD, DMD Primary Car e Provider Encounter Details Date Type Department Care Team (Late st Contact Info) Description 09/28/2021 Telephone [facility] Psychiatric Specialties at [address] [place] [address] Tamara Walton, YOLIE [address] [facility] [address] [email or web address] Social History Tobacco Use Types Packs/Day Years [...] Description 03/08/2025 9:30 AM EST Pre-Admission Testing [address] 2nd [place] [address] Irineo Ruff MD [address] [place] [address] [email or web address] 03/15/2025 Procedure Pass [facility] Endoscopy Department [address] [place] [address] 03/15/2025 7:30 AM EST Hospital Encounter [facility] Endoscopy Department [address] [place] [address] Irineo Ruff MD [address] [place] [address] [email or web address] 03/15/2025 7:30 AM EST - 03/15/2025 8:15 AM EST Surgery [facility] Endoscopy Department [address] [place] [address] Irineo Ruff MD [address] [place] [address] [email or web address] Scheduled Procedures Name [...] documented as of this encounter Care Teams Table Top Tile Setter Relationship Specialty Start Date End Date Laura Mock MD, DMD [address] [address] [email or web address] PCP - General Internal Medicine 06/04/21 11/11/23 Pcp, Unknown PCP - General 11/12/23 11/16/23 Laura Mock MD, DMD [address] [address] [email or web address] PCP - General Internal Medicine 11/17/23 12/28/23 Pcp, Unknown PCP - General 02/28/24 03/04/24 Nicole Newell MD [address] [place] [address] PCP - General 03/05/24 05/17/24 Laura Mock MD, DMD [address] [address] [email or web address] PCP - General Internal Medicine 05/18/24 Artie Meehan MD [address] [place] [address] Dr Dior [facility] [place] [facility] [place] [address] Internal Medicine 10/26/17 04/23/22 Rina Swenson MD [address] [place] [address] [place] [address] Psychiatry 07/09/17 Laura Mock MD, DMD [address] [address] [email or web address] Attributed Provider 09/01/21 07/03/23 Laura Mock MD, DMD [address] [address] [email or web address] du Insurance Assigned Provider 05/31/23 03/01/24 aJkob Bob MD [address] [place] [address] [place] [address] [email or web address] Cardiology 08/22/23 Jose Cruz MD [address] [place] [address] Cardiology 08/22/23 Laura Mock MD, DMD [address] [address] [email or web address] [employer] Attributed Provider 09/01/21 07/03/23 [place] [facility] [phone]. Consulting Provider 08/22/23 [facility] Connect 12/24/23 03/11/24 Cyril Morales [address] [place] [address] Nurse Practitioner 02/27/24 documented as of this encounter Additional Source Comments The information contained in this document represents components of the legal health record. It is not the complete legal health record.[facility]
--- OUTSIDE RECORDS SUMMARY | 2025-02-07 20:58 | XMS_ITS | Encounter Summary ---
Author Organization [facility] Address [facility] [employer] [facility] [address] [place] [address] Phone Care Team Providers Care Plant Maintenance Supervisor Name Role Phone Artie Meehan MD Unavailable Rina Swenson MD Unavailable Laura Mock MD, DMD Primary Car e Provider Laura Mock MD, DMD Unavailable Laura Mock MD, DMD Unavailable Jakob Bob MD Unavailable [phone] Jose Cruz MD Unavailable [phone] Laura Mock MD, DMD Unavailable Pcp, Unknown Primary Care Provider UnavailLaura Ascencio MD, DMD Primary Car e Provider Pcp, Unknown Primary Care Provider UnavailNicole Arguello MD Primary Care Provide r Laura Mock MD, DMD Primary Car e Provider Encounter Details Date Type Department Care Team (Late st Contact Info) Description 09/13/2021 Anti-coag visit [facility] Anticoagulation Clinic [address] [place] [place] [address] Abbie Prieto, PharmD [address] [address] [email or web address] Social History Tobacco Use Types Packs/Day [...] Description 03/08/2025 9:30 AM EST Pre-Admission Testing [address] 2nd [place] [address] Irineo Ruff MD [address] [place] [address] [email or web address] 03/15/2025 Procedure Pass [facility] Endoscopy Department [address] [place] [place] [address] 03/15/2025 7:30 AM EST Hospital Encounter [facility] Endoscopy Department [address] [place] [place] [address] Irineo Ruff MD [address] [place] [address] [email or web address] 03/15/2025 7:30 AM EST - 03/15/2025 8:15 AM EST Surgery [facility] Endoscopy Department [address] [place] [place] [address] Irineo Ruff MD [address] [place] [address] [place] [address] [email or web address] COLONOSCOPY Scheduled Procedures Name Priority Associated Diagnoses Date/Ti ar COLONOSCOPY Abnormal colonoscopy 03/15/2025 7:30 AM EST [...] as of this encounter Care Teams Plant Maintenance Supervisor Relationship Specialty Start Date End Date Laura Mock MD, DMD [address] [address] [email or web address] PCP - General Internal Medicine 06/04/21 11/11/23 Pcp, Unknown PCP - General 11/12/23 11/16/23 Laura Mock MD, DMD [address] [address] [email or web address] PCP - General Internal Medicine 11/17/23 12/28/23 Pcp, Unknown PCP - General 02/28/24 03/04/24 [place] [address] [address] PCP - General 03/05/24 05/17/24 Laura Mock MD, DMD [address] [address] [email or web address] PCP - General Internal Medicine 05/18/24 Artie Meehan MD [address] [place] [address] [place] [address] Internal Medicine 10/26/17 04/23/22 Rina Swenson MD [address] [place] [address] [place] [address] Psychiatry 07/09/17 Laura Mock MD, DMD [address] [address] [email or web address] Attributed Provider 09/01/21 07/03/23 Laura Mock MD, DMD [address] [address] [email or web address] du Insurance Assigned Provider 05/31/23 03/01/24 Jakob Bob MD [address] [place] [address] [email or web address] Cardiology 08/22/23 Jose Cruz MD [address] [place] [address] Cardiology 08/22/23 Laura Mock MD, DMD [address] [address] [email or web address] Attributed Provider 09/01/21 07/03/23 [place] [facility] [phone]. Consulting Provider 08/22/23 [facility] Connect 12/24/23 03/11/24 Cyril Morales [address] [place] [address] Nurse Practitioner 02/27/24 documented as of this encounter Additional Source Comments The information contained in this document represents components of the legal health record. It is not the complete legal health record.[facility]
--- OUTSIDE RECORDS SUMMARY | 2025-02-07 20:58 | XMS_ITS | Encounter Summary ---
Author Organization [facility] Address [address] [place] [address] Phone Care Team Providers Care Physician Chief Of Pathology Name Role Phone Artie Meehan MD Unavailable Rina Swenson MD Unavailable Laura Mock MD, DMD Primary Car e Provider Laura Mock MD, DMD Unavailable Laura Mock MD, DMD Unavailable Jakob Bob MD Unavailable [phone] Jose Cruz MD Unavailable [phone] Laura Mock MD, DMD Unavailable Pcp, Unknown Primary Care Provider UnavailLaura Ascencio MD, DMD Primary Car e Provider Pcp, Unknown Primary Care Provider UnavailNicole Arguello MD Primary Care Provide r Laura Mock MD, DMD Primary Car e Provider Encounter Details Date Type Department Care Team (Late st Contact Info) Description 09/10/2021 Anti-coag visit [facility] Li, Mengyan, PharmD [address] [place] [address] [email or web address] Social History Tobacco Use Types [...] Encounters Date Type Department Care Team ([facility] st Contact Info) Description 03/08/2025 9:30 AM EST Pre-Admission Testing [address] [address] Irineo Ruff MD [address] [place] [address] [place] [address] [email or web address] 03/15/2025 Procedure Pass [facility] Endoscopy Department [address] [place] [address] 03/15/2025 7:30 AM EST Hospital Encounter [facility] Endoscopy Department [address] [place] [address] Irineo Ruff MD [address] [place] [address] [email or web address] 03/15/2025 7:30 AM EST - 03/15/2025 8:15 AM EST Surgery [facility] Endoscopy Department [address] [place] [address] Irineo Ruff MD [address] [place] [address] [email or web address] [email or web address] Scheduled Procedures Name [...] as of this encounter Care Teams Physician Chief Of Pathology Relationship Specialty Start Date End Date Laura Mock MD, DMD [address] [address] [email or web address] PCP - General Internal Medicine 06/04/21 11/11/23 Pcp, Unknown PCP - General 11/12/23 11/16/23 Laura Mock MD, DMD [address] [address] [email or web address] PCP - General Internal Medicine 11/17/23 12/28/23 Pcp, Unknown PCP - General 02/28/24 03/04/24 [place] [address] [address] PCP - General 03/05/24 05/17/24 Laura Mock MD, DMD [address] [address] [email or web address] du PCP - General Internal Medicine 05/18/24 Artie Meehan MD [address] [place] [address] [place] [address] Internal Medicine 10/26/17 04/23/22 Rina Swenson MD [address] [place] [address] [place] [address] Psychiatry 07/09/17 Laura Mock MD, DMD [address] [address] [email or web address] du Partners Attributed Provider 09/01/21 07/03/23 Laura Mock MD, DMD [address] [address] [email or web address] du Insurance Assigned Provider 05/31/23 03/01/24 Jakob Bob MD [address] [place] [address] [place] [address] [email or web address] Cardiology 08/22/23 Jose Cruz MD [address] [place] [address] Cardiology 08/22/23 Laura Mock MD, DMD [address] [address] [email or web address] du Partners Attributed Provider 09/01/21 07/03/23 [place] [facility] [phone]. Consulting Provider 08/22/23 [facility] Connect 12/24/23 03/11/24 Cyril Morales [address] [place] [address] Nurse Practitioner 02/27/24 documented as of this encounter Additional Source Comments The information contained in this document represents components of the legal health record. It is not the complete legal health record.[facility]
--- OUTSIDE RECORDS SUMMARY | 2025-02-07 20:58 | XMS_ITS | Encounter Summary ---
Author Organization [facility] Address [address] [employer] [place] [address] Phone Care Team Providers Care Spinneret Cleaner Name Role Phone Rina Swenson MD [...] Contact Info) Description 08/26/2023 Procedure Pass [facility] Endoscopy Department [address] [place] [address] Social History Tobacco Use Types Packs/Day [...] Description 03/08/2025 9:30 AM EST Pre-Admission Testing [address] 2[address] [place] [address] Irineo Ruff MD [address] [place] [address] [email or web address] 03/15/2025 Procedure Pass [facility] Endoscopy Department [address] [place] [address] 03/15/2025 7:30 AM EST Hospital Encounter [facility] Endoscopy Department [address] [place] [address] Irineo Ruff MD [address] [place] [address] [email or web address] 03/15/2025 7:30 AM EST - 03/15/2025 8:15 AM EST Surgery [facility] Endoscopy Department [address] [place] [address] Irineo Ruff MD [address] [place] [address] [email or web address] [email or web address] Scheduled Procedures Name [...] documented as of this encounter Care Teams Spinneret Cleaner Relationship Specialty Start Date End Date Laura Mock MD, DMD [address] [address] [email or web address] du PCP - General Internal Medicine 06/04/21 11/11/23 Pcp, Unknown PCP - General 11/12/23 11/16/23 Laura Mock MD, DMD [address] [address] [email or web address] PCP - General Internal Medicine 11/17/23 12/28/23 Pcp, Unknown PCP - General 02/28/24 03/04/24 Nicole Newell MD [address] [place] [address] PCP - General 03/05/24 05/17/24 Laura Mock MD, DMD [address] [address] [email or web address] du PCP - General Internal Medicine 05/18/24 Rina Swenson MD Psychiatry 07/09/17 Laura Mock MD, DMD 1 [facility] [address] [place] [address] [email or web address] Insurance Assigned Provider 05/31/23 03/01/24 Jakob Bob MD [address] [facility] [place] [address] [email or web address] Cardiology 08/22/23 Jose Cruz MD [address] [facility] [place] [address] [email or web address] Cardiology 08/22/23 [facility] [phone]. Consulting Provider 08/22/23 [facility] Connect 12/24/23 03/11/24 [address]il Morales [address] [place] [phone] Nurse Practitioner 02/27/24 documented as of this encounter Additional Source Comments The information contained in this document represents components of the legal health record. It is not the complete legal health record.[facility]
--- OUTSIDE RECORDS SUMMARY | 2025-02-07 20:58 | XMS_ITS | Encounter Summary ---
Author Organization [facility] Address [facility] [address] [place] [address] Phone Care Team Providers Care Parcel Post Officer Name Role Phone Rina Swenson MD Unavailable [phone] Laura Mock MD, DMD Primary Car e Provider Laura Mock MD, DMD Unavailable Laura Mock MD, DMD Unavailable Jakob Bob MD Unavailable [phone] Jose Cruz MD Unavailable Laura Mock MD, DMD Unavailable Pcp, Unknown Primary Care Provider UnavailLaura Ascencio MD, DMD Primary Car e Provider Pcp, Unknown Primary Care Provider UnavailNicole Arguello MD Primary Care Provide r Laura Mock MD, DMD Primary Car e Provider Encounter Details Date Type Department Care Team (Late st Contact Info) Description 12/25/[address] [facility] Department [address] [place] [address] Laura Mock MD, DMD 1 [facility] [address] [place] [address] [email or web address] [...] Description 03/08/2025 9:30 AM EST Pre-Admission Testing [facility] 45 [facility] 2nd [place] [address] Irineo Ruff MD [address] [place] [address] [email or web address] 03/15/2025 Procedure Pass [facility] Endoscopy Department [address] [place] [address] 03/15/2025 7:30 AM EST Hospital Encounter [facility] Endoscopy Department [address] [place] [address] Irineo Ruff MD [address] [place] [address] [place] [address] [email or web address] 03/15/2025 7:30 AM EST - 03/15/2025 8:15 AM EST Surgery [facility] Endoscopy Department [address] [place] [address] Irineo Ruff MD [address] [place] [address] [place] [address] [email or web address] COLONOSCOPY Scheduled Procedures Name Priority Associated [...] documented as of this encounter Care Teams Parcel Post Officer Relationship Specialty Start Date End Date Laura Mock MD, DMD [address] [address] [email or web address] PCP - General Internal Medicine 06/04/21 11/11/23 Pcp, Unknown PCP - General 11/12/23 11/16/23 Laura Mock MD, DMD [address] [address] [email or web address] du PCP - General Internal Medicine 11/17/23 12/28/23 Pcp, Unknown PCP - General 02/28/24 03/04/24 [place] [address] [place] [address] PCP - General 03/05/24 05/17/24 Laura Mock MD, DMD [address] [address] [email or web address] du PCP - General Internal Medicine 05/18/24 Rina Swenson MD Psychiatry 07/09/17 Laura Mock MD, DMD [address] [address] [email or web address] du Partners Attributed Provider 09/01/21 07/03/23 Laura Mock MD, DMD [address] [address] [email or web address] du Insurance Assigned Provider 05/31/23 03/01/24 Jakob Bob MD [address] [place] [address] [place] [address] [email or web address] Cardiology 08/22/23 Jose Cruz MD [address] [place] [address] Cardiology 08/22/23 Laura Mock MD, DMD [address] [address] [email or web address] Partners Attributed Provider 09/01/21 07/03/23 [facility] [phone]. Consulting Provider 08/22/23 [facility] Connect 12/24/23 03/11/24 Cyril Morales [address] [place] [address] Nurse Practitioner 02/27/24 documented as of this encounter Additional Source Comments The information contained in this document represents components of the legal health record. It is not the complete legal health record.[facility]
--- OUTSIDE RECORDS SUMMARY | 2025-02-07 20:58 | XMS_ITS | Encounter Summary ---
Author Organization [facility] Address [facility] [employer] [facility] [address] [place] [address] Phone Care Team Providers Care Paint And Table Edger Name Role Phone Rina Swenson MD Unavailable [...] Info) Description 10/07/2022 Procedure Pass [facility] [place] [place] [id number] Social History Tobacco Use Types Packs/Day Years [...] Description 03/08/2025 9:30 AM EST Pre-Admission Testing [address] [address] Irineo Ruff MD [address] [place] [address] [email or web address] 03/15/2025 Procedure Pass [facility] Endoscopy Department [address] [place] [address] 03/15/2025 7:30 AM EST Hospital Encounter [facility] Endoscopy Department [address] [place] [address] Irineo Ruff MD [address] [place] [address] [email or web address] 03/15/2025 7:30 AM EST - 03/15/2025 8:15 AM EST Surgery [facility] Endoscopy Department [address] [place] [address] Irineo Ruff MD [address] [place] [address] [email or web address] COLONOSCOPY Scheduled Procedures Name Priority [...] documented as of this encounter Care Teams Paint And Table Edger Relationship Specialty Start Date End Date Laura Mock MD, DMD [address] [address] [email or web address] PCP - General Internal Medicine 06/04/21 11/11/23 Pcp, Unknown PCP - General 11/12/23 11/16/23 Laura Mock MD, DMD [address] [address] [email or web address] PCP - General Internal Medicine 11/17/23 12/28/23 Pcp, Unknown PCP - General 02/28/24 03/04/24 Nicole Newell MD [address] [place] [address] PCP - General 03/05/24 05/17/24 Laura Mock MD, DMD [address] [address] [email or web address] du PCP - General Internal Medicine 05/18/24 Rina Swenson MD Psychiatry 07/09/17 Laura Mock MD, DMD [address] [address] [email or web address] Partners Attributed Provider 09/01/21 07/03/23 Laura Mock MD, DMD [address] [address] [email or web address] du Insurance Assigned Provider 05/31/23 03/01/24 Jakob Bob MD [address] [place] [address] [email or web address] Cardiology 08/22/23 Jose Cruz MD [address] [place] [address] [email or web address] Cardiology 08/22/23 Laura Mock MD, DMD [address] [address] [email or web address] Partners Attributed Provider 09/01/21 07/03/23 [facility] [phone]. Consulting Provider 08/22/23 [facility] Connect 12/24/23 03/11/24 Cyril Morales [address] [place] [phone] Nurse Practitioner 02/27/24 documented as of this encounter Additional Source Comments The information contained in this document represents components of the legal health record. It is not the complete legal health record.[facility]
--- OUTSIDE RECORDS SUMMARY | 2025-02-07 20:58 | XMS_ITS | Encounter Summary ---
Author Organization [facility] Address [address] [place] [address] [place] [address] Phone Care Team Providers Care Supervisor Shearing Name Role Phone Rina Swenson MD Unavailable Laura Mock MD, DMD Primary Car e Provider Laura Mock MD, DMD Unavailable Laura Mock MD, DMD Unavailable Jakob Bob MD Unavailable Jose Cruz MD Unavailable [phone] Laura Mock MD, DMD Unavailable Pcp, Unknown Primary Care Provider UnavailLaura Ascencio MD, DMD Primary Car e Provider Pcp, Unknown Primary Care Provider UnavailNicole Arguello MD Primary Care Provide r Laura Mock MD, DMD Primary Car e Provider Encounter Details Date Type Department Care Team (Late st Contact Info) Description 08/08/2022 Anti-coag visit [facility] Anticoagulation Clinic [address] [place] [address] [phone] Kenyatta [email or web address] Social History Tobacco Use Types [...] Description 03/08/2025 9:30 AM EST Pre-Admission Testing [address] 2nd [place] [address] Irineo Ruff MD [address] [place] [address] [email or web address] 03/15/2025 Procedure Pass [facility] Endoscopy Department [address] [place] [address] 03/15/2025 7:30 AM EST Hospital Encounter [facility] Endoscopy Department [address] [place] [address] Irineo Ruff MD [address] [place] [address] [email or web address] 03/15/2025 7:30 AM EST - 03/15/2025 8:15 AM EST Surgery [facility] Endoscopy Department [address] [place] [address] Irineo Ruff MD [address] [place] [address] [place] [address] [email or web address] COLONOSCOPY Scheduled Procedures Name Priority [...] as of this encounter Care Teams Supervisor Shearing Relationship Specialty Start Date End Date Laura Mock MD, DMD [address] [address] [email or web address] PCP - General Internal Medicine 06/04/21 11/11/23 Pcp, Unknown PCP - General 11/12/23 11/16/23 Laura Mock MD, DMD [address] [address] [email or web address] du PCP - General Internal Medicine 11/17/23 12/28/23 Pcp, Unknown PCP - General 02/28/24 03/04/24 Nicole Newell MD [address] [place] [address] PCP - General 03/05/24 05/17/24 Laura Mock MD, DMD [address] [address] [email or web address] du PCP - General Internal Medicine 05/18/24 Rina Swenson MD Psychiatry 07/09/17 Laura Mock MD, DMD [address] [address] [email or web address] Partners Attributed Provider 09/01/21 07/03/23 Laura Mock MD, DMD [address] [address] [email or web address] du Insurance Assigned Provider 05/31/23 03/01/24 Jakob Bob MD [address] [place] [address] [email or web address] Cardiology 08/22/23 Jose Cruz MD [address] [place] [address] Cardiology 08/22/23 Laura Mock MD, DMD [address] [address] [email or web address] Partners Attributed Provider 09/01/21 07/03/23 [facility] [phone]. Consulting Provider 08/22/23 [facility] Connect 12/24/23 03/11/24 Cyril Morales [address] [place] [address] Nurse Practitioner 02/27/24 documented as of this encounter Additional Source Comments The information contained in this document represents components of the legal health record. It is not the complete legal health record.[facility]
--- OUTSIDE RECORDS SUMMARY | 2025-02-07 20:58 | XMS_ITS | Encounter Summary ---
Author Organization [facility] Address [address] [facility] [address] [place] [address] Phone Care Team Providers Care Brim Blocker Name Role Phone Rina Swenson MD Unavailable Laura Mock MD, DMD Primary Car e Provider Laura Mock MD, DMD Unavailable Laura Mock MD, DMD Unavailable Jakob Bob MD Unavailable [phone] Jose Cruz MD Unavailable [phone] Laura Mock MD, DMD Unavailable Pcp, Unknown Primary Care Provider UnavailLaura Ascencio MD, DMD Primary Car e Provider Pcp, Unknown Primary Care Provider UnavailNicole Arguello MD Primary Care Provide r Lauar Mock MD, DMD Primary Car e Provider Encounter Details Date Type Department Care Team (Late st Contact Info) Description 12/10/2022 Anti-coag visit [facility] Cardiovascular Health [address] [place] [address] Catherine Hernández, PharmD [email or web address] Social History [...] Description 03/08/2025 9:30 AM EST Pre-Admission Testing [address] 2nd [place] [address] Irineo Ruff MD [address] [place] [address] [email or web address] 03/15/[address] [facility] Endoscopy Department [address] [place] [address] 03/15/2025 7:30 AM EST Hospital Encounter [facility] Endoscopy Department [address] [place] [address] Irineo Ruff MD [address] [place] [address] [email or web address] 03/15/2025 7:30 AM EST - 03/15/2025 8:[address] [facility] Endoscopy Department [address] [place] [address] Irineo Ruff MD [address] [place] [address] [place] [address] [email or web address] COLONOSCOPY Scheduled Procedures Name Priority Associated Diagnoses [...] as of this encounter Care Teams Brim Blocker Relationship Specialty Start Date End Date Laura Mock MD, DMD [address] [address] [email or web address] PCP - General Internal Medicine 06/04/21 11/11/23 Pcp, Unknown PCP - General 11/12/23 11/16/23 Laura Mock MD, DMD [address] [address] [email or web address] du PCP - General Internal Medicine 11/17/23 12/28/23 Pcp, Unknown PCP - General 02/28/24 03/04/24 Nicole Newell MD [address] [place] [address] PCP - General 03/05/24 05/17/24 Laura Mock MD, DMD [address] [address] [email or web address] du PCP - General Internal Medicine 05/18/24 Rina Swenson MD Psychiatry 07/09/17 Laura Mock MD, DMD [address] [address] [email or web address] Partners Attributed Provider 09/01/21 07/03/23 Laura Mock MD, DMD [address] [address] [email or web address] du Insurance Assigned Provider 05/31/23 03/01/24 Jakob Bob MD [address] [place] [address] [email or web address] Cardiology 08/22/23 Jose Cruz MD [address] [place] [address] Cardiology 08/22/23 Laura Mock MD, DMD [address] [address] [email or web address] Partners Attributed Provider 09/01/21 07/03/23 [facility] [phone]. Consulting Provider 08/22/23 [facility] Connect 12/24/23 03/11/24 Cyril Morales [address] [place] [address] Nurse Practitioner 02/27/24 documented as of this encounter Additional Source Comments The information contained in this document represents components of the legal health record. It is not the complete legal health record.[facility]
--- OUTSIDE RECORDS SUMMARY | 2025-02-07 20:58 | XMS_ITS | Encounter Summary ---
Author Organization [facility] Address [facility] [place] [address] [address] Phone Care Team Providers Care Sewer Line Photo Inspector Name Role Phone Rian Swenson MD Unavailable Laura Mock MD, DMD Primary Car e Provider Laura Mock MD, DMD Unavailable Laura Mock MD, DMD Unavailable Jakob Bob MD Unavailable [phone] Jose Cruz MD Unavailable Laura Mock MD, [...] Description 03/08/2025 9:30 AM EST Pre-Admission Testing [address] [address] Irineo Ruff MD [address] [place] [address] [email or web address] 03/15/2025 Procedure Pass [facility] Endoscopy Department [address] [place] [address] 03/15/2025 7:30 AM EST Hospital Encounter [facility] Endoscopy Department [address] [place] [address] Irineo Ruff MD [address] [place] [address] [email or web address] 03/15/2025 7:30 AM EST - 03/15/2025 8:15 AM EST Surgery [facility] Endoscopy Department [address] [place] [address] Irineo Ruff MD [address] [place] [address] [email or web address] COLONOSCOPY Scheduled Procedures Name Priority Associated [...] documented as of this encounter Care Teams Sewer Line Photo Inspector Relationship Specialty Start Date End Date Laura Mock MD, DMD [address] [address] [email or web address] du PCP - General Internal Medicine 06/04/21 11/11/23 Pcp, Unknown PCP - General 11/12/23 11/16/23 Laura Mock MD, DMD [address] [address] [email or web address] du PCP - General Internal Medicine 11/17/23 12/28/23 Pcp, Unknown PCP - General 02/28/24 03/04/24 [place] [address] [address] PCP - General 03/05/24 05/17/24 Laura Mock MD, DMD [address] [address] [email or web address] du PCP - General Internal Medicine 05/18/24 Rina Swenson MD Psychiatry 07/09/17 Laura Mock MD, DMD [address] [address] [email or web address] Partners Attributed Provider 09/01/21 07/03/23 Laura Mock MD, DMD [address] [address] [email or web address] du Insurance Assigned Provider 05/31/23 03/01/24 Jakob Bob MD [address] [place] [address] [email or web address] Cardiology 08/22/23 Jose Cruz MD [address] [place] [address] Cardiology 08/22/23 Laura Mock MD, DMD [address] [address] [email or web address] du Partners Attributed Provider 09/01/21 07/03/23 [facility] [phone]. Consulting Provider 08/22/23 [facility] Connect 12/24/23 03/11/24 Cyril Morales [address] [place] [phone] Nurse Practitioner 02/27/24 documented as of this encounter Additional Source Comments The information contained in this document represents components of the legal health record. It is not the complete legal health record.[facility]
--- OUTSIDE RECORDS SUMMARY | 2025-02-07 20:58 | XMS_ITS | Encounter Summary ---
Author Organization [facility] Address [address] [employer] [facility] [address] [place] [address] Phone Care Team Providers Care Rehanger Name Role Phone Artie Meehan MD Primary Care Provider [phone] Artie Meehan MD Unavailable [phone] Rina Swenson MD Unavailable Laura Mock MD, DMD Primary Car e Provider Laura Mock MD, DMD Unavailable Laura Mock MD, DMD Unavailable Jakob Bob MD Unavailable [phone] Jose Cruz MD Unavailable Laura Mock MD, DMD Unavailable Pcp, Unknown Primary Care Provider UnavailLaura Ascencio MD, DMD Primary Car e Provider Pcp, Unknown Primary Care Provider UnavailNicole Arguello MD Primary Care Provide r Laura Mock MD, DMD Primary Car e Provider Encounter Details Date Type Department Care Team (Late st Contact Info) Description 09/06/2020 Procedure Pass Echo Lab [facility] [address] [place] [address] Social History Tobacco Use Types Packs/Day Years [...] Description 03/08/2025 9:30 AM EST Pre-Admission Testing [address] 2nd [place] [address] Irineo Ruff MD [address] [place] [address] [email or web address] 03/15/2025 Procedure Pass [facility] Endoscopy Department [address] [place] [address] 03/15/2025 7:30 AM EST Hospital Encounter [facility] Endoscopy Department [address] [place] [address] Irineo Ruff MD [address] [place] [address] [email or web address]@[email or web address] 03/15/2025 7:30 AM EST - 03/15/2025 8:15 AM EST Surgery [facility] Endoscopy Department [address] [place] [address] Irineo Ruff MD [address] [place] [address] [email or web address] COLONOSCOPY Scheduled Procedures Name Priority [...] documented as of this encounter Care Teams Rehanger Relationship Specialty Start Date End Date Artie Meehan MD [address] [place] [address] Dr Dior [facility] [place] [address] PCP - General Internal Medicine 10/26/17 06/03/21 Laura Mock MD, DMD [address] [address] [email or web address] PCP - General Internal Medicine 06/04/21 11/11/23 Pcp, Unknown PCP - General 11/12/23 11/16/23 Laura Mock MD, DMD [address] [address] [email or web address] du PCP - General Internal Medicine 11/17/23 12/28/23 Pcp, Unknown PCP - General 02/28/24 03/04/24 [place]ell [place] [address] [place] [address] PCP - General 03/05/24 05/17/24 Laura Mock MD, DMD [address] [address] [email or web address] du PCP - General Internal Medicine 05/18/24 Artie Meehan MD [address] [place] [address] Dr [place] [address] Internal Medicine 10/26/17 04/23/22 Rina Swenson MD [address] [place] [address] [place] [address] Psychiatry 07/09/17 Laura Mock MD, DMD [address] [address] [email or web address] Partners Attributed Provider 09/01/21 07/03/23 Laura Mock MD, DMD [address] [address] [email or web address] du Insurance Assigned Provider 05/31/23 03/01/24 Jakob Bob MD [address] [place] [address] [email or web address] Cardiology 08/22/23 Jose Cruz MD [address] [place] [address], [address] [address] Cardiology 08/22/23 Laura Mock MD, DMD [address] [address] [email or web address] du Partners Attributed Provider 09/01/21 07/03/23 [facility] [phone]. Consulting Provider 08/22/23 CAROLANN GREWAL Connect 12/24/23 03/11/24 Cyril Morales [address] [place] [address] Nurse Practitioner 02/27/24 documented as of this encounter Additional Source Comments The information contained in this document represents components of the legal health record. It is not the complete legal health record.[facility]
--- OUTSIDE RECORDS SUMMARY | 2025-02-07 20:58 | XMS_ITS | Encounter Summary ---
Author Organization [facility] Address [address] [facility] [address] [place] [address] Phone Care Team Providers Care Dairy Technician Name Role Phone Rina Swenson MD [...] st Contact Info) Description 07/26/2022 Anti-coag visit [facility] Anticoagulation Clinic [address] [place], [place] [phone] Melvin Stewart, [facility] [address] [place] [address] [email or web address] Social History Tobacco Use Types [...] Description 03/08/2025 9:30 AM EST Pre-Admission Testing [facility] [address] [facility] 2nd [place] [address] Irineo Ruff MD [address] [place] [address] [place] [address] [email or web address] 03/15/2025 Procedure Pass [facility] Endoscopy Department [address] [place] [address] 03/15/2025 7:30 AM EST Hospital Encounter [facility] Endoscopy Department [address] [place] [address] Irineo Ruff MD [address] [place] [address] [place] [address] [email or web address] 03/15/2025 7:30 AM EST - 03/15/2025 8:15 AM EST Surgery [facility] Endoscopy Department [address] [place] [address] Irineo Ruff MD [address] [place] [address] [place] [address] [email or web address] COLONOSCOPY Scheduled Procedures Name Priority [...] documented as of this encounter Care Teams Dairy Technician Relationship Specialty Start Date End Date Laura Mock MD, DMD [address] [address] [email or web address] PCP - General Internal Medicine 06/04/21 11/11/23 Pcp, Unknown PCP - General 11/12/23 11/16/23 Laura Mock MD, DMD [address] [address] [email or web address] du PCP - General Internal Medicine 11/17/23 12/28/23 Pcp, Unknown PCP - General 02/28/24 03/04/24 [place] [address] [address] PCP - General 03/05/24 05/17/24 Laura Mock MD, DMD [address] [address] [email or web address] PCP - General Internal Medicine 05/18/24 Rina Swenson MD Psychiatry 07/09/17 Laura Mock MD, DMD [address] [address] [email or web address]. du [employer] Attributed Provider 09/01/21 07/03/23 Laura Mock MD, DMD [address] [address] [email or web address] du Insurance Assigned Provider 05/31/23 03/01/24 Jakob Bob MD [address] [place] [address] [email or web address] Cardiology 08/22/23 Jose Cruz MD [address] [place] [address] Cardiology 08/22/23 Laura Mock MD, DMD [address] [address] [email or web address]. [employer] Attributed Provider 09/01/21 07/03/23 [facility] [phone]. Consulting Provider 08/22/23 [facility] Connect 12/24/23 03/11/24 Cyril Morales [address] [place] [address] Nurse Practitioner 02/27/24 documented as of this encounter Additional Source Comments The information contained in this document represents components of the legal health record. It is not the complete legal health record.[facility]
--- OUTSIDE RECORDS SUMMARY | 2025-02-07 20:58 | XMS_ITS | Encounter Summary ---
Author Organization [facility] Address [facility] [employer] [facility] [address] [place] [address] Phone Care Team Providers Care Hot Roll Inspector Name Role Phone Artie Meehan MD Unavailable Rina Swenson MD Unavailable [phone] Laura Mock MD, DMD Primary Car e Provider Laura Mock MD, DMD Unavailable Laura Mock MD, DMD Unavailable Jakob Bob MD Unavailable [phone] Jose Cruz MD Unavailable Laura Mock MD, DMD Unavailable Pcp, Unknown Primary Care Provider UnavailLaura Ascencio MD, DMD Primary Car e Provider Pcp, Unknown Primary Care Provider UnavailNicole Arguello MD Primary Care Provide r Laura Mock MD, DMD Primary Car e Provider Encounter Details Date Type Department Care Team (Late st Contact Info) Description 09/07/2021 Anti-coag visit [facility] Anticoagulation Clinic [address] [place] [address] Kenyatta Gamez, PharmD [email or web address] Social History Tobacco Use Types [...] Description 03/08/2025 9:30 AM EST Pre-Admission Testing [address] [address] Irineo Ruff MD [address] [place] [address] [email or web address] 03/15/2025 Procedure Pass [facility] Endoscopy Department [address] [place] [address] 03/15/2025 7:30 AM EST Hospital Encounter [facility] Endoscopy Department [address] [place] [address] Irineo Ruff MD [address] [place] [address] [email or web address] 03/15/2025 7:30 AM EST - 03/15/2025 8:15 AM EST Surgery [facility] Endoscopy Department [address] [place] [address] Irineo Ruff MD [address] [place] [address] [email or web address] COLONOSCOPY Scheduled Procedures Name Priority Associated [...] as of this encounter Care Teams Hot Roll Inspector Relationship Specialty Start Date End Date Laura Mock MD, DMD [address] [address] [email or web address] PCP - General Internal Medicine 06/04/21 11/11/23 Pcp, Unknown PCP - General 11/12/23 11/16/23 Laura Mock MD, DMD [address] [address] [email or web address] PCP - General Internal Medicine 11/17/23 12/28/23 Pcp, Unknown PCP - General 02/28/24 03/04/24 Nicole New[place] MD [address] [place] [address] PCP - General 03/05/24 05/17/24 Laura Mock MD, DMD [address] [address] [email or web address] du PCP - General Internal Medicine 05/18/24 Artie Meehan MD [address] [place] [address] Dr Dior [facility] [place] [address] Internal Medicine 10/26/17 04/23/22 Rina Swenson MD [address] [place] [address] [place] [address] Psychiatry 07/09/17 Laura Mock MD, DMD [address] [address] [email or web address] Attributed Provider 09/01/21 07/03/23 Laura Mock MD, DMD [address] [address] [email or web address] Insurance Assigned Provider 05/31/23 03/01/24 Jakob Bob MD [address] [place] [address] [email or web address] Cardiology 08/22/23 Jose Cruz MD [address] [place] [address] Cardiology 08/22/23 Laura Mock MD, DMD [address] [address] [email or web address] Attributed Provider 09/01/21 07/03/23 [facility] [phone]. Consulting Provider 08/22/23 [facility] Connect 12/24/23 03/11/24 Cyril Morales [address] [place] [address] Nurse Practitioner 02/27/24 documented as of this encounter Additional Source Comments The information contained in this document represents components of the legal health record. It is not the complete legal health record.[facility]
--- OUTSIDE RECORDS SUMMARY | 2025-02-07 20:58 | XMS_ITS | Encounter Summary ---
Author Organization [facility] Address [address] [facility] [place] [address] [place] [address] Phone Care Team Providers Care Insemination Worker Name Role Phone Artie Meehan MD Unavailable Rina Swenson MD Unavailable [phone] Laura Mock MD, DMD Primary Car e Provider Laura Mock MD, DMD Unavailable Laura Mock MD, DMD Unavailable Jakob Bob MD Unavailable [phone] Jose Cruz MD Unavailable Laura Mock MD, DMD Unavailable Pcp, Unknown Primary Care Provider UnavailLaura Ascencio MD, DMD Primary Car e Provider Pcp, Unknown Primary Care Provider UnavailNicole Arguello MD Primary Care Provide r Laura Mock MD, DMD Primary Car e Provider Encounter Details Date Type Department Care Team (Late st Contact Info) Description 09/17/2021 Anti-coag visit [facility] Cardiovascular [address] [address] Catherine Hernández, UniqueD [email or web address] Social History Tobacco Use Types Packs/Day [...] Description 03/08/2025 9:30 AM EST Pre-Admission Testing [address] [address] Irineo Ruff MD [address] [place] [address] [email or web address]@[email or web address] 03/15/2025 Procedure Pass [facility] Endoscopy Department [address] [place] [address] 03/15/2025 7:30 AM EST Hospital Encounter [facility] Endoscopy Department [address] [place] [address] Irineo Ruff MD [address] [place] [address] [email or web address]@[email or web address] 03/15/2025 7:30 AM EST - 03/15/2025 8:15 AM EST Surgery [facility] Endoscopy Department [address] [place] [address] Irineo Ruff MD [address] [place] [address] [email or web address] COLONOSCOPY Scheduled Procedures Name [...] documented as of this encounter Care Teams Insemination Worker Relationship Specialty Start Date End Date Laura Mock MD, DMD [address] [address] [email or web address] du PCP - General Internal Medicine 06/04/21 11/11/23 Pcp, Unknown PCP - General 11/12/23 11/16/23 Laura Mock MD, DMD [address] [address] [email or web address] du PCP - General Internal Medicine 11/17/23 12/28/23 Pcp, Unknown PCP - General 02/28/24 03/04/24 [place] [address] [place] [address] PCP - General 03/05/24 05/17/24 Laura Mock MD, DMD [address] [address] [email or web address] du PCP - General Internal Medicine 05/18/24 Artie Meehan MD [address] [place] [address] [facility] [address] Internal Medicine 10/26/17 04/23/22 Rina Swenson MD [address] [place] [address] [place] [address] Psychiatry 07/09/17 Laura Mock MD, DMD [address] [address] [email or web address]. du [employer] Attributed Provider 09/01/21 07/03/23 Laura Mock MD, DMD [address] [address] [email or web address] du Insurance Assigned Provider 05/31/23 03/01/24 Jakob Bob MD [address] [place] [address] [place] [address] [email or web address] Cardiology 08/22/23 Jose Cruz MD [address] [place] [address] Cardiology 08/22/23 Laura Mock MD, DMD [address] [address] [email or web address]. [employer] Attributed Provider 09/01/21 07/03/23 [place] [facility] [phone]. Consulting Provider 08/22/23 [facility] Connect 12/24/23 03/11/24 Cyril Morales [address] [place] [address] Nurse Practitioner 02/27/24 documented as of this encounter Additional Source Comments The information contained in this document represents components of the legal health record. It is not the complete legal health record.[facility]
--- OUTSIDE RECORDS SUMMARY | 2025-02-07 20:58 | XMS_ITS | Encounter Summary ---
Author Organization [facility] Address [address] [place] [address] [place] [address] Phone Care Team Providers Care Baggage Screener Name Role Phone Rina Swenson MD Unavailable [...] st Contact Info) Description 07/18/2022 Anti-coag visit [facility] Anticoagulation Clinic [address] [place] [phone] Kenyatta [email or web address] Social History Tobacco Use Types Packs/Day [...] Description 03/08/2025 9:30 AM EST Pre-Admission Testing [address] 2nd [place] [address] Irineo Ruff MD [address] [place] [address] [email or web address]@[facility] 03/15/2025 Procedure Pass [facility] Endoscopy Department [address] [place] [address] 03/15/2025 7:30 AM EST Hospital Encounter [facility] Endoscopy Department [address] [place] [address] Irineo Ruff MD [address] [place] [address] [email or web address]@[facility] 03/15/2025 7:30 AM EST - 03/15/2025 8:15 AM EST Surgery [facility] Endoscopy Department [address] [place] [address] Irineo Ruff MD [address] [place] [address] [place] [address] [email or web address] COLONOSCOPY [...] documented as of this encounter Care Teams Baggage Screener Relationship Specialty Start Date End Date Laura Mock MD, DMD [address] [address] [email or web address] du PCP - General Internal Medicine 06/04/21 11/11/23 Pcp, Unknown PCP - General 11/12/23 11/16/23 Laura Mock MD, DMD [address] [address] [email or web address] du PCP - General Internal Medicine 11/17/23 12/28/23 Pcp, Unknown PCP - General 02/28/24 03/04/24 Nicole Newell MD [address] [place] [address] PCP - General 03/05/24 05/17/24 Laura Mock MD, DMD [address] [address] [email or web address] du PCP - General Internal Medicine 05/18/24 Rina Swenson MD Psychiatry 07/09/17 Laura Mock MD, DMD [address] [address] [email or web address]. [employer] Attributed Provider 09/01/21 07/03/23 Laura Mock MD, DMD [address] [address] [email or web address] du Insurance Assigned Provider 05/31/23 03/01/24 Jaokb Bob MD [address] [place] [address] [email or web address] Cardiology 08/22/23 Jose Cruz MD [address] [place] [address] Cardiology 08/22/23 Laura Mock MD, DMD [address] [address] [email or web address]. [employer] Attributed Provider 09/01/21 07/03/23 [facility] [phone]. Consulting Provider 08/22/23 [facility] Connect 12/24/23 03/11/24 Cyril Morales [address] [place] [address] Nurse Practitioner 02/27/24 documented as of this encounter Additional Source Comments The information contained in this document represents components of the legal health record. It is not the complete legal health record.[facility]
--- OUTSIDE RECORDS SUMMARY | 2025-02-07 20:59 | XMS_ITS | Encounter Summary ---
Author Organization [facility] Address [address] [place] [address] [place] [address] Phone Care Team Providers Care Contracts Director Name Role Phone Rina Swesnon MD Unavailable [phone] Laura Mock MD, DMD Primary Car e [...] st Contact Info) Description 10/29/2022 Anti-coag visit [facility] Cardiovascular Health [address] [place] [address] Catherine Hernández, PharmD [email or web address] Social History Tobacco Use Types Packs/Day [...] Description 03/08/2025 9:30 AM EST Pre-Admission Testing [address] 2nd [place] [address] Irineo Ruff MD [address] [place] [address] [email or web address]@[facility] 03/15/2025 Procedure Pass [facility] Endoscopy Department [address] [place] [address] 03/15/2025 7:30 AM EST Hospital Encounter [facility] Endoscopy Department [address] [place] [address] Irineo Ruff MD [address] [place] [address] WALI@[facility] 03/15/2025 7:30 AM EST - 03/15/2025 8:15 AM EST Surgery [facility] Endoscopy Department [address] [place] [address] Irineo Ruff MD [address] [place] [address] [place] [address] [email or web address] COLONOSCOPY Scheduled Procedures Name Priority Associated [...] documented as of this encounter Care Teams Contracts Director Relationship Specialty Start Date End Date Laura Mock MD, DMD [address] [address] [email or web address] du PCP - General Internal Medicine 06/04/21 11/11/23 Pcp, Unknown PCP - General 11/12/23 11/16/23 Laura Mock MD, DMD [address] [address] [email or web address] du PCP - General Internal Medicine 11/17/23 12/28/23 Pcp, Unknown PCP - General 02/28/24 03/04/24 Nicole Newell MD [address] [place] [address] PCP - General 03/05/24 05/17/24 Laura Mock MD, DMD [address] [address] [email or web address] du PCP - General Internal Medicine 05/18/24 Rina Swenson MD Psychiatry 07/09/17 Laura Mock MD, DMD [address] [address] [email or web address]. [employer] Attributed Provider 09/01/21 07/03/23 Laura Mock MD, DMD [address] [address] [email or web address] du Insurance Assigned Provider 05/31/23 03/01/24 Jakob Bob MD [address] [place] [address] [email or web address] Cardiology 08/22/23 Jose Cruz MD [address] [place] [address] Cardiology 08/22/23 Laura Mock MD, DMD [address] [address] [email or web address]. [employer] Attributed Provider 09/01/21 07/03/23 [facility] [phone]. Consulting Provider 08/22/23 [facility] Connect 12/24/23 03/11/24 Cyril Morales [address] [place] [address] Nurse Practitioner 02/27/24 documented as of this encounter Additional Source Comments The information contained in this document represents components of the legal health record. It is not the complete legal health record.[facility]
--- OUTSIDE RECORDS SUMMARY | 2025-02-07 20:59 | XMS_ITS | Encounter Summary ---
Author Organization [facility] Address [address] [place] [address] [place] [address] Phone Care Team Providers Care Clinic Office Assistant Name Role Phone Artie Meehan MD Unavailable Rina Swenson MD Unavailable Laura Mock MD, DMD Primary Car e Provider Laura Mock MD, DMD Unavailable Laura Mock MD, DMD Unavailable Jakob Bob MD Unavailable Jose Cruz MD Unavailable [phone] Laura Mock MD, DMD Unavailable Pcp, Unknown Primary Care Provider UnavailLaura Ascencio MD, DMD Primary Car e Provider Pcp, Unknown Primary Care Provider UnavailNicole Arguello MD Primary Care Provide r Laura Mock MD, DMD Primary Car e Provider Encounter Details Date Type Department Care Team (Late st Contact Info) Description 09/17/2021 Procedure Pass [facility] [address] [place] [address] Social History Tobacco Use Types Packs/Day Years [...] Description 03/08/2025 9:30 AM EST Pre-Admission Testing [address] [address] Irineo Ruff MD [address] [place] [address] [email or web address]@[email or web address] 03/15/2025 Procedure Pass [facility] Endoscopy Department [address] [place] [address] 03/15/2025 7:30 AM EST Hospital Encounter [facility] Endoscopy Department [address] [place] [address] Irineo Ruff MD [address] [place] [address] [email or web address]@[email or web address] 03/15/2025 7:30 AM EST - 03/15/2025 8:15 AM EST Surgery [facility] Endoscopy Department [address] [place] [address] Irineo Ruff MD [address] [place] [address] [place] [address] [email or web address] COLONOSCOPY Scheduled Procedures Name Priority [...] documented as of this encounter Care Teams Clinic Office Assistant Relationship Specialty Start Date End Date Laura Mock MD, DMD [address] [address] [email or web address] du PCP - General Internal Medicine 06/04/21 11/11/23 Pcp, Unknown PCP - General 11/12/23 11/16/23 Laura Mock MD, DMD [address] [address] [email or web address] du PCP - General Internal Medicine 11/17/23 12/28/23 Pcp, Unknown PCP - General 02/28/24 03/04/24 [place] [address] [address] PCP - General 03/05/24 05/17/24 Laura Mock MD, DMD [address] [address] [email or web address] du PCP - General Internal Medicine 05/18/24 Artie Meehan MD [address] [place] [address] Dr Dior [facility] [place] [address] Internal Medicine 10/26/17 04/23/22 Rina Swenson MD [address] [place] [address] [place] [address] Psychiatry 07/09/17 Laura Mock MD, DMD [address] [address] [email or web address] [employer] Attributed Provider 09/01/21 07/03/23 Laura Mock MD, DMD [address] [address] [email or web address] du Insurance Assigned Provider 05/31/23 03/01/24 Jakob Bob MD [address] [place] [address] [email or web address] Cardiology 08/22/23 Jose Cruz MD [address] [place] [address] Cardiology 08/22/23 Laura Mock MD, DMD [address] [address] [email or web address]. [employer] Attributed Provider 09/01/21 07/03/23 [facility] [phone]. Consulting Provider 08/22/23 [facility] Connect 12/24/23 03/11/24 Cyril Morales [address] [place] [phone] Nurse Practitioner 02/27/24 documented as of this encounter Additional Source Comments The information contained in this document represents components of the legal health record. It is not the complete legal health record.[facility]
--- OUTSIDE RECORDS SUMMARY | 2025-02-07 20:59 | XMS_ITS | Encounter Summary ---
Author Organization [facility] Address [address] [facility] [address] [place] [address] Phone Care Team Providers Care Dye Colorist Dyer Name Role Phone Rina Swenson MD Unavailable Laura Mock MD, DMD Primary Car e Provider Laura Mock MD, DMD Unavailable Laura Mock MD, DMD Unavailable Jakob Bob MD Unavailable [phone] Jose Cruz MD Unavailable Laura Mock MD, DMD Unavailable Pcp, Unknown Primary Care Provider UnavailLaura Ascencio MD, DMD Primary Car e Provider Pcp, Unknown Primary Care Provider UnavailNicole Arguello MD Primary Care Provide r Laura Mock MD, DMD Primary Car e Provider Encounter Details Date Type Department Care Team (Late st Contact Info) Description 10/26/2022 Anti-coag visit [facility] Anticoagulation Clinic [address] [place], [place] [phone] Melvin Stewart, [facility] [address] [place] [address] [email or web address] Social History Tobacco Use Types [...] Description 03/08/2025 9:30 AM EST Pre-Admission Testing [facility] [address] [facility] 2nd [place] [address] Irineo Ruff MD [address] [place] [address] [place] [address] [email or web address] 03/15/2025 Procedure Pass [facility] Endoscopy Department [address] [place] [address] 03/15/2025 7:30 AM EST Hospital Encounter [facility] Endoscopy Department [address] [place] [address] Irineo Ruff MD [address] [place] [address] [place] [address] [email or web address] 03/15/2025 7:30 AM EST - 03/15/2025 8:15 AM EST Surgery [facility] Endoscopy Department [address] [place] [address] Irineo Ruff MD [address] [place] [address] [place] [address] [email or web address] [email or web address] Scheduled Procedures Name Priority Associated [...] documented as of this encounter Care Teams Dye Colorist Dyer Relationship Specialty Start Date End Date Laura Mock MD, DMD [address] [address] [email or web address] PCP - General Internal Medicine 06/04/21 11/11/23 Pcp, Unknown PCP - General 11/12/23 11/16/23 Laura Mock MD, DMD [address] [address] [email or web address] PCP - General Internal Medicine 11/17/23 12/28/23 Pcp, Unknown PCP - General 02/28/24 03/04/24 [place] [address] [place] [id number] PCP - General 03/05/24 05/17/24 Laura Mock MD, DMD 1 [facility] [address] [place] [address] [email or web address] du PCP - General Internal Medicine 05/18/24 Rina Swenson MD Psychiatry 07/09/17 Laura Mock MD, DMD [address] [address] [email or web address] Partners Attributed Provider 09/01/21 07/03/23 Laura Mock MD, DMD [address] [address] [email or web address] du Insurance Assigned Provider 05/31/23 03/01/24 Jakob Bob MD [address] [place] [address] [email or web address] Cardiology 08/22/23 Jose Cruz MD [address] [place] [address] Cardiology 08/22/23 Laura Mock MD, DMD [address] [address] [email or web address] Partners Attributed Provider 09/01/21 07/03/23 [place] [facility] [phone]. Consulting Provider 08/22/23 [facility] Connect 12/24/23 03/11/24 Cyril Morales [facility] [place] [address] Nurse Practitioner 02/27/24 documented as of this encounter Additional Source Comments The information contained in this document represents components of the legal health record. It is not the complete legal health record.[facility]
--- OUTSIDE RECORDS SUMMARY | 2025-02-07 20:59 | XMS_ITS | Encounter Summary ---
Author Organization [facility] Address [facility] [employer] [address] [address] Phone Care Team Providers Care Asbestos Cement Sheet Supervisor Name Role Phone Rina Swenson MD [...] Description 03/08/2025 9:30 AM EST Pre-Admission Testing [address] 2nd [place] [address] Irineo Ruff MD [address] [place] [address] [email or web address] 03/15/2025 Procedure Pass [facility] Endoscopy Department [address] [place] [address] 03/15/2025 7:30 AM EST Hospital Encounter [facility] Endoscopy Department [address] [place] [address] Irineo Ruff MD [address] [place] [address] [email or web address] 03/15/2025 7:30 AM EST - 03/15/2025 8:15 AM EST Surgery [facility] Endoscopy Department [address] [place] [address] Irineo Ruff MD [address] [place] [address] [email or web address] [email or web address] Scheduled Procedures Name Priority [...] documented as of this encounter Care Teams Asbestos Cement Sheet Supervisor Relationship Specialty Start Date End Date Laura Mock MD, DMD [address] [address] [email or web address] PCP - General Internal Medicine 06/04/21 11/11/23 Pcp, Unknown PCP - General 11/12/23 11/16/23 Laura Mock MD, DMD [address] [address] [email or web address] du PCP - General Internal Medicine 11/17/23 12/28/23 Pcp, Unknown PCP - General 02/28/24 03/04/24 Nicole Newell MD [address] [place] [address] PCP - General 03/05/24 05/17/24 Laura Mock MD, DMD [address] [address] [email or web address] PCP - General Internal Medicine 05/18/24 Rina Swenson MD Psychiatry 07/09/17 Laura Mock MD, DMD [address] [address] [email or web address] Attributed Provider 09/01/21 07/03/23 aLura Mock MD, DMD 1 [facility] [address] [place] [address] [email or web address] Insurance Assigned Provider 05/31/23 03/01/24 Jakob Bob MD [address] [place] [address] [address] [place] [address] [email or web address] beds at [facility] Cardiology 08/22/23 Jose Cruz MD [address] [place] [address] 301 [place] [address] Cardiology 08/22/23 Laura Mock MD, DMD [address] [address] [email or web address] Partners Attributed Provider 09/01/21 07/03/23 [place] [facility] [phone]. Consulting Provider 08/22/23 [facility] Connect 12/24/23 03/11/24 Cyril Morales [address] [place] [address] Nurse Practitioner 02/27/24 documented as of this encounter Additional Source Comments The information contained in this document represents components of the legal health record. It is not the complete legal health record.[facility]
--- OUTSIDE RECORDS SUMMARY | 2025-02-07 20:59 | XMS_ITS | Encounter Summary ---
Author Organization [facility] Address [facility] [employer] [address] [address] Phone Care Team Providers Care Trim Setter Name Role Phone Rina Swenson MD Unavailable [...] Description 03/08/2025 9:30 AM EST Pre-Admission Testing [address] [address] Irineo Ruff MD [address] [place] [address] [email or web address] 03/15/2025 Procedure Pass [facility] Endoscopy Department [address] [place] [address] 03/15/2025 7:30 AM EST Hospital Encounter [facility] Endoscopy Department [address] [place] [address] Irineo Ruff MD [address] [place] [address] [email or web address] 03/15/2025 7:30 AM EST - 03/15/2025 8:15 AM EST Surgery [facility] Endoscopy Department [address] [place] [address] Irineo Ruff MD [address] [place] [address] [email or web address] COLONOSCOPY Scheduled Procedures Name Priority [...] documented as of this encounter Care Teams Trim Setter Relationship Specialty Start Date End Date Laura Mock MD, DMD [address] [address] [email or web address] PCP - General Internal Medicine 06/04/21 11/11/23 Pcp, Unknown PCP - General 11/12/23 11/16/23 Laura Mock MD, DMD [address] [address] [email or web address] du PCP - General Internal Medicine 11/17/23 12/28/23 Pcp, Unknown PCP - General 02/28/24 03/04/24 [place] [address] [address] PCP - General 03/05/24 05/17/24 Laura Mock MD, DMD [address] [address] [email or web address] du PCP - General Internal Medicine 05/18/24 Rina Swenson MD Psychiatry 07/09/17 Laura Mock MD, DMD [address] [address] [email or web address] Partners Attributed Provider 09/01/21 07/03/23 Laura Mock MD, DMD [address] [address] [email or web address] du Insurance Assigned Provider 05/31/23 03/01/24 Jakob Bob MD [address] [place] [address] [email or web address] Cardiology 08/22/23 Jose Cruz MD [address] [place] [address] Cardiology 08/22/23 Laura Mock MD, DMD [address] [address] [email or web address] Partners Attributed Provider 09/01/21 07/03/23 [place] [facility] [phone]. Consulting Provider 08/22/23 [facility] Connect 12/24/23 03/11/24 Cyril Morales [address] [place] [address] Nurse Practitioner 02/27/24 documented as of this encounter Additional Source Comments The information contained in this document represents components of the legal health record. It is not the complete legal health record.[facility]
--- OUTSIDE RECORDS SUMMARY | 2025-02-07 20:59 | XMS_ITS | Patient Health Record ---
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
--- OUTSIDE RECORDS SUMMARY | 2025-02-07 20:59 | XMS_ITS | Encounter Summary ---
Author Organization [facility] Address [address] [facility] [address] [place] [address] Phone Care Team Providers Care Panel Coverer Name Role Phone Rina Swenson MD Unavailable [...] st Contact Info) Description 05/10/2022 Anti-coag visit [facility] Anticoagulation Clinic [address] [place], [place] [phone] Melvin Stewart, [facility] [address] [place] [address] [email or web address] Social History Tobacco Use Types Packs/Day [...] Upcoming Encounters Date Type Department Care Team ([facility] st Contact Info) Description 03/08/2025 9:30 AM EST Pre-Admission Testing [address] [address] Irineo Ruff MD [address] [place] [address] [email or web address] 03/15/2025 Procedure Pass [facility] Endoscopy Department [address] [place] [address] 03/15/2025 7:30 AM EST Hospital Encounter [facility] Endoscopy Department [address] [place] [address] Irineo Ruff MD [address] [place] [address] [email or web address] 03/15/2025 7:30 AM EST - 03/15/2025 8:15 AM EST Surgery [facility] Endoscopy Department [address] [place] [address] Irineo Ruff MD [address] [place] [address] [email or web address] COLONOSCOPY Scheduled Procedures [...] documented as of this encounter Care Teams Panel Coverer Relationship Specialty Start Date End Date Laura Mock MD, DMD [address] [address] [email or web address] PCP - General Internal Medicine 06/04/21 11/11/23 Pcp, Unknown PCP - General 11/12/23 11/16/23 Laura Mock MD, DMD [address] [address] [email or web address] PCP - General Internal Medicine 11/17/23 12/28/23 Pcp, Unknown PCP - General 02/28/24 03/04/24 Nicole New[place] [address] [place] [address] PCP - General 03/05/24 05/17/24 Laura Mock MD, DMD [address] [address] [email or web address] du PCP - General Internal Medicine 05/18/24 Rina Swenson MD Psychiatry 07/09/17 Laura Mock MD, DMD [address] [address] [email or web address] Partners Attributed Provider 09/01/21 07/03/23 Laura Mock MD, DMD [address] [address] [email or web address] Insurance Assigned Provider 05/31/23 03/01/24 Jakob Bob MD [address] [place] [address] [place] [address] [email or web address] Cardiology 08/22/23 Jose Cruz MD [address] [place] [address] [email or web address] Cardiology 08/22/23 Laura Mock MD, DMD [address] [address] [email or web address] Partners Attributed Provider 09/01/21 07/03/23 [place] [facility] [phone]. Consulting Provider 08/22/23 [facility] Connect 12/24/23 03/11/24 Cyril Morales [address] [place] [address] Nurse Practitioner 02/27/24 documented as of this encounter Additional Source Comments The information contained in this document represents components of the legal health record. It is not the complete legal health record.[facility]
--- OUTSIDE RECORDS SUMMARY | 2025-02-07 20:59 | XMS_ITS | Encounter Summary ---
Author Organization [facility] Address [facility] [address] [address] Phone Care Team Providers Care Doula Name Role Phone Rina Swenson MD Unavailable Laura Mock MD, DMD Primary Car e Provider Laura Mock MD, DMD Unavailable Laura Mock MD, DMD Unavailable Jakob Bob MD Unavailable [phone] Jose Cruz MD Unavailable [phone] Luara Mock MD, DMD Unavailable Pcp, Unknown Primary [...] 03/08/2025 9:30 AM EST Pre-Admission Testing [address] [address] Irineo Ruff MD [address] [place] [address] [email or web address] 03/15/2025 Procedure Pass [facility] Endoscopy Department [address] [place] [address] 03/15/2025 7:30 AM EST Hospital Encounter [facility] Endoscopy Department [address] [place] [address] Irineo Ruff MD [address] [place] [address] [email or web address] 03/15/2025 7:30 AM EST - 03/15/2025 8:15 AM EST Surgery [facility] Endoscopy Department [address] [place] [address] Irineo Ruff MD [address] [place] [address] [email or web address] COLONOSCOPY Scheduled Procedures Name Priority Associated [...] documented as of this encounter Care Teams Doula Relationship Specialty Start Date End Date Laura Mock MD, DMD [address] [address] [email or web address] PCP - General Internal Medicine 06/04/21 11/11/23 Pcp, Unknown PCP - General 11/12/23 11/16/23 Laura Mock MD, DMD [address] [address] [email or web address] du PCP - General Internal Medicine 11/17/23 12/28/23 Pcp, Unknown PCP - General 02/28/24 03/04/24 [place] [address] [address] PCP - General 03/05/24 05/17/24 Laura Mock MD, DMD [address] [address] [email or web address] du PCP - General Internal Medicine 05/18/24 Rina Swenson MD Psychiatry 07/09/17 Laura Mock MD, DMD [address] [address] [email or web address] Partners Attributed Provider 09/01/21 07/03/23 Laura Mock MD, DMD [address] [address] [email or web address] du Insurance Assigned Provider 05/31/23 03/01/24 Jakob Bob MD [address] [place] [address] [email or web address] Cardiology 08/22/23 Jose Cruz MD [address] [place] [address] Cardiology 08/22/23 Laura Mock MD, DMD [address] [address] [email or web address] Partners Attributed Provider 09/01/21 07/03/23 [place] [facility] [phone]. Consulting Provider 08/22/23 [facility] Connect 12/24/23 03/11/24 Cyril Morales [address] [place] [address] Nurse Practitioner 02/27/24 documented as of this encounter Additional Source Comments The information contained in this document represents components of the legal health record. It is not the complete legal health record.[facility]
--- OUTSIDE RECORDS SUMMARY | 2025-02-07 20:59 | XMS_ITS | Encounter Summary ---
Author Organization [facility] Address [address] [employer] [facility] [address] [place] [address] Phone Care Team Providers Care Can Operator Name Role Phone Artie Meehan MD Primary Care Provider [phone] Artie Meehan MD Unavailable Rina Swenson MD Unavailable [phone] Laura Mock MD, DMD Primary Car e Provider Laura Mock MD, DMD Unavailable Laura Mock MD, DMD Unavailable Jakob Bob MD Unavailable [phone] Jose Crzu MD Unavailable Laura Mock MD, DMD Unavailable Pcp, Unknown Primary Care Provider UnavailLaura Ascencio MD, DMD Primary Car e Provider Pcp, Unknown Primary Care Provider UnavailNicole Arguello MD Primary Care Provide r Laura Mock MD, DMD Primary Car e Provider Encounter Details Date Type Department Care Team (Late st Contact Info) Description 05/03/2021 Procedure Pass [facility] [address] [place] [address] Social History Tobacco Use Types Packs/Day Years [...] Encounters Date Type Department Care Team ([facility] st Contact Info) Description 03/08/2025 9:30 AM EST Pre-Admission Testing [facility] [address] [facility] 2nd [place] [address] Irineo Ruff MD [address] [place] [address] [email or web address] 03/15/2025 Procedure Pass [facility] Endoscopy Department [address] [place] [address] 03/15/2025 7:30 AM EST Hospital Encounter [facility] Endoscopy Department [address] [place] [address] Irineo Ruff MD [address] [place] [address] [email or web address] 03/15/2025 7:30 AM EST - 03/15/2025 8:15 AM EST Surgery [facility] Endoscopy Department [address] [place] [address] Irineo Ruff MD [address] [place] [address] [email or web address] COLONOSCOPY Scheduled Procedures [...] documented as of this encounter Care Teams Can Operator Relationship Specialty Start Date End Date Artie Meehan MD [address] [place] [address] Dr [address] [place] [address] PCP - General Internal Medicine 10/26/17 06/03/21 Laura Mock MD, DMD [address] [address] [email or web address] PCP - General Internal Medicine 06/04/21 11/11/23 Pcp, Unknown PCP - General 11/12/23 11/16/23 Laura Mock MD, DMD [address] [address] [email or web address] du PCP - General Internal Medicine 11/17/23 12/28/23 Pcp, Unknown PCP - General 02/28/24 03/04/24 [place] [address] [address] PCP - General 03/05/24 05/17/24 Laura Mock MD, DMD [address] [address] [email or web address] du PCP - General Internal Medicine 05/18/24 Artie Meehan MD [address] [place] [address] Dr Nichols [place] [address] Internal Medicine 10/26/17 04/23/22 Rina Swenson MD [address] [place] [address] [place] [address] Psychiatry 07/09/17 Laura Mock MD, DMD 1 [facility] [address] [place] [address] [email or web address] Partners Attributed Provider 09/01/21 07/03/23 Laura Mock MD, DMD [address] [address] [email or web address] Insurance Assigned Provider 05/31/23 03/01/24 Jakob Bob MD [address] [place] [address] [place] [address] [email or web address] Cardiology 08/22/23 Jose Cruz MD [address] [place] [address], [facility] [address] [place] [address] Cardiology 08/22/23 Laura Mock MD, DMD 1 [facility] [address] [place] [address] [email or web address] Partners Attributed Provider 09/01/21 07/03/23 [facility] [phone]. Consulting Provider 08/22/23 [facility] Connect 12/24/23 03/11/24 Cyril Morales [address] [place] [phone] Nurse Practitioner 02/27/24 documented as of this encounter Additional Source Comments The information contained in this document represents components of the legal health record. It is not the complete legal health record.[facility]
--- OUTSIDE RECORDS SUMMARY | 2025-02-07 20:59 | XMS_ITS | Encounter Summary ---
Author Organization [facility] Address [facility] [employer] [address] [address] Phone Care Team Providers Care Shake Table Operator Name Role Phone Artie Meehan MD Unavailable Rina Swenson MD Unavailable Laura Mock MD, DMD Primary Car e Provider Laura Mock MD, DMD Unavailable Laura Mock MD, DMD Unavailable Jakob Bob MD Unavailable [phone] Jose Cruz MD Unavailable Laura Mock MD, [...] 03/08/2025 9:30 AM EST Pre-Admission Testing [address] 2nd [place] [address] Irineo Ruff MD [address] [place] [address] [email or web address] 03/15/2025 Procedure Pass [facility] Endoscopy Department [address] [place] [address] 03/15/2025 7:30 AM EST Hospital Encounter [facility] Endoscopy Department [address] [place] [address] Irineo Ruff MD [address] [place] [address] [email or web address] 03/15/2025 7:30 AM EST - 03/15/2025 8:15 AM EST Surgery [facility] Endoscopy Department [address] [place] [address] Irineo Ruff MD [address] [place] [address] [email or web address] Scheduled Procedures Name Priority Associated [...] documented as of this encounter Care Teams Shake Table Operator Relationship Specialty Start Date End Date Laura Mock MD, DMD [address] [address] [email or web address] du PCP - General Internal Medicine 06/04/21 11/11/23 Pcp, Unknown PCP - General 11/12/23 11/16/23 Laura Mock MD, DMD [address] [address] [email or web address] PCP - General Internal Medicine 11/17/23 12/28/23 Pcp, Unknown PCP - General 02/28/24 03/04/24 [place] [address] [address] PCP - General 03/05/24 05/17/24 Laura Mcok MD, DMD [address] [address] [email or web address] du PCP - General Internal Medicine 05/18/24 Artie Meehan MD [address] [place] [address] [place] [address] Internal Medicine 10/26/17 04/23/22 Rina Swenson MD [address] [place] [address] [place] [address] Psychiatry 07/09/17 Laura Mock MD, DMD 1 [facility] [address] [place] [address] [email or web address] Partners Attributed Provider 09/01/21 07/03/23 Laura Mock MD, DMD [address] [address] [email or web address] du Insurance Assigned Provider 05/31/23 03/01/24 Jakob Bob MD [address] [place] [address] [email or web address] Cardiology 08/22/23 Jose Cruz MD [address] [place] [address] Cardiology 08/22/23 Laura Mock MD, DMD [address] [address] [email or web address] du Partners Attributed Provider 09/01/21 07/03/23 [facility] [phone]. Consulting Provider 08/22/23 [facility] Connect 12/24/23 03/11/24 Cyril Morales [address] [place] [phone] Nurse Practitioner 02/27/24 documented as of this encounter Additional Source Comments The information contained in this document represents components of the legal health record. It is not the complete legal health record.[facility]
--- OUTSIDE RECORDS SUMMARY | 2025-02-07 20:59 | XMS_ITS | Encounter Summary ---
Author Organization [facility] Address [address] [place] [address] [place] [address] Phone Care Team Providers Care Carpenter Assistant Installer Name Role Phone Rina Swenson MD Unavailable Laura Mock MD, DMD Primary Car e Provider Laura Mock MD, DMD Unavailable Laura Mock MD, DMD Unavailable Jakob Bob MD Unavailable Jose Cruz MD Unavailable [phone] Laura Mock MD, DMD Unavailable Pcp, Unknown Primary Care Provider UnavailaLura Ascencio MD, DMD Primary Car e Provider Pcp, Unknown Primary Care Provider UnavailNicole Arguello MD Primary Care Provide r Laura Mock MD, DMD Primary Car e Provider Encounter Details Date Type Department Care Team (Late st Contact Info) Description 04/25/2022 [facility] [address] [place] [address] [phone] Kenyatta [email or web address] Social History Tobacco Use Types Packs/Day [...] 03/08/2025 9:30 AM EST Pre-Admission Testing [address] [address] Irineo Ruff MD [address] [place] [address] [email or web address] 03/15/2025 Procedure Pass [facility] Endoscopy Department [address] [place] [address] 03/15/2025 7:30 AM EST Hospital Encounter [facility] Endoscopy [facility] [address] [place] [address] Irineo Ruff MD [address] [place] [address] [email or web address] 03/15/2025 7:30 AM EST - 03/15/2025 8:15 AM EST Surgery [facility] Endoscopy Department [address] [place] [address] Irineo Ruff MD [address] [place] [address] [place] [address] [email or web address] Scheduled [...] as of this encounter Care Teams Carpenter Assistant Installer Relationship Specialty Start Date End Date Laura Mock MD, DMD 1 [facility] [address] [place] [address] [email or web address] du PCP - General Internal Medicine 06/04/21 11/11/23 Pcp, Unknown PCP - General 11/12/23 11/16/23 Laura Mock MD, DMD [address] [address] [email or web address] du PCP - General Internal Medicine 11/17/23 12/28/23 Pcp, Unknown PCP - General 02/28/24 03/04/24 Nicole Newell MD [address] [place] [address] PCP - General 03/05/24 05/17/24 Laura Mock MD, DMD 1 [facility] [address] [place] [address] [email or web address] du PCP - General Internal Medicine 05/18/24 Rina Swenson MD Psychiatry 07/09/17 Laura Mock MD, DMD [address] [address] [email or web address] Partners Attributed Provider 09/01/21 07/03/23 Laura Mock MD, DMD [address] [address] [email or web address]. du Insurance Assigned Provider 05/31/23 03/01/24 Jakob Bob MD [address] [place] [address] [email or web address] Cardiology 08/22/23 Jose Cruz MD [address] [place] [address] [address] [place] [address] [email or web address] Cardiology 08/22/23 Laura Mock MD, DMD [address] [address] [email or web address] [employer] Attributed Provider 09/01/21 07/03/23 [facility] [phone]. Consulting Provider 08/22/23 [facility] Connect 12/24/23 03/11/24 Cyril Morales [address] [place] [phone] Nurse Practitioner 02/27/24 documented as of this encounter Additional Source Comments The information contained in this document represents components of the legal health record. It is not the complete legal health record.[facility]
--- OUTSIDE RECORDS SUMMARY | 2025-02-07 20:59 | XMS_ITS | Encounter Summary ---
Author Organization [facility] Address [facility] [employer] [facility] [address] [place] [address] Phone Care Team Providers Care Senior C Software Engineer Name Role Phone Artie Meehan MD Unavailable Rina Swenson MD Unavailable Laura Mock MD, DMD Primary Car e Provider Laura Mock MD, DMD Unavailable Laura Mock MD, DMD Unavailable Jakob Bob MD Unavailable [phone] Jose Cruz MD Unavailable [phone] Laura Mock MD, DMD Unavailable Pcp, Unknown Primary Care Provider UnavailLaura Ascencio MD, DMD Primary Car e Provider Pcp, Unknown Primary Care Provider UnavailNicole Arguello MD Primary Care Provide r Laura Mock MD, DMD Primary Car e Provider Encounter Details Date Type Department Care Team (Late st Contact Info) Description 08/07/2021 Anti-coag visit [facility] Anticoagulation Clinic [address] [place] [address] Kenyatta Gamez, PharmD [email or web address] Social History Tobacco Use Types Packs/Day [...] 03/08/2025 9:30 AM EST Pre-Admission Testing [address] [address] Irineo Ruff MD [address] [place] [address] [email or web address] 03/15/2025 Procedure Pass [facility] Endoscopy Department [address] [place] [address] 03/15/2025 7:30 AM EST Hospital Encounter [facility] Endoscopy Department [address] [place] [address] Irineo Ruff MD [address] [place] [address] [email or web address] 03/15/2025 7:30 AM EST - 03/15/2025 8:15 AM EST Surgery [facility] Endoscopy Department [address] [place] [address] Irineo Ruff MD [address] [place] [address] [email or web address] Scheduled Procedures Name Priority Associated [...] as of this encounter Care Teams Senior C Software Engineer Relationship Specialty Start Date End Date Laura Mock MD, DMD [address] [address] [email or web address] PCP - General Internal Medicine 06/04/21 11/11/23 Pcp, Unknown PCP - General 11/12/23 11/16/23 Laura Mock MD, DMD [address] [address] [email or web address] PCP - General Internal Medicine 11/17/23 12/28/23 Pcp, Unknown PCP - General 02/28/24 03/04/24 Nicole Newell MD [address] [place] [address] PCP - General 03/05/24 05/17/24 Laura Mock MD, DMD [address] [address] [email or web address] du PCP - General Internal Medicine 05/18/24 Artie Meehan MD [address] [place] [address] [address] [facility] [place] [address] Internal Medicine 10/26/17 04/23/22 Rina Swenson MD [address] [place] [address] [place] [address] Psychiatry 07/09/17 Laura Mock MD, DMD [address] [address] [email or web address] du Partners Attributed Provider 09/01/21 07/03/23 Laura Mock MD, DMD [address] [address] [email or web address] du Insurance Assigned Provider 05/31/23 03/01/24 Jakob Bob MD [address] [place] [address] [email or web address] Cardiology 08/22/23 Jose Cruz MD [address] [place] [address] Cardiology 08/22/23 Laura Mock MD, DMD [address] [address] [email or web address] du Partners Attributed Provider 09/01/21 07/03/23 [facility] [phone]. Consulting Provider 08/22/23 [facility] Connect 12/24/23 03/11/24 Cyril Morales [address] [place] [address] Nurse Practitioner 02/27/24 documented as of this encounter Additional Source Comments The information contained in this document represents components of the legal health record. It is not the complete legal health record.[facility]
--- OUTSIDE RECORDS SUMMARY | 2025-02-07 20:59 | XMS_ITS | Encounter Summary ---
Author Organization [facility] Address [facility] [employer] [address] [address] Phone Care Team Providers Care City Dispatcher Name Role Phone Rina Swenson MD Unavailable [phone] Laura Mock MD, DMD Primary Car e Provider Laura Mock MD, DMD Unavailable Laura Mock MD, DMD Unavailable Jakob Bob MD Unavailable Jose Cruz MD Unavailable [phone] Laura Mock MD, DMD Unavailable Pcp, Unknown [...] Description 03/08/2025 9:30 AM EST Pre-Admission Testing [address] [place] [address] Irineo Ruff MD [address] [place] [address] [email or web address] 03/15/2025 Procedure Pass [facility] Endoscopy Department [address] [place] [address] 03/15/2025 7:30 AM EST Hospital Encounter [facility] Endoscopy Department [address] [place] [address] Irineo Ruff MD [address] [place] [address] [email or web address] 03/15/2025 7:30 AM EST - 03/15/2025 8:15 AM EST Surgery [facility] Endoscopy Department [address] [place] [address] Irineo Ruff MD [address] [place] [address] [email or web address] COLONOSCOPY Scheduled Procedures [...] documented as of this encounter Care Teams City Dispatcher Relationship Specialty Start Date End Date Laura Mock MD, DMD [address] [address] [email or web address] du PCP - General Internal Medicine 06/04/21 11/11/23 Pcp, Unknown PCP - General 11/12/23 11/16/23 Laura Mock MD, DMD [address] [address] [email or web address] du PCP - General Internal Medicine 11/17/23 12/28/23 Pcp, Unknown PCP - General 02/28/24 03/04/24 Nicole Newell MD [address] [place] [address] PCP - General 03/05/24 05/17/24 Laura Mock MD, DMD [address] [address] [email or web address] du PCP - General Internal Medicine 05/18/24 Rina Swenson MD Psychiatry 07/09/17 Laura Mock MD, DMD [address] [address] [email or web address] Partners Attributed Provider 09/01/21 07/03/23 Laura Mock MD, DMD 1 [facility] [address] [place] [address] [email or web address] Insurance Assigned Provider 05/31/23 03/01/24 Jakob Bob MD [address] [place] [address] [address] [place] [address] [email or web address] Cardiology 08/22/23 Jose Cruz MD [address] [place] [address] 301 [place] [address] Cardiology 08/22/23 Laura Mock MD, DMD [address] [address] [email or web address] du Partners Attributed Provider 09/01/21 07/03/23 [facility] [facility] [phone]. Consulting Provider 08/22/23 [facility] Connect 12/24/23 03/11/24 Cyril Morales [address] [place] [address] Nurse Practitioner 02/27/24 documented as of this encounter Additional Source Comments The information contained in this document represents components of the legal health record. It is not the complete legal health record.[facility]
--- OUTSIDE RECORDS SUMMARY | 2025-02-07 20:59 | XMS_ITS | Encounter Summary ---
Author Organization [facility] Address [employer] [facility] [address] [place] [address] Phone Care Team Providers Care Director Money Name Role Phone Rina Swenson MD Unavailable [...] st Contact Info) Description 12/04/2023 Procedure Pass [facility] Periop [address] [place] [address] Social History Tobacco Use Types Packs/Day Years [...] Description 03/08/2025 9:30 AM EST Pre-Admission Testing [address] [address] Irineo Ruff MD [address] [place] [address] [email or web address] 03/15/2025 Procedure Pass [facility] Endoscopy Department [address] [place] [address] 03/15/2025 7:30 AM EST Hospital Encounter [facility] Endoscopy Department [address] [place] [address] Irineo Ruff MD [address] [place] [address] [email or web address] 03/15/2025 7:30 AM EST - 03/15/2025 8:15 AM EST Surgery [facility] Endoscopy Department [address] [place] [address] Irineo Ruff MD [address] [place] [address], [place] [address] [email or web address] COLONOSCOPY Scheduled [...] as of this encounter Care Teams Director Money Relationship Specialty Start Date End Date Laura Mock MD, DMD [address] [address] [email or web address] PCP - General Internal Medicine 11/17/23 12/28/23 Pcp, Unknown PCP - General 02/28/24 03/04/24 Nicole Newell [place] [address] [place] [address] PCP - General 03/05/24 05/17/24 Laura Mock MD, DMD [address] [address] [email or web address] PCP - General Internal Medicine 05/18/24 Rina Swenson MD Psychiatry 07/09/17 Laura Mock MD, DMD [address] [address] [email or web address] du Insurance Assigned Provider 05/31/23 03/01/24 Jakob Bob MD [address] [facility] [place] [address] [email or web address] Cardiology 08/22/23 Jose Cruz MD [address] [place] [address], [address] [place] [address] [email or web address] Cardiology 08/22/23 [facility] [phone]. Consulting Provider 08/22/23 [facility] Connect 12/24/23 03/11/24 Cyril Morales [address] [place] [phone] Nurse Practitioner 02/27/24 documented as of this encounter Additional Source Comments The information contained in this document represents components of the legal health record. It is not the complete legal health record.[facility]
--- OUTSIDE RECORDS SUMMARY | 2025-02-07 21:01 | XMS_ITS | Encounter Summary ---
Author Organization [facility] Address [address] [facility] [address] [place] [address] Phone Care Team Providers Care Tool Room Machinist Name Role Phone Artie Meehan MD Primary Care Provider [phone] Artie Meehan MD Unavailable Rina Swenson MD Unavailable Laura Mock MD, DMD Primary Car e Provider Laura Mock MD, DMD Unavailable Laura Mock MD, DMD Unavailable Jakob Bob MD Unavailable Jose Cruz MD Unavailable [phone] Laura Mock MD, DMD Unavailable Pcp, Unknown Primary Care Provider UnavailLaura Ascencio MD, DMD Primary Car e Provider Pcp, Unknown Primary Care Provider UnavailNicole Arguello MD Primary Care Provide r Laura Mock MD, DMD Primary Car e Provider Encounter Details Date Type Department Care Team (Late st Contact Info) Description 11/29/2017 Transcribe Orders [facility] Main [address] [place] [address] Artie Meehan MD [address] [place] [address] [place] [address] Hypertension, essential (Primary Dx) Social History Tobacco [...] Description 03/08/2025 9:30 AM EST Pre-Admission Testing [address] 2nd [place] [address] Irineo Ruff MD [address] [place] [address] [email or web address] 03/15/2025 Procedure Pass [facility] Endoscopy Department [address] [place] [address] 03/15/2025 7:30 AM EST Hospital Encounter [facility] Endoscopy Department [address] [place] [address] Irineo Ruff MD [address] [place] [address] [email or web address] 03/15/2025 7:30 AM EST - 03/15/2025 8:15 AM EST Surgery [facility] Endoscopy Department [address] [place] [address] Irineo Ruff MD [address] [place] [address] [place] [address] [email or web address] COLONOSCOPY Scheduled Procedures Name Priority Associated Diagnoses Date/Ti wy COLONOSCOPY Abnormal colonoscopy 03/15/2025 7:30 AM EST documented as of this encounter Results * (ABNORMAL) Urinalysis (11/29/2017 10:52 AM EDT) COLOR Yellow Yellow [facility] CLARITY Clear [facility] GLUCOSE Negative Negative [facility] BILI Negative Negative [facility] KETONES Negative Negative [facility] SPECIFIC GRAVITY 1.015 1.005 - 1.030 [facility] BLOOD Trace(A) Negative [facility] PH 6.0 5.0 - 8.0 [facility] Protein-UA Negative Negative [facility] NITRITE Negative Negative [facility] Leukocyte esterase, ur Negative Negative [facility] Urine (Urine) 11/29/2017 10: 52 AM EDT 11/29/2017 10:57 AM EDT Artie Meehan MD LAB URINE ORDERABLES Neela milian Result [facility] [address] [place], [place] [id number] * (ABNORMAL) CBC and differential (11/29/2017 10:52 AM EDT) WBC 3.98 3.40 - 11.20 K/uL [facility] RBC 5.32(H) 3.80 - 4.80 M/uL [facility] HGB 15.7(H) 12.0 - 15.0 g/dL [facility] HCT 48.4(H) 36.0 - 46.0 % [facility] PLT 223 130 - 400 K/uL [facility] MCV 91.0 79.0 - 98.0 fL [facility] MCH 29.5 27.0 - 34.8 pg [facility] MCHC 32.4 31.5 - 36.0 g/dL [facility] RDW 13.4 10.8 - 14.6 % [facility] MPV 9.1(L) 9.4 - 12.4 fl [facility] NRBC 0.00 /100 WBCs [facility] ABSOLUTE NRBC 0.00 K/uL [facility] DIFF METHOD Auto [facility] NEUTS 58.8 45.30 - 77.70 % [facility] LYMPHS 26.6 12.30 - 39.70 % [facility] MONOS 10.8 4.10 - 12.80 % [facility] EOS 2.5 0 - 7.2 % [facility] BASOS 1.0 0 - 2.80 % [facility] Granulocytes, immature (%) 0.3 0.0 - 0.9 % [facility] ABSOLUTE NEUTS 2.34 1.40 - 7.70 K/uL [facility] ABSOLUTE LYMPHS 1.06 0.60 - 3.20 K/uL [facility] ABSOLUTE MONOS 0.43 0.11 - 0.59 K/uL [facility] ABSOLUTE EOS 0.10 0.01 - 0.50 K/uL [facility] ABSOLUTE BASOS 0.04 0.00 - 0.08 K/uL [facility] Granulocytes, immature 0.01 0.00 - 0.05 K/uL [facility] Blood 11/29/2017 10:5 2 AM EDT 11/29/2017 10:57 AM EDT us Artie Meehan MD LAB BLOOD BKR ORDERABLES Final Result [facility] [address] [place], [place] [address] * (ABNORMAL) Lipid panel (11/29/2017 10:52 AM EDT) HDL 82 mg/dL [facility] Comment: Interpretation: Risk Level Females Decreased >55mg/dL Average 50-55 mg/dL Increased <50 mg/dL CHOLESTEROL 253(H) 0 - 240 mg/dL [facility] TRIGLYCERIDES 83 30 - 160 mg/dL [facility] LDL 154(H) 50 - 129 mg/dL [facility] Comment: LDL levels in terms of risk for coronary heart disease: <100 mg/dL: Optimal 100-129 mg/dL: Near or above optimal 130-159 mg/dL: Borderline high 160-189 mg/dL: High >190 mg/dL: Very High CARDIAC RISK RATIO 3.1(L) 3.3 - 4.4 [facility] Blood 11/29/2017 10:5 2 AM EDT 11/29/2017 10:57 AM EDT Artie Meehan MD LAB BLOOD BKR ORDERABLES Final Result [address] [address] * Comprehensive metabolic panel (11/29/2017 10:52 AM EDT) SODIUM 145 133 - 146 mmol/L [facility] POTASSIUM 4.7 3.3 - 5.1 mmol/L [facility] CHLORIDE 104 96 - 108 mmol/L [facility] CO2 27 21 - 35 mmol/L [facility] BUN 17 6 - 19 mg/dL [facility] CREATININE 0.80 0.5 - 1.5 mg/dL [facility] GLUCOSE 86 70 - 99 mg/dL [facility] ALBUMIN 4.1 3.9 - 4.8 g/dL [facility] TOTAL PROTEIN 6.9 6.5 - 8.0 g/dL [facility] CALCIUM 9.2 8.4 - 10.3 mg/dL [facility] ALKALINE PHOSPHATASE 73 39 - 117 U/L [facility] TOTAL BILIRUBIN 0.5 0.0 - 1.2 mg/dL [facility] AST 19 0 - 37 U/L [facility] ALT 12 0 - 40 U/L [facility] GLOBULIN 2.8 1 - 4.8 g/dL [facility] EGFR 70 >59 mL/min/1.7 3m2 [facility] Comment:If patient is black, multiply result by 1.159. Estimated glomerular filtration rate calculated using the CKD-EPI equation. ANION GAP 19 10 - 20 mmol/L [facility] Blood 11/29/2017 10:5 2 AM EDT 11/29/2017 10:57 AM EDT Artie Meehan MD LAB BLOOD BKR ORDERABLES Final Result [facility] [address] [place] [address] documented in this encounter Visit Diagnoses Diagnosis Hypertension, essential- Primary Unspecified essential hypertension Abnormal colonoscopy documented in this encounter Additional Health Concerns Infection Onset Date Last Indicated Resolved Time CoV-Presumed 03/23/2022 03/23/2022 04/13/2022 1:23 AM EST CoV-Risk 11/12/2023 11/12/2023 11/12/2023 5:12 PM EDT COVID-19 11/12/2023 11/12/2023 12/03/2023 1:21 AM EDT documented as of this encounter Care Teams Tool Room Machinist Relationship Specialty Start Date End Date Artie Meehan MD [address] [place] [address] PCP - General Internal Medicine 10/26/17 06/03/21 Laura Mock MD, DMD [address] [address] [email or web address] du PCP - General Internal Medicine 06/04/21 11/11/23 Pcp, Unknown PCP - General 11/12/23 11/16/23 Laura Mock MD, DMD [address] [address] [email or web address] PCP - General Internal Medicine 11/17/23 12/28/23 Pcp, Unknown PCP - General 02/28/24 03/04/24 [place] [address] [address] PCP - General 03/05/24 05/17/24 Laura Mock MD, DMD [address] [address] [email or web address] du PCP - General Internal Medicine 05/18/24 Artie Meehan MD [address] [place] [address] [place] [address] Internal Medicine 10/26/17 04/23/22 Rina Swenson MD [address] [place] [address] [place] [address] Psychiatry 07/09/17 Laura Mock MD, DMD [address] [address] [email or web address] [employer] Attributed Provider 09/01/21 07/03/23 Laura Mock MD, DMD [address] [address] [email or web address] du Insurance Assigned Provider 05/31/23 03/01/24 Jakob Bob MD [address] [place] [address] [place] [address] [email or web address] Cardiology 08/22/23 Jose Cruz MD [address] [place] [address], [address] [place] [address] Cardiology 08/22/23 Laura Mock MD, DMD [address] [address] [email or web address] [employer] Attributed Provider 09/01/21 07/03/23 [facility] [phone]. Consulting Provider 08/22/23 [facility] Connect 12/24/23 03/11/24 Cyril Morales [facility] [place] [address] Nurse Practitioner 02/27/24 documented as of this encounter Additional Source Comments The information contained in this document represents components of the legal health record. It is not the complete legal health record.[facility]
--- OUTSIDE RECORDS SUMMARY | 2025-02-07 21:01 | XMS_ITS | Encounter Summary ---
Author Organization [facility] Address [address] [facility] [address] [place] [address] Phone Care Team Providers Care Donor Relations Associate Name Role Phone Rina Swenson MD Unavailable Laura Mock MD, DMD Primary Car e Provider Laura Mock MD, DMD Unavailable Laura Mock MD, DMD Unavailable Jakob Bob MD Unavailable [phone] Jose Cruz MD Unavailable Laura Mock MD, DMD Unavailable Pcp, Unknown Primary Care Provider UnavailLaura Ascencio MD, DMD Primary Car e Provider Pcp, Unknown Primary Care Provider UnavailNicole Arguello MD Primary Care Provide r Laura Mock MD, DMD Primary Car e Provider Encounter Details Date Type Department Care Team (Late st Contact Info) Description 05/27/2023 Procedure Pass [facility] Endoscopy Department [address] [place] [address] Social History Tobacco Use Types Packs/Day Years [...] Description 03/08/2025 9:30 AM EST Pre-Admission Testing [address] [address] Irineo Ruff MD [address] [place] [address] [email or web address] 03/15/2025 Procedure Pass [facility] Endoscopy Department [address] [place] [address] 03/15/2025 7:30 AM EST Hospital Encounter [facility] Endoscopy Department [address] [place] [address] Irineo Ruff MD [address] [place] [address] [email or web address] 03/15/2025 7:30 AM EST - 03/15/2025 8:15 AM EST Surgery [facility] Endoscopy Department [address] [place] [address] Irineo Ruff MD [address] [place] [address] [email or web address] COLONOSCOPY Scheduled Procedures Name Priority Associated [...] documented as of this encounter Care Teams Donor Relations Associate Relationship Specialty Start Date End Date Laura Mock MD, DMD [address] [address] [email or web address] PCP - General Internal Medicine 06/04/21 11/11/23 Pcp, Unknown PCP - General 11/12/23 11/16/23 Laura Mock MD, DMD [address] [address] [email or web address] PCP - General Internal Medicine 11/17/23 12/28/23 Pcp, Unknown PCP - General 02/28/24 03/04/24 Nicole Newell MD [address] [place] [address] PCP - General 03/05/24 05/17/24 Laura Mock MD, DMD [address] [address] [email or web address] du PCP - General Internal Medicine 05/18/24 Rina Swenson MD Psychiatry 07/09/17 Laura Mock MD, DMD [address] [address] [email or web address] Partners Attributed Provider 09/01/21 07/03/23 Laura Mock MD, DMD [address] [address] [email or web address] du Insurance Assigned Provider 05/31/23 03/01/24 Jakob Bob MD [address] [place] [address] [email or web address] Cardiology 08/22/23 Jose Cruz MD [address] [place] [address] [email or web address] Cardiology 08/22/23 Laura Mock MD, DMD [address] [address] [email or web address] du Partners Attributed Provider 09/01/21 07/03/23 [facility] [phone]. Consulting Provider 08/22/23 [facility] Connect 12/24/23 03/11/24 Cyril Morales [address] [place] [phone] Nurse Practitioner 02/27/24 documented as of this encounter Additional Source Comments The information contained in this document represents components of the legal health record. It is not the complete legal health record.[facility]
--- OUTSIDE RECORDS SUMMARY | 2025-02-07 21:01 | XMS_ITS | Encounter Summary ---
Author Organization [facility] Address [address] [employer] [facility] [address] [place] [address] Phone Care Team Providers Care Cartoon Animator Name Role Phone Artie Meehan MD Primary Care Provider [phone] Artie Meehan MD Unavailable Rina Swenson MD Unavailable Laura Mock MD, DMD Primary Car e Provider Laura Mock MD, DMD Unavailable Laura Mock MD, DMD Unavailable Jakob Bob MD Unavailable [phone] Jose Cruz MD Unavailable [phone] Laura Mock MD, DMD Unavailable Pcp, Unknown Primary Care Provider UnavailLaura Ascencio MD, DMD Primary Car e Provider Pcp, Unknown Primary Care Provider UnavailNicole Arguello MD Primary Care Provide r Laura Mock MD, DMD Primary Car e Provider Encounter Details Date Type Department Care Team (Late st Contact Info) Description 12/11/2018 Ancillary Orders Virtual Department [address] [place] [address] Artie Meehan MD [address] [place] [address] [place] [address] Breast screening Social History Tobacco Use Types [...] Encounters Date Type Department Care Team ([facility] st Contact Info) Description 03/08/2025 9:30 AM EST Pre-Admission Testing [address] [address] Irineo Ruff MD [address] [place] [address] [email or web address] 03/15/2025 Procedure Pass [facility] Endoscopy Department [address] [place] [address] 03/15/2025 7:30 AM EST Hospital Encounter [facility] Endoscopy Department [address] [place] [address] Irineo Ruff MD [address] [place] [address] [email or web address] 03/15/2025 7:30 AM EST - 03/15/2025 8:15 AM EST Surgery [facility] Endoscopy Department [address] [place] [address] Irineo Ruff MD [address] [place] [address] [place] [address] [email or web address] Scheduled Procedures Name Priority Associated Diagnoses Date/Ti wa COLONOSCOPY Abnormal colonoscopy 03/15/2025 7:30 AM EST [...] lowers the sensitivity of mammography. POS - [id number] Narrative 01/05/2019 1:52 PM EST Full-field digital [...] whichlowers the sensitivity of mammography. POS - [id number] Artie Meehan MD IMG MG EXAMS Final [...] documented as of this encounter Care Teams Cartoon Animator Relationship Specialty Start Date End Date Artie Meehan MD [address] [place] [address] Dr Dior [address] [place] [address] PCP - General Internal Medicine 10/26/17 06/03/21 Laura Mock MD, DMD [address] [address] [email or web address] PCP - General Internal Medicine 06/04/21 11/11/23 Pcp, Unknown PCP - General 11/12/23 11/16/23 Laura Mock MD, DMD [address] [address] [email or web address] PCP - General Internal Medicine 11/17/23 12/28/23 Pcp, Unknown PCP - General 02/28/24 03/04/24 [place] [address] [address] PCP - General 03/05/24 05/17/24 Laura Mock MD, DMD [address] [address] [email or web address] du PCP - General Internal Medicine 05/18/24 Artie Meehan MD [address] [place] [address] Dr [address] [place] [address] Internal Medicine 10/26/17 04/23/22 Rina Swenson MD [address] [place] [address] Dr Dior [address] [place] [address] Psychiatry 07/09/17 Laura Mock MD, DMD [address] [address] [email or web address] [employer] Attributed Provider 09/01/21 07/03/23 Laura Mokc MD, DMD [address] [address] [email or web address] du Insurance Assigned Provider 05/31/23 03/01/24 Jakob Bob MD [address] [place] [address] [place] [address] [email or web address] Cardiology 08/22/23 Jose Cruz MD [address] [place] [address] Cardiology 08/22/23 Laura Mock MD, DMD 1 [facility] [address] [place] [address] [email or web address] [employer] Attributed Provider 09/01/21 07/03/23 [facility] [phone]. Consulting Provider 08/22/23 [facility] Connect 12/24/23 03/11/24 Cyril Morales [address] [place] [address] Nurse Practitioner 02/27/24 documented as of this encounter Additional Source Comments The information contained in this document represents components of the legal health record. It is not the complete legal health record.[facility]
--- OUTSIDE RECORDS SUMMARY | 2025-02-07 21:01 | XMS_ITS | Encounter Summary ---
Author Organization [facility] Address [address] [address] Phone Care Team Providers Care Sde Name Role Phone Rina Swenson MD Unavailable Laura Mock MD, DMD Primary Car e Provider Laura Mock MD, DMD Unavailable Laura Mock MD, DMD Unavailable Jakob Bob MD Unavailable Jose Cruz MD Unavailable [phone] Laura Mock MD, DMD Unavailable Pcp, Unknown Primary Care Provider UnavailLaura Ascencio MD, DMD Primary Car e Provider Pcp, Unknown Primary Care Provider UnavailNicole Arguello MD Primary Care Provide r Laura Mock MD, DMD Primary Car e Provider Encounter Details Date Type Department Care Team (Late st Contact Info) Description 10/06/2022 Anti-coag visit [facility] Anticoagulation Clinic [address] [place] [address] Abbie Prieto, PharmD [address] [place] [address] [email or web address] Social History Tobacco Use Types [...] Description 03/08/2025 9:30 AM EST Pre-Admission Testing [facility] [address] [facility] 2nd [place] [address] Irineo Ruff MD [address] [place] [address] [email or web address] 03/15/2025 Procedure Pass [facility] Endoscopy Department [address] [place] [address] 03/15/2025 7:30 AM EST Hospital Encounter [facility] Endoscopy Department [address] [place] [address] Irineo Ruff MD [address] [place] [address] [email or web address] 03/15/2025 7:30 AM EST - 03/15/2025 8:15 AM EST Surgery [facility] Endoscopy Department [address] [place] [address] Irineo Ruff MD [address] [place] [address], [place] [address] [email or web address] Scheduled Procedures [...] documented as of this encounter Care Teams Sde Relationship Specialty Start Date End Date Laura Mock MD, DMD [address] [address] [email or web address].e du PCP - General Internal Medicine 06/04/21 11/11/23 Pcp, Unknown PCP - General 11/12/23 11/16/23 Laura Mock MD, DMD [address] [address] [email or web address].e du PCP - General Internal Medicine 11/17/23 12/28/23 Pcp, Unknown PCP - General 02/28/24 03/04/24 [place] [address] [address] PCP - General 03/05/24 05/17/24 Laura Mock MD, DMD [address] [address] [email or web address].e du PCP - General Internal Medicine 05/18/24 Rina Swenson MD Psychiatry 07/09/17 Laura Mock MD, DMD [address] [address] [email or web address]. du Partners Attributed Provider 09/01/21 07/03/23 Laura Mock MD, DMD [address] [address] [email or web address].e du Insurance Assigned Provider 05/31/23 03/01/24 Jakob Bob MD [address] [place] [address] [place] [address] [email or web address] Cardiology 08/22/23 Jose Cruz MD [address] [place] [address] Cardiology 08/22/23 Laura Mock MD, DMD [address] [address] [email or web address]. du [employer] Attributed Provider 09/01/21 07/03/23 [facility] [phone]. Consulting Provider 08/22/23 [facility] Connect 12/24/23 03/11/24 Cyril Morales [facility] [place] [address] Nurse Practitioner 02/27/24 documented as of this encounter Additional Source Comments The information contained in this document represents components of the legal health record. It is not the complete legal health record.[facility]
--- OUTSIDE RECORDS SUMMARY | 2025-02-07 21:01 | XMS_ITS | Encounter Summary ---
Author Organization [facility] Address [address] [facility] [address] [place] [address] Phone Care Team Providers Care Risk Specialist Name Role Phone Rina Swenson MD Unavailable Laura Mock MD, DMD Primary Car e Provider Laura Mock MD, DMD Unavailable Laura Mock MD, DMD Unavailable Jakob Bob MD Unavailable Jose Cruz MD Unavailable [phone] Laura Mock MD, DMD Unavailable Pcp, Unknown Primary Care Provider UnavailLaura Ascencio MD, DMD Primary Car e Provider Pcp, Unknown Primary Care Provider UnavailNicole Arguello MD Primary Care Provide r Laura Mock MD, DMD Primary Car e Provider Encounter Details Date Type Department Care Team (Late st Contact Info) Description 10/02/2022 Procedure Pass [facility] [address] [place] [address] Social History Tobacco Use Types Packs/Day Years [...] 03/08/2025 9:30 AM EST Pre-Admission Testing [address] 2nd [place] [address] Irineo Ruff MD [address] [place] [address] [email or web address] 03/15/2025 Procedure Pass [facility] Endoscopy Department [address] [place] [address] 03/15/2025 7:30 AM EST Hospital Encounter [facility] Endoscopy Department [address] [place] [address] Irineo Ruff MD [address] [place] [address] [email or web address] 03/15/2025 7:30 AM EST - 03/15/2025 8:15 AM EST Surgery [facility] Endoscopy Department [address] [place] [address] Irineo Ruff MD [address] [place] [address] [email or web address] COLONOSCOPY Scheduled Procedures Name Priority Associated Diagnoses [...] as of this encounter Care Teams Risk Specialist Relationship Specialty Start Date End Date Laura Mock MD, DMD [address] [address] [email or web address] PCP - General Internal Medicine 06/04/21 11/11/23 Pcp, Unknown PCP - General 11/12/23 11/16/23 Laura Mock MD, DMD [address] [address] [email or web address] PCP - General Internal Medicine 11/17/23 12/28/23 Pcp, Unknown PCP - General 02/28/24 03/04/24 Nicole Newell MD [address] [place] [address] PCP - General 03/05/24 05/17/24 Laura Mock MD, DMD [address] [address] [email or web address] PCP - General Internal Medicine 05/18/24 Rina Swenson MD Psychiatry 07/09/17 Laura Mock MD, DMD [address] [address] [email or web address] Partners Attributed Provider 09/01/21 07/03/23 Laura Mock MD, DMD [address] [address] [email or web address] du Insurance Assigned Provider 05/31/23 03/01/24 Jakob Bob MD [address] [place] [address] [email or web address] Cardiology 08/22/23 Jose Cruz MD [address] [place] [address] [email or web address] Cardiology 08/22/23 Laura Mock MD, DMD [address] [address] [email or web address] Partners Attributed Provider 09/01/21 07/03/23 [facility] [phone]. Consulting Provider 08/22/23 [facility] Connect 12/24/23 03/11/24 Cyril Morales [address] [place] [phone] Nurse Practitioner 02/27/24 documented as of this encounter Additional Source Comments The information contained in this document represents components of the legal health record. It is not the complete legal health record.[facility]
--- OUTSIDE RECORDS SUMMARY | 2025-02-07 21:01 | XMS_ITS | Encounter Summary ---
Author Organization [facility] Address [facility] [address] [address] Phone Care Team Providers Care Supervisor Hardboard Name Role Phone Tasha Greenwood MD Primary Care Provider [phone] Artie Meehan MD Primary Care Provider [phone] Artie Meehan MD Primary Care Provider [phone] Artie Meehan MD Unavailable Meera Campos Unavailable [phone] Amber Raygoza NP Unavailable Elvis Rendon MD Unavailable [phone] Modesta Rivera MD Unavailable [phone] Carlin Newman MD Unavailable [phone] Patti Bello MD Unavailable Lucila Melendez MD Unavailable [phone] Juan J Avitia DO Unavailable [phone] Tasha Greenwood MD Unavailable Mekhi Hernandez MD Unavailable [phone] Leora Fish PA-C Unavailable Angel Klein MD Unavailable [phone] Fredy Bruno MD Unavailable [phone] Sejal Dick MD Unavailable Cadence Rouse MD Unavailable [phone] Baljinder Hinson MD Unavailable [phone] Rina Swenson MD Unavailable Laura Mock [...] Procedure Pass [facility] [address] [place] [address] Social History Tobacco Use Types Packs/Day Years [...] EST Pre-Admission Testing [facility] [address] [place] [address] Irineo Ruff MD [address] [place] [address] [email or web address] 03/15/2025 Procedure Pass [facility] Endoscopy Department [address] [place] [address] 03/15/2025 7:30 AM EST Hospital Encounter [facility] Endoscopy Department [address] [place] [address] Irineo Ruff MD [address] [place] [address] [email or web address] 03/15/2025 7:30 AM EST - 03/15/2025 8:15 AM EST Surgery [facility] Endoscopy Department [address] [place] [address] Irineo Ruff MD [address] [place] [address] [email or web address] [email or web address] Scheduled Procedures Name [...] as of this encounter Care Teams Supervisor Hardboard Relationship Specialty Start Date End Date Tasha Greenwood MD [address] [place] [address] 2nd [place] [address] PCP - General 08/24/13 07/08/17 Artie Meehan MD [address] [place] [address] [place] [address] PCP - General Internal Medicine 07/09/17 10/25/17 Artie Meehan MD [address] [place] [address] [place] [address] PCP - General Internal Medicine 10/26/17 06/03/21 Laura Mock MD, DMD 1 [facility] [address] [place] [address] [email or web address] PCP - General Internal Medicine 06/04/21 11/11/23 Pcp, Unknown PCP - General 11/12/23 11/16/23 Laura Mock MD, DMD [address] [address] [email or web address] PCP - General Internal Medicine 11/17/23 12/28/23 Pcp, Unknown PCP - General 02/28/24 03/04/24 Nicole Newell MD [address] [place] [address] PCP - General 03/05/24 05/17/24 Laura Mock MD, DMD 1 [facility] [address] [place] [address] [email or web address] PCP - General Internal Medicine 05/18/24 Artie Meehan MD [address] [place] [address] [place] [address] Internal Medicine 10/26/17 04/23/22 Meera Campos PA [facility] [place] [address] Historical LMR Provider 12/14/16 Amber Raygoza NP [address] [place] [address] [address] [place] [address] Historical LMR Provider 12/14/16 Elvis Rendon MD [address] [place] [address], [address] [place] [address] Historical LMR Provider 12/14/16 8 Modesta Rivera MD [address] [place] [address], [address] [place] [address] Historical LMR Provider 12/14/16 Carlin Newman MD [address] [place] [address], 2nd [place] [address] Historical LMR Provider 12/14/16 Patti Bello MD [address] [place] [address], 2nd [place] [address] Historical LMR Provider 12/14/16 07/08/17 Lucila Melendez MD [address] [place] [address], [address] [place] [address] Historical LMR Provider 12/14/16 07/08/17 Juan J Avitia DO [facility], [place] [address] [email or web address] Historical LMR Provider 12/14/16 07/08/17 Tasha Greenwood MD [address] [place] [address], 2nd [place] [address] [email or web address] Historical LMR Provider 12/14/16 07/08/17 Mekhi Hernandez MD [address] [place] [address] [place] [address] [email or web address] specialty [email or web address] Wide Premium Packerssaint [email or web address] Historical LMR Provider 12/14/16 07/08/17 Leora Fish PA-C [address] [place] [address] [facility] [place] [address] [email or web address] Historical LMR Provider 12/14/16 8 Angel Klein MD [address] [place] [address], [address] [place] [address] [email or web address] Historical LMR Provider 12/14/16 Fredy Bruno MD [address] [place] [address] Historical LMR Provider 12/14/16 Sejal Dick MD [address] [place] [address] Orthoped[facility] [place] [address] Historical LMR Provider 12/14/1607/08 Cadence Rouse MD [address] [place] [address] Historical LMR Provider 12/14/16 Baljinder Hinson MD [address] [place] [address] Historical LMR Provider 12/14/16 Rina Swenson MD [address] [place] [address] Psychiatry 07/09/17 Laura Mock MD, DMD [address] [address] [email or web address] Partners Attributed Provider 09/01/21 07/03/23 Laura Mock MD, DMD [address] [address] [email or web address] Insurance Assigned Provider 05/31/23 03/01/24 Jakob Bob MD [address] [place] [address] [address] [place] [address] [email or web address] Cardiology 08/22/23 Jose Cruz MD [address] [place] [address], [address] [place] [address] Cardiology 08/22/23 Laura Mock MD, DMD 1 [facility] [address] [place] [address] [email or web address] Partners Attributed Provider 09/01/21 07/03/23 [facility] [phone]. Consulting Provider 08/22/23 [facility] Connect 12/24/23 03/11/24 Cyril Morales [address] [place] [phone] Nurse Practitioner 02/27/24 documented as of this encounter Additional Source Comments The information contained in this document represents components of the legal health record. It is not the complete legal health record.[facility]
--- OUTSIDE RECORDS SUMMARY | 2025-02-07 21:01 | XMS_ITS | Encounter Summary ---
Author Organization [facility] Address [address] [facility] [address] [place] [address] Phone Care Team Providers Care Field Underwriter Name Role Phone Artie Meehan MD Primary Care Provider [phone] Artie Meehan MD Unavailable Rina Swenson MD Unavailable [phone] Laura Mock MD, DMD Primary Car e [...] Procedure Pass [facility] Scan - [address] [address] Social History Tobacco Use Types Packs/Day Years [...] ([facility] st Contact Info) Description 03/08/2025 9:30 AM EST Pre-Admission Testing [address] 2nd [place] [address] Irineo Ruff MD [address] [place] [address] [email or web address] 03/15/2025 Procedure Pass [facility] Endoscopy Department [address] [place] [address] 03/15/2025 7:30 AM EST Hospital Encounter [facility] Endoscopy Department [address] [place] [address] Irineo Ruff MD [address] [place] [address] [email or web address] 03/15/2025 7:30 AM EST - 03/15/2025 8:15 AM EST Surgery [facility] Endoscopy Department [address] [place] [address] Irineo Ruff MD [address] [place] [address] [email or web address] COLONOSCOPY Scheduled Procedures Name [...] as of this encounter Care Teams Field Underwriter Relationship Specialty Start Date End Date Artie Meehan MD [address] [place] [address] Dr Dior [facility] [place] [address] PCP - General Internal Medicine 10/26/17 06/03/21 Laura Mock MD, DMD [address] [address] [email or web address] PCP - General Internal Medicine 06/04/21 11/11/23 Pcp, Unknown PCP - General 11/12/23 11/16/23 Laura Mock MD, DMD [address] [address] [email or web address] PCP - General Internal Medicine 11/17/23 12/28/23 Pcp, Unknown PCP - General 02/28/24 03/04/24 [place] [address] [place] [address] PCP - General 03/05/24 05/17/24 Laura Mock MD, DMD [address] [address] [email or web address] PCP - General Internal Medicine 05/18/24 Artie Meehan MD [address] [place] [address] [place] [address] Internal Medicine 10/26/17 04/23/22 Rina Swenson MD [address] [place] [address] [place] [address] Psychiatry 07/09/17 Laura Mock MD, DMD [address] [address] [email or web address] Partners Attributed Provider 09/01/21 07/03/23 Laura Mock MD, DMD [address] [address] [email or web address] Insurance Assigned Provider 05/31/23 03/01/24 Jakob Bob MD [address] [place] [address] [email or web address] Cardiology 08/22/23 Jose Cruz MD [address] [place] [address] Cardiology 08/22/23 Laura Mock MD, DMD [address] [address] [email or web address] Partners Attributed Provider 09/01/21 07/03/23 [place] [facility] [phone]. Consulting Provider 08/22/23 CARMINA, CAROLANN Connect 12/24/23 03/11/24 Cyril Morales [address] [place] [address] Nurse Practitioner 02/27/24 documented as of this encounter Additional Source Comments The information contained in this document represents components of the legal health record. It is not the complete legal health record.[facility]
--- OUTSIDE RECORDS SUMMARY | 2025-02-07 21:01 | XMS_ITS | Encounter Summary ---
Author Organization [facility] Address [address] [facility] [address] [place] [address] Phone Care Team Providers Care Casket Assembler Name Role Phone Rina Swenson MD Unavailable Laura Mock MD, DMD Primary Car e Provider Laura Mock MD, DMD Unavailable Laura Mock MD, DMD Unavailable Jakob Bob MD Unavailable [phone] Jose Cruz MD Unavailable Laura Mock MD, DMD Unavailable Pcp, Unknown Primary Care Provider UnavailLaura Ascencio MD, DMD Primary Car e Provider Pcp, Unknown Primary Care Provider UnavailNicole Arguello MD Primary Care Provide r Laura Mock MD, DMD Primary Car e Provider Encounter Details Date Type Department Care Team (Late st Contact Info) Description 10/09/2022 Procedure Pass [facility] CT Imaging, [place] [address] [place] [address] Social History Tobacco Use Types Packs/Day Years [...] Description 03/08/2025 9:30 AM EST Pre-Admission Testing [facility] [address] [facility] 2nd [place] [address] Irineo Ruff MD [address] [place] [address] [email or web address] 03/15/2025 Procedure Pass [facility] Endoscopy Department [address] [place] [address] 03/15/2025 7:30 AM EST Hospital Encounter [facility] Endoscopy Department [address] [place] [address] Irineo Ruff MD [address] [place] [address] [email or web address] 03/15/2025 7:30 AM EST - 03/15/2025 8:15 AM EST Surgery [facility] Endoscopy Department [address] [place] [address] Irineo Ruff MD [address] [place] [address] [email or web address] Scheduled Procedures Name Priority Associated Diagnoses [...] documented as of this encounter Care Teams Casket Assembler Relationship Specialty Start Date End Date Laura Mock MD, DMD [address] [address] [email or web address] PCP - General Internal Medicine 06/04/21 11/11/23 Pcp, Unknown PCP - General 11/12/23 11/16/23 Laura Mock MD, DMD [address] [address] [email or web address] PCP - General Internal Medicine 11/17/23 12/28/23 Pcp, Unknown PCP - General 02/28/24 03/04/24 Nicole Newell MD [address] [place] [address] PCP - General 03/05/24 05/17/24 Laura Mock MD, DMD [address] [address] [email or web address] PCP - General Internal Medicine 05/18/24 Rina Swenson MD Psychiatry 07/09/17 Laura Mock MD, DMD [address] [address] [email or web address] Partners Attributed Provider 09/01/21 07/03/23 Laura Mock MD, DMD [address] [address] [email or web address] du Insurance Assigned Provider 05/31/23 03/01/24 Jakob Bob MD [address] [place] [address] [email or web address] Cardiology 08/22/23 Jose Cruz MD [address] [place] [address] Cardiology 08/22/23 Laura Mock MD, DMD [address] [address] [email or web address] Attributed Provider 09/01/21 07/03/23 [place] [facility] [phone]. Consulting Provider 08/22/23 [facility] Connect 12/24/23 03/11/24 Cyril Morales [address] [place], [place] [phone] Nurse Practitioner 02/27/24 documented as of this encounter Additional Source Comments The information contained in this document represents components of the legal health record. It is not the complete legal health record.[facility]
--- OUTSIDE RECORDS SUMMARY | 2025-02-07 21:01 | XMS_ITS | Encounter Summary ---
Author Organization [facility] Address [facility] [employer] [address] [address] Phone Care Team Providers Care Paleontology Teacher Name Role Phone Rina Swenson MD Unavailable Laura Mock MD, DMD Primary Car e Provider Laura Mock MD, DMD Unavailable Laura Mock MD, DMD Unavailable Jakob Bob MD Unavailable [phone] Jose Cruz MD Unavailable [phone] Laura Mock MD, DMD Unavailable Pcp, Unknown [...] Description 03/08/2025 9:30 AM EST Pre-Admission Testing [address] [address] Irineo Ruff MD [address] [place] [address] [email or web address] 03/15/2025 Procedure Pass [facility] Endoscopy Department [address] [place] [address] 03/15/2025 7:30 AM EST Hospital Encounter [facility] Endoscopy Department [address] [place] [address] Irineo Ruff MD [address] [place] [address] [email or web address] 03/15/2025 7:30 AM EST - 03/15/2025 8:15 AM EST Surgery [facility] Endoscopy Department [address] [place] [address] Irineo Ruff MD [address] [place] [address] [email or web address] COLONOSCOPY Scheduled Procedures Name Priority Associated [...] documented as of this encounter Care Teams Paleontology Teacher Relationship Specialty Start Date End Date Laura Mock MD, DMD [address] [address] [email or web address] PCP - General Internal Medicine 06/04/21 11/11/23 Pcp, Unknown PCP - General 11/12/23 11/16/23 Laura Mock MD, DMD [address] [address] [email or web address] PCP - General Internal Medicine 11/17/23 12/28/23 Pcp, Unknown PCP - General 02/28/24 03/04/24 [place] [address] [address] PCP - General 03/05/24 05/17/24 Laura Mock MD, DMD [address] [address] [email or web address] PCP - General Internal Medicine 05/18/24 Rina Swenson MD Psychiatry 07/09/17 Laura Mock MD, DMD [address] [address] [email or web address] Partners Attributed Provider 09/01/21 07/03/23 Laura Mock MD, DMD [address] [address] [email or web address] du Insurance Assigned Provider 05/31/23 03/01/24 Jakob Bob MD [address] [place] [address] [email or web address] Cardiology 08/22/23 Jose Cruz MD [address] [place] [address] Cardiology 08/22/23 Laura Mock MD, DMD [address] [address] [email or web address] Partners Attributed Provider 09/01/21 07/03/23 [facility] [phone]. Consulting Provider 08/22/23 [facility] Connect 12/24/23 03/11/24 Cyril Morales [address] [place] [phone] Nurse Practitioner 02/27/24 documented as of this encounter Additional Source Comments The information contained in this document represents components of the legal health record. It is not the complete legal health record.[facility]
--- OUTSIDE RECORDS SUMMARY | 2025-02-07 21:01 | XMS_ITS | Clinical Summary ---
Author Organization [facility] Address [address] [place] [address] Phone Care Team Providers Care Lining Maker Name Role Phone Rina Swenson MD [...] mycobacterial disease, followed by thoracic team at [facility]; has chronic changes on CT No [...] a the option to go to [facility] Coumadin clinic or to go back to [facility] where she has been a [...] Encounters Date Type Department Care Team Description 01/28/2025 Ancillary Orders [facility] [address] [place] [address] Karena Betancur MD 01/28/2025 Ancillary Orders [facility] [address] [place] [address] Karena Betancur MD 01/21/2025 Telephone [facility] Thoracic Surgery [address] [place] [address] Angely Morgan PALiana 12/30/2024 Telephone [facility] [address] 2nd [place] [address] Laura Mock MD, DMD Medication Question from [...] Description 03/08/2025 9:30 AM EST Pre-Admission Testing [address] 2nd [place] [address] Irineo Ruff MD [address] [place] [address] [email or web address] 03/15/2025 Procedure Pass [facility] Endoscopy Department [address] [place] [address] 03/15/2025 7:30 AM EST Hospital Encounter [facility] Endoscopy Department [address] [place] [address] Irineo Ruff MD [address] [place] [address] [email or web address] 03/15/2025 7:30 AM EST - 03/15/2025 8:15 AM EST Surgery [facility] Endoscopy Department [address] [place] [address] Irineo Ruff MD [address] [place] [address], [place] [address] [email or web address] COLONOSCOPY Scheduled Procedures Name Priority [...] this topic Medical Devices Implanted Type Area Trauma Doctor Device Identifier Shelf Expiration Date Model / Serial / Lot St Drew Aortic Valve 23mm-04/19/2002 Implanted:04/19/19 03 (Quantity not on file) Description:Per OP report fr om 04/19/02: Pt has a 23mm [employer] Drew Aortic Valve replacement 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: cond to 1.5T and 3T (see scanned [...] EDT) SODIUM 139 136 - 145 mmol/L [facility] POTASSIUM 4.8 3.4 - 5.1 mmol/L [facility] CHLORIDE 100 98 - 107 mmol/L [facility] CO2 28 22 - 31 mmol/L [facility] BUN 18 6 - 23 mg/dL [facility] CREATININE 0.71 0.50 - 1.20 mg/dL [facility] GLUCOSE 94 70 - 100 mg/dL [facility] CALCIUM 9.6 8.8 - 10.7 mg/dL [facility] EGFR 83 >59 mL/min/1.7 3m2 [facility] Comment:Estimated glomerular filtration rate calculated using the CKD-EPI refit equation. ANION GAP 11 7 - 17 mmol/L [facility] Blood 12/04/2023 1:58 PM EDT 12/04/2023 2:02 PM EDT us Jim Zacarias MD LAB BLOOD BKR ORDERA BLES Final Result Performing Organization Address City/State/[facility] Co de Phone Number [facility] [address] [place] [address] * BD DXA AXIAL (SPINE) WITH HIP [...] bone mineral density was calculated at 0.409 gm/ao1sfjq a T- score of -4 falling within [...] Maintenance Insurance MEDICARE PART A & B [employer] MEDEX SUPPLEMENT MEDICARE PART A & B [employer] MEDEX SUPPLEMENT MEDICARE PART A & B [employer] MEDEX SUPPLEMENT MEDICARE PART A & B [employer] MEDEX SUPPLEMENT MEDICARE PART A & B [employer] MEDEX SUPPLEMENT MEDICARE PART A & B [employer] MEDEX SUPPLEMENT Member Subscriber Plan / Payer (Ef fective 2003-Present) Name:Anna Castillo Relation to Subscriber:Self Name:Anna Castillo Payer ID:[id number] (NAIC) Type:[employer] Address: [place] [id number] MEDICARE PART A & B [employer] MEDEX SUPPLEMENT MEDICARE PART A & B [employer] MEDEX SUPPLEMENT MEDICARE PART A & B [facility] MEDEX SUPPLEMENT Advance Directives For more information, please contact: [phone] (9AM - 5PM [facility], Friday-Friday) Documents on File Type Date Recorded 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 PCP - General Internal Medicine 05/18/24 Rina Swenson MD Psychiatry 07/09/17 Jakob Bob MD [address] [place], [place] [address]B[address] [place] [address] [email or web address] Cardiology 08/22/23 Jose Cruz MD [address] [place] [address], [address] [place] [address] [email or web address] Cardiology 08/22/23 [facility] [phone]. Consulting Provider 08/22/23 Cyril Morales [address] [place] [address] Nurse Practitioner 02/27/24 Additional Source Comments The information contained in this document represents components of the legal health record. It is not the complete legal health record.[facility]
--- OUTSIDE RECORDS SUMMARY | 2025-02-07 21:01 | XMS_ITS | Encounter Summary ---
Author Organization [facility] Address [facility] [employer] [address] [address] Phone Care Team Providers Care Predatory Game Hunter Name Role Phone Rina Swenson MD Unavailable [...] Description 03/08/2025 9:30 AM EST Pre-Admission Testing [address] [address] Irineo Ruff MD [address] [place] [address] [email or web address] 03/15/2025 Procedure Pass [facility] Endoscopy Department [address] [place] [address] 03/15/2025 7:30 AM EST Hospital Encounter [facility] Endoscopy Department [address] [place] [address] Irineo Ruff MD [address] [place] [address] [email or web address] 03/15/2025 7:30 AM EST - 03/15/2025 8:15 AM EST Surgery [facility] Endoscopy Department [address] [place] [address] Irineo Ruff MD [address] [place] [address] [email or web address] COLONOSCOPY Scheduled Procedures Name Priority [...] documented as of this encounter Care Teams Predatory Game Hunter Relationship Specialty Start Date End Date Laura Mock MD, DMD [address] [address] [email or web address] PCP - General Internal Medicine 06/04/21 11/11/23 Pcp, Unknown PCP - General 11/12/23 11/16/23 Laura Mock MD, DMD [address] [address] [email or web address] PCP - General Internal Medicine 11/17/23 12/28/23 Pcp, Unknown PCP - General 02/28/24 03/04/24 [place] [address] [address] PCP - General 03/05/24 05/17/24 Laura Mock MD, DMD [address] [address] [email or web address] PCP - General Internal Medicine 05/18/24 Rina Swenson MD Psychiatry 07/09/17 Laura Mock MD, DMD [address] [address] [email or web address] Partners Attributed Provider 09/01/21 07/03/23 Laura Mock MD, DMD [address] [address] [email or web address] du Insurance Assigned Provider 05/31/23 03/01/24 Jakob Bob MD [address] [place] [address] [email or web address] Cardiology 08/22/23 Jose Cruz MD [address] [place] [address] Cardiology 08/22/23 Laura Mock MD, DMD [address] [address] [email or web address] Partners Attributed Provider 09/01/21 07/03/23 [facility] [phone]. Consulting Provider 08/22/23 [facility] Connect 12/24/23 03/11/24 Cyril Morales [address] [place] [phone] Nurse Practitioner 02/27/24 documented as of this encounter Additional Source Comments The information contained in this document represents components of the legal health record. It is not the complete legal health record.[facility]
--- OUTSIDE RECORDS SUMMARY | 2025-02-07 21:01 | XMS_ITS | Encounter Summary ---
Author Organization [facility] Address [address] [place] [address] [place] [address] Phone Care Team Providers Care Utility Locator Name Role Phone Rina Swenson MD Unavailable Laura Mock MD, DMD Primary Car e Provider Laura Mock MD, DMD Unavailable Laura Mock MD, DMD Unavailable Jakob Bob MD Unavailable Jose Cruz MD Unavailable [phone] Laura Mock MD, DMD Unavailable Pcp, Unknown Primary Care Provider UnavailLaura Ascencio MD, DMD Primary Car e Provider Pcp, Unknown Primary Care Provider UnavailNicole Arguello MD Primary Care Provide r Laura Mock MD, DMD Primary Car e Provider Encounter Details Date Type Department Care Team (Late st Contact Info) Description 03/23/2023 Anti-coag visit [facility] Anticoagulation Clinic [address] [place] [address] Purvi Lawler, PharmD [address] [place] [address] [email or web address] Social History Tobacco [...] Description 03/08/2025 9:30 AM EST Pre-Admission Testing [facility] [address] [facility] 2nd [place] [address] Irineo Ruff MD [address] [place] [address] [place] [address] [email or web address] 03/15/2025 Procedure Pass [facility] Endoscopy Department [address] [place] [address] 03/15/2025 7:30 AM EST Hospital Encounter [facility] Endoscopy Department [address] [place] [address] Irineo Ruff MD [address] [place] [address] [email or web address] 03/15/2025 7:30 AM EST - 03/15/2025 8:15 AM EST Surgery [facility] Endoscopy Department [address] [place] [address] Irineo Ruff MD [address] [place] [address], [place] [address] [email or web address] COLONOSCOPY Scheduled Procedures Name Priority Associated Diagnoses [...] documented as of this encounter Care Teams Utility Locator Relationship Specialty Start Date End Date Laura Mock MD, DMD [address] [address] [email or web address] PCP - General Internal Medicine 06/04/21 11/11/23 Pcp, Unknown PCP - General 11/12/23 11/16/23 Laura Mock MD, DMD [address] [address] [email or web address] PCP - General Internal Medicine 11/17/23 12/28/23 Pcp, Unknown PCP - General 02/28/24 03/04/24 [place] [address] [address] PCP - General 03/05/24 05/17/24 Laura Mock MD, DMD [address] [address] [email or web address] PCP - General Internal Medicine 05/18/24 Rina Swenson MD Psychiatry 07/09/17 Laura Mock MD, DMD [address] [address] [email or web address] du Partners Attributed Provider 09/01/21 07/03/23 Laura Mock MD, DMD [address] [address] [email or web address] du Insurance Assigned Provider 05/31/23 03/01/24 Jakob Bob MD [address] [place] [address] [email or web address] Cardiology 08/22/23 Jose Cruz MD [address] [place] [address] Cardiology 08/22/23 Laura Mock MD, DMD [address] [address] [email or web address] Partners Attributed Provider 09/01/21 07/03/23 [facility] [phone]. Consulting Provider 08/22/23 [facility] Connect 12/24/23 03/11/24 Cyril Morales [address] [place] [address] Nurse Practitioner 02/27/24 documented as of this encounter Additional Source Comments The information contained in this document represents components of the legal health record. It is not the complete legal health record.[facility]
--- OUTSIDE RECORDS SUMMARY | 2025-02-07 21:01 | XMS_ITS | Encounter Summary ---
Author Organization [facility] Address [facility] [employer] [facility] [address] [place] [address] Phone Care Team Providers Care Broom Bundler Name Role Phone Artie Meehan MD Primary Care Provider Artie Meehan MD Primary Care Provider Artie Meehan MD Unavailable Rina Swenson MD Unavailable Laura Mock MD, DMD Primary Car e Provider Laura Mock MD, DMD Unavailable Laura Mock MD, DMD Unavailable Jakob Bob MD Unavailable Jose Cruz MD Unavailable [phone] Laura Mock MD, DMD Unavailable Pcp, Unknown Primary Care Provider UnavailLaura Ascencio MD, DMD Primary Car e Provider Pcp, Unknown Primary Care Provider UnavailNicole Arguello MD Primary Care Provide r Laura Mock MD, DMD Primary Car e Provider Encounter Details Date Type Department Care Team (Late st Contact Info) Description 08/19/2017 Ancillary Orders Virtual Department [address] [place] [address] Artie Meehan MD [address] [place] [address] [place] [address] Breast screening Social History Tobacco Use Types [...] Department Care Team (Late Contact Info) Description 03/08/2025 9:30 AM EST Pre-Admission Testing [address] 2nd [place] [address] Irineo Ruff MD [address] [place] [address] [email or web address] 03/15/2025 Procedure Pass [facility] Endoscopy Department [address] [place] [address] 03/15/2025 7:30 AM EST Hospital Encounter [facility] Endoscopy Department [address] [place] [address] Irineo Ruff MD [address] [place] [address] [email or web address] 03/15/2025 7:30 AM EST - 03/15/2025 8:15 AM EST Surgery [facility] Endoscopy Department [address] [place] [address] Irineo Ruff MD [address] [place] [address] [email or web address] COLONOSCOPY Scheduled Procedures Name Priority Associated [...] lowers the sensitivity of mammography. POS - [id number] Narrative 09/12/2017 2:03 PM EDT Full-field digital [...] whichlowers the sensitivity of mammography. POS - [id number] Artie Meehan MD IMG MG EXAMS Final [...] documented as of this encounter Care Teams Broom Bundler Relationship Specialty Start Date End Date Artie Meehan MD [address] [place] [address] Dr [address] [place] [address] PCP - General Internal Medicine 07/09/17 10/25/17 Artie Meehan MD [address] [place] [address] Dr [address] [place] [address] PCP - General Internal Medicine 10/26/17 06/03/21 Laura Mock MD, DMD [address] [address] [email or web address] PCP - General Internal Medicine 06/04/21 11/11/23 Pcp, Unknown PCP - General 11/12/23 11/16/23 Laura Mock MD, DMD [address] [address] [email or web address] du PCP - General Internal Medicine 11/17/23 12/28/23 Pcp, Unknown PCP - General 02/28/24 03/04/24 [place] [address] [address] PCP - General 03/05/24 05/17/24 Laura Mock MD, DMD [address] [address] [email or web address] du PCP - General Internal Medicine 05/18/24 Artie Meehan MD [address] [place] [address] Dr Dior [facility] [place] [address] Internal Medicine 10/26/17 04/23/22 Rina Swenson MD [address] [place] [address] Dr [address] [place], [place] [address] [address] Psychiatry 07/09/17 Laura Mock MD, DMD [address] [address] [email or web address] Partners Attributed Provider 09/01/21 07/03/23 Laura Mock MD, DMD [address] [address] [email or web address] Insurance Assigned Provider 05/31/23 03/01/24 Jakob Bob MD 75 [facility] [address] [place] [address] [email or web address] Cardiology 08/22/23 Jose Cruz MD 22 [facility], [address] [place] [address] [email or web address] Cardiology 08/22/23 Laura Mock MD, DMD 1 [facility] [address] [place] [address] [email or web address] Partners Attributed Provider 09/01/21 07/03/23 [place] [facility] [phone]. Consulting Provider 08/22/23 [facility] Connect 12/24/23 03/11/24 Cyril Morales [address] [place] [address] Nurse Practitioner 02/27/24 documented as of this encounter Additional Source Comments The information contained in this document represents components of the legal health record. It is not the complete legal health record.[facility]
--- OUTSIDE RECORDS SUMMARY | 2025-02-07 21:02 | XMS_ITS | Encounter Summary ---
Author Organization [facility] Address [address] [facility] [address] [place] [address] Phone Care Team Providers Care Director Speech Language Name Role Phone Artie Meehan MD Primary Care Provider [phone] Artie Meehan MD Unavailable Rina Swenson MD Unavailable Laura Mock MD, DMD Primary Car e Provider Laura Mock MD, DMD Unavailable Laura Mock MD, DMD Unavailable Jakob Bob MD Unavailable Jose Cruz MD Unavailable [phone] Laura Mock MD, DMD Unavailable Pcp, Unknown Primary Care Provider UnavailLaura Ascencio MD, DMD Primary Car e Provider Pcp, Unknown Primary Care Provider UnavailNicole Arguello MD Primary Care Provide r Laura Mock MD, DMD Primary Car e Provider Encounter Details Date Type Department Care Team (Late st Contact Info) Description 05/23/2018 Transcribe Orders [facility] Main [address] [place] [address] Artie Meehan MD [address] [place] [address] [place] [address] 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 st Contact Info) Description 03/08/2025 9:30 AM EST Pre-Admission Testing [address] 2nd [place] [address] Irineo Ruff MD [address] [place] [address] [email or web address] 03/15/2025 Procedure Pass [facility] Endoscopy Department [address] [place] [address] 03/15/2025 7:30 AM EST Hospital Encounter [facility] Endoscopy Department [address] [place] [address] Irineo Ruff MD [address] [place] [address] 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 documented in this encounter Results * (ABNORMAL) PT-INR (05/23/2018 11:36 AM EDT) PT 14.8(H) 10.2 - 12.9 sec [facility] INR 1.3(H) 0.9 - 1.1 [facility] Comment:Therapeutic range fo r oral Vitamin K antagonists: 2.0-3.5 Blood 05/23/2018 11:3 6 AM EDT 05/23/2018 11:39 AM EDT us Artie Meehan MD LAB BLOOD BKR ORDERABLES Final Result [facility] [address] [place] [address] documented in this encounter Visit Diagnoses Diagnosis 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 Abnormal colonoscopy documented in this encounter Additional Health Concerns Infection Onset Date Last Indicated Resolved Time CoV-Presumed 03/23/2022 03/23/2022 04/13/2022 1:23 AM EST CoV-Risk 11/12/2023 11/12/2023 11/12/2023 5:12 PM EDT COVID-19 11/12/2023 11/12/2023 12/03/2023 1:21 AM EDT documented as of this encounter Care Teams Director Speech Language Relationship Specialty Start Date End Date Artie Meehan MD [address] [place] [address] [place] [address] PCP - General Internal Medicine 10/26/17 06/03/21 Laura Mock MD, DMD 1 [facility] [address] [place] [address] [email or web address] PCP - General Internal Medicine 06/04/21 11/11/23 Pcp, Unknown PCP - General 11/12/23 11/16/23 Laura Mock MD, DMD [address] [address] [email or web address] du PCP - General Internal Medicine 11/17/23 12/28/23 Pcp, Unknown PCP - General 02/28/24 03/04/24 Nicole Newell MD [address] [place] [address] PCP - General 03/05/24 05/17/24 Laura Mock MD, DMD [address] [address] [email or web address] du PCP - General Internal Medicine 05/18/24 Artie Meehan MD [address] [place] [address] [address] Internal Medicine 10/26/17 04/23/22 Rina Swenson MD [address] [place] [address] [address] Psychiatry 07/09/17 Laura Mock MD, DMD [address] [address] [email or web address] Partners Attributed Provider 09/01/21 07/03/23 Laura Mock MD, DMD 1 [facility] [address] [place] [address] [email or web address] Insurance Assigned Provider 05/31/23 03/01/24 Jakob Bob MD 75 [facility] [address] [place] [address] [email or web address] Cardiology 08/22/23 Jose Cruz MD [address] [place] [address], [facility] [address] [place] [address] [email or web address] Cardiology 08/22/23 Laura Mock MD, DMD 1 [facility] [address] [place] [address] [email or web address] Attributed Provider 09/01/21 07/03/23 [place] [facility] [phone]. Consulting Provider 08/22/23 [facility] Connect 12/24/23 03/11/24 Cyril Morales [address] [place] [phone] Nurse Practitioner 02/27/24 documented as of this encounter Additional Source Comments The information contained in this document represents components of the legal health record. It is not the complete legal health record.[facility]
--- OUTSIDE RECORDS SUMMARY | 2025-02-07 21:02 | XMS_ITS | Encounter Summary ---
Author Organization [facility] Address [facility] [employer] [address] [address] Phone Care Team Providers Care Podiatry Assistant Name Role Phone Artie Meehan MD Primary Care Provider Artie Meehan MD Unavailable Rina Swenson MD Unavailable [phone] Laura Mock MD, DMD Primary Car e [...] sequela Artie Meehan MD Phone: tel: fax: [facility] [address] [place] [address] Phone: tel: Referral ID Status Reason Start Date Expiration Date Visits Re quested Visits Authorized [id number] Closed 11/27/2018 02/23/2019 99 99 Encounter Details Date Type Department Care Team (Latest Contact Info) Description 11/27/2018 Transcribe Orders [facility] [address] [place] [address] Artie Meehan MD [address] [place] [address] [facility] [place] [address] Left wrist fracture, sequela (Primary Dx) Social [...] Description 03/08/2025 9:30 AM EST [facility] 2nd [place] [address] Irineo Ruff MD [address] [place] [address] [place] [address] [email or web address] 03/15/2025 Procedure Pass [facility] Endoscopy Department [address] [place] [address] 03/15/2025 7:30 AM EST Hospital Encounter [facility] Endoscopy Department [address] [place] [address] Irineo Ruff MD [address] [place] [address] [place] [address] [email or web address] 03/15/2025 7:30 AM EST - 03/15/2025 8:15 AM EST Surgery [facility] Endoscopy Department [address] [place] [address] Irineo Ruff MD [address] [place] [address] [place] [address] [email or web address] COLONOSCOPY Scheduled Procedures Name Priority Associated Diagnoses Date/Ti me COLONOSCOPY Abnormal colonoscopy 03/15/2025 7:30 AM EST documented as of this encounter Procedures Procedure Name Priority Date/Time Associated Diagnosis Comments AMB REFERRAL TO [facility] OCCUPATIONAL THERAPY Routine 12/08/2018 4:10 PM EDT Left wrist fracture, sequela documented in this encounter Results * Ambulatory referral to [facility] Occupational Therapy (12/08/2018 4:10 PM EDT) Artie Meehan MD AMB [facility] REFERRALS Final R esult documented in this encounter Visit Diagnoses Diagnosis Left wrist fracture, sequela- Primary Abnormal colonoscopy documented in this encounter Additional Health Concerns Infection Onset Date Last Indicated Resolved Time CoV-Presumed 03/23/2022 03/23/2022 04/13/2022 1:23 AM EST CoV-Risk 11/12/2023 11/12/2023 11/12/2023 5:12 PM EDT COVID-19 11/12/2023 11/12/2023 12/03/2023 1:21 AM EDT documented as of this encounter Care Teams Podiatry Assistant Relationship Specialty Start Date End Date Artie Meehan MD [address] [place] [address] [place] [address] PCP - General Internal Medicine 10/26/17 06/03/21 Laura Mock MD, DMD 1 [address] [place] [address] [email or web address] du PCP - General Internal Medicine 06/04/21 11/11/23 Pcp, Unknown PCP - General 11/12/23 11/16/23 Laura Mock MD, DMD [address] [address] [email or web address] du PCP - General Internal Medicine 11/17/23 12/28/23 Pcp, Unknown PCP - General 02/28/24 03/04/24 Nicole Newell MD [address] [place] [address] PCP - General 03/05/24 05/17/24 Laura Mock MD, DMD [address] [address] [email or web address] du PCP - General Internal Medicine 05/18/24 Artie Meehan MD [address] [place] [address] [place] [address] Internal Medicine 10/26/17 04/23/22 Rina Swenson MD [address] [place] [address] [place] [address] Psychiatry 07/09/17 Laura Mock MD, DMD [address] [address] [email or web address] Partners Attributed Provider 09/01/21 07/03/23 Laura Mock MD, DMD 1 [facility] [address] [place] [address] [email or web address] du Insurance Assigned Provider 05/31/23 03/01/24 Jakob Bob MD [facility] [place] [address] [email or web address] Cardiology 08/22/23 Jose Cruz MD [address] [place] [address], [facility] [address] [place] [address] [email or web address] Cardiology 08/22/23 Laura Mock MD, DMD [address] [address] [email or web address] Partners Attributed Provider 09/01/21 07/03/23 [facility] [facility] [phone]. Consulting Provider 08/22/23 [facility] Connect 12/24/23 03/11/24 Cyril Morales [facility] [place] [address] Nurse Practitioner 02/27/24 documented as of this encounter Additional Source Comments The information contained in this document represents components of the legal health record. It is not the complete legal health record.[facility]
--- OUTSIDE RECORDS SUMMARY | 2025-02-07 21:02 | XMS_ITS | Encounter Summary ---
Author Organization [facility] Address [address] [facility] [address] [place] [address] Phone Care Team Providers Care [employer] Consultant Name Role Phone Artie Meehan MD Primary Care Provider [phone] Artie Meehan MD Unavailable Rina Swenson MD Unavailable [phone] Laura Mock MD, DMD Primary Car e [...] Interpretation) Daryn Moyer MD Phone: tel: fax: mailto:[email or web address] Referral ID Status Reason Start Date Expiration Date Visits Re quested Visits Authorized [id number] Closed 01/06/2018 01/06/2019 1 1 Encounter Details Date Type Department Care Team (Late st Contact Info) Description 01/06/2018 Transcribe Orders [facility] [address] [place] [address] Shira Mann [address] [place] [address] [email or web address] Social History Tobacco Use Types Packs/Day [...] EST Pre-Admission Testing [facility] 45 [facility] 2nd [place] [address] Irineo Ruff MD 75 [facility] [place] [address] [email or web address] 03/15/2025 Procedure Pass [facility] Endoscopy Department [address] [place] [address] 03/15/2025 7:30 AM EST Hospital Encounter [facility] Endoscopy Department [address] [place] [address] Irineo Ruff MD [address] [place] [address] [place] [address] [email or web address] 03/15/2025 7:30 AM EST - 03/15/2025 8:15 AM EST Surgery [facility] Endoscopy Department [address] [place] [address] Irineo Ruff MD [address] [place] [address] [place] [address] [email or web address] COLONOSCOPY Scheduled Procedures Name Priority Associated Diagnoses Date/Ti me COLONOSCOPY Abnormal colonoscopy 03/15/2025 7:30 AM EST documented as of this encounter Results * MRI Lower Extremity Outside (No Interpretation) (01/06/2018 11:46 AM EST) Narrative [facility] - 01/06/2018 11:46 AM EST This study is for PACS storage only and not for interpretation. us Daryn Moyer MD IMG OUTSIDE IMAGING W/OUT INT ERPRETATION Final Result [facility] documented in this encounter Visit Diagnoses Not on filedocumented in this encounter Additional Health Concerns Infection Onset Date Last Indicated Resolved Time CoV-Presumed 03/23/2022 03/23/2022 04/13/2022 1:23 AM EST CoV-Risk 11/12/2023 11/12/2023 11/12/2023 5:12 PM EDT COVID-19 11/12/2023 11/12/2023 12/03/2023 1:21 AM EDT documented as of this encounter Care Teams [employer] Consultant Relationship Specialty Start Date End Date Artie Meehan MD [address] [place] [address] [place] [address] PCP - General Internal Medicine 10/26/17 06/03/21 Laura Mock MD, DMD 1 [facility] [address] [place] [address] [email or web address] PCP - General Internal Medicine 06/04/21 11/11/23 Pcp, Unknown PCP - General 11/12/23 11/16/23 Laura Mock MD, DMD [address] [address] [email or web address] du PCP - General Internal Medicine 11/17/23 12/28/23 Pcp, Unknown PCP - General 02/28/24 03/04/24 Nicole Newell MD [address] [place] [address] PCP - General 03/05/24 05/17/24 Laura Mock MD, DMD [address] [address] [email or web address] du PCP - General Internal Medicine 05/18/24 Artie Meehan MD [address] [place] [address] [place] [address] Internal Medicine 10/26/17 04/23/22 Rina Swenson MD [address] [place] [address] [place] [address] Psychiatry 07/09/17 Laura Mock MD, DMD [address] [address] [email or web address] Attributed Provider 09/01/21 07/03/23 Laura Mock MD, DMD 1 [facility] [address] [place] [address] [email or web address] du Insurance Assigned Provider 05/31/23 03/01/24 Jakob Bob MD 75 [facility] [address] [place] [address] [email or web address] Cardiology 08/22/23 Jose Cruz MD [address] [place] [address], [address] [place] [address] [email or web address] Cardiology 08/22/23 Laura Mock MD, DMD [address] [address] [email or web address] Partners Attributed Provider 09/01/21 07/03/23 [place] [facility] [phone]. Consulting Provider 08/22/23 [facility] Connect 12/24/23 03/11/24 Cyril Morales [address] [place] [address] Nurse Practitioner 02/27/24 documented as of this encounter Additional Source Comments The information contained in this document represents components of the legal health record. It is not the complete legal health record.[facility]
--- OUTSIDE RECORDS SUMMARY | 2025-02-07 21:02 | XMS_ITS | Encounter Summary ---
Author Organization [facility] Address [address] [employer] [facility] [address] [place] [address] Phone Care Team Providers Care Chair Mechanic Name Role Phone Artie Meehan MD Primary Care Provider [phone] Artie Meehan MD Unavailable Rina Swenson MD Unavailable [phone] Laura Mock MD, DMD Primary Car e Provider Laura Mock MD, DMD Unavailable Laura Mock MD, DMD Unavailable Jakob Bob MD Unavailable Jose Cruz MD Unavailable [phone] Laura Mock MD, DMD Unavailable Pcp, Unknown Primary Care Provider UnavailLaura Ascencio MD, DMD Primary Car e Provider Pcp, Unknown Primary Care Provider UnavailNicole Arguello MD Primary Care Provide r Laura Mock MD, DMD Primary Car e Provider Encounter Details Date Type Department Care Team (Late st Contact Info) Description 12/24/2017 Procedure Pass [facility] 75 [place] [address] Social History Tobacco Use Types Packs/Day Years [...] 03/08/2025 9:30 AM EST Pre-Admission Testing [address] [address] Irineo Ruff MD [address] [place] [address] [email or web address] 03/15/2025 Procedure Pass [facility] Endoscopy Department [address] [place] [address] 03/15/2025 7:30 AM EST Hospital Encounter [facility] Endoscopy Department [address] [place] [address] Irineo Ruff MD [address] [place] [address] [email or web address] 03/15/2025 7:30 AM EST - 03/15/2025 8:15 AM EST Surgery [facility] Endoscopy Department [address] [place] [address] Irineo Ruff MD [address] [place] [address] [place] [address] [email or web address] [email or web address] Scheduled Procedures Name Priority Associated Diagnoses [...] documented as of this encounter Care Teams Chair Mechanic Relationship Specialty Start Date End Date Artie Meehan MD [address] [place] [address] PCP - General Internal Medicine 10/26/17 06/03/21 Laura Mock MD, DMD [address] [address] [email or web address] PCP - General Internal Medicine 06/04/21 11/11/23 Pcp, Unknown PCP - General 11/12/23 11/16/23 Laura Mock MD, DMD [address] [address] [email or web address] PCP - General Internal Medicine 11/17/23 12/28/23 Pcp, Unknown PCP - General 02/28/24 03/04/24 Nicole [place] [address] [place] [address] PCP - General 03/05/24 05/17/24 Laura Mock MD, DMD [address] [address] [email or web address] du PCP - General Internal Medicine 05/18/24 Artie Meehan MD [address] [place] [address] Dr D[address] [place] [address] Internal Medicine 10/26/17 04/23/22 Rina Swenson MD [address] [place] [address] [address] [place] [address] Psychiatry 07/09/17 Laura Mock MD, DMD [address] [address] [email or web address] Partners Attributed Provider 09/01/21 07/03/23 Laura Mock MD, DMD [address] [address] [email or web address] du Insurance Assigned Provider 05/31/23 03/01/24 Jakob Bob MD [address] [place] [address] [address] [place] [address] [email or web address] Cardiology 08/22/23 Jose Cruz MD [address] [place] [address], [facility] [address] [place] [address] Cardiology 08/22/23 Laura Mock MD, DMD 1 [facility] [address] [place] [address] [email or web address] Partners Attributed Provider 09/01/21 07/03/23 [facility] [phone]. Consulting Provider 08/22/23 [facility] Connect 12/24/23 03/11/24 Cyril Morales [address] [place] [address] Nurse Practitioner 02/27/24 documented as of this encounter Additional Source Comments The information contained in this document represents components of the legal health record. It is not the complete legal health record.[facility]
--- OUTSIDE RECORDS SUMMARY | 2025-02-07 21:02 | XMS_ITS | Encounter Summary ---
Author Organization [facility] Address [address] [facility] [address] [place] [address] Phone Care Team Providers Care Rubber Goods Inspector Tester Name Role Phone Artie Meehan MD Primary Care Provider [phone] Artie Meehan MD Unavailable Rina Swenson MD Unavailable [phone] Laura Mock MD, DMD Primary Car e [...] Expiration Date Visits Re quested Visits Authorized [id number] Closed 05/15/2018 05/15/2019 1 1 Encounter Details Date Type Department Care Team (Late st Contact Info) Description 05/15/2018 Ancillary Orders For Login Purposes Only 15 [facility] 2 [address] [place] [address] Artie Meehan MD [address] [place] [address] [place] [address] Pancreatic cyst Social History Tobacco Use Types [...] Description 03/08/2025 9:30 AM EST Pre-Admission Testing [facility] [address] [address] Irineo Ruff MD [address] [place] [address] [place] [address] [email or web address] 03/15/2025 Procedure Pass [facility] Endoscopy Department [address] [place] [address] 03/15/2025 7:30 AM EST Hospital Encounter [facility] Endoscopy Department [address] [place] [address] Irineo Ruff MD [address] [place] [address] [place] [address] [email or web address] 03/15/2025 7:30 AM EST - 03/15/2025 8:15 AM EST Surgery [facility] Endoscopy Department [address] [place] [address] Irineo Ruff MD [address] [place] [address] [place] [address] [email or web address] COLONOSCOPY Scheduled Procedures Name [...] renal cysts. Right hepatic lobe cyst. POS [id number] Edited by: Abbie Barnett on 05/22/2018 12:52 [...] renal cysts. Right hepatic lobe cyst. POS [id number] Edited by: Abbie Barnett on 05/22/2018 12:52 PM us Artie Meehan MD IMG MR ABDOMEN Final [...] documented as of this encounter Care Teams Rubber Goods Inspector Tester Relationship Specialty Start Date End Date Artie Meehan MD [address] [place] [address] Dr Dior [address] [place] [address] [place] [address] PCP - General Internal Medicine 10/26/17 06/03/21 Laura Mock MD, DMD [address] [address] [email or web address] PCP - General Internal Medicine 06/04/21 11/11/23 Pcp, Unknown PCP - General 11/12/23 11/16/23 Laura Mock MD, DMD [address] [address] [email or web address] du PCP - General Internal Medicine 11/17/23 12/28/23 Pcp, Unknown PCP - General 02/28/24 03/04/24 [place] [address] [address] PCP - General 03/05/24 05/17/24 Laura Mock MD, DMD [address] [address] [email or web address] PCP - General Internal Medicine 05/18/24 Artie Meehan MD [address] [place] [address] [place] [address] Internal Medicine 10/26/17 04/23/22 Rina Swenson MD [address] [place] [address] [place] [address] Psychiatry 07/09/17 Laura Mock MD, DMD [address] [address] [email or web address] Attributed Provider 09/01/21 07/03/23 Laura Mock MD, DMD 1 [facility] [address] [place] [address] [email or web address] Insurance Assigned Provider 05/31/23 03/01/24 Jakob Bob MD [address] [place] [address] [email or web address] Cardiology 08/22/23 Jose Cruz MD [address] [place] [address], [address] [place] [address] Cardiology 08/22/23 Laura Mock MD, DMD [address] [address] [email or web address] Partners Attributed Provider 09/01/21 07/03/23 [facility] [phone]. Consulting Provider 08/22/23 [facility] Connect 12/24/23 03/11/24 Cyril Morales [address] [place] [address] Nurse Practitioner 02/27/24 documented as of this encounter Additional Source Comments The information contained in this document represents components of the legal health record. It is not the complete legal health record.[facility]
--- OUTSIDE RECORDS SUMMARY | 2025-02-07 21:02 | XMS_ITS | Encounter Summary ---
Author Organization [facility] Address [address] [facility] [address] [place] [address] Phone Care Team Providers Care Graphic Art Sales Representative Name Role Phone Artie Meehan MD Primary Care Provider [phone] Artie Meehan MD Unavailable Rina Swenson MD [...] st Contact Info) Description 05/15/2018 Procedure Pass [facility], [address] [address] Social History Tobacco Use Types Packs/Day Years [...] Upcoming Encounters Date Type Department Care Team ([facility] st Contact Info) Description 03/08/2025 9:30 AM EST Pre-Admission Testing [address] [address] Irineo Ruff MD [address] [place] [address] [email or web address] 03/15/2025 Procedure Pass [facility] Endoscopy Department [address] [place] [address] 03/15/2025 7:30 AM EST Hospital Encounter [facility] Endoscopy Department [address] [place] [address] Irineo Ruff MD [address] [place] [address] [email or web address] 03/15/2025 7:30 AM EST - 03/15/2025 8:15 AM EST Surgery [facility] Endoscopy Department [address] [place] [address] Irineo Ruff MD [address] [place] [address] [email or web address] [email or web address] Scheduled Procedures Name Priority [...] documented as of this encounter Care Teams Graphic Art Sales Representative Relationship Specialty Start Date End Date Artie Meehan MD [address] [place] [address] Dr Dior [facility] [place] [address] PCP - General Internal Medicine 10/26/17 06/03/21 Laura Mock MD, DMD [address] [address] [email or web address] PCP - General Internal Medicine 06/04/21 11/11/23 Pcp, Unknown PCP - General 11/12/23 11/16/23 Laura Mock MD, DMD [address] [address] [email or web address] PCP - General Internal Medicine 11/17/23 12/28/23 Pcp, Unknown PCP - General 02/28/24 03/04/24 [place] [address] [place] [address] PCP - General 03/05/24 05/17/24 Laura Mock MD, DMD [address] [address] [email or web address] PCP - General Internal Medicine 05/18/24 Artie Meehan MD [address] [place] [address] [place] [address] Internal Medicine 10/26/17 04/23/22 Rina Swenson MD [address] [place] [address] [place] [address] Psychiatry 07/09/17 Laura Mock MD, DMD [address] [address] [email or web address] Partners Attributed Provider 09/01/21 07/03/23 Laura Mock MD, DMD [address] [address] [email or web address] Insurance Assigned Provider 05/31/23 03/01/24 Jakob Bob MD [address] [place] [address] [email or web address] Cardiology 08/22/23 Jose Cruz MD [address] [place] [address] Cardiology 08/22/23 Laura Mock MD, DMD [address] [address] [email or web address] Partners Attributed Provider 09/01/21 07/03/23 [facility] [phone]. Consulting Provider 08/22/23 [facility] Connect 12/24/23 03/11/24 Cyril Morales [address] [place] [address] Nurse Practitioner 02/27/24 documented as of this encounter Additional Source Comments The information contained in this document represents components of the legal health record. It is not the complete legal health record.[facility]
--- OUTSIDE RECORDS SUMMARY | 2025-02-07 21:02 | XMS_ITS | Encounter Summary ---
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) [...] Description 03/08/2025 9:30 AM EST Pre-Admission Testing [address] 2nd [place] [address] Irineo Ruff MD [address] [place] [address] [email or web address] 03/15/2025 Procedure Pass [facility] Endoscopy Department [address] [place] [address] 03/15/2025 7:30 AM EST Hospital Encounter [facility] Endoscopy Department [address] [place] [address] Irineo Ruff MD [address] [place] [address] [email or web address] 03/15/2025 7:30 AM EST - 03/15/2025 8:15 AM EST Surgery [facility] Endoscopy Department [address] [place] [address] Irineo Ruff MD [address] [place] [address] [place] [address] [email or web address] COLONOSCOPY Scheduled Procedures Name [...] as of this encounter Care Teams Electric Motor Repairer Relationship Specialty Start Date End Date Artie Meehan MD [address] [place] [address] Dr Dior [facility] [place] [address] PCP - General Internal Medicine 10/26/17 06/03/21 Laura Mock MD, DMD [address] [address] [email or web address] PCP - General Internal Medicine 06/04/21 11/11/23 Pcp, Unknown PCP - General 11/12/23 11/16/23 Laura Mock MD, DMD [address] [address] [email or web address] PCP - General Internal Medicine 11/17/23 12/28/23 Pcp, Unknown PCP - General 02/28/24 03/04/24 [place] [address] [address] PCP - General 03/05/24 05/17/24 Laura Mock MD, DMD [address] [address] [email or web address] PCP - General Internal Medicine 05/18/24 Artie Meehan MD [address] [place] [address] Dr [address] [place] [address] Internal Medicine 10/26/17 04/23/22 Rina Swenson MD [address] [place] [address] Dr [address] [place] [address] Psychiatry 07/09/17 Laura Mock MD, DMD [address] [address] [email or web address] Partners Attributed Provider 09/01/21 07/03/23 Laura Mock MD, DMD [address] [address] [email or web address] Insurance Assigned Provider 05/31/23 03/01/24 Jakob Bob MD [address] [place] [address] [place] [address] [email or web address] Cardiology 08/22/23 Jose Cruz MD [address] [place] [address] Cardiology 08/22/23 Laura Mock MD, DMD [address] [address] [email or web address] [employer] Attributed Provider 09/01/21 07/03/23 [facility] [phone]. Consulting Provider 08/22/23 [facility] Connect 12/24/23 03/11/24 Cyril Morales [address] [place] [address] Nurse Practitioner 02/27/24 documented as of this encounter Additional Source Comments The information contained in this document represents components of the legal health record. It is not the complete legal health record.[facility]
--- OUTSIDE RECORDS SUMMARY | 2025-02-07 21:02 | XMS_ITS | Encounter Summary ---
Author Organization [facility] Address [address] [facility] ([place], [place]) [address] [place] [address] Phone Care Team Providers Care Pain Management Nurse Name Role Phone Artie Meehan MD Primary Care Provider [phone] Artie Meehan MD Unavailable [phone] Rina Swenson MD Unavailable Laura Mock MD, [...] st Contact Info) Description 11/27/2018 Transcribe Orders [facility] [address] [place] [address] Artie Meehan MD [address] [place] [address] [place] [address] Social History Tobacco Use Types Packs/Day Years [...] Description 03/08/2025 9:30 AM EST Pre-Admission Testing [address] [address] Irineo Ruff MD [address] [place] [address] [email or web address] 03/15/[address] [facility] Endoscopy Department [address] [place] [address] 03/15/2025 7:30 AM EST Hospital Encounter [facility] Endoscopy Department [address] [place] [address] Irineo Ruff MD [address] [place] [address] [email or web address] 03/15/2025 7:30 AM EST - 03/15/2025 8:[address] [facility] Endoscopy Department [address] [place] [address] Irineo Ruff MD [address] [place] [address] [place] [address] [email or web address] [email or web address] Scheduled Procedures Name Priority [...] documented as of this encounter Care Teams Pain Management Nurse Relationship Specialty Start Date End Date Artie Meehan MD [address] [place] [address] Dr [address] [place] [address], [place] [address] PCP - General Internal Medicine 10/26/17 06/03/21 Laura Mock MD, DMD [address] [address] [email or web address] PCP - General Internal Medicine 06/04/21 11/11/23 Pcp, Unknown PCP - General 11/12/23 11/16/23 Laura Mock MD, DMD [address] [address] [email or web address] PCP - General Internal Medicine 11/17/23 12/28/23 Pcp, Unknown PCP - General 02/28/24 03/04/24 [place] [address] [address] PCP - General 03/05/24 05/17/24 Laura Mock MD, DMD [address] [address] [email or web address] PCP - General Internal Medicine 05/18/24 Artie Meehan MD [address] [place] [address] [place] [address] Internal Medicine 10/26/17 04/23/22 Rina Swenson MD [address] [place] [address] Dr Nichols [facility] [place] [address] Psychiatry 07/09/17 Laura Mock MD, DMD [address] [address] [email or web address] Partners Attributed Provider 09/01/21 07/03/23 Laura Mock MD, DMD [address] [address] [email or web address] du Insurance Assigned Provider 05/31/23 03/01/24 Jakob Bob MD [address] [place] [address] [email or web address] Cardiology 08/22/23 Jose Cruz MD [address] [place] [address], [facility] [address] [place] [address] Cardiology 08/22/23 Laura Mock MD, DMD [address] [address] [email or web address] Partners Attributed Provider 09/01/21 07/03/23 [facility] [phone]. Consulting Provider 08/22/23 [facility] Connect 12/24/23 03/11/24 Cyril Morales [address] [place] [address] Nurse Practitioner 02/27/24 documented as of this encounter Additional Source Comments The information contained in this document represents components of the legal health record. It is not the complete legal health record.[facility]
--- OUTSIDE RECORDS SUMMARY | 2025-02-07 21:02 | XMS_ITS | Encounter Summary ---
Author Organization [facility] Address [address] [employer] [facility] [address] [place] [address] Phone Care Team Providers Care Technical Mgr Name Role Phone Artie Meehan MD Primary Care Provider [phone] Artie Meehan MD Unavailable Rina Swenson MD Unavailable Laura Mock MD, DMD Primary Car e Provider Laura Mock MD, DMD Unavailable Laura Mock MD, DMD Unavailable Jakob Bob MD Unavailable [phone] Jsoe Cruz MD Unavailable [phone] Laura Mock MD, DMD Unavailable Pcp, Unknown [...] (GI/) Daryn Moyer MD Phone: tel: fax: mailto:[email or web address] Referral ID Status Reason Start Date Expiration Date Visits Re quested Visits Authorized [id number] Closed 12/24/2017 12/24/2018 1 1 Encounter Details Date Type Department Care Team ([facility] Contact Info) Description 12/24/2017 Ancillary Orders [facility] Urology [address] [place], [place] [address] [place] [address] Daryn Moyer MD [address] [place] [address] 11-3 [place] [address] [email or web address] Social History Tobacco Use Types [...] Description 03/08/2025 9:30 AM EST Pre-Admission Testing [facility] [address] [facility] 2nd [place] [address] Irineo Ruff MD [address] [place] [address] [place] [address] [email or web address] 03/15/2025 Procedure Pass [facility] Endoscopy Department [address] [place] [address] 03/15/2025 7:30 AM EST Hospital Encounter [facility] Endoscopy Department [address] [place] [address] Irineo Ruff MD [address] [place] [address] [place] [address] [email or web address] 03/15/2025 7:30 AM EST - 03/15/2025 8:15 AM EST Surgery [facility] Endoscopy Department [address] [place] [address] Irineo Ruff MD [address] [place] [address] [place] [address] [email or web address] COLONOSCOPY Scheduled Procedures Name Priority Associated Diagnoses Date/Ti sc COLONOSCOPY Abnormal colonoscopy 03/15/2025 7:30 AM EST [...] documented as of this encounter Care Teams Technical Mgr Relationship Specialty Start Date End Date Artie Meehan MD [address] [place] [address] [place] [address] PCP - General Internal Medicine 10/26/17 06/03/21 Laura Mock MD, DMD 1 [facility] [address] [place] [address] [email or web address] PCP - General Internal Medicine 06/04/21 11/11/23 Pcp, Unknown PCP - General 11/12/23 11/16/23 Laura Mock MD, DMD 1 [facility] [address] [place] [address] [email or web address] PCP - General Internal Medicine 11/17/23 12/28/23 Pcp, Unknown PCP - General 02/28/24 03/04/24 Nicole Newell MD [address] [place] [address] PCP - General 03/05/24 05/17/24 Laura Mock MD, DMD [address] [address] [email or web address] PCP - General Internal Medicine 05/18/24 Artie Meehan MD [address] [place] [address] [place] [address] Internal Medicine 10/26/17 04/23/22 Rina Swenson MD [address] [place] [address] [place] [address] Psychiatry 07/09/17 Laura Mock MD, DMD [address] [address] [email or web address] du Partners Attributed Provider 09/01/21 07/03/23 Laura Mock MD, DMD 1 [facility] [address] [place] [address] [email or web address] du Insurance Assigned Provider 05/31/23 03/01/24 Jakob Bob MD [address] [facility] [address] [place] [address] [email or web address] Cardiology 08/22/23 Jose Cruz MD [address] [facility], [address] [place] [address] [email or web address] Cardiology 08/22/23 Laura Mock MD, DMD 1 [facility] [address] [place] [address] [email or web address] du Partners Attributed Provider 09/01/21 07/03/23 [facility] [phone]. Consulting Provider 08/22/23 [facility] Connect 12/24/23 03/11/24 Cyril Morales [address] [place] [phone] Nurse Practitioner 02/27/24 documented as of this encounter Additional Source Comments The information contained in this document represents components of the legal health record. It is not the complete legal health record.[facility]
--- OUTSIDE RECORDS SUMMARY | 2025-02-07 21:02 | XMS_ITS | Encounter Summary ---
Author Organization [facility] Address [address] [employer] [facility] [address] [place] [address] Phone Care Team Providers Care Swamper Name Role Phone Artie Meehan MD Primary Care Provider [phone] Artie Meehan MD Unavailable Rina Swenson MD [...] Procedure Pass [facility] [address] [place] [address] Social History Tobacco Use Types Packs/Day Years [...] EST Pre-Admission Testing [facility] [address] [facility] 2nd [place] [address] Irineo Ruff MD [address] [place] [address] [email or web address] 03/15/2025 Procedure Pass [facility] Endoscopy Department [address] [place] [address] 03/15/2025 7:30 AM EST Hospital Encounter [facility] Endoscopy Department [address] [place] [address] Irineo Ruff MD [address] [place] [address] [email or web address] 03/15/2025 7:30 AM EST - 03/15/2025 8:15 AM EST Surgery [facility] Endoscopy Department [address] [place] [address] Irineo Ruff MD [address] [place] [address] [email or web address] COLONOSCOPY Scheduled Procedures Name [...] documented as of this encounter Care Teams Swamper Relationship Specialty Start Date End Date Artie Meehan MD [address] [place] [address] Dr Dior [address] [place] [address] PCP - General Internal Medicine 10/26/17 06/03/21 Laura Mock MD, DMD [address] [address] [email or web address] PCP - General Internal Medicine 06/04/21 11/11/23 Pcp, Unknown PCP - General 11/12/23 11/16/23 Laura Mock MD, DMD [address] [address] [email or web address] PCP - General Internal Medicine 11/17/23 12/28/23 Pcp, Unknown PCP - General 02/28/24 03/04/24 [place] [address] [place] [address] PCP - General 03/05/24 05/17/24 Laura Mock MD, DMD [address] [address] [email or web address] PCP - General Internal Medicine 05/18/24 Artie Meehan MD [address] [place] [address] [place] [address] Internal Medicine 10/26/17 04/23/22 Rina Swenson MD [address] [place] [address] [place] [address] Psychiatry 07/09/17 Laura Mock MD, DMD [address] [address] [email or web address] Partners Attributed Provider 09/01/21 07/03/23 Laura Mock MD, DMD [address] [address] [email or web address] Insurance Assigned Provider 05/31/23 03/01/24 Jakob oBb MD [address] [place] [address] [email or web address] Cardiology 08/22/23 Jose Cruz MD [address] [place] [address] [email or web address] Cardiology 08/22/23 Laura Mock MD, DMD [address] [address] [email or web address] du Partners Attributed Provider 09/01/21 07/03/23 [facility] [phone]. Consulting Provider 08/22/23 [facility] Connect 12/24/23 03/11/24 Cyril Morales [address] [place] [phone] Nurse Practitioner 02/27/24 documented as of this encounter Additional Source Comments The information contained in this document represents components of the legal health record. It is not the complete legal health record.[facility]
--- OUTSIDE RECORDS SUMMARY | 2025-02-07 21:02 | XMS_ITS | Encounter Summary ---
Author Organization [facility] Address [address] [employer] [facility] [address] [place] [address] Phone Care Team Providers Care Manager Of Administration Name Role Phone Artie Meehan MD Primary Care Provider [phone] Artie Meehan MD Unavailable Rina Swenson MD Unavailable [phone] Laura Mock MD, DMD Primary Car e [...] st Contact Info) Description 12/19/2017 Procedure Pass [facility] [address] [place] [address] Social History Tobacco Use Types Packs/Day Years [...] Description 03/08/2025 9:30 AM EST Pre-Admission Testing [facility] [address] [facility] 2nd [place] [address] Irineo Ruff MD [address] [place] [address] [email or web address] 03/15/2025 Procedure Pass [facility] Endoscopy Department [address] [place] [address] 03/15/2025 7:30 AM EST Hospital Encounter [facility] Endoscopy Department [address] [place] [address] Irineo Ruff MD [address] [place] [address] [email or web address] 03/15/2025 7:30 AM EST - 03/15/2025 8:15 AM EST Surgery [facility] Endoscopy Department [address] [place] [address] Irineo Ruff MD [address] [place] [address] [place] [address] [email or web address] [email or web address] Scheduled Procedures Name [...] as of this encounter Care Teams Manager Of Administration Relationship Specialty Start Date End Date Artie Meehan MD [address] [place] [address] PCP - General Internal Medicine 10/26/17 06/03/21 Laura Mock MD, DMD [address] [address] [email or web address] PCP - General Internal Medicine 06/04/21 11/11/23 Pcp, Unknown PCP - General 11/12/23 11/16/23 Laura Mock MD, DMD [address] [address] [email or web address] PCP - General Internal Medicine 11/17/23 12/28/23 Pcp, Unknown PCP - General 02/28/24 03/04/24 [place] [address] [place] [address] PCP - General 03/05/24 05/17/24 Laura Mock MD, DMD [address] [address] [email or web address] PCP - General Internal Medicine 05/18/24 Artie Meehan MD [address] [place] [address] Dr [address] [place] [address] Internal Medicine 10/26/17 04/23/22 Rina Swenson MD [address] [place] [address] Dr [address] [place] [address] Psychiatry 07/09/17 Laura Mock MD, DMD [address] [address] [email or web address] [employer] Attributed Provider 09/01/21 07/03/23 Laura Mock MD, DMD [address] [address] [email or web address] Insurance Assigned Provider 05/31/23 03/01/24 Jakob Bob MD [address] [place] [address] [address] [place] [address] [email or web address] Cardiology 08/22/23 Jose Cruz MD [address] [place] [address], [address] [place] [address] Cardiology 08/22/23 Laura Mock MD, DMD 1 [facility] [address] [place] [address] [email or web address] [employer] Attributed Provider 09/01/21 07/03/23 [facility] [phone]. Consulting Provider 08/22/23 [facility] Connect 12/24/23 03/11/24 Cyril Morales [address] [place] [address] Nurse Practitioner 02/27/24 documented as of this encounter Additional Source Comments The information contained in this document represents components of the legal health record. It is not the complete legal health record.[facility]
== END 2025-02-07 15:08 | disposition home or self-care (01) ==
LOC: HO.ACS 14:31
PROVIDERS: PCP Internal Medicine; Visit Provider Internal Medicine Medical Oncology
DX: Z79.01 Long term (current) use of anticoagulants (principal)

== ENCOUNTER → 2025-02-07 15:10 | Outpatient (BNV) | payer MEDICARE, SELFPAY | PROVIDERS: PCP Internal Medicine; Visit Provider Radiology Diagnostic Radiology | DX: M16.12 Unilateral primary osteoarthritis, left hip (principal) | CPT/HCPCS: 73502 ==

== ENCOUNTER 2025-02-09 15:09 | Outpatient (AMB) | payer MEDICARE, SELFPAY ==
[2025-02-09 15:27] VITALS: BP 82/60; PULSE 62; RESP 18; O2SAT 94; BMI 21.1
--- NOTE | 2025-02-09 15:27 | MHC.PC.OV ---
Vital Signs 02/09/25 15:27 Height 5 ft 1 in Weight 111 lb 8 oz BMI 21.1 BP 82/60 L Blood Pressure Location Lt brachial Position Sitting Respiration 18 Pulse 62 Pulse Source Pulse Oximeter Temp Source Temporal Artery Scan Pulse Oximetry (%) 94 Oxygen Delivery Method Room Air Intake Visit Reasons: 3mth f/u reschedule Jacquard Loom Fixer Required: No Accompanied by: Self / Same As Patient Allergies latex Allergy (Intermediate, Verified 02/09/25 16:07) Rash Medication List - Last Reconciled 02/09/25 by Artie Meehan MD acetaminophen 500 mg PO Q6H PRN ascorbate calcium (vitamin C) 1 g PO DAILY bupropion HCl XL (Wellbutrin XL) 300 mg PO QAM clonazepam 0.5 mg PO BID PRN cyanocobalamin (vitamin B-12) PO folic acid 0.8 mg PO DAILY lisinopril 10 mg PO BID [multivitamin PO] [VIT D 3 K 2 PO] warfarin See Protocol 4 mg daily per INR per Anticoagulation Services 30 days Tobacco use date assessed: 02/09/25 Fall risk assessment: No Falls in past year Last assessed Fall Risk: 02/09/25 Dental Screening Dental Screen Date: 02/09/25 Did you have a dental visit in the last 12 months?: Yes Did you have a dental problem in the last 6 months where you did not have access to dental care?: No Was dental information given to patient?: Patient has dentist HPI 3mth f/u reschedule HPI Details Patient comes in today for her follow up visit States that she has been under a lot of stress lately as her daughter, who has significant memory loss after an anoxic brain injury and is currently on dialysis for end-stage kidney disease, is now staying with her, and is causing her to experience significant caregiver stress Patient attributes her poor eating habits lately to this stress as her recent labs show a significant increase in her cholesterol levels She reports no regular exercise and that she has never taken any medication for cholesterol in the past She has a history of a cardiac valve issue and is on anticoagulation with Coumadin and goes to the Coumadin clinic here at [facility] regularly for monitoring of her PT/INR She is dissatisfied with her current clerical adviser and was previously referred to [facility] Cardiology earlier this year but she did not follow up on the referral - is now asking for a referral to [facility]iology to be placed again States that she takes clonazepam 0.5 mg twice daily but has now run out of her medication about 2 weeks early because she believes her daughter took the remaining supply although she has no proof of this and her daughter claims she does not remember taking them and she would like to know now what she can do in the meantime until her Rx is due again for refill - she normally gets her prescription from her psychiatrist here at [facility] For health maintenance, a repeat colonoscopy is scheduled for the end of February [address] scan of the chest was ordered by Dr. Ely recently, but she missed the appointment She was recently seen by her associate attorney, Dr. Anitha Fry in [place] who we previously referred her to, and she is now being treated for precancerous skin damage (actinic keratosis) Her past medical history is notable for multiple breast biopsies and a misdiagnosis of lung cancer, which was later identified as a scar from pneumonia - she had her annual mammogram last done in March 2024 She denies any headaches or dizziness Denies any chest pains, no increased SOB No nausea/vomiting, no abdominal pain No change in bowel habits noted She had her follow up labs done last week - to discuss her results [facility] Medical History Pure hypercholesterolemia Current use of anticoagulant therapy HTN (hypertension) Rash Osteoporosis Cataracts, bilateral Depression Anxiety Dyslipidemia Pancreatic cyst Benign essential hypertension Surgical History Aortic valve replaced History of cataract surgery Hx of prosthetic aortic valve replacement History of aortic valve repair History of bronchoscopy Hx of breast biopsy Family History Father CVD (cardiovascular disease) Mother Stroke Sister Colon cancer Brother Bladder cancer Maternal Grandmother No problems noted. Paternal Grandmother Stroke Family/Other Heroin addiction Other Mental health problem Substance abuse Social History Housing: House Alcohol intake: never Patient Tobacco Use Status: Never used Tobacco e-Cigarette/Vaping Use: Never Used Second Hand Smoke Exposure: Yes service: No Current occupational status: retired Cognitive needs: No Hearing needs: No Vision needs: No Questionnaire Thrive Questionnaire Date Thrive assessed: 02/09/25 I am a: Patient What is your living situation today?: I have a steady place to live Within the past 12 months, did the food you bought not last and you didn't have the money to get more?: Never true Within the past 12 months, did you worry whether your food would run out before you got money to buy more?: Never true Do you have trouble paying for medicines?: No Do you have trouble getting transportation to medical appointments?: No Do you have trouble paying your heating and electricity bill?: No Do you have trouble taking care of your child, family member or friend?: I choose not to answer this question Do you have trouble with day-to-day activities such as bathing, preparing meals, shopping, managing finances, etc.?: No Are you currently unemployed and looking for a job?: No Are you interested in more education?: Yes Please select the resources that you would like help with: None Currently or been in a relationship where the following occur: No concerns reported THRIVE Score: 0 ADELAIDA-7 AMB Questionnaire ADELAIDA-7 Date ADELAIDA - 7 assessed: 02/09/25 Source: Developed by Drs. Charly Bae, Barb Stern, Alfredo Kimball and colleagues, with an educational rangel from [employer]. Review of Systems Const Denies chills, Reports fatigue, Denies fever(s) and Denies headache(s) ENT Denies dysphagia, Denies dizziness, Denies otalgia, Denies headache(s), Reports neck pain (mostly when she is lying down - see HPI), Denies odynophagia and Denies sore throat Card Denies chest pain, Denies palpitations and Reports dyspnea on exertion (mild) Resp Denies chest congestion, Denies cough and Reports dyspnea on exertion (mild) GI Denies abdominal pain, Denies constipation, Denies dysphagia, Denies heartburn, Denies diarrhea, Denies nausea, Denies odynophagia and Denies vomiting Denies difficulty voiding, Denies nocturia, Denies dysuria and Denies urinary urgency Musc Reports abnormal gait (unsteady gait), Reports back pain (on and off, over the lower back) and Reports neck pain (mostly when she is lying down - see HPI) Skin/Breast Denies rash Neuro Reports abnormal gait (unsteady gait), Denies dizziness and Denies headache(s) Psych Reports anxiety (see HPI) and Reports depression (is on Rx) Endo Reports fatigue and Denies palpitations Physical exam (Primary Care) Vital Signs: Last Vital Signs Pulse 62 02/09/25 15:27 Resp 18 02/09/25 15:27 BP 82/60 L 02/09/25 15:27 Pulse Ox 94 02/09/25 15:27 Oxygen Delivery Method Room Air 02/09/25 15:27 BMI result Body Mass Index 21.1 Tobacco/Smoking Status: Tobacco use Status Tobacco use date assessed 02/09/25 02/09/25 15:36 Patient Tobacco Use Status Never used Tobacco 02/09/25 15:30 e-Cigarette/Vaping Use Never Used 02/09/25 15:30 Thrive Assessment: Date of Thrive Assessment Date Thrive assessed 02/09/25 02/09/25 15:36 Currently or been in a relationship where the following occur: No concerns reported Const General: no acute distress and alert HENMT Ears: TM's normal bilaterally and EAC's normal Throat: Yes posterior oropharynx normal and Yes tonsils normal (no TP congestion noted) Neck Neck: Yes supple and No lymphadenopathy Thyroid: Thyroid normal Resp Auscultation: clear to auscultation bilaterally, no rales and no wheezes Cardio Rate: regular rate Rhythm: regular rhythm Heart sounds: no murmurs GI Palpation (GI): Soft to palpation and nontender Auscultation: normal bowel sounds General: Yes no CVA tenderness Back/Spine/Pelvis Back: no CVA tenderness Thoracic/Lumbar Spine: lumbar spinal tenderness Skin Rashes: no rashes Extrem General: Yes no clubbing, cyanosis or edema Results Reviewed Results Reviewed: Laboratory Tests 04/26/24 02/01/25 02/01/25 11:47 13:33 13:43 WBC 5.5 4.9 Hgb 14.6 14.8 Hct 44.7 45.8 Plt Count 221 293 D Sodium 143 Potassium 4.6 Creatinine 1.03 Estimated GFR 51 Fasting Glucose 89 Calcium 9.6 AST 28 ALT 19 Triglycerides 76 Cholesterol 275 H LDL Cholesterol, Calc 181 H HDL Cholesterol 79 Vitamin B12 820 25-OH Vitamin D Total 53.3 TSH 2.53 Ur Specific [place] 1.015 Urine Protein Negative Urine Glucose (UA) Negative Urine Blood Negative Urine Nitrite Negative Ur Leukocyte Esterase Trace H Coding Level of Care Code Est Pt Level 4 (87019) Diagnoses Benign essential hypertension I10 Pure hypercholesterolemia E78.00 Hx of prosthetic aortic valve replacement Z95.2 Exertional dyspnea R06.09 Pancreatic cyst K86.2 Age-related osteoporosis without current pathological fracture M81.0 Osteoporosis type: age-related Presence of current pathological fracture: without current pathological fracture Vitamin D deficiency E55.9 Unsteady gait R26.81 Keratotic lesion L57.0 Anxiety F41.9 Depression, unspecified depression type F32.9 Depression Type: unspecified Assessment & Plan Assessment & Plan (1) Benign essential hypertension: Code(s): I10 - Essential (primary) hypertension Category: Medical Plan: Reinforced low sodium diet - goal is systolic BP of at least 130 mm to 140 mm or less Continue Lisinopril 10 mg BID (2) Pure hypercholesterolemia: Code(s): E78.00 - Pure hypercholesterolemia, unspecified Category: Medical Plan: Results of her labs done last week reviewed and discussed with patient - she is advised that her cholesterol is currently elevated, with a total cholesterol of 275 mg/dl and an LDL cholesterol of 181 mg/dl, both which have increased from 268 mg/dl and 178 mg/dl respectively last year Reinforced low cholesterol diet - she again attributes her poor eating habits lately to caregiver stress as she is now taking care of her daughter, who has cognitive issues due to a recent anoxic brain injury and is also now on dialysis for renal failure Patient states that she has never had to take any medication to help lower her cholesterol in the past A copy of low cholesterol diet sheet/info was provided to the patient in the office today so she can try to work on her diet and eat healthier Will have her recheck her labs and fasting lipids in 3 months for follow up (3) Hx of prosthetic aortic valve replacement: Code(s): Z95.2 - Presence of prosthetic heart valve Category: Surgical Plan: Continue Coumadin 2.5 mg 1 to 2 tablets daily as instructed, with dose adjustment per PT/INR results Patient goes to the Coumadin clinic regularly for monitoring of her INR (4) Exertional dyspnea: Code(s): R06.09 - Other forms of dyspnea Category: Medical Plan: Her previous echocardiogram done in 2020 revealed (+) mild MR Repeat echocardiogram done back in June 2024 revealed normal LV ejection fraction at 55-60% with impaired relaxation filling pattern Her bioprosthetic valve appears to be functioning normally with mildly increased gradient of 16 mm Hg. There is moderate mitral annular calcification with normal Dopplers; normal RV systolic pressure and no gross pericardial effusion is seen (5) Pancreatic cyst: Comment: MRCP done at [facility] on 05/22/2018 showed (+) multiple chronic pancreatic and peripancreatic cysts that do not appear to be malignant and recommended repeat imaging in a year for follow up Patient reportedly had a follow up CT done in February 2019 which reportedly came back with benign results Code(s): K86.2 - Cyst of pancreas Category: Medical Plan: Follow up with GI as scheduled for continuing surveillance (6) Osteoporosis: Code(s): M81.0 - Age-related osteoporosis without current pathological fracture Category: Medical Qualifiers: Osteoporosis type: age-related Presence of current pathological fracture: without current pathological fracture Qualified Code(s): M81.0 - Age-related osteoporosis without current pathological fracture Plan: Her last BMD done at [facility] on 01/24/2021 revealed (+) stable lumbar spine and bilateral hip osteoporosis Reinforced fall precautions, especially with her unsteady gait She is currently not on any Vitamin D or Calcium supplements Repeat BMD was ordered last month and this is still awaiting scheduling (7) Vitamin D deficiency: Code(s): E55.9 - Vitamin D deficiency, unspecified Category: Medical Plan: Corrected - her Vitamin D level came out normal on her recent labs (8) Unsteady gait: Code(s): R26.81 - Unsteadiness on feet Category: Medical Plan: Improved with physical therapy and will refer again to PT as needed (9) Keratotic lesion: Code(s): L57.0 - Actinic keratosis Category: Medical Plan: Have advised patient last month that her skin lesions are most likely actinic keratosis We referred her to Dr. Anitha Fry in [place] and patient states that she was seen by Lisandra Navarro recently and she is now being treated for precancerous skin damage (10) Anxiety: Code(s): F41.9 - Anxiety disorder, unspecified Category: Medical Plan: Continue Bupropion XL 300 mg QD and Clonazepam 0.5 mg BID PRN - states that she currently appears to have ran out of her Clonazepam Rx a couple of weeks earlier than she should and she suspects that her daughter may have taken them (see HPI) as there is no one else in the house other than the 2 of them and is wondering if we can provide her with a different variation of her current Rx to cover her for the next 2 weeks until she can get her regular prescription refilled again Advised patient that as she has been getting her Rx from her psychiatrist regularly, it would not be appropriate for me to provide her with additional Rx for Clonazepam and that it is her psychiatrist that she needs to discuss her prescription issues with and if her psychiatrist agrees, she can give her a short-term prescription to cover her for 2 weeks until her prescription is eligible to be refilled again Follow up with psychiatry as scheduled (11) Depression: Code(s): F32.9 - Major depressive disorder, single episode, unspecified Category: Medical Qualifiers: Depression Type: unspecified Qualified Code(s): F32.9 - Major depressive disorder, single episode, unspecified Plan: Continue Bupropion XL 300 mg Q AM Follow up with psychiatry (Dr. Rina Swenson) as scheduled Plan Follow up in 3 months Orders: Orders Comprehensive [place]. Panel Fast 3 Months E78.00 - Pure hypercholesterolemia, unspecified UA CC w/rflx Micro + Cult 3 Months R30.0 - Dysuria Complete Blood Count Auto Diff 3 Months D64.9 - Anemia, unspecified TSH reflex Free T4 3 Months E78.00 - Pure hypercholesterolemia, unspecified Lipid Panel 3 Months E78.00 - Pure hypercholesterolemia, unspecified Referrals Cardiology Referral I34.0 - Nonrheumatic mitral (valve) insufficiency, Z79.01 - supervisor intermediates (current) use of anticoagulants, Z95.2 - Presence of prosthetic heart valve
--- OUTSIDE RECORDS SUMMARY | 2025-02-09 20:07 | XMS_ITS | Encounter Summary ---
Author Organization [facility] Address [address] [address] Phone Care Team Providers Care Clerical Manager Name Role Phone Artie Meehan MD Unavailable Rina Swenson MD Unavailable Laura Mock MD, DMD Primary Car e Provider Luara Mock MD, DMD Unavailable Laura Mock MD, DMD Unavailable Jakob Bob MD Unavailable Jose Cruz MD Unavailable [phone] Laura Mock MD, DMD Unavailable Pcp, Unknown Primary Care Provider UnavailLaura Ascencio MD, DMD Primary Car e Provider Pcp, Unknown Primary Care Provider UnavailNicole Arguello MD Primary Care Provide r Laura Mock MD, DMD Primary Car e Provider Encounter Details Date Type Department Care Team (Late st Contact Info) Description 02/18/2022 Anti-coag visit [facility] [address] [place] [id number] Rony Amaro, PharmD [address] [facility] [address] [place] [address] [email or web address] Social History Tobacco Use Types Packs/Day [...] Upcoming Encounters Date Type Department Care Team ([facility] st Contact Info) Description 03/08/2025 9:30 AM EST Pre-Admission Testing [address] [place] [address] Irineo Ruff MD [address] [place] [phone] [email or web address] 03/15/2025 Procedure Pass [facility] Endoscopy Department [address] [place] [phone] 03/15/2025 7:30 AM EST Hospital Encounter [facility] Endoscopy Department [address] [place] [address] Irineo Ruff MD [address] [place] [phone] [email or web address] 03/15/2025 7:30 AM EST - 03/15/2025 8:15 AM EST Surgery [facility] Endoscopy Department [address] [place] [phone] Irineo Ruff MD [address] [place] [address] [place] [address] [email or web address] Scheduled Procedures Name [...] documented as of this encounter Care Teams Clerical Manager Relationship Specialty Start Date End Date Laura Mock MD, DMD [address] [address] [email or web address] PCP - General Internal Medicine 06/04/21 11/11/23 Pcp, Unknown PCP - General 11/12/23 11/16/23 Laura Mock MD, DMD [address] [address] [email or web address] PCP - General Internal Medicine 11/17/23 12/28/23 Pcp, Unknown PCP - General 02/28/24 03/04/24 Nicole Newell MD [address] [place] [id number] PCP - General 03/05/24 05/17/24 Laura Mock MD, DMD [address] [address] [email or web address] PCP - General Internal Medicine 05/18/24 Artie Meehan MD [address] [place] [address] [place] [address] Internal Medicine 10/26/17 04/23/22 Rina Swenson MD [address] [place] [address] [place] [address] Psychiatry 07/09/17 Laura Mock MD, DMD [address] [address] [email or web address] Attributed Provider 09/01/21 07/03/23 Laura Mock MD, DMD [address] [address] [email or web address] Insurance Assigned Provider 05/31/23 03/01/24 Jakob Bob MD [address] [place] [address] [place] [phone] [email or web address] Cardiology 08/22/23 Jose Cruz MD [address] [place] [address] Cardiology 08/22/23 Laura Mock MD, DMD [address] [address] [email or web address] [employer] Attributed Provider 09/01/21 07/03/23 [facility] [phone]. Consulting Provider 08/22/23 [facility] Connect 12/24/23 03/11/24 Cyril Morales [address] [place] [address] Nurse Practitioner 02/27/24 documented as of this encounter Additional Source Comments The information contained in this document represents components of the legal health record. It is not the complete legal health record.[facility]
--- OUTSIDE RECORDS SUMMARY | 2025-02-09 20:07 | XMS_ITS | Encounter Summary ---
Author Organization [facility] Address [address] [employer] [facility] [address] [place] [address] Phone Care Team Providers Care Bead Builder Name Role Phone Artie Meehan MD Primary Care Provider [phone] Artie Meehan MD Unavailable Rina Swenson MD [...] 12/09/2017 [address]ia [address] of [address] Moyer ptKayleen is Anxious Encounter Details Date Type Department Care Team (Late st Contact Info) Description 12/09/2017 Telephone [facility] [address] [facility] [address] [place] [address] [email or web address] Question regarding Symtoms (Former pt. of [...] Description 03/08/2025 9:30 AM EST Pre-Admission Testing [facility] [address] [facility] 2nd [place] [address] Irineo Ruff MD [address] [place] [phone] [email or web address] 03/15/2025 Procedure Pass [facility] Endoscopy Department [address] [place] [phone] 03/15/2025 7:30 AM EST Hospital Encounter [facility] Endoscopy Department [address] [place] [address] Irineo Ruff MD [address] [place] [phone] [email or web address] 03/15/2025 7:30 AM EST - 03/15/2025 8:15 AM EST Surgery [facility] Endoscopy Department [address] [place] [address] Irineo Ruff MD [address] [place] [address] [place] [address] [email or web address] Scheduled Procedures [...] documented as of this encounter Care Teams Bead Builder Relationship Specialty Start Date End Date Artie Meehan MD [address] [place] [address] [address] PCP - General Internal Medicine 10/26/17 06/03/21 Laura Mock MD, DMD [address] [address] [email or web address] PCP - General Internal Medicine 06/04/21 11/11/23 Pcp, Unknown PCP - General 11/12/23 11/16/23 Laura Mock MD, DMD 1 [facility] [address] [place] [phone] [email or web address] PCP - General Internal Medicine 11/17/23 12/28/23 Pcp, Unknown PCP - General 02/28/24 03/04/24 [place] [id number] [place] [address] PCP - General 03/05/24 05/17/24 Laura Mock MD, DMD [address] [address] [email or web address] PCP - General Internal Medicine 05/18/24 Artie Meehan MD [address] [place] [address] [place] [address] Internal Medicine 10/26/17 04/23/22 Rina Swenson MD [address] [place] [address] Dr [address] [place] [address] Psychiatry 07/09/17 Laura Mock MD, DMD [address] [address] [email or web address] Attributed Provider 09/01/21 07/03/23 Laura Mock MD, DMD [address] [address] [email or web address] Insurance Assigned Provider 05/31/23 03/01/24 Jakob Bob MD [address] [place] [address] [place] [phone] [email or web address] Cardiology 08/22/23 Jose Cruz MD [address] [place] [address] Cardiology 08/22/23 Laura Mock MD, DMD 1 [facility] [address] [place] [address] [email or web address] Attributed Provider 09/01/21 07/03/23 [facility] [phone]. Consulting Provider 08/22/23 CAROL[facility] Connect 12/24/23 03/11/24 Cyril Morales [address] [place] [address] Nurse Practitioner 02/27/24 documented as of this encounter Additional Source Comments The information contained in this document represents components of the legal health record. It is not the complete legal health record.[facility]
--- OUTSIDE RECORDS SUMMARY | 2025-02-09 20:07 | XMS_ITS | Encounter Summary ---
Author Organization [facility] Address [address] [facility] [address] [place] [address] Phone Care Team Providers Care Solar Panel Technician Name Role Phone Artie Meehan MD Primary Care Provider [phone] Artie Meehan MD Unavailable Rina Swenson MD Unavailable Laura Mock MD, DMD Primary Car e Provider Laura Mock MD, DMD Unavailable Laura Mock MD, DMD Unavailable Jakob Bob MD Unavailable [phone] Jose Cruz MD Unavailable Laura Mock MD, DMD Unavailable Pcp, Unknown Primary Care Provider UnavailaLura Ascencio MD, DMD Primary Car e Provider Pcp, Unknown Primary Care Provider UnavailNicole Arguello MD Primary Care Provide r Laura Mock MD, DMD Primary Car e Provider Encounter Details Date Type Department Care Team (Late st Contact Info) Description 11/15/2020 Transcribe Orders Virtual Department [address] [place] [address] Artie Meehan MD [address] [place] [address] [place] [address] Asymptomatic menopausal state (Primary Dx); Age-related osteoporosis [...] Description 03/08/2025 9:30 AM EST [facility] [address] [place] [address] Irineo Ruff MD [address] [place] [address] [email or web address] 03/15/2025 Procedure Pass [facility] Endoscopy Department [address] [place] [address] 03/15/2025 7:30 AM EST Hospital Encounter [facility] Endoscopy Department [address] [place] [address] Irineo Ruff MD [address] [place] [address] [email or web address] 03/15/2025 7:30 AM EST - 03/15/2025 8:15 AM EST Surgery [facility] Endoscopy Department [address] [place] [address] Irineo Ruff MD [address] [place] [address] [phone] (work) [email or web address] [email or web address] Scheduled Procedures Name Priority Associated Diagnoses Date/Ti vt COLONOSCOPY Abnormal colonoscopy 03/15/2025 7:30 AM EST [...] bone mineral density was calculated at 0.409 gm/gb4ayen a T- score of -4 falling within [...] documented as of this encounter Care Teams Solar Panel Technician Relationship Specialty Start Date End Date Artie Meehan MD [address] [place] [address] [place] [address] PCP - General Internal Medicine 10/26/17 06/03/21 Laura Mock MD, DMD 1 [facility] [address] [place] [address] [email or web address] du PCP - General Internal Medicine 06/04/21 11/11/23 Pcp, Unknown PCP - General 11/12/23 11/16/23 Laura Mock MD, DMD [address] [address] [email or web address] du PCP - General Internal Medicine 11/17/23 12/28/23 Pcp, Unknown PCP - General 02/28/24 03/04/24 [place] [address] [address] PCP - General 03/05/24 05/17/24 Laura Mock MD, DMD [address] [address] [email or web address] du PCP - General Internal Medicine 05/18/24 Artie Meehan MD [address] [place] [address] [place] [address] Internal Medicine 10/26/17 04/23/22 Rina Swenson MD [address] [place] [address] [place] [address] Psychiatry 07/09/17 Laura Mock MD, DMD [address] [address] [email or web address] du Partners Attributed Provider 09/01/21 07/03/23 EmiliLaura ruiz MD, DMD 1 [facility] [address] [place] [address] [email or web address] du Insurance Assigned Provider 05/31/23 03/01/24 Jakob Bob MD [address] [facility] [address] [place] [address] [email or web address] Cardiology 08/22/23 Jose Cruz MD [address] [place] [address] [address] [place] [address] [email or web address] Cardiology 08/22/23 Laura Mock MD, DMD [address] [address] [email or web address] Partners Attributed Provider 09/01/21 07/03/23 [place] [facility] [phone]. Consulting Provider 08/22/23 [facility] Connect 12/24/23 03/11/24 Cyril Morales [address] [place] [address] Nurse Practitioner 02/27/24 documented as of this encounter Additional Source Comments The information contained in this document represents components of the legal health record. It is not the complete legal health record.[facility]
--- OUTSIDE RECORDS SUMMARY | 2025-02-09 20:08 | XMS_ITS | Encounter Summary ---
Author Organization [facility] Address [address] [employer] [facility] [address] [place] [address] Phone Care Team Providers Care Golf Ball Trimmer Name Role Phone Rina Swenson MD Unavailable [...] st Contact Info) Description 07/18/2022 Anti-coag visit [facility] [address] [place] [address] [phone] Kenyatta Gamez, PharmD [email or web address] Social History Tobacco Use [...] Description 03/08/2025 9:30 AM EST Pre-Admission Testing [address] [place] [address] Irineo Ruff MD [address] [place] [address] [email or web address] 03/15/2025 Procedure Pass [facility] Endoscopy Department [address] [place] [address] 03/15/2025 7:30 AM EST Hospital Encounter [facility] Endoscopy Department [address] [place] [address] Irineo Ruff MD [address] [place] [address] [email or web address] 03/15/2025 7:30 AM EST - 03/15/2025 8:15 AM EST Surgery [facility] Endoscopy Department [address] [place] [address] Irineo Ruff MD [address] [place] [address], [place] [address] [email or web address] COLONOSCOPY Scheduled Procedures [...] documented as of this encounter Care Teams Golf Ball Trimmer Relationship Specialty Start Date End Date Laura Mock MD, DMD [address] [address] [email or web address] PCP - General Internal Medicine 06/04/21 11/11/23 Pcp, Unknown PCP - General 11/12/23 11/16/23 Laura Mock MD, DMD [address] [address] [email or web address] du PCP - General Internal Medicine 11/17/23 12/28/23 Pcp, Unknown PCP - General 02/28/24 03/04/24 Nicole Newell MD [address] [place] [address] PCP - General 03/05/24 05/17/24 Laura Mock MD, DMD [address] [address] [email or web address] du PCP - General Internal Medicine 05/18/24 Rina Swenson MD Psychiatry 07/09/17 Laura Mock MD, DMD [address] [address] [email or web address] Partners Attributed Provider 09/01/21 07/03/23 Laura Mock MD, DMD [address] [address] [email or web address] du Insurance Assigned Provider 05/31/23 03/01/24 Jakob Bob MD [address] [place] [address] [email or web address] Cardiology 08/22/23 Jose Cruz MD [address] [place] [address] Cardiology 08/22/23 Laura Mock MD, DMD [address] [address] [email or web address] Attributed Provider 09/01/21 07/03/23 [facility] [phone]. Consulting Provider 08/22/23 [facility] Connect 12/24/23 03/11/24 Cyril Morales [address] [place] [address] Nurse Practitioner 02/27/24 documented as of this encounter Additional Source Comments The information contained in this document represents components of the legal health record. It is not the complete legal health record.[facility]
--- OUTSIDE RECORDS SUMMARY | 2025-02-09 20:08 | XMS_ITS | Encounter Summary ---
Author Organization [facility] Address [address] [place] [address] Phone Care Team Providers Care Director Inbound Sales Name Role Phone Artie Meehan MD Unavailable Rina Swenson MD Unavailable [phone] Laura Mock MD, DMD Primary Car e Provider Laura Mock MD, DMD Unavailable Laura Mock MD, DMD Unavailable Jakob Bob MD Unavailable [phone] Jose Cruz MD Unavailable Laura Mock MD, [...] Mengyan, PharmD [address] [place] [address] [email or web address] Social History Tobacco Use Types [...] Upcoming Encounters Date Type Department Care Team ([facility] st Contact Info) Description 03/08/2025 9:30 AM EST Pre-Admission Testing [address] [address] Irineo Ruff MD [address] [place] [address] [place] [address] [email or web address] 03/15/2025 Procedure Pass [facility] Endoscopy Department [address] [place] [address] 03/15/2025 7:30 AM EST Hospital Encounter [facility] Endoscopy Department [address] [place] [address] Irineo Ruff MD [address] [place] [address] [email or web address] 03/15/2025 7:30 AM EST - 03/15/2025 8:15 AM EST Surgery [facility] Endoscopy Department [address] [place] [address] Irineo Ruff MD [address] [place] [address] [email or web address] COLONOSCOPY Scheduled Procedures [...] as of this encounter Care Teams Director Inbound Sales Relationship Specialty Start Date End Date Laura Mock MD, DMD [address] [address] [email or web address] PCP - General Internal Medicine 06/04/21 11/11/23 Pcp, Unknown PCP - General 11/12/23 11/16/23 Laura Mock MD, DMD [address] [address] [email or web address] PCP - General Internal Medicine 11/17/23 12/28/23 Pcp, Unknown PCP - General 02/28/24 03/04/24 [place] [address] [address] PCP - General 03/05/24 05/17/24 Laura Mock MD, DMD [address] [address] [email or web address] du PCP - General Internal Medicine 05/18/24 Artie Meehan MD [address] [place] [address] [place] [address] Internal Medicine 10/26/17 04/23/22 Rina Swenson MD [address] [place] [address] [place] [address] Psychiatry 07/09/17 Laura Mock MD, DMD [address] [address] [email or web address] du Partners Attributed Provider 09/01/21 07/03/23 Laura Mock MD, DMD [address] [address] [email or web address] du Insurance Assigned Provider 05/31/23 03/01/24 Jakob Bob MD [address] [place] [address] [place] [address] [email or web address] Cardiology 08/22/23 Jose Cruz MD [address] [place] [address] Cardiology 08/22/23 Laura Mock MD, DMD [address] [address] [email or web address] du Partners Attributed Provider 09/01/21 07/03/23 [employer] [facility] [phone]. Consulting Provider 08/22/23 [facility] Connect 12/24/23 03/11/24 Cyril Morales [address] [place] [address] Nurse Practitioner 02/27/24 documented as of this encounter Additional Source Comments The information contained in this document represents components of the legal health record. It is not the complete legal health record.[facility]
--- OUTSIDE RECORDS SUMMARY | 2025-02-09 20:08 | XMS_ITS | Encounter Summary ---
Author Organization [facility] Address [address] [place] [address] Phone Care Team Providers Care Shelter Advocate Name Role Phone Artie Meehan MD Unavailable Rina Swenson MD Unavailable Laura Mock MD, DMD Primary Car e Provider Laura Mock MD, DMD Unavailable Laura Mock MD, DMD Unavailable Jakob Bob MD Unavailable [phone] Jose Cruz MD Unavailable [phone] Laura Mock MD, DMD Unavailable Pcp, Unknown Primary Care Provider UnavailLaura Ascencio MD, DMD Primary Car e Provider Pcp, Unknown Primary Care Provider UnavailNicole Arguello MD Primary Care Provide r Laura Mock MD, DMD Primary Car e Provider Encounter Details Date Type Department Care Team (Late st Contact Info) Description 04/05/2022 Anti-coag visit [facility] [address] [place] [address] Melvin Stewart, [facility] [address] [place] [address] [email or web address] Social History Tobacco Use Types [...] 03/08/2025 9:30 AM EST Pre-Admission Testing [address] [address] Irineo Ruff MD [address] [place] [address] [email or web address] 03/15/2025 Procedure Pass [facility] Endoscopy Department [address] [place] [address] 03/15/2025 7:30 AM EST Hospital Encounter [facility] Endoscopy Department [address] [place] [address] Irineo Ruff MD [address] [place] [address] [email or web address] 03/15/2025 7:30 AM EST - 03/15/2025 8:15 AM EST Surgery [facility] Endoscopy Department [address] [place] [address] Irineo Ruff MD [address] [place] [address] [email or web address] COLONOSCOPY Scheduled Procedures Name Priority Associated Diagnoses [...] documented as of this encounter Care Teams Shelter Advocate Relationship Specialty Start Date End Date Laura Mock MD, DMD [address] [address] [email or web address] PCP - General Internal Medicine 06/04/21 11/11/23 Pcp, Unknown PCP - General 11/12/23 11/16/23 Laura Mock MD, DMD [address] [address] [email or web address] du PCP - General Internal Medicine 11/17/23 12/28/23 Pcp, Unknown PCP - General 02/28/24 03/04/24 [place] [address] [address] PCP - General 03/05/24 05/17/24 Laura Mock MD, DMD [address] [address] [email or web address] du PCP - General Internal Medicine 05/18/24 Artie Meehan MD [address] [place] [address] [place] [address] Internal Medicine 10/26/17 04/23/22 Rina Swenson MD [address] [place] [address] Dr [place] [facility] [address] Psychiatry 07/09/17 Laura Mock MD, DMD [address] [address] [email or web address] Partners Attributed Provider 09/01/21 07/03/23 Laura Mock MD, DMD [address] [address] [email or web address] du Insurance Assigned Provider 05/31/23 03/01/24 Jakob Bob MD [address] [place] [address] [place] [address] [email or web address] Cardiology 08/22/23 Jose Cruz MD [address] [place] [address] Cardiology 08/22/23 Laura Mock MD, DMD [address] [address] [email or web address] du Partners Attributed Provider 09/01/21 07/03/23 [facility] [phone]. Consulting Provider 08/22/23 [facility] Connect 12/24/23 03/11/24 Cyril Morales [address] [place] [address] Nurse Practitioner 02/27/24 documented as of this encounter Additional Source Comments The information contained in this document represents components of the legal health record. It is not the complete legal health record.[facility]
--- OUTSIDE RECORDS SUMMARY | 2025-02-09 20:08 | XMS_ITS | Encounter Summary ---
Author Organization [facility] Address [address] [facility] [address] [place] [address] Phone Care Team Providers Care Warehouse Incentive Selector Name Role Phone Rina Swenson MD [...] st Contact Info) Description 07/26/2022 Anti-coag visit [facility] [address] [place] [address] [phone] Melvin Stewart, [facility] [address] [place] [address] [email or web address] Social History Tobacco Use Types Packs/Day [...] Description 03/08/2025 9:30 AM EST [facility] [place] [address] [facility] [address]nd [place] [address] Irineo Ruff MD [address] [place] [address] [place] [address] [email or web address] 03/15/2025 Procedure Pass [facility] Endoscopy Department [address] [place] [address] 03/15/2025 7:30 AM EST Hospital Encounter [facility] Endoscopy Department [address] [place] [address] Irineo Ruff MD [address] [place] [address] [place] [address] [email or web address] 03/15/2025 7:30 AM EST - 03/15/2025 8:15 AM EST Surgery [facility] Endoscopy Department [address] [place] [address] Irineo Ruff MD [address] [place] [address] [place] [address] [email or web address] COLONOSCOPY Scheduled Procedures Name Priority Associated [...] documented as of this encounter Care Teams Warehouse Incentive Selector Relationship Specialty Start Date End Date Laura Mock MD, DMD [address] [address] [email or web address] du PCP - General Internal Medicine 06/04/21 11/11/23 Pcp, Unknown PCP - General 11/12/23 11/16/23 Laura Mock MD, DMD [address] [address] [email or web address] PCP - General Internal Medicine 11/17/23 12/28/23 Pcp, Unknown PCP - General 02/28/24 03/04/24 [place] [address] [address] PCP - General 03/05/24 05/17/24 Laura Mock MD, DMD [address] [address] [email or web address] du PCP - General Internal Medicine 05/18/24 Rina Swenson MD Psychiatry 07/09/17 Laura Mock MD, DMD [address] [address] [email or web address] du Partners Attributed Provider 09/01/21 07/03/23 Laura Mock MD, DMD [address] [address] [email or web address] du Insurance Assigned Provider 05/31/23 03/01/24 Jakob Bob MD [address] [place] [address] [email or web address] Cardiology 08/22/23 Jose Cruz MD [address] [place] [address] Cardiology 08/22/23 Laura Mock MD, DMD [address] [address] [email or web address] Partners Attributed Provider 09/01/21 07/03/23 [facility] [phone]. Consulting Provider 08/22/23 [facility] Connect 12/24/23 03/11/24 Cyril Morales [address] [place] [phone] Nurse Practitioner 02/27/24 documented as of this encounter Additional Source Comments The information contained in this document represents components of the legal health record. It is not the complete legal health record.[facility]
--- OUTSIDE RECORDS SUMMARY | 2025-02-09 20:08 | XMS_ITS | Encounter Summary ---
Author Organization [facility] Address [address] [place] [address] Phone Care Team Providers Care Peoplesoft Name Role Phone Artie Meehan MD Unavailable Rina Swenson MD Unavailable Laura Mock MD, DMD Primary Car e Provider Laura Mock MD, DMD Unavailable Laura Mock MD, DMD Unavailable Jakob Bob MD Unavailable [phone] Jose Cruz MD Unavailable Laura Mock MD, DMD Unavailable Pcp, Unknown Primary Care Provider UnavailLaura Ascencio MD, DMD Primary Car e Provider Pcp, Unknown Primary Care Provider UnavailNicole Arguello MD Primary Care Provide r Laura Mock MD, DMD Primary Car e Provider Encounter Details Date Type Department Care Team (Late st Contact Info) Description 10/19/2021 Anti-coag visit [facility] [address] [place] [address] Melvin Stewart, [facility] [address] [place] [address] [email or web address] Social History Tobacco Use [...] 03/08/2025 9:30 AM EST Pre-Admission Testing [address] [address] Irineo Ruff MD [address] [place] [address] [email or web address] 03/15/2025 Procedure Pass [facility] Endoscopy Department [address] [place] [address] 03/15/2025 7:30 AM EST Hospital Encounter [facility] Endoscopy Department [address] [place] [address] Irineo Ruff MD [address] [place] [address] [email or web address] 03/15/2025 7:30 AM EST - 03/15/2025 8:15 AM EST Surgery [facility] Endoscopy Department [address] [place] [address] Irineo Ruff MD [address] [place] [address] [email or web address] COLONOSCOPY Scheduled Procedures Name Priority Associated Diagnoses [...] documented as of this encounter Care Teams Peoplesoft Relationship Specialty Start Date End Date Laura Mock MD, DMD [address] [address] [email or web address] du PCP - General Internal Medicine 06/04/21 11/11/23 Pcp, Unknown PCP - General 11/12/23 11/16/23 Laura Mock MD, DMD [address] [address] [email or web address] du PCP - General Internal Medicine 11/17/23 12/28/23 Pcp, Unknown PCP - General 02/28/24 03/04/24 [place] [address] [address] PCP - General 03/05/24 05/17/24 Laura Mock MD, DMD [address] [address] [email or web address] du PCP - General Internal Medicine 05/18/24 Artie Meehan MD [address] [place] [address] [place] [address] Internal Medicine 10/26/17 04/23/22 Rina Swenson MD [address] [place] [address] [place] [address] Psychiatry 07/09/17 Laura Mock MD, DMD [address] [address] [email or web address] Attributed Provider 09/01/21 07/03/23 Laura Mock MD, DMD [address] [address] [email or web address] du Insurance Assigned Provider 05/31/23 03/01/24 Jakob Bob MD [address] [place] [address] [email or web address] Cardiology 08/22/23 Jose Cruz MD [address] [place] [address] [email or web address] Cardiology 08/22/23 Laura Mock MD, DMD [address] [address] [email or web address] Attributed Provider 09/01/21 07/03/23 [place] [facility] [phone]. Consulting Provider 08/22/23 [facility] Connect 12/24/23 03/11/24 Cyril Morales [address] [place] [address] Nurse Practitioner 02/27/24 documented as of this encounter Additional Source Comments The information contained in this document represents components of the legal health record. It is not the complete legal health record.[facility]
--- OUTSIDE RECORDS SUMMARY | 2025-02-09 20:08 | XMS_ITS | Encounter Summary ---
Author Organization [facility] Address [address] [employer] [address] [place] [address] Phone Care Team Providers Care Blow Torch Operator Name Role Phone Rina Swenson MD Unavailable Laura Mock MD, DMD Primary Car e Provider Laura Mock MD, DMD Unavailable Jakob Bob MD Unavailable Jose Cruz MD Unavailable [phone] Pcp, Unknown Primary Care Provider UnavailLaura Ascencio MD, DMD Primary Car e Provider Pcp, Unknown Primary Care Provider UnavailNicole Arguello MD Primary Care Provide r Laura Mock MD, DMD Primary Car e Provider Encounter Details Date Type Department Care Team (Late st Contact Info) Description 08/26/2023 Procedure Pass [facility] Endoscopy Department [address] [place] [address] Social History Tobacco Use Types Packs/Day [...] 03/08/2025 9:30 AM EST Pre-Admission Testing [address] [place] [address] Irineo Ruff MD [address] [place] [address] [email or web address] 03/15/2025 Procedure Pass [facility] Endoscopy Department [address] [place] [address] 03/15/2025 7:30 AM EST Hospital Encounter [facility] Endoscopy Department [address] [place] [address] Irineo Ruff MD [address] [place] [address] [email or web address] 03/15/2025 7:30 AM EST - 03/15/2025 8:15 AM EST Surgery [facility] Endoscopy Department [address] [place] [address] Irineo Ruff MD [address] [place] [address] [email or web address] COLONOSCOPY Scheduled Procedures [...] documented as of this encounter Care Teams Blow Torch Operator Relationship Specialty Start Date End Date Laura Mock MD, DMD [address] [address] [email or web address] PCP - General Internal Medicine 06/04/21 11/11/23 Pcp, Unknown PCP - General 11/12/23 11/16/23 Laura Mock MD, DMD [address] [address] [email or web address] PCP - General Internal Medicine 11/17/23 12/28/23 Pcp, Unknown PCP - General 02/28/24 03/04/24 Nicole Newell MD [address] [place] [address] PCP - General 03/05/24 05/17/24 Laura Mock MD, DMD [address] [address] [email or web address] du PCP - General Internal Medicine 05/18/24 Rina Swenson MD Psychiatry 07/09/17 Laura Mock MD, DMD 1 [facility] [address] [place] [address] [email or web address] Insurance Assigned Provider 05/31/23 03/01/24 Jakob Bob MD [facility] [place] [address] [email or web address] Cardiology 08/22/23 Jose Cruz MD 22 [facility], [address] [place] [address] [email or web address] Cardiology 08/22/23 [facility] [phone]. Consulting Provider 08/22/23 [facility] Connect 12/24/23 03/11/24 Cyril Morales [address] [place] [phone] Nurse Practitioner 02/27/24 documented as of this encounter Additional Source Comments The information contained in this document represents components of the legal health record. It is not the complete legal health record.[facility]
--- OUTSIDE RECORDS SUMMARY | 2025-02-09 20:08 | XMS_ITS | Encounter Summary ---
Author Organization [facility] Address [facility] [email or web address] [facility] [address] [place] [address] Phone Care Team Providers Care Rail Gang Supervisor Name Role Phone Rina Swenson MD Unavailable Laura Mock MD, DMD Primary Car e Provider Laura Mock MD, DMD Unavailable Laura Mock MD, DMD Unavailable Jakob Bob MD Unavailable [phone] Jose Cruz MD Unavailable Laura Mock MD, DMD Unavailable Pcp, Unknown Primary Care Provider UnavailLaura Ascencio MD, DMD Primary Car e Provider Pcp, Unknown Primary Care Provider UnavailNicole Arguello MD Primary Care Provide r Laura Mock MD, DMD Primary Car e Provider Encounter Details Date Type Department Care Team (Late st Contact Info) Description 10/07/2022 Procedure Pass [facility] [address] [place] [id number] Social History Tobacco Use Types Packs/Day Years [...] Description 03/08/2025 9:30 AM EST Pre-Admission Testing [address] [place] [address] Irineo Ruff MD [address] [place] [address] [email or web address] 03/15/2025 Procedure Pass [facility] Endoscopy Department [address] [place] [address] 03/15/2025 7:30 AM EST Hospital Encounter [facility] Endoscopy Department [address] [place] [address] Irineo Ruff MD [address] [place] [address] [email or web address] 03/15/2025 7:30 AM EST - 03/15/2025 8:15 AM EST Surgery [facility] Endoscopy Department [address] [place] [address] Irineo Ruff MD [address] [place] [address] [email or web address] COLONOSCOPY Scheduled Procedures Name Priority Associated Diagnoses [...] as of this encounter Care Teams Rail Gang Supervisor Relationship Specialty Start Date End Date Laura Mock MD, DMD [address] [address] [email or web address] PCP - General Internal Medicine 06/04/21 11/11/23 Pcp, Unknown PCP - General 11/12/23 11/16/23 Laura Mock MD, DMD [address] [address] [email or web address] PCP - General Internal Medicine 11/17/23 12/28/23 Pcp, Unknown PCP - General 02/28/24 03/04/24 Nicole Newell MD [address] [place] [address] PCP - General 03/05/24 05/17/24 Laura Mock MD, DMD [address] [address] [email or web address] du PCP - General Internal Medicine 05/18/24 Rina Swenson MD Psychiatry 07/09/17 Laura Mock MD, DMD [address] [address] [email or web address] Partners Attributed Provider 09/01/21 07/03/23 Laura Mokc MD, DMD [address] [address] [email or web address] du Insurance Assigned Provider 05/31/23 03/01/24 Jakob Bob MD [address] [place] [address] [email or web address] Cardiology 08/22/23 Jose Cruz MD [address] [place] [address] [email or web address] Cardiology 08/22/23 Laura Mock MD, DMD [address] [address] [email or web address] Partners Attributed Provider 09/01/21 07/03/23 [facility] [phone]. Consulting Provider 08/22/23 [facility] Connect 12/24/23 03/11/24 Cyril Morales [address] [place] [phone] Nurse Practitioner 02/27/24 documented as of this encounter Additional Source Comments The information contained in this document represents components of the legal health record. It is not the complete legal health record.[facility]
--- OUTSIDE RECORDS SUMMARY | 2025-02-09 20:08 | XMS_ITS | Encounter Summary ---
Author Organization [facility] Address [address] [employer] [facility] [address] [place] [address] Phone Care Team Providers Care Human Resources Director Name Role Phone Rina Swenson MD [...] st Contact Info) Description 01/21/2023 Anti-coag visit [facility] [address] [place] [address] Purvi Lawler, PharmD [address] [place] [address] [email or web address] Social History Tobacco Use Types Packs/Day Years [...] Description 03/08/2025 9:30 AM EST Pre-Admission Testing [facility] [address] [address] Irineo Ruff MD [address] [place] [address] [place] [address] [email or web address] 03/15/[address] [facility] Endoscopy Department [address] [place] [address] 03/15/2025 7:30 AM EST Hospital Encounter [facility] Endoscopy Department [address] [place] [address] Irineo Ruff MD [address] [place] [address] [place] [address] [email or web address] 03/15/2025 7:30 AM EST - 03/15/2025 8:[address] [facility] Endoscopy Department [address] [place] [address] Irineo Ruff MD [address] [place] [address] [place] [address] [email or web address] COLONOSCOPY Scheduled Procedures Name Priority Associated [...] of this encounter Care Teams Human Resources Director Relationship Specialty Start Date End Date Laura Mock MD, DMD [address] [address] [email or web address] du PCP - General Internal Medicine 06/04/21 11/11/23 Pcp, Unknown PCP - General 11/12/23 11/16/23 Laura Mock MD, DMD [address] [address] [email or web address] PCP - General Internal Medicine 11/17/23 12/28/23 Pcp, Unknown PCP - General 02/28/24 03/04/24 [place] [address] [address] PCP - General 03/05/24 05/17/24 Laura Mock MD, DMD [address] [address] [email or web address] du PCP - General Internal Medicine 05/18/24 Rina Swenson MD Psychiatry 07/09/17 Laura Mock MD, DMD [address] [address] [email or web address] du Partners Attributed Provider 09/01/21 07/03/23 Laura Mock MD, DMD [address] [address] [email or web address] du Insurance Assigned Provider 05/31/23 03/01/24 Jakob Bob MD [address] [place] [address] [email or web address] Cardiology 08/22/23 Jose Cruz MD [address] [place] [address] Cardiology 08/22/23 Laura Mock MD, DMD [address] [address] [email or web address] Partners Attributed Provider 09/01/21 07/03/23 [facility] [phone]. Consulting Provider 08/22/23 [facility] Connect 12/24/23 03/11/24 Cyril Morales [address] [place] [phone] Nurse Practitioner 02/27/24 documented as of this encounter Additional Source Comments The information contained in this document represents components of the legal health record. It is not the complete legal health record.[facility]
--- OUTSIDE RECORDS SUMMARY | 2025-02-09 20:08 | XMS_ITS | Encounter Summary ---
Author Organization [facility] Address [facility] [employer] [address] [address] Phone Care Team Providers Care Envelope Stamping Machine Operator Name Role Phone Rina Swenson MD Unavailable Laura Mock MD, DMD Primary Car e Provider Laura Mock MD, DMD Unavailable Laura Mock MD, DMD Unavailable Jakob Bob MD Unavailable [phone] Jose Cruz MD Unavailable [phone] Laura Mcok MD, DMD Unavailable Pcp, Unknown [...] 03/08/2025 9:30 AM EST Pre-Admission Testing [address] [address] Irineo Ruff MD [address] [place] [address] [email or web address] 03/15/2025 Procedure Pass [facility] Endoscopy Department [address] [place] [address] 03/15/2025 7:30 AM EST Hospital Encounter [facility] Endoscopy Department [address] [place] [address] Irineo Ruff MD [address] [place] [address] [email or web address] 03/15/2025 7:30 AM EST - 03/15/2025 8:15 AM EST Surgery [facility] Endoscopy Department [address] [place] [address] Irineo Ruff MD [address] [place] [address] [email or web address] COLONOSCOPY Scheduled Procedures Name [...] documented as of this encounter Care Teams Envelope Stamping Machine Operator Relationship Specialty Start Date End Date Laura Mock MD, DMD [address] [address] [email or web address] PCP - General Internal Medicine 06/04/21 11/11/23 Pcp, Unknown PCP - General 11/12/23 11/16/23 Laura Mock MD, DMD [address] [address] [email or web address] du PCP - General Internal Medicine 11/17/23 12/28/23 Pcp, Unknown PCP - General 02/28/24 03/04/24 [place] [address] [address] PCP - General 03/05/24 05/17/24 Laura Mock MD, DMD [address] [address] [email or web address] PCP - General Internal Medicine 05/18/24 Rina Swenson MD Psychiatry 07/09/17 Laura Mock MD, DMD [address] [address] [email or web address] Attributed Provider 09/01/21 07/03/23 Laura Mock MD, DMD [address] [address] [email or web address] du Insurance Assigned Provider 05/31/23 03/01/24 Jakob Bob MD [address] [place] [address] [email or web address] Cardiology 08/22/23 Jose Cruz MD [address] [place] [address] Cardiology 08/22/23 Laura Mock MD, DMD [address] [address] [email or web address] du Partners Attributed Provider 09/01/21 07/03/23 [facility] [phone]. Consulting Provider 08/22/23 [facility] Connect 12/24/23 03/11/24 Cyril Morales [address] [place] [phone] Nurse Practitioner 02/27/24 documented as of this encounter Additional Source Comments The information contained in this document represents components of the legal health record. It is not the complete legal health record.[facility]
--- OUTSIDE RECORDS SUMMARY | 2025-02-09 20:08 | XMS_ITS | Encounter Summary ---
Author Organization [facility] Address [address] [employer] [facility] [address] [place] [address] Phone Care Team Providers Care Canvas Shrinker Name Role Phone Artie Meehan MD Primary Care Provider [phone] Artie Meehan MD Unavailable Rina Swenson MD Unavailable [phone] Laura Mock MD, DMD Primary Car e Provider Laura Mock MD, DMD Unavailable Laura Mock MD, DMD Unavailable Jakob Bob MD Unavailable [phone] Jose Cruz MD Unavailable [phone] Laura Mock MD, DMD Unavailable Pcp, Unknown Primary Care Provider UnavailLaura Ascencio MD, DMD Primary Car e Provider Pcp, Unknown Primary Care Provider UnavailNicole Arguello MD Primary Care Provide r Laura Mock MD, DMD Primary Car e Provider Encounter Details Date Type Department Care Team (Late st Contact Info) Description 07/06/2020 Procedure Pass [facility] [address] [place] [address] Social History Tobacco Use Types Packs/Day Years [...] Description 03/08/2025 9:30 AM EST Pre-Admission Testing [address] [address] Irineo Ruff MD [address] [place] [address] [email or web address] 03/15/2025 Procedure Pass [facility] Endoscopy Department [address] [place] [address] 03/15/2025 7:30 AM EST Hospital Encounter [facility] Endoscopy Department [address] [place] [address] Irineo Ruff MD [address] [place] [address] [email or web address] 03/15/2025 7:30 AM EST - 03/15/2025 8:15 AM EST Surgery [facility] Endoscopy Department [address] [place] [address] Irineo Ruff MD [address] [place] [address] [email or web address] COLONOSCOPY Scheduled Procedures Name [...] documented as of this encounter Care Teams Canvas Shrinker Relationship Specialty Start Date End Date Artie Meehan MD [address] [place] [address] Dr D[address] [place] [address] PCP - General Internal Medicine 10/26/17 06/03/21 Laura Mock MD, DMD [address] [address] [email or web address] du PCP - General Internal Medicine 06/04/21 11/11/23 Pcp, Unknown PCP - General 11/12/23 11/16/23 Laura Mock MD, DMD [address] [address] [email or web address] du PCP - General Internal Medicine 11/17/23 12/28/23 Pcp, Unknown PCP - General 02/28/24 03/04/24 [place] [address] [address] PCP - General 03/05/24 05/17/24 Laura Mock MD, DMD [address] [address] [email or web address] du PCP - General Internal Medicine 05/18/24 Artie Meehan MD [address] [place] [address] [place] [address] Internal Medicine 10/26/17 04/23/22 Rina Swenson MD [address] [place] [address] [place] [address] Psychiatry 07/09/17 Laura Mock MD, DMD [address] [address] [email or web address] [employer] Attributed Provider 09/01/21 07/03/23 Laura Mock MD, DMD [address] [address] [email or web address] Insurance Assigned Provider 05/31/23 03/01/24 Jakob Bob MD [address] [place] [address] [email or web address] Cardiology 08/22/23 Jose Cruz MD [address] [place] [address] Cardiology 08/22/23 Laura Mock MD, DMD [address] [address] [email or web address] [employer] Attributed Provider 09/01/21 07/03/23 [place] [facility] [phone]. Consulting Provider 08/22/23 [facility] Connect 12/24/23 03/11/24 Cyril Morales [address] [place] [phone] Nurse Practitioner 02/27/24 documented as of this encounter Additional Source Comments The information contained in this document represents components of the legal health record. It is not the complete legal health record.[facility]
--- OUTSIDE RECORDS SUMMARY | 2025-02-09 20:08 | XMS_ITS | Encounter Summary ---
Author Organization [facility] Address [address] [facility] [address] [place] [address] Phone Care Team Providers Care Er Rn Name Role Phone Artie Meehan MD Primary Care Provider [phone] Artie Meehan MD Unavailable Rina Swenson MD [...] st Contact Info) Description 12/16/2019 Procedure Pass [address] [address] Social History Tobacco Use Types Packs/Day Years [...] Upcoming Encounters Date Type Department Care Team ([facility] st Contact Info) Description 03/08/2025 9:30 AM EST Pre-Admission Testing [address] [address] Irineo Ruff MD [address] [place] [address] [email or web address] 03/15/2025 Procedure Pass [facility] Endoscopy Department [address] [place] [address] 03/15/2025 7:30 AM EST Hospital Encounter [facility] Endoscopy Department [address] [place] [address] Irineo Ruff MD [address] [place] [address] WALI@[facility] 03/15/2025 7:30 AM EST - 03/15/2025 8:15 AM EST Surgery [facility] Endoscopy Department [address] [place] [address] Irineo Ruff MD [address] [place] [address] WALI@[facility] COLONOSCOPY Scheduled [...] documented as of this encounter Care Teams Er Rn Relationship Specialty Start Date End Date Artie Meehan MD [address] [place] [address] [address] [facility] [place] [address] PCP - General Internal Medicine 10/26/17 06/03/21 Laura Mock MD, DMD [address] [address] [email or web address] PCP - General Internal Medicine 06/04/21 11/11/23 Pcp, Unknown PCP - General 11/12/23 11/16/23 Laura Mock MD, DMD [address] [address] [email or web address] du PCP - General Internal Medicine 11/17/23 12/28/23 Pcp, Unknown PCP - General 02/28/24 03/04/24 [place] [address] [place] [address] PCP - General 03/05/24 05/17/24 Laura Mock MD, DMD [address] [address] [email or web address] du PCP - General Internal Medicine 05/18/24 Artie Meehan MD [address] [place] [address] [place] [address] Internal Medicine 10/26/17 04/23/22 Rina Swenson MD [address] [place] [address] [place] [address] Psychiatry 07/09/17 Laura Mock MD, DMD [address] [address] [email or web address] Partners Attributed Provider 09/01/21 07/03/23 Laura Mock MD, DMD [address] [address] [email or web address] Insurance Assigned Provider 05/31/23 03/01/24 Jaokb Bob MD [address] [place] [address] [email or web address] Cardiology 08/22/23 Jose Cruz MD [address] [place] [address] Cardiology 08/22/23 Laura Mock MD, DMD [address] [address] [email or web address] [employer] Attributed Provider 09/01/21 07/03/23 [facility] [phone]. Consulting Provider 08/22/23 [facility] Connect 12/24/23 03/11/24 Cyril Morales [address] [place] [address] Nurse Practitioner 02/27/24 documented as of this encounter Additional Source Comments The information contained in this document represents components of the legal health record. It is not the complete legal health record.[facility]
--- OUTSIDE RECORDS SUMMARY | 2025-02-09 20:08 | XMS_ITS | Encounter Summary ---
Author Organization [facility] Address [facility] [employer] [address] [address] Phone Care Team Providers Care Logistics Assistant Name Role Phone Rina Swenson MD Unavailable [phone] Laura Mock MD, DMD Primary Car e Provider Laura Mock MD, DMD Unavailable Laura Mock MD, DMD Unavailable Jakob Bob MD Unavailable Jose Cruz MD Unavailable [phone] Laura Mock MD, DMD Unavailable Pcp, Unknown [...] Description 03/08/2025 9:30 AM EST Pre-Admission Testing [address] [address] Irineo Ruff MD [address] [place] [address] [email or web address] 03/15/2025 Procedure Pass [facility] Endoscopy Department [address] [place] [address] 03/15/2025 7:30 AM EST Hospital Encounter [facility] Endoscopy Department [address] [place] [address] Irineo Ruff MD [address] [place] [address] [email or web address] 03/15/2025 7:30 AM EST - 03/15/2025 8:15 AM EST Surgery [facility] Endoscopy Department [address] [place] [address] Irineo Ruff MD [address] [place] [address] [email or web address] [facility] COLONOSCOPY Scheduled Procedures [...] documented as of this encounter Care Teams Logistics Assistant Relationship Specialty Start Date End Date Laura Mock MD, DMD [address] [address] [email or web address] PCP - General Internal Medicine 06/04/21 11/11/23 Pcp, Unknown PCP - General 11/12/23 11/16/23 Luara Mock MD, DMD [address] [address] [email or web address] PCP - General Internal Medicine 11/17/23 12/28/23 Pcp, Unknown PCP - General 02/28/24 03/04/24 [place] [address] [address] PCP - General 03/05/24 05/17/24 Laura Mock MD, DMD [address] [address] [email or web address] PCP - General Internal Medicine 05/18/24 Rina Swenson MD Psychiatry 07/09/17 Laura Mock MD, DMD [address] [address] [email or web address] Attributed Provider 09/01/21 07/03/23 Laura Mock MD, DMD [address] [address] [email or web address] Insurance Assigned Provider 05/31/23 03/01/24 Jakob Bob MD [address] [place] [address] [email or web address] Cardiology 08/22/23 Jose Cruz MD [address] [place] [address] Cardiology 08/22/23 Laura Mock MD, DMD [address] [address] [email or web address] [employer] Attributed Provider 09/01/21 07/03/23 [place] [facility] [phone]. Consulting Provider 08/22/23 [facility] Connect 12/24/23 03/11/24 Cyril Morales [address] [place] [phone] Nurse Practitioner 02/27/24 documented as of this encounter Additional Source Comments The information contained in this document represents components of the legal health record. It is not the complete legal health record.[facility]
--- OUTSIDE RECORDS SUMMARY | 2025-02-09 20:08 | XMS_ITS | Encounter Summary ---
Author Organization [facility] Address [facility] [address] [address] Phone Care Team Providers Care [employer] Team Member Name Role Phone Artie Meehan [...] 03/08/2025 9:30 AM EST Pre-Admission Testing [address] 2nd [place] [address] Irineo Ruff MD [address] [place] [address] [email or web address] 03/15/2025 Procedure Pass [facility] Endoscopy Department [address] [place] [address] 03/15/2025 7:30 AM EST Hospital Encounter [facility] Endoscopy Department [address] [place] [address] Irineo Ruff MD [address] [place] [address] [email or web address] 03/15/2025 7:30 AM EST - 03/15/2025 8:15 AM EST Surgery [facility] Endoscopy Department [address] [place] [address] Irineo Ruff MD [address] [place] [address] [email or web address] COLONOSCOPY Scheduled Procedures [...] documented as of this encounter Care Teams [employer] Team Member Relationship Specialty Start Date End Date Laura Mock MD, DMD [address] [address] [email or web address] PCP - General Internal Medicine 06/04/21 11/11/23 Pcp, Unknown PCP - General 11/12/23 11/16/23 Laura Mock MD, DMD [address] [address] [email or web address] PCP - General Internal Medicine 11/17/23 12/28/23 Pcp, Unknown PCP - General 02/28/24 03/04/24 [place] [address] [address] PCP - General 03/05/24 05/17/24 Laura Mock MD, DMD [address] [address] [email or web address] PCP - General Internal Medicine 05/18/24 Artie Meehan MD [address] [place] [address] [place] [address] Internal Medicine 10/26/17 04/23/22 Rina Swenson MD [address] [place] [address] [place] [address] Psychiatry 07/09/17 Laura Mock MD, DMD 1 [facility] [address] [place] [address] [email or web address] Attributed Provider 09/01/21 07/03/23 Laura Mock MD, DMD [address] [address] [email or web address] Insurance Assigned Provider 05/31/23 03/01/24 Jakob Bob MD [address] [place] [address] [email or web address] Cardiology 08/22/23 Jose Cruz MD [address] [place] [address] Cardiology 08/22/23 Laura Mock MD, DMD [address] [address] [email or web address] Attributed Provider 09/01/21 07/03/23 [place] [facility] [phone]. Consulting Provider 08/22/23 [facility] Connect 12/24/23 03/11/24 Cyril Morales [address] [place] [phone] Nurse Practitioner 02/27/24 documented as of this encounter Additional Source Comments The information contained in this document represents components of the legal health record. It is not the complete legal health record.[facility]
--- OUTSIDE RECORDS SUMMARY | 2025-02-09 20:08 | XMS_ITS | Encounter Summary ---
Author Organization [facility] Address [facility] [employer] [address] [address] Phone Care Team Providers Care Imaging Technologist Name Role Phone Rina Swenson MD Unavailable Laura Mock MD, DMD Primary Car e Provider Laura Mock MD, DMD Unavailable Laura Mock MD, DMD Unavailable Jakob Bob MD Unavailable [phone] Jose Cruz MD Unavailable Laura Mock MD, [...] Description 03/08/2025 9:30 AM EST Pre-Admission Testing [address] [address] Irineo Ruff MD [address] [place] [address] [email or web address] 03/15/2025 Procedure Pass [facility] Endoscopy Department [address] [place] [address] 03/15/2025 7:30 AM EST Hospital Encounter [facility] Endoscopy Department [address] [place] [address] Irineo Ruff MD [address] [place] [address] [email or web address] 03/15/2025 7:30 AM EST - 03/15/2025 8:15 AM EST Surgery [facility] Endoscopy Department [address] [place] [address] Irineo Ruff MD [address] [place] [address] [email or web address] COLONOSCOPY Scheduled Procedures Name Priority [...] documented as of this encounter Care Teams Imaging Technologist Relationship Specialty Start Date End Date Laura Mock MD, DMD [address] [address] [email or web address] du PCP - General Internal Medicine 06/04/21 11/11/23 Pcp, Unknown PCP - General 11/12/23 11/16/23 Laura Mock MD, DMD [address] [address] [email or web address] du PCP - General Internal Medicine 11/17/23 12/28/23 Pcp, Unknown PCP - General 02/28/24 03/04/24 [place] [address] [address] PCP - General 03/05/24 05/17/24 Laura Mock MD, DMD [address] [address] [email or web address] PCP - General Internal Medicine 05/18/24 Rina Swenson MD Psychiatry 07/09/17 Laura Mokc MD, DMD [address] [address] [email or web address] [employer] Attributed Provider 09/01/21 07/03/23 Laura Mock MD, DMD [address] [address] [email or web address] du Insurance Assigned Provider 05/31/23 03/01/24 Jakob Bob MD [address] [place] [address] [email or web address] Cardiology 08/22/23 Jose Cruz MD [address] [place] [address] Cardiology 08/22/23 Laura Mock MD, DMD [address] [address] [email or web address] [employer] Attributed Provider 09/01/21 07/03/23 [place] [facility] [phone]. Consulting Provider 08/22/23 [facility] Connect 12/24/23 03/11/24 Cyril Morales [address] [place] [phone] Nurse Practitioner 02/27/24 documented as of this encounter Additional Source Comments The information contained in this document represents components of the legal health record. It is not the complete legal health record.[facility]
--- OUTSIDE RECORDS SUMMARY | 2025-02-09 20:08 | XMS_ITS | Encounter Summary ---
Author Organization [facility] Address [facility] [address] [address] Phone Care Team Providers Care Neon Pumper Name Role Phone Artie Meehan MD Unavailable [...] Description 03/08/2025 9:30 AM EST Pre-Admission Testing [address] 2nd [place] [address] Irineo Ruff MD [address] [place] [address] [email or web address] 03/15/2025 Procedure Pass [facility] Endoscopy Department [address] [place] [address] 03/15/2025 7:30 AM EST Hospital Encounter [facility] Endoscopy Department [address] [place] [address] Irineo Ruff MD [address] [place] [address] [email or web address] 03/15/2025 7:30 AM EST - 03/15/2025 8:15 AM EST Surgery [facility] Endoscopy Department [address] [place] [address] Irineo Ruff MD [address] [place] [address] [email or web address] [email or web address] Scheduled Procedures Name Priority [...] documented as of this encounter Care Teams Neon Pumper Relationship Specialty Start Date End Date Laura Mock MD, DMD [address] [address] [email or web address] PCP - General Internal Medicine 06/04/21 11/11/23 Pcp, Unknown PCP - General 11/12/23 11/16/23 Laura Mcok MD, DMD [address] [address] [email or web address] PCP - General Internal Medicine 11/17/23 12/28/23 Pcp, Unknown PCP - General 02/28/24 03/04/24 [place] [address] [address] PCP - General 03/05/24 05/17/24 Laura Mock MD, DMD [address] [address] [email or web address] PCP - General Internal Medicine 05/18/24 Artie Meehan MD [address] [place] [address] Dr [place]ior [facility] [place] [address] Internal Medicine 10/26/17 04/23/22 Rina Swenson MD [address] [place] [address] [place] [address] Psychiatry 07/09/17 Laura Mock MD, DMD [address] [address] [email or web address] Attributed Provider 09/01/21 07/03/23 Laura Mock MD, DMD [address] [address] [email or web address] Insurance Assigned Provider 05/31/23 03/01/24 Jakob Bob MD [address] [place] [address] [email or web address] Cardiology 08/22/23 Jose Cruz MD [address] [place] [address] Cardiology 08/22/23 Laura Mock MD, DMD [address] [address] [email or web address] Attributed Provider 09/01/21 07/03/23 [place] [facility] [phone]. Consulting Provider 08/22/23 [facility] Connect 12/24/23 03/11/24 Cyril Morales [address] [place] [phone] Nurse Practitioner 02/27/24 documented as of this encounter Additional Source Comments The information contained in this document represents components of the legal health record. It is not the complete legal health record.[facility]
--- OUTSIDE RECORDS SUMMARY | 2025-02-09 20:08 | XMS_ITS | Encounter Summary ---
Author Organization [facility] Address [address] [place] [address] Phone Care Team Providers Care Musculoskeletal Physiotherapist Name Role Phone Artie Meehan MD Unavailable Rina Swenson MD Unavailable [phone] Laura Mock MD, DMD Primary Car e Provider Laura Mock MD, DMD Unavailable Laura Mock MD, DMD Unavailable Jakob Bob MD Unavailable [phone] Jose Cruz MD Unavailable Laura Mock MD, DMD Unavailable Pcp, Unknown Primary Care Provider UnavailLaura Ascencio MD, DMD Primary Car e Provider Pcp, Unknown Primary Care Provider UnavailNicole Arguello MD Primary Care Provide r Laura Mock MD, DMD Primary Car e Provider Encounter Details Date Type Department Care Team (Late st Contact Info) Description 09/13/2021 Anti-coag visit [facility] [address] [place] [address] Abbie Prieto, PharmD [address] [address] [email or web address] Social History Tobacco Use [...] 03/08/2025 9:30 AM EST Pre-Admission Testing [address] 2nd [place] [address] Irineo Ruff MD [address] [place] [address] [email or web address] 03/15/2025 Procedure Pass [facility] Endoscopy Department [address] [place] [address] 03/15/2025 7:30 AM EST Hospital Encounter [facility] Endoscopy Department [address] [place] [address] Irineo Ruff MD [address] [place] [address] [email or web address] 03/15/2025 7:30 AM EST - 03/15/2025 8:15 AM EST Surgery [facility] Endoscopy Department [address] [place] [address] Irineo Ruff MD [address] [place] [address] [place] [address] [email or web address] COLONOSCOPY Scheduled [...] documented as of this encounter Care Teams Musculoskeletal Physiotherapist Relationship Specialty Start Date End Date Laura Mock MD, DMD [address] [address] [email or web address] du PCP - General Internal Medicine 06/04/21 11/11/23 Pcp, Unknown PCP - General 11/12/23 11/16/23 Laura Mock MD, DMD [address] [address] [email or web address] du PCP - General Internal Medicine 11/17/23 12/28/23 Pcp, Unknown PCP - General 02/28/24 03/04/24 [place] [address] [address] PCP - General 03/05/24 05/17/24 Laura Mock MD, DMD [address] [address] [email or web address] du PCP - General Internal Medicine 05/18/24 Artie Meehan MD [address] [place] [address] [place] [address] Internal Medicine 10/26/17 04/23/22 Rina Swenson MD [address] [place] [address] [place] [address] Psychiatry 07/09/17 Laura Mock MD, DMD [address] [address] [email or web address] du [employer] Attributed Provider 09/01/21 07/03/23 Laura Mock MD, DMD [address] [address] [email or web address] Insurance Assigned Provider 05/31/23 03/01/24 Jakob Bob MD [address] [place] [address] [email or web address] Cardiology 08/22/23 Jose Cruz MD [address] [place] [address] Cardiology 08/22/23 Laura Mock MD, DMD [address] [address] [email or web address] Attributed Provider 09/01/21 07/03/23 [place] [facility] [phone]. Consulting Provider 08/22/23 [facility] Connect 12/24/23 03/11/24 Cyril Morales [address] [place] [phone] Nurse Practitioner 02/27/24 documented as of this encounter Additional Source Comments The information contained in this document represents components of the legal health record. It is not the complete legal health record.[facility]
--- OUTSIDE RECORDS SUMMARY | 2025-02-09 20:08 | XMS_ITS | Encounter Summary ---
Author Organization [facility] Address [address] [employer] [facility] [address] [place] [address] Phone Care Team Providers Care Superintendent Cemetery Name Role Phone Artie Meehan MD Primary Care Provider [phone] Artie Meehan MD Unavailable Rina Swenson MD Unavailable Laura Mock MD, DMD Primary Car e Provider Laura Mock MD, DMD Unavailable Laura Mock MD, DMD Unavailable Jakob Bob MD Unavailable [phone] Jose Cruz MD Unavailable Laura Mock MD, DMD Unavailable Pcp, Unknown Primary Care Provider UnavailLaura Ascencio MD, DMD Primary Car e Provider Pcp, Unknown Primary Care Provider UnavailNicole Arguello MD Primary Care Provide r Laura Mock MD, DMD Primary Car e Provider Encounter Details Date Type Department Care Team (Late st Contact Info) Description 04/06/2019 Ancillary Orders Virtual Department [address] [place] [address] Artie Meehan MD [address] [place] [address] [place] [address] Menopausal state Social History Tobacco Use Types [...] Description 03/08/2025 9:30 AM EST Pre-Admission Testing [address] [address] Irineo Ruff MD [address] [place] [address] [email or web address] 03/15/2025 Procedure Pass [facility] Endoscopy Department [address] [place] [address] 03/15/2025 7:30 AM EST Hospital Encounter [facility] Endoscopy Department [address] [place] [address] Irineo Ruff MD [address] [place] [address] [email or web address] 03/15/2025 7:30 AM EST - 03/15/2025 8:15 AM EST Surgery [facility] Endoscopy Department [address] [place] [address] Irineo Ruff MD [address] [place] [address] [place] [address] [email or web address] COLONOSCOPY Scheduled Procedures Name Priority Associated [...] documented as of this encounter Care Teams Superintendent Cemetery Relationship Specialty Start Date End Date Artie Meehan MD [address] [place] [address] Dr Dior [address] [place] [address] PCP - General Internal Medicine 10/26/17 06/03/21 Laura Mock MD, DMD [address] [address] [email or web address] PCP - General Internal Medicine 06/04/21 11/11/23 Pcp, Unknown PCP - General 11/12/23 11/16/23 Laura Mock MD, DMD [address] [address] [email or web address] PCP - General Internal Medicine 11/17/23 12/28/23 Pcp, Unknown PCP - General 02/28/24 03/04/24 Nicole Newell MD [address] [place] [address] PCP - General 03/05/24 05/17/24 Laura Mock MD, DMD [address] [address] [email or web address] du PCP - General Internal Medicine 05/18/24 Artie Meehan MD [address] [place] [address] [place] [id number] Internal Medicine 10/26/17 04/23/22 Rina Swenson MD [address] [place] [address] [place] [id number] Psychiatry 07/09/17 Laura Mock MD, DMD [address] [address] [email or web address] [employer] Attributed Provider 09/01/21 07/03/23 Laura Mock MD, DMD [address] [address] [email or web address] du Insurance Assigned Provider 05/31/23 03/01/24 Jakob Bob MD [address] [place] [address] [place] [address] [email or web address] Cardiology 08/22/23 Jose Cruz MD [address] [place] [address], [address] [place] [address] Cardiology 08/22/23 Laura Mock MD, DMD [address] [address] [email or web address] Attributed Provider 09/01/21 07/03/23 [facility] [phone]. Consulting Provider 08/22/23 [facility] Connect 12/24/23 03/11/24 Cyril Morales [address] [place] [phone] Nurse Practitioner 02/27/24 documented as of this encounter Additional Source Comments The information contained in this document represents components of the legal health record. It is not the complete legal health record.[facility]
--- OUTSIDE RECORDS SUMMARY | 2025-02-09 20:08 | XMS_ITS | Encounter Summary ---
Author Organization [facility] Address [address] [facility] [address] [place] [address] Phone Care Team Providers Care Chef French Name Role Phone Artie Meehan MD Primary Care Provider [phone] Artie Meehan MD Unavailable Rina Swenson MD Unavailable Laura Mock MD, DMD Primary Car e Provider Laura Mock MD, DMD Unavailable Laura Mock MD, DMD Unavailable Jakob Bob MD Unavailable [phone] Jose Cruz MD Unavailable [phone] Laura Mock MD, DMD Unavailable Pcp, Unknown Primary Care Provider UnavailLaura Ascencio MD, DMD Primary Car e Provider Pcp, Unknown Primary Care Provider UnavailNicole Arguello MD Primary Care Provide r Laura Mock MD, DMD Primary Car e Provider Encounter Details Date Type Department Care Team (Late st Contact Info) Description 11/07/2020 Procedure Pass [facility], [address] [address] Social History Tobacco Use Types Packs/Day Years [...] Upcoming Encounters Date Type Department Care Team ([facility] st Contact Info) Description 03/08/2025 9:30 AM EST Pre-Admission Testing [address] 2nd [place] [address] Irineo Ruff MD [address] [place] [address] [email or web address] 03/15/2025 Procedure Pass [facility] Endoscopy Department [address] [place] [address] 03/15/2025 7:30 AM EST Hospital Encounter [facility] Endoscopy Department [address] [place] [address] Irineo Ruff MD [address] [place] [address] [email or web address] 03/15/2025 7:30 AM EST - 03/15/2025 8:15 AM EST Surgery [facility] Endoscopy Department [address] [place] [address] Irineo Ruff MD [address] [place] [address] [email or web address] [email or web address] Scheduled Procedures Name Priority Associated Diagnoses [...] documented as of this encounter Care Teams Chef French Relationship Specialty Start Date End Date Artie Meehan MD [address] [place] [address] Dr Dior [facility] [place] [address] PCP - General Internal Medicine 10/26/17 06/03/21 Laura Mock MD, DMD [address] [address] [email or web address] PCP - General Internal Medicine 06/04/21 11/11/23 Pcp, Unknown PCP - General 11/12/23 11/16/23 Laura Mock MD, DMD [address] [address] [email or web address] PCP - General Internal Medicine 11/17/23 12/28/23 Pcp, Unknown PCP - General 02/28/24 03/04/24 [place] [address] [place] [address] PCP - General 03/05/24 05/17/24 Laura Mock MD, DMD [address] [address] [email or web address] PCP - General Internal Medicine 05/18/24 Artie Meehan MD [address] [place] [address] [place] [address] Internal Medicine 10/26/17 04/23/22 Rina Swenson MD [address] [place] [address] [place] [address] Psychiatry 07/09/17 Laura Mock MD, DMD [address] [address] [email or web address] Partners Attributed Provider 09/01/21 07/03/23 Laura Mock MD, DMD [address] [address] [email or web address] Insurance Assigned Provider 05/31/23 03/01/24 Jakob Bob MD [address] [place] [address] [email or web address] Cardiology 08/22/23 Jose Cruz MD [address] [place] [address] Cardiology 08/22/23 Laura Mock MD, DMD [address] [address] [email or web address] Partners Attributed Provider 09/01/21 07/03/23 [place] [facility] [phone]. Consulting Provider 08/22/23 CARMINA, CAROLANN Connect 12/24/23 03/11/24 Cyril Morales [address] [place] [address] Nurse Practitioner 02/27/24 documented as of this encounter Additional Source Comments The information contained in this document represents components of the legal health record. It is not the complete legal health record.[facility]
--- OUTSIDE RECORDS SUMMARY | 2025-02-09 20:08 | XMS_ITS | Encounter Summary ---
Author Organization [facility] Address [address] [facility] [address] [place] [address] Phone Care Team Providers Care Data Entry Assistant Name Role Phone Rina Swenson MD Unavailable Laura Mock MD, DMD Primary Car e Provider Laura Mock MD, DMD Unavailable Laura Mock MD, DMD Unavailable Jakob Bob MD Unavailable Jose Cruz MD Unavailable [phone] Laura Mock MD, DMD Unavailable Pcp, Unknown Primary Care Provider UnavailLaura Ascencio MD, DMD Primary Car e Provider Pcp, Unknown Primary Care Provider UnavailNicole Arguello MD Primary Care Provide r Laura Mock MD, DMD Primary Car e Provider Encounter Details Date Type Department Care Team (Late st Contact Info) Description 12/25/2022 Procedure Pass [address] [address] Social History Tobacco Use Types Packs/Day Years [...] Description 03/08/2025 9:30 AM EST Pre-Admission Testing [address] [address] Irineo Ruff MD [address] [place] [address] [email or web address] 03/15/2025 Procedure Pass [facility] Endoscopy Department [address] [place] [address] 03/15/2025 7:30 AM EST Hospital Encounter [facility] Endoscopy Department [address] [place] [address] Irineo Ruff MD [address] [place] [address] [email or web address] 03/15/2025 7:30 AM EST - 03/15/2025 8:15 AM EST Surgery [facility] Endoscopy Department [address] [place] [address] Irineo Ruff MD [address] [place] [address] [email or web address] [email or web address] Scheduled Procedures Name Priority Associated [...] documented as of this encounter Care Teams Data Entry Assistant Relationship Specialty Start Date End Date Laura Mock MD, DMD [address] [address] [email or web address] PCP - General Internal Medicine 06/04/21 11/11/23 Pcp, Unknown PCP - General 11/12/23 11/16/23 Laura Mock MD, DMD [address] [address] [email or web address] PCP - General Internal Medicine 11/17/23 12/28/23 Pcp, Unknown PCP - General 02/28/24 03/04/24 [place] [address] [place] [address] PCP - General 03/05/24 05/17/24 Laura Mock MD, DMD [address] [address] [email or web address] PCP - General Internal Medicine 05/18/24 Rina Swenson MD Psychiatry 07/09/17 Laura Mock MD, DMD [address] [address] [email or web address] Attributed Provider 09/01/21 07/03/23 Laura Mock MD, DMD [address] [address] [email or web address] Insurance Assigned Provider 05/31/23 03/01/24 Jakob Bob MD [address] [place] [address] [email or web address] Cardiology 08/22/23 Jose Cruz MD [address] [place] [address] Cardiology 08/22/23 Laura Mock MD, DMD [address] [address] [email or web address] Attributed Provider 09/01/21 07/03/23 [place] [facility] [phone]. Consulting Provider 08/22/23 WHP, PC Connect 12/24/23 03/11/24 Cyril Morales [address] [place] [address] Nurse Practitioner 02/27/24 documented as of this encounter Additional Source Comments The information contained in this document represents components of the legal health record. It is not the complete legal health record.[facility]
--- OUTSIDE RECORDS SUMMARY | 2025-02-09 20:08 | XMS_ITS | Encounter Summary ---
Author Organization [facility] Address [address] [facility] [place] [address] [place] [address] Phone Care Team Providers Care Pipe Inspector Name Role Phone Artie Meehan MD Primary Care Provider [phone] Artie Meehan MD Unavailable Rina Swenson MD Unavailable [phone] Laura Mock MD, DMD Primary Car e Provider Laura Mock MD, DMD Unavailable Laura Mock MD, DMD Unavailable Jakob Bob MD Unavailable Jose Cruz MD Unavailable [phone] Laura Mock MD, DMD Unavailable Pcp, Unknown Primary Care Provider UnavailLaura Ascencio MD, DMD Primary Car e Provider Pcp, Unknown Primary Care Provider UnavailNicole Arguello MD Primary Care Provide r Laura Mock MD, DMD Primary Car e Provider Encounter Details Date Type Department Care Team (Late st Contact Info) Description 12/16/2019 Ancillary Orders Virtual Department [address] [place] [address] Artie Meehan MD [address] [place] [address] [place] [address] Breast screening Social History Tobacco Use Types [...] Description 03/08/2025 9:30 AM EST Pre-Admission Testing [address] [address] Irineo Ruff MD [address] [place] [address] [email or web address] 03/15/2025 Procedure Pass [facility] Endoscopy Department [address] [place] [address] 03/15/2025 7:30 AM EST Hospital Encounter [facility] Endoscopy Department [address] [place] [address] Irineo Ruff MD [address] [place] [address] [email or web address] 03/15/2025 7:30 AM EST - 03/15/2025 8:15 AM EST Surgery [facility] Endoscopy Department [address] [place] [address] Irineo Ruff MD [address] [place] [address] [place] [address] [email or web address] COL[facility]COPY Scheduled Procedures Name Priority [...] as of this encounter Care Teams Pipe Inspector Relationship Specialty Start Date End Date Artie Meehan MD [address] [place] [address] Dr Dior [facility] [place] [address] PCP - General Internal Medicine 10/26/17 06/03/21 Laura Mock MD, DMD [address] [address] [email or web address] PCP - General Internal Medicine 06/04/21 11/11/23 Pcp, Unknown PCP - General 11/12/23 11/16/23 Laura Mock MD, DMD [address] [address] [email or web address] PCP - General Internal Medicine 11/17/23 12/28/23 Pcp, Unknown PCP - General 02/28/24 03/04/24 [place] [address] [address] PCP - General 03/05/24 05/17/24 Laura Mock MD, DMD [address] [address] [email or web address] PCP - General Internal Medicine 05/18/24 Artie Meehan MD [address] [place] [address] [place] [address] Internal Medicine 10/26/17 04/23/22 Rina Swenson MD [address] [place] [address] [place] [address] Psychiatry 07/09/17 Laura Mock MD, DMD 1 [facility] [address] [place] [address] [email or web address] Attributed Provider 09/01/21 07/03/23 Laura Mock MD, DMD [address] [address] [email or web address] Insurance Assigned Provider 05/31/23 03/01/24 Jakob Bob MD [address] [place] [address] [email or web address] Cardiology 08/22/23 Jose Cruz MD [address] [place] [address] Cardiology 08/22/23 Laura Mock MD, DMD [address] [address] [email or web address] Attributed Provider 09/01/21 07/03/23 [place] [facility] [phone]. Consulting Provider 08/22/23 [facility] Connect 12/24/23 03/11/24 Cyril Morales [address] [place] [phone] Nurse Practitioner 02/27/24 documented as of this encounter Additional Source Comments The information contained in this document represents components of the legal health record. It is not the complete legal health record.[facility]
--- OUTSIDE RECORDS SUMMARY | 2025-02-09 20:08 | XMS_ITS | Encounter Summary ---
Author Organization [facility] Address [address] [employer] [facility] [address] [place] [address] Phone Care Team Providers Care Fashion Show Director Name Role Phone Artie Meehan MD Primary Care Provider [phone] Artie Meehan MD Unavailable Rina Swenson MD [...] st Contact Info) Description 09/06/2020 Procedure Pass [facility] [address] [place] [address] Social History Tobacco Use Types Packs/Day Years [...] 03/08/2025 9:30 AM EST Pre-Admission Testing [address] [address] Irineo Ruff MD [address] [place] [address] [email or web address] 03/15/2025 Procedure Pass [facility] Endoscopy Department [address] [place] [address] 03/15/2025 7:30 AM EST Hospital Encounter [facility] Endoscopy Department [address] [place] [address] Irineo Ruff MD [address] [place] [address] [email or web address] 03/15/2025 7:30 AM EST - 03/15/2025 8:15 AM EST Surgery [facility] Endoscopy Department [address] [place] [address] Irineo Ruff MD [address] [place] [address] [email or web address] COLONOSCOPY Scheduled Procedures Name Priority Associated Diagnoses [...] documented as of this encounter Care Teams Fashion Show Director Relationship Specialty Start Date End Date Artie Meehan MD [address] [place] [address] [place] [address] [place] [address] PCP - General Internal Medicine 10/26/17 06/03/21 Laura Mock MD, DMD [address] [address] [email or web address] PCP - General Internal Medicine 06/04/21 11/11/23 Pcp, Unknown PCP - General 11/12/23 11/16/23 Laura Mock MD, DMD [address] [address] [email or web address] du PCP - General Internal Medicine 11/17/23 12/28/23 Pcp, Unknown PCP - General 02/28/24 03/04/24 [place] [address] [place] [address] PCP - General 03/05/24 05/17/24 Laura Mock MD, DMD [address] [address] [email or web address] PCP - General Internal Medicine 05/18/24 Artie Meehan MD [address] [place] [address] [place] [address] Internal Medicine 10/26/17 04/23/22 Rina Swenson MD [address] [place] [address] [place] [address] Psychiatry 07/09/17 Laura Mock MD, DMD [address] [address] [email or web address] Partners Attributed Provider 09/01/21 07/03/23 Laura Mock MD, DMD [address] [address] [email or web address] Insurance Assigned Provider 05/31/23 03/01/24 Jakob Bob MD [address] [place] [address] [email or web address] Cardiology 08/22/23 Jose Cruz MD [address] [place] [address], [address] [address] Cardiology 08/22/23 Laura Mock MD, DMD [address] [address] [email or web address] Partners Attributed Provider 09/01/21 07/03/23 [facility] [phone]. Consulting Provider 08/22/23 CARMINA PC Connect 12/24/23 03/11/24 Cyril Morales [address] [place] [address] Nurse Practitioner 02/27/24 documented as of this encounter Additional Source Comments The information contained in this document represents components of the legal health record. It is not the complete legal health record.[facility]
--- OUTSIDE RECORDS SUMMARY | 2025-02-09 20:08 | XMS_ITS | Encounter Summary ---
Author Organization [facility] Address [employer] [address] [address] Phone Care Team Providers Care Shuttle Spotter Name Role Phone Artie Meehan MD Unavailable Rina Swenson MD Unavailable Laura Mock MD, DMD Primary Car e Provider Laura Mock MD, DMD Unavailable Laura Mock MD, DMD Unavailable Jakob Bob MD Unavailable [phone] Jose Cruz MD Unavailable Laura Mock MD, [...] Description 03/08/2025 9:30 AM EST Pre-Admission Testing [address] 2nd [place] [address] Irineo Ruff MD [address] [place] [address] [email or web address] 03/15/2025 Procedure Pass [facility] Endoscopy Department [address] [place] [address] 03/15/2025 7:30 AM EST Hospital Encounter [facility] Endoscopy Department [address] [place] [address] Irineo Ruff MD [address] [place] [address] [email or web address]@[email or web address] 03/15/2025 7:30 AM EST - 03/15/2025 8:15 AM EST Surgery [facility] Endoscopy Department [address] [place] [address] Irineo Ruff MD [address] [place] [address] [email or web address]@[email or web address] COLONOSCOPY Scheduled Procedures [...] documented as of this encounter Care Teams Shuttle Spotter Relationship Specialty Start Date End Date Laura Mock MD, DMD [address] [address] [email or web address] PCP - General Internal Medicine 06/04/21 11/11/23 Pcp, Unknown PCP - General 11/12/23 11/16/23 Laura Mock MD, DMD [address] [address] [email or web address] PCP - General Internal Medicine 11/17/23 12/28/23 Pcp, Unknown PCP - General 02/28/24 03/04/24 [place] [address] [address] PCP - General 03/05/24 05/17/24 Laura Mock MD, DMD [address] [address] [email or web address] PCP - General Internal Medicine 05/18/24 Artie Meehan MD [address] [place] [address] [place] [facility] [place] [address] Internal Medicine 10/26/17 04/23/22 Rina Swenson MD [address] [place] [address] [place] [address] Psychiatry 07/09/17 Laura Mock MD, DMD [address] [address] [email or web address] Attributed Provider 09/01/21 07/03/23 Laura Mock MD, DMD [address] [address] [email or web address] Insurance Assigned Provider 05/31/23 03/01/24 Jakob Bob MD [address] [place] [address] [email or web address] Cardiology 08/22/23 Jose Cruz MD [address] [place] [address] Cardiology 08/22/23 Laura Mock MD, DMD [address] [address] [email or web address] Attributed Provider 09/01/21 07/03/23 [place] [facility] [phone]. Consulting Provider 08/22/23 WH[facility]anca, PC Connect 12/24/23 03/11/24 Cyril Morales [address] [place] [address] Nurse Practitioner 02/27/24 documented as of this encounter Additional Source Comments The information contained in this document represents components of the legal health record. It is not the complete legal health record.[facility]
--- OUTSIDE RECORDS SUMMARY | 2025-02-09 20:08 | XMS_ITS | Encounter Summary ---
Author Organization [facility] Address [address] [address] Phone Care Team Providers Care Skate Boarder Name Role Phone Artie Meehan MD Unavailable Rina Swenson MD Unavailable Laura Mock MD, DMD Primary Car e Provider Laura Mock MD, DMD Unavailable Laura Mock MD, DMD Unavailable Jakob Bob MD Unavailable [phone] Jose Cruz MD Unavailable [phone] Laura Mock MD, DMD Unavailable Pcp, Unknown Primary Care Provider UnavailLaura Ascencio MD, DMD Primary Car e Provider Pcp, Unknown Primary Care Provider UnavailNicole Arguello MD Primary Care Provide r Laura Mock MD, DMD Primary Car e Provider Encounter Details Date Type Department Care Team (Late st Contact Info) Description 09/07/2021 Anti-coag visit [facility] [address] [place] [address] Kenyatta Gamez, PharmD [email or web address] Social History Tobacco Use Types [...] 03/08/2025 9:30 AM EST Pre-Admission Testing [address] [address] Irineo Ruff MD [address] [place] [address] [email or web address] 03/15/2025 Procedure Pass [facility] Endoscopy Department [address] [place] [address] 03/15/2025 7:30 AM EST Hospital Encounter [facility] Endoscopy Department [address] [place] [address] Irineo Ruff MD [address] [place] [address] [email or web address] 03/15/2025 7:30 AM EST - 03/15/2025 8:15 AM EST Surgery [facility] Endoscopy Department [address] [place] [address] Irineo Ruff MD [address] [place] [address] [place] [address] [email or web address] Scheduled Procedures Name Priority [...] documented as of this encounter Care Teams Skate Boarder Relationship Specialty Start Date End Date Laura Mock MD, DMD [address] [address] [email or web address] PCP - General Internal Medicine 06/04/21 11/11/23 Pcp, Unknown PCP - General 11/12/23 11/16/23 Laura Mock MD, DMD [address] [address] [email or web address] PCP - General Internal Medicine 11/17/23 12/28/23 Pcp, Unknown PCP - General 02/28/24 03/04/24 Nicole [place] [address] [place] [address] PCP - General 03/05/24 05/17/24 Laura Mock MD, DMD [address] [address] [email or web address] PCP - General Internal Medicine 05/18/24 Artie Meehan MD [address] [place] [address] Dr [place] [facility] [place] [address] Internal Medicine 10/26/17 04/23/22 Rina Swenson MD [address] [place] [address] [place] [address] Psychiatry 07/09/17 Laura Mock MD, DMD [address] [address] [email or web address] Partners Attributed Provider 09/01/21 07/03/23 Laura Mock MD, DMD [address] [address] [email or web address] Insurance Assigned Provider 05/31/23 03/01/24 Jakob Bob MD [address] [place] [address] [place] [address] [email or web address] Cardiology 08/22/23 Jose Cruz MD [address] [place] [address] Cardiology 08/22/23 Laura Mock MD, DMD [address] [address] [email or web address] Partners Attributed Provider 09/01/21 07/03/23 [place] [facility] [phone]. Consulting Provider 08/22/23 [facility] Connect 10/30/24 1/16/25 Cyril Morales [address] [place] [address] Nurse Practitioner 02/27/24 documented as of this encounter Additional Source Comments The information contained in this document represents components of the legal health record. It is not the complete legal health record.[facility]
--- OUTSIDE RECORDS SUMMARY | 2025-02-09 20:08 | XMS_ITS | Encounter Summary ---
Author Organization [facility] Address [address] [place] [address] Phone Care Team Providers Care Card Cutter Helper Name Role Phone Artie Meehan MD Unavailable Rina Swenson MD Unavailable Laura Mock MD, DMD Primary Car e Provider Laura Mock MD, DMD Unavailable Laura Mock MD, DMD Unavailable Jakob Bob MD Unavailable Jose Cruz MD Unavailable [phone] Laura Mock MD, DMD Unavailable Pcp, Unknown Primary Care Provider UnavailLaura Ascencio MD, DMD Primary Car e Provider Pcp, Unknown Primary Care Provider UnavailNicole Arguello MD Primary Care Provide r Laura Mock MD, DMD Primary Car e Provider Encounter Details Date Type Department Care Team (Late st Contact Info) Description 09/17/2021 [facility]-coag visit [facility] [address] [place] [address] Catherine Hernández, PharmD [email or web address] Social History Tobacco Use Types Packs/Day [...] Description 03/08/2025 9:30 AM EST Pre-Admission Testing [facility] [address] [address] Irineo Ruff MD [address] [place] [address] [email or web address] 03/15/2025 Procedure Pass [facility] Endoscopy Department [address] [place] [address] 03/15/2025 7:30 AM EST Hospital Encounter [facility] Endoscopy Department [address] [place] [address] Irineo Ruff MD [address] [place] [address] [email or web address] 03/15/2025 7:30 AM EST - 03/15/2025 8:15 AM EST Surgery [facility] Endoscopy Department [address] [place] [address] Irineo Ruff MD [address] [place] [address] [email or web address] COLONOSCOPY Scheduled Procedures Name Priority [...] documented as of this encounter Care Teams Card Cutter Helper Relationship Specialty Start Date End Date Laura Mock MD, DMD [address] [address] [email or web address] PCP - General Internal Medicine 06/04/21 11/11/23 Pcp, Unknown PCP - General 11/12/23 11/16/23 Laura Mock MD, DMD [address] [address] [email or web address] PCP - General Internal Medicine 11/17/23 12/28/23 Pcp, Unknown PCP - General 02/28/24 03/04/24 [place] [address] [address] PCP - General 03/05/24 05/17/24 Laura Mock MD, DMD [address] [address] [email or web address] du PCP - General Internal Medicine 05/18/24 Artie Meehan MD [address] [place] [address] [place] [address] Internal Medicine 10/26/17 04/23/22 Rina Swenson MD [address] [place] [address] Dr Dior Elisabeth PRATIBHAMARILUYOLIE [address] Psychiatry 07/09/17 Laura Mock MD, DMD [address] [address] [email or web address] du Partners Attributed Provider 09/01/21 07/03/23 Laura Mock MD, DMD [address] [address] [email or web address] du Insurance Assigned Provider 05/31/23 03/01/24 Jakob Bob MD [address] [place] [address] [email or web address] Cardiology 08/22/23 Jose Cruz MD [address] [place] [address] Cardiology 08/22/23 Laura Mock MD, DMD [address] [address] [email or web address] Partners Attributed Provider 09/01/21 07/03/23 [facility] [phone]. Consulting Provider 08/22/23 [facility] Connect 12/24/23 03/11/24 Cyril Morales [facility] [place] [address] Nurse Practitioner 02/27/24 documented as of this encounter Additional Source Comments The information contained in this document represents components of the legal health record. It is not the complete legal health record.[facility]
--- OUTSIDE RECORDS SUMMARY | 2025-02-09 20:08 | XMS_ITS | Encounter Summary ---
Author Organization [facility] Address [address] [facility] [address] [place] [address] Phone Care Team Providers Care Project Manager Entertainment And Media Name Role Phone Rina Swenson MD Unavailable [...] st Contact Info) Description 12/10/2022 Anti-coag visit [facility] Clinic [address] [place] [address] [phone] Catherine Hernández, PharmD [email or web address] Social History Tobacco Use Types [...] Description 03/08/2025 9:30 AM EST Pre-Admission Testing [facility] [address] [address] Irineo Ruff MD [address] [place] [address] [email or web address] 03/15/[address] [facility] Endoscopy Department [address] [place] [address] 03/15/2025 7:30 AM EST Hospital Encounter [facility] Endoscopy Department [address] [place] [address] Irineo Ruff MD [address] [place] [address] [email or web address] 03/15/2025 7:30 AM EST - 03/15/2025 8:[address] [facility] Endoscopy Department [address] [place] [address] Irineo Ruff MD [address] [place] [address] [place] [address] [email or web address] [email or web address] Scheduled Procedures Name Priority Associated [...] documented as of this encounter Care Teams Project Manager Entertainment And Media Relationship Specialty Start Date End Date Laura Mock MD, DMD [address] [address] [email or web address] PCP - General Internal Medicine 06/04/21 11/11/23 Pcp, Unknown PCP - General 11/12/23 11/16/23 Laura Mock MD, DMD [address] [address] [email or web address] du PCP - General Internal Medicine 11/17/23 12/28/23 Pcp, Unknown PCP - General 02/28/24 03/04/24 Nicole Newell MD [address] [place] [address] [id number] PCP - General 03/05/24 05/17/24 Laura Mock MD, DMD [address] [address] [email or web address] du PCP - General Internal Medicine 05/18/24 Rina Swenson MD Psychiatry 07/09/17 Laura Mock MD, DMD [address] [address] [email or web address] du Partners Attributed Provider 09/01/21 07/03/23 Laura Mock MD, DMD [address] [address] [email or web address] du Insurance Assigned Provider 05/31/23 03/01/24 Jakob Bob MD [address] [place] [address] [email or web address] Cardiology 08/22/23 Jose Cruz MD [address] [place] [address] Cardiology 08/22/23 Laura Mock MD, DMD [address] [address] [email or web address] Partners Attributed Provider 09/01/21 07/03/23 [facility] [phone]. Consulting Provider 08/22/23 [facility] Connect 12/24/23 03/11/24 Cyril Morales [address] [place] [address] Nurse Practitioner 02/27/24 documented as of this encounter Additional Source Comments The information contained in this document represents components of the legal health record. It is not the complete legal health record.[facility]
--- OUTSIDE RECORDS SUMMARY | 2025-02-09 20:08 | XMS_ITS | Encounter Summary ---
Author Organization [facility] Address [address] [address] Phone Care Team Providers Care Office Technology Professor Name Role Phone Artie Meehan MD Unavailable Rina Swenson MD Unavailable Laura Mock MD, DMD Primary Car e Provider Laura Mock MD, DMD Unavailable Laura Mock MD, DMD Unavailable Jakob Bob MD Unavailable Jose Cruz MD Unavailable [phone] Laura Mock MD, DMD Unavailable Pcp, Unknown Primary Care Provider UnavailLaura Ascencio MD, DMD Primary Car e Provider Pcp, Unknown Primary Care Provider UnavailNicole Arguello MD Primary Care Provide r Laura Mock MD, DMD Primary Car e Provider Encounter Details Date Type Department Care Team (Late st Contact Info) Description 09/28/2021 Telephone [facility] [address] [place] [address] Tamara [place], [place] [address] [place] [address] [email or web address] Social History Tobacco Use Types Packs/Day Years [...] 03/08/2025 9:30 AM EST Pre-Admission Testing [address] [address] Irineo Ruff MD [address] [place] [address] [place] [address] [email or web address] 03/15/2025 Procedure Pass [facility] Endoscopy Department [address] [place] [address] 03/15/2025 7:30 AM EST Hospital Encounter [facility] Endoscopy Department [address] [place] [address] Irineo Ruff MD [address] [place] [address] [email or web address] 03/15/2025 7:30 AM EST - 03/15/2025 8:15 AM EST Surgery [facility] Endoscopy Department [address] [place] [address] Irineo Ruff MD [address] [place] [address] [email or web address] COLONOSCOPY Scheduled [...] as of this encounter Care Teams Office Technology Professor Relationship Specialty Start Date End Date Laura Mock MD, DMD [address] [address] [email or web address] PCP - General Internal Medicine 06/04/21 11/11/23 Pcp, Unknown PCP - General 11/12/23 11/16/23 Laura Mock MD, DMD [address] [address] [email or web address] PCP - General Internal Medicine 11/17/23 12/28/23 Pcp, Unknown PCP - General 02/28/24 03/04/24 [place] [address] [address] PCP - General 03/05/24 05/17/24 Laura oMck MD, DMD [address] [address] [email or web address] du PCP - General Internal Medicine 05/18/24 Artie Meehan MD [address] [place] [address] [place] [address] Internal Medicine 10/26/17 04/23/22 Rina Swenson MD [address] [place] [address] [place] [address] Psychiatry 07/09/17 Laura Mock MD, DMD [address] [address] [email or web address] du Partners Attributed Provider 09/01/21 07/03/23 Laura Mock MD, DMD [address] [address] [email or web address] du Insurance Assigned Provider 05/31/23 03/01/24 Jakob Bob MD [address] [place] [address] [place] [address] [email or web address] Cardiology 08/22/23 Jose Cruz MD [address] [place] [address] Cardiology 08/22/23 Laura Mock MD, DMD [address] [address] [email or web address] du Partners Attributed Provider 09/01/21 07/03/23 [place] [facility] [phone]. Consulting Provider 08/22/23 [facility] Connect 12/24/23 03/11/24 Cyril Morales [address] [place] [address] Nurse Practitioner 02/27/24 documented as of this encounter Additional Source Comments The information contained in this document represents components of the legal health record. It is not the complete legal health record.[facility]
--- OUTSIDE RECORDS SUMMARY | 2025-02-09 20:08 | XMS_ITS | Encounter Summary ---
Author Organization [facility] Address [address] [place] [address] Phone Care Team Providers Care Strategy Lead Name Role Phone Artie Meehan MD Unavailable Rina Swenson MD Unavailable [phone] Laura Mock MD, DMD Primary Car e Provider Laura Mock MD, DMD Unavailable Laura Mock MD, DMD Unavailable Jakob Bob MD Unavailable Jose Cruz MD Unavailable [phone] Laura Mock MD, DMD Unavailable Pcp, Unknown [...] PharmD [address] [place] [address] [email or web address] Social History Tobacco Use Types Packs/Day [...] Upcoming Encounters Date Type Department Care Team ([facility] st Contact Info) Description 03/08/2025 9:30 AM EST Pre-Admission Testing [address] [address] Irineo Ruff MD [address] [place] [address] [email or web address] 03/15/2025 Procedure Pass [facility] Endoscopy Department [address] [place] [address] 03/15/2025 7:30 AM EST Hospital Encounter [facility] Endoscopy Department [address] [place] [address] Irineo Ruff MD [address] [place] [address] [email or web address] 03/15/2025 7:30 AM EST - 03/15/2025 8:15 AM EST Surgery [facility] Endoscopy Department [address] [place] [address] Irineo Ruff MD [address] [place] [address] [email or web address] [email or web address] Scheduled Procedures Name [...] documented as of this encounter Care Teams Strategy Lead Relationship Specialty Start Date End Date Laura Mock MD, DMD [address] [address] [email or web address] PCP - General Internal Medicine 06/04/21 11/11/23 Pcp, Unknown PCP - General 11/12/23 11/16/23 Laura Mock MD, DMD [address] [address] [email or web address] du PCP - General Internal Medicine 11/17/23 12/28/23 Pcp, Unknown PCP - General 02/28/24 03/04/24 [place] [address] [address] PCP - General 03/05/24 05/17/24 Laura Mock MD, DMD [address] [address] [email or web address] du PCP - General Internal Medicine 05/18/24 Artie Meehan MD [address] [place] [address] [place] [address] Internal Medicine 10/26/17 04/23/22 Rina Swenson MD [address] [place] [address] [place] [address] Psychiatry 07/09/17 Laura Mock MD, DMD 1 [facility] [address] [place] [address] [email or web address] du Partners Attributed Provider 09/01/21 07/03/23 Laura Mock MD, DMD [address] [address] [email or web address] du Insurance Assigned Provider 05/31/23 03/01/24 Jakob Bob MD [address] [place] [address] [email or web address] Cardiology 08/22/23 Jose Cruz MD [address] [place] [address] Cardiology 08/22/23 Laura Mock MD, DMD [address] [address] [email or web address] Partners Attributed Provider 09/01/21 07/03/23 [place] [facility] [place] [phone]. Consulting Provider 08/22/23 [facility] Connect 12/24/23 03/11/24 Cyril Morales [address] [place] [phone] Nurse Practitioner 02/27/24 documented as of this encounter Additional Source Comments The information contained in this document represents components of the legal health record. It is not the complete legal health record.[facility]
--- OUTSIDE RECORDS SUMMARY | 2025-02-09 20:09 | XMS_ITS | Patient Health Record ---
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
--- OUTSIDE RECORDS SUMMARY | 2025-02-09 20:09 | XMS_ITS | Encounter Summary ---
Author Organization [facility] Address [facility] [address] [address] Phone Care Team Providers Care University Extension Specialist Name Role Phone Rina Swenson MD Unavailable Laura Mock MD, DMD Primary Car e Provider Laura Mock MD, DMD Unavailable Laura Mock MD, DMD Unavailable Jakob Bob MD Unavailable Jose Cruz MD Unavailable [phone] Laura Mock MD, DMD Unavailable Pcp, Unknown [...] 03/08/2025 9:30 AM EST Pre-Admission Testing [address] [address] Irineo Ruff MD [address] [place] [address] [email or web address] 03/15/2025 Procedure Pass [facility] Endoscopy Department [address] [place] [address] 03/15/2025 7:30 AM EST Hospital Encounter [facility] Endoscopy Department [address] [place] [address] Irineo Ruff MD [address] [place] [address] [email or web address] 03/15/2025 7:30 AM EST - 03/15/2025 8:15 AM EST Surgery [facility] Endoscopy Department [address] [place] [address] Irineo Ruff MD [address] [place] [address] [email or web address] COLONOSCOPY Scheduled Procedures Name Priority [...] documented as of this encounter Care Teams University Extension Specialist Relationship Specialty Start Date End Date Laura Mock MD, DMD [address] [address] [email or web address] du PCP - General Internal Medicine 06/04/21 11/11/23 Pcp, Unknown PCP - General 11/12/23 11/16/23 Laura Mock MD, DMD [address] [address] [email or web address] du PCP - General Internal Medicine 11/17/23 12/28/23 Pcp, Unknown PCP - General 02/28/24 03/04/24 [place] [address] [address] PCP - General 03/05/24 05/17/24 Laura Mock MD, DMD [address] [address] [email or web address] du PCP - General Internal Medicine 05/18/24 Rina Swenson MD Psychiatry 07/09/17 Laura Mock MD, DMD [address] [address] [email or web address] Partners Attributed Provider 09/01/21 07/03/23 Laura Mock MD, DMD [address] [address] [email or web address] du Insurance Assigned Provider 05/31/23 03/01/24 Jakob Bob MD [address] [place] [address] [email or web address] Cardiology 08/22/23 Jose Cruz MD [address] [place] [address] Cardiology 08/22/23 Laura Mock MD, DMD [address] [address] [email or web address] du Partners Attributed Provider 09/01/21 07/03/23 [place] [facility] [phone]. Consulting Provider 08/22/23 [facility] Connect 12/24/23 03/11/24 Cyril Morales [address] [place] [address] Nurse Practitioner 02/27/24 documented as of this encounter Additional Source Comments The information contained in this document represents components of the legal health record. It is not the complete legal health record.[facility]
--- OUTSIDE RECORDS SUMMARY | 2025-02-09 20:09 | XMS_ITS | Encounter Summary ---
Author Organization [facility] Address [address] [place] [address] Phone Care Team Providers Care Blood Bank Laboratory Technician Name Role Phone Artie Meehan MD Unavailable Rina Swenson MD Unavailable Laura Mock MD, DMD Primary Car e Provider Laura Mock MD, DMD Unavailable Laura Mock MD, DMD Unavailable Jakob Bob MD Unavailable [phone] Jose Cruz MD Unavailable Laura Mock MD, DMD Unavailable Pcp, Unknown Primary Care Provider UnavailLaura Ascencio MD, DMD Primary Car e Provider Pcp, Unknown Primary Care Provider UnavailNicole Arguello MD Primary Care Provide r Laura Mock MD, DMD Primary Car e Provider Encounter Details Date Type Department Care Team (Late st Contact Info) Description 08/07/2021 Anti-coag visit [facility] [address] [place] [address] Kenyatta Gamez, PharmD [email or web address] Social History Tobacco Use Types Packs/Day [...] 03/08/2025 9:30 AM EST Pre-Admission Testing [address] [address] Irineo Ruff MD [address] [place] [address] [email or web address] 03/15/2025 Procedure Pass [facility] Endoscopy Department [address] [place] [address] 03/15/2025 7:30 AM EST Hospital Encounter [facility] Endoscopy Department [address] [place] [address] Irineo Ruff MD [address] [place] [address] [email or web address] 03/15/2025 7:30 AM EST - 03/15/2025 8:15 AM EST Surgery [facility] Endoscopy Department [address] [place] [address] Irineo Ruff MD [address] [place] [address] [place] [address] [email or web address] [email or web address] Scheduled Procedures Name Priority [...] documented as of this encounter Care Teams Blood Bank Laboratory Technician Relationship Specialty Start Date End Date Laura Mock MD, DMD [address] [address] [email or web address] PCP - General Internal Medicine 06/04/21 11/11/23 Pcp, Unknown PCP - General 11/12/23 11/16/23 Laura Mock MD, DMD [address] [address] [email or web address] PCP - General Internal Medicine 11/17/23 12/28/23 Pcp, Unknown PCP - General 02/28/24 03/04/24 [place] [address] [place] [address] PCP - General 03/05/24 05/17/24 Laura Mock MD, DMD [address] [address] [email or web address] du PCP - General Internal Medicine 05/18/24 Artie Meehan MD [address] [place] [address] [place] [address] Internal Medicine 10/26/17 04/23/22 Rina Swenson MD [address] [place] [address] [place] [address] Psychiatry 07/09/17 Laura Mock MD, DMD [address] [address] [email or web address] Partners Attributed Provider 09/01/21 07/03/23 Laura Mock MD, DMD [address] [address] [email or web address] du Insurance Assigned Provider 05/31/23 03/01/24 Jakob Bob MD [address] [place] [address] [place] [address] [email or web address] Cardiology 08/22/23 Jose Cruz MD [address] [place] [address] Cardiology 08/22/23 Laura Mock MD, DMD [address] [address] [email or web address] Partners Attributed Provider 09/01/21 07/03/23 [facility] [phone]. Consulting Provider 08/22/23 [facility] Connect 10/30/24 1/16/25 Cyril Morales [address] [place] [address] Nurse Practitioner 02/27/24 documented as of this encounter Additional Source Comments The information contained in this document represents components of the legal health record. It is not the complete legal health record.[facility]
--- OUTSIDE RECORDS SUMMARY | 2025-02-09 20:09 | XMS_ITS | Encounter Summary ---
Author Organization [facility] Address [facility] [address] [address] Phone Care Team Providers Care Travel Manager Name Role Phone Rina Swenson MD [...] Description 03/08/2025 9:30 AM EST Pre-Admission Testing [address] [place] [address] Irinoe Ruff MD [address] [place] [address] [email or web address] 03/15/2025 Procedure Pass [facility] Endoscopy Department [address] [place] [address] 03/15/2025 7:30 AM EST Hospital Encounter [facility] Endoscopy Department [address] [place] [address] Irineo Ruff MD [address] [place] [address] [email or web address] 03/15/2025 7:30 AM EST - 03/15/2025 8:15 AM EST Surgery [facility] Endoscopy Department [address] [place] [address] Irineo Ruff MD [address] [place] [address] [email or web address] Scheduled Procedures Name Priority [...] documented as of this encounter Care Teams Travel Manager Relationship Specialty Start Date End Date Laura Mock MD, DMD [address] [address] [email or web address] PCP - General Internal Medicine 06/04/21 11/11/23 Pcp, Unknown PCP - General 11/12/23 11/16/23 Laura Mock MD, DMD [address] [address] [email or web address] du PCP - General Internal Medicine 11/17/23 12/28/23 Pcp, Unknown PCP - General 02/28/24 03/04/24 Nicole Newell MD [address] [place] [address] PCP - General 03/05/24 05/17/24 Laura Mock MD, DMD [address] [address] [email or web address] du PCP - General Internal Medicine 05/18/24 Rina Swenson MD Psychiatry 07/09/17 Laura Mock MD, DMD [address] [address] [email or web address] Partners Attributed Provider 09/01/21 07/03/23 Laura Mock MD, DMD 1 [facility] [address] [place] [address] [email or web address] Insurance Assigned Provider 05/31/23 03/01/24 Jakob Bob MD [address] [place] [address] [address] [place] [address] [email or web address] Cardiology 08/22/23 Jose Cruz MD [address] [place] [address] [address] [place] [address] Cardiology 08/22/23 Laura Mock MD, DMD [address] [address] [email or web address] Partners Attributed Provider 09/01/21 07/03/23 [place] [facility] [phone]. Consulting Provider 08/22/23 [facility] Connect 12/24/23 03/11/24 Cyril Morales [address] [place] [address] Nurse Practitioner 02/27/24 documented as of this encounter Additional Source Comments The information contained in this document represents components of the legal health record. It is not the complete legal health record.[facility]
--- OUTSIDE RECORDS SUMMARY | 2025-02-09 20:09 | XMS_ITS | Encounter Summary ---
Author Organization [facility] Address [address] [facility] [address] [place] [address] Phone Care Team Providers Care Electronic Publisher Name Role Phone Rina Swenson MD Unavailable [...] st Contact Info) Description 10/29/2022 Anti-coag visit [facility] [address] [place] [address] [phone] Catherine Hernández, PharmD [email or web address] Social History Tobacco Use Types Packs/Day [...] Description 03/08/2025 9:30 AM EST Pre-Admission Testing [facility] [address] [address] Irineo Ruff MD [address] [place] [address] [email or web address] 03/15/2025 Procedure Pass [facility] Endoscopy Department [address] [place] [address] 03/15/2025 7:30 AM EST Hospital Encounter [facility] Endoscopy Department [address] [place] [address] Irineo Ruff MD [address] [place] [address] [email or web address] 03/15/2025 7:30 AM EST - 03/15/2025 8:15 AM EST Surgery [facility] Endoscopy Department [address] [place] [address] Irineo Ruff MD [address] [place] [address] [place] [address] [email or web address] COLONOSCOPY Scheduled Procedures [...] documented as of this encounter Care Teams Electronic Publisher Relationship Specialty Start Date End Date Laura Mock MD, DMD [address] [address] [email or web address] PCP - General Internal Medicine 06/04/21 11/11/23 Pcp, Unknown PCP - General 11/12/23 11/16/23 Laura Mock MD, DMD [address] [address] [email or web address] PCP - General Internal Medicine 11/17/23 12/28/23 Pcp, Unknown PCP - General 02/28/24 03/04/24 Nicole Newell MD [address] [place] [address] [id number] PCP - General 03/05/24 05/17/24 Laura Mock MD, DMD [address] [address] [email or web address] du PCP - General Internal Medicine 05/18/24 Rina Swenson MD Psychiatry 07/09/17 Laura Mock MD, DMD [address] [address] [email or web address] du Partners Attributed Provider 09/01/21 07/03/23 Laura Mock MD, DMD [address] [address] [email or web address] du Insurance Assigned Provider 05/31/23 03/01/24 Jakob Bob MD [address] [place] [address] [email or web address] Cardiology 08/22/23 Jose Cruz MD [address] [place] [address] Cardiology 08/22/23 Laura Mock MD, DMD [address] [address] [email or web address] Partners Attributed Provider 09/01/21 07/03/23 [facility] [phone]. Consulting Provider 08/22/23 [facility] Connect 12/24/23 03/11/24 Cyril Morales [address] [place] [address] Nurse Practitioner 02/27/24 documented as of this encounter Additional Source Comments The information contained in this document represents components of the legal health record. It is not the complete legal health record.[facility]
--- OUTSIDE RECORDS SUMMARY | 2025-02-09 20:09 | XMS_ITS | Encounter Summary ---
Author Organization [facility] Address [facility] [employer] [address] [address] Phone Care Team Providers Care Monogram Machine Operator Name Role Phone Rina Swenson [...] Description 03/08/2025 9:30 AM EST Pre-Admission Testing [address] [address] Irineo Ruff MD [address] [place] [address] [email or web address] 03/15/2025 Procedure Pass [facility] Endoscopy Department [address] [place] [address] 03/15/2025 7:30 AM EST Hospital Encounter [facility] Endoscopy Department [address] [place] [address] Irineo Ruff MD [address] [place] [address] [email or web address]@[facility] 03/15/2025 7:30 AM EST - 03/15/2025 8:15 AM EST Surgery [facility] Endoscopy Department [address] [place] [address] Irineo Ruff MD [address] [place] [address] [email or web address] [facility] COLONOSCOPY Scheduled Procedures Name Priority Associated Diagnoses [...] documented as of this encounter Care Teams Monogram Machine Operator Relationship Specialty Start Date End Date Laura Mock MD, DMD [address] [address] [email or web address] du PCP - General Internal Medicine 06/04/21 11/11/23 Pcp, Unknown PCP - General 11/12/23 11/16/23 Laura Mock MD, DMD [address] [address] [email or web address] du PCP - General Internal Medicine 11/17/23 12/28/23 Pcp, Unknown PCP - General 02/28/24 03/04/24 [place] [address] [address] PCP - General 03/05/24 05/17/24 Laura Mock MD, DMD [address] [address] [email or web address] du PCP - General Internal Medicine 05/18/24 Rina Swenson MD Psychiatry 07/09/17 Laura Mock MD, DMD [address] [address] [email or web address] du Partners Attributed Provider 09/01/21 07/03/23 Laura Mock MD, DMD [address] [address] [email or web address] du Insurance Assigned Provider 05/31/23 03/01/24 Jakob Bob MD [address] [place] [address] [email or web address] Cardiology 08/22/23 Jose Cruz MD [address] [place] [address] Cardiology 08/22/23 Laura Mock MD, DMD [address] [address] [email or web address] du Partners Attributed Provider 09/01/21 07/03/23 [place] [facility] [phone]. Consulting Provider 08/22/23 [facility] Connect 12/24/23 03/11/24 Cyril Morales [address] [place] [phone] Nurse Practitioner 02/27/24 documented as of this encounter Additional Source Comments The information contained in this document represents components of the legal health record. It is not the complete legal health record.[facility]
--- OUTSIDE RECORDS SUMMARY | 2025-02-09 20:09 | XMS_ITS | Encounter Summary ---
Author Organization [facility] Address [address] [facility] [address] [place] [address] Phone Care Team Providers Care Pool Finisher Name Role Phone Rina Swenson MD Unavailable Laura Mock MD, DMD Primary Car e Provider Laura Mock MD, DMD Unavailable Laura Mock MD, DMD Unavailable Jakob Bob MD Unavailable [phone] Jose Cruz MD Unavailable Laura Mock MD, DMD Unavailable Pcp, Unknown Primary Care Provider UnavailLaura Ascencio MD, DMD Primary Car e Provider Pcp, Unknown Primary Care Provider UnavailNicole Arguello MD Primary Care Provide r Laura Mock MD, DMD Primary Car e Provider Encounter Details Date Type Department Care Team (Late st Contact Info) Description 05/27/2023 Procedure Pass [facility] Endoscopy Department [address] [place] [address] Social History Tobacco Use Types Packs/Day Years [...] Description 03/08/2025 9:30 AM EST Pre-Admission Testing [address] [address] Irineo Ruff MD [address] [place] [address] [email or web address] 03/15/2025 Procedure Pass [facility] Endoscopy Department [address] [place] [address] 03/15/2025 7:30 AM EST Hospital Encounter [facility] Endoscopy Department [address] [place] [address] Irineo Ruff MD [address] [place] [address] [email or web address] 03/15/2025 7:30 AM EST - 03/15/2025 8:15 AM EST Surgery [facility] Endoscopy Department [address] [place] [address] Irineo Ruff MD [address] [place] [address] [email or web address] COLONOSCOPY Scheduled Procedures Name Priority Associated [...] documented as of this encounter Care Teams Pool Finisher Relationship Specialty Start Date End Date Laura Mock MD, DMD [address] [address] [email or web address] PCP - General Internal Medicine 06/04/21 11/11/23 Pcp, Unknown PCP - General 11/12/23 11/16/23 Laura Mock MD, DMD [address] [address] [email or web address] PCP - General Internal Medicine 11/17/23 12/28/23 Pcp, Unknown PCP - General 02/28/24 03/04/24 Nicole Newell MD [address] [place] [address] PCP - General 03/05/24 05/17/24 Laura Mock MD, DMD [address] [address] [email or web address] du PCP - General Internal Medicine 05/18/24 Rina Swenson MD Psychiatry 07/09/17 Laura Mock MD, DMD [address] [address] [email or web address] Partners Attributed Provider 09/01/21 07/03/23 Laura Mock MD, DMD [address] [address] [email or web address] du Insurance Assigned Provider 05/31/23 03/01/24 Jakob Bob MD [address] [place] [address] [email or web address] Cardiology 08/22/23 Jose Cruz MD [address] [place] [address] [email or web address] Cardiology 08/22/23 Laura Mock MD, DMD [address] [address] [email or web address] Partners Attributed Provider 09/01/21 07/03/23 [place] [facility] [phone]. Consulting Provider 08/22/23 [facility] Connect 12/24/23 03/11/24 Cyril Morales [address] [place] [phone] Nurse Practitioner 02/27/24 documented as of this encounter Additional Source Comments The information contained in this document represents components of the legal health record. It is not the complete legal health record.[facility]
--- OUTSIDE RECORDS SUMMARY | 2025-02-09 20:09 | XMS_ITS | Encounter Summary ---
Author Organization [facility] Address [address] [facility] [address] [place] [address] Phone Care Team Providers Care Pathological Technician Name Role Phone Rina Swenson MD Unavailable Laura Mock MD, DMD Primary Car e Provider Laura Mock MD, DMD Unavailable Laura Mock MD, DMD Unavailable Jakob Bob MD Unavailable [phone] Jose Cruz MD Unavailable Laura Mock MD, DMD Unavailable Pcp, Unknown Primary Care Provider UnavailLaura Ascencio MD, DMD Primary Car e Provider Pcp, Unknown Primary Care Provider UnavailNicole Arguello MD Primary Care Provide r Laura Mock MD, DMD Primary Car e Provider Encounter Details Date Type Department Care Team (Late st Contact Info) Description 05/10/2022 Anti-coag visit [facility] [address] [place] [address] [phone] Melvin Stewart, [facility] [address] [place] [address] [email or web address] Social History Tobacco Use Types [...] Description 03/08/2025 9:30 AM EST Pre-Admission Testing [address] [address] Irineo Ruff MD [address] [place] [address] [email or web address] 03/15/2025 Procedure Pass [facility] Endoscopy Department [address] [place] [address] 03/15/2025 7:30 AM EST Hospital Encounter [facility] Endoscopy Department [address] [place] [address] Irineo Ruff MD [address] [place] [address] [email or web address]@[email or web address] 03/15/2025 7:30 AM EST - 03/15/2025 8:15 AM EST Surgery [facility] Endoscopy Department [address] [place] [address] Irineo Ruff MD [address] [place] [address] [email or web address] COLONOSCOPY Scheduled Procedures Name Priority Associated [...] documented as of this encounter Care Teams Pathological Technician Relationship Specialty Start Date End Date Laura Mock MD, DMD [address] [address] [email or web address] PCP - General Internal Medicine 06/04/21 11/11/23 Pcp, Unknown PCP - General 11/12/23 11/16/23 Laura Mock MD, DMD [address] [address] [email or web address] PCP - General Internal Medicine 11/17/23 12/28/23 Pcp, Unknown PCP - General 02/28/24 03/04/24 [place] [address] [place] [address] PCP - General 03/05/24 05/17/24 Laura Mock MD, DMD [address] [address] [email or web address] PCP - General Internal Medicine 05/18/24 Rina Swenson MD Psychiatry 07/09/17 Laura Mock MD, DMD [address] [address] [email or web address] Partners Attributed Provider 09/01/21 07/03/23 Laura Mock MD, DMD [address] [address] [email or web address] Insurance Assigned Provider 05/31/23 03/01/24 Jakob Bob MD [address] [place] [address] [email or web address] Cardiology 08/22/23 Jose Cruz MD [address] [place] [address] [email or web address] Cardiology 08/22/23 Laura Mock MD, DMD [address] [address] [email or web address] Partners Attributed Provider 09/01/21 07/03/23 [place] [facility] [phone]. Consulting Provider 08/22/23 [facility] Connect 12/24/23 03/11/24 Cyril Morales [address] [place] [address] Nurse Practitioner 02/27/24 documented as of this encounter Additional Source Comments The information contained in this document represents components of the legal health record. It is not the complete legal health record.[facility]
--- OUTSIDE RECORDS SUMMARY | 2025-02-09 20:09 | XMS_ITS | Encounter Summary ---
Author Organization [facility] Address [facility] [employer] [address] [address] Phone Care Team Providers Care Environmental Test Technician Name Role Phone Rina Swenson MD Unavailable Laura Mock MD, DMD Primary Car e Provider Laura Mock MD, DMD Unavailable Laura Mock MD, DMD Unavailable Jakob Bob MD Unavailable Jose Cruz MD Unavailable [phone] Laura Mock MD, DMD Unavailable Pcp, Unknown [...] Description 03/08/2025 9:30 AM EST Pre-Admission Testing [address] [address] Irineo Ruff MD [address] [place] [address] [email or web address] 03/15/2025 Procedure Pass [facility] Endoscopy Department [address] [place] [address] 03/15/2025 7:30 AM EST Hospital Encounter [facility] Endoscopy Department [address] [place] [address] Irineo Ruff MD [address] [place] [address] [email or web address] 03/15/2025 7:30 AM EST - 03/15/2025 8:15 AM EST Surgery [facility] Endoscopy Department [address] [place] [address] Irineo Ruff MD [address] [place] [address] [email or web address] [facility] COLONOSCOPY Scheduled Procedures Name Priority Associated [...] as of this encounter Care Teams Environmental Test Technician Relationship Specialty Start Date End Date Laura Mock MD, DMD [address] [address] [email or web address] PCP - General Internal Medicine 06/04/21 11/11/23 Pcp, Unknown PCP - General 11/12/23 11/16/23 Laura Mock MD, DMD [address] [address] [email or web address] du PCP - General Internal Medicine 11/17/23 12/28/23 Pcp, Unknown PCP - General 02/28/24 03/04/24 [place] [address] [address] PCP - General 03/05/24 05/17/24 Laura Mock MD, DMD [address] [address] [email or web address] PCP - General Internal Medicine 05/18/24 Rina Swenson MD Psychiatry 07/09/17 Laura Mock MD, DMD [address] [address] [email or web address] Attributed Provider 09/01/21 07/03/23 Laura Mock MD, DMD [address] [address] [email or web address] Insurance Assigned Provider 05/31/23 03/01/24 Jakob Bob MD [address] [place] [address] [email or web address] Cardiology 08/22/23 Jose Cruz MD [address] [place] [address] Cardiology 08/22/23 Laura Mock MD, DMD [address] [address] [email or web address] Partners Attributed Provider 09/01/21 07/03/23 [place] [facility] [phone]. Consulting Provider 08/22/23 [facility] Connect 12/24/23 03/11/24 Cyril Morales [address] [place] [phone] Nurse Practitioner 02/27/24 documented as of this encounter Additional Source Comments The information contained in this document represents components of the legal health record. It is not the complete legal health record.[facility]
--- OUTSIDE RECORDS SUMMARY | 2025-02-09 20:09 | XMS_ITS | Encounter Summary ---
Author Organization [facility] Address [address] [facility] [address] [place] [address] Phone Care Team Providers Care Emergency Medical Service Coordinator Name Role Phone Rina Swenson MD Unavailable [phone] Laura Mock MD, DMD Primary Car e Provider Laura Mock MD, DMD Unavailable Laura Mock MD, DMD Unavailable Jakob Bob MD Unavailable Jose Cruz MD Unavailable [phone] Laura Mock MD, DMD Unavailable Pcp, Unknown Primary Care Provider UnavailLaura Ascencio MD, DMD Primary Car e Provider Pcp, Unknown Primary Care Provider UnavailNicole Arguelol MD Primary Care Provide r Laura Mock MD, DMD Primary Car e Provider Encounter Details Date Type Department Care Team (Late st Contact Info) Description 10/26/2022 Anti-coag visit [facility] [address] [place] [address] [phone] Melvin Stewart, [facility] [address] [place] [address] [email or web address] Social History Tobacco Use Types Packs/Day Years [...] Description 03/08/2025 9:30 AM EST [facility] [address] [facility] 2nd [place] [address] Irineo Ruff MD [address] [place] [address] [place] [address] [email or web address] 03/15/2025 Procedure Pass [facility] Endoscopy Department [address] [place] [address] 03/15/2025 7:30 AM EST Hospital Encounter [facility] Endoscopy Department [address] [place] [address] Irineo Ruff MD [address] [place] [address] [place] [address] [email or web address] 03/15/2025 7:30 AM EST - 03/15/2025 8:15 AM EST Surgery [facility] Endoscopy Department [address] [place] [address] Irineo Ruff MD [address] [place] [address] [place] [address] [email or web address] COLONOSCOPY Scheduled Procedures [...] as of this encounter Care Teams Emergency Medical Service Coordinator Relationship Specialty Start Date End Date Laura Mock MD, DMD [address] [address] [email or web address] PCP - General Internal Medicine 06/04/21 11/11/23 Pcp, Unknown PCP - General 11/12/23 11/16/23 Laura Mock MD, DMD 1 [facility] [address] [place] [address] [email or web address] PCP - General Internal Medicine 11/17/23 12/28/23 Pcp, Unknown PCP - General 02/28/24 03/04/24 Nicole Newell MD [address] [place] [address] PCP - General 03/05/24 05/17/24 Laura Mock MD, DMD [address] [address] [email or web address] PCP - General Internal Medicine 05/18/24 Rina Swenson MD Psychiatry 07/09/17 Laura Mock MD, DMD [address] [place] [address] [email or web address] Partners Attributed Provider 09/01/21 07/03/23 Laura Mock MD, DMD [address] [address] [email or web address] Insurance Assigned Provider 05/31/23 03/01/24 Jakob Bob MD [address] [place] [address] [email or web address] Cardiology 08/22/23 Jose Cruz MD [address] [place] [address] Cardiology 08/22/23 Laura Mock MD, DMD [address] [place] [address] [email or web address] [employer] Attributed Provider 09/01/21 07/03/23 [facility] [phone]. Consulting Provider 08/22/23 [facility] Connect 12/24/23 03/11/24 Cyril Morales [address] [place] [phone] Nurse Practitioner 02/27/24 documented as of this encounter Additional Source Comments The information contained in this document represents components of the legal health record. It is not the complete legal health record.[facility]
--- OUTSIDE RECORDS SUMMARY | 2025-02-09 20:09 | XMS_ITS | Encounter Summary ---
Author Organization [facility] Address [address] [employer] [facility] [address] [place] [address] Phone Care Team Providers Care Coarse Wire Drawer Name Role Phone Rina Swenson MD Unavailable Laura Mock MD, DMD Primary Car e Provider Laura Mock MD, DMD Unavailable Laura Mock MD, DMD Unavailable Jakob Bob MD Unavailable [phone] Jose Cruz MD Unavailable [phone] Laura Mock MD, DMD Unavailable Pcp, Unknown Primary Care Provider UnavailLaura Ascencio MD, DMD Primary Car e Provider Pcp, Unknown Primary Care Provider UnavailNicole Arguello MD Primary Care Provide r Laura Mock MD, DMD Primary Car e Provider Encounter Details Date Type Department Care Team (Late st Contact Info) Description 03/23/2023 Anti-coag visit [facility] [address] [place] [address] Purvi Lawler, PharmD [address] [place] [address] [email or web address] Social History Tobacco Use Types [...] Description 03/08/2025 9:30 AM EST Pre-Admission Testing [facility] [address] [address] Irineo Ruff MD [address] [place] [address] [place] [address] [email or web address] 03/15/2025 Procedure Pass [facility] Endoscopy Department [address] [place] [address] 03/15/2025 7:30 AM EST Hospital Encounter [facility] Endoscopy Department [address] [place] [address] Irineo Ruff MD [address] [place] [address] [place] [address] [email or web address] 03/15/2025 7:30 AM EST - 03/15/2025 8:15 AM EST Surgery [facility] Endoscopy Department [address] [place] [address] Irineo Ruff MD [address] [place] [address] [place] [address] [email or web address] COLONOSCOPY Scheduled Procedures Name Priority Associated [...] documented as of this encounter Care Teams Coarse Wire Drawer Relationship Specialty Start Date End Date Laura Mock MD, DMD [address] [address] [email or web address] du PCP - General Internal Medicine 06/04/21 11/11/23 Pcp, Unknown PCP - General 11/12/23 11/16/23 Laura Mock MD, DMD [address] [address] [email or web address] PCP - General Internal Medicine 11/17/23 12/28/23 Pcp, Unknown PCP - General 02/28/24 03/04/24 [place] [address] [address] PCP - General 03/05/24 05/17/24 Laura Mock MD, DMD [address] [address] [email or web address] PCP - General Internal Medicine 05/18/24 Rina Swenson MD Psychiatry 07/09/17 Laura Mock MD, DMD [address] [address] [email or web address] Partners Attributed Provider 09/01/21 07/03/23 Laura Mock MD, DMD [address] [address] [email or web address] Insurance Assigned Provider 05/31/23 03/01/24 Jakob Bob MD [address] [place] [address] [email or web address] Cardiology 08/22/23 Jose Cruz MD [address] [place] [address] Cardiology 08/22/23 Laura Mock MD, DMD [address] [address] [email or web address] Partners Attributed Provider 09/01/21 07/03/23 [facility] [phone]. Consulting Provider 08/22/23 [facility] Connect 12/24/23 03/11/24 Cyril Morales [address] [place] [phone] Nurse Practitioner 02/27/24 documented as of this encounter Additional Source Comments The information contained in this document represents components of the legal health record. It is not the complete legal health record.[facility]
--- OUTSIDE RECORDS SUMMARY | 2025-02-09 20:09 | XMS_ITS | Encounter Summary ---
Author Organization [facility] Address [facility] [employer] [facility] [address] [place] [address] Phone Care Team Providers Care Stone Splitter Name Role Phone Rina Swenson MD Unavailable [phone] Laura Mock MD, DMD Primary Car e [...] st Contact Info) Description 12/25/2022 Transcribe Orders [facility] [address] [place] [address] Laura Mock MD, DMD 1 [facility] [address] [place] [address] [email or web address] Breast screening (Primary Dx) Social [...] Description 03/08/2025 9:30 AM EST Pre-Admission Testing [facility] 45 [facility] 2nd [place] [address] Irineo Ruff MD [address] [place] [address] [email or web address] 03/15/2025 Procedure Pass [facility] Endoscopy Department [address] [place] [address] 03/15/2025 7:30 AM EST Hospital Encounter [facility] Endoscopy Department [address] [place] [address] Irineo Ruff MD [address] [place] [address] [place] [address] [email or web address] 03/15/2025 7:30 AM EST - 03/15/2025 8:15 AM EST Surgery [facility] Endoscopy Department [address] [place] [address] Irineo Ruff MD [address] [place] [address] [place] [address] [email or web address] COLONOSCOPY Scheduled Procedures Name Priority Associated [...] as of this encounter Care Teams Stone Splitter Relationship Specialty Start Date End Date Laura Mock MD, DMD [address] [address] [email or web address] PCP - General Internal Medicine 06/04/21 11/11/23 Pcp, Unknown PCP - General 11/12/23 11/16/23 Laura Mock MD, DMD [address] [address] [email or web address] du PCP - General Internal Medicine 11/17/23 12/28/23 Pcp, Unknown PCP - General 02/28/24 03/04/24 [place] [address] [place] [address] PCP - General 03/05/24 05/17/24 Laura Mock MD, DMD [address] [address] [email or web address] du PCP - General Internal Medicine 05/18/24 Rina Swenson MD Psychiatry 07/09/17 Laura Mock MD, DMD [address] [address] [email or web address] Partners Attributed Provider 09/01/21 07/03/23 Laura Mock MD, DMD [address] [address] [email or web address] Insurance Assigned Provider 05/31/23 03/01/24 Jakob Bob MD [address] [place] [address] [place] [address] [email or web address] Cardiology 08/22/23 Jose Cruz MD [address] [place] [address] Cardiology 08/22/23 Laura Mock MD, DMD [address] [address] [email or web address] Attributed Provider 09/01/21 07/03/23 [facility] [phone]. Consulting Provider 08/22/23 [facility] Connect 12/24/23 03/11/24 Cyril Morales [address] [place] [address] Nurse Practitioner 02/27/24 documented as of this encounter Additional Source Comments The information contained in this document represents components of the legal health record. It is not the complete legal health record.[facility]
--- OUTSIDE RECORDS SUMMARY | 2025-02-09 20:09 | XMS_ITS | Encounter Summary ---
Author Organization [facility] Address [address] [employer] [facility] [address] [place] [address] Phone Care Team Providers Care Research Assistant Professor Name Role Phone Rina Swenson [...] st Contact Info) Description 08/08/[address] [facility] [address] [place] [address] [id number] Kenyatta Gamez, PharmD [email or web address] Social History Tobacco Use Types [...] Description 03/08/2025 9:30 AM EST Pre-Admission Testing [address] 2nd [place] [address] Irineo Ruff MD [address] [place] [address] [email or web address] 03/15/2025 Procedure Pass [facility] Endoscopy Department [address] [place] [address] 03/15/2025 7:30 AM EST Hospital Encounter [facility] Endoscopy Department [address] [place] [address] Irineo Ruff MD [address] [place] [address] [email or web address] 03/15/2025 7:30 AM EST - 03/15/2025 8:15 AM EST Surgery [facility] Endoscopy Department [address] [place] [address] Irineo Ruff MD [address] [place] [address], [place] [address] [email or web address] COLONOSCOPY Scheduled Procedures Name Priority Associated [...] documented as of this encounter Care Teams Research Assistant Professor Relationship Specialty Start Date End Date Laura Mock MD, DMD [address] [address] [email or web address] PCP - General Internal Medicine 06/04/21 11/11/23 Pcp, Unknown PCP - General 11/12/23 11/16/23 Laura Mock MD, DMD [address] [address] [email or web address] PCP - General Internal Medicine 11/17/23 12/28/23 Pcp, Unknown PCP - General 02/28/24 03/04/24 Nicole Newell MD [address] [place] [address] PCP - General 03/05/24 05/17/24 Laura Mock MD, DMD [address] [address] [email or web address] du PCP - General Internal Medicine 05/18/24 Rina Swenson MD Psychiatry 07/09/17 Laura Mock MD, DMD [address] [address] [email or web address] Partners Attributed Provider 09/01/21 07/03/23 Laura Mock MD, DMD [address] [address] [email or web address] du Insurance Assigned Provider 05/31/23 03/01/24 Jakob Bob MD [address] [place] [address] [email or web address] Cardiology 08/22/23 Jose Cruz MD [address] [place] [address] Cardiology 08/22/23 Laura Mock MD, DMD [address] [address] [email or web address] Partners Attributed Provider 09/01/21 07/03/23 [facility] [phone]. Consulting Provider 08/22/23 [facility] Connect 12/24/23 03/11/24 Cyril Morales [address] [place] [address] Nurse Practitioner 02/27/24 documented as of this encounter Additional Source Comments The information contained in this document represents components of the legal health record. It is not the complete legal health record.[facility]
--- OUTSIDE RECORDS SUMMARY | 2025-02-09 20:09 | XMS_ITS | Clinical Summary ---
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 No [...] given a the option to go to [facility] Coumadin clinic or to go back [...] 01/28/2025 Ancillary Orders [facility] [address] [place] [address] Karena Betancur MD 01/28/2025 Ancillary Orders [facility] [address] [place] [address] Karena Betancur MD 01/21/2025 Telephone [facility] [address] [address] Angely Morgan PA-C 12/30/2024 Telephone [facility] [address] 2nd [place] [address] Laura Mock MD, DMD Medication Question from [...] Description 03/08/2025 9:30 AM EST Pre-Admission Testing [address] 2nd [place] [address] Irineo Ruff MD [address] [place] [address] [email or web address] 03/15/2025 Procedure Pass [facility] Endoscopy Department [address] [place] [address] 03/15/2025 7:30 AM EST Hospital Encounter [facility] Endoscopy Department [address] [place] [address] Irineo Ruff MD [address] [place] [address] [place] [address] [email or web address] 03/15/2025 7:30 AM EST - 03/15/2025 8:15 AM EST Surgery [facility] Endoscopy Department [address] [place] [address] Irineo Ruff MD [address] [place] [address] [place] [address] [email or web address] COLONOSCOPY Scheduled Procedures Name Priority Associated [...] this topic Medical Devices Implanted Type Area Auto Design Detailer Device Identifier Shelf Expiration Date Model / Serial / Lot St Drew Aortic Valve 23mm-04/19/2002 Implanted:04/19/19 03 (Quantity not on file) Description:Per OP report fr om 04/19/02: Pt has a 23mm St Drew Aortic Valve replacement Per planning manager: cond to 1.5T and 3T (see scanned in document)-[id number] 05/19/18 Procedures Procedure Name Priority Date/Time Associated Diagnosis Comments OUTSIDE IMAGING 02/09/2025 OUTSIDE IMAGING 02/09/2025 BASIC METABOLIC PANEL (BMP) STAT 12/04/2023 1:58 PM EDT BD DXA AXIAL (SPINE) WITH HIP Routine 01/24/2021 8:57 AM EST Asymptomatic menopausal state Age-related osteoporosis without current pathological fracture HM COLONOSCOPY FOR RESULT ENTRY ONLY Routine 06/24/2014 from Last 3 Months or Most Recently Relevant to Health Maintenance Results * Outside Imaging Report Only (02/09/2025) us Scanning Interface Provider IMG XR CHEST Neela l Result * Outside Imaging Report Only (02/09/2025) us Scanning Interface Provider IMG XR CHEST Neela l Result * Basic metabolic panel (12/04/2023 1:58 PM EDT) SODIUM 139 136 - 145 mmol/L [facility] POTASSIUM 4.8 3.4 - 5.1 mmol/L [facility] CHLORIDE 100 98 - 107 mmol/L [facility] CO2 28 22 - 31 mmol/L [facility] BUN 18 6 - 23 mg/dL [facility] CREATININE 0.71 0.50 - 1.20 mg/dL [facility] GLUCOSE 94 70 - 100 mg/dL [facility] CALCIUM 9.6 8.8 - 10.7 mg/dL [facility] EGFR 83 >59 mL/min/1.7 3m2 [facility] Comment:Estimated glomerular filtration rate calculated using the CKD-EPI refit equation. ANION GAP 11 7 - 17 mmol/L [facility] Blood 12/04/2023 1:58 PM EDT 12/04/2023 2:02 PM EDT us Jim Zacarias MD LAB BLOOD BKR ORDERA BLES Final Result Performing Organization Address City/State/[facility] Co de Phone Number [facility] [address] [place] [address] * BD DXA AXIAL (SPINE) WITH HIP [...] bone mineral density was calculated at 0.409 gm/dy5wxly a T- score of -4 falling within [...] Maintenance Insurance MEDICARE PART A & B [employer] MEDEX SUPPLEMENT MEDICARE PART A & B [employer] MEDEX SUPPLEMENT MEDICARE PART A & B [employer] MEDEX SUPPLEMENT MEDICARE PART A & B [employer] MEDEX SUPPLEMENT MEDICARE PART A & B [employer] MEDEX SUPPLEMENT MEDICARE PART A & B [employer] MEDEX SUPPLEMENT MEDICARE PART A & B [employer] MEDEX SUPPLEMENT MEDICARE PART A & B [employer] MEDEX SUPPLEMENT MEDICARE PART A & B [employer] MEDEX SUPPLEMENT Advance Directives For more information, please contact: [phone] (9AM - 5PM Nataliya/[facility], Friday-Friday) Documents on File Type Date Recorded Patient Postbed Stitcher Expl anation Healthcare Proxy 11/18/2023 2:08 PM Healthcare Proxy 11/14/2023 7:46 AM Health care Proxy * Full Code (Latest Code Status on File) Date Activated Date Inactivated Comments 11/12/2023 10:33 PM Question Answer Comments Code Status Confirmed With: Other (specify below ) Code Discussion Comments: Presumed Care Teams Development Chemist Relationship Specialty Start Date End Date Laura Mock MD, DMD 1 [facility] [address] [place] [address] [email or web address], [facility] PCP - General Internal Medicine 05/18/24 Rina Swenson MD Psychiatry 07/09/17 Jakob Bob MD [address] [address] [email or web address] Cardiology 08/22/23 Jose Cruz MD 22 [facility], [facility] [address] [place] [address] Cardiology 08/22/23 [facility] [phone]. Consulting Provider 08/22/23 Cyril Morales [address] [place] [address] Nurse Practitioner 02/27/24 Additional Source Comments The information contained in this document represents components of the legal health record. It is not the complete legal health record.[facility]
--- OUTSIDE RECORDS SUMMARY | 2025-02-09 20:09 | XMS_ITS | Encounter Summary ---
Author Organization [facility] Address [address] [employer] [facility] [address] [place] [address] Phone Care Team Providers Care Investor Relations Specialist Name Role Phone Rina Swenson MD Unavailable [phone] Laura Mock MD, DMD Unavailable Jakob Bob MD Unavailable Jose Cruz MD Unavailable Laura Mock MD, DMD Primary Car e Provider Pcp, Unknown Primary Care Provider Unavailmarco e Nicole Newell MD Primary Care Provide r Laura Mock MD, DMD Primary Car e Provider Encounter Details Date Type Department Care Team (Late st Contact Info) Description 12/04/2023 Procedure Pass [facility] Periop [address] [place] [address] Social History Tobacco Use Types Packs/Day Years [...] Description 03/08/2025 9:30 AM EST Pre-Admission Testing [address] [address] Irineo Ruff MD [address] [place] [address] [email or web address] 03/15/2025 Procedure Pass [facility] Endoscopy Department [address] [place] [address] 03/15/2025 7:30 AM EST Hospital Encounter [facility] Endoscopy Department [address] [place] [address] Irineo Ruff MD [address] [place] [address] [email or web address]@[email or web address] 03/15/2025 7:30 AM EST - 03/15/2025 8:15 AM EST Surgery [facility] Endoscopy Department [address] [place] [address] Irineo Ruff MD [address] [place] [address], [place] [address] [email or web address] COLONOSCOPY Scheduled Procedures Name Priority Associated Diagnoses Date/Ti me COLONOSCOPY Abnormal colonoscopy 03/15/2025 7:30 AM EST documented as of this encounter Visit Diagnoses Not on filedocumented in this encounter Additional Health Concerns Assessment Noted Time PHQ-9 Depression Total Score: 17 023 11:28 AM EST PHQ-2 Depression Total Score: 2 10/10/19 23 11:28 AM EDT documented as of this encounter Care Teams Investor Relations Specialist Relationship Specialty Start Date End Date Laura Mock MD, DMD [address] [address] [email or web address] PCP - General Internal Medicine 11/17/23 12/28/23 Pcp, Unknown PCP - General 02/28/24 03/04/24 [place] New[place] [address] [place] [address] PCP - General 03/05/24 05/17/24 Laura Mock MD, DMD [address] [address] [email or web address] PCP - General Internal Medicine 05/18/24 Rina Swenson MD Psychiatry 07/09/17 Laura Mock MD, DMD [address] [address] [email or web address] Insurance Assigned Provider 05/31/23 03/01/24 Jakob Bob MD [facility] [place] [address] [email or web address] Cardiology 08/22/23 Jose Cruz MD [address] [place] [address], [address] [place] [address] [email or web address] Cardiology 08/22/23 [facility] [phone]. Consulting Provider 08/22/23 [facility] Connect 12/24/23 03/11/24 Cyril Morales [address] [place] [address] Nurse Practitioner 02/27/24 documented as of this encounter Additional Source Comments The information contained in this document represents components of the legal health record. It is not the complete legal health record.[facility]
--- OUTSIDE RECORDS SUMMARY | 2025-02-09 20:09 | XMS_ITS | Encounter Summary ---
Author Organization [facility] Address [facility] [employer] [address] [address] Phone Care Team Providers Care Boiler/Chiller Operator Name Role Phone Artie Meehan MD Unavailable Rina Swenson MD Unavailable Laura Mock MD, DMD Primary Car e Provider Laura Mock MD, DMD Unavailable Laura Mock MD, DMD Unavailable Jakob Bob MD Unavailable Jose Cruz MD Unavailable [phone] Laura Mock MD, DMD Unavailable Pcp, Unknown [...] 03/08/2025 9:30 AM EST Pre-Admission Testing [address] 2nd [place] [address] Irineo Ruff MD [address] [place] [address] [email or web address] 03/15/2025 Procedure Pass [facility] Endoscopy Department [address] [place] [address] 03/15/2025 7:30 AM EST Hospital Encounter [facility] Endoscopy Department [address] [place] [address] Irineo Ruff MD [address] [place] [address] [email or web address] 03/15/2025 7:30 AM EST - 03/15/2025 8:15 AM EST Surgery [facility] Endoscopy Department [address] [place] [address] Irineo Ruff MD [address] [place] [address] [email or web address] COLONOSCOPY Scheduled Procedures [...] documented as of this encounter Care Teams Boiler/Chiller Operator Relationship Specialty Start Date End Date Laura Mock MD, DMD [address] [address] [email or web address] PCP - General Internal Medicine 06/04/21 11/11/23 Pcp, Unknown PCP - General 11/12/23 11/16/23 Laura Mock MD, DMD [address] [address] [email or web address] PCP - General Internal Medicine 11/17/23 12/28/23 Pcp, Unknown PCP - General 02/28/24 03/04/24 [place] [address] [address] PCP - General 03/05/24 05/17/24 Laura Mock MD, DMD [address] [address] [email or web address] PCP - General Internal Medicine 05/18/24 Artie Meehan MD [address] [place] [address] [place] [address] Internal Medicine 10/26/17 04/23/22 Rina Swenson MD [address] [place] [address] [place] [address] Psychiatry 07/09/17 Laura Mock MD, DMD 1 [facility] [address] [place] [address] [email or web address] Partners Attributed Provider 09/01/21 07/03/23 Laura Mock MD, DMD [address] [address] [email or web address] du Insurance Assigned Provider 05/31/23 03/01/24 Jakob Bob MD [address] [place] [address] [email or web address] Cardiology 08/22/23 Jose Cruz MD [address] [place] [address] Cardiology 08/22/23 Laura Mock MD, DMD [address] [address] [email or web address] Partners Attributed Provider 09/01/21 07/03/23 [facility] [phone]. Consulting Provider 08/22/23 [facility] Connect 12/24/23 03/11/24 Cyril Morales [address] [place] [phone] Nurse Practitioner 02/27/24 documented as of this encounter Additional Source Comments The information contained in this document represents components of the legal health record. It is not the complete legal health record.[facility]
--- OUTSIDE RECORDS SUMMARY | 2025-02-09 20:09 | XMS_ITS | Encounter Summary ---
Author Organization [facility] Address Formerly [facility] [employer] [address] [address] Phone Care Team Providers Care Stone Hand Name Role Phone Rina Swenson MD [...] 03/08/2025 9:30 AM EST Pre-Admission Testing [address] 2nd [place] [address] Irineo Ruff MD [address] [place] [address] [email or web address] 03/15/2025 Procedure Pass [facility] Endoscopy Department [address] [place] [address] 03/15/2025 7:30 AM EST Hospital Encounter [facility] Endoscopy Department [address] [place] [address] Irineo Ruff MD [address] [place] [address] [email or web address] 03/15/2025 7:30 AM EST - 03/15/2025 8:15 AM EST Surgery [facility] Endoscopy Department [address] [place] [address] Irineo Ruff MD [address] [place] [address] [email or web address] COLONOSCOPY Scheduled Procedures Name Priority Associated Diagnoses [...] as of this encounter Care Teams Stone Hand Relationship Specialty Start Date End Date Laura Mock MD, DMD [address] [address] [email or web address] du PCP - General Internal Medicine 06/04/21 11/11/23 Pcp, Unknown PCP - General 11/12/23 11/16/23 Laura Mock MD, DMD [address] [address] [email or web address] du PCP - General Internal Medicine 11/17/23 12/28/23 Pcp, Unknown PCP - General 02/28/24 03/04/24 Nicole Newell MD [address] [place] [address] PCP - General 03/05/24 05/17/24 Laura Mock MD, DMD [address] [address] [email or web address] du PCP - General Internal Medicine 05/18/24 Rina Swenson MD Psychiatry 07/09/17 Laura Mock MD, DMD [address] [address] [email or web address]. du Partners Attributed Provider 09/01/21 07/03/23 Laura Mock MD, DMD 1 [facility] [address] [place] [address] [email or web address]. du Insurance Assigned Provider 05/31/23 03/01/24 Jakob Bob MD [address] [place] [address] [address] [place] [address] [email or web address] Cardiology 08/22/23 Jose Cruz MD [address] [place] [address] 301 [place] [address] Cardiology 08/22/23 Laura Mock MD, DMD [address] [address] [email or web address] du Partners Attributed Provider 09/01/21 07/03/23 [place] [facility] [phone]. Consulting Provider 08/22/23 [facility] Connect 12/24/23 03/11/24 Cyril Morales [address] [place] [address] Nurse Practitioner 02/27/24 documented as of this encounter Additional Source Comments The information contained in this document represents components of the legal health record. It is not the complete legal health record.[facility]
--- OUTSIDE RECORDS SUMMARY | 2025-02-09 20:09 | XMS_ITS | Encounter Summary ---
Author Organization [facility] Address [address] [employer] [facility] [address] [place] [address] Phone Care Team Providers Care Agent Broker Name Role Phone Artie Meehan MD Primary Care Provider [phone] Artie Meehan MD Unavailable Rina Swenson MD Unavailable Laura Mock MD, DMD Primary Car e Provider Laura Mock MD, DMD Unavailable Laura Mock MD, DMD Unavailable Jakob Bob MD Unavailable [phone] Jose Cruz MD Unavailable Laura Mock MD, DMD Unavailable Pcp, Unknown Primary Care Provider UnavailLaura Ascencio MD, DMD Primary Car e Provider Pcp, Unknown Primary Care Provider UnavailNicole Arguello MD Primary Care Provide r Laura Mock MD, DMD Primary Car e Provider Encounter Details Date Type Department Care Team (Late st Contact Info) Description 05/03/2021 Procedure Pass [facility] [address] [place] [address] Social History Tobacco Use Types Packs/Day Years [...] [facility] st Contact Info) Description 03/08/2025 9:30 AM EST Pre-Admission Testing [facility] 45 [facility] 2nd [place] [address] Irineo Ruff MD [address] [place] [address] [email or web address] 03/15/2025 Procedure Pass [facility] Endoscopy Department [address] [place] [address] 03/15/2025 7:30 AM EST Hospital Encounter [facility] Endoscopy Department [address] [place] [address] Irineo Ruff MD [address] [place] [address] [email or web address] 03/15/2025 7:30 AM EST - 03/15/2025 8:15 AM EST Surgery [facility] Endoscopy Department [address] [place] [address] Irineo Ruff MD [address] [place] [address] [email or web address] COLONOSCOPY [...] documented as of this encounter Care Teams Agent Broker Relationship Specialty Start Date End Date Artie Meehan MD [address] [place] [address] Dr Dior [address] [place] [address] PCP - General Internal Medicine 10/26/17 06/03/21 Laura Mock MD, DMD [address] [address] [email or web address] PCP - General Internal Medicine 06/04/21 11/11/23 Pcp, Unknown PCP - General 11/12/23 11/16/23 Laura Mock MD, DMD [address] [address] [email or web address] du PCP - General Internal Medicine 11/17/23 12/28/23 Pcp, Unknown PCP - General 02/28/24 03/04/24 [place] [address] [address] PCP - General 03/05/24 05/17/24 Laura Mock MD, DMD [address] [address] [email or web address] du PCP - General Internal Medicine 05/18/24 Artie Meehan MD [address] [place] [address] Dr Nichols [facility] [place] [address] Internal Medicine 10/26/17 04/23/22 Rina Swenson MD [address] [place] [address] [place] [address] Psychiatry 07/09/17 Laura Mock MD, DMD 1 [facility] [address] [place] [address] [email or web address] Partners Attributed Provider 09/01/21 07/03/23 Laura Mock MD, DMD [address] [address] [email or web address] du Insurance Assigned Provider 05/31/23 03/01/24 Jakob Bob MD [address] [place] [address] [place] [address] [email or web address] Cardiology 08/22/23 Jose Cruz MD [address] [place] [address], [facility] [address] [place] [address] Cardiology 08/22/23 Laura Mock MD, DMD 1 [facility] [address] [place] [address] [email or web address]. du Partners Attributed Provider 09/01/21 07/03/23 [facility] [phone]. Consulting Provider 08/22/23 [facility] Connect 12/24/23 03/11/24 Cyril Morales [address] [place] [phone] Nurse Practitioner 02/27/24 documented as of this encounter Additional Source Comments The information contained in this document represents components of the legal health record. It is not the complete legal health record.[facility]
--- OUTSIDE RECORDS SUMMARY | 2025-02-09 20:09 | XMS_ITS | Encounter Summary ---
Author Organization [facility] Address [address] [facility] [address] [place] [address] Phone Care Team Providers Care Lap Runner Name Role Phone Rina Swenson MD Unavailable [...] Procedure Pass [facility] [address] [place] [address] Social History Tobacco Use Types Packs/Day Years [...] 03/08/2025 9:30 AM EST Pre-Admission Testing [address]nd [place] [address] Irineo Ruff MD [address] [place] [address] [email or web address] 03/15/[address] [facility] Endoscopy Department [address] [place] [address] 03/15/2025 7:30 AM EST Hospital Encounter [facility] Endoscopy Department [address] [place] [address] Irineo Ruff MD [address] [place] [address] [email or web address]@[email or web address] 03/15/2025 7:30 AM EST - 03/15/2025 8:[address] [facility] Endoscopy Department [address] [place] [address] Irineo Ruff MD [address] [place] [address] [email or web address] COLONOSCOPY Scheduled Procedures Name [...] documented as of this encounter Care Teams Lap Runner Relationship Specialty Start Date End Date Laura Mock MD, DMD [address] [address] [email or web address]. du PCP - General Internal Medicine 06/04/21 11/11/23 Pcp, Unknown PCP - General 11/12/23 11/16/23 Laura Mock MD, DMD [address] [address] [email or web address]. du PCP - General Internal Medicine 11/17/23 12/28/23 Pcp, Unknown PCP - General 02/28/24 03/04/24 Nicole Newell MD [address] [place] [address] PCP - General 03/05/24 05/17/24 Laura Mock MD, DMD [address] [address] [email or web address].e du PCP - General Internal Medicine 05/18/24 Rina Swenson MD Psychiatry 07/09/17 Laura Mock MD, DMD [address] [address] [email or web address]. du Partners Attributed Provider 09/01/21 07/03/23 Laura Mock MD, DMD [address] [address] [email or web address].e du Insurance Assigned Provider 05/31/23 03/01/24 Jakob Bob MD [address] [place] [address] [email or web address] Cardiology 08/22/23 Jose Cruz MD [address] [place] [address] [email or web address] Cardiology 08/22/23 Laura Mock MD, DMD [address] [address] [email or web address].e du Partners Attributed Provider 09/01/21 07/03/23 [facility] [phone]. Consulting Provider 08/22/23 [facility] Connect 12/24/23 03/11/24 Cyril Morales [address] [place] [phone] Nurse Practitioner 02/27/24 documented as of this encounter Additional Source Comments The information contained in this document represents components of the legal health record. It is not the complete legal health record.[facility]
--- OUTSIDE RECORDS SUMMARY | 2025-02-09 20:09 | XMS_ITS | Encounter Summary ---
Author Organization [facility] Address [facility] [employer] [address] [address] Phone Care Team Providers Care Bruise Trimmer Name Role Phone Rina Swenson MD Unavailable Laura Mock MD, DMD Primary Car e Provider Laura Mock MD, DMD Unavailable Laura Mock MD, DMD Unavailable Jakob Bob MD Unavailable Jose Cruz MD Unavailable [phone] Laura Mock MD, DMD Unavailable Pcp, Unknown [...] 03/08/2025 9:30 AM EST Pre-Admission Testing [address] [address] Irineo Ruff MD [address] [place] [address] [email or web address] 03/15/[address] [facility] Endoscopy Department [address] [place] [address] 03/15/2025 7:30 AM EST Hospital Encounter [facility] Endoscopy Department [address] [place] [address] Irineo Ruff MD [address] [place] [address] WALI@[email or web address] 03/15/2025 7:30 AM EST - 03/15/2025 8:[address] [facility] Endoscopy Department [address] [place] [address] Irineo Ruff MD [address] [place] [address] [email or web address] COLONOSCOPY Scheduled Procedures Name Priority [...] documented as of this encounter Care Teams Bruise Trimmer Relationship Specialty Start Date End Date Laura Mock MD, DMD [address] [address] [email or web address] du PCP - General Internal Medicine 06/04/21 11/11/23 Pcp, Unknown PCP - General 11/12/23 11/16/23 Laura Mock MD, DMD [address] [address] [email or web address] du PCP - General Internal Medicine 11/17/23 12/28/23 Pcp, Unknown PCP - General 02/28/24 03/04/24 [place] [address] [address] PCP - General 03/05/24 05/17/24 Laura Mock MD, DMD [address] [address] [email or web address] du PCP - General Internal Medicine 05/18/24 Rina Swenson MD Psychiatry 07/09/17 Laura Mock MD, DMD [address] [address] [email or web address]. du Partners Attributed Provider 09/01/21 07/03/23 Luara Mock MD, DMD [address] [address] [email or web address] du Insurance Assigned Provider 05/31/23 03/01/24 Jakob Bob MD [address] [place] [address] [email or web address] Cardiology 08/22/23 Jose Cruz MD [address] [place] [address] Cardiology 08/22/23 Laura Mock MD, DMD [address] [address] [email or web address] du Partners Attributed Provider 09/01/21 07/03/23 [place] [facility] [phone]. Consulting Provider 08/22/23 [facility] Connect 12/24/23 03/11/24 Cyril Morales [address] [place] [phone] Nurse Practitioner 02/27/24 documented as of this encounter Additional Source Comments The information contained in this document represents components of the legal health record. It is not the complete legal health record.[facility]
--- OUTSIDE RECORDS SUMMARY | 2025-02-09 20:09 | XMS_ITS | Encounter Summary ---
Author Organization [facility] Address [address] [facility] [address] [place] [address] Phone Care Team Providers Care Medical Record Clerk Name Role Phone Rina Swenson MD [...] st Contact Info) Description 10/09/2022 Procedure Pass [facility] CT Imaging, [place] [address] [place] [address] Social History Tobacco Use Types Packs/Day Years [...] Pre-Admission Testing [facility] 45 [facility] 2nd [place] [address] Irineo Ruff MD [address] [place] [address] [email or web address] 03/15/2025 Procedure Pass [facility] Endoscopy Department [address] [place] [address] 03/15/2025 7:30 AM EST Hospital Encounter [facility] Endoscopy Department [address] [place] [address] Irineo Ruff MD [address] [place] [address] WALI@[email or web address] 03/15/2025 7:30 AM EST - 03/15/2025 8:15 AM EST Surgery [facility] Endoscopy Department [address] [place] [address] Irineo Ruff MD [address] [place] [address] [email or web address] COLONOSCOPY Scheduled Procedures Name Priority Associated [...] as of this encounter Care Teams Medical Record Clerk Relationship Specialty Start Date End Date Larua Mock MD, DMD [address] [address] [email or web address] PCP - General Internal Medicine 06/04/21 11/11/23 Pcp, Unknown PCP - General 11/12/23 11/16/23 Laura Mock MD, DMD [address] [address] [email or web address] PCP - General Internal Medicine 11/17/23 12/28/23 Pcp, Unknown PCP - General 02/28/24 03/04/24 Nicole Newell MD [address] [place] [address] PCP - General 03/05/24 05/17/24 Laura Mock MD, DMD [address] [address] [email or web address] du PCP - General Internal Medicine 05/18/24 Rina Swenson MD Psychiatry 07/09/17 Laura Mock MD, DMD [address] [address] [email or web address]. du Partners Attributed Provider 09/01/21 07/03/23 Laura Mock MD, DMD [address] [address] [email or web address] du Insurance Assigned Provider 05/31/23 03/01/24 Jakob Bob MD [address] [place] [address] [email or web address] Cardiology 08/22/23 Jose Cruz MD [address] [place] [address] Cardiology 08/22/23 Laura Mock MD, DMD [address] [address] [email or web address] Partners Attributed Provider 09/01/21 07/03/23 [place] [facility] [phone]. Consulting Provider 08/22/23 [facility] Connect 12/24/23 03/11/24 Cyril Morales [address] [place], [place] [phone] Nurse Practitioner 02/27/24 documented as of this encounter Additional Source Comments The information contained in this document represents components of the legal health record. It is not the complete legal health record.[facility]
--- OUTSIDE RECORDS SUMMARY | 2025-02-09 20:09 | XMS_ITS | Encounter Summary ---
Author Organization [facility] Address [address] [facility] [address] [place] [address] Phone Care Team Providers Care Direct Care Worker Name Role Phone Rina Swenson MD Unavailable [phone] Laura Mock MD, DMD Primary Car e [...] st Contact Info) Description 10/06/2022 Anti-coag visit [facility] [address] [place] [address] Abbie Prieto, PharmD [address] [address] [email or web address] Social History Tobacco Use Types Packs/Day [...] Description 03/08/2025 9:30 AM EST Pre-Admission Testing [facility] 45 [facility] 2nd [place] [address] Irineo Ruff MD [address] [place] [address] [place] [address] [email or web address] 03/15/2025 Procedure Pass [facility] Endoscopy Department [address] [place] [address] 03/15/2025 7:30 AM EST Hospital Encounter [facility] Endoscopy Department [address] [place] [address] Irineo Ruff MD [address] [place] [address] [place] [address] [email or web address] 03/15/2025 7:30 AM EST - 03/15/2025 8:15 AM EST Surgery [facility] Endoscopy Department [address] [place] [address] Irineo Ruff MD [address] [place] [address] [place] [address] [email or web address] COLONOSCOPY Scheduled Procedures [...] as of this encounter Care Teams Direct Care Worker Relationship Specialty Start Date End Date Laura Mock MD, DMD [address] [address] [email or web address] PCP - General Internal Medicine 06/04/21 11/11/23 Pcp, Unknown PCP - General 11/12/23 11/16/23 Laura Mock MD, DMD [address] [address] [email or web address] du PCP - General Internal Medicine 11/17/23 12/28/23 Pcp, Unknown PCP - General 02/28/24 03/04/24 [place] [address] [place] [phone] PCP - General 03/05/24 05/17/24 Laura Mock MD, DMD 1 [facility] [address] [place] [address] [email or web address] du PCP - General Internal Medicine 05/18/24 Rina Swenson MD Psychiatry 07/09/17 Laura Mock MD, DMD [address] [address] [email or web address]. du Partners Attributed Provider 09/01/21 07/03/23 Laura Mock MD, DMD [address] [address] [email or web address] du Insurance Assigned Provider 05/31/23 03/01/24 Jakob Bob MD [address] [place] [address] [email or web address] Cardiology 08/22/23 Jose Cruz MD [address] [address] Cardiology 08/22/23 Laura Mock MD, DMD [address] [address] [email or web address]. du Partners Attributed Provider 09/01/21 07/03/23 [place] [facility] [phone]. Consulting Provider 08/22/23 [facility] Connect 12/24/23 03/11/24 Cyril Morales [facility] [place] [address] Nurse Practitioner 02/27/24 documented as of this encounter Additional Source Comments The information contained in this document represents components of the legal health record. It is not the complete legal health record.[facility]
--- OUTSIDE RECORDS SUMMARY | 2025-02-09 20:09 | XMS_ITS | Encounter Summary ---
Author Organization [facility] Address [address] [facility] [address] [place] [address] Phone Care Team Providers Care Youth Specialist Name Role Phone Rina Swenson MD Unavailable Laura Mock MD, DMD Primary Car e Provider Laura Mock MD, DMD Unavailable Laura Mock MD, DMD Unavailable Jakob Bob MD Unavailable [phone] Jose Cruz MD Unavailable Laura Mock MD, DMD Unavailable Pcp, Unknown Primary Care Provider UnavailLaura Ascencio MD, DMD Primary Car e Provider Pcp, Unknown Primary Care Provider UnavailNicole Arguello MD Primary Care Provide r Laura Mock MD, DMD Primary Car e Provider Encounter Details Date Type Department Care Team (Late st Contact Info) Description 04/25/2022 Anti-coag visit [facility] [address] [place] [address] [id number] Kenyatta Gamez, PharmD [email or web address] Social History Tobacco Use [...] Description 03/08/2025 9:30 AM EST Pre-Admission Testing [address] [place] [address] Irineo Ruff MD [address] [place] [address] [email or web address] 03/15/2025 Procedure Pass [facility] Endoscopy Department [address] [place] [address] 03/15/2025 7:30 AM EST Hospital Encounter [facility] Endoscopy Department [address] [place] [address] Irineo Ruff MD [address] [place] [address] [email or web address] 03/15/2025 7:30 AM EST - 03/15/2025 8:15 AM EST Surgery [facility] Endoscopy Department [address] [place] [address] Irineo Ruff MD [address] [place] [address] [place] [address] [email or web address] [email or web address] Scheduled Procedures Name [...] documented as of this encounter Care Teams Youth Specialist Relationship Specialty Start Date End Date Laura Mock MD, DMD [address] [address] [email or web address] PCP - General Internal Medicine 06/04/21 11/11/23 Pcp, Unknown PCP - General 11/12/23 11/16/23 Laura Mock MD, DMD [address] [address] [email or web address] PCP - General Internal Medicine 11/17/23 12/28/23 Pcp, Unknown PCP - General 02/28/24 03/04/24 Nicole Newell MD [address] [place] [address] PCP - General 03/05/24 05/17/24 Laura Mock MD, DMD [address] [address] [email or web address] PCP - General Internal Medicine 05/18/24 Rina Swenson MD Psychiatry 07/09/17 Laura Mock MD, DMD [address] [address] [email or web address] Partners Attributed Provider 09/01/21 07/03/23 Laura Mock MD, DMD [address] [address] [email or web address] Insurance Assigned Provider 05/31/23 03/01/24 Jakob Bob MD [address] [place] [address] [place] [address] [email or web address] Cardiology 08/22/23 Jose Cruz MD [address] [place] [address] Cardiology 08/22/23 Laura Mock MD, DMD [address] [address] [email or web address] Partners Attributed Provider 09/01/21 07/03/23 [facility] [phone]. Consulting Provider 08/22/23 [facility] Connect 12/24/23 03/11/24 Cyril Morales [facility] [place] [address] Nurse Practitioner 02/27/24 documented as of this encounter Additional Source Comments The information contained in this document represents components of the legal health record. It is not the complete legal health record.[facility]
--- OUTSIDE RECORDS SUMMARY | 2025-02-09 20:09 | XMS_ITS | Encounter Summary ---
Author Organization [facility] Address Formerly [facility] [address] [place] [address] Phone Care Team Providers Care Servomechanism Designer Name Role Phone Artie Meehan MD Unavailable [...] st Contact Info) Description 09/17/2021 Procedure Pass [facility] [address] [place] [address] Social History Tobacco Use Types Packs/Day Years [...] Description 03/08/2025 9:30 AM EST Pre-Admission Testing [address] [address] Irineo Ruff MD [address] [place] [address] [email or web address] 03/15/2025 Procedure Pass [facility] Endoscopy Department [address] [place] [address] 03/15/2025 7:30 AM EST Hospital Encounter [facility] Endoscopy Department [address] [place] [address] Irineo Ruff MD [address] [place] [address] [email or web address] 03/15/2025 7:30 AM EST - 03/15/2025 8:15 AM EST Surgery [facility] Endoscopy Department [address] [place] [address] Irineo Ruff MD [address] [place] [address] [place] [address] [email or web address] Scheduled Procedures Name Priority Associated [...] documented as of this encounter Care Teams Servomechanism Designer Relationship Specialty Start Date End Date Laura Mock MD, DMD [address] [address] [email or web address] PCP - General Internal Medicine 06/04/21 11/11/23 Pcp, Unknown PCP - General 11/12/23 11/16/23 Laura Mock MD, DMD [address] [address] [email or web address] PCP - General Internal Medicine 11/17/23 12/28/23 Pcp, Unknown PCP - General 02/28/24 03/04/24 [place] [address] [address] PCP - General 03/05/24 05/17/24 Laura Mock MD, DMD [address] [address] [email or web address] PCP - General Internal Medicine 05/18/24 Artie Meehan MD [address] [place] [address] Dr Dior [facility] [place] [address] Internal Medicine 10/26/17 04/23/22 Rina Swenson MD [address] [place] [address] [place] [address] Psychiatry 07/09/17 Laura Mock MD, DMD [address] [address] [email or web address] Partners Attributed Provider 09/01/21 07/03/23 Laura Mock MD, DMD [address] [address] [email or web address] Insurance Assigned Provider 05/31/23 03/01/24 Jakob Bob MD [address] [place] [address] [email or web address] Cardiology 08/22/23 Jose Cruz MD [address] [place] [address] Cardiology 08/22/23 Laura Mock MD, DMD [address] [address] [email or web address] Partners Attributed Provider 09/01/21 07/03/23 [facility] [phone]. Consulting Provider 08/22/23 [facility] Connect 12/24/23 03/11/24 Cyril Morales [address] [place] [address] Nurse Practitioner 02/27/24 documented as of this encounter Additional Source Comments The information contained in this document represents components of the legal health record. It is not the complete legal health record.[facility]
--- OUTSIDE RECORDS SUMMARY | 2025-02-09 20:09 | XMS_ITS | Encounter Summary ---
Author Organization [facility] Address [address] [facility] [address] [place] [address] Phone Care Team Providers Care Commissary Clerk Name Role Phone Artie Meehan MD Primary Care Provider [phone] Artie Meehan MD Unavailable Rina Swenson MD Unavailable Laura Mock MD, DMD Primary Car e Provider Laura Mock MD, DMD Unavailable Laura Mock MD, DMD Unavailable Jakob Bob MD Unavailable [phone] Jose Cruz MD Unavailable Laura Mock MD, DMD Unavailable Pcp, Unknown Primary Care Provider UnavailLaura Ascencio MD, DMD Primary Car e Provider Pcp, Unknown Primary Care Provider UnavailNicole Arguello MD Primary Care Provide r Laura Mock MD, DMD Primary Car e Provider Encounter Details Date Type Department Care Team (Late st Contact Info) Description 11/29/2017 Transcribe Orders [facility] [address] [place] [address] Artie Meehan MD [address] [place] [address] [place] [address] Hypertension, essential (Primary Dx) Social History Tobacco [...] Description 03/08/2025 9:30 AM EST Pre-Admission Testing [address] [place] [address] Irineo Ruff MD [address] [place] [address] [email or web address] 03/15/2025 Procedure Pass [facility] Endoscopy Department [address] [place] [address] 03/15/2025 7:30 AM EST Hospital Encounter [facility] Endoscopy Department [address] [place] [address] Irineo Ruff MD [address] [place] [address] [email or web address] 03/15/2025 7:30 AM EST - 03/15/2025 8:15 AM EST Surgery [facility] Endoscopy Department [address] [place] [address] Irineo Ruff MD [address] [place] [address] [place] [address] [email or web address] [email or web address] Scheduled Procedures Name Priority Associated Diagnoses Date/Ti mo COLONOSCOPY Abnormal colonoscopy 03/15/2025 7:30 AM EST documented as of this encounter Results * (ABNORMAL) Urinalysis (11/29/2017 10:52 AM EDT) COLOR Yellow Yellow [facility] CLARITY Clear [facility] GLUCOSE Negative Negative [facility] BILI Negative Negative [facility] KETONES Negative Negative [facility] SPECIFIC GRAVITY 1.015 1.005 - 1.030 [facility] BLOOD Trace(A) Negative [facility] PH 6.0 5.0 - 8.0 [facility] Protein-UA Negative Negative [facility] NITRITE Negative Negative [facility] Leukocyte esterase, ur Negative Negative [facility] Urine (Urine) 11/29/2017 10: 52 AM EDT 11/29/2017 10:57 AM EDT Artie Meehan MD LAB URINE ORDERABLES Neela milian Result [facility] [address] [place], [place] [id number] * (ABNORMAL) CBC and differential (11/29/2017 10:52 AM EDT) WBC 3.98 3.40 - 11.20 K/uL [facility] RBC 5.32(H) 3.80 - 4.80 M/uL [facility] HGB 15.7(H) 12.0 - 15.0 g/dL [facility] HCT 48.4(H) 36.0 - 46.0 % [facility] PLT 223 130 - 400 K/uL [facility] MCV 91.0 79.0 - 98.0 fL [facility] MCH 29.5 27.0 - 34.8 pg [facility] MCHC 32.4 31.5 - 36.0 g/dL [facility] RDW 13.4 10.8 - 14.6 % [facility] MPV 9.1(L) 9.4 - 12.4 fl [facility] NRBC 0.00 /100 WBCs [facility] ABSOLUTE NRBC 0.00 K/uL [facility] DIFF METHOD Auto [facility] NEUTS 58.8 45.30 - 77.70 % [facility] LYMPHS 26.6 12.30 - 39.70 % [facility] MONOS 10.8 4.10 - 12.80 % [facility] EOS 2.5 0 - 7.2 % [facility] BASOS 1.0 0 - 2.80 % [facility] Granulocytes, immature (%) 0.3 0.0 - 0.9 % [facility] ABSOLUTE NEUTS 2.34 1.40 - 7.70 K/uL [facility] ABSOLUTE LYMPHS 1.06 0.60 - 3.20 K/uL [facility] ABSOLUTE MONOS 0.43 0.11 - 0.59 K/uL [facility] ABSOLUTE EOS 0.10 0.01 - 0.50 K/uL [facility] ABSOLUTE BASOS 0.04 0.00 - 0.08 K/uL [facility] Granulocytes, immature 0.01 0.00 - 0.05 K/uL [facility] Blood 11/29/2017 10:5 2 AM EDT 11/29/2017 10:57 AM EDT us Artie Meehan MD LAB BLOOD BKR ORDERABLES Final Result [facility] [address] [place], [place] [id number] * (ABNORMAL) Lipid panel (11/29/2017 10:52 AM EDT) HDL 82 mg/dL [facility] Comment: Interpretation: Risk Level Females Decreased >55mg/dL Average 50-55 mg/dL Increased <50 mg/dL CHOLESTEROL 253(H) 0 - 240 mg/dL [facility] TRIGLYCERIDES 83 30 - 160 mg/dL [facility] LDL 154(H) 50 - 129 mg/dL [facility] Comment: LDL levels in terms of risk for coronary heart disease: <100 mg/dL: Optimal 100-129 mg/dL: Near or above optimal 130-159 mg/dL: Borderline high 160-189 mg/dL: High >190 mg/dL: Very High CARDIAC RISK RATIO 3.1(L) 3.3 - 4.4 [facility] Blood 11/29/2017 10:5 2 AM EDT 11/29/2017 10:57 AM EDT Artie Meehan MD LAB BLOOD BKR ORDERABLES Final Result [address] [address] * Comprehensive metabolic panel (11/29/2017 10:52 AM EDT) SODIUM 145 133 - 146 mmol/L [facility] POTASSIUM 4.7 3.3 - 5.1 mmol/L [facility] CHLORIDE 104 96 - 108 mmol/L [facility] CO2 27 21 - 35 mmol/L [facility] BUN 17 6 - 19 mg/dL [facility] CREATININE 0.80 0.5 - 1.5 mg/dL [facility] GLUCOSE 86 70 - 99 mg/dL [facility] ALBUMIN 4.1 3.9 - 4.8 g/dL [facility] TOTAL PROTEIN 6.9 6.5 - 8.0 g/dL [facility] CALCIUM 9.2 8.4 - 10.3 mg/dL [facility] ALKALINE PHOSPHATASE 73 39 - 117 U/L [facility] TOTAL BILIRUBIN 0.5 0.0 - 1.2 mg/dL [facility] AST 19 0 - 37 U/L [facility] ALT 12 0 - 40 U/L [facility] GLOBULIN 2.8 1 - 4.8 g/dL [facility] EGFR 70 >59 mL/min/1.7 3m2 [facility] Comment:If patient is black, multiply result by 1.159. Estimated glomerular filtration rate calculated using the CKD-EPI equation. ANION GAP 19 10 - 20 mmol/L [facility] Blood 11/29/2017 10:5 2 AM EDT 11/29/2017 10:57 AM EDT Artie Meehan MD LAB BLOOD BKR ORDERABLES Final Result [facility] [address] [place] [address] documented in this encounter Visit Diagnoses Diagnosis Hypertension, essential- Primary Unspecified essential hypertension Abnormal colonoscopy documented in this encounter Additional Health Concerns Infection Onset Date Last Indicated Resolved Time CoV-Presumed 03/23/2022 03/23/2022 04/13/2022 1:23 AM EST CoV-Risk 11/12/2023 11/12/2023 11/12/2023 5:12 PM EDT COVID-19 11/12/2023 11/12/2023 12/03/2023 1:21 AM EDT documented as of this encounter Care Teams Commissary Clerk Relationship Specialty Start Date End Date Artie Meehan MD [address] [place] [address] PCP - General Internal Medicine 10/26/17 06/03/21 Laura Mock MD, DMD [address] [address] [email or web address] PCP - General Internal Medicine 06/04/21 11/11/23 Pcp, Unknown PCP - General 11/12/23 11/16/23 Laura Mock MD, DMD [address] [address] [email or web address] PCP - General Internal Medicine 11/17/23 12/28/23 Pcp, Unknown PCP - General 02/28/24 03/04/24 [place] [address] [address] PCP - General 03/05/24 05/17/24 Laura Mock MD, DMD [address] [address] [email or web address] PCP - General Internal Medicine 05/18/24 Artie Meehan MD [address] [place] [address] [place] [address] Internal Medicine 10/26/17 04/23/22 Rina Swenson MD [address] [place] [address] [place] [address] Psychiatry 07/09/17 Laura Mock MD, DMD [address] [address] [email or web address] Partners Attributed Provider 09/01/21 07/03/23 Laura Mock MD, DMD [address] [address] [email or web address] Insurance Assigned Provider 05/31/23 03/01/24 Jakob Bob MD [address] [place] [address] [place] [address] [email or web address] Cardiology 08/22/23 Jose Cruz MD [address] [place] [address], [address] [place] [address] Cardiology 08/22/23 Laura Mock MD, DMD [address] [address] [email or web address] Attributed Provider 09/01/21 07/03/23 [facility] [phone]. Consulting Provider 08/22/23 [facility] Connect 12/24/23 03/11/24 Cyril Morales [facility] [place] [address] Nurse Practitioner 02/27/24 documented as of this encounter Additional Source Comments The information contained in this document represents components of the legal health record. It is not the complete legal health record.[facility]
--- OUTSIDE RECORDS SUMMARY | 2025-02-09 20:10 | XMS_ITS | Encounter Summary ---
Author Organization [facility] Address [address] [facility] [address] [place] [address] Phone Care Team Providers Care Forensic Manager Name Role Phone Artie Meehan MD Primary Care Provider [phone] Artie Meehan MD Unavailable [phone] Rina Swenson MD Unavailable Laura Mock MD, [...] Info) Description 12/11/2018 Ancillary Orders Virtual Department [address] [place] [address] Artie Meehan MD [address] [place] [address] [place] [address] Breast screening Social History Tobacco Use Types [...] Upcoming Encounters Date Type Department Care Team ([facility] st Contact Info) Description 03/08/2025 9:30 AM EST Pre-Admission Testing [address] [address] Irineo Ruff MD [address] [place] [address] [email or web address] 03/15/2025 Procedure Pass [facility] Endoscopy Department [address] [place] [address] 03/15/2025 7:30 AM EST Hospital Encounter [facility] Endoscopy Department [address] [place] [address] Irineo Ruff MD [address] [place] [address] [email or web address] 03/15/2025 7:30 AM EST - 03/15/2025 8:15 AM EST Surgery [facility] Endoscopy Department [address] [place] [address] Irineo Ruff MD [address] [place] [address] [place] [address] [email or web address] Scheduled Procedures Name Priority Associated Diagnoses Date/Ti in COLONOSCOPY Abnormal colonoscopy 03/15/2025 7:30 AM EST [...] lowers the sensitivity of mammography. POS - [id number] Narrative 01/05/2019 1:52 PM EST Full-field digital [...] whichlowers the sensitivity of mammography. POS - [id number] Artie Meehan MD IMG MG EXAMS Final [...] as of this encounter Care Teams Forensic Manager Relationship Specialty Start Date End Date Artie Meehan MD [address] [place] [address] Dr Dior [address] [place] [place] [address] PCP - General Internal Medicine 10/26/17 06/03/21 Laura Mock MD, DMD [address] [address] [email or web address] PCP - General Internal Medicine 06/04/21 11/11/23 Pcp, Unknown PCP - General 11/12/23 11/16/23 Laura Mock MD, DMD [address] [address] [email or web address] PCP - General Internal Medicine 11/17/23 12/28/23 Pcp, Unknown PCP - General 02/28/24 03/04/24 [place] [address] [address] PCP - General 03/05/24 05/17/24 Laura Mock MD, DMD [address] [address] [email or web address] PCP - General Internal Medicine 05/18/24 Artie Meehan MD [address] [place] [address] Dr [address] [place] [address] Internal Medicine 10/26/17 04/23/22 Rina Swenson MD [address] [place] [address] Dr [address] [place] [address] Psychiatry 07/09/17 Laura Mock MD, DMD [address] [address] [email or web address] Attributed Provider 09/01/21 07/03/23 Laura Mock MD, DMD [address] [address] [email or web address] Insurance Assigned Provider 05/31/23 03/01/24 Jakob Bob MD [address] [place] [address] [place] [address] [email or web address] Cardiology 08/22/23 Jose Cruz MD [address] [place] [address] Cardiology 08/22/23 Laura Mock MD, DMD 1 [facility] [address] [place] [address] [email or web address] Attributed Provider 09/01/21 07/03/23 [facility] [phone]. Consulting Provider 08/22/23 [facility] Connect 12/24/23 03/11/24 yCril Morales [address] [place] [address] Nurse Practitioner 02/27/24 documented as of this encounter Additional Source Comments The information contained in this document represents components of the legal health record. It is not the complete legal health record.[facility]
--- OUTSIDE RECORDS SUMMARY | 2025-02-09 20:10 | XMS_ITS | Encounter Summary ---
Author Organization [facility] Address [address] [employer] [facility] [address] [place] [address] Phone Care Team Providers Care Wax Specialist Name Role Phone Artie Meehan MD Primary Care Provider [phone] Artie Meehan MD Unavailable Rina Swenson MD [...] Procedure Pass [facility] [address] [place] [address] Social History Tobacco Use Types Packs/Day Years [...] 03/08/2025 9:30 AM EST Pre-Admission Testing [address] [address] Irineo Ruff MD [address] [place] [address] [email or web address] 03/15/2025 Procedure Pass [facility] Endoscopy Department [address] [place] [address] 03/15/2025 7:30 AM EST Hospital Encounter [facility] Endoscopy Department [address] [place] [address] Irineo Ruff MD [address] [place] [address] [email or web address] 03/15/2025 7:30 AM EST - 03/15/2025 8:15 AM EST Surgery [facility] Endoscopy Department [address] [place] [address] Irineo Ruff MD [address] [place] [address] [place] [address] [email or web address] [email or web address] Scheduled Procedures Name Priority [...] documented as of this encounter Care Teams Wax Specialist Relationship Specialty Start Date End Date Artie Meehan MD [address] [place] [address] PCP - General Internal Medicine 10/26/17 06/03/21 Laura Mock MD, DMD [address] [place] [address] [address] [email or web address] PCP - General Internal Medicine 06/04/21 11/11/23 Pcp, Unknown PCP - General 11/12/23 11/16/23 Laura Mock MD, DMD [address] [address] [email or web address] PCP - General Internal Medicine 11/17/23 12/28/23 Pcp, Unknown PCP - General 02/28/24 03/04/24 Nicole [place]ell [place] [address] [place] [address] PCP - General 03/05/24 05/17/24 Laura Mock MD, DMD [address] [address] [email or web address] PCP - General Internal Medicine 05/18/24 Artie Meehan MD [address] [place] [address] Dr [address] [place] [address] Internal Medicine 10/26/17 04/23/22 Rina Swenson MD [address] [place] [address] Dr [address] [place] [address] Psychiatry 07/09/17 Laura Mock MD, DMD [address] [address] [email or web address] Attributed Provider 09/01/21 07/03/23 Laura Mock MD, DMD [address] [address] [email or web address] Insurance Assigned Provider 05/31/23 03/01/24 Jakob Bob MD [address] [place] [address] [address] [place] [address] [email or web address] Cardiology 08/22/23 Jose Cruz MD [address] [place] [address], [facility] [address] [place] [address] Cardiology 08/22/23 Laura Mock MD, DMD 1 [facility] [address] [place] [address] [email or web address] Attributed Provider 09/01/21 07/03/23 [facility] [phone]. Consulting Provider 08/22/23 [facility] Connect 12/24/23 03/11/24 Cyril Morales [address] [place] [address] Nurse Practitioner 02/27/24 documented as of this encounter Additional Source Comments The information contained in this document represents components of the legal health record. It is not the complete legal health record.[facility]
--- OUTSIDE RECORDS SUMMARY | 2025-02-09 20:10 | XMS_ITS | Encounter Summary ---
Author Organization [facility] Address [address] [employer] [facility] [address] [place] [address] Phone Care Team Providers Care Canvas Shrinker Name Role Phone Artie Meehan MD Primary Care Provider [phone] Artie Meehan MD Unavailable Rina Swenson MD [...] (GI/) Daryn Moyer MD Phone: tel: fax: mailto:[email or web address] Referral ID Status Reason Start Date Expiration Date Visits Re quested Visits Authorized [id number] Closed 12/24/2017 12/24/2018 1 1 Encounter Details Date Type Department Care Team (Late Contact Info) Description 12/24/2017 Ancillary Orders [facility] [address] [place], [place] [id number] [place] [address] Daryn Moyer MD [address] [place] [address] 11-3 [place] [address] [email or web address] Gross hematuria Social History Tobacco [...] Description 03/08/2025 9:30 AM EST [facility] [address] [facility] 2nd [place] [address] Irineo Ruff MD [address] [place] [address] [place] [address] [email or web address] 03/15/2025 Procedure Pass [facility] Endoscopy Department [address] [place] [address] 03/15/2025 7:30 AM EST Hospital Encounter [facility] Endoscopy Department [address] [place] [address] Irineo Ruff MD [address] [place] [address] [place] [address] [email or web address] 03/15/2025 7:30 AM EST - 03/15/2025 8:15 AM EST Surgery [facility] Endoscopy Department [address] [place] [address] Irineo Ruff MD [address] [place] [address] [place] [address] [email or web address] Scheduled Procedures Name [...] shows no thickening or masses. Procedure Note Cubre, Per J, MD - 12/25/2017 Reason for exam (per [...] the report originally created by Demond Holly. us Daryn Moyer MD IMG MR PELVIS Final [...] Date End Date Artie Meehan MD [address] [place] [address] [place] [address] PCP - General Internal Medicine 10/26/17 06/03/21 Laura Mock MD, DMD 1 [facility] [address] [place] [address] [email or web address] PCP - General Internal Medicine 06/04/21 11/11/23 Pcp, Unknown PCP - General 11/12/23 11/16/23 Laura Mock MD, DMD 1 [facility] [address] [place] [address] [email or web address] PCP - General Internal Medicine 11/17/23 12/28/23 Pcp, Unknown PCP - General 02/28/24 03/04/24 Nicole Newell MD [address] [place] [address] PCP - General 03/05/24 05/17/24 Laura Mock MD, DMD [address] [address] [email or web address] du PCP - General Internal Medicine 05/18/24 Artie Meehan MD [address] [place] [address] Dr D[address] [place] [address] Internal Medicine 10/26/17 04/23/22 Rina Swenson MD [address] [place] [address] Dr Dior [address] [place] [address] Psychiatry 07/09/17 Laura Mock MD, DMD [address] [address] [email or web address] [employer] Attributed Provider 09/01/21 07/03/23 Laura Mock MD, DMD [address] [address] [email or web address] Insurance Assigned Provider 05/31/23 03/01/24 Jakob Bob MD 75 [facility] [address] [place] [address] [email or web address] Cardiology 08/22/23 Jose Cruz MD [address] [place] [address], [address] [place] [address] [email or web address] Cardiology 08/22/23 Laura Mock MD, DMD 1 [facility] [address] [place] [address] [email or web address] Attributed Provider 09/01/21 07/03/23 [place] [facility] [phone]. Consulting Provider 08/22/23 [facility] Connect 12/24/23 03/11/24 Cyril Morales [address] [place] [phone] Nurse Practitioner 02/27/24 documented as of this encounter Additional Source Comments The information contained in this document represents components of the legal health record. It is not the complete legal health record.[facility]
--- OUTSIDE RECORDS SUMMARY | 2025-02-09 20:10 | XMS_ITS | Encounter Summary ---
Author Organization [facility] Address Critical access hospital [facility] [address] [place] [address] Phone Care Team Providers Care Competitive Shopper Name Role Phone Artie Meehan MD Primary Care Provider Artie Meehan MD Primary Care Provider Artie Meehan MD Unavailable Rina Swenson MD Unavailable [phone] Laura Mock MD, DMD Primary Car e [...] Info) Description 08/19/2017 Ancillary Orders Virtual Department [address] [place] [address] Artie Meehan MD [address] [place] [address] [place] [address] Breast screening Social History Tobacco Use Types [...] Description 03/08/2025 9:30 AM EST Pre-Admission Testing [address] 2nd [place] [address] Irineo Ruff MD [address] [place] [address] [email or web address] 03/15/2025 Procedure Pass [facility] Endoscopy Department [address] [place] [address] 03/15/2025 7:30 AM EST Hospital Encounter [facility] Endoscopy Department [address] [place] [address] Irineo Ruff MD [address] [place] [address] [email or web address] 03/15/2025 7:30 AM EST - 03/15/2025 8:15 AM EST Surgery [facility] Endoscopy Department [address] [place] [address] Irineo Ruff MD [address] [place] [address] [email or web address] COLONOSCOPY Scheduled Procedures [...] lowers the sensitivity of mammography. POS - [id number] Narrative 09/12/2017 2:03 PM EDT Full-field digital [...] whichlowers the sensitivity of mammography. POS - [id number] Artie Meehan MD IMG MG EXAMS Final [...] documented as of this encounter Care Teams Competitive Shopper Relationship Specialty Start Date End Date Artie Meehan MD [address] [place] [address] Dr [address] [place] [address] PCP - General Internal Medicine 07/09/17 10/25/17 Artie Meehan MD [address] [place] [address] Dr [address] [place] [address] PCP - General Internal Medicine 10/26/17 06/03/21 Laura Mock MD, DMD [address] [address] [email or web address] PCP - General Internal Medicine 06/04/21 11/11/23 Pcp, Unknown PCP - General 11/12/23 11/16/23 Laura Mock MD, DMD [address] [address] [email or web address] PCP - General Internal Medicine 11/17/23 12/28/23 Pcp, Unknown PCP - General 02/28/24 03/04/24 [place] [address] [address] PCP - General 03/05/24 05/17/24 Laura Mock MD, DMD [address] [address] [email or web address] du PCP - General Internal Medicine 05/18/24 Artie Meehan MD [address] [place] [address] Dr Dior [facility] [place] [address] Internal Medicine 10/26/17 04/23/22 Rina Swenson MD [address] [place] [address] Dr [address] [place] [address] [address] Psychiatry 07/09/17 Laura Mock MD, DMD [address] [address] [email or web address] du Partners Attributed Provider 09/01/21 07/03/23 Laura Mock MD, DMD [address] [address] [email or web address] du Insurance Assigned Provider 05/31/23 03/01/24 Jakob Bob MD 75 [facility] [address] [place] [address] [email or web address] Cardiology 08/22/23 Jose Cruz MD [address] [facility], [address] [place] [address] [email or web address] Cardiology 08/22/23 Laura Mock MD, DMD 1 [facility] [address] [place] [address] [email or web address] du [employer] Attributed Provider 09/01/21 07/03/23 [place] [facility] [phone]. Consulting Provider 08/22/23 [facility] Connect 12/24/23 03/11/24 Cyril Morales [address] [place] [address] Nurse Practitioner 02/27/24 documented as of this encounter Additional Source Comments The information contained in this document represents components of the legal health record. It is not the complete legal health record.[facility]
--- OUTSIDE RECORDS SUMMARY | 2025-02-09 20:10 | XMS_ITS | Encounter Summary ---
Author Organization [facility] Address [address] [employer] [facility] [address] [place] [address] Phone Care Team Providers Care Firearms Inspector Name Role Phone Artie Meehan MD Primary Care Provider [phone] Artie Meehan MD Unavailable Rina Swenson MD Unavailable Laura Mock MD, DMD Primary Car e Provider Laura Mock MD, DMD Unavailable Laura Mock MD, DMD Unavailable Jakob Bob MD Unavailable [phone] Jose Cruz MD Unavailable Laura Mock MD, DMD Unavailable Pcp, Unknown Primary Care Provider UnavailLaura Ascencio MD, DMD Primary Car e Provider Pcp, Unknown Primary Care Provider UnavailNicole Arguello MD Primary Care Provide r Laura Mock MD, DMD Primary Car e Provider Encounter Details Date Type Department Care Team (Late st Contact Info) Description 01/06/2018 Procedure Pass [facility] 75 [place] [address] Social History Tobacco Use Types Packs/Day Years [...] Upcoming Encounters Date Type Department Care Team ([facility] st Contact Info) Description 03/08/2025 9:30 AM EST Pre-Admission Testing [facility] 45 [facility] 2nd [place] [address] Irineo Ruff MD [address] [place] [address] [email or web address] 03/15/2025 Procedure Pass [facility] Endoscopy Department [address] [place] [address] 03/15/2025 7:30 AM EST Hospital Encounter [facility] Endoscopy Department [address] [place] [address] Irineo Ruff MD [address] [place] [address] [email or web address] 03/15/2025 7:30 AM EST - 03/15/2025 8:15 AM EST Surgery [facility] Endoscopy Department [address] [place] [address] Irineo Ruff MD [address] [place] [address] [email or web address] COLONOSCOPY Scheduled Procedures [...] documented as of this encounter Care Teams Firearms Inspector Relationship Specialty Start Date End Date Artie Meehan MD [address] [place] [address] Dr [address] [place] [address] PCP - General Internal Medicine 10/26/17 06/03/21 Laura Mock MD, DMD [address] [address] [email or web address] du PCP - General Internal Medicine 06/04/21 11/11/23 Pcp, Unknown PCP - General 11/12/23 11/16/23 Laura Mock MD, DMD [address] [address] [email or web address] PCP - General Internal Medicine 11/17/23 12/28/23 Pcp, Unknown PCP - General 02/28/24 03/04/24 [place] [address] [place] [address] PCP - General 03/05/24 05/17/24 Laura Mock MD, DMD [address] [address] [email or web address] du PCP - General Internal Medicine 05/18/24 Artie Meehan MD [address] [place] [address] [place] [address] Internal Medicine 10/26/17 04/23/22 Rina Swenson MD [address] [place] [address] [place] [address] Psychiatry 07/09/17 Laura Mock MD, DMD [address] [address] [email or web address] du Partners Attributed Provider 09/01/21 07/03/23 Laura Mock MD, DMD [address] [address] [email or web address] du Insurance Assigned Provider 05/31/23 03/01/24 Jakob Bob MD [address] [place] [address] [email or web address] Cardiology 08/22/23 Jose Cruz MD [address] [place] [address] [email or web address] Cardiology 08/22/23 Laura Mock MD, DMD [address] [address] [email or web address] du [employer] Attributed Provider 09/01/21 07/03/23 [place] [facility] [phone]. Consulting Provider 08/22/23 [facility] Connect 12/24/23 03/11/24 Cyril Morales [address] [place] [phone] Nurse Practitioner 02/27/24 documented as of this encounter Additional Source Comments The information contained in this document represents components of the legal health record. It is not the complete legal health record.[facility]
--- OUTSIDE RECORDS SUMMARY | 2025-02-09 20:10 | XMS_ITS | Encounter Summary ---
Author Organization [facility] Address [facility] [address] [address] Phone Care Team Providers Care Warehouse Person Name Role Phone Artie Meehan MD Primary [...] sequela Artie Meehan MD Phone: tel: fax: [facility] 30 [place] [address] Phone: tel: Referral ID Status Reason Start Date Expiration Date Visits Re quested Visits Authorized [id number] Closed 11/27/2018 02/23/2019 99 99 Encounter Details Date Type Department Care Team (Latest Contact Info) Description 11/27/2018 Transcribe Orders [facility] [address] [place] [address] Artie Meehan MD [address] [place] [address] [facility] [place] [address] Left wrist fracture, sequela (Primary Dx) Social [...] Description 03/08/2025 9:30 AM EST [facility] 45 [facility] 2nd [place] [address] Irineo Ruff MD [address] [place] [address] End[place] [address] [email or web address] 03/15/2025 Procedure Pass [facility] Endoscopy Department [address] [place] [address] 03/15/2025 7:30 AM EST Hospital Encounter [facility] Endoscopy Department [address] [place] [address] Irineo Ruff MD [address] [place] [address] [place] [address] [email or web address] 03/15/2025 7:30 AM EST - 03/15/2025 8:15 AM EST Surgery [facility] Endoscopy Department [address] [place] [address] Irineo Ruff MD [address] [place] [address] [place] [address] [email or web address] Scheduled Procedures Name Priority Associated Diagnoses Date/Ti me COLONOSCOPY Abnormal colonoscopy 03/15/2025 7:30 AM EST documented as of this encounter Procedures Procedure Name Priority Date/Time Associated Diagnosis Comments AMB REFERRAL TO [facility] OCCUPATIONAL THERAPY Routine 12/08/2018 4:10 PM EDT Left wrist fracture, sequela documented in this encounter Results * Ambulatory referral to [facility] Occupational Therapy (12/08/2018 4:10 PM EDT) Artie Meehan MD AMB [facility] REFERRALS Final R esult documented in this encounter Visit Diagnoses Diagnosis Left wrist fracture, sequela- Primary Abnormal colonoscopy documented in this encounter Additional Health Concerns Infection Onset Date Last Indicated Resolved Time CoV-Presumed 03/23/2022 03/23/2022 04/13/2022 1:23 AM EST CoV-Risk 11/12/2023 11/12/2023 11/12/2023 5:12 PM EDT COVID-19 11/12/2023 11/12/2023 12/03/2023 1:21 AM EDT documented as of this encounter Care Teams Warehouse Person Relationship Specialty Start Date End Date Artie Meehan MD [address] [place] [address] [place] [address] PCP - General Internal Medicine 10/26/17 06/03/21 Laura Mock MD, DMD 1 [address] [place] [address] [email or web address] du PCP - General Internal Medicine 06/04/21 11/11/23 Pcp, Unknown PCP - General 11/12/23 11/16/23 Laura Mock MD, DMD [address] [address] [email or web address] du PCP - General Internal Medicine 11/17/23 12/28/23 Pcp, Unknown PCP - General 02/28/24 03/04/24 Nicole Newell MD [address] [place] [address] PCP - General 03/05/24 05/17/24 Laura Mock MD, DMD [address] [address] [email or web address] du PCP - General Internal Medicine 05/18/24 Artie Meehan MD [address] [place] [address] [place] [address] Internal Medicine 10/26/17 04/23/22 Rina Swenson MD [address] [place] [address] [place] [address] Psychiatry 07/09/17 Laura Mock MD, DMD [address] [address] [email or web address] Partners Attributed Provider 09/01/21 07/03/23 Laura Mock MD, DMD 1 [facility] [address] [place] [address] [email or web address] du Insurance Assigned Provider 05/31/23 03/01/24 Jakob Bob MD [facility] [place] [address] [email or web address] Cardiology 08/22/23 Jose Cruz MD [address] [place] [address], [facility] [address] [place] [address] [email or web address] Cardiology 08/22/23 Laura Mock MD, DMD [address] [address] [email or web address] [employer] Attributed Provider 09/01/21 07/03/23 [place] [facility] [phone]. Consulting Provider 08/22/23 [facility] Connect 12/24/23 03/11/24 Cyril Morales [facility] [place] [address] Nurse Practitioner 02/27/24 documented as of this encounter Additional Source Comments The information contained in this document represents components of the legal health record. It is not the complete legal health record.[facility]
--- OUTSIDE RECORDS SUMMARY | 2025-02-09 20:10 | XMS_ITS | Encounter Summary ---
Author Organization [facility] Address [address] [employer] [facility] [address] [place] [address] Phone Care Team Providers Care Scarfer Name Role Phone Artie Meehan MD Primary Care Provider [phone] Artie Meehan MD Unavailable Rina Swenson MD Unavailable Laura Mock MD, DMD Primary Car e Provider Laura Mock MD, DMD Unavailable Laura Mock MD, DMD Unavailable Jakob Bob MD Unavailable [phone] Jose Cruz MD Unavailable [phone] Laura Mock MD, DMD Unavailable Pcp, Unknown [...] Interpretation) Daryn Moyer MD Phone: tel: fax: mailto:[email or web address] Referral ID Status Reason Start Date Expiration Date Visits Re quested Visits Authorized [id number] Closed 01/06/2018 01/06/2019 1 1 Encounter Details Date Type Department Care Team (Late st Contact Info) Description 01/06/2018 Transcribe Orders [facility] [address] [place] [address] Shira Mann [address] [place] [address] [email or web address] Social History Tobacco Use Types Packs/Day Years [...] 03/08/2025 9:30 AM EST Pre-Admission Testing [facility] 2nd [place] [address] Irineo Ruff MD 75 [facility] [place] [address] [email or web address] 03/15/2025 Procedure Pass [facility] Endoscopy Department [address] [place] [address] 03/15/2025 7:30 AM EST Hospital Encounter [facility] Endoscopy Department [address] [place] [address] Irineo Ruff MD [address] [place] [address] [place] [address] [email or web address] 03/15/2025 7:30 AM EST - 03/15/2025 8:15 AM EST Surgery [facility] Endoscopy Department [address] [place] [address] Irineo Ruff MD [address] [place] [address] [place] [address] [email or web address] COLONOSCOPY Scheduled Procedures Name Priority Associated Diagnoses Date/Ti me COLONOSCOPY Abnormal colonoscopy 03/15/2025 7:30 AM EST documented as of this encounter Results * MRI Lower Extremity Outside (No Interpretation) (01/06/2018 11:46 AM EST) Narrative [facility] - 01/06/2018 11:46 AM EST This study is for PACS storage only and not for interpretation. us Daryn Moyer MD IMG OUTSIDE IMAGING W/OUT INT ERPRETATION Final Result [facility] documented in this encounter Visit Diagnoses Not on filedocumented in this encounter Additional Health Concerns Infection Onset Date Last Indicated Resolved Time CoV-Presumed 03/23/2022 03/23/2022 04/13/2022 1:23 AM EST CoV-Risk 11/12/2023 11/12/2023 11/12/2023 5:12 PM EDT COVID-19 11/12/2023 11/12/2023 12/03/2023 1:21 AM EDT documented as of this encounter Care Teams Scarfer Relationship Specialty Start Date End Date Artie Meehan MD [address] [place] [address] [place] [address] PCP - General Internal Medicine 10/26/17 06/03/21 Laura Mock MD, DMD 1 [facility] [address] [place] [address] [email or web address] PCP - General Internal Medicine 06/04/21 11/11/23 Pcp, Unknown PCP - General 11/12/23 11/16/23 Laura Mock MD, DMD [address] [address] [email or web address] PCP - General Internal Medicine 11/17/23 12/28/23 Pcp, Unknown PCP - General 02/28/24 03/04/24 Nicole Newell MD [address] [place] [address] PCP - General 03/05/24 05/17/24 Laura Mock MD, DMD [address] [address] [email or web address] PCP - General Internal Medicine 05/18/24 Artie Meehan MD [address] [place] [address] [place] [address] Internal Medicine 10/26/17 04/23/22 Rina Swenson MD [address] [place] [address] [place] [address] Psychiatry 07/09/17 Laura Mock MD, DMD [address] [address] [email or web address] du [employer] Attributed Provider 09/01/21 07/03/23 Laura Mock MD, DMD 1 [facility] [address] [place] [address] [email or web address] du Insurance Assigned Provider 05/31/23 03/01/24 Jakob Bob MD [address] [facility] [address] [place] [address] [email or web address] Cardiology 08/22/23 Jose Cruz MD [address] [place] [address], [address] [place] [address] [email or web address] Cardiology 08/22/23 Laura Mock MD, DMD [address] [address] [email or web address] du [employer] Attributed Provider 09/01/21 07/03/23 [facility] [phone]. Consulting Provider 08/22/23 [facility] Connect 12/24/23 03/11/24 Cyril Morales [address] [place] [phone] Nurse Practitioner 02/27/24 documented as of this encounter Additional Source Comments The information contained in this document represents components of the legal health record. It is not the complete legal health record.[facility]
--- OUTSIDE RECORDS SUMMARY | 2025-02-09 20:10 | XMS_ITS | Encounter Summary ---
Author Organization [facility] Address [address] [facility] [address] [place] [address] Phone Care Team Providers Care Nutritionist Name Role Phone Artie Meehan MD Primary Care Provider [phone] Artie Meehan MD Unavailable [phone] Rina Swenson MD Unavailable Laura Mock MD, DMD Primary Car e Provider Laura Mock MD, DMD Unavailable Laura Mock MD, DMD Unavailable Jakob Bob MD Unavailable Jose Cruz MD Unavailable [phone] Laura Mock MD, DMD Unavailable Pcp, Unknown Primary Care Provider UnavailLaura Ascencio MD, DMD Primary Car e Provider Pcp, Unknown Primary Care Provider UnavailNicole Arguello MD Primary Care Provide r Laura Mock MD, DMD Primary Car e Provider Encounter Details Date Type Department Care Team (Late st Contact Info) Description 05/15/2018 Procedure Pass [facility], [address] [address] Social History Tobacco Use Types Packs/Day Years [...] Upcoming Encounters Date Type Department Care Team ([facility] st Contact Info) Description 03/08/2025 9:30 AM EST Pre-Admission Testing [address] [address] Irineo Ruff MD [address] [place] [address] [email or web address] 03/15/2025 Procedure Pass [facility] Endoscopy Department [address] [place] [address] 03/15/2025 7:30 AM EST Hospital Encounter [facility] Endoscopy Department [address] [place] [address] Irineo Ruff MD [address] [place] [address] [email or web address] 03/15/2025 7:30 AM EST - 03/15/2025 8:15 AM EST Surgery [facility] Endoscopy Department [address] [place] [address] Irineo Ruff MD [address] [place] [address] [email or web address] COLONOSCOPY Scheduled Procedures Name Priority [...] documented as of this encounter Care Teams Nutritionist Relationship Specialty Start Date End Date Artie Meehan MD [address] [place] [address] Dr [place] [facility] [place] [address] PCP - General Internal Medicine 10/26/17 06/03/21 Laura Mock MD, DMD [address] [address] [email or web address] PCP - General Internal Medicine 06/04/21 11/11/23 Pcp, Unknown PCP - General 11/12/23 11/16/23 Laura Mock MD, DMD [address] [address] [email or web address] PCP - General Internal Medicine 11/17/23 12/28/23 Pcp, Unknown PCP - General 02/28/24 03/04/24 [place] [address] [place] [address] PCP - General 03/05/24 05/17/24 Laura Mock MD, DMD [address] [address] [email or web address] du PCP - General Internal Medicine 05/18/24 Artie Meehan MD [address] [place] [address] [place] [address] Internal Medicine 10/26/17 04/23/22 Rina Swenson MD [address] [place] [address] [place] [address] Psychiatry 07/09/17 Laura Mock MD, DMD [address] [address] [email or web address] Partners Attributed Provider 09/01/21 07/03/23 Laura Mock MD, DMD [address] [address] [email or web address] Insurance Assigned Provider 05/31/23 03/01/24 Jakob Bob MD [address] [place] [address] [email or web address] Cardiology 08/22/23 Jose Cruz MD [address] [place] [address] Cardiology 08/22/23 Laura Mock MD, DMD [address] [address] [email or web address] Partners Attributed Provider 09/01/21 07/03/23 [employer] [phone]. Consulting Provider 08/22/23 [facility] Connect 12/24/23 03/11/24 Cyril Morales [address] [place] [address] Nurse Practitioner 02/27/24 documented as of this encounter Additional Source Comments The information contained in this document represents components of the legal health record. It is not the complete legal health record.[facility]
--- OUTSIDE RECORDS SUMMARY | 2025-02-09 20:10 | XMS_ITS | Encounter Summary ---
Author Organization [facility] Address [address] [facility] [address] [place] [address] Phone Care Team Providers Care Vinyl Hanger Name Role Phone Artie Meehan MD Primary Care Provider [phone] Artie Meehan MD Unavailable Rina Swenson MD Unavailable Laura Mock MD, DMD Primary Car e Provider Laura Mock MD, DMD Unavailable Laura Mock MD, DMD Unavailable Jakob Bob MD Unavailable [phone] Jose Cruz MD Unavailable Laura Mock MD, [...] Expiration Date Visits Re quested Visits Authorized [id number] Closed 05/15/2018 05/15/2019 1 1 Encounter Details Date Type Department Care Team (Late st Contact Info) Description 05/15/2018 Ancillary Orders For Login Purposes Only 15 [facility] 2 [address] [place] [address] Artie Meehan MD [address] [place] [address] [place] [address] Pancreatic cyst Social History Tobacco Use Types [...] 9:30 AM EST Pre-Admission Testing [facility] [address] [address] Irineo Ruff MD [address] [place] [address] [place] [address] [email or web address] 03/15/2025 Procedure Pass [facility] Endoscopy Department [address] [place] [address] 03/15/2025 7:30 AM EST Hospital Encounter [facility] Endoscopy Department [address] [place] [address] Irineo Ruff MD [address] [place] [address] [place] [address] [email or web address] 03/15/2025 7:30 AM EST - 03/15/2025 8:15 AM EST Surgery [facility] Endoscopy Department [address] [place] [address] Irineo Ruff MD [address] [place] [address] [place] [address] [email or web address] COLONOSCOPY [...] renal cysts. Right hepatic lobe cyst. POS [id number] Edited by: Abbie Barnett on 05/22/2018 12:52 [...] renal cysts. Right hepatic lobe cyst. POS [id number] Edited by: Abbie Barnett on 05/22/2018 12:52 [...] documented as of this encounter Care Teams Vinyl Hanger Relationship Specialty Start Date End Date Artie Meehan MD [address] [place] [address] Dr [address] [place] [address] [place] [address] PCP - General Internal Medicine 10/26/17 06/03/21 Laura Mock MD, DMD [address] [address] [email or web address] PCP - General Internal Medicine 06/04/21 11/11/23 Pcp, Unknown PCP - General 11/12/23 11/16/23 Laura Mock MD, DMD [address] [address] [email or web address] PCP - General Internal Medicine 11/17/23 12/28/23 Pcp, Unknown PCP - General 02/28/24 03/04/24 [place] [address] [address] PCP - General 03/05/24 05/17/24 Laura Mock MD, DMD [address] [address] [email or web address] PCP - General Internal Medicine 05/18/24 Artie Meehan MD [address] [place] [address] [place] [address] Internal Medicine 10/26/17 04/23/22 Rina Swenson MD [address] [place] [address] [place] [address] Psychiatry 07/09/17 Laura Mock MD, DMD [address] [address] [email or web address] Attributed Provider 09/01/21 07/03/23 Laura Mock MD, DMD 1 [facility] [address] [place] [address] [email or web address] Insurance Assigned Provider 05/31/23 03/01/24 Jakob Bob MD [address] [place] [address] [email or web address] Cardiology 08/22/23 Jose Cruz MD [address] [place] [address], [address] [place] [address] Cardiology 08/22/23 Laura Mock MD, DMD [address] [address] [email or web address] Partners Attributed Provider 09/01/21 07/03/23 [facility] [phone]. Consulting Provider 08/22/23 [facility] Connect 12/24/23 03/11/24 Cyril Morales [address] [place] [address] Nurse Practitioner 02/27/24 documented as of this encounter Additional Source Comments The information contained in this document represents components of the legal health record. It is not the complete legal health record.[facility]
--- OUTSIDE RECORDS SUMMARY | 2025-02-09 20:10 | XMS_ITS | Encounter Summary ---
Author Organization [facility] Address [address] [facility] [address] [place] [address] Phone Care Team Providers Care Oriental Medicine Practitioner Name Role Phone Artie Meehan MD Primary Care Provider [phone] Artie Meehan MD Unavailable Rina Swenson MD Unavailable Laura Mock MD, DMD Primary Car e Provider Laura Mock MD, DMD Unavailable Laura Mock MD, DMD Unavailable Jakob Bob MD Unavailable [phone] Jose Cruz MD Unavailable Laura Mock MD, DMD Unavailable Pcp, Unknown Primary Care Provider UnavailLaura Ascencio MD, DMD Primary Car e Provider Pcp, Unknown Primary Care Provider UnavailNicole Arguello MD Primary Care Provide r Laura Mock MD, DMD Primary Car e Provider Encounter Details Date Type Department Care Team (Late st Contact Info) Description 05/20/2018 Transcribe Orders [facility] [address] [place] [address] Artie Meehan MD [address] [place] [address] [place] [address] 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 Endoscopy Department [address] [place] [address] 03/15/2025 7:30 AM EST Hospital Encounter [facility] Endoscopy Department [address] [place] [address] Irineo Ruff MD [address] [place] [address] [email or web address] 03/15/2025 7:30 AM EST - 03/15/2025 8:15 AM EST Surgery [facility] Endoscopy Department [address] [place] [address] Irineo Ruff MD [address] [place] [address] [place] [address] [email or web address] COLONOSCOPY Scheduled Procedures Name Priority [...] documented as of this encounter Care Teams Oriental Medicine Practitioner Relationship Specialty Start Date End Date Artie Meehan MD [address] [place] [address] [facility] [place] [address] PCP - General Internal Medicine 10/26/17 06/03/21 Laura Mock MD, DMD [address] [address] [email or web address] PCP - General Internal Medicine 06/04/21 11/11/23 Pcp, Unknown PCP - General 11/12/23 11/16/23 Laura Mock MD, DMD [address] [address] [email or web address] PCP - General Internal Medicine 11/17/23 12/28/23 Pcp, Unknown PCP - General 02/28/24 03/04/24 [place] [address] [address] PCP - General 03/05/24 05/17/24 Laura Mock MD, DMD [address] [address] [email or web address] PCP - General Internal Medicine 05/18/24 Artie Meehan MD [address] [place] [address] Dr [address] [place] [address] Internal Medicine 10/26/17 04/23/22 Rina Swenson MD [address] [place] [address] Dr [address] [place] [address] Psychiatry 07/09/17 Laura Mock MD, DMD [address] [address] [email or web address] Partners Attributed Provider 09/01/21 07/03/23 Laura Mock MD, DMD [address] [address] [email or web address] Insurance Assigned Provider 05/31/23 03/01/24 Jakob Bob MD [address] [place] [address] [place] [address] [email or web address] Cardiology 08/22/23 Jose Cruz MD [address] [place] [address] Cardiology 08/22/23 Laura Mock MD, DMD [address] [address] [email or web address] Partners Attributed Provider 09/01/21 07/03/23 [facility] [phone]. Consulting Provider 08/22/23 [facility] Connect 12/24/23 03/11/24 Cyril Morales [address] [place] [address] Nurse Practitioner 02/27/24 documented as of this encounter Additional Source Comments The information contained in this document represents components of the legal health record. It is not the complete legal health record.[facility]
--- OUTSIDE RECORDS SUMMARY | 2025-02-09 20:10 | XMS_ITS | Encounter Summary ---
Author Organization [facility] Address [address] [employer] [facility] [address] [place] [address] Phone Care Team Providers Care Cut And Print Machine Operator Name Role Phone Artie Meehan MD Primary Care Provider [phone] Artie Meehan MD Unavailable Rina Swenson MD [...] st Contact Info) Description 11/27/2018 Transcribe Orders [facility] [address] [place] [address] Artie Meehan MD [address] [place] [address] [place] [address] Social History Tobacco Use Types Packs/Day Years [...] Description 03/08/2025 9:30 AM EST Pre-Admission Testing [address] [address] Irineo Ruff MD [address] [place] [address] [email or web address] 03/15/2025 Procedure Pass [facility] Endoscopy Department [address] [place] [address] 03/15/2025 7:30 AM EST Hospital Encounter [facility] Endoscopy Department [address] [place] [address] Irineo Ruff MD [address] [place] [address] [email or web address] 03/15/2025 7:30 AM EST - 03/15/2025 8:15 AM EST Surgery [facility] Endoscopy Department [address] [place] [address] Irineo Ruff MD [address] [place] [address] [email or web address] [email or web address] Scheduled Procedures Name [...] documented as of this encounter Care Teams Cut And Print Machine Operator Relationship Specialty Start Date End Date Artie Meehan MD [address] [place] [address] Dr [address] [place] [address], [place] [address] PCP - General Internal Medicine 10/26/17 06/03/21 Laura Mock MD, DMD [address] [address] [email or web address] PCP - General Internal Medicine 06/04/21 11/11/23 Pcp, Unknown PCP - General 11/12/23 11/16/23 Laura Mock MD, DMD [address] [address] [email or web address] PCP - General Internal Medicine 11/17/23 12/28/23 Pcp, Unknown PCP - General 02/28/24 03/04/24 [place] [address] [address] PCP - General 03/05/24 05/17/24 Laura Mock MD, DMD [address] [address] [email or web address] PCP - General Internal Medicine 05/18/24 Artie Meehan MD [address] [place] [address] [place] [address] Internal Medicine 10/26/17 04/23/22 Rina Swenson MD [address] [place] [address] Dr Nichols [place] [address] Psychiatry 07/09/17 Laura Mock MD, DMD [address] [address] [email or web address] Partners Attributed Provider 09/01/21 07/03/23 Laura Mock MD, DMD [address] [address] [email or web address] du Insurance Assigned Provider 05/31/23 03/01/24 Jakob Bob MD [address] [place] [address] [email or web address] Cardiology 08/22/23 Jose Cruz MD [address] [place] [address], [facility] [address] [place] [address] Cardiology 08/22/23 Laura Mock MD, DMD [address] [address] [email or web address] Partners Attributed Provider 09/01/21 07/03/23 [facility] [phone]. Consulting Provider 08/22/23 [facility] Connect 12/24/23 03/11/24 Cyril Morales [address] [place] [address] Nurse Practitioner 02/27/24 documented as of this encounter Additional Source Comments The information contained in this document represents components of the legal health record. It is not the complete legal health record.[facility]
--- OUTSIDE RECORDS SUMMARY | 2025-02-09 20:10 | XMS_ITS | Encounter Summary ---
Author Organization [facility] Address [address] [facility] [address] [place] [address] Phone Care Team Providers Care Vacuum Truck Driver Name Role Phone Artie Meehan MD Primary Care Provider [phone] Artie Meehan MD Unavailable Rina Swenson MD Unavailable Laura Mock MD, DMD Primary Car e Provider Laura Mock MD, DMD Unavailable Laura Mock MD, DMD Unavailable Jakob Bob MD Unavailable Jose Cruz MD Unavailable [phone] Laura Mock MD, DMD Unavailable Pcp, Unknown Primary Care Provider UnavailLaura Ascencio MD, DMD Primary Car e Provider Pcp, Unknown Primary Care Provider UnavailNicole Arguello MD Primary Care Provide r Laura Mock MD, DMD Primary Car e Provider Encounter Details Date Type Department Care Team (Late st Contact Info) Description 12/19/2017 Procedure Pass [facility] [address] [place] [address] Social History Tobacco Use Types Packs/Day Years [...] Pre-Admission Testing [facility] [address] [facility] [address]nd [place] [address] Irineo Ruff MD [address] [place] [address] [email or web address] 03/15/2025 Procedure Pass [facility] Endoscopy Department [address] [place] [address] 03/15/2025 7:30 AM EST Hospital Encounter [facility] Endoscopy Department [address] [place] [address] Irineo Ruff MD [address] [place] [address] [email or web address] 03/15/2025 7:30 AM EST - 03/15/2025 8:15 AM EST Surgery [facility] Endoscopy Department [address] [place] [address] Irineo Ruff MD [address] [place] [address] [place] [address] [email or web address] [email or web address] Scheduled Procedures Name Priority [...] documented as of this encounter Care Teams Vacuum Truck Driver Relationship Specialty Start Date End Date Artie Meehan MD [address] [place] [address] PCP - General Internal Medicine 10/26/17 06/03/21 Laura Mock MD, DMD [address] [address] [email or web address] PCP - General Internal Medicine 06/04/21 11/11/23 Pcp, Unknown PCP - General 11/12/23 11/16/23 Laura Mock MD, DMD [address] [address] [email or web address] PCP - General Internal Medicine 11/17/23 12/28/23 Pcp, Unknown PCP - General 02/28/24 03/04/24 [place] [address] [place] [address] PCP - General 03/05/24 05/17/24 Laura Mock MD, DMD [address] [address] [email or web address] PCP - General Internal Medicine 05/18/24 Artie Meehan MD [address] [place] [address] Dr [address] [place] [address] Internal Medicine 10/26/17 04/23/22 Rina Swenson MD [address] [place] [address] Dr [address] [place] [address] Psychiatry 07/09/17 Laura Mock MD, DMD [address] [address] [email or web address] Attributed Provider 09/01/21 07/03/23 Laura Mock MD, DMD [address] [address] [email or web address] Insurance Assigned Provider 05/31/23 03/01/24 Jakob Bob MD [address] [place] [address] [address] [place] [address] [email or web address] Cardiology 08/22/23 Jose Cruz MD [address] [place] [address], [address] [place] [address] Cardiology 08/22/23 Laura Mock MD, DMD 1 [facility] [address] [place] [address] [email or web address] Attributed Provider 09/01/21 07/03/23 [facility] [phone]. Consulting Provider 08/22/23 [facility] Connect 12/24/23 03/11/24 Cyril Morales [address] [place] [address] Nurse Practitioner 02/27/24 documented as of this encounter Additional Source Comments The information contained in this document represents components of the legal health record. It is not the complete legal health record.[facility]
--- OUTSIDE RECORDS SUMMARY | 2025-02-09 20:10 | XMS_ITS | Encounter Summary ---
Author Organization [facility] Address [facility] [employer] [address] [address] Phone Care Team Providers Care Senior Property Manager Name Role Phone Tasha [place] MD Primary Care Provider [phone] Artie Meehan MD Primary Care Provider [phone] Artie Meehan MD Primary Care Provider [phone] Artie Meehan MD Unavailable Meera Campos Unavailable [phone] Amber Raygoza NP Unavailable [phone] Elvis Rendon MD Unavailable [phone] Modesta Rivera MD Unavailable [phone] Carlin Newman MD Unavailable [phone] Patti Bello MD Unavailable Lucila Melendez MD Unavailable [phone] Juan J Avitia DO Unavailable [phone] Tasha [place] MD Unavailable Mekhi Hernandez MD Unavailable Leora Fish PA-C Unavailable Angel Klein MD Unavailable Fredy Bruno MD Unavailable [phone] Sejal Dick MD Unavailable Cadence Rouse MD Unavailable [phone] Baljinder Hinson MD Unavailable [phone] Rina Swenson MD Unavailable Laura Mock [...] Procedure Pass [facility] [address] [place] [address] Social History Tobacco Use Types Packs/Day Years [...] Pre-Admission Testing [facility] [address] [place] [address] Irineo Ruff MD [address] [place] [address] [email or web address] 03/15/2025 Procedure Pass [facility] Endoscopy Department [address] [place] [address] 03/15/2025 7:30 AM EST Hospital Encounter [facility] Endoscopy Department [address] [place] [address] Irineo Ruff MD [address] [place] [address] [email or web address] 03/15/2025 7:30 AM EST - 03/15/2025 8:15 AM EST Surgery [facility] Endoscopy Department [address] [place] [address] Irineo Ruff MD [address] [place] [address] [email or web address] Scheduled Procedures Name [...] as of this encounter Care Teams Senior Property Manager Relationship Specialty Start Date End Date Tahsa Greenwood MD [address] [place] [address] 2nd [place] [address] PCP - General 08/24/13 07/08/17 Artie Meehan MD [address] [place] [address] [place] [address] PCP - General Internal Medicine 07/09/17 10/25/17 Artie Meehan MD [address] [place] [address] [place] [address] PCP - General Internal Medicine 10/26/17 06/03/21 Laura Mock MD, DMD 1 [facility] [address] [place] [address] [email or web address] PCP - General Internal Medicine 06/04/21 11/11/23 Pcp, Unknown PCP - General 11/12/23 11/16/23 Laura Mock MD, DMD [address] [address] [email or web address] PCP - General Internal Medicine 11/17/23 12/28/23 Pcp, Unknown PCP - General 02/28/24 03/04/24 Nicole Newell MD [address] [place] [address] PCP - General 03/05/24 05/17/24 Laura Mock MD, DMD 1 [facility] [address] [place] [address] [email or web address] PCP - General Internal Medicine 05/18/24 Artie Meehan MD [address] [place] [address] [place] [address] Internal Medicine 10/26/17 04/23/22 Meera Campos PA [facility] [place] [address] Historical LMR Provider 12/14/16 Amber Raygoza NP [address] [place] [address] [address] [place] [address] Historical LMR Provider 12/14/16 Elvis Rendon MD [address] [place] [address], [address] [place] [address] Historical LMR Provider 12/14/16 8 Modesta Rivera MD [address] [place] [address], [address] [place] [address] Historical LMR Provider 12/14/16 Carlin Newman MD [address] [place] [address], 2[address] [place] [address] Historical LMR Provider 12/14/16 Patti Bello MD [address] [place] [address], 2nd [place] [address] Historical LMR Provider 12/14/16 07/08/17 Lucila Melendez MD [address] [place] [address], [address] [place] [address] Historical LMR Provider 12/14/16 07/08/17 Juan J Avitia DO 4 [facility], [place] [address] [email or web address] Historical LMR Provider 12/14/16 07/08/17 Tasha [place] MD [address] [place] [address], 2nd [place] [address] [email or web address] Historical LMR Provider 12/14/16 07/08/17 Mekhi Hernandez MD [address] [place] [address] [place] [address] [email or web address] Historical LMR Provider 12/14/16 07/08/17 Leora Fish PA-C [address] [place] [address] [facility] [address] [email or web address] Historical LMR Provider 12/14/16 8 Angel Klein MD [address] [place] [address], [address] [place] [address] [email or web address] Historical LMR Provider 12/14/16 Fredy Bruno MD [address] [place] [address] Historical LMR Provider 12/14/16 Sejal Dick MD [address] [place] [address] Orth[facility], [facility] [place] [address] Historical LMR Provider 12/14/1607/08 Cadence Rouse MD [address] [place] [address] Historical LMR Provider 12/14/16 Baljinder Hinson MD [address] [place] [address] Historical LMR Provider 12/14/16 Rina Swenson MD [address] [place] [address] Psychiatry 07/09/17 Laura Mock MD, DMD [address] [address] [email or web address] Attributed Provider 09/01/21 07/03/23 Laura Mock MD, DMD [address] [address] [email or web address] Insurance Assigned Provider 05/31/23 03/01/24 Jakob Bob MD [address] [place] [address] [address] [place] [address] [email or web address] Cardiology 08/22/23 Jose Cruz MD [address] [place] [address], [address] [place] [address] Cardiology 08/22/23 Laura Mock MD, DMD 1 [facility] [address] [place] [address] [email or web address] Attributed Provider 09/01/21 07/03/23 [facility] [phone]. Consulting Provider 08/22/23 [facility], [facility] Connect 12/24/23 03/11/24 Cyril Morales [address] [place] [address] Nurse Practitioner 02/27/24 documented as of this encounter Additional Source Comments The information contained in this document represents components of the legal health record. It is not the complete legal health record.[facility]
--- OUTSIDE RECORDS SUMMARY | 2025-02-09 20:10 | XMS_ITS | Encounter Summary ---
Author Organization [facility] Address [address] [facility] [address] [place] [address] Phone Care Team Providers Care Sales Representative Name Role Phone Artie Meehan MD Primary Care Provider [phone] Artie Meehan MD Unavailable Rina Swenson MD Unavailable Laura Mock MD, DMD Primary Car e Provider Laura Mock MD, DMD Unavailable Laura Mock MD, DMD Unavailable Jakob Bob MD Unavailable [phone] Jose Cruz MD Unavailable [phone] Laura Mock MD, DMD Unavailable Pcp, Unknown Primary Care Provider UnavailLaura Ascencio MD, DMD Primary Car e Provider Pcp, Unknown Primary Care Provider UnavailNicole Arguello MD Primary Care Provide r Laura Mock MD, DMD Primary Car e Provider Encounter Details Date Type Department Care Team (Late st Contact Info) Description 10/26/2017 Procedure Pass [facility], Ct Scan - [address] [address] Social History Tobacco Use Types Packs/Day Years [...] Upcoming Encounters Date Type Department Care Team ([facility] st Contact Info) Description 03/08/2025 9:30 AM EST Pre-Admission Testing [address] 2nd [place] [address] Irineo Ruff MD [address] [place] [address] [email or web address] 03/15/2025 Procedure Pass [facility] Endoscopy Department [address] [place] [address] 03/15/2025 7:30 AM EST Hospital Encounter [facility] Endoscopy Department [address] [place] [address] Irineo Ruff MD [address] [place] [address] [email or web address] 03/15/2025 7:30 AM EST - 03/15/2025 8:15 AM EST Surgery [facility] Endoscopy Department [address] [place] [address] Irineo Ruff MD [address] [place] [address] [email or web address] [email or web address] Scheduled Procedures Name Priority [...] as of this encounter Care Teams Sales Representative Relationship Specialty Start Date End Date Artie Meehan MD [address] [place] [address] Dr Dior [facility] [place] [place] [address] PCP - General Internal Medicine 10/26/17 06/03/21 Laura Mock MD, DMD [address] [address] [email or web address] PCP - General Internal Medicine 06/04/21 11/11/23 Pcp, Unknown PCP - General 11/12/23 11/16/23 Laura Mock MD, DMD [address] [address] [email or web address] PCP - General Internal Medicine 11/17/23 12/28/23 Pcp, Unknown PCP - General 02/28/24 03/04/24 [place] [address] [place] [address] PCP - General 03/05/24 05/17/24 Laura Mock MD, DMD [address] [address] [email or web address] PCP - General Internal Medicine 05/18/24 Artie Meehan MD [address] [place] [address] [place] [address] Internal Medicine 10/26/17 04/23/22 Rina Swenson MD [address] [place] [address] [place] [address] Psychiatry 07/09/17 Laura Mock MD, DMD [address] [address] [email or web address] Partners Attributed Provider 09/01/21 07/03/23 Laura Mock MD, DMD [address] [address] [email or web address] Insurance Assigned Provider 05/31/23 03/01/24 Jakob Bob MD [address] [place] [address] [email or web address] Cardiology 08/22/23 Jose Cruz MD [address] [place] [address] Cardiology 08/22/23 Laura Mock MD, DMD [address] [address] [email or web address] Partners Attributed Provider 09/01/21 07/03/23 [facility] [phone]. Consulting Provider 08/22/23 CARMINA, CAROLANN Connect 12/24/23 03/11/24 Cyril Morales [address] [place] [address] Nurse Practitioner 02/27/24 documented as of this encounter Additional Source Comments The information contained in this document represents components of the legal health record. It is not the complete legal health record.[facility]
--- OUTSIDE RECORDS SUMMARY | 2025-02-09 20:10 | XMS_ITS | Encounter Summary ---
Author Organization [facility] Address [address] [employer] [facility] [address] [place] [address] Phone Care Team Providers Care Entertainment Agent Name Role Phone Artie Meehan MD Primary Care Provider [phone] Artie Meehan MD Unavailable Rina Swenson MD Unavailable [phone] Laura Mock MD, DMD Primary Car e Provider Laura Mock MD, DMD Unavailable Laura Mock MD, DMD Unavailable Jakob Bob MD Unavailable [phone] Jose Cruz MD Unavailable Laura Mock MD, DMD Unavailable Pcp, Unknown Primary Care Provider UnavailLaura Ascencio MD, DMD Primary Car e Provider Pcp, Unknown Primary Care Provider UnavailNicole Arguello MD Primary Care Provide r Laura Mock MD, DMD Primary Car e Provider Encounter Details Date Type Department Care Team (Late st Contact Info) Description 05/23/2018 Transcribe Orders [facility] [address] [place] [address] Artie Meehan MD [address] [place] [address] [place] [address] 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 Social History [...] 03/08/2025 9:30 AM EST Pre-Admission Testing [address] 2nd [place] [address] Irineo Ruff MD [address] [place] [address] [email or web address] 03/15/2025 Procedure Pass [facility] Endoscopy Department [address] [place] [address] 03/15/2025 7:30 AM EST Hospital Encounter [facility] Endoscopy Department [address] [place] [address] Irineo Ruff MD [address] [place] [address] [email or web address] 03/15/2025 7:30 AM EST - 03/15/2025 8:15 AM EST Surgery [facility] Endoscopy Department [address] [place] [address] Irineo Ruff MD [address] [place] [address] [place] [address] [email or web address] COLONOSCOPY Scheduled Procedures Name Priority Associated Diagnoses Date/Ti me COLONOSCOPY Abnormal colonoscopy 03/15/2025 7:30 AM EST documented as of this encounter Procedures Procedure Name Priority Date/Time Associated Diagnosis Comments PT-INR STAT 05/23/2018 11:36 AM EDT 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 documented in this encounter Results * (ABNORMAL) PT-INR (05/23/2018 11:36 AM EDT) PT 14.8(H) 10.2 - 12.9 sec [facility] INR 1.3(H) 0.9 - 1.1 [facility] Comment:Therapeutic range fo r oral Vitamin K antagonists: 2.0-3.5 Blood 05/23/2018 11:3 6 AM EDT 05/23/2018 11:39 AM EDT us Artie Meehan MD LAB BLOOD BKR ORDERABLES Final Result [facility] [address] [place] [address] documented in this encounter Visit Diagnoses Diagnosis 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 [address] [place] [address] [email or web address] PCP - General Internal Medicine 06/04/21 11/11/23 Pcp, Unknown PCP - General 11/12/23 11/16/23 Laura Mock MD, DMD [address] [address] [email or web address] PCP - General Internal Medicine 11/17/23 12/28/23 Pcp, Unknown PCP - General 02/28/24 03/04/24 Nicole Newell MD [address] [place] [address] PCP - General 03/05/24 05/17/24 Laura Mock MD, DMD [address] [address] [email or web address] PCP - General Internal Medicine 05/18/24 Artie Meehan MD [address] [place] [address] [address] Internal Medicine 10/26/17 04/23/22 Rina Swenson MD [address] [place] [address] [address] Psychiatry 07/09/17 Laura Mock MD, DMD [address] [address] [email or web address] Attributed Provider 09/01/21 07/03/23 Laura Mock MD, DMD 1 [facility] [address] [place] [address] [email or web address] Insurance Assigned Provider 05/31/23 03/01/24 Jakob Bob MD 75 [facility] [address] [place] [address] [email or web address] Cardiology 08/22/23 Jose Cruz MD [address] [place] [address], [facility] [address] [place] [address] [email or web address] Cardiology 08/22/23 Laura Mock MD, DMD 1 [facility] [address] [place] [address] [email or web address] Partners Attributed Provider 09/01/21 07/03/23 [facility] [phone]. Consulting Provider 08/22/23 [facility] Connect 12/24/23 03/11/24 Cyril Morales [address] [place] [phone] Nurse Practitioner 02/27/24 documented as of this encounter Additional Source Comments The information contained in this document represents components of the legal health record. It is not the complete legal health record.[facility]
== END 2025-02-09 16:34 | disposition home or self-care (01) ==
LOC: HO.HMCH 15:09
PROVIDERS: PCP Internal Medicine; Visit Provider Internal Medicine
DX: I10 Essential (primary) hypertension (principal); E78.00 Pure hypercholesterolemia, unspecified; Z95.2 Presence of prosthetic heart valve; R06.09 Other forms of dyspnea; K86.2 Cyst of pancreas; M81.0 Age-related osteoporosis without current pathological fracture; E55.9 Vitamin D deficiency, unspecified; R26.81 Unsteadiness on feet; L57.0 Actinic keratosis; F41.9 Anxiety disorder, unspecified; F32.9 Major depressive disorder, single episode, unspecified

== ENCOUNTER → 2025-02-09 15:09 | Outpatient (BNVA) | payer MEDICARE, SELFPAY | PROVIDERS: PCP Internal Medicine; Visit Provider Internal Medicine | DX: I10 Essential (primary) hypertension (principal); E78.00 Pure hypercholesterolemia, unspecified; M81.0 Age-related osteoporosis without current pathological fracture; L57.0 Actinic keratosis; F32.9 Major depressive disorder, single episode, unspecified; R26.81 Unsteadiness on feet; Z95.2 Presence of prosthetic heart valve; F41.9 Anxiety disorder, unspecified; E55.9 Vitamin D deficiency, unspecified; Z79.899 Other long term (current) drug therapy | CPT/HCPCS: 99212 ==

== ENCOUNTER 2025-02-15 13:09 | Outpatient (AMB) | payer MEDICARE, SELFPAY ==
--- NOTE | 2025-02-15 13:29 | MHC.OFFVISCO ---
Intake Intake Visit Reasons: Anticoagulation Allergies latex Allergy (Intermediate, Verified 02/15/25 13:12) Rash Medication List - Last Reconciled 02/15/25 by Marjorie Suazo RN acetaminophen 500 mg PO Q6H PRN ascorbate calcium (vitamin C) 1 g PO DAILY bupropion HCl XL (Wellbutrin XL) 300 mg PO QAM clonazepam 0.5 mg PO BID PRN cyanocobalamin (vitamin B-12) PO folic acid 0.8 mg PO DAILY lisinopril 10 mg PO BID [multivitamin PO] valacyclovir mg PO [VIT D 3 K 2 PO] warfarin See Protocol 4 mg daily per INR per Anticoagulation Services 30 days Nursing Note INR: 2.9 in therapeutic range Medications and supplements reviewed- Pt wants to take Vit D 3 K2 for her bone health - it can lower her INR - she will start with 3 days / week and INR witllbe monitored and warfarin adjusted to keep INR in range No changes in health, diet, medications, or supplements, Denies any signs and symptoms of bleeding or bruising or clotting. Bleeding, bruising, clotting discussed Nutritional guidance given - eat a mix of fruits and vegetables - only add 1 supplement or herbal or herbal tea at a time Dose: 4mg x 6 days/ 6mg x 1 day F/U INR: 1 week Patient verbalizes understanding of instructions given Anti-Coag Initial Assessment Social Hx Patient Tobacco Use Status: Never used Tobacco alcohol intake: never Alcohol intake frequency: does not drink Coding Level of Care Code Est Patient Level 1 Diagnoses Current use of anticoagulant therapy Z79.01 Results AMB INR Fingerstick AMB INR Fingerstick 2.9 Last Edit by Marjorie Suazo RN on 02/15/25 13:18 manual entry Assessment & Plan Assessment & Plan (1) Current use of anticoagulant therapy: Code(s): Z79.01 - terminologist (current) use of 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
--- OUTSIDE RECORDS SUMMARY | 2025-02-15 14:12 | XMS_ITS | Encounter Summary ---
Author Organization [facility] Address [address] [facility] [address] [place] [address] Phone Care Team Providers Care Shipper And Receiving Name Role Phone Artie Meehan MD Primary Care Provider [phone] Artie Meehan MD Unavailable Rina Swesnon MD Unavailable [phone] Laura Mock MD, DMD Primary Car e Provider Laura Mock MD, DMD Unavailable Laura Mock MD, DMD Unavailable Jakob Bob MD Unavailable Jose Cruz MD Unavailable [phone] Laura Mock MD, DMD Unavailable Pcp, Unknown [...] Telephone [facility] [address] [facility] [address] [place] [address] Maureen [email or web address] Question regarding Symtoms (Former pt. of Dr. [...] Pre-Admission Testing [facility] [address] [facility] 2nd [place] [address] Irineo Ruff MD [address] [place] [address] [email or web address] 03/15/2025 Procedure Pass [facility] Endoscopy Department [address] [place] [address] 03/15/2025 7:30 AM EST Hospital Encounter [facility] Endoscopy Department [address] [place] [address] Irineo Ruff MD [address] [place] [address] [email or web address] 03/15/2025 7:30 AM EST - 03/15/2025 8:15 AM EST Surgery [facility] Endoscopy Department [address] [place] [address] Irineo Ruff MD [address] [place] [address] [place] [address] [email or web address] [email or web address] Scheduled Procedures Name [...] documented as of this encounter Care Teams Shipper And Receiving Relationship Specialty Start Date End Date Artie Meehan MD [address] [place] [address] [address] PCP - General Internal Medicine 10/26/17 06/03/21 Laura Mock MD, DMD [address] [address] [email or web address] PCP - General Internal Medicine 06/04/21 11/11/23 Pcp, Unknown PCP - General 11/12/23 11/16/23 Laura Mock MD, DMD 1 [employer] [address] [place] [address] [email or web address] PCP - General Internal Medicine 11/17/23 12/28/23 Pcp, Unknown PCP - General 02/28/24 03/04/24 [place] New[place] [address] [place] [address] PCP - General 03/05/24 05/17/24 Laura Mock MD, DMD [address] [address] [email or web address] PCP - General Internal Medicine 05/18/24 Artie Meehan MD [address] [place] [address] Dr [address] [place] [address] Internal Medicine 10/26/17 04/23/22 Rina Swenson MD [address] [place] [address] Dr [address] [place] [address] Psychiatry 07/09/17 Laura Mock MD, DMD [address] [address] [email or web address] Attributed Provider 09/01/21 07/03/23 Laura Mock MD, DMD [address] [address] [email or web address] Insurance Assigned Provider 05/31/23 03/01/24 Jakob Bob MD [address] [place] [address] [place] [address] [email or web address] Cardiology 08/22/23 Jose Cruz MD [address] [place] [address] Cardiology 08/22/23 Laura Mock MD, DMD [address] [employer] [address] [place] [address] [email or web address] Attributed Provider 09/01/21 07/03/23 [facility] [phone]. Consulting Provider 08/22/23 CAROLANN [place] Connect 12/24/23 03/11/24 Cyril Morales [address] [place] [address] Nurse Practitioner 02/27/24 documented as of this encounter Additional Source Comments The information contained in this document represents components of the legal health record. It is not the complete legal health record.[facility]
--- OUTSIDE RECORDS SUMMARY | 2025-02-15 14:12 | XMS_ITS | Encounter Summary ---
Author Organization [facility] Address [address] [employer] [facility] [address] [place] [address] Phone Care Team Providers Care Pizza Delivery Name Role Phone Artie Meehan MD Primary Care Provider [phone] Artie Meehan MD Unavailable [phone] Rina Swenson MD Unavailable Laura Mock MD, DMD Primary Car e Provider Laura Mock MD, DMD Unavailable Laura Mock MD, DMD Unavailable Jakob Bob MD Unavailable Jose Cruz MD Unavailable [phone] Laura Mock MD, DMD Unavailable Pcp, Unknown Primary Care Provider UnavailLaura Ascencio MD, DMD Primary Car e Provider Pcp, Unknown Primary Care Provider UnavailNicole Arguello MD Primary Care Provide r Laura Mock MD, DMD Primary Car e Provider Encounter Details Date Type Department Care Team (Late st Contact Info) Description 11/15/2020 Transcribe Orders Virtual Department [address] [place] [address] Artie Meehan MD [address] [place] [address] [place] [address] Asymptomatic menopausal state (Primary Dx); Age-related osteoporosis [...] Description 03/08/2025 9:30 AM EST [facility] [address] [place] [address] Irineo Ruff MD [address] [place] [address] [email or web address] 03/15/2025 Procedure Pass [facility] Endoscopy Department [address] [place] [address] 03/15/2025 7:30 AM EST Hospital Encounter [facility] Endoscopy Department [address] [place] [address] Irineo Ruff MD [address] [place] [address] [email or web address] 03/15/2025 7:30 AM EST - 03/15/2025 8:15 AM EST Surgery [facility] Endoscopy Department [address] [place] [address] Irineo Ruff MD [address] [place] [address] [phone] (work) [email or web address] COLONOSCOPY Scheduled Procedures Name Priority Associated Diagnoses Date/Ti ca COLONOSCOPY Abnormal colonoscopy 03/15/2025 7:30 AM EST [...] bone mineral density was calculated at 0.409 gm/[id number] a T- score of -4 falling within [...] documented as of this encounter Care Teams Pizza Delivery Relationship Specialty Start Date End Date Artie Meehan MD [address] [place] [address] [place] [address] PCP - General Internal Medicine 10/26/17 06/03/21 Laura Mock MD, DMD 1 [facility] [address] [place] [address] [email or web address] PCP - General Internal Medicine 06/04/21 11/11/23 Pcp, Unknown PCP - General 11/12/23 11/16/23 Laura Mock MD, DMD [address] [address] [email or web address] PCP - General Internal Medicine 11/17/23 12/28/23 Pcp, Unknown PCP - General 02/28/24 03/04/24 [place] [address] [address] PCP - General 03/05/24 05/17/24 Laura Mock MD, DMD [address] [address] [email or web address] PCP - General Internal Medicine 05/18/24 Artie Meehan MD [address] [place] [address] [place] [address] Internal Medicine 10/26/17 04/23/22 Rina Swenson MD [address] [place] [address] [place] [address] Psychiatry 07/09/17 Laura Mock MD, DMD [address] [address] [email or web address] Attributed Provider 09/01/21 07/03/23 EmiliLaura ruiz MD, DMD 1 [facility] [address] [place] [address] [email or web address] Insurance Assigned Provider 05/31/23 03/01/24 Jakob Bob MD 75 [facility] [address] [place] [address] [email or web address] Cardiology 08/22/23 Jose Cruz MD [address] [place] [address] [address] [place] [address] [email or web address] Cardiology 08/22/23 Laura Mock MD, DMD [address] [address] [email or web address] Attributed Provider 09/01/21 07/03/23 [place] [facility] [phone]. Consulting Provider 08/22/23 [facility] Connect 12/24/23 03/11/24 Cyril Morales [address] [place] [address] Nurse Practitioner 02/27/24 documented as of this encounter Additional Source Comments The information contained in this document represents components of the legal health record. It is not the complete legal health record.[facility]
--- OUTSIDE RECORDS SUMMARY | 2025-02-15 14:13 | XMS_ITS | Encounter Summary ---
Author Organization [facility] Address [address] [employer] [facility] [address] [place] [address] Phone Care Team Providers Care Customer Management Specialist Name Role Phone Artie Meehan MD Primary Care Provider [phone] Artie Meehan MD Unavailable Rina Swenson MD [...] st Contact Info) Description 11/07/2020 Procedure Pass [facility], [address] [address] Social History Tobacco Use Types Packs/Day Years [...] Encounters Date Type Department Care Team ([facility] st Contact Info) Description 03/08/2025 9:30 AM EST Pre-Admission Testing [address] [place] [address] Irineo Ruff MD [address] [place] [address] [email or web address] 03/15/2025 Procedure Pass [facility] Endoscopy Department [address] [place] [address] 03/15/2025 7:30 AM EST Hospital Encounter [facility] Endoscopy Department [address] [place] [address] Irineo Ruff MD [address] [place] [address] [email or web address] 03/15/2025 7:30 AM EST - 03/15/2025 8:15 AM EST Surgery [facility] Endoscopy Department [address] [place] [address] Irineo Ruff MD [address] [place] [address] [email or web address] COLONOSCOPY Scheduled Procedures [...] as of this encounter Care Teams Customer Management Specialist Relationship Specialty Start Date End Date Artie Meehan MD [address] [place] [address] Dr Dior [facility] [place] [id number] PCP - General Internal Medicine 10/26/17 06/03/21 Laura Mock MD, DMD [address] [address] [email or web address] PCP - General Internal Medicine 06/04/21 11/11/23 Pcp, Unknown PCP - General 11/12/23 11/16/23 Laura Mock MD, DMD [address] [address] [email or web address] PCP - General Internal Medicine 11/17/23 12/28/23 Pcp, Unknown PCP - General 02/28/24 03/04/24 [place] [address] [place] [address] PCP - General 03/05/24 05/17/24 Laura Mock MD, DMD [address] [address] [email or web address] PCP - General Internal Medicine 05/18/24 Artie Meehan MD [address] [place] [address] [place] [id number] Internal Medicine 10/26/17 04/23/22 Rina Swenson MD [address] [place] [address] [place] [id number] Psychiatry 07/09/17 Laura Mock MD, DMD [address] [address] [email or web address] Partners Attributed Provider 09/01/21 07/03/23 Laura Mock MD, DMD [address] [address] [email or web address] Insurance Assigned Provider 05/31/23 03/01/24 Jakob Bob MD [address] [place] [address] [email or web address] Cardiology 08/22/23 Jose Cruz MD [address] [place] [address] Cardiology 08/22/23 Laura Mock MD, DMD [address] [address] [email or web address] Partners Attributed Provider 09/01/21 07/03/23 [place] [facility] [phone]. Consulting Provider 08/22/23 CARMINA, CAROLANN Connect 12/24/23 03/11/24 Cyril Morales [address] [place] [address] Nurse Practitioner 02/27/24 documented as of this encounter Additional Source Comments The information contained in this document represents components of the legal health record. It is not the complete legal health record.[facility]
--- OUTSIDE RECORDS SUMMARY | 2025-02-15 14:13 | XMS_ITS | Encounter Summary ---
Author Organization [facility] Address [address] [place] [address] Phone Care Team Providers Care Capper Machine Operator Name Role Phone Artie Meehan [...] [facility]-coag visit [facility] [address] [place] [address] Melvin Stewart, [facility] [address] [place] [address] [email or web address] Social History Tobacco Use Types Packs/Day Years [...] 03/08/2025 9:30 AM EST Pre-Admission Testing [address] [address] Irineo Ruff MD [address] [place] [address] [email or web address] 03/15/2025 Procedure Pass [facility] Endoscopy Department [address] [place] [address] 03/15/2025 7:30 AM EST Hospital Encounter [facility] Endoscopy Department [address] [place] [address] Irineo Ruff MD [address] [place] [address] [email or web address]@[email or web address] 03/15/2025 7:30 AM EST - 03/15/2025 8:15 AM EST Surgery [facility] Endoscopy Department [address] [place] [address] Irineo Ruff MD [address] [place] [address] [email or web address] COLONOSCOPY Scheduled Procedures Name Priority [...] documented as of this encounter Care Teams Capper Machine Operator Relationship Specialty Start Date End Date Laura Mock MD, DMD [address] [address] [email or web address] PCP - General Internal Medicine 06/04/21 11/11/23 Pcp, Unknown PCP - General 11/12/23 11/16/23 Laura Mock MD, DMD [address] [address] [email or web address] PCP - General Internal Medicine 11/17/23 12/28/23 Pcp, Unknown PCP - General 02/28/24 03/04/24 [place] [address] [address] PCP - General 03/05/24 05/17/24 Laura Mock MD, DMD [address] [address] [email or web address] PCP - General Internal Medicine 05/18/24 Artie Meehan MD [address] [place] [address] [place] [address] Internal Medicine 10/26/17 04/23/22 Rina Swenson MD [address] [place] [address] Dr Dior Elis[place] [address] Psychiatry 07/09/17 Laura Mock MD, DMD [address] [address] [email or web address] Attributed Provider 09/01/21 07/03/23 Laura Mock MD, DMD [address] [address] [email or web address] Insurance Assigned Provider 05/31/23 03/01/24 Jakob Bob MD [address] [place] [address] [place] [address] [email or web address] Cardiology 08/22/23 Jose Cruz MD [address] [place] [address] Cardiology 08/22/23 Laura Mock MD, DMD [address] [address] [email or web address] Attributed Provider 09/01/21 07/03/23 [facility] [phone]. Consulting Provider 08/22/23 CARMINA, PC Connect 12/24/23 03/11/24 Cyril Morales [address] [place] [address] Nurse Practitioner 02/27/24 documented as of this encounter Additional Source Comments The information contained in this document represents components of the legal health record. It is not the complete legal health record.[facility]
--- OUTSIDE RECORDS SUMMARY | 2025-02-15 14:13 | XMS_ITS | Encounter Summary ---
Author Organization [facility] Address [facility] [employer] [address] [address] Phone Care Team Providers Care Upholstery Parts Sorter Name Role Phone Artie Meehan MD Unavailable Rina Swenson MD Unavailable Laura Mock MD, DMD Primary Car e Provider Laura Mock MD, DMD Unavailable Laura Mock MD, DMD Unavailable Jakob Bob MD Unavailable Jose Cruz MD Unavailable [phone] Laura Mock MD, DMD Unavailable Pcp, Unknown [...] Description 03/08/2025 9:30 AM EST Pre-Admission Testing [address] 2nd [place] [address] Irineo Ruff MD [address] [place] [address] [email or web address] 03/15/2025 Procedure Pass [facility] Endoscopy Department [address] [place] [address] 03/15/2025 7:30 AM EST Hospital Encounter [facility] Endoscopy Department [address] [place] [address] Irineo Ruff MD [address] [place] [address] [email or web address] 03/15/2025 7:30 AM EST - 03/15/2025 8:15 AM EST Surgery [facility] Endoscopy Department [address] [place] [address] Irineo Ruff MD [address] [place] [address] [email or web address] [email or web address] Scheduled Procedures Name Priority Associated Diagnoses [...] documented as of this encounter Care Teams Upholstery Parts Sorter Relationship Specialty Start Date End Date Laura Mock MD, DMD [address] [address] [email or web address] PCP - General Internal Medicine 06/04/21 11/11/23 Pcp, Unknown PCP - General 11/12/23 11/16/23 Laura Mock MD, DMD [address] [address] [email or web address] PCP - General Internal Medicine 11/17/23 12/28/23 Pcp, Unknown PCP - General 02/28/24 03/04/24 [place] [address] [address] PCP - General 03/05/24 05/17/24 Laura Mock MD, DMD [address] [address] [email or web address] PCP - General Internal Medicine 05/18/24 Artie Meehan MD [address] [place] [address] Dr Dior [facility] [place] [address] Internal Medicine 10/26/17 04/23/22 Rina Swenson MD [address] [place] [address] [place] [address] Psychiatry 07/09/17 Laura oMck MD, DMD [address] [address] [email or web address] Attributed Provider 09/01/21 07/03/23 Laura Mock MD, DMD [address] [address] [email or web address] Insurance Assigned Provider 05/31/23 03/01/24 Jakob Bob MD [address] [place] [address] [email or web address] Cardiology 08/22/23 Jose Cruz MD [address] [place] [address] Cardiology 08/22/23 Laura Mock MD, DMD [address] [address] [email or web address] Attributed Provider 09/01/21 07/03/23 [place] [facility] [phone]. Consulting Provider 08/22/23 WHBlanca, PC Connect 12/24/23 03/11/24 Cyril Morales [address] [place] [address] Nurse Practitioner 02/27/24 documented as of this encounter Additional Source Comments The information contained in this document represents components of the legal health record. It is not the complete legal health record.[facility]
--- OUTSIDE RECORDS SUMMARY | 2025-02-15 14:13 | XMS_ITS | Encounter Summary ---
Author Organization [facility] Address [address] [place] [address] Phone Care Team Providers Care Diagnostic Tech Name Role Phone Artie Meehan MD Unavailable Rina Swenson MD Unavailable [phone] Laura Mock MD, DMD Primary Car e Provider Laura Mock MD, DMD Unavailable Laura Mock MD, DMD Unavailable Jakob Bob MD Unavailable [phone] Jose Cruz MD Unavailable [phone] Laura Mock MD, DMD Unavailable Pcp, Unknown [...] PharmD [address] Pharm[place] [address] [email or web address] [...] ([facility] st Contact Info) Description 03/08/2025 9:30 AM EST Pre-Admission Testing [address] [address] Irineo Ruff MD [address] [place] [address] [email or web address] 03/15/2025 Procedure Pass [facility] Endoscopy Department [address] [place] [address] 03/15/2025 7:30 AM EST Hospital Encounter [facility] Endoscopy Department [address] [place] [address] Irineo Ruff MD [address] [place] [address] [email or web address] 03/15/2025 7:30 AM EST - 03/15/2025 8:15 AM EST Surgery [facility] Endoscopy Department [address] [place] [address] Irineo Ruff MD [address] [place] [address] [email or web address] COLONOSCOPY Scheduled Procedures Name [...] documented as of this encounter Care Teams Diagnostic Tech Relationship Specialty Start Date End Date Laura Mock MD, DMD [address] [address] [email or web address] PCP - General Internal Medicine 06/04/21 11/11/23 Pcp, Unknown PCP - General 11/12/23 11/16/23 Laura Mock MD, DMD [address] [address] [email or web address] PCP - General Internal Medicine 11/17/23 12/28/23 Pcp, Unknown PCP - General 02/28/24 03/04/24 [place] [address] [address] PCP - General 03/05/24 05/17/24 Laura Mock MD, DMD [address] [address] [email or web address] PCP - General Internal Medicine 05/18/24 Artie Meehan MD [address] [place] [address] [place] [address] Internal Medicine 10/26/17 04/23/22 Rina Swenson MD [address] [place] [address] [place] [address] Psychiatry 07/09/17 Laura Mock MD, DMD 1 [facility] [address] [place] [address] [email or web address] Partners Attributed Provider 09/01/21 07/03/23 Laura Mock MD, DMD [address] [address] [email or web address] Insurance Assigned Provider 05/31/23 03/01/24 Jakob Bob MD [address] [place] [address] [email or web address] Cardiology 08/22/23 Jose Cruz MD [address] [place] [address] Cardiology 08/22/23 Laura Mock MD, DMD [address] [address] [email or web address] Partners Attributed Provider 09/01/21 07/03/23 [place] [facility] [phone]. Consulting Provider 08/22/23 [facility] Connect 12/24/23 03/11/24 Cyril Morales [address] [place] [phone] Nurse Practitioner 02/27/24 documented as of this encounter Additional Source Comments The information contained in this document represents components of the legal health record. It is not the complete legal health record.[facility]
--- OUTSIDE RECORDS SUMMARY | 2025-02-15 14:13 | XMS_ITS | Encounter Summary ---
Author Organization [facility] Address [address] [facility] [address] [place] [address] Phone Care Team Providers Care Cogeneration Technician Name Role Phone Artie Meehan MD [...] [facility]-coag [facility] [address] [place] [address] Rony Amaro, PharmD [address] [facility] [address] [place] [address] [email or web address] Social History Tobacco Use Types [...] 03/08/2025 9:30 AM EST Pre-Admission Testing [address] [place] [address] Irineo Ruff MD [address] [place] [address] [email or web address] 03/15/2025 Procedure Pass [facility] Endoscopy Department [address] [place] [address] 03/15/2025 7:30 AM EST Hospital Encounter [facility] Endoscopy Department [address] [place] [address] Irineo Ruff MD [address] [place] [address] [email or web address]@[facility] 03/15/2025 7:30 AM EST - 03/15/2025 8:15 AM EST Surgery [facility] Endoscopy Department [address] [place] [address] Irineo Ruff MD [address] [place] [address] [place] [address] [email or web address] COLONOSCOPY Scheduled Procedures Name Priority [...] documented as of this encounter Care Teams Cogeneration Technician Relationship Specialty Start Date End Date Laura Mock MD, DMD [address] [address] [email or web address] PCP - General Internal Medicine 06/04/21 11/11/23 Pcp, Unknown PCP - General 11/12/23 11/16/23 Laura Mock MD, DMD [address] [address] [email or web address] PCP - General Internal Medicine 11/17/23 12/28/23 Pcp, Unknown PCP - General 02/28/24 03/04/24 Nicole Newell MD [address] [place] [address] PCP - General 03/05/24 05/17/24 Laura Mock MD, DMD [address] [address] [email or web address] PCP - General Internal Medicine 05/18/24 Artie Meehan MD [address] [place] [address] [place] [address] Internal Medicine 10/26/17 04/23/22 Rina Swenson MD [address] [place] [address] [place] [address] Psychiatry 07/09/17 Laura Mock MD, DMD [address] [address] [email or web address] Partners Attributed Provider 09/01/21 07/03/23 Laura Mock MD, DMD [address] [address] [email or web address] Insurance Assigned Provider 05/31/23 03/01/24 Jakob Bob MD [address] [place] [address] [place] [address] [email or web address] Cardiology 08/22/23 Jose Cruz MD [address] [place] [address] Cardiology 08/22/23 Laura Mock MD, DMD [address] [address] [email or web address] Partners Attributed Provider 09/01/21 07/03/23 [facility] [phone]. Consulting Provider 08/22/23 CARIMNA, PC Connect 12/24/23 03/11/24 Cyril Morales [address] [place] [address] Nurse Practitioner 02/27/24 documented as of this encounter Additional Source Comments The information contained in this document represents components of the legal health record. It is not the complete legal health record.[facility]
--- OUTSIDE RECORDS SUMMARY | 2025-02-15 14:13 | XMS_ITS | Encounter Summary ---
Author Organization [facility] Address [address] [employer] [facility] [address] [place] [address] Phone Care Team Providers Care Emissions Testing And Repair Technician Name Role Phone Rina Swenson MD Unavailable [phone] Laura Mcok MD, DMD Primary Car e Provider Laura Mock MD, DMD Unavailable Laura Mock MD, DMD Unavailable Jakob Bob MD Unavailable [phone] Jose Cruz MD Unavailable Laura Mock MD, DMD Unavailable Pcp, Unknown Primary Care Provider UnavailLaura Ascencio MD, DMD Primary Car e Provider Pcp, Unknown Primary Care Provider UnavailNicole Arguello MD Primary Care Provide r Laura Mock MD, DMD Primary Car e Provider Encounter Details Date Type Department Care Team (Late st Contact Info) Description 01/21/2023 Anti-coag visit [facility] [address] [place] [address] Purvi Lawler, PharmD [address] [place] [address] [email or web address] Social History Tobacco Use Types Packs/Day [...] Description 03/08/2025 9:30 AM EST Pre-Admission Testing [facility] [address] [address] Irineo Ruff MD [address] [place] [address] [place] [address] [email or web address] 03/15/2025 Procedure Pass [facility] Endoscopy Department [address] [place] [address] 03/15/2025 7:30 AM EST Hospital Encounter [facility] Endoscopy Department [address] [place] [address] Irineo Ruff MD [address] [place] [address] [place] [address] [email or web address] 03/15/2025 7:30 AM EST - 03/15/2025 8:15 AM EST Surgery [facility] Endoscopy Department [address] [place] [address] Irineo Ruff MD [address] [place] [address] [place] [address] [email or web address] COLONOSCOPY Scheduled Procedures Name Priority [...] Date Laura Mock MD, DMD [address] [address] [email or web address] du PCP - General Internal Medicine 06/04/21 11/11/23 Pcp, Unknown PCP - General 11/12/23 11/16/23 Laura Mock MD, DMD [address] [address] [email or web address] PCP - General Internal Medicine 11/17/23 12/28/23 Pcp, Unknown PCP - General 02/28/24 03/04/24 [place] [address] [address] PCP - General 03/05/24 05/17/24 Laura Mock MD, DMD [address] [address] [email or web address] du PCP - General Internal Medicine 05/18/24 Rina Swenson MD Psychiatry 07/09/17 Laura Mock MD, DMD [address] [address] [email or web address] du Partners Attributed Provider 09/01/21 07/03/23 Laura Mock MD, DMD [address] [address] [email or web address] du Insurance Assigned Provider 05/31/23 03/01/24 Jakob Bob MD [address] [place] [address] [email or web address] Cardiology 08/22/23 Jose Cruz MD [address] [place] [address] Cardiology 08/22/23 Laura Mock MD, DMD [address] [address] [email or web address] Partners Attributed Provider 09/01/21 07/03/23 [facility] [phone]. Consulting Provider 08/22/23 [facility] Connect 12/24/23 03/11/24 Cyril Morales [address] [place] [phone] Nurse Practitioner 02/27/24 documented as of this encounter Additional Source Comments The information contained in this document represents components of the legal health record. It is not the complete legal health record.[facility]
--- OUTSIDE RECORDS SUMMARY | 2025-02-15 14:13 | XMS_ITS | Encounter Summary ---
Author Organization [facility] Address [facility] [employer] [address] [address] Phone Care Team Providers Care Veterinary Laboratory Diagnostician Name Role Phone Artie Meehan MD Unavailable Rina Swenson MD Unavailable Laura Mock MD, DMD Primary Car e Provider Laura Mock MD, DMD Unavailable Laura Mock MD, DMD Unavailable Jakob Bob MD Unavailable [phone] Jose rCuz MD Unavailable Laura Mock MD, [...] 03/08/2025 9:30 AM EST Pre-Admission Testing [address] 2nd [place] [address] Irineo Ruff MD [address] [place] [address] [email or web address] 03/15/2025 Procedure Pass [facility] Endoscopy Department [address] [place] [address] 03/15/2025 7:30 AM EST Hospital Encounter [facility] Endoscopy Department [address] [place] [address] Irineo Ruff MD [address] [place] [address] [email or web address] 03/15/2025 7:30 AM EST - 03/15/2025 8:15 AM EST Surgery [facility] Endoscopy Department [address] [place] [address] Irineo Ruff MD [address] [place] [address] [email or web address] COLONOSCOPY Scheduled Procedures [...] as of this encounter Care Teams Veterinary Laboratory Diagnostician Relationship Specialty Start Date End Date Laura Mock MD, DMD [address] [address] [email or web address] du PCP - General Internal Medicine 06/04/21 11/11/23 Pcp, Unknown PCP - General 11/12/23 11/16/23 Laura Mock MD, DMD [address] [address] [email or web address] PCP - General Internal Medicine 11/17/23 12/28/23 Pcp, Unknown PCP - General 02/28/24 03/04/24 [place] [address] [address] PCP - General 03/05/24 05/17/24 Laura Mock MD, DMD [address] [address] [email or web address] du PCP - General Internal Medicine 05/18/24 Artie Meehan MD [address] [place] [address] [place] [address] Internal Medicine 10/26/17 04/23/22 Rina Swenson MD [address] [place] [address] [place] [address] Psychiatry 07/09/17 Laura Mock MD, DMD 1 [facility] [address] [place] [address] [email or web address] Partners Attributed Provider 09/01/21 07/03/23 Laura Mock MD, DMD [address] [address] [email or web address] du Insurance Assigned Provider 05/31/23 03/01/24 Jakob Bob MD [address] [place] [address] [email or web address] Cardiology 08/22/23 Jose Cruz MD [address] [place] [address] Cardiology 08/22/23 Laura Mock MD, DMD [address] [address] [email or web address] Partners Attributed Provider 09/01/21 07/03/23 [place] [facility] [phone]. Consulting Provider 08/22/23 [facility] Connect 12/24/23 03/11/24 Cyril Morales [address] [place] [phone] Nurse Practitioner 02/27/24 documented as of this encounter Additional Source Comments The information contained in this document represents components of the legal health record. It is not the complete legal health record.[facility]
--- OUTSIDE RECORDS SUMMARY | 2025-02-15 14:13 | XMS_ITS | Encounter Summary ---
Author Organization [facility] Address [address] [place] [address] [place] [address] Phone Care Team Providers Care Campaign Analyst Name Role Phone Artie Meehan MD Unavailable Rina Swenson MD Unavailable [phone] Laura Mock MD, DMD Primary Car e Provider Laura Mock MD, DMD Unavailable Laura Mock MD, DMD Unavailable Jakob Bob MD Unavailable Jose Cruz MD Unavailable [phone] Laura Mock MD, DMD Unavailable Pcp, Unknown Primary Care Provider UnavailLaura Ascencio MD, DMD Primary Car e Provider Pcp, Unknown Primary Care Provider UnavailNicole Arguello MD Primary Care Provide r Laura Mock MD, DMD Primary Car e Provider Encounter Details Date Type Department Care Team (Late st Contact Info) Description 10/19/2021 Anti-coag visit [facility] [address] [place] [address] Melvin Stewart, [facility] [address] [place] [address] [email or web address] Social History Tobacco Use Types [...] 03/08/2025 9:30 AM EST Pre-Admission Testing [address] [address] Irineo Ruff MD [address] [place] [address] [email or web address] 03/15/[address] [facility] Endoscopy Department [address] [place] [address] 03/15/2025 7:30 AM EST Hospital Encounter [facility] Endoscopy Department [address] [place] [address] Irineo Ruff MD [address] [place] [address] [email or web address] 03/15/2025 7:30 AM EST - 03/15/2025 8:[address] [facility] Endoscopy Department [address] [place] [address] Irineo Ruff MD [address] [place] [address] [email or web address] COLONOSCOPY Scheduled Procedures Name Priority Associated [...] documented as of this encounter Care Teams Campaign Analyst Relationship Specialty Start Date End Date Laura Mock MD, DMD [address] [address] [email or web address] du PCP - General Internal Medicine 06/04/21 11/11/23 Pcp, Unknown PCP - General 11/12/23 11/16/23 Laura Mock MD, DMD [address] [address] [email or web address] du PCP - General Internal Medicine 11/17/23 12/28/23 Pcp, Unknown PCP - General 02/28/24 03/04/24 [place] [address] [address] PCP - General 03/05/24 05/17/24 Laura Mock MD, DMD [address] [address] [email or web address] du PCP - General Internal Medicine 05/18/24 Artie Meehan MD [address] [place] [address] [place] [address] Internal Medicine 10/26/17 04/23/22 Rina Swenson MD [address] [place] [address] [place] [address] Psychiatry 07/09/17 Laura Mock MD, DMD [address] [address] [email or web address] Attributed Provider 09/01/21 07/03/23 Laura Mock MD, DMD [address] [address] [email or web address] du Insurance Assigned Provider 05/31/23 03/01/24 Jakob Bob MD [address] [place] [address] [email or web address] Cardiology 08/22/23 Jose Cruz MD [address] [place] [address] [email or web address] Cardiology 08/22/23 Laura Mock MD, DMD [address] [address] [email or web address] Partners Attributed Provider 09/01/21 07/03/23 [place] [facility] [phone]. Consulting Provider 08/22/23 [facility] Connect 12/24/23 03/11/24 Cyril Morales [address] [place] [address] Nurse Practitioner 02/27/24 documented as of this encounter Additional Source Comments The information contained in this document represents components of the legal health record. It is not the complete legal health record.[facility]
--- OUTSIDE RECORDS SUMMARY | 2025-02-15 14:13 | XMS_ITS | Encounter Summary ---
Author Organization [facility] Address [address] [employer] [facility] [address] [place] [address] Phone Care Team Providers Care Vice President Of Marketing Name Role Phone Artie Meehan MD Primary Care Provider [phone] Artie Meehan MD Unavailable Rina Swenson MD Unavailable Laura Mock MD, DMD Primary Car e Provider Laura Mock MD, DMD Unavailable Laura Mock MD, DMD Unavailable Jakob Bob MD Unavailable Jose Cruz MD Unavailable [phone] Laura Mock MD, DMD Unavailable Pcp, Unknown Primary Care Provider UnavailLaura Ascencio MD, DMD Primary Car e Provider Pcp, Unknown Primary Care Provider UnavailNicole Arguello MD Primary Care Provide r Laura Mock MD, DMD Primary Car e Provider Encounter Details Date Type Department Care Team (Late st Contact Info) Description 12/16/2019 Ancillary Orders Virtual Department [address] [place] [address] Artie Meehan MD [address] [place] [address] [place] [address] Breast screening Social History Tobacco Use Types [...] 03/08/2025 9:30 AM EST Pre-Admission Testing [address] [address] Irineo Ruff MD [address] [place] [address] [email or web address] 03/15/2025 Procedure Pass [facility] Endoscopy Department [address] [place] [address] 03/15/2025 7:30 AM EST Hospital Encounter [facility] Endoscopy Department [address] [place] [address] Irineo Ruff MD [address] [place] [address] [email or web address] 03/15/2025 7:30 AM EST - 03/15/2025 8:15 AM EST Surgery [facility] Endoscopy Department [address] [place] [address] Irineo Ruff MD [address] [place] [address] [place] [address] [email or web address] Scheduled Procedures Name Priority Associated Diagnoses Date/[place] COLONOSCOPY Abnormal colonoscopy 03/15/2025 7:30 AM EST [...] documented as of this encounter Care Teams Vice President Of Marketing Relationship Specialty Start Date End Date Artie Meehan MD [address] [place] [address] [place] [facility] [address] PCP - General Internal Medicine 10/26/17 06/03/21 Laura Mock MD, DMD [address] [address] [email or web address] du PCP - General Internal Medicine 06/04/21 11/11/23 Pcp, Unknown PCP - General 11/12/23 11/16/23 Laura Mock MD, DMD [address] [address] [email or web address] du PCP - General Internal Medicine 11/17/23 12/28/23 Pcp, Unknown PCP - General 02/28/24 03/04/24 [place] [address] [address] PCP - General 03/05/24 05/17/24 Laura Mock MD, DMD [address] [address] [email or web address] du PCP - General Internal Medicine 05/18/24 Artie Meehan MD [address] [place] [address] [place] [address] Internal Medicine 10/26/17 04/23/22 Rina Swenson MD [address] [place] [address] [place] [address] Psychiatry 07/09/17 Laura Mock MD, DMD 1 [facility] [address] [place] [address] [email or web address] du Partners Attributed Provider 09/01/21 07/03/23 Laura Mock MD, DMD [address] [address] [email or web address] du Insurance Assigned Provider 05/31/23 03/01/24 Jakob Bob MD [address] [place] [address] [email or web address] Cardiology 08/22/23 Jose Cruz MD [address] [place] [address] Cardiology 08/22/23 Laura Mock MD, DMD [address] [address] [email or web address] Partners Attributed Provider 09/01/21 07/03/23 [place] [facility] [phone]. Consulting Provider 08/22/23 [facility] Connect 12/24/23 03/11/24 Cyril Morales [address] [place] [phone] Nurse Practitioner 02/27/24 documented as of this encounter Additional Source Comments The information contained in this document represents components of the legal health record. It is not the complete legal health record.[facility]
--- OUTSIDE RECORDS SUMMARY | 2025-02-15 14:13 | XMS_ITS | Encounter Summary ---
Author Organization [facility] Address [facility] [employer] [address] [address] Phone Care Team Providers Care Automobile Damage Field Appraiser Name Role Phone Artie Meehan MD Unavailable Rina Swenson MD Unavailable Laura Mock MD, DMD Primary Car e Provider Laura Mock MD, DMD Unavailable Laura Mock MD, DMD Unavailable Jakob Bob MD Unavailable [phone] Jose Cruz MD Unavailable [phone] Laura Mock MD, DMD Unavailable Pcp, Unknown [...] Description 03/08/2025 9:30 AM EST Pre-Admission Testing [address] 2nd [place] [address] Irineo Ruff MD [address] [place] [address] [email or web address] 03/15/2025 Procedure Pass [facility] Endoscopy Department [address] [place] [address] 03/15/2025 7:30 AM EST Hospital Encounter [facility] Endoscopy Department [address] [place] [address] Irineo Ruff MD [address] [place] [address] [email or web address] 03/15/2025 7:30 AM EST - 03/15/2025 8:15 AM EST Surgery [facility] Endoscopy Department [address] [place] [address] Irineo Ruff MD [address] [place] [address] [email or web address] COLONOSCOPY Scheduled Procedures [...] documented as of this encounter Care Teams Automobile Damage Field Appraiser Relationship Specialty Start Date End Date Laura Mock MD, DMD [address] [address] [email or web address] du PCP - General Internal Medicine 06/04/21 11/11/23 Pcp, Unknown PCP - General 11/12/23 11/16/23 Laura Mock MD, DMD [address] [address] [email or web address] PCP - General Internal Medicine 11/17/23 12/28/23 Pcp, Unknown PCP - General 02/28/24 03/04/24 [place] [address] [address] PCP - General 03/05/24 05/17/24 Laura Mock MD, DMD [address] [address] [email or web address] du PCP - General Internal Medicine 05/18/24 Artie Meehan MD [address] [place] [address] Dr Dior [facility] [place] [id number] Internal Medicine 10/26/17 04/23/22 Rina Swenson MD [address] [place] [address] [place] [address] Psychiatry 07/09/17 Laura Mock MD, DMD [address] [address] [email or web address] Partners Attributed Provider 09/01/21 07/03/23 Laura Mock MD, DMD [address] [address] [email or web address] du Insurance Assigned Provider 05/31/23 03/01/24 Jakob Bob MD [address] [place] [address] [email or web address] Cardiology 08/22/23 Jose Cruz MD [address] [place] [address] Cardiology 08/22/23 Laura Mokc MD, DMD [address] [address] [email or web address] Partners Attributed Provider 09/01/21 07/03/23 [place] [facility] [phone]. Consulting Provider 08/22/23 [facility] Connect 12/24/23 03/11/24 Cyril Morales [address] [place] [address] Nurse Practitioner 02/27/24 documented as of this encounter Additional Source Comments The information contained in this document represents components of the legal health record. It is not the complete legal health record.[facility]
--- OUTSIDE RECORDS SUMMARY | 2025-02-15 14:13 | XMS_ITS | Encounter Summary ---
Author Organization [facility] Address [address] [facility] [address] [place] [address] Phone Care Team Providers Care Fuel Operator Name Role Phone Artie Meehan MD Primary Care Provider [phone] Artie Meehan MD Unavailable [phone] Rina Swenson MD Unavailable Laura Mock MD, [...] Contact Info) Description 07/06/2020 Procedure Pass [facility] [address] [place] [address] Social History Tobacco Use Types Packs/Day Years [...] 03/08/2025 9:30 AM EST Pre-Admission Testing [address] [address] Irineo Ruff MD [address] [place] [address] [email or web address] 03/15/2025 Procedure Pass [facility] Endoscopy Department [address] [place] [address] 03/15/2025 7:30 AM EST Hospital Encounter [facility] Endoscopy Department [address] [place] [address] Irineo Ruff MD [address] [place] [address] [email or web address] 03/15/2025 7:30 AM EST - 03/15/2025 8:15 AM EST Surgery [facility] Endoscopy Department [address] [place] [address] Irineo Ruff MD [address] [place] [address] [email or web address] [email or web address] Scheduled Procedures Name Priority [...] documented as of this encounter Care Teams Fuel Operator Relationship Specialty Start Date End Date Artie Meehan MD [address] [place] [address] Dr D[address] [place] [address] PCP - General Internal Medicine 10/26/17 06/03/21 Laura Mock MD, DMD [address] [address] [email or web address] du PCP - General Internal Medicine 06/04/21 11/11/23 Pcp, Unknown PCP - General 11/12/23 11/16/23 Laura Mock MD, DMD [address] [address] [email or web address] du PCP - General Internal Medicine 11/17/23 12/28/23 Pcp, Unknown PCP - General 02/28/24 03/04/24 [place] [address] [address] PCP - General 03/05/24 05/17/24 Laura Mock MD, DMD [address] [address] [email or web address] du PCP - General Internal Medicine 05/18/24 Artie Meehan MD [address] [place] [address] [place] [address] Internal Medicine 10/26/17 04/23/22 Rina Swenson MD [address] [place] [address] [place] [address] Psychiatry 07/09/17 Laura Mock MD, DMD [address] [address] [email or web address] Attributed Provider 09/01/21 07/03/23 Laura Mock MD, DMD [address] [address] [email or web address] Insurance Assigned Provider 05/31/23 03/01/24 Jakob Bob MD [address] [place] [address] [email or web address] Cardiology 08/22/23 Jose Cruz MD [address] [place] [address] Cardiology 08/22/23 Laura Mock MD, DMD [address] [address] [email or web address] Attributed Provider 09/01/21 07/03/23 [place] [facility] [phone]. Consulting Provider 08/22/23 [facility] Connect 12/24/23 03/11/24 Cyril Morales [address] [place] [phone] Nurse Practitioner 02/27/24 documented as of this encounter Additional Source Comments The information contained in this document represents components of the legal health record. It is not the complete legal health record.[facility]
--- OUTSIDE RECORDS SUMMARY | 2025-02-15 14:14 | XMS_ITS | Encounter Summary ---
Author Organization [facility] Address [address] [employer] [facility] [address] [place] [address] Phone Care Team Providers Care Doper Operator Name Role Phone Artie Meehan MD Primary Care Provider [phone] Artie Meehan MD Unavailable Rina Swenson MD [...] Contact Info) Description 09/06/2020 Procedure Pass [facility] [address] [place] [address] Social History Tobacco Use Types Packs/Day Years [...] 03/08/2025 9:30 AM EST Pre-Admission Testing [address] [address] Irineo Ruff MD [address] [place] [address] [email or web address] 03/15/2025 Procedure Pass [facility] Endoscopy Department [address] [place] [address] 03/15/2025 7:30 AM EST Hospital Encounter [facility] Endoscopy Department [address] [place] [address] Irineo Ruff MD [address] [place] [address] [email or web address] 03/15/2025 7:30 AM EST - 03/15/2025 8:15 AM EST Surgery [facility] Endoscopy Department [address] [place] [address] Irineo Ruff MD [address] [place] [address] [email or web address] [email or web address] Scheduled Procedures Name [...] documented as of this encounter Care Teams Doper Operator Relationship Specialty Start Date End Date Artie Meehan MD [address] [place] [address] [place] [address] [place] [address] PCP - General Internal Medicine 10/26/17 06/03/21 Laura Mock MD, DMD [address] [address] [email or web address] PCP - General Internal Medicine 06/04/21 11/11/23 Pcp, Unknown PCP - General 11/12/23 11/16/23 Laura Mock MD, DMD [address] [address] [email or web address] PCP - General Internal Medicine 11/17/23 12/28/23 Pcp, Unknown PCP - General 02/28/24 03/04/24 [place] [address] [place] [address] PCP - General 03/05/24 05/17/24 Laura Mock MD, DMD [address] [address] [email or web address] PCP - General Internal Medicine 05/18/24 Artie Meehan MD [address] [place] [address] [place] [address] Internal Medicine 10/26/17 04/23/22 Rina Swenson MD [address] [place] [address] [place] [address] Psychiatry 07/09/17 Laura Mock MD, DMD [address] [address] [email or web address] Attributed Provider 09/01/21 07/03/23 Laura Mock MD, DMD [address] [address] [email or web address] Insurance Assigned Provider 05/31/23 03/01/24 Jakob Bob MD [address] [place] [address] [email or web address] Cardiology 08/22/23 Jose Cruz MD [address] [place] [address], [address] [address] Cardiology 08/22/23 Laura Mock MD, DMD [address] [address] [email or web address] Partners Attributed Provider 09/01/21 07/03/23 [facility] [phone]. Consulting Provider 08/22/23 [facility] Connect 12/24/23 03/11/24 Cyril Morales [address] [place] [address] Nurse Practitioner 02/27/24 documented as of this encounter Additional Source Comments The information contained in this document represents components of the legal health record. It is not the complete legal health record.[facility]
--- OUTSIDE RECORDS SUMMARY | 2025-02-15 14:14 | XMS_ITS | Encounter Summary ---
Author Organization [facility] Address [address] [address] Phone Care Team Providers Care Factory Assembler Name Role Phone Artie Meehan MD Unavailable Rina Swenson MD Unavailable Laura Mock MD, DMD Primary Car e Provider Laura Mock MD, DMD Unavailable Laura Mock MD, DMD Unavailable Jakob Bob MD Unavailable Jose Cruz MD Unavailable Lauar Mock MD, DMD Unavailable Pcp, Unknown Primary Care Provider UnavailLaura Ascencio MD, DMD Primary Car e Provider Pcp, Unknown Primary Care Provider UnavailNicole Arguello MD Primary Care Provide r Laura Mock MD, DMD Primary Car e Provider Encounter Details Date Type Department Care Team (Late st Contact Info) Description 09/28/2021 Telephone [facility] [address] [place] [address] [place], [place] [address] [place] [address] [email or web address] Social History [...] 03/08/2025 9:30 AM EST Pre-Admission Testing [address] [address] Irineo Ruff MD [address] [place] [address] [place] [address] [email or web address] 03/15/2025 Procedure Pass [facility] Endoscopy Department [address] [place] [address] 03/15/2025 7:30 AM EST Hospital Encounter [facility] Endoscopy Department [address] [place] [address] Irineo Ruff MD [address] [place] [address] [email or web address] 03/15/2025 7:30 AM EST - 03/15/2025 8:15 AM EST Surgery [facility] Endoscopy Department [address] [place] [address] Irineo Ruff MD [address] [place] [address] [email or web address] COLONOSCOPY Scheduled Procedures Name [...] documented as of this encounter Care Teams Factory Assembler Relationship Specialty Start Date End Date Laura Mock MD, DMD [address] [address] [email or web address] PCP - General Internal Medicine 06/04/21 11/11/23 Pcp, Unknown PCP - General 11/12/23 11/16/23 Laura Mock MD, DMD [address] [address] [email or web address] PCP - General Internal Medicine 11/17/23 12/28/23 Pcp, Unknown PCP - General 02/28/24 03/04/24 [place] [address] [address] PCP - General 03/05/24 05/17/24 Laura Mock MD, DMD [address] [address] [email or web address] du PCP - General Internal Medicine 05/18/24 Artie Meehan MD [address] [place] [address] [place] [address] Internal Medicine 10/26/17 04/23/22 Rina Swenson MD [address] [place] [address] [place] [address] Psychiatry 07/09/17 Laura Mock MD, DMD [address] [address] [email or web address] Partners Attributed Provider 09/01/21 07/03/23 Laura Mock MD, DMD [address] [address] [email or web address] Insurance Assigned Provider 05/31/23 03/01/24 Jakob Bob MD [address] [place] [address] [place] [address] [email or web address] Cardiology 08/22/23 Jose Cruz MD [address] [place] [address] Cardiology 08/22/23 Laura Mock MD, DMD [address] [address] [email or web address] Partners Attributed Provider 09/01/21 07/03/23 [place] [facility] [phone]. Consulting Provider 08/22/23 [facility] Connect 12/24/23 03/11/24 Cyril Morales [address] [place] [address] Nurse Practitioner 02/27/24 documented as of this encounter Additional Source Comments The information contained in this document represents components of the legal health record. It is not the complete legal health record.[facility]
--- OUTSIDE RECORDS SUMMARY | 2025-02-15 14:14 | XMS_ITS | Encounter Summary ---
Author Organization [facility] Address [facility] [employer] [address] [address] Phone Care Team Providers Care Fishery Biologist Name Role Phone Rina wSenson MD Unavailable Laura Mock MD, DMD Primary Car e Provider Laura Mock MD, DMD Unavailable Laura Mock MD, DMD Unavailable Jakob Bob MD Unavailable [phone] Jose Cruz MD Unavailable Laura Mock MD, [...] 03/08/2025 9:30 AM EST Pre-Admission Testing [address] [address] Irineo Ruff MD [address] [place] [address] [email or web address] 03/15/2025 Procedure Pass [facility] Endoscopy Department [address] [place] [address] 03/15/2025 7:30 AM EST Hospital Encounter [facility] Endoscopy Department [address] [place] [address] Irineo Ruff MD [address] [place] [address] [email or web address] 03/15/2025 7:30 AM EST - 03/15/2025 8:15 AM EST Surgery [facility] Endoscopy Department [address] [place] [address] Irineo Ruff MD [address] [place] [address] [email or web address] COLONOSCOPY Scheduled Procedures Name Priority Associated [...] documented as of this encounter Care Teams Fishery Biologist Relationship Specialty Start Date End Date Laura Mock MD, DMD [address] [address] [email or web address] PCP - General Internal Medicine 06/04/21 11/11/23 Pcp, Unknown PCP - General 11/12/23 11/16/23 Laura Mock MD, DMD [address] [address] [email or web address] du PCP - General Internal Medicine 11/17/23 12/28/23 Pcp, Unknown PCP - General 02/28/24 03/04/24 [place] [address] [address] PCP - General 03/05/24 05/17/24 Laura Mock MD, DMD [address] [address] [email or web address] du PCP - General Internal Medicine 05/18/24 Rina Swenson MD Psychiatry 07/09/17 Laura Mock MD, DMD [address] [address] [email or web address] Attributed Provider 09/01/21 07/03/23 Laura Mock MD, DMD [address] [address] [email or web address] Insurance Assigned Provider 05/31/23 03/01/24 Jakob Bob MD [address] [place] [address] [email or web address] Cardiology 08/22/23 Jose Cruz MD [address] [place] [address] Cardiology 08/22/23 Laura Mock MD, DMD [address] [address] [email or web address] Partners Attributed Provider 09/01/21 07/03/23 [place] [facility] [phone]. Consulting Provider 08/22/23 [facility] Connect 12/24/23 03/11/24 Cyril Morales [address] [place] [address] Nurse Practitioner 02/27/24 documented as of this encounter Additional Source Comments The information contained in this document represents components of the legal health record. It is not the complete legal health record.[facility]
--- OUTSIDE RECORDS SUMMARY | 2025-02-15 14:14 | XMS_ITS | Encounter Summary ---
Author Organization [facility] Address [address] [facility] [address] [place] [address] Phone Care Team Providers Care Rigging And Controls Aircraft Mechanic Name Role Phone Rina Swenson MD Unavailable Laura Mock MD, DMD Primary Car e Provider Laura Mock MD, DMD Unavailable Laura Mock MD, DMD Unavailable Jakob Bob MD Unavailable [phone] Jose Cruz MD Unavailable Laura Mock MD, DMD Unavailable Pcp, Unknown Primary Care Provider UnavailLaura Ascencio MD, DMD Primary Car e Provider Pcp, Unknown Primary Care Provider UnavailNicole Arguello MD Primary Care Provide r Laura Mock MD, DMD Primary Car e Provider Encounter Details Date Type Department Care Team (Late st Contact Info) Description 12/25/2022 Procedure Pass [address] [address] Social History Tobacco Use Types Packs/Day Years [...] 03/08/2025 9:30 AM EST Pre-Admission Testing [address] [address] Irineo Ruff MD [address] [place] [address] [email or web address] 03/15/2025 Procedure Pass [facility] Endoscopy Department [address] [place] [address] 03/15/2025 7:30 AM EST Hospital Encounter [facility] Endoscopy Department [address] [place] [address] Irineo Ruff MD [address] [place] [address] [email or web address] 03/15/2025 7:30 AM EST - 03/15/2025 8:15 AM EST Surgery [facility] Endoscopy Department [address] [place] [address] Irineo Ruff MD [address] [place] [address] [email or web address] COLONOSCOPY Scheduled Procedures Name [...] documented as of this encounter Care Teams Rigging And Controls Aircraft Mechanic Relationship Specialty Start Date End Date Laura Mock MD, DMD [address] [address] [email or web address] PCP - General Internal Medicine 06/04/21 11/11/23 Pcp, Unknown PCP - General 11/12/23 11/16/23 Laura Mock MD, DMD [address] [address] [email or web address] PCP - General Internal Medicine 11/17/23 12/28/23 Pcp, Unknown PCP - General 02/28/24 03/04/24 Nicole Newell [place] [address] [place] [address] PCP - General 03/05/24 05/17/24 Laura Mock MD, DMD [address] [address] [email or web address] du PCP - General Internal Medicine 05/18/24 Rina Swenson MD Psychiatry 07/09/17 Laura Mock MD, DMD [address] [address] [email or web address] Partners Attributed Provider 09/01/21 07/03/23 Laura Mock MD, DMD [address] [address] [email or web address] du Insurance Assigned Provider 05/31/23 03/01/24 Jakob Bob MD [address] [place] [address] [email or web address] Cardiology 08/22/23 Jose Cruz MD [address] [place] [address] Cardiology 08/22/23 Laura Mock MD, DMD [address] [address] [email or web address] Partners Attributed Provider 09/01/21 07/03/23 [place] [facility] [phone]. Consulting Provider 08/22/23 [facility] Connect 12/24/23 03/11/24 Cyril Morales [address] [place] [address] Nurse Practitioner 02/27/24 documented as of this encounter Additional Source Comments The information contained in this document represents components of the legal health record. It is not the complete legal health record.[facility]
--- OUTSIDE RECORDS SUMMARY | 2025-02-15 14:14 | XMS_ITS | Encounter Summary ---
Author Organization [facility] Address [address] [place] [address] Phone Care Team Providers Care Sewing Machines Salesperson Name Role Phone Rina Swenson MD Unavailable Laura Mock MD, DMD Primary Car e Provider Laura Mock MD, DMD Unavailable Jakob Bob MD Unavailable [phone] Jose Cruz MD Unavailable Pcp, Unknown Primary Care Provider UnavailLaura Ascencio MD, DMD Primary Car e Provider Pcp, Unknown Primary Care Provider UnavailNicole Arguello MD Primary Care Provide r Laura Mock MD, DMD Primary Car e Provider Encounter Details Date Type Department Care Team (Late st Contact Info) Description 08/26/2023 Procedure Pass [facility] Endoscopy Department [address] [place] [address] Social History Tobacco Use Types Packs/Day [...] 03/08/2025 9:30 AM EST Pre-Admission Testing [address] [place] [address] Irineo Ruff MD [address] [place] [address] [email or web address] 03/15/2025 Procedure Pass [facility] Endoscopy Department [address] [place] [address] 03/15/2025 7:30 AM EST Hospital Encounter [facility] Endoscopy Department [address] [place] [address] Irineo Ruff MD [address] [place] [address] [email or web address] 03/15/2025 7:30 AM EST - 03/15/2025 8:15 AM EST Surgery [facility] Endoscopy Department [address] [place] [address] Irineo Ruff MD [address] [place] [address] [email or web address] COLONOSCOPY Scheduled Procedures Name [...] documented as of this encounter Care Teams Sewing Machines Salesperson Relationship Specialty Start Date End Date Laura Mock MD, DMD [address] [address] [email or web address] PCP - General Internal Medicine 06/04/21 11/11/23 Pcp, Unknown PCP - General 11/12/23 11/16/23 Laura Mock MD, DMD [address] [address] [email or web address] PCP - General Internal Medicine 11/17/23 12/28/23 Pcp, Unknown PCP - General 02/28/24 03/04/24 Nicole Newell MD [address] [place] [address] PCP - General 03/05/24 05/17/24 Laura Mock MD, DMD [address] [address] [email or web address] du PCP - General Internal Medicine 05/18/24 Rina Swenson MD Psychiatry 07/09/17 Laura Mock MD, DMD 1 [facility] [address] [place] [address] [email or web address] Insurance Assigned Provider 05/31/23 03/01/24 Jakob Bob MD [address] [facility] [place] [address] [email or web address] Cardiology 08/22/23 Jose Cruz MD [address] [facility], [address] [place] [address] [email or web address] Cardiology 08/22/23 [facility] [phone]. Consulting Provider 08/22/23 [facility] Connect 12/24/23 03/11/24 Cyril Morales [address] [place] [address] Nurse Practitioner 02/27/24 documented as of this encounter Additional Source Comments The information contained in this document represents components of the legal health record. It is not the complete legal health record.[facility]
--- OUTSIDE RECORDS SUMMARY | 2025-02-15 14:14 | XMS_ITS | Encounter Summary ---
Author Organization [facility] Address [address] [facility] [address] [place] [address] Phone Care Team Providers Care Printer'S Devil Name Role Phone Rina Swenson MD Unavailable Laura Mock MD, DMD Primary Car e Provider Laura Mock MD, DMD Unavailable Laura Mock MD, DMD Unavailable Jakob Bob MD Unavailable Jose Cruz MD Unavailable [phone] Laura Mock MD, DMD Unavailable Pcp, Unknown [...] [facility] [address] [place] [phone] Kenyatta Gamez, PharmD [email or web address] Social History Tobacco Use [...] 03/08/2025 9:30 AM EST Pre-Admission Testing [address] [place] [address] Irineo Ruff MD [address] [place] [address] [email or web address] 03/15/2025 Procedure Pass [facility] Endoscopy Department [address] [place] [address] 03/15/2025 7:30 AM EST Hospital Encounter [facility] Endoscopy Department [address] [place] [address] Irineo Ruff MD [address] [place] [address] [email or web address]@[facility] 03/15/2025 7:30 AM EST - 03/15/2025 8:15 AM EST Surgery [facility] Endoscopy Department [address] [place] [address] Irineo Ruff MD [address] [place] [address], [place] [address] [email or web address] [email or web address] Scheduled Procedures Name Priority [...] documented as of this encounter Care Teams Printer'S Devil Relationship Specialty Start Date End Date Laura Mock MD, DMD [address] [address] [email or web address] PCP - General Internal Medicine 06/04/21 11/11/23 Pcp, Unknown PCP - General 11/12/23 11/16/23 Laura Mock MD, DMD [address] [address] [email or web address] PCP - General Internal Medicine 11/17/23 12/28/23 Pcp, Unknown PCP - General 02/28/24 03/04/24 Nicole Newell MD [address] [place] [address] PCP - General 03/05/24 05/17/24 Laura Mock MD, DMD [address] [address] [email or web address] du PCP - General Internal Medicine 05/18/24 Rina Swenson MD Psychiatry 07/09/17 Laura Mock MD, DMD [address] [address] [email or web address] Partners Attributed Provider 09/01/21 07/03/23 Laura Mock MD, DMD [address] [address] [email or web address] Insurance Assigned Provider 05/31/23 03/01/24 Jakob Bob MD [address] [place] [address] [email or web address] Cardiology 08/22/23 Jose Cruz MD [address] [place] [address] Cardiology 08/22/23 Laura Mock MD, DMD [address] [address] [email or web address] Partners Attributed Provider 09/01/21 07/03/23 [facility] [phone]. Consulting Provider 08/22/23 [facility] Connect 12/24/23 03/11/24 Cyril Morales [address] [place] [address] Nurse Practitioner 02/27/24 documented as of this encounter Additional Source Comments The information contained in this document represents components of the legal health record. It is not the complete legal health record.[facility]
--- OUTSIDE RECORDS SUMMARY | 2025-02-15 14:14 | XMS_ITS | Encounter Summary ---
Author Organization [facility] Address [facility] [address] [address] Phone Care Team Providers Care Store Specialist Name Role Phone Rina Swenson MD Unavailable [phone] Laura Mock MD, DMD Primary Car e Provider Laura Mock MD, DMD Unavailable Laura Mock MD, DMD Unavailable Jakob Bob MD Unavailable Jose Cruz MD Unavailable [phone] Laura Mock MD, DMD Unavailable Pcp, Unknown [...] 03/08/2025 9:30 AM EST Pre-Admission Testing [address] [address] Irineo Ruff MD [address] [place] [address] [email or web address] 03/15/2025 Procedure Pass [facility] Endoscopy Department [address] [place] [address] 03/15/2025 7:30 AM EST Hospital Encounter [facility] Endoscopy Department [address] [place] [address] Irineo Ruff MD [address] [place] [address] [email or web address]@[email or web address] 03/15/2025 7:30 AM EST - 03/15/2025 8:15 AM EST Surgery [facility] Endoscopy Department [address] [place] [address] Irineo Ruff MD [address] [place] [address] [email or web address] [facility] COLONOSCOPY Scheduled Procedures Name Priority Associated Diagnoses [...] as of this encounter Care Teams Store Specialist Relationship Specialty Start Date End Date Laura Mock MD, DMD [address] [address] [email or web address] PCP - General Internal Medicine 06/04/21 11/11/23 Pcp, Unknown PCP - General 11/12/23 11/16/23 Laura Mock MD, DMD [address] [address] [email or web address] du PCP - General Internal Medicine 11/17/23 12/28/23 Pcp, Unknown PCP - General 02/28/24 03/04/24 [place] [address] [address] PCP - General 03/05/24 05/17/24 Laura Mock MD, DMD [address] [address] [email or web address] du PCP - General Internal Medicine 05/18/24 Rina Swenson MD Psychiatry 07/09/17 Laura Mock MD, DMD [address] [address] [email or web address] Attributed Provider 09/01/21 07/03/23 Laura Mock MD, DMD [address] [address] [email or web address] Insurance Assigned Provider 05/31/23 03/01/24 Jakob Bob MD [address] [place] [address] [email or web address] Cardiology 08/22/23 Jose Cruz MD [address] [place] [address] Cardiology 08/22/23 Laura Mock MD, DMD [address] [address] [email or web address] Partners Attributed Provider 09/01/21 07/03/23 [place] [facility] [phone]. Consulting Provider 08/22/23 [facility] Connect 12/24/23 03/11/24 Cyril Morales [address] [place] [address] Nurse Practitioner 02/27/24 documented as of this encounter Additional Source Comments The information contained in this document represents components of the legal health record. It is not the complete legal health record.[facility]
--- OUTSIDE RECORDS SUMMARY | 2025-02-15 14:14 | XMS_ITS | Encounter Summary ---
Author Organization [facility] Address [address] [facility] [address] [place] [address] Phone Care Team Providers Care Law Professor Name Role Phone Artie Meehan MD Primary Care Provider [phone] Artie Meehan MD Unavailable Rina Swenson MD Unavailable Laura Mock MD, DMD Primary Car e Provider Laura Mock MD, DMD Unavailable Laura Mock MD, DMD Unavailable Jakob Bob MD Unavailable Jose Cruz MD Unavailable [phone] Laura Mock MD, DMD Unavailable Pcp, Unknown Primary Care Provider UnavailLaura Ascencio MD, DMD Primary Car e Provider Pcp, Unknown Primary Care Provider UnavailNicole Arguello MD Primary Care Provide r Laura Mock MD, DMD Primary Car e Provider Encounter Details Date Type Department Care Team (Late st Contact Info) Description 12/16/2019 Procedure Pass [address] [address] Social History Tobacco Use Types Packs/Day Years [...] Upcoming Encounters Date Type Department Care Team ([facility] st Contact Info) Description 03/08/2025 9:30 AM EST Pre-Admission Testing [address] [address] Irineo Ruff MD [address] [place] [address] [email or web address] 03/15/2025 Procedure Pass [facility] Endoscopy Department [address] [place] [address] 03/15/2025 7:30 AM EST Hospital Encounter [facility] Endoscopy Department [address] [place] [address] Irineo Ruff MD [address] [place] [address] [email or web address] 03/15/2025 7:30 AM EST - 03/15/2025 8:15 AM EST Surgery [facility] Endoscopy Department [address] [place] [address] Irineo Ruff MD [address] [place] [address] [email or web address] COLONOSCOPY Scheduled Procedures Name Priority [...] documented as of this encounter Care Teams Law Professor Relationship Specialty Start Date End Date Artie Meehan MD [address] [place] [address] Dr Dior [facility] [place] [address] PCP - General Internal Medicine 10/26/17 06/03/21 Laura Mock MD, DMD [address] [address] [email or web address] PCP - General Internal Medicine 06/04/21 11/11/23 Pcp, Unknown PCP - General 11/12/23 11/16/23 Laura Mock MD, DMD [address] [address] [email or web address] du PCP - General Internal Medicine 11/17/23 12/28/23 Pcp, Unknown PCP - General 02/28/24 03/04/24 [place] [address] [place] [address] PCP - General 03/05/24 05/17/24 Laura Mock MD, DMD [address] [address] [email or web address] du PCP - General Internal Medicine 05/18/24 Artie Meehan MD [address] [place] [address] [place] [address] Internal Medicine 10/26/17 04/23/22 Rina Swenson MD [address] [place] [address] [place] [address] Psychiatry 07/09/17 Laura Mock MD, DMD [address] [address] [email or web address] Partners Attributed Provider 09/01/21 07/03/23 Laura Mock MD, DMD [address] [address] [email or web address] Insurance Assigned Provider 05/31/23 03/01/24 Jaokb Bob MD [address] [place] [address] [email or web address] Cardiology 08/22/23 Jose Cruz MD [address] [place] [address] Cardiology 08/22/23 Laura Mock MD, DMD [address] [address] [email or web address] Partners Attributed Provider 09/01/21 07/03/23 [place] [facility] [phone]. Consulting Provider 08/22/23 [facility] Connect 12/24/23 03/11/24 Cyril Morales [address] [place] [address] Nurse Practitioner 02/27/24 documented as of this encounter Additional Source Comments The information contained in this document represents components of the legal health record. It is not the complete legal health record.[facility]
--- OUTSIDE RECORDS SUMMARY | 2025-02-15 14:14 | XMS_ITS | Encounter Summary ---
Author Organization [facility] Address [address] [place] [address] Phone Care Team Providers Care Linux Security Administrator Name Role Phone Artie Meehan MD Unavailable Rina Swenson MD Unavailable Laura Mock MD, DMD Primary Car e Provider Laura Mock MD, DMD Unavailable Laura Mock MD, DMD Unavailable Jakob Bob MD Unavailable [phone] Jose Cruz MD Unavailable [phone] Laura Mock MD, DMD Unavailable Pcp, Unknown Primary Care Provider UnavailLaura Ascencio MD, DMD Primary Car e Provider Pcp, Unknown Primary Care Provider UnavailNicole Arguello MD Primary Care Provide r Laura Mock MD, DMD Primary Car e Provider Encounter Details Date Type Department Care Team (Late st Contact Info) Description 09/13/2021 Anti-coag visit [facility] [address] [place] [address] Abbie Prieto, PharmD [address] [address] [email or web address] Social History Tobacco Use Types Packs/Day [...] 03/08/2025 9:30 AM EST Pre-Admission Testing [address] 2[address] [place] [address] Irineo Ruff MD [address] [place] [address] [email or web address] 03/15/2025 Procedure Pass [facility] Endoscopy Department [address] [place] [address] 03/15/2025 7:30 AM EST Hospital Encounter [facility] Endoscopy Department [address] [place] [address] Irineo Ruff MD [address] [place] [address] [email or web address] 03/15/2025 7:30 AM EST - 03/15/2025 8:15 AM EST Surgery [facility] Endoscopy Department [address] [place] [address] Irineo Ruff MD [address] [place] [address] [place] [address] [email or web address] [email or web address] Scheduled Procedures Name Priority Associated [...] documented as of this encounter Care Teams Linux Security Administrator Relationship Specialty Start Date End Date Laura Mock MD, DMD [address] [address] [email or web address] du PCP - General Internal Medicine 06/04/21 11/11/23 Pcp, Unknown PCP - General 11/12/23 11/16/23 Laura Mock MD, DMD [address] [address] [email or web address] du PCP - General Internal Medicine 11/17/23 12/28/23 Pcp, Unknown PCP - General 02/28/24 03/04/24 [place] [address] [address] PCP - General 03/05/24 05/17/24 Laura Mock MD, DMD [address] [address] [email or web address] du PCP - General Internal Medicine 05/18/24 Artie Meehan MD [address] [place] [address] [place] [address] Internal Medicine 10/26/17 04/23/22 Rina Swenson MD [address] [place] [address] [place] [address] Psychiatry 07/09/17 Laura Mock MD, DMD [address] [address] [email or web address] du Partners Attributed Provider 09/01/21 07/03/23 Laura Mock MD, DMD [address] [address] [email or web address] du Insurance Assigned Provider 05/31/23 03/01/24 Jakob Bob MD [address] [place] [address] [email or web address] Cardiology 08/22/23 Jose Cruz MD [address] [place] [address] Cardiology 08/22/23 Laura Mock MD, DMD [address] [address] [email or web address] Partners Attributed Provider 09/01/21 07/03/23 [place] [facility] [phone]. Consulting Provider 08/22/23 [facility] Connect 12/24/23 03/11/24 Cyril Morales [address] [place] [phone] Nurse Practitioner 02/27/24 documented as of this encounter Additional Source Comments The information contained in this document represents components of the legal health record. It is not the complete legal health record.[facility]
--- OUTSIDE RECORDS SUMMARY | 2025-02-15 14:14 | XMS_ITS | Encounter Summary ---
Author Organization [facility] Address [facility] [employer] [facility] ([place], [place]) [address] [place] [address] Phone Care Team Providers Care Bung Dropper Name Role Phone Rina Swenson MD Unavailable Laura Mock MD, DMD Primary Car e Provider Laura Mock MD, DMD Unavailable Laura Mock MD, DMD Unavailable Jakob Bob MD Unavailable Jose Cruz MD Unavailable [phone] Laura Mock MD, DMD Unavailable Pcp, Unknown Primary Care Provider UnavailLaura Ascencio MD, DMD Primary Car e Provider Pcp, Unknown Primary Care Provider UnavailNicole Arguello MD Primary Care Provide r Laura Mock MD, DMD Primary Car e Provider Encounter Details Date Type Department Care Team (Late st Contact Info) Description 10/07/2022 Procedure Pass [employer] [facility] [address] [place] [id number] Social History Tobacco Use Types Packs/Day Years [...] 03/08/2025 9:30 AM EST Pre-Admission Testing [address] 2nd [place] [address] Irineo Ruff MD [address] [place] [address] [email or web address] 03/15/2025 Procedure Pass [facility] Endoscopy Department [address] [place] [address] 03/15/2025 7:30 AM EST Hospital Encounter [facility] Endoscopy Department [address] [place] [address] Irineo Ruff MD [address] [place] [address] [email or web address] 03/15/2025 7:30 AM EST - 03/15/2025 8:15 AM EST Surgery [facility] Endoscopy Department [address] [place] [address] Irineo Ruff MD [address] [place] [address] [email or web address] COLONOSCOPY Scheduled Procedures Name Priority Associated Diagnoses [...] documented as of this encounter Care Teams Bung Dropper Relationship Specialty Start Date End Date Laura Mock MD, DMD [address] [address] [email or web address] PCP - General Internal Medicine 06/04/21 11/11/23 Pcp, Unknown PCP - General 11/12/23 11/16/23 Laura Mock MD, DMD [address] [address] [email or web address] PCP - General Internal Medicine 11/17/23 12/28/23 Pcp, Unknown PCP - General 02/28/24 03/04/24 Nicole Newell MD [address] [place] [address] PCP - General 03/05/24 05/17/24 Laura Mock MD, DMD [address] [address] [email or web address] du PCP - General Internal Medicine 05/18/24 Rina Swenson MD Psychiatry 07/09/17 Laura Mock MD, DMD [address] [address] [email or web address] Partners Attributed Provider 09/01/21 07/03/23 Laura Mock MD, DMD [address] [address] [email or web address] du Insurance Assigned Provider 05/31/23 03/01/24 Jakob Bob MD [address] [place] [address] [email or web address] Cardiology 08/22/23 Jose Cruz MD [address] [place] [address] [email or web address] Cardiology 08/22/23 Laura Mock MD, DMD [address] [address] [email or web address] du Partners Attributed Provider 09/01/21 07/03/23 [facility] [phone]. Consulting Provider 08/22/23 [facility] Connect 12/24/23 03/11/24 Cyril Morales [address] [place] [phone] Nurse Practitioner 02/27/24 documented as of this encounter Additional Source Comments The information contained in this document represents components of the legal health record. It is not the complete legal health record.[facility]
--- OUTSIDE RECORDS SUMMARY | 2025-02-15 14:14 | XMS_ITS | Encounter Summary ---
Author Organization [facility] Address [address] [place] [address] Phone Care Team Providers Care Vehicle Body Sander Name Role Phone Artie Meehan MD Unavailable Rina Swenson MD Unavailable [phone] Laura Mock MD, DMD Primary Car e Provider Laura Mock MD, DMD Unavailable Laura Mock MD, DMD Unavailable Jakob Bob MD Unavailable [phone] Jose Cruz MD Unavailable Laura Mock MD, DMD Unavailable Pcp, Unknown Primary Care Provider UnavailLaura Ascencio MD, DMD Primary Car e Provider Pcp, Unknown Primary Care Provider UnavailNicole Arguello MD Primary Care Provide r Laura Mock MD, DMD Primary Car e Provider Encounter Details Date Type Department Care Team (Late st Contact Info) Description 09/17/2021 Anti-coag visit [facility] [address] [place] [address] Catherine Hernández, PharmD [email or web address] Social History Tobacco Use Types Packs/Day [...] Description 03/08/2025 9:30 AM EST Pre-Admission Testing [facility] [address] [address] Irineo Ruff MD [address] [place] [address] [email or web address] 03/15/2025 Procedure Pass [facility] Endoscopy Department [address] [place] [address] 03/15/2025 7:30 AM EST Hospital Encounter [facility] Endoscopy Department [address] [place] [address] Irineo Ruff MD [address] [place] [address] [email or web address] 03/15/2025 7:30 AM EST - 03/15/2025 8:15 AM EST Surgery [facility] Endoscopy Department [address] [place] [address] Irineo Ruff MD [address] [place] [address] [email or web address] [email or web address] Scheduled Procedures Name Priority Associated Diagnoses [...] documented as of this encounter Care Teams Vehicle Body Sander Relationship Specialty Start Date End Date Laura Mock MD, DMD [address] [address] [email or web address] PCP - General Internal Medicine 06/04/21 11/11/23 Pcp, Unknown PCP - General 11/12/23 11/16/23 Laura Mock MD, DMD [address] [address] [email or web address] PCP - General Internal Medicine 11/17/23 12/28/23 Pcp, Unknown PCP - General 02/28/24 03/04/24 [place] [address] [address] PCP - General 03/05/24 05/17/24 Laura Mock MD, DMD [address] [address] [email or web address] PCP - General Internal Medicine 05/18/24 Artie Meehan MD [address] [place] [address] [place] [address] Internal Medicine 10/26/17 04/23/22 Rina Swenson MD [address] [place] [address] Dr Dior Elisabeth [place] [address] Psychiatry 07/09/17 Laura Mock MD, DMD [address] [address] [email or web address] du Partners Attributed Provider 09/01/21 07/03/23 Laura Mock MD, DMD [address] [address] [email or web address] du Insurance Assigned Provider 05/31/23 03/01/24 Jakob Bob MD [address] [place] [address] [email or web address] Cardiology 08/22/23 Jose Cruz MD [address] [place] [address] Cardiology 08/22/23 Laura Mock MD, DMD [address] [address] [email or web address] Attributed Provider 09/01/21 07/03/23 [place] [facility] [phone]. Consulting Provider 08/22/23 [facility] Connect 12/24/23 03/11/24 Cyril Morales [facility] [place] [place] [address] Nurse Practitioner 02/27/24 documented as of this encounter Additional Source Comments The information contained in this document represents components of the legal health record. It is not the complete legal health record.[facility]
--- OUTSIDE RECORDS SUMMARY | 2025-02-15 14:14 | XMS_ITS | Encounter Summary ---
Author Organization [facility] Address [address] [employer] [facility] [address] [place] [address] Phone Care Team Providers Care Switchboard Operator Assistant Name Role Phone Artie Meehan MD Primary Care Provider [phone] Artie Meehan MD Unavailable [phone] Rina Swenson MD Unavailable Laura Mock MD, [...] Description 04/06/2019 Ancillary Orders Virtual Department [address] [place] [address] Artie Meehan MD [address] [place] [address] [place] [address] Menopausal state Social History Tobacco Use Types [...] 03/08/2025 9:30 AM EST Pre-Admission Testing [address] [address] Irineo Ruff MD [address] [place] [address] [email or web address] 03/15/2025 Procedure Pass [facility] Endoscopy Department [address] [place] [address] 03/15/2025 7:30 AM EST Hospital Encounter [facility] Endoscopy Department [address] [place] [address] Irineo Ruff MD [address] [place] [address] [email or web address] 03/15/2025 7:30 AM EST - 03/15/2025 8:15 AM EST Surgery [facility] Endoscopy Department [address] [place] [address] Irineo Ruff MD [address] [place] [address] [place] [address] [email or web address] COL[facility]COPY Scheduled Procedures Name Priority Associated [...] documented as of this encounter Care Teams Switchboard Operator Assistant Relationship Specialty Start Date End Date Artie Meehan MD [address] [place] [address] Dr [address] [place] [address] PCP - General Internal Medicine 10/26/17 06/03/21 Laura Mock MD, DMD [address] [address] [email or web address] PCP - General Internal Medicine 06/04/21 11/11/23 Pcp, Unknown PCP - General 11/12/23 11/16/23 Laura Mock MD, DMD [address] [address] [email or web address] PCP - General Internal Medicine 11/17/23 12/28/23 Pcp, Unknown PCP - General 02/28/24 03/04/24 Nicole Newell MD [address] [place] [address] PCP - General 03/05/24 05/17/24 Laura Mock MD, DMD [address] [address] [email or web address] PCP - General Internal Medicine 05/18/24 Artie Meehan MD [address] [place] [address] [place] [address] Internal Medicine 10/26/17 04/23/22 Rina Swenson MD [address] [place] [address] [place] [address] Psychiatry 07/09/17 Laura Mock MD, DMD [address] [address] [email or web address] du Partners Attributed Provider 09/01/21 07/03/23 Laura Mock MD, DMD [address] [address] [email or web address] du Insurance Assigned Provider 05/31/23 03/01/24 Jakob Bob MD [address] [place] [address] [place] [address] [email or web address] Cardiology 08/22/23 Jose Cruz MD [address] [place] [address], [address] [place] [address] Cardiology 08/22/23 Laura Mock MD, DMD [address] [address] [email or web address] Partners Attributed Provider 09/01/21 07/03/23 [facility] [phone]. Consulting Provider 08/22/23 [facility] Connect 12/24/23 03/11/24 Cyril Morales [address] [place] [phone] Nurse Practitioner 02/27/24 documented as of this encounter Additional Source Comments The information contained in this document represents components of the legal health record. It is not the complete legal health record.[facility]
--- OUTSIDE RECORDS SUMMARY | 2025-02-15 14:14 | XMS_ITS | Encounter Summary ---
Author Organization [facility] Address [address] [employer] [facility] [address] [place] [address] Phone Care Team Providers Care Supervisor Compounding And Finishing Name Role Phone Rina Swenson MD Unavailable Laura Mock MD, DMD Primary Car e Provider Laura Mock MD, DMD Unavailable Laura Mock MD, DMD Unavailable Jakob Bob MD Unavailable Jose Cruz MD Unavailable [phone] Laura Mock MD, DMD Unavailable Pcp, Unknown Primary Care Provider UnavailLaura Ascencio MD, DMD Primary Car e Provider Pcp, Unknown Primary Care Provider UnavailNicole Arguello MD Primary Care Provide r Laura Mock MD, DMD Primary Car e Provider Encounter Details Date Type Department Care Team (Late st Contact Info) Description 07/26/2022 Anti-coag visit [facility] [address] [place] [address] [phone] Melvin Stewart, [facility] [address] [place] [address] [email or web address] Social History Tobacco Use Types [...] Description 03/08/2025 9:30 AM EST [facility] [place] [address] [facility] 2nd [place] [address] Irineo Ruff MD [address] [place] [address] [place] [address] [email or web address] 03/15/2025 Procedure Pass [facility] Endoscopy Department [address] [place] [address] 03/15/2025 7:30 AM EST Hospital Encounter [facility] Endoscopy Department [address] [place] [address] Irineo Ruff MD [address] [place] [address] [place] [address] [email or web address] 03/15/2025 7:30 AM EST - 03/15/2025 8:15 AM EST Surgery [facility] Endoscopy Department [address] [place] [address] Irineo Ruff MD [address] [place] [address] [place] [address] [email or web address] COLONOSCOPY Scheduled Procedures Name Priority [...] as of this encounter Care Teams Supervisor Compounding And Finishing Relationship Specialty Start Date End Date Laura Mock MD, DMD [address] [address] [email or web address] du PCP - General Internal Medicine 06/04/21 11/11/23 Pcp, Unknown PCP - General 11/12/23 11/16/23 Laura Mock MD, DMD [address] [address] [email or web address] PCP - General Internal Medicine 11/17/23 12/28/23 Pcp, Unknown PCP - General 02/28/24 03/04/24 [place] [address] [address] PCP - General 03/05/24 05/17/24 Laura Mock MD, DMD [address] [address] [email or web address] du PCP - General Internal Medicine 05/18/24 Rina Swenson MD Psychiatry 07/09/17 Laura Mock MD, DMD [address] [address] [email or web address] du Partners Attributed Provider 09/01/21 07/03/23 Laura Mock MD, DMD [address] [address] [email or web address] du Insurance Assigned Provider 05/31/23 03/01/24 Jakob Bob MD [address] [place] [address] [email or web address] Cardiology 08/22/23 Jose Cruz MD [address] [place] [address] Cardiology 08/22/23 Laura Mock MD, DMD [address] [address] [email or web address] Partners Attributed Provider 09/01/21 07/03/23 [facility] [phone]. Consulting Provider 08/22/23 [facility] Connect 12/24/23 03/11/24 Cyril Morales [address] [place] [phone] Nurse Practitioner 02/27/24 documented as of this encounter Additional Source Comments The information contained in this document represents components of the legal health record. It is not the complete legal health record.[facility]
--- OUTSIDE RECORDS SUMMARY | 2025-02-15 14:14 | XMS_ITS | Encounter Summary ---
Author Organization [facility] Address [facility] [employer] [address] [address] Phone Care Team Providers Care Cancer Researcher Name Role Phone Rina Swenson MD Unavailable [...] 03/08/2025 9:30 AM EST Pre-Admission Testing [address] [address] Irineo Ruff MD [address] [place] [address] [email or web address] 03/15/2025 Procedure Pass [facility] Endoscopy Department [address] [place] [address] 03/15/2025 7:30 AM EST Hospital Encounter [facility] Endoscopy Department [address] [place] [address] Irineo Ruff MD [address] [place] [address] [email or web address] 03/15/2025 7:30 AM EST - 03/15/2025 8:15 AM EST Surgery [facility] Endoscopy Department [address] [place] [address] Irineo Ruff MD [address] [place] [address] [email or web address] [facility] COLONOSCOPY Scheduled Procedures [...] documented as of this encounter Care Teams Cancer Researcher Relationship Specialty Start Date End Date Laura Mock MD, DMD [address] [address] [email or web address] du PCP - General Internal Medicine 06/04/21 11/11/23 Pcp, Unknown PCP - General 11/12/23 11/16/23 Laura Mock MD, DMD [address] [address] [email or web address] du PCP - General Internal Medicine 11/17/23 12/28/23 Pcp, Unknown PCP - General 02/28/24 03/04/24 [place] [address] [address] PCP - General 03/05/24 05/17/24 Laura Mock MD, DMD [address] [address] [email or web address] du PCP - General Internal Medicine 05/18/24 Rina Swenson MD Psychiatry 07/09/17 Laura Mock MD, DMD [address] [address] [email or web address] Partners Attributed Provider 09/01/21 07/03/23 Laura Mock MD, DMD [address] [address] [email or web address] du Insurance Assigned Provider 05/31/23 03/01/24 Jakob Bob MD [address] [place] [address] [email or web address] Cardiology 08/22/23 Jose Cruz MD [address] [place] [address] Cardiology 08/22/23 Laura Mock MD, DMD [address] [address] [email or web address] du Partners Attributed Provider 09/01/21 07/03/23 [place] [facility] [phone]. Consulting Provider 08/22/23 [facility] Connect 12/24/23 03/11/24 Cyril Morales [address] [place] [phone] Nurse Practitioner 02/27/24 documented as of this encounter Additional Source Comments The information contained in this document represents components of the legal health record. It is not the complete legal health record.[facility]
--- OUTSIDE RECORDS SUMMARY | 2025-02-15 14:14 | XMS_ITS | Encounter Summary ---
Author Organization [facility] Address [address] [facility] [address] [place] [address] Phone Care Team Providers Care Mold Yard Worker Name Role Phone Artie Meehan MD [...] Anti-coag visit [facility] [address] [place] [address] Kenyatta Gamez, PharmD [email or web address] Social History Tobacco Use Types Packs/Day [...] 03/08/2025 9:30 AM EST Pre-Admission Testing [address] [address] Irineo Ruff MD [address] [place] [address] [email or web address] 03/15/2025 Procedure Pass [facility] Endoscopy Department [address] [place] [address] 03/15/2025 7:30 AM EST Hospital Encounter [facility] Endoscopy Department [address] [place] [address] Irineo Ruff MD [address] [place] [address] [email or web address] 03/15/2025 7:30 AM EST - 03/15/2025 8:15 AM EST Surgery [facility] Endoscopy Department [address] [place] [address] Irineo Ruff MD [address] [place] [address] [place] [address] [email or web address] COLONOSCOPY Scheduled Procedures [...] documented as of this encounter Care Teams Mold Yard Worker Relationship Specialty Start Date End Date Laura Mock MD, DMD [address] [address] [email or web address] PCP - General Internal Medicine 06/04/21 11/11/23 Pcp, Unknown PCP - General 11/12/23 11/16/23 Laura Mock MD, DMD [address] [address] [email or web address] PCP - General Internal Medicine 11/17/23 12/28/23 Pcp, Unknown PCP - General 02/28/24 03/04/24 [place] [address] [place] [address] PCP - General 03/05/24 05/17/24 Laura Mock MD, DMD [address] [address] [email or web address] du PCP - General Internal Medicine 05/18/24 Artie Meehan MD [address] [place] [address] Dr Dior [facility] [place] [address] Internal Medicine 10/26/17 04/23/22 Rina Swenson MD [address] [place] [address] [place] [address] Psychiatry 07/09/17 Laura Mock MD, DMD [address] [address] [email or web address] Partners Attributed Provider 09/01/21 07/03/23 Laura Mock MD, DMD [address] [address] [email or web address] du Insurance Assigned Provider 05/31/23 03/01/24 Jakob Bob MD [address] [place] [address] [place] [address] [email or web address] Cardiology 08/22/23 Jose Cruz MD [address] [place] [address] Cardiology 08/22/23 Laura Mock MD, DMD [address] [address] [email or web address] Partners Attributed Provider 09/01/21 07/03/23 [place] [facility] [phone]. Consulting Provider 08/22/23 [facility] Connect 10/30/24 1/16/25 Cyril Morales [address] [place] [address] Nurse Practitioner 02/27/24 documented as of this encounter Additional Source Comments The information contained in this document represents components of the legal health record. It is not the complete legal health record.[facility]
--- OUTSIDE RECORDS SUMMARY | 2025-02-15 14:14 | XMS_ITS | Encounter Summary ---
Author Organization [facility] Address [address] [facility] [address] [place] [address] Phone Care Team Providers Care Membership Coordinator Name Role Phone Rina Swenson MD [...] Contact Info) Description 12/10/2022 Anti-coag visit [facility] Clinic [address] [place] [address] [phone] Catherine Hernández, PharmD [email or web address] Social History Tobacco Use Types [...] [facility] [address] [address] Irineo Ruff MD [address] [place] [address] [email or web address] 03/15/2025 Procedure Pass [facility] Endoscopy Department [address] [place] [address] 03/15/2025 7:30 AM EST Hospital Encounter [facility] Endoscopy Department [address] [place] [address] Irineo Ruff MD [address] [place] [address] [email or web address] 03/15/2025 7:30 AM EST - 03/15/2025 8:15 AM EST Surgery [facility] Endoscopy Department [address] [place] [address] Irineo Ruff MD [address] [place] [address] [place] [address] [email or web address] [email or web address] Scheduled Procedures Name Priority [...] documented as of this encounter Care Teams Membership Coordinator Relationship Specialty Start Date End Date Laura Mock MD, DMD [address] [address] [email or web address] PCP - General Internal Medicine 06/04/21 11/11/23 Pcp, Unknown PCP - General 11/12/23 11/16/23 Laura Mock MD, DMD [address] [address] [email or web address] PCP - General Internal Medicine 11/17/23 12/28/23 Pcp, Unknown PCP - General 02/28/24 03/04/24 Nicole Newell MD [address] [place] [address] [phone] PCP - General 03/05/24 05/17/24 Laura Mock MD, DMD [address] [address] [email or web address] du PCP - General Internal Medicine 05/18/24 Rina Swenson MD Psychiatry 07/09/17 Laura Mock MD, DMD [address] [address] [email or web address] Partners Attributed Provider 09/01/21 07/03/23 Laura Mock MD, DMD [address] [address] [email or web address] du Insurance Assigned Provider 05/31/23 03/01/24 Jakob Bob MD [address] [place] [address] [email or web address] Cardiology 08/22/23 Jose Cruz MD [address] [place] [address] Cardiology 08/22/23 Laura Mock MD, DMD [address] [address] [email or web address] Attributed Provider 09/01/21 07/03/23 [facility] [phone]. Consulting Provider 08/22/23 [facility] Connect 12/24/23 03/11/24 Cyril Morales [address] [place] [address] Nurse Practitioner 02/27/24 documented as of this encounter Additional Source Comments The information contained in this document represents components of the legal health record. It is not the complete legal health record.[facility]
--- OUTSIDE RECORDS SUMMARY | 2025-02-15 14:14 | XMS_ITS | Encounter Summary ---
Author Organization [facility] Address [address] [facility] [address] [place] [address] Phone Care Team Providers Care Manager Of Financial Name Role Phone Rina Swenson MD Unavailable [phone] Laura Mock MD, DMD Primary Car e [...] st Contact Info) Description 08/08/2022 Anti-coag visit [facility] [address] [place] [address] [phone] Kenyatta Gamez, PharmD [email or web address] Social History Tobacco Use Types [...] 03/08/2025 9:30 AM EST Pre-Admission Testing [address] [place] [address] Irineo Ruff MD [address] [place] [address] [email or web address] 03/15/2025 Procedure Pass [facility] Endoscopy Department [address] [place] [address] 03/15/2025 7:30 AM EST Hospital Encounter [facility] Endoscopy Department [address] [place] [address] Irineo Ruff MD [address] [place] [address] [email or web address] 03/15/2025 7:30 AM EST - 03/15/2025 8:15 AM EST Surgery [facility] Endoscopy Department [address] [place] [address] Irineo Ruff MD [address] [place] [address], [place] [address] [email or web address] COLONOSCOPY [...] of this encounter Care Teams Manager Of Financial Relationship Specialty Start Date End Date Laura Mock MD, DMD [address] [address] [email or web address] PCP - General Internal Medicine 06/04/21 11/11/23 Pcp, Unknown PCP - General 11/12/23 11/16/23 Laura Mock MD, DMD [address] [address] [email or web address] du PCP - General Internal Medicine 11/17/23 12/28/23 Pcp, Unknown PCP - General 02/28/24 03/04/24 Nicole Newell MD [address] [place] [address] PCP - General 03/05/24 05/17/24 Laura Mock MD, DMD [address] [address] [email or web address] du PCP - General Internal Medicine 05/18/24 Rina Swenson MD Psychiatry 07/09/17 Laura Mock MD, DMD [address] [address] [email or web address] du Partners Attributed Provider 09/01/21 07/03/23 Laura Mock MD, DMD [address] [address] [email or web address] du Insurance Assigned Provider 05/31/23 03/01/24 Jakob Bob MD [address] [place] [address] [email or web address] Cardiology 08/22/23 Jose Cruz MD [address] [place] [address] Cardiology 08/22/23 Laura Mock MD, DMD [address] [address] [email or web address] du Partners Attributed Provider 09/01/21 07/03/23 [facility] [phone]. Consulting Provider 08/22/23 [facility] Connect 12/24/23 03/11/24 Cyril Morales [address] [place] [address] Nurse Practitioner 02/27/24 documented as of this encounter Additional Source Comments The information contained in this document represents components of the legal health record. It is not the complete legal health record.[facility]
--- OUTSIDE RECORDS SUMMARY | 2025-02-15 14:14 | XMS_ITS | Encounter Summary ---
Author Organization [facility] Address [address] [place] [address] Phone Care Team Providers Care Economics Analyst Name Role Phone Artie Meehan MD Unavailable Rina Swenson MD Unavailable [phone] Laura Mock MD, DMD Primary Car e Provider Laura Mock MD, DMD Unavailable Laura Mock MD, DMD Unavailable Jakob Bob MD Unavailable Jose Cruz MD Unavailable [phone] Laura Mock MD, DMD Unavailable Pcp, Unknown Primary Care Provider UnavailLaura Ascencio MD, DMD Primary Car e Provider Pcp, Unknown Primary Care Provider UnavailNicole Arguello MD Primary Care Provide r Laura Mock MD, DMD Primary Car e Provider Encounter Details Date Type Department Care Team (Late st Contact Info) Description 09/10/2021 Anti-coag visit [facility] Li, Mengyan, PharmD [address] [place] [address] [email or web address] Social History Tobacco Use Types Packs/Day [...] Description 03/08/2025 9:30 AM EST Pre-Admission Testing [address] [address] Irineo Ruff MD [address] [place] [address] [place] [address] [email or web address] 03/15/2025 Procedure Pass [facility] Endoscopy Department [address] [place] [address] 03/15/2025 7:30 AM EST Hospital Encounter [facility] Endoscopy Department [address] [place] [address] Irineo Ruff MD [address] [place] [address] [email or web address] 03/15/2025 7:30 AM EST - 03/15/2025 8:15 AM EST Surgery [facility] Endoscopy Department [address] [place] [address] Irineo Ruff MD [address] [place] [address] [email or web address] COLONOSCOPY Scheduled Procedures [...] documented as of this encounter Care Teams Economics Analyst Relationship Specialty Start Date End Date Laura Mock MD, DMD [address] [address] [email or web address] PCP - General Internal Medicine 06/04/21 11/11/23 Pcp, Unknown PCP - General 11/12/23 11/16/23 Laura Mock MD, DMD [address] [address] [email or web address] PCP - General Internal Medicine 11/17/23 12/28/23 Pcp, Unknown PCP - General 02/28/24 03/04/24 [place] [address] [address] PCP - General 03/05/24 05/17/24 Laura Mock MD, DMD [address] [address] [email or web address] du PCP - General Internal Medicine 05/18/24 Artie Meehan MD [address] [place] [address] [place] [address] Internal Medicine 10/26/17 04/23/22 Rina Swenson MD [address] [place] [address] [place] [address] Psychiatry 07/09/17 Laura Mock MD, DMD [address] [address] [email or web address] du Partners Attributed Provider 09/01/21 07/03/23 Laura Mock MD, DMD [address] [address] [email or web address] du Insurance Assigned Provider 05/31/23 03/01/24 Jakob Bob MD [address] [place] [address] [place] [address] [email or web address] Cardiology 08/22/23 Jose Cruz MD [address] [place] [address] Cardiology 08/22/23 Laura Mock MD, DMD [address] [address] [email or web address] du Partners Attributed Provider 09/01/21 07/03/23 [place] [facility] [phone]. Consulting Provider 08/22/23 [facility] Connect 12/24/23 03/11/24 Cyril Morales [address] [place] [address] Nurse Practitioner 02/27/24 documented as of this encounter Additional Source Comments The information contained in this document represents components of the legal health record. It is not the complete legal health record.[facility]
--- OUTSIDE RECORDS SUMMARY | 2025-02-15 14:15 | XMS_ITS | Encounter Summary ---
Author Organization [facility] Address [address] [place] [address] Phone Care Team Providers Care Master Cook Name Role Phone Artie Meehan MD Unavailable Rina Swenson MD Unavailable [phone] Laura Mock MD, DMD Primary Car e Provider Laura Mock MD, DMD Unavailable Laura Mock MD, DMD Unavailable Jakob Bob MD Unavailable [phone] Jose Cruz MD Unavailable Laura Mock MD, DMD Unavailable Pcp, Unknown Primary Care Provider UnavailLaura Ascencio MD, DMD Primary Car e Provider Pcp, Unknown Primary Care Provider UnavailNicole Arguello MD Primary Care Provide r Laura Mock MD, DMD Primary Car e Provider Encounter Details Date Type Department Care Team (Late st Contact Info) Description 08/07/2021 Anti-coag visit [facility] [address] [place] [address] Kenyatta Gamez, PharmD [email or web address] Social History Tobacco [...] Description 03/08/2025 9:30 AM EST Pre-Admission Testing [address] [address] Irineo Ruff MD [address] [place] [address] [email or web address] 03/15/2025 Procedure Pass [facility] Endoscopy Department [address] [place] [address] 03/15/2025 7:30 AM EST Hospital Encounter [facility] Endoscopy Department [address] [place] [address] Irineo Ruff MD [address] [place] [address] [email or web address]@[email or web address] 03/15/2025 7:30 AM EST - 03/15/2025 8:15 AM EST Surgery [facility] Endoscopy Department [address] [place] [address] Irineo Ruff MD [address] [place] [address] [place] [address] [email or web address] COLONOSCOPY Scheduled Procedures Name [...] documented as of this encounter Care Teams Master Cook Relationship Specialty Start Date End Date Laura Mock MD, DMD [address] [address] [email or web address] PCP - General Internal Medicine 06/04/21 11/11/23 Pcp, Unknown PCP - General 11/12/23 11/16/23 Laura Mock MD, DMD [address] [address] [email or web address] PCP - General Internal Medicine 11/17/23 12/28/23 Pcp, Unknown PCP - General 02/28/24 03/04/24 Nicoel Newell [place] [address] [place] [address] PCP - General 03/05/24 05/17/24 Laura Mock MD, DMD [address] [address] [email or web address] du PCP - General Internal Medicine 05/18/24 Artie Meehan MD [address] [place] [address] Dr Dior [facility] [address] Internal Medicine 10/26/17 04/23/22 Rina Swenson MD [address] [place] [address] [place] [address] Psychiatry 07/09/17 Laura Mock MD, DMD [address] [address] [email or web address] Partners Attributed Provider 09/01/21 07/03/23 Laura Mock MD, DMD [address] [address] [email or web address] du Insurance Assigned Provider 05/31/23 03/01/24 Jakob Bob MD [address] [place] [address] [place] [address] [email or web address] Cardiology 08/22/23 Jose Cruz MD [address] [place] [address] Cardiology 08/22/23 Laura Mock MD, DMD [address] [address] [email or web address] [employer] Attributed Provider 09/01/21 07/03/23 [place] [facility] [phone]. Consulting Provider 08/22/23 [facility] Connect 10/30/24 1/16/25 Cyril Morales [address] [place] [address] Nurse Practitioner 02/27/24 documented as of this encounter Additional Source Comments The information contained in this document represents components of the legal health record. It is not the complete legal health record.[facility]
--- OUTSIDE RECORDS SUMMARY | 2025-02-15 14:15 | XMS_ITS | Encounter Summary ---
Author Organization [facility] Address [facility] [employer] [address] [address] Phone Care Team Providers Care Comic Book Writer Name Role Phone Rina Swenson MD Unavailable Laura Mock MD, DMD Primary Car e Provider Laura Mock MD, DMD Unavailable Laura Mock MD, DMD Unavailable Jakob Bob MD Unavailable Jose Cruz MD Unavailable [phone] Laura Mock MD, DMD Unavailable Pcp, Unknown [...] 03/08/2025 9:30 AM EST Pre-Admission Testing [address] [address] Irineo Ruff MD [address] [place] [address] [email or web address] 03/15/[address] [facility] Endoscopy Department [address] [place] [address] 03/15/2025 7:30 AM EST Hospital Encounter [facility] Endoscopy Department [address] [place] [address] Irineo Ruff MD [address] [place] [address] WALI@[facility] 03/15/2025 7:30 AM EST - 03/15/2025 8:[address] [facility] Endoscopy Department [address] [place] [address] Irineo Ruff MD [address] [place] [address] [email or web address] COLONOSCOPY Scheduled Procedures Name Priority [...] documented as of this encounter Care Teams Comic Book Writer Relationship Specialty Start Date End Date Laura Mock MD, DMD [address] [address] [email or web address] du PCP - General Internal Medicine 06/04/21 11/11/23 Pcp, Unknown PCP - General 11/12/23 11/16/23 Laura Mock MD, DMD [address] [address] [email or web address] du PCP - General Internal Medicine 11/17/23 12/28/23 Pcp, Unknown PCP - General 02/28/24 03/04/24 [place] [address] [address] PCP - General 03/05/24 05/17/24 Laura Mock MD, DMD [address] [address] [email or web address] du PCP - General Internal Medicine 05/18/24 Rina Swenson MD Psychiatry 07/09/17 Laura Mock MD, DMD [address] [address] [email or web address]. du Partners Attributed Provider 09/01/21 07/03/23 Laura Mock MD, DMD [address] [address] [email or web address] du Insurance Assigned Provider 05/31/23 03/01/24 Jakob Bob MD [address] [place] [address] [email or web address] Cardiology 08/22/23 Jose Cruz MD [address] [place] [address] Cardiology 08/22/23 Laura Mock MD, DMD [address] [address] [email or web address] du Partners Attributed Provider 09/01/21 07/03/23 [place] [facility] [phone]. Consulting Provider 08/22/23 [facility] Connect 12/24/23 03/11/24 Cyril Morales [address] [place] [phone] Nurse Practitioner 02/27/24 documented as of this encounter Additional Source Comments The information contained in this document represents components of the legal health record. It is not the complete legal health record.[facility]
--- OUTSIDE RECORDS SUMMARY | 2025-02-15 14:15 | XMS_ITS | Encounter Summary ---
Author Organization [facility] Address [address] [employer] [facility] [address] [place] [address] Phone Care Team Providers Care Resident Associate Name Role Phone Rina Swenson MD Unavailable Laura Mock MD, DMD Unavailable Jakob Bob MD Unavailable [phone] Jose Cruz MD Unavailable Laura Mock MD, DMD Primary Car e Provider Pcp, Unknown Primary Care Provider Unavailmarco e Nicole Newell MD Primary Care Provide r Laura Mock MD, DMD Primary Car e Provider Encounter Details Date Type Department Care Team (Late st Contact Info) Description 12/04/2023 Procedure Pass [facility] Periop [address] [place] [address] Social History Tobacco Use Types Packs/Day Years [...] 03/08/2025 9:30 AM EST Pre-Admission Testing [address] [address] Irineo Ruff MD [address] [place] [address] [email or web address] 03/15/2025 Procedure Pass [facility] Endoscopy Department [address] [place] [address] 03/15/2025 7:30 AM EST Hospital Encounter [facility] Endoscopy Department [address] [place] [address] Irineo Ruff MD [address] [place] [address] [email or web address] 03/15/2025 7:30 AM EST - 03/15/2025 8:15 AM EST Surgery [facility] Endoscopy Department [address] [place] [address] Irineo Ruff MD [address] [place] [address], [place] [address] [email or web address] [email or web address] Scheduled Procedures Name Priority Associated Diagnoses Date/Ti me COLONOSCOPY Abnormal colonoscopy 03/15/2025 7:30 AM EST documented as of this encounter Visit Diagnoses Not on filedocumented in this encounter Additional Health Concerns Assessment Noted Time PHQ-9 Depression Total Score: 17 023 11:28 AM EST PHQ-2 Depression Total Score: 2 10/10/19 23 11:28 AM EDT documented as of this encounter Care Teams Resident Associate Relationship Specialty Start Date End Date Laura Mock MD, DMD [address] [address] [email or web address] PCP - General Internal Medicine 11/17/23 12/28/23 Pcp, Unknown PCP - General 02/28/24 03/04/24 [place] [address] [place] [address] PCP - General 03/05/24 05/17/24 Laura Mock MD, DMD [address] [address] [email or web address] PCP - General Internal Medicine 05/18/24 Rina Swenson MD Psychiatry 07/09/17 Laura Mock MD, DMD [address] [address] [email or web address] du Insurance Assigned Provider 05/31/23 03/01/24 Jakob Bob MD [address] [facility] [place] [address] [email or web address] Cardiology 08/22/23 Jose Cruz MD [address] [place] [address], [address] [place] [address] [email or web address] Cardiology 08/22/23 [facility] [phone]. Consulting Provider 08/22/23 [facility] Connect 12/24/23 03/11/24 Cyril Morales [address] [place] [address] Nurse Practitioner 02/27/24 documented as of this encounter Additional Source Comments The information contained in this document represents components of the legal health record. It is not the complete legal health record.[facility]
--- OUTSIDE RECORDS SUMMARY | 2025-02-15 14:15 | XMS_ITS | Encounter Summary ---
Author Organization [facility] Address [facility] [employer] [address] [address] Phone Care Team Providers Care Lead Fabricator Name Role Phone Rina Swenson MD Unavailable Laura Mock MD, DMD Primary Car e Provider Laura Mock MD, DMD Unavailable Laura Mock MD, DMD Unavailable Jakob Bob MD Unavailable [phone] Jose Cruz MD Unavailable Laura Mock MD, [...] 03/08/2025 9:30 AM EST Pre-Admission Testing [address] 2[address] [place] [address] Irineo Ruff MD [address] [place] [address] [email or web address] 03/15/2025 Procedure Pass [facility] Endoscopy Department [address] [place] [address] 03/15/2025 7:30 AM EST Hospital Encounter [facility] Endoscopy Department [address] [place] [address] Irineo Ruff MD [address] [place] [address] [email or web address] 03/15/2025 7:30 AM EST - 03/15/2025 8:15 AM EST Surgery [facility] Endoscopy Department [address] [place] [address] Irineo Ruff MD [address] [place] [address] [email or web address] [email or web address] Scheduled Procedures Name [...] as of this encounter Care Teams Lead Fabricator Relationship Specialty Start Date End Date Laura Mock MD, DMD [address] [address] [email or web address] du PCP - General Internal Medicine 06/04/21 11/11/23 Pcp, Unknown PCP - General 11/12/23 11/16/23 Laura Mock MD, DMD [address] [address] [email or web address] du PCP - General Internal Medicine 11/17/23 12/28/23 Pcp, Unknown PCP - General 02/28/24 03/04/24 Nicole Newell MD [address] [place] [address] PCP - General 03/05/24 05/17/24 Laura Mock MD, DMD [address] [address] [email or web address] du PCP - General Internal Medicine 05/18/24 Rina Swenson MD Psychiatry 07/09/17 Laura Mock MD, DMD [address] [address] [email or web address] du Partners Attributed Provider 09/01/21 07/03/23 Laura Mock MD, DMD 1 [facility] [address] [place] [address] [email or web address] du Insurance Assigned Provider 05/31/23 03/01/24 Jakob Bob MD [address] [place] [address] [address] [place] [address] [email or web address] Cardiology 08/22/23 Jose Cruz MD [address] [place] [address] 301 [place] [address] Cardiology 08/22/23 Laura Mock MD, DMD [address] [address] [email or web address] du Partners Attributed Provider 09/01/21 07/03/23 [place] [facility] [phone]. Consulting Provider 08/22/23 [facility] Connect 12/24/23 03/11/24 Cyril Morales [address] [place] [address] Nurse Practitioner 02/27/24 documented as of this encounter Additional Source Comments The information contained in this document represents components of the legal health record. It is not the complete legal health record.[facility]
--- OUTSIDE RECORDS SUMMARY | 2025-02-15 14:15 | XMS_ITS | Encounter Summary ---
Author Organization [facility] Address [address] [employer] [facility] [address] [place] [address] Phone Care Team Providers Care Front Office Director Name Role Phone Rina Swenson MD Unavailable Laura Mock MD, DMD Primary Car e Provider Laura Mock MD, DMD Unavailable Laura Mock MD, DMD Unavailable Jakob Bob MD Unavailable [phone] Jose Cruz MD Unavailable Laura Mock MD, DMD Unavailable Pcp, Unknown Primary Care Provider UnavailLaura Ascencio MD, DMD Primary Car e Provider Pcp, Unknown Primary Care Provider UnavailNicole Arguello MD Primary Care Provide r Laura Mock MD, DMD Primary Car e Provider Encounter Details Date Type Department Care Team (Late st Contact Info) Description 04/25/2022 Anti-coag visit [facility] [address] [place] [phone] Kenyatta Gamez, PharmD [email or web address] Social History Tobacco Use Types Packs/Day [...] 03/08/2025 9:30 AM EST Pre-Admission Testing [address] 2nd [place] [address] Irineo Ruff MD [address] [place] [address] [email or web address] 03/15/2025 Procedure Pass [facility] Endoscopy Department [address] [place] [address] 03/15/2025 7:30 AM EST Hospital Encounter [facility] Endoscopy Department [address] [place] [address] Irineo Ruff MD [address] [place] [address] [email or web address] 03/15/2025 7:30 AM EST - 03/15/2025 8:15 AM EST Surgery [facility] Endoscopy Department [address] [place] [address] Irineo Ruff MD [address] [place] [address] [place] [address] [email or web address] [email or web address] Scheduled Procedures Name Priority Associated [...] documented as of this encounter Care Teams Front Office Director Relationship Specialty Start Date End Date Laura oMck MD, DMD [address] [address] [email or web address] du PCP - General Internal Medicine 06/04/21 11/11/23 Pcp, Unknown PCP - General 11/12/23 11/16/23 Laura Mock MD, DMD [address] [address] [email or web address] du PCP - General Internal Medicine 11/17/23 12/28/23 Pcp, Unknown PCP - General 02/28/24 03/04/24 Nicole Newell MD [address] [place] [address] PCP - General 03/05/24 05/17/24 Laura Mock MD, DMD [address] [address] [email or web address] du PCP - General Internal Medicine 05/18/24 Rina Swenson MD Psychiatry 07/09/17 Laura Mock MD, DMD [address] [address] [email or web address] Partners Attributed Provider 09/01/21 07/03/23 Laura Mock MD, DMD [address] [address] [email or web address] du Insurance Assigned Provider 05/31/23 03/01/24 Jakob Bob MD [address] [place] [address] [place] [address] [email or web address] Cardiology 08/22/23 Jose Cruz MD [address] [place] [address] Cardiology 08/22/23 Laura Mock MD, DMD [address] [address] [email or web address] du Partners Attributed Provider 09/01/21 07/03/23 [facility] [phone]. Consulting Provider 08/22/23 [facility] Connect 12/24/23 03/11/24 Cyril Morales [facility] [place] [address] Nurse Practitioner 02/27/24 documented as of this encounter Additional Source Comments The information contained in this document represents components of the legal health record. It is not the complete legal health record.[facility]
--- OUTSIDE RECORDS SUMMARY | 2025-02-15 14:15 | XMS_ITS | Encounter Summary ---
Author Organization [facility] Address [facility] [address] [address] Phone Care Team Providers Care Software Applications Designer Name Role Phone Rina Swenson MD [...] 03/08/2025 9:30 AM EST Pre-Admission Testing [address] [place] [address] Irineo Ruff MD [address] [place] [address] [email or web address] 03/15/2025 Procedure Pass [facility] Endoscopy Department [address] [place] [address] 03/15/2025 7:30 AM EST Hospital Encounter [facility] Endoscopy Department [address] [place] [address] Irineo Ruff MD [address] [place] [address] [email or web address] 03/15/2025 7:30 AM EST - 03/15/2025 8:15 AM EST Surgery [facility] Endoscopy Department [address] [place] [address] Irineo Ruff MD [address] [place] [address] [email or web address] [email or web address] Scheduled Procedures Name [...] as of this encounter Care Teams Software Applications Designer Relationship Specialty Start Date End Date Laura Mock MD, DMD [address] [address] [email or web address] du PCP - General Internal Medicine 06/04/21 11/11/23 Pcp, Unknown PCP - General 11/12/23 11/16/23 Laura Mock MD, DMD [address] [address] [email or web address] du PCP - General Internal Medicine 11/17/23 12/28/23 Pcp, Unknown PCP - General 02/28/24 03/04/24 Nicole Newell MD [address] [place] [address] PCP - General 03/05/24 05/17/24 Laura Mock MD, DMD [address] [address] [email or web address] du PCP - General Internal Medicine 05/18/24 Rina Swenson MD Psychiatry 07/09/17 Laura Mock MD, DMD [address] [address] [email or web address] Partners Attributed Provider 09/01/21 07/03/23 Laura Mock MD, DMD 1 [facility] [address] [place] [address] [email or web address] du Insurance Assigned Provider 05/31/23 03/01/24 Jakob Bob MD [address] [place] [address] [address] [place] [address] [email or web address] Cardiology 08/22/23 Jose Cruz MD [address] [place] [address] 301 [place] [address] Cardiology 08/22/23 Laura Mock MD, DMD [address] [address] [email or web address] du Partners Attributed Provider 09/01/21 07/03/23 [facility] [phone]. Consulting Provider 08/22/23 [facility] Connect 12/24/23 03/11/24 Cyril Morales [address] [place] [address] Nurse Practitioner 02/27/24 documented as of this encounter Additional Source Comments The information contained in this document represents components of the legal health record. It is not the complete legal health record.[facility]
--- OUTSIDE RECORDS SUMMARY | 2025-02-15 14:15 | XMS_ITS | Patient Health Record ---
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
--- OUTSIDE RECORDS SUMMARY | 2025-02-15 14:15 | XMS_ITS | Encounter Summary ---
Author Organization [facility] Address [address] [facility] [address] [place] [address] Phone Care Team Providers Care Waiter/Waitress Tourist Class Name Role Phone Artie Meehan MD Primary Care Provider [phone] Artie Meehan MD Unavailable Rina Swenson MD Unavailable Laura Mock MD, DMD Primary Car e Provider Laura Mock MD, DMD Unavailable Laura Mock MD, DMD Unavailable Jakob Bob MD Unavailable Jose Cruz MD Unavailable [phone] Laura Mock MD, DMD Unavailable Pcp, Unknown Primary Care Provider UnavailLaura Ascencio MD, DMD Primary Car e Provider Pcp, Unknown Primary Care Provider UnavailNicole Arguello MD Primary Care Provide r Laura Mock MD, DMD Primary Car e Provider Encounter Details Date Type Department Care Team (Late st Contact Info) Description 05/03/2021 Procedure Pass [facility] [address] [place] [address] Social History Tobacco Use Types Packs/Day Years [...] Health And Wellness st Contact Info) Description 03/08/2025 9:30 AM EST Pre-Admission Testing [facility] [address] [facility] 2nd [place] [address] Irineo Ruff MD [address] [place] [address] [email or web address] 03/15/2025 Procedure Pass [facility] Endoscopy Department [address] [place] [address] 03/15/2025 7:30 AM EST Hospital Encounter [facility] Endoscopy Department [address] [place] [address] Irineo Ruff MD [address] [place] [address] [email or web address] 03/15/2025 7:30 AM EST - 03/15/2025 8:15 AM EST Surgery [facility] Endoscopy Department [address] [place] [address] Irineo Ruff MD [address] [place] [address] [email or web address] [email or web address] Scheduled Procedures Name Priority [...] documented as of this encounter Care Teams Waiter/Waitress Tourist Class Relationship Specialty Start Date End Date Artie Meehan MD [address] [place] [address] Dr [address] [place] [address] PCP - General Internal Medicine 10/26/17 06/03/21 Laura Mock MD, DMD [address] [address] [email or web address] PCP - General Internal Medicine 06/04/21 11/11/23 Pcp, Unknown PCP - General 11/12/23 11/16/23 Laura Mock MD, DMD [address] [address] [email or web address] du PCP - General Internal Medicine 11/17/23 12/28/23 Pcp, Unknown PCP - General 02/28/24 03/04/24 [place] [address] [address] PCP - General 03/05/24 05/17/24 Laura Mock MD, DMD [address] [address] [email or web address] du PCP - General Internal Medicine 05/18/24 Artie Meehan MD [address] [place] [address] Dr Nichols [facility] [address] Internal Medicine 10/26/17 04/23/22 Rina Swenson MD [address] [place] [address] [place] [address] Psychiatry 07/09/17 Laura Mock MD, DMD 1 [facility] [address] [place] [address] [email or web address] Partners Attributed Provider 09/01/21 07/03/23 Laura Mock MD, DMD [address] [address] [email or web address] Insurance Assigned Provider 05/31/23 03/01/24 Jakob Bob MD [address] [place] [address] [place] [address] [email or web address] Cardiology 08/22/23 Jose Cruz MD [address] [place] [address], [facility] [address] [place] [address] Cardiology 08/22/23 Laura Mock MD, DMD 1 [facility] [address] [place] [address] [email or web address] Partners Attributed Provider 09/01/21 07/03/23 [facility] [phone]. Consulting Provider 08/22/23 [facility] Connect 12/24/23 03/11/24 Cyril Morales [address] [place] [address] Nurse Practitioner 02/27/24 documented as of this encounter Additional Source Comments The information contained in this document represents components of the legal health record. It is not the complete legal health record.[facility]
--- OUTSIDE RECORDS SUMMARY | 2025-02-15 14:15 | XMS_ITS | Encounter Summary ---
Author Organization [facility] Address [address] [employer] [facility] [address] [place] [address] Phone Care Team Providers Care Binder Folder Operator Name Role Phone Rina Swenson MD Unavailable Laura Mock MD, DMD Primary Car e Provider Laura Mock MD, DMD Unavailable Laura Mock MD, DMD Unavailable Jakob Bob MD Unavailable [phone] Jose Cruz MD Unavailable [phone] Laura Mock MD, DMD Unavailable Pcp, Unknown Primary Care Provider UnavailLaura Ascencio MD, DMD Primary Car e Provider Pcp, Unknown Primary Care Provider UnavailNicole Arguello MD Primary Care Provide r Laura Mock MD, DMD Primary Car e Provider Encounter Details Date Type Department Care Team (Late st Contact Info) Description 05/10/2022 Anti-coag visit [facility] [address] [place] [phone] Melvin Stewart, [facility] [address] [place] [address] [email or web address] Social History Tobacco Use Types Packs/Day [...] Description 03/08/2025 9:30 AM EST Pre-Admission Testing [address] [address] Irineo Ruff MD [address] [place] [address] [email or web address] 03/15/2025 Procedure Pass [facility] Endoscopy Department [address] [place] [address] 03/15/2025 7:30 AM EST Hospital Encounter [facility] Endoscopy Department [address] [place] [address] Irineo Ruff MD [address] [place] [address] [email or web address] 03/15/2025 7:30 AM EST - 03/15/2025 8:15 AM EST Surgery [facility] Endoscopy Department [address] [place] [address] Irineo Ruff MD [address] [place] [address] [email or web address] COLONOSCOPY Scheduled Procedures Name Priority [...] documented as of this encounter Care Teams Binder Folder Operator Relationship Specialty Start Date End Date Laura Mock MD, DMD [address] [address] [email or web address] du PCP - General Internal Medicine 06/04/21 11/11/23 Pcp, Unknown PCP - General 11/12/23 11/16/23 Laura Mock MD, DMD [address] [address] [email or web address] PCP - General Internal Medicine 11/17/23 12/28/23 Pcp, Unknown PCP - General 02/28/24 03/04/24 Nicole Newell [place] [address] [place] [address] PCP - General 03/05/24 05/17/24 Laura Mock MD, DMD [address] [address] [email or web address] PCP - General Internal Medicine 05/18/24 Rina Swenson MD Psychiatry 07/09/17 Laura Mock MD, DMD [address] [address] [email or web address] Partners Attributed Provider 09/01/21 07/03/23 Laura Mock MD, DMD [address] [address] [email or web address] du Insurance Assigned Provider 05/31/23 03/01/24 Jakob Bob MD [address] [place] [address] [email or web address] Cardiology 08/22/23 Jose Cruz MD [address] [place] [address] [email or web address] Cardiology 08/22/23 Laura Mock MD, DMD [address] [address] [email or web address] Partners Attributed Provider 09/01/21 07/03/23 [place] [facility] [phone]. Consulting Provider 08/22/23 [facility] Connect 12/24/23 03/11/24 Cyril Morales [address] [place] [address] Nurse Practitioner 02/27/24 documented as of this encounter Additional Source Comments The information contained in this document represents components of the legal health record. It is not the complete legal health record.[facility]
--- OUTSIDE RECORDS SUMMARY | 2025-02-15 14:15 | XMS_ITS | Encounter Summary ---
Author Organization [facility] Address [address] [employer] [facility] [address] [place] [address] Phone Care Team Providers Care Communications Associate Name Role Phone Rina Swenson MD Unavailable Laura Mock MD, DMD Primary Car e Provider Laura Mock MD, DMD Unavailable Laura Mock MD, DMD Unavailable Jakob Bob MD Unavailable [phone] Jose Cruz MD Unavailable [phone] Laura Mock MD, DMD Unavailable Pcp, Unknown Primary Care Provider UnavailLaura Ascencio MD, DMD Primary Car e Provider Pcp, Unknown Primary Care Provider UnavailNicole Arguello MD Primary Care Provide r Laura Mock MD, DMD Primary Car e Provider Encounter Details Date Type Department Care Team (Late st Contact Info) Description 05/27/2023 Procedure Pass [facility] Endoscopy Department [address] [place] [address] Social History Tobacco Use Types Packs/Day Years [...] 03/08/2025 9:30 AM EST Pre-Admission Testing [address] [address] Irineo Ruff MD [address] [place] [address] [email or web address] 03/15/2025 Procedure Pass [facility] Endoscopy Department [address] [place] [address] 03/15/2025 7:30 AM EST Hospital Encounter [facility] Endoscopy Department [address] [place] [address] Irineo Ruff MD [address] [place] [address] [email or web address] 03/15/2025 7:30 AM EST - 03/15/2025 8:15 AM EST Surgery [facility] Endoscopy Department [address] [place] [address] Irineo Ruff MD [address] [place] [address] [email or web address] [email or web address] COLONOSCOPY Scheduled Procedures Name Priority Associated Diagnoses [...] documented as of this encounter Care Teams Communications Associate Relationship Specialty Start Date End Date Laura Mock MD, DMD [address] [address] [email or web address] PCP - General Internal Medicine 06/04/21 11/11/23 Pcp, Unknown PCP - General 11/12/23 11/16/23 Laura Mock MD, DMD [address] [address] [email or web address] PCP - General Internal Medicine 11/17/23 12/28/23 Pcp, Unknown PCP - General 02/28/24 03/04/24 Nicole Newell MD [address] [place] [address] PCP - General 03/05/24 05/17/24 Laura Mock MD, DMD [address] [address] [email or web address] du PCP - General Internal Medicine 05/18/24 Rina Swenson MD Psychiatry 07/09/17 Laura Mock MD, DMD [address] [address] [email or web address] Partners Attributed Provider 09/01/21 07/03/23 Laura Mock MD, DMD [address] [address] [email or web address] du Insurance Assigned Provider 05/31/23 03/01/24 Jakob Bob MD [address] [place] [address] [email or web address] Cardiology 08/22/23 Jose Cruz MD [address] [place] [address] [email or web address] Cardiology 08/22/23 Laura Mock MD, DMD [address] [address] [email or web address] du Partners Attributed Provider 09/01/21 07/03/23 [place] [facility] [phone]. Consulting Provider 08/22/23 [facility] Connect 12/24/23 03/11/24 Cyril Morales [address] [place] [phone] Nurse Practitioner 02/27/24 documented as of this encounter Additional Source Comments The information contained in this document represents components of the legal health record. It is not the complete legal health record.[facility]
--- OUTSIDE RECORDS SUMMARY | 2025-02-15 14:15 | XMS_ITS | Encounter Summary ---
Author Organization [facility] Address [facility] [facility] [address] [place] [address] Phone Care Team Providers Care Litigation Assistant Name Role Phone Artie Meehan MD [...] st Contact Info) Description 09/17/2021 Procedure Pass [facility] [address] [place] [address] Social History Tobacco Use Types Packs/Day Years [...] Description 03/08/2025 9:30 AM EST Pre-Admission Testing [address] [address] Irineo Ruff MD [address] [place] [address] [email or web address] 03/15/2025 Procedure Pass [facility] Endoscopy Department [address] [place] [address] 03/15/2025 7:30 AM EST Hospital Encounter [facility] Endoscopy Department [address] [place] [address] Irineo Ruff MD [address] [place] [address] [email or web address] 03/15/2025 7:30 AM EST - 03/15/2025 8:15 AM EST Surgery [facility] Endoscopy Department [address] [place] [address] Irineo Ruff MD [address] [place] [address] [place] [address] [email or web address] COLONOSCOPY Scheduled Procedures [...] documented as of this encounter Care Teams Litigation Assistant Relationship Specialty Start Date End Date Laura Mock MD, DMD [address] [address] [email or web address] du PCP - General Internal Medicine 06/04/21 11/11/23 Pcp, Unknown PCP - General 11/12/23 11/16/23 Laura Mock MD, DMD [address] [address] [email or web address] du PCP - General Internal Medicine 11/17/23 12/28/23 Pcp, Unknown PCP - General 02/28/24 03/04/24 [place] [address] [address] PCP - General 03/05/24 05/17/24 Laura Mock MD, DMD [address] [address] [email or web address] du PCP - General Internal Medicine 05/18/24 Artie Meehan MD [address] [place] [address] Dr Dior [facility] [place] [address] Internal Medicine 10/26/17 04/23/22 Rina Swenson MD [address] [place] [address] [place] [address] Psychiatry 07/09/17 Laura Mock MD, DMD [address] [address] [email or web address] du Partners Attributed Provider 09/01/21 07/03/23 Laura Mock MD, DMD [address] [address] [email or web address] du Insurance Assigned Provider 05/31/23 03/01/24 Jakob Bob MD [address] [place] [address] [email or web address] Cardiology 08/22/23 Jose Cruz MD [address] [place] [address] Cardiology 08/22/23 Laura Mock MD, DMD [address] [address] [email or web address] Partners Attributed Provider 09/01/21 07/03/23 [facility] [phone]. Consulting Provider 08/22/23 [facility] Connect 12/24/23 03/11/24 Cyril Morales [address] [place] [address] Nurse Practitioner 02/27/24 documented as of this encounter Additional Source Comments The information contained in this document represents components of the legal health record. It is not the complete legal health record.[facility]
--- OUTSIDE RECORDS SUMMARY | 2025-02-15 14:15 | XMS_ITS | Encounter Summary ---
Author Organization [facility] Address [facility] [address] [address] Phone Care Team Providers Care Editor Index Name Role Phone Rina Swenson MD Unavailable [...] 03/08/2025 9:30 AM EST Pre-Admission Testing [address] [address] Irineo Ruff MD [address] [place] [address] [email or web address] 03/15/2025 Procedure Pass [facility] Endoscopy Department [address] [place] [address] 03/15/2025 7:30 AM EST Hospital Encounter [facility] Endoscopy Department [address] [place] [address] Irineo Ruff MD [address] [place] [address] [email or web address]@[email or web address] 03/15/2025 7:30 AM EST - 03/15/2025 8:15 AM EST Surgery [facility] Endoscopy Department [address] [place] [address] Irineo Ruff MD [address] [place] [address] [email or web address] [facility] COLONOSCOPY Scheduled Procedures Name Priority Associated [...] documented as of this encounter Care Teams Editor Index Relationship Specialty Start Date End Date Laura Mock MD, DMD [address] [address] [email or web address] du PCP - General Internal Medicine 06/04/21 11/11/23 Pcp, Unknown PCP - General 11/12/23 11/16/23 Laura Mock MD, DMD [address] [address] [email or web address] du PCP - General Internal Medicine 11/17/23 12/28/23 Pcp, Unknown PCP - General 02/28/24 03/04/24 [place] [address] [address] PCP - General 03/05/24 05/17/24 Laura Mock MD, DMD [address] [address] [email or web address] du PCP - General Internal Medicine 05/18/24 Rina Swenson MD Psychiatry 07/09/17 Laura Mock MD, DMD [address] [address] [email or web address] Partners Attributed Provider 09/01/21 07/03/23 Laura Mock MD, DMD [address] [address] [email or web address] du Insurance Assigned Provider 05/31/23 03/01/24 Jakob Bob MD [address] [place] [address] [email or web address] Cardiology 08/22/23 Jose Cruz MD [address] [place] [address] Cardiology 08/22/23 Laura Mock MD, DMD [address] [address] [email or web address] du Partners Attributed Provider 09/01/21 07/03/23 [place] [facility] [phone]. Consulting Provider 08/22/23 [facility] Connect 12/24/23 03/11/24 Cyril Morales [address] [place] [phone] Nurse Practitioner 02/27/24 documented as of this encounter Additional Source Comments The information contained in this document represents components of the legal health record. It is not the complete legal health record.[facility]
--- OUTSIDE RECORDS SUMMARY | 2025-02-15 14:15 | XMS_ITS | Encounter Summary ---
Author Organization [facility] Address 399 [employer] [facility] [address] [place] [address] Phone Care Team Providers Care Terrazzo Laborer Name Role Phone Rina Swenson MD Unavailable [phone] Laura Mock MD, DMD Primary Car e [...] st Contact Info) Description 10/06/2022 Anti-coag visit [facility] [address] [place] [address] Abbie Prieto, PharmD [address] [address] [email or web address] Social History Tobacco Use Types [...] EST Pre-Admission Testing [facility] 2nd [place] [address] Irineo Ruff MD [address] [place] [address] [place] [address] [email or web address] 03/15/2025 Procedure Pass [facility] Endoscopy Department [address] [place] [address] 03/15/2025 7:30 AM EST Hospital Encounter [facility] Endoscopy Department [address] [place] [address] Irineo Ruff MD [address] [place] [address] [place] [address] [email or web address] 03/15/2025 7:30 AM EST - 03/15/2025 8:15 AM EST Surgery [facility] Endoscopy Department [address] [place] [address] Irineo Ruff MD [address] [place] [address] [place] [address] [email or web address] COLONOSCOPY Scheduled Procedures [...] Date Laura Mock MD, DMD [address] [address] [email or web address] PCP - General Internal Medicine 06/04/21 11/11/23 Pcp, Unknown PCP - General 11/12/23 11/16/23 Laura Mock MD, DMD [address] [address] [email or web address] du PCP - General Internal Medicine 11/17/23 12/28/23 Pcp, Unknown PCP - General 02/28/24 03/04/24 [place] [address] [place] [id number] PCP - General 03/05/24 05/17/24 Laura Mock MD, DMD 1 [facility] [address] [place] [address] [email or web address] du PCP - General Internal Medicine 05/18/24 Rina Swenson MD Psychiatry 07/09/17 Laura Mock MD, DMD [address] [address] [email or web address] du Partners Attributed Provider 09/01/21 07/03/23 Laura Mock MD, DMD [address] [address] [email or web address] du Insurance Assigned Provider 05/31/23 03/01/24 Jakob Bob MD [address] [place] [address] [email or web address] Cardiology 08/22/23 Jose Cruz MD [address] [place] [address] Cardiology 08/22/23 Laura Mock MD, DMD [address] [address] [email or web address] Partners Attributed Provider 09/01/21 07/03/23 [place] [facility] [place] [phone]. Consulting Provider 08/22/23 [facility] Connect 12/24/23 03/11/24 Cyril Morales [facility] [place] [address] Nurse Practitioner 02/27/24 documented as of this encounter Additional Source Comments The information contained in this document represents components of the legal health record. It is not the complete legal health record.[facility]
--- OUTSIDE RECORDS SUMMARY | 2025-02-15 14:15 | XMS_ITS | Encounter Summary ---
Author Organization [facility] Address 399 [employer] [facility] [address] [place] [address] Phone Care Team Providers Care Sales Operations Coordinator Name Role Phone Rina Swenson MD Unavailable [phone] Laura Mock MD, DMD Primary Car e [...] st Contact Info) Description 10/26/2022 Anti-coag visit [facility] [address] [place] [address] [id number] Melvin Stewart, [facility] [address] [place] [address] [email or web address] Social History Tobacco Use Types Packs/Day [...] Description 03/08/2025 9:30 AM EST [facility] [place] [address] [facility] 2nd [place] [address] Irineo Ruff MD [address] [place] [address] [place] [address] [email or web address] 03/15/2025 Procedure Pass [facility] Endoscopy Department [address] [place] [address] 03/15/2025 7:30 AM EST Hospital Encounter [facility] Endoscopy Department [address] [place] [address] Irineo Ruff MD [address] [place] [address] [place] [address] [email or web address] 03/15/2025 7:30 AM EST - 03/15/2025 8:15 AM EST Surgery [facility] Endoscopy Department [address] [place] [address] Irineo Ruff MD [address] [place] [address] [place] [address] [email or web address] COLONOSCOPY Scheduled Procedures Name Priority Associated [...] as of this encounter Care Teams Sales Operations Coordinator Relationship Specialty Start Date End Date Laura Mock MD, DMD [address] [address] [email or web address].e du PCP - General Internal Medicine 06/04/21 11/11/23 Pcp, Unknown PCP - General 11/12/23 11/16/23 Laura Mock MD, DMD 1 [facility] [address] [place] [address] [email or web address]. du PCP - General Internal Medicine 11/17/23 12/28/23 Pcp, Unknown PCP - General 02/28/24 03/04/24 Nicole Newell MD [address] [place] [address] PCP - General 03/05/24 05/17/24 Laura Mock MD, DMD [address] [address] [email or web address].e du PCP - General Internal Medicine 05/18/24 Rina Swenson MD Psychiatry 07/09/17 Laura Mock MD, DMD [address] [place] [address] [email or web address]e du Partners Attributed Provider 09/01/21 07/03/23 Laura Mock MD, DMD [address] [address] [email or web address].e du Insurance Assigned Provider 05/31/23 03/01/24 Jakob Bob MD [address] [place] [address] [email or web address] Cardiology 08/22/23 Jose Cruz MD [address] [place] [address] Cardiology 08/22/23 Laura Mock MD, DMD [address] [place] [address] [email or web address]. du Partners Attributed Provider 09/01/21 07/03/23 [facility] [phone]. Consulting Provider 08/22/23 [facility] Connect 12/24/23 03/11/24 Cyril Morales [address] [place] [phone] Nurse Practitioner 02/27/24 documented as of this encounter Additional Source Comments The information contained in this document represents components of the legal health record. It is not the complete legal health record.[facility]
--- OUTSIDE RECORDS SUMMARY | 2025-02-15 14:15 | XMS_ITS | Encounter Summary ---
Author Organization [facility] Address [facility] [address] [address] Phone Care Team Providers Care Contact Center Manager Name Role Phone Artie Meehan MD Unavailable Rina Swenson MD Unavailable Laura Mock MD, DMD Primary Car e Provider Laura Mock MD, DMD Unavailable Laura Mock MD, DMD Unavailable Jakob Bob MD Unavailable [phone] Jose Cruz MD Unavailable [phone] Laura Mock MD, DMD Unavailable Pcp, Unknown [...] 03/08/2025 9:30 AM EST Pre-Admission Testing [address] 2nd [place] [address] Irineo Ruff MD [address] [place] [address] [email or web address] 03/15/2025 Procedure Pass [facility] Endoscopy Department [address] [place] [address] 03/15/2025 7:30 AM EST Hospital Encounter [facility] Endoscopy Department [address] [place] [address] Irineo Ruff MD [address] [place] [address] [email or web address] 03/15/2025 7:30 AM EST - 03/15/2025 8:15 AM EST Surgery [facility] Endoscopy Department [address] [place] [address] Irineo Ruff MD [address] [place] [address] [email or web address]@[facility] COLONOSCOPY Scheduled Procedures Name [...] documented as of this encounter Care Teams Contact Center Manager Relationship Specialty Start Date End Date Laura Mock MD, DMD [address] [address] [email or web address] du PCP - General Internal Medicine 06/04/21 11/11/23 Pcp, Unknown PCP - General 11/12/23 11/16/23 Laura Mock MD, DMD [address] [address] [email or web address] PCP - General Internal Medicine 11/17/23 12/28/23 Pcp, Unknown PCP - General 02/28/24 03/04/24 [place] [address] [address] PCP - General 03/05/24 05/17/24 Laura Mock MD, DMD [address] [address] [email or web address] du PCP - General Internal Medicine 05/18/24 Artie Meehan MD [address] [place] [address] [place] [address] Internal Medicine 10/26/17 04/23/22 Rina Swenson MD [address] [place] [address] [place] [address] Psychiatry 07/09/17 Laura Mock MD, DMD 1 [facility] [address] [place] [address] [email or web address]. du Partners Attributed Provider 09/01/21 07/03/23 Laura Mock MD, DMD [address] [address] [email or web address] du Insurance Assigned Provider 05/31/23 03/01/24 Jakob Bob MD [address] [place] [address] [email or web address] Cardiology 08/22/23 Jose Cruz MD [address] [place] [address] Cardiology 08/22/23 Laura Mock MD, DMD [address] [address] [email or web address] du Partners Attributed Provider 09/01/21 07/03/23 [place] [facility] [phone]. Consulting Provider 08/22/23 [facility] Connect 12/24/23 03/11/24 Cyril Morales [address] [place] [phone] Nurse Practitioner 02/27/24 documented as of this encounter Additional Source Comments The information contained in this document represents components of the legal health record. It is not the complete legal health record.[facility]
--- OUTSIDE RECORDS SUMMARY | 2025-02-15 14:15 | XMS_ITS | Encounter Summary ---
Author Organization [facility] Address 399 [employer] [facility] [address] [place] [address] Phone Care Team Providers Care Composite Science Teacher Name Role Phone Rina Swenson MD Unavailable [phone] Laura Mock MD, DMD Primary Car e Provider Laura Mock MD, DMD Unavailable Laura Mock MD, DMD Unavailable Jakob Bob MD Unavailable [phone] Jose Cruz MD Unavailable Laura Mock MD, DMD Unavailable Pcp, Unknown Primary Care Provider UnavailLaura Ascencio MD, DMD Primary Car e Provider Pcp, Unknown Primary Care Provider UnavailNicole Arguello MD Primary Care Provide r Laura Mock MD, DMD Primary Car e Provider Encounter Details Date Type Department Care Team (Late st Contact Info) Description 10/02/2022 Procedure Pass [facility] [address] [place] [address] Social History Tobacco Use Types Packs/Day Years [...] 03/08/2025 9:30 AM EST Pre-Admission Testing [address] 2nd [place] [address] Irineo Ruff MD [address] [place] [address] [email or web address] 03/15/2025 Procedure Pass [facility] Endoscopy Department [address] [place] [address] 03/15/2025 7:30 AM EST Hospital Encounter [facility] Endoscopy Department [address] [place] [address] Irineo Ruff MD [address] [place] [address] [email or web address] 03/15/2025 7:30 AM EST - 03/15/2025 8:15 AM EST Surgery [facility] Endoscopy Department [address] [place] [address] Irineo Ruff MD [address] [place] [address] [email or web address] COLONOSCOPY Scheduled Procedures Name Priority [...] documented as of this encounter Care Teams Composite Science Teacher Relationship Specialty Start Date End Date Laura Mock MD, DMD [address] [address] [email or web address] PCP - General Internal Medicine 06/04/21 11/11/23 Pcp, Unknown PCP - General 11/12/23 11/16/23 Laura Mock MD, DMD [address] [address] [email or web address] PCP - General Internal Medicine 11/17/23 12/28/23 Pcp, Unknown PCP - General 02/28/24 03/04/24 Nicole Newell MD [address] [place] [address] PCP - General 03/05/24 05/17/24 Laura Mock MD, DMD [address] [address] [email or web address] du PCP - General Internal Medicine 05/18/24 Rina Swenson MD Psychiatry 07/09/17 Laura Mock MD, DMD [address] [address] [email or web address] Attributed Provider 09/01/21 07/03/23 Laura Mock MD, DMD [address] [address] [email or web address] Insurance Assigned Provider 05/31/23 03/01/24 Jakob Bob MD [address] [place] [address] [email or web address] Cardiology 08/22/23 Jose Cruz MD [address] [place] [address] [email or web address] Cardiology 08/22/23 Laura Mock MD, DMD [address] [address] [email or web address] [employer] Attributed Provider 09/01/21 07/03/23 [facility] [phone]. Consulting Provider 08/22/23 [facility] Connect 12/24/23 03/11/24 Cyril Morales [address] [place] [phone] Nurse Practitioner 02/27/24 documented as of this encounter Additional Source Comments The information contained in this document represents components of the legal health record. It is not the complete legal health record.[facility]
--- OUTSIDE RECORDS SUMMARY | 2025-02-15 14:15 | XMS_ITS | Encounter Summary ---
Author Organization [facility] Address [address] [employer] [facility] [address] [place] [address] Phone Care Team Providers Care Fishing Vessel Captain Name Role Phone Rina Swenson MD Unavailable Laura Mock MD, DMD Primary Car e Provider Laura Mock MD, DMD Unavailable Laura Mock MD, DMD Unavailable Jakob Bob MD Unavailable Jose Cruz MD Unavailable [phone] Laura Mock MD, DMD Unavailable Pcp, Unknown Primary Care Provider UnavailLaura Ascencio MD, DMD Primary Car e Provider Pcp, Unknown Primary Care Provider UnavailNicole Arguelol MD Primary Care Provide r Laura Mock MD, DMD Primary Car e Provider Encounter Details Date Type Department Care Team (Late st Contact Info) Description 10/29/2022 Anti-coag visit [facility] [address] [place] [address] [phone] Catherine Hernández, PharmD [email or web address] Social History Tobacco Use Types Packs/Day [...] Description 03/08/2025 9:30 AM EST Pre-Admission Testing [facility] [address] [address] Irineo Ruff MD [address] [place] [address] [email or web address] 03/15/2025 Procedure Pass [facility] Endoscopy Department [address] [place] [address] 03/15/2025 7:30 AM EST Hospital Encounter [facility] Endoscopy Department [address] [place] [address] Irineo Ruff MD [address] [place] [address] [email or web address] 03/15/2025 7:30 AM EST - 03/15/2025 8:15 AM EST Surgery [facility] Endoscopy Department [address] [place] [address] Irineo Ruff MD [address] [place] [address] [place] [address] [email or web address] [email or web address] Scheduled Procedures Name Priority Associated [...] as of this encounter Care Teams Fishing Vessel Captain Relationship Specialty Start Date End Date Laura Mock MD, DMD [address] [address] [email or web address] PCP - General Internal Medicine 06/04/21 11/11/23 Pcp, Unknown PCP - General 11/12/23 11/16/23 Laura Mock MD, DMD [address] [address] [email or web address] PCP - General Internal Medicine 11/17/23 12/28/23 Pcp, Unknown PCP - General 02/28/24 03/04/24 Nicole Newell MD [address] [place] [address] [id number] PCP - General 03/05/24 05/17/24 Laura Mock MD, DMD [address] [address] [email or web address] du PCP - General Internal Medicine 05/18/24 Rina Swenson MD Psychiatry 07/09/17 Laura Mock MD, DMD [address] [address] [email or web address] Partners Attributed Provider 09/01/21 07/03/23 Laura Mock MD, DMD [address] [address] [email or web address] du Insurance Assigned Provider 05/31/23 03/01/24 Jakob Bob MD [address] [place] [address] [email or web address] Cardiology 08/22/23 Jose Cruz MD [address] [place] [address] Cardiology 08/22/23 Laura Mock MD, DMD [address] [address] [email or web address] Attributed Provider 09/01/21 07/03/23 [facility] [phone]. Consulting Provider 08/22/23 [facility] Connect 12/24/23 03/11/24 Cyril Morales [address] [place] [address] Nurse Practitioner 02/27/24 documented as of this encounter Additional Source Comments The information contained in this document represents components of the legal health record. It is not the complete legal health record.[facility]
--- OUTSIDE RECORDS SUMMARY | 2025-02-15 14:15 | XMS_ITS | Encounter Summary ---
Author Organization [facility] Address [facility] [employer] [facility] [address] [place] [address] Phone Care Team Providers Care Electronic Installer Name Role Phone Rina Swenson MD Unavailable [phone] Laura Mock MD, DMD Primary Car e Provider Laura Mock MD, DMD Unavailable Laura Mock MD, DMD Unavailable Jakob Bob MD Unavailable [phone] Jose Cruz MD Unavailable [phone] Laura Mock MD, DMD Unavailable Pcp, Unknown Primary Care Provider UnavailLaura Ascencio MD, DMD Primary Car e Provider Pcp, Unknown Primary Care Provider UnavailNicole Arguello MD Primary Care Provide r Laura Mock MD, DMD Primary Car e Provider Encounter Details Date Type Department Care Team (Late st Contact Info) Description 12/25/2022 Transcribe Orders [facility] Department [address] [place] [address] Laura Mock MD, DMD 1 [facility] [address] [place] [address] [email or web address] Breast screening (Primary Dx) Social History [...] Description 03/08/2025 9:30 AM EST Pre-Admission Testing [facility] 45 [facility] 2nd [place] [address] Irineo Ruff MD [address] [place] [address] [email or web address] 03/15/2025 Procedure Pass [facility] Endoscopy Department [address] [place] [address] 03/15/2025 7:30 AM EST Hospital Encounter [facility] Endoscopy Department [address] [place] [address] Irineo Ruff MD [address] [place] [address] [place] [address] [email or web address] 03/15/2025 7:30 AM EST - 03/15/2025 8:15 AM EST Surgery [facility] Endoscopy Department [address] [place] [address] Irineo Ruff MD [address] [place] [address] [place] [address] [email or web address] Scheduled Procedures Name [...] as of this encounter Care Teams Electronic Installer Relationship Specialty Start Date End Date Laura Mock MD, DMD [address] [address] [email or web address] PCP - General Internal Medicine 06/04/21 11/11/23 Pcp, Unknown PCP - General 11/12/23 11/16/23 Laura Mock MD, DMD [address] [address] [email or web address] du PCP - General Internal Medicine 11/17/23 12/28/23 Pcp, Unknown PCP - General 02/28/24 03/04/24 [place] [address] [place] [address] PCP - General 03/05/24 05/17/24 Laura Mock MD, DMD [address] [address] [email or web address] du PCP - General Internal Medicine 05/18/24 Rina Swenson MD Psychiatry 07/09/17 Laura Mock MD, DMD [address] [address] [email or web address] du Partners Attributed Provider 09/01/21 07/03/23 Laura Mock MD, DMD [address] [address] [email or web address] du Insurance Assigned Provider 05/31/23 03/01/24 Jakob Bob MD [address] [place] [address] [place] [address] [email or web address] Cardiology 08/22/23 Jose Cruz MD [address] [place] [address] Cardiology 08/22/23 Laura Mock MD, DMD [address] [address] [email or web address] [employer] Attributed Provider 09/01/21 07/03/23 [facility] [phone]. Consulting Provider 08/22/23 [facility] Connect 12/24/23 03/11/24 Cyril Morales [address] [place] [address] Nurse Practitioner 02/27/24 documented as of this encounter Additional Source Comments The information contained in this document represents components of the legal health record. It is not the complete legal health record.[facility]
--- OUTSIDE RECORDS SUMMARY | 2025-02-15 14:16 | XMS_ITS | Encounter Summary ---
Author Organization [facility] Address Formerly [facility] [place] [address] [address] Phone Care Team Providers Care Beamster Name Role Phone Tasha Greenwood MD Primary Care Provider [phone] Artie Meehan MD Primary Care Provider [phone] Artie Meehan MD Primary Care Provider [phone] Artie Meehan MD Unavailable Meera Campos Unavailable [phone] Amber Raygoza NP Unavailable Elvis Rendon MD Unavailable [phone] Modesta Rivera MD Unavailable [phone] Carlin Newman MD Unavailable [phone] Patti Bello MD Unavailable Lucila Melendez MD Unavailable [phone] Juan J Avitia DO Unavailable [phone] Tasha Greenwood MD Unavailable Mekhi Hernandez MD Unavailable Leora Fish PA-C Unavailable Angel Klein MD Unavailable [phone] Fredy Bruno MD Unavailable [phone] Sejal Dick MD Unavailable Cadence Rouse MD Unavailable [phone] Baljinder Hinson MD Unavailable [phone] Rina Swenson MD Unavailable Laura Mock MD, DMD Primary Car e Provider Laura Mock MD, DMD Unavailable Laura Mock MD, DMD Unavailable Jakob Bob MD Unavailable Jose Cruz MD Unavailable [phone] Laura Mock MD, DMD Unavailable Pcp, Unknown Primary Care Provider UnavailLaura Ascencio MD, DMD Primary Car e Provider Pcp, Unknown Primary Care Provider UnavailNicole Arguello MD Primary Care Provide r Laura Mock MD, DMD Primary Car e Provider Encounter Details Date Type Department Care Team (Late st Contact Info) Description 06/12/2017 Procedure Pass [facility] [address] [place] [address] Social History Tobacco Use Types Packs/Day Years [...] Description 03/08/2025 9:30 AM EST Pre-Admission Testing [facility] [address] [place] [address] Irineo Ruff MD [address] [place] [address] [email or web address] 03/15/2025 Procedure Pass [facility] Endoscopy Department [address] [place] [address] 03/15/2025 7:30 AM EST Hospital Encounter [facility] Endoscopy Department [address] [place] [address] Irineo Ruff MD [address] [place] [address] [email or web address] 03/15/2025 7:30 AM EST - 03/15/2025 8:15 AM EST Surgery [facility] Endoscopy Department [address] [place] [address] Irineo Ruff MD [address] [place] [address] [email or web address] COLONOSCOPY Scheduled [...] documented as of this encounter Care Teams Beamster Relationship Specialty Start Date End Date Tasha Greenwood MD [address] [place] [address] 2nd [place] [address] PCP - General 08/24/13 07/08/17 Artie Meehan MD [address] [place] [address] [place] [address] PCP - General Internal Medicine 07/09/17 10/25/17 Artie Meehan MD [address] [place] [address] [place] [address] PCP - General Internal Medicine 10/26/17 06/03/21 Laura Mock MD, DMD 1 [facility] [address] [place] [address] [email or web address] du PCP - General Internal Medicine 06/04/21 11/11/23 Pcp, Unknown PCP - General 11/12/23 11/16/23 Laura Mock MD, DMD [address] [address] [email or web address] du PCP - General Internal Medicine 11/17/23 12/28/23 Pcp, Unknown PCP - General 02/28/24 03/04/24 Nicole Newell MD [address] [place] [address] PCP - General 03/05/24 05/17/24 Laura Mock MD, DMD 1 [facility] [address] [place] [address] [email or web address] du PCP - General Internal Medicine 05/18/24 Artie Meehan MD [address] [place] [address] [place] [address] Internal Medicine 10/26/17 04/23/22 Meera Campos PA formerly [facility] [place] [address] Historical LMR Provider 12/14/16 Amber Raygoza NP [address] [place] [address] [address] [place] [address] Historical LMR Provider 12/14/16 Elvis Rendon MD [address] [place] [address], [address] [place] [address] Historical LMR Provider 12/14/16 8 Modesta Rivera MD [address] [place] [address], [address] [place] [address] Historical LMR Provider 12/14/16 Carlin Newman MD [address] [place] [address], 2[address] [place] [address] Historical LMR Provider 12/14/16 Patti Bello MD [address] [place] [address], [address] [place] [address] Historical LMR Provider 12/14/16 07/08/17 Lucila Melendez MD [address] [place] [address], [address] [place] [address] Historical LMR Provider 12/14/16 07/08/17 Juan J Avitia DO 4 [facility], [place] [address] [email or web address] Historical LMR Provider 12/14/16 07/08/17 Tasha Greenwood MD [address] [place] [address], 2nd [place] [address] [email or web address] Historical LMR Provider 12/14/16 07/08/17 Mekhi Hernandez MD [address] [place] [address] [place] [address] [email or web address] Historical LMR Provider 12/14/16 07/08/17 Leora Fish PA-C [address] [place] [address] [facility] [place] [address] [email or web address] Historical LMR Provider 12/14/16 8 Angel Klein MD [address] [place] [address], [address] [place] [address] [email or web address] Historical LMR Provider 12/14/16 Fredy Bruno MD [address] [place] [address] Historical LMR Provider 12/14/16 Sejal Dick MD [address] [place] [address] Orthopedics [facility] Sports [facility] [place] [address] Historical LMR Provider 12/14/1607/08 Cadence Rouse MD [address] [place] [address] Historical LMR Provider 12/14/16 Baljinder Hinson MD [address] [place] [address] Historical LMR Provider 12/14/16 Rina Swenson MD [address] [place] [address] Psychiatry 07/09/17 Laura Mock MD, DMD [address] [address] [email or web address] Partners Attributed Provider 09/01/21 07/03/23 Laura Mock MD, DMD [address] [address] [email or web address] Insurance Assigned Provider 05/31/23 03/01/24 Jakob Bob MD [address] [place] [address] [address] [place] [address] [email or web address] Cardiology 08/22/23 Jose Cruz MD [address] [place] [address], [address] [place] [address] Cardiology 08/22/23 Laura Mock MD, DMD 1 [facility] [address] [place] [address] [email or web address] Attributed Provider 09/01/21 07/03/23 [facility] [phone]. Consulting Provider 08/22/23 [facility] Connect 12/24/23 03/11/24 Cyril Morales [address] [place] [address] Nurse Practitioner 02/27/24 documented as of this encounter Additional Source Comments The information contained in this document represents components of the legal health record. It is not the complete legal health record.[facility]
--- OUTSIDE RECORDS SUMMARY | 2025-02-15 14:16 | XMS_ITS | Encounter Summary ---
Author Organization [facility] Address [address] [facility] [address] [place] [address] Phone Care Team Providers Care Cheese Packer Name Role Phone Artie Meehan MD Primary Care Provider [phone] Artie Meehan MD Unavailable Rina Swenson MD Unavailable Laura Mock MD, DMD Primary Car e Provider Laura Mock MD, DMD Unavailable Laura Mock MD, DMD Unavailable Jakob Bob MD Unavailable [phone] Jose Cruz MD Unavailable Laura Mock MD, DMD Unavailable Pcp, Unknown Primary Care Provider UnavailLaura Ascencio MD, DMD Primary Car e Provider Pcp, Unknown Primary Care Provider UnavailNicole Arguello MD Primary Care Provide r Laura Mock MD, DMD Primary Car e Provider Encounter Details Date Type Department Care Team (Late st Contact Info) Description 12/19/2017 Procedure Pass [facility] 75 [place] [address] Social History Tobacco Use Types Packs/Day Years [...] Description 03/08/2025 9:30 AM EST Pre-Admission Testing [facility] 45 [facility] 2nd [place] [address] Irineo Ruff MD [address] [place] [address] [email or web address] 03/15/2025 Procedure Pass [facility] Endoscopy Department [address] [place] [address] 03/15/2025 7:30 AM EST Hospital Encounter [facility] Endoscopy Department [address] [place] [address] Irineo Ruff MD [address] [place] [address] [email or web address] 03/15/2025 7:30 AM EST - 03/15/2025 8:15 AM EST Surgery [facility] Endoscopy Department [address] [place] [address] Irineo Ruff MD [address] [place] [address] [place] [address] [email or web address] [email or web address] Scheduled Procedures Name Priority Associated [...] documented as of this encounter Care Teams Cheese Packer Relationship Specialty Start Date End Date Artie Meehan MD [address] [place] [address] PCP - General Internal Medicine 10/26/17 06/03/21 Laura Mock MD, DMD [address] [address] [email or web address] PCP - General Internal Medicine 06/04/21 11/11/23 Pcp, Unknown PCP - General 11/12/23 11/16/23 Laura Mock MD, DMD [address] [address] [email or web address] PCP - General Internal Medicine 11/17/23 12/28/23 Pcp, Unknown PCP - General 02/28/24 03/04/24 [place] [address] [place] [address] PCP - General 03/05/24 05/17/24 Laura Mock MD, DMD [address] [address] [email or web address] du PCP - General Internal Medicine 05/18/24 Artie Meehan MD [address] [place] [address] [address] [place] [address] Internal Medicine 10/26/17 04/23/22 Rina Swenson MD [address] [place] [address] Dr [address] [place] [address] Psychiatry 07/09/17 Laura Mock MD, DMD [address] [address] [email or web address] du Partners Attributed Provider 09/01/21 07/03/23 Laura Mock MD, DMD [address] [address] [email or web address] du Insurance Assigned Provider 05/31/23 03/01/24 Jakob Bob MD [address] [place] [address] [address] [place] [address] [email or web address] Cardiology 08/22/23 Jose Cruz MD [address] [place] [address], [address] [place] [address] Cardiology 08/22/23 Laura Mock MD, DMD 1 [facility] [address] [place] [address] [email or web address] Attributed Provider 09/01/21 07/03/23 [facility] [phone]. Consulting Provider 08/22/23 [facility] Connect 12/24/23 03/11/24 Cyril Morales [address] [place] [address] Nurse Practitioner 02/27/24 documented as of this encounter Additional Source Comments The information contained in this document represents components of the legal health record. It is not the complete legal health record.[facility]
--- OUTSIDE RECORDS SUMMARY | 2025-02-15 14:16 | XMS_ITS | Encounter Summary ---
Author Organization [facility] Address [address] [facility] [address] [place] [address] Phone Care Team Providers Care Motor Electrician Name Role Phone Artie Meehan MD Primary Care Provider [phone] Artie Meehan MD Unavailable Rina Swenson MD Unavailable Laura Mock MD, DMD Primary Car e Provider Laura Mock MD, DMD Unavailable Laura Mock MD, DMD Unavailable Jakob Bob MD Unavailable Jose Cruz MD Unavailable [phone] Laura Mock MD, DMD Unavailable Pcp, Unknown Primary Care Provider UnavailLaura Ascencio MD, DMD Primary Car e Provider Pcp, Unknown Primary Care Provider UnavailNicole Arguello MD Primary Care Provide r Laura Mock MD, DMD Primary Car e Provider Encounter Details Date Type Department Care Team (Late st Contact Info) Description 12/11/2018 Ancillary Orders Virtual Department [address] [place] [address] Artie Meehan MD [address] [place] [address] [place] [address] Breast screening Social History Tobacco Use Types [...] Upcoming Encounters Date Type Department Care Team ([facility] st Contact Info) Description 03/08/2025 9:30 AM EST Pre-Admission Testing [address] [address] Irineo Ruff MD [address] [place] [address] [email or web address] 03/15/2025 Procedure Pass [facility] Endoscopy Department [address] [place] [address] 03/15/2025 7:30 AM EST Hospital Encounter [facility] Endoscopy Department [address] [place] [address] Irineo Ruff MD [address] [place] [address] [email or web address] 03/15/2025 7:30 AM EST - 03/15/2025 8:15 AM EST Surgery [facility] Endoscopy Department [address] [place] [address] Irineo Ruff MD [address] [place] [address] [place] [address] [email or web address] Scheduled Procedures Name Priority Associated Diagnoses Date/Ti ks COLONOSCOPY Abnormal colonoscopy 03/15/2025 7:30 AM EST [...] lowers the sensitivity of mammography. POS - [id number] Narrative 01/05/2019 1:52 PM EST Full-field digital [...] whichlowers the sensitivity of mammography. POS - [id number] Artie Meehan MD IMG MG EXAMS Final [...] as of this encounter Care Teams Motor Electrician Relationship Specialty Start Date End Date Artie Meehan MD [address] [place] [address] Dr [address] [place] [address] PCP - General Internal Medicine 10/26/17 06/03/21 Laura Mock MD, DMD [address] [address] [email or web address] PCP - General Internal Medicine 06/04/21 11/11/23 Pcp, Unknown PCP - General 11/12/23 11/16/23 Laura Mock MD, DMD [address] [address] [email or web address] PCP - General Internal Medicine 11/17/23 12/28/23 Pcp, Unknown PCP - General 02/28/24 03/04/24 [place] [address] [address] PCP - General 03/05/24 05/17/24 Laura Mock MD, DMD [address] [address] [email or web address] PCP - General Internal Medicine 05/18/24 Artie Meehan MD [address] [place] [address] Dr [address] [place] [address] Internal Medicine 10/26/17 04/23/22 Rina Swenson MD [address] [place] [address] Dr [address] [place] [address] Psychiatry 07/09/17 Laura Mock MD, DMD [address] [address] [email or web address] Attributed Provider 09/01/21 07/03/23 Laura Mock MD, DMD [address] [address] [email or web address] Insurance Assigned Provider 05/31/23 03/01/24 Jakob Bob MD [address] [place] [address] [place] [address] [email or web address] Cardiology 08/22/23 Jose Cruz MD [address] [place] [address] Cardiology 08/22/23 Laura Mock MD, DMD 1 [facility] [address] [place] [address] [email or web address] Attributed Provider 09/01/21 07/03/23 [facility] [phone]. Consulting Provider 08/22/23 [facility] Connect 12/24/23 03/11/24 Cyril Morales [address] [place] [address] Nurse Practitioner 02/27/24 documented as of this encounter Additional Source Comments The information contained in this document represents components of the legal health record. It is not the complete legal health record.[facility]
--- OUTSIDE RECORDS SUMMARY | 2025-02-15 14:16 | XMS_ITS | Encounter Summary ---
Author Organization [facility] Address [facility] [employer] [address] [address] Phone Care Team Providers Care Family Support Coordinator Name Role Phone Artie Meehan MD Primary Care Provider Artie Meehan MD Unavailable Rina Swenson MD Unavailable Laura Mock MD, DMD Primary Car e Provider Laura Mock MD, DMD Unavailable Laura Mock MD, DMD Unavailable Jakob Bob MD Unavailable [phone] Jose Cruz MD Unavailable [phone] Laura Mock MD, DMD Unavailable Pcp, Unknown [...] sequela Artie Meehan MD Phone: tel: fax: [facility] [address] [place] [address] Phone: tel: Referral ID Status Reason Start Date Expiration Date Visits Re quested Visits Authorized [id number] Closed 11/27/2018 02/23/2019 99 99 Encounter Details Date Type Department Care Team (Latest Contact Info) Description 11/27/2018 Transcribe Orders [facility] [address] [address] Artie Meehan MD [address] [place] [address] [facility] [place] [address] Left wrist fracture, sequela (Primary Dx) Social [...] Description 03/08/2025 9:30 AM EST [facility] [address] [facility] 2nd [place] [address] Irineo Ruff MD [address] [place] [address] [place] [address] [email or web address] 03/15/2025 Procedure Pass [facility] Endoscopy Department [address] [place] [address] 03/15/2025 7:30 AM EST Hospital Encounter [facility] Endoscopy Department [address] [place] [address] Irineo Ruff MD [address] [place] [address] [place] [address] [email or web address] 03/15/2025 7:30 AM EST - 03/15/2025 8:15 AM EST Surgery [facility] Endoscopy Department [address] [place] [address] Irineo Ruff MD [address] [place] [address] [place] [address] [email or web address] [email or web address] Scheduled Procedures Name Priority Associated Diagnoses Date/Ti me COLONOSCOPY Abnormal colonoscopy 03/15/2025 7:30 AM EST documented as of this encounter Procedures Procedure Name Priority Date/Time Associated Diagnosis Comments AMB REFERRAL TO [facility] OCCUPATIONAL THERAPY Routine 12/08/2018 4:10 PM EDT Left wrist fracture, sequela documented in this encounter Results * Ambulatory referral to [facility] Occupational Therapy (12/08/2018 4:10 PM EDT) Artie Meehan MD AMB [facility] REFERRALS Final R esult documented in this encounter Visit Diagnoses Diagnosis Left wrist fracture, sequela- Primary Abnormal colonoscopy documented in this encounter Additional Health Concerns Infection Onset Date Last Indicated Resolved Time CoV-Presumed 03/23/2022 03/23/2022 04/13/2022 1:23 AM EST CoV-Risk 11/12/2023 11/12/2023 11/12/2023 5:12 PM EDT COVID-19 11/12/2023 11/12/2023 12/03/2023 1:21 AM EDT documented as of this encounter Care Teams Family Support Coordinator Relationship Specialty Start Date End Date Artie Meehan MD [address] [place] [address] [place] [address] PCP - General Internal Medicine 10/26/17 06/03/21 Laura Mock MD, DMD 1 [address] [place] [address] [email or web address] PCP - General Internal Medicine 06/04/21 11/11/23 Pcp, Unknown PCP - General 11/12/23 11/16/23 Laura Mock MD, DMD [address] [address] [email or web address] PCP - General Internal Medicine 11/17/23 12/28/23 Pcp, Unknown PCP - General 02/28/24 03/04/24 Nicole Newell MD [address] [place] [address] PCP - General 03/05/24 05/17/24 Laura Mock MD, DMD [address] [address] [email or web address] PCP - General Internal Medicine 05/18/24 Artie Meehan MD [address] [place] [address] [place] [address] Internal Medicine 10/26/17 04/23/22 Rina Swenson MD [address] [place] [address] [place] [address] Psychiatry 07/09/17 Laura Mock MD, DMD [address] [address] [email or web address] Partners Attributed Provider 09/01/21 07/03/23 Laura Mock MD, DMD 1 [facility] [address] [place] [address] [email or web address] du Insurance Assigned Provider 05/31/23 03/01/24 Jakob Bob MD [facility] [place] [address] [email or web address] Cardiology 08/22/23 Jose Cruz MD [address] [place] [address], [facility] [address] [place] [address] [email or web address] Cardiology 08/22/23 Laura Mock MD, DMD [address] [address] [email or web address] Partners Attributed Provider 09/01/21 07/03/23 [facility] [phone]. Consulting Provider 08/22/23 [facility] Connect 12/24/23 03/11/24 Cyril Morales [facility] [place] [address] Nurse Practitioner 02/27/24 documented as of this encounter Additional Source Comments The information contained in this document represents components of the legal health record. It is not the complete legal health record.[facility]
--- OUTSIDE RECORDS SUMMARY | 2025-02-15 14:16 | XMS_ITS | Encounter Summary ---
Author Organization [facility] Address [address] [facility] [address] [place] [address] Phone Care Team Providers Care Diet Assistant Name Role Phone Artie Meehan MD Primary Care Provider [phone] Artie Meehan MD Unavailable [phone] Rina Swenson MD Unavailable Laura Mock MD, DMD Primary Car e Provider Laura Mock MD, DMD Unavailable Laura Mock MD, DMD Unavailable Jakob Bob MD Unavailable [phone] Jose Cruz MD Unavailable Laura Mock MD, [...] (GI/) Daryn Moyer MD Phone: tel: fax: mailto:[email or web address] Referral ID Status Reason Start Date Expiration Date Visits Re quested Visits Authorized [id number] Closed 12/24/2017 12/24/2018 1 1 Encounter Details Date Type Department Care Team (Late Contact Info) Description 12/24/[address] [facility] [address] [place], [place] [id number] [place] [address] Daryn Moyer MD [address] [place] [address] 11-3 [place] [address] [email or web address] Gross hematuria Social History Tobacco Use [...] Description 03/08/2025 9:30 AM EST [facility] [place] [facility] 2nd [place] [address] Irineo Ruff MD [address] [place] [address] [place] [address] [email or web address] 03/15/2025 Procedure Pass [facility] Endoscopy Department [address] [place] [address] 03/15/2025 7:30 AM EST Hospital Encounter [facility] Endoscopy Department [address] [place] [address] Irineo Ruff MD [address] [place] [address] [place] [address] [email or web address] 03/15/2025 7:30 AM EST - 03/15/2025 8:15 AM EST Surgery [facility] Endoscopy Department [address] [place] [address] Irineo Ruff MD [address] [place] [address] [place] [address] [email or web address] [email or web address] Scheduled Procedures Name Priority Associated Diagnoses Date/Ti la COLONOSCOPY Abnormal colonoscopy 03/15/2025 7:30 AM EST [...] documented as of this encounter Care Teams Diet Assistant Relationship Specialty Start Date End Date Artie Meehan MD [address] [place] [address] [place] [address] PCP - General Internal Medicine 10/26/17 06/03/21 Laura Mock MD, DMD 1 [facility] [address] [place] [address] [email or web address] PCP - General Internal Medicine 06/04/21 11/11/23 Pcp, Unknown PCP - General 11/12/23 11/16/23 Laura Mock MD, DMD 1 [facility] [address] [place] [address] [email or web address] PCP - General Internal Medicine 11/17/23 12/28/23 Pcp, Unknown PCP - General 02/28/24 03/04/24 Nicole Newell MD [address] [place] [address] PCP - General 03/05/24 05/17/24 Laura Mock MD, DMD [address] [address] [email or web address] PCP - General Internal Medicine 05/18/24 Artie Meehan MD [address] [place] [address] Dr [address] [place] [address] Internal Medicine 10/26/17 04/23/22 Rina Swenson MD [address] [place] [address] Dr D[address] [place] [address] Psychiatry 07/09/17 Laura Mock MD, DMD [address] [address] [email or web address] Partners Attributed Provider 09/01/21 07/03/23 Laura Mock MD, DMD [address] [address] [email or web address] Insurance Assigned Provider 05/31/23 03/01/24 Jakob Bob MD 75 [facility] [address] [place] [address] [email or web address] Cardiology 08/22/23 Jose Cruz MD [address] [place] [address], [address] [place] [address] [email or web address] Cardiology 08/22/23 Laura Mock MD, DMD 1 [facility] [address] [place] [address] [email or web address] Partners Attributed Provider 09/01/21 07/03/23 [facility] [phone]. Consulting Provider 08/22/23 [facility] Connect 12/24/23 03/11/24 Cyril Morales [address] [place] [address] Nurse Practitioner 02/27/24 documented as of this encounter Additional Source Comments The information contained in this document represents components of the legal health record. It is not the complete legal health record.[facility]
--- OUTSIDE RECORDS SUMMARY | 2025-02-15 14:16 | XMS_ITS | Encounter Summary ---
Author Organization [facility] Address [address] [employer] [facility] [address] [place] [address] Phone Care Team Providers Care Fresco Artist Name Role Phone Artie Meehan MD Primary Care Provider [phone] Artie Meehan MD Unavailable Rina Swenson MD Unavailable Laura Mock MD, DMD Primary Car e Provider Laura Mock MD, DMD Unavailable Laura Mock MD, DMD Unavailable Jakob Bob MD Unavailable [phone] Jose Cruz MD Unavailable Laura Mock MD, DMD Unavailable Pcp, Unknown Primary Care Provider UnavailLaura Ascencio MD, DMD Primary Car e Provider Pcp, Unknown Primary Care Provider UnavailNicole Arguello MD Primary Care Provide r Laura Mock MD, DMD Primary Car e Provider Encounter Details Date Type Department Care Team (Late st Contact Info) Description 05/20/2018 Transcribe Orders [facility] [address] [place] [address] Artie Meehan MD [address] [place] [address] [place] [address] 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) [...] 03/08/2025 9:30 AM EST Pre-Admission Testing [address] 2nd [place] [address] Irineo Ruff MD [address] [place] [address] [email or web address] 03/15/2025 Procedure Pass [facility] Endoscopy Department [address] [place] [address] 03/15/2025 7:30 AM EST Hospital Encounter [facility] Endoscopy Department [address] [place] [address] Irineo Ruff MD [address] [place] [address] [email or web address] 03/15/2025 7:30 AM EST - 03/15/2025 8:15 AM EST Surgery [facility] Endoscopy Department [address] [place] [address] Irineo Ruff MD [address] [place] [address] [place] [address] [email or web address] [email or web address] Scheduled Procedures Name Priority [...] documented as of this encounter Care Teams Fresco Artist Relationship Specialty Start Date End Date Artie Meehan MD [address] [place] [address] Dr Dior [facility] [place] [address] PCP - General Internal Medicine 10/26/17 06/03/21 Laura Mock MD, DMD [address] [address] [email or web address] PCP - General Internal Medicine 06/04/21 11/11/23 Pcp, Unknown PCP - General 11/12/23 11/16/23 Laura Mock MD, DMD [address] [address] [email or web address] PCP - General Internal Medicine 11/17/23 12/28/23 Pcp, Unknown PCP - General 02/28/24 03/04/24 [place] [address] [address] PCP - General 03/05/24 05/17/24 Laura Mock MD, DMD [address] [address] [email or web address] du PCP - General Internal Medicine 05/18/24 Artie Meehan MD [address] [place] [address] [address] [place] [address] Internal Medicine 10/26/17 04/23/22 Rina Swenson MD [address] [place] [address] Dr [address] [place] [address] Psychiatry 07/09/17 Laura Mock MD, DMD [address] [address] [email or web address] Partners Attributed Provider 09/01/21 07/03/23 Laura Mock MD, DMD [address] [address] [email or web address] du Insurance Assigned Provider 05/31/23 03/01/24 Jakob Bob MD [address] [place] [address] [place] [address] [email or web address] Cardiology 08/22/23 Jose Cruz MD [address] [place] [address] Cardiology 08/22/23 Laura Mock MD, DMD [address] [address] [email or web address] Partners Attributed Provider 09/01/21 07/03/23 [facility] [phone]. Consulting Provider 08/22/23 [facility] Connect 12/24/23 03/11/24 Cyril Morales [address] [place] [address] Nurse Practitioner 02/27/24 documented as of this encounter Additional Source Comments The information contained in this document represents components of the legal health record. It is not the complete legal health record.[facility]
--- OUTSIDE RECORDS SUMMARY | 2025-02-15 14:16 | XMS_ITS | Encounter Summary ---
Author Organization [facility] Address [facility] [employer] [facility] [address] [place] [address] Phone Care Team Providers Care Certified Surgical Technologist Name Role Phone Artie Meehan MD Primary [...] Info) Description 08/19/2017 Ancillary Orders Virtual Department [address] [place] [address] Artie Meehan MD [address] [place] [address] [place] [address] Breast screening Social History Tobacco Use Types [...] 03/08/2025 9:30 AM EST Pre-Admission Testing [address] 2nd [place] [address] Irineo Ruff MD [address] [place] [address] [email or web address] 03/15/[address] [facility] Endoscopy Department [address] [place] [address] 03/15/2025 7:30 AM EST Hospital Encounter [facility] Endoscopy Department [address] [place] [address] Irineo Ruff MD [address] [place] [address] [email or web address] 03/15/2025 7:30 AM EST - 03/15/2025 8:[address] [facility] Endoscopy Department [address] [place] [address] Irineo Ruff MD [address] [place] [address] [email or web address] COLONOSCOPY Scheduled Procedures [...] lowers the sensitivity of mammography. POS - [id number] Narrative 09/12/2017 2:03 PM EDT Full-field digital [...] whichlowers the sensitivity of mammography. POS - [id number] Artie Meehan MD IMG MG EXAMS Final [...] documented as of this encounter Care Teams Certified Surgical Technologist Relationship Specialty Start Date End Date Artie Meehan MD [address] [place] [address] Dr [address] [place] [address] PCP - General Internal Medicine 07/09/17 10/25/17 Artie Meehan MD [address] [place] [address] Dr [address] [place] [address] PCP - General Internal Medicine 10/26/17 06/03/21 Laura Mock MD, DMD [address] [address] [email or web address] PCP - General Internal Medicine 06/04/21 11/11/23 Pcp, Unknown PCP - General 11/12/23 11/16/23 Laura Mock MD, DMD [address] [address] [email or web address] PCP - General Internal Medicine 11/17/23 12/28/23 Pcp, Unknown PCP - General 02/28/24 03/04/24 [place] [address] [address] PCP - General 03/05/24 05/17/24 Laura Mock MD, DMD [address] [address] [email or web address] PCP - General Internal Medicine 05/18/24 Artie Meehan MD [address] [place] [address] Dr Dior [facility] [place] [address] Internal Medicine 10/26/17 04/23/22 Rina Swenson MD [address] [place] [address] [place] [address] [address] Psychiatry 07/09/17 Laura Mock MD, DMD [address] [address] [email or web address] Partners Attributed Provider 09/01/21 07/03/23 Laura Mock MD, DMD [address] [address] [email or web address] du Insurance Assigned Provider 05/31/23 03/01/24 Jakob Bob MD [address] [facility] [address] [place] [address] [email or web address] Cardiology 08/22/23 Joes Cruz MD [address] [facility], [address] [place] [address] [email or web address] Cardiology 08/22/23 Laura Mock MD, DMD [address] [facility] [address] [place] [address] [email or web address] Attributed Provider 09/01/21 07/03/23 [facility] [phone]. Consulting Provider 08/22/23 [facility] Connect 12/24/23 03/11/24 Cyril Morales [address] [place] [address] Nurse Practitioner 02/27/24 documented as of this encounter Additional Source Comments The information contained in this document represents components of the legal health record. It is not the complete legal health record.[facility]
--- OUTSIDE RECORDS SUMMARY | 2025-02-15 14:16 | XMS_ITS | Encounter Summary ---
Author Organization [facility] Address [address] [employer] [facility] [address] [place] [address] Phone Care Team Providers Care Welding Tester Name Role Phone Artie Meehan MD Primary Care Provider [phone] Artie Meehan MD Unavailable Rina Swenson MD Unavailable Laura Mock MD, DMD Primary Car e Provider Laura Mock MD, DMD Unavailable Laura Mock MD, DMD Unavailable Jakob Bob MD Unavailable Jose Cruz MD Unavailable [phone] Laura Mock MD, DMD Unavailable Pcp, Unknown Primary Care Provider UnavailLaura Ascencio MD, DMD Primary Car e Provider Pcp, Unknown Primary Care Provider UnavailNicole Arguello MD Primary Care Provide r Laura Mock MD, DMD Primary Car e Provider Encounter Details Date Type Department Care Team (Late st Contact Info) Description 10/26/2017 Procedure Pass [facility] Scan - [address] [address] Social History Tobacco Use Types Packs/Day Years [...] 03/08/2025 9:30 AM EST Pre-Admission Testing [address] 2nd [place] [address] Irineo Ruff MD [address] [place] [address] [email or web address] 03/15/2025 Procedure Pass [facility] Endoscopy Department [address] [place] [address] 03/15/2025 7:30 AM EST Hospital Encounter [facility] Endoscopy Department [address] [place] [address] Irineo Ruff MD [address] [place] [address] [email or web address] 03/15/2025 7:30 AM EST - 03/15/2025 8:15 AM EST Surgery [facility] Endoscopy Department [address] [place] [address] Irineo Ruff MD [address] [place] [address] [email or web address] COLONOSCOPY Scheduled Procedures [...] documented as of this encounter Care Teams Welding Tester Relationship Specialty Start Date End Date Artie Meehan MD [address] [place] [address] Dr Dior [facility] [place] [place] [address] PCP - General Internal Medicine 10/26/17 06/03/21 Laura Mock MD, DMD [address] [address] [email or web address] PCP - General Internal Medicine 06/04/21 11/11/23 Pcp, Unknown PCP - General 11/12/23 11/16/23 Laura Mock MD, DMD [address] [address] [email or web address] PCP - General Internal Medicine 11/17/23 12/28/23 Pcp, Unknown PCP - General 02/28/24 03/04/24 [place] [address] [place] [address] PCP - General 03/05/24 05/17/24 Laura Mock MD, DMD [address] [address] [email or web address] PCP - General Internal Medicine 05/18/24 Artie Meehan MD [address] [place] [address] [place] [address] Internal Medicine 10/26/17 04/23/22 Rina Swenson MD [address] [place] [address] [place] [address] Psychiatry 07/09/17 Laura Mock MD, DMD [address] [address] [email or web address] Partners Attributed Provider 09/01/21 07/03/23 Laura Mock MD, DMD [address] [address] [email or web address] Insurance Assigned Provider 05/31/23 03/01/24 Jakob Bob MD [address] [place] [address] [email or web address] Cardiology 08/22/23 Jose Cruz MD [address] [place] [address] Cardiology 08/22/23 Laura Mock MD, DMD [address] [address] [email or web address] Partners Attributed Provider 09/01/21 07/03/23 [facility] [phone]. Consulting Provider 08/22/23 CARMINA, CAROLANN Connect 12/24/23 03/11/24 Cyril Morales [address] [place] [address] Nurse Practitioner 02/27/24 documented as of this encounter Additional Source Comments The information contained in this document represents components of the legal health record. It is not the complete legal health record.[facility]
--- OUTSIDE RECORDS SUMMARY | 2025-02-15 14:16 | XMS_ITS | Encounter Summary ---
Author Organization [facility] Address [address] [facility] [address] [place] [address] Phone Care Team Providers Care Gallery Or Museum Attendant Name Role Phone Rina Swenson MD Unavailable Laura Mock MD, DMD Primary Car e Provider Laura Mock MD, DMD Unavailable Laura Mock MD, DMD Unavailable Jakob Bob MD Unavailable Jose Cruz MD Unavailable [phone] Laura Mock MD, DMD Unavailable Pcp, Unknown Primary Care Provider UnavailLaura Ascencio MD, DMD Primary Car e Provider Pcp, Unknown Primary Care Provider UnavailNicole Arguello MD Primary Care Provide r Laura Mock MD, DMD Primary Car e Provider Encounter Details Date Type Department Care Team (Late st Contact Info) Description 10/09/2022 Procedure Pass [facility] CT Imaging, [place] [address] [place] [address] Social History Tobacco Use Types Packs/Day Years [...] Description 03/08/2025 9:30 AM EST Pre-Admission Testing [facility] [address] [facility] 2nd [place] [address] Irineo Ruff MD [address] [place] [address] [email or web address] 03/15/2025 Procedure Pass [facility] Endoscopy Department [address] [place] [address] 03/15/2025 7:30 AM EST Hospital Encounter [facility] Endoscopy Department [address] [place] [address] Irineo Ruff MD [address] [place] [address] [email or web address] 03/15/2025 7:30 AM EST - 03/15/2025 8:15 AM EST Surgery [facility] Endoscopy Department [address] [place] [address] Irineo Ruff MD [address] [place] [address] [email or web address] COLONOSCOPY Scheduled Procedures Name Priority Associated [...] Date Laura Mock MD, DMD [address] [address] [email or web address] PCP - General Internal Medicine 06/04/21 11/11/23 Pcp, Unknown PCP - General 11/12/23 11/16/23 Laura Mock MD, DMD [address] [address] [email or web address] PCP - General Internal Medicine 11/17/23 12/28/23 Pcp, Unknown PCP - General 02/28/24 03/04/24 Nicole Newell MD [address] [place] [address] PCP - General 03/05/24 05/17/24 Laura Mock MD, DMD [address] [address] [email or web address] du PCP - General Internal Medicine 05/18/24 Rina Swenson MD Psychiatry 07/09/17 Laura Mock MD, DMD [address] [address] [email or web address] Partners Attributed Provider 09/01/21 07/03/23 Laura Mock MD, DMD [address] [address] [email or web address] Insurance Assigned Provider 05/31/23 03/01/24 Jakob Bob MD [address] [place] [address] [email or web address] Cardiology 08/22/23 Jose Cruz MD [address] [place] [address] Cardiology 08/22/23 Laura Mock MD, DMD [address] [address] [email or web address] Partners Attributed Provider 09/01/21 07/03/23 [place] [facility] [phone]. Consulting Provider 08/22/23 [facility] Connect 12/24/23 03/11/24 Cyril Morales [address] [place], [place] [phone] Nurse Practitioner 02/27/24 documented as of this encounter Additional Source Comments The information contained in this document represents components of the legal health record. It is not the complete legal health record.[facility]
--- OUTSIDE RECORDS SUMMARY | 2025-02-15 14:16 | XMS_ITS | Encounter Summary ---
Author Organization [facility] Address [facility] [address] [address] Phone Care Team Providers Care Charge Rn Name Role Phone Rina Swenson MD Unavailable [phone] Laura Mock MD, DMD Primary Car e [...] 03/08/2025 9:30 AM EST Pre-Admission Testing [address] [address] Irineo Ruff MD [address] [place] [address] [email or web address] 03/15/2025 Procedure Pass [facility] Endoscopy Department [address] [place] [address] 03/15/2025 7:30 AM EST Hospital Encounter [facility] Endoscopy Department [address] [place] [address] Irineo Ruff MD [address] [place] [address] [email or web address] 03/15/2025 7:30 AM EST - 03/15/2025 8:15 AM EST Surgery [facility] Endoscopy Department [address] [place] [address] Irineo Ruff MD [address] [place] [address] [email or web address] COLONOSCOPY Scheduled Procedures Name Priority [...] documented as of this encounter Care Teams Charge Rn Relationship Specialty Start Date End Date Laura Mock MD, DMD [address] [address] [email or web address] PCP - General Internal Medicine 06/04/21 11/11/23 Pcp, Unknown PCP - General 11/12/23 11/16/23 Laura Mock MD, DMD [address] [address] [email or web address] du PCP - General Internal Medicine 11/17/23 12/28/23 Pcp, Unknown PCP - General 02/28/24 03/04/24 [place] [address] [address] PCP - General 03/05/24 05/17/24 Laura Mock MD, DMD [address] [address] [email or web address] du PCP - General Internal Medicine 05/18/24 Rina Swenson MD Psychiatry 07/09/17 Laura Mock MD, DMD [address] [address] [email or web address] [employer] Attributed Provider 09/01/21 07/03/23 Laura Mock MD, DMD [address] [address] [email or web address] du Insurance Assigned Provider 05/31/23 03/01/24 Jakob Bob MD [address] [place] [address] [email or web address] Cardiology 08/22/23 Jose Cruz MD [address] [place] [address] Cardiology 08/22/23 Laura Mock MD, DMD [address] [address] [email or web address] Partners Attributed Provider 09/01/21 07/03/23 [place] [facility] [phone]. Consulting Provider 08/22/23 [facility] Connect 12/24/23 03/11/24 Cyril Morales [address] [place] [phone] Nurse Practitioner 02/27/24 documented as of this encounter Additional Source Comments The information contained in this document represents components of the legal health record. It is not the complete legal health record.[facility]
--- OUTSIDE RECORDS SUMMARY | 2025-02-15 14:16 | XMS_ITS | Encounter Summary ---
Author Organization [facility] Address [address] [employer] [facility] [address] [place] [address] Phone Care Team Providers Care Cordage Sales Representative Name Role Phone Rina Swenson MD Unavailable [phone] Laura Mock MD, DMD Primary Car e [...] st Contact Info) Description 03/23/2023 Anti-coag visit [facility] [address] [place] [address] Purvi Lawler, PharmD [address] [place] [address] [email or web address] Social History Tobacco Use Types [...] Description 03/08/2025 9:30 AM EST [facility] [address] [address] Irineo Ruff MD [address] [place] [address] [place] [address] [email or web address] 03/15/2025 Procedure Pass [facility] Endoscopy Department [address] [place] [address] 03/15/2025 7:30 AM EST Hospital Encounter [facility] Endoscopy Department [address] [place] [address] Irineo Ruff MD [address] [place] [address] [place] [address] [email or web address] 03/15/2025 7:30 AM EST - 03/15/2025 8:15 AM EST Surgery [facility] Endoscopy Department [address] [place] [address] Irineo Ruff MD [address] [place] [address] [place] [address] [email or web address] COLONOSCOPY Scheduled Procedures Name Priority [...] documented as of this encounter Care Teams Cordage Sales Representative Relationship Specialty Start Date End Date Laura Mock MD, DMD [address] [address] [email or web address] PCP - General Internal Medicine 06/04/21 11/11/23 Pcp, Unknown PCP - General 11/12/23 11/16/23 Laura Mock MD, DMD [address] [address] [email or web address] PCP - General Internal Medicine 11/17/23 12/28/23 Pcp, Unknown PCP - General 02/28/24 03/04/24 [place] [address] [address] PCP - General 03/05/24 05/17/24 Laura Mock MD, DMD [address] [address] [email or web address] PCP - General Internal Medicine 05/18/24 Rina Swenson MD Psychiatry 07/09/17 Laura Mock MD, DMD [address] [address] [email or web address] Partners Attributed Provider 09/01/21 07/03/23 Laura Mock MD, DMD [address] [address] [email or web address] du Insurance Assigned Provider 05/31/23 03/01/24 Jakob Bob MD [address] [place] [address] [email or web address] Cardiology 08/22/23 Jose Cruz MD [address] [place] [address] Cardiology 08/22/23 Laura Mock MD, DMD [address] [address] [email or web address] Partners Attributed Provider 09/01/21 07/03/23 [facility] [phone]. Consulting Provider 08/22/23 [facility] Connect 12/24/23 03/11/24 Cyril Morales [address] [place] [phone] Nurse Practitioner 02/27/24 documented as of this encounter Additional Source Comments The information contained in this document represents components of the legal health record. It is not the complete legal health record.[facility]
--- OUTSIDE RECORDS SUMMARY | 2025-02-15 14:16 | XMS_ITS | Clinical Summary ---
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 No [...] given a the option to go to [facility] Coumadin clinic or to go back to [facility] where she has been a patient [...] 01/28/2025 Ancillary Orders [facility] [address] [place] [address] Karena Betancur MD 01/28/2025 Ancillary Orders [facility] [address] [place] [address] Karena Betancur MD 01/21/2025 Telephone [facility] [address] [address] Angely Morgan PA-C 12/30/2024 Telephone [facility] [address] 2nd [place] [address] Laura Mock MD, DMD Medication Question from [...] 03/08/2025 9:30 AM EST Pre-Admission Testing [address] 2nd [place] [address] Irineo Ruff MD [address] [place] [address] [email or web address] 03/15/2025 Procedure Pass [facility] Endoscopy Department [address] [place] [address] 03/15/2025 7:30 AM EST Hospital Encounter [facility] Endoscopy Department [address] [place] [address] Irineo Ruff MD [address] [place] [address] [place] [address] [email or web address] 03/15/2025 7:30 AM EST - 03/15/2025 8:15 AM EST Surgery [facility] Endoscopy Department [address] [place] [address] Irineo Ruff MD [address] [place] [address] [place] [address] [email or web address] [email or web address] Scheduled Procedures [...] this topic Medical Devices Implanted Type Area Superintendent Container Terminal Device Identifier Shelf Expiration Date Model / Serial / Lot St Drew Aortic Valve 23mm-04/19/2002 Implanted:04/19/19 03 (Quantity not on file) Description:Per OP report fr om 04/19/02: Pt has a 23mm [employer] Drew Aortic Valve replacement Per plumbing warehouse helper: cond to 1.5T and 3T (see scanned [...] EDT) SODIUM 139 136 - 145 mmol/L [facility] POTASSIUM 4.8 3.4 - 5.1 mmol/L [facility] CHLORIDE 100 98 - 107 mmol/L [facility] CO2 28 22 - 31 mmol/L [facility] BUN 18 6 - 23 mg/dL [facility] CREATININE 0.71 0.50 - 1.20 mg/dL [facility] GLUCOSE 94 70 - 100 mg/dL [facility] CALCIUM 9.6 8.8 - 10.7 mg/dL [facility] EGFR 83 >59 mL/min/1.7 3m2 [facility] Comment:Estimated glomerular filtration rate calculated using the CKD-EPI refit equation. ANION GAP 11 7 - 17 mmol/L [facility] Blood 12/04/2023 1:58 PM EDT 12/04/2023 2:02 PM EDT us Jim Zacarias MD LAB BLOOD BKR ORDERA BLES Final Result Performing Organization Address City/State/[facility] Co de Phone Number [facility] [address] [place] [address] * BD DXA AXIAL (SPINE) WITH HIP [...] bone mineral density was calculated at 0.409 gm/lv8widv a T- score of -4 falling within [...] Maintenance Insurance MEDICARE PART A & B [employer] MEDEX SUPPLEMENT MEDICARE PART A & B [employer] SUPPLEMENT MEDICARE PART A & B [employer] SUPPLEMENT MEDICARE PART A & B [employer] SUPPLEMENT MEDICARE PART A & B [employer] SUPPLEMENT MEDICARE PART A & B [employer] MED[employer] SUPPLEMENT MEDICARE PART A & B [employer] MEDEX SUPPLEMENT MEDICARE PART A & B [employer] MEDEX SUPPLEMENT MEDICARE PART A & B [employer] MEDEX SUPPLEMENT Advance Directives For more information, please contact: [phone] (9AM - 5PM Nataliya/[facility], Friday-Friday) Documents on File Type Date Recorded Patient Director Of Procurement Expl anation Healthcare Proxy 11/18/2023 2:08 PM Healthcare Proxy 11/14/2023 7:46 AM Health care Proxy * Full Code (Latest Code Status on File) Date Activated Date Inactivated Comments 11/12/2023 10:33 PM Question Answer Comments Code Status Confirmed With: Other (specify below ) Code Discussion Comments: Presumed Care Teams Budder Relationship Specialty Start Date End Date Laura Mock MD, DMD 1 [facility] [address] [place] [address] [email or web address] PCP - General Internal Medicine 05/18/24 Rina Swenson MD Psychiatry 07/09/17 Jakob Bob MD [address] [address] [email or web address] Cardiology 08/22/23 Jose Cruz MD 22 [facility] [address] [place] [address] Cardiology 08/22/23 [facility] [phone]. Consulting Provider 08/22/23 Cyril Morales [address] [place] [address] Nurse Practitioner 02/27/24 Additional Source Comments The information contained in this document represents components of the legal health record. It is not the complete legal health record.[facility]
--- OUTSIDE RECORDS SUMMARY | 2025-02-15 14:16 | XMS_ITS | Encounter Summary ---
Author Organization [facility] Address [address] [facility] [address] [place] [address] Phone Care Team Providers Care Metal Rivet Machine Operator Name Role Phone Artie Meehan MD Primary Care Provider [phone] Artie Meehan MD Unavailable Rina Swenson MD [...] Contact Info) Description 11/27/2018 Transcribe Orders [facility] [address] [place] [address] Artie Meehan MD [address] [place] [address] [place] [address] Social History Tobacco Use Types Packs/Day Years [...] 03/08/2025 9:30 AM EST Pre-Admission Testing [address] [address] Irineo Ruff MD [address] [place] [address] [email or web address] 03/15/2025 Procedure Pass [facility] Endoscopy Department [address] [place] [address] 03/15/2025 7:30 AM EST Hospital Encounter [facility] Endoscopy Department [address] [place] [address] Irineo Ruff MD [address] [place] [address] [email or web address] 03/15/2025 7:30 AM EST - 03/15/2025 8:15 AM EST Surgery [facility] Endoscopy Department [address] [place] [address] Irineo Ruff MD [address] [place] [address] [email or web address] COLONOSCOPY Scheduled Procedures Name Priority Associated [...] as of this encounter Care Teams Metal Rivet Machine Operator Relationship Specialty Start Date End Date Artie Meehan MD [address] [place] [address] Dr [address] [place] [address], [place] [address] PCP - General Internal Medicine 10/26/17 06/03/21 Laura Mock MD, DMD [address] [address] [email or web address] PCP - General Internal Medicine 06/04/21 11/11/23 Pcp, Unknown PCP - General 11/12/23 11/16/23 Laura Mock MD, DMD [address] [address] [email or web address] PCP - General Internal Medicine 11/17/23 12/28/23 Pcp, Unknown PCP - General 02/28/24 03/04/24 [place] [address] [address] PCP - General 03/05/24 05/17/24 Laura Mock MD, DMD [address] [address] [email or web address] PCP - General Internal Medicine 05/18/24 Artie Meehan MD [address] [place] [address] [place] [address] Internal Medicine 10/26/17 04/23/22 Rina Swenson MD [address] [place] [address] Dr Nichols [facility] [place] [address] Psychiatry 07/09/17 Laura Mock MD, DMD [address] [address] [email or web address] Partners Attributed Provider 09/01/21 07/03/23 Laura Mock MD, DMD [address] [address] [email or web address] Insurance Assigned Provider 05/31/23 03/01/24 Jakob Bob MD [address] [place] [address] [email or web address] Cardiology 08/22/23 Jose Cruz MD [address] [place] [address], [facility] [address] [place] [address] Cardiology 08/22/23 Laura Mock MD, DMD [address] [address] [email or web address] Attributed Provider 09/01/21 07/03/23 [facility] [phone]. Consulting Provider 08/22/23 [facility] Connect 12/24/23 03/11/24 Cyril Morales [address] [place] [phone] Nurse Practitioner 02/27/24 documented as of this encounter Additional Source Comments The information contained in this document represents components of the legal health record. It is not the complete legal health record.[facility]
--- OUTSIDE RECORDS SUMMARY | 2025-02-15 14:16 | XMS_ITS | Encounter Summary ---
Author Organization [facility] Address [facility] [place] [employer] [address] [address] Phone Care Team Providers Care Chlorine Plant Operator Name Role Phone Rina Swenson MD [...] 03/08/2025 9:30 AM EST Pre-Admission Testing [address] [address] Irineo Ruff MD [address] [place] [address] [email or web address] 03/15/2025 Procedure Pass [facility] Endoscopy Department [address] [place] [address] 03/15/2025 7:30 AM EST Hospital Encounter [facility] Endoscopy Department [address] [place] [address] Irineo Ruff MD [address] [place] [address] [email or web address] 03/15/2025 7:30 AM EST - 03/15/2025 8:15 AM EST Surgery [facility] Endoscopy Department [address] [place] [address] Irineo Ruff MD [address] [place] [address] [email or web address] COLONOSCOPY Scheduled Procedures Name Priority [...] documented as of this encounter Care Teams Chlorine Plant Operator Relationship Specialty Start Date End Date Laura Mock MD, DMD [address] [address] [email or web address] PCP - General Internal Medicine 06/04/21 11/11/23 Pcp, Unknown PCP - General 11/12/23 11/16/23 Laura Mock MD, DMD [address] [address] [email or web address] du PCP - General Internal Medicine 11/17/23 12/28/23 Pcp, Unknown PCP - General 02/28/24 03/04/24 [place] [address] [address] PCP - General 03/05/24 05/17/24 Laura Mock MD, DMD [address] [address] [email or web address] PCP - General Internal Medicine 05/18/24 Rina Swenson MD Psychiatry 07/09/17 Laura Mock MD, DMD [address] [address] [email or web address] Attributed Provider 09/01/21 07/03/23 Laura Mock MD, DMD [address] [address] [email or web address] Insurance Assigned Provider 05/31/23 03/01/24 Jakob Bob MD [address] [place] [address] [email or web address] [place] Cardiology 08/22/23 Jsoe Cruz MD [address] [place] [address] Cardiology 08/22/23 Laura Mock MD, DMD [address] [address] [email or web address] Partners Attributed Provider 09/01/21 07/03/23 [place] [facility] [phone]. Consulting Provider 08/22/23 [facility] Connect 12/24/23 03/11/24 Cyril Morales [address] [place] [phone] Nurse Practitioner 02/27/24 documented as of this encounter Additional Source Comments The information contained in this document represents components of the legal health record. It is not the complete legal health record.[facility]
--- OUTSIDE RECORDS SUMMARY | 2025-02-15 14:16 | XMS_ITS | Encounter Summary ---
Author Organization [facility] Address [address] [employer] [facility] [address] [place] [address] Phone Care Team Providers Care Cementer Oil Well Name Role Phone Artie Meehan MD Primary Care Provider [phone] Artie Meehan MD Unavailable Rina Swenson MD Unavailable [phone] Laura Mock MD, DMD Primary Car e [...] Expiration Date Visits Re quested Visits Authorized [id number] Closed 05/15/2018 05/15/2019 1 1 Encounter Details Date Type Department Care Team (Late st Contact Info) Description 05/15/2018 Ancillary Orders For Login Purposes Only 15 [facility] 2 [address] [place] [address] Artie Meehan MD [address] [place] [address] [place] [address] Pancreatic cyst Social History Tobacco Use Types [...] Description 03/08/2025 9:30 AM EST Pre-Admission Testing [facility] [address] [address] Irineo Ruff MD [address] [place] [address] [place] [address] [email or web address] 03/15/2025 Procedure Pass [facility] Endoscopy Department [address] [place] [address] 03/15/2025 7:30 AM EST Hospital Encounter [facility] Endoscopy Department [address] [place] [address] Irineo Ruff MD [address] [place] [address] [place] [address] [email or web address] 03/15/2025 7:30 AM EST - 03/15/2025 8:15 AM EST Surgery [facility] Endoscopy Department [address] [place] [address] Irineo Ruff MD [address] [place] [address] [place] [address] [email or web address] Scheduled Procedures Name [...] renal cysts. Right hepatic lobe cyst. POS [id number] Edited by: Abbie Barnett on 05/22/2018 12:52 [...] renal cysts. Right hepatic lobe cyst. POS [id number] Edited by: Abbie Barnett on 05/22/2018 12:52 [...] documented as of this encounter Care Teams Cementer Oil Well Relationship Specialty Start Date End Date Artie Meehan MD [address] [place] [address] Dr D[address] [place] [address] [place] [address] PCP - General Internal Medicine 10/26/17 06/03/21 Laura Mock MD, DMD [address] [address] [email or web address] du PCP - General Internal Medicine 06/04/21 11/11/23 Pcp, Unknown PCP - General 11/12/23 11/16/23 Laura Mock MD, DMD [address] [address] [email or web address] PCP - General Internal Medicine 11/17/23 12/28/23 Pcp, Unknown PCP - General 02/28/24 03/04/24 [place] [address] [address] PCP - General 03/05/24 05/17/24 Laura Mock MD, DMD [address] [address] [email or web address] du PCP - General Internal Medicine 05/18/24 Artie Meehan MD [address] [place] [address] [place] [address] Internal Medicine 10/26/17 04/23/22 Rina Swenson MD [address] [place] [address] [place] [address] Psychiatry 07/09/17 Laura Mock MD, DMD [address] [address] [email or web address] Partners Attributed Provider 09/01/21 07/03/23 Laura Mock MD, DMD 1 [facility] [address] [place] [address] [email or web address] du Insurance Assigned Provider 05/31/23 03/01/24 Jakob Bob MD [address] [place] [address] [email or web address] Cardiology 08/22/23 Jose Cruz MD [address] [place] [address], [address] [place] [address] Cardiology 08/22/23 Laura Mock MD, DMD [address] [address] [email or web address] du Partners Attributed Provider 09/01/21 07/03/23 [facility] [phone]. Consulting Provider 08/22/23 [facility] Connect 12/24/23 03/11/24 Cyril Morales [address] [place] [address] Nurse Practitioner 02/27/24 documented as of this encounter Additional Source Comments The information contained in this document represents components of the legal health record. It is not the complete legal health record.[facility]
--- OUTSIDE RECORDS SUMMARY | 2025-02-15 14:16 | XMS_ITS | Encounter Summary ---
Author Organization [facility] Address 399 [employer] [facility] [address] [place] [address] Phone Care Team Providers Care Payroll Machine Operator Name Role Phone Artie Meehan MD Primary Care Provider [phone] Artie Meehan MD Unavailable [phone] Rina Swenson MD Unavailable Laura Mock MD, DMD Primary Car e Provider Laura Mock MD, DMD Unavailable Laura Mock MD, DMD Unavailable Jakob Bob MD Unavailable [phone] Jose Cruz MD Unavailable Laura Mock MD, DMD Unavailable Pcp, Unknown Primary Care Provider UnavailLaura Ascencio MD, DMD Primary Car e Provider Pcp, Unknown Primary Care Provider UnavailNicole Arguello MD Primary Care Provide r Laura Mock MD, DMD Primary Car e Provider Encounter Details Date Type Department Care Team (Late st Contact Info) Description 05/23/2018 Transcribe Orders [facility] Phleb Main [address] [place] [address] Artie Meehan MD [address] [place] [address] [place] [address] 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 Social History [...] Upcoming Encounters Date Type Department Care Team ([facility] st Contact Info) Description 03/08/2025 9:30 AM EST Pre-Admission Testing [address] [place] [address] Irineo Ruff MD [address] [place] [address] [email or web address] 03/15/2025 Procedure Pass [facility] Endoscopy Department [address] [place] [address] 03/15/2025 7:30 AM EST Hospital Encounter [facility] Endoscopy Department [address] [place] [address] Irineo Ruff MD [address] [place] [address] [email or web address] 03/15/2025 7:30 AM EST - 03/15/2025 8:15 AM EST Surgery [facility] Endoscopy Department [address] [place] [address] Irineo Ruff MD [address] [place] [address] [place] [address] [email or web address] Scheduled Procedures Name Priority Associated Diagnoses Date/Ti me COLONOSCOPY Abnormal colonoscopy 03/15/2025 7:30 AM EST documented as of this encounter Procedures Procedure Name Priority Date/Time Associated Diagnosis Comments PT-INR STAT 05/23/2018 11:36 AM EDT 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 documented in this encounter Results * (ABNORMAL) PT-INR (05/23/2018 11:36 AM EDT) PT 14.8(H) 10.2 - 12.9 sec [facility] INR 1.3(H) 0.9 - 1.1 [facility] Comment:Therapeutic range fo r oral Vitamin K antagonists: 2.0-3.5 Blood 05/23/2018 11:3 6 AM EDT 05/23/2018 11:39 AM EDT us Artie Meehan MD LAB BLOOD BKR ORDERABLES Final Result [facility] [address] [place] [address] documented in this encounter Visit Diagnoses Diagnosis 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 [address] [place] [address] [email or web address] du PCP - General Internal Medicine 06/04/21 11/11/23 Pcp, Unknown PCP - General 11/12/23 11/16/23 Laura Mock MD, DMD [address] [address] [email or web address] du PCP - General Internal Medicine 11/17/23 12/28/23 Pcp, Unknown PCP - General 02/28/24 03/04/24 Nicole Newell MD [address] [place] [address] PCP - General 03/05/24 05/17/24 Laura Mock MD, DMD [address] [address] [email or web address] du PCP - General Internal Medicine 05/18/24 Artie Meehan MD [address] [place] [address] [address] Internal Medicine 10/26/17 04/23/22 Rina Swenson MD [address] [place] [address] [address] Psychiatry 07/09/17 Laura Mock MD, DMD [address] [address] [email or web address] Partners Attributed Provider 09/01/21 07/03/23 Laura Mock MD, DMD 1 [facility] [address] [place] [address] [email or web address] du Insurance Assigned Provider 05/31/23 03/01/24 Jakob Bob MD 75 [facility] [address] [place] [address] [email or web address] Cardiology 08/22/23 Jose Cruz MD [address] [place] [address], [facility] [address] [place] [address] [email or web address] Cardiology 08/22/23 Laura Mock MD, DMD 1 [facility] [address] [place] [address] [email or web address] Partners Attributed Provider 09/01/21 07/03/23 [facility] [phone]. Consulting Provider 08/22/23 [facility] Connect 12/24/23 03/11/24 Cyril Morales [address] [place] [address] Nurse Practitioner 02/27/24 documented as of this encounter Additional Source Comments The information contained in this document represents components of the legal health record. It is not the complete legal health record.[facility]
--- OUTSIDE RECORDS SUMMARY | 2025-02-15 14:16 | XMS_ITS | Encounter Summary ---
Author Organization [facility] Address [address] [employer] [facility] [address] [place] [address] Phone Care Team Providers Care Tint Layer Name Role Phone Artie Meehan MD Primary Care Provider [phone] Artie Meehan MD Unavailable Rina Swenson MD Unavailable Laura Mock MD, DMD Primary Car e Provider Laura Mock MD, DMD Unavailable Laura Mock MD, DMD Unavailable Jakob Bob MD Unavailable [phone] Jose Cruz MD Unavailable [phone] Laura Mock MD, DMD Unavailable Pcp, Unknown Primary Care Provider UnavailLaura Ascencio MD, DMD Primary Car e Provider Pcp, Unknown Primary Care Provider UnavailNicole Arguello MD Primary Care Provide r Laura Mock MD, DMD Primary Car e Provider Encounter Details Date Type Department Care Team (Late st Contact Info) Description 11/29/2017 Transcribe Orders [facility] Main [address] [place] [address] Artie Meehan MD [address] [place] [address] [place] [address] Hypertension, essential (Primary Dx) Social History Tobacco [...] 03/08/2025 9:30 AM EST Pre-Admission Testing [address] [place] [address] Irineo Ruff MD [address] [place] [address] [email or web address] 03/15/2025 Procedure Pass [facility] Endoscopy Department [address] [place] [address] 03/15/2025 7:30 AM EST Hospital Encounter [facility] Endoscopy Department [address] [place] [address] Irineo Ruff MD [address] [place] [address] [email or web address] 03/15/2025 7:30 AM EST - 03/15/2025 8:15 AM EST Surgery [facility] Endoscopy Department [address] [place] [address] Irineo Ruff MD [address] [place] [address] [place] [address] [email or web address] [email or web address] Scheduled Procedures Name Priority Associated Diagnoses Date/Ti fl COLONOSCOPY Abnormal colonoscopy 03/15/2025 7:30 AM EST documented as of this encounter Results * (ABNORMAL) Urinalysis (11/29/2017 10:52 AM EDT) COLOR Yellow Yellow [facility] CLARITY Clear [facility] GLUCOSE Negative Negative [facility] BILI Negative Negative [facility] KETONES Negative Negative [facility] SPECIFIC GRAVITY 1.015 1.005 - 1.030 [facility] BLOOD Trace(A) Negative [facility] PH 6.0 5.0 - 8.0 [facility] Protein-UA Negative Negative [facility] NITRITE Negative Negative [facility] Leukocyte esterase, ur Negative Negative [facility] Urine (Urine) 11/29/2017 10: 52 AM EDT 11/29/2017 10:57 AM EDT Artie Meehan MD LAB URINE ORDERABLES Neela milian Result [facility] [address] [place], [place] [id number] * (ABNORMAL) CBC and differential (11/29/2017 10:52 AM EDT) WBC 3.98 3.40 - 11.20 K/uL [facility] RBC 5.32(H) 3.80 - 4.80 M/uL [facility] HGB 15.7(H) 12.0 - 15.0 g/dL [facility] HCT 48.4(H) 36.0 - 46.0 % [facility] PLT 223 130 - 400 K/uL [facility] MCV 91.0 79.0 - 98.0 fL [facility] MCH 29.5 27.0 - 34.8 pg [facility] MCHC 32.4 31.5 - 36.0 g/dL [facility] RDW 13.4 10.8 - 14.6 % [facility] MPV 9.1(L) 9.4 - 12.4 fl [facility] NRBC 0.00 /100 WBCs [facility] ABSOLUTE NRBC 0.00 K/uL [facility] DIFF METHOD Auto [facility] NEUTS 58.8 45.30 - 77.70 % [facility] LYMPHS 26.6 12.30 - 39.70 % [facility] MONOS 10.8 4.10 - 12.80 % [facility] EOS 2.5 0 - 7.2 % [facility] BASOS 1.0 0 - 2.80 % [facility] Granulocytes, immature (%) 0.3 0.0 - 0.9 % [facility] ABSOLUTE NEUTS 2.34 1.40 - 7.70 K/uL [facility] ABSOLUTE LYMPHS 1.06 0.60 - 3.20 K/uL [facility] ABSOLUTE MONOS 0.43 0.11 - 0.59 K/uL [facility] ABSOLUTE EOS 0.10 0.01 - 0.50 K/uL [facility] ABSOLUTE BASOS 0.04 0.00 - 0.08 K/uL [facility] Granulocytes, immature 0.01 0.00 - 0.05 K/uL [facility] Blood 11/29/2017 10:5 2 AM EDT 11/29/2017 10:57 AM EDT us Artie Meehan MD LAB BLOOD BKR ORDERABLES Final Result [facility] [address] [place], [place] [id number] * (ABNORMAL) Lipid panel (11/29/2017 10:52 AM EDT) HDL 82 mg/dL [facility] Comment: Interpretation: Risk Level Females Decreased >55mg/dL Average 50-55 mg/dL Increased <50 mg/dL CHOLESTEROL 253(H) 0 - 240 mg/dL [facility] TRIGLYCERIDES 83 30 - 160 mg/dL [facility] LDL 154(H) 50 - 129 mg/dL [facility] Comment: LDL levels in terms of risk for coronary heart disease: <100 mg/dL: Optimal 100-129 mg/dL: Near or above optimal 130-159 mg/dL: Borderline high 160-189 mg/dL: High >190 mg/dL: Very High CARDIAC RISK RATIO 3.1(L) 3.3 - 4.4 C [facility] Blood 11/29/2017 10:5 2 AM EDT 11/29/2017 10:57 AM EDT Artie Meehan MD LAB BLOOD BKR ORDERABLES Final Result [address] [address] * Comprehensive metabolic panel (11/29/2017 10:52 AM EDT) SODIUM 145 133 - 146 mmol/L [facility] POTASSIUM 4.7 3.3 - 5.1 mmol/L [facility] CHLORIDE 104 96 - 108 mmol/L [facility] CO2 27 21 - 35 mmol/L [facility] BUN 17 6 - 19 mg/dL [facility] CREATININE 0.80 0.5 - 1.5 mg/dL [facility] GLUCOSE 86 70 - 99 mg/dL [facility] ALBUMIN 4.1 3.9 - 4.8 g/dL [facility] TOTAL PROTEIN 6.9 6.5 - 8.0 g/dL [facility] CALCIUM 9.2 8.4 - 10.3 mg/dL [facility] ALKALINE PHOSPHATASE 73 39 - 117 U/L [facility] TOTAL BILIRUBIN 0.5 0.0 - 1.2 mg/dL [facility] AST 19 0 - 37 U/L [facility] ALT 12 0 - 40 U/L [facility] GLOBULIN 2.8 1 - 4.8 g/dL [facility] EGFR 70 >59 mL/min/1.7 3m2 [facility] Comment:If patient is black, multiply result by 1.159. Estimated glomerular filtration rate calculated using the CKD-EPI equation. ANION GAP 19 10 - 20 mmol/L [facility] Blood 11/29/2017 10:5 2 AM EDT 11/29/2017 10:57 AM EDT Artie Meehan MD LAB BLOOD BKR ORDERABLES Final Result [facility] [address] [place] [address] documented in this encounter Visit Diagnoses Diagnosis Hypertension, essential- Primary Unspecified essential hypertension Abnormal colonoscopy documented in this encounter Additional Health Concerns Infection Onset Date Last Indicated Resolved Time CoV-Presumed 03/23/2022 03/23/2022 04/13/2022 1:23 AM EST CoV-Risk 11/12/2023 11/12/2023 11/12/2023 5:12 PM EDT COVID-19 11/12/2023 11/12/2023 12/03/2023 1:21 AM EDT documented as of this encounter Care Teams Tint Layer Relationship Specialty Start Date End Date Artie Meehan MD [address] [place] [address] PCP - General Internal Medicine 10/26/17 06/03/21 Laura Mock MD, DMD [address] [address] [email or web address] PCP - General Internal Medicine 06/04/21 11/11/23 Pcp, Unknown PCP - General 11/12/23 11/16/23 Laura Mock MD, DMD [address] [address] [email or web address] PCP - General Internal Medicine 11/17/23 12/28/23 Pcp, Unknown PCP - General 02/28/24 03/04/24 [place] [address] [address] PCP - General 03/05/24 05/17/24 Laura Mock MD, DMD [address] [address] [email or web address] PCP - General Internal Medicine 05/18/24 Artie Meehan MD [address] [place] [address] [place] [address] Internal Medicine 10/26/17 04/23/22 Rina Swenson MD [address] [place] [address] [place] [address] Psychiatry 07/09/17 Laura Mock MD, DMD [address] [address] [email or web address] [employer] Attributed Provider 09/01/21 07/03/23 Laura Mock MD, DMD [address] [address] [email or web address] Insurance Assigned Provider 05/31/23 03/01/24 Jakob Bob MD [address] [place] [address] [place] [address] [email or web address] Cardiology 08/22/23 Jose Cruz MD [address] [place] [address], [address] [place] [address] Cardiology 08/22/23 Laura Mock MD, DMD [address] [address] [email or web address] Attributed Provider 09/01/21 07/03/23 [facility] [phone]. Consulting Provider 08/22/23 [facility] Connect 12/24/23 03/11/24 Cyril Morales [facility] [place] [address] Nurse Practitioner 02/27/24 documented as of this encounter Additional Source Comments The information contained in this document represents components of the legal health record. It is not the complete legal health record.[facility]
--- OUTSIDE RECORDS SUMMARY | 2025-02-15 14:16 | XMS_ITS | Encounter Summary ---
Author Organization [facility] Address [address] [facility] [address] [place] [address] Phone Care Team Providers Care Parts Identification Technician Name Role Phone Artie Meehan MD Primary Care Provider [phone] Artie Meehan MD Unavailable [phone] Rina Swenson MD Unavailable Laura Mock MD, [...] st Contact Info) Description 05/15/2018 Procedure Pass [facility], [address] [address] Social History Tobacco Use Types Packs/Day Years [...] & [facility] Center st Contact Info) Description 03/08/2025 9:30 AM EST Pre-Admission Testing [address] [address] Irineo Ruff MD [address] [place] [address] [email or web address] 03/15/2025 Procedure Pass [facility] Endoscopy Department [address] [place] [address] 03/15/2025 7:30 AM EST Hospital Encounter [facility] Endoscopy Department [address] [place] [address] Irineo Ruff MD [address] [place] [address] [email or web address] 03/15/2025 7:30 AM EST - 03/15/2025 8:15 AM EST Surgery [facility] Endoscopy Department [address] [place] [address] Irineo Ruff MD [address] [place] [address] [email or web address] Scheduled Procedures Name Priority [...] as of this encounter Care Teams Parts Identification Technician Relationship Specialty Start Date End Date Artie Meehan MD [address] [place] [address] Dr Dior [facility] [place] [address] PCP - General Internal Medicine 10/26/17 06/03/21 Laura Mock MD, DMD [address] [address] [email or web address] PCP - General Internal Medicine 06/04/21 11/11/23 Pcp, Unknown PCP - General 11/12/23 11/16/23 Laura Mock MD, DMD [address] [address] [email or web address] PCP - General Internal Medicine 11/17/23 12/28/23 Pcp, Unknown PCP - General 02/28/24 03/04/24 [place] [address] [place] [address] PCP - General 03/05/24 05/17/24 Laura Mock MD, DMD [address] [address] [email or web address] PCP - General Internal Medicine 05/18/24 Artie Meehan MD [address] [place] [address] [place] [address] Internal Medicine 10/26/17 04/23/22 Rina Swenson MD [address] [place] [address] [place] [address] Psychiatry 07/09/17 Laura Mock MD, DMD [address] [address] [email or web address] [employer] Attributed Provider 09/01/21 07/03/23 Laura Mock MD, DMD [address] [address] [email or web address] Insurance Assigned Provider 05/31/23 03/01/24 Jakob Bob MD [address] [place] [address] [email or web address] Cardiology 08/22/23 Jose Cruz MD [address] [place] [address] Cardiology 08/22/23 Laura Mock MD, DMD [address] [address] [email or web address] [employer] Attributed Provider 09/01/21 07/03/23 [facility] [facility] [phone]. Consulting Provider 08/22/23 [facility] Connect 12/24/23 03/11/24 Cyril Morales [address] [place] [address] Nurse Practitioner 02/27/24 documented as of this encounter Additional Source Comments The information contained in this document represents components of the legal health record. It is not the complete legal health record.[facility]
--- OUTSIDE RECORDS SUMMARY | 2025-02-15 14:17 | XMS_ITS | Encounter Summary ---
Author Organization [facility] Address [address] [facility] [address] [place] [address] Phone Care Team Providers Care Java Application Engineer Name Role Phone Artie Meehan MD Primary Care Provider [phone] Artie Meehan MD Unavailable Rina Swenson MD Unavailable Laura Mock MD, DMD Primary Car e Provider Laura Mock MD, DMD Unavailable Laura Mock MD, DMD Unavailable Jakob Bob MD Unavailable [phone] Jose Cruz MD Unavailable Laura Mock MD, DMD Unavailable Pcp, Unknown Primary Care Provider UnavailLaura Ascencio MD, DMD Primary Car e Provider Pcp, Unknown Primary Care Provider UnavailNicole Arguello MD Primary Care Provide r Luara Mock MD, DMD Primary Car e Provider Encounter Details Date Type Department Care Team (Late st Contact Info) Description 12/24/2017 Procedure Pass [facility] [address] [place] [address] Social History Tobacco Use Types Packs/Day Years [...] 03/08/2025 9:30 AM EST Pre-Admission Testing [address] [address] Irineo Ruff MD [address] [place] [address] [email or web address] 03/15/2025 Procedure Pass [facility] Endoscopy Department [address] [place] [address] 03/15/2025 7:30 AM EST Hospital Encounter [facility] Endoscopy Department [address] [place] [address] Irineo Ruff MD [address] [place] [address] [email or web address] 03/15/2025 7:30 AM EST - 03/15/2025 8:15 AM EST Surgery [facility] Endoscopy Department [address] [place] [address] Irineo Ruff MD [address] [place] [address] [place] [address] [email or web address] Scheduled Procedures Name Priority Associated [...] as of this encounter Care Teams Java Application Engineer Relationship Specialty Start Date End Date Artie Meehan MD [address] [place] [address] PCP - General Internal Medicine 10/26/17 06/03/21 Laura Mock MD, DMD [address] [address] [email or web address] PCP - General Internal Medicine 06/04/21 11/11/23 Pcp, Unknown PCP - General 11/12/23 11/16/23 Laura Mock MD, DMD [address] [address] [email or web address] PCP - General Internal Medicine 11/17/23 12/28/23 Pcp, Unknown PCP - General 02/28/24 03/04/24 [place] [id number] [place] [address] PCP - General 03/05/24 05/17/24 Laura Mock MD, DMD [address] [address] [email or web address] du PCP - General Internal Medicine 05/18/24 Artie Meehan MD [address] [place] [address] Dr Dior [address] [place] [address] Internal Medicine 10/26/17 04/23/22 Rina Swenson MD [address] [place] [address] Dr Dior [address] [place] [address] Psychiatry 07/09/17 Laura Mock MD, DMD [address] [address] [email or web address] Partners Attributed Provider 09/01/21 07/03/23 Laura Mock MD, DMD [address] [address] [email or web address] du Insurance Assigned Provider 05/31/23 03/01/24 Jakob Bob MD [address] [place] [address] [address] [place] [address] [email or web address] Cardiology 08/22/23 Jose Cruz MD [address] [place] [address], [facility] [address] [place] [address] Cardiology 08/22/23 Laura Mock MD, DMD 1 [facility] [address] [place] [address] [email or web address] Partners Attributed Provider 09/01/21 07/03/23 [facility] [phone]. Consulting Provider 08/22/23 [facility] Connect 12/24/23 03/11/24 Cyril Morales [address] [place] [phone] Nurse Practitioner 02/27/24 documented as of this encounter Additional Source Comments The information contained in this document represents components of the legal health record. It is not the complete legal health record.[facility]
--- OUTSIDE RECORDS SUMMARY | 2025-02-15 14:17 | XMS_ITS | Encounter Summary ---
Author Organization [facility] Address [address] [facility] [address] [place] [address] Phone Care Team Providers Care Director Banking Name Role Phone Artie Meehan MD Primary Care Provider [phone] Artie Meehan MD Unavailable Rina Swenson MD Unavailable Laura Mock MD, DMD Primary Car e Provider Laura Mock MD, DMD Unavailable Laura Mock MD, DMD Unavailable Jakob Bob MD Unavailable [phone] Jose Cruz MD Unavailable Laura Mock MD, DMD Unavailable Pcp, Unknown Primary Care Provider UnavailLaura Ascencio MD, DMD Primary Car e Provider Pcp, Unknown Primary Care Provider UnavailNicole Arguello MD Primary Care Provide r Laura Mock MD, DMD Primary Car e Provider Encounter Details Date Type Department Care Team (Late st Contact Info) Description 01/06/2018 Procedure Pass [facility] [address] [place] [address] Social History Tobacco Use Types Packs/Day Years [...] Upcoming Encounters Date Type Department Care Team ([facility] st Contact Info) Description 03/08/2025 9:30 AM EST Pre-Admission Testing [facility] [address] [facility] [address]nd [place] [address] Irineo Ruff MD [address] [place] [address] [email or web address] 03/15/[address] [facility] Endoscopy Department [address] [place] [address] 03/15/2025 7:30 AM EST Hospital Encounter [facility] Endoscopy Department [address] [place] [address] Irineo Ruff MD [address] [place] [address] [email or web address] 03/15/2025 7:30 AM EST - 03/15/2025 8:15 AM EST Surgery [facility] Endoscopy Department [address] [place] [address] Irineo Ruff MD [address] [place] [address] [email or web address] [email or web address] Scheduled Procedures [...] as of this encounter Care Teams Director Banking Relationship Specialty Start Date End Date Artie Meehan MD [address] [place] [address] Dr D[address] [place] [address] PCP - General Internal Medicine 10/26/17 06/03/21 Laura Mock MD, DMD [address] [address] [email or web address] PCP - General Internal Medicine 06/04/21 11/11/23 Pcp, Unknown PCP - General 11/12/23 11/16/23 Laura Mock MD, DMD [address] [address] [email or web address] PCP - General Internal Medicine 11/17/23 12/28/23 Pcp, Unknown PCP - General 02/28/24 03/04/24 [place] [address] [place] [address] PCP - General 03/05/24 05/17/24 Laura Mock MD, DMD [address] [address] [email or web address] PCP - General Internal Medicine 05/18/24 Artie Meehan MD [address] [place] [address] [place] [address] Internal Medicine 10/26/17 04/23/22 Rina Swenson MD [address] [place] [address] [place] [address] Psychiatry 07/09/17 Laura Mock MD, DMD [address] [address] [email or web address] Attributed Provider 09/01/21 07/03/23 Laura Mock MD, DMD [address] [address] [email or web address] Insurance Assigned Provider 05/31/23 03/01/24 Jakob Bob MD [address] [place] [address] [email or web address] Cardiology 08/22/23 Jose Cruz MD [address] [place] [address] [email or web address] Cardiology 08/22/23 Laura Mock MD, DMD [address] [address] [email or web address] Partners Attributed Provider 09/01/21 07/03/23 [place] [facility] [facility] [phone]. Consulting Provider 08/22/23 [facility] Connect 12/24/23 03/11/24 Cyril Morales [address] [place] [phone] Nurse Practitioner 02/27/24 documented as of this encounter Additional Source Comments The information contained in this document represents components of the legal health record. It is not the complete legal health record.[facility]
--- OUTSIDE RECORDS SUMMARY | 2025-02-15 14:17 | XMS_ITS | Encounter Summary ---
Author Organization [facility] Address [address] [employer] [facility] [address] [place] [address] Phone Care Team Providers Care Necktie Operator Pockets And Pieces Name Role Phone Artie Meehan MD Primary Care Provider [phone] Artie Meehan MD Unavailable Rina Swenson MD [...] Daryn Moyer MD Phone: tel: fax: mailto:[email or web address] Referral ID Status Reason Start Date Expiration Date Visits Re quested Visits Authorized [id number] Closed 01/06/2018 01/06/2019 1 1 Encounter Details Date Type Department Care Team (Late st Contact Info) Description 01/06/2018 Transcribe Orders [facility] [address] [place] [address] Shira Mann [address] [place] [address] [email or web address] Social History Tobacco Use Types [...] Testing [facility] [address] [facility] 2nd [place] [address] Irineo Ruff MD 75 [facility] [place] [address] [email or web address] 03/15/2025 Procedure Pass [facility] Endoscopy Department [address] [place] [address] 03/15/2025 7:30 AM EST Hospital Encounter [facility] Endoscopy Department [address] [place] [address] Irineo Ruff MD [address] [place] [address] [place] [address] [email or web address] 03/15/2025 7:30 AM EST - 03/15/2025 8:15 AM EST Surgery [facility] Endoscopy Department [address] [place] [address] Irineo Ruff MD [address] [place] [address] [place] [address] [email or web address] Scheduled Procedures Name Priority Associated Diagnoses Date/Ti me COLONOSCOPY Abnormal colonoscopy 03/15/2025 7:30 AM EST documented as of this encounter Results * MRI Lower Extremity Outside (No Interpretation) (01/06/2018 11:46 AM EST) [facility]ative [facility] - 01/06/2018 11:46 AM EST This study is for PACS storage only and not for interpretation. us Daryn Moyer MD IMG OUTSIDE IMAGING W/OUT INT ERPRETATION Final Result [facility] documented in this encounter Visit Diagnoses Not on filedocumented in this encounter Additional Health Concerns Infection Onset Date Last Indicated Resolved Time CoV-Presumed 03/23/2022 03/23/2022 04/13/2022 1:23 AM EST CoV-Risk 11/12/2023 11/12/2023 11/12/2023 5:12 PM EDT COVID-19 11/12/2023 11/12/2023 12/03/2023 1:21 AM EDT documented as of this encounter Care Teams Necktie Operator Pockets And Pieces Relationship Specialty Start Date End Date Artie Meehan MD [address] [place] [address] [place] [address] PCP - General Internal Medicine 10/26/17 06/03/21 Laura Mock MD, DMD 1 [facility] [address] [place] [address] [email or web address] PCP - General Internal Medicine 06/04/21 11/11/23 Pcp, Unknown PCP - General 11/12/23 11/16/23 Laura Mock MD, DMD [address] [address] [email or web address] PCP - General Internal Medicine 11/17/23 12/28/23 Pcp, Unknown PCP - General 02/28/24 03/04/24 Nicole Newell MD [address] [place] [address] PCP - General 03/05/24 05/17/24 Laura Mock MD, DMD [address] [address] [email or web address] PCP - General Internal Medicine 05/18/24 Artie Meehan MD [address] [place] [address] [place] [address] Internal Medicine 10/26/17 04/23/22 Rina Swenson MD [address] [place] [address] [place] [address] Psychiatry 07/09/17 Laura Mock MD, DMD [address] [address] [email or web address] Attributed Provider 09/01/21 07/03/23 Laura Mock MD, DMD 1 [facility] [address] [place] [address] [email or web address] du Insurance Assigned Provider 05/31/23 03/01/24 Jakob Bob MD [address] [facility] [address] [place] [address] [email or web address] Cardiology 08/22/23 Jose Cruz MD [address] [place] [address], [address] [place] [address] [email or web address] Cardiology 08/22/23 Laura Mock MD, DMD [address] [address] [email or web address] Partners Attributed Provider 09/01/21 07/03/23 [place] [facility] [phone]. Consulting Provider 08/22/23 [facility] Connect 12/24/23 03/11/24 Cyril Morales [address] [place] [phone] Nurse Practitioner 02/27/24 documented as of this encounter Additional Source Comments The information contained in this document represents components of the legal health record. It is not the complete legal health record.[facility]
[2025-02-16 08:59] LABS: Prothrombin Time Whole Bld POC 34.3 sec (11.1-13.5); ~PT, ~INR - Anti Coag Clinic 2.9 (0.9-1.1)
== END 2025-02-15 13:32 | disposition home or self-care (01) ==
LOC: HO.ACS 13:09
PROVIDERS: PCP Internal Medicine; Visit Provider Internal Medicine Medical Oncology
DX: Z79.01 Long term (current) use of anticoagulants (principal)

== ENCOUNTER → 2025-02-15 13:09 | Outpatient (BNVA) | payer MEDICARE, SELFPAY | PROVIDERS: PCP Internal Medicine; Visit Provider Internal Medicine Medical Oncology | DX: Z79.01 Long term (current) use of anticoagulants (principal) | CPT/HCPCS: 85610; 99211 ==